=== PATIENT | female | born 1970 | race African-American/Black ===

== ENCOUNTER 2016-04-22 10:05 | Emergency (ER) | payer MEDICAID ==
[2016-04-22] MEDS ORDERED: OXYCODONE-ACETAMINOPHEN 5-325 MG TABLET PO ONE (11:41)
--- NOTE | 2016-04-22 11:43 | ER Document Report ---
HPI - HPI Patient complains to provider of: foot injury Onset: Other - 2 days ago Onset/Duration: Persistent Quality of pain: Sharp Pain Level: 5 Context: Patient states that she was playing around 2 days ago with family members and suspects that someone may have stepped on her foot. Patient states she had a bruise to her left great toe. Patient complains of pain with weightbearing. Associated Symptoms: Other - Left great toe pain Exacerbated by: Standing, Walking Relieved by: Denies Similar symptoms previously: No Recently seen / treated by doctor: No - ROS ROS below otherwise negative: Yes Systems Reviewed and Negative: Yes All other systems reviewed and negative - CONSTITUTIONAL Constitutional: DENIES: Fever, Chills - REPRODUCTIVE Reproductive: DENIES: : - MUSCULOSKELETAL Musculoskeletal: REPORTS: Extremity pain - Left great toe, Swelling - DERM Skin Color: Ecchymosis Past Medical History - General Information source: Patient - Social History Smoking Status: Never Smoker Frequency of alcohol use: Occasional Drug Abuse: None Occupation: none Lives with: Family Family History: Reviewed & Not Pertinent Patient has suicidal ideation: No Patient has homicidal ideation: No - Past Medical History Cardiac Medical History: Reports: Hx Congestive Heart Failure, Hx Heart Attack - 1-2 YRS AGO, Hx Hypercholesterolemia, Hx Hypertension - ON MEDS Pulmonary Medical History: Denies: Hx Asthma Neurological Medical History: Denies: Hx Cerebrovascular Accident, Hx Seizures Renal/ Medical History: Reports: Hx Renal Insufficiency. Denies: Hx Peritoneal Dialysis GI Medical History: Denies: Hx Hepatitis, Hx Hiatal Hernia, Hx Ulcer Psychiatric Medical History: Reports: Hx Anxiety, Hx Depression, Hx Schizophrenia Infectious Medical History: Denies: Hx Hepatitis Past Surgical History: Reports: Hx Cardiac Catheterization - multiple stents, Hx Cardiac Surgery - pacemaker, CABG, Hx Section, Hx Hysterectomy, Hx Open Heart Surgery - BYPASS 2006, Hx Pacemaker - X2, DEC 2013, Hx Tubal Ligation. Denies: Hx Mastectomy - Immunizations Hx Diphtheria, Pertussis, Tetanus Vaccination: Yes Hx Pneumococcal Vaccination: 04/04/12 Vertical Provider Document - CONSTITUTIONAL Agree With Documented VS: Yes Exam Limitations: No Limitations General Appearance: WD/WN, No Apparent Distress - INFECTION CONTROL TRAVEL OUTSIDE OF THE [place] IN LAST 30 DAYS: No - HEENT HEENT: Atraumatic, Normocephalic - NECK Neck: Normal Inspection - RESPIRATORY Respiratory: No Respiratory Distress O2 Sat by Pulse Oximetry: 97 - CARDIOVASCULAR Pulses: Normal: Dorsalis pedis - MUSCULOSKELETAL/EXTREMETIES Musculoskeletal/Extremeties: MAEW, Tender - Left great toe tenderness, left distal first metatarsal tenderness with 1+ edema and faint ecchymosis - NEURO Level of Consciousness: Awake, Alert, Appropriate Motor/Sensory: No Motor Deficit - DERM Integumentary: Warm, Dry Notes: Erythema involving left great toe Course - Vital Signs Vital signs: Temp Pulse Resp BP Pulse Ox 97.7 F 74 16 135/84 H 97 04/22/16 10:12 04/22/16 10:12 04/22/16 10:12 04/22/16 10:12 04/22/16 10:12 - Diagnostic Test Radiology reviewed: Image reviewed, Reports reviewed Procedures - Immobilization Left Foot Pre-Proc Neuro Vasc Exam: Normal Immobilizer type: Posterior ankle Performed by: PCT Post-Proc Neuro Vasc Exam: Normal Alignment checked and good: Yes Discharge - Discharge Clinical Impression: Fracture of proximal phalanx of toe of left foot Condition: Stable Disposition: HOME, SELF-CARE Instructions: Fractured Toe ([facility]), Splint Precautions ([facility]), Ice & Elevation ( [facility]), Use of Crutches ([facility]), Oral Narcotic Medication ([facility]) Additional Instructions: Return immediately for any new or worsening symptoms Followup with your primary care provider, call today to make a followup appointment, your primary doctor will need to make a referral to the orthopedic DrJessy for you. Follow up with orthopedic DrJessy for further evaluation, call tomorrow for an appointment Prescriptions: Oxycodone HCl/Acetaminophen [Percocet 5-325 mg Tablet] 1 tab PO ASDIR PRN #15 tablet PRN Reason: Referrals: YI SANCHEZ DO [Primary Care Provider] - Follow up tomorrow [facility] [Provider Group] - Follow up in 3-5 days
[2016-04-22 13:17] VITALS: BP 142/90
== END 2016-04-22 13:15 | disposition home or self-care (01) ==
LOC: ER 10:05
PROC: 2W3RX1Z Immobilization of Left Lower Leg using Splint (ICD-10-PCS; principal; 2016-04-22)
DX: S92.415A Nondisplaced fracture of proximal phalanx of left great toe, initial encounter for closed fracture (principal); X58.XXXA Exposure to other specified factors, initial encounter; I25.2 Old myocardial infarction; I10 Essential (primary) hypertension; Z98.61 Coronary angioplasty status; Z95.1 Presence of aortocoronary bypass graft
CPT/HCPCS: 99283

== ENCOUNTER 2016-10-17 08:01 | Emergency (ER) | payer MEDICAID ==
--- NOTE | 2016-10-17 08:33 | ER Document Report ---
ED Oral Problem - General Mode of Arrival: Ambulatory Information source: Patient TRAVEL OUTSIDE OF THE [place] IN LAST 30 DAYS: No - HPI Patient complains to provider of: Swelling of face, Toothache Onset: Other - Refer to HPI notes Context: Fractured tooth. denies: Recent antibiotic use Associated symptoms: Dental decay, Facial pain, Other - Facial swelling Similar symptoms previously: No Recently seen / treated by doctor/dentist: No - General Chief Complaint: Facial Swelling Stated Complaint: SWOLLEN FACE Time Seen by Provider: 10/17/16 08:35 - HPI Notes: Patient is a 45-year-old female presented emergency department for facial swelling. Patient states that she has some pain to her left upper jaw and teeth says she took a Tylenol and a muscle relaxer before bed. Patient states that she woke up this morning she had facial swelling and it was painful to move her mouth. Patient states that she also has a broken tooth to the left upper third molar. Patient states that she has a dentist, [facility], and she was last seen there 1 month ago. Patient states that since she has a cardiac history and they are awaiting approval for her to get dental work completed. (TADEO WOOD) - Related Data Allergies/Adverse Reactions: acetaminophen [From Vicodin] Allergy (Verified 10/17/16 08:05) egg [Egg] Allergy (Verified 10/17/16 08:05) hydrocodone [From Vicodin] Allergy (Verified 10/17/16 08:05) diphenhydramine HCl [From Benadryl] Adverse Reaction (Verified 10/17/16 08:05) chest pain, bigemeny rhythm Past Medical History - General Information source: Patient - Social History Smoking Status: Unknown if Ever Smoked Family History: None Patient has suicidal ideation: No Patient has homicidal ideation: No - Past Medical History Cardiac Medical History: Reports: Hx Congestive Heart Failure, Hx Heart Attack - 1-2 YRS AGO, Hx Hypercholesterolemia, Hx Hypertension - ON MEDS Renal/ Medical History: Reports: Hx Kidney Stones, Hx Renal Insufficiency Psychiatric Medical History: Reports: Hx Anxiety, Hx Depression, Hx Schizophrenia Past Surgical History: Reports: Hx Cardiac Catheterization - multiple stents, Hx Section, Hx Coronary Artery Bypass Graft - 2006, Hx Hysterectomy, Hx Pacemaker - , DEC 2013, Hx Tubal Ligation - Immunizations Hx Diphtheria, Pertussis, Tetanus Vaccination: Yes Hx Pneumococcal Vaccination: 04/04/12 Review of Systems - Review of Systems Constitutional: No symptoms reported EENT: See HPI, Mouth pain, Dental problem, Other - facial swelling Cardiovascular: No symptoms reported Respiratory: No symptoms reported Gastrointestinal: No symptoms reported Genitourinary: No symptoms reported Female Genitourinary: No symptoms reported Musculoskeletal: No symptoms reported Skin: No symptoms reported Hematologic/Lymphatic: No symptoms reported Neurological/Psychological: No symptoms reported -: Yes All other systems reviewed and negative Physical Exam - Vital signs Interpretation: Hypertensive - Vital signs Vitals: Temp Pulse Resp BP Pulse Ox 98.8 F 77 24 H 147/91 H 98 10/17/16 08:05 10/17/16 08:05 10/17/16 08:05 10/17/16 08:05 10/17/16 08:05 - Notes Notes: GENERAL: Alert, interacts well. Mild distress. HEAD: Normocephalic, atraumatic. Facial swelling and tenderness with palpation to the left maxillary facial region. No fluctuance or firmness. EYES: Appear normal. Pupils equal, round, and reactive to light. ENT: Moist mucus membranes, tongue midline. 1st, 2nd and 3rd left upper molars are tender with percussion. There is no sign of an abscess cavity. 3rd left upper molar is fractured with decay. There is no sign of abscess or drainable collection seen. NECK: Full range of motion. Supple. Trachea midline. LUNGS: No respiratory distress. HEART: Regular rate. EXTREMITIES: Moves all 4 extremities spontaneously. Normal strength. No edema. NEUROLOGICAL: Alert and oriented x3. Normal speech. No focal neurological deficits. GSC 15. PSYCH: Normal affect, normal mood. SKIN: Warm, dry, normal turgor. (EDGREN,TADEO) - Vital Signs Vital signs: Temp Pulse Resp BP Pulse Ox 98.2 F 77 17 140/90 H 96 10/17/16 09:00 10/17/16 08:05 10/17/16 08:51 10/17/16 08:52 10/17/16 08:52 Discharge - Discharge Clinical Impression: Dental decay, Toothache Condition: Stable Disposition: HOME, SELF-CARE Additional Instructions: Dental Infection or Abscess: You have an infection, perhaps an abscess (pus formation) of the gum around one of your teeth, which is probably decayed. If there is an abscess, it may drain on its own or it may need to be opened or lanced. Severe swelling or drainage around a tooth usually means a deep dental abscess which usually requires evaluation and treatment by a dentist or oral surgeon. Antibiotics may be prescribed while awaiting dental treatment. If you develop high fever with chills, worsening pain, or increasing swelling in the area, see a dentist or oral surgeon immediately or return to the Emergency Department immediately. TAKE THE MEDICATION PRESCRIBED. FOLLOW UP WITH YOUR DENTIST THIS WEEK. RETURN TO THE EMERGENCY ROOM IF ANY NEW OR WORSENING SYMPTOMS. Prescriptions: Oxycodone HCl/Acetaminophen [Percocet 5-325 mg Tablet] 1 tab PO ASDIR PRN #15 tablet PRN Reason: Penicillin V Potassium [Penicillin Vk 500 mg Tablet] 500 mg PO QID #28 tablet Scribe Attestation: 10/17/16 08:42 I personally performed the services described in the documentation, reviewed and edited the documentation which was dictated to the scribe in my presence, and it accurately records my words and actions. (PRATIBHA CARTY) Scribe Documentation - Scribe Written by Manuel:: Manuel Sky 10/17/2016 09:34 acting as scribe for :: Ron
[2016-10-17] MEDS ORDERED: PENICILLIN V POTASSIUM 500 MG TABLET PO ONE (08:38)
[2016-10-17] MEDS ORDERED: OXYCODONE-ACETAMINOPHEN 5-325 MG TABLET PO ONE (08:38)
[2016-10-17 09:03] VITALS: BP 140/90
== END 2016-10-17 09:00 | disposition home or self-care (01) ==
LOC: ER 08:01
DX: K02.9 Dental caries, unspecified (principal); K08.89 Other specified disorders of teeth and supporting structures; R22.0 Localized swelling, mass and lump, head; I25.2 Old myocardial infarction; I10 Essential (primary) hypertension; Z88.5 Allergy status to narcotic agent; Z91.012 Allergy to eggs
CPT/HCPCS: 99283; J3490

== ENCOUNTER → 2017-05-31 | Outpatient (CLI) | payer MEDICAID ==
--- NOTE | 2017-05-31 20:39 | RADIOLOGY REPORT (SQ) ---
EXAM DESCRIPTION: ANKLE RIGHT COMPLETE COMPLETED DATE/TIME: 05/31/2017 8:21 pm REASON FOR STUDY: ACUTE RIGHT ANKLE PAIN COMPARISON: None. NUMBER OF VIEWS: Three views. TECHNIQUE: AP, lateral, and oblique radiographic images acquired of the right ankle. LIMITATIONS: None. FINDINGS: MINERALIZATION: Normal. BONES: No acute fracture or dislocation. No worrisome bone lesions. JOINTS: No effusions. SOFT TISSUES: Soft tissue swelling. OTHER: No other significant finding. IMPRESSION: Soft tissue swelling. No acute fracture. TECHNICAL DOCUMENTATION: JOB ID: [id number] [employer]- All Rights Reserved Reading location - IP/workstation name: [email or web address]
== END ==
LOC: RAD 19:32
PROVIDERS: ATTEND Nurse Practitioner Family
DX: M25.571 Pain in right ankle and joints of right foot (principal); M79.89 Other specified soft tissue disorders

== ENCOUNTER 2017-06-19 06:46 | Emergency (ER) | payer MEDICAID ==
[2017-06-19] MEDS ORDERED: LORAZEPAM INJ 2 MG/1 ML VIAL ONE (06:52)
[2017-06-19] MEDS ORDERED: FUROSEMIDE INJ/PF 40 MG/4 ML SDV ONE ×2 (06:53→07:55)
[2017-06-19] MEDS ORDERED: IPRATROPIUM/ALBUTEROL 0.5-2.5 MG/3 ML AMPUL NEB ONE (06:53)
[2017-06-19] MEDS ORDERED: ETOMIDATE INJ/PF 20 MG/10 ML SDV IV ONE (07:00)
[2017-06-19] MEDS ORDERED: KETAMINE HCL INJ 500 MG/10 ML VIAL ONE (07:02)
[2017-06-19] MEDS ORDERED: AMIODARONE HCL INJ 150 MG/3 ML VIAL IV ONE ×2 (07:10→08:21)
[2017-06-19] MEDS ORDERED: FENTANYL CITRATE INJ/PF 100 MCG/2 ML AMPUL ONE ×3 (07:10→08:53)
[2017-06-19] MEDS ORDERED: PROPOFOL 100 ML IV ONE (07:45)
[2017-06-19] MEDS ORDERED: FUROSEMIDE INJ/PF 40 MG/4 ML SDV IV ONE (07:50)
[2017-06-19] MEDS ORDERED: ASPIRIN 300 MG SUPP, RECTAL PR ONE (07:54)
[2017-06-19] MEDS ORDERED: NITROGLYCERIN 2% OINTMENT 1 GM PACKET ONE (07:56)
[2017-06-19 08:03] LABS: ALANINE AMINOTRANSFERASE 81 U/L (9-52); ALBUMIN 4.7 g/dL (3.5-5.0); ALKALINE PHOSPHATASE 126 U/L (38-126); ANION GAP 19 (5-19); ASPARTATE AMINO TRANSFERASE 90 U/L (14-36); BILIRUBIN,DIRECT 0.6 mg/dL (0.0-0.4); BILIRUBIN,TOTAL 0.9 mg/dL (0.2-1.3); BLOOD UREA NITROGEN 21 mg/dL (7-20); CALCIUM 10.1 mg/dL (8.4-10.2); CARBON DIOXIDE 21 mmol/L (22-30); CHLORIDE 112 mmol/L (98-107); CREATINE KINASE 180 U/L (30-135); GLUCOSE 196 mg/dL (75-110); LIPASE 228.2 U/L (23-300); POTASSIUM 4.5 mmol/L (3.6-5.0); SODIUM 151.8 mmol/L (137-145); TOTAL PROTEIN 7.8 g/dL (6.3-8.2)
[2017-06-19 08:05] LABS: PROTHROMBIN TIME 13.7 SEC (11.4-15.4)
[2017-06-19 08:13] LABS: ABSOLUTE BASOPHILS # (AUTO) 0.1 10^3/uL (0.0-0.2); ABSOLUTE LYMPHOCYTES (AUTO) 5.4 10^3/uL (0.5-4.7); ABSOLUTE MONOCYTES (AUTO) 0.6 10^3/uL (0.1-1.4); ABSOLUTE NEUT (AUTO) 8.4 10^3/uL (1.7-8.2); BASOPHILS % (AUTO) 0.4 % (0-2); EOSINOPHILS % (AUTO) 0.2 % (0-6); HEMATOCRIT 43.4 % (36.0-47.0); HEMOGLOBIN 14.4 g/dL (12.0-15.5); LYMPHOCYTES % (AUTO) 37.3 % (13-45); MEAN CORPUSCULAR HEMOGLOBIN 32.2 pg (27.0-33.4); MEAN CORPUSCULAR HGB CONC 33.1 g/dL (32.0-36.0); MEAN CORPUSCULAR VOLUME 98 fl (80-97); MONOCYTES % (AUTO) 4.3 % (3-13); PLATELET COUNT 313 10^3/uL (150-450); RED BLOOD COUNT 4.46 10^6/uL (3.72-5.28); RED CELL DISTRIBUTION WIDTH 14.8 % (11.5-14.0); SEGMENTED NEUTROPHILS % (AUTO) 57.8 % (42-78); TOTAL CELLS COUNTED % (AUTO) 100 %; WHITE BLOOD COUNT 14.6 10^3/uL (4.0-10.5)
[2017-06-19 08:15] LABS: CREATINE KINASE MB 1.46 ng/mL (<4.55)
--- NOTE | 2017-06-19 08:15 | RADIOLOGY REPORT (SQ) ---
EXAM DESCRIPTION: CHEST SINGLE VIEW COMPLETED DATE/TIME: 06/19/2017 7:58 am REASON FOR STUDY: intubation COMPARISON: 10/28/2015 NUMBER OF VIEWS: One view. TECHNIQUE: Single frontal radiographic view of the chest acquired. LIMITATIONS: None. FINDINGS: LUNGS AND PLEURA: Diffuse interstitial and alveolar opacities with bilateral pleural effus ions. MEDIASTINUM AND HILAR STRUCTURES: No masses or contour abnormality. HEART AND VASCULATURE: Cardiac enlargement. Vascular congestion. BONES: No acute findings. HARDWARE: Patient is status post CABG with median sternotomy wires. Cardiac AICD in place. OTHER: No other significant finding. IMPRESSION: DIFFUSE INTERSTITIAL AND ALVEOLAR OPACITIES WITH BILATERAL PLEURAL EFFUSIONS PRESUMABLY REPRESENTS ASYMMETRIC PULMONARY EDEMA. MULTIFOCAL PNEUMONIA COULD HAVE A SIMILAR APPEARANCE. HIGH POSITION ENDOTRACHEAL TUBE 10 CM ABOVE THE AILYN. RECOMMEND ADVANCING AT LEAST 5 CM. TECHNICAL DOCUMENTATION: JOB ID: [id number] [employer]- All Rights Reserved Reading location - IP/workstation name: [email or web address]
[2017-06-19 08:17] LABS: TROPONIN I 0.051 ng/mL
--- NOTE | 2017-06-19 08:17 | RADIOLOGY REPORT (SQ) ---
EXAM DESCRIPTION: KUB/ABDOMEN (SINGLE VIEW) COMPLETED DATE/TIME: 06/19/2017 7:58 am REASON FOR STUDY: POST INTUBATION, NG TUBE PLACEMENT COMPARISON: 03/20/2013 NUMBER OF VIEWS: One view. TECHNIQUE: Supine radiographic image of the abdomen acquired. LIMITATIONS: LIMITED FIELD OF VIEW COVERING UPPER ABDOMEN. FINDINGS: Again seen are bilateral pleural effusions with associated airspace disease presumably rep resenting atelectasis. No nasogastric tube is visualized. Opacity of bowel gas. Soft tissue organ outlines are grossly normal as visualized. IMPRESSION: LIMITED FIELD OF VIEW OF THE UPPER ABDOMEN. A NASOGASTRIC TUBE IS NOT VISUALIZED. NEYDA AZAR WITH CLINICAL HISTORY AND PHYSICAL EXAM. TECHNICAL DOCUMENTATION: JOB ID: [id number] [employer]- All Rights Reserved Reading location - IP/workstation name: [email or web address]
--- NOTE | 2017-06-19 08:35 | RADIOLOGY REPORT (SQ) ---
EXAM DESCRIPTION: CHEST SINGLE VIEW COMPLETED DATE/TIME: 06/19/2017 8:23 am REASON FOR STUDY: NG PLACEMENT, ETT PLACEMENT COMPARISON: 06/19/2017 EXAM PARAMETERS: NUMBER OF VIEWS: One view. TECHNIQUE: Single frontal radiographic view of the chest acquired. RADIATION DOSE: NA LIMITATIONS: None. FINDINGS: LUNGS AND PLEURA: Stable diffuse interstitial and alveolar opacities with bilateral pleura l effusions. MEDIASTINUM AND HILAR STRUCTURES: Stable. HEART AND VASCULAR STRUCTURES: Stable. BONES: No acute findings. HARDWARE: Endotracheal tube remains at least 10 cm above the bruna. Nasogastric tube is coiled in t he oropharynx. OTHER: No other significant finding. IMPRESSION: STABLE DIFFUSE INTERSTITIAL ALVEOLAR OPACITIES WITH BILATERAL PLEURAL EFFUSIONS PRESUMAB LY REPRESENTING PULMONARY EDEMA. SUPERIMPOSED PNEUMONIA IS NOT EXCLUDED. ENDOTRACHEAL TUBE REMAINS HIGH. ADVANCEMENT IS AGAIN RECOMMENDED. NASOGASTRIC TUBE IS COILED IN THE OROPHARYNX. RECOMMEND REPLACEMENT. TECHNICAL DOCUMENTATION: JOB ID: [id number] [employer]- All Rights Reserved Reading location - IP/workstation name: [email or web address]
[2017-06-19] MEDS ORDERED: NOREPINEPHRINE BITARTRATE INJ/PF 4 MG/4 ML SDV IV ONE (08:52)
--- NOTE | 2017-06-19 09:26 | ER Document Report ---
ED General - General Chief Complaint: Shortness Of Breath Stated Complaint: OTHER Time Seen by Provider: 06/19/17 07:46 Mode of Arrival: Medic Information source: Patient Notes: 46-year-old female with a history of CHF, CAD requiring CABG, multiple stents, pacemaker and AICD presents via EMS with respiratory distress after experiencing a shock by her AICD. Patient states that she was having a bowel movement when she felt a shock. She called EMS who found the patient hypoxic, short of breath. Upon patient's arrival she is diaphoretic, uncooperative, combative. Patient admits to recent URI. TRAVEL OUTSIDE OF THE [place] IN LAST 30 DAYS: No - HPI Onset: Just prior to arrival Onset/Duration: Sudden - I would like a [place] Quality of pain: Pressure Severity: Moderate Associated symptoms: Shortness of breath, Sweating - Related Data Allergies/Adverse Reactions: acetaminophen [From Vicodin] Allergy (Verified 10/17/16 08:05) egg [Egg] Allergy (Verified 10/17/16 08:05) hydrocodone [From Vicodin] Allergy (Verified 10/17/16 08:05) diphenhydramine HCl [From Benadryl] Adverse Reaction (Verified 10/17/16 08:05) chest pain, bigemeny rhythm Past Medical History - General Information source: Patient, H Records - Social History Smoking Status: Unknown if Ever Smoked Frequency of alcohol use: Occasional Drug Abuse: Marijuana Lives with: Family Family History: None Patient has suicidal ideation: No Patient has homicidal ideation: No - Past Medical History Cardiac Medical History: Reports: Hx Congestive Heart Failure, Hx Heart Attack - 1-2 YRS AGO, Hx Hypercholesterolemia, Hx Hypertension - ON MEDS Pulmonary Medical History: Denies: Hx Asthma Neurological Medical History: Denies: Hx Cerebrovascular Accident, Hx Seizures Renal/ Medical History: Reports: Hx Kidney Stones, Hx Renal Insufficiency. Denies: Hx Peritoneal Dialysis GI Medical History: Denies: Hx Hepatitis, Hx Hiatal Hernia, Hx Ulcer Psychiatric Medical History: Reports: Hx Anxiety, Hx Depression, Hx Schizophrenia Infectious Medical History: Denies: Hx Hepatitis Past Surgical History: Reports: Hx Cardiac Catheterization - multiple stents, Hx Cardiac Surgery - pacemaker, CABG, Hx Section, Hx Coronary Artery Bypass Graft - 2006, Hx Hysterectomy, Hx Open Heart Surgery - BYPASS 2006, Hx Pacemaker - , DEC 2013, Hx Tubal Ligation. Denies: Hx Mastectomy - Immunizations Hx Diphtheria, Pertussis, Tetanus Vaccination: Yes Hx Pneumococcal Vaccination: 04/04/12 Review of Systems - Review of Systems Notes: Patient was in respiratory distress and diaphoretic upon arrival. Unable to complete full review of systems before patient required intubation. -: Yes ROS unobtainable due to patient's medical condition Constitutional: No symptoms reported EENT: No symptoms reported Cardiovascular: Chest pain Respiratory: Short of breath Gastrointestinal: No symptoms reported Genitourinary: No symptoms reported Female Genitourinary: No symptoms reported Musculoskeletal: No symptoms reported Skin: No symptoms reported Hematologic/Lymphatic: No symptoms reported Neurological/Psychological: No symptoms reported Physical Exam - Vital signs Vitals: Resp Pulse Ox 42 H 85 L 06/19/17 06:46 06/19/17 06:46 Interpretation: Normal, Hypertensive, Tachycardic - Notes Notes: PHYSICAL EXAMINATION: GENERAL: Diaphoretic, respiratory distress, combative, uncooperative. HEAD: Atraumatic, normocephalic. EYES: Pupils equal round and reactive to light, extraocular movements intact, conjunctiva are normal. ENT: Nares patent, oropharynx clear without exudates. Moist mucous membranes. NECK: Normal range of motion, supple without lymphadenopathy LUNGS: Diminished breath sounds with associated rales throughout all lung pena. HEART: Tachycardic. ABDOMEN: Soft, nontender, nondistended abdomen. No guarding, no rebound. No masses appreciated. Female : deferred Musculoskeletal: Normal range of motion, no pitting or edema. No cyanosis. NEUROLOGICAL: Cranial nerves grossly intact. Normal speech, normal gait. Normal sensory, motor exams PSYCH: Agitated, combative, uncooperative. SKIN: Diaphoretic Course - Re-evaluation Re-evalutation: Laboratory 06/19/17 06/19/17 06/19/17 06:52 06:52 06:52 WBC 14.6 H RBC 4.46 Hgb 14.4 Hct 43.4 MCV 98 H MCH 32.2 MCHC 33.1 RDW 14.8 H Plt Count 313 Seg Neutrophils % 57.8 Lymphocytes % 37.3 Monocytes % 4.3 Eosinophils % 0.2 Basophils % 0.4 Absolute Neutrophils 8.4 H Absolute Lymphocytes 5.4 H Absolute Monocytes 0.6 Absolute Eosinophils 0.0 Absolute Basophils 0.1 PT 13.7 Cancelled INR 1.00 Cancelled Sodium Potassium Chloride Carbon Dioxide Anion Gap BUN Creatinine Est GFR ( Amer) Est GFR (Non-Af Amer) Glucose Calcium Total Bilirubin Direct Bilirubin Neonat Total Bilirubin Neonat Direct Bilirubin Neonat Indirect Bili AST ALT Alkaline Phosphatase Creatine Kinase CK-MB (CK-2) Troponin I NT-Pro-B Natriuret Pep Total Protein Albumin Lipase Urine HCG, Qual 06/19/17 06/19/17 06/19/17 06:52 06:52 08:28 WBC RBC Hgb Hct MCV MCH MCHC RDW Plt Count Seg Neutrophils % Lymphocytes % Monocytes % Eosinophils % Basophils % Absolute Neutrophils Absolute Lymphocytes Absolute Monocytes Absolute Eosinophils Absolute Basophils PT INR Sodium 151.8 H Potassium 4.5 Chloride 112 H Carbon Dioxide 21 L Anion Gap 19 BUN 21 H Creatinine 1.43 H Est GFR ( Amer) 48 L Est GFR (Non-Af Amer) 40 L Glucose 196 H Calcium 10.1 Total Bilirubin 0.9 Direct Bilirubin 0.6 H Neonat Total Bilirubin Not Reportable Neonat Direct Bilirubin Not Reportable Neonat Indirect Bili Not Reportable AST 90 H ALT 81 H Alkaline Phosphatase 126 Creatine Kinase 180 H CK-MB (CK-2) 1.46 Troponin I 0.051 NT-Pro-B Natriuret Pep 2430 H Total Protein 7.8 Albumin 4.7 Lipase 228.2 Urine HCG, Qual NEGATIVE KUB X-Ray 06/19/17 00:00 IMPRESSION: LIMITED FIELD OF VIEW OF THE UPPER ABDOMEN. A NASOGASTRIC TUBE IS NOT VISUALIZED. CORRELATE WITH CLINICAL HISTORY AND PHYSICAL EXAM. Chest X-Ray 06/19/17 07:48 IMPRESSION: DIFFUSE INTERSTITIAL AND ALVEOLAR OPACITIES WITH BILATERAL PLEURAL EFFUSIONS PRESUMABLY REPRESENTS ASYMMETRIC PULMONARY EDEMA. MULTIFOCAL PNEUMONIA COULD HAVE A SIMILAR APPEARANCE. HIGH POSITION ENDOTRACHEAL TUBE 10 CM ABOVE THE AILYN. RECOMMEND ADVANCING AT LEAST 5 CM. 06/19/17 09:26 46-year-old female with history of congestive heart failure, coronary artery disease with a pacemaker and AICD presented via EMS after feeling her AICD fire while having a bowel movement this morning. Upon arrival patient is in respiratory distress, diaphoretic. She is uncooperative with exam and is agitated and requires multiple hands to get her back onto the stretcher. Patient was placed on tennis instructor where her rhythm showed a wide complex tachycardia at a rate of 168. Defib pads placed on the patient. 150 mg of amiodarone was administered. Patient's heart rate lowered to 110-120 after this. Patient unable to tolerate BiPAP. Intubation initiated and completed with glide scope, 7.5 ET tube. Patient was administered 200 mg of ketamine and 50 mg of rocuronium for RSI. Intubation sedation included propofol and intermittent fentanyl pushes. Lasix 80 mg was administered. Nitropaste was placed but patient had a dramatic decrease in blood pressure and this was then removed, and propofol drip decreased. X-ray showed ET tube required advancement which was done and repeat chest x-ray shows appropriate positioning. Patient had another dramatic drop in blood pressure at which point Levophed was started. Patient will be transferred to [facility]. Accepting physician is Dr. Mcintyre and Dr Doll. 06/19/17 10:30 Patient reevaluated prior to air transport. Report given to flight nurse. Patient's outgoing vitals include a heart rate of 74 and O2 saturation of 96% and a blood pressure of 90/60. - Vital Signs Vital signs: Temp Pulse Resp BP Pulse Ox 108 H 24 H 141/98 H 86 L 06/19/17 12:50 06/19/17 12:50 06/19/17 12:50 06/19/17 12:50 - Laboratory Result Diagrams: 06/19/17 06:52 06/19/17 06:52 Laboratory results interpreted by me: 06/19/17 06/19/17 06/19/17 06:52 06:52 06:52 WBC 14.6 H MCV 98 H RDW 14.8 H Absolute Neutrophils 8.4 H Absolute Lymphocytes 5.4 H Sodium 151.8 H Chloride 112 H Carbon Dioxide 21 L BUN 21 H Creatinine 1.43 H Est GFR ( Amer) 48 L Est GFR (Non-Af Amer) 40 L Glucose 196 H Direct Bilirubin 0.6 H AST 90 H ALT 81 H Creatine Kinase 180 H NT-Pro-B Natriuret Pep 2430 H - Diagnostic Test Radiology reviewed: Image reviewed, Reports reviewed - EKG Interpretation by Me Rate: Tachycardia Rhythm: V.Tach Procedures - Intubation Orotracheal Time of Intubation: 07:00 Airway evaluation: Normal anatomy Mallampati Classification: Class 2 Medications: Ketamine, Other - rocuronium Intubation method: Orotracheal Blade type: Other - MAC 3 glide Equipment used: Glidescope ETT size: 7.5 ETT secured at: Lips Breath Sounds after Intubation: Equal End tidal CO2 confirmed: No Ventilator settings: AC Tidal volume: 600 FiO2: 100 Respirations: 12 PEEP: 8 Post Intubation Xray: Yes Intubation Complications: No complications Critical Care Note - Critical Care Note Total time excluding time spent on procedures (mins): 60 - minutes of critical care time spent in direct contact evaluating and reevaluating the patient, treating symptoms, reviewing labs and studies and speaking with family and consultants excluding any procedures Discharge - Discharge Clinical Impression: Ventricular tachycardia, Elevated troponin, Acute on chronic systolic congestive heart failure Respiratory failure Qualifiers: Chronicity: acute Respiratory failure complication: hypoxia Qualified Code(s): J96.01 - Acute respiratory failure with hypoxia Pulmonary edema Qualifiers: Chronicity: acute Qualified Code(s): J81.0 - Acute pulmonary edema Condition: Critical Disposition: [facility]
--- NOTE | 2017-06-19 09:32 | EKG REPORT ---
SEVERITY:- ABNORMAL ECG - VENTRICULAR-PACED COMPLEXES LVH WITH IVCD, LAD AND SECONDARY REPOL ABNRM : Confirmed by: Verna Frederick 19-Jun-2017 09:31:49
--- NOTE | 2017-06-19 09:34 | EKG REPORT ---
SEVERITY:- ABNORMAL ECG - SINUS TACHYCARDIA VS A-FLUTTER W/ PREDOM 2:1 AV BLOCK VENTRICULAR PREMATURE COMPLEXES ABERRANT COMPLEX, POSSIBLY SUPRAVENTRICULAR INCOMPLETE LEFT BUNDLE BRANCH BLOCK ANTERIOR INFARCT, AGE INDETERMINATE : Confirmed by: Verna Frederick 19-Jun-2017 09:33:52
--- NOTE | 2017-06-19 09:42 | RADIOLOGY REPORT (SQ) ---
EXAM DESCRIPTION: CHEST SINGLE VIEW COMPLETED DATE/TIME: 06/19/2017 9:20 am REASON FOR STUDY: ETT AND NG TUBE ADJUSTMENT COMPARISON: None. EXAM PARAMETERS: NUMBER OF VIEWS: One view. TECHNIQUE: Single frontal radiographic view of the chest acquired. RADIATION DOSE: NA LIMITATIONS: None. FINDINGS: LUNGS AND PLEURA: Stable diffuse interstitial and alveolar opacities with bilateral pleura l effusions. MEDIASTINUM AND HILAR STRUCTURES: No masses. Contour normal. HEART AND VASCULAR STRUCTURES: Stable. BONES: No acute findings. HARDWARE: Interval advancement of endotracheal tube terminating approximately 5 cm above the bruna. Nasogastric tube now terminates within the expected location of the stomach. Hardware otherwise sta ble. OTHER: No other significant finding. IMPRESSION: SATISFACTORY POSITION OF ENDOTRACHEAL TUBE AND NASOGASTRIC TUBE ABOVE. OTHERWISE STA BLE APPEARANCE OF THE CHEST. TECHNICAL DOCUMENTATION: JOB ID: [id number] [employer]- All Rights Reserved Reading location - IP/workstation name: [email or web address]
[2017-06-19] MEDS ORDERED: ROCURONIUM BROMIDE INJ 50 MG/5 ML VIAL IV ONE ×2 (12:31→16:33)
[2017-06-19 12:51] VITALS: BP 141/98
[2017-06-19] MEDS ORDERED: DEXTROSE 5%-WATER 500 ML with AMIODARONE HCL 900 MG IV PRN ×2 (16:10)
== END 2017-06-19 10:57 | disposition short-term general hospital (02) ==
LOC: ER 06:46
DX: I11.0 Hypertensive heart disease with heart failure (principal); I50.23 Acute on chronic systolic (congestive) heart failure; J96.01 Acute respiratory failure with hypoxia; J81.0 Acute pulmonary edema; I47.2 Ventricular tachycardia; I25.10 Atherosclerotic heart disease of native coronary artery without angina pectoris; I25.2 Old myocardial infarction; F12.10 Cannabis abuse, uncomplicated; R74.8 Abnormal levels of other serum enzymes; Z95.1 Presence of aortocoronary bypass graft; Z98.61 Coronary angioplasty status; Z95.810 Presence of automatic (implantable) cardiac defibrillator; Z88.6 Allergy status to analgesic agent; Z91.012 Allergy to eggs; Z88.5 Allergy status to narcotic agent
CPT/HCPCS: 93005; 96376; 94640; 99291; 51702; 96375; 96365; 96366; 36415; 82553; 82962; 82550; 83690; 85025; 85610; 81025; 80053; 84484; 83880; 71045; 74018; 93010; 94660; 31500; J3490 ×4; J3010; J1940; J2704; J2060; J0282; J7620

== ENCOUNTER 2017-08-26 01:50 | Emergency (ER) | payer MEDICAID ==
[2017-08-26] MEDS ORDERED: FUROSEMIDE INJ/PF 40 MG/4 ML SDV ONE (01:56)
[2017-08-26] MEDS ORDERED: NITROGLYCERIN/D5W 50 MG/250 ML RTUINJ IV ONE (01:56)
[2017-08-26] MEDS ORDERED: PROPOFOL 1,000 MG/100 ML INFUS..BTL IV ONE ×2 (02:48→04:58)
[2017-08-26] MEDS: PROPOFOL 1,000 MG/100 ML INFUS..BTL IV PRN ×2 (02:55→03:32)
[2017-08-26 03:07] LABS: ARTERIAL BLOOD BASE EXCESS -11.4 mmol/L; ARTERIAL BLOOD H2CO3 1.36 mmol/L (1.05-1.35); ARTERIAL BLOOD HCO3 16.7 mmol/L (20-26); ARTERIAL BLOOD O2 SATURATION 89.2 % (94-98); ARTERIAL BLOOD PCO2 45.3 mmHg (35-45); ARTERIAL BLOOD PO2 68.6 mmHg (80-100); ARTERIAL BLOOD TOTAL CO2 18.1 mmol/L (21-25)
[2017-08-26 03:10] LABS: ARTERIAL BLOOD FIO2 100%
[2017-08-26 03:11] LABS: ARTERIAL BLOOD PH 7.18 (7.35-7.45)
[2017-08-26] MEDS ORDERED: SODIUM BICARBONATE 8.4% INJ 50 MEQ/50 ML DISP.SYRIN ONE (03:14)
[2017-08-26] MEDS: NITROGLYCERIN/D5W 50 MG/250 ML RTUINJ IV PRN ×2 (03:25→03:32)
[2017-08-26 03:32] LABS: HEMATOCRIT 40.9 % (36.0-47.0); HEMOGLOBIN 13.8 g/dL (12.0-15.5); MEAN CORPUSCULAR HEMOGLOBIN 32.1 pg (27.0-33.4); MEAN CORPUSCULAR HGB CONC 33.7 g/dL (32.0-36.0); MEAN CORPUSCULAR VOLUME 96 fl (80-97); PLATELET COUNT 391 10^3/uL (150-450); RED BLOOD COUNT 4.28 10^6/uL (3.72-5.28); RED CELL DISTRIBUTION WIDTH 14.6 % (11.5-14.0); WHITE BLOOD COUNT 21.2 10^3/uL (4.0-10.5)
--- NOTE | 2017-08-26 03:40 | RADIOLOGY REPORT (SQ) ---
EXAM DESCRIPTION: XR CHEST 1 VIEW COMPLETED DATE/TME: 08/26/2017 02:16 CLINICAL HISTORY: SOB COMPARISON: 06/19/2017 FINDINGS: Single frontal view of the chest. Prior median sternotomy. Left-sided pacemaker. Cardiomegaly. Right mid and lower lung airspace opacity. No definite pleural effusion. No pneumothorax. Endotracheal tube with tip 4 cm above the bruna. No acute osseous abnormalities. Upper abdominal soft tissues are unremarkable. IMPRESSION: 1. Endotracheal tube in appropriate position. 2. Right mid and lower lung airspace opacities concerning for pneumonia. Continued radiographic follow-up to resolution recommended. 3. Cardiomegaly.
[2017-08-26 03:49] LABS: ABSOLUTE LYMPHOCYTES# (MANUAL) 2.3 10^3/uL (0.5-4.7); ABSOLUTE MONOCYTES # (MANUAL) 0.4 10^3/uL (0.1-1.4); ABSOLUTE NEUTROPHILS# (MANUAL) 18.4 10^3/uL (1.7-8.2); BAND NEUTROPHILS % (MANUAL) 3 % (3-5); BASOPHILS % (MANUAL) 0 % (0-2); EOSINOPHILS % (MANUAL) 0 % (0-6); LYMPHOCYTES % (MANUAL) 8 % (13-45); MONOCYTES % (MANUAL) 2 % (3-13); SEGMENTED NEUTROPHILS % (MAN) 84 % (42-78); TOTAL CELLS COUNTED 100
[2017-08-26 03:52] LABS: ANISOCYTOSIS SLIGHT; POLYCHROMASIA SLIGHT; TOXIC GRANULATION SLIGHT; TOXIC VACUOLATION PRESENT
[2017-08-26 03:53] LABS: PLATELET CLUMPS PRESENT; PLATELET COMMENT ADEQUATE
--- NOTE | 2017-08-26 04:04 | RADIOLOGY REPORT (SQ) ---
EXAM DESCRIPTION: XR CHEST 1 VIEW COMPLETED DATE/TME: 08/26/2017 03:31 CLINICAL HISTORY: Post central line COMPARISON: 08/26/2017 FINDINGS: Single frontal view of the chest. Right IJ central venous catheter with tip in the SVC. Left-sided pacemaker. Endotracheal tube stable. Cardiomegaly. Prior median sternotomy. Confluent right mid and lower lung airspace opacity. Left retrocardiac airspace opacity. Possible small right pleural effusion. No pneumothorax. No acute osseous abnormalities. Upper abdominal soft tissues are unremarkable. IMPRESSION: 1. Right IJ central venous catheter and endotracheal tube in appropriate position. No right-sided pneumothorax. 2. Cardiomegaly. 3. Bilateral airspace opacities stable.
[2017-08-26] MEDS ORDERED: DOPAMINE HCL/DEXTROSE 5%-WATER 800 MG/250 ML RTUINJ IV ONE (04:12)
[2017-08-26 04:22] LABS: ARTERIAL BLOOD FIO2 100%; ARTERIAL BLOOD H2CO3 1.51 mmol/L (1.05-1.35); ARTERIAL BLOOD HCO3 23.2 mmol/L (20-26); ARTERIAL BLOOD O2 SATURATION 85.4 % (94-98); ARTERIAL BLOOD PCO2 50.3 mmHg (35-45); ARTERIAL BLOOD PH 7.28 (7.35-7.45); ARTERIAL BLOOD PO2 56.3 mmHg (80-100); ARTERIAL BLOOD TOTAL CO2 24.7 mmol/L (21-25)
[2017-08-26] MEDS ORDERED: DOPAMINE HCL/DEXTROSE 5%-WATER 800 MG/250 ML RTUINJ IV PRN (04:22)
[2017-08-26] MEDS ORDERED: METOCLOPRAMIDE HCL INJ/PF 10 MG/2 ML SDV IV ONE ×2 (04:22→06:59)
[2017-08-26] MEDS ORDERED: ONDANSETRON HCL INJ/PF 4 MG/2 ML SDV IV ONE (04:22)
[2017-08-26] MEDS ORDERED: METOCLOPRAMIDE HCL INJ/PF 10 MG/2 ML SDV ONE (04:23)
[2017-08-26 04:24] LABS: CREATINE KINASE MB 4.63 ng/mL (<4.55)
[2017-08-26 04:28] LABS: TROPONIN I 0.253 ng/mL
[2017-08-26] MEDS ORDERED: MIDAZOLAM 2 MG/2 ML INJ ONE (04:32)
[2017-08-26] MEDS ORDERED: MIDAZOLAM HCL 50 MG/100 ML RTUINJ ONE (04:34)
[2017-08-26 04:41] LABS: APPEARANCE,URINE CLEAR; BILIRUBIN,URINE NEGATIVE (NEGATIVE); COLOR,URINE STRAW; GLUCOSE, URINE 150 mg/dL (NEGATIVE); KETONES,URINE NEGATIVE (NEGATIVE); LEUKOCYTE ESTERASE,URINE NEGATIVE (NEGATIVE); NITRITE,URINE NEGATIVE (NEGATIVE); PROTEIN,URINE 30 mg/dL (NEGATIVE); URINE SPECIFIC GRAVITY 1.006; UROBILINOGEN,URINE NEGATIVE mg/dL (<2.0)
--- NOTE | 2017-08-26 04:51 | ER Document Report ---
ED General - General Chief Complaint: Respiratory Distress Stated Complaint: SHORT OF BREATH Time Seen by Provider: 08/26/17 02:16 Mode of Arrival: Wheelchair Information source: Patient Notes: Chief complaint: Difficulty in breathing History of complain:( obtained from----patient) 46 years old female who was discharged from the hospital recently went home and drank a lot of water, started having difficulty in breathing towards the midnight, became diaphoretic therefore came to the ER. And she was ruled in from the front to the trauma unit. She states she cannot breathe at all she needed help. She was put on BiPAP and managed for a few minutes and could not tolerate it therefore she was intubated. Onset: Sudden onset Duration: Last few hours Severity: Severe Quality: Unknown difficulty in breathing Context: CHF Exacerbating factor and relieving factors: Minimal exertion REVIEW OF SYSTEMS: CONSTITUTIONAL : Denies fever, chills, or sweats. Denies recent illness. EENT: Denies eye, ear, throat, or mouth pain or symptoms. Denies nasal or sinus congestion or discharge. Denies throat, tongue, or mouth swelling or difficulty swallowing. CARDIOVASCULAR: Denies chest pain. Denies palpitations or racing or irregular heart beat. Denies ankle edema. RESPIRATORY: . GASTROINTESTINAL: Denies distention. Denies nausea, vomiting, or diarrhea. Denies blood in vomitus, stools, or per rectum. Denies black, tarry stools. Denies constipation. GENITOURINARY: Denies difficulty urinating, painful urination, burning, frequency, blood in urine, or discharge. FEMALE GENITOURINARY: Denies vaginal bleeding, heavy or abnormal periods, irregular periods. Denies vaginal discharge or odor. MUSCULOSKELETAL: Denies back or neck pain or stiffness. Denies joint pain or swelling. SKIN: Denies rash, lesions or sores. HEMATOLOGIC : Denies easy bruising or bleeding. LYMPHATIC: Denies swollen, enlarged glands. NEUROLOGICAL: Denies confusion or altered mental status. Denies passing out or loss of consciousness. Denies dizziness or lightheadedness. Denies headache. Denies weakness or paralysis or loss of use of either side. Denies problems with gait or speech. Denies sensory loss, numbness, or tingling. Denies seizures. PSYCHIATRIC: Denies anxiety or stress. Denies depression, suicidal ideation, or homicidal ideation. ALL OTHER SYSTEMS REVIEWED AND NEGATIVE. PHYSICAL EXAMINATION: Tachypneic tachycardic and impending respiratory failure, diaphoretic HEAD: Atraumatic, normocephalic. EYES: Pupils equal round and reactive to light, extraocular movements intact, conjunctiva are normal. ENT: Nares patent, oropharynx clear without exudates. Moist mucous membranes. NECK: Normal range of motion, supple without lymphadenopathy LUNGS: Bilateral diffuse rales throughout the whole lung field HEART: Regular rate and rhythm without murmurs ABDOMEN: Soft, nontender, nondistended abdomen. No guarding, no rebound. No masses appreciated. Examination of genitals-deferred Musculoskeletal: Normal range of motion, no pitting or edema. No cyanosis. NEUROLOGICAL: Cranial nerves grossly intact. Normal speech, normal gait. Normal sensory, motor exams PSYCH: Normal mood, normal affect. SKIN: Warm, Dry, normal turgor, no rashes or lesions noted. Dictation was performed using [employer] voice recognition software TRAVEL OUTSIDE OF THE [place] IN LAST 30 DAYS: No - Related Data Allergies/Adverse Reactions: acetaminophen [From Vicodin] Allergy (Verified 08/26/17 01:55) egg [Egg] Allergy (Verified 08/26/17 01:55) hydrocodone [From Vicodin] Allergy (Verified 08/26/17 01:55) diphenhydramine HCl [From Benadryl] Adverse Reaction (Verified 08/26/17 01:55) chest pain, bigemeny rhythm Past Medical History - Social History Smoking Status: Former Smoker Cigarette use (# per day): No Chew tobacco use (# tins/day): No Frequency of alcohol use: None Lives with: Family Family History: None, Reviewed & Not Pertinent - Past Medical History Cardiac Medical History: Reports: Hx Congestive Heart Failure, Hx Heart Attack - 1-2 YRS AGO, Hx Hypercholesterolemia, Hx Hypertension - ON MEDS Pulmonary Medical History: Denies: Hx Asthma Neurological Medical History: Denies: Hx Cerebrovascular Accident, Hx Seizures Renal/ Medical History: Reports: Hx Kidney Stones, Hx Renal Insufficiency. Denies: Hx Peritoneal Dialysis GI Medical History: Denies: Hx Hepatitis, Hx Hiatal Hernia, Hx Ulcer Psychiatric Medical History: Reports: Hx Anxiety, Hx Depression, Hx Schizophrenia Infectious Medical History: Denies: Hx Hepatitis Past Surgical History: Reports: Hx Cardiac Catheterization - multiple stents, Hx Cardiac Surgery - pacemaker, CABG, Hx Section, Hx Coronary Artery Bypass Graft - 2006, Hx Hysterectomy, Hx Open Heart Surgery - BYPASS 2006, Hx Pacemaker - X2, DEC 2013, Hx Tubal Ligation. Denies: Hx Mastectomy - Immunizations Hx Diphtheria, Pertussis, Tetanus Vaccination: Yes Hx Pneumococcal Vaccination: 04/04/12 Review of Systems - Review of Systems Notes: Dictated Physical Exam - Vital signs Vitals: Temp Pulse Resp BP Pulse Ox 98.5 F 103 H 40 H 146/125 H 55 L 08/26/17 01:54 08/26/17 01:54 08/26/17 01:54 08/26/17 01:54 08/26/17 01:54 - Notes Notes: Dictated Course - Vital Signs Vital signs: Temp Pulse Resp BP Pulse Ox 100.9 F H 103 H 24 H 113/80 90 L 08/26/17 04:01 08/26/17 01:54 08/26/17 04:01 08/26/17 04:01 08/26/17 04:01 - Laboratory Result Diagrams: 08/26/17 03:21 08/26/17 03:52 Laboratory results interpreted by me: 08/26/17 08/26/17 08/26/17 02:40 03:21 03:40 WBC 21.2 H RDW 14.6 H Seg Neuts % (Manual) 84 H Lymphocytes % (Manual) 8 L Monocytes % (Manual) 2 L Abs Neuts (Manual) 18.4 H Carbonic Acid 1.36 H 1.51 H ABG pH 7.18 L* 7.28 L ABG pCO2 45.3 H 50.3 H ABG pO2 68.6 L 56.3 L ABG HCO3 16.7 L ABG Total CO2 18.1 L ABG O2 Saturation 89.2 L 85.4 L CK-MB (CK-2) NT-Pro-B Natriuret Pep Urine Protein Urine Glucose (UA) Urine Blood 08/26/17 08/26/17 03:49 03:52 WBC RDW Seg Neuts % (Manual) Lymphocytes % (Manual) Monocytes % (Manual) Abs Neuts (Manual) Carbonic Acid ABG pH ABG pCO2 ABG pO2 ABG HCO3 ABG Total CO2 ABG O2 Saturation CK-MB (CK-2) 4.63 H NT-Pro-B Natriuret Pep 3740 H Urine Protein 30 H Urine Glucose (UA) 150 H Urine Blood SMALL H - Diagnostic Test Radiology reviewed: Reports reviewed - Acute pulmonary edema - EKG Interpretation by Me Rate: Tachycardia - Paced rhythm at the rate of 112 bpm Procedures - Central Line Right Internal jugular Time completed: 04:15 Consent obtained: No - Emergent procedure Central line pre-insertion: Sterile PPE donned, Betadine prep applied, Chloraprep applied Central line lumen type: Triple Anesthetic type: 1% Lidocaine Ultrasound guided: No Line secured with sutures: Yes Central line post-insertion: Blood return from lumens, Biopatch applied, Sutured , Sterile dressing applied, Position confirmed w/ CXR - Intubation Orotracheal Time of Intubation: 04:05 Airway evaluation: Normal anatomy Mallampati Classification: Class 1 Medications: Etomidate, Versed, Pancuronium Blade type: Lilian Blade size: 4 ETT size: 8.0 ETT secured at: Teeth ETT secured at (cm): 25 Breath Sounds after Intubation: Equal End tidal CO2 confirmed: Yes Ventilator settings: CMV Critical Care Note - Critical Care Note Total time excluding time spent on procedures (mins): 90 Comments: Acute pulmonary edema Discharge - Discharge Clinical Impression: Acute pulmonary edema Respiratory failure Qualifiers: Chronicity: acute Respiratory failure complication: hypercapnia Qualified Code( s): J96.02 - Acute respiratory failure with hypercapnia Condition: Critical Disposition: [facility] [place] Referrals: YI SANCHEZ DO [Primary Care Provider] - Follow up as needed
[2017-08-26] MEDS ORDERED: MIDAZOLAM HCL 50 MG/100 ML RTUINJ IV PRN (04:55)
[2017-08-26 05:00] LABS: ALANINE AMINOTRANSFERASE 30 U/L (9-52); ALKALINE PHOSPHATASE 87 U/L (38-126); ASPARTATE AMINO TRANSFERASE 47 U/L (14-36); BILIRUBIN,DIRECT 0.7 mg/dL (0.0-0.4); BILIRUBIN,TOTAL 1.1 mg/dL (0.2-1.3); BLOOD UREA NITROGEN 18 mg/dL (7-20); CALCIUM 9.6 mg/dL (8.4-10.2); CARBON DIOXIDE 18 mmol/L (22-30); CHLORIDE 108 mmol/L (98-107); CREATINE KINASE 207 U/L (30-135); GLUCOSE 193 mg/dL (75-110); POTASSIUM 3.2 mmol/L (3.6-5.0); SODIUM 151.6 mmol/L (137-145); TOTAL PROTEIN 9.1 g/dL (6.3-8.2)
[2017-08-26 05:07] LABS: ANION GAP 26 (5-19)
[2017-08-26] MEDS ORDERED: FENTANYL CITRATE INJ/PF 100 MCG/2 ML AMPUL ONE (05:32)
[2017-08-26 06:16] VITALS: BP 106/84
[2017-08-26] MEDS ORDERED: SODIUM BICARBONATE 8.4% INJ 50 MEQ/50 ML DISP.SYRIN IV ONE (06:49)
[2017-08-26] MEDS ORDERED: FUROSEMIDE INJ/PF 40 MG/4 ML SDV IV ONE (06:50)
[2017-08-26] MEDS ORDERED: MIDAZOLAM 2 MG/2 ML INJ IV ONE (06:53)
[2017-08-26] MEDS ORDERED: ROCURONIUM BROMIDE INJ 50 MG/5 ML VIAL IV ONE ×2 (07:37→08:48)
[2017-08-26] MEDS ORDERED: ETOMIDATE INJ/PF 20 MG/10 ML SDV IV ONE (07:38)
--- NOTE | 2017-08-27 00:18 | EKG REPORT ---
SEVERITY:- ABNORMAL ECG - ATRIAL-SENSED VENTRICULAR-PACED RHYTHM : Confirmed by: Griselda Martin MD 27-Aug-2017 00:17:54
== END 2017-08-26 06:15 | disposition short-term general hospital (02) ==
LOC: ER 01:50
PROC: 05HM33Z Insertion of Infusion Device into Right Internal Jugular Vein, Percutaneous Approach (ICD-10-PCS; principal; 2017-08-26)
PROC: 0BH17EZ Insertion of Endotracheal Airway into Trachea, Via Natural or Artificial Opening (ICD-10-PCS; 2017-08-26)
DX: J81.0 Acute pulmonary edema (principal); J96.02 Acute respiratory failure with hypercapnia; Z88.6 Allergy status to analgesic agent; Z91.012 Allergy to eggs; I50.9 Heart failure, unspecified; I25.2 Old myocardial infarction; E78.00 Pure hypercholesterolemia, unspecified; I11.0 Hypertensive heart disease with heart failure; Z87.442 Personal history of urinary calculi; Z95.0 Presence of cardiac pacemaker; Z90.710 Acquired absence of both cervix and uterus; Z95.1 Presence of aortocoronary bypass graft
CPT/HCPCS: 93005; 99291; 99292; 96375; 96365; 36415; 82553; 82803; 82550; 85025; 80053; 81001; 84484; 83880; 71045; 94660; 93010; 36600; 36556; 31500; C1751; J2250 ×2; J3490 ×3; J3010; J1940; J2704; J2765

== ENCOUNTER 2018-04-14 10:34 | Inpatient (IN) | payer MEDICAID ==
[2018-04-14 11:39] LABS: ABSOLUTE BASOPHILS # (AUTO) 0.1 10^3/uL (0.0-0.2); ABSOLUTE LYMPHOCYTES (AUTO) 1.6 10^3/uL (0.5-4.7); ABSOLUTE MONOCYTES (AUTO) 0.5 10^3/uL (0.1-1.4); ABSOLUTE NEUT (AUTO) 4.2 10^3/uL (1.7-8.2); BASOPHILS % (AUTO) 1.2 % (0-2); EOSINOPHILS % (AUTO) 0.2 % (0-6); HEMATOCRIT 38.2 % (36.0-47.0); HEMOGLOBIN 12.8 g/dL (12.0-15.5); MEAN CORPUSCULAR HEMOGLOBIN 31.3 pg (27.0-33.4); MEAN CORPUSCULAR HGB CONC 33.4 g/dL (32.0-36.0); MEAN CORPUSCULAR VOLUME 94 fl (80-97); MONOCYTES % (AUTO) 7.3 % (3-13); PLATELET COUNT 295 10^3/uL (150-450); RED BLOOD COUNT 4.08 10^6/uL (3.72-5.28); RED CELL DISTRIBUTION WIDTH 15.9 % (11.5-14.0); SEGMENTED NEUTROPHILS % (AUTO) 66.3 % (42-78); TOTAL CELLS COUNTED % (AUTO) 100 %; WHITE BLOOD COUNT 6.3 10^3/uL (4.0-10.5)
[2018-04-14 11:52] LABS: INTERNATIONAL RATION (INR) 1.08; PROTHROMBIN TIME 14.6 SEC (11.4-15.4)
--- NOTE | 2018-04-14 11:53 | RADIOLOGY REPORT (SQ) ---
EXAM DESCRIPTION: CHEST SINGLE VIEW COMPLETED DATE/TIME: 04/14/2018 11:41 am REASON FOR STUDY: sob COMPARISON: None. EXAM PARAMETERS: NUMBER OF VIEWS: One view. TECHNIQUE: Single frontal radiographic view of the chest acquired. RADIATION DOSE: NA LIMITATIONS: None. FINDINGS: LUNGS AND PLEURA: Faint markings right lower lung zone. Infiltrate versus other asymmetri tristin pulmonary vascular congestion. No natasha pulmonary edema. MEDIASTINUM AND HILAR STRUCTURES: No masses. Contour normal. HEART AND VASCULAR STRUCTURES: Heart normal in size. Normal vasculature. BONES: No acute findings. HARDWARE: None in the chest. OTHER: No other significant finding. IMPRESSION: Few faint markings right lower lung zone. Asymmetrical vascular congestion versus infil trate. Lungs otherwise clear. TECHNICAL DOCUMENTATION: JOB ID: [id number] [employer]- All Rights Reserved Reading location - IP/workstation name: [email or web address]
[2018-04-14] MEDS ORDERED: LIDOCAINE 1% INJ-PF (10 MG/ML) 30 ML SDV NEB ONE (11:58)
[2018-04-14] MEDS ORDERED: FUROSEMIDE INJ/PF 40 MG/4 ML SDV IV ONE (11:58)
[2018-04-14 12:01] LABS: ALANINE AMINOTRANSFERASE 46 U/L (9-52); ALBUMIN 4.4 g/dL (3.5-5.0); ALKALINE PHOSPHATASE 96 U/L (38-126); ANION GAP 9 (5-19); ASPARTATE AMINO TRANSFERASE 59 U/L (14-36); BILIRUBIN,DIRECT 0.3 mg/dL (0.0-0.4); BILIRUBIN,TOTAL 1.3 mg/dL (0.2-1.3); BLOOD UREA NITROGEN 13 mg/dL (7-20); CALCIUM 9.5 mg/dL (8.4-10.2); CARBON DIOXIDE 26 mmol/L (22-30); CHLORIDE 111 mmol/L (98-107); CREATINE KINASE 106 U/L (30-135); GLUCOSE 98 mg/dL (75-110); POTASSIUM 3.9 mmol/L (3.6-5.0); SODIUM 146.3 mmol/L (137-145); TOTAL PROTEIN 7.5 g/dL (6.3-8.2)
[2018-04-14 12:12] LABS: CREATINE KINASE MB 1.16 ng/mL (<4.55)
[2018-04-14 12:14] LABS: TROPONIN I 0.038 ng/mL
[2018-04-14 13:35] LABS: A TYPE INFLUENZA AG NEGATIVE (NEGATIVE); B INFLUENZA AG NEGATIVE (NEGATIVE)
--- NOTE | 2018-04-14 14:35 | ER Document Report ---
ED General - General Chief Complaint: Shortness Of Breath Stated Complaint: SHORTNESS OF BREATH Time Seen by Provider: 04/14/18 11:16 TRAVEL OUTSIDE OF THE [place] IN LAST 30 DAYS: No - HPI Patient complains to provider of: Shortness of breath Notes: Patient coming in for evaluation of shortness of breath. Patient has a history of CHF history of dilated cardiomyopathy with multiple MIs in the past with AICD. Patient states no firing of AICD coming in for increased shortness of breath or last 48 hours with orthopnea and dyspnea on exertion and swelling in her legs. Patient states compliance with her medication compliance with diet patient states achy all over the productive cough. Patient resting comfortably upon my evaluation. Slightly tachypneic - Related Data Allergies/Adverse Reactions: acetaminophen [From Vicodin] Allergy (Verified 08/26/17 01:55) egg [Egg] Allergy (Verified 08/26/17 01:55) hydrocodone [From Vicodin] Allergy (Verified 08/26/17 01:55) diphenhydramine HCl [From Benadryl] Adverse Reaction (Verified 08/26/17 01:55) chest pain, bigemeny rhythm Past Medical History - Social History Smoking Status: Former Smoker Chew tobacco use (# tins/day): No Frequency of alcohol use: None Drug Abuse: Marijuana Family History: None, Reviewed & Not Pertinent Patient has suicidal ideation: No Patient has homicidal ideation: No - Past Medical History Cardiac Medical History: Reports: Hx Congestive Heart Failure, Hx Heart Attack - 1-2 YRS AGO, Hx Hypercholesterolemia, Hx Hypertension - ON MEDS Pulmonary Medical History: Reports: Hx COPD Denies: Hx Asthma Neurological Medical History: Denies: Hx Cerebrovascular Accident, Hx Seizures Renal/ Medical History: Reports: Hx Kidney Stones, Hx Renal Insufficiency. Denies: Hx Peritoneal Dialysis GI Medical History: Denies: Hx Hepatitis, Hx Hiatal Hernia, Hx Ulcer Psychiatric Medical History: Reports: Hx Anxiety, Hx Depression, Hx Schizophrenia Infectious Medical History: Denies: Hx Hepatitis Past Surgical History: Reports: Hx Cardiac Catheterization - multiple stents, Hx Cardiac Surgery - pacemaker, CABG, Hx Section, Hx Coronary Artery Bypass Graft - 2006, Hx Hysterectomy, Hx Open Heart Surgery - BYPASS 2006, Hx Pacemaker - , DEC 2013, Hx Tubal Ligation. Denies: Hx Mastectomy - Immunizations Hx Diphtheria, Pertussis, Tetanus Vaccination: Yes Hx Pneumococcal Vaccination: 04/04/12 Review of Systems - Review of Systems Constitutional: No symptoms reported EENT: No symptoms reported Cardiovascular: No symptoms reported Respiratory: Cough, Short of breath Gastrointestinal: No symptoms reported Genitourinary: No symptoms reported Female Genitourinary: No symptoms reported Musculoskeletal: No symptoms reported Skin: No symptoms reported Hematologic/Lymphatic: No symptoms reported Neurological/Psychological: No symptoms reported -: Yes All other systems reviewed and negative Physical Exam - Vital signs Vitals: Temp Pulse Resp BP Pulse Ox 98.8 F 61 17 144/94 H 91 L 04/14/18 10:57 04/14/18 10:57 04/14/18 10:57 04/14/18 10:57 04/14/18 10:57 Interpretation: Normal - General General appearance: Appears well, Alert - HEENT Head: Normocephalic, Atraumatic Eyes: Normal Pupils: PERRL Notes: No JVD no hepatojugular reflux - Respiratory Respiratory status: No respiratory distress Chest status: Nontender Breath sounds: Normal Chest palpation: Normal - Cardiovascular Rhythm: Regular Heart sounds: Normal auscultation Murmur: No - Abdominal Inspection: Normal Distension: No distension Bowel sounds: Normal Tenderness: Nontender Organomegaly: No organomegaly - Back Back: Normal, Nontender - Extremities General upper extremity: Normal inspection, Nontender, Normal color, Normal ROM, Normal temperature General lower extremity: Normal inspection, Nontender, Normal color, Normal ROM, Normal temperature, Normal weight bearing. No: Roman's sign - Neurological Neuro grossly intact: Yes Cognition: Normal Orientation: AAOx4 [place] Coma Scale Eye Opening: Spontaneous [place] Coma Scale Verbal: Oriented Jorge Coma Scale Motor: Obeys Commands [place] Coma Scale Total: 15 Speech: Normal Motor strength normal: LUE, RUE, LLE, RLE Sensory: Normal - Psychological Associated symptoms: Normal affect, Normal mood - Skin Skin Temperature: Warm Skin Moisture: Dry Skin Color: Normal Course - Re-evaluation Re-evalutation: 04/14/18 16:11 Patient possible slight CHF exacerbation with cephalization of vessels on the chest x-ray per my interpretation. More consistent with asymmetrical edema did not think patient has any underlying pneumonia will continue with Lasix patient continued to have to increase her oxygen demand here in ER will admit the patient for further evaluation. - Vital Signs Vital signs: Temp Pulse Resp BP Pulse Ox 98.8 F 61 18 143/90 H 88 L 04/14/18 10:57 04/14/18 10:57 04/14/18 13:00 04/14/18 12:01 04/14/18 13:00 - Laboratory Result Diagrams: 04/14/18 11:30 04/14/18 11:30 Laboratory results interpreted by me: 04/14/18 04/14/18 04/14/18 11:30 11:30 11:30 RDW 15.9 H Sodium 146.3 H Chloride 111 H Est GFR ( Amer) 57 L Est GFR (Non-Af Amer) 47 L AST 59 H NT-Pro-B Natriuret Pep 2550 H Discharge - Discharge Clinical Impression: CHF exacerbation, Hypernatremia Condition: Good Disposition: ADMITTED INPATIENT Admitting Provider: Hospitalist - Liliana/lana Unit Admitted: Telemetry
[2018-04-14] MEDS ORDERED: ACETAMINOPHEN 325 MG TABLET PO PRN (15:00)
[2018-04-14] MEDS ORDERED: ONDANSETRON 4 MG TAB.RAPDIS PO PRN (15:00)
[2018-04-14] MEDS ORDERED: MAG HYDROX/AL HYDROX/SIMETH SUSP 30 ML UDCUP PO PRN (15:00)
[2018-04-14] MEDS ORDERED: MAGNESIUM HYDROXIDE SUSP 30 ML UDCUP PO PRN (15:00)
[2018-04-14 16:29] LABS: URINE AMPHETAMINES SCREEN NEGATIVE; URINE BARBITURATES SCREEN NEGATIVE; URINE BENZODIAZEPINES SCREEN NEGATIVE; URINE COCAINE SCREEN NEGATIVE; URINE MARIJUANA (THC) SCREEN UNCONFIRMED POSITIVE; URINE METHADONE SCREEN NEGATIVE; URINE PHENCYCLIDINE SCREEN NEGATIVE
[2018-04-14] MEDS ORDERED: LEVALBUTEROL HCL NEB 1.25 MG/3 ML AMPUL NEB PRN (16:47)
[2018-04-14] MEDS ORDERED: KETOROLAC TROMETHAMINE INJ/PF 30 MG/1 ML SDV IV PRN (17:03)
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
[2018-04-14] MEDS: APIXABAN 5 MG TABLET PO SCH (17:45)
[2018-04-14] MEDS: LISINOPRIL 10 MG TABLET PO SCH (19:32)
[2018-04-14] MEDS: IPRATROPIUM/ALBUTEROL 0.5-2.5 MG/3 ML AMPUL NEB SCH (20:35)
--- NOTE | 2018-04-14 21:19 | EKG REPORT ---
SEVERITY:- ABNORMAL ECG - A-V DUAL-PACED RHYTHM WITH SOME INHIBITION : Confirmed by: Griselda Martin MD 14-Apr-2018 21:18:40
[2018-04-14] MEDS: FAMOTIDINE 20 MG TABLET PO SCH (21:24)
[2018-04-14] MEDS: MELATONIN 5 MG TABLET PO SCH (21:24)
[2018-04-14] MEDS: FUROSEMIDE INJ/PF 40 MG/4 ML SDV IV SCH (21:24)
[2018-04-14] MEDS ORDERED: MELATONIN 1 MG TABLET PO SCH (22:00)
[2018-04-14] MEDS ORDERED: FUROSEMIDE INJ/PF 20 MG/2 ML SDV IV SCH (22:00)
[2018-04-14] MEDS ORDERED: CARVEDILOL 3.125 MG TABLET PO SCH (22:00)
[2018-04-14] MEDS ORDERED: ATORVASTATIN CALCIUM 20 MG TABLET PO SCH (22:00)
[2018-04-14] MEDS ORDERED: HEPARIN SOD (PORCINE) 5,000 UNIT/ML 1 ML SYRINGE SUBCUT SCH (22:00)
[2018-04-15 05:05] LABS: ABSOLUTE LYMPHOCYTES (AUTO) 1.2 10^3/uL (0.5-4.7); ABSOLUTE MONOCYTES (AUTO) 0.4 10^3/uL (0.1-1.4); ABSOLUTE NEUT (AUTO) 3.4 10^3/uL (1.7-8.2); BASOPHILS % (AUTO) 0.9 % (0-2); EOSINOPHILS % (AUTO) 0.4 % (0-6); HEMATOCRIT 37.6 % (36.0-47.0); HEMOGLOBIN 12.4 g/dL (12.0-15.5); LYMPHOCYTES % (AUTO) 23.2 % (13-45); MEAN CORPUSCULAR HEMOGLOBIN 30.9 pg (27.0-33.4); MEAN CORPUSCULAR HGB CONC 32.9 g/dL (32.0-36.0); MEAN CORPUSCULAR VOLUME 94 fl (80-97); MONOCYTES % (AUTO) 8.3 % (3-13); PLATELET COUNT 251 10^3/uL (150-450); RED BLOOD COUNT 4.01 10^6/uL (3.72-5.28); SEGMENTED NEUTROPHILS % (AUTO) 67.2 % (42-78); TOTAL CELLS COUNTED % (AUTO) 100 %; WHITE BLOOD COUNT 5.1 10^3/uL (4.0-10.5)
[2018-04-15 05:18] LABS: ANION GAP 8 (5-19); BLOOD UREA NITROGEN 16 mg/dL (7-20); CALCIUM 9.5 mg/dL (8.4-10.2); CARBON DIOXIDE 27 mmol/L (22-30); CHLORIDE 111 mmol/L (98-107); GLUCOSE 110 mg/dL (75-110); POTASSIUM 4.2 mmol/L (3.6-5.0); SODIUM 145.6 mmol/L (137-145)
[2018-04-15] MEDS: IPRATROPIUM/ALBUTEROL 0.5-2.5 MG/3 ML AMPUL NEB SCH ×2 (07:48→19:38)
--- NOTE | 2018-04-15 08:12 | RADIOLOGY REPORT (SQ) ---
EXAM DESCRIPTION: CHEST SINGLE VIEW COMPLETED DATE/TIME: 04/15/2018 8:00 am REASON FOR STUDY: dyspnea, hypoxia COMPARISON: Chest films 04/14/2018, 08/26/2017, 06/19/2017 EXAM PARAMETERS: NUMBER OF VIEWS: One view. TECHNIQUE: Single frontal radiographic view of the chest acquired. RADIATION DOSE: NA LIMITATIONS: None. FINDINGS: LUNGS AND PLEURA: Pulmonary vascular prominence is present without alveolar or interstitia l edema. No pleural effusion. No pneumothorax MEDIASTINUM AND HILAR STRUCTURES: No masses. Contour normal. HEART AND VASCULAR STRUCTURES: Stable marked cardiomegaly and old sternotomy for CABG BONES: No acute findings. HARDWARE: Left-sided pacemaker/defibrillator OTHER: No other significant finding. IMPRESSION: Unchanged cardiomegaly. Pulmonary vascular congestion without alveolar or interstitial edema TECHNICAL DOCUMENTATION: JOB ID: [id number] [employer]- All Rights Reserved Reading location - IP/workstation name: [email or web address]
[2018-04-15] MEDS: LISINOPRIL 10 MG TABLET PO SCH (09:32)
[2018-04-15] MEDS: METOPROLOL SUCCINATE 50 MG TAB.SR.24H PO SCH (09:32)
[2018-04-15] MEDS: FUROSEMIDE INJ/PF 40 MG/4 ML SDV IV SCH (09:33)
[2018-04-15] MEDS: FAMOTIDINE 20 MG TABLET PO SCH ×2 (09:33→21:31)
[2018-04-15] MEDS: ASPIRIN 81 MG TABLET, ENT COATED PO SCH ×2 (09:33)
[2018-04-15] MEDS: AMIODARONE HCL 200 MG TABLET PO SCH (09:33)
[2018-04-15] MEDS: ISOSORBIDE MONONITRATE 60 MG TAB.ER.24H PO SCH (09:33)
[2018-04-15] MEDS: APIXABAN 5 MG TABLET PO SCH ×2 (09:33→17:43)
[2018-04-15] MEDS: ATORVASTATIN CALCIUM 80 MG TABLET PO SCH (09:33)
[2018-04-15] MEDS: DOCUSATE SODIUM 100 MG CAPSULE PO SCH (09:33)
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
[2018-04-15] MEDS: ALPRAZOLAM 0.5 MG TABLET PO PRN ×2 (13:51→19:11)
[2018-04-15] MEDS: MELATONIN 5 MG TABLET PO SCH (21:32)
[2018-04-16] MEDS: ALPRAZOLAM 0.5 MG TABLET PO PRN (01:09)
[2018-04-16 06:07] LABS: ANION GAP 7 (5-19); BLOOD UREA NITROGEN 17 mg/dL (7-20); CALCIUM 9.2 mg/dL (8.4-10.2); CARBON DIOXIDE 28 mmol/L (22-30); CHLORIDE 107 mmol/L (98-107); GLUCOSE 102 mg/dL (75-110); POTASSIUM 3.6 mmol/L (3.6-5.0); SODIUM 142.4 mmol/L (137-145)
[2018-04-16] MEDS: IPRATROPIUM/ALBUTEROL 0.5-2.5 MG/3 ML AMPUL NEB SCH (08:03)
[2018-04-16] MEDS: LISINOPRIL 10 MG TABLET PO SCH (09:16)
[2018-04-16] MEDS: AMIODARONE HCL 200 MG TABLET PO SCH (09:17)
[2018-04-16] MEDS: DOCUSATE SODIUM 100 MG CAPSULE PO SCH (09:17)
[2018-04-16] MEDS: FAMOTIDINE 20 MG TABLET PO SCH (09:17)
[2018-04-16] MEDS: APIXABAN 5 MG TABLET PO SCH (09:17)
[2018-04-16] MEDS: ASPIRIN 81 MG TABLET, ENT COATED PO SCH ×2 (09:17)
[2018-04-16] MEDS: METOPROLOL SUCCINATE 50 MG TAB.SR.24H PO SCH (09:17)
[2018-04-16] MEDS: ISOSORBIDE MONONITRATE 60 MG TAB.ER.24H PO SCH (09:17)
[2018-04-16] MEDS: ATORVASTATIN CALCIUM 80 MG TABLET PO SCH (09:17)
[2018-04-16] MEDS ORDERED: BUSPIRONE HCL 10 MG TABLET PO SCH (10:00)
[2018-04-16] MEDS ORDERED: PAROXETINE HCL 20 MG TABLET PO SCH (10:00)
[2018-04-16 13:25] VITALS: BP 142/93
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
== END 2018-04-16 14:23 | disposition home or self-care (01) | DRG 291 ==
LOC: ER 10:34 → EH 14:59 → INTOOBSV 14:59 → 4N 20:09 → OBSVTOIN 04-15 14:14
PROVIDERS: ADMIT Internal Medicine; ATTEND Internal Medicine
PROC: 3E0F73Z Introduction of Anti-inflammatory into Respiratory Tract, Via Natural or Artificial Opening (ICD-10-PCS; principal; 2018-04-14)
DX: I13.0 Hypertensive heart and chronic kidney disease with heart failure and stage 1 through stage 4 chronic kidney disease, or unspecified chronic kidney disease (principal); I50.23 Acute on chronic systolic (congestive) heart failure; N17.9 Acute kidney failure, unspecified; E87.0 Hyperosmolality and hypernatremia; I42.0 Dilated cardiomyopathy; N18.3 Chronic kidney disease, stage 3 (moderate); K21.9 Gastro-esophageal reflux disease without esophagitis; E78.5 Hyperlipidemia, unspecified; F41.1 Generalized anxiety disorder; F19.10 Other psychoactive substance abuse, uncomplicated; J44.9 Chronic obstructive pulmonary disease, unspecified; E66.9 Obesity, unspecified; F32.9 Major depressive disorder, single episode, unspecified; Z68.39 Body mass index [BMI] 39.0-39.9, adult; I25.2 Old myocardial infarction; Z95.5 Presence of coronary angioplasty implant and graft; Z79.899 Other long term (current) drug therapy; Z79.82 Long term (current) use of aspirin; Z79.01 Long term (current) use of anticoagulants; Z86.73 Personal history of transient ischemic attack (TIA), and cerebral infarction without residual deficits; Z95.1 Presence of aortocoronary bypass graft; Z90.710 Acquired absence of both cervix and uterus; Z87.891 Personal history of nicotine dependence; Z88.6 Allergy status to analgesic agent; Z88.4 Allergy status to anesthetic agent; Z91.012 Allergy to eggs; Z95.810 Presence of automatic (implantable) cardiac defibrillator
CPT/HCPCS: 36415; 71045; 80048; 80053; 80307; 82550; 82553; 83880; 84484; 85025; 85379; 85610; 87804; 93005; 93010; 94640; 94799; 96374; 99285; G0378; J1885; J1940; J3490; J7620

== ENCOUNTER 2018-04-20 05:30 | Emergency (ER) | payer MEDICAID ==
[2018-04-20] MEDS ORDERED: IPRATROPIUM/ALBUTEROL 0.5-2.5 MG/3 ML AMPUL NEB ONE ×2 (05:40→05:44)
[2018-04-20 06:17] LABS: ABSOLUTE BASOPHILS # (AUTO) 0.1 10^3/uL (0.0-0.2); ABSOLUTE LYMPHOCYTES (AUTO) 1.1 10^3/uL (0.5-4.7); ABSOLUTE MONOCYTES (AUTO) 0.3 10^3/uL (0.1-1.4); EOSINOPHILS % (AUTO) 0.2 % (0-6); HEMATOCRIT 38.4 % (36.0-47.0); HEMOGLOBIN 12.6 g/dL (12.0-15.5); LYMPHOCYTES % (AUTO) 17.5 % (13-45); MEAN CORPUSCULAR HEMOGLOBIN 31.3 pg (27.0-33.4); MEAN CORPUSCULAR HGB CONC 32.9 g/dL (32.0-36.0); MEAN CORPUSCULAR VOLUME 95 fl (80-97); MONOCYTES % (AUTO) 5.3 % (3-13); PLATELET COUNT 260 10^3/uL (150-450); RED BLOOD COUNT 4.04 10^6/uL (3.72-5.28); RED CELL DISTRIBUTION WIDTH 16.9 % (11.5-14.0); TOTAL CELLS COUNTED % (AUTO) 100 %; WHITE BLOOD COUNT 6.5 10^3/uL (4.0-10.5)
[2018-04-20] MEDS ORDERED: BENZONATATE 100 MG CAPSULE PO ONE (06:37)
--- NOTE | 2018-04-20 06:59 | RADIOLOGY REPORT (SQ) ---
EXAM DESCRIPTION: XR CHEST 1 VIEW COMPLETED DATE/TME: 04/20/2018 05:44 CLINICAL HISTORY: dyspnea COMPARISON: 04/15/2018 FINDINGS: Single frontal view of the chest. Cardiomegaly. Prior median sternotomy. Left-sided pacemaker. Pulmonary vascular congestion. No pneumothorax. No large effusion. Patchy right basilar opacity. No acute osseous abnormalities. Leads overlie the chest. Upper abdominal soft tissues are unremarkable. IMPRESSION: 1. Cardiomegaly with pulmonary vascular congestion. 2. Interval increase in bibasilar airspace opacity. This could represent developing pneumonia or asymmetric edema.
[2018-04-20 07:27] LABS: ANION GAP 7 (5-19); BLOOD UREA NITROGEN 13 mg/dL (7-20); CALCIUM 8.9 mg/dL (8.4-10.2); CARBON DIOXIDE 27 mmol/L (22-30); CHLORIDE 113 mmol/L (98-107); GLUCOSE 117 mg/dL (75-110); POTASSIUM 3.8 mmol/L (3.6-5.0); SODIUM 146.5 mmol/L (137-145)
--- NOTE | 2018-04-20 07:39 | EKG REPORT ---
SEVERITY:- ABNORMAL ECG - ATRIAL-SENSED VENTRICULAR-PACED RHYTHM : Confirmed by: Kirk Weeks MD 20-Apr-2018 07:38:01
[2018-04-20] MEDS ORDERED: FUROSEMIDE INJ/PF 40 MG/4 ML SDV IV ONE (07:49)
[2018-04-20] MEDS ORDERED: ALBUTEROL SULFATE 0.083% NEB 2.5 MG/3 ML AMPUL NEB ONE ×2 (08:37→08:51)
--- NOTE | 2018-04-20 10:12 | ER Document Report ---
ED General - General Chief Complaint: CHF Exacerbation Stated Complaint: BREATHING PROBLEMS Time Seen by Provider: 04/20/18 05:44 Primary Care Provider: YI SANCHEZ DO [Primary Care Provider] - Follow up as needed TRAVEL OUTSIDE OF THE [place] IN LAST 30 DAYS: No - HPI Patient complains to provider of: Difficulty in breathing Notes: Patient coming in today for evaluation of difficulty breathing. Patient was recently admitted to the hospital for CHF exacerbation upon discharge patient states that she was told not to take any further Lasix as that she had renal insufficiency. Patient states she has continued to smoke marijuana. Patient denies any pain or chest denies fevers chills denies any productive cough. Upon my evaluation patient is resting comfortably on 2 L nasal cannula. - Related Data Allergies/Adverse Reactions: acetaminophen [From Vicodin] Allergy (Verified 08/26/17 01:55) egg [Egg] Allergy (Verified 08/26/17 01:55) hydrocodone [From Vicodin] Allergy (Verified 08/26/17 01:55) diphenhydramine HCl [From Benadryl] Adverse Reaction (Verified 08/26/17 01:55) chest pain, bigemeny rhythm Past Medical History - Social History Smoking Status: Unknown if Ever Smoked Chew tobacco use (# tins/day): No Frequency of alcohol use: None Drug Abuse: None Family History: None, Reviewed & Not Pertinent Patient has suicidal ideation: No Patient has homicidal ideation: No - Past Medical History Cardiac Medical History: Reports: Hx Congestive Heart Failure, Hx Heart Attack - 1-2 YRS AGO, Hx Hypercholesterolemia, Hx Hypertension - ON MEDS Pulmonary Medical History: Reports: Hx COPD Denies: Hx Asthma Neurological Medical History: Denies: Hx Cerebrovascular Accident, Hx Seizures Renal/ Medical History: Reports: Hx Kidney Stones, Hx Renal Insufficiency. Denies: Hx Peritoneal Dialysis GI Medical History: Reports: Hx Gastroesophageal Reflux Disease. Denies: Hx Hepatitis, Hx Hiatal Hernia, Hx Ulcer Psychiatric Medical History: Reports: Hx Anxiety, Hx Depression, Hx Schizophrenia Infectious Medical History: Denies: Hx Hepatitis Past Surgical History: Reports: Hx Cardiac Catheterization - multiple stents, Hx Cardiac Surgery - pacemaker, CABG, Hx Section, Hx Coronary Artery Bypass Graft - 2006, Hx Hysterectomy, Hx Open Heart Surgery - BYPASS 2006, Hx Pacemaker - , DEC 2013, Hx Tubal Ligation. Denies: Hx Mastectomy - Immunizations Hx Diphtheria, Pertussis, Tetanus Vaccination: Yes Hx Pneumococcal Vaccination: 04/04/12 Review of Systems - Review of Systems Constitutional: No symptoms reported EENT: No symptoms reported Cardiovascular: No symptoms reported Respiratory: Cough, Short of breath Gastrointestinal: No symptoms reported Genitourinary: No symptoms reported Female Genitourinary: No symptoms reported Musculoskeletal: No symptoms reported Skin: No symptoms reported Hematologic/Lymphatic: No symptoms reported Neurological/Psychological: No symptoms reported -: Yes All other systems reviewed and negative Physical Exam - Vital signs Vitals: Temp Pulse Resp BP Pulse Ox 99.0 F 90 36 H 162/107 H 86 L 04/20/18 05:35 04/20/18 05:35 04/20/18 05:35 04/20/18 05:35 04/20/18 05:35 Interpretation: Normal - General General appearance: Appears well, Alert - HEENT Head: Normocephalic, Atraumatic Eyes: Normal Pupils: PERRL - Respiratory Respiratory status: No respiratory distress Chest status: Nontender Breath sounds: Wheezing Chest palpation: Normal - Cardiovascular Rhythm: Regular Heart sounds: Normal auscultation Murmur: No - Abdominal Inspection: Normal Distension: No distension Bowel sounds: Normal Tenderness: Nontender Organomegaly: No organomegaly - Back Back: Normal, Nontender - Extremities General upper extremity: Normal inspection, Nontender, Normal color, Normal ROM, Normal temperature General lower extremity: Normal inspection, Nontender, Normal color, Normal ROM, Normal temperature, Normal weight bearing. No: Roman's sign - Neurological Neuro grossly intact: Yes Cognition: Normal Orientation: AAOx4 [place] Coma Scale Eye Opening: Spontaneous Jorge Coma Scale Verbal: Oriented Jorge Coma Scale Motor: Obeys Commands Jorge Coma Scale Total: 15 Speech: Normal Motor strength normal: LUE, RUE, LLE, RLE Sensory: Normal - Psychological Associated symptoms: Normal affect, Normal mood - Skin Skin Temperature: Warm Skin Moisture: Dry Skin Color: Normal Course - Re-evaluation Re-evalutation: 04/20/18 13:20 Patient with improvement of her breathing upon administration of Lasix and albuterol. Do believe patient has slight fluid overload. The explained to the patient that she will need to stop smoking marijuana. I explained the patient do not recommend putting her back on her Lasix 40 mg twice daily until she can follow-up with her primary care physician. Patient was taken off her oxygen and monitored for multiple hours with no signs of recurrent hypoxia. Patient did diurese here in the ER. No signs of any other critical pathology patient was discharged home - Vital Signs Vital signs: Temp Pulse Resp BP Pulse Ox 99.0 F 90 20 153/87 H 93 04/20/18 10:10 04/20/18 05:35 04/20/18 10:10 04/20/18 10:10 04/20/18 10:10 - Laboratory Result Diagrams: 04/20/18 06:00 04/20/18 06:55 Laboratory results interpreted by me: 04/20/18 04/20/18 04/20/18 06:00 06:00 06:55 RDW 16.9 H Sodium 146.5 H Chloride 113 H Est GFR ( Amer) 57 L Est GFR (Non-Af Amer) 47 L Glucose 117 H NT-Pro-B Natriuret Pep 1760 H Discharge - Discharge Clinical Impression: Marijuana smoker, Obesity (BMI 30-39.9) CHF (congestive heart failure) Qualifiers: Heart failure type: unspecified Heart failure chronicity: unspecified Qualified Code(s): I50.9 - Heart failure, unspecified Condition: Good Disposition: HOME, SELF-CARE Instructions: Congestive Heart Failure ([facility]), Lasix Additional Instructions: I would highly recommend restarting her Lasix 40 mg twice daily until he can follow-up with your primary care physician please return to the ER symptoms worsen take medications as prescribed. Please stop smoking marijuana as this would also cause her to be short of breath. Prescriptions: Furosemide [Lasix 40 mg Tablet] 40 mg PO BID #14 tablet Forms: Return to Work Referrals: YI SANCHEZ DO [Primary Care Provider] - Follow up as needed
[2018-04-20 10:15] VITALS: BP 153/87
== END 2018-04-20 10:32 | disposition home or self-care (01) ==
LOC: ER 05:30
DX: I50.9 Heart failure, unspecified (principal); I11.0 Hypertensive heart disease with heart failure; R06.9 Unspecified abnormalities of breathing; Z79.899 Other long term (current) drug therapy; F12.90 Cannabis use, unspecified, uncomplicated; I25.2 Old myocardial infarction; J44.9 Chronic obstructive pulmonary disease, unspecified; E66.9 Obesity, unspecified
CPT/HCPCS: 93005; 94640; 99285; 96374; 36415; 85025; 80048; 84484; 83880; 71045; 93010; J3490; J1940; J7620

== ENCOUNTER 2018-05-18 10:10 | Observation (INO) | payer MEDICAID ==
[2018-05-18 11:27] LABS: ABSOLUTE MONOCYTES (AUTO) 0.4 10^3/uL (0.1-1.4); BASOPHILS % (AUTO) 0.3 % (0-2); EOSINOPHILS % (AUTO) 0.2 % (0-6); HEMATOCRIT 37.9 % (36.0-47.0); HEMOGLOBIN 12.5 g/dL (12.0-15.5); LYMPHOCYTES % (AUTO) 16.2 % (13-45); MEAN CORPUSCULAR HEMOGLOBIN 31.4 pg (27.0-33.4); MEAN CORPUSCULAR HGB CONC 32.9 g/dL (32.0-36.0); MEAN CORPUSCULAR VOLUME 95 fl (80-97); MONOCYTES % (AUTO) 5.7 % (3-13); PLATELET COUNT 270 10^3/uL (150-450); RED BLOOD COUNT 3.98 10^6/uL (3.72-5.28); RED CELL DISTRIBUTION WIDTH 16.8 % (11.5-14.0); SEGMENTED NEUTROPHILS % (AUTO) 77.6 % (42-78); TOTAL CELLS COUNTED % (AUTO) 100 %; WHITE BLOOD COUNT 6.4 10^3/uL (4.0-10.5)
[2018-05-18 11:44] LABS: ALANINE AMINOTRANSFERASE 34 U/L (9-52); ALBUMIN 4.3 g/dL (3.5-5.0); ALKALINE PHOSPHATASE 87 U/L (38-126); ANION GAP 11 (5-19); ASPARTATE AMINO TRANSFERASE 33 U/L (14-36); BILIRUBIN,DIRECT 0.4 mg/dL (0.0-0.4); BILIRUBIN,TOTAL 1.9 mg/dL (0.2-1.3); BLOOD UREA NITROGEN 13 mg/dL (7-20); CALCIUM 9.7 mg/dL (8.4-10.2); CARBON DIOXIDE 25 mmol/L (22-30); CHLORIDE 107 mmol/L (98-107); CREATINE KINASE 102 U/L (30-135); GLUCOSE 132 mg/dL (75-110); POTASSIUM 3.6 mmol/L (3.6-5.0); SODIUM 143.3 mmol/L (137-145); TOTAL PROTEIN 7.5 g/dL (6.3-8.2)
[2018-05-18 11:56] LABS: CREATINE KINASE MB 0.8 ng/mL (<4.55)
[2018-05-18 11:59] LABS: TROPONIN I 0.034 ng/mL
--- NOTE | 2018-05-18 12:21 | RADIOLOGY REPORT (SQ) ---
EXAM DESCRIPTION: CHEST SINGLE VIEW COMPLETED DATE/TIME: 05/18/2018 11:33 am REASON FOR STUDY: SOB COMPARISON: 04/20/2018 NUMBER OF VIEWS: One view. TECHNIQUE: Single frontal radiographic view of the chest acquired. LIMITATIONS: AP portable. Body habitus. FINDINGS: LUNGS AND PLEURA: Chronic interstitial pattern in the lung bases. No large effusions. MEDIASTINUM AND HILAR STRUCTURES: Stable. HEART AND VASCULATURE: Cardiac enlargement. Vascular congestion. BONES: No acute findings. HARDWARE: CABG. Defibrillator. OTHER: No other significant finding. IMPRESSION: CARDIAC ENLARGEMENT. VASCULAR CONGESTION. TECHNICAL DOCUMENTATION: JOB ID: [id number] [employer]- All Rights Reserved Reading location - IP/workstation name: [email or web address]
[2018-05-18 12:37] LABS: APPEARANCE,URINE CLEAR; BILIRUBIN,URINE NEGATIVE (NEGATIVE); COLOR,URINE YELLOW; GLUCOSE, URINE NEGATIVE (NEGATIVE); KETONES,URINE NEGATIVE (NEGATIVE); LEUKOCYTE ESTERASE,URINE NEGATIVE (NEGATIVE); NITRITE,URINE NEGATIVE (NEGATIVE); PROTEIN,URINE NEGATIVE (NEGATIVE); URINE SPECIFIC GRAVITY 1.011
[2018-05-18] MEDS ORDERED: FUROSEMIDE INJ/PF 100 MG/10 ML SDV IV ONE (12:41)
[2018-05-18 12:56] LABS: URINE AMPHETAMINES SCREEN NEGATIVE; URINE BARBITURATES SCREEN NEGATIVE; URINE BENZODIAZEPINES SCREEN NEGATIVE; URINE COCAINE SCREEN NEGATIVE; URINE MARIJUANA (THC) SCREEN UNCONFIRMED POSITIVE; URINE METHADONE SCREEN NEGATIVE; URINE PHENCYCLIDINE SCREEN NEGATIVE
--- NOTE | 2018-05-18 14:45 | ER Document Report ---
Entered by STARLA PUGA SCRIBE 05/18/18 1118 Acting as scribe for:PRATIBHA CARYT MD ED Cardiac - General Chief Complaint: Chest Pain Stated Complaint: CHEST PAIN Time Seen by Provider: 05/18/18 10:59 Primary Care Provider: YI SANCHEZ DO [Primary Care Provider] - Follow up as needed Mode of Arrival: Ambulatory Information source: Patient Notes: 47 year old female that presents to the emergency department today with complaints of shortness of breath beginning last night. Patient has an extensive past history including a CABG in 2006 and CVA. Patient states that her chest pain is described as a "pressure as if someone is sitting on it". Patient has had an associated cough, shortness of breath, headache, and subjective lower leg swelling. TRAVEL OUTSIDE OF THE [place] IN LAST 30 DAYS: No - Related Data Allergies/Adverse Reactions: acetaminophen [From Vicodin] Allergy (Verified 05/18/18 11:56) egg [Egg] Allergy (Verified 05/18/18 11:56) hydrocodone [From Vicodin] Allergy (Verified 05/18/18 11:56) diphenhydramine HCl [From Benadryl] Adverse Reaction (Verified 05/18/18 11:56) chest pain, bigemeny rhythm Past Medical History - General Information source: Patient - Social History Smoking Status: Former Smoker Cigarette use (# per day): No Frequency of alcohol use: None Drug Abuse: None Lives with: Family Family History: None, Reviewed & Not Pertinent - Past Medical History Cardiac Medical History: Reports: Hx Congestive Heart Failure, Hx Heart Attack - 1-2 YRS AGO, Hx Hypercholesterolemia, Hx Hypertension - ON MEDS Pulmonary Medical History: Reports: Hx COPD Renal/ Medical History: Reports: Hx Kidney Stones, Hx Renal Insufficiency GI Medical History: Reports: Hx Gastroesophageal Reflux Disease Psychiatric Medical History: Reports: Hx Anxiety, Hx Depression, Hx Schizo phrenia Past Surgical History: Reports: Hx Cardiac Catheterization - multiple stents, Hx Cardiac Surgery - pacemaker, CABG, Hx Section, Hx Coronary Artery Bypass Graft - 2006, Hx Hysterectomy, Hx Open Heart Surgery - BYPASS 2006, Hx Pacemaker - , DEC 2013, Hx Tubal Ligation - Immunizations Hx Diphtheria, Pertussis, Tetanus Vaccination: Yes Hx Pneumococcal Vaccination: 04/04/12 Review of Systems - Review of Systems Constitutional: No symptoms reported EENT: No symptoms reported Cardiovascular: See HPI, Chest pain Respiratory: See HPI, Cough Gastrointestinal: No symptoms reported Genitourinary: No symptoms reported Female Genitourinary: No symptoms reported Musculoskeletal: See HPI, Leg swelling - subjective Skin: No symptoms reported Hematologic/Lymphatic: No symptoms reported Neurological/Psychological: See HPI, Headaches -: Yes All other systems reviewed and negative Physical Exam - Vital signs Vitals: Temp Pulse Resp BP Pulse Ox 99.1 F 59 L 26 H 141/83 H 90 L 05/18/18 10:31 05/18/18 10:31 05/18/18 10:31 05/18/18 10:31 05/18/18 10:31 - Notes Notes: Physical Exam: General: Alert, appears well. HEENT: Normocephalic. Atraumatic. PERRL. Extraocular movements intact. Oropharynx clear. Neck: Supple. Non-tender. Respiratory: No respiratory distress. Clear and equal breath sounds bilaterally. Anterior chest wall tenderness with palpation. Rales at the bases bilaterally. Cardiovascular: Regular rate and rhythm. Abdominal: Normal Inspection. Non-tender. No distension. Normal Bowel Sounds. Back: Non-tender. No deformity or step off. Extremities: Moves all four extremities. Upper extremities: Normal inspection. Normal ROM. Lower extremities: Normal inspection. No edema. Normal ROM. Neurological: Normal cognition. AAOx4. Normal speech. Psychological: Normal affect. Normal Mood. Skin: Warm. Dry. Normal color. Course - Re-evaluation Re-evalutation: 05/18/18 14:52 Patient's creatinine is slightly better today than it was when she was discharged after an acute renal failure CHF admission in March. At this time she has diuresed about 1 L of fluids and states that her breathing is much better than when she first came in. - Vital Signs Vital signs: Temp Pulse Resp BP Pulse Ox 99.1 F 59 L 23 H 135/98 H 95 05/18/18 10:31 05/18/18 10:31 05/18/18 14:01 05/18/18 14:01 05/18/18 14:01 - Laboratory Result Diagrams: 05/18/18 11:10 05/18/18 11:10 Laboratory results interpreted by me: 05/18/18 05/18/18 05/18/18 11:10 11:10 11:10 RDW 16.8 H Creatinine 1.27 H Est GFR ( Amer) 55 L Est GFR (Non-Af Amer) 45 L Glucose 132 H Total Bilirubin 1.9 H NT-Pro-B Natriuret Pep 3050 H Urine Blood Urine Urobilinogen 05/18/18 12:00 RDW Creatinine Est GFR ( Amer) Est GFR (Non-Af Amer) Glucose Total Bilirubin NT-Pro-B Natriuret Pep Urine Blood SMALL H Urine Urobilinogen 4.0 H - Diagnostic Test Radiology reviewed: Image reviewed, Reports reviewed - Chest x-ray shows cardiomegaly with vascular congestion - EKG Interpretation by Me EKG shows normal: [place], Intervals, QRS Complexes, ST-T Waves Rate: Normal - 63 Rhythm: NSR, Other - Atrial sensed ventricular paced complexes When compared to previous EKG there are: No significant change - Consults Dr. Ferris Time consulted: 14:42 Consulted provider: will come to ER Critical Care Note - Critical Care Note Total time excluding time spent on procedures (mins): 35 Discharge - Discharge Clinical Impression: Marijuana smoker, Obesity (BMI 30-39.9) CHF exacerbation Qualifiers: Heart failure type: unspecified Qualified Code(s): I50.9 - Heart failure, unspecified Cardiomyopathy Qualifiers: Cardiomyopathy type: unspecified Qualified Code(s): I42.9 - Cardiomyopathy, unspecified Condition: Stable Disposition: ADMITTED INPATIENT Admitting Provider: Hospitalist Unit Admitted: Telemetry Referrals: YI SANCHEZ DO [Primary Care Provider] - Follow up as needed Scribe Attestation: 05/18/18 14:45 I personally performed the services described in the documentation, reviewed and edited the documentation which was dictated to the scribe in my presence, and it accurately records my words and actions. I personally performed the services described in the documentation, reviewed and edited the documentation which was dictated to the scribe in my presence, and it accurately records my words and actions.
[2018-05-18] MEDS ORDERED: NITROGLYCERIN 0.4 MG/TAB 25 TAB/BOTTLE SL PRN (15:49)
[2018-05-18] MEDS: APIXABAN 5 MG TABLET PO SCH (18:05)
[2018-05-18] MEDS ORDERED: OXYCODONE HCL IR 5 MG TABLET PO PRN (19:11)
[2018-05-18 20:30] LABS: CREATINE KINASE MB 0.73 ng/mL (<4.55); TROPONIN I 0.044 ng/mL
[2018-05-18] MEDS: BUSPIRONE HCL 10 MG TABLET PO SCH (22:00)
[2018-05-18] MEDS ORDERED: ATORVASTATIN CALCIUM 80 MG TABLET PO SCH (22:00)
[2018-05-18] MEDS ORDERED: MELATONIN 1 MG TABLET PO SCH (22:00)
[2018-05-18] MEDS: AMIODARONE HCL 200 MG TABLET PO SCH (22:01)
[2018-05-18] MEDS: FUROSEMIDE INJ/PF 100 MG/10 ML SDV IV SCH (22:01)
[2018-05-18] MEDS: FAMOTIDINE 20 MG TABLET PO SCH (22:03)
--- NOTE | 2018-05-18 22:51 | EKG REPORT ---
SEVERITY:- ABNORMAL ECG - ATRIAL-SENSED VENTRICULAR-PACED COMPLEXES : Confirmed by: Verna Frederick 18-May-2018 22:50:01
[2018-05-19 02:29] LABS: CREATINE KINASE MB 0.78 ng/mL (<4.55)
[2018-05-19 02:33] LABS: TROPONIN I 0.036 ng/mL
--- NOTE | 2018-05-19 08:23 | RADIOLOGY REPORT (SQ) ---
EXAM DESCRIPTION: CHEST SINGLE VIEW COMPLETED DATE/TIME: 05/19/2018 8:08 am REASON FOR STUDY: chf COMPARISON: 05/18/2018 NUMBER OF VIEWS: One view. TECHNIQUE: Single frontal radiographic image of the chest acquired. LIMITATIONS: None. FINDINGS: LUNGS AND PLEURA: Stable appearance. MEDIASTINUM AND HILAR STRUCTURES: Stable heart size and mediastinal structures. HEART AND VASCULAR STRUCTURES: Stable appearance. BONES: No acute findings. HARDWARE: None in the chest. OTHER: No other significant finding. IMPRESSION: STABLE APPEARANCE OF THE CHEST. TECHNICAL DOCUMENTATION: JOB ID: [id number] [employer]- All Rights Reserved Reading location - IP/workstation name: [email or web address]
[2018-05-19] MEDS: FUROSEMIDE INJ/PF 100 MG/10 ML SDV IV SCH (09:38)
[2018-05-19] MEDS: BUSPIRONE HCL 10 MG TABLET PO SCH (09:39)
[2018-05-19] MEDS: AMIODARONE HCL 200 MG TABLET PO SCH (09:39)
[2018-05-19] MEDS: APIXABAN 5 MG TABLET PO SCH (09:39)
[2018-05-19] MEDS: FAMOTIDINE 20 MG TABLET PO SCH (09:39)
[2018-05-19] MEDS ORDERED: ASPIRIN 81 MG TABLET, ENT COATED PO SCH (10:00)
[2018-05-19] MEDS ORDERED: METOPROLOL SUCCINATE 50 MG TAB.SR.24H PO SCH (10:00)
[2018-05-19] MEDS ORDERED: LISINOPRIL 10 MG TABLET PO SCH (10:00)
[2018-05-19] MEDS ORDERED: PAROXETINE HCL 20 MG TABLET PO SCH (10:00)
[2018-05-19] MEDS ORDERED: ISOSORBIDE MONONITRATE 60 MG TAB.ER.24H PO SCH (10:00)
[2018-05-19 11:47] VITALS: BP 147/95
--- NOTE | 2018-05-19 22:13 | XCELERA REPORT ---
[address] [address] Transthoracic Echocardiogram Report Name: FRANKI DEL ROSARIO Age: 47 yrs Gender: Female : 1970 Patient Status: Inpatient Patient Location: [address] [place] [address] Study Date: 05/18/2018 08:02 PM Height: 65 in Weight: 235 lb BSA: 2.1 m2 Procedure: A two-dimensional transthoracic echocardiogram with color flow Doppler was performed. The study was technically difficult with many images being suboptimal in quality. The study was technically limited with all images being suboptimal in quality. Reason For Study: Coronary artery disease, congestive heart failure History: Coronary artery disease, congestive heart failure. Ordering Physician: TIMBO ANDRADE Performed By: Sydney Castillo Interpretation Summary The left ventricle is severely dilated. There is dyskinesis of the apical septum and apical inferior cavazos.The rest of the LV cavazos are severely hypokinetic. LV EF is 20% to 25% Left ventricular systolic function is severely reduced. The right ventricle is not well visualized secondary to technical limitations Right atrium not well visualized secondary to technical limitations The left atrium is moderately dilated. There is no evidence of mitral valve prolapse. There is no vegetation seen on the mitral valve. There is no mitral valve stenosis. There is a trace amount of mitral regurgitation There is no aortic valvular vegetation. There is no aortic valve stenosis There is no LVOT obstruction. There is no tricuspid stenosis. There is a trace to mild amount of tricuspid regurgitation There is mild pulmonary hypertension by echo RVSP is 34 mm of Hg , with RA mean of 10. There is no pulmonic valvular stenosis. There is a trace amount of pulmonic regurgitation There is no pericardial effusion. MMode/2D Measurements & Calculations RVDd: 2.7 cm LVIDd: 7.2 cm FS: 7.1 % Ao root diam: 3.0 cm IVSd: 0.86 cm LVIDs: 6.7 cm EDV(Teich): 269.3 ml Ao root area: 7.3 cm2 LVPWd: 0.95 cm ESV(Teich): 227.9 ml LA dimension: 4.6 cm EF(Teich): 15.4 % Doppler Measurements & Calculations MV E max flynn: MV P1/2t max flynn: Ao V2 max: LV V1 max P.7 cm/sec 132.9 cm/sec 114.7 cm/sec 3.6 mmHg MV A max flynn: MV P1/2t: 77.3 msec Ao max PG: LV V1 max: 74.5 cm/sec MVA(P1/2t): 2.8 cm2 5.3 mmHg 95.3 cm/sec MV E/A: 1.4 MV dec slope: 503.4 cm/sec2 MV dec time: 0.13 sec PA V2 max: PI end-d flynn: TR max flynn: MV P1/2t-pr_phl: 88.2 cm/sec 122.2 cm/sec 245.7 cm/sec 77.3 msec PA max P.1 mmHg TR max P.1 mmHg Left Ventricle The left ventricle is severely dilated. There is normal left ventricular wall thickness. LV EF is 20% to 25%. Left ventricular systolic function is severely reduced. There is dyskinesis of the apical septum and apical inferior cavazos.The rest of the LV cavazos are severely hypokinetic. There is no thrombus. Right Ventricle The right ventricle is not well visualized secondary to technical limitations. Atria Right atrium not well visualized secondary to technical limitations. The left atrium is moderately dilated. Mitral Valve There is no evidence of mitral valve prolapse. There is no vegetation seen on the mitral valve. There is no mitral valve stenosis. There is a trace amount of mitral regurgitation. Aortic Valve There is no aortic valvular vegetation. There is no aortic valve stenosis. There is no LVOT obstruction. No aortic regurgitation is present. Tricuspid Valve There is no tricuspid stenosis. There is a trace to mild amount of tricuspid regurgitation. There is mild pulmonary hypertension by echo. RVSP is 34 mm of Hg , with RA mean of 10. Pulmonic Valve There is no pulmonic valvular stenosis. There is a trace amount of pulmonic regurgitation. Great Vessels The aortic root is not well visualized but is probably normal size. Effusions There is no pericardial effusion. LAX SAX 4C 2C I WMSI = 2.25 % Normal = 0 There is dyskinesis of the apical septum and apical inferior cavazos.The rest of the LV cavazos are severely hypokinetic. Segments Size X - Cannot1 - 2 - 3 - 4 - 1-2 small Interpret Normal HypokineticAkineticDyskinetic 3-5 moderate 5 - 6-14 large Aneurysmal 15-16 diffuse : TIMBO ANDRADE > Griselda Martin
--- NOTE | 2018-05-19 23:02 | EKG REPORT ---
SEVERITY:- ABNORMAL ECG - ATRIALPACED AND SENSED, VENTRICULAR-PACED RHYTHM : Confirmed by: Verna Frederick 19-May-2018 23:01:10
--- NOTE | 2018-05-20 08:59 | PDOC H&P ---
History of Present Illness Admission Date/PCP: 05/18/18 15:10 YI SANCHEZ DO Patient complains of: Increased shortness of breath History of Present Illness: FRANKI DEL ROSARIO is a 47 year old female Past Medical History Cardiac Medical History: Reports: Congestive Heart Failure, Myocardial Infarction - 1-2 YRS AGO, Hyperlipidema, Hypertension - ON MEDS Pulmonary Medical History: Reports: Chronic Obstructive Pulmonary Disease (COPD) Denies: Asthma Neurological Medical History: Denies: Seizures GI Medical History: Reports: Gastroesophageal Reflux Disease Denies: Hepatitis, Hiatal Hernia Psychiatric Medical History: Reports: Depression Hematology: Denies: Anemia, Sickle Cell Disease Past Surgical History Past Surgical History: Reports: Cardiac Catheterization - multiple stents, Section, Coronary Artery Bypass Graft - 2006, Hysterectomy, Pacemaker - X2, DEC 2013, Tubal Ligation Denies: Amputation, Mastectomy Social History Information Source: Patient, [facility] Lives with: Family Smoking Status: Former Smoker Frequency of Alcohol Use: Social Hx Recreational Drug Use: Yes Drugs: Cocaine, Marijuana Hx Prescription Drug Abuse: No - Advance Directive Resuscitation Status: Full Code Surrogate healthcare decision maker:: The patient does not have a dedicated healthcare proxy. Family would make decisions for her. She has a daughter and her mother is still living. Her yaa pop is listed as the first contact in her demographics. Family History Family History: Reviewed & Not Pertinent Parental Family History Reviewed: Yes Children Family History Reviewed: Yes Sibling(s) Family History Reviewed.: Yes Medication/Allergy Home Medications: Amiodarone HCl [Cordarone 200 mg Tablet] 200 mg PO BID 05/18/18 Apixaban [Eliquis 5 mg Tablet] 5 mg PO Q12 05/18/18 Aspirin [Ecotrin 81 mg EC Tablet] 81 mg PO DAILY 05/18/18 Atorvastatin Calcium [Lipitor 80 mg Tablet] 80 mg PO QHS 05/18/18 Buspirone HCl [Buspar 10 mg Tablet] 10 mg PO BID 05/18/18 Famotidine [Pepcid 40 mg Tablet] 40 mg PO BID 05/18/18 Isosorbide Mononitrate [Imdur 60 mg Tablet.er] 60 mg PO DAILY 05/18/18 Melatonin [Melatonin 1 mg Tablet] 1 mg PO QHS 05/18/18 Metoprolol Succinate [Toprol Xl 50 mg Tab.sr] 50 mg PO DAILY 05/18/18 Paroxetine HCl [Paxil 20 mg Tablet] 20 mg PO DAILY 05/18/18 Furosemide [Lasix 80 mg Tablet] 80 mg PO BID 30 Days #60 tablet 05/19/18 Sacubitril/Valsartan [Entresto 49 mg/51 mg Tablet] 1 tab PO BID 14 Days #28 tab let 05/19/18 Allergies/Adverse Reactions: acetaminophen [From Vicodin] Allergy (Verified 05/18/18 11:56) egg [Egg] Allergy (Verified 05/18/18 11:56) hydrocodone [From Vicodin] Allergy (Verified 05/18/18 11:56) diphenhydramine HCl [From Benadryl] Adverse Reaction (Verified 05/18/18 11:56) chest pain, bigemeny rhythm Review of Systems Constitutional: PRESENT: as per HPI, fatigue. ABSENT: headache(s), night sweats Eyes: ABSENT: visual disturbances Nose, Mouth, and Throat: ABSENT: headache(s), mouth pain, sore throat Cardiovascular: PRESENT: dyspnea on exertion, edema, orthropnea. ABSENT: palpitations Respiratory: PRESENT: dyspnea. ABSENT: cough, hemoptysis, sputum Gastrointestinal: ABSENT: abdominal pain, coffee ground emesis, constipation, diarrhea, heartburn, nausea, vomiting Genitourinary: ABSENT: difficulty urinating, dysuria, hematuria Musculoskeletal: ABSENT: joint swelling Integumentary: ABSENT: pruritus, rash Neurological: ABSENT: abnormal movements, abnormal speech, confusion, memory loss, tremor(s), vertigo Psychiatric: ABSENT: anxiety, depression Endocrine: ABSENT: cold intolerance, heat intolerance, polydipsia, polyuria Hematologic/Lymphatic: ABSENT: easy bleeding, easy bruising Allergic/Immunologic: ABSENT: seasonal rhinorrhea Physical Exam Vital Signs: Temp Pulse Resp BP Pulse Ox 99.1 F 59 L 16 138/98 H 98 05/18/18 10:31 05/18/18 10:31 05/18/18 15:01 05/18/18 15:01 05/18/18 15:01 Intake & Output 05/17/18 05/18/18 05/19/18 06:59 06:59 06:59 Output Total 1999 Balance -1999 Weight 106.6 kg General appearance: PRESENT: mild distress, morbidly obese Head exam: PRESENT: atraumatic, normocephalic Eye exam: PRESENT: conjunctiva pink, EOMI. ABSENT: scleral icterus Ear exam: PRESENT: normal external ear exam Mouth exam: PRESENT: moist, neck supple, tongue midline Neck exam: PRESENT: full ROM. ABSENT: carotid bruit, lymphadenopathy, tenderness Respiratory exam: PRESENT: rales, symmetrical, unlabored. ABSENT: accessory muscle use, rhonchi, wheezes Cardiovascular exam: PRESENT: RRR, +S1, +S2 GI/Abdominal exam: PRESENT: normal bowel sounds, soft. ABSENT: distended, tenderness Rectal exam: PRESENT: deferred Gentrourinary exam: ABSENT: indwelling catheter Extremities exam: ABSENT: pedal edema Neurological exam: PRESENT: alert, awake, oriented to person, oriented to place, oriented to time, oriented to situation, CN II-XII grossly intact Psychiatric exam: PRESENT: appropriate affect, normal mood. ABSENT: agitated, anxious Focused psych exam: ABSENT: delusional, restlessness Skin exam: PRESENT: dry, intact, warm. ABSENT: erythema, rash Results Laboratory Results: 05/18/18 11:10 05/18/18 11:10 05/18/18 05/18/18 05/18/18 11:10 11:10 12:00 WBC 6.4 RBC 3.98 Hgb 12.5 Hct 37.9 MCV 95 MCH 31.4 MCHC 32.9 RDW 16.8 H Plt Count 270 Seg Neutrophils % 77.6 Lymphocytes % 16.2 Monocytes % 5.7 Eosinophils % 0.2 Basophils % 0.3 Absolute Neutrophils 5.0 Absolute Lymphocytes 1.0 Absolute Monocytes 0.4 Absolute Eosinophils 0.0 Absolute Basophils 0.0 Sodium 143.3 Potassium 3.6 Chloride 107 Carbon Dioxide 25 Anion Gap 11 BUN 13 Creatinine 1.27 H Est GFR ( Amer) 55 L Est GFR (Non-Af Amer) 45 L Glucose 132 H Calcium 9.7 Magnesium 2.2 Total Bilirubin 1.9 H AST 33 ALT 34 Alkaline Phosphatase 87 Total Protein 7.5 Albumin 4.3 Urine Color YELLOW Urine Appearance CLEAR Urine pH 7.0 Ur Specific [place] 1.011 Urine Protein NEGATIVE Urine Glucose (UA) NEGATIVE Urine Ketones NEGATIVE Urine Blood SMALL H Urine Nitrite NEGATIVE Ur Leukocyte Esterase NEGATIVE Urine WBC (Auto) 1 Urine RBC (Auto) 2 05/18/18 05/18/18 11:10 11:10 Creatine Kinase 102 CK-MB (CK-2) 0.80 Troponin I 0.034 NT-Pro-B Natriuret Pep 3050 H Impressions: Chest X-Ray 05/18/18 11:19 IMPRESSION: CARDIAC ENLARGEMENT. VASCULAR CONGESTION. Assessment and Plan - Diagnosis (1) Acute on chronic systolic (congestive) heart failure Is this a current diagnosis for this admission?: Yes Plan: The patient was recently admitted in March. She returns emergency department a week after discharge. 3 weeks later she is back in the emergency department. They have been adjusting her diuretics. Her brain Anmol peptide is higher than it has been on the previous visits. She received 160 mg of IV Lasix and has begun diuresing. Her former dose of furosemide was 80 mg twice daily. I will administer 80 mg IV twice daily and monitor her output. (2) Cardiomyopathy Qualifiers: Cardiomyopathy type: ischemic Qualified Code(s): I25.5 - Ischemic cardiomyopathy Is this a current diagnosis for this admission?: Yes Plan: Patient has a history of cocaine use. Her latest ejection fraction was less than 30%. She already has an implanted defibrillator/pacemaker. We will continue her amiodarone as well as metoprolol and other antihypertensives. (3) HTN (hypertension) Qualifiers: Hypertension type: essential hypertension Qualified Code(s): I10 - Essential (primary) hypertension Is this a current diagnosis for this admission?: Yes Plan: As noted above we will continue her current medications but increase the furosemide. Will monitor potassium. (4) Hyperlipidemia Qualifiers: Hyperlipidemia type: pure hypercholesterolemia Qualified Code(s): E78.00 - Pure hypercholesterolemia, unspecified; E78.0 - Pure hypercholesterolemia Is this a current diagnosis for this admission?: Yes Plan: Continue atorvastatin as ordered. (5) CKD (chronic kidney disease), stage III Is this a current diagnosis for this admission?: Yes Plan: Stage III chronic kidney disease. We will monitor with adjustments of medications. (6) Morbid obesity with BMI of 45.0-49.9, adult Is this a current diagnosis for this admission?: Yes Plan: Definitely a comorbidity with her underlying heart disease. Encourage exercise and diet. - Time Time Spent with patient: 55 minutes Medications reviewed and adjusted accordingly: Yes Anticipated discharge: Home Within: within 48 hours - Plan Summary Plan Summary: The patient is in fact feeling better after the 160 mg of furosemide. Her troponins are marginal but this is likely her baseline with her dilated cardiomyopathy. She wanted to consider discharged home. I explained that with her cardiac history I would encourage a more conservative approach.
--- NOTE | 2018-05-20 09:14 | PDOC DISCHARGE SUMMARY ---
General - Admit/Disc Date/PCP Admission Date/Primary Care Provider: 05/18/18 15:10 YI SANCHEZ, DO Discharge Date: 05/19/18 - Discharge Diagnosis (1) Acute on chronic systolic (congestive) heart failure Is this a current diagnosis for this admission?: Yes Summary: The patient continued to diurese. She feels much better today. In light of her recent hospitalizations we discussed going back to 80 mg of Lasix twice a day. In addition we are going to discontinue her lisinopril and start Entresto. She will follow-up with cardiology next week. (2) Cardiomyopathy Is this a current diagnosis for this admission?: Yes Summary: Modify medication regimen as described. Follow-up with cardiology. 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 Will establish a local warehouse lead. (3) HTN (hypertension) Is this a current diagnosis for this admission?: Yes Summary: Adjustment of furosemide as well as substituting Entresto for lisinopril. Follow-up with cardiology. (4) Hyperlipidemia Is this a current diagnosis for this admission?: Yes Summary: Continue atorvastatin (5) Obesity (BMI 30-39.9) Is this a current diagnosis for this admission?: Yes Summary: Diet and exercise (6) CKD (chronic kidney disease), stage III Is this a current diagnosis for this admission?: Yes Summary: Continue to monitor with adjusted medications - Additional Information Resuscitation Status: Full Code Discharge Diet: Cardiac Discharge Activity: Activity As Tolerated, Balance Activity w/Rest, Weigh Daily Prescriptions: Furosemide [Lasix 80 mg Tablet] 80 mg PO BID 30 Days #60 tablet Sacubitril/Valsartan [Entresto 49 mg/51 mg Tablet] 1 tab PO BID 14 Days #28 tablet Home Medications: Amiodarone HCl [Cordarone 200 mg Tablet] 200 mg PO BID 05/18/18 Apixaban [Eliquis 5 mg Tablet] 5 mg PO Q12 05/18/18 Aspirin [Ecotrin 81 mg EC Tablet] 81 mg PO DAILY 05/18/18 Atorvastatin Calcium [Lipitor 80 mg Tablet] 80 mg PO QHS 05/18/18 Buspirone HCl [Buspar 10 mg Tablet] 10 mg PO BID 05/18/18 Famotidine [Pepcid 40 mg Tablet] 40 mg PO BID 05/18/18 Isosorbide Mononitrate [Imdur 60 mg Tablet.er] 60 mg PO DAILY 05/18/18 Melatonin [Melatonin 1 mg Tablet] 1 mg PO QHS 05/18/18 Metoprolol Succinate [Toprol Xl 50 mg Tab.sr] 50 mg PO DAILY 05/18/18 Paroxetine HCl [Paxil 20 mg Tablet] 20 mg PO DAILY 05/18/18 Furosemide [Lasix 80 mg Tablet] 80 mg PO BID 30 Days #60 tablet 05/19/18 Sacubitril/Valsartan [Entresto 49 mg/51 mg Tablet] 1 tab PO BID 14 Days #28 tablet 05/19/18 History of Present Illness Patient complains of: Shortness of breath History of Present Illness: As described above Hospital Course Hospital Course: With immediate response to adjustment in medications the patient is able to discharge to home. Medications are modified as above. She will establish with Dr. Frederick. Physical Exam Vital Signs: Temp Pulse Resp BP Pulse Ox 98.3 F 63 13 143/87 H 91 L 05/19/18 08:22 05/19/18 07:00 05/19/18 08:22 05/19/18 08:22 05/19/18 08:21 Pulse Oximeter Continuous Start: 05/18/18 15:50 Freq: RTQ4 Status: Active Protocol: Document 05/19/18 08:21 [facility] (Rec: 05/19/18 08:21 [facility] [id number]) Pulse Oximetry Assessment Oxygen Saturation (92-100) 91 Equipment Usage Equipment in Use Continuous SpO2 Machine # 5 Intake & Output 05/18/18 05/19/18 05/20/18 06:59 06:59 06:59 Intake Total 300 Output Total 3500 Balance -3200 Weight 96.2 kg General appearance: PRESENT: no acute distress, cooperative, obese Head exam: PRESENT: atraumatic, normocephalic Eye exam: PRESENT: conjunctiva pink. ABSENT: scleral icterus Ear exam: PRESENT: normal external ear exam Mouth exam: PRESENT: moist, tongue midline Neck exam: ABSENT: carotid bruit, lymphadenopathy Respiratory exam: PRESENT: clear to auscultation renu, symmetrical, unlabored. ABSENT: accessory muscle use, rales, rhonchi, wheezes Cardiovascular exam: PRESENT: RRR, +S1, +S2 GI/Abdominal exam: PRESENT: normal bowel sounds, soft. ABSENT: distended, tenderness Rectal exam: PRESENT: deferred Gentrourinary exam: ABSENT: indwelling catheter Extremities exam: ABSENT: pedal edema Neurological exam: PRESENT: alert, awake, oriented to person, oriented to place, oriented to time, oriented to situation, CN II-XII grossly intact Psychiatric exam: PRESENT: appropriate affect, normal mood. ABSENT: agitated, anxious Focused psych exam: ABSENT: delusional, restlessness Skin exam: PRESENT: dry, warm. ABSENT: rash Results Laboratory Results: 05/18/18 11:10 05/18/18 11:10 05/18/18 05/18/18 05/18/18 11:10 11:10 12:00 WBC 6.4 RBC 3.98 Hgb 12.5 Hct 37.9 MCV 95 MCH 31.4 MCHC 32.9 RDW 16.8 H Plt Count 270 Seg Neutrophils % 77.6 Lymphocytes % 16.2 Monocytes % 5.7 Eosinophils % 0.2 Basophils % 0.3 Absolute Neutrophils 5.0 Absolute Lymphocytes 1.0 Absolute Monocytes 0.4 Absolute Eosinophils 0.0 Absolute Basophils 0.0 Sodium 143.3 Potassium 3.6 Chloride 107 Carbon Dioxide 25 Anion Gap 11 BUN 13 Creatinine 1.27 H Est GFR ( Amer) 55 L Est GFR (Non-Af Amer) 45 L Glucose 132 H Calcium 9.7 Magnesium 2.2 Total Bilirubin 1.9 H AST 33 ALT 34 Alkaline Phosphatase 87 Total Protein 7.5 Albumin 4.3 Urine Color YELLOW Urine Appearance CLEAR Urine pH 7.0 Ur Specific [place] 1.011 Urine Protein NEGATIVE Urine Glucose (UA) NEGATIVE Urine Ketones NEGATIVE Urine Blood SMALL H Urine Nitrite NEGATIVE Ur Leukocyte Esterase NEGATIVE Urine WBC (Auto) 1 Urine RBC (Auto) 2 05/18/18 05/18/18 05/18/18 11:10 11:10 19:48 Creatine Kinase 102 81 CK-MB (CK-2) 0.80 Troponin I 0.034 NT-Pro-B Natriuret Pep 3050 H 05/18/18 05/19/18 05/19/18 19:48 01:45 01:45 Creatine Kinase 77 CK-MB (CK-2) 0.73 0.78 Troponin I 0.044 0.036 NT-Pro-B Natriuret Pep Impressions: Chest X-Ray 05/19/18 06:00 IMPRESSION: STABLE APPEARANCE OF THE CHEST. Qualifiers - * PATIENT BEING DISCHARGED WITH ANY OF THE FOLLOWING DIAGNOSIS: Heart Failure HF Pt being discharged on ACEI for LVEF less than 40%?: Yes HF Pt being discharged on ARBS for LVEF less than 40%?: Yes HF Pt with Afib discharged with Warfarin?: No Reason(s) for not prescribing Warfarin:: Not indicated HF Pt discharged on evidence-based Beta Rangel:: Yes Plan Time Spent: Greater than 30 Minutes
== END 2018-05-19 12:44 | disposition home or self-care (01) ==
LOC: ER 10:10 → INTOOBSV 15:10 → EH 15:10 → 5 17:47
PROVIDERS: ADMIT Hospitalist; ATTEND Internal Medicine
DX: I13.0 Hypertensive heart and chronic kidney disease with heart failure and stage 1 through stage 4 chronic kidney disease, or unspecified chronic kidney disease (principal); I50.23 Acute on chronic systolic (congestive) heart failure; N18.3 Chronic kidney disease, stage 3 (moderate); I25.5 Ischemic cardiomyopathy; E78.5 Hyperlipidemia, unspecified; E66.9 Obesity, unspecified; I25.2 Old myocardial infarction; R51 Headache; R05 Cough; Z68.39 Body mass index [BMI] 39.0-39.9, adult; Z79.82 Long term (current) use of aspirin; Z79.899 Other long term (current) drug therapy; Z79.02 Long term (current) use of antithrombotics/antiplatelets; Z87.891 Personal history of nicotine dependence; Z95.5 Presence of coronary angioplasty implant and graft; Z95.1 Presence of aortocoronary bypass graft; Z95.810 Presence of automatic (implantable) cardiac defibrillator
CPT/HCPCS: 93005 ×2; 99291; 51702; 96374; 36415; 82553 ×2; 82550 ×2; 83735; 85025; 80053; 81001; 84484 ×2; 80307; 83880; 93306; 71045 ×2; 93010 ×2; 94762; J3490 ×11; J1940 ×2

== ENCOUNTER 2018-06-05 10:50 | Inpatient (IN) | payer MEDICAID ==
--- NOTE | 2018-06-05 11:21 | ER Document Report ---
ED Medical Screen (RME) - General Chief Complaint: Shortness Of Breath Stated Complaint: SHORTNESS OF BREATH Time Seen by Provider: 06/05/18 11:14 Primary Care Provider: YI SANCHEZ DO [Primary Care Provider] - Follow up as needed Mode of Arrival: Wheelchair Information source: Patient Notes: Patient is a 47-year-old female with past medical history of CHF who presents the emergency department with shortness of breath has been ongoing for approximately 2 days now. Patient reports worsening this morning. Patient reports she usually takes 80 mg of Lasix twice daily, states she has been compliant with her medications. Patient states she cannot lay down. Patient visibly short of breath and speaking in short sentences. Rales noted bilaterally. Patient upgraded to [facility]AGROS 2, called for a room. I have greeted and performed a rapid initial assessment of this patient. A comprehensive ED assessment and evaluation of the patient, analysis of test results and completion of the medical decision making process will be conducted by additional ED providers. Dictation of this chart was performed using voice recognition software; therefore, there may be some unintended grammatical errors. TRAVEL OUTSIDE OF THE [place] IN LAST 30 DAYS: No - Related Data Allergies/Adverse Reactions: egg [Egg] Allergy (Verified 06/05/18 10:55) hydrocodone [From Vicodin] Allergy (Verified 06/05/18 10:55) diphenhydramine HCl [From Benadryl] Adverse Reaction (Verified 06/05/18 10:55) chest pain, bigemeny rhythm Past Medical History - Social History Family history: Reviewed & Not Pertinent - Past Medical History Cardiac Medical History: Reports: Hx Congestive Heart Failure, Hx Heart Attack - 1-2 YRS AGO, Hx Hypercholesterolemia, Hx Hypertension - ON MEDS Pulmonary Medical History: Reports: Hx COPD Denies: Hx Asthma Neurological Medical History: Denies: Hx Cerebrovascular Accident, Hx Seizures Renal/ Medical History: Reports: Hx Kidney Stones, Hx Renal Insufficiency. Denies: Hx Peritoneal Dialysis GI Medical History: Reports: Hx Gastroesophageal Reflux Disease. Denies: Hx Hepatitis, Hx Hiatal Hernia, Hx Ulcer Psychiatric Medical History: Reports: Hx Anxiety, Hx Depression, Hx Schizophrenia Infectious Medical History: Denies: Hx Hepatitis Past Surgical History: Reports: Hx Cardiac Catheterization - multiple stents, Hx Cardiac Surgery - pacemaker, CABG, Hx Section, Hx Coronary Artery Bypass Graft - 2006, Hx Hysterectomy, Hx Open Heart Surgery - BYPASS 2006, Hx Pacemaker - X2, DEC 2013, Hx Tubal Ligation. Denies: Hx Mastectomy - Immunizations Hx Diphtheria, Pertussis, Tetanus Vaccination: Yes Physical Exam - Vital signs Vitals: Temp Pulse Resp BP Pulse Ox 98.0 F 60 20 139/91 H 93 06/05/18 11:10 06/05/18 11:10 06/05/18 11:10 06/05/18 11:10 06/05/18 11:10 Course - Vital Signs Vital signs: Temp Pulse Resp BP Pulse Ox 98.0 F 60 20 139/91 H 93 06/05/18 11:10 06/05/18 11:10 06/05/18 11:10 06/05/18 11:10 06/05/18 11:10 Doctor's Discharge - Discharge Referrals: YI SANHCEZ DO [Primary Care Provider] - Follow up as needed
--- NOTE | 2018-06-05 11:31 | ER Document Report ---
ED General - General Chief Complaint: Shortness Of Breath Stated Complaint: SHORTNESS OF BREATH Time Seen by Provider: 06/05/18 11:14 Primary Care Provider: YI SANCHEZ DO [Primary Care Provider] - Follow up as needed Mode of Arrival: Wheelchair Notes: 47-year-old lady with end-stage heart failure, ICD in place, presents with worsening shortness of breath especially on exertion but also at rest also having intermittent chest pressure. She is gained 4 pounds of her baseline, so was told to take an extra Lasix and come to the emergency room. She says her legs are more swollen than usual. He also having bilateral back pain nonpleuritic mostly positional. TRAVEL OUTSIDE OF THE [place] IN LAST 30 DAYS: No - Related Data Allergies/Adverse Reactions: egg [Egg] Allergy (Verified 06/05/18 10:55) hydrocodone [From Vicodin] Allergy (Verified 06/05/18 10:55) diphenhydramine HCl [From Benadryl] Adverse Reaction (Verified 06/05/18 10:55) chest pain, bigemeny rhythm Past Medical History - General Information source: Patient - Social History Smoking Status: Former Smoker Family History: Reviewed & Not Pertinent - Past Medical History Cardiac Medical History: Reports: Hx Congestive Heart Failure, Hx Heart Attack - 1-2 YRS AGO, Hx Hypercholesterolemia, Hx Hypertension - ON MEDS Pulmonary Medical History: Reports: Hx COPD Denies: Hx Asthma Neurological Medical History: Denies: Hx Cerebrovascular Accident, Hx Seizures Renal/ Medical History: Reports: Hx Kidney Stones, Hx Renal Insufficiency. Denies: Hx Peritoneal Dialysis GI Medical History: Reports: Hx Gastroesophageal Reflux Disease. Denies: Hx Hepatitis, Hx Hiatal Hernia, Hx Ulcer Psychiatric Medical History: Reports: Hx Anxiety, Hx Depression, Hx Schizo phrenia Infectious Medical History: Denies: Hx Hepatitis Past Surgical History: Reports: Hx Cardiac Catheterization - multiple stents, Hx Cardiac Surgery - pacemaker, CABG, Hx Section, Hx Coronary Artery Bypass Graft - 2006, Hx Hysterectomy, Hx Open Heart Surgery - BYPASS 2006, Hx Pacemaker - , DEC 2013, Hx Tubal Ligation. Denies: Hx Mastectomy - Immunizations Hx Diphtheria, Pertussis, Tetanus Vaccination: Yes Hx Pneumococcal Vaccination: 04/04/12 Review of Systems - Review of Systems Notes: REVIEW OF SYSTEMS GEN: Denies fever, chills, weight loss. Positive diaphoresis. ENT: Denies sore throat, nasal discharge, ear pain EYES: Denies blurry vision, eye pain, discharge CV: Chest pain edema RESP: This of breath GI: Denies abdominal pain, nausea, vomiting, diarrhea MSK: Denies joint pain/swelling, edema, SKIN: Denies rash, skin lesions LYMPH: Denies swollen glands/lymph nodes NEURO: Denies headache, focal weakness or numbness, dizziness PSYCH: Denies depression, suicidal or homicidal ideation PHYSICAL EXAMINATION General: An upright speaking in 3 word sentences Head: Atraumatic, normocephalic ENT: Mouth normal, oropharynx moist, no exudates or tonsillar enlargement Eyes: Conjunctiva normal, pupils equal, lids normal Neck: No JVD, supple, no guarding CVS: S3 present, normal rate and regular Resp: Slightly tachypneic with decreased breath sounds at bilateral bases GI: Nondistended, soft, no tenderness to palpation, no rebound or guarding Ext: No deformities, symmetric 2+ edema, normal range of motion in upper and lower ext Back: No CVA or midline TTP Skin: No rash, warm Lymphatic: No lymphadeopathy noted Neuro: Awake, alert. Face symmetric. GCS 15. Physical Exam - Vital signs Vitals: Temp Pulse Resp BP Pulse Ox 98.0 F 60 20 139/91 H 93 06/05/18 11:10 06/05/18 11:10 06/05/18 11:10 06/05/18 11:10 06/05/18 11:10 Course - Re-evaluation Re-evalutation: 06/05/18 13:22 Patient presents with volume overload. This is likely her diagnosis based on gradual nature, weight gain, and crackles. She had labs and EKG and chest x-ray done. Chest x-ray shows increased interstitial prominence. Labs show hypokalemia, which has begun to replete. She also has an elevated BNP. I have given her a dose of 80 IV Lasix. Benny Conrad for admission. ACS but he asked me to add a troponin so I did. Her EKG is nonischemic. - Vital Signs Vital signs: Temp Pulse Resp BP Pulse Ox 98.0 F 60 16 146/97 H 98 06/05/18 11:10 06/05/18 11:10 06/05/18 11:29 06/05/18 11:29 06/05/18 11:29 - Laboratory Result Diagrams: 06/05/18 11:44 06/05/18 11:44 Laboratory results interpreted by me: 06/05/18 06/05/18 06/05/18 11:44 11:44 11:48 RBC 3.71 L Hgb 11.6 L Hct 35.0 L RDW 15.8 H NT-Pro-B Natriuret Pep 2840 H Urine Blood SMALL H - Diagnostic Test Radiology reviewed: Image reviewed, Reports reviewed - EKG Interpretation by Me EKG shows normal: Sinus rhythm Rate: Normal - Paced When compared to previous EKG there are: No significant change Discharge - Discharge Clinical Impression: Acute exacerbation of CHF (congestive heart failure) Qualifiers: Heart failure type: diastolic Qualified Code(s): I50.33 - Acute on chronic diastolic (congestive) heart failure Condition: Fair Disposition: ADMITTED OBSERVATION Admitting Provider: Nerissa (Hospitalist) Unit Admitted: Telemetry Referrals: YI SANCHEZ DO [Primary Care Provider] - Follow up as needed
--- NOTE | 2018-06-05 11:55 | RADIOLOGY REPORT (SQ) ---
EXAM DESCRIPTION: CHEST SINGLE VIEW COMPLETED DATE/TIME: 06/05/2018 11:41 am REASON FOR STUDY: SOB COMPARISON: 05/19/2018 EXAM PARAMETERS: NUMBER OF VIEWS: One view. TECHNIQUE: Single frontal radiographic view of the chest acquired. RADIATION DOSE: NA LIMITATIONS: None. FINDINGS: LUNGS AND PLEURA: Mild stable prominence of the interstitial markings, more so on the rig ht. No pneumothorax or pleural effusion. MEDIASTINUM AND HILAR STRUCTURES: No masses. Contour normal. HEART AND VASCULAR STRUCTURES: Marked generalized cardiomegaly. Chronic mild prominence of the pulm onary vasculature, cephalization. BONES: No acute findings. HARDWARE: Prior anterior median sternotomy and defibrillator. OTHER: No other significant finding. IMPRESSION: 1. Stable appearance to the chest since the prior study dated 05/19/2018. Generalized m arked cardiomegaly. Stable mild prominence of the pulmonary vasculature. TECHNICAL DOCUMENTATION: JOB ID: [id number] [employer]- All Rights Reserved Reading location - IP/workstation name: [email or web address]
[2018-06-05 12:09] LABS: APPEARANCE,URINE CLEAR; BILIRUBIN,URINE NEGATIVE (NEGATIVE); COLOR,URINE YELLOW; GLUCOSE, URINE NEGATIVE (NEGATIVE); KETONES,URINE NEGATIVE (NEGATIVE); LEUKOCYTE ESTERASE,URINE NEGATIVE (NEGATIVE); NITRITE,URINE NEGATIVE (NEGATIVE); PROTEIN,URINE NEGATIVE (NEGATIVE); URINE SPECIFIC GRAVITY 1.012; UROBILINOGEN,URINE NEGATIVE mg/dL (<2.0)
[2018-06-05 12:21] LABS: ABSOLUTE LYMPHOCYTES (AUTO) 1.7 10^3/uL (0.5-4.7); ABSOLUTE MONOCYTES (AUTO) 0.5 10^3/uL (0.1-1.4); ABSOLUTE NEUT (AUTO) 4.1 10^3/uL (1.7-8.2); BASOPHILS % (AUTO) 0.7 % (0-2); EOSINOPHILS % (AUTO) 0.2 % (0-6); HEMOGLOBIN 11.6 g/dL (12.0-15.5); LYMPHOCYTES % (AUTO) 27.2 % (13-45); MEAN CORPUSCULAR HEMOGLOBIN 31.3 pg (27.0-33.4); MEAN CORPUSCULAR HGB CONC 33.2 g/dL (32.0-36.0); MEAN CORPUSCULAR VOLUME 94 fl (80-97); MONOCYTES % (AUTO) 7.7 % (3-13); PLATELET COUNT 359 10^3/uL (150-450); RED BLOOD COUNT 3.71 10^6/uL (3.72-5.28); RED CELL DISTRIBUTION WIDTH 15.8 % (11.5-14.0); SEGMENTED NEUTROPHILS % (AUTO) 64.2 % (42-78); TOTAL CELLS COUNTED % (AUTO) 100 %; WHITE BLOOD COUNT 6.3 10^3/uL (4.0-10.5)
[2018-06-05 12:43] LABS: ALANINE AMINOTRANSFERASE 52 U/L (9-52); ALKALINE PHOSPHATASE 91 U/L (38-126); ASPARTATE AMINO TRANSFERASE 67 U/L (14-36); BILIRUBIN,DIRECT 0.3 mg/dL (0.0-0.4); BILIRUBIN,TOTAL 0.8 mg/dL (0.2-1.3); BLOOD UREA NITROGEN 26 mg/dL (7-20); CALCIUM 8.8 mg/dL (8.4-10.2); GLUCOSE 94 mg/dL (75-110); POTASSIUM 3.9 mmol/L (3.6-5.0); TOTAL PROTEIN 7.3 g/dL (6.3-8.2)
[2018-06-05] MEDS ORDERED: FUROSEMIDE INJ/PF 40 MG/4 ML SDV IV ONE (13:16)
[2018-06-05 13:23] LABS: ANION GAP 8 (5-19); CARBON DIOXIDE 26 mmol/L (22-30); CHLORIDE 110 mmol/L (98-107)
[2018-06-05] MEDS ORDERED: ONDANSETRON HCL INJ/PF 4 MG/2 ML SDV IV PRN (15:37)
[2018-06-05] MEDS ORDERED: LEVALBUTEROL HCL NEB 0.63 MG/3 ML AMPUL NEB PRN (15:37)
[2018-06-05] MEDS ORDERED: FUROSEMIDE INJ/PF 40 MG/4 ML SDV IV SCH ×2 (16:00)
--- NOTE | 2018-06-05 16:02 | PDOC H&P ---
History of Present Illness Admission Date/PCP: 06/05/18 13:26 YI SANCHEZ DO Patient complains of: Weight gain and increased shortness of breath History of Present Illness: FRANKI DEL ROSARIO is a 47 year old female with history of congestive heart failure with EF of less than 20%, morbid obesity, AICD placement, depression, hypertension came to the emergency room with increasing weight gain. Associated with increasing shortness of breath. She took extra Lasix with out much help decided to came to the emergency room for further evaluation. The workup was done in the emergency room and BNP is 2840. Troponin is 0.025. X-ray shows massive cardiomegaly and stable chest x-ray. Medical consult was called for admission. Went to talk to the patient patient says she is using to 3 pillows at night to sleep she is gaining weight for the last several days increasing shortness of breath for the last couple of days. She is also complaining of nausea denies any vomiting diarrhea. Denies any headaches dizzy spells. Denies any problems with urination. Denies any rashes. Denies any chest pains or chest tightness. Past Medical History Cardiac Medical History: Reports: Congestive Heart Failure, Myocardial Infarc tion - 1-2 YRS AGO, Hyperlipidema, Hypertension - ON MEDS Pulmonary Medical History: Reports: Chronic Obstructive Pulmonary Disease (COPD) Denies: Asthma Neurological Medical History: Denies: Seizures GI Medical History: Reports: Gastroesophageal Reflux Disease Denies: Hepatitis, Hiatal Hernia Psychiatric Medical History: Reports: Depression Hematology: Denies: Anemia, Sickle Cell Disease Past Surgical History Past Surgical History: Reports: Cardiac Catheterization - multiple stents, Section, Coronary Artery Bypass Graft - 2006, Hysterectomy, Pacemaker - X2, DEC 2013, Tubal Ligation Denies: Amputation, Mastectomy Social History Smoking Status: Former Smoker Frequency of Alcohol Use: Social Hx Recreational Drug Use: Yes Drugs: Cocaine, Marijuana Hx Prescription Drug Abuse: No - Advance Directive Resuscitation Status: Full Code Family History Family History: Reviewed & Not Pertinent Parental Family History Reviewed: Yes Children Family History Reviewed: Yes Sibling(s) Family History Reviewed.: Yes Medication/Allergy Home Medications: Amiodarone HCl [Cordarone 200 mg Tablet] 200 mg PO BID 05/18/18 Apixaban [Eliquis 5 mg Tablet] 5 mg PO Q12 05/18/18 Aspirin [Ecotrin 81 mg EC Tablet] 81 mg PO DAILY 05/18/18 Atorvastatin Calcium [Lipitor 80 mg Tablet] 80 mg PO QHS 05/18/18 Buspirone HCl [Buspar 10 mg Tablet] 10 mg PO BID 05/18/18 Famotidine [Pepcid 40 mg Tablet] 40 mg PO BID 05/18/18 Isosorbide Mononitrate [Imdur 60 mg Tablet.er] 60 mg PO DAILY 05/18/18 Melatonin [Melatonin 1 mg Tablet] 1 mg PO QHS 05/18/18 Metoprolol Succinate [Toprol Xl 50 mg Tab.sr] 50 mg PO DAILY 05/18/18 Paroxetine HCl [Paxil 20 mg Tablet] 20 mg PO DAILY 05/18/18 Furosemide [Lasix 80 mg Tablet] 80 mg PO BID 30 Days #60 tablet 05/19/18 Sacubitril/Valsartan [Entresto 49 mg/51 mg Tablet] 1 tab PO BID 14 Days #28 tablet 05/19/18 Allergies/Adverse Reactions: egg [Egg] Allergy (Verified 06/05/18 10:55) hydrocodone [From Vicodin] Allergy (Verified 06/05/18 10:55) diphenhydramine HCl [From Benadryl] Adverse Reaction (Verified 06/05/18 10:55) chest pain, bigemeny rhythm Review of Systems Constitutional: PRESENT: fatigue, weakness, weight gain. ABSENT: fever(s), headache(s) Eyes: ABSENT: visual disturbances Ears: ABSENT: hearing changes Nose, Mouth, and Throat: ABSENT: sore throat Cardiovascular: PRESENT: dyspnea on exertion, edema, orthropnea Respiratory: PRESENT: cough, dyspnea Gastrointestinal: PRESENT: nausea. ABSENT: coffee ground emesis, constipation, diarrhea, heartburn, hematemesis Genitourinary: ABSENT: dysuria Neurological: ABSENT: abnormal gait, abnormal speech, confusion, dizziness, focal weakness, syncope Psychiatric: PRESENT: anxiety Physical Exam Vital Signs: Temp Pulse Resp BP Pulse Ox 98.0 F 60 16 146/97 H 98 06/05/18 11:10 06/05/18 11:10 06/05/18 11:29 06/05/18 11:29 06/05/18 11:29 Intake & Output 06/04/18 06/05/18 06/06/18 06:59 06:59 06:59 Output Total 1600 Balance -1600 Weight 93.44 kg General appearance: PRESENT: mild distress, obese Head exam: PRESENT: atraumatic Eye exam: PRESENT: PERRLA Mouth exam: PRESENT: moist, tongue midline Neck exam: PRESENT: JVD Respiratory exam: PRESENT: crackles, decreased breath sounds, rhonchi, wheezes Cardiovascular exam: PRESENT: tachycardia, other - pacemaker/AICD present Extremities exam: PRESENT: +1 edema Neurological exam: PRESENT: alert, awake, oriented to person, oriented to place, oriented to time, oriented to situation, CN II-XII grossly intact. ABSENT: motor sensory deficit Psychiatric exam: PRESENT: appropriate affect, normal mood. ABSENT: homicidal ideation, suicidal ideation Results Laboratory Results: 06/05/18 11:44 06/05/18 11:44 06/05/18 06/05/18 06/05/18 11:44 11:44 11:48 WBC 6.3 RBC 3.71 L Hgb 11.6 L Hct 35.0 L MCV 94 MCH 31.3 MCHC 33.2 RDW 15.8 H Plt Count 359 Seg Neutrophils % 64.2 Lymphocytes % 27.2 Monocytes % 7.7 Eosinophils % 0.2 Basophils % 0.7 Absolute Neutrophils 4.1 Absolute Lymphocytes 1.7 Absolute Monocytes 0.5 Absolute Eosinophils 0.0 Absolute Basophils 0.0 Sodium 144.0 Potassium 3.9 Chloride 110 H Carbon Dioxide 26 Anion Gap 8 BUN 26 H Creatinine 1.68 H Est GFR ( Amer) 40 L Est GFR (Non-Af Amer) 33 L Glucose 94 Calcium 8.8 Total Bilirubin 0.8 AST 67 H ALT 52 Alkaline Phosphatase 91 Total Protein 7.3 Albumin 4.0 Urine Color YELLOW Urine Appearance CLEAR Urine pH 6.0 Ur Specific Walker 1.012 Urine Protein NEGATIVE Urine Glucose (UA) NEGATIVE Urine Ketones NEGATIVE Urine Blood SMALL H Urine Nitrite NEGATIVE Ur Leukocyte Esterase NEGATIVE Urine WBC (Auto) 1 Urine RBC (Auto) 2 06/05/18 06/05/18 11:44 13:43 Troponin I 0.025 NT-Pro-B Natriuret Pep 2840 H Impressions: Chest X-Ray 06/05/18 11:19 IMPRESSION: 1. Stable appearance to the chest since the prior study dated 05/19/2018. Generalized marked cardiomegaly. Stable mild prominence of the pulmonary vasculature. Assessment and Plan - Diagnosis (1) CHF exacerbation Qualifiers: Heart failure type: systolic Qualified Code(s): I50.23 - Acute on chronic systolic (congestive) heart failure Is this a current diagnosis for this admission?: No Plan: 06/05/2018 patient is going to be admitted for CHF exacerbation. Latest echocardiogram shows EF is between 20-25%. She is taking Lasix at home without any help. Plan to put her in IMCU she is a full code. Started on Lasix 40 mg IV twice a day home medications are resumed. Patient is on apixaban plan is to continue the medication. GI prophylaxis provided. Daily weight is going to be requested. And dietary consult was requested. At home she is on amiodarone 200 mg twice a day, Effexor 0.5 mg twice a day, aspirin 81 mg p.o. daily, atorvastatin 80 mg bedtime furosemide 80 mg twice daily Toprol 50 mg daily Entresto 49/15 mg twice a day. Those medications are resumed. pt is placed in a fluid restriction 1500 mL/day. (2) HTN (hypertension) Qualifiers: Hypertension type: essential hypertension Qualified Code(s): I10 - Essential (primary) hypertension Is this a current diagnosis for this admission?: No Plan: 06/05/2018 patient has history of hypertension to with heart rate of 116. Started on Lasix 80 mg twice a day, Entresto, metoprolol. And is going to be placed on low-sodium diet and a dietary consult was requested. (3) Anxiety Is this a current diagnosis for this admission?: No Plan: 06/05/2018 patient has history of anxiety depression on paroxetine 20 mg daily for 10 mg p.o. twice daily at home those medications are resumed. (4) Hyperlipidemia Is this a current diagnosis for this admission?: No Plan: 06/05/2018-patient has history of hyperlipidemia on atorvastatin 80 mg p.o. nightly the medication was resumed in the hospital. (5) Morbid obesity Is this a current diagnosis for this admission?: No Plan: 06/05/2018 patient's BMI is more than 45 diet exercise weight loss lifestyle modifications are discussed dietary consult was requested. - Time Time Spent with patient: 25-34 minutes Medications reviewed and adjusted accordingly: Yes Anticipated discharge: Home
[2018-06-05] MEDS: ISOSORBIDE MONONITRATE 60 MG TAB.ER.24H PO SCH (16:50)
[2018-06-05] MEDS: ASPIRIN 81 MG TABLET, ENT COATED PO SCH (16:50)
[2018-06-05] MEDS: METOPROLOL SUCCINATE 50 MG TAB.SR.24H PO SCH (16:50)
[2018-06-05] MEDS: PAROXETINE HCL 20 MG TABLET PO SCH (16:50)
[2018-06-05] MEDS: BUSPIRONE HCL 10 MG TABLET PO SCH (18:14)
[2018-06-05] MEDS: APIXABAN 5 MG TABLET PO SCH (18:14)
[2018-06-05] MEDS: DOCUSATE SODIUM 100 MG/10 ML UDC PO SCH (18:14)
[2018-06-05] MEDS: FAMOTIDINE 20 MG TABLET PO SCH (18:14)
[2018-06-05] MEDS: AMIODARONE HCL 200 MG TABLET PO SCH (18:15)
--- NOTE | 2018-06-05 20:47 | EKG REPORT ---
SEVERITY:- ABNORMAL ECG - A-V DUAL-PACED RHYTHM WITH SOME INHIBITION : Confirmed by: Verna Frederick 05-Jun-2018 20:46:16
[2018-06-05] MEDS: SACUBITRIL/VALSARTAN 49 MG/51 MG TABLET PO SCH (21:23)
[2018-06-05] MEDS: ATORVASTATIN CALCIUM 80 MG TABLET PO SCH (21:23)
[2018-06-05] MEDS: MELATONIN 1 MG TABLET PO SCH (21:23)
[2018-06-05] MEDS: FUROSEMIDE INJ/PF 100 MG/10 ML SDV IV SCH (21:23)
--- NOTE | 2018-06-05 23:59 | EKG REPORT ---
SEVERITY:- ABNORMAL ECG - A-V DUAL-PACED RHYTHM WITH SOME INHIBITION : Confirmed by: Verna Frederick 05-Jun-2018 23:59:23
[2018-06-06 04:14] LABS: ABSOLUTE LYMPHOCYTES (AUTO) 1.1 10^3/uL (0.5-4.7); ABSOLUTE MONOCYTES (AUTO) 0.4 10^3/uL (0.1-1.4); ABSOLUTE NEUT (AUTO) 2.8 10^3/uL (1.7-8.2); BASOPHILS % (AUTO) 0.8 % (0-2); EOSINOPHILS % (AUTO) 0.3 % (0-6); HEMATOCRIT 37.2 % (36.0-47.0); HEMOGLOBIN 12.6 g/dL (12.0-15.5); MEAN CORPUSCULAR HEMOGLOBIN 31.5 pg (27.0-33.4); MEAN CORPUSCULAR HGB CONC 33.8 g/dL (32.0-36.0); MEAN CORPUSCULAR VOLUME 93 fl (80-97); MONOCYTES % (AUTO) 8.7 % (3-13); PLATELET COUNT 326 10^3/uL (150-450); RED BLOOD COUNT 3.99 10^6/uL (3.72-5.28); SEGMENTED NEUTROPHILS % (AUTO) 64.2 % (42-78); TOTAL CELLS COUNTED % (AUTO) 100 %; WHITE BLOOD COUNT 4.3 10^3/uL (4.0-10.5)
[2018-06-06 04:38] LABS: ALANINE AMINOTRANSFERASE 55 U/L (9-52); ALBUMIN 3.9 g/dL (3.5-5.0); ALKALINE PHOSPHATASE 104 U/L (38-126); ANION GAP 7 (5-19); ASPARTATE AMINO TRANSFERASE 48 U/L (14-36); BILIRUBIN,DIRECT 0.4 mg/dL (0.0-0.4); BILIRUBIN,TOTAL 1.4 mg/dL (0.2-1.3); BLOOD UREA NITROGEN 18 mg/dL (7-20); CALCIUM 9.1 mg/dL (8.4-10.2); CARBON DIOXIDE 28 mmol/L (22-30); CHLORIDE 108 mmol/L (98-107); GLUCOSE 115 mg/dL (75-110); POTASSIUM 3.4 mmol/L (3.6-5.0); TOTAL PROTEIN 7.2 g/dL (6.3-8.2); TRIGLYCERIDES 352 mg/dL (<150)
[2018-06-06 04:49] LABS: DIRECT LDL 96 mg/dL (<100)
[2018-06-06 04:53] LABS: INTERNATIONAL RATION (INR) 1.17; PROTHROMBIN TIME 15.5 SEC (11.4-15.4)
[2018-06-06 05:04] LABS: VLDL CHOLESTEROL 70.4 mg/dL (10-31)
[2018-06-06] MEDS: APIXABAN 5 MG TABLET PO SCH ×2 (06:43→17:08)
[2018-06-06] MEDS: SACUBITRIL/VALSARTAN 49 MG/51 MG TABLET PO SCH ×2 (09:10→22:19)
[2018-06-06] MEDS: AMIODARONE HCL 200 MG TABLET PO SCH ×2 (09:10→17:08)
[2018-06-06] MEDS: BUSPIRONE HCL 10 MG TABLET PO SCH ×2 (09:10→17:08)
[2018-06-06] MEDS: ASPIRIN 81 MG TABLET, ENT COATED PO SCH (09:10)
[2018-06-06] MEDS: FAMOTIDINE 20 MG TABLET PO SCH ×2 (09:10→17:08)
[2018-06-06] MEDS: DOCUSATE SODIUM 100 MG/10 ML UDC PO SCH ×2 (09:10→17:08)
[2018-06-06] MEDS: METOPROLOL SUCCINATE 50 MG TAB.SR.24H PO SCH (09:10)
[2018-06-06] MEDS: PAROXETINE HCL 20 MG TABLET PO SCH (09:15)
[2018-06-06] MEDS: FUROSEMIDE INJ/PF 100 MG/10 ML SDV IV SCH ×2 (09:15→22:20)
[2018-06-06] MEDS: ISOSORBIDE MONONITRATE 60 MG TAB.ER.24H PO SCH (09:15)
[2018-06-06] MEDS ORDERED: ENOXAPARIN SODIUM INJ 40 MG/0.4 ML DISP.SYRIN SUBCUT SCH (10:00)
[2018-06-06] MEDS ORDERED: METOLAZONE 2.5 MG TABLET PO ONE (11:00)
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
[2018-06-06] MEDS: ALPRAZOLAM 0.5 MG TABLET PO SCH (17:08)
[2018-06-06] MEDS: ATORVASTATIN CALCIUM 80 MG TABLET PO SCH (22:19)
[2018-06-06] MEDS: MELATONIN 1 MG TABLET PO SCH (22:19)
[2018-06-07] MEDS: APIXABAN 5 MG TABLET PO SCH ×2 (06:16→19:46)
[2018-06-07] MEDS ORDERED: METOLAZONE 2.5 MG TABLET PO SCH (10:00)
[2018-06-07] MEDS ORDERED: FUROSEMIDE INJ/PF 100 MG/10 ML SDV IV SCH ×2 (10:00)
[2018-06-07] MEDS: AMIODARONE HCL 200 MG TABLET PO SCH ×2 (10:41→19:46)
[2018-06-07] MEDS: ALPRAZOLAM 0.5 MG TABLET PO SCH ×3 (10:41→19:46)
[2018-06-07] MEDS: SACUBITRIL/VALSARTAN 49 MG/51 MG TABLET PO SCH ×2 (10:42→22:04)
[2018-06-07] MEDS: ASPIRIN 81 MG TABLET, ENT COATED PO SCH (10:42)
[2018-06-07] MEDS: BUSPIRONE HCL 10 MG TABLET PO SCH ×2 (10:43→19:45)
[2018-06-07] MEDS: PAROXETINE HCL 20 MG TABLET PO SCH (10:43)
[2018-06-07] MEDS: DOCUSATE SODIUM 100 MG/10 ML UDC PO SCH ×2 (10:44→19:48)
[2018-06-07] MEDS: ISOSORBIDE MONONITRATE 60 MG TAB.ER.24H PO SCH (13:40)
[2018-06-07] MEDS: METOPROLOL SUCCINATE 50 MG TAB.SR.24H PO SCH (13:43)
[2018-06-07] MEDS: FAMOTIDINE 20 MG TABLET PO SCH ×2 (13:46→19:46)
[2018-06-07] MEDS: FUROSEMIDE INJ/PF 40 MG/4 ML SDV IV SCH (13:57)
--- NOTE | 2018-06-07 14:37 | PDOC PROGRESS REPORT ---
Subjective Progress Note for:: 06/07/18 Subjective:: Patient seen resting in bed comfortably. She is awake alert oriented. I discussed the severity of her congestive heart failure and her ejection fraction was 20% with severely reduced left ventricular function. This is her third admission in less than a month. Patient is relatively hypotensive so I reduced her dose of Lasix from 80 mg 3 times a day to 40 mg once a day. Reason For Visit: CHF EXACERBATION Physical Exam Vital Signs: Temp Pulse Resp BP Pulse Ox 97.5 F 60 15 97/69 L 94 06/07/18 11:43 06/07/18 11:43 06/07/18 11:43 06/07/18 11:43 06/07/18 11:43 Intake & Output 06/06/18 06/07/18 06/08/18 06:59 06:59 06:59 Intake Total 436 Output Total 6613 0422 625 Balance -4830 -2064 -625 Weight 104.3 kg 104.7 kg General appearance: PRESENT: no acute distress Head exam: PRESENT: atraumatic Eye exam: PRESENT: conjunctiva pink Mouth exam: PRESENT: moist Neck exam: ABSENT: carotid bruit, JVD, lymphadenopathy, thyromegaly Respiratory exam: PRESENT: decreased breath sounds Cardiovascular exam: PRESENT: RRR. ABSENT: diastolic murmur, rubs, systolic murmur GI/Abdominal exam: PRESENT: normal bowel sounds, soft. ABSENT: distended, guarding, mass, organolmegaly, rebound, tenderness Neurological exam: PRESENT: alert, awake, oriented to time, oriented to situation Psychiatric exam: PRESENT: normal mood Results Laboratory Results: 06/06/18 03:54 06/06/18 03:54 06/07/18 05:47 Free T4 2.17 06/05/18 06/05/18 06/05/18 11:44 13:43 16:25 Creatine Kinase 110 CK-MB (CK-2) Troponin I 0.025 NT-Pro-B Natriuret Pep 2840 H 06/05/18 06/05/18 06/05/18 16:25 21:35 21:35 Creatine Kinase 96 CK-MB (CK-2) 1.42 1.16 Troponin I NT-Pro-B Natriuret Pep 06/06/18 06/06/18 06/06/18 03:54 03:54 03:54 Creatine Kinase 100 CK-MB (CK-2) 1.26 Troponin I NT-Pro-B Natriuret Pep 2270 H Impressions: Chest X-Ray 06/05/18 11:19 IMPRESSION: 1. Stable appearance to the chest since the prior study dated 05/19/2018. Generalized marked cardiomegaly. Stable mild prominence of the pulmonary vasculature. Assessment and Plan - Diagnosis (1) Acute on chronic systolic congestive heart failure, NYHA class 2 Is this a current diagnosis for this admission?: Yes Plan: Continue current regimen. (2) COPD (chronic obstructive pulmonary disease) Qualifiers: Emphysema type: unspecified Is this a current diagnosis for this admission?: Yes Plan: Continue as needed bronchodilators. (3) Hypertension Qualifiers: Hypertension type: essential hypertension Qualified Code(s): I10 - Essential (primary) hypertension Is this a current diagnosis for this admission?: Yes Plan: Continue current medication (4) Hyperlipidemia Is this a current diagnosis for this admission?: Yes Plan: Continue current regimen (5) Depression Is this a current diagnosis for this admission?: Yes Plan: Continue her buspirone
[2018-06-07] MEDS: MELATONIN 1 MG TABLET PO SCH (22:04)
[2018-06-07] MEDS: ATORVASTATIN CALCIUM 80 MG TABLET PO SCH (22:04)
[2018-06-08] MEDS: APIXABAN 5 MG TABLET PO SCH ×2 (05:42→18:09)
[2018-06-08 06:37] LABS: ANION GAP 12 (5-19); BLOOD UREA NITROGEN 41 mg/dL (7-20); CALCIUM 9.9 mg/dL (8.4-10.2); CARBON DIOXIDE 27 mmol/L (22-30); CHLORIDE 101 mmol/L (98-107); GLUCOSE 126 mg/dL (75-110); POTASSIUM 3.7 mmol/L (3.6-5.0); SODIUM 140.2 mmol/L (137-145)
[2018-06-08] MEDS: ASPIRIN 81 MG TABLET, ENT COATED PO SCH (09:30)
[2018-06-08] MEDS: BUSPIRONE HCL 10 MG TABLET PO SCH ×2 (09:30→18:09)
[2018-06-08] MEDS: FAMOTIDINE 20 MG TABLET PO SCH ×2 (09:30→18:09)
[2018-06-08] MEDS: ALPRAZOLAM 0.5 MG TABLET PO SCH ×4 (09:30→21:15)
[2018-06-08] MEDS: FUROSEMIDE INJ/PF 40 MG/4 ML SDV IV SCH ×2 (09:39→18:13)
[2018-06-08] MEDS: SACUBITRIL/VALSARTAN 49 MG/51 MG TABLET PO SCH ×2 (09:39→22:50)
[2018-06-08] MEDS: ISOSORBIDE MONONITRATE 60 MG TAB.ER.24H PO SCH (09:39)
[2018-06-08] MEDS: AMIODARONE HCL 200 MG TABLET PO SCH ×2 (09:39→18:13)
[2018-06-08] MEDS ORDERED: NORMAL SALINE 1000 ML 1,000 ML IV PRN (09:53)
--- NOTE | 2018-06-08 15:28 | PDOC PROGRESS REPORT ---
Subjective Progress Note for:: 06/08/18 Subjective:: Patient seen while she is propped up in bed. She is awake alert oriented. She is not in pain and distress. Her blood work shows acute kidney injury that her BUN increased to 41 and her creatinine is 2.90 with GFR of 21. Most probably due to aggressive diuresis resulting in volume contraction. I decreased the dose of her Lasix to 20 mg daily and I discontinued his metolazone. Reason For Visit: CHF EXACERBATION Physical Exam Vital Signs: Temp Pulse Resp BP Pulse Ox 97.5 F 59 L 18 107/67 94 06/08/18 08:37 06/08/18 08:37 06/08/18 08:37 06/08/18 08:37 06/08/18 08:37 Intake & Output 06/07/18 06/08/18 06/09/18 06:59 06:59 06:59 Intake Total 436 200 Output Total 2500 925 Balance -2064 -725 Weight 104.7 kg 104.3 kg General appearance: PRESENT: no acute distress Eye exam: PRESENT: conjunctiva pink Mouth exam: PRESENT: moist Neck exam: ABSENT: carotid bruit, JVD, lymphadenopathy, thyromegaly Respiratory exam: PRESENT: clear to auscultation renu. ABSENT: rales, rhonchi, wheezes Cardiovascular exam: PRESENT: RRR. ABSENT: diastolic murmur, rubs, systolic murmur Neurological exam: PRESENT: alert, awake, oriented to time, oriented to situation Results Laboratory Results: 06/06/18 03:54 06/08/18 05:18 06/08/18 05:18 Sodium 140.2 Potassium 3.7 Chloride 101 Carbon Dioxide 27 Anion Gap 12 BUN 41 H Creatinine 2.90 H Est GFR ( Amer) 21 L Est GFR (Non-Af Amer) 17 L Glucose 126 H Calcium 9.9 06/05/18 17:40 Sputum Gram Stain - Final 06/05/18 17:40 Sputum Sputum Culture - Final NORMAL JARED 06/05/18 06/05/18 06/05/18 11:44 13:43 16:25 Creatine Kinase 110 CK-MB (CK-2) Troponin I 0.025 NT-Pro-B Natriuret Pep 2840 H 06/05/18 06/05/18 06/05/18 16:25 21:35 21:35 Creatine Kinase 96 CK-MB (CK-2) 1.42 1.16 Troponin I NT-Pro-B Natriuret Pep 06/06/18 06/06/18 06/06/18 03:54 03:54 03:54 Creatine Kinase 100 CK-MB (CK-2) 1.26 Troponin I NT-Pro-B Natriuret Pep 2270 H Impressions: Chest X-Ray 06/05/18 11:19 IMPRESSION: 1. Stable appearance to the chest since the prior study dated . Generalized marked cardiomegaly. Stable mild prominence of the pulmonary vasculature. Assessment and Plan - Diagnosis (1) Acute kidney injury Is this a current diagnosis for this admission?: Yes Plan: Most probably due to volume contraction secondary to aggressive diuresis. I reduced her Lasix to 20 mg IV daily and I discontinued metolazone. I will gently hydrate her with normal saline at rate of 75 mm/h. (2) Acute on chronic systolic congestive heart failure, NYHA class 2 Is this a current diagnosis for this admission?: Yes Plan: Her shortness of breath is improving. (3) COPD (chronic obstructive pulmonary disease) Qualifiers: Emphysema type: unspecified Is this a current diagnosis for this admission?: Yes Plan: Continue as needed bronchodilators. (4) Hypertension Qualifiers: Hypertension type: essential hypertension Qualified Code(s): I10 - Essential (primary) hypertension Is this a current diagnosis for this admission?: Yes Plan: Continue current medication (5) Hyperlipidemia Is this a current diagnosis for this admission?: Yes Plan: Continue current regimen (6) Depression Is this a current diagnosis for this admission?: Yes Plan: Continue her buspirone
[2018-06-08] MEDS: DOCUSATE SODIUM 100 MG CAPSULE PO SCH ×3 (18:10→18:17)
[2018-06-08] MEDS: PAROXETINE HCL 20 MG TABLET PO SCH (18:12)
[2018-06-08] MEDS: METOPROLOL SUCCINATE 50 MG TAB.SR.24H PO SCH (18:13)
[2018-06-08] MEDS: MELATONIN 1 MG TABLET PO SCH (22:54)
[2018-06-08] MEDS: ATORVASTATIN CALCIUM 80 MG TABLET PO SCH (22:54)
[2018-06-08] MEDS: ACETAMINOPHEN 325 MG TABLET PO PRN (22:58)
[2018-06-09] MEDS: APIXABAN 5 MG TABLET PO SCH ×2 (05:43→17:40)
[2018-06-09] MEDS: ACETAMINOPHEN 325 MG TABLET PO PRN ×2 (05:44→20:20)
[2018-06-09 06:27] LABS: ANION GAP 11 (5-19); BLOOD UREA NITROGEN 56 mg/dL (7-20); CALCIUM 9.4 mg/dL (8.4-10.2); CARBON DIOXIDE 25 mmol/L (22-30); CHLORIDE 105 mmol/L (98-107); GLUCOSE 112 mg/dL (75-110); POTASSIUM 3.7 mmol/L (3.6-5.0); SODIUM 140.5 mmol/L (137-145)
[2018-06-09] MEDS ORDERED: NORMAL SALINE 1000 ML 1,000 ML IV PRN (10:05)
[2018-06-09] MEDS ORDERED: NORMAL SALINE 1000 ML 1,000 ML IV ONE (10:06)
[2018-06-09] MEDS: DOCUSATE SODIUM 100 MG CAPSULE PO SCH ×2 (10:32→17:39)
[2018-06-09] MEDS: BUSPIRONE HCL 10 MG TABLET PO SCH ×2 (10:32→17:38)
[2018-06-09] MEDS: FAMOTIDINE 20 MG TABLET PO SCH ×2 (10:33→17:39)
[2018-06-09] MEDS: ASPIRIN 81 MG TABLET, ENT COATED PO SCH (10:33)
[2018-06-09] MEDS: ALPRAZOLAM 0.5 MG TABLET PO SCH ×3 (10:33→17:39)
[2018-06-09] MEDS: METOPROLOL SUCCINATE 50 MG TAB.SR.24H PO SCH (10:35)
[2018-06-09] MEDS: AMIODARONE HCL 200 MG TABLET PO SCH ×2 (10:35→18:35)
[2018-06-09] MEDS: FUROSEMIDE INJ/PF 40 MG/4 ML SDV IV SCH (10:35)
[2018-06-09] MEDS: SACUBITRIL/VALSARTAN 49 MG/51 MG TABLET PO SCH (10:35)
[2018-06-09] MEDS: ISOSORBIDE MONONITRATE 60 MG TAB.ER.24H PO SCH (10:36)
[2018-06-09] MEDS: PAROXETINE HCL 20 MG TABLET PO SCH (10:37)
--- NOTE | 2018-06-09 15:48 | PDOC PROGRESS REPORT ---
Subjective Progress Note for:: 06/09/18 Subjective:: I seen patient propped up in bed. She is awake alert oriented. She is not in pain or distress. I reviewed her lab and it revealed worsening of her kidney function yesterday her creatinine was 2.9 today it is 3.62. I bolused her with thousand mL of normal saline and maintain her with 125 mm/h. I will check her BMP in a.m. Reason For Visit: CHF EXACERBATION Physical Exam Vital Signs: Temp Pulse Resp BP Pulse Ox 97.2 F 60 16 100/68 96 06/09/18 11:21 06/09/18 11:21 06/09/18 11:21 06/09/18 11:21 06/09/18 11:21 Intake & Output 06/08/18 06/09/18 06/10/18 06:59 06:59 06:59 Intake Total 200 797 100 Output Total 925 600 Balance -725 197 100 Weight 104.3 kg 104.9 kg General appearance: PRESENT: no acute distress Head exam: PRESENT: atraumatic, normocephalic Mouth exam: PRESENT: moist Neck exam: ABSENT: carotid bruit, JVD, lymphadenopathy, thyromegaly Respiratory exam: PRESENT: clear to auscultation renu. ABSENT: rales, rhonchi, wheezes Cardiovascular exam: PRESENT: RRR. ABSENT: diastolic murmur, rubs, systolic murmur GI/Abdominal exam: PRESENT: normal bowel sounds, soft. ABSENT: distended, guarding, mass, organolmegaly, rebound, tenderness Neurological exam: PRESENT: alert, awake, oriented to time, oriented to si tuation Results Laboratory Results: 06/06/18 03:54 06/09/18 05:29 06/09/18 05:29 Sodium 140.5 Potassium 3.7 Chloride 105 Carbon Dioxide 25 Anion Gap 11 BUN 56 H Creatinine 3.62 H Est GFR ( Amer) 16 L Est GFR (Non-Af Amer) 14 L Glucose 112 H Calcium 9.4 06/05/18 17:40 Sputum Gram Stain - Final 06/05/18 17:40 Sputum Sputum Culture - Final NORMAL JARED 06/05/18 06/05/18 06/05/18 11:44 13:43 16:25 Creatine Kinase 110 CK-MB (CK-2) Troponin I 0.025 NT-Pro-B Natriuret Pep 2840 H 06/05/18 06/05/18 06/05/18 16:25 21:35 21:35 Creatine Kinase 96 CK-MB (CK-2) 1.42 1.16 Troponin I NT-Pro-B Natriuret Pep 06/06/18 06/06/18 06/06/18 03:54 03:54 03:54 Creatine Kinase 100 CK-MB (CK-2) 1.26 Troponin I NT-Pro-B Natriuret Pep 2270 H Impressions: Chest X-Ray 06/05/18 11:19 IMPRESSION: 1. Stable appearance to the chest since the prior study dated 05/19/2018. Generalized marked cardiomegaly. Stable mild prominence of the pulmonary vasculature. Assessment and Plan - Diagnosis (1) Acute kidney injury Is this a current diagnosis for this admission?: Yes Plan: Her kidney function is worsening. Patient bolused with thousand mL of normal saline and maintained at 125 mm/h. Nephrology consulted. BMP in a.m. (2) Acute on chronic systolic congestive heart failure, NYHA class 2 Is this a current diagnosis for this admission?: Yes Plan: Her shortness of breath is improving. (3) COPD (chronic obstructive pulmonary disease) Qualifiers: Emphysema type: unspecified Is this a current diagnosis for this admission?: Yes Plan: Continue as needed bronchodilators. (4) Hypertension Qualifiers: Hypertension type: essential hypertension Qualified Code(s): I10 - Essential (primary) hypertension Is this a current diagnosis for this admission?: Yes Plan: Continue current medication (5) Hyperlipidemia Is this a current diagnosis for this admission?: Yes Plan: Continue current regimen (6) Depression Is this a current diagnosis for this admission?: Yes Plan: Continue her buspirone
--- NOTE | 2018-06-09 16:37 | PDOC CONSULTATION ---
Consultation Consult Date: 06/09/18 Consult reason:: Acute on chronic kidney disease. History of Present Illness Admission Date/PCP: 06/05/18 13:26 YI SANCHEZ DO History of Present Illness: FRANKI DEL ROSARIO is a 47 year old female with history of congestive heart failure with EF of less than 20%, AICD placement, ? A. Fibrillation, history of sleep apnea but not on CPAP apparently,hypertension came to the emergency room with increasing shortness of breath, pedal edema and weight gain. Admission X-ray showed massive cardiomegaly.She was begun on intense IV diuretics. She is also taking Entresto. She is become rather hypotensive all over the last couple of days and her creatinine began to rise. Her baseline creatinine is around 1.5. She admits to being on high salt intake. She denies any history of recreational drugs including cocaine. She denies use of any NSAIDs. Past Medical History Cardiac Medical History: Reports: Hyperlipidemia, Myocardial Infarction - 1-2 YRS AGO Pulmonary Medical History: Reports: Chronic Obstructive Pulmonary Disease (COPD) Denies: Asthma Neurological Medical History: Denies: Seizures Renal/ Medical History: Reports: Chronic Kidney Disease Stage III GI Medical History: Reports: Gastroesophageal Reflux Disease Denies: Hepatitis, Hiatal Hernia Psychiatric Medical History: Reports: Depression Past Surgical History Past Surgical History: Reports: Cardiac Catheterization - multiple stents, Section, Coronary Artery Bypass Graft - 2006, Hysterectomy, Pacemaker - X2, DEC 2013, Tubal Ligation Denies: Mastectomy Social History Smoking Status: Former Smoker Number of Years Smokin Last Time Smoked: 2009 Frequency of Alcohol Use: Occasional Hx Recreational Drug Use: Yes Drugs: Marijuana Hx Prescription Drug Abuse: No - Advance Directive Resuscitation Status: Full Code Family History Parental Family History Reviewed: Yes - Denies ESRD. Children Family History Reviewed: No Sibling(s) Family History Reviewed.: No Medication/Allergy Home Medications: Amiodarone HCl [Cordarone 200 mg Tablet] 200 mg PO BID 05/18/18 Apixaban [Eliquis 5 mg Tablet] 5 mg PO Q12 05/18/18 Aspirin [Ecotrin 81 mg EC Tablet] 81 mg PO DAILY 05/18/18 Atorvastatin Calcium [Lipitor 80 mg Tablet] 80 mg PO QHS 05/18/18 Buspirone HCl [Buspar 10 mg Tablet] 10 mg PO BID 05/18/18 Famotidine [Pepcid 40 mg Tablet] 40 mg PO BID 05/18/18 Isosorbide Mononitrate [Imdur 60 mg Tablet.er] 60 mg PO DAILY 05/18/18 Melatonin [Melatonin 1 mg Tablet] 1 mg PO QHS 05/18/18 Metoprolol Succinate [Toprol Xl 50 mg Tab.sr] 50 mg PO DAILY 05/18/18 Paroxetine HCl [Paxil 20 mg Tablet] 20 mg PO DAILY 05/18/18 Furosemide [Lasix 80 mg Tablet] 80 mg PO BID 30 Days #60 tablet 05/19/18 Sacubitril/Valsartan [Entresto 49 mg/51 mg Tablet] 1 tab PO BID 14 Days #28 tablet 05/19/18 Allergies/Adverse Reactions: egg [Egg] Allergy (Verified 06/05/18 10:55) hydrocodone [From Vicodin] Allergy (Verified 06/05/18 10:55) diphenhydramine HCl [From Benadryl] Adverse Reaction (Verified 06/05/18 10:55) chest pain, bigemeny rhythm Review of Systems Constitutional: PRESENT: fatigue, weakness. ABSENT: fever(s), headache(s), night sweats Nose, Mouth, and Throat: ABSENT: mouth pain, sore throat Cardiovascular: PRESENT: dyspnea on exertion, edema, orthropnea. ABSENT: chest pain, palpitations Gastrointestinal: ABSENT: abdominal pain, bloating, diarrhea, dysphagia, heartburn, hematemesis, hematochezia, nausea, vomiting Musculoskeletal: ABSENT: deformity, joint swelling Integumentary: ABSENT: erythema, lesions, pruritus, rash Neurological: ABSENT: abnormal movements, abnormal speech, confusion, focal weakness Hematologic/Lymphatic: ABSENT: easy bruising, lymphadenopathy Physical Exam Vital Signs: Temp Pulse Resp BP Pulse Ox 97.2 F 60 16 100/68 96 06/09/18 11:21 06/09/18 11:21 06/09/18 11:21 06/09/18 11:21 06/09/18 11:21 Intake & Output 06/08/18 06/09/18 06/10/18 06:59 06:59 06:59 Intake Total 200 797 100 Output Total 925 600 Balance -725 197 100 Weight 104.3 kg 104.9 kg General appearance: PRESENT: no acute distress Eye exam: PRESENT: EOMI, PERRLA Ear exam: PRESENT: normal external ear exam Mouth exam: PRESENT: moist, neck supple Neck exam: ABSENT: lymphadenopathy, meningismus, tenderness, thyromegaly, tracheal deviation Respiratory exam: PRESENT: clear to auscultation renu, symmetrical. ABSENT: crackles Cardiovascular exam: PRESENT: +S1, +S2 GI/Abdominal exam: PRESENT: normal bowel sounds, soft. ABSENT: organomegaly, tenderness Neurological exam: PRESENT: alert, awake, oriented to person, oriented to place, oriented to time Skin exam: PRESENT: dry. ABSENT: cyanosis, erythema, mottled, rash Results Laboratory Results: 06/06/18 03:54 06/09/18 05:29 06/09/18 05:29 Sodium 140.5 Potassium 3.7 Chloride 105 Carbon Dioxide 25 Anion Gap 11 BUN 56 H Creatinine 3.62 H Est GFR ( Amer) 16 L Est GFR (Non-Af Amer) 14 L Glucose 112 H Calcium 9.4 06/05/18 06/05/18 06/05/18 11:44 13:43 16:25 Creatine Kinase 110 CK-MB (CK-2) Troponin I 0.025 NT-Pro-B Natriuret Pep 2840 H 06/05/18 06/05/18 06/05/18 16:25 21:35 21:35 Creatine Kinase 96 CK-MB (CK-2) 1.42 1.16 Troponin I NT-Pro-B Natriuret Pep 06/06/18 06/06/18 06/06/18 03:54 03:54 03:54 Creatine Kinase 100 CK-MB (CK-2) 1.26 Troponin I NT-Pro-B Natriuret Pep 2270 H Impressions: Chest X-Ray 06/05/18 11:19 IMPRESSION: 1. Stable appearance to the chest since the prior study dated 05/19/2018. Generalized marked cardiomegaly. Stable mild prominence of the pulmonary vasculature. Assessment & Plan - Diagnosis (1) Acute kidney injury Is this a current diagnosis for this admission?: Yes Plan: Base creatinine of 1.5. She came in with a creatinine of 1.6 and now is currently 3.6. Currently nonoliguric. Most likely a combination of overdiuresis and hypotension. Ensure she is not obstructed and will order renal ultrasound. I will hold off on the Lasix at the moment and agree with the gentle hydration but would not go over 2 L until she is closely reexamined. I would also hold off on the Entresto given her hypotension at the moment. No acute indications for renal replacements. Will monitor. (2) Acute on chronic systolic congestive heart failure, NYHA class 2 Is this a current diagnosis for this admission?: Yes Plan: Much improved clinically as she has much improved relief of her symptoms with her IV diuresis. Advised proper dietary modifications. Advised to avoid any nephrotoxic/cardiotoxic medications. (3) Hypertension Qualifiers: Hypertension type: essential hypertension Qualified Code(s): I10 - Essential (primary) hypertension Is this a current diagnosis for this admission?: Yes Plan: Currently hypotensive. See adjustments in medications being done. (4) Cardiomyopathy Qualifiers: Cardiomyopathy type: ischemic Qualified Code(s): I25.5 - Ischemic cardiomyopathy Plan: Was decompensated but presently stable. I am holding off on the Entresto for the moment and will reintroduce it once her blood pressure gets to be above 110 systolic. (5) Sleep apnea syndrome Plan: She states she has been diagnosed with sleep apnea but I do not understand why she was not put on a CPAP. As per review of the echo done in April of this year she had an RVSP of around 35 mmHg indicative of mild to moderate pulmonary hypertension only.. Advised to discuss with her primary care on discharge.
--- NOTE | 2018-06-09 18:40 | RADIOLOGY REPORT (SQ) ---
EXAM DESCRIPTION: U/S RETROPERITON (RENAL/AORTA) COMPLETED DATE/TIME: 06/09/2018 6:13 pm REASON FOR STUDY: BENNY COMPARISON: None. TECHNIQUE: Dynamic and static grayscale images acquired of the kidneys and bladder and recorded on P ACS. Additional selected color Doppler and spectral images recorded. LIMITATIONS: None. FINDINGS: RIGHT KIDNEY: Normal size. Normal echogenicity. No solid or suspicious masses. No hydronep hrosis. No calcifications. LEFT KIDNEY: Normal size. Normal echogenicity. No solid or suspicious masses. No hydronephrosis. No calcifications. BLADDER: No masses. OTHER FINDINGS: No other significant finding. IMPRESSION: NORMAL RENAL AND BLADDER ULTRASOUND. TECHNICAL DOCUMENTATION: JOB ID: [id number] [employer]- All Rights Reserved Reading location - IP/workstation name: [email or web address]
[2018-06-09] MEDS: ATORVASTATIN CALCIUM 80 MG TABLET PO SCH (21:34)
[2018-06-09] MEDS: MELATONIN 1 MG TABLET PO SCH (21:34)
[2018-06-09 21:35] LABS: APPEARANCE,URINE CLEAR; BILIRUBIN,URINE NEGATIVE (NEGATIVE); COLOR,URINE YELLOW; GLUCOSE, URINE NEGATIVE (NEGATIVE); KETONES,URINE NEGATIVE (NEGATIVE); LEUKOCYTE ESTERASE,URINE TRACE (NEGATIVE); NITRITE,URINE NEGATIVE (NEGATIVE); PROTEIN,URINE NEGATIVE (NEGATIVE); URINE SPECIFIC GRAVITY 1.013; UROBILINOGEN,URINE NEGATIVE mg/dL (<2.0)
[2018-06-10 04:30] LABS: ANION GAP 7 (5-19); BLOOD UREA NITROGEN 40 mg/dL (7-20); CALCIUM 9.1 mg/dL (8.4-10.2); CARBON DIOXIDE 29 mmol/L (22-30); CHLORIDE 107 mmol/L (98-107); GLUCOSE 111 mg/dL (75-110); POTASSIUM 3.6 mmol/L (3.6-5.0); SODIUM 142.6 mmol/L (137-145)
[2018-06-10] MEDS: ACETAMINOPHEN 325 MG TABLET PO PRN ×2 (05:04→22:40)
[2018-06-10] MEDS: APIXABAN 5 MG TABLET PO SCH ×2 (05:05→17:36)
[2018-06-10] MEDS: BUSPIRONE HCL 10 MG TABLET PO SCH ×2 (11:00→17:37)
[2018-06-10] MEDS: METOPROLOL SUCCINATE 50 MG TAB.SR.24H PO SCH (11:00)
[2018-06-10] MEDS: NORMAL SALINE 1000 ML 1,000 ML IV PRN (11:01)
[2018-06-10] MEDS: ISOSORBIDE MONONITRATE 60 MG TAB.ER.24H PO SCH (11:01)
[2018-06-10] MEDS: ALPRAZOLAM 0.5 MG TABLET PO SCH ×3 (11:01→17:38)
[2018-06-10] MEDS: AMIODARONE HCL 200 MG TABLET PO SCH ×2 (11:01→17:37)
[2018-06-10] MEDS: ASPIRIN 81 MG TABLET, ENT COATED PO SCH (11:01)
[2018-06-10] MEDS: PAROXETINE HCL 20 MG TABLET PO SCH (11:01)
[2018-06-10] MEDS: DOCUSATE SODIUM 100 MG CAPSULE PO SCH ×2 (11:01→17:37)
[2018-06-10] MEDS: FAMOTIDINE 20 MG TABLET PO SCH ×2 (11:01→17:36)
[2018-06-10] MEDS: OXYCODONE-ACETAMINOPHEN 5-325 MG TABLET PO PRN ×2 (11:02→21:15)
--- NOTE | 2018-06-10 13:57 | PDOC PROGRESS REPORT ---
Subjective Progress Note for:: 06/10/18 Subjective:: Patient seen propped up in bed. She is awake alert oriented she is not in pain or distress. Her kidney function is improving evidenced by trending of her creatinine from 3.62 to 2.06. I will continue to hydrate her cautiously. Reason For Visit: CHF EXACERBATION Physical Exam Vital Signs: Temp Pulse Resp BP Pulse Ox 97.2 F 60 20 117/73 99 06/10/18 11:27 06/10/18 11:27 06/10/18 11:27 06/10/18 11:27 06/10/18 11:27 Intake & Output 06/09/18 06/10/18 06/11/18 06:59 06:59 06:59 Intake Total 797 2436 50 Output Total 600 Balance 197 2436 50 Weight 104.9 kg 107.3 kg General appearance: PRESENT: no acute distress Head exam: PRESENT: atraumatic Mouth exam: PRESENT: moist Neck exam: ABSENT: carotid bruit, JVD, lymphadenopathy, thyromegaly Respiratory exam: PRESENT: decreased breath sounds Cardiovascular exam: PRESENT: RRR. ABSENT: diastolic murmur, rubs, systolic murmur GI/Abdominal exam: PRESENT: normal bowel sounds, soft. ABSENT: distended, gua rding, mass, organolmegaly, rebound, tenderness Neurological exam: PRESENT: alert, awake, oriented to time, oriented to situation Results Laboratory Results: 06/06/18 03:54 06/10/18 03:40 06/09/18 06/10/18 21:20 03:40 Sodium 142.6 Potassium 3.6 Chloride 107 Carbon Dioxide 29 Anion Gap 7 BUN 40 H Creatinine 2.06 H Est GFR ( Amer) 31 L Est GFR (Non-Af Amer) 26 L Glucose 111 H Calcium 9.1 Urine Color YELLOW Urine Appearance CLEAR Urine pH 5.0 Ur Specific [place] 1.013 Urine Protein NEGATIVE Urine Glucose (UA) NEGATIVE Urine Ketones NEGATIVE Urine Blood SMALL H Urine Nitrite NEGATIVE Ur Leukocyte Esterase TRACE H Urine WBC (Auto) 1 Urine RBC (Auto) 4 06/05/18 06/05/18 06/05/18 11:44 13:43 16:25 Creatine Kinase 110 CK-MB (CK-2) Troponin I 0.025 NT-Pro-B Natriuret Pep 2840 H 06/05/18 06/05/1806/05/19 16:25 21:35 21:35 Creatine Kinase 96 CK-MB (CK-2) 1.42 1.16 Troponin I NT-Pro-B Natriuret Pep 06/06/18 06/06/18 06/06/18 03:54 03:54 03:54 Creatine Kinase 100 CK-MB (CK-2) 1.26 Troponin I NT-Pro-B Natriuret Pep 2270 H Impressions: Chest X-Ray 06/05/18 11:19 IMPRESSION: 1. Stable appearance to the chest since the prior study dated 05/19/2018. Generalized marked cardiomegaly. Stable mild prominence of the pulmonary vasculature. Renal Ultrasound 06/09/18 00:00 IMPRESSION: NORMAL RENAL AND BLADDER ULTRASOUND. Assessment and Plan - Diagnosis (1) Acute kidney injury Is this a current diagnosis for this admission?: Yes Plan: Improving (2) Acute on chronic systolic congestive heart failure, NYHA class 2 Is this a current diagnosis for this admission?: Yes Plan: Her shortness of breath is improving. (3) COPD (chronic obstructive pulmonary disease) Qualifiers: Emphysema type: unspecified Is this a current diagnosis for this admission?: Yes Plan: Continue as needed bronchodilators. (4) Hypertension Qualifiers: Hypertension type: essential hypertension Qualified Code(s): I10 - Essential (primary) hypertension Is this a current diagnosis for this admission?: Yes Plan: Continue current medication (5) Hyperlipidemia Is this a current diagnosis for this admission?: Yes Plan: Continue current regimen (6) Depression Is this a current diagnosis for this admission?: Yes Plan: Continue her buspirone
[2018-06-10] MEDS: ATORVASTATIN CALCIUM 80 MG TABLET PO SCH (21:13)
[2018-06-10] MEDS: MELATONIN 1 MG TABLET PO SCH (22:41)
[2018-06-11] MEDS: NORMAL SALINE 1000 ML 1,000 ML IV PRN ×2 (00:25→13:41)
[2018-06-11] MEDS: APIXABAN 5 MG TABLET PO SCH (05:41)
[2018-06-11] MEDS: FUROSEMIDE INJ/PF 40 MG/4 ML SDV IV SCH (09:42)
[2018-06-11] MEDS: PAROXETINE HCL 20 MG TABLET PO SCH (09:42)
[2018-06-11] MEDS: ASPIRIN 81 MG TABLET, ENT COATED PO SCH (09:42)
[2018-06-11] MEDS: BUSPIRONE HCL 10 MG TABLET PO SCH (09:42)
[2018-06-11] MEDS: METOPROLOL SUCCINATE 50 MG TAB.SR.24H PO SCH (09:42)
[2018-06-11] MEDS: DOCUSATE SODIUM 100 MG CAPSULE PO SCH (09:42)
[2018-06-11] MEDS: ALPRAZOLAM 0.5 MG TABLET PO SCH ×2 (09:42→13:41)
[2018-06-11] MEDS: FAMOTIDINE 20 MG TABLET PO SCH (09:42)
[2018-06-11] MEDS: AMIODARONE HCL 200 MG TABLET PO SCH (09:42)
[2018-06-11] MEDS: ISOSORBIDE MONONITRATE 60 MG TAB.ER.24H PO SCH (09:43)
[2018-06-11 11:14] LABS: ANION GAP 7 (5-19); BLOOD UREA NITROGEN 24 mg/dL (7-20); CALCIUM 9.8 mg/dL (8.4-10.2); CARBON DIOXIDE 29 mmol/L (22-30); CHLORIDE 107 mmol/L (98-107); GLUCOSE 90 mg/dL (75-110); POTASSIUM 4.4 mmol/L (3.6-5.0); SODIUM 142.6 mmol/L (137-145)
[2018-06-11] MEDS: OXYCODONE-ACETAMINOPHEN 5-325 MG TABLET PO PRN (13:43)
--- NOTE | 2018-06-11 14:18 | PDOC DISCHARGE SUMMARY ---
General - Admit/Disc Date/PCP Admission Date/Primary Care Provider: 06/05/18 13:26 YI SANCHEZ, Discharge Date: 06/11/18 - Discharge Diagnosis (1) Acute kidney injury Is this a current diagnosis for this admission?: Yes (2) Acute on chronic systolic congestive heart failure, NYHA class 2 Is this a current diagnosis for this admission?: Yes (3) COPD (chronic obstructive pulmonary disease) Is this a current diagnosis for this admission?: Yes (4) Hypertension Is this a current diagnosis for this admission?: Yes (5) Hyperlipidemia Is this a current diagnosis for this admission?: Yes (6) Depression Is this a current diagnosis for this admission?: Yes - Additional Information Resuscitation Status: Full Code Discharge Diet: Cardiac Discharge Activity: Activity As Tolerated, Balance Activity w/Rest, Weigh Daily Home Medications: Amiodarone HCl [Cordarone 200 mg Tablet] 200 mg PO BID 05/18/18 Apixaban [Eliquis 5 mg Tablet] 5 mg PO Q12 05/18/18 Aspirin [Ecotrin 81 mg EC Tablet] 81 mg PO DAILY 05/18/18 Atorvastatin Calcium [Lipitor 80 mg Tablet] 80 mg PO QHS 05/18/18 Buspirone HCl [Buspar 10 mg Tablet] 10 mg PO BID 05/18/18 Famotidine [Pepcid 40 mg Tablet] 40 mg PO BID 05/18/18 Isosorbide Mononitrate [Imdur 60 mg Tablet.er] 60 mg PO DAILY 05/18/18 Melatonin [Melatonin 1 mg Tablet] 1 mg PO QHS 05/18/18 Metoprolol Succinate [Toprol Xl 50 mg Tab.sr] 50 mg PO DAILY 05/18/18 Paroxetine HCl [Paxil 20 mg Tablet] 20 mg PO DAILY 05/18/18 Furosemide [Lasix 80 mg Tablet] 80 mg PO BID 30 Days #60 tablet 05/19/18 Sacubitril/Valsartan [Entresto 49 mg/51 mg Tablet] 1 tab PO BID 14 Days #28 tablet 05/19/18 History of Present Illness History of Present Illness: FRANKI DEL ROSARIO is a 47 year old female with history of congestive heart failure with EF of less than 20%, morbid obesity, AICD placement, depression, hypertens ion came to the emergency room with increasing weight gain. Associated with increasing shortness of breath. She took extra Lasix with out much help decided to came to the emergency room for further evaluation. The workup was done in the emergency room and BNP is 2840. Troponin is 0.025. X-ray shows massive cardiomegaly and stable chest x-ray. Medical consult was called for admission. Went to talk to the patient patient says she is using to 3 pillows at night to sleep she is gaining weight for the last several days increasing shortness of breath for the last couple of days. She is also complaining of nausea denies any vomiting diarrhea. Denies any headaches dizzy spells. Denies any problems with urination. Denies any rashes. Denies any chest pains or chest tightness. Hospital Course Hospital Course: This is 47 years old black female patient with past medical history of systolic congestive heart failure with ejection fraction less than 20%, COPD, hypertension, hyperlipidemia and anxiety depression presented with chief complaint of unintentional weight gain and shortness of breath. When patient seen in ER by the attending physician patient was in respiratory distress and she has bilateral pitting edema. Her shortness of breath has subsided. Patient able to tolerate mild exertion. Her kidney function recovered yesterday her creatinine was 3.62 today it is 1.41. Vital signs are within normal limits. I seen patient this morning awake alert oriented. She is not in pain or distress. I will continue all her home medications. Patient advised to comply with her heart medications. She is also advised to avoid salt and using [id number] medications. Patient encouraged to keep up her appointment with her cardiologi st. Physical Exam Vital Signs: Temp Pulse Resp BP Pulse Ox 98.1 F 59 L 16 130/79 H 96 06/11/18 11:42 06/11/18 11:42 06/11/18 11:42 06/11/18 11:42 06/11/18 11:42 Intake & Output 06/10/18 06/11/18 06/12/18 06:59 06:59 06:59 Intake Total 2436 1250 1322 Balance 2436 1250 1322 Weight 107.3 kg 110.4 kg General appearance: PRESENT: no acute distress Head exam: PRESENT: atraumatic Eye exam: PRESENT: conjunctiva pink Mouth exam: PRESENT: moist Neck exam: ABSENT: carotid bruit, JVD, lymphadenopathy, thyromegaly Respiratory exam: PRESENT: decreased breath sounds Cardiovascular exam: PRESENT: RRR. ABSENT: diastolic murmur, rubs, systolic murmur Neurological exam: PRESENT: alert, awake, oriented to time, oriented to situation Results Laboratory Results: 06/06/18 03:54 06/11/18 10:35 06/11/18 10:35 Sodium 142.6 Potassium 4.4 Chloride 107 Carbon Dioxide 29 Anion Gap 7 BUN 24 H Creatinine 1.41 H Est GFR ( Amer) 49 L Est GFR (Non-Af Amer) 40 L Glucose 90 Calcium 9.8 06/05/18 16:25 Blood Blood Culture - Final NO GROWTH IN 5 DAYS 06/05/18 16:40 Blood Blood Culture - Final NO GROWTH IN 5 DAYS 06/05/18 06/05/18 06/05/18 11:44 13:43 16:25 Creatine Kinase 110 CK-MB (CK-2) Troponin I 0.025 NT-Pro-B Natriuret Pep 2840 H 06/05/18 06/05/18 06/05/18 16:25 21:35 21:35 Creatine Kinase 96 CK-MB (CK-2) 1.42 1.16 Troponin I NT-Pro-B Natriuret Pep 06/06/18 06/06/18 06/06/18 03:54 03:54 03:54 Creatine Kinase 100 CK-MB (CK-2) 1.26 Troponin I NT-Pro-B Natriuret Pep 2270 H Impressions: Chest X-Ray 06/05/18 11:19 IMPRESSION: 1. Stable appearance to the chest since the prior study dated 05/19/2018. Generalized marked cardiomegaly. Stable mild prominence of the pulmonary vasculature. Renal Ultrasound 06/09/18 00:00 IMPRESSION: NORMAL RENAL AND BLADDER ULTRASOUND. Qualifiers - * PATIENT BEING DISCHARGED WITH ANY OF THE FOLLOWING DIAGNOSIS: Heart Failure VTE patient discharged on overlapping Therapy?: No Reason(s) for not prescribing Overlap Therapy:: Not indicated Stroke Pt being discharged on Anti-thrombolytic therapy?: No Reason(s) for not prescribing Anti-thrombolytic therapy:: Not indicated Stroke Pt being discharged on Anti-coagulation therapy?: No Reason(s) for not prescribing Anti-coagulation therapy:: Not indicated Stroke Pt being discharged on Statins?: No Reason(s) for not prescribing Statins therapy:: Not indicated AL Pt being discharged on Aspirin therapy?: No Reason(s) for not prescribing Aspirin therapy:: Not indicated AL Pt being discharged on Statins?: No Reason(s) for not prescribing Statin therapy:: Not indicated AL Pt discharged ACEI/ARBS?: No Reason(s) for not prescribing ACEI/ARBS:: Not indicated HF Pt being discharged on ACEI for LVEF less than 40%?: Yes HF Pt being discharged on ARBS for LVEF less than 40%?: Yes HF Pt with Afib discharged with Warfarin?: No Reason(s) for not prescribing Warfarin:: Not indicated HF Pt discharged on evidence-based Beta Rangel:: Yes
[2018-06-11 14:50] VITALS: BP 139/91
== END 2018-06-11 15:14 | disposition home or self-care (01) | DRG 291 ==
LOC: ER 10:50 → OBSVTOIN 13:26 → EH 13:26 → 3S 18:59
PROVIDERS: ADMIT Internal Medicine; ATTEND Internal Medicine
DX: I13.0 Hypertensive heart and chronic kidney disease with heart failure and stage 1 through stage 4 chronic kidney disease, or unspecified chronic kidney disease (principal); I50.23 Acute on chronic systolic (congestive) heart failure; N17.9 Acute kidney failure, unspecified; N18.3 Chronic kidney disease, stage 3 (moderate); I25.5 Ischemic cardiomyopathy; E87.6 Hypokalemia; E78.5 Hyperlipidemia, unspecified; J44.9 Chronic obstructive pulmonary disease, unspecified; K21.9 Gastro-esophageal reflux disease without esophagitis; F14.90 Cocaine use, unspecified, uncomplicated; F19.90 Other psychoactive substance use, unspecified, uncomplicated; G47.30 Sleep apnea, unspecified; F41.8 Other specified anxiety disorders; F20.9 Schizophrenia, unspecified; E66.01 Morbid (severe) obesity due to excess calories; I25.2 Old myocardial infarction; Z95.5 Presence of coronary angioplasty implant and graft; Z95.810 Presence of automatic (implantable) cardiac defibrillator; Z79.01 Long term (current) use of anticoagulants; Z79.82 Long term (current) use of aspirin; Z79.899 Other long term (current) drug therapy; Z68.38 Body mass index [BMI] 38.0-38.9, adult
CPT/HCPCS: 36415; 71045; 76770; 80048; 80053; 80061; 81001; 82550; 82553; 83036; 83735; 83880; 84439; 84443; 84484; 85025; 85610; 87040; 87070; 87205; 93005; 93010; 96374; 99285; J1940; J3490; J7030

== ENCOUNTER 2018-07-09 05:08 | Inpatient (IN) | payer MEDICAID ==
[2018-07-09] MEDS ORDERED: NITROGLYCERIN 0.4 MG/TAB 25 TAB/BOTTLE ONE (05:13)
[2018-07-09] MEDS ORDERED: NITROGLYCERIN/D5W 50 MG/250 ML RTUINJ IV ONE (05:13)
[2018-07-09] MEDS ORDERED: ASPIRIN 81 MG TABLET, CHEWABLE PO ONE (05:16)
[2018-07-09] MEDS ORDERED: NITROGLYCERIN/D5W 50 MG/250 ML RTUINJ IV PRN (05:17)
[2018-07-09] MEDS ORDERED: NITROGLYCERIN 0.4 MG/TAB 25 TAB/BOTTLE SL PRN (05:17)
[2018-07-09] MEDS ORDERED: ALBUTEROL SULFATE 0.083% NEB 2.5 MG/3 ML AMPUL NEB ONE (05:24)
[2018-07-09 05:37] LABS: VENOUS BLOOD BASE EXCESS 1.2 mmol/L; VENOUS BLOOD HCO3 25.8 mmol/L (20-32); VENOUS BLOOD PCO2 40.8 mmHg (35-63); VENOUS BLOOD PH 7.42 (7.30-7.42)
[2018-07-09 05:44] LABS: ABSOLUTE LYMPHOCYTES (AUTO) 1.2 10^3/uL (0.5-4.7); ABSOLUTE MONOCYTES (AUTO) 0.4 10^3/uL (0.1-1.4); ABSOLUTE NEUT (AUTO) 5.5 10^3/uL (1.7-8.2); BASOPHILS % (AUTO) 0.6 % (0-2); EOSINOPHILS % (AUTO) 0.1 % (0-6); HEMOGLOBIN 11.7 g/dL (12.0-15.5); LYMPHOCYTES % (AUTO) 17.4 % (13-45); MEAN CORPUSCULAR HEMOGLOBIN 29.8 pg (27.0-33.4); MEAN CORPUSCULAR HGB CONC 32.4 g/dL (32.0-36.0); MEAN CORPUSCULAR VOLUME 92 fl (80-97); MONOCYTES % (AUTO) 5.1 % (3-13); PLATELET COUNT 278 10^3/uL (150-450); RED CELL DISTRIBUTION WIDTH 16.1 % (11.5-14.0); SEGMENTED NEUTROPHILS % (AUTO) 76.8 % (42-78); TOTAL CELLS COUNTED % (AUTO) 100 %; WHITE BLOOD COUNT 7.2 10^3/uL (4.0-10.5)
--- NOTE | 2018-07-09 05:46 | RADIOLOGY REPORT (SQ) ---
EXAM DESCRIPTION: XR CHEST 1 VIEW COMPLETED DATE/TME: 07/09/2018 05:17 CLINICAL HISTORY: 47 years, Female, SOB, rales, dyspnea COMPARISON: 05/19/2018 NUMBER OF VIEWS: One TECHNIQUE: AP view of the chest LIMITATIONS: None. FINDINGS: There is pulmonary vascular congestion with pulmonary edema. The heart is enlarged with a left chest wall pacemaker/AICD. There is no pneumothorax or large pleural effusion. The bones are unremarkable. IMPRESSION: CHF exacerbation copyright 2010 [employer]- All Rights Reserved
[2018-07-09] MEDS ORDERED: FUROSEMIDE INJ/PF 40 MG/4 ML SDV IV ONE (05:55)
[2018-07-09 06:08] LABS: CREATINE KINASE MB 1.03 ng/mL (<4.55)
[2018-07-09] MEDS ORDERED: IPRATROPIUM/ALBUTEROL 0.5-2.5 MG/3 ML AMPUL NEB ONE (06:10)
[2018-07-09 06:11] LABS: TROPONIN I 0.044 ng/mL
[2018-07-09 06:13] LABS: ALANINE AMINOTRANSFERASE 37 U/L (9-52); ALBUMIN 4.4 g/dL (3.5-5.0); ALKALINE PHOSPHATASE 120 U/L (38-126); ANION GAP 12 (5-19); ASPARTATE AMINO TRANSFERASE 46 U/L (14-36); BILIRUBIN,DIRECT 0.6 mg/dL (0.0-0.4); BILIRUBIN,TOTAL 2.3 mg/dL (0.2-1.3); BLOOD UREA NITROGEN 17 mg/dL (7-20); CALCIUM 9.3 mg/dL (8.4-10.2); CARBON DIOXIDE 26 mmol/L (22-30); CHLORIDE 106 mmol/L (98-107); CREATINE KINASE 143 U/L (30-135); GLUCOSE 196 mg/dL (75-110); POTASSIUM 3.9 mmol/L (3.6-5.0)
[2018-07-09] MEDS ORDERED: NITROGLYCERIN 2% OINTMENT 1 GM PACKET TP ONE (06:22)
[2018-07-09] MEDS ORDERED: MAG HYDROX/AL HYDROX/SIMETH SUSP 30 ML UDCUP PO PRN (06:23)
[2018-07-09] MEDS ORDERED: ENALAPRILAT DIHYDRATE INJ/PF 1.25 MG/1 ML SDV IV ONE (06:23)
[2018-07-09] MEDS ORDERED: HYDRALAZINE HCL INJ/PF 20 MG/1 ML SDV IV PRN (06:23)
--- NOTE | 2018-07-09 06:31 | ER Document Report ---
Entered by STARLA PUGA SCRIBE 07/09/18 0529 Acting as scribe for:ASTER POWERS DO ED Respiratory Problem - General Chief Complaint: Shortness Of Breath Stated Complaint: SHORT OF BREATH Time Seen by Provider: 07/09/18 05:16 Primary Care Provider: YI SANCHEZ DO [Primary Care Provider] - Follow up as needed Mode of Arrival: Wheelchair Information source: Patient Notes: Patient is a 47-year-old female with history of CHF who presents to the emergency department today in respiratory distress. Patient had an oxygen saturation of 81% on room air on arrival here. Patient states that her shortness of breath is exacerbated with lying in a supine position and associated with chest pain. Patient has been intubated in the past for r espiratory failure. Patient does take a fluid pill however mentions that she has not yet taken her morning medications today. Patient mentions that she has noticed leg swelling as well as "vomiting up fluid", some weight gain over the past few days. TRAVEL OUTSIDE OF THE [place] IN LAST 30 DAYS: No - Related Data Allergies/Adverse Reactions: egg [Egg] Allergy (Verified 07/09/18 06:16) hydrocodone [From Vicodin] Allergy (Verified 07/09/18 06:16) diphenhydramine HCl [From Benadryl] Adverse Reaction (Verified 07/09/18 06:16) chest pain, bigemeny rhythm Past Medical History - General Information source: Patient, [facility] Records - Social History Smoking Status: Former Smoker Cigarette use (# per day): No Chew tobacco use (# tins/day): No Frequency of alcohol use: None Drug Abuse: None Lives with: Family Family History: Reviewed & Not Pertinent - Past Medical History Cardiac Medical History: Reports: Hx Congestive Heart Failure, Hx Heart Attack - 1-2 YRS AGO, Hx Hypercholesterolemia, Hx Hypertension - ON MEDS Pulmonary Medical History: Reports: Hx COPD Renal/ Medical History: Reports: Hx Kidney Stones, Hx Renal Insufficiency GI Medical History: Reports: Hx Gastroesophageal Reflux Disease Psychiatric Medical History: Reports: Hx Anxiety, Hx Depression, Hx Schizophrenia Past Surgical History: Reports: Hx Cardiac Catheterization - multiple stents, Hx Cardiac Surgery - pacemaker, CABG, Hx Section, Hx Coronary Artery Bypass Graft - 2006, Hx Hysterectomy, Hx Open Heart Surgery - BYPASS 2006, Hx Pacemaker - X2, DEC 2013, Hx Tubal Ligation - Immunizations Hx Diphtheria, Pertussis, Tetanus Vaccination: Yes Hx Pneumococcal Vaccination: 04/04/12 Review of Systems - Review of Systems Constitutional: No symptoms reported EENT: No symptoms reported Cardiovascular: See HPI, Chest pain, Orthopnea, Dyspnea Respiratory: See HPI, Short of breath Gastrointestinal: See HPI, Vomiting Genitourinary: No symptoms reported Female Genitourinary: No symptoms reported Musculoskeletal: See HPI, Leg swelling Skin: No symptoms reported Hematologic/Lymphatic: No symptoms reported Neurological/Psychological: No symptoms reported -: Yes All other systems reviewed and negative Physical Exam - Vital signs Vitals: Pulse Ox 81 L 07/09/18 05:17 Interpretation: Hypoxic - Notes Notes: PHYSICAL EXAM GENERAL: Alert, leaning over the bed with feet on the ground for comfort. Appears very short of breath. Appears anxious. HEAD: Normocephalic, atraumatic. EYES: Pupils equal, round, and reactive to light. Extraocular movements intact. ENT: Oral mucosa moist, tongue midline. NECK: Full range of motion. Supple. Trachea midline. LUNGS: Severe respiratory distress, tachypneic, saturation of 81% on room air with good wave form. Inspiratory crackles bilaterally, expiratory wheezing bilaterally. HEART: Regular rate and rhythm. No murmurs, gallops, or rubs. ABDOMEN: Soft, non-tender. Non-distended. Bowel sounds present in all 4 quadrants. No guarding, rigidity, or rebound. EXTREMITIES: Moves all 4 extremities spontaneously. Trace pitting edema to bi lateral lower extremities, radial and dorsalis pedis pulses 2/4 bilaterally. No cyanosis. NEUROLOGICAL: Alert and oriented x3. Normal speech. PSYCH: Appears anxious SKIN: Warm and dry. No rashes or lesions noted. Course - Re-evaluation Re-evalutation: 07/09/18 06:23 Patient arrived in severe respiratory distress, was immediately brought to the back, given sublingual nitroglycerin for her congestive heart failure on oxygen while we waited for respiratory to arrive with the BiPAP and rapidly transitioned to BiPAP patient rapid improvement on BiPAP, breathing treatments and a nitroglycerin drip, is doing much better and appears quite comfortable. CBC reveals mild anemia, no leukocytosis, VBG unremarkable, CMP shows chronic renal failure with creatinine 1.45, glucose elevated at 196, lactic acid normal, total and direct bilirubin are elevated likely representing hepatic congestion, troponin elevated but indeterminate 0.044, proBNP elevated at 5670. Chest x-ray shows pulmonary edema. Discussed case with Dr. Ku who agreed to accept the patient to his service in the IMCU. EKG is nonischemic. - Vital Signs Vital signs: Temp Pulse Resp BP Pulse Ox 16 158/103 H 96 07/09/18 05:41 07/09/18 05:41 07/09/18 05:41 - Laboratory Result Diagrams: 07/09/18 05:19 07/09/18 05:19 Laboratory results interpreted by me: 07/09/18 07/09/18 07/09/18 05:19 05:19 05:19 Hgb 11.7 L RDW 16.1 H Creatinine 1.45 H Est GFR ( Amer) 47 L Est GFR (Non-Af Amer) 39 L Glucose 196 H Total Bilirubin 2.3 H Direct Bilirubin 0.6 H AST 46 H Creatine Kinase 143 H NT-Pro-B Natriuret Pep 5670 H - EKG Interpretation by Me Additional EKG results interpreted by me: 07/09/18 06:23 EKG shows an atrially sensed and ventricularly paced rhythm at a rate of 68, no ST segment elevations or depressions, QRS widened consistent with ventricular pacing per my interpretation. Critical Care Note - Critical Care Note Total time excluding time spent on procedures (mins): 65 Discharge - Discharge Clinical Impression: Acute on chronic systolic (congestive) heart failure, Morbid obesity with BMI of 45.0-49.9, adult, CKD (chronic kidney disease), stage III Condition: Serious Disposition: ADMITTED INPATIENT Admitting Provider: [facility] (Hospitalist) Unit Admitted: [facility] Referrals: YI SANCHEZ DO [Primary Care Provider] - Follow up as needed I personally performed the services described in the documentation, reviewed and edited the documentation which was dictated to the scribe in my presence, and it accurately records my words and actions.
--- NOTE | 2018-07-09 06:39 | PDOC H&P ---
History of Present Illness Admission Date/PCP: YI SANCHEZ DO Patient complains of: Shortness of breath History of Present Illness: FRANKI DEL ROSARIO is a 47 year old female with a past medical history of coronary artery disease with bypass graft 2006 and subsequent coronary artery stenting, congestive heart failure with an ejection fraction of 20 to 25% with AICD, 2013, COPD, CKD 3, GERD, depression, and morbid obesity. Patient presents with several days of shortness of breath found tachypneic with diaphoresis complaining of chest pain she is placed on IV nitroglycerin, Lasix and BiPAP. Imaging reveals severe cardiomegaly, congestive heart failure exacerbation and LFTs suggestive of hepatic congestion. She is referred to the hospitalist for admission. Past Medical History Cardiac Medical History: Reports: Congestive Heart Failure, Myocardial Infarction - 1-2 YRS AGO, Hyperlipidema, Hypertension - ON MEDS Pulmonary Medical History: Reports: Chronic Obstructive Pulmonary Disease (COPD) Denies: Asthma Neurological Medical History: Denies: Seizures GI Medical History: Reports: Gastroesophageal Reflux Disease Denies: Hepatitis, Hiatal Hernia Psychiatric Medical History: Reports: Depression Hematology: Denies: Anemia, Sickle Cell Disease Past Surgical History Past Surgical History: Reports: Cardiac Catheterization - multiple stents, Section, Coronary Artery Bypass Graft - 2006, Hysterectomy, Pacemaker - X2, DEC 2013, Tubal Ligation Denies: Amputation, Mastectomy Social History Information Source: Patient, [facility] Records Lives with: Family Smoking Status: Former Smoker Frequency of Alcohol Use: Occasional Hx Recreational Drug Use: Yes Drugs: Marijuana Hx Prescription Drug Abuse: No - Advance Directive Resuscitation Status: Full Code Family History Family History: Reviewed & Not Pertinent Parental Family History Reviewed: Yes Children Family History Reviewed: Yes Sibling(s) Family History Reviewed.: Yes Medication/Allergy Home Medications: Amiodarone HCl [Cordarone 200 mg Tablet] 200 mg PO BID 05/18/18 Apixaban [Eliquis 5 mg Tablet] 5 mg PO Q12 05/18/18 Aspirin [Ecotrin 81 mg EC Tablet] 81 mg PO DAILY 05/18/18 Atorvastatin Calcium [Lipitor 80 mg Tablet] 80 mg PO QHS 05/18/18 Buspirone HCl [Buspar 10 mg Tablet] 10 mg PO BID 05/18/18 Famotidine [Pepcid 40 mg Tablet] 40 mg PO BID 05/18/18 Isosorbide Mononitrate [Imdur 60 mg Tablet.er] 60 mg PO DAILY 05/18/18 Melatonin [Melatonin 1 mg Tablet] 1 mg PO QHS 05/18/18 Metoprolol Succinate [Toprol Xl 50 mg Tab.sr] 50 mg PO DAILY 05/18/18 Paroxetine HCl [Paxil 20 mg Tablet] 20 mg PO DAILY 05/18/18 Furosemide [Lasix 80 mg Tablet] 80 mg PO BID 30 Days #60 tablet 05/19/18 Sacubitril/Valsartan [Entresto 49 mg/51 mg Tablet] 1 tab PO BID 14 Days #28 tablet 05/19/18 Allergies/Adverse Reactions: egg [Egg] Allergy (Verified 07/09/18 06:16) hydrocodone [From Vicodin] Allergy (Verified 07/09/18 06:16) diphenhydramine HCl [From Benadryl] Adverse Reaction (Verified 07/09/18 06:16) chest pain, bigemeny rhythm Review of Systems Constitutional: PRESENT: as per HPI, fatigue, weakness, weight gain. ABSENT: fever(s), headache(s), night sweats Eyes: ABSENT: visual disturbances Ears: ABSENT: hearing changes Cardiovascular: PRESENT: as per HPI, dyspnea on exertion, edema, orthropnea Respiratory: PRESENT: as per HPI, dyspnea. ABSENT: hemoptysis, sputum Gastrointestinal: PRESENT: bloating. ABSENT: as per HPI, coffee ground emesis, constipation, diarrhea Genitourinary: ABSENT: dysuria, hematuria Musculoskeletal: ABSENT: joint swelling Integumentary: ABSENT: rash, wounds Neurological: ABSENT: abnormal gait, abnormal speech, confusion, dizziness, focal weakness, syncope Psychiatric: ABSENT: anxiety, depression, homidical ideation, suicidal ideation Endocrine: ABSENT: cold intolerance, heat intolerance, polydipsia, polyuria Hematologic/Lymphatic: ABSENT: easy bleeding, easy bruising Physical Exam Vital Signs: Temp Pulse Resp BP Pulse Ox 100.6 F H 26 H 150/97 H 95 07/09/18 05:25 07/09/18 06:26 07/09/18 06:26 07/09/18 06:26 Intake & Output 07/07/18 07/08/18 07/09/18 11:59 11:59 11:59 Weight 109.3 kg General appearance: PRESENT: cooperative, morbidly obese, severe distress. ABSENT: hard of hearing Head exam: PRESENT: atraumatic, normocephalic Eye exam: PRESENT: conjunctiva pink, EOMI, PERRLA. ABSENT: scleral icterus Ear exam: PRESENT: normal external ear exam Mouth exam: PRESENT: moist, tongue midline Neck exam: PRESENT: full ROM, JVD. ABSENT: carotid bruit, lymphadenopathy, thyromegaly Respiratory exam: PRESENT: accessory muscle use, crackles, decreased breath sounds, prolonged expiratory phas, rales, symmetrical, tachypnea. ABSENT: rhonchi, stridor, wheezes Cardiovascular exam: PRESENT: gallop, +S1, +S2, systolic murmur, tachycardia Pulses: PRESENT: normal dorsalis pedis pul Vascular exam: PRESENT: normal capillary refill GI/Abdominal exam: PRESENT: normal bowel sounds, soft. ABSENT: distended, guarding, mass, organolmegaly, rebound, tenderness Rectal exam: PRESENT: deferred Extremities exam: PRESENT: full ROM, +1 edema. ABSENT: calf tenderness, clubbing, tenderness Neurological exam: PRESENT: alert, awake, oriented to person, oriented to place, oriented to time, oriented to situation, CN II-XII grossly intact. ABSENT: motor sensory deficit Psychiatric exam: PRESENT: appropriate affect, normal mood. ABSENT: homicidal ideation, suicidal ideation Skin exam: PRESENT: dry, intact, warm. ABSENT: cyanosis, rash Results Laboratory Results: 07/09/18 05:19 07/09/18 05:19 07/09/18 07/09/18 07/09/18 05:19 05:19 05:19 WBC 7.2 RBC 3.90 Hgb 11.7 L Hct 36.0 MCV 92 MCH 29.8 MCHC 32.4 RDW 16.1 H Plt Count 278 Seg Neutrophils % 76.8 Lymphocytes % 17.4 Monocytes % 5.1 Eosinophils % 0.1 Basophils % 0.6 Absolute Neutrophils 5.5 Absolute Lymphocytes 1.2 Absolute Monocytes 0.4 Absolute Eosinophils 0.0 Absolute Basophils 0.0 VBG pH 7.42 VBG pCO2 40.8 VBG HCO3 25.8 VBG Base Excess 1.2 Sodium Potassium Chloride Carbon Dioxide Anion Gap BUN Creatinine Est GFR ( Amer) Est GFR (Non-Af Amer) Glucose Lactic Acid 1.5 Calcium Total Bilirubin AST ALT Alkaline Phosphatase Total Protein Albumin 07/09/18 05:19 WBC RBC Hgb Hct MCV MCH MCHC RDW Plt Count Seg Neutrophils % Lymphocytes % Monocytes % Eosinophils % Basophils % Absolute Neutrophils Absolute Lymphocytes Absolute Monocytes Absolute Eosinophils Absolute Basophils VBG pH VBG pCO2 VBG HCO3 VBG Base Excess Sodium 144.0 Potassium 3.9 Chloride 106 Carbon Dioxide 26 Anion Gap 12 BUN 17 Creatinine 1.45 H Est GFR ( Amer) 47 L Est GFR (Non-Af Amer) 39 L Glucose 196 H Lactic Acid Calcium 9.3 Total Bilirubin 2.3 H AST 46 H ALT 37 Alkaline Phosphatase 120 Total Protein 8.0 Albumin 4.4 07/09/18 05 05:19 05:19 Creatine Kinase 143 H CK-MB (CK-2) 1.03 Troponin I 0.044 NT-Pro-B Natriuret Pep 5670 H Impressions: Chest X-Ray 07/09/18 05:17 IMPRESSION: CHF exacerbation copyright 2011 [employer]- All Rights Reserved Assessment and Plan - Diagnosis (1) Acute on chronic systolic (congestive) heart failure Is this a current diagnosis for this admission?: Yes Plan: Likely secondary to medication noncompliance and lifestyle indiscretion. CHF care set deployed, KELL inhibitor, nitrates, loop diuretic, BiPAP and resumption of beta-rip when compensated. (2) CKD (chronic kidney disease), stage III Is this a current diagnosis for this admission?: Yes Plan: Avoid nephrotoxic meds and doses beyond loop diuretic. Follow-up chemistry (3) Sleep apnea syndrome Is this a current diagnosis for this admission?: Yes Plan: BiPAP and education (4) Morbid obesity with BMI of 45.0-49.9, adult Is this a current diagnosis for this admission?: Yes Plan: Morbid obesity will evaluate for metabolic cause with evaluation of thyroid function and dietitian consultation - Time Time Spent with patient: 35 or more minutes - Inpatient Certification Medical Necessity: Need Close Monitoring Due to Risk of Patient Decompensation
[2018-07-09] MEDS ORDERED: LACTULOSE SYRUP 20 GM/30 ML UDCUP PO ONE ×2 (06:49→11:00)
[2018-07-09] MEDS ORDERED: ASPIRIN 81 MG TABLET, ENT COATED PO SCH (10:00)
[2018-07-09] MEDS ORDERED: FUROSEMIDE INJ/PF 40 MG/4 ML SDV IV SCH (10:00)
[2018-07-09] MEDS ORDERED: VALSARTAN 160 MG TABLET PO SCH (10:00)
[2018-07-09] MEDS: DOCUSATE SODIUM 100 MG CAPSULE PO SCH (10:23)
[2018-07-09] MEDS: AMIODARONE HCL 200 MG TABLET PO SCH ×2 (10:23→17:03)
[2018-07-09] MEDS: BUSPIRONE HCL 10 MG TABLET PO SCH ×2 (10:24→17:03)
[2018-07-09] MEDS: POTASSIUM CHLORIDE 10 MEQ CAPSULE.ER PO SCH ×2 (10:24→22:03)
[2018-07-09] MEDS: METOPROLOL SUCCINATE 50 MG TAB.SR.24H PO SCH (10:24)
[2018-07-09] MEDS: FAMOTIDINE 20 MG TABLET PO SCH ×2 (10:24→17:03)
[2018-07-09] MEDS: APIXABAN 5 MG TABLET PO SCH ×2 (10:24→22:02)
[2018-07-09] MEDS: ACETAMINOPHEN 325 MG TABLET PO PRN ×2 (11:15→19:47)
[2018-07-09 11:51] LABS: CREATINE KINASE MB 1.27 ng/mL (<4.55); TROPONIN I 0.052 ng/mL
[2018-07-09] MEDS: ISOSORBIDE MONONITRATE 60 MG TAB.ER.24H PO SCH (17:03)
[2018-07-09] MEDS: PAROXETINE HCL 20 MG TABLET PO SCH (17:04)
[2018-07-09] MEDS: SACUBITRIL/VALSARTAN 49 MG/51 MG TABLET PO SCH (17:05)
[2018-07-09] MEDS: FUROSEMIDE 80 MG TABLET PO SCH (17:06)
[2018-07-09 17:57] LABS: CREATINE KINASE MB 1.62 ng/mL (<4.55); TROPONIN I 0.043 ng/mL
[2018-07-09] MEDS ORDERED: MELATONIN 1 MG TABLET PO SCH (22:00)
[2018-07-09] MEDS: ATORVASTATIN CALCIUM 80 MG TABLET PO SCH (22:02)
[2018-07-09] MEDS: MELATONIN 3 MG TABLET PO SCH (23:14)
[2018-07-09 23:36] LABS: CREATINE KINASE MB 1.43 ng/mL (<4.55); TROPONIN I 0.045 ng/mL
[2018-07-10] MEDS: SACUBITRIL/VALSARTAN 49 MG/51 MG TABLET PO SCH ×2 (05:39→17:29)
[2018-07-10 06:23] LABS: ABSOLUTE MONOCYTES (AUTO) 0.3 10^3/uL (0.1-1.4); ABSOLUTE NEUT (AUTO) 3.2 10^3/uL (1.7-8.2); BASOPHILS % (AUTO) 1.1 % (0-2); EOSINOPHILS % (AUTO) 0.3 % (0-6); HEMATOCRIT 32.3 % (36.0-47.0); HEMOGLOBIN 10.4 g/dL (12.0-15.5); LYMPHOCYTES % (AUTO) 21.7 % (13-45); MEAN CORPUSCULAR HEMOGLOBIN 30.2 pg (27.0-33.4); MEAN CORPUSCULAR HGB CONC 32.3 g/dL (32.0-36.0); MEAN CORPUSCULAR VOLUME 93 fl (80-97); MONOCYTES % (AUTO) 6.8 % (3-13); PLATELET COUNT 198 10^3/uL (150-450); RED BLOOD COUNT 3.46 10^6/uL (3.72-5.28); RED CELL DISTRIBUTION WIDTH 16.1 % (11.5-14.0); SEGMENTED NEUTROPHILS % (AUTO) 70.1 % (42-78); TOTAL CELLS COUNTED % (AUTO) 100 %; WHITE BLOOD COUNT 4.5 10^3/uL (4.0-10.5)
[2018-07-10 06:28] LABS: ALANINE AMINOTRANSFERASE 44 U/L (9-52); ALBUMIN 3.6 g/dL (3.5-5.0); ALKALINE PHOSPHATASE 80 U/L (38-126); ANION GAP 6 (5-19); ASPARTATE AMINO TRANSFERASE 56 U/L (14-36); BILIRUBIN,DIRECT 0.5 mg/dL (0.0-0.4); BLOOD UREA NITROGEN 15 mg/dL (7-20); CARBON DIOXIDE 28 mmol/L (22-30); CHLORIDE 109 mmol/L (98-107); GLUCOSE 108 mg/dL (75-110); POTASSIUM 4.2 mmol/L (3.6-5.0); SODIUM 142.8 mmol/L (137-145); TOTAL PROTEIN 6.9 g/dL (6.3-8.2)
[2018-07-10] MEDS: POTASSIUM CHLORIDE 10 MEQ CAPSULE.ER PO SCH (11:03)
[2018-07-10] MEDS: APIXABAN 5 MG TABLET PO SCH ×2 (11:04→21:46)
[2018-07-10] MEDS: FAMOTIDINE 20 MG TABLET PO SCH ×2 (11:04→17:29)
[2018-07-10] MEDS: ISOSORBIDE MONONITRATE 60 MG TAB.ER.24H PO SCH (11:04)
[2018-07-10] MEDS: FUROSEMIDE 80 MG TABLET PO SCH ×2 (11:04→17:29)
[2018-07-10] MEDS: AMIODARONE HCL 200 MG TABLET PO SCH ×2 (11:04→17:29)
[2018-07-10] MEDS: METOPROLOL SUCCINATE 50 MG TAB.SR.24H PO SCH (11:04)
[2018-07-10] MEDS: ASPIRIN 81 MG TABLET, CHEWABLE PO SCH (11:04)
[2018-07-10] MEDS: BUSPIRONE HCL 10 MG TABLET PO SCH ×2 (11:04→17:29)
[2018-07-10] MEDS: PAROXETINE HCL 20 MG TABLET PO SCH (11:06)
[2018-07-10] MEDS: DOCUSATE SODIUM 100 MG CAPSULE PO SCH (11:46)
[2018-07-10] MEDS: SENNOSIDES/DOCUSATE 8.6-50 MG 1 EACH TABLET PO SCH ×2 (12:16→17:29)
[2018-07-10] MEDS: POLYETHYLENE GLYCOL 3350 POWDER 17 GM/1 PACKET PO SCH (12:16)
[2018-07-10] MEDS: ALPRAZOLAM 0.5 MG TABLET PO PRN (15:24)
[2018-07-10] MEDS ORDERED: MAGNESIUM CITRATE 296 ML BOTTLE PO ONE (18:29)
[2018-07-10] MEDS: FENTANYL CITRATE INJ/PF 100 MCG/2 ML AMPUL IV PRN (18:57)
--- NOTE | 2018-07-10 21:13 | PDOC PROGRESS REPORT ---
Subjective Progress Note for:: 07/10/18 Subjective:: FRANKI DEL ROSARIO is a 47 year old female with a past medical history of coronary artery disease with bypass graft 2006 and subsequent coronary artery stenting, congestive heart failure with an ejection fraction of 20 to 25% with AICD, 2014, COPD, CKD 3, GERD, depression, and morbid obesity. The patient presented to [facility] in respiratory distress requiring BIPAP. The patient is admitted to the hospitalist service for CHF exacerbation. The patient was seen this morning on rounds, she is resting comfortably in bed on BIPAP, which she has been wearing at night. During the day, the patient requires supplemental O2 via nasal cannula. Lungs are CTA. S1S2. No peripheral edema. The patient endorses LLQ pain. States she had three BMs yesterday. Denies rectal bleeding. Plan to continue IV lasix. Will wean supplemental O2 as tolerated. Discuss safe discharge plan with case management (patient is homeless). Reason For Visit: HEART FAILURE Physical Exam Vital Signs: Temp Pulse Resp BP Pulse Ox 98.5 F 60 18 129/86 H 99 07/10/18 17:30 07/10/18 17:30 07/10/18 17:30 07/10/18 17:30 07/10/18 11:26 Intake & Output 07/09/18 07/10/18 07/11/18 06:59 06:59 06:59 Intake Total 404 780 Output Total 1325 Balance -921 780 Weight 109.3 kg 110 kg General appearance: PRESENT: obese Head exam: PRESENT: atraumatic Eye exam: PRESENT: conjunctiva pink, PERRLA Mouth exam: PRESENT: moist, tongue midline Neck exam: PRESENT: full ROM Respiratory exam: PRESENT: clear to auscultation renu, symmetrical, unlabored Cardiovascular exam: PRESENT: RRR Pulses: PRESENT: normal radial pulses, normal dorsalis pedis pul Vascular exam: PRESENT: normal capillary refill GI/Abdominal exam: PRESENT: soft. ABSENT: distended, tenderness Rectal exam: PRESENT: deferred Extremities exam: PRESENT: full ROM. ABSENT: pedal edema Musculoskeletal exam: PRESENT: ambulatory, full ROM Neurological exam: PRESENT: alert, awake, oriented to person, oriented to place, oriented to time, oriented to situation Psychiatric exam: PRESENT: appropriate affect Skin exam: PRESENT: dry, intact, normal color Results Laboratory Results: 07/10/18 04:55 07/10/18 04:55 07/10/18 07/10/18 04:55 04:55 WBC 4.5 RBC 3.46 L Hgb 10.4 L Hct 32.3 L MCV 93 MCH 30.2 MCHC 32.3 RDW 16.1 H Plt Count 198 Seg Neutrophils % 70.1 Lymphocytes % 21.7 Monocytes % 6.8 Eosinophils % 0.3 Basophils % 1.1 Absolute Neutrophils 3.2 Absolute Lymphocytes 1.0 Absolute Monocytes 0.3 Absolute Eosinophils 0.0 Absolute Basophils 0.0 Sodium 142.8 Potassium 4.2 Chloride 109 H Carbon Dioxide 28 Anion Gap 6 BUN 15 Creatinine 1.22 Est GFR ( Amer) 57 L Est GFR (Non-Af Amer) 47 L Glucose 108 Calcium 9.0 Total Bilirubin 2.0 H AST 56 H ALT 44 Alkaline Phosphatase 80 Total Protein 6.9 Albumin 3.6 07/09/18 07/09/18 07/09/18 05:19 05:19 11:06 Creatine Kinase 143 H 113 CK-MB (CK-2) 1.03 Troponin I 0.044 NT-Pro-B Natriuret Pep 5670 H 07/09/18 07/09/18 07/09/18 11:06 17:00 17:00 Creatine Kinase 107 CK-MB (CK-2) 1.27 1.62 Troponin I 0.052 0.043 NT-Pro-B Natriuret Pep 07/09/18 07/09/18 07/10/18 22:50 22:50 04:55 Creatine Kinase 98 CK-MB (CK-2) 1.43 Troponin I 0.045 NT-Pro-B Natriuret Pep 3070 H Impressions: Chest X-Ray 07/09/18 05:17 IMPRESSION: CHF exacerbation copyright 2010 [employer]- All Rights Reserved Status: Imported from PACS Assessment and Plan - Diagnosis (1) Acute on chronic systolic (congestive) heart failure Is this a current diagnosis for this admission?: Yes Plan: Likely secondary to medication noncompliance and lifestyle indiscretion. ECHO APRIL2018 shows LVEF 25% and moderate pulmonary HTN Patient started on KELL inhibitor, nitrates, IV loop diuretic, BiPAP and resumption of beta-rip when compensated. Weaned to BIPAP QHS and nasal cannula during the day (2) Acute on chronic systolic congestive heart failure, NYHA class 2 Is this a current diagnosis for this admission?: Yes (3) COPD (chronic obstructive pulmonary disease) Qualifiers: Emphysema type: unspecified Is this a current diagnosis for this admission?: Yes Plan: PMH COPD Not on home O2 Currently requiring BIPAP QHS and nasal cannula during the day Will initiate long acting inhalers - spiriva and serevent PRN Duoneb available (4) HTN (hypertension) Qualifiers: Hypertension type: essential hypertension Qualified Code(s): I10 - Essential (primary) hypertension Is this a current diagnosis for this admission?: Yes Plan: PMH HTN currently well controlled on home regimen (5) Hyperlipidemia Qualifiers: Hyperlipidemia type: pure hypercholesterolemia Qualified Code(s): E78.00 - Pure hypercholesterolemia, unspecified; E78.0 - Pure hypercholesterolemia Is this a current diagnosis for this admission?: Yes Plan: PMH HLD Continue home dose statin - Time Time Spent with patient: 15-24 minutes Medications reviewed and adjusted accordingly: Yes Anticipated discharge: Home Within: within 48 hours - Inpatient Certification Based on my medical assessment, after consideration of the patient's comorbidities, presenting symptoms, or acuity I expect that the services needed warrant INPATIENT care.: Yes I certify that my determination is in accordance with my understanding of Medicare's requirements for reasonable and necessary INPATIENT services [42 CFR 412.3e].: Yes Medical Necessity: Need For Continuous Telemetry Monitoring, Risk of Complication if Not Cared For in Hospital
[2018-07-10] MEDS: ATORVASTATIN CALCIUM 80 MG TABLET PO SCH (21:46)
[2018-07-10] MEDS: MELATONIN 3 MG TABLET PO SCH (21:46)
[2018-07-10] MEDS: SALMETEROL XINAFOATE DISKUS 50 MCG/1 DOSE 28 DOSE IH SCH (21:53)
[2018-07-10] MEDS: IPRATROPIUM/ALBUTEROL 0.5-2.5 MG/3 ML AMPUL NEB SCH (23:51)
[2018-07-11] MEDS: IPRATROPIUM/ALBUTEROL 0.5-2.5 MG/3 ML AMPUL NEB SCH ×7 (02:18→19:45)
[2018-07-11 05:14] LABS: HEMATOCRIT 32.8 % (36.0-47.0); HEMOGLOBIN 10.8 g/dL (12.0-15.5); MEAN CORPUSCULAR HEMOGLOBIN 30.2 pg (27.0-33.4); MEAN CORPUSCULAR HGB CONC 32.9 g/dL (32.0-36.0); MEAN CORPUSCULAR VOLUME 92 fl (80-97); PLATELET COUNT 239 10^3/uL (150-450); RED BLOOD COUNT 3.57 10^6/uL (3.72-5.28); RED CELL DISTRIBUTION WIDTH 15.8 % (11.5-14.0); WHITE BLOOD COUNT 4.5 10^3/uL (4.0-10.5)
[2018-07-11 05:21] LABS: ALANINE AMINOTRANSFERASE 33 U/L (9-52); ALBUMIN 3.5 g/dL (3.5-5.0); ALKALINE PHOSPHATASE 95 U/L (38-126); ANION GAP 8 (5-19); ASPARTATE AMINO TRANSFERASE 25 U/L (14-36); BILIRUBIN,DIRECT 0.2 mg/dL (0.0-0.4); BILIRUBIN,TOTAL 1.3 mg/dL (0.2-1.3); BLOOD UREA NITROGEN 18 mg/dL (7-20); CALCIUM 9.2 mg/dL (8.4-10.2); CARBON DIOXIDE 29 mmol/L (22-30); CHLORIDE 107 mmol/L (98-107); GLUCOSE 110 mg/dL (75-110); PHOSPHORUS 4.3 mg/dL (2.5-4.5); POTASSIUM 4.3 mmol/L (3.6-5.0); SODIUM 144.4 mmol/L (137-145); TOTAL PROTEIN 6.5 g/dL (6.3-8.2)
[2018-07-11] MEDS: SACUBITRIL/VALSARTAN 49 MG/51 MG TABLET PO SCH ×2 (05:22→17:10)
[2018-07-11] MEDS: ISOSORBIDE MONONITRATE 60 MG TAB.ER.24H PO SCH (09:11)
[2018-07-11] MEDS: BUSPIRONE HCL 10 MG TABLET PO SCH ×2 (09:11→17:09)
[2018-07-11] MEDS: ASPIRIN 81 MG TABLET, CHEWABLE PO SCH (09:12)
[2018-07-11] MEDS: FAMOTIDINE 20 MG TABLET PO SCH ×2 (09:12→17:10)
[2018-07-11] MEDS: ALPRAZOLAM 0.5 MG TABLET PO PRN ×2 (09:12→17:13)
[2018-07-11] MEDS: METOPROLOL SUCCINATE 50 MG TAB.SR.24H PO SCH (09:12)
[2018-07-11] MEDS: FUROSEMIDE 80 MG TABLET PO SCH ×2 (09:12→17:10)
[2018-07-11] MEDS: AMIODARONE HCL 200 MG TABLET PO SCH ×2 (09:12→17:10)
[2018-07-11] MEDS: APIXABAN 5 MG TABLET PO SCH ×2 (09:12→21:41)
[2018-07-11] MEDS: SENNOSIDES/DOCUSATE 8.6-50 MG 1 EACH TABLET PO SCH ×2 (09:13→17:10)
[2018-07-11] MEDS: PAROXETINE HCL 20 MG TABLET PO SCH (09:13)
[2018-07-11] MEDS: POLYETHYLENE GLYCOL 3350 POWDER 17 GM/1 PACKET PO SCH (09:13)
[2018-07-11] MEDS: SALMETEROL XINAFOATE DISKUS 50 MCG/1 DOSE 28 DOSE IH SCH ×2 (09:13→21:40)
[2018-07-11] MEDS: TIOTROPIUM BROMIDE DPI 5 CAP/KIT (18 MCG/CAP) IH SCH (09:14)
[2018-07-11] MEDS: FENTANYL CITRATE INJ/PF 100 MCG/2 ML AMPUL IV PRN (20:23)
--- NOTE | 2018-07-11 20:34 | PDOC PROGRESS REPORT ---
Subjective Progress Note for:: 07/11/18 Subjective:: FRANKI DEL ROSARIO is a 47 year old female with a past medical history of coronary artery disease with bypass graft 2006 and subsequent coronary artery stenting, congestive heart failure with an ejection fraction of 20 to 25% with AICD, 2014, COPD, CKD 3, GERD, depression, and morbid obesity. The patient presented to [facility] in respiratory distress requiring BIPAP. The patient is admitted to the hospitalist service for CHF exacerbation. The patient was seen this morning on rounds, she is resting comfortably in bed on BIPAP, which she has been wearing at night. During the day, the patient requires supplemental O2 via nasal cannula. Lungs are CTA. S1S2. No peripheral edema. The patient states she feels much better today and is ready to go home. Attempted to ambulate patient around the unit but she became hypoxic, spo2 dropped to 83%. Plan to continue IV lasix. Will wean supplemental O2 as tolerated. Discuss safe discharge plan with case management (patient is homeless). Reason For Visit: HEART FAILURE Physical Exam Vital Signs: Temp Pulse Resp BP Pulse Ox 98.9 F 63 16 120/69 95 07/11/18 17:07 07/11/18 17:07 07/11/18 17:07 07/11/18 17:07 07/11/18 17:07 Intake & Output 07/10/18 07/11/18 07/12/18 06:59 06:59 06:59 Intake Total 830 824 4198 Output Total 1325 750 Balance -696 73 1712 Weight 110 kg 110.8 kg General appearance: PRESENT: obese Eye exam: PRESENT: conjunctiva pink Mouth exam: PRESENT: moist, tongue midline Teeth exam: PRESENT: poor dentation Neck exam: PRESENT: full ROM Respiratory exam: PRESENT: clear to auscultation renu, symmetrical, unlabored Cardiovascular exam: PRESENT: RRR Pulses: PRESENT: normal radial pulses, normal dorsalis pedis pul Vascular exam: PRESENT: normal capillary refill GI/Abdominal exam: PRESENT: normal bowel sounds, soft. ABSENT: distended, tenderness Rectal exam: PRESENT: deferred Extremities exam: PRESENT: full ROM. ABSENT: pedal edema Musculoskeletal exam: PRESENT: full ROM Neurological exam: PRESENT: alert, awake, oriented to person, oriented to place, oriented to time, oriented to situation Psychiatric exam: PRESENT: appropriate affect Skin exam: PRESENT: dry, intact Results Laboratory Results: 07/11/18 03:58 07/11/18 03:58 07/11/18 07/11/18 03:58 03:58 WBC 4.5 RBC 3.57 L Hgb 10.8 L Hct 32.8 L MCV 92 MCH 30.2 MCHC 32.9 RDW 15.8 H Plt Count 239 Sodium 144.4 Potassium 4.3 Chloride 107 Carbon Dioxide 29 Anion Gap 8 BUN 18 Creatinine 1.23 Est GFR ( Amer) 57 L Est GFR (Non-Af Amer) 47 L Glucose 110 Calcium 9.2 Phosphorus 4.3 Magnesium 2.5 H Total Bilirubin 1.3 AST 25 ALT 33 Alkaline Phosphatase 95 Total Protein 6.5 Albumin 3.5 07/09/18 07/09/18 07/09/18 05:19 05:19 11:06 Creatine Kinase 143 H 113 CK-MB (CK-2) 1.03 Troponin I 0.044 NT-Pro-B Natriuret Pep 5670 H 07/09/18 07/09/18 07/09/18 11:06 17:00 17:00 Creatine Kinase 107 CK-MB (CK-2) 1.27 1.62 Troponin I 0.052 0.043 NT-Pro-B Natriuret Pep 07/09/18 07/09/18 07/10/18 22:50 22:50 04:55 Creatine Kinase 98 CK-MB (CK-2) 1.43 Troponin I 0.045 NT-Pro-B Natriuret Pep 3070 H 07/11/18 03:58 Creatine Kinase CK-MB (CK-2) Troponin I NT-Pro-B Natriuret Pep 1730 H Impressions: Chest X-Ray 07/09/18 05:17 IMPRESSION: CHF exacerbation copyright 2010 [employer]- All Rights Reserved Status: Imported from PACS Assessment and Plan - Diagnosis (1) Acute on chronic systolic (congestive) heart failure Is this a current diagnosis for this admission?: Yes Plan: Likely secondary to medication noncompliance and lifestyle indiscretion. ECHO APRIL2018 shows LVEF 25% and moderate pulmonary HTN Patient started on KELL inhibitor, nitrates, IV loop diuretic, BiPAP and resumption of beta-rip when compensated. Weaned to BIPAP QHS and nasal cannula during the day (2) Acute on chronic systolic congestive heart failure, NYHA class 2 Is this a current diagnosis for this admission?: Yes (3) COPD (chronic obstructive pulmonary disease) Qualifiers: Emphysema type: unspecified Is this a current diagnosis for this admission?: Yes Plan: PMH COPD Not on home O2 Currently requiring BIPAP QHS and nasal cannula during the day Will initiate long acting inhalers - spiriva and serevent PRN Duoneb available (4) HTN (hypertension) Qualifiers: Hypertension type: essential hypertension Qualified Code(s): I10 - Essentia l (primary) hypertension Is this a current diagnosis for this admission?: Yes Plan: PMH HTN currently well controlled on home regimen (5) Hyperlipidemia Qualifiers: Hyperlipidemia type: pure hypercholesterolemia Qualified Code(s): E78.00 - Pure hypercholesterolemia, unspecified; E78.0 - Pure hypercholesterolemia Is this a current diagnosis for this admission?: Yes Plan: PMH HLD Continue home dose statin - Time Time Spent with patient: 15-24 minutes Medications reviewed and adjusted accordingly: Yes Anticipated discharge: Home Within: within 48 hours - Inpatient Certification Based on my medical assessment, after consideration of the patient's comorbidities, presenting symptoms, or acuity I expect that the services needed warrant INPATIENT care.: Yes I certify that my determination is in accordance with my understanding of Medicare's requirements for reasonable and necessary INPATIENT services [42 CFR 412.3e].: Yes Medical Necessity: Need For Continuous Telemetry Monitoring, Risk of Complication if Not Cared For in Hospital
[2018-07-11] MEDS: ATORVASTATIN CALCIUM 80 MG TABLET PO SCH (21:41)
[2018-07-11] MEDS: MELATONIN 3 MG TABLET PO SCH (21:41)
[2018-07-12] MEDS: IPRATROPIUM/ALBUTEROL 0.5-2.5 MG/3 ML AMPUL NEB SCH ×3 (01:53→14:10)
[2018-07-12] MEDS: SACUBITRIL/VALSARTAN 49 MG/51 MG TABLET PO SCH (05:02)
[2018-07-12 05:50] LABS: HEMOGLOBIN 10.8 g/dL (12.0-15.5); MEAN CORPUSCULAR HEMOGLOBIN 30.2 pg (27.0-33.4); MEAN CORPUSCULAR HGB CONC 32.8 g/dL (32.0-36.0); MEAN CORPUSCULAR VOLUME 92 fl (80-97); PLATELET COUNT 257 10^3/uL (150-450); RED BLOOD COUNT 3.57 10^6/uL (3.72-5.28); WHITE BLOOD COUNT 3.6 10^3/uL (4.0-10.5)
[2018-07-12 06:07] LABS: ALANINE AMINOTRANSFERASE 25 U/L (9-52); ALBUMIN 3.4 g/dL (3.5-5.0); ALKALINE PHOSPHATASE 74 U/L (38-126); ANION GAP 12 (5-19); ASPARTATE AMINO TRANSFERASE 18 U/L (14-36); BILIRUBIN,DIRECT 0.3 mg/dL (0.0-0.4); BILIRUBIN,TOTAL 0.7 mg/dL (0.2-1.3); BLOOD UREA NITROGEN 18 mg/dL (7-20); CALCIUM 9.3 mg/dL (8.4-10.2); CARBON DIOXIDE 28 mmol/L (22-30); CHLORIDE 104 mmol/L (98-107); GLUCOSE 112 mg/dL (75-110); PHOSPHORUS 6.5 mg/dL (2.5-4.5); TOTAL PROTEIN 6.1 g/dL (6.3-8.2)
[2018-07-12] MEDS: ALPRAZOLAM 0.5 MG TABLET PO PRN (09:49)
[2018-07-12] MEDS: METOPROLOL SUCCINATE 50 MG TAB.SR.24H PO SCH (09:49)
[2018-07-12] MEDS: BUSPIRONE HCL 10 MG TABLET PO SCH (09:50)
[2018-07-12] MEDS: ASPIRIN 81 MG TABLET, CHEWABLE PO SCH (09:50)
[2018-07-12] MEDS: FUROSEMIDE 80 MG TABLET PO SCH (09:50)
[2018-07-12] MEDS: ISOSORBIDE MONONITRATE 60 MG TAB.ER.24H PO SCH (09:50)
[2018-07-12] MEDS: AMIODARONE HCL 200 MG TABLET PO SCH (09:50)
[2018-07-12] MEDS: APIXABAN 5 MG TABLET PO SCH (09:50)
[2018-07-12] MEDS: FAMOTIDINE 20 MG TABLET PO SCH (09:50)
[2018-07-12] MEDS: PAROXETINE HCL 20 MG TABLET PO SCH (09:51)
[2018-07-12] MEDS: SALMETEROL XINAFOATE DISKUS 50 MCG/1 DOSE 28 DOSE IH SCH (09:51)
[2018-07-12] MEDS: SENNOSIDES/DOCUSATE 8.6-50 MG 1 EACH TABLET PO SCH (09:51)
[2018-07-12] MEDS: TIOTROPIUM BROMIDE DPI 5 CAP/KIT (18 MCG/CAP) IH SCH (09:51)
[2018-07-12] MEDS: POLYETHYLENE GLYCOL 3350 POWDER 17 GM/1 PACKET PO SCH (09:51)
[2018-07-12 13:22] VITALS: BP 145/90
== END 2018-07-12 15:14 | disposition home or self-care (01) | DRG 291 ==
LOC: ER 05:08 → EH 06:42 → 3N 08:27
PROVIDERS: ADMIT Internal Medicine; ATTEND Internal Medicine
PROC: 5A09457 Assistance with Respiratory Ventilation, 24-96 Consecutive Hours, Continuous Positive Airway Pressure (ICD-10-PCS; principal; 2018-07-09)
PROC: 3E0F73Z Introduction of Anti-inflammatory into Respiratory Tract, Via Natural or Artificial Opening (ICD-10-PCS; 2018-07-10)
DX: I13.0 Hypertensive heart and chronic kidney disease with heart failure and stage 1 through stage 4 chronic kidney disease, or unspecified chronic kidney disease (principal); I50.23 Acute on chronic systolic (congestive) heart failure; Z68.42 Body mass index [BMI] 45.0-49.9, adult; J44.9 Chronic obstructive pulmonary disease, unspecified; I25.10 Atherosclerotic heart disease of native coronary artery without angina pectoris; N18.3 Chronic kidney disease, stage 3 (moderate); K21.9 Gastro-esophageal reflux disease without esophagitis; F32.9 Major depressive disorder, single episode, unspecified; E66.01 Morbid (severe) obesity due to excess calories; E78.5 Hyperlipidemia, unspecified; G47.30 Sleep apnea, unspecified; E78.00 Pure hypercholesterolemia, unspecified; I25.2 Old myocardial infarction; Z95.1 Presence of aortocoronary bypass graft; Z95.5 Presence of coronary angioplasty implant and graft; Z95.810 Presence of automatic (implantable) cardiac defibrillator; Z90.710 Acquired absence of both cervix and uterus; Z87.891 Personal history of nicotine dependence; Z79.01 Long term (current) use of anticoagulants; Z79.82 Long term (current) use of aspirin; Z79.899 Other long term (current) drug therapy; Z88.6 Allergy status to analgesic agent; Z88.4 Allergy status to anesthetic agent; Z91.012 Allergy to eggs; Z91.14 Patient's other noncompliance with medication regimen; Z59.0 Homelessness
CPT/HCPCS: 36415; 71045; 80048; 80053; 80076; 82550; 82553; 82803; 83605; 83735; 83880; 84100; 84484; 85025; 85027; 94640; 94660; 96365; 96375; 99291; J1940; J3010; J3490; J7620

== ENCOUNTER 2018-07-18 05:10 | Inpatient (IN) | payer MEDICAID ==
[2018-07-18] MEDS ORDERED: NITROGLYCERIN 0.4 MG/TAB 25 TAB/BOTTLE ONE (05:19)
[2018-07-18] MEDS ORDERED: NITROGLYCERIN 0.4 MG/TAB 25 TAB/BOTTLE SL PRN (05:27)
[2018-07-18] MEDS ORDERED: IPRATROPIUM/ALBUTEROL 0.5-2.5 MG/3 ML AMPUL NEB ONE (05:28)
[2018-07-18] MEDS ORDERED: ONDANSETRON HCL INJ/PF 4 MG/2 ML SDV IV ONE (05:38)
--- NOTE | 2018-07-18 05:38 | ER Document Report ---
ED Respiratory Problem - General Chief Complaint: Shortness Of Breath Stated Complaint: DIFFICULTY BREATHING Time Seen by Provider: 07/18/18 05:25 Primary Care Provider: YI SANCHEZ DO [Primary Care Provider] - Follow up as needed Notes: Patient is a 47-year-old female with a history of CHF, AICD, and COPD that comes to the emergency department for chief complaint of difficulty breathing. Patient states she has had a cough, intermittent shortness of breath, however breathing became very difficult tonight. She has a history of admissions, mainly for CHF, she also has a history of intubation. She denies fever. She reports that she is taking her medications as prescribed. TRAVEL OUTSIDE OF THE [place] IN LAST 30 DAYS: No - Related Data Allergies/Adverse Reactions: egg [Egg] Allergy (Verified 07/09/18 06:16) hydrocodone [From Vicodin] Allergy (Verified 07/09/18 06:16) diphenhydramine HCl [From Benadryl] Adverse Reaction (Verified 07/09/18 06:16) chest pain, bigemeny rhythm Past Medical History - General Information source: Patient - Social History Smoking Status: Unknown if Ever Smoked Frequency of alcohol use: None Drug Abuse: None Lives with: Family Family History: Reviewed & Not Pertinent - Past Medical History Cardiac Medical History: Reports: Hx Congestive Heart Failure, Hx Heart Attack - 1-2 YRS AGO, Hx Hypercholesterolemia, Hx Hypertension - ON MEDS Pulmonary Medical History: Reports: Hx COPD Denies: Hx Asthma Neurological Medical History: Denies: Hx Cerebrovascular Accident, Hx Seizures Renal/ Medical History: Reports: Hx Kidney Stones, Hx Renal Insufficiency. Denies: Hx Peritoneal Dialysis GI Medical History: Reports: Hx Gastroesophageal Reflux Disease. Denies: Hx Hepatitis, Hx Hiatal Hernia, Hx Ulcer Psychiatric Medical History: Reports: Hx Anxiety, Hx Depression, Hx Schizophrenia Infectious Medical History: Denies: Hx Hepatitis Past Surgical History: Reports: Hx Cardiac Catheterization - multiple stents, Hx Cardiac Surgery - pacemaker, CABG, Hx Section, Hx Coronary Artery Bypass Graft - 2006, Hx Hysterectomy, Hx Open Heart Surgery - BYPASS 2006, Hx Pacemaker - , DEC 2013, Hx Tubal Ligation. Denies: Hx Mastectomy - Immunizations Hx Diphtheria, Pertussis, Tetanus Vaccination: Yes Hx Pneumococcal Vaccination: 04/04/12 Review of Systems - Review of Systems Constitutional: No symptoms reported EENT: No symptoms reported Cardiovascular: See HPI Respiratory: See HPI Gastrointestinal: No symptoms reported Genitourinary: No symptoms reported Female Genitourinary: No symptoms reported Musculoskeletal: No symptoms reported Skin: No symptoms reported Hematologic/Lymphatic: No symptoms reported Neurological/Psychological: No symptoms reported Physical Exam - Vital signs Vitals: Pulse Ox 97 07/18/18 05:20 - Notes Notes: GENERAL: Diaphoretic, appears to be in distress HEAD: Normocephalic, atraumatic. EYES: Pupils equal, round, and reactive to light. Extraocular movements intact. ENT: Oral mucosa moist, tongue midline. Oropharynx unremarkable. Airway patent. NECK: Full range of motion. Supple. Trachea midline. LUNGS: Decreased breath sounds with some rhonchi, some expiratory wheezes, some slight rales in the bases. Respiratory distress with tachypnea and labored breathing. HEART: Regular rate and rhythm. No murmur ABDOMEN: Soft, non-tender. Non-distended. GENITOURINARY: Deferred EXTREMITIES: Moves all 4 extremities spontaneously. Bilateral 1+ pitting edema, normal radial and dorsalis pedis pulses bilaterally. No cyanosis. BACK: no cervical, thoracic, lumbar midline tenderness. No saddle anesthesia, normal distal neurovascular exam. NEUROLOGICAL: Alert and oriented x3. Normal speech. Cranial nerves II through XII grossly intact. PSYCH: Somewhat anxious SKIN: Diaphoretic Course - Re-evaluation Re-evalutation: On initial evaluation patient has respiratory distress with tachypnea, she is diaphoretic, she has very labored breathing. She has some scattered rhonchi, questionable rales, some scattered wheezes as well. Appears to be a mixed presentation. Patient was immediately placed on BiPAP, she was given 1 sublingual nitroglycerin and nitro paste (initial blood pressures approximately 170 systolic), and given a duoneb. Patient started to improve significantly, respiratory rate dropped into the 20s, oxygen saturation was initially 76% on 2 L and this significantly improved into the mid 90s. 07/18/18 Patient reevaluated. She had become anxious, she vomited, she is very anxious about putting the mask back on. We gave her Zofran, gave her 0.5 mg of Ativan, after this she was able to resume using the BiPAP and became very comfortable again. 07/18/18 06:20 CBC shows mild normocytic anemia but no leukocytosis. EKG showing atrial sensed ventricular paced rhythm at a rate of 73 without significant change from prior. Troponin is indeterminate. BNP is elevated in the 4000s, elevated compared to prior. No overt vascular congestion on x-ray. She does have lower extremity edema. Chest x-ray showing right lower lobe pneumonia which is worse compared to prior. Because of recent hospitalization she will be covered for hospital-acquired pneumonia with cefepime and vancomycin. Patient fell asleep after the Ativan, oxygen saturation 93 to 94%, respirations in the 20s, she is not hypotensive or tachycardic. Patient remains easily arousable. She is doing very well on BiPAP. Will discuss with hospitalist for admission. Discussed with Pre Hernandez NP, patient accepted to telemetry full admission. - Vital Signs Vital signs: Temp Pulse Resp BP Pulse Ox 26 H 144/100 H 93 07/18/18 08:01 07/18/18 07:52 07/18/18 08:01 - Laboratory Result Diagrams: 07/18/18 05:30 07/18/18 05:30 Laboratory results interpreted by me: 07/18/18 07/18/18 07/18/18 05:30 05:30 05:30 Hgb 11.4 L Hct 35.8 L RDW 16.7 H ABG HCO3 ABG Total CO2 Creatinine 1.54 H Est GFR ( Amer) 44 L Est GFR (Non-Af Amer) 36 L Glucose 166 H Direct Bilirubin 0.5 H AST 87 H ALT 61 H Alkaline Phosphatase 168 H NT-Pro-B Natriuret Pep 4670 H 07/18/18 05:30 Hgb Hct RDW ABG HCO3 26.1 H ABG Total CO2 27.4 H Creatinine Est GFR ( Amer) Est GFR (Non-Af Amer) Glucose Direct Bilirubin AST ALT Alkaline Phosphatase NT-Pro-B Natriuret Pep Critical Care Note - Critical Care Note Total time excluding time spent on procedures (mins): 40 - Respiratory distress, hypoxia, pneumonia, CHF exacerbation Comments: Please allow 40 minutes of critical care for evaluation and management of patient with hypoxia, respiratory distress, pneumonia, CHF exacerbation. Interventions including nitroglycerin, oxygen, BiPAP therapy, anxiety treatment, pneumonia treatment with antibiotics. Multiple re-evaluations performed. Time spent reviewing previous records. Time spent interpreting workup. Time spent admitting to the hospital. Discharge - Discharge Clinical Impression: Hypoxia, Respiratory distress Pneumonia Qualifiers: Pneumonia type: due to unspecified organism Laterality: right Lung location: lower lobe of lung Qualified Code(s): J18.1 - Lobar pneumonia, unspecified organism CHF exacerbation Qualifiers: Heart failure type: unspecified Qualified Code(s): I50.9 - Heart failure, unspecified Condition: Fair Disposition: ADMITTED INPATIENT Admitting Provider: Per Hernandez [facility] TEAM LEAD Unit Admitted: Telemetry Referrals: YI SANCHEZ DO [Primary Care Provider] - Follow up as needed
[2018-07-18] MEDS ORDERED: LORAZEPAM INJ 2 MG/1 ML VIAL ONE (05:40)
[2018-07-18] MEDS ORDERED: LORAZEPAM INJ 2 MG/1 ML VIAL IV ONE (05:43)
[2018-07-18 05:56] LABS: ABSOLUTE LYMPHOCYTES (AUTO) 1.3 10^3/uL (0.5-4.7); ABSOLUTE MONOCYTES (AUTO) 0.4 10^3/uL (0.1-1.4); ABSOLUTE NEUT (AUTO) 5.3 10^3/uL (1.7-8.2); BASOPHILS % (AUTO) 0.6 % (0-2); EOSINOPHILS % (AUTO) 0.1 % (0-6); HEMATOCRIT 35.8 % (36.0-47.0); HEMOGLOBIN 11.4 g/dL (12.0-15.5); LYMPHOCYTES % (AUTO) 18.2 % (13-45); MEAN CORPUSCULAR HEMOGLOBIN 29.9 pg (27.0-33.4); MEAN CORPUSCULAR VOLUME 94 fl (80-97); MONOCYTES % (AUTO) 5.7 % (3-13); PLATELET COUNT 324 10^3/uL (150-450); RED BLOOD COUNT 3.83 10^6/uL (3.72-5.28); RED CELL DISTRIBUTION WIDTH 16.7 % (11.5-14.0); SEGMENTED NEUTROPHILS % (AUTO) 75.4 % (42-78); TOTAL CELLS COUNTED % (AUTO) 100 %
[2018-07-18] MEDS ORDERED: NITROGLYCERIN 2% OINTMENT 1 GM PACKET TP ONE (06:03)
--- NOTE | 2018-07-18 06:12 | RADIOLOGY REPORT (SQ) ---
CLINICAL HISTORY: shortness of breath COMPARISON: July 09, 2018. TECHNIQUE: XR CHEST 1 VIEW 07/18/2018 5:26 AM CDT FINDINGS: The heart is enlarged. Sternotomy was performed. Left AICD is present. There is worsening right basilar airspace disease. There is no pleural effusion. There is no pneumothorax. There are no acute osseous findings. IMPRESSION: Worsening right basilar pneumonia.
[2018-07-18 06:14] LABS: ARTERIAL BLOOD BASE EXCESS 1.3 mmol/L; ARTERIAL BLOOD H2CO3 1.27 mmol/L (1.05-1.35); ARTERIAL BLOOD HCO3 26.1 mmol/L (20-24); ARTERIAL BLOOD O2 SATURATION 96.4 % (94-98); ARTERIAL BLOOD PCO2 42.1 mmHg (35-45); ARTERIAL BLOOD PH 7.41 (7.35-7.45); ARTERIAL BLOOD PO2 84.5 mmHg (80-100); ARTERIAL BLOOD TOTAL CO2 27.4 mmol/L (21-25)
[2018-07-18] MEDS ORDERED: CEFEPIME 2 GM/D5W RTU 2 GM/50 ML RTUPB IV ONE (06:14)
[2018-07-18] MEDS ORDERED: VANCOMYCIN HCL INJ 1000 MG VIAL IV ONE (06:15)
[2018-07-18 06:18] LABS: ALANINE AMINOTRANSFERASE 61 U/L (9-52); ALBUMIN 4.3 g/dL (3.5-5.0); ALKALINE PHOSPHATASE 168 U/L (38-126); ANION GAP 13 (5-19); ASPARTATE AMINO TRANSFERASE 87 U/L (14-36); BILIRUBIN,DIRECT 0.5 mg/dL (0.0-0.4); BILIRUBIN,TOTAL 1.3 mg/dL (0.2-1.3); BLOOD UREA NITROGEN 20 mg/dL (7-20); CARBON DIOXIDE 26 mmol/L (22-30); CHLORIDE 106 mmol/L (98-107); GLUCOSE 166 mg/dL (75-110); POTASSIUM 3.9 mmol/L (3.6-5.0); TOTAL PROTEIN 7.9 g/dL (6.3-8.2)
[2018-07-18 06:25] LABS: ARTERIAL BLOOD FIO2 50%
[2018-07-18 06:30] LABS: TROPONIN I 0.026 ng/mL
[2018-07-18] MEDS ORDERED: METHYLPREDNISOLONE INJ 125 MG/2 ML SDV IV ONE (06:31)
[2018-07-18] MEDS ORDERED: ALBUTEROL SULFATE 0.083% NEB 2.5 MG/3 ML AMPUL NEB PRN (08:30)
[2018-07-18] MEDS ORDERED: ACETAMINOPHEN 325 MG TABLET PO PRN (08:30)
[2018-07-18] MEDS ORDERED: GUAIFENESIN SYRP 200 MG/10 ML UDC PO PRN (08:30)
[2018-07-18] MEDS ORDERED: VANCOMYCIN HCL 0 MG in DEXTROSE 5%-WATER 250 ML IV NR (08:45)
[2018-07-18] MEDS ORDERED: FUROSEMIDE INJ/PF 20 MG/2 ML SDV IV ONE ×2 (09:00→10:30)
[2018-07-18] MEDS: OXYCODONE-ACETAMINOPHEN 5-325 MG TABLET PO PRN ×3 (10:30→22:38)
[2018-07-18] MEDS: ASPIRIN 81 MG TABLET, CHEWABLE PO SCH (10:30)
[2018-07-18] MEDS: BUSPIRONE HCL 10 MG TABLET PO SCH ×2 (10:30→22:19)
[2018-07-18] MEDS: FAMOTIDINE 20 MG TABLET PO SCH ×2 (10:31→17:09)
[2018-07-18] MEDS: PAROXETINE HCL 20 MG TABLET PO SCH (10:32)
[2018-07-18] MEDS: GUAIFENESIN 600 MG TABLET.SA PO SCH ×2 (10:32→22:18)
[2018-07-18] MEDS: CEFEPIME 1 GM/D5W RTU 1 GM/50 ML RTUPB IV SCH ×2 (10:33→22:19)
[2018-07-18] MEDS: IPRATROPIUM/ALBUTEROL 0.5-2.5 MG/3 ML AMPUL NEB SCH ×2 (14:18→21:20)
[2018-07-18] MEDS: HEPARIN SOD (PORCINE) 5,000 UNIT/ML 1 ML SYRINGE SUBCUT SCH ×2 (15:13→22:18)
--- NOTE | 2018-07-18 18:53 | PDOC H&P ---
History of Present Illness Admission Date/PCP: 07/18/18 08:14 YI SANCHEZ DO Patient complains of: shortness of breath History of Present Illness: FRANKI DEL ROSARIO is a 47 year old female with a past medical history of CHF with LVEF 20 to 25% and AICD, [place], CABG (2006) with subsequent coronary artery stenting, COPD, CKD 3, GERD, depression, and morbid obesity who presented to the emergency department today with 3 days of progressively worsening dyspnea, ortho pnea, and generalized fatigue. Evaluation in the emergency department found hypertension (163/113), tachypnea (low 20s), hypoxia on room air (90%; not home O2 dependent), anemia (hemoglobin 11.4; improved from previous), acceptable ABG, CKD 4 (creatinine of 1.54 with baseline of 1.2), and elevated proBNP (4670 up from 594 one week ago). EKG demonstrated atrial sensed ventricularly paced rhythm and chest x-ray demonstrated a worsening right basilar pneumonia. She is empirically placed on IV vancomycin and cefepime; referred to the hospitalist service for admission and management of healthcare associated pneumonia. Past Medical History Cardiac Medical History: Reports: Congestive Heart Failure, Coronary Artery Disease, Myocardial Infarction, Hyperlipidema, Hypertension Pulmonary Medical History: Reports: Chronic Obstructive Pulmonary Disease (COPD) Denies: Asthma Neurological Medical History: Denies: Ischemic CVA, Seizures Endocrine Medical History: Reports: Obesity Denies: Diabetes Mellitus Type 2, Hypothyroidism GI Medical History: Reports: Gastroesophageal Reflux Disease Denies: Hepatitis, Hiatal Hernia Psychiatric Medical History: Reports: Depression Hematology: Denies: Anemia, Sickle Cell Disease Past Surgical History Past Surgical History: Reports: Cardiac Catheterization - multiple stents, Section, Coronary Artery Bypass Graft - 2006, Hysterectomy, Pacemaker - AICD, Tubal Ligation Denies: Amputation, Mastectomy Social History Information Source: Patient Lives with: Family Smoking Status: Former Smoker Number of Years Smokin Frequency of Alcohol Use: Occasional Hx Recreational Drug Use: Yes Drugs: Marijuana Hx Prescription Drug Abuse: No - Advance Directive Resuscitation Status: Full Code Family History Family History: Reviewed & Not Pertinent Parental Family History Reviewed: Yes Children Family History Reviewed: Yes Sibling(s) Family History Reviewed.: Yes Medication/Allergy Home Medications: Amiodarone HCl [Cordarone 200 mg Tablet] 200 mg PO BID 05/18/18 Apixaban [Eliquis 5 mg Tablet] 5 mg PO Q12 05/18/18 Atorvastatin Calcium [Lipitor 80 mg Tablet] 80 mg PO QHS 05/18/18 Buspirone HCl [Buspar 10 mg Tablet] 10 mg PO Q12 05/18/18 Famotidine [Pepcid 40 mg Tablet] 40 mg PO BID 05/18/18 Isosorbide Mononitrate [Imdur 60 mg Tablet.er] 60 mg PO DAILY 05/18/18 Melatonin [Melatonin 1 mg Tablet] 1 mg PO QHS 05/18/18 Metoprolol Succinate [Toprol Xl 50 mg Tab.sr] 50 mg PO DAILY 05/18/18 Paroxetine HCl [Paxil 20 mg Tablet] 20 mg PO DAILY 05/18/18 Furosemide [Lasix 80 mg Tablet] 80 mg PO BID 30 Days #60 tablet 05/19/18 Aspirin [Aspirin 81 mg Chewable Tablet] 81 mg PO DAILY 07/09/18 Sacubitril/Valsartan [Entresto 49 mg/51 mg Tablet] 1 tab PO Q12 07/09/18 Salmeterol Xinafoate [Serevent Diskus 50 Mcg/Dose 28 Dose/Diskus] 50 mcg IH Q12 #1 disk 07/12/18 Tiotropium [place] [Spiriva Handihaler 5 Cap/Kit (18 Mcg/Cap)] 1 cap IH DAILY #1 kit 07/12/18 Allergies/Adverse Reactions: egg [Egg] Allergy (Verified 07/09/18 06:16) hydrocodone [From Vicodin] Allergy (Verified 07/09/18 06:16) diphenhydramine HCl [From Benadryl] Adverse Reaction (Verified 07/09/18 06:16) chest pain, bigemeny rhythm Review of Systems Constitutional: PRESENT: fatigue. ABSENT: chills, fever(s), headache(s), weight gain, weight loss Eyes: ABSENT: visual disturbances Ears: ABSENT: hearing changes Cardiovascular: PRESENT: dyspnea on exertion. ABSENT: chest pain, edema, orthropnea, palpitations Respiratory: PRESENT: cough, dyspnea, sputum. ABSENT: hemoptysis Gastrointestinal: ABSENT: abdominal pain, constipation, diarrhea, hematemesis, hematochezia, nausea, vomiting Genitourinary: ABSENT: dysuria, hematuria Musculoskeletal: ABSENT: joint swelling Integumentary: ABSENT: rash, wounds Neurological: ABSENT: abnormal gait, abnormal speech, confusion, dizziness, focal weakness, syncope Psychiatric: ABSENT: anxiety, depression, homidical ideation, suicidal ideation Endocrine: ABSENT: cold intolerance, heat intolerance, polydipsia, polyuria Hematologic/Lymphatic: ABSENT: easy bleeding, easy bruising Physical Exam Vital Signs: Temp Pulse Resp BP Pulse Ox 97.3 F 66 21 H 122/86 H 100 07/18/18 17:12 07/18/18 17:12 07/18/18 17:12 07/18/18 17:12 07/18/18 17:12 Intake & Output 07/17/18 07/18/18 07/19/18 06:59 06:59 06:59 Intake Total 100 Balance 100 Weight 112.5 kg General appearance: PRESENT: mild distress, obese, well-developed Head exam: PRESENT: atraumatic, normocephalic Eye exam: PRESENT: conjunctiva pink, EOMI, PERRLA. ABSENT: scleral icterus Ear exam: PRESENT: normal external ear exam Mouth exam: PRESENT: moist, tongue midline Neck exam: ABSENT: carotid bruit, JVD, lymphadenopathy, thyromegaly Respiratory exam: PRESENT: accessory muscle use, decreased breath sounds - Bibasilar, symmetrical, tachypnea, wheezes, other - BiPAP. ABSENT: rales, rhonchi Cardiovascular exam: PRESENT: RRR, +S1, +S2. ABSENT: diastolic murmur, rubs, systolic murmur Pulses: PRESENT: normal dorsalis pedis pul Vascular exam: PRESENT: normal capillary refill GI/Abdominal exam: PRESENT: normal bowel sounds, soft. ABSENT: distended, guarding, mass, organolmegaly, rebound, tenderness Rectal exam: PRESENT: deferred Extremities exam: PRESENT: full ROM, +1 edema - BLE. ABSENT: calf tenderness, clubbing, pedal edema Neurological exam: PRESENT: alert, awake, oriented to person, oriented to place, oriented to time, oriented to situation, CN II-XII grossly intact. ABSENT: m otor sensory deficit Psychiatric exam: PRESENT: anxious, appropriate affect, normal mood. ABSENT: homicidal ideation, suicidal ideation Skin exam: PRESENT: dry, intact, warm. ABSENT: cyanosis, rash Results Laboratory Results: 07/18/18 05:30 07/18/18 05:30 07/18/18 07/18/18 07/18/18 05:30 05:30 05:30 WBC 7.0 RBC 3.83 Hgb 11.4 L Hct 35.8 L MCV 94 MCH 29.9 MCHC 32.0 RDW 16.7 H Plt Count 324 Seg Neutrophils % 75.4 Lymphocytes % 18.2 Monocytes % 5.7 Eosinophils % 0.1 Basophils % 0.6 Absolute Neutrophils 5.3 Absolute Lymphocytes 1.3 Absolute Monocytes 0.4 Absolute Eosinophils 0.0 Absolute Basophils 0.0 Carbonic Acid 1.27 HCO3/H2CO3 Ratio 20:1 ABG pH 7.41 ABG pCO2 42.1 ABG pO2 84.5 ABG HCO3 26.1 H ABG O2 Saturation 96.4 ABG Base Excess 1.3 FiO2 50% Sodium 145.0 Potassium 3.9 Chloride 106 Carbon Dioxide 26 Anion Gap 13 BUN 20 Creatinine 1.54 H Est GFR ( Amer) 44 L Est GFR (Non-Af Amer) 36 L Glucose 166 H Calcium 9.0 Total Bilirubin 1.3 AST 87 H ALT 61 H Alkaline Phosphatase 168 H Total Protein 7.9 Albumin 4.3 07/18/18 05:30 Troponin I 0.026 NT-Pro-B Natriuret Pep 4670 H Impressions: Chest X-Ray 07/18/18 05:26 IMPRESSION: Worsening right basilar pneumonia. Assessment and Plan - Diagnosis (1) Healthcare-associated pneumonia Is this a current diagnosis for this admission?: Yes Plan: Patient presented with worsening dyspnea and chest x-ray that demonstrates worsening right lower lobe consolidation. She was noted to have a low-grade temperature of 99.1, normal heart rate, stable blood pressures (improved after resuming home medication regiment), tachypnea and hypoxia requiring BiPAP support. Blood cultures are pending. Sputum cultures are ordered. She is admitted to [facility] on continuous cardiac telemetry. She is provided supplemental oxygen and BiPAP as needed to maintain saturations greater than 89%. She is provided scheduled and as needed nebulizer treatments. As the patient was discharged from this facility 5 weeks ago, she has been empirically placed on IV Cefepime and vancomycin for coverage of a healthcare associated pneumonia (increased risk of MRSA and Pseudomonas). Will adjust antibiotics as cultures result. Mucinex twice daily. Pulmonary toilet with incentive spirometer and flutter valve hourly when off BiPAP. (2) Acute respiratory failure with hypoxia Is this a current diagnosis for this admission?: Yes Plan: Secondary to #1. Evaluation and management as above. (3) Chronic systolic CHF (congestive heart failure) Is this a current diagnosis for this admission?: Yes Plan: We will continue the patient's home medication regiment of Eliquis, aspirin, atorvastatin, amiodarone, isosorbide, metoprolol, Entresto, and furosemide. Cardiac diet. Strict I&O's with daily weights. As the patient has had multiple readmissions for CHF exacerbation and has yet to establish with local division roadmaster, will consult Dr. Martin. Hopefully meeting with the division roadmaster prior to discharge will improve outpatient follow- up. Appreciate his assistance. (4) CKD (chronic kidney disease), stage III Is this a current diagnosis for this admission?: Yes Plan: Avoid nephrotoxic medications as able. Optimize cardiac output. Monitor daily chemistries. Consider nephrology consultation if creatinine continues to worsen (currently 1.54 with baseline of 1.2). - Time Time Spent with patient: 35 or more minutes Medications reviewed and adjusted accordingly: Yes Anticipated discharge: Home Within: within 72 hours - Inpatient Certification Based on my medical assessment, after consideration of the patient's hector rbidities, presenting symptoms, or acuity I expect that the services needed warrant INPATIENT care.: Yes I certify that my determination is in accordance with my understanding of Medicare's requirements for reasonable and necessary INPATIENT services [42 CFR 412.3e].: Yes Medical Necessity: Need For IV Fluids, Need For Continuous Telemetry Monitoring, Need for Nebulizer Therapy and Monitoring of Response, Need for IV Antibiotics
[2018-07-18] MEDS ORDERED: ATORVASTATIN CALCIUM 80 MG TABLET PO SCH (22:00)
[2018-07-18] MEDS: SACUBITRIL/VALSARTAN 49 MG/51 MG TABLET PO SCH (22:19)
[2018-07-18] MEDS: APIXABAN 5 MG TABLET PO SCH (22:19)
[2018-07-18] MEDS: MELATONIN 1 MG TABLET PO SCH (22:19)
[2018-07-18] MEDS: SALMETEROL XINAFOATE DISKUS 50 MCG/1 DOSE 28 DOSE IH SCH (22:21)
[2018-07-19] MEDS: IPRATROPIUM/ALBUTEROL 0.5-2.5 MG/3 ML AMPUL NEB SCH ×4 (01:59→20:42)
[2018-07-19] MEDS: HEPARIN SOD (PORCINE) 5,000 UNIT/ML 1 ML SYRINGE SUBCUT SCH ×3 (05:03→22:40)
[2018-07-19 05:45] LABS: HEMATOCRIT 31.2 % (36.0-47.0); HEMOGLOBIN 10.2 g/dL (12.0-15.5); MEAN CORPUSCULAR HEMOGLOBIN 30.4 pg (27.0-33.4); MEAN CORPUSCULAR HGB CONC 32.6 g/dL (32.0-36.0); MEAN CORPUSCULAR VOLUME 93 fl (80-97); PLATELET COUNT 232 10^3/uL (150-450); RED BLOOD COUNT 3.34 10^6/uL (3.72-5.28); RED CELL DISTRIBUTION WIDTH 16.8 % (11.5-14.0); WHITE BLOOD COUNT 5.9 10^3/uL (4.0-10.5)
[2018-07-19 06:04] LABS: ANION GAP 9 (5-19); BLOOD UREA NITROGEN 21 mg/dL (7-20); CARBON DIOXIDE 30 mmol/L (22-30); CHLORIDE 106 mmol/L (98-107); GLUCOSE 127 mg/dL (75-110); POTASSIUM 4.3 mmol/L (3.6-5.0); SODIUM 145.2 mmol/L (137-145)
[2018-07-19] MEDS: OXYCODONE-ACETAMINOPHEN 5-325 MG TABLET PO PRN ×2 (08:24→16:58)
[2018-07-19] MEDS: VANCOMYCIN HCL 1,500 MG in DEXTROSE 5%-WATER 250 ML IV SCH (08:25)
--- NOTE | 2018-07-19 10:27 | EKG REPORT ---
SEVERITY:- ABNORMAL ECG - ATRIAL-SENSED VENTRICULAR-PACED RHYTHM : Confirmed by: Verna Frederick 19-Jul-2018 10:27:11
[2018-07-19] MEDS: METOPROLOL SUCCINATE 50 MG TAB.SR.24H PO SCH (10:29)
[2018-07-19] MEDS: AMIODARONE HCL 200 MG TABLET PO SCH ×2 (10:29→17:00)
[2018-07-19] MEDS: APIXABAN 5 MG TABLET PO SCH ×2 (10:30→22:40)
[2018-07-19] MEDS: FUROSEMIDE 80 MG TABLET PO SCH ×2 (10:30→17:00)
[2018-07-19] MEDS: ASPIRIN 81 MG TABLET, CHEWABLE PO SCH (10:30)
[2018-07-19] MEDS: FAMOTIDINE 20 MG TABLET PO SCH ×2 (10:30→17:00)
[2018-07-19] MEDS: ISOSORBIDE MONONITRATE 60 MG TAB.ER.24H PO SCH (10:30)
[2018-07-19] MEDS: GUAIFENESIN 600 MG TABLET.SA PO SCH ×2 (10:30→22:42)
[2018-07-19] MEDS: SACUBITRIL/VALSARTAN 49 MG/51 MG TABLET PO SCH ×2 (10:31→22:40)
[2018-07-19] MEDS: CEFEPIME 1 GM/D5W RTU 1 GM/50 ML RTUPB IV SCH ×2 (10:31→22:41)
[2018-07-19] MEDS: BUSPIRONE HCL 10 MG TABLET PO SCH ×2 (10:31→22:40)
[2018-07-19] MEDS: TIOTROPIUM BROMIDE DPI 5 CAP/KIT (18 MCG/CAP) IH SCH (10:32)
[2018-07-19] MEDS: SALMETEROL XINAFOATE DISKUS 50 MCG/1 DOSE 28 DOSE IH SCH ×2 (10:33→22:42)
[2018-07-19] MEDS: PAROXETINE HCL 20 MG TABLET PO SCH (10:35)
[2018-07-19 10:44] LABS: FREE T3 2.61 pg/mL (2.77-5.27); FREE T4 (FREE THYROXINE) 1.35 ng/dL (0.78-2.19)
[2018-07-19 11:48] LABS: THYROID STIMULATING HORMONE 2.88 uIU/mL (0.47-4.68)
[2018-07-19] MEDS ORDERED: HALOPERIDOL LACTATE INJ 5 MG/1 ML VIAL IV ONE (14:36)
[2018-07-19] MEDS: HYDROXYZINE PAMOATE 25 MG CAPSULE PO PRN ×2 (17:28→23:28)
--- NOTE | 2018-07-19 17:47 | PDOC PROGRESS REPORT ---
Subjective Progress Note for:: 07/19/18 Subjective:: FRANKI DEL ROSARIO is a 47 year old female with a past medical history of CHF with LVEF 20 to 25% and AICD, [place], CABG (2006) with subsequent coronary artery stenting, COPD, CKD 3, GERD, depression, and morbid obesity who is admitted for acute respiratory failure with hypoxia secondary to healthcare associated pneumonia and CHF exacerbation. Patient was seen on afternoon rounds; she was very upset as she had learned that a close personal friend had recently . At the time of my visit, she had just received IV Haldol for anxiety/panic attack. She reports that her breathing is much improved following the medication and that overall it is improved as compared to yesterday. She does endorse that she had slight chest pain resolved immediately upon receiving Haldol. She denies any other episodes of chest discomfort today. Per nursing, the patient was crying hysterically, rocking back and forth, and yelling out due to grief. She denies fever, chills, palpitations, orthopnea, cough, abdominal pain, nausea vomiting and diarrhea. She has no other questions or concerns at this time. No concerns per nursing. Reason For Visit: HYPOXIA, ACUTE RESPIRATORY FAILURE W HYPOXIA,CHF Physical Exam Vital Signs: Temp Pulse Resp BP Pulse Ox 97.7 F 58 L 20 115/67 93 07/19/18 16:03 07/19/18 16:03 07/19/18 16:03 07/19/18 16:03 07/19/18 16:03 Intake & Output 07/18/18 07/19/18 07/20/18 06:59 06:59 06:59 Intake Total 150 692 Output Total 520 1225 Balance -370 -533 Weight 113.9 kg General appearance: PRESENT: no acute distress, obese, well-developed, well- nourished Head exam: PRESENT: atraumatic, normocephalic Eye exam: PRESENT: conjunctiva pink, EOMI, PERRLA. ABSENT: scleral icterus Ear exam: PRESENT: normal external ear exam Mouth exam: PRESENT: moist, tongue midline Neck exam: ABSENT: carotid bruit, JVD, lymphadenopathy, thyromegaly Respiratory exam: PRESENT: decreased breath sounds, prolonged expiratory phas, rhonchi, symmetrical, unlabored, other - BiPAP. ABSENT: rales, wheezes Cardiovascular exam: PRESENT: RRR, +S1, +S2. ABSENT: diastolic murmur, rubs, systolic murmur Pulses: PRESENT: normal dorsalis pedis pul Vascular exam: PRESENT: normal capillary refill GI/Abdominal exam: PRESENT: normal bowel sounds, soft. ABSENT: distended, guarding, mass, organolmegaly, rebound, tenderness Rectal exam: PRESENT: deferred Extremities exam: PRESENT: full ROM. ABSENT: calf tenderness, clubbing, pedal edema, +1 edema Neurological exam: PRESENT: alert, awake, oriented to person, oriented to place, oriented to time, oriented to situation, CN II-XII grossly intact. ABSENT: motor sensory deficit Psychiatric exam: PRESENT: anxious, appropriate affect, normal mood. ABSENT: homicidal ideation, suicidal ideation Skin exam: PRESENT: dry, intact, warm. ABSENT: cyanosis, rash Results Laboratory Results: 07/19/18 05:03 07/19/18 05:03 07/19/18 07/19/18 07/19/18 05:03 05:03 05:30 WBC 5.9 RBC 3.34 L Hgb 10.2 L Hct 31.2 L MCV 93 MCH 30.4 MCHC 32.6 RDW 16.8 H Plt Count 232 Sodium 145.2 H Potassium 4.3 Chloride 106 Carbon Dioxide 30 Anion Gap 9 BUN 21 H Creatinine 1.49 H Est GFR ( Amer) 46 L Est GFR (Non-Af Amer) 38 L Glucose 127 H Calcium 9.0 TSH 2.88 Free T4 1.35 Free T3 pg/mL 2.61 L 07/18/18 05:30 Troponin I 0.026 NT-Pro-B Natriuret Pep 4670 H Impressions: Chest X-Ray 07/18/18 05:26 IMPRESSION: Worsening right basilar pneumonia. Assessment and Plan - Diagnosis (1) Healthcare-associated pneumonia Is this a current diagnosis for this admission?: Yes Plan: Improved; tachypnea and tachycardia are decreased; now able to come off BiPAP for meals without discomfort. Patient presented with worsening dyspnea and chest x-ray that demonstrates worsening right lower lobe consolidation. She was noted to have a low-grade temperature of 99.1, normal heart rate, stable blood pressures (improved after resuming home medication regiment), tachypnea and hypoxia requiring BiPAP support. Blood cultures are negative at 24 hours. Sputum cultures are ordered. She is admitted to [facility] [place] on continuous cardiac telemetry. She is provided supplemental oxygen and BiPAP as needed to maintain saturations greater than 89%. She is provided scheduled and as needed nebulizer treatments. As the patient was discharged from this facility 5 weeks ago, she has been empirically placed on IV Cefepime and vancomycin for coverage of a healthcare associated pneumonia (increased risk of MRSA and Pseudomonas). Will adjust antibiotics as cultures result. Mucinex twice daily. Pulmonary toilet with incentive spirometer and flutter valve hourly when off BiPAP. (2) Acute respiratory failure with hypoxia Is this a current diagnosis for this admission?: Yes Plan: Secondary to #1. Evaluation and management as above. (3) Chronic systolic CHF (congestive heart failure) Is this a current diagnosis for this admission?: Yes Plan: proBNP 4670 Echocardiogram April 2018 reveals LVEF 20-25% We will continue the patient's home medication regiment of Eliquis, aspirin, amiodarone, isosorbide, metoprolol, Entresto, and furosemide. Cardiac diet. Strict I&O's with daily weights. Cardiology is consulted; appreciate Dr. Ragsdale's assistance. (4) CKD (chronic kidney disease), stage III Is this a current diagnosis for this admission?: Yes Plan: Creatinine and BUN stable; perhaps new baseline. Avoid nephrotoxic medications as able. Optimize cardiac output. Monitor daily chemistries. Consider nephrology consultation if creatinine continues to worsen (currently 1.54 with baseline of 1.2). (5) Grief reaction Is this a current diagnosis for this admission?: Yes Plan: Patient just learned that a close friend unexpectedly . IV Haldol x1; Vistaril 25 mg every 8 hours as needed. - Time Time Spent with patient: 25-34 minutes Medications reviewed and adjusted accordingly: Yes Anticipated discharge: Home Within: within 72 hours
[2018-07-19] MEDS: MELATONIN 1 MG TABLET PO SCH (22:41)
--- NOTE | 2018-07-19 23:56 | PDOC CONSULTATION ---
Consultation-Blank Consultation: CARDIOLOGY CONSULTATION by Dr. Griselda Martin on 07/19/2018. Patient seen at 10:30 AM on 07/19/2018. 60 minutes spent on this patient with more than 50% of time spent in direct patient care. This included also reviewing the patient's medical records from [facility]. Records from [facility] are awaited. 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 She denies any chest pain or discomfort. There is no palpitations of firing of the AICD. The patient also states that she was coughing up pink frothy sputum. Her chest x-ray is consistent not only with the heart failure and a right lower lobe pneumonia, but also there are some areas which is suspicious for amiodarone induced toxicity. At the patient patient states she feels better with the treatment but still has shortness of breath on ambulating inside the room. She has chronic orthopnea but this is getting better and she is less orthopneic than she came in. Her leg edema is also much improved and there is only trace to mild pedal edema. There is no firing of the AICD. The patient has no anginal symptoms. Past Medical History Cardiac Medical History: Reports: Congestive Heart Failure, Coronary Artery Disease, Myocardial Infarction, Hyperlipidema, Hypertension. She has a history of ventricular tachycardia, and paroxysmal atrial fibrillation, and is on amiodarone for this, and also Eliquis, and also has not AICD placed. Pulmonary Medical History: Reports: Chronic Obstructive Pulmonary Disease (COPD). History of sleep apnea, but the patient does not use CPAP at home. Although she denies asthma she has been having it. Denies: Asthma Neurological Medical History: Denies: Ischemic CVA, Seizures Endocrine Medical History: Reports: Obesity Denies: Diabetes Mellitus Type 2, Hypothyroidism GI Medical History: Reports: Gastroesophageal Reflux Disease Denies: Hepatitis, Hiatal Hernia Psychiatric Medical History: Reports: Depression. 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 GENITOURINARY: She has a history of chronic kidney disease stage III. Hematology: Denies: Anemia, Sickle Cell Disease Past Surgical History Past Surgical History: Reports: Cardiac Catheterization - multiple stents, Section, Coronary Artery Bypass Graft - 2006, Hysterectomy, Pacemaker - AICD, Tubal Ligation Social History Information Source: Patient Lives with: Family Smoking Status: Former Smoker Number of Years Smokin Frequency of Alcohol Use: Occasional Hx Recreational Drug Use: Yes Drugs: Marijuana Hx Prescription Drug Abuse: No - Advance Directive Resuscitation Status: Full Code. The patient's daughter is a surrogate healthcare decision maker. Family History Family History: Positive coronary artery disease, hypertension and heart failure. Medication/Allergy Home Medications: Amiodarone HCl [Cordarone 200 mg Tablet] 200 mg PO BID 05/18/18 Apixaban [Eliquis 5 mg Tablet] 5 mg PO Q12 05/18/18 Atorvastatin Calcium [Lipitor 80 mg Tablet] 80 mg PO QHS 05/18/18 Buspirone HCl [Buspar 10 mg Tablet] 10 mg PO Q12 05/18/18 Famotidine [Pepcid 40 mg Tablet] 40 mg PO BID 05/18/18 Isosorbide Mononitrate [Imdur 60 mg Tablet.er] 60 mg PO DAILY 05/18/18 Melatonin [Melatonin 1 mg Tablet] 1 mg PO QHS 05/18/18 Metoprolol Succinate [Toprol Xl 50 mg Tab.sr] 50 mg PO DAILY 05/18/18 Paroxetine HCl [Paxil 20 mg Tablet] 20 mg PO DAILY 05/18/18 Furosemide [Lasix 80 mg Tablet] 80 mg PO BID 30 Days #60 tablet 05/19/18 Aspirin [Aspirin 81 mg Chewable Tablet] 81 mg PO DAILY 07/09/18 Sacubitril/Valsartan [Entresto 49 mg/51 mg Tablet] 1 tab PO Q12 07/09/18 Salmeterol Xinafoate [Serevent Diskus 50 Mcg/Dose 28 Dose/Diskus] 50 mcg IH Q12 #1 disk 07/12/18 Tiotropium [place] [Spiriva Handihaler 5 Cap/Kit (18 Mcg/Cap)] 1 cap IH DAILY #1 kit 07/12/18 Allergies/Adverse Reactions: egg [Egg] Allergy (Verified 07/09/18 06:16) hydrocodone [From Vicodin] Allergy (Verified 07/09/18 06:16) diphenhydramine HCl [From Benadryl] Adverse Reaction (Verified 07/09/18 06:16) chest pain, bigemeny rhythm Review of Systems Constitutional: PRESENT: fatigue. ABSENT: chills, fever(s), headache(s), weight gain, weight loss Eyes: ABSENT: visual disturbances Ears: ABSENT: hearing changes Cardiovascular: PRESENT: dyspnea on exertion. ABSENT: chest pain, edema, orthropnea, palpitations Respiratory: PRESENT: cough, dyspnea, sputum. ABSENT: hemoptysis Gastrointestinal: ABSENT: abdominal pain, constipation, diarrhea, hematemesis, hematochezia, nausea, vomiting Genitourinary: ABSENT: dysuria, hematuria Musculoskeletal: ABSENT: joint swelling Integumentary: ABSENT: rash, wounds Neurological: ABSENT: abnormal gait, abnormal speech, confusion, dizziness, focal weakness, syncope Psychiatric: ABSENT: anxiety, depression, homidical ideation, suicidal ideation Endocrine: ABSENT: cold intolerance, heat intolerance, polydipsia, polyuria Hematologic/Lymphatic: ABSENT: easy bleeding, easy bruising PHYSICAL EXAMINATION: The patient is morbidly obese. She is well-groomed. At present in no major distress. Selected Entries 07/19/18 07/19/18 07:51 07:57 Temperature 97.5 F Temperature Axillary Source Pulse Rate 60 63 Respiratory 17 19 Rate Blood Pressure 119/81 Blood Pressure 93 Mean There is very minimal left-sided weakness. BP Location Left Arm BP Position Supine O2 Sat by Pulse 100 98 Oximetry Fraction of 50 Inspired Oxygen (FIO2) Oxygen Delivery Bipap Method HEAD: Is atraumatic normocephalic. EYES: Pupils are equal round regular reactive to light and accommodation. There is no conjunctival pallor. There is no scleral icterus. EARS: Tympanic membranes are intact. External auditory canals are clear. NOSE: Nasal mucous membranes are moist. There is no inflammation of the nasal mucous membranes. There is no deviated nasal septum. MOUTH: Mucous membranes of mouth are moist tongue is moist. There is no ulcers. There is no bleeding from the gums. THROAT: There is no redness of the oropharynx there is no exudates. SKIN: There is no skin rashes or skin lesions. There is no particular ecchymosis. NECK: Is supple. There is mild JVD present. Carotids are equal there is no bruits. There is no lymphadenopathy. There is no goiter. There is no accessory muscle respiration use. Trachea central. LUNGS: Shows bibasilar rales of CHF. There is a dry crackles scattered throughout the lung. There is also dry crackles in the right lower lobe. There is diminished air entry and prolonged expiration. On percussion there is hyperresonance. On palpation there is no chest wall tenderness. HEART: S1-S2 is heard. There is no S3 gallop. There is no S4 gallop. There is systolic murmur mitral regurgitation tricuspid regurgitation present. There is no aortic stenosis murmur. There is no aortic insufficiency murmur. There is no rub. ABDOMEN: Is obese. Nontender. There is no hepatosplenomegaly. Bowel sounds are well heard. There is no rebound guarding or rigidity. EXTREMITIES: Femorals are deep. Femorals are diminished. There is no femoral bruits. There is decreased leg pulses. There is mild pedal edema. There is no DVT or cellulitis. There is no calf tenderness. DRAFTER HEATING AND VENTILATING: The patient is conscious awake alert oriented x3 . There is minimal left-sided weakness PSYCHIATRIC: The patient judgment insight are intact her affect is normal. Current Medications Generic Name Dose Route Start Last Admin Trade Name Freq PRN Reason Stop Dose Admin Acetaminophen 650 mg 07/18/18 08:30 Tylenol 325 Mg Tablet PO 08/17/18 08:29 Q4HP PRN pain or temp greater than 101F Albuterol 2.5 mg 07/18/18 08:30 Ventolin 0.083% Neb 2.5 Mg/3 Ml Ampul NEB 08/17/18 08:29 RTQ4HP PRN SHORTNESS OF BREATH Albuterol/Ipratropium 3 ml 07/18/18 14:00 07/19/18 20:42 Duoneb 3 Ml Ampul NEB 08/17/18 13:59 3 ml RTQ6 WILY Administration Amiodarone HCl 200 mg 07/19/18 10:00 07/19/18 17:00 Cordarone 200 Mg Tablet PO 08/18/18 09:59 200 mg BID WILY Administration Apixaban 5 mg 07/18/18 22:00 07/19/18 22:40 Eliquis 5 Mg Tablet PO 08/17/18 21:59 5 mg Q12 WILY Administration Aspirin 81 mg 07/18/18 10:00 07/19/18 10:30 Aspirin 81 Mg Chewable Tablet PO 08/17/18 09:59 81 mg DAILY WILY Administration Buspirone HCl 10 mg 07/18/18 10:00 07/19/18 22:40 Buspar 10 Mg Tablet PO 08/17/18 09:59 10 mg Q12 WILY Administration Famotidine 40 mg 07/18/18 10:00 07/19/18 17:00 Pepcid 20 Mg Tablet PO 08/17/18 09:59 40 mg BID WILY Administration Furosemide 80 mg 07/19/18 10:00 07/19/18 17:00 Lasix 80 Mg Tablet PO 08/18/18 09:59 80 mg BID WILY Administration Guaifenesin 600 mg 07/18/18 10:00 07/19/18 22:42 Mucinex Sr 600 Mg Tablet.Sa PO 08/17/18 09:59 600 mg Q12 WILY Administration Guaifenesin 200 mg 07/18/18 08:30 Robitussin Syrup 200 Mg/10 Ml Ud Cup PO 08/17/18 08:29 Q4HP PRN COUGH Heparin Sodium (Porcine) 5,000 unit 07/18/18 14:00 07/19/18 22:40 Heparin Inj 5,000 Units/Ml 1 Ml Syringe SUBCUT 08/17/18 13:59 5,000 unit Q8 WILY Administration Hydroxyzine Pamoate 25 mg 07/19/18 14:37 07/19/18 23:28 Vistaril 25 Mg Capsule PO 08/18/18 14:36 25 mg Q6HP PRN Administration ANXIETY/AGITATION Cefepime HCl 1 gm in 50 mls @ 100 mls/hr 07/18/18 10:00 07/19/18 22:41 Maxipime Rtu 1 Gm/D5w 50 Ml Premix Bag IV 07/25/18 09:59 100 mls/hr Q12 WILY 100 mls/hr Administration Vancomycin HCl 1,500 mg/ 250 mls @ 166.667 mls/hr 07/19/18 08:00 07/19/18 10:00 Dextrose IV 07/26/18 07:59 Infused QAM WILY Infusion Isosorbide Mononitrate 60 mg 07/19/18 10:00 07/19/18 10:30 Imdur 60 Mg Tablet.Er PO 08/18/18 09:59 60 mg DAILY WILY Administration Melatonin 1 mg 07/18/18 22:00 07/19/18 22:41 Melatonin 1 Mg Tablet PO 08/17/18 21:59 1 mg QHS WILY Administration Metoprolol Succinate 50 mg 07/19/18 10:00 07/19/18 10:29 Toprol Xl 50 Mg Tab.Sr PO 08/18/18 09:59 50 mg DAILY WILY Administration Nitroglycerin 1 tab 07/18/18 05:27 07/18/18 05:30 Nitrostat 0.4 Mg (1/150 Gr) Tabs 25/Bottle SL 1 tab ASDIR PRN Administration CONGESTION Oxycodone/Acetaminophen 2 tab 07/18/18 08:47 07/19/18 16:58 Percocet 5-325 Mg Tablet PO 07/25/18 08:46 2 tab Q6HP PRN Administration FOR PAIN Paroxetine HCl 20 mg 07/18/18 10:00 07/19/18 10:35 Paxil 20 Mg Tablet PO 08/17/18 09:59 20 mg DAILY WILY Administration Sacubitril/Valsartan 1 tab 07/18/18 22:00 07/19/18 22:40 Entresto 49 Mg/51 Mg Tablet PO 08/17/18 21:59 1 tab Q12 WILY Administration Salmeterol Xinafoate 50 mcg 07/18/18 22:00 07/19/18 22:42 Serevent Diskus 50 Mcg/Dose 28 Dose/Diskus IH 08/17/18 21:59 2 inhaler Q12 WILY Administration Sodium Chloride 2.5 ml 07/18/18 14:00 07/19/18 22:42 Saline Flush 2.5 Ml Monoject Prefil Syrin IV 08/17/18 13:59 2.5 ml Q8 WILY Administration Tiotropium [place] 1 cap 07/19/18 10:00 07/19/18 10:32 Spiriva Handihaler 5 Cap/Kit (18 Mcg/Cap) 08/18/18 09:59 1 cap DAILY WILY Administration Discontinued Medications Generic Name Dose Route Start Last Admin Trade Name Osbaldo PRN Reason Stop Dose Admin Albuterol/Ipratropium 3 ml 07/18/18 05:28 07/18/18 06:16 Duoneb 3 Ml Ampul NEB 07/18/18 05:29 3 ml NOW ONE Administration Atorvastatin Calcium 80 mg 07/18/18 22:00 07/18/18 22:18 Lipitor 80 Mg Tablet PO 08/17/18 21:59 80 mg QHS WILY Administration Furosemide 20 mg 07/18/18 09:00 Lasix Inj/Pf 20 Mg/2 Ml Sdv IV 07/18/18 09:01 NOW ONE Furosemide 40 mg 07/18/18 10:30 07/18/18 10:32 Lasix Inj/Pf 20 Mg/2 Ml Sdv IV 07/18/18 10:31 40 mg NOW ONE Administration Haloperidol Lactate 5 mg 07/19/18 14:36 07/19/18 14:47 Haldol 5 Mg/Ml Inj 1 Ml Vial IV 07/19/18 14:37 5 mg NOW ONE Administration Cefepime HCl 2 gm in 50 mls @ 100 mls/hr 07/18/18 06:14 07/18/18 08:02 Maxipime Rtu 2 Gm-D5w 50 Ml Premix Bag IV 07/18/18 06:43 Infused NOW ONE Infusion Lorazepam 0.5 mg 07/18/18 05:43 07/18/18 06:15 Ativan Inj 2 Mg/1 Ml Vial IV 07/18/18 05:44 0.5 mg NOW ONE Administration Lorazepam Confirm 07/18/18 05:40 07/18/18 05:57 Ativan Inj 2 Mg/1 Ml Vial Administered 07/18/18 05:41 Not Given Dose 2 mg .ROUTE .STK-MED ONE Methylprednisolone Sodium Succinate 125 mg 07/18/18 06:31 07/18/18 06:52 Solu-Medrol Inj/Pf 125 Mg/2 Ml Sdv IV 07/18/18 06:32 125 mg NOW ONE Administration Nitroglycerin Confirm 07/18/18 05:19 07/18/18 05:58 Nitrostat 0.4 Mg (1/150 Gr) Tabs 25/Bottle Administered 07/18/18 05:20 Not Given Dose 25 tab .ROUTE .STK-MED ONE Nitroglycerin 1 gm 07/18/18 06:03 05/21/19 06:16 Nitrol 2% Ointment 1gm Packet TP 07/18/18 06:04 1 gm NOW ONE Administration Ondansetron HCl 8 mg 07/18/18 05:38 07/18/18 06:15 Zofran Inj/Pf 4 Mg/2 Ml Sdv IV 07/18/18 05:39 8 mg NOW ONE Administration Vancomycin HCl 2,000 mg 07/18/18 06:15 07/18/18 06:52 Vancocin Inj 1000 Mg Vial IV 07/18/18 06:16 2,000 mg NOW ONE Administration Labs- Entire Visit 07/18/18 07/18/18 07/18/18 05:30 05:30 05:30 WBC 7.0 RBC 3.83 Hgb 11.4 L Hct 35.8 L MCV 94 MCH 29.9 MCHC 32.0 RDW 16.7 H Plt Count 324 Seg Neutrophils % 75.4 Lymphocytes % 18.2 Monocytes % 5.7 Eosinophils % 0.1 Basophils % 0.6 Absolute Neutrophils 5.3 Absolute Lymphocytes 1.3 Absolute Monocytes 0.4 Absolute Eosinophils 0.0 Absolute Basophils 0.0 Carbonic Acid HCO3/H2CO3 Ratio ABG pH ABG pCO2 ABG pO2 ABG HCO3 ABG Total CO2 ABG O2 Saturation ABG Base Excess FiO2 Sodium 145.0 Potassium 3.9 Chloride 106 Carbon Dioxide 26 Anion Gap 13 BUN 20 Creatinine 1.54 H Est GFR ( Amer) 44 L Est GFR (Non-Af Amer) 36 L Glucose 166 H Calcium 9.0 Total Bilirubin 1.3 Direct Bilirubin 0.5 H Neonat Total Bilirubin Not Reportable Neonat Direct Bilirubin Not Reportable Neonat Indirect Bili Not Reportable AST 87 H ALT 61 H Alkaline Phosphatase 168 H Troponin I 0.026 NT-Pro-B Natriuret Pep 4670 H Total Protein 7.9 Albumin 4.3 TSH Free T4 Free T3 pg/mL 07/18/18 07/19/18 07/19/18 05:30 05:03 05:03 WBC 5.9 RBC 3.34 L Hgb 10.2 L Hct 31.2 L MCV 93 MCH 30.4 MCHC 32.6 RDW 16.8 H Plt Count 232 Seg Neutrophils % Lymphocytes % Monocytes % Eosinophils % Basophils % Absolute Neutrophils Absolute Lymphocytes Absolute Monocytes Absolute Eosinophils Absolute Basophils Carbonic Acid 1.27 HCO3/H2CO3 Ratio 20:1 ABG pH 7.41 ABG pCO2 42.1 ABG pO2 84.5 ABG HCO3 26.1 H ABG Total CO2 27.4 H ABG O2 Saturation 96.4 ABG Base Excess 1.3 FiO2 50% Sodium 145.2 H Potassium 4.3 Chloride 106 Carbon Dioxide 30 Anion Gap 9 BUN 21 H Creatinine 1.49 H Est GFR ( Amer) 46 L Est GFR (Non-Af Amer) 38 L Glucose 127 H Calcium 9.0 Total Bilirubin Direct Bilirubin Neonat Total Bilirubin Neonat Direct Bilirubin Neonat Indirect Bili AST ALT Alkaline Phosphatase Troponin I NT-Pro-B Natriuret Pep Total Protein Albumin TSH Free T4 Free T3 pg/mL 07/19/18 05:30 WBC RBC Hgb Hct MCV MCH MCHC RDW Plt Count Seg Neutrophils % Lymphocytes % Monocytes % Eosinophils % Basophils % Absolute Neutrophils Absolute Lymphocytes Absolute Monocytes Absolute Eosinophils Absolute Basophils Carbonic Acid HCO3/H2CO3 Ratio ABG pH ABG pCO2 ABG pO2 ABG HCO3 ABG Total CO2 ABG O2 Saturation ABG Base Excess FiO2 Sodium Potassium Chloride Carbon Dioxide Anion Gap BUN Creatinine Est GFR ( Amer) Est GFR (Non-Af Amer) Glucose Calcium Total Bilirubin Direct Bilirubin Neonat Total Bilirubin Neonat Direct Bilirubin Neonat Indirect Bili AST ALT Alkaline Phosphatase Troponin I NT-Pro-B Natriuret Pep Total Protein Albumin TSH 2.88 Free T4 1.35 Free T3 pg/mL 2.61 L Chest X-Ray 07/18/18 05:26 IMPRESSION: Worsening right basilar pneumonia. There is also some focal densities suspicious for amiodarone toxicity. Later we will get a CT scan high resolution of the chest without contrast. There is also evidence of mild heart failure. There is cardiomegaly. EKG: Shows atrial sensed and ventricular paced rhythm. IMPRESSION/RECOMMENDATION: 1. Acute on chronic left ventricular systolic heart failure.: There is minimal improvement with current treatment. Would continue the patient on Lasix. Continue Toprol-XL at 50 mg p.o. daily. Also would recommend increasing the patient's Entresto. 2. Right lower lobe pneumonia: Continue antibiotics. 3. Chest x-ray lesions suspicious for amiodarone toxicity. Later we will get her high-resolution CT scan of the chest without contrast. 4. Coronary artery disease: History of IA, history of stents and history of coronary bypass graft surgery. No anginal symptoms. Continue nitrates. And aspirin 5. Paroxysmal atrial fibrillation: At present sinus rhythm. Continue Eliquis. 6. History of ventricle tachycardia, on amiodarone, and history of AICD placement. 7. Mixed ischemic and dilated cardiomyopathy. Patient is on beta-blockers and Entresto. 8. History of AICD placement. No recent firing of AICD. 9. Chronic obstructive pulmonary disease: Continue respiratory treatments and oxygen and BiPAP. 10. History of obstructive sleep apnea: Patient encouraged to wear CPAP at home also. 11. Chronic kidney disease stage III: Avoid nephrotoxic drugs. 12. Abnormal liver function tests. We will stop the patient's Lipitor. Also amiodarone may play a part in this. Will decrease amiodarone to 200 mg p.o. daily note that the patient's thyroid function tests are normal. Later when the patient's lung and heart condition go back to baseline we will get a full PFT with DLCO. 13. Prior history of CVA: No recurrence 14. Morbid obesity. Medications reviewed. Medications stopped and medications and dosage increased. Medical decision making is of high complexity. 60 minutes spent on this patient, with more than 50% of time spent in direct patient care. Management plan discussed with the Ms. Lucia Hernandez, nurse practitioner, [facility] emergency department hospitalist provider on the case. Will follow.
[2018-07-20] MEDS: OXYCODONE-ACETAMINOPHEN 5-325 MG TABLET PO PRN ×3 (01:49→18:16)
[2018-07-20] MEDS: IPRATROPIUM/ALBUTEROL 0.5-2.5 MG/3 ML AMPUL NEB SCH ×4 (01:55→20:52)
[2018-07-20] MEDS: HEPARIN SOD (PORCINE) 5,000 UNIT/ML 1 ML SYRINGE SUBCUT SCH (05:08)
[2018-07-20 06:40] LABS: HEMATOCRIT 32.6 % (36.0-47.0); HEMOGLOBIN 10.5 g/dL (12.0-15.5); MEAN CORPUSCULAR HEMOGLOBIN 30.4 pg (27.0-33.4); MEAN CORPUSCULAR HGB CONC 32.4 g/dL (32.0-36.0); MEAN CORPUSCULAR VOLUME 94 fl (80-97); PLATELET COUNT 235 10^3/uL (150-450); RED BLOOD COUNT 3.47 10^6/uL (3.72-5.28); RED CELL DISTRIBUTION WIDTH 16.5 % (11.5-14.0); WHITE BLOOD COUNT 5.7 10^3/uL (4.0-10.5)
[2018-07-20 06:58] LABS: ANION GAP 5 (5-19); BLOOD UREA NITROGEN 23 mg/dL (7-20); CALCIUM 8.7 mg/dL (8.4-10.2); CARBON DIOXIDE 33 mmol/L (22-30); CHLORIDE 106 mmol/L (98-107); GLUCOSE 100 mg/dL (75-110); POTASSIUM 4.2 mmol/L (3.6-5.0); SODIUM 144.2 mmol/L (137-145)
[2018-07-20] MEDS: VANCOMYCIN HCL 1,500 MG in DEXTROSE 5%-WATER 250 ML IV SCH (08:01)
[2018-07-20] MEDS ORDERED: AMIODARONE HCL 200 MG TABLET PO SCH (10:00)
[2018-07-20] MEDS: BUSPIRONE HCL 10 MG TABLET PO SCH ×2 (10:55→21:05)
[2018-07-20] MEDS: METOPROLOL SUCCINATE 50 MG TAB.SR.24H PO SCH (10:55)
[2018-07-20] MEDS: ISOSORBIDE MONONITRATE 60 MG TAB.ER.24H PO SCH (10:55)
[2018-07-20] MEDS: PAROXETINE HCL 20 MG TABLET PO SCH (10:55)
[2018-07-20] MEDS: FAMOTIDINE 20 MG TABLET PO SCH ×2 (10:57→18:15)
[2018-07-20] MEDS: ASPIRIN 81 MG TABLET, CHEWABLE PO SCH (10:58)
[2018-07-20] MEDS: GUAIFENESIN 600 MG TABLET.SA PO SCH ×2 (10:58→21:05)
[2018-07-20] MEDS: APIXABAN 5 MG TABLET PO SCH ×2 (10:58→21:05)
[2018-07-20] MEDS: FUROSEMIDE 80 MG TABLET PO SCH ×2 (10:58→18:15)
[2018-07-20] MEDS: SACUBITRIL/VALSARTAN 97 MG/103 MG TABLET PO SCH ×2 (10:59→19:04)
[2018-07-20] MEDS: SALMETEROL XINAFOATE DISKUS 50 MCG/1 DOSE 28 DOSE IH SCH (11:37)
[2018-07-20] MEDS: TIOTROPIUM BROMIDE DPI 5 CAP/KIT (18 MCG/CAP) IH SCH (11:37)
[2018-07-20] MEDS: CEFEPIME 1 GM/D5W RTU 1 GM/50 ML RTUPB IV SCH ×2 (11:59→21:07)
--- NOTE | 2018-07-20 14:50 | PDOC PROGRESS REPORT ---
Subjective Progress Note for:: 07/20/18 Subjective:: FRANKI DEL ROSARIO is a 47 year old female with a past medical history of CHF with LVEF 20 to 25% and AICD, [place], CABG (2006) with subsequent coronary artery stenting, COPD, CKD 3, GERD, depression, and morbid obesity who is admitted for acute respiratory failure with hypoxia secondary to healthcare associated pneumonia and CHF exacerbation. Patient was seen on morning rounds; she was sleeping when I entered the room but woke easily when I said her name. She appeared to be euphoric, smiled broadly, and reported that she felt well enough to go home. This is despite patient remaining BiPAP dependent (desated to mid-60s this morning while on room air). She denies fever, chills, chest pain, palpitations, orthopnea, cough, abdominal pain, nausea, vomiting and diarrhea. She has no other questions or concerns at this time. Nursing reports that the patient has had odd behaviors since multiple family members visited last night. Reason For Visit: HYPOXIA, ACUTE RESPIRATORY FAILURE W HYPOXIA,CHF Physical Exam Vital Signs: Temp Pulse Resp BP Pulse Ox 97.9 F 71 16 125/73 94 07/20/18 11:20 07/20/18 14:07 07/20/18 14:07 07/20/18 11:20 07/20/18 14:07 Intake & Output 07/19/18 07/20/18 07/21/18 06:59 06:59 06:59 Intake Total 150 742 758 Output Total 520 1525 500 Balance -370 -783 258 Weight 113.9 kg 113.4 kg General appearance: PRESENT: mild distress, morbidly obese, well-developed, well-nourished Head exam: PRESENT: atraumatic, normocephalic Eye exam: PRESENT: conjunctiva pink, EOMI, PERRLA. ABSENT: scleral icterus Ear exam: PRESENT: normal external ear exam Mouth exam: PRESENT: moist, tongue midline Neck exam: ABSENT: carotid bruit, JVD, lymphadenopathy, thyromegaly Respiratory exam: PRESENT: decreased breath sounds - throughout, prolonged expiratory phas, symmetrical, other - BiPAP. ABSENT: rales, rhonchi, wheezes Cardiovascular exam: PRESENT: RRR, +S1, +S2. ABSENT: diastolic murmur, rubs, systolic murmur Pulses: PRESENT: normal dorsalis pedis pul Vascular exam: PRESENT: normal capillary refill GI/Abdominal exam: PRESENT: normal bowel sounds, soft. ABSENT: distended, guarding, mass, organolmegaly, rebound, tenderness Rectal exam: PRESENT: deferred Extremities exam: PRESENT: full ROM. ABSENT: calf tenderness, clubbing, pedal edema Neurological exam: PRESENT: alert, awake, oriented to person, oriented to place, oriented to time, oriented to situation, CN II-XII grossly intact. ABSENT: motor sensory deficit Psychiatric exam: PRESENT: normal mood, unusual affect. ABSENT: homicidal ideation, suicidal ideation Focused psych exam: PRESENT: euphoric Skin exam: PRESENT: dry, intact, warm. ABSENT: cyanosis, rash Results Laboratory Results: 07/20/18 06:26 07/20/18 06:26 07/20/18 07/20/18 06:26 06:26 WBC 5.7 RBC 3.47 L Hgb 10.5 L Hct 32.6 L MCV 94 MCH 30.4 MCHC 32.4 RDW 16.5 H Plt Count 235 Sodium 144.2 Potassium 4.2 Chloride 106 Carbon Dioxide 33 H Anion Gap 5 BUN 23 H Creatinine 1.42 H Est GFR ( Amer) 48 L Est GFR (Non-Af Amer) 40 L Glucose 100 Calcium 8.7 07/18/18 05:30 Troponin I 0.026 NT-Pro-B Natriuret Pep 4670 H Impressions: Chest X-Ray 07/18/18 05:26 IMPRESSION: Worsening right basilar pneumonia. Assessment and Plan - Diagnosis (1) Healthcare-associated pneumonia Is this a current diagnosis for this admission?: Yes Plan: Improved; tachypnea and tachycardia are decreased; now able to come off BiPAP for meals without discomfort. Patient presented with worsening dyspnea and chest x-ray that demonstrates worsening right lower lobe consolidation. She was noted to have a low-grade temperature of 99.1, normal heart rate, stable blood pressures (improved after resuming home medication regiment), tachypnea and hypoxia requiring BiPAP support. Blood cultures are negative at 48 hours. Sputum cultures are ordered; patient denies productive cough. She is admitted to [facility] on continuous cardiac telemetry. She is provided supplemental oxygen and BiPAP as needed to maintain saturations greater than 89%. She is provided scheduled and as needed nebulizer treatments. As the patient was discharged from this facility 5 weeks ago, she has been empirically placed on IV Cefepime and vancomycin for coverage of a healthcare associated pneumonia (increased risk of MRSA and Pseudomonas). Will plan on discontinuing IV antibiotics tomorrow if she remains afebrile, w/ nml WBC and negative blood cultures. Mucinex twice daily. Pulmonary toilet with incentive spirometer and flutter valve hourly when off BiPAP. (2) Acute respiratory failure with hypoxia Is this a current diagnosis for this admission?: Yes Plan: Secondary to #1. Will obtain ABG. Start continuous pulse oximetry monitoring. Evaluation and management as above. (3) Chronic systolic CHF (congestive heart failure) Is this a current diagnosis for this admission?: Yes Plan: proBNP 4670 Echocardiogram April 2018 reveals LVEF 20-25% Cardiac diet. Strict I&O's with daily weights. Cardiology is consulted; appreciate Dr. Ragsdale's assistance. Medications per Dr. Ragsdale's expertise. (4) CKD (chronic kidney disease), stage III Is this a current diagnosis for this admission?: Yes Plan: Creatinine and BUN stable; perhaps new baseline. Avoid nephrotoxic medications as able. Optimize cardiac output. Monitor daily chemistries. Consider nephrology consultation if creatinine continues to worsen (currently 1.54 with baseline of 1.2). (5) Grief reaction Is this a current diagnosis for this admission?: Yes Plan: Patient just learned that a close friend unexpectedly . Very odd affect today; possible grief reaction. Will obtain ABG and UDS (hx recreational drug use). IV Haldol x1; Vistaril 25 mg every 8 hours as needed. - Time Time Spent with patient: 25-34 minutes Medications reviewed and adjusted accordingly: Yes Anticipated discharge: Home
[2018-07-20 17:55] LABS: ARTERIAL BLOOD BASE EXCESS 6.3 mmol/L; ARTERIAL BLOOD HCO3 33.2 mmol/L (20-24); ARTERIAL BLOOD O2 SATURATION 94.2 % (94-98); ARTERIAL BLOOD PCO2 59.8 mmHg (35-45); ARTERIAL BLOOD PH 7.36 (7.35-7.45); ARTERIAL BLOOD PO2 74.9 mmHg (80-100)
[2018-07-20 17:56] LABS: ARTERIAL BLOOD FIO2 4L
[2018-07-20 18:16] LABS: URINE AMPHETAMINES SCREEN NEGATIVE; URINE BARBITURATES SCREEN NEGATIVE; URINE BENZODIAZEPINES SCREEN NEGATIVE; URINE COCAINE SCREEN NEGATIVE; URINE METHADONE SCREEN NEGATIVE; URINE PHENCYCLIDINE SCREEN NEGATIVE
[2018-07-20 18:23] LABS: URINE MARIJUANA (THC) SCREEN UNCONFIRMED POSITIVE
--- NOTE | 2018-07-20 19:18 | RADIOLOGY REPORT (SQ) ---
EXAM DESCRIPTION: CT CHEST WITHOUT COMPLETED DATE/TIME: 07/20/2018 6:49 pm REASON FOR STUDY: SOB.Assess Amiodarone toxicity(Hi-Res) COMPARISON: Chest radiograph TECHNIQUE: Prone and supine high resolution technique imaging performed through the lungs windowed f or lung windows. Additional focused imaging through the levels of the aortic arch, bruna and diaphr agm. Limited evaluation of the mediastinum. All CT scanners at this facility use dose modulation, iterative reconstruction, and/or weight based d osing when appropriate to reduce radiation dose to as low as reasonably achievable (ALARA). [facility]: Dose Right [facility]: CareDose [facility]: Dose Right [facility]: Teradose 4D [facility]: [email or web address] RADIATION DOSE: CT Rad equipment meets quality standard of care and radiation dose reduction techniq ues were employed. CTDIvol: 4.6 mGy. DLP: 343 mGy-cm. mGy. LIMITATIONS: None. FINDINGS: LUNGS AND PLEURA: Diffuse ground-glass opacities. No air trapping. No increased density. No effusions. LIMITED MEDIASTINUM: No masses. BONES: No significant findings. OTHER: No other significant finding. IMPRESSION: Parenchymal findings are compatible with the clinical suspicion of Amiodarone toxicity. TECHNICAL DOCUMENTATION: JOB ID: [id number] Quality ID # [id number]: Final reports with documentation of one or more dose reduction techniques (e.g., Au tomated exposure control, adjustment of the mA and/or kV according to patient size, use of iterative reconstruction technique) 2010 [employer]- All Rights Reserved Reading location - IP/workstation name: [email or web address]
[2018-07-20] MEDS: MELATONIN 1 MG TABLET PO SCH (21:05)
[2018-07-20] MEDS ORDERED: VANCOMYCIN HCL 1,000 MG in DEXTROSE 5%-WATER 250 ML IV SCH (22:00)
[2018-07-20] MEDS ORDERED: PREDNISONE 10 MG TABLET PO ONE (22:15)
[2018-07-21] MEDS: IPRATROPIUM/ALBUTEROL 0.5-2.5 MG/3 ML AMPUL NEB SCH ×4 (02:45→20:20)
[2018-07-21 04:56] LABS: HEMATOCRIT 32.7 % (36.0-47.0); HEMOGLOBIN 10.6 g/dL (12.0-15.5); MEAN CORPUSCULAR HEMOGLOBIN 30.3 pg (27.0-33.4); MEAN CORPUSCULAR HGB CONC 32.3 g/dL (32.0-36.0); MEAN CORPUSCULAR VOLUME 94 fl (80-97); PLATELET COUNT 262 10^3/uL (150-450); RED BLOOD COUNT 3.49 10^6/uL (3.72-5.28); RED CELL DISTRIBUTION WIDTH 16.8 % (11.5-14.0); WHITE BLOOD COUNT 6.6 10^3/uL (4.0-10.5)
[2018-07-21 05:15] LABS: ANION GAP 8 (5-19); BLOOD UREA NITROGEN 24 mg/dL (7-20); CALCIUM 8.8 mg/dL (8.4-10.2); CARBON DIOXIDE 33 mmol/L (22-30); CHLORIDE 102 mmol/L (98-107); GLUCOSE 145 mg/dL (75-110); POTASSIUM 4.7 mmol/L (3.6-5.0); SODIUM 142.9 mmol/L (137-145)
[2018-07-21] MEDS: PREDNISONE 20 MG TABLET PO SCH ×3 (09:33→22:31)
[2018-07-21] MEDS: SACUBITRIL/VALSARTAN 97 MG/103 MG TABLET PO SCH ×2 (09:35→22:32)
[2018-07-21] MEDS: APIXABAN 5 MG TABLET PO SCH ×2 (09:35→22:33)
[2018-07-21] MEDS: FAMOTIDINE 20 MG TABLET PO SCH ×2 (09:35→17:06)
[2018-07-21] MEDS: METOPROLOL SUCCINATE 50 MG TAB.SR.24H PO SCH (09:36)
[2018-07-21] MEDS: ASPIRIN 81 MG TABLET, CHEWABLE PO SCH (09:36)
[2018-07-21] MEDS: BUSPIRONE HCL 10 MG TABLET PO SCH ×2 (09:36→22:33)
[2018-07-21] MEDS: FUROSEMIDE 80 MG TABLET PO SCH ×2 (09:36→17:06)
[2018-07-21] MEDS: PAROXETINE HCL 20 MG TABLET PO SCH (09:36)
[2018-07-21] MEDS: GUAIFENESIN 600 MG TABLET.SA PO SCH ×2 (09:36→22:32)
[2018-07-21] MEDS: ISOSORBIDE MONONITRATE 60 MG TAB.ER.24H PO SCH (09:36)
[2018-07-21] MEDS: OXYCODONE-ACETAMINOPHEN 5-325 MG TABLET PO PRN ×2 (11:30→20:28)
--- NOTE | 2018-07-21 12:29 | PDOC PROGRESS REPORT ---
Subjective Progress Note for:: 07/21/18 Subjective:: FRANKI DEL ROSARIO is a 47 year old female with a past medical history of CHF with LVEF 20 to 25% and AICD, [place], CABG (2006) with subsequent coronary artery stenting, COPD, CKD 3, GERD, depression, and morbid obesity who is admitted for acute respiratory failure with hypoxia secondary to healthcare associated pneumonia and CHF exacerbation. Patient was seen on morning rounds; she was sfound sitting up to the edge of the bed comfortably on supplemental oxygen via NC at 4lpm (uses 2lpm at home). She reports that she is feeling much better today is requesting to be discharged to home. She denies fever, chills, chest pain, palpitations, orthopnea, cough, abdominal pain, nausea, vomiting and diarrhea. She has no other questions or concerns at this time. No concerns per nursing. Reason For Visit: HYPOXIA, ACUTE RESPIRATORY FAILURE W HYPOXIA,CHF Physical Exam Vital Signs: Temp Pulse Resp BP Pulse Ox 98.4 F 63 16 126/77 H 94 07/21/18 07:29 07/21/18 08:41 07/21/18 08:41 07/21/18 07:29 07/21/18 08:41 Pulse Oximeter Continuous Start: 07/20/18 14:36 Freq: RTQ4 Status: Active Protocol: Document 07/21/18 08:41 [facility] (Rec: 07/21/18 10:01 [facility] [id number]) Pulse Oximetry Assessment Oxygen Saturation (92-100) 94 Oxygen Flow Rate (L/min) 4 Oxygen Delivery Method Nasal Cannula Equipment Usage Equipment in Use Continuous SpO2 Machine # 2 Intake & Output 07/20/18 07/21/18 07/22/18 06:59 06:59 06:59 Intake Total 742 2080 Output Total 1525 3500 Balance -783 -1420 Weight 113.4 kg 114.4 kg General appearance: PRESENT: no acute distress, morbidly obese, well-developed, well-nourished Head exam: PRESENT: atraumatic, normocephalic Eye exam: PRESENT: conjunctiva pink, EOMI, PERRLA. ABSENT: scleral icterus Ear exam: PRESENT: normal external ear exam Mouth exam: PRESENT: moist, tongue midline Neck exam: ABSENT: carotid bruit, JVD, lymphadenopathy, thyromegaly Respiratory exam: PRESENT: decreased breath sounds, prolonged expiratory phas, symmetrical, unlabored. ABSENT: rales, rhonchi, wheezes Cardiovascular exam: PRESENT: RRR, +S1, +S2. ABSENT: diastolic murmur, rubs, systolic murmur Pulses: PRESENT: normal dorsalis pedis pul Vascular exam: PRESENT: normal capillary refill GI/Abdominal exam: PRESENT: normal bowel sounds, soft. ABSENT: distended, guarding, mass, organolmegaly, rebound, tenderness Rectal exam: PRESENT: deferred Extremities exam: PRESENT: full ROM. ABSENT: calf tenderness, clubbing, pedal edema Neurological exam: PRESENT: alert, awake, oriented to person, oriented to place, oriented to time, oriented to situation, CN II-XII grossly intact. ABSENT: motor sensory deficit Psychiatric exam: PRESENT: appropriate affect, normal mood. ABSENT: homicidal ideation, suicidal ideation Skin exam: PRESENT: dry, intact, warm. ABSENT: cyanosis, rash Results Laboratory Results: 07/21/18 04:15 07/21/18 04:15 07/20/18 07/21/18 07/21/18 17:30 04:15 04:15 WBC 6.6 RBC 3.49 L Hgb 10.6 L Hct 32.7 L MCV 94 MCH 30.3 MCHC 32.3 RDW 16.8 H Plt Count 262 Carbonic Acid 1.80 H HCO3/H2CO3 Ratio 18:1 ABG pH 7.36 ABG pCO2 59.8 H ABG pO2 74.9 L ABG HCO3 33.2 H ABG O2 Saturation 94.2 ABG Base Excess 6.3 FiO2 4L Sodium 142.9 Potassium 4.7 Chloride 102 Carbon Dioxide 33 H Anion Gap 8 BUN 24 H Creatinine 1.42 H Est GFR ( Amer) 48 L Est GFR (Non-Af Amer) 40 L Glucose 145 H Calcium 8.8 07/18/18 05:30 Troponin I 0.026 NT-Pro-B Natriuret Pep 4670 H Impressions: Chest X-Ray 07/18/18 05:26 IMPRESSION: Worsening right basilar pneumonia. Chest CT 07/20/18 00:00 IMPRESSION: Parenchymal findings are compatible with the clinical suspicion of Amiodarone toxicity. Assessment and Plan - Diagnosis (1) Healthcare-associated pneumonia Is this a current diagnosis for this admission?: Yes Plan: Improved; tachypnea and tachycardia are decreased; now able to come off BiPAP for meals without discomfort. Patient presented with worsening dyspnea and chest x-ray that demonstrates worsening right lower lobe consolidation. She was noted to have a low-grade temperature of 99.1, normal heart rate, stable blood pressures (improved after resuming home medication regiment), tachypnea and hypoxia requiring BiPAP support. Blood cultures are negative at 72 hours. Sputum cultures are ordered; patient denies productive cough. She is admitted to [facility] on continuous cardiac telemetry. She is provided supplemental oxygen and BiPAP as needed to maintain saturations greater than 89%. She is provided scheduled and as needed nebulizer treatments. IV antibiotics are discontinued as she remains afebrile, w/ nml WBC, and negative blood cultures and no cough. Received 3 days of Vanc and Cefepime. Mucinex twice daily. Steroids per cardiology. Pulmonary toilet with incentive spirometer and flutter valve hourly when off BiPAP. (2) Acute respiratory failure with hypoxia Is this a current diagnosis for this admission?: Yes Plan: Secondary to HAP, CHF, and amiodarone toxicity. Continuous pulse oximetry monitoring. Evaluation and management as above. (3) Chronic systolic CHF (congestive heart failure) Is this a current diagnosis for this admission?: Yes Plan: proBNP 4670 Echocardiogram April 2018 reveals LVEF 20-25% Cardiac diet. Strict I&O's with daily weights. Cardiology is consulted; appreciate Dr. Ragsdale's assistance. Medications per Dr. Ragsdale's expertise. (4) CKD (chronic kidney disease), stage III Is this a current diagnosis for this admission?: Yes Plan: Creatinine and BUN stable; perhaps new baseline. Avoid nephrotoxic medications as able. Optimize cardiac output. Monitor daily chemistries. Consider nephrology consultation if creatinine continues to worsen (currently 1.42 with baseline of 1.2). (5) Grief reaction Is this a current diagnosis for this admission?: Yes Plan: Patient just learned that a close friend unexpectedly . IV Haldol x1; Vistaril 25 mg every 8 hours as needed. (6) Amiodarone toxicity Qualifiers: Encounter type: initial encounter Injury intent: accidental or unintentional Qualified Code(s): T46.2X1A - Poisoning by other antidysrhythmic drugs, accidental (unintentional), initial encounter Is this a current diagnosis for this admission?: Yes Plan: Evaluation and management per Cardiology. Spoke w/ Dr. Ragsdale today; has stopped amiodarone, started steroids, and plans for high-resolution CT. - Time Time Spent with patient: 15-24 minutes Medications reviewed and adjusted accordingly: Yes Anticipated discharge: Home
[2018-07-21] MEDS ORDERED: BISACODYL 10 MG SUPP.RECT PR PRN (17:11)
[2018-07-21] MEDS ORDERED: DOCUSATE SODIUM 100 MG CAPSULE PO PRN (17:11)
[2018-07-21] MEDS: ALPRAZOLAM 0.25 MG TABLET PO PRN (17:47)
--- NOTE | 2018-07-21 21:00 | Progress Note ---
Provider Note Provider Note: CARDIOLOGY PROGRESS NOTE by Dr. Griselda Martin on 07/20/2018. SUBJECTIVE: Patient continues to be short of breath and requires BiPAP. When she ambulated her saturation went down to 60%. On room air. Hence the patient is back on BiPAP with oxygen. She denies any chest pain or discomfort. There is intermittent wheezing present. The patient does have orthopnea. Her leg edema is much improved. There is no PND. There is no chest pain or discomfort. There is no recurrence of atrial fibrillation. There is no ventricular arrhythmia seen on the monitor. The patient did have a high-resolution CT of the chest without contrast. This confirms my suspicion that the patient has amiodarone toxicity. Hence will discontinue the amiodarone. There is no firing of the AICD. We will also treat the patient with the high-dose steroids. PHYSICAL EXAMINATION: The patient is morbidly obese. She is in mild respiratory distress, and is wearing the BiPAP. Selected Entries 07/20/18 19:54 Temperature 98.0 F Temperature Axillary Source Pulse Rate 60 Respiratory 16 Rate Blood Pressure 113/71 Blood Pressure 85 Mean BP Location Right Arm BP Position Supine O2 Sat by Pulse 98 Oximetry Oxygen Delivery Bipap Method Percent of 40 Oxygen HEAD: Is atraumatic normocephalic. EYES: Pupils are equal round regular reactive to light and accommodation. There is no conjunctival pallor. There is no scleral icterus. EARS: Tympanic membranes are intact. External auditory ca nals are clear. NOSE: Nasal mucous membranes are moist. There is no inflammation of the nasal mucous membranes. There is no deviated nasal septum. MOUTH: Mucous membranes of mouth are moist tongue is moist. There is no ulcers. There is no bleeding from the gums. THROAT: There is no redness of the oropharynx there is no exudates. SKIN: There is no skin rashes or skin lesions. There is no particular ecchymosis. NECK: Is supple. There is mild JVD present. Carotids are equal there is no bruits. There is no lymphadenopathy. There is no goiter. There is no accessory muscle respiration use. Trachea central. LUNGS: Shows bibasilar rales of CHF. There is a dry crackles scattered throughout the lung. There is also dry crackles in the right lower lobe. There is diminished air entry and prolonged expiration. On percussion there is hyperresonance. On palpation there is no chest wall tenderness. HEART: S1-S2 is heard. There is no S3 gallop. There is no S4 gallop. There is systolic murmur mitral regurgitation tricuspid regurgitation present. There is no aortic stenosis murmur. There is no aortic insufficiency murmur. There is no rub. ABDOMEN: Is obese. Nontender. There is no hepatosplenomegaly. Bowel sounds are well heard. There is no rebound guarding or rigidity. EXTREMITIES: Femorals are deep. Femorals are diminished. There is no femoral bruits. There is decreased leg pulses. There is mild pedal edema. There is no DVT or cellulitis. There is no calf tenderness. 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 There is minimal left-sided weakness PSYCHIATRIC: The patient judgment insight are intact her affect is normal. Labs- All tests 24 hr 07/20/18 07/20/18 07/20/18 06:26 06:26 17:25 WBC 5.7 RBC 3.47 L Hgb 10.5 L Hct 32.6 L MCV 94 MCH 30.4 MCHC 32.4 RDW 16.5 H Plt Count 235 Carbonic Acid HCO3/H2CO3 Ratio ABG pH ABG pCO2 ABG pO2 ABG HCO3 ABG Total CO2 ABG O2 Saturation ABG Base Excess FiO2 Sodium 144.2 Potassium 4.2 Chloride 106 Carbon Dioxide 33 H Anion Gap 5 BUN 23 H Creatinine 1.42 H Est GFR ( Amer) 48 L Est GFR (Non-Af Amer) 40 L Glucose 100 Calcium 8.7 Urine Opiates Screen NEGATIVE Urine Methadone Screen NEGATIVE Ur Barbiturates Screen NEGATIVE Ur Phencyclidine Scrn NEGATIVE Ur Amphetamines Screen NEGATIVE U Benzodiazepines Scrn NEGATIVE Urine Cocaine Screen NEGATIVE U Marijuana (THC) Screen UNCONFIRMED POSITIVE 07/20/18 17:30 WBC RBC Hgb Hct MCV MCH MCHC RDW Plt Count Carbonic Acid 1.80 H HCO3/H2CO3 Ratio 18:1 ABG pH 7.36 ABG pCO2 59.8 H ABG pO2 74.9 L ABG HCO3 33.2 H ABG Total CO2 35.0 H ABG O2 Saturation 94.2 ABG Base Excess 6.3 FiO2 4L Sodium Potassium Chloride Carbon Dioxide Anion Gap BUN Creatinine Est GFR ( Amer) Est GFR (Non-Af Amer) Glucose Calcium Urine Opiates Screen Urine Methadone Screen Ur Barbiturates Screen Ur Phencyclidine Scrn Ur Amphetamines Screen U Benzodiazepines Scrn Urine Cocaine Screen U Marijuana (THC) Screen Chest X-Ray 07/18/18 05:26 IMPRESSION: Worsening right basilar pneumonia. Chest CT 07/20/18 00:00 IMPRESSION: Parenchymal findings are compatible with the clinical suspicion of Amiodarone toxicity. IMPRESSION/RECOMMENDATION: 1. Acute on chronic left ventricular systolic heart failure.: There is minimal improvement with current treatment. Would continue the patient on Lasix. Continue Toprol-XL at 50 mg p.o. daily. Also would recommend increasing the patient's Entresto. 2. Right lower lobe pneumonia: Continue antibiotics. 3. Chest x-ray lesions suspicious for amiodarone toxicity. Chest CT with high- resolution is also consistent with findings of pulmonary toxicity. Hence will discontinue the patient's amiodarone. Start the patient on high-dose steroids. 4. Coronary artery disease: History of VT, history of stents and history of coronary bypass graft surgery. No anginal symptoms. Continue nitrates. And aspirin 5. Paroxysmal atrial fibrillation: At present sinus rhythm. Continue Eliquis. 6. History of ventricle tachycardia, on amiodarone, and history of AICD placement. 7. Mixed ischemic and dilated cardiomyopathy. Patient is on beta-blockers and Entresto. 8. History of AICD placement. No recent firing of AICD. 9. Chronic obstructive pulmonary disease: Continue respiratory treatments and oxygen and BiPAP. 10. History of obstructive sleep apnea: Patient encouraged to wear CPAP at home also. 11. Chronic kidney disease stage III: Avoid nephrotoxic drugs. 12. Abnormal liver function tests. We will stop the patient's Lipitor. Also amiodarone may play a part in this. Will decrease amiodarone to 200 mg p.o. daily note that the patient's thyroid function tests are normal. Later when the patient's lung and heart condition go back to baseline we will get a full PFT with DLCO. 13. Prior history of CVA: No recurrence 14. Morbid obesity. Occasions reviewed. Medication changed. Amiodarone discontinued. Steroids added. Medical decision making is of high complexity. 40 minutes spent on this patient with more than 50% of time spent in direct patient care. Discussed the findings with the patient. Discussed with the attending physician on the case. Will follow.
--- NOTE | 2018-07-21 21:10 | Progress Note ---
Provider Note Provider Note: CARDIOLOGY PROGRESS NOTE by Dr. Griselda Martin on 07/21/2018. SUBJECTIVE: The patient's CT scan came back as consistent with the amiodarone pulmonary toxicity. Hence amiodarone had already been discontinued. The patient was started on high-dose steroids. At present the patient has shown remarkable improvement. She is off the BiPAP and is a is on nasal cannula. She has chronic orthopnea but no PND. There is no chest pain. There is no arrhythmia seen on the monitor. There is no firing of the AICD. There is only trace pedal edema present. The patient claims her shortness of breath is remarkably improved. She does still have some dyspnea on exertion. But this is only mild and she is able to exert herself much more than what she used to in the days after admission here. There is no TIA CVA symptoms. There is no bleeding on Eliquis. PHYSICAL EXAMINATION: The patient is morbidly obese. She is well-groomed. At present in no acute distress. Selected Entries 07/21/18 11:20 Temperature 98.7 F Temperature Oral Source Pulse Rate 61 Respiratory 16 Rate Blood Pressure 108/56 L Blood Pressure 73 Mean BP Location Left Arm BP Position Sitting O2 Sat by Pulse 99 Oximetry Oxygen Flow 4.00 Rate Oxygen Delivery Nasal Cannula Method HEAD: Is atraumatic normocephalic. EYES: Pupils are equal round regular reactive to light and accommodation. There is no conjunctival pallor. There is no scleral icterus. EARS: Tympanic membranes are intact. External auditory canals are clear. NOSE: Nasal mucous membranes are moist. There is no inflammation of the nasal mucous membranes. There is no deviated nasal septum. MOUTH: Mucous membranes of mouth are moist tongue is moist. There is no ulcers. There is no bleeding from the gums. THROAT: There is no redness of the oropharynx there is no exudates. SKIN: There is no skin rashes or skin lesions. There is no particular ecchymosis. NECK: Is supple. There is mild JVD present. Carotids are equal there is no bruits. There is no lymphadenopathy. There is no goiter. There is no accessory muscle respiration use. Trachea central. LUNGS: Shows bibasilar rales of CHF. There is a dry crackles scattered throughout the lung. There is also dry crackles in the right lower lobe. There is diminished air entry and prolonged expiration. On percussion there is hyperresonance. On palpation there is no chest wall tenderness. HEART: S1-S2 is heard. There is no S3 gallop. There is no S4 gallop. There is systolic murmur mitral regurgitation tricuspid regurgitation present. There is no aortic stenosis murmur. There is no aortic insufficiency murmur. There is no rub. ABDOMEN: Is obese. Nontender. There is no hepatosplenomegaly. Bowel sounds are well heard. There is no rebound guarding or rigidity. EXTREMITIES: Femorals are deep. Femorals are diminished. There is no femoral bruits. There is decreased leg pulses. There is mild pedal edema. There is no DVT or cellulitis. There is no calf tenderness. 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 There is minimal left-sided weakness PSYCHIATRIC: The patient judgment insight are intact her affect is normal. Labs- All tests 24 hr 07/21/18 07/21/18 04:15 04:15 WBC 6.6 RBC 3.49 L Hgb 10.6 L Hct 32.7 L MCV 94 MCH 30.3 MCHC 32.3 RDW 16.8 H Plt Count 262 Sodium 142.9 Potassium 4.7 Chloride 102 Carbon Dioxide 33 H Anion Gap 8 BUN 24 H Creatinine 1.42 H Est GFR ( Amer) 48 L Est GFR (Non-Af Amer) 40 L Glucose 145 H Calcium 8.8 Chest X-Ray 07/18/18 05:26 IMPRESSION: Worsening right basilar pneumonia. Chest CT 07/20/18 00:00 IMPRESSION: Parenchymal findings are compatible with the clinical suspicion of Amiodarone toxicity. IMPRESSION/RECOMMENDATION: 1. Acute on chronic left ventricular systolic heart failure.: There is minimal improvement with current treatment. Would continue the patient on Lasix. Continue Toprol-XL at 50 mg p.o. daily. The patient's Entresto has been increased and the patient is tolerating this. 2. Right lower lobe pneumonia: Continue antibiotics. We will recheck a chest x-ray in the a.m. 3. AMIODARONE pulmonary toxicity: Chest x-ray lesions suspicious for amiodarone toxicity. Chest CT with high-resolution is also consistent with findings of pulmonary toxicity. Hence the patient's amiodarone has been stopped. Continue the patient on high-dose steroids. We will start tapering the steroids from tomorrow. Will later get a pulmonary function test with DLCO for baseline. 4. Coronary artery disease: History of SC, history of stents and history of coronary bypass graft surgery. No anginal symptoms. Continue nitrates. And aspirin 5. Paroxysmal atrial fibrillation: At present sinus rhythm. Continue Eliquis. 6. History of ventricle tachycardia, on amiodarone, and history of AICD placement. 7. Mixed ischemic and dilated cardiomyopathy. Patient is on beta-blockers and Entresto. 8. History of AICD placement. No recent firing of AICD. 9. Chronic obstructive pulmonary disease: Continue respiratory treatments and oxygen and BiPAP. 10. History of obstructive sleep apnea: Patient encouraged to wear CPAP at home also. 11. Chronic kidney disease stage III: Avoid nephrotoxic drugs. 12. Abnormal liver function tests. The patient's amiodarone was stopped we will recheck later on. 13. Prior history of CVA: No recurrence 14. Morbid obesity. Medications reviewed medications adjustment discussed with the attending physician on the case. Cardiac status is stable. Hence will sign off the case and follow the patient as an outpatient. Medical decision making is of moderate complexity. 40 minutes spent on this patient with more than 50% of time spent in direct patient care.
[2018-07-21] MEDS: MELATONIN 1 MG TABLET PO SCH (22:32)
[2018-07-22] MEDS: IPRATROPIUM/ALBUTEROL 0.5-2.5 MG/3 ML AMPUL NEB SCH ×2 (02:20→08:51)
[2018-07-22] MEDS: ALPRAZOLAM 0.25 MG TABLET PO PRN (05:40)
[2018-07-22] MEDS: PREDNISONE 20 MG TABLET PO SCH (05:40)
[2018-07-22] MEDS: APIXABAN 5 MG TABLET PO SCH (09:34)
[2018-07-22] MEDS: PAROXETINE HCL 20 MG TABLET PO SCH (09:34)
[2018-07-22] MEDS: FAMOTIDINE 20 MG TABLET PO SCH (09:35)
[2018-07-22] MEDS: GUAIFENESIN 600 MG TABLET.SA PO SCH (09:35)
[2018-07-22] MEDS: FUROSEMIDE 80 MG TABLET PO SCH (09:35)
[2018-07-22] MEDS: ASPIRIN 81 MG TABLET, CHEWABLE PO SCH (09:35)
[2018-07-22] MEDS: OXYCODONE-ACETAMINOPHEN 5-325 MG TABLET PO PRN (09:35)
[2018-07-22] MEDS: BUSPIRONE HCL 10 MG TABLET PO SCH (09:35)
[2018-07-22] MEDS: ISOSORBIDE MONONITRATE 60 MG TAB.ER.24H PO SCH (09:35)
[2018-07-22] MEDS: METOPROLOL SUCCINATE 50 MG TAB.SR.24H PO SCH (09:35)
[2018-07-22] MEDS: SACUBITRIL/VALSARTAN 97 MG/103 MG TABLET PO SCH (09:36)
[2018-07-22 10:58] VITALS: BP 122/86
--- NOTE | 2018-07-27 11:00 | PDOC DISCHARGE SUMMARY ---
General - Admit/Disc Date/PCP Admission Date/Primary Care Provider: 07/18/18 08:14 YI SANCHEZ, Discharge Date: 07/22/18 - Discharge Diagnosis (1) Healthcare-associated pneumonia Is this a current diagnosis for this admission?: Yes Summary: Ruled out; patients rapid improvement and High-Resolution most consistent with Amiodarone toxicity responsive to high dose steroids. Blood cultures are negative. Sputum cultures are ordered; patient denies productive cough. She was admitted to [facility] on continuous cardiac telemetry and provided supplemental oxygen and BiPAP as needed to maintain saturations greater than 89% with scheduled and as needed nebulizer treatments. SHe was empirically placed on IV Vancomycin and Cefepime which ertr discontinued at 3 Days she remained afebrile, w/ nml WBC, and negative blood cultures and no cough. She was provided steroids per cardiology; see below. Continue Pulmonary toilet with incentive spirometer and flutter valve post discharge. (2) Acute respiratory failure with hypoxia Is this a current diagnosis for this admission?: Yes Summary: Resolved; now at baseline. Patient is maintaining oxygen saturations while ambulatory on her home dose supplemental oxygen via NC at 2 lpm. Secondary to CHF and amiodarone toxicity. Pneumonia has been ruled out. Evaluation and management as above. (3) Chronic systolic CHF (congestive heart failure) Is this a current diagnosis for this admission?: Yes Summary: proBNP 4670 Echocardiogram April 2018 reveals LVEF 20-25% Patient was placed on a Cardiac diet with strict I&O's with daily weights. Cardiology was consulted; medications were adjusted per Dr. Ragsdale's expertise. Amiodarone has been discontinued, Entresto has been increased. Continue home dose Toprol XL, statin, and aspirin therapy. (4) CKD (chronic kidney disease), stage III Is this a current diagnosis for this admission?: Yes Summary: Creatinine and BUN stable; perhaps new baseline. Cr 1.42 Recommend avoiding nephrotoxic medications as able and optimizing cardiac output. Consider outpatient nephrology referral. (5) Grief reaction Is this a current diagnosis for this admission?: Yes Summary: Patient learned that a close friend unexpectedly while admitted. She was provided IV Haldol x1 for acute grief/panic. Xanax prn while admitted. Continue home dose BuSpar at discharge. (6) Amiodarone toxicity Is this a current diagnosis for this admission?: Yes Summary: Evaluation and management per Cardiology. Spoke w/ Dr. Ragsdale today; approved for discharge with long prednisone taper and follow up appointment within 1 week. Amiodarone has been discontinued. Remaining medications as above. - Additional Information Resuscitation Status: Full Code Discharge Diet: Cardiac Discharge Activity: Activity As Tolerated, Balance Activity w/Rest, Weigh Daily Prescriptions: Prednisone [Deltasone 20 mg Tablet] 30 mg PO ASDIR PRN #35 tablet PRN Reason: Sacubitril/Valsartan [Entresto 97 mg/103 mg Tablet] 1 tab PO Q12 #30 tablet Home Medications: Apixaban [Eliquis 5 mg Tablet] 5 mg PO Q12 05/18/18 Buspirone HCl [Buspar 10 mg Tablet] 10 mg PO Q12 05/18/18 Famotidine [Pepcid 40 mg Tablet] 40 mg PO BID 05/18/18 Isosorbide Mononitrate [Imdur 60 mg Tablet.er] 60 mg PO DAILY 05/18/18 Melatonin [Melatonin 1 mg Tablet] 1 mg PO QHS 05/18/18 Metoprolol Succinate [Toprol Xl 50 mg Tab.sr] 50 mg PO DAILY 05/18/18 Paroxetine HCl [Paxil 20 mg Tablet] 20 mg PO DAILY 05/18/18 Furosemide [Lasix 80 mg Tablet] 80 mg PO BID 30 Days #60 tablet 05/19/18 Aspirin [Aspirin 81 mg Chewable Tablet] 81 mg PO DAILY 07/09/18 Salmeterol Xinafoate [Serevent Diskus 50 Mcg/Dose 28 Dose/Diskus] 50 mcg IH Q12 #1 disk 07/12/18 Tiotropium [place] [Spiriva Handihaler 5 Cap/Kit (18 Mcg/Cap)] 1 cap IH DAILY #1 kit 07/12/18 Acetaminophen [Tylenol 325 mg Tablet] 650 mg PO Q4HP PRN tablet 07/22/18 Prednisone [Deltasone 20 mg Tablet] 30 mg PO ASDIR PRN #35 tablet 07/22/18 Sacubitril/Valsartan [Entresto 97 mg/103 mg Tablet] 1 tab PO Q12 #30 tablet 07/22/18 History of Present Illness History of Present Illness: FRANKI DEL ROSARIO is a 47 year old female with a past medical history of CHF with LVEF 20 to 25% and AICD, MT, CABG (2006) with subsequent coronary artery stenting, COPD, CKD 3, GERD, depression, and morbid obesity who presented to the emergency department today with 3 days of progressively worsening dyspnea, orthopnea, and generalized fatigue. Evaluation in the emergency department found hypertension (163/113), tachypnea (low 20s), hypoxia on room air (90%; not home O2 dependent), anemia (hemoglobin 11.4; improved from previous), acceptable ABG, CKD 4 (creatinine of 1.54 with baseline of 1.2), and elevated proBNP (4670 up from 594 one week ago). EKG demonstrated atrial sensed ventricularly paced rhythm and chest x-ray demonstrated a worsening right basilar pneumonia. She is empirically placed on IV vancomycin and cefepime; referred to the hospitalist service for admission and management of healthcare associated pneumonia. Physical Exam Vital Signs: Temp Pulse Resp BP Pulse Ox 97.7 F 69 18 122/86 H 96 07/22/18 10:56 07/22/18 10:56 07/22/18 10:56 07/22/18 10:56 07/22/18 10:56 Pulse Oximeter Continuous Start: 07/20/18 14:36 Freq: RTQ4 Status: Complete Protocol: Document 07/22/18 08:57 J (Rec: 07/22/18 08:57 J [id number]) Pulse Oximetry Assessment Equipment Usage Equipment Standby Continuous SpO2 Machine # 2 General appearance: PRESENT: no acute distress, morbidly obese, well-developed, well-nourished Head exam: PRESENT: atraumatic, normocephalic Eye exam: PRESENT: conjunctiva pink, EOMI, PERRLA. ABSENT: scleral icterus Ear exam: PRESENT: normal external ear exam Mouth exam: PRESENT: moist, tongue midline Neck exam: ABSENT: carotid bruit, JVD, lymphadenopathy, thyromegaly Respiratory exam: PRESENT: clear to auscultation renu, decreased breath sounds - poor inspiratory effort, prolonged expiratory phas, symmetrical, unlabored. ABSENT: rales, rhonchi, wheezes Cardiovascular exam: PRESENT: RRR. ABSENT: diastolic murmur, rubs, systolic murmur Pulses: PRESENT: normal dorsalis pedis pul Vascular exam: PRESENT: normal capillary refill GI/Abdominal exam: PRESENT: normal bowel sounds, soft. ABSENT: distended, guarding, mass, organolmegaly, rebound, tenderness Rectal exam: PRESENT: deferred Extremities exam: PRESENT: full ROM. ABSENT: calf tenderness, clubbing, pedal edema Neurological exam: PRESENT: alert, awake, oriented to person, oriented to place, oriented to time, oriented to situation, CN II-XII grossly intact. ABSENT: motor sensory deficit Psychiatric exam: PRESENT: appropriate affect, normal mood. ABSENT: homicidal ideation, suicidal ideation Skin exam: PRESENT: dry, intact, warm. ABSENT: cyanosis, rash Results Laboratory Results: 07/21/18 04:15 07/21/18 04:15 07/18/18 05:30 Troponin I 0.026 NT-Pro-B Natriuret Pep 4670 H Impressions: Chest X-Ray 07/18/18 05:26 IMPRESSION: Worsening right basilar pneumonia. Chest CT 07/20/18 00:00 IMPRESSION: Parenchymal findings are compatible with the clinical suspicion of Amiodarone toxicity. Qualifiers - * PATIENT BEING DISCHARGED WITH ANY OF THE FOLLOWING DIAGNOSIS: No Acute Heart Failure Is this a Heart Failure Patient?: Yes Documentation of LVEF assessment?: Yes LVEF < 40%?: Yes-if yes answer questions a through e a) Discharged on ACEI?: N/A Discharged on ARNI b) Discharges on ARB?: N/A-Discharged on ARNI c) Discharged on ARNI?: Yes d) Discharged on evidence-based Beta rip(carvedilol, sustained release metoprolol succinate, or bisoprolol)?: Yes e) For LVEF <35%, discharged on Aldosterone antagonist?: No-document contraincations - medications per cardiology 3. Anticoagulant therapy for permanect/persistent/paraoxysmal Afib or Aflutter: Yes Follow-up Appointment scheduled within 7 days?: Yes Plan Discharge Plan: Follow up with Dr. Ragsdale within 1-2 weeks. Follow up with PCP within 1 week. Take your medications as prescribed. Use oxygen continuously; this is NOT an as needed medication. Weight daily; report weight gain >2lbs overnight. Eat a low sodium diet. STOP smoking. Return to the emergency department for concerning symptoms. Time Spent: Greater than 30 Minutes
== END 2018-07-22 11:24 | disposition home health service (06) | DRG 189 ==
LOC: ER 05:10 → EH 08:14 → 3N 16:05
PROVIDERS: ADMIT Internal Medicine; ATTEND Internal Medicine
DX: J96.01 Acute respiratory failure with hypoxia (principal); I50.23 Acute on chronic systolic (congestive) heart failure; I13.0 Hypertensive heart and chronic kidney disease with heart failure and stage 1 through stage 4 chronic kidney disease, or unspecified chronic kidney disease; T46.2X5A Adverse effect of other antidysrhythmic drugs, initial encounter; N18.3 Chronic kidney disease, stage 3 (moderate); J44.9 Chronic obstructive pulmonary disease, unspecified; I48.0 Paroxysmal atrial fibrillation; E78.00 Pure hypercholesterolemia, unspecified; K21.9 Gastro-esophageal reflux disease without esophagitis; F43.20 Adjustment disorder, unspecified; E66.01 Morbid (severe) obesity due to excess calories; F41.8 Other specified anxiety disorders; I25.2 Old myocardial infarction; Y92.89 Other specified places as the place of occurrence of the external cause; Z95.1 Presence of aortocoronary bypass graft; Z95.810 Presence of automatic (implantable) cardiac defibrillator; Z79.01 Long term (current) use of anticoagulants; Z79.82 Long term (current) use of aspirin; Z79.899 Other long term (current) drug therapy
CPT/HCPCS: 36415; 36600; 71045; 71250; 80048; 80053; 80307; 82803; 83880; 84439; 84443; 84481; 84484; 85025; 85027; 87040; 93005; 93010; 94640; 94660; 94762; 96365; 96375; 99291; J0692; J1630; J1644; J1940; J2060; J2405; J2930; J3370; J3490; J7060; J7512; J7620

== ENCOUNTER 2018-07-31 11:39 | Emergency (ER) | payer MEDICAID ==
[2018-07-31 12:24] LABS: ABSOLUTE BASOPHILS # (AUTO) 0.1 10^3/uL (0.0-0.2); ABSOLUTE MONOCYTES (AUTO) 0.6 10^3/uL (0.1-1.4); ABSOLUTE NEUT (AUTO) 4.5 10^3/uL (1.7-8.2); BASOPHILS % (AUTO) 0.9 % (0-2); EOSINOPHILS % (AUTO) 0.3 % (0-6); HEMATOCRIT 31.9 % (36.0-47.0); HEMOGLOBIN 10.5 g/dL (12.0-15.5); LYMPHOCYTES % (AUTO) 16.7 % (13-45); MEAN CORPUSCULAR HEMOGLOBIN 30.2 pg (27.0-33.4); MEAN CORPUSCULAR HGB CONC 32.8 g/dL (32.0-36.0); MEAN CORPUSCULAR VOLUME 92 fl (80-97); MONOCYTES % (AUTO) 8.9 % (3-13); PLATELET COUNT 288 10^3/uL (150-450); RED BLOOD COUNT 3.47 10^6/uL (3.72-5.28); RED CELL DISTRIBUTION WIDTH 16.9 % (11.5-14.0); SEGMENTED NEUTROPHILS % (AUTO) 73.2 % (42-78); TOTAL CELLS COUNTED % (AUTO) 100 %; WHITE BLOOD COUNT 6.2 10^3/uL (4.0-10.5)
[2018-07-31 12:31] LABS: APPEARANCE,URINE SLIGHTLY-CLOUDY; BILIRUBIN,URINE NEGATIVE (NEGATIVE); COLOR,URINE STRAW; GLUCOSE, URINE NEGATIVE (NEGATIVE); KETONES,URINE NEGATIVE (NEGATIVE); LEUKOCYTE ESTERASE,URINE LARGE (NEGATIVE); NITRITE,URINE NEGATIVE (NEGATIVE); PROTEIN,URINE NEGATIVE (NEGATIVE); URINE SPECIFIC GRAVITY 1.006; UROBILINOGEN,URINE NEGATIVE mg/dL (<2.0)
[2018-07-31 12:40] LABS: ALANINE AMINOTRANSFERASE 53 U/L (9-52); ALBUMIN 3.9 g/dL (3.5-5.0); ALKALINE PHOSPHATASE 121 U/L (38-126); ANION GAP 10 (5-19); ASPARTATE AMINO TRANSFERASE 29 U/L (14-36); BILIRUBIN,DIRECT 0.3 mg/dL (0.0-0.4); BILIRUBIN,TOTAL 1.2 mg/dL (0.2-1.3); BLOOD UREA NITROGEN 19 mg/dL (7-20); CALCIUM 8.7 mg/dL (8.4-10.2); CARBON DIOXIDE 27 mmol/L (22-30); CHLORIDE 109 mmol/L (98-107); GLUCOSE 101 mg/dL (75-110); POTASSIUM 3.7 mmol/L (3.6-5.0); SODIUM 145.7 mmol/L (137-145); TOTAL PROTEIN 6.9 g/dL (6.3-8.2)
--- NOTE | 2018-07-31 13:02 | RADIOLOGY REPORT (SQ) ---
EXAM DESCRIPTION: CHEST SINGLE VIEW COMPLETED DATE/TIME: 07/31/2018 12:50 pm REASON FOR STUDY: shortness of breath COMPARISON: 07/18/2018 TECHNIQUE: Single frontal radiographic view of the chest acquired. NUMBER OF VIEWS: One view. LIMITATIONS: None. FINDINGS: LUNGS AND PLEURA: No pneumothorax. Improved aeration in both lung bases with some areas o f residual airspace opacities in the right lung base. No significant pleural effusion. MEDIASTINUM AND HILAR STRUCTURES: Stable. HEART AND VASCULAR STRUCTURES: Stable. BONES: No acute findings. HARDWARE: CABG. Cardiac defibrillator. OTHER: No other significant finding. IMPRESSION: Improved aeration in both lung bases with some areas of residual airspace opacities in t he right lung base. No significant pleural effusion. TECHNICAL DOCUMENTATION: JOB ID: [id number] [employer]- All Rights Reserved Reading location - IP/workstation name: [email or web address]
--- NOTE | 2018-07-31 13:13 | EKG REPORT ---
SEVERITY:- ABNORMAL ECG - ATRIAL-VENTRICULAR DUAL-PACED COMPLEXES : Confirmed by: Kirk Weeks MD 31-Jul-2018 13:12:48
[2018-07-31] MEDS ORDERED: IPRATROPIUM/ALBUTEROL 0.5-2.5 MG/3 ML AMPUL NEB ONE (14:56)
[2018-07-31 16:03] VITALS: BP 127/76
[2018-07-31 16:08] LABS: ARTERIAL BLOOD BASE EXCESS 3.7 mmol/L; ARTERIAL BLOOD H2CO3 1.38 mmol/L (1.05-1.35); ARTERIAL BLOOD HCO3 28.8 mmol/L (20-24); ARTERIAL BLOOD O2 SATURATION 94.5 % (94-98); ARTERIAL BLOOD PCO2 45.8 mmHg (35-45); ARTERIAL BLOOD PH 7.42 (7.35-7.45); ARTERIAL BLOOD PO2 71.5 mmHg (80-100); ARTERIAL BLOOD TOTAL CO2 30.2 mmol/L (21-25)
[2018-07-31 16:10] LABS: ARTERIAL BLOOD FIO2 32%
--- NOTE | 2018-07-31 16:26 | ER Document Report ---
Addendum entered and electronically signed by JA MATA DO 07/31/18 16:32: Course - Vital Signs Vital signs: Temp Pulse Resp BP Pulse Ox 98.1 F 60 25 H 127/76 H 98 07/31/18 11:53 07/31/18 11:53 07/31/18 16:01 07/31/18 16:01 07/31/18 16:01 - Laboratory Result Diagrams: 07/31/18 12:00 07/31/18 12:00 Laboratory results interpreted by me: 07/31/18 07/31/18 07/31/18 12:00 12:00 12:00 RBC 3.47 L Hgb 10.5 L Hct 31.9 L RDW 16.9 H Carbonic Acid ABG pCO2 ABG pO2 ABG HCO3 ABG Total CO2 Sodium 145.7 H Chloride 109 H Creatinine 1.48 H Est GFR ( Amer) 46 L Est GFR (Non-Af Amer) 38 L ALT 53 H NT-Pro-B Natriuret Pep 2190 H Urine Blood Ur Leukocyte Esterase 07/31/18 07/31/18 12:00 15:50 RBC Hgb Hct RDW Carbonic Acid 1.38 H ABG pCO2 45.8 H ABG pO2 71.5 L ABG HCO3 28.8 H ABG Total CO2 30.2 H Sodium Chloride Creatinine Est GFR ( Amer) Est GFR (Non-Af Amer) ALT NT-Pro-B Natriuret Pep Urine Blood SMALL H Ur Leukocyte Esterase LARGE H - EKG Interpretation by Me Additional EKG results interpreted by me: EKG demonstrates atrial ventricular dual paced rhythm, with a ventricular rate of 59 bpm, left axis deviation, QTC 559 ms, no ST elevation, this is compared with prior EKG from 07/18/2018, without significant change. Original Note: ED General - General Chief Complaint: Shortness Of Breath Stated Complaint: DIFFICULTY BREATHING Time Seen by Provider: 07/31/18 14:23 Primary Care Provider: YI SANCHEZ DO [Primary Care Provider] - Follow up in 3-5 days Notes: Patient is a 47-year-old female with history of CHF and COPD that presents to the emergency department for chief complaint of shortness of breath, and fatigue. Patient apparently had a court appointment today, and she ran out of the house but she took all of her medications prior to that that she takes on a regular basis, she states she has 11 medications including Xanax, she took them on an empty stomach which she usually does not do, and then she grabbed the wrong oxygen bottle ran out of her oxygen while she was at the court house. She states that she is rather tired right now, feels somewhat short of breath, but she thinks is because she took all those medications. She had some wheezing recently, denies any cough, fevers, chills, chest pain, nausea, vomiting or diarrhea. No other complaints at this time. Past Medical History: Anxiety, CHF, COPD, hyper lipidemia Past Surgical History: Defibrillator placement Social History: Denies current tobacco, alcohol or drug use. Family History: Reviewed and noncontributory for presenting illness Allergies: Reviewed, see documented allergy list. REVIEW OF SYSTEMS: Other than noted above, the 12 point review of systems was reviewed with the patient and were negative, all pertinent findings are included in the HPI. PHYSICAL EXAMINATION: Vital signs reviewed, nursing noted reviewed. GENERAL: Obese female, somnolent, but easily arousable. HEAD: Atraumatic, normocephalic. EYES: Eyes appear normal, extraocular movements intact, sclera anicteric, conjunctiva are normal. ENT: nares patent, oropharynx clear without exudates. Moist mucous membranes. NECK: Normal range of motion, supple without lymphadenopathy LUNGS: Diffuse wheezing noted throughout all lung pena, but no acute respiratory distress HEART: Regular rate and rhythm without murmurs ABDOMEN: Soft, nontender, normoactive bowel sounds. No rebound, guarding, or rigidity. No masses appreciated. EXTREMITIES: Nontender, good range of motion, no pitting or edema. NEUROLOGICAL: No focal neurological deficits. Moves all extremities spontaneously Motor and sensory grossly intact on exam. PSYCH: Normal mood, normal affect. SKIN: Warm, Dry, normal turgor, no rashes or lesions noted on exposed skin TRAVEL OUTSIDE OF THE [place] IN LAST 30 DAYS: No - Related Data Allergies/Adverse Reactions: acetaminophen [From Darvocet-N] Allergy (Verified 07/31/18 11:55) egg [Egg] Allergy (Verified 07/31/18 11:55) hydrocodone [From Vicodin] Allergy (Verified 07/31/18 11:55) propoxyphene [From Darvocet-N] Allergy (Verified 07/31/18 11:55) diphenhydramine HCl [From Benadryl] Adverse Reaction (Verified 07/31/18 11:55) chest pain, bigemeny rhythm Past Medical History - Social History Smoking Status: Unknown if Ever Smoked Family History: Reviewed & Not Pertinent Patient has suicidal ideation: No Patient has homicidal ideation: No - Past Medical History Cardiac Medical History: Reports: Hx Congestive Heart Failure, Hx Coronary Artery Disease, Hx Heart Attack, Hx Hypercholesterolemia, Hx Hypertension Pulmonary Medical History: Reports: Hx COPD, Hx Pneumonia Denies: Hx Asthma Neurological Medical History: Denies: Hx Cerebrovascular Accident, Hx Seizures Endocrine Medical History: Denies: Hx Diabetes Mellitus Type 2, Hx Hypothyroidism Renal/ Medical History: Reports: Hx Kidney Stones, Hx Renal Insufficiency. Denies: Hx Peritoneal Dialysis GI Medical History: Reports: Hx Gastroesophageal Reflux Disease. Denies: Hx Hepatitis, Hx Hiatal Hernia, Hx Ulcer Psychiatric Medical History: Reports: Hx Anxiety, Hx Depression, Hx Schizophrenia Infectious Medical History: Denies: Hx Hepatitis Past Surgical History: Reports: Hx Cardiac Catheterization - multiple stents, Hx Cardiac Surgery - pacemaker/icd, Hx Section, Hx Coronary Artery Bypass Graft - 2006, Hx Hysterectomy, Hx Open Heart Surgery - BYPASS 2006, Hx Pacemaker - AICD, Hx Tubal Ligation. Denies: Hx Mastectomy - Immunizations Hx Diphtheria, Pertussis, Tetanus Vaccination: Yes Hx Pneumococcal Vaccination: 04/04/12 Physical Exam - Vital signs Vitals: Resp Pulse Ox 18 98 07/31/18 11:48 07/31/18 11:48 Course - Re-evaluation Re-evalutation: Patient seen and examined vital signs reviewed. Laboratory data and/or imaging were ordered as appropriate for the patient's presenting symptoms and complaint, with consideration of any critical or life threatening conditions that may be associated with their obtained history and e xam as noted above. Patient was treated with DuoNeb breathing treatments Results were reviewed when available and demonstrated baseline labs for this patient, troponin negative, ABG consistent with the patient's chronic lung disease, without exacerbation, chest x-ray negative for acute process The patient was re-evaluated and was improved, was much more alert, was ready to be discharged, stating that she feels much better. Evaluation was most consistent with dyspnea, fatigue, COPD Results were discussed with the patient at this point, after careful consideration I feel that that patient can be discharged from the emergency department, the patient was educated treatments and reasons to return to the emergency department based on their presumed diagnosis as noted above, they were advised to followup with a primary care physician in 2-3 days. Patient was agreeable to plan of care. *Note is created using voice recognition software and may contain spelling, syntax or grammatical errors. Laboratory 07/31/18 07/31/18 07/31/18 12:00 12:00 12:00 WBC 6.2 RBC 3.47 L Hgb 10.5 L Hct 31.9 L MCV 92 MCH 30.2 MCHC 32.8 RDW 16.9 H Plt Count 288 Seg Neutrophils % 73.2 Lymphocytes % 16.7 Monocytes % 8.9 Eosinophils % 0.3 Basophils % 0.9 Absolute Neutrophils 4.5 Absolute Lymphocytes 1.0 Absolute Monocytes 0.6 Absolute Eosinophils 0.0 Absolute Basophils 0.1 Carbonic Acid HCO3/H2CO3 Ratio ABG pH ABG pCO2 ABG pO2 ABG HCO3 ABG Total CO2 ABG O2 Saturation ABG Base Excess FiO2 Sodium 145.7 H Potassium 3.7 Chloride 109 H Carbon Dioxide 27 Anion Gap 10 BUN 19 Creatinine 1.48 H Est GFR ( Amer) 46 L Est GFR (Non-Af Amer) 38 L Glucose 101 Calcium 8.7 Total Bilirubin 1.2 Direct Bilirubin 0.3 Neonat Total Bilirubin Not Reportable Neonat Direct Bilirubin Not Reportable Neonat Indirect Bili Not Reportable AST 29 ALT 53 H Alkaline Phosphatase 121 Troponin I NT-Pro-B Natriuret Pep 2190 H Total Protein 6.9 Albumin 3.9 Urine Color Urine Appearance Urine pH Ur Specific [place] Urine Protein Urine Glucose (UA) Urine Ketones Urine Blood Urine Nitrite Urine Bilirubin Urine Urobilinogen Ur Leukocyte Esterase Urine WBC (Auto) Urine RBC (Auto) Urine Bacteria (Auto) Squamous Epi Cells Auto Urine Ascorbic Acid 07/31/18 07/31/18 07/31/18 12:00 12:00 15:20 WBC RBC Hgb Hct MCV MCH MCHC RDW Plt Count Seg Neutrophils % Lymphocytes % Monocytes % Eosinophils % Basophils % Absolute Neutrophils Absolute Lymphocytes Absolute Monocytes Absolute Eosinophils Absolute Basophils Carbonic Acid Cancelled HCO3/H2CO3 Ratio Cancelled ABG pH Cancelled ABG pCO2 Cancelled ABG pO2 Cancelled ABG HCO3 Cancelled ABG Total CO2 Cancelled ABG O2 Saturation Cancelled ABG Base Excess Cancelled FiO2 Cancelled Sodium Potassium Chloride Carbon Dioxide Anion Gap BUN Creatinine Est GFR ( Amer) Est GFR (Non-Af Amer) Glucose Calcium Total Bilirubin Direct Bilirubin Neonat Total Bilirubin Neonat Direct Bilirubin Neonat Indirect Bili AST ALT Alkaline Phosphatase Troponin I 0.017 NT-Pro-B Natriuret Pep Total Protein Albumin Urine Color STRAW Urine Appearance SLIGHTLY-CLOUDY Urine pH 7.0 Ur Specific [place] 1.006 Urine Protein NEGATIVE Urine Glucose (UA) NEGATIVE Urine Ketones NEGATIVE Urine Blood SMALL H Urine Nitrite NEGATIVE Urine Bilirubin NEGATIVE Urine Urobilinogen NEGATIVE Ur Leukocyte Esterase LARGE H Urine WBC (Auto) 10 Urine RBC (Auto) 25 Urine Bacteria (Auto) TRACE Squamous Epi Cells Auto 2 Urine Ascorbic Acid NEGATIVE 07/31/18 15:50 WBC RBC Hgb Hct MCV MCH MCHC RDW Plt Count Seg Neutrophils % Lymphocytes % Monocytes % Eosinophils % Basophils % Absolute Neutrophils Absolute Lymphocytes Absolute Monocytes Absolute Eosinophils Absolute Basophils Carbonic Acid 1.38 H HCO3/H2CO3 Ratio 20:1 ABG pH 7.42 ABG pCO2 45.8 H ABG pO2 71.5 L ABG HCO3 28.8 H ABG Total CO2 30.2 H ABG O2 Saturation 94.5 ABG Base Excess 3.7 FiO2 32% Sodium Potassium Chloride Carbon Dioxide Anion Gap BUN Creatinine Est GFR ( Amer) Est GFR (Non-Af Amer) Glucose Calcium Total Bilirubin Direct Bilirubin Neonat Total Bilirubin Neonat Direct Bilirubin Neonat Indirect Bili AST ALT Alkaline Phosphatase Troponin I NT-Pro-B Natriuret Pep Total Protein Albumin Urine Color Urine Appearance Urine pH Ur Specific [place] Urine Protein Urine Glucose (UA) Urine Ketones Urine Blood Urine Nitrite Urine Bilirubin Urine Urobilinogen Ur Leukocyte Esterase Urine WBC (Auto) Urine RBC (Auto) Urine Bacteria (Auto) Squamous Epi Cells Auto Urine Ascorbic Acid Chest X-Ray 07/31/18 11:57 IMPRESSION: Improved aeration in both lung bases with some areas of residual airspace opacities in the right lung base. No significant pleural effusion. - Vital Signs Vital signs: Temp Pulse Resp BP Pulse Ox 98.1 F 60 25 H 127/76 H 98 07/31/18 11:53 07/31/18 11:53 07/31/18 16:01 07/31/18 16:01 07/31/18 16:01 - Laboratory Result Diagrams: 07/31/18 12:00 07/31/18 12:00 Laboratory results interpreted by me: 07/31/18 07/31/18 07/31/18 12:00 12:00 12:00 RBC 3.47 L Hgb 10.5 L Hct 31.9 L RDW 16.9 H Carbonic Acid ABG pCO2 ABG pO2 ABG HCO3 ABG Total CO2 Sodium 145.7 H Chloride 109 H Creatinine 1.48 H Est GFR ( Amer) 46 L Est GFR (Non-Af Amer) 38 L ALT 53 H NT-Pro-B Natriuret Pep 2190 H Urine Blood Ur Leukocyte Esterase 07/31/18 07/31/18 12:00 15:50 RBC Hgb Hct RDW Carbonic Acid 1.38 H ABG pCO2 45.8 H ABG pO2 71.5 L ABG HCO3 28.8 H ABG Total CO2 30.2 H Sodium Chloride Creatinine Est GFR ( Amer) Est GFR (Non-Af Amer) ALT NT-Pro-B Natriuret Pep Urine Blood SMALL H Ur Leukocyte Esterase LARGE H Discharge - Discharge Clinical Impression: Dyspnea Qualifiers: Dyspnea type: unspecified Qualified Code(s): R06.00 - Dyspnea, unspecified COPD (chronic obstructive pulmonary disease) Qualifiers: COPD type: unspecified COPD Qualified Code(s): J44.9 - Chronic obstructive pulmonary disease, unspecified Fatigue Qualifiers: Fatigue type: unspecified Qualified Code(s): R53.83 - Other fatigue Condition: Stable Disposition: HOME, SELF-CARE Instructions: Chronic Obstructive Lung Disease ([facility]) Additional Instructions: Please continue to take all of your home medications, as previously directed and please follow-up with your primary care physician. Referrals: YI SANCHEZ DO [Primary Care Provider] - Follow up in 3-5 days
== END 2018-07-31 16:35 | disposition home or self-care (01) ==
LOC: ER 11:39
DX: J44.9 Chronic obstructive pulmonary disease, unspecified (principal); T41.5X6A Underdosing of therapeutic gases, initial encounter; Z91.138 Patient's unintentional underdosing of medication regimen for other reason; Y92.240 Courthouse as the place of occurrence of the external cause; R53.83 Other fatigue; R06.02 Shortness of breath; I25.2 Old myocardial infarction; I10 Essential (primary) hypertension; F41.9 Anxiety disorder, unspecified; Z79.899 Other long term (current) drug therapy; Z95.810 Presence of automatic (implantable) cardiac defibrillator; Z88.8 Allergy status to other drugs, medicaments and biological substances; Z88.6 Allergy status to analgesic agent; Z91.012 Allergy to eggs; I25.10 Atherosclerotic heart disease of native coronary artery without angina pectoris; Z87.01 Personal history of pneumonia (recurrent); Z95.5 Presence of coronary angioplasty implant and graft; Z95.1 Presence of aortocoronary bypass graft
CPT/HCPCS: 93005; 94640; 99285; 36415; 82803; 85025; 80053; 81001; 84484; 83880; 71045; 93010; 36600; J7620

== ENCOUNTER 2018-08-10 20:54 | Inpatient (IN) | payer MEDICAID ==
[2018-08-10] MEDS ORDERED: METHYLPREDNISOLONE INJ 125 MG/2 ML SDV ONE (20:56)
[2018-08-10] MEDS ORDERED: METHYLPREDNISOLONE INJ 125 MG/2 ML SDV IV ONE (20:56)
[2018-08-10] MEDS ORDERED: MAGNESIUM SULFATE/D5W 2 GM/200 ML RTUPB IV ONE (20:56)
[2018-08-10] MEDS ORDERED: IPRATROPIUM/ALBUTEROL 0.5-2.5 MG/3 ML AMPUL NEB ONE ×2 (20:56)
[2018-08-10] MEDS: MAGNESIUM SULFATE/D5W 1 GM/100 ML RTUPB IV SCH ×2 (21:00→21:15)
--- NOTE | 2018-08-10 21:00 | ER Document Report ---
ED General - General Stated Complaint: DIFFICULTY BREATHING Time Seen by Provider: 08/10/18 20:55 Notes: Patient is a 47-year-old female with history of CHF, COPD and CAD that presents to the emergency department for chief complaint of respiratory distress. Since 3 PM today the patient was having a hard time breathing, she was on her 4 L by nasal cannula, was found to be hypoxic by EMS, was breathing rapidly at 40 breaths a minute she was placed on CPAP, still having a hard time when she arrived to the emergency department. She states that she is been intubated 4 times was asking to be intubated, I discussed with her placing her on BiPAP which she was agreeable to. After being placed on BiPAP, the patient is able to answer some questions, she denied having any chest pain, but states that she was recently treated for pneumonia, and was finishing up antibiotics. She does smoke cigarettes, and has COPD as well, she was given 2 DuoNeb breathing treatments by EMS in addition to the CPAP. She denies any recent fever, chills, chest pain, nausea, vomiting or abdominal pain. Past Medical History: CHF, COPD, CAD Past Surgical History: CABG, AICD pacemaker Social History: Admits to smoking cigarettes, denies alcohol or drug use. Family History: Reviewed and noncontributory for presenting illness Allergies: Reviewed, see documented allergy list. REVIEW OF SYSTEMS: Other than noted above, the 12 point review of systems was reviewed with the patient and were negative, all pertinent findings are included in the HPI. PHYSICAL EXAMINATION: Vital signs reviewed, nursing noted reviewed. GENERAL: Obese female, in acute respiratory distress HEAD: Atraumatic, normocephalic. EYES: Eyes appear normal, extraocular movements intact, sclera anicteric, conjunctiva are normal. ENT: nares patent, oropharynx clear without exudates. Moist mucous membranes. NECK: Normal range of motion, supple without lymphadenopathy LUNGS: Diminished lung sounds, with diffuse wheezing throughout all lung pena, increased work of breathing and acute respiratory distress HEART: Heart rate tachycardic, regular rhythm ABDOMEN: Soft, obese, nontender, normoactive bowel sounds. No rebound, guarding, or rigidity. No masses appreciated. EXTREMITIES: Nontender, good range of motion, trace bilateral lower extremity edema NEUROLOGICAL: No focal neurological deficits. Moves all extremities spontaneously Motor and sensory grossly intact on exam. PSYCH: Patient appears anxious, in acute distress SKIN: Warm, Dry, normal turgor, no rashes or lesions noted on exposed skin TRAVEL OUTSIDE OF THE [place] IN LAST 30 DAYS: No - Related Data Allergies/Adverse Reactions: acetaminophen [From Darvocet-N] Allergy (Verified 07/31/18 11:55) egg [Egg] Allergy (Verified 07/31/18 11:55) hydrocodone [From Vicodin] Allergy (Verified 07/31/18 11:55) propoxyphene [From Darvocet-N] Allergy (Verified 07/31/18 11:55) diphenhydramine HCl [From Benadryl] Adverse Reaction (Verified 07/31/18 11:55) chest pain, bigemeny rhythm Past Medical History - Social History Smoking Status: Current Every Day Smoker Family History: Reviewed & Not Pertinent - Past Medical History Cardiac Medical History: Reports: Hx Congestive Heart Failure, Hx Coronary Artery Disease, Hx Heart Attack, Hx Hypercholesterolemia, Hx Hypertension Pulmonary Medical History: Reports: Hx COPD, Hx Pneumonia Denies: Hx Asthma Neurological Medical History: Denies: Hx Cerebrovascular Accident, Hx Seizures Endocrine Medical History: Denies: Hx Diabetes Mellitus Type 2, Hx Hypothyroidism Renal/ Medical History: Reports: Hx Kidney Stones, Hx Renal Insufficiency. Denies: Hx Peritoneal Dialysis GI Medical History: Reports: Hx Gastroesophageal Reflux Disease. Denies: Hx Hepatitis, Hx Hiatal Hernia, Hx Ulcer Psychiatric Medical History: Reports: Hx Anxiety, Hx Depression, Hx Schizophrenia Infectious Medical History: Denies: Hx Hepatitis Past Surgical History: Reports: Hx Cardiac Catheterization - multiple stents, Hx Cardiac Surgery - pacemaker/icd, Hx Section, Hx Coronary Artery Bypass Graft - 2006, Hx Hysterectomy, Hx Open Heart Surgery - BYPASS 2006, Hx Pacemaker - AICD, Hx Tubal Ligation. Denies: Hx Mastectomy - Immunizations Hx Diphtheria, Pertussis, Tetanus Vaccination: Yes Hx Pneumococcal Vaccination: 04/04/12 Physical Exam - Vital signs Vitals: Resp BP Pulse Ox 25 H 192/131 H 98 08/10/18 20:56 08/10/18 20:56 08/10/18 20:56 Course - Re-evaluation Re-evalutation: Patient seen and examined vital signs reviewed. Laboratory data and imaging were ordered as appropriate for the patient's presenting symptoms and complaint, with consideration of any critical or life threatening conditions that may be associated with their obtained history and exam as noted above. Patient was treated with chemotherapy, patient was improving, she is started on IV nitroglycerin, given DuoNeb breathing treatments, Solu-Medrol, and IV magnesium. Results were reviewed when available and demonstrated chest x-ray concerning for possible infiltrate, although I feel this is most likely pulmonary edema, will cover with vancomycin pain, given recent admission for pneumonia, blood work demonstrated elevated BNP, she is to be higher than this patient's baseline, troponin was around her baseline, renal function at baseline as well. The patient was re-evaluated and was much improved, stable on the BiPAP Evaluation was most consistent with acute on chronic CHF exacerbation, COPD exacerbation, acute on chronic respiratory failure Results were discussed with the patient at this point after careful consideration I feel that that patient should be admitted to the hospital. This was discussed with the patient that it is in the best interest for their care to be admitted for further evaluation and management. Patient agreed with this plan of care. A call was placed to the admitted physician, Dr. Downing who graciously accepted the patient onto their service. *Note is created using voice recognition software and may contain spelling, syntax or grammatical errors. Laboratory 08/10/18 08/10/18 08/10/18 20:57 20:57 20:57 WBC 11.5 H RBC 3.71 L Hgb 11.1 L Hct 34.1 L MCV 92 MCH 29.9 MCHC 32.5 RDW 17.3 H Plt Count 374 Seg Neutrophils % 76.6 Lymphocytes % 16.5 Monocytes % 6.0 Eosinophils % 0.1 Basophils % 0.8 Absolute Neutrophils 8.8 H Absolute Lymphocytes 1.9 Absolute Monocytes 0.7 Absolute Eosinophils 0.0 Absolute Basophils 0.1 PT 18.9 H INR 1.50 Carbonic Acid HCO3/H2CO3 Ratio ABG pH ABG pCO2 ABG pO2 ABG HCO3 ABG Total CO2 ABG O2 Saturation ABG Base Excess VBG pH VBG pCO2 VBG HCO3 VBG Base Excess FiO2 Sodium 140.8 Potassium 3.7 Chloride 104 Carbon Dioxide 26 Anion Gap 11 BUN 15 Creatinine 1.40 H Est GFR ( Amer) 49 L Est GFR (Non-Af Amer) 40 L Glucose 158 H Lactic Acid Calcium 9.3 Total Bilirubin 1.7 H Direct Bilirubin 0.7 H Neonat Total Bilirubin Not Reportable Neonat Direct Bilirubin Not Reportable Neonat Indirect Bili Not Reportable AST 37 H ALT 39 Alkaline Phosphatase 142 H Troponin I NT-Pro-B Natriuret Pep Total Protein 7.2 Albumin 4.3 Urine Color Urine Appearance Urine pH Ur Specific Christopher Urine Protein Urine Glucose (UA) Urine Ketones Urine Blood Urine Nitrite Urine Bilirubin Urine Urobilinogen Ur Leukocyte Esterase Urine WBC (Auto) Urine RBC (Auto) Urine Mucus (Auto) Urine Ascorbic Acid 08/10/18 08/10/18 08/10/18 20:57 20:57 20:57 WBC RBC Hgb Hct MCV MCH MCHC RDW Plt Count Seg Neutrophils % Lymphocytes % Monocytes % Eosinophils % Basophils % Absolute Neutrophils Absolute Lymphocytes Absolute Monocytes Absolute Eosinophils Absolute Basophils PT INR Carbonic Acid HCO3/H2CO3 Ratio ABG pH ABG pCO2 ABG pO2 ABG HCO3 ABG Total CO2 ABG O2 Saturation ABG Base Excess VBG pH 7.41 VBG pCO2 43.0 VBG HCO3 26.4 VBG Base Excess 1.5 FiO2 Sodium Potassium Chloride Carbon Dioxide Anion Gap BUN Creatinine Est GFR ( Amer) Est GFR (Non-Af Amer) Glucose Lactic Acid 1.8 Calcium Total Bilirubin Direct Bilirubin Neonat Total Bilirubin Neonat Direct Bilirubin Neonat Indirect Bili AST ALT Alkaline Phosphatase Troponin I 0.023 NT-Pro-B Natriuret Pep 5080 H Total Protein Albumin Urine Color Urine Appearance Urine pH Ur Specific Christopher Urine Protein Urine Glucose (UA) Urine Ketones Urine Blood Urine Nitrite Urine Bilirubin Urine Urobilinogen Ur Leukocyte Esterase Urine WBC (Auto) Urine RBC (Auto) Urine Mucus (Auto) Urine Ascorbic Acid 08/10/18 08/10/18 21:40 22:00 WBC RBC Hgb Hct MCV MCH MCHC RDW Plt Count Seg Neutrophils % Lymphocytes % Monocytes % Eosinophils % Basophils % Absolute Neutrophils Absolute Lymphocytes Absolute Monocytes Absolute Eosinophils Absolute Basophils PT INR Carbonic Acid 1.15 HCO3/H2CO3 Ratio 22:1 ABG pH 7.44 ABG pCO2 38.3 ABG pO2 76.2 L ABG HCO3 25.4 H ABG Total CO2 26.5 H ABG O2 Saturation 95.7 ABG Base Excess 1.3 VBG pH VBG pCO2 VBG HCO3 VBG Base Excess FiO2 60% Sodium Potassium Chloride Carbon Dioxide Anion Gap BUN Creatinine Est GFR ( Amer) Est GFR (Non-Af Amer) Glucose Lactic Acid Calcium Total Bilirubin Direct Bilirubin Neonat Total Bilirubin Neonat Direct Bilirubin Neonat Indirect Bili AST ALT Alkaline Phosphatase Troponin I NT-Pro-B Natriuret Pep Total Protein Albumin Urine Color STRAW Urine Appearance CLEAR Urine pH 8.0 Ur Specific Christopher 1.005 Urine Protein NEGATIVE Urine Glucose (UA) NEGATIVE Urine Ketones NEGATIVE Urine Blood SMALL H Urine Nitrite NEGATIVE Urine Bilirubin NEGATIVE Urine Urobilinogen NEGATIVE Ur Leukocyte Esterase NEGATIVE Urine WBC (Auto) 0 Urine RBC (Auto) 4 Urine Mucus (Auto) RARE Urine Ascorbic Acid NEGATIVE Chest X-Ray 08/10/18 20:55 IMPRESSION: Abnormal opacity at the right perihilar level and right lower lung could be secondary to asymmetric pulmonary edema, infectious process is a consideration. Recommend follow-up. - Vital Signs Vital signs: Temp Pulse Resp BP Pulse Ox 98.3 F 64 22 H 151/72 H 93 08/11/18 01:28 08/11/18 01:42 08/11/18 01:28 08/11/18 01:28 08/11/18 01:28 - Laboratory Result Diagrams: 08/11/18 03:10 08/11/18 03:10 Laboratory results interpreted by me: 08/10/18 08/10/18 08/10/18 20:57 20:57 20:57 WBC 11.5 H RBC 3.71 L Hgb 11.1 L Hct 34.1 L RDW 17.3 H Absolute Neutrophils 8.8 H PT 18.9 H ABG pO2 ABG HCO3 ABG Total CO2 Creatinine 1.40 H Est GFR ( Amer) 49 L Est GFR (Non-Af Amer) 40 L Glucose 158 H Total Bilirubin 1.7 H Direct Bilirubin 0.7 H AST 37 H Alkaline Phosphatase 142 H NT-Pro-B Natriuret Pep Urine Blood 08/10/18 08/10/18 08/10/18 20:57 21:40 22:00 WBC RBC Hgb Hct RDW Absolute Neutrophils PT ABG pO2 76.2 L ABG HCO3 25.4 H ABG Total CO2 26.5 H Creatinine Est GFR ( Amer) Est GFR (Non-Af Amer) Glucose Total Bilirubin Direct Bilirubin AST Alkaline Phosphatase NT-Pro-B Natriuret Pep 5080 H Urine Blood SMALL H - EKG Interpretation by Me Additional EKG results interpreted by me: EKG demonstrates atrial sensed ventricular paced rhythm, with a ventricular rate of 70 bpm, for left axis deviation, QTC 531 ms, T wave inversions of leads I and aVL, this is compared with prior EKG from 07/31/2018, without significant change. Critical Care Note - Critical Care Note Total time excluding time spent on procedures (mins): 40 Comments: Critical care time 40 minutes exclusive from separate billable procedures for a patient requiring complex medical decision making, and high potential for clinical deterioration. Patient with acute respiratory distress, pulmonary edema, requiring bipap therapy, and IV nitroglycerin. Time spent obtaining history from patient or surrogate, discussions with consultants, development of treatment plan with patient or surrogate, evaluation of patient's response to treatment, examination of patient, ordering and performing treatments and interventions, ordering and review of laboratory studies, re-evaluation of patient's condition, ordering and review of radiographic studies and review of old charts Discharge - Discharge Clinical Impression: Acute on chronic systolic congestive heart failure, NYHA class 2, Acute respiratory failure with hypoxia Pulmonary edema Qualifiers: Chronicity: acute Qualified Code(s): J81.0 - Acute pulmonary edema Condition: Stable Disposition: ADMITTED INPATIENT Admitting Provider: Chang (Hospitalist) Unit Admitted: [facility]
[2018-08-10] MEDS ORDERED: FUROSEMIDE INJ/PF 40 MG/4 ML SDV IV ONE (21:04)
[2018-08-10] MEDS ORDERED: NITROGLYCERIN/D5W 50 MG/250 ML RTUINJ IV PRN (21:04)
[2018-08-10 21:16] LABS: ABSOLUTE BASOPHILS # (AUTO) 0.1 10^3/uL (0.0-0.2); ABSOLUTE LYMPHOCYTES (AUTO) 1.9 10^3/uL (0.5-4.7); ABSOLUTE MONOCYTES (AUTO) 0.7 10^3/uL (0.1-1.4); ABSOLUTE NEUT (AUTO) 8.8 10^3/uL (1.7-8.2); BASOPHILS % (AUTO) 0.8 % (0-2); EOSINOPHILS % (AUTO) 0.1 % (0-6); HEMATOCRIT 34.1 % (36.0-47.0); HEMOGLOBIN 11.1 g/dL (12.0-15.5); LYMPHOCYTES % (AUTO) 16.5 % (13-45); MEAN CORPUSCULAR HEMOGLOBIN 29.9 pg (27.0-33.4); MEAN CORPUSCULAR HGB CONC 32.5 g/dL (32.0-36.0); MEAN CORPUSCULAR VOLUME 92 fl (80-97); PLATELET COUNT 374 10^3/uL (150-450); RED BLOOD COUNT 3.71 10^6/uL (3.72-5.28); RED CELL DISTRIBUTION WIDTH 17.3 % (11.5-14.0); SEGMENTED NEUTROPHILS % (AUTO) 76.6 % (42-78); TOTAL CELLS COUNTED % (AUTO) 100 %; WHITE BLOOD COUNT 11.5 10^3/uL (4.0-10.5)
[2018-08-10 21:17] LABS: VENOUS BLOOD BASE EXCESS 1.5 mmol/L; VENOUS BLOOD HCO3 26.4 mmol/L (20-32); VENOUS BLOOD PH 7.41 (7.30-7.42)
[2018-08-10 21:22] LABS: PROTHROMBIN TIME 18.9 SEC (11.4-15.4)
--- NOTE | 2018-08-10 21:36 | RADIOLOGY REPORT (SQ) ---
EXAM DESCRIPTION: XR CHEST 1 VIEW COMPLETED DATE/TME: 08/10/2018 20:55 CLINICAL HISTORY: Shortness of breath COMPARISON: July 31, 2018 FINDINGS: Cardiac silhouette is enlarged, unchanged compared with the prior exam. Patient is status post median sternotomy. Pacer leads project over the heart. Abnormal opacity at the right perihilar level and right lower lung could be secondary to asymmetric pulmonary edema, infectious process is a consideration. There is no pneumothorax. IMPRESSION: Abnormal opacity at the right perihilar level and right lower lung could be secondary to asymmetric pulmonary edema, infectious process is a consideration. Recommend follow-up.
[2018-08-10 21:40] LABS: ALANINE AMINOTRANSFERASE 39 U/L (9-52); ALBUMIN 4.3 g/dL (3.5-5.0); ALKALINE PHOSPHATASE 142 U/L (38-126); ANION GAP 11 (5-19); ASPARTATE AMINO TRANSFERASE 37 U/L (14-36); BILIRUBIN,DIRECT 0.7 mg/dL (0.0-0.4); BILIRUBIN,TOTAL 1.7 mg/dL (0.2-1.3); BLOOD UREA NITROGEN 15 mg/dL (7-20); CALCIUM 9.3 mg/dL (8.4-10.2); CARBON DIOXIDE 26 mmol/L (22-30); CHLORIDE 104 mmol/L (98-107); GLUCOSE 158 mg/dL (75-110); POTASSIUM 3.7 mmol/L (3.6-5.0); SODIUM 140.8 mmol/L (137-145); TOTAL PROTEIN 7.2 g/dL (6.3-8.2)
[2018-08-10] MEDS ORDERED: VANCOMYCIN HCL INJ 1000 MG VIAL IV ONE (21:45)
[2018-08-10] MEDS ORDERED: CEFEPIME 1 GM/D5W RTU 1 GM/50 ML RTUPB IV ONE (21:45)
[2018-08-10 21:51] LABS: TROPONIN I 0.023 ng/mL
[2018-08-10 22:03] LABS: APPEARANCE,URINE CLEAR; BILIRUBIN,URINE NEGATIVE (NEGATIVE); COLOR,URINE STRAW; GLUCOSE, URINE NEGATIVE (NEGATIVE); KETONES,URINE NEGATIVE (NEGATIVE); LEUKOCYTE ESTERASE,URINE NEGATIVE (NEGATIVE); NITRITE,URINE NEGATIVE (NEGATIVE); PROTEIN,URINE NEGATIVE (NEGATIVE); URINE SPECIFIC GRAVITY 1.005; UROBILINOGEN,URINE NEGATIVE mg/dL (<2.0)
[2018-08-10 22:30] LABS: ARTERIAL BLOOD BASE EXCESS 1.3 mmol/L; ARTERIAL BLOOD H2CO3 1.15 mmol/L (1.05-1.35); ARTERIAL BLOOD HCO3 25.4 mmol/L (20-24); ARTERIAL BLOOD O2 SATURATION 95.7 % (94-98); ARTERIAL BLOOD PCO2 38.3 mmHg (35-45); ARTERIAL BLOOD PH 7.44 (7.35-7.45); ARTERIAL BLOOD PO2 76.2 mmHg (80-100); ARTERIAL BLOOD TOTAL CO2 26.5 mmol/L (21-25)
[2018-08-10 22:31] LABS: ARTERIAL BLOOD FIO2 60%
[2018-08-10] MEDS ORDERED: VANCOMYCIN HCL INJ 1000 MG VIAL ONE (22:56)
[2018-08-10] MEDS ORDERED: MAG HYDROX/AL HYDROX/SIMETH SUSP 30 ML UDCUP PO PRN (23:24)
[2018-08-10] MEDS ORDERED: ZOLPIDEM TARTRATE 5 MG TABLET PO PRN (23:24)
[2018-08-10] MEDS ORDERED: MAGNESIUM HYDROXIDE SUSP 30 ML UDCUP PO PRN (23:24)
[2018-08-10] MEDS ORDERED: ONDANSETRON HCL INJ/PF 4 MG/2 ML SDV IV PRN (23:24)
[2018-08-10] MEDS ORDERED: ACETAMINOPHEN 325 MG TABLET PO PRN (23:30)
[2018-08-10] MEDS ORDERED: NICOTINE 21 MG/24 HR PATCH.TD24 TD PRN (23:30)
[2018-08-10] MEDS ORDERED: LEVALBUTEROL HCL NEB 0.63 MG/3 ML AMPUL NEB PRN (23:30)
[2018-08-10] MEDS ORDERED: MORPHINE SULFATE 10 MG/ML INJ IV PRN (23:30)
[2018-08-11] MEDS ORDERED: BUSPIRONE HCL 10 MG TABLET PO ONE (00:15)
[2018-08-11] MEDS ORDERED: FUROSEMIDE 80 MG TABLET PO ONE (00:15)
[2018-08-11] MEDS ORDERED: APIXABAN 5 MG TABLET PO ONE (00:15)
[2018-08-11] MEDS ORDERED: SACUBITRIL/VALSARTAN 49 MG/51 MG TABLET PO ONE (00:15)
[2018-08-11] MEDS: LEVALBUTEROL HCL NEB 1.25 MG/3 ML AMPUL NEB SCH ×4 (01:31→23:57)
[2018-08-11] MEDS: IPRATROPIUM BROMIDE 0.02% NEB 0.5 MG/2.5 ML AMPUL NEB SCH ×4 (01:31→23:57)
[2018-08-11] MEDS: NITROGLYCERIN 2% OINTMENT 1 GM PACKET TP SCH ×4 (02:10→19:24)
[2018-08-11] MEDS ORDERED: TRAZODONE HCL 50 MG TABLET PO PRN (02:19)
--- NOTE | 2018-08-11 02:20 | PDOC H&P ---
History of Present Illness Admission Date/PCP: 08/10/2018 22:57 YI SANCHEZ DO Patient complains of: Dyspnea History of Present Illness: FRANKI DEL ROSARIO is a 47 year old female who presented to the emergency room via EMS with acute onset dyspnea. Patient admits that about 3 PM today she suddenly developed severe dyspnea that did not respond to utilization of oxygen at 4 L/min via nasal cannula at home, causing her to summon EMS to bring her to the hospital. Patient denied any additional or associated signs or symptoms accompanying her dyspnea with the exception of severe air hunger and its associated severe anxiety. She acknowledges numerous prior similar episodes due to her COPD and/or her congestive heart failure, and on 4 occasions has required intubation and ventilation. She has not identified any aggravating or ameliorating factors for her acute onset dyspnea today, but she does admit that she continues to smoke cigarettes. Upon arrival to the emergency room the niesha bhardwaj was found to be severely tachypneic and hypoxic. She required treatment with BiPAP and nebulizer treatments as well as a nitroglycerin infusion for relief of her respiratory symptoms. Her chest x-ray indicated acute pulmonary edema and the patient was subsequently admitted to the hospital for further evaluation and treatment on the IMCU floor. Past Medical History Cardiac Medical History: Reports: Congestive Heart Failure, Coronary Artery Disease, Myocardial Infarction, Hyperlipidema, Hypertension Denies: DVT, Pulmonary Embolism Pulmonary Medical History: Reports: Bronchitis, Chronic Obstructive Pulmonary Disease (COPD), Intubation, Pneumonia, Respiratory Failure, Sleep Apnea Denies: Asthma EENT Medical History: Denies: Cataracts, Ears - Hearing aids Neurological Medical History: Reports: Ischemic CVA Denies: Hemorrhagic CVA, Multiple Sclerosis, Seizures Neurological History Note: Patient claims 2 strokes in the past Endocrine Medical History: Reports: Obesity Denies: Diabetes Mellitus Type 1, Diabetes Mellitus Type 2, Hyperthyroidism, Hypothyroidism Renal/ Medical History: Denies: Chronic Kidney Disease, Nephrolithiasis Malignancy Medical History: Reports: None GI Medical History: Reports: Gastroesophageal Reflux Disease Denies: Cirrhosis, Crohn's Disease, Hepatitis, Hiatal Hernia, Ulcerative Colitis Musculoskeltal Medical History: Denies: Arthritis, Gout Skin Medical History: Denies: Eczema, Psoriasis Psychiatric Medical History: Reports: Depression, Substance Abuse, Tobacco Dependency Denies: Alcohol Dependency Traumatic Medical History: Reports: None Hematology: Reports: Anemia - Chronic, Bleeding Tendencies - "On blood thinners" Infectious Medical History: Reports: None Past Surgical History Past Surgical History: Reports: Cardiac Catheterization - Multiple, Section, Coronary Artery Bypass Graft - 2007, Coronary Stent - Multiple, Hysterectomy, Pacemaker - AICD, Tubal Ligation Social History Information Source: Patient Lives with: Family Smoking Status: Current Every Day Smoker Frequency of Alcohol Use: Occasional Hx Recreational Drug Use: Yes Drugs: Marijuana Hx Prescription Drug Abuse: No - Advance Directive Resuscitation Status: Full Code Surrogate healthcare decision maker:: Marge Ames her daughter Family History Family History: CAD, CVA, DM, Hypertension, Malignancy, Other - Kidney disease Parental Family History Reviewed: Yes Children Family History Reviewed: No Sibling(s) Family History Reviewed.: Yes Medication/Allergy Home Medications: Amiodarone HCl [Cordarone 200 mg Tablet] 400 mg PO DAILY 08/10/18 Apixaban [Eliquis 5 mg Tablet] 5 mg PO Q12 08/10/18 Aspirin [Adult Low Dose Aspirin EC] 81 mg PO DAILY 08/10/18 Atorvastatin Calcium [Lipitor 80 mg Tablet] 80 mg PO QHS 08/10/18 Buspirone HCl [Buspar 10 mg Tablet] 10 mg PO Q12 08/10/18 Famotidine [Pepcid 40 mg Tablet] 40 mg PO BID 08/10/18 Furosemide [Lasix 80 mg Tablet] 80 mg PO Q12 08/10/18 Isosorbide Mononitrate [Imdur 60 mg Tablet.er] 60 mg PO DAILY 08/10/18 Melatonin [Melatonin 1 mg Tablet] 1 mg PO QHS 08/10/18 Metoprolol Succinate [Toprol Xl 50 mg Tab.sr] 50 mg PO DAILY 08/10/18 Paroxetine HCl [Paxil 20 mg Tablet] 20 mg PO DAILY 08/10/18 Sacubitril/Valsartan [Entresto 49 mg/51 mg Tablet] 1 tab PO Q12 08/10/18 Allergies/Adverse Reactions: acetaminophen [From Darvocet-N] Allergy (Verified 07/31/18 11:55) egg [Egg] Allergy (Verified 07/31/18 11:55) hydrocodone [From Vicodin] Allergy (Verified 07/31/18 11:55) propoxyphene [From Darvocet-N] Allergy (Verified 07/31/18 11:55) diphenhydramine HCl [From Benadryl] Adverse Reaction (Verified 07/31/18 11:55) chest pain, bigemeny rhythm Review of Systems Constitutional: ABSENT: chills, fever(s) Eyes: ABSENT: visual disturbances, other - Eye pain Ears: ABSENT: hearing changes, other - Ear pain Nose, Mouth, and Throat: ABSENT: mouth pain, sore throat Cardiovascular: PRESENT: as per HPI, dyspnea on exertion, orthropnea - States he is unable to lie flat due to increased dyspnea (noted this since she has been in the ER). ABSENT: chest pain, edema, palpitations Respiratory: PRESENT: as per HPI, dyspnea. ABSENT: cough Gastrointestinal: ABSENT: abdominal pain, constipation, diarrhea, nausea, vomiting Genitourinary: ABSENT: dysuria, hematuria Musculoskeletal: ABSENT: back pain, joint swelling, muscle weakness Integumentary: ABSENT: pruritus, rash Neurological: ABSENT: confusion, convulsions, focal weakness, memory loss, syncope Psychiatric: ABSENT: anxiety, depression Endocrine: ABSENT: cold intolerance, heat intolerance Hematologic/Lymphatic: ABSENT: easy bleeding, easy bruising Physical Exam Vital Signs: Temp Pulse Resp BP Pulse Ox 28 H 125/78 92 08/10/18 22:26 08/10/18 22:26 08/10/18 22:26 Intake & Output 08/08/18 08/09/18 08/10/18 23:59 23:59 23:59 Intake Total 200 Balance 200 Weight 115.7 kg General appearance: PRESENT: cooperative, mild distress - Secondary to dyspnea, obese, other - Currently on BiPAP Head exam: PRESENT: atraumatic, normocephalic Eye exam: ABSENT: conjunctival injection, scleral icterus Ear exam: PRESENT: normal external ear exam. ABSENT: bleeding, drainage Mouth exam: PRESENT: dry mucosa, neck supple Neck exam: PRESENT: JVD - Mild bilateral at 45 degrees elevation. ABSENT: thyromegaly, tracheal deviation Respiratory exam: PRESENT: accessory muscle use - Minimal accessory muscle use at the present time on BiPAP, decreased breath sounds - Decreased breath sounds in the bilateral bases, prolonged expiratory phas - Moderately prolonged expiratory phase no, rales - Fine bibasilar rales noted in the lower one third of both lungs, symmetrical, tachypnea, wheezes - Moderate expiratory wheezes in all pena, other - On BiPAP. ABSENT: retraction, rhonchi Cardiovascular exam: PRESENT: gallop - S4 gallop noted, RRR. ABSENT: clicks, rubs Pulses: PRESENT: normal radial pulses, normal dorsalis pedis pul Vascular exam: PRESENT: normal capillary refill. ABSENT: pallor GI/Abdominal exam: PRESENT: normal bowel sounds, soft Rectal exam: PRESENT: deferred Extremities exam: ABSENT: joint swelling, pedal edema Musculoskeletal exam: PRESENT: full ROM, normal inspection Neurological exam: PRESENT: alert, oriented to person, oriented to place, oriented to time, oriented to situation, CN II-XII grossly intact. ABSENT: motor sensory deficit Psychiatric exam: PRESENT: appropriate affect, normal mood Skin exam: PRESENT: dry, intact, warm. ABSENT: jaundice, rash, urticaria Results Laboratory Results: 08/10/18 20:57 08/10/18 20:57 08/10/18 08/10/18 08/10/18 20:57 20:57 20:57 WBC 11.5 H RBC 3.71 L Hgb 11.1 L Hct 34.1 L MCV 92 MCH 29.9 MCHC 32.5 RDW 17.3 H Plt Count 374 Seg Neutrophils % 76.6 Lymphocytes % 16.5 Monocytes % 6.0 Eosinophils % 0.1 Basophils % 0.8 Absolute Neutrophils 8.8 H Absolute Lymphocytes 1.9 Absolute Monocytes 0.7 Absolute Eosinophils 0.0 Absolute Basophils 0.1 Carbonic Acid HCO3/H2CO3 Ratio ABG pH ABG pCO2 ABG pO2 ABG HCO3 ABG O2 Saturation ABG Base Excess VBG pH VBG pCO2 VBG HCO3 VBG Base Excess FiO2 Sodium 140.8 Potassium 3.7 Chloride 104 Carbon Dioxide 26 Anion Gap 11 BUN 15 Creatinine 1.40 H Est GFR ( Amer) 49 L Est GFR (Non-Af Amer) 40 L Glucose 158 H Lactic Acid 1.8 Calcium 9.3 Total Bilirubin 1.7 H AST 37 H ALT 39 Alkaline Phosphatase 142 H Total Protein 7.2 Albumin 4.3 Urine Color Urine Appearance Urine pH Ur Specific [place] Urine Protein Urine Glucose (UA) Urine Ketones Urine Blood Urine Nitrite Ur Leukocyte Esterase Urine WBC (Auto) Urine RBC (Auto) 08/10/18 08/10/18 08/10/18 20:57 21:40 22:00 WBC RBC Hgb Hct MCV MCH MCHC RDW Plt Count Seg Neutrophils % Lymphocytes % Monocytes % Eosinophils % Basophils % Absolute Neutrophils Absolute Lymphocytes Absolute Monocytes Absolute Eosinophils Absolute Basophils Carbonic Acid 1.15 HCO3/H2CO3 Ratio 22:1 ABG pH 7.44 ABG pCO2 38.3 ABG pO2 76.2 L ABG HCO3 25.4 H ABG O2 Saturation 95.7 ABG Base Excess 1.3 VBG pH 7.41 VBG pCO2 43.0 VBG HCO3 26.4 VBG Base Excess 1.5 FiO2 60% Sodium Potassium Chloride Carbon Dioxide Anion Gap BUN Creatinine Est GFR ( Amer) Est GFR (Non-Af Amer) Glucose Lactic Acid Calcium Total Bilirubin AST ALT Alkaline Phosphatase Total Protein Albumin Urine Color STRAW Urine Appearance CLEAR Urine pH 8.0 Ur Specific [place] 1.005 Urine Protein NEGATIVE Urine Glucose (UA) NEGATIVE Urine Ketones NEGATIVE Urine Blood SMALL H Urine Nitrite NEGATIVE Ur Leukocyte Esterase NEGATIVE Urine WBC (Auto) 0 Urine RBC (Auto) 4 08/10/18 20:57 Troponin I 0.023 NT-Pro-B Natriuret Pep 5080 H Impressions: Chest X-Ray 08/10/18 20:55 IMPRESSION: Abnormal opacity at the right perihilar level and right lower lung could be secondary to asymmetric pulmonary edema, infectious process is a consideration. Recommend follow-up. Assessment and Plan - Diagnosis (1) Acute pulmonary edema with congestive heart failure Is this a current diagnosis for this admission?: Yes Plan: Patient is admitted to [facility] and will be treated aggressively with topical nitroglycerin and intravenous Lasix. Patient will also use morphine sulfate 2 mg IV nightly hour as needed severe dyspnea. Her vital signs were monitored closely and daily CBC, metabolic profiles and magnesium levels will be followed as part of monitoring her therapy. (2) Acute respiratory failure with hypoxia Is this a current diagnosis for this admission?: Yes Plan: Patient be treated with supplemental oxygen and noninvasive airway pressure support (BiPAP) as required. Her arterial blood gases be monitored on a regular basis for ongoing evaluation therapy. (3) COPD (chronic obstructive pulmonary disease) Qualifiers: COPD type: unspecified COPD Qualified Code(s): J44.9 - Chronic obstructive pulmonary disease, unspecified Is this a current diagnosis for this admission?: Yes Plan: Patient be continued on a routine nebulizer therapy regiment for COPD including nebulized Xopenex, Atrovent and Pulmicort. She will also receive nebulized Mucomyst in light of her pneumonia. Her oxygen saturation and vital signs were monitored closely throughout her hospital course. It is noted the patient has a leukocytosis which is likely secondary to her oral steroid therapy, prescribed for her after her most recent hospitalization and which she has not yet completed. Likewise patient has a mild hyperglycemia which is again most likely due to her current steroid therapy regimen. Oral steroid therapy will be disc ontinued at this time. (4) CAD (coronary artery disease) Qualifiers: Coronary Disease-Associated Artery/Lesion type: unspecified vessel or lesion type [place] vs. transplanted heart: unspecified whether [place] or transplanted heart Associated angina: angina presence unspecified Qualified Code(s): I25.10 - Atherosclerotic heart disease of [place] coronary artery without angina pectoris Is this a current diagnosis for this admission?: Yes Plan: Patient will be continued on her usual cardiac medications unless adjustments are required for treatment of her acute pulmonary edema. (5) Hypertension Qualifiers: Hypertension type: essential hypertension Qualified Code(s): I10 - Essential (primary) hypertension Is this a current diagnosis for this admission?: Yes Plan: Patient will be continued on her usual antihypertensive regiment unless adjustments are required as part of treatment of her acute pulmonary edema. (6) Hyperlipidemia Qualifiers: Hyperlipidemia type: unspecified Qualified Code(s): E78.5 - Hyperlipidemia, unspecified Is this a current diagnosis for this admission?: Yes Plan: Patient will be continued on her current hyperlipidemia therapy. (7) Chronic systolic CHF (congestive heart failure) Is this a current diagnosis for this admission?: Yes Plan: Patient will be continued on her current congestive heart failure regimen unless adjustments are required as part of treatment for her acute pulmonary edema. (8) CKD (chronic kidney disease), stage III Is this a current diagnosis for this admission?: Yes Plan: Patient's renal functions been monitored throughout her hospital course with serial metabolic profiles. Care will be taken to avoid medications which may, alone or in combination with other current medications, have an adverse effect on her renal function. (9) Tobacco use disorder, severe, dependence Is this a current diagnosis for this admission?: Yes Plan: Patient is advised to discontinue utilization of tobacco. Smoking cessation counseling is given in brief. A nicotine replacement patch will be available for patients use. (10) Morbid obesity Is this a current diagnosis for this admission?: Yes Plan: Patient has a BMI of 42.4 on admission. She will be evaluated by the licensed dietitian and an appropriate diet for her multiple medical problems including need for weight loss will be presented. Other lifestyle changes which may improve her overall health and well-being may also be offered. - Time Time Spent with patient: 25-34 minutes Medications reviewed and adjusted accordingly: Yes Anticipated discharge: Home - Inpatient Certification Based on my medical assessment, after consideration of the patient's comorbidi ties, presenting symptoms, or acuity I expect that the services needed warrant INPATIENT care.: Yes I certify that my determination is in accordance with my understanding of [facility]'s requirements for reasonable and necessary INPATIENT services [42 CFR 412.3e].: Yes Medical Necessity: Failure to Improve With Outpatient Therapy, Significant Comorbidiites Make Outpatient Treatment Too Risky, Need Close Monitoring Due to Risk of Patient Decompensation, Need For Continuous Telemetry Monitoring, Need for Nebulizer Therapy and Monitoring of Response, Risk of Complication if Not Cared For in Hospital
--- NOTE | 2018-08-11 02:58 | ADVANCED CARE ---
- Diagnosis (1) Acute pulmonary edema with congestive heart failure Diagnosis Current: Yes (2) Acute respiratory failure with hypoxia Diagnosis Current: Yes (3) COPD (chronic obstructive pulmonary disease) Diagnosis Current: Yes (4) CAD (coronary artery disease) Diagnosis Current: Yes (5) Hypertension Diagnosis Current: Yes (6) Hyperlipidemia Diagnosis Current: Yes (7) Chronic systolic CHF (congestive heart failure) Diagnosis Current: Yes (8) CKD (chronic kidney disease), stage III Diagnosis Current: Yes (9) Tobacco use disorder, severe, dependence Diagnosis Current: Yes (10) Morbid obesity Diagnosis Current: Yes Attendance: The patient and myself Resuscitation Status: Full Code Discussion: Patient wishes to remain a full code for any cardiac or respiratory arrest that might occur during her hospitalization. She wishes for her daughter Marge Ames to be her surrogate medical decision maker. Living barron were discussed and she will think about looking into it a little more when she feels better and may consider filling out a living will form for future use. Care Planning Goals: #1 patient to remain full code at this time. #2 Aparna Ames to be designated as her surrogate medical decision maker. Document(s) Completed: #1 patient is designated as full code in the EMR. #2 Marge Ames is designated as the patient's surrogate medical decision- maker. Time Spent: 15 minutes
[2018-08-11 03:27] LABS: ABSOLUTE LYMPHOCYTES (AUTO) 0.4 10^3/uL (0.5-4.7); ABSOLUTE MONOCYTES (AUTO) 0.1 10^3/uL (0.1-1.4); ABSOLUTE NEUT (AUTO) 7.8 10^3/uL (1.7-8.2); BASOPHILS % (AUTO) 0.2 % (0-2); HEMATOCRIT 31.4 % (36.0-47.0); HEMOGLOBIN 10.3 g/dL (12.0-15.5); LYMPHOCYTES % (AUTO) 5.3 % (13-45); MEAN CORPUSCULAR HEMOGLOBIN 30.1 pg (27.0-33.4); MEAN CORPUSCULAR HGB CONC 32.8 g/dL (32.0-36.0); MEAN CORPUSCULAR VOLUME 92 fl (80-97); MONOCYTES % (AUTO) 0.8 % (3-13); PLATELET COUNT 301 10^3/uL (150-450); RED BLOOD COUNT 3.42 10^6/uL (3.72-5.28); RED CELL DISTRIBUTION WIDTH 16.8 % (11.5-14.0); SEGMENTED NEUTROPHILS % (AUTO) 93.7 % (42-78); TOTAL CELLS COUNTED % (AUTO) 100 %; WHITE BLOOD COUNT 8.3 10^3/uL (4.0-10.5)
[2018-08-11 03:40] LABS: ANION GAP 7 (5-19); BLOOD UREA NITROGEN 14 mg/dL (7-20); CALCIUM 8.5 mg/dL (8.4-10.2); CARBON DIOXIDE 28 mmol/L (22-30); CHLORIDE 105 mmol/L (98-107); CREATINE KINASE 58 U/L (30-135); GLUCOSE 166 mg/dL (75-110); POTASSIUM 3.7 mmol/L (3.6-5.0); SODIUM 140.3 mmol/L (137-145)
[2018-08-11 03:51] LABS: CREATINE KINASE MB 0.67 ng/mL (<4.55); TROPONIN I 0.037 ng/mL
[2018-08-11] MEDS ORDERED: HEPARIN SOD (PORCINE) 5,000 UNIT/ML 1 ML SYRINGE SUBCUT SCH (06:00)
[2018-08-11] MEDS: PANTOPRAZOLE SODIUM 40 MG TABLET.DR PO SCH ×2 (06:02→19:32)
[2018-08-11 06:13] LABS: ARTERIAL BLOOD BASE EXCESS 3.4 mmol/L; ARTERIAL BLOOD H2CO3 1.49 mmol/L (1.05-1.35); ARTERIAL BLOOD HCO3 29.1 mmol/L (20-24); ARTERIAL BLOOD O2 SATURATION 98.2 % (94-98); ARTERIAL BLOOD PCO2 49.5 mmHg (35-45); ARTERIAL BLOOD PH 7.39 (7.35-7.45); ARTERIAL BLOOD TOTAL CO2 30.6 mmol/L (21-25)
[2018-08-11 06:21] LABS: ARTERIAL BLOOD FIO2 60%
--- NOTE | 2018-08-11 07:35 | EKG REPORT ---
SEVERITY:- ABNORMAL ECG - ATRIAL-SENSED VENTRICULAR-PACED RHYTHM : Confirmed by: Kirk Weeks MD 11-Aug-2018 07:34:32
[2018-08-11] MEDS: ACETYLCYSTEINE 20% SOLN 800 MG/4 ML VIAL.NEB NEB SCH ×2 (08:37→20:06)
[2018-08-11] MEDS: BUDESONIDE NEB 0.5 MG/2 ML AMPUL NEB SCH ×2 (08:38→20:07)
[2018-08-11 09:56] LABS: CREATINE KINASE MB 0.97 ng/mL (<4.55); TROPONIN I 0.022 ng/mL
[2018-08-11] MEDS: APIXABAN 5 MG TABLET PO SCH ×2 (10:23→22:26)
[2018-08-11] MEDS: BUSPIRONE HCL 10 MG TABLET PO SCH ×2 (10:24→22:27)
[2018-08-11] MEDS: DOCUSATE SODIUM 100 MG CAPSULE PO SCH ×2 (10:24→19:33)
[2018-08-11] MEDS: METOPROLOL SUCCINATE 50 MG TAB.SR.24H PO SCH (10:24)
[2018-08-11] MEDS: SACUBITRIL/VALSARTAN 49 MG/51 MG TABLET PO SCH ×2 (10:24→22:26)
[2018-08-11] MEDS: ASPIRIN 81 MG TABLET, ENT COATED PO SCH (10:25)
[2018-08-11] MEDS: FUROSEMIDE 80 MG TABLET PO SCH ×2 (10:26→22:27)
[2018-08-11] MEDS: PAROXETINE HCL 20 MG TABLET PO SCH (10:31)
[2018-08-11 15:57] LABS: CREATINE KINASE MB 1.24 ng/mL (<4.55); TROPONIN I 0.019 ng/mL
--- NOTE | 2018-08-11 19:44 | PDOC PROGRESS REPORT ---
Subjective Progress Note for:: 08/11/18 Subjective:: The patient is resting comfortably. She has her BiPAP and oxygen off while she is eating. Reason For Visit: ACUTE PULMONARY EDEMA WITH ACUTE RESPIRATORY Physical Exam Vital Signs: Temp Pulse Resp BP Pulse Ox 98.4 F 63 30 H 118/74 98 08/11/18 06:40 08/11/18 08:35 08/11/18 08:35 08/11/18 06:40 08/11/18 08:35 Intake & Output 08/10/18 08/11/18 08/12/18 06:59 06:59 06:59 Intake Total 290 Output Total 100 Balance 190 Weight 114.1 kg General appearance: PRESENT: no acute distress, cooperative, morbidly obese, well-developed Head exam: PRESENT: atraumatic, normocephalic Mouth exam: PRESENT: moist, tongue midline Respiratory exam: PRESENT: rales, symmetrical, unlabored - Bilaterally. ABSENT: accessory muscle use, rhonchi, tachypnea, wheezes Cardiovascular exam: PRESENT: RRR, +S1, +S2, systolic murmur - 2/6 GI/Abdominal exam: PRESENT: normal bowel sounds, soft, other. ABSENT: distended, tenderness Rectal exam: PRESENT: deferred Extremities exam: ABSENT: pedal edema Neurological exam: PRESENT: alert, awake, oriented to person, oriented to place, oriented to time, oriented to situation Psychiatric exam: PRESENT: appropriate affect. ABSENT: agitated, anxious Focused psych exam: ABSENT: delusional, restlessness Results Laboratory Results: 08/11/18 03:10 08/11/18 03:10 08/10/18 08/10/18 08/10/18 20:57 20:57 20:57 WBC 11.5 H RBC 3.71 L Hgb 11.1 L Hct 34.1 L MCV 92 MCH 29.9 MCHC 32.5 RDW 17.3 H Plt Count 374 Seg Neutrophils % 76.6 Lymphocytes % 16.5 Monocytes % 6.0 Eosinophils % 0.1 Basophils % 0.8 Absolute Neutrophils 8.8 H Absolute Lymphocytes 1.9 Absolute Monocytes 0.7 Absolute Eosinophils 0.0 Absolute Basophils 0.1 Carbonic Acid HCO3/H2CO3 Ratio ABG pH ABG pCO2 ABG pO2 ABG HCO3 ABG O2 Saturation ABG Base Excess VBG pH VBG pCO2 VBG HCO3 VBG Base Excess FiO2 Sodium 140.8 Potassium 3.7 Chloride 104 Carbon Dioxide 26 Anion Gap 11 BUN 15 Creatinine 1.40 H Est GFR ( Amer) 49 L Est GFR (Non-Af Amer) 40 L Glucose 158 H Lactic Acid 1.8 Calcium 9.3 Magnesium Total Bilirubin 1.7 H AST 37 H ALT 39 Alkaline Phosphatase 142 H Total Protein 7.2 Albumin 4.3 Urine Color Urine Appearance Urine pH Ur Specific [place] Urine Protein Urine Glucose (UA) Urine Ketones Urine Blood Urine Nitrite Ur Leukocyte Esterase Urine WBC (Auto) Urine RBC (Auto) 08/10/18 08/10/18 08/10/18 20:57 21:40 22:00 WBC RBC Hgb Hct MCV MCH MCHC RDW Plt Count Seg Neutrophils % Lymphocytes % Monocytes % Eosinophils % Basophils % Absolute Neutrophils Absolute Lymphocytes Absolute Monocytes Absolute Eosinophils Absolute Basophils Carbonic Acid 1.15 HCO3/H2CO3 Ratio 22:1 ABG pH 7.44 ABG pCO2 38.3 ABG pO2 76.2 L ABG HCO3 25.4 H ABG O2 Saturation 95.7 ABG Base Excess 1.3 VBG pH 7.41 VBG pCO2 43.0 VBG HCO3 26.4 VBG Base Excess 1.5 FiO2 60% Sodium Potassium Chloride Carbon Dioxide Anion Gap BUN Creatinine Est GFR ( Amer) Est GFR (Non-Af Amer) Glucose Lactic Acid Calcium Magnesium Total Bilirubin AST ALT Alkaline Phosphatase Total Protein Albumin Urine Color STRAW Urine Appearance CLEAR Urine pH 8.0 Ur Specific [place] 1.005 Urine Protein NEGATIVE Urine Glucose (UA) NEGATIVE Urine Ketones NEGATIVE Urine Blood SMALL H Urine Nitrite NEGATIVE Ur Leukocyte Esterase NEGATIVE Urine WBC (Auto) 0 Urine RBC (Auto) 4 08/11/18 08/11/18 08/11/18 03:10 03:10 05:50 WBC 8.3 RBC 3.42 L Hgb 10.3 L Hct 31.4 L MCV 92 MCH 30.1 MCHC 32.8 RDW 16.8 H Plt Count 301 Seg Neutrophils % 93.7 H Lymphocytes % 5.3 L Monocytes % 0.8 L Eosinophils % 0.0 Basophils % 0.2 Absolute Neutrophils 7.8 Absolute Lymphocytes 0.4 L Absolute Monocytes 0.1 Absolute Eosinophils 0.0 Absolute Basophils 0.0 Carbonic Acid 1.49 H HCO3/H2CO3 Ratio 19:1 ABG pH 7.39 ABG pCO2 49.5 H ABG pO2 119.0 H ABG HCO3 29.1 H ABG O2 Saturation 98.2 H ABG Base Excess 3.4 VBG pH VBG pCO2 VBG HCO3 VBG Base Excess FiO2 60% Sodium 140.3 Potassium 3.7 Chloride 105 Carbon Dioxide 28 Anion Gap 7 BUN 14 Creatinine 1.30 H Est GFR ( Amer) 53 L Est GFR (Non-Af Amer) 44 L Glucose 166 H Lactic Acid Calcium 8.5 Magnesium 2.7 H Total Bilirubin AST ALT Alkaline Phosphatase Total Protein Albumin Urine Color Urine Appearance Urine pH Ur Specific [place] Urine Protein Urine Glucose (UA) Urine Ketones Urine Blood Urine Nitrite Ur Leukocyte Esterase Urine WBC (Auto) Urine RBC (Auto) 08/10/18 08/11/18 08/11/18 20:57 03:10 03:10 Creatine Kinase 58 CK-MB (CK-2) 0.67 Troponin I 0.023 0.037 NT-Pro-B Natriuret Pep 5080 H 08/11/18 08/11/18 09:03 09:03 Creatine Kinase 53 CK-MB (CK-2) 0.97 Troponin I 0.022 NT-Pro-B Natriuret Pep Impressions: Chest X-Ray 08/10/18 20:55 IMPRESSION: Abnormal opacity at the right perihilar level and right lower lung could be secondary to asymmetric pulmonary edema, infectious process is a consideration. Recommend follow-up. Assessment and Plan - Diagnosis (1) Acute pulmonary edema with congestive heart failure Is this a current diagnosis for this admission?: Yes Plan: Patient is admitted to [facility] and will be treated aggressively with topical nitroglycerin and intravenous Lasix. Patient will also use morphine sulfate 2 mg IV nightly hour as needed severe dyspnea. Her vital signs were monitored closely and daily CBC, metabolic profiles and magnesium levels will be followed as part of monitoring her therapy. 08/11/2018-the patient is comfortable today. She in fact has taken her BiPAP off to eat. She is in no distress. We will continue an aggressive diuresis regimen. (2) Acute respiratory failure with hypoxia Is this a current diagnosis for this admission?: Yes Plan: Patient be treated with supplemental oxygen and noninvasive airway pressure support (BiPAP) as required. Her arterial blood gases be monitored on a regular basis for ongoing evaluation therapy. 08/11/2018-respiratory failure secondary to pulmonary edema and congestive heart failure. The patient is notoriously noncompliant. Could be due to noncompliance that she has experienced this episode. We will continue the BiPAP and oxygen as required. (3) COPD (chronic obstructive pulmonary disease) Qualifiers: COPD type: unspecified COPD Qualified Code(s): J44.9 - Chronic obstructive pulmonary disease, unspecified Is this a current diagnosis for this admission?: Yes Plan: Patient be continued on a routine nebulizer therapy regiment for COPD including nebulized Xopenex, Atrovent and Pulmicort. She will also receive nebulized Mucomyst in light of her pneumonia. Her oxygen saturation and vital signs were monitored closely throughout her hospital course. It is noted the patient has a leukocytosis which is likely secondary to her oral steroid therapy, prescribed for her after her most recent hospitalization and which she has not yet completed. Likewise patient has a mild hyperglycemia which is again most likely due to her current steroid therapy regimen. Oral steroid therapy will be discontinued at this time. 08/11/2018-continue nebulizer therapies. She will be on nebulized steroids and so systemic steroids will be discontinued. (4) CAD (coronary artery disease) Qualifiers: Coronary Disease-Associated Artery/Lesion type: unspecified vessel or lesion type [place] vs. transplanted heart: unspecified whether [place] or transplanted heart Associated angina: angina presence unspecified Qualified Code(s): I25.10 - Atherosclerotic heart disease of [place] coronary artery without angina pectoris Is this a current diagnosis for this admission?: Yes Plan: Patient will be continued on her usual cardiac medications unless adjustments are required for treatment of her acute pulmonary edema. 08/11/2018-we will continue her current medication regimen. This includes atorvastatin, metoprolol, Entresto and nitrates. (5) Hypertension Qualifiers: Hypertension type: essential hypertension Qualified Code(s): I10 - Essential (primary) hypertension Is this a current diagnosis for this admission?: Yes (6) Chronic systolic CHF (congestive heart failure) Is this a current diagnosis for this admission?: Yes Plan: Patient will be continued on her current congestive heart failure regimen unless adjustments are required as part of treatment for her acute pulmonary edema. 08/11/2018-echocardiogram in April revealed an ejection fraction of only 20 to 25%. 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 (7) Hyperlipidemia Qualifiers: Hyperlipidemia type: unspecified Qualified Code(s): E78.5 - Hyperlipidemia, unspecified Is this a current diagnosis for this admission?: Yes Plan: Patient will be continued on her current hyperlipidemia therapy. 08/11/2018-continue atorvastatin (8) Morbid obesity Is this a current diagnosis for this admission?: Yes Plan: Patient has a BMI of 42.4 on admission. She will be evaluated by the licensed dietitian and an appropriate diet for her multiple medical problems including need for weight loss will be presented. Other lifestyle changes which may improve her overall health and well-being may also be offered. 08/11/2018-the patient is noncompliant with her medication regimen and so it is very unlikely that she will be compliant with diet. She does not seem very motivated to exercise either. (9) Tobacco use disorder, severe, dependence Is this a current diagnosis for this admission?: Yes Plan: Patient is advised to discontinue utilization of tobacco. Smoking cessation counseling is given in brief. A nicotine replacement patch will be available for patients use. 08/11/2018-nicotine patch is available. Continue to encourage smoking cessation. (10) CKD (chronic kidney disease), stage III Is this a current diagnosis for this admission?: Yes Plan: Patient's renal functions been monitored throughout her hospital course with serial metabolic profiles. Care will be taken to avoid medications which may, alone or in combination with other current medications, have an adverse effect on her renal function. 08/11/2018-continue to monitor renal function. Review reveals that her function today in fact is better than over the last 4 to 5 months. - Time Time Spent with patient: 15-24 minutes Medications reviewed and adjusted accordingly: Yes Anticipated discharge: Home with Homehealth
[2018-08-11] MEDS ORDERED: ATORVASTATIN CALCIUM 80 MG TABLET PO SCH (22:00)
[2018-08-11] MEDS ORDERED: MELATONIN 1 MG TABLET PO SCH (22:00)
[2018-08-12] MEDS: NITROGLYCERIN 2% OINTMENT 1 GM PACKET TP SCH ×2 (00:54→06:02)
[2018-08-12 05:25] LABS: ABSOLUTE BASOPHILS # (AUTO) 0.1 10^3/uL (0.0-0.2); ABSOLUTE LYMPHOCYTES (AUTO) 1.3 10^3/uL (0.5-4.7); ABSOLUTE MONOCYTES (AUTO) 0.4 10^3/uL (0.1-1.4); ABSOLUTE NEUT (AUTO) 4.7 10^3/uL (1.7-8.2); BASOPHILS % (AUTO) 0.9 % (0-2); EOSINOPHILS % (AUTO) 0.1 % (0-6); HEMATOCRIT 30.5 % (36.0-47.0); HEMOGLOBIN 9.9 g/dL (12.0-15.5); LYMPHOCYTES % (AUTO) 19.3 % (13-45); MEAN CORPUSCULAR HEMOGLOBIN 29.9 pg (27.0-33.4); MEAN CORPUSCULAR HGB CONC 32.4 g/dL (32.0-36.0); MEAN CORPUSCULAR VOLUME 92 fl (80-97); MONOCYTES % (AUTO) 6.7 % (3-13); PLATELET COUNT 273 10^3/uL (150-450); RED CELL DISTRIBUTION WIDTH 17.2 % (11.5-14.0); TOTAL CELLS COUNTED % (AUTO) 100 %; WHITE BLOOD COUNT 6.5 10^3/uL (4.0-10.5)
[2018-08-12 05:49] LABS: BLOOD UREA NITROGEN 19 mg/dL (7-20); CALCIUM 8.8 mg/dL (8.4-10.2); GLUCOSE 117 mg/dL (75-110); POTASSIUM 4.1 mmol/L (3.6-5.0)
[2018-08-12 05:55] LABS: ANION GAP 5 (5-19); CARBON DIOXIDE 33 mmol/L (22-30); CHLORIDE 105 mmol/L (98-107); SODIUM 142.8 mmol/L (137-145)
[2018-08-12] MEDS: PANTOPRAZOLE SODIUM 40 MG TABLET.DR PO SCH (05:59)
[2018-08-12 08:00] VITALS: BP 119/76
[2018-08-12] MEDS: LEVALBUTEROL HCL NEB 1.25 MG/3 ML AMPUL NEB SCH (08:25)
[2018-08-12] MEDS: BUDESONIDE NEB 0.5 MG/2 ML AMPUL NEB SCH (08:25)
[2018-08-12] MEDS: ACETYLCYSTEINE 20% SOLN 800 MG/4 ML VIAL.NEB NEB SCH (08:25)
[2018-08-12] MEDS: IPRATROPIUM BROMIDE 0.02% NEB 0.5 MG/2.5 ML AMPUL NEB SCH (08:25)
[2018-08-12] MEDS: APIXABAN 5 MG TABLET PO SCH (09:34)
[2018-08-12] MEDS: PAROXETINE HCL 20 MG TABLET PO SCH (09:34)
[2018-08-12] MEDS: SACUBITRIL/VALSARTAN 49 MG/51 MG TABLET PO SCH (09:34)
[2018-08-12] MEDS: DOCUSATE SODIUM 100 MG CAPSULE PO SCH (09:34)
[2018-08-12] MEDS: ASPIRIN 81 MG TABLET, ENT COATED PO SCH (09:34)
[2018-08-12] MEDS: FUROSEMIDE 80 MG TABLET PO SCH (09:34)
[2018-08-12] MEDS: BUSPIRONE HCL 10 MG TABLET PO SCH (09:34)
[2018-08-12] MEDS: METOPROLOL SUCCINATE 50 MG TAB.SR.24H PO SCH (09:35)
--- NOTE | 2018-08-16 17:41 | PDOC DISCHARGE SUMMARY ---
General - Admit/Disc Date/PCP Admission Date/Primary Care Provider: 08/10/18 22:57 YI DANIEL, DO Discharge Date: 08/12/18 - Discharge Diagnosis (1) Acute on chronic systolic (congestive) heart failure Is this a current diagnosis for this admission?: Yes (2) Acute pulmonary edema with congestive heart failure Is this a current diagnosis for this admission?: Yes (3) CAD (coronary artery disease) Is this a current diagnosis for this admission?: No (4) CKD (chronic kidney disease), stage III Is this a current diagnosis for this admission?: No (5) COPD (chronic obstructive pulmonary disease) Is this a current diagnosis for this admission?: No (6) Hyperlipidemia Is this a current diagnosis for this admission?: No (7) Hypertension Is this a current diagnosis for this admission?: No (8) Morbid obesity Is this a current diagnosis for this admission?: No (9) Tobacco use disorder, severe, dependence Is this a current diagnosis for this admission?: No - Additional Information Resuscitation Status: Full Code Discharge Diet: Cardiac Discharge Activity: Activity As Tolerated, Balance Activity w/Rest, Weigh Daily Home Medications: Amiodarone HCl [Cordarone 200 mg Tablet] 400 mg PO DAILY 08/10/18 Apixaban [Eliquis 5 mg Tablet] 5 mg PO Q12 08/10/18 Aspirin [Adult Low Dose Aspirin EC] 81 mg PO DAILY 08/10/18 Atorvastatin Calcium [Lipitor 80 mg Tablet] 80 mg PO QHS 08/10/18 Buspirone HCl [Buspar 10 mg Tablet] 10 mg PO Q12 08/10/18 Famotidine [Pepcid 40 mg Tablet] 40 mg PO BID 08/10/18 Furosemide [Lasix 80 mg Tablet] 80 mg PO Q12 08/10/18 Isosorbide Mononitrate [Imdur 60 mg Tablet.er] 60 mg PO DAILY 08/10/18 Melatonin [Melatonin 1 mg Tablet] 1 mg PO QHS 08/10/18 Metoprolol Succinate [Toprol Xl 50 mg Tab.sr] 50 mg PO DAILY 08/10/18 Paroxetine HCl [Paxil 20 mg Tablet] 20 mg PO DAILY 08/10/18 Sacubitril/Valsartan [Entresto 49 mg/51 mg Tablet] 1 tab PO Q12 08/10/18 History of Present Illness History of Present Illness: FRANKI DEL ROSARIO is a 47 year old female who presented to the emergency room via EMS with acute onset dyspnea. Patient admits that about 3 PM today she suddenly developed severe dyspnea that did not respond to utilization of oxygen at 4 L/min via nasal cannula at home, causing her to summon EMS to bring her to the hospital. Patient denied any additional or associated signs or symptoms accompanying her dyspnea with the exception of severe air hunger and its associa maira severe anxiety. She acknowledges numerous prior similar episodes due to her COPD and/or her congestive heart failure, and on 4 occasions has required intubation and ventilation. She has not identified any aggravating or ameliorating factors for her acute onset dyspnea today, but she does admit that she continues to smoke cigarettes. Upon arrival to the emergency room the patient was found to be severely tachypneic and hypoxic. She required treatment with BiPAP and nebulizer treatments as well as a nitroglycerin infusion for relief of her respiratory symptoms. Her chest x-ray indicated acute pulmonary edema and the patient was subsequently admitted to the hospital for further evaluation and treatment on the IMCU floor. Hospital Course Hospital Course: (1) Acute pulmonary edema with congestive heart failure Due to noncompliance. proBNP 5080 likely positive for pulmonary edema. Was admitted admitted to telemetry, on IV Lasix, BiPAP, volume restriction and DuoNeb's. Back to baseline. On my encounter patient is comfortably sitting in bed enjoying her breakfast. Stating that her friend that she is living with has found another hotel most to and has returned her O2 equipment however she has several O2 tanks at home which are full she is part of [facility] and has all her necessary medications. (2) Acute respiratory failure with hypoxia Per problem #1. (3) COPD (chronic obstructive pulmonary disease) Was a started on Xopenex, Atrovent and Pulmicort as well as nebulized Mucomyst and IV steroids and empiric IV antibiotics. Cultures remain negative. Afebrile and WBCs WNL on the day of discharge. (4) CAD (coronary artery disease) Denies any anginal pain, started on home meds. (5) Hypertension Normotensive. Was restarted on home meds. Asked to follow-up with PCP. (6) Chronic systolic CHF (congestive heart failure) History of systolic heart failure cocaine induced. 08/11/2018 2D echo LVEF 20 to 25%. Cardiac diet, IV Lasix, volume restriction. Restarted on home meds. (7) Hyperlipidemia Start on atorvastatin. Diet and lifestyle modification advised. (8) Morbid obesity Lifestyle modification recommended. Patient may benefit from bariatric surgery. (9) Tobacco use disorder, severe, dependence Strongly advised on quitting. NicoDerm patch utilized. (10) CKD (chronic kidney disease), stage III Creatinine at baseline. Electrolytes and volume status for monitor. Outpatient nephrology follow-up. Physical Exam Vital Signs: Temp Pulse Resp BP Pulse Ox 98.1 F 60 16 119/76 99 08/12/18 10:42 08/12/18 10:42 08/12/18 10:42 08/12/18 10:42 08/12/18 10:42 General appearance: PRESENT: obese Head exam: PRESENT: atraumatic, normocephalic Respiratory exam: PRESENT: clear to auscultation renu. ABSENT: rales, rhonchi, wheezes GI/Abdominal exam: PRESENT: normal bowel sounds, soft. ABSENT: distended, guarding, mass, organolmegaly, rebound, tenderness Extremities exam: PRESENT: full ROM. ABSENT: calf tenderness, clubbing, pedal edema Neurological exam: PRESENT: alert, awake, oriented to person, oriented to place, oriented to time, oriented to situation, CN II-XII grossly intact. ABSENT: motor sensory deficit Results Laboratory Results: 08/12/18 05:09 08/12/18 05:09 08/11/18 03:10 Blood Blood Culture - Final NO GROWTH IN 5 DAYS 08/10/18 20:57 Blood Blood Culture - Final NO GROWTH IN 5 DAYS 08/10/18 08/11/18 08/11/18 20:57 03:10 03:10 Creatine Kinase 58 CK-MB (CK-2) 0.67 Troponin I 0.023 0.037 NT-Pro-B Natriuret Pep 5080 H 08/11/18 08/11/18 08/11/18 09:03 09:03 15:01 Creatine Kinase 53 52 CK-MB (CK-2) 0.97 Troponin I 0.022 NT-Pro-B Natriuret Pep 08/11/18 15:01 Creatine Kinase CK-MB (CK-2) 1.24 Troponin I 0.019 NT-Pro-B Natriuret Pep Impressions: Chest X-Ray 08/10/18 20:55 IMPRESSION: Abnormal opacity at the right perihilar level and right lower lung could be secondary to asymmetric pulmonary edema, infectious process is a consideration. Recommend follow-up. Qualifiers - * PATIENT BEING DISCHARGED WITH ANY OF THE FOLLOWING DIAGNOSIS: No Acute Heart Failure - Is this a Heart Failure Patient?: No LVEF < 40%?: No- if no continue to question #3
== END 2018-08-12 11:40 | disposition home or self-care (01) | DRG 291 ==
LOC: ER 20:54 → EH 22:57 → 3S 08-11 01:16
PROVIDERS: ADMIT Emergency Medicine; ATTEND Emergency Medicine
PROC: 5A09457 Assistance with Respiratory Ventilation, 24-96 Consecutive Hours, Continuous Positive Airway Pressure (ICD-10-PCS; principal; 2018-08-10)
DX: I13.0 Hypertensive heart and chronic kidney disease with heart failure and stage 1 through stage 4 chronic kidney disease, or unspecified chronic kidney disease (principal); J96.01 Acute respiratory failure with hypoxia; J81.0 Acute pulmonary edema; I50.23 Acute on chronic systolic (congestive) heart failure; Z68.41 Body mass index [BMI] 40.0-44.9, adult; N18.3 Chronic kidney disease, stage 3 (moderate); J44.9 Chronic obstructive pulmonary disease, unspecified; I25.10 Atherosclerotic heart disease of native coronary artery without angina pectoris; E66.01 Morbid (severe) obesity due to excess calories; F17.210 Nicotine dependence, cigarettes, uncomplicated; Z95.0 Presence of cardiac pacemaker; Z79.01 Long term (current) use of anticoagulants; Z79.82 Long term (current) use of aspirin; Z79.899 Other long term (current) drug therapy; Z71.6 Tobacco abuse counseling
CPT/HCPCS: 36415; 36600; 71045; 80048; 80053; 81001; 82550; 82553; 82803; 83605; 83735; 83880; 84484; 85025; 85610; 87040; 87086; 93005; 93010; 94640; 94660; 96365; 96375; 99291; J0692; J1940; J2930; J3370; J3475; J3490; J7614; J7620

== ENCOUNTER 2018-10-04 00:16 | Inpatient (IN) | payer MEDICAID ==
[2018-10-04] MEDS ORDERED: IPRATROPIUM/ALBUTEROL 0.5-2.5 MG/3 ML AMPUL NEB ONE ×4 (00:29→00:31)
--- NOTE | 2018-10-04 00:34 | ER Document Report ---
ED General - General Chief Complaint: Breathing Difficulty Stated Complaint: DIFFICULTY BREATHING Time Seen by Provider: 10/04/18 00:30 Primary Care Provider: YI SANCHEZ DO [Primary Care Provider] - Follow up as needed TRAVEL OUTSIDE OF THE [place] IN LAST 30 DAYS: No - HPI Patient complains to provider of: SOB Notes: 47-year-old female with lengthy history of COPD, asthma and CHF presents in severe respiratory distress. Patient has had difficulty breathing over the last day is gotten worse and worse. She is struggling to get up full sentences. Patient does have history of being intubated in the past for respiratory distress. Denies overt chest pain. Patient chronically wears oxygen 3 L. That is not helping her respiratory status at all. Denies fever chills or cough. Denies any leg swelling or abdominal swelling. - Related Data Allergies/Adverse Reactions: acetaminophen [From Darvocet-N] Allergy (Verified 10/04/18 00:18) egg [Egg] Allergy (Verified 10/04/18 00:18) hydrocodone [From Vicodin] Allergy (Verified 10/04/18 00:18) propoxyphene [From Darvocet-N] Allergy (Verified 10/04/18 00:18) amiodarone Adverse Reaction (Verified 10/04/18 00:18) Respiratory distress diphenhydramine HCl [From Benadryl] Adverse Reaction (Verified 10/04/18 00:18) chest pain, bigemeny rhythm Past Medical History - Social History Smoking Status: Unknown if Ever Smoked Family History: Reviewed & Not Pertinent - Past Medical History Cardiac Medical History: Reports: Hx Congestive Heart Failure, Hx Coronary Artery Disease, Hx Heart Attack, Hx Hypercholesterolemia, Hx Hypertension Denies: Hx DVT, Hx Pulmonary Embolism Pulmonary Medical History: Reports: Hx Bronchitis, Hx COPD, Hx Pneumonia, Hx Intubation, Hx Respiratory Failure, Hx Sleep Apnea Denies: Hx Asthma Neurological Medical History: Denies: Hx Cerebrovascular Accident, Hx Seizures Endocrine Medical History: Denies: Hx Diabetes Mellitus Type 1, Hx Diabetes Mellitus Type 2, Hx Hyperthyroidism, Hx Hypothyroidism Renal/ Medical History: Reports: Hx Kidney Stones, Hx Renal Insufficiency. Denies: Hx Peritoneal Dialysis GI Medical History: Reports: Hx Gastroesophageal Reflux Disease. Denies: Hx Cirrhosis, Hx Crohn's Disease, Hx Hepatitis, Hx Hiatal Hernia, Hx Ulcer, Hx Ulcerative Colitis Musculoskeletal Medical History: Denies Hx Arthritis, Denies Hx Gout Skin Medical History: Denies Hx Eczema, Denies Hx Psoriasis Psychiatric Medical History: Reports: Hx Anxiety, Hx Depression, Hx Schizophr enia Infectious Medical History: Denies: Hx Hepatitis Past Surgical History: Reports: Hx Cardiac Catheterization - multiple stents, Hx Cardiac Surgery - pacemaker/icd, Hx Section, Hx Coronary Artery Bypass Graft - 2006, Hx Coronary Stent - Multiple, Hx Hysterectomy, Hx Open Heart Surgery - BYPASS 2006, Hx Pacemaker - AICD, Hx Tubal Ligation. Denies: Hx Mastectomy - Immunizations Hx Diphtheria, Pertussis, Tetanus Vaccination: Yes Hx Pneumococcal Vaccination: 04/04/12 Review of Systems - Review of Systems Notes: REVIEW OF SYSTEMS: CONSTITUTIONAL: -fevers, -chills EENT: -eye pain, -difficulty swallowing, -nasal congestion CARDIOVASCULAR: -chest pain, -syncope. RESPIRATORY: Increased work of breathing, shortness of breath GASTROINTESTINAL: -abdominal pain, -nausea, -vomiting, -diarrhea GENITOURINARY: -dysuria, -hematuria MUSCULOSKELETAL: -back pain, -neck pain SKIN: -rash or skin lesions. HEMATOLOGIC: -easy bruising or bleeding. LYMPHATIC: -swollen, enlarged glands. NEUROLOGICAL: -altered mental status or loss of consciousness, -headache, - neurologic symptoms PSYCHIATRIC: -anxiety, -depression. ALL OTHER SYSTEMS REVIEWED AND NEGATIVE. Physical Exam - Vital signs Vitals: Pulse BP Pulse Ox 91 214/91 H 88 L 10/04/18 00:25 10/04/18 00:25 10/04/18 00:25 - Notes Notes: PHYSICAL EXAMINATION: GENERAL: Severe acute distress, diaphoretic HEAD: Atraumatic, normocephalic. EYES: Pupils equal round and reactive to light, extraocular movements intact, sclera anicteric, conjunctiva are normal. ENT: nares patent, oropharynx clear without exudates. Moist mucous membranes. NECK: Sensory muscles noted in breathing LUNGS: No respiratory distress, decreased air movement basilar crackles HEART: tachycardia, without murmurs ABDOMEN: Soft, nontender, normoactive bowel sounds. No guarding, no rebound. No masses appreciated. EXTREMITIES: Normal range of motion, no pitting or edema. No cyanosis. NEUROLOGICAL: Cranial nerves grossly intact. Normal speech, normal gait. Edyta l sensory and motor exams. PSYCH: Normal mood, normal affect. SKIN: Warm, Dry, normal turgor, no rashes or lesions noted. Course - Re-evaluation Re-evalutation: 10/04/18 00:52 Critically ill-appearing female presents in severe respiratory distress. Patient has a lengthy history of intubation secondary to respiratory failure. Patient emergently has ABG drawn, stat portal chest x-ray is placed on BiPAP due to profound work of breathing. Lab work-up initiated. EKG shows paced rhythm with no ischemic changes. 10/04/18 02:14 Patient having severe respiratory distress emergently placed on BiPAP., Stat portable chest x-ray shows pulmonary edema. Will initiate IV Lasix therapy. VBG shows continued hypoxia. Patient initiated nitroglycerin drip to reduce preload, captopril given orally to reduce afterload. Given antiemetics to the nausea. Patient markedly improved. Discussed with patient her respiratory status. Improved. At this time decision made no need for intubation. Does have history of intubation in the past. At this time she does not require it. She will require close monitoring in her ICU. She is proBNP greater than 11,000. No elevated troponin, no ST elevations. No anemia. Afebrile. - Vital Signs Vital signs: Temp Pulse Resp BP Pulse Ox 99.5 F 88 35 H 164/106 H 90 L 10/04/18 02:00 10/04/18 00:27 10/04/18 02:05 10/04/18 02:05 10/04/18 02:05 - Laboratory Result Diagrams: 10/04/18 01:05 10/04/18 01:05 Laboratory results interpreted by me: 10/04/18 10/04/18 10/04/18 00:45 01:05 01:05 Hgb 11.8 L MCHC 31.7 L RDW 18.4 H ABG pO2 68.5 L Creatinine 1.35 H Est GFR ( Amer) 51 L Est GFR (Non-Af Amer) 42 L Glucose 190 H NT-Pro-B Natriuret Pep 10/04/18 01:05 Hgb MCHC RDW ABG pO2 Creatinine Est GFR ( Amer) Est GFR (Non-Af Amer) Glucose NT-Pro-B Natriuret Pep 05536 H - EKG Interpretation by Me EKG shows normal: Sinus rhythm Rate: Normal Rhythm: NSR When compared to previous EKG there are: No significant change Additional EKG results interpreted by me: 10/04/18 00:52 Atrial paced rhythm 82 bpm Critical Care Note - Critical Care Note Total time excluding time spent on procedures (mins): 37 Discharge - Discharge Clinical Impression: Hypoxia Respiratory failure Qualifiers: Chronicity: acute Respiratory failure complication: hypoxia Qualified Code(s): J96.01 - Acute respiratory failure with hypoxia CHF (congestive heart failure) Qualifiers: Heart failure type: systolic Heart failure chronicity: acute on chronic Qualified Code(s): I50.23 - Acute on chronic systolic (congestive) heart failure Condition: Critical Disposition: ADMITTED INPATIENT Admitting Provider: Chang (Hospitalist) Unit Admitted: ICU Referrals: YI SANCHEZ DO [Primary Care Provider] - Follow up as needed
[2018-10-04] MEDS ORDERED: FUROSEMIDE INJ/PF 40 MG/4 ML SDV IV ONE (00:49)
[2018-10-04] MEDS ORDERED: ONDANSETRON HCL INJ/PF 4 MG/2 ML SDV ONE ×2 (00:57→01:55)
--- NOTE | 2018-10-04 01:12 | RADIOLOGY REPORT (SQ) ---
CLINICAL HISTORY: SOB COMPARISON: 08/10/2018. TECHNIQUE: XR CHEST 1 VIEW 10/04/2018 12:30 AM CDT FINDINGS: The heart is enlarged. Left AICD is present. Sternotomy was performed. There is right basilar airspace disease. There is no pleural effusion. There is no pneumothorax. There are no acute osseous findings. IMPRESSION: Persistent right basilar pneumonia.
[2018-10-04] MEDS ORDERED: NITROGLYCERIN/D5W 50 MG/250 ML RTUINJ IV PRN ×2 (01:15→03:35)
[2018-10-04 01:16] LABS: ABSOLUTE BASOPHILS # (AUTO) 0.1 10^3/uL (0.0-0.2); ABSOLUTE LYMPHOCYTES (AUTO) 1.7 10^3/uL (0.5-4.7); ABSOLUTE MONOCYTES (AUTO) 0.6 10^3/uL (0.1-1.4); ABSOLUTE NEUT (AUTO) 6.5 10^3/uL (1.7-8.2); EOSINOPHILS % (AUTO) 0.1 % (0-6); HEMATOCRIT 37.4 % (36.0-47.0); HEMOGLOBIN 11.8 g/dL (12.0-15.5); LYMPHOCYTES % (AUTO) 18.7 % (13-45); MEAN CORPUSCULAR HGB CONC 31.7 g/dL (32.0-36.0); MEAN CORPUSCULAR VOLUME 88 fl (80-97); MONOCYTES % (AUTO) 7.1 % (3-13); PLATELET COUNT 368 10^3/uL (150-450); RED BLOOD COUNT 4.24 10^6/uL (3.72-5.28); RED CELL DISTRIBUTION WIDTH 18.4 % (11.5-14.0); SEGMENTED NEUTROPHILS % (AUTO) 73.1 % (42-78); TOTAL CELLS COUNTED % (AUTO) 100 %; WHITE BLOOD COUNT 8.9 10^3/uL (4.0-10.5)
[2018-10-04] MEDS ORDERED: CAPTOPRIL 12.5 MG TABLET PO ONE (01:17)
[2018-10-04] MEDS ORDERED: NITROGLYCERIN/D5W 50 MG/250 ML RTUINJ IV ONE (01:35)
[2018-10-04] MEDS ORDERED: CAPTOPRIL 12.5 MG TABLET ONE (01:36)
[2018-10-04 01:40] LABS: ANION GAP 12 (5-19); BLOOD UREA NITROGEN 14 mg/dL (7-20); CALCIUM 9.1 mg/dL (8.4-10.2); CARBON DIOXIDE 24 mmol/L (22-30); CHLORIDE 105 mmol/L (98-107); GLUCOSE 190 mg/dL (75-110); POTASSIUM 3.7 mmol/L (3.6-5.0)
[2018-10-04 01:53] LABS: ARTERIAL BLOOD BASE EXCESS -0.4 mmol/L; ARTERIAL BLOOD FIO2 40%; ARTERIAL BLOOD H2CO3 1.06 mmol/L (1.05-1.35); ARTERIAL BLOOD HCO3 23.3 mmol/L (20-24); ARTERIAL BLOOD O2 SATURATION 94.5 % (94-98); ARTERIAL BLOOD PCO2 35.1 mmHg (35-45); ARTERIAL BLOOD PH 7.44 (7.35-7.45); ARTERIAL BLOOD PO2 68.5 mmHg (80-100); ARTERIAL BLOOD TOTAL CO2 24.4 mmol/L (21-25)
[2018-10-04 01:54] LABS: TROPONIN I 0.04 ng/mL
[2018-10-04] MEDS ORDERED: NITROGLYCERIN 2% OINTMENT 1 GM PACKET ONE (01:55)
[2018-10-04] MEDS ORDERED: NITROGLYCERIN 2% OINTMENT 1 GM PACKET TP ONE (02:00)
[2018-10-04] MEDS ORDERED: MORPHINE SULFATE 10 MG/ML INJ IV ONE ×2 (02:34→03:19)
[2018-10-04] MEDS ORDERED: ONDANSETRON 4 MG TAB.RAPDIS PO PRN (03:22)
[2018-10-04] MEDS ORDERED: MAG HYDROX/AL HYDROX/SIMETH SUSP 30 ML UDCUP PO PRN (03:22)
[2018-10-04] MEDS ORDERED: MAGNESIUM HYDROXIDE SUSP 30 ML UDCUP PO PRN (03:22)
--- NOTE | 2018-10-04 05:32 | PDOC H&P ---
History of Present Illness Admission Date/PCP: 10/04/18 02:37 YI SANCHEZ DO Patient complains of: Dyspnea History of Present Illness: FRANKI DEL ROSARIO is a 47 year old female who presented to the emergency room with acute severe dyspnea. She admits shortness of breath rapidly worsening over the course of the day and becoming severe on the evening of 10/03/2018. She admits accompanying orthopnea but denies other accompanying or associated signs and symptoms. She admits numerous prior similar episodes with exacerbations of her oxygen dependent (3L/min continuous) COPD or sudden worsening of her congestive heart failure. She has not identified any aggravating or ameliorating factors for her acute dyspnea. In the emergency room she was found to have a BNP greater than the upper measurable limit of 11,000 and a chest x-ray showing cardiomegaly with acute pulmonary edema. She was placed on BiPAP therapy and subsequently moved to the ICU for further evaluation and treatment. Past Medical History Cardiac Medical History: Reports: Atrial Fibrillation, Congestive Heart Failure, Coronary Artery Disease, Myocardial Infarction, Hyperlipidema, Hypertension Denies: DVT, Pulmonary Embolism Pulmonary Medical History: Reports: Bronchitis, Chronic Obstructive Pulmonary Disease (COPD), Intubation, Pneumonia, Respiratory Failure, Sleep Apnea Denies: Asthma EENT Medical History: Denies: Cataracts, Ears - Hearing aids Neurological Medical History: Reports: Ischemic CVA Denies: Hemorrhagic CVA, Multiple Sclerosis, Seizures Endocrine Medical History: Denies: Diabetes Mellitus Type 1, Diabetes Mellitus Type 2, Hyperthyroidism, Hypothyroidism Renal/ Medical History: Denies: Chronic Kidney Disease, Nephrolithiasis Malignancy Medical History: Reports: None GI Medical History: Reports: Gastroesophageal Reflux Disease Denies: Cirrhosis, Crohn's Disease, Hepatitis, Hiatal Hernia, Ulcerative Colitis Musculoskeltal Medical History: Denies: Arthritis, Gout Skin Medical History: Denies: Eczema, Psoriasis Psychiatric Medical History: Reports: Depression, Tobacco Dependency Denies: Alcohol Dependency, Substance Abuse Traumatic Medical History: Reports: None Hematology: Reports: Anemia - Chronic, Bleeding Tendencies - "On blood thinners" Infectious Medical History: Reports: None Past Surgical History Past Surgical History: Reports: Cardiac Catheterization - multiple, Section, Coronary Artery Bypass Graft - 2006, Coronary Stent - Multiple, Hysterectomy, Pacemaker - AICD, Tubal Ligation Social History Information Source: Patient Lives with: Family Smoking Status: Former Smoker - Reports she quit smoking since her last visit. Frequency of Alcohol Use: Occasional Hx Recreational Drug Use: Yes Drugs: Marijuana Hx Prescription Drug Abuse: No - Advance Directive Resuscitation Status: Full Code Surrogate healthcare decision maker:: Aparna McKoy Family History Family History: CAD, CVA, DM, Hypertension, Malignancy, Other - Kidney disease Parental Family History Reviewed: Yes Children Family History Reviewed: No Sibling(s) Family History Reviewed.: Yes Medication/Allergy Home Medications: Amiodarone HCl [Cordarone 200 mg Tablet] 400 mg PO DAILY 08/10/18 Apixaban [Eliquis 5 mg Tablet] 5 mg PO Q12 08/10/18 Aspirin [Adult Low Dose Aspirin EC] 81 mg PO DAILY 08/10/18 Atorvastatin Calcium [Lipitor 80 mg Tablet] 80 mg PO QHS 08/10/18 Buspirone HCl [Buspar 10 mg Tablet] 10 mg PO Q12 08/10/18 Famotidine [Pepcid 40 mg Tablet] 40 mg PO BID 08/10/18 Furosemide [Lasix 80 mg Tablet] 80 mg PO Q12 08/10/18 Isosorbide Mononitrate [Imdur 60 mg Tablet.er] 60 mg PO DAILY 08/10/18 Melatonin [Melatonin 1 mg Tablet] 1 mg PO QHS 08/10/18 Metoprolol Succinate [Toprol Xl 50 mg Tab.sr] 50 mg PO DAILY 08/10/18 Paroxetine HCl [Paxil 20 mg Tablet] 20 mg PO DAILY 08/10/18 Sacubitril/Valsartan [Entresto 49 mg/51 mg Tablet] 1 tab PO Q12 08/10/18 Allergies/Adverse Reactions: acetaminophen [From Darvocet-N] Allergy (Verified 10/04/18 00:18) egg [Egg] Allergy (Verified 10/04/18 00:18) hydrocodone [From Vicodin] Allergy (Verified 10/04/18 00:18) propoxyphene [From Darvocet-N] Allergy (Verified 10/04/18 00:18) amiodarone Adverse Reaction (Verified 10/04/18 00:18) Respiratory distress diphenhydramine HCl [From Benadryl] Adverse Reaction (Verified 10/04/18 00:18) chest pain, bigemeny rhythm Review of Systems Constitutional: ABSENT: chills, fever(s) Eyes: ABSENT: visual disturbances, other - Ocular pain Ears: ABSENT: hearing changes, other - Ear pain Nose, Mouth, and Throat: ABSENT: mouth pain, sore throat Cardiovascular: PRESENT: dyspnea on exertion, orthropnea. ABSENT: chest pain, edema, palpitations Respiratory: PRESENT: dyspnea. ABSENT: cough Gastrointestinal: ABSENT: abdominal pain, constipation, diarrhea, nausea, vomiting Genitourinary: ABSENT: dysuria, hematuria Musculoskeletal: ABSENT: joint swelling, muscle weakness Integumentary: ABSENT: pruritus, rash Neurological: ABSENT: confusion, convulsions, focal weakness, memory loss, syncope Psychiatric: ABSENT: anxiety, depression Endocrine: ABSENT: cold intolerance, heat intolerance Hematologic/Lymphatic: PRESENT: easy bleeding - "On blood thinners", easy bruising - "On blood thinners" Physical Exam Vital Signs: Temp Pulse Resp BP Pulse Ox 99.5 F 88 35 H 164/106 H 90 L 10/04/18 02:00 10/04/18 00:27 10/04/18 02:05 10/04/18 02:05 10/04/18 02:05 Intake & Output 10/02/18 10/03/18 10/04/18 23:59 23:59 23:59 Weight 101.151 kg General appearance: PRESENT: cooperative, mild distress - Mild respiratory distress, other - On BiPAP Head exam: PRESENT: atraumatic, normocephalic Eye exam: PRESENT: conjunctiva pink. ABSENT: conjunctival injection, scleral icterus Ear exam: PRESENT: normal external ear exam. ABSENT: bleeding, drainage Mouth exam: PRESENT: dry mucosa, neck supple Neck exam: PRESENT: JVD. ABSENT: thyromegaly, tracheal deviation Respiratory exam: PRESENT: prolonged expiratory phas - Mildly prolonged expiratory phase, rales - Lower one third of both lungs more prominent on the right than the left, symmetrical, tachypnea Cardiovascular exam: PRESENT: gallop - S4 gallop, RRR. ABSENT: clicks, rubs Pulses: PRESENT: normal radial pulses, normal dorsalis pedis pul Vascular exam: PRESENT: normal capillary refill. ABSENT: pallor GI/Abdominal exam: PRESENT: normal bowel sounds, soft. ABSENT: tenderness Rectal exam: PRESENT: deferred Extremities exam: ABSENT: joint swelling, pedal edema Musculoskeletal exam: PRESENT: full ROM, normal inspection. ABSENT: tenderness Neurological exam: PRESENT: alert, oriented to person, oriented to place, oriented to time, oriented to situation, CN II-XII grossly intact. ABSENT: motor sensory deficit Psychiatric exam: PRESENT: appropriate affect, normal mood Skin exam: PRESENT: dry, intact, warm. ABSENT: jaundice, rash, urticaria Results Laboratory Results: 10/04/18 01:05 10/04/18 01:05 10/04/18 10/04/18 10/04/18 00:45 01:05 01:05 WBC 8.9 RBC 4.24 Hgb 11.8 L Hct 37.4 MCV 88 MCH 28.0 MCHC 31.7 L RDW 18.4 H Plt Count 368 Seg Neutrophils % 73.1 Lymphocytes % 18.7 Monocytes % 7.1 Eosinophils % 0.1 Basophils % 1.0 Absolute Neutrophils 6.5 Absolute Lymphocytes 1.7 Absolute Monocytes 0.6 Absolute Eosinophils 0.0 Absolute Basophils 0.1 Carbonic Acid 1.06 HCO3/H2CO3 Ratio 21:1 ABG pH 7.44 ABG pCO2 35.1 ABG pO2 68.5 L ABG HCO3 23.3 ABG O2 Saturation 94.5 ABG Base Excess -0.4 FiO2 40% Sodium 141.1 Potassium 3.7 Chloride 105 Carbon Dioxide 24 Anion Gap 12 BUN 14 Creatinine 1.35 H Est GFR ( Amer) 51 L Est GFR (Non-Af Amer) 42 L Glucose 190 H Calcium 9.1 10/04/18 01:05 Troponin I 0.040 NT-Pro-B Natriuret Pep 60477 H Impressions: Chest X-Ray 10/04/18 00:30 IMPRESSION: Persistent right basilar pneumonia. Assessment and Plan - Diagnosis (1) Acute pulmonary edema with congestive heart failure Is this a current diagnosis for this admission?: Yes Plan: Patient is admitted to the ICU and she is treated with IV Lasix 80 mg, IV morp rex sulfate 2 mg, and intravenous nitroglycerin infusion and BiPAP respiratory support as initial therapy. A chest x-ray will be repeated in the morning. (2) Acute respiratory failure with hypoxia Is this a current diagnosis for this admission?: Yes Plan: Patient is treated initially with BiPAP support and will be intubated if necessary to maintain adequate oxygenation. (3) CAD (coronary artery disease) Qualifiers: Coronary Disease-Associated Artery/Lesion type: lime artery [place] vs. transplanted heart: lime heart Associated angina: without angina Qualified Code(s): I25.10 - Atherosclerotic heart disease of lime coronary artery without angina pectoris Is this a current diagnosis for this admission?: Yes Plan: Patient will be continued on her usual medications for her coronary artery disease. She will be on a cardiac cath technologist in the ICU. Further assessments of her coronary status will include serial cardiac enzymes and EKGs. (4) COPD (chronic obstructive pulmonary disease) Qualifiers: COPD type: unspecified COPD Qualified Code(s): J44.9 - Chronic obstructive pulmonary disease, unspecified Is this a current diagnosis for this admission?: Yes Plan: Patient be continued on her usual COPD medications or a reasonable formulary substitution thereof. A pulmonary toilet will be instituted while she is in the ICU. (5) Cardiomyopathy Qualifiers: Cardiomyopathy type: ischemic Qualified Code(s): I25.5 - Ischemic cardiomyopathy Is this a current diagnosis for this admission?: Yes Plan: Patient be continued on her usual medications for treatment of her cardiomyopathy. Her cardiac status to be monitored closely in the ICU. (6) HTN (hypertension) Qualifiers: Hypertension type: essential hypertension Qualified Code(s): I10 - Essential (primary) hypertension Is this a current diagnosis for this admission?: Yes Plan: Patient's blood pressure monitored closely throughout her hospital course. Initially her blood pressure will be treated with an intravenous infusion of nitroglycerin as part of treating her acute pulmonary edema. (7) Hyperlipidemia Qualifiers: Hyperlipidemia type: unspecified Qualified Code(s): E78.5 - Hyperlipidemia, unspecified Is this a current diagnosis for this admission?: Yes Plan: Patient was maintained on a cardiac diet and will continue to receive her lipid control medications throughout her hospital course. (8) Marijuana smoker Is this a current diagnosis for this admission?: Yes Plan: Patient has been advised that smoking of marijuana or any other substance is particularly injurious to her pulmonary status due to her very minimal available pulmonary reserve. - Time Time Spent with patient: 15-24 minutes Medications reviewed and adjusted accordingly: Yes Anticipated discharge: Home - Inpatient Certification Based on my medical assessment, after consideration of the patient's comorbidi ties, presenting symptoms, or acuity I expect that the services needed warrant INPATIENT care.: Yes I certify that my determination is in accordance with my understanding of [facility]'s requirements for reasonable and necessary INPATIENT services [42 CFR 412.3e].: Yes Medical Necessity: Significant Comorbidiites Make Outpatient Treatment Too Risky, Need Close Monitoring Due to Risk of Patient Decompensation, Need For Continuous Telemetry Monitoring, Risk of Complication if Not Cared For in Hospital
[2018-10-04 06:48] LABS: ARTERIAL BLOOD BASE EXCESS 0 mmol/L; ARTERIAL BLOOD H2CO3 1.47 mmol/L (1.05-1.35); ARTERIAL BLOOD HCO3 26.1 mmol/L (20-24); ARTERIAL BLOOD O2 SATURATION 90.9 % (94-98); ARTERIAL BLOOD PCO2 48.9 mmHg (35-45); ARTERIAL BLOOD PH 7.35 (7.35-7.45); ARTERIAL BLOOD PO2 63.2 mmHg (80-100); ARTERIAL BLOOD TOTAL CO2 27.6 mmol/L (21-25)
[2018-10-04 06:49] LABS: ARTERIAL BLOOD FIO2 50%
--- NOTE | 2018-10-04 07:35 | EKG REPORT ---
SEVERITY:- ABNORMAL ECG - ATRIAL-SENSED VENTRICULAR-PACED RHYTHM : Confirmed by: Kirk Weeks MD 04-Oct-2018 07:34:45
[2018-10-04 08:02] LABS: ANION GAP 6 (5-19); BLOOD UREA NITROGEN 13 mg/dL (7-20); CALCIUM 8.7 mg/dL (8.4-10.2); CARBON DIOXIDE 30 mmol/L (22-30); CHLORIDE 105 mmol/L (98-107); GLUCOSE 127 mg/dL (75-110); POTASSIUM 3.7 mmol/L (3.6-5.0)
[2018-10-04 08:16] LABS: CREATINE KINASE MB 1.01 ng/mL (<4.55); TROPONIN I 0.05 ng/mL
[2018-10-04] MEDS: IPRATROPIUM BROMIDE 0.02% NEB 0.5 MG/2.5 ML AMPUL NEB SCH ×2 (08:23→16:38)
[2018-10-04] MEDS: BUDESONIDE NEB 0.5 MG/2 ML AMPUL NEB SCH ×2 (08:23→19:58)
[2018-10-04] MEDS: LEVALBUTEROL HCL NEB 1.25 MG/3 ML AMPUL NEB SCH ×2 (08:23→16:38)
--- NOTE | 2018-10-04 09:01 | PDOC PROGRESS REPORT ---
Subjective Progress Note for:: 10/04/18 Subjective:: 47 year old female who presented to the emergency room with acute severe dyspnea. She admits shortness of breath rapidly worsening over the course of the day and becoming severe on the evening of 10/03/2018. She admits accompanying orthopnea but denies other accompanying or associated signs and symptoms. She admits numerous prior similar episodes with exacerbations of her oxygen dependent (3L/min continuous) COPD or sudden worsening of her congestive heart failure. She has not identified any aggravating or ameliorating factors for her acute dyspnea. In the emergency room she was found to have a BNP greater than the upper measurable limit of 11,000 and a chest x-ray showing cardiomegaly with acute pulmonary edema. She was placed on BiPAP therapy and subsequently moved to the ICU for further evaluation and treatment. 10/[id number]-old female admitted with severe shortness of breath secondary to acute exacerbation of chronic congestive heart failure. She has history of cardiomyopathy with EF of 20 to 25%, she is also history of paroxysmal atrial fibrillation on apixaban, history of ventricular tachycardia and AICD, obesity, COPD, history of coronary artery disease with a stent placement, history of IA admitted for shortness of breath. Presently on BiPAP. She is also came in with hypertensive emergency on nitro drip latest blood pressure is 138/80. Plan is to discontinue nitro drip. Presently on torsemide 100 mg p.o. daily. No acute events since the admission. Reason For Visit: ACUTE PULMONARY EDEMA, ACUTE RESPIRATORY FAILURE Physical Exam Vital Signs: Temp Pulse Resp BP Pulse Ox 98.2 F 60 20 152/115 H 95 10/04/18 05:07 10/04/18 08:24 10/04/18 08:24 10/04/18 05:56 10/04/18 08:24 Intake & Output 10/03/18 10/04/18 10/05/18 06:59 06:59 06:59 Intake Total 203 Output Total 400 Balance -197 Weight 113.1 kg General appearance: PRESENT: no acute distress, cooperative, other - On BiPAP Head exam: PRESENT: atraumatic Eye exam: PRESENT: PERRLA Mouth exam: PRESENT: moist, tongue midline Teeth exam: PRESENT: poor dentation Neck exam: ABSENT: carotid bruit, JVD, lymphadenopathy, thyromegaly Respiratory exam: PRESENT: decreased breath sounds. ABSENT: rhonchi, wheezes Cardiovascular exam: PRESENT: RRR. ABSENT: diastolic murmur, rubs, systolic murmur GI/Abdominal exam: PRESENT: normal bowel sounds, soft. ABSENT: distended, guarding, mass, organolmegaly, rebound, tenderness Rectal exam: PRESENT: deferred Neurological exam: PRESENT: alert, awake, oriented to person, oriented to place, oriented to time, oriented to situation, CN II-XII grossly intact. ABSENT: motor sensory deficit Psychiatric exam: PRESENT: appropriate affect, normal mood. ABSENT: homicidal ideation, suicidal ideation Results Laboratory Results: 10/04/18 01:05 10/04/18 07:30 10/04/18 10/04/18 10/04/18 00:45 01:05 01:05 WBC 8.9 RBC 4.24 Hgb 11.8 L Hct 37.4 MCV 88 MCH 28.0 MCHC 31.7 L RDW 18.4 H Plt Count 368 Seg Neutrophils % 73.1 Lymphocytes % 18.7 Monocytes % 7.1 Eosinophils % 0.1 Basophils % 1.0 Absolute Neutrophils 6.5 Absolute Lymphocytes 1.7 Absolute Monocytes 0.6 Absolute Eosinophils 0.0 Absolute Basophils 0.1 Carbonic Acid 1.06 HCO3/H2CO3 Ratio 21:1 ABG pH 7.44 ABG pCO2 35.1 ABG pO2 68.5 L ABG HCO3 23.3 ABG O2 Saturation 94.5 ABG Base Excess -0.4 FiO2 40% Sodium 141.1 Potassium 3.7 Chloride 105 Carbon Dioxide 24 Anion Gap 12 BUN 14 Creatinine 1.35 H Est GFR ( Amer) 51 L Est GFR (Non-Af Amer) 42 L Glucose 190 H Calcium 9.1 Magnesium 10/04/18 10/04/18 05:43 07:30 WBC RBC Hgb Hct MCV MCH MCHC RDW Plt Count Seg Neutrophils % Lymphocytes % Monocytes % Eosinophils % Basophils % Absolute Neutrophils Absolute Lymphocytes Absolute Monocytes Absolute Eosinophils Absolute Basophils Carbonic Acid 1.47 H HCO3/H2CO3 Ratio 17:1 ABG pH 7.35 ABG pCO2 48.9 H ABG pO2 63.2 L ABG HCO3 26.1 H ABG O2 Saturation 90.9 L ABG Base Excess 0 FiO2 50% Sodium 141.1 Potassium 3.7 Chloride 105 Carbon Dioxide 30 Anion Gap 6 BUN 13 Creatinine 1.36 H Est GFR ( Amer) 51 L Est GFR (Non-Af Amer) 42 L Glucose 127 H Calcium 8.7 Magnesium 1.9 10/04/18 10/04/18 10/04/18 01:05 07:30 07:30 Creatine Kinase 84 CK-MB (CK-2) 1.01 Troponin I 0.040 0.050 NT-Pro-B Natriuret Pep [id number] H Impressions: Chest X-Ray 10/04/18 00:30 IMPRESSION: Persistent right basilar pneumonia. Assessment and Plan - Diagnosis (1) Acute on chronic systolic (congestive) heart failure Is this a current diagnosis for this admission?: Yes Plan: 10/04/2018-patient admitted with acute on chronic systolic heart failure with EF of 20 to 25%. Patient is on Entresto and also on torsemide 100 mg p.o. at this time. Plan is to add Lasix 40 mg IV twice daily. His catheter was requested planning to arrange for strict input output chart and a fluid restriction 1500 cc/day. (2) Pneumonia Qualifiers: Pneumonia type: due to unspecified organism Laterality: right Lung location: lower lobe of lung Qualified Code(s): J18.1 - Lobar pneumonia, unspecified organism Is this a current diagnosis for this admission?: Yes Plan: 10/04/2018-chest x-ray indicated persistent right lower lobe pneumonia blood cultures are requested started on IV Rocephin and IV Zithromax. Likely community-acquired pneumonia. Gram-positive organisms may be responsible (3) Acute respiratory failure with hypoxia Is this a current diagnosis for this admission?: Yes Plan: Patient is treated initially with BiPAP support and will be intubated if necessary to maintain adequate oxygenation. 10/04/2018-patient admitted with the acute on chronic respiratory failure with hypoxia most likely secondary to right lower lobe pneumonia and exacerbation of CHF. Started on IV Rocephin and IV Zithromax blood cultures requested. ABG this morning pH is 7.35/PCO2 49 PO2 63 bicarb is 27 this is on 50% oxygen. Plan is to continue the nebulizer treatments. (4) HTN (hypertension) Qualifiers: Hypertension type: essential hypertension Qualified Code(s): I10 - Essential (primary) hypertension Is this a current diagnosis for this admission?: Yes Plan: Patient's blood pressure monitored closely throughout her hospital course. Initially her blood pressure will be treated with an intravenous infusion of nitroglycerin as part of treating her acute pulmonary edema. 10/04/2018-patient came in with hypertensive emergency on nitroglycerin drip until this morning. Blood pressure is improved to 138/80 she also received 40 mg of IV Lasix in the ER she was started on torsemide 100 mg p.o. daily. Plan is to discontinue nitro drip. pt is on Entresto. (5) Morbid obesity Is this a current diagnosis for this admission?: No Plan: 10/04/2018-patient BMI is more than 41 diet exercise weight loss lifestyle modifications are discussed with the patient. (6) CKD (chronic kidney disease) Is this a current diagnosis for this admission?: No Plan: 10/04/2018-patient has history of chronic kidney disease creatinine is 1.35. Stable. (7) Cardiomyopathy Qualifiers: Cardiomyopathy type: ischemic Qualified Code(s): I25.5 - Ischemic cardiomyopathy Is this a current diagnosis for this admission?: Yes Plan: Patient be continued on her usual medications for treatment of her cardiomyopathy. Her cardiac status to be monitored closely in the ICU. 10/04/2018-patient has history of ischemic and dilated cardiomyopathy plan is to continue Entresto and beta-blockers. (8) Atrial fibrillation Is this a current diagnosis for this admission?: No Plan: 10/04/2018-patient has history of small atrial fibrillation on apixaban plan is to continue the present management. (9) Ventricular tachycardia Is this a current diagnosis for this admission?: No Plan: 10/04/2018-patient has history of ventricular tachycardia has AICD. - Time Time Spent with patient: 25-34 minutes Medications reviewed and adjusted accordingly: Yes Anticipated discharge: Home
--- NOTE | 2018-10-04 09:13 | EKG REPORT ---
SEVERITY:- ABNORMAL ECG - ATRIAL-SENSED VENTRICULAR-PACED RHYTHM : Confirmed on behalf of: Kirk Weeks MD 04-Oct-2018 09:12:34
[2018-10-04] MEDS ORDERED: FUROSEMIDE INJ/PF 40 MG/4 ML SDV IV SCH (10:00)
[2018-10-04] MEDS ORDERED: SACUBITRIL/VALSARTAN 49 MG/51 MG TABLET PO SCH (10:00)
[2018-10-04] MEDS ORDERED: TORSEMIDE 20 MG TABLET PO SCH (10:00)
[2018-10-04] MEDS ORDERED: CEFTRIAXONE 2 GM/D5W RTU 2 GM/50 ML RTUPB IV SCH (10:00)
[2018-10-04] MEDS ORDERED: AZITHROMYCIN INJ 500 MG VIAL IV SCH (10:00)
[2018-10-04] MEDS: PAROXETINE HCL 20 MG TABLET PO SCH (10:56)
[2018-10-04] MEDS: BUSPIRONE HCL 10 MG TABLET PO SCH ×2 (10:56→21:09)
[2018-10-04] MEDS: APIXABAN 5 MG TABLET PO SCH ×2 (10:57→17:14)
[2018-10-04] MEDS: DOCUSATE SODIUM 100 MG CAPSULE PO SCH ×2 (11:04→17:14)
[2018-10-04] MEDS: ASPIRIN 81 MG TABLET, ENT COATED PO SCH (11:04)
[2018-10-04] MEDS: FAMOTIDINE 20 MG TABLET PO SCH ×2 (11:04→21:09)
[2018-10-04] MEDS: METOPROLOL SUCCINATE 50 MG TAB.SR.24H PO SCH (11:04)
[2018-10-04] MEDS: CEFTRIAXONE SODIUM 2,000 MG in DEXTROSE 5%-WATER 100 ML IV SCH (11:05)
[2018-10-04] MEDS: AZITHROMYCIN 500 MG in DEXTROSE 5%-WATER 250 ML IV SCH (11:05)
[2018-10-04] MEDS: SACUBITRIL/VALSARTAN 49 MG/51 MG TABLET PO SCH ×2 (11:07→21:08)
[2018-10-04] MEDS: ACETAMINOPHEN 325 MG TABLET PO PRN (11:59)
--- NOTE | 2018-10-04 12:18 | EKG REPORT ---
SEVERITY:- ABNORMAL ECG - ATRIAL-SENSED VENTRICULAR-PACED RHYTHM : Confirmed by: Kirk Weeks MD 04-Oct-2018 12:18:18
[2018-10-04] MEDS ORDERED: HYDRALAZINE HCL INJ/PF 20 MG/1 ML SDV IV PRN (12:21)
[2018-10-04] MEDS: PANTOPRAZOLE SODIUM 40 MG TABLET.DR PO SCH ×2 (13:12→17:14)
[2018-10-04 14:23] LABS: CREATINE KINASE MB 1.25 ng/mL (<4.55); TROPONIN I 0.04 ng/mL
[2018-10-04] MEDS: MORPHINE SULFATE 10 MG/ML INJ IV PRN (19:13)
[2018-10-04 19:48] LABS: CREATINE KINASE MB 1.27 ng/mL (<4.55); TROPONIN I 0.028 ng/mL
[2018-10-04] MEDS: OXYCODONE-ACETAMINOPHEN 5-325 MG TABLET PO PRN (21:08)
[2018-10-04] MEDS: ATORVASTATIN CALCIUM 80 MG TABLET PO SCH (21:09)
[2018-10-04] MEDS: CLONAZEPAM 1 MG TABLET PO SCH (21:09)
[2018-10-04] MEDS: MELATONIN 1 MG TABLET PO SCH (21:09)
[2018-10-05] MEDS: IPRATROPIUM BROMIDE 0.02% NEB 0.5 MG/2.5 ML AMPUL NEB SCH ×3 (00:13→16:54)
[2018-10-05] MEDS: LEVALBUTEROL HCL NEB 1.25 MG/3 ML AMPUL NEB SCH ×3 (00:13→16:54)
[2018-10-05 04:28] LABS: ABSOLUTE LYMPHOCYTES (AUTO) 0.7 10^3/uL (0.5-4.7); ABSOLUTE MONOCYTES (AUTO) 0.4 10^3/uL (0.1-1.4); ABSOLUTE NEUT (AUTO) 3.3 10^3/uL (1.7-8.2); BASOPHILS % (AUTO) 0.9 % (0-2); EOSINOPHILS % (AUTO) 0.5 % (0-6); HEMATOCRIT 35.8 % (36.0-47.0); HEMOGLOBIN 11.3 g/dL (12.0-15.5); LYMPHOCYTES % (AUTO) 16.4 % (13-45); MEAN CORPUSCULAR HEMOGLOBIN 27.8 pg (27.0-33.4); MEAN CORPUSCULAR HGB CONC 31.6 g/dL (32.0-36.0); MEAN CORPUSCULAR VOLUME 88 fl (80-97); MONOCYTES % (AUTO) 8.1 % (3-13); PLATELET COUNT 274 10^3/uL (150-450); RED BLOOD COUNT 4.07 10^6/uL (3.72-5.28); RED CELL DISTRIBUTION WIDTH 18.6 % (11.5-14.0); SEGMENTED NEUTROPHILS % (AUTO) 74.1 % (42-78); TOTAL CELLS COUNTED % (AUTO) 100 %; WHITE BLOOD COUNT 4.5 10^3/uL (4.0-10.5)
[2018-10-05] MEDS: PANTOPRAZOLE SODIUM 40 MG TABLET.DR PO SCH ×2 (05:31→17:30)
[2018-10-05] MEDS: CLONAZEPAM 1 MG TABLET PO SCH ×3 (05:31→22:10)
[2018-10-05] MEDS: OXYCODONE-ACETAMINOPHEN 5-325 MG TABLET PO PRN ×3 (05:35→17:53)
[2018-10-05 05:59] LABS: ALBUMIN 3.6 g/dL (3.5-5.0); ALKALINE PHOSPHATASE 97 U/L (38-126); ASPARTATE AMINO TRANSFERASE 27 U/L (14-36); BILIRUBIN,DIRECT 0.5 mg/dL (0.0-0.4); BILIRUBIN,TOTAL 1.6 mg/dL (0.2-1.3); BLOOD UREA NITROGEN 12 mg/dL (7-20); CALCIUM 8.4 mg/dL (8.4-10.2); GLUCOSE 112 mg/dL (75-110); POTASSIUM 3.3 mmol/L (3.6-5.0); TOTAL PROTEIN 6.5 g/dL (6.3-8.2)
[2018-10-05 06:04] LABS: ANION GAP 6 (5-19); CARBON DIOXIDE 36 mmol/L (22-30); CHLORIDE 101 mmol/L (98-107)
[2018-10-05] MEDS: BUDESONIDE NEB 0.5 MG/2 ML AMPUL NEB SCH ×2 (07:45→19:52)
--- NOTE | 2018-10-05 07:55 | EKG REPORT ---
SEVERITY:- ABNORMAL ECG - A-V DUAL-PACED RHYTHM WITH SOME INHIBITION : Confirmed by: Kirk Weeks MD 05-Oct-2018 07:54:35
[2018-10-05] MEDS ORDERED: OXYCODONE-ACETAMINOPHEN 5-325 MG TABLET PO PRN (08:29)
[2018-10-05] MEDS ORDERED: NITROGLYCERIN 0.4 MG/TAB 25 TAB/BOTTLE SL PRN (08:29)
[2018-10-05] MEDS ORDERED: POTASSIUM CHLORIDE 10 MEQ CAPSULE.ER PO ONE (08:30)
--- NOTE | 2018-10-05 08:39 | PDOC PROGRESS REPORT ---
Subjective Progress Note for:: 10/05/18 Subjective:: 47 year old female who presented to the emergency room with acute severe dyspnea. She admits shortness of breath rapidly worsening over the course of the day and becoming severe on the evening of 10/03/2018. She admits accompanying orthopnea but denies other accompanying or associated signs and symptoms. She admits numerous prior similar episodes with exacerbations of her oxygen dependent (3L/min continuous) COPD or sudden worsening of her congestive heart failure. She has not identified any aggravating or ameliorating factors for her acute dyspnea. In the emergency room she was found to have a BNP greater than the upper measurable limit of 11,000 and a chest x-ray showing cardiomegaly with acute pulmonary edema. She was placed on BiPAP therapy and subsequently moved to the ICU for further evaluation and treatment. 10/04/[id number]-fbvc-old female admitted with severe shortness of breath secondary to acute exacerbation of chronic congestive heart failure. She has history of cardiomyopathy with EF of 20 to 25%, she is also history of paroxysmal atrial fibrillation on apixaban, history of ventricular tachycardia and AICD, obesity, COPD, history of coronary artery disease with a stent placement, history of PA admitted for shortness of breath. Presently on BiPAP. She is also came in with hypertensive emergency on nitro drip latest blood pressure is 138/80. Plan is to discontinue nitro drip. Presently on torsemide 100 mg p.o. daily. No acute events since the admission. 10/05/[id number]-oflw-old female with history of cardiomyopathy with multiple admissions for acute on chronic congestive heart failure admitted for severe shortness of breath requesting requiring BiPAP at the time of admission. She is in fluid overload at the time of admission. Urinary output is good and fluid balance is -2.1 L in the last 24 hours. Patient is comfortably in the bed communicating well denies any problems. As per the patient the nurse she is more comfortable on BiPAP while sleeping. No acute events in the last 24 hours afebrile. Reason For Visit: ACUTE PULMONARY EDEMA, ACUTE RESPIRATORY FAILURE Physical Exam Vital Signs: Temp Pulse Resp BP Pulse Ox 97.7 F 63 18 135/90 H 100 10/05/18 06:00 10/05/18 07:45 10/05/18 07:45 10/05/18 05:57 10/05/18 07:45 Intake & Output 10/04/18 10/05/18 10/06/18 06:59 06:59 06:59 Intake Total 203 738 Output Total 400 7275 Balance -197 -2137 Weight 113.1 kg 109 kg General appearance: PRESENT: no acute distress, cooperative, morbidly obese Head exam: PRESENT: atraumatic Eye exam: PRESENT: PERRLA Ear exam: PRESENT: normal external ear exam Mouth exam: PRESENT: moist, tongue midline Teeth exam: PRESENT: poor dentation Neck exam: ABSENT: carotid bruit, JVD, lymphadenopathy, thyromegaly Respiratory exam: PRESENT: decreased breath sounds, other - AICD present left side of the chest. Cardiovascular exam: PRESENT: RRR. ABSENT: diastolic murmur, rubs, systolic murmur GI/Abdominal exam: PRESENT: normal bowel sounds, soft. ABSENT: distended, guarding, mass, organolmegaly, rebound, tenderness Rectal exam: PRESENT: deferred Extremities exam: PRESENT: full ROM. ABSENT: calf tenderness, clubbing, pedal edema Neurological exam: PRESENT: alert, awake, oriented to person, oriented to place, oriented to time, oriented to situation, CN II-XII grossly intact. ABSENT: motor sensory deficit Psychiatric exam: PRESENT: appropriate affect, normal mood. ABSENT: homicidal ideation, suicidal ideation Results Laboratory Results: 10/05/18 04:11 10/05/18 05:33 10/05/18 10/05/18 10/05/18 04:11 04:11 05:33 WBC 4.5 RBC 4.07 Hgb 11.3 L Hct 35.8 L MCV 88 MCH 27.8 MCHC 31.6 L RDW 18.6 H Plt Count 274 Seg Neutrophils % 74.1 Lymphocytes % 16.4 Monocytes % 8.1 Eosinophils % 0.5 Basophils % 0.9 Absolute Neutrophils 3.3 Absolute Lymphocytes 0.7 Absolute Monocytes 0.4 Absolute Eosinophils 0.0 Absolute Basophils 0.0 Sodium Cancelled 143.3 Potassium Cancelled 3.3 L Chloride Cancelled 101 Carbon Dioxide Cancelled 36 H Anion Gap Cancelled 6 BUN Cancelled 12 Creatinine Cancelled 1.18 Est GFR ( Amer) Cancelled > 60 Est GFR (Non-Af Amer) Cancelled 49 L Glucose Cancelled 112 H Calcium Cancelled 8.4 Magnesium Cancelled 2.0 Total Bilirubin Cancelled 1.6 H AST Cancelled 27 Alkaline Phosphatase Cancelled 97 Total Protein Cancelled 6.5 Albumin Cancelled 3.6 10/04/18 10/04/18 10/04/18 01:05 07:30 07:30 Creatine Kinase 84 CK-MB (CK-2) 1.01 Troponin I 0.040 0.050 NT-Pro-B Natriuret Pep 88545 H 10/04/18 10/04/18 10/04/18 13:22 13:22 19:09 Creatine Kinase 76 73 CK-MB (CK-2) 1.25 Troponin I 0.040 NT-Pro-B Natriuret Pep 10/04/18 10/05/18 10/05/18 19:09 04:11 05:33 Creatine Kinase CK-MB (CK-2) 1.27 Troponin I 0.028 NT-Pro-B Natriuret Pep Cancelled 2920 H Assessment and Plan - Diagnosis (1) Acute on chronic systolic (congestive) heart failure Is this a current diagnosis for this admission?: Yes Plan: 10/04/2018-patient admitted with acute on chronic systolic heart failure with EF of 20 to 25%. Patient is on Entresto and also on torsemide 100 mg p.o. at this time. Plan is to add Lasix 40 mg IV twice daily. His catheter was requested planning to arrange for strict input output chart and a fluid restriction 1500 cc/day. 10/05/[id number]-ramu-old female with history of cardiomyopathy admitted with severe shortness of breath secondary to acute on chronic systolic heart failure EF is 20 to 25% she has history of ventricular tachycardia and has AICD. She was on Lasix 40 mg IV daily and she received torsemide also yesterday fluid balance is -2.1 L yesterday. Pulse oxes are much improved and chest x-ray looks stable. In my opinion patient can go to [facility] today. (2) Pneumonia Qualifiers: Pneumonia type: due to unspecified organism Laterality: right Lung location: lower lobe of lung Qualified Code(s): J18.1 - Lobar pneumonia, unspecified organism Is this a current diagnosis for this admission?: Yes Plan: 10/04/2018-chest x-ray indicated persistent right lower lobe pneumonia blood cultures are requested started on IV Rocephin and IV Zithromax. Likely community-acquired pneumonia. Gram-positive organisms may be responsible 10/05/2018-admission chest x-ray indicated persistent right basilar pneumonia blood cultures are pending and patient is presently on IV Rocephin and Zithromax probably she has community-acquired pneumonia and gram-positive organisms may be responsible. (3) Acute respiratory failure with hypoxia Is this a current diagnosis for this admission?: Yes Plan: Patient is treated initially with BiPAP support and will be intubated if necessary to maintain adequate oxygenation. 10/04/2018-patient admitted with the acute on chronic respiratory failure with hypoxia most likely secondary to right lower lobe pneumonia and exacerbation of CHF. Started on IV Rocephin and IV Zithromax blood cultures requested. ABG this morning pH is 7.35/PCO2 49 PO2 63 bicarb is 27 this is on 50% oxygen. Plan is to continue the nebulizer treatments. 10/05/2018-patient admitted with acute on chronic respiratory failure with hypoxia most likely secondary to exacerbation of CHF and underlying pneumonia. Pulse oxes improving. (4) HTN (hypertension) Qualifiers: Hypertension type: essential hypertension Qualified Code(s): I10 - Essential (primary) hypertension Is this a current diagnosis for this admission?: Yes Plan: Patient's blood pressure monitored closely throughout her hospital course. Initially her blood pressure will be treated with an intravenous infusion of nitroglycerin as part of treating her acute pulmonary edema. 10/04/2018-patient came in with hypertensive emergency on nitroglycerin drip until this morning. Blood pressure is improved to 138/80 she also received 40 mg of IV Lasix in the ER she was started on torsemide 100 mg p.o. daily. Plan is to discontinue nitro drip. pt is on Entresto. 10/05/2018-patient admitted with hypertensive emergency and blood pressure this morning he is 135/96 much improved. Plan is to resume Entresto 1 tablet twice daily, Lasix 80 mg twice daily and isosorbide along with metoprolol. (5) Morbid obesity Is this a current diagnosis for this admission?: No (6) CKD (chronic kidney disease) Is this a current diagnosis for this admission?: No Plan: 10/04/2018-patient has history of chronic kidney disease creatinine is 1.35. Stable. 82,019-patient is admitted with creatinine of 1.35 improved to 1.18 BENNY may be secondary to exacerbation of CHF. (7) Cardiomyopathy Qualifiers: Cardiomyopathy type: ischemic Qualified Code(s): I25.5 - Ischemic cardiomyopathy Is this a current diagnosis for this admission?: Yes Plan: Patient be continued on her usual medications for treatment of her cardiomyopathy. Her cardiac status to be monitored closely in the ICU. 10/04/2018-patient has history of ischemic and dilated cardiomyopathy plan is to continue Entresto and beta-blockers. 09/2018-patient has history of combined ischemic/dilated cardiomyopathy plan is to continue Entresto and beta-blockers. (8) Atrial fibrillation Is this a current diagnosis for this admission?: No Plan: 10/04/2018-patient has history of small atrial fibrillation on apixaban plan is to continue the present management. 10/05/2018-patient has a chronic history of chronic atrial fibrillation on apixaban plan is to continue the present management and to continue metoprolol. 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 (9) Ventricular tachycardia Is this a current diagnosis for this admission?: No Plan: 10/04/2018-patient has history of ventricular tachycardia has AICD. 10/05/2018-patient has history of ventricular tachycardia with AICD no evidence of recent firing of AICD heart rate is relatively controlled. Plan is to continue the present management. - Time Time Spent with patient: 35 or more minutes Medications reviewed and adjusted accordingly: Yes Anticipated discharge: Home
--- NOTE | 2018-10-05 08:41 | RADIOLOGY REPORT (SQ) ---
EXAM DESCRIPTION: CHEST SINGLE VIEW COMPLETED DATE/TIME: 10/05/2018 6:34 am REASON FOR STUDY: Acute pulmonary edema COMPARISON: CT chest 07/20/2018 AP chest 07/18/2018, 08/10/2018, 10/04/2018 EXAM PARAMETERS: NUMBER OF VIEWS: One view. TECHNIQUE: Single frontal radiographic view of the chest acquired. RADIATION DOSE: NA LIMITATIONS: None. FINDINGS: LUNGS AND PLEURA: Persistent alveolar and interstitial edema pattern is unchanged from 10/04. No gross pleural effusion or pneumothorax. MEDIASTINUM AND HILAR STRUCTURES: No masses. Contour normal. HEART AND VASCULAR STRUCTURES: Stable marked cardiomegaly. Old sternotomy for CABG. BONES: No acute findings. HARDWARE: Left-sided pacemaker/ defibrillator unchanged OTHER: No other significant finding. IMPRESSION: Persistent mild alveolar and interstitial edema unchanged from 10/04/2018. TECHNICAL DOCUMENTATION: JOB ID: [id number] [employer]- All Rights Reserved Reading location - IP/workstation name: [email or web address]
[2018-10-05] MEDS ORDERED: POTASSIUM CHLORIDE 20 MEQ/50 ML RTU IV SCH (09:00)
[2018-10-05] MEDS: APIXABAN 5 MG TABLET PO SCH ×2 (09:29→17:30)
[2018-10-05] MEDS: DOCUSATE SODIUM 100 MG CAPSULE PO SCH ×2 (09:29→17:30)
[2018-10-05] MEDS: BUSPIRONE HCL 10 MG TABLET PO SCH ×2 (09:29→22:10)
[2018-10-05] MEDS: ASPIRIN 81 MG TABLET, ENT COATED PO SCH (09:29)
[2018-10-05] MEDS: FAMOTIDINE 20 MG TABLET PO SCH ×2 (09:30→22:10)
[2018-10-05] MEDS: FUROSEMIDE 80 MG TABLET PO SCH ×2 (09:30→17:30)
[2018-10-05] MEDS: AZITHROMYCIN 500 MG in DEXTROSE 5%-WATER 250 ML IV SCH (09:41)
[2018-10-05] MEDS: SACUBITRIL/VALSARTAN 49 MG/51 MG TABLET PO SCH ×2 (09:48→22:10)
[2018-10-05] MEDS: PAROXETINE HCL 20 MG TABLET PO SCH (09:49)
[2018-10-05] MEDS: METOPROLOL SUCCINATE 50 MG TAB.SR.24H PO SCH (09:53)
[2018-10-05] MEDS: ISOSORBIDE MONONITRATE 60 MG TAB.ER.24H PO SCH (10:03)
[2018-10-05] MEDS: CEFTRIAXONE SODIUM 2,000 MG in DEXTROSE 5%-WATER 100 ML IV SCH (10:49)
[2018-10-05 14:51] LABS: AMIODARON SERUM 1.4 ug/mL (1.0-2.5); NORAMIODARONE SERUM 1.4 ug/mL (1.0-2.5)
[2018-10-05] MEDS: ALPRAZOLAM 0.5 MG TABLET PO PRN (17:39)
[2018-10-05] MEDS: ATORVASTATIN CALCIUM 80 MG TABLET PO SCH (22:10)
[2018-10-05] MEDS: MELATONIN 1 MG TABLET PO SCH (22:11)
[2018-10-06] MEDS: IPRATROPIUM BROMIDE 0.02% NEB 0.5 MG/2.5 ML AMPUL NEB SCH ×4 (00:11→23:55)
[2018-10-06] MEDS: LEVALBUTEROL HCL NEB 1.25 MG/3 ML AMPUL NEB SCH ×4 (00:11→23:55)
[2018-10-06] MEDS: MORPHINE SULFATE 10 MG/ML INJ IV PRN ×2 (00:35→17:39)
[2018-10-06 04:22] LABS: ABSOLUTE MONOCYTES (AUTO) 0.4 10^3/uL (0.1-1.4); ABSOLUTE NEUT (AUTO) 2.8 10^3/uL (1.7-8.2); BASOPHILS % (AUTO) 0.9 % (0-2); EOSINOPHILS % (AUTO) 0.6 % (0-6); HEMATOCRIT 36.1 % (36.0-47.0); HEMOGLOBIN 11.6 g/dL (12.0-15.5); LYMPHOCYTES % (AUTO) 22.7 % (13-45); MEAN CORPUSCULAR HEMOGLOBIN 28.1 pg (27.0-33.4); MEAN CORPUSCULAR HGB CONC 32.1 g/dL (32.0-36.0); MEAN CORPUSCULAR VOLUME 88 fl (80-97); MONOCYTES % (AUTO) 9.7 % (3-13); PLATELET COUNT 282 10^3/uL (150-450); RED BLOOD COUNT 4.12 10^6/uL (3.72-5.28); RED CELL DISTRIBUTION WIDTH 18.2 % (11.5-14.0); SEGMENTED NEUTROPHILS % (AUTO) 66.1 % (42-78); TOTAL CELLS COUNTED % (AUTO) 100 %; WHITE BLOOD COUNT 4.2 10^3/uL (4.0-10.5)
[2018-10-06 04:43] LABS: ALBUMIN 3.5 g/dL (3.5-5.0); ALKALINE PHOSPHATASE 84 U/L (38-126); ANION GAP 7 (5-19); ASPARTATE AMINO TRANSFERASE 25 U/L (14-36); BILIRUBIN,DIRECT 0.4 mg/dL (0.0-0.4); BILIRUBIN,TOTAL 0.9 mg/dL (0.2-1.3); BLOOD UREA NITROGEN 18 mg/dL (7-20); CALCIUM 9.1 mg/dL (8.4-10.2); CARBON DIOXIDE 33 mmol/L (22-30); CHLORIDE 101 mmol/L (98-107); GLUCOSE 107 mg/dL (75-110); POTASSIUM 3.7 mmol/L (3.6-5.0); TOTAL PROTEIN 6.3 g/dL (6.3-8.2)
[2018-10-06] MEDS: CLONAZEPAM 1 MG TABLET PO SCH ×3 (05:53→21:57)
[2018-10-06] MEDS: PANTOPRAZOLE SODIUM 40 MG TABLET.DR PO SCH ×2 (05:53→17:33)
[2018-10-06] MEDS: BUDESONIDE NEB 0.5 MG/2 ML AMPUL NEB SCH ×2 (08:00→19:50)
--- NOTE | 2018-10-06 08:43 | PDOC PROGRESS REPORT ---
Subjective Progress Note for:: 10/06/18 Subjective:: 47 year old female who presented to the emergency room with acute severe dyspnea. She admits shortness of breath rapidly worsening over the course of the day and becoming severe on the evening of 10/03/2018. She admits accompanying orthopnea but denies other accompanying or associated signs and symptoms. She admits numerous prior similar episodes with exacerbations of her oxygen dependent (3L/min continuous) COPD or sudden worsening of her congestive heart failure. She has not identified any aggravating or ameliorating factors for her acute dyspnea. In the emergency room she was found to have a BNP greater than the upper measurable limit of 11,000 and a chest x-ray showing cardiomegaly with acute pulmonary edema. She was placed on BiPAP therapy and subsequently moved to the ICU for further evaluation and treatment. 10/04/[id number]-hovv-old female admitted with severe shortness of breath secondary to acute exacerbation of chronic congestive heart failure. She has history of cardiomyopathy with EF of 20 to 25%, she is also history of paroxysmal atrial fibrillation on apixaban, history of ventricular tachycardia and AICD, obesity, COPD, history of coronary artery disease with a stent placement, history of AR admitted for shortness of breath. Presently on BiPAP. She is also came in with hypertensive emergency on nitro drip latest blood pressure is 138/80. Plan is to discontinue nitro drip. Presently on torsemide 100 mg p.o. daily. No acute events since the admission. 10/05/[id number]-emwv-old female with history of cardiomyopathy with multiple admissions for acute on chronic congestive heart failure admitted for severe shortness of breath requesting requiring BiPAP at the time of admission. She is in fluid overload at the time of admission. Urinary output is good and fluid balance is -2.1 L in the last 24 hours. Patient is comfortably in the bed communicating well denies any problems. As per the patient the nurse she is more comfortable on BiPAP while sleeping. No acute events in the last 24 hours afebrile. 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 Stable. Urinary output is good. Patient is on furosemide 80 mg p.o. twice daily blood pressure is 96/60 this morning asymptomatic plan is to decrease the Lasix to 40 p.o. twice daily. We will continue the other medications. She is also receiving IV antibiotic therapy for left-sided pneumonia. Cultures are negative so far. Patient uses BiPAP at night to sleep on nasal cannula daytime she is getting up and going to the restroom without any problems. Reason For Visit: ACUTE PULMONARY EDEMA, ACUTE RESPIRATORY FAILURE Physical Exam Vital Signs: Temp Pulse Resp BP Pulse Ox 98.2 F 60 15 93/57 L 100 10/06/18 07:32 10/06/18 07:32 10/06/18 07:32 10/06/18 07:32 10/06/18 07:32 Intake & Output 10/05/18 10/06/18 10/07/18 06:59 06:59 06:59 Intake Total 738 550 Output Total 2875 185 Balance -2137 365 Weight 109 kg 112.9 kg General appearance: PRESENT: no acute distress, morbidly obese Head exam: PRESENT: atraumatic Eye exam: PRESENT: PERRLA Mouth exam: PRESENT: moist, tongue midline Teeth exam: PRESENT: poor dentation Neck exam: ABSENT: carotid bruit, JVD, lymphadenopathy, thyromegaly Respiratory exam: PRESENT: crackles, decreased breath sounds Cardiovascular exam: PRESENT: RRR. ABSENT: diastolic murmur, rubs, systolic murmur GI/Abdominal exam: PRESENT: normal bowel sounds, soft. ABSENT: distended, guarding, mass, organolmegaly, rebound, tenderness Rectal exam: PRESENT: deferred Extremities exam: PRESENT: full ROM. ABSENT: calf tenderness, clubbing, pedal edema Neurological exam: PRESENT: alert, awake, oriented to person, oriented to place, oriented to time, oriented to situation, CN II-XII grossly intact. ABSENT: motor sensory deficit Psychiatric exam: PRESENT: appropriate affect, normal mood. ABSENT: homicidal ideation, suicidal ideation Results Laboratory Results: 10/06/18 03:57 10/06/18 03:57 10/06/18 10/06/18 03:57 03:57 WBC 4.2 RBC 4.12 Hgb 11.6 L Hct 36.1 MCV 88 MCH 28.1 MCHC 32.1 RDW 18.2 H Plt Count 282 Seg Neutrophils % 66.1 Lymphocytes % 22.7 Monocytes % 9.7 Eosinophils % 0.6 Basophils % 0.9 Absolute Neutrophils 2.8 Absolute Lymphocytes 1.0 Absolute Monocytes 0.4 Absolute Eosinophils 0.0 Absolute Basophils 0.0 Sodium 140.8 Potassium 3.7 Chloride 101 Carbon Dioxide 33 H Anion Gap 7 BUN 18 Creatinine 1.42 H Est GFR ( Amer) 48 L Est GFR (Non-Af Amer) 40 L Glucose 107 Calcium 9.1 Magnesium 2.0 Total Bilirubin 0.9 AST 25 Alkaline Phosphatase 84 Total Protein 6.3 Albumin 3.5 10/04/18 10/04/18 10/04/18 01:05 07:30 07:30 Creatine Kinase 84 CK-MB (CK-2) 1.01 Troponin I 0.040 0.050 NT-Pro-B Natriuret Pep 41217 H 10/04/18 10/04/18 10/04/18 13:22 13:22 19:09 Creatine Kinase 76 73 CK-MB (CK-2) 1.25 Troponin I 0.040 NT-Pro-B Natriuret Pep 10/04/18 10/05/18 10/05/18 19:09 04:11 05:33 Creatine Kinase CK-MB (CK-2) 1.27 Troponin I 0.028 NT-Pro-B Natriuret Pep Cancelled 2920 H 10/06/18 03:57 Creatine Kinase CK-MB (CK-2) Troponin I NT-Pro-B Natriuret Pep 662 H Impressions: Chest X-Ray 10/05/18 06:00 IMPRESSION: Persistent mild alveolar and interstitial edema unchanged from 10/04/2018. Assessment and Plan - Diagnosis (1) Acute on chronic systolic (congestive) heart failure Is this a current diagnosis for this admission?: Yes Plan: 10/04/2018-patient admitted with acute on chronic systolic heart failure with EF of 20 to 25%. Patient is on Entresto and also on torsemide 100 mg p.o. at this time. Plan is to add Lasix 40 mg IV twice daily. His catheter was requested pl anning to arrange for strict input output chart and a fluid restriction 1500 cc/day. 10/05/[id number]-cozi-old female with history of cardiomyopathy admitted with severe shortness of breath secondary to acute on chronic systolic heart failure EF is 20 to 25% she has history of ventricular tachycardia and has AICD. She was on Lasix 40 mg IV daily and she received torsemide also yesterday fluid balance is -2.1 L yesterday. Pulse oxes are much improved and chest x-ray looks stable. In my opinion patient can go to [facility] today. 10/06/[id number]-txvy-old female with history of mixed/dilated cardiomyopathy admitted with acute on chronic systolic heart failure and right-sided pneumonia she is urinating well and pulse oxes are improving she is also getting treatment for right basilar pneumonia with IV antibiotic therapy afebrile blood cultures are pending blood pressure is low today 96/60 asymptomatic plan is to decrease the Lasix from 80 mg twice a day to 40 mg twice a day and continue the other man agement. Latest EF is 20 to 25%. (2) Pneumonia Qualifiers: Pneumonia type: due to unspecified organism Laterality: right Lung location: lower lobe of lung Qualified Code(s): J18.1 - Lobar pneumonia, unspecified organism Is this a current diagnosis for this admission?: Yes Plan: 10/04/2018-chest x-ray indicated persistent right lower lobe pneumonia blood cultures are requested started on IV Rocephin and IV Zithromax. Likely community-acquired pneumonia. Gram-positive organisms may be responsible 10/05/2018-admission chest x-ray indicated persistent right basilar pneumonia blood cultures are pending and patient is presently on IV Rocephin and Zithromax probably she has community-acquired pneumonia and gram-positive organisms may be responsible. 10/06/2018-patient chest x-ray yesterday shows persistent pulmonary alveolar edema on Lasix 80 mg twice a day because the blood pressures are running low plan is to decrease the Lasix to 40 twice daily and closely monitor the pulse ox (3) Acute respiratory failure with hypoxia Is this a current diagnosis for this admission?: Yes Plan: Patient is treated initially with BiPAP support and will be intubated if necessary to maintain adequate oxygenation. 10/04/2018-patient admitted with the acute on chronic respiratory failure with hypoxia most likely secondary to right lower lobe pneumonia and exacerbation of CHF. Started on IV Rocephin and IV Zithromax blood cultures requested. ABG this morning pH is 7.35/PCO2 49 PO2 63 bicarb is 27 this is on 50% oxygen. Plan is to continue the nebulizer treatments. 10/05/2018-patient admitted with acute on chronic respiratory failure with hypoxia most likely secondary to exacerbation of CHF and underlying pneumonia. Pulse oxes improving. 10/06/[id number]-mqcq-old female admitted with acute on chronic respiratory failure with hypoxia requiring BiPAP in the emergency room. She is doing better. Reason for hypoxia most likely secondary to pneumonia and acute on chronic systolic heart failure presently she is on BiPAP during sleep while she is awake she is on 4 L oxygen pulse ox is 97% on 4 L. And is to continue the present management and to do the chest x-ray tomorrow. (4) HTN (hypertension) Qualifiers: Hypertension type: essential hypertension Qualified Code(s): I10 - Es sential (primary) hypertension Is this a current diagnosis for this admission?: Yes Plan: Patient's blood pressure monitored closely throughout her hospital course. Initially her blood pressure will be treated with an intravenous infusion of nitroglycerin as part of treating her acute pulmonary edema. 10/04/2018-patient came in with hypertensive emergency on nitroglycerin drip until this morning. Blood pressure is improved to 138/80 she also received 40 mg of IV Lasix in the ER she was started on torsemide 100 mg p.o. daily. Plan is to discontinue nitro drip. pt is on Entresto. 10/05/2018-patient admitted with hypertensive emergency and blood pressure this morning he is 135/96 much improved. Plan is to resume Entresto 1 tablet twice daily, Lasix 80 mg twice daily and isosorbide along with metoprolol. 10/06/2018-patient admitted with hypertensive emergency which was resolved actually today blood pressure is low 96/62 decrease the Lasix to 40 mg twice a day. (5) Morbid obesity Is this a current diagnosis for this admission?: No (6) CKD (chronic kidney disease) Is this a current diagnosis for this admission?: No Plan: 10/04/2018-patient has history of chronic kidney disease creatinine is 1.35. Stable. 82,019-patient is admitted with creatinine of 1.35 improved to 1.18 BENNY may be secondary to exacerbation of CHF. 10/06/2018-patient's creatinine today is 1.42 slightly elevated compared to yesterday. We could continue to closely watch her kidney function on regular basis. (7) Cardiomyopathy Qualifiers: Cardiomyopathy type: ischemic Qualified Code(s): I25.5 - Ischemic cardiomyopathy Is this a current diagnosis for this admission?: Yes Plan: Patient be continued on her usual medications for treatment of her cardiomyopathy. Her cardiac status to be monitored closely in the ICU. 10/04/2018-patient has history of ischemic and dilated cardiomyopathy plan is to continue Entresto and beta-blockers. 09/2018-patient has history of combined ischemic/dilated cardiomyopathy plan is to continue Entresto and beta-blockers. 2018-latest EF is 20 to 25% she has a cardiomyopathy most likely combination of ischemia and dilated cardiomyopathy. Patient is on Entresto and metoprolol plan is to continue those medications. (8) Atrial fibrillation Is this a current diagnosis for this admission?: No Plan: 10/04/2018-patient has history of small atrial fibrillation on apixaban plan is to continue the present management. 10/05/2018-patient has a chronic history of chronic atrial fibrillation on apixaban plan is to continue the present management and to continue metoprolol. 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 10/06/2018-patient has history of atrial fibrillation rate controlled heart rate is 60 on metoprolol plan is to continue the present management. (9) Ventricular tachycardia Is this a current diagnosis for this admission?: No Plan: 10/04/2018-patient has history of ventricular tachycardia has AICD. 10/05/2018-patient has history of ventricular tachycardia with AICD no evidence of recent firing of AICD heart rate is relatively controlled. Plan is to continue the present management. 10/06/2018-patient has history of ventricular tachycardia has AICD. So far no concerns reported. - Time Time Spent with patient: 25-34 minutes Medications reviewed and adjusted accordingly: Yes Anticipated discharge: Home
--- NOTE | 2018-10-06 09:18 | RADIOLOGY REPORT (SQ) ---
EXAM DESCRIPTION: CHEST SINGLE VIEW COMPLETED DATE/TIME: 10/06/2018 9:04 am REASON FOR STUDY: Acute pulmonary edema COMPARISON: 10/05/2018 EXAM PARAMETERS: NUMBER OF VIEWS: One view. TECHNIQUE: Single frontal radiographic view of the chest acquired. RADIATION DOSE: NA LIMITATIONS: None. FINDINGS: Stable AP portable radiograph with minimal diffuse interstitial pulmonary opacity, cardiom egaly, and multi lead left chest pacer defibrillator. No new airspace opacity. IMPRESSION: Stable AP portable radiograph with minimal diffuse interstitial pulmonary opacity, cardi omegaly, and multi lead left chest pacer defibrillator. No new airspace opacity. TECHNICAL DOCUMENTATION: JOB ID: [id number] [employer]- All Rights Reserved Reading location - IP/workstation name: [email or web address]
[2018-10-06] MEDS: PAROXETINE HCL 20 MG TABLET PO SCH (09:56)
[2018-10-06] MEDS: APIXABAN 5 MG TABLET PO SCH ×2 (09:56→17:32)
[2018-10-06] MEDS: DOCUSATE SODIUM 100 MG CAPSULE PO SCH ×2 (09:56→17:33)
[2018-10-06] MEDS: ISOSORBIDE MONONITRATE 60 MG TAB.ER.24H PO SCH (09:56)
[2018-10-06] MEDS: SACUBITRIL/VALSARTAN 49 MG/51 MG TABLET PO SCH ×2 (09:56→21:53)
[2018-10-06] MEDS: FAMOTIDINE 20 MG TABLET PO SCH ×2 (09:56→21:57)
[2018-10-06] MEDS: ASPIRIN 81 MG TABLET, ENT COATED PO SCH (09:57)
[2018-10-06] MEDS: BUSPIRONE HCL 10 MG TABLET PO SCH ×2 (09:57→21:57)
[2018-10-06] MEDS: CEFTRIAXONE SODIUM 2,000 MG in DEXTROSE 5%-WATER 100 ML IV SCH (09:57)
[2018-10-06] MEDS: FUROSEMIDE 80 MG TABLET PO SCH ×2 (09:57→17:33)
[2018-10-06] MEDS: METOPROLOL SUCCINATE 50 MG TAB.SR.24H PO SCH (09:57)
[2018-10-06] MEDS: ALPRAZOLAM 0.5 MG TABLET PO PRN (10:02)
[2018-10-06] MEDS: AZITHROMYCIN 500 MG in DEXTROSE 5%-WATER 250 ML IV SCH (11:25)
[2018-10-06] MEDS: ACETAMINOPHEN 325 MG TABLET PO PRN (12:32)
[2018-10-06] MEDS: LEVALBUTEROL HCL NEB 0.63 MG/3 ML AMPUL NEB PRN (19:50)
[2018-10-06] MEDS: ATORVASTATIN CALCIUM 80 MG TABLET PO SCH (21:57)
[2018-10-06] MEDS: MELATONIN 1 MG TABLET PO SCH (21:57)
[2018-10-07] MEDS: MORPHINE SULFATE 10 MG/ML INJ IV PRN ×2 (03:34→21:32)
[2018-10-07 06:28] LABS: HEMATOCRIT 35.1 % (36.0-47.0); MEAN CORPUSCULAR HEMOGLOBIN 27.7 pg (27.0-33.4); MEAN CORPUSCULAR HGB CONC 31.5 g/dL (32.0-36.0); MEAN CORPUSCULAR VOLUME 88 fl (80-97); PLATELET COUNT 288 10^3/uL (150-450); RED BLOOD COUNT 3.99 10^6/uL (3.72-5.28); RED CELL DISTRIBUTION WIDTH 18.2 % (11.5-14.0); WHITE BLOOD COUNT 3.7 10^3/uL (4.0-10.5)
[2018-10-07] MEDS: CLONAZEPAM 1 MG TABLET PO SCH ×3 (06:28→21:32)
[2018-10-07] MEDS: PANTOPRAZOLE SODIUM 40 MG TABLET.DR PO SCH ×2 (06:28→17:43)
[2018-10-07 06:52] LABS: ALBUMIN 3.3 g/dL (3.5-5.0); ALKALINE PHOSPHATASE 71 U/L (38-126); ANION GAP 8 (5-19); ASPARTATE AMINO TRANSFERASE 20 U/L (14-36); BILIRUBIN,DIRECT 0.3 mg/dL (0.0-0.4); BILIRUBIN,TOTAL 0.5 mg/dL (0.2-1.3); BLOOD UREA NITROGEN 19 mg/dL (7-20); CALCIUM 8.9 mg/dL (8.4-10.2); CARBON DIOXIDE 35 mmol/L (22-30); CHLORIDE 98 mmol/L (98-107); GLUCOSE 101 mg/dL (75-110); POTASSIUM 3.9 mmol/L (3.6-5.0); TOTAL PROTEIN 5.9 g/dL (6.3-8.2)
[2018-10-07] MEDS: BUDESONIDE NEB 0.5 MG/2 ML AMPUL NEB SCH ×2 (08:11→19:30)
[2018-10-07] MEDS: LEVALBUTEROL HCL NEB 1.25 MG/3 ML AMPUL NEB SCH ×2 (08:11→15:37)
[2018-10-07] MEDS: IPRATROPIUM BROMIDE 0.02% NEB 0.5 MG/2.5 ML AMPUL NEB SCH ×2 (08:11→15:37)
--- NOTE | 2018-10-07 08:56 | RADIOLOGY REPORT (SQ) ---
EXAM DESCRIPTION: CHEST SINGLE VIEW COMPLETED DATE/TIME: 10/07/2018 8:21 am REASON FOR STUDY: Acute pulmonary edema COMPARISON: 10/06/2018 TECHNIQUE: Single frontal radiographic view of the chest acquired. NUMBER OF VIEWS: One view. LIMITATIONS: None. FINDINGS: LUNGS AND PLEURA: No pneumothorax. Increasing airspace opacities in both lung bases. No significant pleural effusion. MEDIASTINUM AND HILAR STRUCTURES: Stable. HEART AND VASCULAR STRUCTURES: Stable. BONES: No acute findings. HARDWARE: CABG. Cardiac defibrillator. OTHER: No other significant finding. IMPRESSION: Increasing airspace opacities in both lung bases. No significant pleural effusion. TECHNICAL DOCUMENTATION: JOB ID: [id number] [id number] [employer]- All Rights Reserved Reading location - IP/workstation name: [email or web address]
[2018-10-07] MEDS: FUROSEMIDE 80 MG TABLET PO SCH (09:52)
[2018-10-07] MEDS: BUSPIRONE HCL 10 MG TABLET PO SCH ×2 (09:52→21:31)
[2018-10-07] MEDS: APIXABAN 5 MG TABLET PO SCH ×2 (09:52→17:43)
[2018-10-07] MEDS: ASPIRIN 81 MG TABLET, ENT COATED PO SCH (09:52)
[2018-10-07] MEDS: SACUBITRIL/VALSARTAN 49 MG/51 MG TABLET PO SCH ×2 (09:52→21:31)
[2018-10-07] MEDS: ISOSORBIDE MONONITRATE 60 MG TAB.ER.24H PO SCH (09:52)
[2018-10-07] MEDS: DOCUSATE SODIUM 100 MG CAPSULE PO SCH ×2 (09:52→17:43)
[2018-10-07] MEDS: FAMOTIDINE 20 MG TABLET PO SCH ×2 (09:52→21:31)
[2018-10-07] MEDS: PAROXETINE HCL 20 MG TABLET PO SCH (09:52)
[2018-10-07] MEDS: CEFTRIAXONE SODIUM 2,000 MG in DEXTROSE 5%-WATER 100 ML IV SCH (09:53)
[2018-10-07] MEDS: METOPROLOL SUCCINATE 50 MG TAB.SR.24H PO SCH (09:53)
--- NOTE | 2018-10-07 10:13 | PDOC PROGRESS REPORT ---
Subjective Progress Note for:: 10/07/18 Subjective:: 47 year old female who presented to the emergency room with acute severe dyspnea. She admits shortness of breath rapidly worsening over the course of the day and becoming severe on the evening of 10/03/2018. She admits accompanying orthopnea but denies other accompanying or associated signs and symptoms. She admits numerous prior similar episodes with exacerbations of her oxygen dependent (3L/min continuous) COPD or sudden worsening of her congestive heart failure. She has not identified any aggravating or ameliorating factors for her acute dyspnea. In the emergency room she was found to have a BNP greater than the upper measurable limit of 11,000 and a chest x-ray showing cardiomegaly with acute pulmonary edema. She was placed on BiPAP therapy and subsequently moved to the ICU for further evaluation and treatment. 10/04/[id number]-murx-old female admitted with severe shortness of breath secondary to acute exacerbation of chronic congestive heart failure. She has history of cardiomyopathy with EF of 20 to 25%, she is also history of paroxysmal atrial fibrillation on apixaban, history of ventricular tachycardia and AICD, obesity, COPD, history of coronary artery disease with a stent placement, history of PR admitted for shortness of breath. Presently on BiPAP. She is also came in with hypertensive emergency on nitro drip latest blood pressure is 138/80. Plan is to discontinue nitro drip. Presently on torsemide 100 mg p.o. daily. No acute events since the admission. 10/05/[id number]-bjaj-old female with history of cardiomyopathy with multiple admissions for acute on chronic congestive heart failure admitted for severe shortness of breath requesting requiring BiPAP at the time of admission. She is in fluid overload at the time of admission. Urinary output is good and fluid balance is -2.1 L in the last 24 hours. Patient is comfortably in the bed communicating well denies any problems. As per the patient the nurse she is more comfortable on BiPAP while sleeping. No acute events in the last 24 hours afebrile. 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 Stable. Urinary output is good. Patient is on furosemide 80 mg p.o. twice daily blood pressure is 96/60 this morning asymptomatic plan is to decrease the Lasix to 40 p.o. twice daily. We will continue the other medications. She is also receiving IV antibiotic therapy for left-sided pneumonia. Cultures are negative so far. Patient uses BiPAP at night to sleep on nasal cannula daytime she is getting up and going to the restroom without any problems. 10/07/[id number]-bzju-old female with history of cardiomyopathy admitted with acute on chronic heart failure. Doing well. Presently on Lasix 40 mg p.o. twice a day blood pressures are running low last night. She is also bradycardic. She has history of atrial fibrillation and ventricular tachycardia and AICD. Plan is to discontinue metoprolol today and to discontinue Lasix for today. To r eevaluate the patient's blood pressures on daily basis. Negative fluid balance of 1200 mL in the last 24 hrs. Reason For Visit: ACUTE PULMONARY EDEMA, ACUTE RESPIRATORY FAILURE Physical Exam Vital Signs: Temp Pulse Resp BP Pulse Ox 97.3 F 59 L 18 98/66 L 98 10/07/18 08:13 10/07/18 08:13 10/07/18 08:13 10/07/18 08:13 10/07/18 08:13 Intake & Output 10/06/18 10/07/18 10/08/18 06:59 06:59 06:59 Intake Total 650 690 Output Total 185 1950 Balance 465 -1260 Weight 112.9 kg 114.7 kg General appearance: PRESENT: no acute distress, morbidly obese Head exam: PRESENT: atraumatic Eye exam: PRESENT: PERRLA Mouth exam: PRESENT: moist, tongue midline Teeth exam: PRESENT: poor dentation Neck exam: ABSENT: carotid bruit, JVD, lymphadenopathy, thyromegaly Respiratory exam: PRESENT: decreased breath sounds Cardiovascular exam: PRESENT: irregular rhythm GI/Abdominal exam: PRESENT: normal bowel sounds, soft. ABSENT: distended, guarding, mass, organolmegaly, rebound, tenderness Rectal exam: PRESENT: deferred Extremities exam: PRESENT: full ROM. ABSENT: calf tenderness, clubbing, pedal edema Neurological exam: PRESENT: alert, awake, oriented to person, oriented to place, oriented to time, oriented to situation, CN II-XII grossly intact. ABSENT: motor sensory deficit Psychiatric exam: PRESENT: appropriate affect, normal mood. ABSENT: homicidal ideation, suicidal ideation Results Laboratory Results: 10/07/18 05:49 10/07/18 05:49 10/07/18 10/07/18 05:49 05:49 WBC 3.7 L RBC 3.99 Hgb 11.0 L Hct 35.1 L MCV 88 MCH 27.7 MCHC 31.5 L RDW 18.2 H Plt Count 288 Sodium 140.7 Potassium 3.9 Chloride 98 Carbon Dioxide 35 H Anion Gap 8 BUN 19 Creatinine 1.39 H Est GFR ( Amer) 49 L Est GFR (Non-Af Amer) 41 L Glucose 101 Calcium 8.9 Magnesium 2.0 Total Bilirubin 0.5 AST 20 Alkaline Phosphatase 71 Total Protein 5.9 L Albumin 3.3 L 10/04/18 10/04/18 10/04/18 01:05 07:30 07:30 Creatine Kinase 84 CK-MB (CK-2) 1.01 Troponin I 0.040 0.050 NT-Pro-B Natriuret Pep 25389 H 10/04/18 10/04/18 10/04/18 13:22 13:22 19:09 Creatine Kinase 76 73 CK-MB (CK-2) 1.25 Troponin I 0.040 NT-Pro-B Natriuret Pep 10/04/18 10/05/18 10/05/18 19:09 04:11 05:33 Creatine Kinase CK-MB (CK-2) 1.27 Troponin I 0.028 NT-Pro-B Natriuret Pep Cancelled 2920 H 10/06/18 03:57 Creatine Kinase CK-MB (CK-2) Troponin I NT-Pro-B Natriuret Pep 662 H Impressions: Chest X-Ray 10/07/18 06:00 IMPRESSION: Increasing airspace opacities in both lung bases. No significant pleural effusion. Assessment and Plan - Diagnosis (1) Acute on chronic systolic (congestive) heart failure Is this a current diagnosis for this admission?: Yes Plan: 10/04/2018-patient admitted with acute on chronic systolic heart failure with EF of 20 to 25%. Patient is on Entresto and also on torsemide 100 mg p.o. at this time. Plan is to add Lasix 40 mg IV twice daily. His catheter was requested planning to arrange for strict input output chart and a fluid restriction 1500 cc/day. 10/05/[id number]-equj-old female with history of cardiomyopathy admitted with severe shortness of breath secondary to acute on chronic systolic heart failure EF is 20 to 25% she has history of ventricular tachycardia and has AICD. She was on Lasix 40 mg IV daily and she received torsemide also yesterday fluid balance is -2.1 L yesterday. Pulse oxes are much improved and chest x-ray looks stable. In my opinion patient can go to [facility] today. 10/06/[id number]-eesj-old female with history of mixed/dilated cardiomyopathy admitted with acute on chronic systolic heart failure and right-sided pneumonia she is urinating well and pulse oxes are improving she is also getting treatment for right basilar pneumonia with IV antibiotic therapy afebrile blood cultures are pending blood pressure is low today 96/60 asymptomatic plan is to decrease the Lasix from 80 mg twice a day to 40 mg twice a day and continue the other management. Latest EF is 20 to 25%. 10/07/[id number]-ufbu-old female with history of cardiomyopathy admitted with acute on chronic systolic heart failure. Doing much better. Negative fluid balance of 1200 cc yesterday. Latest echocardiogram shows EF of 20 to 25%. Presently on Lasix 40 mg p.o. twice daily plan is to hold the Lasix for today because latest blood pressure is 98/60. And is to continue Entresto. (2) Pneumonia Qualifiers: Pneumonia type: due to unspecified organism Laterality: right Lung location: lower lobe of lung Qualified Code(s): J18.1 - Lobar pneumonia, unspecified organism Is this a current diagnosis for this admission?: Yes Plan: 10/04/2018-chest x-ray indicated persistent right lower lobe pneumonia blood cultures are requested started on IV Rocephin and IV Zithromax. Likely community-acquired pneumonia. Gram-positive organisms may be responsible 10/05/2018-admission chest x-ray indicated persistent right basilar pneumonia blood cultures are pending and patient is presently on IV Rocephin and Zithromax probably she has community-acquired pneumonia and gram-positive organisms may be responsible. 10/06/2018-patient chest x-ray yesterday shows persistent pulmonary alveolar edema on Lasix 80 mg twice a day because the blood pressures are running low plan is to decrease the Lasix to 40 twice daily and closely monitor the pulse ox 10/07/2018-chest x-ray this morning indicates slight worsening of the bilateral airspace disease. Afebrile. Blood cultures are negative. Plan is to continue antibiotic therapy IV Rocephin and Zithromax. Most likely she has a community- acquired pneumonia caused by gram-positive organisms. (3) Acute respiratory failure with hypoxia Is this a current diagnosis for this admission?: Yes Plan: Patient is treated initially with BiPAP support and will be intubated if necessary to maintain adequate oxygenation. 10/04/2018-patient admitted with the acute on chronic respiratory failure with hypoxia most likely secondary to right lower lobe pneumonia and exacerbation of CHF. Started on IV Rocephin and IV Zithromax blood cultures requested. ABG this morning pH is 7.35/PCO2 49 PO2 63 bicarb is 27 this is on 50% oxygen. Plan is to continue the nebulizer treatments. 10/05/2018-patient admitted with acute on chronic respiratory failure with hypoxia most likely secondary to exacerbation of CHF and underlying pneumonia. Pulse oxes improving. 10/06/[id number]-sgws-old female admitted with acute on chronic respiratory failure with hypoxia requiring BiPAP in the emergency room. She is doing better. Reason for hypoxia most likely secondary to pneumonia and acute on chronic systolic heart failure presently she is on BiPAP during sleep while she is awake she is on 4 L oxygen pulse ox is 97% on 4 L. And is to continue the present management and to do the chest x-ray tomorrow. 10/07/2018-patient admitted with acute respiratory failure with hypoxia most l ikely secondary to underlying pneumonia and exacerbation of CHF. Pulse oxes are improving patient is on BiPAP only during sleep. Pulse ox this morning is 98% on BiPAP. (4) HTN (hypertension) Qualifiers: Hypertension type: essential hypertension Qualified Code(s): I10 - Essential (primary) hypertension Is this a current diagnosis for this admission?: Yes Plan: Patient's blood pressure monitored closely throughout her hospital course. In itially her blood pressure will be treated with an intravenous infusion of nitroglycerin as part of treating her acute pulmonary edema. 10/04/2018-patient came in with hypertensive emergency on nitroglycerin drip until this morning. Blood pressure is improved to 138/80 she also received 40 mg of IV Lasix in the ER she was started on torsemide 100 mg p.o. daily. Plan is to discontinue nitro drip. pt is on Entresto. 10/05/2018-patient admitted with hypertensive emergency and blood pressure this m orning he is 135/96 much improved. Plan is to resume Entresto 1 tablet twice daily, Lasix 80 mg twice daily and isosorbide along with metoprolol. 10/06/2018-patient admitted with hypertensive emergency which was resolved actually today blood pressure is low 96/62 decrease the Lasix to 40 mg twice a day. 10/07/2018-patient was admitted with hypertensive emergency but since yesterday blood pressures are low normal to hold her Lasix from today stop metoprolol because of bradycardia and reevaluate blood pressures this afternoon and tomorrow. (5) Morbid obesity Is this a current diagnosis for this admission?: No Plan: 10/04/2018-patient BMI is more than 41 diet exercise weight loss lifestyle modifications are discussed with the patient. 10/07/2018-patient's BMI is more than 42 diet exercise weight loss lifestyle modifications are discussed with the patient. Dietary consult was requested. (6) CKD (chronic kidney disease) Is this a current diagnosis for this admission?: No Plan: 10/04/2018-patient has history of chronic kidney disease creatinine is 1.35. Stable. 82,019-patient is admitted with creatinine of 1.35 improved to 1.18 BENNY may be secondary to exacerbation of CHF. 10/06/2018-patient's creatinine today is 1.42 slightly elevated compared to yes terday. We could continue to closely watch her kidney function on regular basis. 10/07/2018-patient serum creatinine today is 1.39 slightly improved. BENNY is resolving. She has baseline creatinine is around 1.1. (7) Cardiomyopathy Qualifiers: Cardiomyopathy type: ischemic Qualified Code(s): I25.5 - Ischemic cardiomyopathy Is this a current diagnosis for this admission?: Yes Plan: Patient be continued on her usual medications for treatment of her cardiomyopathy. Her cardiac status to be monitored closely in the ICU. 10/04/2018-patient has history of ischemic and dilated cardiomyopathy plan is to continue Entresto and beta-blockers. 09/2018-patient has history of combined ischemic/dilated cardiomyopathy plan is to continue Entresto and beta-blockers. 2018-latest EF is 20 to 25% she has a cardiomyopathy most likely combination of ischemia and dilated cardiomyopathy. Patient is on Entresto and metoprolol plan is to continue those medications. 10/07/2018-patient has history of cardiomyopathy on Entresto and she is also on apixaban. To hold beta-blockers because of the bradycardia. (8) Atrial fibrillation Is this a current diagnosis for this admission?: No Plan: 10/04/2018-patient has history of small atrial fibrillation on apixaban plan is to continue the present management. 10/05/2018-patient has a chronic history of chronic atrial fibrillation on apixaban plan is to continue the present management and to continue metoprolol. 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 10/06/2018-patient has history of atrial fibrillation rate controlled heart rate is 60 on metoprolol plan is to continue the present management. 10/07/2018-heart rate is around 56 this morning to hold metoprolol and patient has AICD. (9) Ventricular tachycardia Is this a current diagnosis for this admission?: No - Time Time Spent with patient: 25-34 minutes Medications reviewed and adjusted accordingly: Yes Anticipated discharge: Home
[2018-10-07] MEDS: AZITHROMYCIN 500 MG in DEXTROSE 5%-WATER 250 ML IV SCH (11:37)
[2018-10-07] MEDS: OXYCODONE-ACETAMINOPHEN 5-325 MG TABLET PO PRN (13:19)
[2018-10-07] MEDS: ACETAMINOPHEN 325 MG TABLET PO PRN (17:43)
[2018-10-07] MEDS ORDERED: NORMAL SALINE 1000 ML 500 ML IV ONE (19:30)
[2018-10-07] MEDS: LEVALBUTEROL HCL NEB 0.63 MG/3 ML AMPUL NEB PRN (19:30)
[2018-10-07] MEDS: ATORVASTATIN CALCIUM 80 MG TABLET PO SCH (21:31)
[2018-10-07] MEDS: ALPRAZOLAM 0.5 MG TABLET PO PRN (21:31)
[2018-10-07] MEDS: MELATONIN 1 MG TABLET PO SCH (21:32)
[2018-10-08] MEDS: LEVALBUTEROL HCL NEB 1.25 MG/3 ML AMPUL NEB SCH ×3 (00:04→15:46)
[2018-10-08] MEDS: IPRATROPIUM BROMIDE 0.02% NEB 0.5 MG/2.5 ML AMPUL NEB SCH ×3 (00:04→15:46)
[2018-10-08] MEDS: PANTOPRAZOLE SODIUM 40 MG TABLET.DR PO SCH ×2 (05:26→18:00)
[2018-10-08] MEDS: CLONAZEPAM 1 MG TABLET PO SCH ×3 (05:26→21:26)
[2018-10-08 06:22] LABS: ANION GAP 5 (5-19); BLOOD UREA NITROGEN 15 mg/dL (7-20); CALCIUM 8.9 mg/dL (8.4-10.2); CARBON DIOXIDE 35 mmol/L (22-30); CHLORIDE 101 mmol/L (98-107); GLUCOSE 95 mg/dL (75-110); POTASSIUM 3.8 mmol/L (3.6-5.0)
[2018-10-08] MEDS ORDERED: NORMAL SALINE 1000 ML 500 ML IV ONE (07:35)
[2018-10-08] MEDS: BUDESONIDE NEB 0.5 MG/2 ML AMPUL NEB SCH ×2 (08:12→19:55)
--- NOTE | 2018-10-08 09:34 | PDOC PROGRESS REPORT ---
Subjective Progress Note for:: 10/08/18 Subjective:: 47 year old female who presented to the emergency room with acute severe dyspnea. She admits shortness of breath rapidly worsening over the course of the day and becoming severe on the evening of 10/03/2018. She admits accompanying orthopnea but denies other accompanying or associated signs and symptoms. She admits numerous prior similar episodes with exacerbations of her oxygen dependent (3L/min continuous) COPD or sudden worsening of her congestive heart failure. She has not identified any aggravating or ameliorating factors for her acute dyspnea. In the emergency room she was found to have a BNP greater than the upper measurable limit of 11,000 and a chest x-ray showing cardiomegaly with acute pulmonary edema. She was placed on BiPAP therapy and subsequently moved to the ICU for further evaluation and treatment. 10/04/[id number]-omaf-old female admitted with severe shortness of breath secondary to acute exacerbation of chronic congestive heart failure. She has history of cardiomyopathy with EF of 20 to 25%, she is also history of paroxysmal atrial fibrillation on apixaban, history of ventricular tachycardia and AICD, obesity, COPD, history of coronary artery disease with a stent placement, history of AR admitted for shortness of breath. Presently on BiPAP. She is also came in with hypertensive emergency on nitro drip latest blood pressure is 138/80. Plan is to discontinue nitro drip. Presently on torsemide 100 mg p.o. daily. No acute events since the admission. 10/05/[id number]-ropz-old female with history of cardiomyopathy with multiple admissions for acute on chronic congestive heart failure admitted for severe shortness of breath requesting requiring BiPAP at the time of admission. She is in fluid overload at the time of admission. Urinary output is good and fluid balance is -2.1 L in the last 24 hours. Patient is comfortably in the bed communicating well denies any problems. As per the patient the nurse she is more comfortable on BiPAP while sleeping. No acute events in the last 24 hours afebrile. 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 yesterday. Stable. Urinary output is good. Patient is on furosemide 80 mg p.o. twice daily blood pressure is 96/60 this morning asymptomatic plan is to decrease the Lasix to 40 p.o. twice daily. We will continue the other medications. She is also receiving IV antibiotic therapy for left-sided pneumonia. Cultures are negative so far. Patient uses BiPAP at night to sleep on nasal cannula daytime she is getting up and going to the restroom without any problems. 10/07/[id number]-ronl-old female with history of cardiomyopathy admitted with acute on chronic heart failure. Doing well. Presently on Lasix 40 mg p.o. twice a day blood pressures are running low last night. She is also bradycardic. She has history of atrial fibrillation and ventricular tachycardia and AICD. Plan is to discontinue metoprolol today and to discontinue Lasix for today. To r eevaluate the patient's blood pressures on daily basis. Negative fluid balance of 1200 mL in the last 24 hrs. 10/08/[id number]-wkbl-old female with history of cardiomyopathy with EF of 20 to 25% admitted with acute on chronic heart failure. Blood pressures are running low we stop her Lasix yesterday given 500 cc of IV fluid bolus blood pressure still low this morning 91/65. Plan to give another half liter of IV fluid today. Heart rate is 58 we discontinued metoprolol yesterday. Patient is comfortably sleeping in the bed without BiPAP pulse ox is 98% on 2 L this morning. X-ray indicating worsening of the opacifications we are going to do the follow-up chest x-ray tomorrow. Reason For Visit: ACUTE PULMONARY EDEMA, ACUTE RESPIRATORY FAILURE Physical Exam Vital Signs: Temp Pulse Resp BP Pulse Ox 97.7 F 58 L 18 91/65 L 98 10/08/18 04:00 10/08/18 04:00 10/08/18 04:00 10/08/18 04:00 10/08/18 04:00 Intake & Output 10/07/18 10/08/18 10/09/18 06:59 06:59 06:59 Intake Total 690 1972 Output Total 8310 6821 Balance -1260 -528 Weight 114.7 kg 116.6 kg General appearance: PRESENT: no acute distress, morbidly obese Head exam: PRESENT: atraumatic Eye exam: PRESENT: PERRLA Mouth exam: PRESENT: moist, tongue midline Teeth exam: PRESENT: poor dentation Neck exam: ABSENT: carotid bruit, JVD, lymphadenopathy, thyromegaly Respiratory exam: PRESENT: crackles, decreased breath sounds Cardiovascular exam: PRESENT: irregular rhythm. ABSENT: diastolic murmur, rubs, systolic murmur GI/Abdominal exam: PRESENT: normal bowel sounds, soft. ABSENT: distended, guarding, mass, organolmegaly, rebound, tenderness Rectal exam: PRESENT: deferred Extremities exam: PRESENT: full ROM. ABSENT: calf tenderness, clubbing, pedal edema Neurological exam: PRESENT: alert, awake, oriented to person, oriented to place, oriented to time, oriented to situation, CN II-XII grossly intact. ABSENT: motor sensory deficit Psychiatric exam: PRESENT: appropriate affect, normal mood. ABSENT: homicidal ideation, suicidal ideation Results Laboratory Results: 10/07/18 05:49 10/08/18 05:19 10/08/18 05:19 Sodium 140.8 Potassium 3.8 Chloride 101 Carbon Dioxide 35 H Anion Gap 5 BUN 15 Creatinine 1.26 H Est GFR ( Amer) 55 L Est GFR (Non-Af Amer) 46 L Glucose 95 Calcium 8.9 10/04/18 10/04/18 10/04/18 01:05 07:30 07:30 Creatine Kinase 84 CK-MB (CK-2) 1.01 Troponin I 0.040 0.050 NT-Pro-B Natriuret Pep 17895 H 10/04/18 10/04/18 10/04/18 13:22 13:22 19:09 Creatine Kinase 76 73 CK-MB (CK-2) 1.25 Troponin I 0.040 NT-Pro-B Natriuret Pep 10/04/18 10/05/18 10/05/18 19:09 04:11 05:33 Creatine Kinase CK-MB (CK-2) 1.27 Troponin I 0.028 NT-Pro-B Natriuret Pep Cancelled 2920 H 10/06/18 03:57 Creatine Kinase CK-MB (CK-2) Troponin I NT-Pro-B Natriuret Pep 662 H Impressions: Chest X-Ray 10/07/18 06:00 IMPRESSION: Increasing airspace opacities in both lung bases. No significant pleural effusion. Assessment and Plan - Diagnosis (1) Acute on chronic systolic (congestive) heart failure Is this a current diagnosis for this admission?: Yes Plan: 10/04/2018-patient admitted with acute on chronic systolic heart failure with EF of 20 to 25%. Patient is on Entresto and also on torsemide 100 mg p.o. at this time. Plan is to add Lasix 40 mg IV twice daily. His catheter was requested planning to arrange for strict input output chart and a fluid restriction 1500 cc/day. 10/05/[id number]-lijb-old female with history of cardiomyopathy admitted with severe shortness of breath secondary to acute on chronic systolic heart failure EF is 20 to 25% she has history of ventricular tachycardia and has AICD. She was on Lasix 40 mg IV daily and she received torsemide also yesterday fluid balance is -2.1 L yesterday. Pulse oxes are much improved and chest x-ray looks stable. In my opinion patient can go to [facility] today. 10/06/20182275-72-fibe-old female with history of mixed/dilated cardiomyopathy admitted with acute on chronic systolic heart failure and right-sided pneumonia she is urinating well and pulse oxes are improving she is also getting treatment for right basilar pneumonia with IV antibiotic therapy afebrile blood cultures are pending blood pressure is low today 96/60 asymptomatic plan is to decrease the Lasix from 80 mg twice a day to 40 mg twice a day and continue the other management. Latest EF is 20 to 25%. 10/07/[id number]-pjvb-old female with history of cardiomyopathy admitted with acute on chronic systolic heart failure. Doing much better. Negative fluid balance of 1200 cc yesterday. Latest echocardiogram shows EF of 20 to 25%. Presently on Lasix 40 mg p.o. twice daily plan is to hold the Lasix for today because latest blood pressure is 98/60. And is to continue Entresto.\\ 10/08/[id number]-rbff-old female with history of cardiomyopathy due to combination of mixed under dilated cardiomyopathy with EF of 20 to 25% admitted for acute on chronic congestive heart failure she received IV Lasix during the hospital stay then switch to p.o. Lasix since yesterday blood pressures are running low Lasix was on hold given 500 cc of IV fluid yesterday we plan to give another 500 cc of normal saline bolus this morning patient is asymptomatic blood pressure is 91/65. Euvolemic. Plan is to repeat the labs and chest x-ray tomorrow. (2) Pneumonia Qualifiers: Pneumonia type: due to unspecified organism Laterality: right Lung location: lower lobe of lung Qualified Code(s): J18.1 - Lobar pneumonia, unspecified organism Is this a current diagnosis for this admission?: Yes Plan: 10/04/2018-chest x-ray indicated persistent right lower lobe pneumonia blood cultures are requested started on IV Rocephin and IV Zithromax. Likely community-acquired pneumonia. Gram-positive organisms may be responsible 10/05/2018-admission chest x-ray indicated persistent right basilar pneumonia blood cultures are pending and patient is presently on IV Rocephin and Zithromax probably she has community-acquired pneumonia and gram-positive organisms may be responsible. 10/06/2018-patient chest x-ray yesterday shows persistent pulmonary alveolar edema on Lasix 80 mg twice a day because the blood pressures are running low plan is to decrease the Lasix to 40 twice daily and closely monitor the pulse ox 10/07/2018-chest x-ray this morning indicates slight worsening of the bilateral airspace disease. Afebrile. Blood cultures are negative. Plan is to continue antibiotic therapy IV Rocephin and Zithromax. Most likely she has a community- acquired pneumonia caused by gram-positive organisms. 10/08/2018-patient on azithromycin and IV Rocephin blood cultures are negative so far chest x-ray this morning indicating worsening of the opacifications. Patient is afebrile with a WBC count of 3700. Pulse ox of 98%. (3) Acute respiratory failure with hypoxia Is this a current diagnosis for this admission?: Yes Plan: Patient is treated initially with BiPAP support and will be intubated if necessary to maintain adequate oxygenation. 10/04/2018-patient admitted with the acute on chronic respiratory failure with hypoxia most likely secondary to right lower lobe pneumonia and exacerbation of CHF. Started on IV Rocephin and IV Zithromax blood cultures requested. ABG this morning pH is 7.35/PCO2 49 PO2 63 bicarb is 27 this is on 50% oxygen. Plan is to continue the nebulizer treatments. 10/05/2018-patient admitted with acute on chronic respiratory failure with hypoxia most likely secondary to exacerbation of CHF and underlying pneumonia. Pulse oxes improving. 10/06/[id number]-kipz-old female admitted with acute on chronic respiratory failure with hypoxia requiring BiPAP in the emergency room. She is doing better. Reason for hypoxia most likely secondary to pneumonia and acute on chronic systolic heart failure presently she is on BiPAP during sleep while she is awake she is on 4 L oxygen pulse ox is 97% on 4 L. And is to continue the present management and to do the chest x-ray tomorrow. 10/07/2018-patient admitted with acute respiratory failure with hypoxia most likely secondary to underlying pneumonia and exacerbation of CHF. Pulse oxes are improving patient is on BiPAP only during sleep. Pulse ox this morning is 98% on BiPAP. 10/08/2018-admitted with acute respiratory failure with hypoxia most likely secondary to pneumonia and acute exacerbation of CHF pulse ox is 98% this morning. Chest x-ray suggestive of worsening of the opacifications but the patient is afebrile and WBC count is normal plan is to continue azithromycin and ceftriaxone. (4) HTN (hypertension) Qualifiers: Hypertension type: essential hypertension Qualified Code(s): I10 - Essential (primary) hypertension Is this a current diagnosis for this admission?: Yes Plan: Patient's blood pressure monitored closely throughout her hospital course. Initially her blood pressure will be treated with an intravenous infusion of nitroglycerin as part of treating her acute pulmonary edema. 10/04/2018-patient came in with hypertensive emergency on nitroglycerin drip until this morning. Blood pressure is improved to 138/80 she also received 40 mg of IV Lasix in the ER she was started on torsemide 100 mg p.o. daily. Plan is to discontinue nitro drip. pt is on Entresto. 10/05/2018-patient admitted with hypertensive emergency and blood pressure this morning he is 135/96 much improved. Plan is to resume Entresto 1 tablet twice daily, Lasix 80 mg twice daily and isosorbide along with metoprolol. 10/06/2018-patient admitted with hypertensive emergency which was resolved actually today blood pressure is low 96/62 decrease the Lasix to 40 mg twice a day. 10/07/2018-patient was admitted with hypertensive emergency but since yesterday blood pressures are low normal to hold her Lasix from today stop metoprolol because of bradycardia and reevaluate blood pressures this afternoon and tomorrow. 10/08/2018-patient is hypotensive for the last 48 hours diuretics are on hold patient received 500 cc of normal saline bolus yesterday still blood pressure is 91/65 this morning plan to give another 500 cc of normal saline bolus and continue to monitor the blood pressures. Patient is asymptomatic. (5) Morbid obesity Is this a current diagnosis for this admission?: No (6) CKD (chronic kidney disease) Is this a current diagnosis for this admission?: No Plan: 10/04/2018-patient has history of chronic kidney disease creatinine is 1.35. Stable. 82,019-patient is admitted with creatinine of 1.35 improved to 1.18 BENNY may be secondary to exacerbation of CHF. 10/06/2018-patient's creatinine today is 1.42 slightly elevated compared to yesterday. We could continue to closely watch her kidney function on regular basis. 10/07/2018-patient serum creatinine today is 1.39 slightly improved. BENNY is resolving. She has baseline creatinine is around 1.1. 10/08/2018-patient serum creatinine is 1.26 today improving patient's baseline creatinine is around 1.1. Nonoliguric. (7) Cardiomyopathy Qualifiers: Cardiomyopathy type: ischemic Qualified Code(s): I25.5 - Ischemic cardiomyopathy Is this a current diagnosis for this admission?: Yes (8) Atrial fibrillation Is this a current diagnosis for this admission?: No Plan: 10/04/2018-patient has history of small atrial fibrillation on apixaban plan is to continue the present management. 10/05/2018-patient has a chronic history of chronic atrial fibrillation on apixaban plan is to continue the present management and to continue metoprolol. 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 10/06/2018-patient has history of atrial fibrillation rate controlled heart rate is 60 on metoprolol plan is to continue the present management. 10/07/2018-heart rate is around 56 this morning to hold metoprolol and patient has AICD. 10/08/2018-patient's heart rate is 59 metoprolol is on hold plan is to continue to give her a apixaban. Patient has AICD. (9) Ventricular tachycardia Is this a current diagnosis for this admission?: No - Time Time Spent with patient: 25-34 minutes Medications reviewed and adjusted accordingly: Yes Anticipated discharge: Home
[2018-10-08] MEDS: MORPHINE SULFATE 10 MG/ML INJ IV PRN ×3 (09:46→21:37)
[2018-10-08] MEDS: DOCUSATE SODIUM 100 MG CAPSULE PO SCH ×2 (09:47→18:51)
[2018-10-08] MEDS: BUSPIRONE HCL 10 MG TABLET PO SCH ×2 (09:47→21:26)
[2018-10-08] MEDS: ALPRAZOLAM 0.5 MG TABLET PO PRN (09:47)
[2018-10-08] MEDS: FAMOTIDINE 20 MG TABLET PO SCH ×2 (09:48→21:27)
[2018-10-08] MEDS: APIXABAN 5 MG TABLET PO SCH ×2 (09:48→18:52)
[2018-10-08] MEDS: ASPIRIN 81 MG TABLET, ENT COATED PO SCH (09:49)
[2018-10-08] MEDS: ISOSORBIDE MONONITRATE 60 MG TAB.ER.24H PO SCH (09:49)
[2018-10-08] MEDS: SACUBITRIL/VALSARTAN 49 MG/51 MG TABLET PO SCH ×2 (09:50→21:27)
[2018-10-08] MEDS: PAROXETINE HCL 20 MG TABLET PO SCH (09:50)
[2018-10-08] MEDS: CEFTRIAXONE SODIUM 2,000 MG in DEXTROSE 5%-WATER 100 ML IV SCH (09:57)
[2018-10-08] MEDS: AZITHROMYCIN 500 MG in DEXTROSE 5%-WATER 250 ML IV SCH (10:22)
[2018-10-08] MEDS: OXYCODONE-ACETAMINOPHEN 5-325 MG TABLET PO PRN (15:07)
[2018-10-08] MEDS: LEVALBUTEROL HCL NEB 0.63 MG/3 ML AMPUL NEB PRN (19:55)
[2018-10-08] MEDS: ATORVASTATIN CALCIUM 80 MG TABLET PO SCH (21:26)
[2018-10-08] MEDS: MELATONIN 1 MG TABLET PO SCH (21:27)
[2018-10-09] MEDS: IPRATROPIUM BROMIDE 0.02% NEB 0.5 MG/2.5 ML AMPUL NEB SCH ×3 (00:06→16:06)
[2018-10-09] MEDS: LEVALBUTEROL HCL NEB 1.25 MG/3 ML AMPUL NEB SCH ×3 (00:06→16:06)
[2018-10-09] MEDS: CLONAZEPAM 1 MG TABLET PO SCH ×3 (05:56→21:51)
[2018-10-09] MEDS: PANTOPRAZOLE SODIUM 40 MG TABLET.DR PO SCH ×2 (05:56→18:00)
[2018-10-09 05:57] LABS: ABSOLUTE BASOPHILS # (AUTO) 0.1 10^3/uL (0.0-0.2); ABSOLUTE MONOCYTES (AUTO) 0.4 10^3/uL (0.1-1.4); ABSOLUTE NEUT (AUTO) 3.2 10^3/uL (1.7-8.2); BASOPHILS % (AUTO) 1.2 % (0-2); EOSINOPHILS % (AUTO) 0.6 % (0-6); HEMATOCRIT 31.7 % (36.0-47.0); HEMOGLOBIN 10.2 g/dL (12.0-15.5); LYMPHOCYTES % (AUTO) 20.8 % (13-45); MEAN CORPUSCULAR HEMOGLOBIN 28.2 pg (27.0-33.4); MEAN CORPUSCULAR HGB CONC 32.1 g/dL (32.0-36.0); MEAN CORPUSCULAR VOLUME 88 fl (80-97); MONOCYTES % (AUTO) 8.7 % (3-13); PLATELET COUNT 287 10^3/uL (150-450); RED BLOOD COUNT 3.61 10^6/uL (3.72-5.28); SEGMENTED NEUTROPHILS % (AUTO) 68.7 % (42-78); TOTAL CELLS COUNTED % (AUTO) 100 %; WHITE BLOOD COUNT 4.6 10^3/uL (4.0-10.5)
[2018-10-09 06:17] LABS: ALBUMIN 3.1 g/dL (3.5-5.0); ALKALINE PHOSPHATASE 62 U/L (38-126); ANION GAP 6 (5-19); ASPARTATE AMINO TRANSFERASE 18 U/L (14-36); BILIRUBIN,DIRECT 0.3 mg/dL (0.0-0.4); BILIRUBIN,TOTAL 0.4 mg/dL (0.2-1.3); BLOOD UREA NITROGEN 13 mg/dL (7-20); CALCIUM 9.2 mg/dL (8.4-10.2); CARBON DIOXIDE 34 mmol/L (22-30); CHLORIDE 102 mmol/L (98-107); GLUCOSE 100 mg/dL (75-110); TOTAL PROTEIN 5.9 g/dL (6.3-8.2)
[2018-10-09] MEDS: BUDESONIDE NEB 0.5 MG/2 ML AMPUL NEB SCH ×2 (07:45→19:43)
[2018-10-09] MEDS: MORPHINE SULFATE 10 MG/ML INJ IV PRN ×3 (08:29→14:51)
--- NOTE | 2018-10-09 09:35 | RADIOLOGY REPORT (SQ) ---
EXAM DESCRIPTION: CT CHEST WITHOUT COMPLETED DATE/TIME: 10/09/2018 8:41 am REASON FOR STUDY: Pneumonia COMPARISON: 07/20/2018. TECHNIQUE: CT scan performed of the chest without intravenous contrast. Images reviewed with lung, soft tissue and bone windows. Reconstructed coronal and sagittal MPR images reviewed. All images st ored on PACS. All CT scanners at this facility use dose modulation, iterative reconstruction, and/or weight based d osing when appropriate to reduce radiation dose to as low as reasonably achievable (ALARA). [facility]: Dose Right [facility]: CareDose [facility]: Dose Right [facility]: Teradose 4D [facility]: OneRoof RADIATION DOSE: CT Rad equipment meets quality standard of care and radiation dose reduction techniq ues were employed. CTDIvol: 19.0 mGy. DLP: 749 mGy-cm. mGy. LIMITATIONS: No technical limitations. FINDINGS: LUNGS AND PLEURA: Diffuse scattered bilateral ground-glass opacities. No lobar consolidat ion or air bronchograms. No pleural effusion. No pneumothorax. HILAR AND MEDIASTINAL STRUCTURES: No identified masses or abnormal nodes. No obvious aneurysm. HEART AND VASCULAR STRUCTURES: No aneurysm. Cardiomegaly. No pericardial effusion. UPPER ABDOMEN: Diffuse increased attenuation of the liver. Limited exam. THYROID AND OTHER SOFT TISSUES: No masses. No adenopathy. BONES: No significant finding. HARDWARE: Sternotomy wires. Defibrillator. OTHER: No other significant findings. IMPRESSION: DIFFUSE BILATERAL GROUND-GLASS OPACITIES. SIMILAR APPEARANCE TO THE PREVIOUS CT. DIFFE RENTIAL INCLUDES AMIODARONE TOXICITY, PULMONARY EDEMA, OR PNEUMONITIS. TECHNICAL DOCUMENTATION: JOB ID: [id number] Quality ID # [id number]: Final reports with documentation of one or more dose reduction techniques (e.g., Au tomated exposure control, adjustment of the mA and/or kV according to patient size, use of iterative reconstruction technique) 2010 [employer]- All Rights Reserved Reading location - IP/workstation name: [email or web address]
[2018-10-09] MEDS: AZITHROMYCIN 500 MG in DEXTROSE 5%-WATER 250 ML IV SCH (09:40)
[2018-10-09] MEDS: BUSPIRONE HCL 10 MG TABLET PO SCH ×2 (09:50→21:51)
[2018-10-09] MEDS: ISOSORBIDE MONONITRATE 60 MG TAB.ER.24H PO SCH (09:55)
[2018-10-09] MEDS: ASPIRIN 81 MG TABLET, ENT COATED PO SCH (09:56)
[2018-10-09] MEDS: FAMOTIDINE 20 MG TABLET PO SCH ×2 (09:56→21:51)
[2018-10-09] MEDS: ALPRAZOLAM 0.5 MG TABLET PO PRN (09:56)
[2018-10-09] MEDS: DOCUSATE SODIUM 100 MG CAPSULE PO SCH ×2 (09:56→18:44)
[2018-10-09] MEDS: APIXABAN 5 MG TABLET PO SCH ×2 (09:56→18:44)
[2018-10-09] MEDS: SACUBITRIL/VALSARTAN 49 MG/51 MG TABLET PO SCH ×2 (09:58→21:51)
[2018-10-09] MEDS: PAROXETINE HCL 20 MG TABLET PO SCH (09:58)
[2018-10-09] MEDS: CEFTRIAXONE SODIUM 2,000 MG in DEXTROSE 5%-WATER 100 ML IV SCH (10:59)
[2018-10-09] MEDS ORDERED: ONDANSETRON HCL 8 MG TABLET PO PRN (12:16)
[2018-10-09] MEDS ORDERED: HYDRALAZINE HCL INJ/PF 20 MG/1 ML SDV IV PRN (12:30)
[2018-10-09] MEDS ORDERED: ONDANSETRON 4 MG TAB.RAPDIS PO PRN (12:30)
[2018-10-09] MEDS: NYSTATIN CREAM 15 GM TP SCH ×2 (14:49→18:46)
[2018-10-09] MEDS: OXYCODONE-ACETAMINOPHEN 5-325 MG TABLET PO PRN (18:47)
--- NOTE | 2018-10-09 20:47 | PDOC PROGRESS REPORT ---
Subjective Progress Note for:: 10/09/18 Subjective:: Back to 3 L nasal cannula baseline. Sitting eating lunch. Appears comfortable. She states that she uses the BiPAP at night mostly. Reason For Visit: ACUTE PULMONARY EDEMA, ACUTE RESPIRATORY FAILURE Physical Exam Vital Signs: Temp Pulse Resp BP Pulse Ox 98.7 F 59 L 18 100/65 100 10/09/18 10:56 10/09/18 10:56 10/09/18 10:56 10/09/18 10:56 10/09/18 10:56 Intake & Output 10/08/18 10/09/18 10/10/18 06:59 06:59 06:59 Intake Total 1972 2928 400 Output Total 2500 300 Balance -528 2628 400 Weight 116.6 kg 115 kg General appearance: PRESENT: no acute distress, cooperative, morbidly obese, other - Eating lunch Head exam: PRESENT: atraumatic, normocephalic Eye exam: PRESENT: conjunctiva pink. ABSENT: scleral icterus Ear exam: PRESENT: normal external ear exam Mouth exam: PRESENT: moist, tongue midline Respiratory exam: PRESENT: rales - Bilateral bases, symmetrical, unlabored. ABSENT: rhonchi, tachypnea, wheezes Cardiovascular exam: PRESENT: RRR, +S1, +S2 GI/Abdominal exam: PRESENT: normal bowel sounds, soft. ABSENT: distended, tenderness Rectal exam: PRESENT: deferred Extremities exam: ABSENT: calf tenderness, joint swelling, pedal edema Neurological exam: PRESENT: alert, awake, oriented to person, oriented to place, oriented to time, oriented to situation, CN II-XII grossly intact Psychiatric exam: PRESENT: appropriate affect, normal mood. ABSENT: agitated, anxious Focused psych exam: ABSENT: delusional, restlessness Skin exam: PRESENT: dry, normal color, warm Results Laboratory Results: 10/09/18 05:35 10/09/18 05:35 10/09/18 10/09/18 05:35 05:35 WBC 4.6 RBC 3.61 L Hgb 10.2 L Hct 31.7 L MCV 88 MCH 28.2 MCHC 32.1 RDW 18.0 H Plt Count 287 Seg Neutrophils % 68.7 Lymphocytes % 20.8 Monocytes % 8.7 Eosinophils % 0.6 Basophils % 1.2 Absolute Neutrophils 3.2 Absolute Lymphocytes 1.0 Absolute Monocytes 0.4 Absolute Eosinophils 0.0 Absolute Basophils 0.1 Sodium 142.1 Potassium 4.0 Chloride 102 Carbon Dioxide 34 H Anion Gap 6 BUN 13 Creatinine 1.24 Est GFR ( Amer) 56 L Est GFR (Non-Af Amer) 47 L Glucose 100 Calcium 9.2 Magnesium 2.1 Total Bilirubin 0.4 AST 18 Alkaline Phosphatase 62 Total Protein 5.9 L Albumin 3.1 L 10/04/18 10:31 Blood Blood Culture - Final NO GROWTH IN 5 DAYS 10/04/18 09:54 Blood Blood Culture - Final NO GROWTH IN 5 DAYS 10/04/18 10/04/18 10/04/18 01:05 07:30 07:30 Creatine Kinase 84 CK-MB (CK-2) 1.01 Troponin I 0.040 0.050 NT-Pro-B Natriuret Pep 50796 H 10/04/18 10/04/18 10/04/18 13:22 13:22 19:09 Creatine Kinase 76 73 CK-MB (CK-2) 1.25 Troponin I 0.040 NT-Pro-B Natriuret Pep 10/04/18 10/05/18 10/05/18 19:09 04:11 05:33 Creatine Kinase CK-MB (CK-2) 1.27 Troponin I 0.028 NT-Pro-B Natriuret Pep Cancelled 2920 H 10/06/18 03:57 Creatine Kinase CK-MB (CK-2) Troponin I NT-Pro-B Natriuret Pep 662 H Impressions: Chest X-Ray 10/07/18 06:00 IMPRESSION: Increasing airspace opacities in both lung bases. No significant pleural effusion. Chest CT 10/09/18 00:00 IMPRESSION: DIFFUSE BILATERAL GROUND-GLASS OPACITIES. SIMILAR APPEARANCE TO THE PREVIOUS CT. DIFFERENTIAL INCLUDES AMIODARONE TOXICITY, PULMONARY EDEMA, OR PNEUMONITIS. Assessment and Plan - Diagnosis (1) Acute on chronic systolic (congestive) heart failure Is this a current diagnosis for this admission?: Yes Plan: The patient's blood pressure has been running low but because of her low eject ion fraction and high susceptibility to exacerbation of heart failure resumed metoprolol daily at a lower dose with the parameter to hold for bradycardia. In addition I resume Lasix at 40 mg twice daily (half of her normal dose) to avoid volume to accumulate. Will monitor closely. She will need to follow-up with cardiology as an outpatient. (2) Pneumonia Qualifiers: Pneumonia type: due to unspecified organism Laterality: right Lung location: lower lobe of lung Qualified Code(s): J18.1 - Lobar pneumonia, unspecified organism Is this a current diagnosis for this admission?: Yes Plan: 10/04/2018-chest x-ray indicated persistent right lower lobe pneumonia blood cultures are requested started on IV Rocephin and IV Zithromax. Likely community-acquired pneumonia. Gram-positive organisms may be responsible 10/05/2018-admission chest x-ray indicated persistent right basilar pneumonia blood cultures are pending and patient is presently on IV Rocephin and Zithromax probably she has community-acquired pneumonia and gram-positive organisms may be responsible. 10/06/2018-patient chest x-ray yesterday shows persistent pulmonary alveolar edema on Lasix 80 mg twice a day because the blood pressures are running low plan is to decrease the Lasix to 40 twice daily and closely monitor the pulse ox 10/07/2018-chest x-ray this morning indicates slight worsening of the bilateral airspace disease. Afebrile. Blood cultures are negative. Plan is to continue antibiotic therapy IV Rocephin and Zithromax. Most likely she has a community- acquired pneumonia caused by gram-positive organisms. 10/08/2018-patient on azithromycin and IV Rocephin blood cultures are negative so far chest x-ray this morning indicating worsening of the opacifications. Patient is afebrile with a WBC count of 3700. Pulse ox of 98%. 10/09/2018-I changed to oral antibiotic therapy in an effort to minimize volume. (3) Acute respiratory failure with hypoxia Is this a current diagnosis for this admission?: Yes Plan: The patient is using BiPAP mostly at night. She is on nasal cannula during the day. Her baseline at home is 3 L nasal cannula. (4) HTN (hypertension) Qualifiers: Hypertension type: essential hypertension Qualified Code(s): I10 - Essential (primary) hypertension Is this a current diagnosis for this admission?: Yes Plan: The patient's blood pressure has been running low. In fact she received fluids and no Lasix yesterday. Her metoprolol has been discontinued as well. I have added back metoprolol and furosemide at lower doses. With her ejection fraction of only 20% it would be expected that she would have low blood pressure. We will continue to monitor. (5) CKD (chronic kidney disease) Is this a current diagnosis for this admission?: Yes Plan: Patient serum creatinine is back to normal. Review of previous admission shows serum creatinine typically runs from 1.3-1.5. Believe she is gotten ahead on fluids and have resumed furosemide. She will likely return to baseline soon. (6) Cardiomyopathy Qualifiers: Cardiomyopathy type: ischemic Qualified Code(s): I25.5 - Ischemic cardiomyopathy Is this a current diagnosis for this admission?: Yes Plan: Continue current medications. Very depressed ejection fraction at 20 to 25% prognosis is poor with this decreased EF. (7) Morbid obesity Is this a current diagnosis for this admission?: Yes Plan: Her obesity puts more strain on the heart. At this point I do not think should be able to participate in exercise program. Aggressive diet management would be her only option. (8) Atrial fibrillation Is this a current diagnosis for this admission?: Yes Plan: Patient with borderline bradycardia despite limited metoprolol. Adjust medications to avoid severe bradycardia. (9) Ventricular tachycardia Is this a current diagnosis for this admission?: Yes Plan: Continue vibration analyst. No runs of V. tach noted. (10) Yeast dermatitis Is this a current diagnosis for this admission?: Yes Plan: Nystatin cream is been ordered - Time Time Spent with patient: 15-24 minutes Medications reviewed and adjusted accordingly: Yes Anticipated discharge: Home
[2018-10-09] MEDS: MELATONIN 1 MG TABLET PO SCH (21:51)
[2018-10-09] MEDS: ATORVASTATIN CALCIUM 80 MG TABLET PO SCH (21:51)
[2018-10-09] MEDS: CEFUROXIME 500 MG TABLET PO SCH (21:51)
[2018-10-10] MEDS: LEVALBUTEROL HCL NEB 1.25 MG/3 ML AMPUL NEB SCH ×3 (00:16→15:50)
[2018-10-10] MEDS: IPRATROPIUM BROMIDE 0.02% NEB 0.5 MG/2.5 ML AMPUL NEB SCH ×3 (00:16→15:50)
[2018-10-10] MEDS: MORPHINE SULFATE 10 MG/ML INJ IV PRN (00:46)
[2018-10-10] MEDS: CLONAZEPAM 1 MG TABLET PO SCH ×2 (05:26→14:44)
[2018-10-10] MEDS: PANTOPRAZOLE SODIUM 40 MG TABLET.DR PO SCH (05:26)
[2018-10-10] MEDS: OXYCODONE-ACETAMINOPHEN 5-325 MG TABLET PO PRN (05:33)
[2018-10-10 06:07] LABS: ANION GAP 6 (5-19); BLOOD UREA NITROGEN 11 mg/dL (7-20); CALCIUM 9.2 mg/dL (8.4-10.2); CARBON DIOXIDE 35 mmol/L (22-30); CHLORIDE 102 mmol/L (98-107); GLUCOSE 97 mg/dL (75-110); POTASSIUM 4.2 mmol/L (3.6-5.0)
[2018-10-10] MEDS: BUDESONIDE NEB 0.5 MG/2 ML AMPUL NEB SCH (08:11)
[2018-10-10] MEDS ORDERED: AZITHROMYCIN 250 MG TABLET PO SCH (10:00)
[2018-10-10] MEDS ORDERED: METOPROLOL SUCCINATE 25 MG TAB.SR.24H PO SCH (10:00)
[2018-10-10] MEDS ORDERED: FUROSEMIDE 40 MG TABLET PO SCH (10:00)
[2018-10-10] MEDS: PAROXETINE HCL 20 MG TABLET PO SCH (10:37)
[2018-10-10] MEDS: SACUBITRIL/VALSARTAN 49 MG/51 MG TABLET PO SCH (10:37)
[2018-10-10] MEDS: BUSPIRONE HCL 10 MG TABLET PO SCH (10:37)
[2018-10-10] MEDS: DOCUSATE SODIUM 100 MG CAPSULE PO SCH (10:38)
[2018-10-10] MEDS: ASPIRIN 81 MG TABLET, ENT COATED PO SCH (10:38)
[2018-10-10] MEDS: FAMOTIDINE 20 MG TABLET PO SCH (10:38)
[2018-10-10] MEDS: APIXABAN 5 MG TABLET PO SCH (10:38)
[2018-10-10] MEDS: CEFUROXIME 500 MG TABLET PO SCH (10:38)
[2018-10-10] MEDS: NYSTATIN CREAM 15 GM TP SCH (10:46)
[2018-10-10] MEDS: ISOSORBIDE MONONITRATE 60 MG TAB.ER.24H PO SCH (10:46)
--- NOTE | 2018-10-10 15:27 | PDOC DISCHARGE SUMMARY ---
General - Admit/Disc Date/PCP Admission Date/Primary Care Provider: 10/04/18 02:37 YI SANCHEZ, Discharge Date: 10/10/18 - Discharge Diagnosis (1) Acute respiratory failure with hypoxia Is this a current diagnosis for this admission?: Yes (2) Acute on chronic systolic congestive heart failure, NYHA class 3 Is this a current diagnosis for this admission?: Yes (3) Pneumonia Is this a current diagnosis for this admission?: Yes (4) Coronary artery disease Is this a current diagnosis for this admission?: Yes - Additional Information Resuscitation Status: Full Code Discharge Diet: Cardiac Discharge Activity: Activity As Tolerated, Balance Activity w/Rest, Weigh Daily Home Medications: Alprazolam [Xanax 0.5 mg Tablet] 0.5 mg PO Q6HP PRN 10/04/18 Amiodarone HCl [Cordarone 200 mg Tablet] 400 mg PO DAILY 10/04/18 Apixaban [Eliquis 5 mg Tablet] 5 mg PO BID 10/04/18 Aspirin [Adult Low Dose Aspirin EC] 81 mg PO DAILY 10/04/18 Atorvastatin Calcium [Lipitor 80 mg Tablet] 80 mg PO DAILY 10/04/18 Buspirone HCl [Buspar 10 mg Tablet] 10 mg PO BID 10/04/18 Famotidine [Pepcid 40 mg Tablet] 40 mg PO BID 10/04/18 Furosemide [Lasix 80 mg Tablet] 80 mg PO BID 10/04/18 Isosorbide Mononitrate [Imdur 60 mg Tablet.er] 60 mg PO DAILY 10/04/18 Melatonin 1 mg PO QHS 10/04/18 Metoprolol Succinate [Toprol Xl 50 mg Tab.sr] 50 mg PO DAILY 10/04/18 Nitroglycerin 0.4 mg SL Q5MP PRN 10/04/18 Oxycodone HCl/Acetaminophen [Percocet 5-325 mg Tablet] 1 tab PO Q6HP PRN 10/04/18 Paroxetine HCl [Paxil 20 mg Tablet] 20 mg PO DAILY 10/04/18 Sacubitril/Valsartan [Entresto 49 mg/51 mg Tablet] 1 tab PO BID 10/04/18 History of Present Illness History of Present Illness: FRANKI DEL ROSARIO is a 47 year old female who presented to the emergency room with acute severe dyspnea. She admits shortness of breath rapidly worsening over the course of the day and becoming severe on the evening of 10/03/2018. She admits accompanying orthopnea but denies other accompanying or associated signs and symptoms. She admits numerous prior similar episodes with exacerbations of her oxygen dependent (3L/min continuous) COPD or sudden worsening of her congestive heart failure. She has not identified any aggravating or ameliorating factors for her acute dyspnea. In the emergency room she was found to have a BNP greater than the upper measurable limit of 11,000 and a chest x-ray showing cardiomegaly with acute pulmonary edema. She was placed on BiPAP therapy and subsequently moved to the ICU for further evaluation and treatment. Hospital Course Hospital Course: This is 47 years old black female patient with past medical history of systolic congestive heart failure with ejection fraction of 20% status post AICD placement history of cocaine abuse presented with chief complaint of shortness of breath. Patient has been managed with acute on chronic congestive heart failure exacerbation with pulmonary edema and also for pneumonia. This morning patient seen resting in bed comfortably and she reports this her shortness of breath is currently at its baseline. Her vitals and blood works are unremarkable and patient is going to be discharged today and follow-up with her primary care physician or her primary line technician in 1 week. Physical Exam Vital Signs: Temp Pulse Resp BP Pulse Ox 98.9 F 59 L 18 118/86 H 99 10/10/18 10:36 10/10/18 10:36 10/10/18 10:36 10/10/18 10:36 10/10/18 10:36 Intake & Output 10/09/18 10/10/18 10/11/18 06:59 06:59 06:59 Intake Total 2928 600 Output Total 300 Balance 2628 600 Weight 115 kg 117 kg General appearance: PRESENT: no acute distress Head exam: PRESENT: atraumatic Eye exam: PRESENT: conjunctiva pink Neck exam: ABSENT: carotid bruit, JVD, lymphadenopathy, thyromegaly Respiratory exam: PRESENT: clear to auscultation renu. ABSENT: rales, rhonchi, wheezes Cardiovascular exam: PRESENT: RRR. ABSENT: diastolic murmur, rubs, systolic murmur GI/Abdominal exam: PRESENT: normal bowel sounds, soft. ABSENT: distended, guarding, mass, organolmegaly, rebound, tenderness Neurological exam: PRESENT: alert, awake, oriented to person, oriented to place, oriented to time, oriented to situation Results Laboratory Results: 10/09/18 05:35 10/10/18 05:22 10/10/18 05:22 Sodium 142.5 Potassium 4.2 Chloride 102 Carbon Dioxide 35 H Anion Gap 6 BUN 11 Creatinine 1.21 Est GFR ( Amer) 58 L Est GFR (Non-Af Amer) 48 L Glucose 97 Calcium 9.2 Magnesium 2.0 10/04/18 10/04/18 10/04/18 01:05 07:30 07:30 Creatine Kinase 84 CK-MB (CK-2) 1.01 Troponin I 0.040 0.050 NT-Pro-B Natriuret Pep 51536 H 10/04/18 10/04/18 10/04/18 13:22 13:22 19:09 Creatine Kinase 76 73 CK-MB (CK-2) 1.25 Troponin I 0.040 NT-Pro-B Natriuret Pep 10/04/18 10/05/18 10/05/18 19:09 04:11 05:33 Creatine Kinase CK-MB (CK-2) 1.27 Troponin I 0.028 NT-Pro-B Natriuret Pep Cancelled 2920 H 10/06/18 03:57 Creatine Kinase CK-MB (CK-2) Troponin I NT-Pro-B Natriuret Pep 662 H Impressions: Chest X-Ray 10/07/18 06:00 IMPRESSION: Increasing airspace opacities in both lung bases. No significant pleural effusion. Chest CT 10/09/18 00:00 IMPRESSION: DIFFUSE BILATERAL GROUND-GLASS OPACITIES. SIMILAR APPEARANCE TO THE PREVIOUS CT. DIFFERENTIAL INCLUDES AMIODARONE TOXICITY, PULMONARY EDEMA, OR PNEUMONITIS. Qualifiers - * PATIENT BEING DISCHARGED WITH ANY OF THE FOLLOWING DIAGNOSIS: No Acute Heart Failure - Is this a Heart Failure Patient?: Yes Documentation of LVEF assessment?: Yes LVEF < 40%?: Yes-if yes answer questions a through e a) Discharged on ACEI?: N/A Discharged on ARNI Reason(s) not discharge on ACEI: TING b) Discharges on ARB?: Yes c) Discharged on ARNI?: Yes d) Discharged on evidence-based Beta rip(carvedilol, sustained release metoprolol succinate, or bisoprolol)?: Yes e) For LVEF <35%, discharged on Aldosterone antagonist?: Yes 3. Anticoagulant therapy for permanect/persistent/paraoxysmal Afib or Aflutter: N/A Follow-up Appointment scheduled within 7 days?: Yes
[2018-10-10 15:46] VITALS: BP 98/59
== END 2018-10-10 17:26 | disposition home or self-care (01) | DRG 291 ==
LOC: ER 00:16 → EH 02:37 → ICU 04:59 → 3N 10-05 15:45
PROVIDERS: ADMIT Emergency Medicine; ATTEND Emergency Medicine
DX: I13.0 Hypertensive heart and chronic kidney disease with heart failure and stage 1 through stage 4 chronic kidney disease, or unspecified chronic kidney disease (principal); J18.1 Lobar pneumonia, unspecified organism; I50.23 Acute on chronic systolic (congestive) heart failure; J96.21 Acute and chronic respiratory failure with hypoxia; N17.9 Acute kidney failure, unspecified; I47.2 Ventricular tachycardia; N18.9 Chronic kidney disease, unspecified; I48.91 Unspecified atrial fibrillation; I25.10 Atherosclerotic heart disease of native coronary artery without angina pectoris; J44.9 Chronic obstructive pulmonary disease, unspecified; I25.5 Ischemic cardiomyopathy; F12.90 Cannabis use, unspecified, uncomplicated; L30.8 Other specified dermatitis; E66.01 Morbid (severe) obesity due to excess calories; I25.2 Old myocardial infarction; Z99.81 Dependence on supplemental oxygen; Z95.5 Presence of coronary angioplasty implant and graft; Z95.1 Presence of aortocoronary bypass graft; Z95.0 Presence of cardiac pacemaker; Z79.01 Long term (current) use of anticoagulants; Z79.82 Long term (current) use of aspirin; Z79.899 Other long term (current) drug therapy
CPT/HCPCS: 36415; 36600; 71045; 71250; 80048; 80053; 82542; 82550; 82553; 82803; 83735; 83880; 84484; 85025; 85027; 87040; 87070; 93005; 93010; 94640; 94660; 96374; 96375; 99291; J0456; J0696; J1940; J2270; J2405; J3490; J7030; J7060; J7614; J7620

== ENCOUNTER 2019-01-19 00:32 | Inpatient (IN) | payer MEDICAID ==
[2019-01-19] MEDS ORDERED: ONDANSETRON HCL INJ/PF 4 MG/2 ML SDV ONE (00:40)
[2019-01-19] MEDS ORDERED: ALBUTEROL SULFATE 0.083% NEB 2.5 MG/3 ML AMPUL NEB ONE ×2 (00:44→04:49)
[2019-01-19] MEDS ORDERED: IPRATROPIUM BROMIDE 0.02% NEB 0.5 MG/2.5 ML AMPUL NEB ONE ×2 (00:44→04:48)
[2019-01-19] MEDS ORDERED: LORAZEPAM INJ 2 MG/1 ML VIAL ONE ×2 (00:52→01:45)
--- NOTE | 2019-01-19 01:09 | ER Document Report ---
Entered by STARLA PUGA SCRIBE 01/19/19 0039 Acting as scribe for:CHARLOTTE MUHAMMAD IV, MD ED Respiratory Problem - General Chief Complaint: Breathing Difficulty Stated Complaint: DIFFICULTY BREATHING Mode of Arrival: Ambulatory Information source: Patient Notes: 48 year old female with CHF and COPD that presents to the emergency department today in severe respiratory distress. Patient has had frequent admissions for respiratory failure. Patient states she has not missed any dosages of her lasix. History is limited secondary to the patient's medical condition. TRAVEL OUTSIDE OF THE [place] IN LAST 30 DAYS: No - Related Data Allergies/Adverse Reactions: egg [Egg] Allergy (Verified 10/04/18 00:18) hydrocodone [From Vicodin] Allergy (Verified 10/04/18 00:18) propoxyphene [From Darvocet-N] Allergy (Verified 10/04/18 00:18) amiodarone Adverse Reaction (Verified 10/04/18 00:18) Respiratory distress diphenhydramine HCl [From Benadryl] Adverse Reaction (Verified 10/04/18 00:18) chest pain, bigemeny rhythm Past Medical History - General Information source: Patient - Social History Smoking Status: Smoker,Current Status Unk Cigarette use (# per day): Yes Family History: CAD, CVA, DM, Hypertension, Malignancy, Other - Kidney disease - Past Medical History Cardiac Medical History: Reports: Hx Atrial Fibrillation, Hx Congestive Heart Failure, Hx Coronary Artery Disease, Hx Heart Attack, Hx Hypercholesterolemia, H x Hypertension Pulmonary Medical History: Reports: Hx Bronchitis, Hx COPD, Hx Pneumonia, Hx Intubation, Hx Respiratory Failure, Hx Sleep Apnea Renal/ Medical History: Reports: Hx Kidney Stones, Hx Renal Insufficiency GI Medical History: Reports: Hx Gastroesophageal Reflux Disease Psychiatric Medical History: Reports: Hx Anxiety, Hx Depression, Hx Schizophrenia Past Surgical History: Reports: Hx Cardiac Catheterization - multiple, Hx Cardiac Surgery - pacemaker/icd, Hx Section, Hx Coronary Artery Bypass Graft - 2006, Hx Coronary Stent - Multiple, Hx Hysterectomy, Hx Open Heart Surgery - BYPASS 2006, Hx Pacemaker - AICD, Hx Tubal Ligation - Immunizations Hx Diphtheria, Pertussis, Tetanus Vaccination: Yes Hx Pneumococcal Vaccination: 04/04/12 Review of Systems - Review of Systems -: Yes ROS unobtainable due to patient's medical condition Physical Exam - Vital signs Vitals: Resp Pulse Ox 39 H 83 L 01/19/19 00:32 01/19/19 00:32 Course - Re-evaluation Re-evalutation: 01/19/19 01:20 Patient was noted to become very somnolent and tachypneic as well as fatigued from a respiratory standpoint despite using BiPAP. Patient has a history of intubations with the same presentation of acute on chronic respiratory failure. This MD decided to intubate the patient for airway protection given her history and the 3 episodes of vomiting the patient had upon initial presentation. - Vital Signs Vital signs: Temp Pulse Resp BP Pulse Ox 16 92/58 L 95 01/19/19 02:19 01/19/19 02:19 01/19/19 03:03 Vital signs reviewed by this MD - Laboratory Result Diagrams: 01/19/19 01:05 01/19/19 01:05 Laboratory results interpreted by me: 01/19/19 01/19/19 01/19/19 01:05 01:05 01:05 MCHC 31.0 L RDW 20.5 H Creatinine 1.40 H Est GFR ( Amer) 49 L Est GFR (MDRD) Non-Af 40 L Glucose 257 H Total Bilirubin 1.5 H Direct Bilirubin 0.5 H AST 46 H NT-Pro-B Natriuret Pep 5340 H Total Protein 8.8 H All laboratory results reviewed by this MD. - Diagnostic Test Radiology reviewed: Image reviewed, Reports reviewed Radiology results interpreted by me: 01/19/19 03:13 Post intubation chest x-ray was reviewed by this MD. ET tube placement appears adequate per this MDs interpretation. - EKG Interpretation by Me Additional EKG results interpreted by me: 01/19/19 03:32 EKG performed at 00 37 hours on 01/19/2019 was interpreted by this MD. Findings: Ventricular paced rhythm, heart rate 112, pacer spikes are present, there are nonspecific QRS and ST segments present throughout the patient's EKG. Impression abnormal EKG. No prior EKG was immediately available for comparison. - Consults padmini elmore Time consulted: 01:20 Reason for consultation: 01/19/19 03:34 Acute on chronic respiratory failure Consulted provider: will come to ER Procedures - Intubation Orotracheal Time of Intubation: 01:33 Airway evaluation: Large tongue, Obese Mallampati Diagram: 1 - class 4 Mallampati Classification: Class 4 Medications: Etomidate, Succinylcholine Intubation method: Orotracheal Blade type: Lilian Blade size: 4 Equipment used: Glidescope ETT size: 7.5 ETT secured at: Lips ETT secured at (cm): 23 Breath Sounds after Intubation: Equal End tidal CO2 confirmed: Yes Ventilator settings: SIMV Tidal volume: 500 FiO2: 50 Respirations: 16 PEEP: 5 Post Intubation Xray: Yes Intubation Complications: Oral-unsuccessful attempt - 1st attempt performed by ICU DOUG Elmore without glidoscope unsuccessful Notes: 01/19/19 03:08 Second attempt with 4 MAC and glidoscope performed by this md was successful. Critical Care Note - Critical Care Note Total time excluding time spent on procedures (mins): 60 Discharge - Discharge Clinical Impression: Acute on chronic respiratory failure Qualifiers: Respiratory failure complication: unspecified whether with hypoxia or hypercapnia Qualified Code(s): J96.20 - Acute and chronic respiratory failure, unspecified whether with hypoxia or hypercapnia CHF exacerbation Qualifiers: Heart failure type: unspecified Qualified Code(s): I50.9 - Heart failure, unspecified Clinical Impression: (Ruled Out): Acute on chronic respiratory failure after trauma Condition: Critical Disposition: ADMITTED INPATIENT Admitting Provider: padmini Barron, medical field representative Unit Admitted: ICU I personally performed the services described in the documentation, reviewed and edited the documentation which was dictated to the scribe in my presence, and it accurately records my words and actions.
[2019-01-19] MEDS ORDERED: MIDAZOLAM HCL 50 MG/100 ML RTUINJ ONE (01:21)
[2019-01-19 01:23] LABS: ABSOLUTE BASOPHILS # (AUTO) 0.1 10^3/uL (0.0-0.2); ABSOLUTE LYMPHOCYTES (AUTO) 3.1 10^3/uL (0.5-4.7); ABSOLUTE MONOCYTES (AUTO) 0.5 10^3/uL (0.1-1.4); ABSOLUTE NEUT (AUTO) 4.9 10^3/uL (1.7-8.2); EOSINOPHILS % (AUTO) 0.2 % (0-6); HEMATOCRIT 41.2 % (36.0-47.0); HEMOGLOBIN 12.8 g/dL (12.0-15.5); LYMPHOCYTES % (AUTO) 36.4 % (13-45); MEAN CORPUSCULAR HEMOGLOBIN 29.7 pg (27.0-33.4); MEAN CORPUSCULAR VOLUME 96 fl (80-97); MONOCYTES % (AUTO) 5.7 % (3-13); PLATELET COUNT 300 10^3/uL (150-450); RED CELL DISTRIBUTION WIDTH 20.5 % (11.5-14.0); SEGMENTED NEUTROPHILS % (AUTO) 56.7 % (42-78); TOTAL CELLS COUNTED % (AUTO) 100 %; WHITE BLOOD COUNT 8.6 10^3/uL (4.0-10.5)
--- NOTE | 2019-01-19 01:26 | RADIOLOGY REPORT (SQ) ---
EXAM DESCRIPTION: [facility]: XR CHEST 1 VIEW CLINICAL HISTORY: 48 years Female, DIFF BREATHING COMPARISON: 10/07/2018 FINDINGS: There is interstitial edema bilaterally. No focal consolidation. No pneumothorax or pleural effusion. Heart is enlarged as on prior exam. Sternal wires are again noted. AICD is in place with intact leads, unchanged. Bony structures are unremarkable. IMPRESSION: 1. Mild pulmonary edema. No pleural effusions. 2. Previous sternotomy. Cardiomegaly. 3. AICD
[2019-01-19 01:35] LABS: ALBUMIN 4.8 g/dL (3.5-5.0); ALKALINE PHOSPHATASE 117 U/L (38-126); ANION GAP 17 (5-19); ASPARTATE AMINO TRANSFERASE 46 U/L (14-36); BILIRUBIN,DIRECT 0.5 mg/dL (0.0-0.4); BILIRUBIN,TOTAL 1.5 mg/dL (0.2-1.3); BLOOD UREA NITROGEN 10 mg/dL (7-20); CARBON DIOXIDE 26 mmol/L (22-30); CHLORIDE 99 mmol/L (98-107); GLUCOSE 257 mg/dL (75-110); POTASSIUM 4.3 mmol/L (3.6-5.0); TOTAL PROTEIN 8.8 g/dL (6.3-8.2)
[2019-01-19] MEDS ORDERED: MIDAZOLAM 2 MG/2 ML INJ ONE (01:41)
[2019-01-19] MEDS: MIDAZOLAM 2 MG/2 ML INJ IV ONE ×2 (01:44→04:23)
[2019-01-19] MEDS ORDERED: PROPOFOL 1,000 MG/100 ML INFUS..BTL IV ONE (01:45)
[2019-01-19] MEDS ORDERED: VECURONIUM BROMIDE INJ 10 MG VIAL IV ONE ×2 (01:45→10:29)
[2019-01-19] MEDS: VECURONIUM BROMIDE INJ 10 MG VIAL IV ONE ×2 (01:46→04:23)
[2019-01-19] MEDS: LORAZEPAM INJ 2 MG/1 ML VIAL IV ONE ×2 (01:47→04:23)
[2019-01-19 01:52] LABS: TROPONIN I 0.036 ng/mL
[2019-01-19] MEDS ORDERED: MIDAZOLAM HCL 50 MG/100 ML RTUINJ IV PRN (01:58)
[2019-01-19] MEDS ORDERED: PROPOFOL 1,000 MG/100 ML INFUS..BTL IV PRN (01:58)
[2019-01-19] MEDS ORDERED: RINGERS SOLUTION,LACTATED 1,000 ML IV PRN ×2 (02:57→06:10)
[2019-01-19] MEDS ORDERED: IPRATROPIUM/ALBUTEROL 0.5-2.5 MG/3 ML AMPUL NEB SCH (03:00)
[2019-01-19] MEDS ORDERED: ACETAMINOPHEN 650 MG SUPP.RECT PR ONE (03:01)
--- NOTE | 2019-01-19 03:18 | RADIOLOGY REPORT (SQ) ---
Chest single view on 01/19/2019 at 2:20 AM CLINICAL INDICATION: Central line placement, ET tube placement COMPARISON: 01/19/2019 at 1:01 AM FINDINGS: The patient is status post median sternotomy and CABG. Multilead left subclavian AICD device is noted in place. New right IJ central venous catheter tip is in the SVC. There is no pneumothorax. New NG tube extends below the level of this film and likely below the diaphragm. New ET tube tip is in the midthoracic trachea approximately 7 cm above the level of the bruna. Cardiomegaly is noted. There has been some worsening of right greater than left opacities suggesting mild worsening edema and/or pneumonia. IMPRESSION: Tubes and lines appear in good position. There has been mild worsening of bilateral edema and/or pneumonia.
[2019-01-19] MEDS: METHYLPREDNISOLONE INJ 125 MG/2 ML SDV IV ONE ×2 (04:22→04:43)
[2019-01-19] MEDS ORDERED: ONDANSETRON HCL INJ/PF 4 MG/2 ML SDV IV ONE (04:49)
[2019-01-19] MEDS ORDERED: LORAZEPAM INJ 2 MG/1 ML VIAL IV ONE (04:50)
[2019-01-19] MEDS ORDERED: ETOMIDATE INJ/PF 20 MG/10 ML SDV IV ONE ×2 (04:50→10:29)
[2019-01-19] MEDS ORDERED: SUCCINYLCHOLINE CHLORIDE INJ 200 MG/10 ML VIAL IV ONE (04:51)
[2019-01-19 05:26] LABS: ABSOLUTE LYMPHOCYTES (AUTO) 0.5 10^3/uL (0.5-4.7); ABSOLUTE MONOCYTES (AUTO) 0.6 10^3/uL (0.1-1.4); ABSOLUTE NEUT (AUTO) 5.5 10^3/uL (1.7-8.2); BASOPHILS % (AUTO) 0.4 % (0-2); HEMATOCRIT 34.6 % (36.0-47.0); LYMPHOCYTES % (AUTO) 8.2 % (13-45); MEAN CORPUSCULAR HEMOGLOBIN 29.5 pg (27.0-33.4); MEAN CORPUSCULAR HGB CONC 31.8 g/dL (32.0-36.0); MEAN CORPUSCULAR VOLUME 93 fl (80-97); MONOCYTES % (AUTO) 8.6 % (3-13); PLATELET COUNT 261 10^3/uL (150-450); RED BLOOD COUNT 3.73 10^6/uL (3.72-5.28); SEGMENTED NEUTROPHILS % (AUTO) 82.8 % (42-78); TOTAL CELLS COUNTED % (AUTO) 100 %; WHITE BLOOD COUNT 6.7 10^3/uL (4.0-10.5)
[2019-01-19 05:33] LABS: ARTERIAL BLOOD BASE EXCESS 1.9 mmol/L; ARTERIAL BLOOD H2CO3 1.61 mmol/L (1.05-1.35); ARTERIAL BLOOD HCO3 28.5 mmol/L (20-24); ARTERIAL BLOOD O2 SATURATION 93.1 % (94-98); ARTERIAL BLOOD PCO2 53.6 mmHg (35-45); ARTERIAL BLOOD PH 7.34 (7.35-7.45); ARTERIAL BLOOD PO2 70.7 mmHg (80-100); ARTERIAL BLOOD TOTAL CO2 30.2 mmol/L (21-25)
[2019-01-19 05:34] LABS: ARTERIAL BLOOD FIO2 50%
[2019-01-19 05:37] LABS: ALBUMIN 3.8 g/dL (3.5-5.0); ALKALINE PHOSPHATASE 97 U/L (38-126); ANION GAP 11 (5-19); ASPARTATE AMINO TRANSFERASE 189 U/L (14-36); BILIRUBIN,DIRECT 1.1 mg/dL (0.0-0.4); BILIRUBIN,TOTAL 2.3 mg/dL (0.2-1.3); BLOOD UREA NITROGEN 13 mg/dL (7-20); CALCIUM 8.3 mg/dL (8.4-10.2); CARBON DIOXIDE 30 mmol/L (22-30); CHLORIDE 104 mmol/L (98-107); POTASSIUM 3.6 mmol/L (3.6-5.0); TOTAL PROTEIN 7.2 g/dL (6.3-8.2)
--- NOTE | 2019-01-19 05:44 | CRITICAL CARE ADMISSION REPORT ---
<LUKAS ELMORE - Last Filed: 01/19/19 05:11> HPI Date:: 01/19/19 Time:: 04:50 Reason for ICU Reason:: Acute respiratory failure HPI: 48-year-old female with multiple admissions over the past year due to a complex medical history. History is significant to this admission includes CHF, status post CABG in 2006, AICD (echocardiogram in April of this year shows EF of 20- 25), possible COPD, CKD 3 (baseline creatinine 1.3), RUBIN not on CPAP with RVSP of 35 consistent with mild to moderate pulmonary hypertension. Patient presented to the emergency room via EMS with acute shortness of breath similar to that of past admissions. She was initially placed on BiPAP but was unable to maintain adequate SPO2 and had emesis x3. She was emergently intubated in the ED and transferred to the intensive care unit for further management. History obtained from:: Chart review, patient's sister. - Diagnosis/Plan (1) Acute on chronic respiratory failure Qualifiers: Respiratory failure complication: hypoxia and hypercapnia Qualified Code(s): J96.21 - Acute and chronic respiratory failure with hypoxia; J96.22 - Acute and chronic respiratory failure with hypercapnia Is this a current diagnosis for this admission?: Yes Plan: Patient intubated. Vent settings: PRVC, VT 500, RR 16, PEEP 8, FiO2 60%. CXR shows bilateral pleural effusions worse on the right. Possible underlying pneumonia. ET tube approximately 3 cm above the bruna. Plan: Obtain ABG and adjust respiratory rate accordingly. Titrate FiO2 to maintain an SPO2 of 90 to 95%. Advanced ET tube 3 cm. Obtain sputum cultures. Start dose of vancomycin and Zosyn. Patient was last discharged on 80 mg of p.o. Lasix. Will resume IV Lasix if blood pressure able to tolerate. (2) Acute pulmonary edema with congestive heart failure Is this a current diagnosis for this admission?: Yes Plan: Significantly elevated proBNP. Will start Lasix 40 IV twice daily as tolerated by blood pressure. Repeat echocardiogram in a.m. History of mild to moderate pulmonary hypertension: Follow results of echocardiogram with possible addition of sildenafil if indicated. (3) CKD (chronic kidney disease) Qualifiers: Chronic kidney disease stage: stage 3 (moderate) Qualified Code(s): N18.3 - Chronic kidney disease, stage 3 (moderate) Is this a current diagnosis for this admission?: Yes Plan: Baseline creatinine 1.3. Patient now with mildly elevated creatinine. Follow renal panel daily with Lasix administration. - . Plan Summary: Ms. Sow has multiple comorbidities including significant CHF and chronic respiratory failure as well as stage III CKD. CHF and pulmonary edema most likely complicated by pneumonia given her acute fever. We will follow blood and sputum cultures and begin empiric vancomycin and Zosyn. She would also benefit from diuresis if her pressure is able to tolerate it. Patient also has severe morbid obesity as well as RUBIN (Mallampati 4). She may benefit from ec hocardiogram evaluation of her right heart and should be discharged with chronic CPAP. 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 Neurological Medical History: Denies: Seizures Endocrine Medical History: Denies: Diabetes Mellitus Type 1, Diabetes Mellitus Type 2, Hyperthyroidism, Hypothyroidism Renal/ Medical History: Reports: Chronic Kidney Disease Renal/ History Note: Creatinine 1.3 as of last admission in September of this year. GI Medical History: Reports: Gastroesophageal Reflux Disease Denies: Cirrhosis, Crohn's Disease, Hepatitis, Hiatal Hernia, Ulcerative Colitis Musculoskeltal Medical History: Denies: Arthritis, Gout Skin Medical History: Denies: Eczema, Psoriasis Psychiatric Medical History: Reports: Depression Psychiatric History Note: Patient has a history of crack cocaine use but states that she has not used in " a long time". Tobacco use history unclear. Unable to interview patient appropriately prior to intubation. Hematology: Reports: Anemia - Chronic, Bleeding Tendencies - "On blood thinners" Past Surgical History Past Surgical History: Reports: Cardiac Catheterization - multiple, Section, Coronary Artery Bypass Graft - 2007, Coronary Stent - Multiple, Hysterectomy, Pacemaker - AICD, Tubal Ligation Denies: Mastectomy Social/Family History - Social History Smoking Status: Smoker,Current Status Unk - Unable to interview patient prior to intubation Frequency of Alcohol Use: Occasional Hx Recreational Drug Use: Yes Drugs: Cocaine, Marijuana Hx Prescription Drug Abuse: No - Medication/Allergies Home Medications: Alprazolam [Xanax 0.5 mg Tablet] 0.5 mg PO Q6HP PRN 10/04/18 Amiodarone HCl [Cordarone 200 mg Tablet] 400 mg PO DAILY 10/04/18 Apixaban [Eliquis 5 mg Tablet] 5 mg PO BID 10/04/18 Aspirin [Adult Low Dose Aspirin EC] 81 mg PO DAILY 10/04/18 Atorvastatin Calcium [Lipitor 80 mg Tablet] 80 mg PO DAILY 10/04/18 Buspirone HCl [Buspar 10 mg Tablet] 10 mg PO Q12 10/04/18 Famotidine [Pepcid 40 mg Tablet] 40 mg PO BID 10/04/18 Furosemide [Lasix 80 mg Tablet] 80 mg PO BID 10/04/18 Isosorbide Mononitrate [Imdur 60 mg Tablet.er] 60 mg PO DAILY 10/04/18 Melatonin 1 mg PO QHS 10/04/18 Metoprolol Succinate [Toprol Xl 50 mg Tab.sr] 50 mg PO DAILY 10/04/18 Nitroglycerin 0.4 mg SL Q5MP PRN 10/04/18 Paroxetine HCl [Paxil 20 mg Tablet] 20 mg PO DAILY 10/04/18 Sacubitril/Valsartan [Entresto 49 mg/51 mg Tablet] 1 tab PO Q12 10/04/18 Allergies/Adverse Reactions: egg [Egg] Allergy (Verified 10/04/18 00:18) hydrocodone [From Vicodin] Allergy (Verified 10/04/18 00:18) propoxyphene [From Darvocet-N] Allergy (Verified 10/04/18 00:18) amiodarone Adverse Reaction (Verified 10/04/18 00:18) Respiratory distress diphenhydramine HCl [From Benadryl] Adverse Reaction (Verified 10/04/18 00:18) chest pain, bigemeny rhythm Review of Systems ROS unobtainable: Due to endotracheal tube Physical Exam Vital Signs: Temp Pulse Resp BP Pulse Ox 16 92/58 L 96 01/19/19 02:19 01/19/19 02:19 01/19/19 04:40 Intake & Output 01/17/19 01/18/19 01/19/19 06:59 06:59 06:59 Intake Total 18 Balance 18 Weight 109.4 kg Weight/Height Weight 109.4 kg General appearance: PRESENT: morbidly obese, severe distress Head exam: PRESENT: atraumatic, normocephalic Eye exam: PRESENT: PERRLA. ABSENT: conjunctival injection Ear exam: PRESENT: normal external ear exam. ABSENT: bleeding, drainage Mouth exam: PRESENT: moist, neck supple, other - Estefanía Berta class IV Neck exam: ABSENT: carotid bruit, tenderness, tracheal deviation Respiratory exam: PRESENT: rales, rhonchi, symmetrical. ABSENT: wheezes Cardiovascular exam: PRESENT: RRR Pulses: PRESENT: normal carotid pulses. ABSENT: normal radial pulses - Bilateral radial pulses were both weak. Vascular exam: PRESENT: normal capillary refill GI/Abdominal exam: PRESENT: other - Difficult to assess given body habitus. Rectal exam: PRESENT: deferred Gentrourinary exam: PRESENT: other - Catheter in place Musculoskeletal exam: PRESENT: full ROM, normal inspection Neurological exam: PRESENT: CN II-XII grossly intact, other - Currently sedated. No gross deficits Skin exam: PRESENT: dry, intact, warm. ABSENT: abrasion Tubes/Lines: PRESENT: Endotracheal Tube, Central Line, Arterial Catheter Laboratory/Radiographs Laboratory Results: 01/19/19 01:05 01/19/19 01:05 01/19/19 01/19/19 01:05 01:05 WBC 8.6 RBC 4.30 Hgb 12.8 Hct 41.2 MCV 96 MCH 29.7 MCHC 31.0 L RDW 20.5 H Plt Count 300 Seg Neutrophils % 56.7 Sodium 141.7 Potassium 4.3 Chloride 99 Carbon Dioxide 26 Anion Gap 17 BUN 10 Creatinine 1.40 H Est GFR ( Amer) 49 L Glucose 257 H Calcium 9.0 Total Bilirubin 1.5 H AST 46 H Alkaline Phosphatase 117 Total Protein 8.8 H Albumin 4.8 01/19/19 01:05 Troponin I 0.036 NT-Pro-B Natriuret Pep 5340 H Impressions: Chest X-Ray 01/19/19 00:00 IMPRESSION: Tubes and lines appear in good position. There has been mild worsening of bilateral edema and/or pneumonia. All labs, radiographs, diagnostic studies and EKGs were personally reviewed: Yes In addition, reports of radiographic and diagnostic studies were read: Yes Critical Time Critical Time (minutes): 90 -: The care of a critically ill patient is dynamic. This note represents a static moment in the admission process. orders and treatments may be given simulataneously and urgentl, and time is not consumer sales representative of the treatment process. This patient requires Critical Care secondary to life threating organ or limb dysfunction. Without the need for Critical Care services, the patient is at risk for increasid mortality and morbidity. <AISHAPHANI Frederick - Last Filed: 01/20/19 07:41> Physical Exam Vital Signs: Temp Pulse Resp BP Pulse Ox 100.0 F 60 18 100/60 97 01/20/19 04:00 01/20/19 04:00 01/20/19 06:00 01/20/19 04:00 01/20/19 06:00 Intake & Output 01/19/19 01/20/19 01/21/19 06:59 06:59 06:59 Intake Total 67 1766 Output Total 200 2325 Balance -133 -559 Weight 109.4 kg 110.6 kg Weight/Height Weight 110.6 kg Height 5 ft 4 in Laboratory/Radiographs Laboratory Results: 01/20/19 03:20 01/20/19 03:20 01/19/19 01/19/19 01/19/19 08:00 17:55 17:55 WBC RBC Hgb Hct MCV MCH MCHC RDW Plt Count Seg Neutrophils % Carbonic Acid 1.91 H HCO3/H2CO3 Ratio 16:1 ABG pH 7.31 L ABG pCO2 63.4 H ABG pO2 74.2 L ABG HCO3 31.4 H ABG O2 Saturation 93.3 L ABG Base Excess 3.6 FiO2 50% Sodium 142.0 Potassium 3.2 L Chloride 102 Carbon Dioxide 31 H Anion Gap 9 BUN 15 Creatinine 1.90 H Est GFR ( Amer) 34 L Glucose 104 Lactic Acid Calcium 8.2 L Phosphorus Magnesium 1.9 Ammonia Urine Color YELLOW Urine Appearance SLIGHTLY-CLOUDY Urine pH 7.0 Ur Specific [place] 1.008 Urine Protein 30 H Urine Glucose (UA) 50 H Urine Ketones NEGATIVE Urine Blood NEGATIVE Urine Nitrite NEGATIVE Ur Leukocyte Esterase NEGATIVE Urine WBC (Auto) 5 Urine RBC (Auto) 3 01/19/19 01/20/19 01/20/19 17:55 03:20 03:20 WBC RBC Hgb Hct MCV MCH MCHC RDW Plt Count Seg Neutrophils % Carbonic Acid 1.04 L HCO3/H2CO3 Ratio 25:1 ABG pH 7.50 H ABG pCO2 34.5 L ABG pO2 179.8 H ABG HCO3 26.5 H ABG O2 Saturation 99.4 H ABG Base Excess 3.5 FiO2 30% Sodium Potassium Chloride Carbon Dioxide Anion Gap BUN Creatinine Est GFR ( Amer) Glucose Lactic Acid 1.0 Calcium Phosphorus Magnesium Ammonia < 8.7 L Urine Color Urine Appearance Urine pH Ur Specific [place] Urine Protein Urine Glucose (UA) Urine Ketones Urine Blood Urine Nitrite Ur Leukocyte Esterase Urine WBC (Auto) Urine RBC (Auto) 01/20/19 01/20/19 03:20 03:20 WBC 6.7 RBC 3.54 L Hgb 10.4 L Hct 32.2 L MCV 91 MCH 29.4 MCHC 32.3 RDW 19.8 H Plt Count 210 Seg Neutrophils % 85.0 H Carbonic Acid HCO3/H2CO3 Ratio ABG pH ABG pCO2 ABG pO2 ABG HCO3 ABG O2 Saturation ABG Base Excess FiO2 Sodium 141.0 Potassium 3.4 L Chloride 105 Carbon Dioxide 30 Anion Gap 6 BUN 16 Creatinine 2.01 H Est GFR ( Amer) 32 L Glucose 103 Lactic Acid Calcium 8.2 L Phosphorus 3.2 Magnesium 2.0 Ammonia Urine Color Urine Appearance Urine pH Ur Specific [place] Urine Protein Urine Glucose (UA) Urine Ketones Urine Blood Urine Nitrite Ur Leukocyte Esterase Urine WBC (Auto) Urine RBC (Auto) 01/19/19 01/19/19 01:05 04:54 Troponin I 0.036 NT-Pro-B Natriuret Pep 5340 H 7390 H Critical Time -: The care of a critically ill patient is dynamic. This note represents a static moment in the admission process. orders and treatments may be given simultaneously and urgently, and time is not consumer sales representative of the treatment process. This patient requires Critical Care secondary to life threatening organ or limb dysfunction. Without the need for Critical Care services, the patient is at risk for increased mortality and morbidity. I personally examined the patient and discussed case and care with DENYS Elmore. Agree with findings, plan and care
[2019-01-19 05:45] LABS: GLUCOSE 56 mg/dL (75-110)
[2019-01-19] MEDS ORDERED: VANCOMYCIN HCL INJ 1000 MG VIAL IV ONE (05:50)
[2019-01-19] MEDS ORDERED: DEXTROSE 50%-WATER 25 GM/50 ML DISP.SYRIN IV ONE ×2 (05:50→06:07)
[2019-01-19] MEDS ORDERED: FUROSEMIDE INJ/PF 40 MG/4 ML SDV IV SCH (06:00)
[2019-01-19] MEDS ORDERED: PIPERACILLIN SODIUM/TAZOBACTAM 3.375 GM in NORMAL SALINE 100 ML IV SCH (06:00)
[2019-01-19] MEDS ORDERED: PIPERACILLIN/TAZOBACTAM 3.375 GM VIAL IV SCH ×2 (06:00→06:15)
[2019-01-19] MEDS ORDERED: 1/2 NORMAL SALINE 1,000 ML IV PRN (06:03)
[2019-01-19] MEDS: FENTANYL CITRATE/PF 600 MCG/60 ML BAG IV PRN ×2 (06:09→16:09)
[2019-01-19] MEDS ORDERED: PIPERACILLIN/TAZOBACTAM 3.375 GM VIAL IV PRN (06:17)
[2019-01-19] MEDS ORDERED: DEXTROSE 5%-1/2 NORMAL SALINE 1,000 ML IV PRN (06:28)
--- NOTE | 2019-01-19 06:50 | EKG REPORT ---
SEVERITY:- ABNORMAL ECG - VENTRICULAR-PACED RHYTHM : Confirmed by: Kirk Weeks MD 19-Jan-2019 06:50:18
--- NOTE | 2019-01-19 06:50 | EKG REPORT ---
SEVERITY:- ABNORMAL ECG - ATRIAL-VENTRICULAR DUAL-PACED RHYTHM : Confirmed by: Kirk Weeks MD 19-Jan-2019 06:50:06
[2019-01-19 08:26] LABS: APPEARANCE,URINE SLIGHTLY-CLOUDY; BILIRUBIN,URINE NEGATIVE (NEGATIVE); COLOR,URINE YELLOW; GLUCOSE, URINE 50 mg/dL (NEGATIVE); KETONES,URINE NEGATIVE (NEGATIVE); LEUKOCYTE ESTERASE,URINE NEGATIVE (NEGATIVE); NITRITE,URINE NEGATIVE (NEGATIVE); PROTEIN,URINE 30 mg/dL (NEGATIVE); URINE SPECIFIC GRAVITY 1.008
[2019-01-19 08:41] LABS: URINE AMPHETAMINES SCREEN NEGATIVE; URINE BARBITURATES SCREEN NEGATIVE; URINE COCAINE SCREEN NEGATIVE; URINE METHADONE SCREEN NEGATIVE; URINE PHENCYCLIDINE SCREEN NEGATIVE
[2019-01-19 08:46] LABS: URINE BENZODIAZEPINES SCREEN UNCONFIRMED POSITIVE; URINE MARIJUANA (THC) SCREEN UNCONFIRMED POSITIVE
[2019-01-19] MEDS ORDERED: VANCOMYCIN HCL 1,000 MG in DEXTROSE 5%-WATER 250 ML IV SCH (09:00)
[2019-01-19] MEDS: PIPERACILLIN SODIUM/TAZOBACTAM 3.375 GM in NORMAL SALINE 100 ML IV SCH ×2 (09:08→15:25)
[2019-01-19] MEDS ORDERED: FAMOTIDINE INJ/PF 20 MG/2 ML SDV IV SCH (10:00)
[2019-01-19] MEDS ORDERED: ENOXAPARIN SODIUM INJ 40 MG/0.4 ML DISP.SYRIN SUBCUT SCH (10:00)
[2019-01-19] MEDS: MINERAL OIL/PETROLATUM,WHITE OPH OINT 3.5 GM OU SCH ×4 (11:42→22:46)
[2019-01-19] MEDS: ACETAMINOPHEN 325 MG TABLET PO PRN (15:32)
--- NOTE | 2019-01-19 17:43 | Progress Note ---
Provider Note Provider Note: Patient seen and evaluated after being admitted by DENYS Elmore I reviewed the case and care as well as evaluated and examined the patient personally. I agree with plans, findings, care, and procedures. This note is a follow-up addendum regarding the patient's last few hours. She did have a temperature elevation of 103 and was placed on antibiotics. I have scaled back on the vancomycin and continue the Zosyn for now. We are awaiting respiratory Gram stain and cultures as well as blood cultures. Her skin is cool there is no mottling or discoloration. Did receive cold packs and Tylenol for her fever. Bedside critical care ultrasound and echo shows an ejection fraction that is approximately 30 to 35%. IVC appears to be filled and hepatic vein pressure appears to be high. I discontinued IV fluids at this point. We will continue supportive care. She is been placed on pressure support and will recheck ABG. He does have bilateral pleural effusions and will follow her creatinine, diuresis as needed. A fine judicious balance between fluid overload and volume resuscitation because of infection will need to be a priority. I have met with the patient's family and discussed the care plans and follow-up. I reviewed labs and chest x-ray Diagnoses 1. Acute hypoxic respiratory failure 2. Sepsis presumed source lung 3. Pneumonia community-acquired 4. History of biventricular heart failure with AICD 5. Acute on chronic renal failure 6. Lactic acidosis Total critical care time excluding any procedures 60 minutes
[2019-01-19] MEDS ORDERED: ATORVASTATIN CALCIUM 80 MG TABLET PO SCH (18:00)
[2019-01-19] MEDS ORDERED: SACUBITRIL/VALSARTAN 49 MG/51 MG TABLET PO SCH (18:00)
[2019-01-19] MEDS ORDERED: METOPROLOL SUCCINATE 50 MG TAB.SR.24H PO SCH (18:00)
[2019-01-19 18:20] LABS: ARTERIAL BLOOD BASE EXCESS 3.6 mmol/L; ARTERIAL BLOOD FIO2 50%; ARTERIAL BLOOD H2CO3 1.91 mmol/L (1.05-1.35); ARTERIAL BLOOD HCO3 31.4 mmol/L (20-24); ARTERIAL BLOOD O2 SATURATION 93.3 % (94-98); ARTERIAL BLOOD PCO2 63.4 mmHg (35-45); ARTERIAL BLOOD PH 7.31 (7.35-7.45); ARTERIAL BLOOD PO2 74.2 mmHg (80-100); ARTERIAL BLOOD TOTAL CO2 33.4 mmol/L (21-25)
[2019-01-19 18:38] LABS: ANION GAP 9 (5-19); BLOOD UREA NITROGEN 15 mg/dL (7-20); CALCIUM 8.2 mg/dL (8.4-10.2); CARBON DIOXIDE 31 mmol/L (22-30); CHLORIDE 102 mmol/L (98-107); GLUCOSE 104 mg/dL (75-110); POTASSIUM 3.2 mmol/L (3.6-5.0)
[2019-01-19] MEDS: APIXABAN 5 MG TABLET PO SCH (20:33)
[2019-01-19] MEDS: CEFTRIAXONE 2 GM/D5W RTU 2 GM/50 ML RTUPB IV SCH (20:34)
[2019-01-19] MEDS: FUROSEMIDE 80 MG TABLET PO SCH (20:34)
[2019-01-19] MEDS: AMIODARONE HCL 200 MG TABLET PO SCH (20:35)
[2019-01-19] MEDS: ISOSORBIDE MONONITRATE 60 MG TAB.ER.24H PO SCH (20:35)
[2019-01-19] MEDS: ASPIRIN 81 MG TABLET, ENT COATED PO SCH (20:42)
[2019-01-19] MEDS ORDERED: CEFTRIAXONE SODIUM 2,000 MG in DEXTROSE 5%-WATER 100 ML IV SCH (21:00)
[2019-01-19] MEDS ORDERED: POTASSIUM CHLORIDE 20 MEQ PACKET GT ONE (21:45)
[2019-01-19] MEDS: ATORVASTATIN CALCIUM 40 MG TABLET PO SCH (21:49)
[2019-01-19] MEDS: MELATONIN 5 MG TABLET PO SCH (21:49)
[2019-01-19] MEDS: METOPROLOL TARTRATE 25 MG TABLET PO SCH (21:50)
[2019-01-19] MEDS: AZITHROMYCIN 500 MG in DEXTROSE 5%-WATER 250 ML IV SCH (21:53)
[2019-01-19] MEDS: NORMAL SALINE INJ/PF 0.9% 10 ML SDV IV PRN ×2 (21:55→22:10)
[2019-01-19] MEDS ORDERED: MELATONIN 1 MG TABLET PO SCH (22:00)
[2019-01-19] MEDS: BUSPIRONE HCL 10 MG TABLET PO SCH (22:10)
[2019-01-20] MEDS: FENTANYL CITRATE/PF 600 MCG/60 ML BAG IV PRN ×2 (01:56→08:56)
[2019-01-20 03:37] LABS: ARTERIAL BLOOD BASE EXCESS 3.5 mmol/L; ARTERIAL BLOOD H2CO3 1.04 mmol/L (1.05-1.35); ARTERIAL BLOOD HCO3 26.5 mmol/L (20-24); ARTERIAL BLOOD O2 SATURATION 99.4 % (94-98); ARTERIAL BLOOD PCO2 34.5 mmHg (35-45); ARTERIAL BLOOD PO2 179.8 mmHg (80-100); ARTERIAL BLOOD TOTAL CO2 27.5 mmol/L (21-25)
[2019-01-20 03:38] LABS: ABSOLUTE LYMPHOCYTES (AUTO) 0.7 10^3/uL (0.5-4.7); ABSOLUTE MONOCYTES (AUTO) 0.2 10^3/uL (0.1-1.4); ABSOLUTE NEUT (AUTO) 5.7 10^3/uL (1.7-8.2); BASOPHILS % (AUTO) 0.5 % (0-2); EOSINOPHILS % (AUTO) 0.1 % (0-6); HEMATOCRIT 32.2 % (36.0-47.0); HEMOGLOBIN 10.4 g/dL (12.0-15.5); LYMPHOCYTES % (AUTO) 11.1 % (13-45); MEAN CORPUSCULAR HEMOGLOBIN 29.4 pg (27.0-33.4); MEAN CORPUSCULAR HGB CONC 32.3 g/dL (32.0-36.0); MEAN CORPUSCULAR VOLUME 91 fl (80-97); MONOCYTES % (AUTO) 3.3 % (3-13); PLATELET COUNT 210 10^3/uL (150-450); RED BLOOD COUNT 3.54 10^6/uL (3.72-5.28); RED CELL DISTRIBUTION WIDTH 19.8 % (11.5-14.0); TOTAL CELLS COUNTED % (AUTO) 100 %; WHITE BLOOD COUNT 6.7 10^3/uL (4.0-10.5)
[2019-01-20 03:42] LABS: ARTERIAL BLOOD FIO2 30%
[2019-01-20 03:56] LABS: ANION GAP 6 (5-19); BLOOD UREA NITROGEN 16 mg/dL (7-20); CALCIUM 8.2 mg/dL (8.4-10.2); CARBON DIOXIDE 30 mmol/L (22-30); CHLORIDE 105 mmol/L (98-107); GLUCOSE 103 mg/dL (75-110); PHOSPHORUS 3.2 mg/dL (2.5-4.5); POTASSIUM 3.4 mmol/L (3.6-5.0)
[2019-01-20] MEDS: MINERAL OIL/PETROLATUM,WHITE OPH OINT 3.5 GM OU SCH ×3 (05:41→21:31)
[2019-01-20] MEDS ORDERED: FAMOTIDINE 20 MG TABLET PO SCH (06:00)
--- NOTE | 2019-01-20 09:00 | RADIOLOGY REPORT (SQ) ---
EXAM DESCRIPTION: CHEST SINGLE VIEW COMPLETED DATE/TIME: 01/20/2019 6:16 am REASON FOR STUDY: respiratory failure COMPARISON: 01/19/2019 NUMBER OF VIEWS: One view. TECHNIQUE: Single frontal radiographic image of the chest acquired. LIMITATIONS: None. FINDINGS: LUNGS AND PLEURA: Bilateral airspace disease with improved aeration in both lungs. No pne umothorax. MEDIASTINUM AND HEART: Stable heart size and mediastinal structures. SUPPORT DEVICES: Appropriate location without change. BONY STRUCTURES: No acute findings. HARDWARE: None. OTHER: No other significant finding. IMPRESSION: Improving pneumonia or edema. No pneumothorax. Reading location - IP/workstation name: [email or web address]
[2019-01-20 13:03] LABS: ARTERIAL BLOOD H2CO3 1.91 mmol/L (1.05-1.35); ARTERIAL BLOOD HCO3 30.8 mmol/L (20-24); ARTERIAL BLOOD O2 SATURATION 91.1 % (94-98); ARTERIAL BLOOD PCO2 63.4 mmHg (35-45); ARTERIAL BLOOD PH 7.31 (7.35-7.45); ARTERIAL BLOOD PO2 67.4 mmHg (80-100); ARTERIAL BLOOD TOTAL CO2 32.8 mmol/L (21-25)
[2019-01-20 13:06] LABS: ARTERIAL BLOOD FIO2 50%
[2019-01-20 14:44] LABS: ARTERIAL BLOOD BASE EXCESS 2.6 mmol/L; ARTERIAL BLOOD H2CO3 1.82 mmol/L (1.05-1.35); ARTERIAL BLOOD O2 SATURATION 91.2 % (94-98); ARTERIAL BLOOD PCO2 60.6 mmHg (35-45); ARTERIAL BLOOD PH 7.31 (7.35-7.45); ARTERIAL BLOOD TOTAL CO2 31.8 mmol/L (21-25)
[2019-01-20 14:51] LABS: ARTERIAL BLOOD FIO2 50%
--- NOTE | 2019-01-20 15:10 | PDOC CRITICAL CARE PROG REPORT ---
General Date:: 01/20/19 ICU Day:: 2 Ventilator Day:: 2 Hospital Day:: 2 Events in the past 12 to 24 Hours:: Patient has been weaning on the ventilator. She went back on assist control last evening after tiring. This morning she endorses that she feels better and attempts to speak while on the ventilator. Review of systems relevant to events:: She did have some back discomfort yesterday which she chronically has. She has had no hemodynamic instability and no further fevers Reason for ICU Addmission:: Acute respiratory failure - Medications: Medications reviewed and adjusted accordingly: Yes Vasopressors:: None Sedation:: Off all sedation. Was on Fentanyl Physical Exam Vital Signs: Temp Pulse Resp BP Pulse Ox 100.0 F 60 18 100/60 97 01/20/19 04:00 01/20/19 04:00 01/20/19 06:00 01/20/19 04:00 01/20/19 06:00 Intake & Output 01/19/19 01/20/19 01/21/19 06:59 06:59 06:59 Intake Total 67 1766 Output Total 200 2325 Balance -133 -559 Weight 109.4 kg 110.6 kg Weight/Height Weight 110.6 kg Height 5 ft 4 in General appearance: PRESENT: no acute distress, cooperative, morbidly obese Exam: Intubated, nontoxic older appearing 48-year-old black female no active distress. Responsive attempting to speak while on ventilator Head exam: PRESENT: atraumatic, normocephalic Eye exam: PRESENT: conjunctival injection, conjunctiva pink, EOMI, PERRLA. ABSENT: nystagmus, scleral icterus Mouth exam: PRESENT: dry mucosa Neck exam: ABSENT: carotid bruit, JVD, lymphadenopathy, thyromegaly Respiratory exam: PRESENT: crackles, rhonchi, unlabored. ABSENT: retraction, tachypnea, wheezes Cardiovascular exam: PRESENT: RRR, +S1, +S2. ABSENT: systolic murmur Pulses: PRESENT: +2 pedal pulses bilateral Vascular exam: PRESENT: normal capillary refill GI/Abdominal exam: PRESENT: normal bowel sounds, soft. ABSENT: ascites, distended, guarding, mass, organolmegaly, rebound, tenderness Rectal exam: PRESENT: deferred Gentrourinary exam: PRESENT: indwelling catheter Extremities exam: ABSENT: pedal edema, tenderness Musculoskeletal exam: ABSENT: deformity, dislocation Neurological exam: PRESENT: alert, awake. ABSENT: motor sensory deficit Psychiatric exam: PRESENT: appropriate affect, normal mood. ABSENT: homicidal ideation, suicidal ideation Skin exam: PRESENT: dry, intact, warm. ABSENT: cyanosis, petechiae, rash, urt icaria Tubes/Lines: PRESENT: Endotracheal Tube, Central Line, Arterial Catheter - Jones: All placed 01.19.19 Laboratory/Radiographs Laboratory Results: 01/20/19 03:20 01/20/19 03:20 01/19/19 01/19/19 01/19/19 08:00 17:55 17:55 WBC RBC Hgb Hct MCV MCH MCHC RDW Plt Count Seg Neutrophils % Carbonic Acid 1.91 H HCO3/H2CO3 Ratio 16:1 ABG pH 7.31 L ABG pCO2 63.4 H ABG pO2 74.2 L ABG HCO3 31.4 H ABG O2 Saturation 93.3 L ABG Base Excess 3.6 FiO2 50% Sodium 142.0 Potassium 3.2 L Chloride 102 Carbon Dioxide 31 H Anion Gap 9 BUN 15 Creatinine 1.90 H Est GFR ( Amer) 34 L Glucose 104 Lactic Acid Calcium 8.2 L Phosphorus Magnesium 1.9 Ammonia Urine Color YELLOW Urine Appearance SLIGHTLY-CLOUDY Urine pH 7.0 Ur Specific [place] 1.008 Urine Protein 30 H Urine Glucose (UA) 50 H Urine Ketones NEGATIVE Urine Blood NEGATIVE Urine Nitrite NEGATIVE Ur Leukocyte Esterase NEGATIVE Urine WBC (Auto) 5 Urine RBC (Auto) 3 01/19/19 01/20/19 01/20/19 17:55 03:20 03:20 WBC RBC Hgb Hct MCV MCH MCHC RDW Plt Count Seg Neutrophils % Carbonic Acid 1.04 L HCO3/H2CO3 Ratio 25:1 ABG pH 7.50 H ABG pCO2 34.5 L ABG pO2 179.8 H ABG HCO3 26.5 H ABG O2 Saturation 99.4 H ABG Base Excess 3.5 FiO2 30% Sodium Potassium Chloride Carbon Dioxide Anion Gap BUN Creatinine Est GFR ( Amer) Glucose Lactic Acid 1.0 Calcium Phosphorus Magnesium Ammonia < 8.7 L Urine Color Urine Appearance Urine pH Ur Specific [place] Urine Protein Urine Glucose (UA) Urine Ketones Urine Blood Urine Nitrite Ur Leukocyte Esterase Urine WBC (Auto) Urine RBC (Auto) 01/20/19 01/20/19 03:20 03:20 WBC 6.7 RBC 3.54 L Hgb 10.4 L Hct 32.2 L MCV 91 MCH 29.4 MCHC 32.3 RDW 19.8 H Plt Count 210 Seg Neutrophils % 85.0 H Carbonic Acid HCO3/H2CO3 Ratio ABG pH ABG pCO2 ABG pO2 ABG HCO3 ABG O2 Saturation ABG Base Excess FiO2 Sodium 141.0 Potassium 3.4 L Chloride 105 Carbon Dioxide 30 Anion Gap 6 BUN 16 Creatinine 2.01 H Est GFR ( Amer) 32 L Glucose 103 Lactic Acid Calcium 8.2 L Phosphorus 3.2 Magnesium 2.0 Ammonia Urine Color Urine Appearance Urine pH Ur Specific [place] Urine Protein Urine Glucose (UA) Urine Ketones Urine Blood Urine Nitrite Ur Leukocyte Esterase Urine WBC (Auto) Urine RBC (Auto) 01/19/19 01/19/19 01:05 04:54 Troponin I 0.036 NT-Pro-B Natriuret Pep 5340 H 7390 H All labs, radiographs, diagnostic studies and EKGs were personally reviewed: Yes In addition, reports of radiographic and diagnostic studies were read: Yes Assessment and Plan - Diagnosis (1) Sepsis Qualifiers: Sepsis type: sepsis due to unspecified organism Sepsis acute organ dysfunction status: with acute organ dysfunction Severe sepsis acute organ dysfunction type: acute renal failure Severe sepsis shock status: with septic shock Is this a current diagnosis for this admission?: Yes (2) Acute respiratory failure with hypoxia Is this a current diagnosis for this admission?: Yes (3) Lactic acidosis Is this a current diagnosis for this admission?: Yes (4) Pneumonia Qualifiers: Pneumonia type: due to unspecified organism Laterality: bilateral Lung location: unspecified part of lung Qualified Code(s): J18.9 - Pneumonia, unspecified organism Is this a current diagnosis for this admission?: Yes (5) Left ventricular systolic dysfunction Is this a current diagnosis for this admission?: Yes Plan: Has history of heart failure. Has AICD (6) AICD (automatic cardioverter/defibrillator) present Is this a current diagnosis for this admission?: Yes (7) Acute kidney failure Qualifiers: Acute renal failure type: with acute tubular necrosis Qualified Code(s): N17.0 - Acute kidney failure with tubular necrosis Is this a current diagnosis for this admission?: Yes Plan Summary: 01.20.19:We will continue the weaning process and anticipate patient liberation from ventilator today Follow respiratory cultures and continue antibiotics for at least 5 to 7 days. Patient has acute kidney injury and will need to continue to monitor. She did require diuresis secondary to a mixed pattern of pneumonia and pulmonary edema. Her metabolic alkalosis is worse today and will reduce diuresis. Start steroids as well for COPD. Creatinine is elevated as well. Will attempt to discern what her fluid needs are. Continue supportive care 01.19.19: She did have a temperature elevation of 103 and was placed on antibiotics. I have discontinued the vancomycin and piperacillin. Have changed to Rocephin and Azithromycin for now. We are awaiting respiratory Gram stain and cultures as well as blood cultures. Her skin is cool there is no mottling or discoloration. Did receive cold packs and Tylenol for her fever. Bedside critical care ultrasound and echo shows an ejection fraction that is approximately 30 to 35%. IVC appears to be filled and hepatic vein pressure appears to be high. I discontinued IV fluids at this point. We will continue supportive care. She is been placed on pressure support and will recheck ABG. He does have bilateral pleural effusions and will follow her creatinine, diuresis as needed. A fine judicious balance between fluid overload and volume resuscitation because of infection will need to be a priority. I have met with the patient's family and discussed the care plans and follow-up. I reviewed labs and chest x-ray Diagnoses 1. Acute hypoxic respiratory failure 2. Sepsis presumed source lung 3. Pneumonia community-acquired 4. History of biventricular heart failure with AICD 5. Acute on chronic renal failure 6. Lactic acidosis Total critical care time excluding any procedures 60 minutes Critical Time Critical Time (minutes): 50 Level of Care: ICU Anticipated discharge: Acute Rehab Within: within 48 hours -: 1. The care of a critical patient is a dynamic process. This note is a represe ntative synopsis but static in nature. The timeframe for treatments given in order is not necessary the actual time these treatments may have been done. 2. This patient requires critical care secondary to ongoing requirements for therapy not offered or safe outside the critical care environment. Transfer to a lower level of care with altered life or limb morbidity and mortality. 3. Multidisciplinary rounds completed. 4. ABCDE bundle addressed.
[2019-01-20] MEDS ORDERED: DEXMEDETOMIDINE IN 0.9 % NACL 400 MCG/100 ML RTUPB IV ONE (15:38)
[2019-01-20] MEDS: DEXMEDETOMIDINE IN 0.9 % NACL 400 MCG/100 ML RTUPB IV PRN ×3 (15:40→23:15)
[2019-01-20] MEDS: METHYLPREDNISOLONE INJ 40 MG/1 ML SDV IV SCH (17:24)
[2019-01-20] MEDS: BUSPIRONE HCL 10 MG TABLET PO SCH ×2 (17:26→21:31)
[2019-01-20] MEDS: APIXABAN 5 MG TABLET PO SCH ×2 (17:27→17:32)
[2019-01-20] MEDS: METOPROLOL TARTRATE 25 MG TABLET PO SCH ×2 (17:27→21:25)
[2019-01-20] MEDS: ISOSORBIDE MONONITRATE 60 MG TAB.ER.24H PO SCH (17:32)
[2019-01-20] MEDS: FAMOTIDINE 20 MG TABLET PO SCH (17:32)
[2019-01-20] MEDS: CEFTRIAXONE 2 GM/D5W RTU 2 GM/50 ML RTUPB IV SCH (17:32)
[2019-01-20] MEDS: AMIODARONE HCL 200 MG TABLET PO SCH (17:35)
[2019-01-20] MEDS: ASPIRIN 81 MG TABLET, ENT COATED PO SCH (17:35)
--- NOTE | 2019-01-20 17:52 | RADIOLOGY REPORT (SQ) ---
EXAM DESCRIPTION: KUB/ABDOMEN (SINGLE VIEW) COMPLETED DATE/TIME: 01/20/2019 5:41 pm REASON FOR STUDY: NG Tube Placement COMPARISON: None. NUMBER OF VIEWS: One view. TECHNIQUE: Supine radiographic image of the abdomen acquired. LIMITATIONS: None. FINDINGS: Esophagogastric tube is positioned with tip and side port below the diaphragm. Otherwise stable AP portable examination. IMPRESSION: Esophagogastric tube is positioned with tip and side port below the diaphragm. Otherwise stable AP portable examination. TECHNICAL DOCUMENTATION: JOB ID: [id number] [employer]- All Rights Reserved Reading location - IP/workstation name: [email or web address]
[2019-01-20] MEDS ORDERED: FUROSEMIDE 80 MG TABLET PO SCH (18:00)
[2019-01-20] MEDS: ALBUMIN HUMAN 12.5 GM/50 ML RTUINJ IV SCH ×2 (19:36→21:56)
[2019-01-20] MEDS: ATORVASTATIN CALCIUM 40 MG TABLET PO SCH (21:26)
[2019-01-20] MEDS: MELATONIN 5 MG TABLET PO SCH (21:26)
[2019-01-20] MEDS: AZITHROMYCIN 500 MG in DEXTROSE 5%-WATER 250 ML IV SCH (21:26)
[2019-01-20] MEDS: ACETAMINOPHEN 325 MG TABLET PO PRN (21:43)
[2019-01-20] MEDS: RINGERS SOLUTION,LACTATED 1,000 ML IV PRN (21:58)
[2019-01-21] MEDS: FENTANYL CITRATE/PF 600 MCG/60 ML BAG IV PRN ×3 (01:28→09:06)
[2019-01-21] MEDS: DEXMEDETOMIDINE IN 0.9 % NACL 400 MCG/100 ML RTUPB IV PRN ×2 (01:33→03:41)
[2019-01-21 03:16] LABS: ARTERIAL BLOOD BASE EXCESS 2.3 mmol/L; ARTERIAL BLOOD H2CO3 1.62 mmol/L (1.05-1.35); ARTERIAL BLOOD HCO3 28.8 mmol/L (20-24); ARTERIAL BLOOD O2 SATURATION 89.9 % (94-98); ARTERIAL BLOOD PCO2 53.8 mmHg (35-45); ARTERIAL BLOOD PH 7.35 (7.35-7.45); ARTERIAL BLOOD PO2 61.3 mmHg (80-100); ARTERIAL BLOOD TOTAL CO2 30.4 mmol/L (21-25)
[2019-01-21 03:17] LABS: ABSOLUTE LYMPHOCYTES (AUTO) 1.1 10^3/uL (0.5-4.7); ABSOLUTE MONOCYTES (AUTO) 0.3 10^3/uL (0.1-1.4); ABSOLUTE NEUT (AUTO) 3.3 10^3/uL (1.7-8.2); ARTERIAL BLOOD FIO2 40%; BASOPHILS % (AUTO) 0.5 % (0-2); EOSINOPHILS % (AUTO) 0.7 % (0-6); HEMATOCRIT 32.3 % (36.0-47.0); HEMOGLOBIN 10.3 g/dL (12.0-15.5); LYMPHOCYTES % (AUTO) 22.6 % (13-45); MEAN CORPUSCULAR HEMOGLOBIN 29.4 pg (27.0-33.4); MEAN CORPUSCULAR VOLUME 92 fl (80-97); MONOCYTES % (AUTO) 6.4 % (3-13); PLATELET COUNT 183 10^3/uL (150-450); RED BLOOD COUNT 3.52 10^6/uL (3.72-5.28); RED CELL DISTRIBUTION WIDTH 19.7 % (11.5-14.0); SEGMENTED NEUTROPHILS % (AUTO) 69.8 % (42-78); TOTAL CELLS COUNTED % (AUTO) 100 %; WHITE BLOOD COUNT 4.7 10^3/uL (4.0-10.5)
[2019-01-21 03:36] LABS: ANION GAP 8 (5-19); BLOOD UREA NITROGEN 13 mg/dL (7-20); CALCIUM 8.3 mg/dL (8.4-10.2); CARBON DIOXIDE 30 mmol/L (22-30); CHLORIDE 105 mmol/L (98-107); GLUCOSE 125 mg/dL (75-110); PHOSPHORUS 3.4 mg/dL (2.5-4.5); POTASSIUM 3.4 mmol/L (3.6-5.0)
[2019-01-21] MEDS ORDERED: MIDAZOLAM HCL 50 MG/100 ML RTUINJ IV PRN (03:57)
[2019-01-21] MEDS ORDERED: HALOPERIDOL LACTATE INJ 5 MG/1 ML VIAL IV PRN (03:58)
[2019-01-21] MEDS ORDERED: MIDAZOLAM HCL 50 MG/100 ML RTUINJ ONE (04:01)
[2019-01-21] MEDS: MINERAL OIL/PETROLATUM,WHITE OPH OINT 3.5 GM OU SCH ×2 (05:47→13:50)
[2019-01-21] MEDS: METHYLPREDNISOLONE INJ 40 MG/1 ML SDV IV SCH ×2 (05:47→17:43)
[2019-01-21] MEDS: FAMOTIDINE 20 MG TABLET PO SCH (05:48)
[2019-01-21] MEDS ORDERED: HYDRALAZINE HCL INJ/PF 20 MG/1 ML SDV IV ONE ×2 (06:16→06:45)
[2019-01-21] MEDS ORDERED: HYDRALAZINE HCL INJ/PF 20 MG/1 ML SDV ONE (06:19)
[2019-01-21] MEDS ORDERED: POTASSIUM CHLORIDE 20 MEQ PACKET PO ONE (07:40)
[2019-01-21] MEDS: RINGERS SOLUTION,LACTATED 1,000 ML IV PRN (09:03)
[2019-01-21] MEDS: ISOSORBIDE MONONITRATE 60 MG TAB.ER.24H PO SCH (09:32)
[2019-01-21] MEDS: BUSPIRONE HCL 10 MG TABLET PO SCH ×2 (09:32→21:13)
[2019-01-21] MEDS: ASPIRIN 81 MG TABLET, ENT COATED PO SCH (09:32)
[2019-01-21] MEDS: METOPROLOL TARTRATE 25 MG TABLET PO SCH ×2 (09:32→21:13)
[2019-01-21] MEDS: AMIODARONE HCL 200 MG TABLET PO SCH (09:32)
--- NOTE | 2019-01-21 09:56 | RADIOLOGY REPORT (SQ) ---
EXAM DESCRIPTION: CHEST SINGLE VIEW COMPLETED DATE/TIME: 01/21/2019 6:20 am REASON FOR STUDY: respiratory failure COMPARISON: 01/20/2019 NUMBER OF VIEWS: One view. TECHNIQUE: Single frontal radiographic image of the chest acquired. LIMITATIONS: None. FINDINGS: LUNGS AND PLEURA: Bilateral airspace disease not significantly changed allowing for differ ences technique. No pneumothorax. MEDIASTINUM AND HEART: Stable heart size and mediastinal structures. SUPPORT DEVICES: Appropriate location without change. BONY STRUCTURES: No acute findings. HARDWARE: None. OTHER: No other significant finding. IMPRESSION: STABLE APPEARANCE OF THE CHEST. SUPPORT DEVICES UNCHANGED. Reading location - IP/workstation name: [email or web address]
--- NOTE | 2019-01-21 14:05 | PDOC CRITICAL CARE PROG REPORT ---
General Date:: 01/21/19 ICU Day:: 3 Ventilator Day:: 3 Hospital Day:: 3 Events in the past 12 to 24 Hours:: Reason for ICU Admission:: Acute respiratory failure 01.21.19: Patient was reportedly extremely active and became combative last evening. She was given Haldol fentanyl and eventually placed on Versed drip. She failed her vent weaning trial yesterday with disconcerting blood gas. 01.20.19 Patient has been weaning on the ventilator. She went back on assist control last evening after tiring. This morning she endorses that she feels better and attempts to speak while on the ventilator. Review of systems relevant to events:: She did have some back discomfort yesterday which she chronically has. She has had no hemodynamic instability and no further fevers Review of systems relevant to events:: X-ray shows questionable effusion on the right. Bedside critical care ultrasound shows minimal effusion. There is significant lung consolidation and heparinization. Patient has been more awake and asking for marijuana. She does endorse that she has been vaping marijuana oils. Reason for ICU Addmission:: Acute respiratory failure - Medications: Medications reviewed and adjusted accordingly: Yes Vasopressors:: None Sedation:: Versed, haldol X1, Fentanyl Physical Exam Vital Signs: Temp Pulse Resp BP Pulse Ox 100.0 F 60 15 121/74 97 01/21/19 00:00 01/21/19 06:40 01/21/19 06:40 01/21/19 06:40 01/21/19 06:40 Intake & Output 01/20/19 01/21/19 01/22/19 06:59 06:59 06:59 Intake Total 2016 547 Output Total 1 820 Balance -309 -273 Weight 110.6 kg 112.6 kg Weight/Height Weight 112.6 kg Height 5 ft 4 in General appearance: PRESENT: no acute distress Exam: Intubated nontoxic older appearing 48-year-old black female no active distress on Versed drip. Eye exam: PRESENT: conjunctiva pink, PERRLA. ABSENT: conjunctival injection, nystagmus, scleral icterus Mouth exam: PRESENT: dry mucosa Neck exam: ABSENT: carotid bruit, JVD, lymphadenopathy, thyromegaly Respiratory exam: PRESENT: crackles, rhonchi, unlabored, other - Ultrasound of right lung shows no pleural effusion. There is consolidation with hepatization of the lung. ABSENT: tachypnea Cardiovascular exam: PRESENT: RRR. ABSENT: diastolic murmur, rubs, systolic murmur Pulses: PRESENT: +1 pedal pulses bilateral Vascular exam: PRESENT: normal capillary refill. ABSENT: pallor GI/Abdominal exam: PRESENT: normal bowel sounds, soft. ABSENT: distended, guarding, mass, organolmegaly, rebound, tenderness Rectal exam: PRESENT: deferred Gentrourinary exam: PRESENT: indwelling catheter Extremities exam: ABSENT: pedal edema Musculoskeletal exam: ABSENT: deformity, dislocation Neurological exam: PRESENT: awake. ABSENT: motor sensory deficit - Patient has been examined multiple times. Now more awake. Following commands. Writing on paper Psychiatric exam: PRESENT: appropriate affect, normal mood. ABSENT: homicidal ideation, suicidal ideation Focused psych exam: ABSENT: psychomotor agitation, restlessness Skin exam: PRESENT: dry, intact, warm. ABSENT: cyanosis, rash Tubes/Lines: PRESENT: Endotracheal Tube, Central Line, Arterial Catheter, Other - Jones catheter. All placed 11. Laboratory/Radiographs Laboratory Results: 01/21/19 03:05 01/21/19 03:05 01/20/19 01/20/19 01/21/19 12:46 14:36 03:05 WBC RBC Hgb Hct MCV MCH MCHC RDW Plt Count Seg Neutrophils % Carbonic Acid 1.91 H 1.82 H 1.62 H HCO3/H2CO3 Ratio 16:1 16:1 17:1 ABG pH 7.31 L 7.31 L 7.35 ABG pCO2 63.4 H 60.6 H 53.8 H ABG pO2 67.4 L 67.0 L 61.3 L ABG HCO3 30.8 H 30.0 H 28.8 H ABG O2 Saturation 91.1 L 91.2 L 89.9 L ABG Base Excess 3.0 2.6 2.3 FiO2 50% 50% 40% Sodium Potassium Chloride Carbon Dioxide Anion Gap BUN Creatinine Est GFR ( Amer) Glucose Calcium Phosphorus Magnesium 01/21/19 01/21/19 03:05 03:05 WBC 4.7 RBC 3.52 L Hgb 10.3 L Hct 32.3 L MCV 92 MCH 29.4 MCHC 32.0 RDW 19.7 H Plt Count 183 Seg Neutrophils % 69.8 Carbonic Acid HCO3/H2CO3 Ratio ABG pH ABG pCO2 ABG pO2 ABG HCO3 ABG O2 Saturation ABG Base Excess FiO2 Sodium 143.1 Potassium 3.4 L Chloride 105 Carbon Dioxide 30 Anion Gap 8 BUN 13 Creatinine 1.83 H Est GFR ( Amer) 36 L Glucose 125 H Calcium 8.3 L Phosphorus 3.4 Magnesium 2.1 01/19/19 01/19/19 01:05 04:54 Troponin I 0.036 NT-Pro-B Natriuret Pep 5340 H 7390 H Impressions: KUB X-Ray 01/20/19 17:22 IMPRESSION: Esophagogastric tube is positioned with tip and side port below the diaphragm. Otherwise stable AP portable examination. All labs, radiographs, diagnostic studies and EKGs were personally reviewed: Yes In addition, reports of radiographic and diagnostic studies were read: Yes Assessment and Plan - Diagnosis (1) Sepsis Qualifiers: Sepsis type: sepsis due to unspecified organism Sepsis acute organ dysfunction status: with acute organ dysfunction Severe sepsis acute organ dysfunction type: acute renal failure Severe sepsis shock status: with septic shock Is this a current diagnosis for this admission?: Yes Plan: Improving. (2) Acute respiratory failure with hypoxia Is this a current diagnosis for this admission?: Yes Plan: Improving (3) Acute lung injury associated with vaping Is this a current diagnosis for this admission?: Yes (4) Lactic acidosis Is this a current diagnosis for this admission?: Yes Plan: Improved (5) Pneumonia Qualifiers: Pneumonia type: due to unspecified organism Laterality: bilateral Lung location: unspecified part of lung Qualified Code(s): J18.9 - Pneumonia, unspecified organism Is this a current diagnosis for this admission?: Yes Plan: No positive cultures. Antibiotics for 5-7 days. (6) Left ventricular systolic dysfunction Is this a current diagnosis for this admission?: Yes Plan: Has history of heart failure. Has AICD. Mixed venous gas shows compensated pr ocess (7) AICD (automatic cardioverter/defibrillator) present Is this a current diagnosis for this admission?: Yes (8) Acute kidney failure Qualifiers: Acute renal failure type: with acute tubular necrosis Qualified Code(s): N17.0 - Acute kidney failure with tubular necrosis Is this a current diagnosis for this admission?: Yes Plan: Improving. Dose adjust Apixaban and medications (9) Pleural effusion Is this a current diagnosis for this admission?: Yes Plan: Minimal amount seen on Ultrasound done at bedside. Has enlarged liver and lung consolidation with "heptization" effect. (10) Engages in non-nicotine containing substance vaping Is this a current diagnosis for this admission?: Yes Plan Summary: 01.21.19: We will begin to wean vent again today. Discontinue Versed due to its prolonged effects. Transition to Precedex or propofol as needed. Given the patient's renal dysfunction and reduced GFR I have reduced her apixaban to a more appropriate dose. Have held this morning's apixaban dose and restarted at a lower dose for this evening at 6:00. Chest x-ray gives an appearance of significant pleural effusion however on critical care ultrasound there is minimal fluid present. She does have hepatization from consolidated lung (pneumonia). There is no indication for pleural evaluation or thoracentesis given the minute amount and her coagulation status. We will continue treatment with antibiotics. Patient has known reduced ejection fraction at baseline with ischemic cardiomyopathy. She has a combination of this situation and synergistic antagonism caused by sepsis. Both her lactic acid and her sepsis criteria have improved. Continue supportive care. Patient is extremely sedated and will hold any benzodiazepine use. Control agitation with Precedex Patient has disclosed that she has been vaping especially with marijuana. This has been a dawson topic in the medical literature especially with the use of marijuana based vaping. Suspicious that given her negative cultures that these lung situation is an acute vaping injury. Continue supportive care. . 01.20.19:We will continue the weaning process and anticipate patient liberation from ventilator today Follow respiratory cultures and continue antibiotics for at least 5 to 7 days. Patient has acute kidney injury and will need to continue to monitor. She did require diuresis secondary to a mixed pattern of pneumonia and pulmonary edema. Her metabolic alkalosis is worse today and will reduce diuresis. Start steroids as well for COPD. Creatinine is elevated as well. Will attempt to discern what her fluid needs are. Continue supportive care 01.19.19: She did have a temperature elevation of 103 and was placed on antibiotics. I have discontinued the vancomycin and piperacillin. Have changed to Rocephin and Azithromycin for now. We are awaiting respiratory Gram stain and cultures as well as blood cultures. Her skin is cool there is no mottling or discoloration. Did receive cold packs and Tylenol for her fever. Bedside critical care ultrasound and echo shows an ejection fraction that is approximately 30 to 35%. IVC appears to be filled and hepatic vein pressure appears to be high. I discontinued IV fluids at this point. We will continue supportive care. She is been placed on pressure support and will recheck ABG. He does have bilateral pleural effusions and will follow her creatinine, diuresis as needed. A fine judicious balance between fluid overload and volume resuscitation because of infection will need to be a priority. I have met with the patient's family and discussed the care plans and follow-up. I reviewed labs and chest x-ray Diagnoses 1. Acute hypoxic respiratory failure 2. Sepsis presumed source lung 3. Pneumonia community-acquired 4. History of biventricular heart failure with AICD 5. Acute on chronic renal failure 6. Lactic acidosis Total critical care time excluding any procedures 60 minutes Critical Time Critical Time (minutes): 60 - multiple evals for vent liberation and sedation Level of Care: ICU Anticipated discharge: Acute Rehab Within: within 48 hours -: 1. The care of a critical patient is a dynamic process. This note is a claim representative synopsis but static in nature. The timeframe for treatments given in order is not necessary the actual time these treatments may have been done. 2. This patient requires critical care secondary to ongoing requirements for therapy not offered or safe outside the critical care environment. Transfer to a lower level of care with altered life or limb morbidity and mortality. 3. Multidisciplinary rounds completed. 4. ABCDE bundle addressed. 5. MPOA: Daughter
[2019-01-21 14:28] LABS: ARTERIAL BLOOD FIO2 40%; ARTERIAL BLOOD H2CO3 1.28 mmol/L (1.05-1.35); ARTERIAL BLOOD HCO3 24.2 mmol/L (20-24); ARTERIAL BLOOD O2 SATURATION 89.5 % (94-98); ARTERIAL BLOOD PCO2 42.6 mmHg (35-45); ARTERIAL BLOOD PH 7.37 (7.35-7.45); ARTERIAL BLOOD PO2 58.2 mmHg (80-100); ARTERIAL BLOOD TOTAL CO2 25.5 mmol/L (21-25)
[2019-01-21] MEDS ORDERED: NITROGLYCERIN 0.4 MG/TAB 25 TAB/BOTTLE SL PRN (14:38)
[2019-01-21] MEDS ORDERED: PIPERACILLIN SODIUM/TAZOBACTAM 2.25 GM in NORMAL SALINE 50 ML IV SCH (15:00)
[2019-01-21] MEDS ORDERED: NALOXONE HCL INJ/PF 0.4 MG/1 ML SDV ONE (16:00)
[2019-01-21] MEDS ORDERED: RINGERS SOLUTION,LACTATED 1,000 ML IV PRN (16:23)
--- NOTE | 2019-01-21 16:28 | Progress Note ---
Provider Note Provider Note: The patient was maintained on ventilator weaning protocol throughout the day. Her ABG PCO2 was improved on pressure support CPAP. Her PO2 was lower than what would be expected however patient was adamant in wanting the tube out. Discussed the risk of possible reintubation however given the new data on noninvasive ventilation and BiPAP he felt it was safe to liberate the patient from the ventilator. While at bedside the patient was successfully liberated. She had no stridor and was able to phonate soon after. She was placed immediately on high flow to prevent any hypoxia or atelectasis. She will be on BiPAP at night. I have reconciled and restarted some of her home medications. I have had to discontinue the lady's leg in fear of a serotonin reaction with her Paxil. We have exchanged to Vancomycin CC time 20 min
[2019-01-21] MEDS ORDERED: PAROXETINE HCL 20 MG TABLET PO SCH (16:30)
[2019-01-21] MEDS ORDERED: VANCOMYCIN HCL 0 MG in DEXTROSE 5%-WATER 250 ML IV NR (16:30)
[2019-01-21] MEDS: PIPERACILLIN SODIUM/TAZOBACTAM 3.375 GM in NORMAL SALINE 100 ML IV SCH (17:42)
[2019-01-21] MEDS ORDERED: LINEZOLID 600 MG/300 ML RTUPB IV SCH (18:00)
[2019-01-21] MEDS ORDERED: VANCOMYCIN HCL INJ 1000 MG VIAL IV PRN (18:19)
[2019-01-21] MEDS ORDERED: VANCOMYCIN HCL 2,000 MG in DEXTROSE 5%-WATER 500 ML IV ONE (18:30)
[2019-01-21] MEDS: APIXABAN 5 MG TABLET PO SCH (18:41)
[2019-01-21] MEDS: MELATONIN 5 MG TABLET PO SCH (21:12)
[2019-01-21] MEDS: ATORVASTATIN CALCIUM 40 MG TABLET PO SCH (21:13)
[2019-01-21] MEDS: ALPRAZOLAM 0.5 MG TABLET PO PRN (21:13)
[2019-01-21] MEDS: AZITHROMYCIN 500 MG in DEXTROSE 5%-WATER 250 ML IV SCH (21:14)
[2019-01-22] MEDS: PIPERACILLIN SODIUM/TAZOBACTAM 3.375 GM in NORMAL SALINE 100 ML IV SCH ×4 (00:31→17:16)
[2019-01-22] MEDS: ALPRAZOLAM 0.5 MG TABLET PO PRN ×3 (01:44→22:14)
[2019-01-22] MEDS: ACETAMINOPHEN 325 MG TABLET PO PRN ×2 (01:47→22:33)
[2019-01-22 05:10] LABS: ARTERIAL BLOOD BASE EXCESS 0.9 mmol/L; ARTERIAL BLOOD H2CO3 1.26 mmol/L (1.05-1.35); ARTERIAL BLOOD HCO3 25.7 mmol/L (20-24); ARTERIAL BLOOD PCO2 41.8 mmHg (35-45); ARTERIAL BLOOD PH 7.41 (7.35-7.45); ARTERIAL BLOOD TOTAL CO2 26.9 mmol/L (21-25)
[2019-01-22 05:15] LABS: ARTERIAL BLOOD FIO2 30%
[2019-01-22 05:33] LABS: ABSOLUTE LYMPHOCYTES (AUTO) 0.4 10^3/uL (0.5-4.7); ABSOLUTE MONOCYTES (AUTO) 0.2 10^3/uL (0.1-1.4); ABSOLUTE NEUT (AUTO) 3.5 10^3/uL (1.7-8.2); BASOPHILS % (AUTO) 0.2 % (0-2); HEMATOCRIT 33.2 % (36.0-47.0); HEMOGLOBIN 10.7 g/dL (12.0-15.5); LYMPHOCYTES % (AUTO) 9.9 % (13-45); MEAN CORPUSCULAR HEMOGLOBIN 29.4 pg (27.0-33.4); MEAN CORPUSCULAR HGB CONC 32.3 g/dL (32.0-36.0); MEAN CORPUSCULAR VOLUME 91 fl (80-97); MONOCYTES % (AUTO) 4.6 % (3-13); PLATELET COUNT 216 10^3/uL (150-450); RED BLOOD COUNT 3.65 10^6/uL (3.72-5.28); RED CELL DISTRIBUTION WIDTH 19.8 % (11.5-14.0); SEGMENTED NEUTROPHILS % (AUTO) 85.3 % (42-78); TOTAL CELLS COUNTED % (AUTO) 100 %; WHITE BLOOD COUNT 4.1 10^3/uL (4.0-10.5)
[2019-01-22 05:40] LABS: ANION GAP 7 (5-19); BLOOD UREA NITROGEN 15 mg/dL (7-20); CALCIUM 8.8 mg/dL (8.4-10.2); CARBON DIOXIDE 30 mmol/L (22-30); CHLORIDE 103 mmol/L (98-107); GLUCOSE 113 mg/dL (75-110); PHOSPHORUS 4.3 mg/dL (2.5-4.5); POTASSIUM 4.1 mmol/L (3.6-5.0)
[2019-01-22] MEDS: METHYLPREDNISOLONE INJ 40 MG/1 ML SDV IV SCH ×2 (05:43→17:16)
--- NOTE | 2019-01-22 08:27 | RADIOLOGY REPORT (SQ) ---
EXAM DESCRIPTION: CHEST SINGLE VIEW COMPLETED DATE/TIME: 01/22/2019 5:57 am REASON FOR STUDY: pneumonia COMPARISON: 01/21/2019. EXAM PARAMETERS: NUMBER OF VIEWS: One view. TECHNIQUE: Single frontal radiographic view of the chest acquired. RADIATION DOSE: NA LIMITATIONS: None. FINDINGS: LUNGS AND PLEURA: Slight improved aeration. No large pleural effusion. MEDIASTINUM AND HILAR STRUCTURES: No masses. Contour normal. HEART AND VASCULAR STRUCTURES: Cardiomegaly. Mild vascular congestion. BONES: No acute findings. HARDWARE: Central line, defibrillator, sternotomy wires, surgical clips. The endotracheal tube has b een removed. OTHER: No other significant finding. IMPRESSION: SLIGHT IMPROVED AERATION. TECHNICAL DOCUMENTATION: JOB ID: [id number] [employer]- All Rights Reserved Reading location - IP/workstation name: [email or web address]
--- NOTE | 2019-01-22 09:23 | PDOC CRITICAL CARE PROG REPORT ---
General Date:: 01/22/19 ICU Day:: 4 Hospital Day:: 4 Events in the past 12 to 24 Hours:: Extubated to HF and bibap. Review of systems relevant to events:: Breathing easier but voice weak. Tolerating liquids. C/O back pain. Reason for ICU Addmission:: Acute respiratory failure, ventilator. - Medications: Medications reviewed and adjusted accordingly: Yes Vasopressors:: No Sedation:: No Physical Exam Vital Signs: Temp Pulse Resp BP Pulse Ox 100.0 F 60 15 121/73 97 01/21/19 00:00 01/21/19 20:00 01/22/19 06:00 01/21/19 20:00 01/22/19 06:00 Intake & Output 01/21/19 01/22/19 01/23/19 06:59 06:59 06:59 Intake Total 797 5362 Output Total 820 1585 180 Balance -23 3777 -180 Weight 112.6 kg 112.3 kg Weight/Height Weight 112.3 kg Height 5 ft 4 in General appearance: PRESENT: no acute distress, obese, well-developed, well- nourished Head exam: PRESENT: atraumatic, normocephalic Eye exam: PRESENT: conjunctiva pink, EOMI, PERRLA. ABSENT: scleral icterus Ear exam: PRESENT: normal external ear exam Mouth exam: PRESENT: moist, tongue midline Respiratory exam: PRESENT: rhonchi, unlabored, wheezes Cardiovascular exam: PRESENT: RRR. ABSENT: diastolic murmur, rubs, systolic murmur Pulses: PRESENT: normal dorsalis pedis pul Vascular exam: PRESENT: normal capillary refill GI/Abdominal exam: PRESENT: normal bowel sounds, soft. ABSENT: distended, g uarding, mass, organolmegaly, rebound, tenderness Rectal exam: PRESENT: deferred Extremities exam: PRESENT: full ROM. ABSENT: calf tenderness, clubbing, pedal edema Musculoskeletal exam: PRESENT: full ROM Neurological exam: PRESENT: alert, awake, oriented to person, oriented to place, oriented to time, oriented to situation, CN II-XII grossly intact. ABSENT: motor sensory deficit Skin exam: PRESENT: dry, intact, warm. ABSENT: cyanosis, rash Laboratory/Radiographs Laboratory Results: 01/22/19 05:00 01/22/19 04:30 01/21/19 01/22/1901/22/19 14:18 04:30 04:30 WBC RBC Hgb Hct MCV MCH MCHC RDW Plt Count Seg Neutrophils % Carbonic Acid 1.28 1.26 HCO3/H2CO3 Ratio 18:1 20:1 ABG pH 7.37 7.41 ABG pCO2 42.6 41.8 ABG pO2 58.2 L 74.0 L ABG HCO3 24.2 H 25.7 H ABG O2 Saturation 89.5 L 95.0 ABG Base Excess -1.0 0.9 FiO2 40% 30% Sodium 140.3 Potassium 4.1 Chloride 103 Carbon Dioxide 30 Anion Gap 7 BUN 15 Creatinine 1.25 Est GFR ( Amer) 56 L Glucose 113 H Calcium 8.8 Phosphorus 4.3 Magnesium 2.2 01/22/19 05:00 WBC 4.1 RBC 3.65 L Hgb 10.7 L Hct 33.2 L MCV 91 MCH 29.4 MCHC 32.3 RDW 19.8 H Plt Count 216 Seg Neutrophils % 85.3 H Carbonic Acid HCO3/H2CO3 Ratio ABG pH ABG pCO2 ABG pO2 ABG HCO3 ABG O2 Saturation ABG Base Excess FiO2 Sodium Potassium Chloride Carbon Dioxide Anion Gap BUN Creatinine Est GFR ( Amer) Glucose Calcium Phosphorus Magnesium 01/19/19 10:56 Tracheal Aspirate Gram Stain - Final 01/19/19 08:00 Jones Catheter Urine Culture - Final NO GROWTH 2 DAYS 01/19/19 01/19/19 01:05 04:54 Troponin I 0.036 NT-Pro-B Natriuret Pep 5340 H 7390 H Impressions: KUB X-Ray 01/20/19 17:22 IMPRESSION: Esophagogastric tube is positioned with tip and side port below the diaphragm. Otherwise stable AP portable examination. Chest X-Ray 01/22/19 06:00 IMPRESSION: SLIGHT IMPROVED AERATION. All labs, radiographs, diagnostic studies and EKGs were personally reviewed: Yes In addition, reports of radiographic and diagnostic studies were read: Yes Assessment and Plan - Diagnosis (1) Acute on chronic respiratory failure Qualifiers: Respiratory failure complication: hypoxia and hypercapnia Qualified Code(s): J96.21 - Acute and chronic respiratory failure with hypoxia; J96.22 - Acute and chronic respiratory failure with hypercapnia Is this a current diagnosis for this admission?: Yes Plan: Resolving as she is extubated but going from to bipap. I believe she would benefit fro Percocet for back pain. Get OOBm another day in s ICU. Starting home dose of lasix 80 mg. (2) CKD (chronic kidney disease) Qualifiers: Chronic kidney disease stage: stage 3 (moderate) Qualified Code(s): N18.3 - Chronic kidney disease, stage 3 (moderate) Is this a current diagnosis for this admission?: Yes Plan: Currently a stage II. I believe this is due to her volume oerload. Starting home dose of Lasix as she can toloerta this now. (3) CHF exacerbation Qualifiers: Heart failure type: combined systolic and diastolic Qualified Code(s): I50.43 - Acute on chronic combined systolic (congestive) and diastolic (congestive) heart failure Is this a current diagnosis for this admission?: Yes Plan: Seems to be mostly L sided but BNP 7200. Elements of biventriculae failure present. Starting lasix. (4) CAD (coronary artery disease) Qualifiers: Coronary Disease-Associated Artery/Lesion type: [place] artery [place] vs. transplanted heart: [place] heart Associated angina: without angina Qualified Code(s): I25.10 - Atherosclerotic heart disease of [place] coronary artery without angina pectoris Is this a current diagnosis for this admission?: Yes Plan: So far this is inactive. Plan Summary: HV, lasix. Mobilize and downgrade hopefully in a day Critical Time Critical Time (minutes): 35 Level of Care: ICU Anticipated discharge: Home Within: within 72 hours -: 1. The care of a critical patient is a dynamic process. This note is a jewelry sales representative synopsis but static in nature. The timeframe for treatments given in order is not necessary the actual time these treatments may have been done. 2. This patient requires critical care secondary to ongoing requirements for therapy not offered or safe outside the critical care environment. Transfer to a lower level of care with altered life or limb morbidity and mortality. 3. Multidisciplinary rounds completed. 4. ABCDE bundle addressed.
[2019-01-22] MEDS: ISOSORBIDE MONONITRATE 60 MG TAB.ER.24H PO SCH (09:55)
[2019-01-22] MEDS: METOPROLOL TARTRATE 25 MG TABLET PO SCH ×2 (09:55→22:34)
[2019-01-22] MEDS: APIXABAN 5 MG TABLET PO SCH ×2 (09:56→17:16)
[2019-01-22] MEDS: AMIODARONE HCL 200 MG TABLET PO SCH (09:57)
[2019-01-22] MEDS: ASPIRIN 81 MG TABLET, ENT COATED PO SCH (09:57)
[2019-01-22] MEDS: BUSPIRONE HCL 10 MG TABLET PO SCH ×2 (09:57→22:12)
[2019-01-22] MEDS: FUROSEMIDE 80 MG TABLET PO SCH ×2 (09:57→13:55)
[2019-01-22] MEDS: PAROXETINE HCL 20 MG TABLET PO SCH (11:00)
[2019-01-22] MEDS: OXYCODONE-ACETAMINOPHEN 5-325 MG TABLET PO PRN ×2 (12:31→20:47)
[2019-01-22] MEDS: VANCOMYCIN HCL 1,500 MG in DEXTROSE 5%-WATER 250 ML IV SCH (17:17)
[2019-01-22] MEDS: ATORVASTATIN CALCIUM 40 MG TABLET PO SCH (22:12)
[2019-01-22] MEDS: MELATONIN 5 MG TABLET PO SCH (22:13)
[2019-01-22] MEDS: AZITHROMYCIN 500 MG in DEXTROSE 5%-WATER 250 ML IV SCH (22:15)
[2019-01-23] MEDS: PIPERACILLIN SODIUM/TAZOBACTAM 3.375 GM in NORMAL SALINE 100 ML IV SCH ×2 (00:55→05:21)
[2019-01-23] MEDS: METHYLPREDNISOLONE INJ 40 MG/1 ML SDV IV SCH ×2 (05:21→17:26)
[2019-01-23 06:22] LABS: ANION GAP 9 (5-19); BLOOD UREA NITROGEN 23 mg/dL (7-20); CALCIUM 8.7 mg/dL (8.4-10.2); CARBON DIOXIDE 29 mmol/L (22-30); CHLORIDE 105 mmol/L (98-107); GLUCOSE 126 mg/dL (75-110); POTASSIUM 4.2 mmol/L (3.6-5.0)
[2019-01-23] MEDS ORDERED: PHARMACY COMMUNICATION ORDER MC SCH (08:00)
--- NOTE | 2019-01-23 09:22 | PDOC CRITICAL CARE PROG REPORT ---
General Date:: 01/23/19 ICU Day:: 5 Hospital Day:: 5 Events in the past 12 to 24 Hours:: Better oxygenation and decrease of oxygen support. Mobilzation. Review of systems relevant to events:: Respiratory, constitutional. Reason for ICU Addmission:: Acute respiratory failure, ventilator. - Medications: Medications reviewed and adjusted accordingly: Yes Vasopressors:: None Sedation:: None Physical Exam Vital Signs: Temp Pulse Resp BP Pulse Ox 96.1 F L 60 15 108/72 94 01/23/19 06:00 01/23/19 08:00 01/23/19 08:00 01/23/19 07:51 01/23/19 08:00 Intake & Output 01/22/19 01/23/19 01/24/19 06:59 06:59 06:59 Intake Total 5712 2152 Output Total 1585 1330 Balance 4127 822 Weight 112.3 kg 116.2 kg Weight/Height Weight 116.2 kg Height 5 ft 4 in General appearance: PRESENT: no acute distress, cooperative, morbidly obese Head exam: PRESENT: atraumatic, normocephalic Eye exam: PRESENT: conjunctiva pink, EOMI, PERRLA. ABSENT: scleral icterus Ear exam: PRESENT: normal external ear exam Mouth exam: PRESENT: moist, tongue midline Respiratory exam: PRESENT: clear to auscultation renu, decreased breath sounds, unlabored. ABSENT: rales, rhonchi, wheezes Cardiovascular exam: PRESENT: RRR. ABSENT: diastolic murmur, rubs, systolic murmur GI/Abdominal exam: PRESENT: normal bowel sounds, soft. ABSENT: distended, guarding, mass, organolmegaly, rebound, tenderness Rectal exam: PRESENT: deferred Extremities exam: PRESENT: full ROM. ABSENT: calf tenderness, clubbing, pedal edema Neurological exam: PRESENT: alert, awake, oriented to person, oriented to place, oriented to time, oriented to situation, CN II-XII grossly intact. ABSENT: motor sensory deficit Tubes/Lines: PRESENT: Arterial Catheter Laboratory/Radiographs Laboratory Results: 01/22/19 05:00 01/23/19 05:35 01/23/19 05:35 Sodium 142.6 Potassium 4.2 Chloride 105 Carbon Dioxide 29 Anion Gap 9 BUN 23 H Creatinine 1.61 H Est GFR ( Amer) 42 L Glucose 126 H Calcium 8.7 01/19/19 10:56 Tracheal Aspirate Gram Stain - Final 01/19/19 10:56 Tracheal Aspirate Sputum Culture - Final Mrsa (Meth Resis Staph Aureus) Normal Evelyn 01/19/19 01/19/19 01:05 04:54 Troponin I 0.036 NT-Pro-B Natriuret Pep 5340 H 7390 H Impressions: KUB X-Ray 01/20/19 17:22 IMPRESSION: Esophagogastric tube is positioned with tip and side port below the diaphragm. Otherwise stable AP portable examination. Chest X-Ray 01/22/19 06:00 IMPRESSION: SLIGHT IMPROVED AERATION. All labs, radiographs, diagnostic studies and EKGs were personally reviewed: Yes In addition, reports of radiographic and diagnostic studies were read: Yes Assessment and Plan - Diagnosis (1) Acute on chronic respiratory failure Qualifiers: Respiratory failure complication: hypoxia and hypercapnia Qualified Code(s): J96.21 - Acute and chronic respiratory failure with hypoxia; J96.22 - Acute and chronic respiratory failure with hypercapnia Is this a current diagnosis for this admission?: Yes Plan: Resolving. She is now on nasal cannula, will try to avoid bipap. Mobillize by walking (2) CKD (chronic kidney disease) Qualifiers: Chronic kidney disease stage: stage 3 (moderate) Qualified Code(s): N18.3 - Chronic kidney disease, stage 3 (moderate) Is this a current diagnosis for this admission?: Yes (3) CHF exacerbation Qualifiers: Heart failure type: combined systolic and diastolic Qualified Code(s): I50.43 - Acute on chronic combined systolic (congestive) and diastolic (congestive) heart failure Is this a current diagnosis for this admission?: Yes Plan: At this point this seems resolved. EF about 25-30% (4) CAD (coronary artery disease) Qualifiers: Coronary Disease-Associated Artery/Lesion type: [place] artery [place] vs. transplanted heart: [place] heart Associated angina: without angina Qualified Code(s): I25.10 - Atherosclerotic heart disease of [place] coronary artery without angina pectoris Is this a current diagnosis for this admission?: Yes Plan: Inactive. (5) CKD (chronic kidney disease), stage III Is this a current diagnosis for this admission?: Yes Plan: Her CKD now at stage 2 Plan Summary: Mobilize and decrease o2. Critical Time Critical Time (minutes): 35 Level of Care: MEDICAL Anticipated discharge: Home Within: within 48 hours -: 1. The care of a critical patient is a dynamic process. This note is a benefits representative synopsis but static in nature. The timeframe for treatments given in order is not necessary the actual time these treatments may have been done. 2. This patient requires critical care secondary to ongoing requirements for therapy not offered or safe outside the critical care environment. Transfer to a lower level of care with altered life or limb morbidity and mortality. 3. Multidisciplinary rounds completed. 4. ABCDE bundle addressed.
[2019-01-23] MEDS: BUSPIRONE HCL 10 MG TABLET PO SCH ×2 (09:48→21:50)
[2019-01-23] MEDS: METOPROLOL TARTRATE 25 MG TABLET PO SCH ×2 (09:48→21:51)
[2019-01-23] MEDS: ISOSORBIDE MONONITRATE 60 MG TAB.ER.24H PO SCH (09:48)
[2019-01-23] MEDS: FUROSEMIDE 80 MG TABLET PO SCH (09:49)
[2019-01-23] MEDS: ASPIRIN 81 MG TABLET, ENT COATED PO SCH (09:50)
[2019-01-23] MEDS: AMIODARONE HCL 200 MG TABLET PO SCH (09:50)
[2019-01-23] MEDS: PAROXETINE HCL 20 MG TABLET PO SCH (09:56)
[2019-01-23] MEDS: APIXABAN 2.5 MG TABLET PO SCH ×2 (09:59→17:26)
[2019-01-23] MEDS: OXYCODONE-ACETAMINOPHEN 5-325 MG TABLET PO PRN ×2 (14:24→21:51)
[2019-01-23] MEDS: VANCOMYCIN HCL 1,500 MG in DEXTROSE 5%-WATER 250 ML IV SCH (17:26)
[2019-01-23] MEDS: ACETAMINOPHEN 325 MG TABLET PO PRN (20:54)
[2019-01-23] MEDS: MELATONIN 5 MG TABLET PO SCH (21:50)
[2019-01-23] MEDS: ATORVASTATIN CALCIUM 40 MG TABLET PO SCH (21:51)
[2019-01-24] MEDS: METHYLPREDNISOLONE INJ 40 MG/1 ML SDV IV SCH (06:15)
[2019-01-24 07:14] LABS: ANION GAP 10 (5-19); BLOOD UREA NITROGEN 27 mg/dL (7-20); CARBON DIOXIDE 28 mmol/L (22-30); CHLORIDE 107 mmol/L (98-107); GLUCOSE 141 mg/dL (75-110); POTASSIUM 4.4 mmol/L (3.6-5.0)
[2019-01-24] MEDS: FUROSEMIDE 80 MG TABLET PO SCH (09:21)
[2019-01-24] MEDS: PAROXETINE HCL 20 MG TABLET PO SCH (09:21)
[2019-01-24] MEDS: ASPIRIN 81 MG TABLET, ENT COATED PO SCH (09:21)
[2019-01-24] MEDS: METOPROLOL TARTRATE 25 MG TABLET PO SCH (09:22)
[2019-01-24] MEDS: BUSPIRONE HCL 10 MG TABLET PO SCH (09:22)
[2019-01-24] MEDS: AMIODARONE HCL 200 MG TABLET PO SCH (09:23)
[2019-01-24] MEDS: APIXABAN 2.5 MG TABLET PO SCH (09:23)
[2019-01-24] MEDS: ALPRAZOLAM 0.5 MG TABLET PO PRN (09:23)
[2019-01-24] MEDS: ISOSORBIDE MONONITRATE 60 MG TAB.ER.24H PO SCH (09:23)
--- NOTE | 2019-01-24 11:09 | PDOC DISCHARGE SUMMARY ---
Impression - Admit/DC Date/PCP Admission Date/Primary Care Provider: 01/23/19 07:26 YI SANCHEZ DO Discharge Date: 01/24/19 - Discharge Diagnosis (1) Acute on chronic respiratory failure Is this a current diagnosis for this admission?: Yes (2) CKD (chronic kidney disease) Is this a current diagnosis for this admission?: Yes (3) CHF exacerbation Is this a current diagnosis for this admission?: Yes (4) CAD (coronary artery disease) Is this a current diagnosis for this admission?: Yes (5) CKD (chronic kidney disease), stage III Is this a current diagnosis for this admission?: Yes - Assessment Summary: A 48 yo woman with multiple medical issues incuding EF 20-25 %. AICD. COPD with a MRSA PNA. Intubated in the ED. Extubated on the . On home O2 at 2L. At baseline. Wants to go home will send home on bactrim ONCE a day due to renal function. - Additional Information Resuscitation Status: Full Code Discharge Diet: Cardiac, Diabetic Discharge Activity: Activity As Tolerated, Balance Activity w/Rest, Weigh Daily Referrals: YI SANCHEZ DO [Primary Care Provider] - Follow up as needed Home Medications: Alprazolam [Xanax 0.5 mg Tablet] 0.5 mg PO Q6HP PRN 10/04/18 Amiodarone HCl [Cordarone 200 mg Tablet] 400 mg PO DAILY 10/04/18 Apixaban [Eliquis 5 mg Tablet] 5 mg PO BID 10/04/18 Aspirin [Adult Low Dose Aspirin EC] 81 mg PO DAILY 10/04/18 Atorvastatin Calcium [Lipitor 80 mg Tablet] 80 mg PO DAILY 10/04/18 Buspirone HCl [Buspar 10 mg Tablet] 10 mg PO Q12 10/04/18 Famotidine [Pepcid 40 mg Tablet] 40 mg PO BID 10/04/18 Furosemide [Lasix 80 mg Tablet] 80 mg PO BID 10/04/18 Isosorbide Mononitrate [Imdur 60 mg Tablet.er] 60 mg PO DAILY 10/04/18 Melatonin 1 mg PO QHS 10/04/18 Metoprolol Succinate [Toprol Xl 50 mg Tab.sr] 50 mg PO DAILY 10/04/18 Nitroglycerin 0.4 mg SL Q5MP PRN 10/04/18 Paroxetine HCl [Paxil 20 mg Tablet] 20 mg PO DAILY 10/04/18 Sacubitril/Valsartan [Entresto 49 mg/51 mg Tablet] 1 tab PO Q12 10/04/18 History of Present Illiness History of Present Illness: FRANKI DEL ROSARIO is a 48 year old female initially failed bipap and intubated with MRSA in sputum. Complicated by COPD, CHF. She is back to baseline on 2l NC she uses at home. Walking and wanting to go home. Hospital Course Hospital Course: Extubated on the . Progressive improvement, mobilization. Walking. No fever. No secretions. Physical Exam Vital Signs: Temp Pulse Resp BP Pulse Ox 97.6 F 62 16 120/85 90 L 01/23/19 20:57 01/24/19 10:44 01/24/19 10:44 01/23/19 20:57 01/24/19 10:44 Intake & Output 01/23/19 01/24/19 01/25/19 06:59 06:59 06:59 Intake Total 2152 250 Output Total 1330 475 Balance 822 -225 Weight 116.2 kg 114.6 kg General appearance: PRESENT: no acute distress, well-developed, well-nourished Head exam: PRESENT: atraumatic, normocephalic Eye exam: PRESENT: conjunctiva pink, EOMI, PERRLA. ABSENT: scleral icterus Ear exam: PRESENT: normal external ear exam Mouth exam: PRESENT: moist, tongue midline Respiratory exam: PRESENT: clear to auscultation renu, decreased breath sounds. ABSENT: rales, rhonchi, wheezes Cardiovascular exam: PRESENT: RRR. ABSENT: diastolic murmur, rubs, systolic murmur Vascular exam: PRESENT: normal capillary refill GI/Abdominal exam: PRESENT: normal bowel sounds, soft. ABSENT: distended, guarding, mass, organolmegaly, rebound, tenderness Rectal exam: PRESENT: deferred Extremities exam: PRESENT: full ROM. ABSENT: calf tenderness, clubbing, pedal edema Musculoskeletal exam: PRESENT: normal inspection Neurological exam: PRESENT: alert, awake, oriented to person, oriented to place, oriented to time, oriented to situation, CN II-XII grossly intact. ABSENT: motor sensory deficit Skin exam: PRESENT: dry, intact, warm. ABSENT: cyanosis, rash Results Laboratory Results: WBC 4.1 10^3/uL (4.0-10.5) 01/22/19 05:00 RBC 3.65 10^6/uL (3.72-5.28) L 01/22/19 05:00 Hgb 10.7 g/dL (12.0-15.5) L 01/22/19 05:00 Hct 33.2 % (36.0-47.0) L 01/22/19 05:00 MCV 91 fl (80-97) 01/22/19 05:00 MCH 29.4 pg (27.0-33.4) 01/22/19 05:00 MCHC 32.3 g/dL (32.0-36.0) 01/22/19 05:00 RDW 19.8 % (11.5-14.0) H 01/22/19 05:00 Plt Count 216 10^3/uL (150-450) 01/22/19 05:00 Lymph % (Auto) 9.9 % (13-45) L 01/22/19 05:00 [place]imer % (Auto) 4.6 % (3-13) 01/22/19 05:00 Eos % (Auto) 0.0 % (0-6) 01/22/19 05:00 Baso % (Auto) 0.2 % (0-2) 01/22/19 05:00 Absolute Neuts (auto) 3.5 10^3/uL (1.7-8.2) 01/22/19 05:00 Absolute Lymphs (auto) 0.4 10^3/uL (0.5-4.7) L 01/22/19 05:00 Absolute Monos (auto) 0.2 10^3/uL (0.1-1.4) 01/22/19 05:00 Absolute Eos (auto) 0.0 10^3/uL (0.0-0.6) 01/22/19 05:00 Absolute Basos (auto) 0.0 10^3/uL (0.0-0.2) 01/22/19 05:00 Seg Neutrophils % 85.3 % (42-78) H 01/22/19 05:00 Carbonic Acid 1.26 mmol/L (1.05-1.35) 01/22/19 04:30 HCO3/H2CO3 Ratio 20:1 01/22/19 04:30 ABG pH 7.41 (7.35-7.45) 01/22/19 04:30 ABG pCO2 41.8 mmHg (35-45) 01/22/19 04:30 ABG pO2 74.0 mmHg (80-100) L 01/22/19 04:30 ABG HCO3 25.7 mmol/L (20-24) H 01/22/19 04:30 ABG Total CO2 26.9 mmol/L (21-25) H 01/22/19 04:30 ABG O2 Saturation 95.0 % (94-98) 01/22/19 04:30 ABG Base Excess 0.9 mmol/L 01/22/19 04:30 FiO2 30% 01/22/19 04:30 Sodium 144.5 mmol/L (137-145) 01/24/19 06:41 Potassium 4.4 mmol/L (3.6-5.0) 01/24/19 06:41 Chloride 107 mmol/L (98-107) 01/24/19 06:41 Carbon Dioxide 28 mmol/L (22-30) 01/24/19 06:41 Anion Gap 10 (5-19) 01/24/19 06:41 BUN 27 mg/dL (7-20) H 01/24/19 06:41 Creatinine 1.30 mg/dL (0.52-1.25) H 01/24/19 06:41 Est GFR ( Amer) 53 (>60) L 01/24/19 06:41 Est GFR (MDRD) Non-Af 44 (>60) L 01/24/19 06:41 Glucose 141 mg/dL (75-110) H 01/24/19 06:41 POC Glucose 133 mg/dL (70-110) H 01/23/19 02:31 Lactic Acid 1.0 mmol/L (0.7-2.1) 01/19/19 17:55 Calcium 9.0 mg/dL (8.4-10.2) 01/24/19 06:41 Phosphorus 4.3 mg/dL (2.5-4.5) 01/22/19 04:30 Magnesium 2.2 mg/dL (1.6-2.3) 01/22/19 04:30 Total Bilirubin 2.3 mg/dL (0.2-1.3) H 01/19/19 04:54 Direct Bilirubin 1.1 mg/dL (0.0-0.4) H 01/19/19 04:54 Neonat Total Bilirubin Not Reportable 01/19/19 04:54 Neonat Direct Bilirubin Not Reportable 01/19/19 04:54 Neonat Indirect Bili Not Reportable 01/19/19 04:54 AST 189 U/L (14-36) H 01/19/19 04:54 ALT 78 U/L (<35) 01/19/19 04:54 Alkaline Phosphatase 97 U/L (38-126) 01/19/19 04:54 Ammonia < 8.7 umol/L (9-33) L 01/20/19 03:20 Troponin I 0.036 ng/mL 01/19/19 01:05 NT-Pro-B Natriuret Pep 7390 pg/mL (<125) H 01/19/19 04:54 Total Protein 7.2 g/dL (6.3-8.2) 01/19/19 04:54 Albumin 3.8 g/dL (3.5-5.0) 01/19/19 04:54 Urine Color YELLOW 01/19/19 08:00 Urine Appearance SLIGHTLY-CLOUDY 01/19/19 08:00 Urine pH 7.0 (5.0-9.0) 01/19/19 08:00 Ur Specific [place] 1.008 01/19/19 08:00 Urine Protein 30 mg/dL (NEGATIVE) H 01/19/19 08:00 Urine Glucose (UA) 50 mg/dL (NEGATIVE) H 01/19/19 08:00 Urine Ketones NEGATIVE mg/dL (NEGATIVE) 01/19/19 08:00 Urine Blood NEGATIVE (NEGATIVE) 01/19/19 08:00 Urine Nitrite NEGATIVE (NEGATIVE) 01/19/19 08:00 Urine Bilirubin NEGATIVE (NEGATIVE) 01/19/19 08:00 Urine Urobilinogen 4.0 mg/dL (<2.0) H 01/19/19 08:00 Ur Leukocyte Esterase NEGATIVE (NEGATIVE) 01/19/19 08:00 Urine WBC (Auto) 5 /HPF 01/19/19 08:00 Urine RBC (Auto) 3 /HPF 01/19/19 08:00 U Hyaline Cast (Auto) 7 /LPF 01/19/19 08:00 Squamous Epi Cells Auto 1 /HPF 01/19/19 08:00 Urine Mucus (Auto) RARE /LPF 01/19/19 08:00 Urine Ascorbic Acid NEGATIVE (NEGATIVE) 01/19/19 08:00 Urine Opiates Screen NEGATIVE 01/19/19 08:00 Urine Methadone Screen NEGATIVE 01/19/19 08:00 Ur Barbiturates Screen NEGATIVE 01/19/19 08:00 Ur Phencyclidine Scrn NEGATIVE 01/19/19 08:00 Ur Amphetamines Screen NEGATIVE 01/19/19 08:00 U Benzodiazepines Scrn UNCONFIRMED POSITIVE 01/19/19 08:00 Urine Cocaine Screen NEGATIVE 01/19/19 08:00 U Marijuana (THC) Screen UNCONFIRMED POSITIVE 01/19/19 08:00 01/19/19 01/19/19 01:05 04:54 Troponin I 0.036 NT-Pro-B Natriuret Pep 5340 H 7390 H Impressions: Chest X-Ray 01/19/19 00:00 IMPRESSION: 1. Mild pulmonary edema. No pleural effusions. 2. Previous sternotomy. Cardiomegaly. 3. AICD Chest X-Ray 01/19/19 00:00 IMPRESSION: Tubes and lines appear in good position. There has been mild worsening of bilateral edema and/or pneumonia. Chest X-Ray 01/20/19 06:00 IMPRESSION: Improving pneumonia or edema. No pneumothorax. KUB X-Ray 01/20/19 17:22 IMPRESSION: Esophagogastric tube is positioned with tip and side port below the diaphragm. Otherwise stable AP portable examination. Chest X-Ray 01/21/19 06:00 IMPRESSION: STABLE APPEARANCE OF THE CHEST. SUPPORT DEVICES UNCHANGED. Chest X-Ray 01/22/19 06:00 IMPRESSION: SLIGHT IMPROVED AERATION. Plan Health Concerns: Recurrance of any chronic health problems. Plan of Treatment: Bactrim once a day in view of kidney function. Goals: Back to usual functional state for which she seems to be. Critical Time: 30 Level of Care: MEDICAL Stroke Is this a Stroke Patient?: No Acute Heart Failure - Is this a Heart Failure Patient?: Yes Documentation of LVEF assessment?: Yes LVEF < 40%?: Yes-if yes answer questions a through e a) Discharged on ACEI?: No, document contraindications - Poor kidney function Reason(s) not discharge on ACEI: Impaied/worsening renal function b) Discharges on ARB?: No-document contraindications Reason(s) not discharged on ARB: Impaired/worsening renal functions c) Discharged on ARNI?: No-Document Contraindications Reason(s) not discharged on ARNI: Impaired/worsening renal functions d) Discharged on evidence-based Beta rip(carvedilol, sustained release metoprolol succinate, or bisoprolol)?: Yes e) For LVEF <35%, discharged on Aldosterone antagonist?: No-document contraincations Reason(s) not discharged on Aldosterone antagonist for LVEF < 35%: Other 3. Anticoagulant therapy for permanect/persistent/paraoxysmal Afib or Aflutter: Yes Follow-up Appointment scheduled within 7 days?: Yes
[2019-01-24 12:18] VITALS: BP 127/84
[2019-01-24] MEDS ORDERED: PHARMACY COMMUNICATION ORDER MC SCH (17:45)
== END 2019-01-24 12:15 | disposition home or self-care (01) | DRG 871 ==
LOC: ER 00:32 → UNDOADMIN 03:26 → EH 03:26 → ICU 03:30 → EH 03:30 → ICU 01-23 07:26
PROVIDERS: ADMIT Internal Medicine Critical Care Medicine; ATTEND Internal Medicine Critical Care Medicine
PROC: 5A1945Z Respiratory Ventilation, 24-96 Consecutive Hours (ICD-10-PCS; principal; 2019-01-19)
PROC: 0BH17EZ Insertion of Endotracheal Airway into Trachea, Via Natural or Artificial Opening (ICD-10-PCS; 2019-01-19)
PROC: 5A09357 Assistance with Respiratory Ventilation, Less than 24 Consecutive Hours, Continuous Positive Airway Pressure (ICD-10-PCS; 2019-01-19)
PROC: 5A09457 Assistance with Respiratory Ventilation, 24-96 Consecutive Hours, Continuous Positive Airway Pressure (ICD-10-PCS; 2019-01-21)
DX: A41.9 Sepsis, unspecified organism (principal); J15.212 Pneumonia due to Methicillin resistant Staphylococcus aureus; J96.22 Acute and chronic respiratory failure with hypercapnia; J96.21 Acute and chronic respiratory failure with hypoxia; R65.21 Severe sepsis with septic shock; N17.0 Acute kidney failure with tubular necrosis; I50.43 Acute on chronic combined systolic (congestive) and diastolic (congestive) heart failure; J44.0 Chronic obstructive pulmonary disease with (acute) lower respiratory infection; N18.4 Chronic kidney disease, stage 4 (severe); N17.9 Acute kidney failure, unspecified; J68.0 Bronchitis and pneumonitis due to chemicals, gases, fumes and vapors; I25.10 Atherosclerotic heart disease of native coronary artery without angina pectoris; E66.01 Morbid (severe) obesity due to excess calories; G47.33 Obstructive sleep apnea (adult) (pediatric); K21.9 Gastro-esophageal reflux disease without esophagitis; F32.9 Major depressive disorder, single episode, unspecified; Z78.1 Physical restraint status; F17.298 Nicotine dependence, other tobacco product, with other nicotine-induced disorders; Z99.81 Dependence on supplemental oxygen; Z79.899 Other long term (current) drug therapy; Z79.82 Long term (current) use of aspirin; Z95.810 Presence of automatic (implantable) cardiac defibrillator; Z95.1 Presence of aortocoronary bypass graft; Z95.5 Presence of coronary angioplasty implant and graft; Z79.01 Long term (current) use of anticoagulants; Z88.8 Allergy status to other drugs, medicaments and biological substances; Z88.6 Allergy status to analgesic agent; Z91.012 Allergy to eggs
CPT/HCPCS: 36415; 51702; 71045; 74018; 80048; 80053; 80307; 81001; 82140; 82803; 82962; 83605; 83735; 83880; 84100; 84484; 85025; 87040; 87070; 87077; 87086; 87186; 87205; 93005; 93010; 94002; 94003; 94640; 94660; 96374; 96375; 96376; 99238; 99285; 99291; 99292; C1751; J0330; J0360; J0456; J0696; J1650; J1940; J2060; J2250; J2405; J2543; J2704; J2920; J3010; J3370; J3490; J7050; J7060; J7120; P9047; S0028

== ENCOUNTER 2019-02-08 02:41 | Inpatient (IN) | payer MEDICAID ==
[2019-02-08] MEDS ORDERED: IPRATROPIUM/ALBUTEROL 0.5-2.5 MG/3 ML AMPUL NEB ONE ×3 (02:45→04:06)
[2019-02-08] MEDS ORDERED: KETAMINE HCL INJ 500 MG/10 ML VIAL ONE (02:46)
[2019-02-08] MEDS ORDERED: NITROGLYCERIN/D5W 50 MG/250 ML RTUINJ IV ONE (02:50)
[2019-02-08] MEDS ORDERED: SUCCINYLCHOLINE CHLORIDE INJ 200 MG/10 ML VIAL IV ONE (03:15)
[2019-02-08] MEDS ORDERED: MIDAZOLAM HCL 50 MG/100 ML RTUINJ IV PRN (03:15)
[2019-02-08] MEDS ORDERED: KETAMINE HCL INJ 500 MG/10 ML VIAL IV ONE ×2 (03:15→03:34)
[2019-02-08] MEDS: MIDAZOLAM HCL 50 MG/100 ML RTUINJ IV PRN ×5 (03:16→22:26)
[2019-02-08] MEDS ORDERED: METHYLPREDNISOLONE INJ 125 MG/2 ML SDV IV ONE ×2 (03:18→04:11)
[2019-02-08] MEDS ORDERED: NITROGLYCERIN/D5W 50 MG/250 ML RTUINJ IV PRN (03:18)
--- NOTE | 2019-02-08 03:23 | ER Document Report ---
ED General - General Stated Complaint: DIFFICULTY BREATHING Time Seen by Provider: 02/08/19 02:41 Primary Care Provider: YI SANCHEZ DO [Primary Care Provider] - Follow up as needed Notes: 48-year-old female brought in by EMS for sudden onset of difficulty breathing when she woke up in the middle of the night. For EMS they had difficulty getting an IV, did not give any steroids, did 1 albuterol breathing treatment, gave 4 mg of Zofran IM because she had nausea while being placed on CPAP. Placed her on CPAP. Patient was as low as 50% oxygen saturation. Patient gives me no history due to respiratory distress. EMS states that she has been intubated multiple times for COPD. TRAVEL OUTSIDE OF THE [place] IN LAST 30 DAYS: No - Related Data Allergies/Adverse Reactions: egg [Egg] Allergy (Verified 10/04/18 00:18) hydrocodone [From Vicodin] Allergy (Verified 10/04/18 00:18) propoxyphene [From Darvocet-N] Allergy (Verified 10/04/18 00:18) amiodarone Adverse Reaction (Verified 10/04/18 00:18) Respiratory distress diphenhydramine HCl [From Benadryl] Adverse Reaction (Verified 10/04/18 00:18) chest pain, bigemeny rhythm Past Medical History - General Information source: Emergency Med Personnel Cannot obtain history due to: Altered mental status - Social History Smoking Status: Smoker,Current Status Unk Family History: CAD, CVA, DM, Hypertension, Malignancy, Other - Kidney disease - Past Medical History Cardiac Medical History: Reports: Hx Atrial Fibrillation, Hx Congestive Heart Failure, Hx Coronary Artery Disease, Hx Heart Attack, Hx Hypercholesterolemia, Hx Hypertension Denies: Hx DVT, Hx Pulmonary Embolism Pulmonary Medical History: Reports: Hx Bronchitis, Hx COPD, Hx Pneumonia, Hx Intubation, Hx Respiratory Failure, Hx Sleep Apnea Denies: Hx Asthma Neurological Medical History: Denies: Hx Cerebrovascular Accident, Hx Seizures Endocrine Medical History: Denies: Hx Diabetes Mellitus Type 1, Hx Diabetes Mellitus Type 2, Hx Hyperthyroidism, Hx Hypothyroidism Renal/ Medical History: Reports: Hx Kidney Stones, Hx Renal Insufficiency. Denies: Hx Peritoneal Dialysis GI Medical History: Reports: Hx Gastroesophageal Reflux Disease. Denies: Hx Cirrhosis, Hx Crohn's Disease, Hx Hepatitis, Hx Hiatal Hernia, Hx Ulcer, Hx Ulcerative Colitis Musculoskeletal Medical History: Denies Hx Arthritis, Denies Hx Gout Skin Medical History: Denies Hx Eczema, Denies Hx Psoriasis Psychiatric Medical History: Reports: Hx Anxiety, Hx Depression, Hx Schizo phrenia Infectious Medical History: Denies: Hx Hepatitis Past Surgical History: Reports: Hx Cardiac Catheterization - multiple, Hx Cardiac Surgery - pacemaker/icd, Hx Section, Hx Coronary Artery Bypass Graft - 2006, Hx Coronary Stent - Multiple, Hx Hysterectomy, Hx Open Heart Surgery - BYPASS 2006, Hx Pacemaker - AICD, Hx Tubal Ligation. Denies: Hx Mastectomy - Immunizations Hx Diphtheria, Pertussis, Tetanus Vaccination: Yes Hx Pneumococcal Vaccination: 04/04/12 Review of Systems - Review of Systems -: Yes ROS unobtainable due to patient's medical condition Physical Exam - Vital signs Vitals: Pulse Ox 100 02/08/19 03:15 Interpretation: Hypoxic, Tachypneic - Notes Notes: GENERAL: Sitting straight up supported by the bed, head drooping forward, acutely short of breath, severe respiratory distress, does not answer any questions. Opens her eyes to her name. On CPAP HEAD: Normocephalic, atraumatic EYES: Pupils equal, round and reactive to light, extraocular movements intact. ENT: Oral mucosa moist, tongue midline. NECK: Full range of motion, supple, trachea midline. LUNGS: Inspiratory rhonchi, diffuse expiratory wheezes, severe respiratory distress, using accessory muscles of respiration. HEART: Tachycardic rate and rhythm, no murmurs, gallops, rubs. ABDOMEN: Soft, nontender, nondistended, bowel sounds present in all 4 quadrants. EXTREMITIES: Trace pitting edema bilateral feet, radial and dorsalis pedis pulses 2/4 bilaterally. NEUROLOGICAL: Obtunded, able to squeeze my fingers, no facial droop. SKIN: Warm, Dry. Course - Re-evaluation Re-evalutation: 02/08/19 04:15 On arrival patient was acutely in respiratory distress, switched to BiPAP, given multiple breathing treatments, given push dose nitroglycerin which did not relieve for wheezing or her rales. Patient was then intubated using ketamine and socks, patient was then sedated using Versed however she maxed out the drip at 10 mg/h, patient was then given more ketamine as she is allergic to egg and cannot be started on propofol. Patient was given further breathing treatments, taken off of nitroglycerin due to some hypotension, started on Lasix. Laboratory studies have been ordered. Patient was discussed with ICU DOUG Shukla who agreed to accept the patient on behalf of Dr. Batres. Laboratory studies are still pending. EKG is nonischemic, patient has received intermittent doses of ketamine to maintain sedation. Patient is admitted to the ICU. - Vital Signs Vital signs: Temp Pulse Resp BP Pulse Ox 100 02/08/19 03:15 - Laboratory Result Diagrams: 02/08/19 03:24 Laboratory results interpreted by me: 02/08/19 03:30 Carbonic Acid 1.63 H ABG pH 7.24 L ABG pCO2 54.0 H ABG pO2 66.3 L ABG O2 Saturation 89.4 L - EKG Interpretation by Me Additional EKG results interpreted by me: 02/08/19 03:38 EKG shows A. fib, rate of 69, left bundle branch block, occasional paced ventricular complexes, no significant change from prior EKG per my interpretation. 02/08/19 03:58 Repeat EKG shows AV dual paced rhythm at a rate of 60, no STEMI, change from old EKG performed today, no change from the one prior. Procedures - Intubation Orotracheal Airway evaluation: Obese Mallampati Classification: Class 2 Medications: Succinylcholine, Ketamine Intubation method: Orotracheal Blade type: Lilian Blade size: 4 ETT size: 8.0 ETT secured at: Teeth ETT secured at (cm): 22 Breath Sounds after Intubation: Equal End tidal CO2 confirmed: Yes Ventilator settings: SIMV Tidal volume: 400 FiO2: 100 Respirations: 16 Pressure support: 12 PEEP: 8 Post Intubation Xray: Yes - Tube advanced 2 cm Intubation Complications: No complications Critical Care Note - Critical Care Note Total time excluding time spent on procedures (mins): 55 Discharge - Discharge Clinical Impression: Acute respiratory failure with hypoxia, Tobacco use disorder, severe, dependence, Acute on chronic systolic (congestive) heart failure Condition: Critical Disposition: ADMITTED INPATIENT Admitting Provider: Gisel ([employer] Operator) - [facility] Unit Admitted: ICU Referrals: YI SANCHEZ DO [Primary Care Provider] - Follow up as needed
[2019-02-08 03:44] LABS: ARTERIAL BLOOD BASE EXCESS -5.2 mmol/L; ARTERIAL BLOOD FIO2 100%; ARTERIAL BLOOD H2CO3 1.63 mmol/L (1.05-1.35); ARTERIAL BLOOD HCO3 22.5 mmol/L (20-24); ARTERIAL BLOOD O2 SATURATION 89.4 % (94-98); ARTERIAL BLOOD PH 7.24 (7.35-7.45); ARTERIAL BLOOD PO2 66.3 mmHg (80-100); ARTERIAL BLOOD TOTAL CO2 24.2 mmol/L (21-25)
[2019-02-08] MEDS ORDERED: FUROSEMIDE INJ/PF 40 MG/4 ML SDV IV ONE (04:07)
--- NOTE | 2019-02-08 04:29 | RADIOLOGY REPORT (SQ) ---
EXAM DESCRIPTION: XR CHEST 1 VIEW COMPLETED DATE/TME: 02/08/2019 03:15 CLINICAL HISTORY: 48 years, Female, intubated COMPARISON: 01/22/2019 chest NUMBER OF VIEWS: 2 TECHNIQUE: 2 AP views of the chest were obtained, one with time stamp 3:27 AM the other with time 3:33 AM LIMITATIONS: None. FINDINGS: Cardiomegaly. Median sternotomy wires with left-sided pacing device. Enteric tube partially visualized. Endotracheal tube best seen on the second submitted image, with the tip 6.4 cm above the bruna. No pneumothorax. Patchy airspace opacities in the right lung base. IMPRESSION: Cardiomegaly. Endotracheal and enteric tubes are in place. Postsurgical changes of the mediastinum. Airspace opacities right lung base. copyright 2010 [email or web address]- All Rights Reserved
[2019-02-08 04:30] LABS: ABSOLUTE LYMPHOCYTES (AUTO) 0.6 10^3/uL (0.5-4.7); ABSOLUTE MONOCYTES (AUTO) 0.4 10^3/uL (0.1-1.4); ABSOLUTE NEUT (AUTO) 7.1 10^3/uL (1.7-8.2); BASOPHILS % (AUTO) 0.6 % (0-2); EOSINOPHILS % (AUTO) 0.2 % (0-6); HEMATOCRIT 37.5 % (36.0-47.0); HEMOGLOBIN 11.5 g/dL (12.0-15.5); MEAN CORPUSCULAR HEMOGLOBIN 29.1 pg (27.0-33.4); MEAN CORPUSCULAR HGB CONC 30.8 g/dL (32.0-36.0); MONOCYTES % (AUTO) 5.1 % (3-13); PLATELET COUNT 229 10^3/uL (150-450); RED BLOOD COUNT 3.96 10^6/uL (3.72-5.28); RED CELL DISTRIBUTION WIDTH 19.9 % (11.5-14.0); SEGMENTED NEUTROPHILS % (AUTO) 87.1 % (42-78); TOTAL CELLS COUNTED % (AUTO) 100 %; WHITE BLOOD COUNT 8.2 10^3/uL (4.0-10.5)
[2019-02-08 04:36] LABS: MEAN CORPUSCULAR VOLUME 95 fl (80-97)
--- NOTE | 2019-02-08 04:43 | RADIOLOGY REPORT (SQ) ---
CLINICAL HISTORY: ADVANCEMENT OF ET TUBE COMPARISON: 02/08/2019. TECHNIQUE: XR CHEST 1 VIEW 02/08/2019 12:00 AM [facility] FINDINGS: The heart is enlarged following sternotomy. Left AICD is unchanged. There continue moderate patchy opacities throughout the right lung. There are probable pleural effusions. There is no pneumothorax. There are no acute osseous findings. Endotracheal tube has been advanced into the mid trachea. NG tube tip is in the stomach. IMPRESSION: Slight advancement of endotracheal tube. Otherwise no change.
--- NOTE | 2019-02-08 06:05 | CRITICAL CARE ADMISSION REPORT ---
[facility] Date:: 02/08/19 Time:: 05:00 Reason for ICU Reason:: Respiratory failure HPI: 48-year-old female known to this hospital with recent discharge on 01/24/2019. Significant medical history includes severe CHF (EF 20 to 25%), COPD with multiple recent intubations. Noted on the last admission to have acute on chronic CKD. She has a chronic marijuana habit which often exacerbates her COPD. Patient now presents to the emergency department with similar symptoms associated with fluid overload and COPD exacerbation. She was found to be very lethargic and short of breath and was intubated in the ED. History obtained from:: Medical documentation - Diagnosis/Plan (1) Acute on chronic systolic (congestive) heart failure Is this a current diagnosis for this admission?: Yes Plan: 1. Continue aggressive diuresis with Lasix as pressure tolerates. 2. She is status post AICD placement and is AV paced. Home medications include Lasix, metoprolol, and amiodarone. We will restart amiodarone but hold her metoprolol for now due to relatively lower BP. (2) Acute respiratory failure with hypoxia Is this a current diagnosis for this admission?: Yes Plan: Secondary to COPD exacerbation. Start duo nebs every 4. She received 1 dose of Solu-Medrol in the ED. Continue Solu-Medrol. Continue mechanical ventilation and wean as tolerated. I have kept her tidal volume at 450 due to peak airway pressures greater than 30. We can accept an SPO2 of 88%. We will start antibiotics due to the severity of her COPD exacerbation and recent MRSA pneumonia. (3) Tobacco use disorder, severe, dependence Is this a current diagnosis for this admission?: Yes Plan: Plan to consumer credit counselor patient when awakened extubated. - . Plan Summary: Keri Sow is an unfortunate 48-year-old woman with depression and marijuana and tobacco use which frequently exacerbates her COPD and we are CHF. Acutely, we plan to control her fluid intake and diurese her as her blood pressure and renal function tolerates. For treatment of her COPD, the plan is to continue IV steroids as well as bronchodilators. Patient will need behavioral health counseling if available prior to discharge and will need extensive support if she is to avoid further readmissions for her diseases. Past Medical History Cardiac Medical History: Reports: Atrial Fibrillation, Congestive Heart Failure, Coronary Artery Disease, Myocardial Infarction, Hyperlipidema, Hypertension Denies: DVT, Pulmonary Embolism Pulmonary Medical History: Reports: Bronchitis, Chronic Obstructive Pulmonary Disease (COPD), Intubation, Pneumonia, Respiratory Failure, Sleep Apnea Denies: Asthma Neurological Medical History: Denies: Seizures Endocrine Medical History: Denies: Diabetes Mellitus Type 1, Diabetes Mellitus Type 2, Hyperthyroidism, Hypothyroidism GI Medical History: Reports: Gastroesophageal Reflux Disease Denies: Cirrhosis, Crohn's Disease, Hepatitis, Hiatal Hernia, Ulcerative Colitis Musculoskeltal Medical History: Denies: Arthritis, Gout Skin Medical History: Denies: Eczema, Psoriasis Psychiatric Medical History: Reports: Depression, Substance Abuse Psychiatric History Note: Frequent marijuana smoker Hematology: Reports: Anemia - Chronic, Bleeding Tendencies - "On blood thinners" Infectious Medical History: Reports: Methicillin-Resistant Staph Aureus - And sputum on last admission. Past Surgical History Past Surgical History: Reports: Cardiac Catheterization - multiple, Section, Coronary Artery Bypass Graft - 2006, Coronary Stent - Multiple, Hysterectomy, Pacemaker - AICD, Tubal Ligation Denies: Mastectomy Social/Family History - Social History Social History Note: Current living duration is unknown. She does have a mother and daughter who are reachable by phone. Smoking Status: Unknown if Ever Smoked Frequency of Alcohol Use: Occasional Hx Recreational Drug Use: Yes Drugs: Marijuana Hx Prescription Drug Abuse: No - Medication/Allergies Home Medications: Alprazolam [Xanax 0.5 mg Tablet] 0.5 mg PO Q6HP PRN 10/04/18 Amiodarone HCl [Cordarone 200 mg Tablet] 400 mg PO DAILY 10/04/18 Apixaban [Eliquis 5 mg Tablet] 5 mg PO BID 10/04/18 Aspirin [Adult Low Dose Aspirin EC] 81 mg PO DAILY 10/04/18 Atorvastatin Calcium [Lipitor 80 mg Tablet] 80 mg PO DAILY 10/04/18 Buspirone HCl [Buspar 10 mg Tablet] 10 mg PO Q12 10/04/18 Famotidine [Pepcid 40 mg Tablet] 40 mg PO BID 10/04/18 Furosemide [Lasix 80 mg Tablet] 80 mg PO BID 10/04/18 Isosorbide Mononitrate [Imdur 60 mg Tablet.er] 60 mg PO DAILY 10/04/18 Melatonin 1 mg PO QHS 10/04/18 Metoprolol Succinate [Toprol Xl 50 mg Tab.sr] 50 mg PO DAILY 10/04/18 Nitroglycerin 0.4 mg SL Q5MP PRN 10/04/18 Paroxetine HCl [Paxil 20 mg Tablet] 20 mg PO DAILY 10/04/18 Sacubitril/Valsartan [Entresto 49 mg/51 mg Tablet] 1 tab PO Q12 10/04/18 Allergies/Adverse Reactions: egg [Egg] Allergy (Verified 10/04/18 00:18) hydrocodone [From Vicodin] Allergy (Verified 10/04/18 00:18) propoxyphene [From Darvocet-N] Allergy (Verified 10/04/18 00:18) amiodarone Adverse Reaction (Verified 10/04/18 00:18) Respiratory distress diphenhydramine HCl [From Benadryl] Adverse Reaction (Verified 10/04/18 00:18) chest pain, bigemeny rhythm Review of Systems ROS unobtainable: Due to endotracheal tube Physical Exam Vital Signs: Temp Pulse Resp BP Pulse Ox 104.5 F H 66 17 88/54 L 96 02/08/19 05:16 02/08/19 03:30 02/08/19 05:16 02/08/19 05:16 02/08/19 05:20 Intake & Output 02/06/19 02/07/19 02/08/19 06:59 06:59 06:59 Intake Total 4 Balance 4 General appearance: PRESENT: morbidly obese, severe distress Head exam: PRESENT: atraumatic, normocephalic Eye exam: PRESENT: PERRLA Ear exam: PRESENT: normal external ear exam Mouth exam: PRESENT: moist, neck supple Neck exam: ABSENT: carotid bruit, JVD, lymphadenopathy, tracheostomy Respiratory exam: PRESENT: rhonchi, wheezes - Intubated on mechanical ventilation. Cardiovascular exam: PRESENT: RRR - AV paced., +S1, +S2 Pulses: PRESENT: normal carotid pulses, normal radial pulses, +2 pedal pulses bilateral Vascular exam: PRESENT: normal capillary refill GI/Abdominal exam: PRESENT: hypoactive bowel sounds, soft. ABSENT: distended Extremities exam: PRESENT: pedal edema, +2 edema Musculoskeletal exam: PRESENT: normal inspection Neurological exam: ABSENT: awake - Sedated at time of exam. Tubes/Lines: PRESENT: Endotracheal Tube, Central Line, Arterial Catheter Laboratory/Radiographs Laboratory Results: 02/08/19 04:06 02/08/19 04:06 02/08/19 02/08/19 02/08/19 03:24 03:30 04:06 WBC Cancelled RBC Cancelled Hgb Cancelled Hct Cancelled MCV Cancelled MCH Cancelled MCHC Cancelled RDW Cancelled Plt Count Cancelled Seg Neutrophils % Cancelled Carbonic Acid 1.63 H HCO3/H2CO3 Ratio 13:1 ABG pH 7.24 L ABG pCO2 54.0 H ABG pO2 66.3 L ABG HCO3 22.5 ABG O2 Saturation 89.4 L ABG Base Excess -5.2 FiO2 100% Sodium Cancelled Potassium Cancelled Chloride Cancelled Carbon Dioxide Cancelled Anion Gap Cancelled BUN Cancelled Creatinine Cancelled Est GFR ( Amer) Cancelled Est GFR (Non-Af Amer) Cancelled Glucose Cancelled Calcium Cancelled Total Bilirubin Cancelled AST Cancelled Alkaline Phosphatase Cancelled Total Protein Cancelled Albumin Cancelled 02/08/19 04:06 WBC 8.2 RBC 3.96 Hgb 11.5 L Hct 37.5 MCV 95 D MCH 29.1 MCHC 30.8 L RDW 19.9 H Plt Count 229 Seg Neutrophils % 87.1 H Carbonic Acid HCO3/H2CO3 Ratio ABG pH ABG pCO2 ABG pO2 ABG HCO3 ABG O2 Saturation ABG Base Excess FiO2 Sodium Potassium Chloride Carbon Dioxide Anion Gap BUN Creatinine Est GFR ( Amer) Est GFR (Non-Af Amer) Glucose Calcium Total Bilirubin AST Alkaline Phosphatase Total Protein Albumin 02/08/19 02/08/19 04:06 04:06 Creatine Kinase Cancelled CK-MB (CK-2) Cancelled Troponin I Cancelled NT-Pro-B Natriuret Pep Cancelled Impressions: Chest X-Ray 02/08/19 03:15 IMPRESSION: Cardiomegaly. Endotracheal and enteric tubes are in place. Postsurgical changes of the mediastinum. Airspace opacities right lung base. copyright 2011 [employer]- All Rights Reserved All labs, radiographs, diagnostic studies and EKGs were personally reviewed: Yes In addition, reports of radiographic and diagnostic studies were read: Yes Critical Time Critical Time (minutes): 75 -: The care of a critically ill patient is dynamic. This note represents a static moment in the admission process. orders and treatments may be given simultaneously and urgentl, and time is not sales representative gas service of the treatment process. This patient requires Critical Care secondary to life threatening organ or limb dysfunction. Without the need for Critical Care services, the patient is at risk for increased mortality and morbidity.
--- NOTE | 2019-02-08 06:18 | Operative Report ---
Bedside Procedure - History of Present Illness Indication for Procedure: Medication administration including possible vas oactive meds. Date: 02/08/19 Provider: LUKAS CALLE - Central Line Right Internal jugular Time completed: 05:10 Consent obtained: Yes Central line pre-insertion: Sterile PPE donned, Chloraprep applied, Sterile drapes applied Central line size (Fr.): 16 Central line lumen type: Triple Anesthetic type: 1% Lidocaine mL's of anesthesia: 3 Ultrasound guided: Yes CM at insertion site: 15 Line secured with sutures: Yes Central line post-insertion: Blood return from lumens, Biopatch applied, Sutured, Sterile dressing applied, Position confirmed w/ CXR Number of attempts: 1 Complications: No
[2019-02-08 06:19] LABS: ALBUMIN 3.7 g/dL (3.5-5.0); ALKALINE PHOSPHATASE 151 U/L (38-126); ANION GAP 11 (5-19); ASPARTATE AMINO TRANSFERASE 91 U/L (14-36); BILIRUBIN,DIRECT 1.7 mg/dL (0.0-0.4); BILIRUBIN,TOTAL 2.8 mg/dL (0.2-1.3); BLOOD UREA NITROGEN 14 mg/dL (7-20); CALCIUM 8.4 mg/dL (8.4-10.2); CARBON DIOXIDE 31 mmol/L (22-30); CHLORIDE 104 mmol/L (98-107); CREATINE KINASE 33 U/L (30-135); POTASSIUM 3.8 mmol/L (3.6-5.0); TOTAL PROTEIN 6.9 g/dL (6.3-8.2)
--- NOTE | 2019-02-08 06:21 | Progress Note ---
Provider Note Provider Note: Procedure note Procedure: Radial A-line. Indication: Strict blood pressure control for hemodynamic instability. Consent was obtained. Patient was in the supine position. Danilo test was positive for collateral blood flow. Area was prepped and draped in a sterile fashion. Right radial artery was cannulated using sterile Seldinger technique. No complications. Good blood return. Line placement confirmed by good arterial waveform.
[2019-02-08 06:29] LABS: GLUCOSE 40 mg/dL (75-110)
[2019-02-08] MEDS ORDERED: DEXTROSE 50%-WATER 25 GM/50 ML DISP.SYRIN IV ONE (06:30)
[2019-02-08 06:38] LABS: NT PRO BNP 7610 pg/mL (<125); TROPONIN I 0.043 ng/mL
[2019-02-08 06:44] LABS: CREATINE KINASE MB < 0.22 ng/mL (<4.55)
--- NOTE | 2019-02-08 06:45 | EKG REPORT ---
SEVERITY:- ABNORMAL ECG - A-V DUAL-PACED RHYTHM WITH SOME INHIBITION : Confirmed by: Kirk Weeks MD 08-Feb-2019 06:45:03
--- NOTE | 2019-02-08 06:47 | EKG REPORT ---
SEVERITY:- ABNORMAL ECG - AFIB/FLUT AND V-PACED COMPLEXES ON DEMAND PACING LEFT BUNDLE BRANCH BLOCK AND OLD ANTERIOR MN : Confirmed by: Kirk Weeks MD 08-Feb-2019 06:47:09
[2019-02-08 07:03] LABS: PARTIAL THROMBOPLASTIN TIME 35.3 SEC (23.5-35.8)
[2019-02-08 07:04] LABS: PHOSPHORUS 5.1 mg/dL (2.5-4.5)
--- NOTE | 2019-02-08 08:15 | RADIOLOGY REPORT (SQ) ---
EXAM DESCRIPTION: CHEST SINGLE VIEW COMPLETED DATE/TIME: 02/08/2019 7:13 am REASON FOR STUDY: Central line placement COMPARISON: 02/08/2019 at 0418 hours. EXAM PARAMETERS: NUMBER OF VIEWS: One view. TECHNIQUE: Single frontal radiographic view of the chest acquired. RADIATION DOSE: NA LIMITATIONS: None. FINDINGS: LUNGS AND PLEURA: Diffuse airspace disease. Pleural effusions. No pneumothorax. MEDIASTINUM AND HILAR STRUCTURES: No masses. Contour normal. HEART AND VASCULAR STRUCTURES: Heart normal in size. Normal vasculature. BONES: No acute findings. HARDWARE: Central line with the tip at the level of the superior vena cava. Stable endotracheal tube and nasogastric tube. Sternotomy wires and defibrillator. OTHER: No other significant finding. IMPRESSION: NO PNEUMOTHORAX FOLLOWING CENTRAL LINE PLACEMENT. OTHERWISE NO CHANGE. TECHNICAL DOCUMENTATION: JOB ID: [id number] [employer]- All Rights Reserved Reading location - IP/workstation name: [email or web address]
[2019-02-08] MEDS ORDERED: SUCCINYLCHOLINE CHLORIDE INJ 200 MG/10 ML VIAL ONE ×2 (09:31→15:00)
[2019-02-08] MEDS ORDERED: ROCURONIUM BROMIDE INJ 50 MG/5 ML VIAL IV ONE (09:31)
[2019-02-08] MEDS: FUROSEMIDE INJ/PF 40 MG/4 ML SDV IV SCH ×2 (11:57→22:32)
[2019-02-08] MEDS: FAMOTIDINE INJ/PF 20 MG/2 ML SDV IV SCH ×2 (11:58→22:32)
[2019-02-08] MEDS ORDERED: NORMAL SALINE INJ/PF 0.9% 10 ML SDV IV PRN (12:31)
[2019-02-08] MEDS: METHYLPREDNISOLONE INJ 125 MG/2 ML SDV IV SCH ×2 (13:48→22:32)
[2019-02-08 14:07] LABS: APPEARANCE,URINE SLIGHTLY-CLOUDY; BILIRUBIN,URINE NEGATIVE (NEGATIVE); COLOR,URINE YELLOW; GLUCOSE, URINE NEGATIVE (NEGATIVE); KETONES,URINE NEGATIVE (NEGATIVE); LEUKOCYTE ESTERASE,URINE NEGATIVE (NEGATIVE); NITRITE,URINE NEGATIVE (NEGATIVE); PROTEIN,URINE NEGATIVE (NEGATIVE); URINE SPECIFIC GRAVITY 1.008; UROBILINOGEN,URINE NEGATIVE mg/dL (<2.0)
[2019-02-08] MEDS: IPRATROPIUM/ALBUTEROL 0.5-2.5 MG/3 ML AMPUL NEB PRN (16:34)
--- NOTE | 2019-02-08 17:07 | PDOC CRITICAL CARE PROG REPORT ---
General Date:: 02/08/19 ICU Day:: 2 Ventilator Day:: 2 Reason for ICU Addmission:: Respiratory failure - Medications: Medications reviewed and adjusted accordingly: Yes Physical Exam Vital Signs: Temp Pulse Resp BP Pulse Ox 99.7 F 66 17 129/69 H 92 02/08/19 16:00 02/08/19 16:00 02/08/19 16:00 02/08/19 16:00 02/08/19 16:00 Intake & Output 02/07/19 02/08/19 02/09/19 06:59 06:59 06:59 Intake Total 4 209 Output Total 0 730 Balance 4 -521 Weight 113 kg Weight/Height Weight 113 kg Height 5 ft 4 in General appearance: PRESENT: no acute distress, well-developed, well-nourished Head exam: PRESENT: atraumatic, normocephalic Eye exam: PRESENT: conjunctiva pink, EOMI, PERRLA. ABSENT: scleral icterus Ear exam: PRESENT: normal external ear exam Mouth exam: PRESENT: moist, tongue midline Neck exam: ABSENT: carotid bruit, JVD, lymphadenopathy, thyromegaly Respiratory exam: PRESENT: clear to auscultation renu. ABSENT: rales, rhonchi, wheezes Cardiovascular exam: PRESENT: RRR. ABSENT: diastolic murmur, rubs, systolic murmur Pulses: PRESENT: normal dorsalis pedis pul Vascular exam: PRESENT: normal capillary refill GI/Abdominal exam: PRESENT: normal bowel sounds, soft. ABSENT: distended, guarding, mass, organolmegaly, rebound, tenderness Rectal exam: PRESENT: deferred Extremities exam: PRESENT: full ROM. ABSENT: calf tenderness, clubbing, pedal edema Neurological exam: PRESENT: alert, awake, oriented to person, oriented to place, oriented to time, oriented to situation, CN II-XII grossly intact. ABSENT: motor sensory deficit Psychiatric exam: PRESENT: appropriate affect, normal mood. ABSENT: homicidal ideation, suicidal ideation Skin exam: PRESENT: dry, intact, warm. ABSENT: cyanosis, rash Tubes/Lines: PRESENT: Endotracheal Tube, Nasogastic Tube Laboratory/Radiographs Laboratory Results: 02/08/19 04:06 02/08/19 05:30 02/08/19 02/08/19 02/08/19 03:24 03:30 04:06 WBC Cancelled RBC Cancelled Hgb Cancelled Hct Cancelled MCV Cancelled MCH Cancelled MCHC Cancelled RDW Cancelled Plt Count Cancelled Seg Neutrophils % Cancelled Carbonic Acid 1.63 H HCO3/H2CO3 Ratio 13:1 ABG pH 7.24 L ABG pCO2 54.0 H ABG pO2 66.3 L ABG HCO3 22.5 ABG O2 Saturation 89.4 L ABG Base Excess -5.2 FiO2 100% Sodium Cancelled Potassium Cancelled Chloride Cancelled Carbon Dioxide Cancelled Anion Gap Cancelled BUN Cancelled Creatinine Cancelled Est GFR ( Amer) Cancelled Est GFR (Non-Af Amer) Cancelled Glucose Cancelled Calcium Cancelled Phosphorus Magnesium Total Bilirubin Cancelled AST Cancelled Alkaline Phosphatase Cancelled Ammonia Total Protein Cancelled Albumin Cancelled Triglycerides Urine Color Urine Appearance Urine pH Ur Specific [place] Urine Protein Urine Glucose (UA) Urine Ketones Urine Blood Urine Nitrite Ur Leukocyte Esterase Urine WBC (Auto) Urine RBC (Auto) 02/08/19 02/08/19 02/08/19 04:06 05:30 05:30 WBC 8.2 RBC 3.96 Hgb 11.5 L Hct 37.5 MCV 95 D MCH 29.1 MCHC 30.8 L RDW 19.9 H Plt Count 229 Seg Neutrophils % 87.1 H Carbonic Acid HCO3/H2CO3 Ratio ABG pH ABG pCO2 ABG pO2 ABG HCO3 ABG O2 Saturation ABG Base Excess FiO2 Sodium 145.7 H Potassium 3.8 Chloride 104 Carbon Dioxide 31 H Anion Gap 11 BUN 14 Creatinine 2.32 H Est GFR ( Amer) 27 L Est GFR (Non-Af Amer) Glucose 40 L* Calcium 8.4 Phosphorus 5.1 H Magnesium 2.2 Total Bilirubin 2.8 H AST 91 H Alkaline Phosphatase 151 H Ammonia Total Protein 6.9 Albumin 3.7 Triglycerides Urine Color Urine Appearance Urine pH Ur Specific [place] Urine Protein Urine Glucose (UA) Urine Ketones Urine Blood Urine Nitrite Ur Leukocyte Esterase Urine WBC (Auto) Urine RBC (Auto) 02/08/19 02/08/19 02/08/19 05:30 06:45 13:55 WBC RBC Hgb Hct MCV MCH MCHC RDW Plt Count Seg Neutrophils % Carbonic Acid HCO3/H2CO3 Ratio ABG pH ABG pCO2 ABG pO2 ABG HCO3 ABG O2 Saturation ABG Base Excess FiO2 Sodium Potassium Chloride Carbon Dioxide Anion Gap BUN Creatinine Est GFR ( Amer) Est GFR (Non-Af Amer) Glucose Calcium Phosphorus Magnesium Total Bilirubin AST Alkaline Phosphatase Ammonia 11.0 Total Protein Albumin Triglycerides 47 Urine Color YELLOW Urine Appearance SLIGHTLY-CLOUDY Urine pH 5.0 Ur Specific [place] 1.008 Urine Protein NEGATIVE Urine Glucose (UA) NEGATIVE Urine Ketones NEGATIVE Urine Blood SMALL H Urine Nitrite NEGATIVE Ur Leukocyte Esterase NEGATIVE Urine WBC (Auto) 3 Urine RBC (Auto) 1 02/08/19 02/08/19 02/08/19 04:06 04:06 05:30 Creatine Kinase Cancelled 33 CK-MB (CK-2) Cancelled Troponin I Cancelled NT-Pro-B Natriuret Pep Cancelled 02/08/19 05:45 Creatine Kinase CK-MB (CK-2) < 0.22 Troponin I 0.043 NT-Pro-B Natriuret Pep 7610 H Impressions: Chest X-Ray 02/08/19 03:15 IMPRESSION: Cardiomegaly. Endotracheal and enteric tubes are in place. Postsurgical changes of the mediastinum. Airspace opacities right lung base. copyright 2011 [employer]- All Rights Reserved All labs, radiographs, diagnostic studies and EKGs were personally reviewed: Yes In addition, reports of radiographic and diagnostic studies were read: Yes Assessment and Plan - Diagnosis (1) Acute respiratory failure with hypoxia Is this a current diagnosis for this admission?: Yes Plan: Continue to wean ventilator as able. Patient currently on SIMV witih PS but will transition to CPAP trial if able to wean sedation. (2) Acute on chronic systolic (congestive) heart failure Is this a current diagnosis for this admission?: Yes Plan: Lasix as tolerates for diuresis. (3) Tobacco use disorder, severe, dependence Is this a current diagnosis for this admission?: Yes Plan: Counseling when appropriate Critical Time Critical Time (minutes): 60 Level of Care: ICU Anticipated discharge: Home Within: within 72 hours -: 1. The care of a critical patient is a dynamic process. This note is a factory representative synopsis but static in nature. The timeframe for treatments given in order is not necessary the actual time these treatments may have been done. 2. This patient requires critical care secondary to ongoing requirements for therapy not offered or safe outside the critical care environment. Transfer to a lower level of care with altered life or limb morbidity and mortality. 3. Multidisciplinary rounds completed. 4. ABCDE bundle addressed.
[2019-02-09] MEDS: MIDAZOLAM HCL 50 MG/100 ML RTUINJ IV PRN ×2 (02:49→06:24)
[2019-02-09 04:22] LABS: ARTERIAL BLOOD BASE EXCESS 6.6 mmol/L; ARTERIAL BLOOD H2CO3 1.59 mmol/L (1.05-1.35); ARTERIAL BLOOD HCO3 32.4 mmol/L (20-24); ARTERIAL BLOOD PCO2 52.9 mmHg (35-45); ARTERIAL BLOOD PH 7.41 (7.35-7.45); ARTERIAL BLOOD PO2 63.5 mmHg (80-100)
[2019-02-09 04:23] LABS: ARTERIAL BLOOD FIO2 40%
[2019-02-09 04:39] LABS: HEMATOCRIT 29.4 % (36.0-47.0); HEMOGLOBIN 9.5 g/dL (12.0-15.5); MEAN CORPUSCULAR HEMOGLOBIN 30.2 pg (27.0-33.4); MEAN CORPUSCULAR HGB CONC 32.4 g/dL (32.0-36.0); MEAN CORPUSCULAR VOLUME 93 fl (80-97); PLATELET COUNT 173 10^3/uL (150-450); RED BLOOD COUNT 3.16 10^6/uL (3.72-5.28); RED CELL DISTRIBUTION WIDTH 19.7 % (11.5-14.0); WHITE BLOOD COUNT 6.8 10^3/uL (4.0-10.5)
[2019-02-09 04:40] LABS: ANION GAP 9 (5-19); BLOOD UREA NITROGEN 23 mg/dL (7-20); CALCIUM 8.3 mg/dL (8.4-10.2); CARBON DIOXIDE 32 mmol/L (22-30); CHLORIDE 102 mmol/L (98-107); GLUCOSE 113 mg/dL (75-110); PHOSPHORUS 4.3 mg/dL (2.5-4.5); POTASSIUM 3.7 mmol/L (3.6-5.0)
[2019-02-09 05:10] LABS: ABSOLUTE LYMPHOCYTES# (MANUAL) 0.1 10^3/uL (0.5-4.7); ABSOLUTE MONOCYTES # (MANUAL) 0.3 10^3/uL (0.1-1.4); BASOPHILS % (MANUAL) 0 % (0-2); EOSINOPHILS % (MANUAL) 0 % (0-6); LYMPHOCYTES % (MANUAL) 1 % (13-45); MONOCYTES % (MANUAL) 4 % (3-13); SEGMENTED NEUTROPHILS % (MAN) 95 % (42-78); TOTAL CELLS COUNTED 100
[2019-02-09 05:13] LABS: ANISOCYTOSIS 2+; OVALOCYTES SLIGHT; PLATELET COMMENT ADEQUATE; POIKILOCYTOSIS SLIGHT; SCHISTOCYTES SLIGHT; TOXIC GRANULATION SLIGHT; TOXIC VACUOLATION PRESENT
[2019-02-09] MEDS: METHYLPREDNISOLONE INJ 125 MG/2 ML SDV IV SCH ×3 (06:18→21:41)
[2019-02-09] MEDS: DEXMEDETOMIDINE IN 0.9 % NACL 400 MCG/100 ML RTUPB IV PRN ×2 (08:11→15:05)
[2019-02-09] MEDS: IPRATROPIUM/ALBUTEROL 0.5-2.5 MG/3 ML AMPUL NEB PRN (08:53)
[2019-02-09] MEDS: FAMOTIDINE INJ/PF 20 MG/2 ML SDV IV SCH ×2 (09:34→21:42)
[2019-02-09] MEDS: FUROSEMIDE INJ/PF 40 MG/4 ML SDV IV SCH ×2 (09:34→21:41)
--- NOTE | 2019-02-09 11:17 | PDOC CRITICAL CARE PROG REPORT ---
General Date:: 02/09/19 ICU Day:: 2 Ventilator Day:: 2 Resuscitation Status: Full Code Reason for ICU Addmission:: Respiratory failure - Medications: Medications reviewed and adjusted accordingly: Yes Physical Exam Vital Signs: Temp Pulse Resp BP Pulse Ox 99.7 F 60 15 135/81 H 100 02/09/19 08:00 02/09/19 08:00 02/09/19 08:00 02/09/19 08:00 02/09/19 08:54 Intake & Output 02/08/19 02/09/19 02/10/19 06:59 06:59 06:59 Intake Total 4 598 100 Output Total 0 1860 730 Balance 4 -6102 -630 Weight 113 kg 111.8 kg Weight/Height Weight 111.8 kg Height 5 ft 4 in General appearance: PRESENT: no acute distress, well-developed, well-nourished Head exam: PRESENT: atraumatic, normocephalic Eye exam: PRESENT: conjunctiva pink, EOMI, PERRLA. ABSENT: scleral icterus Ear exam: PRESENT: normal external ear exam Mouth exam: PRESENT: moist, tongue midline Neck exam: ABSENT: carotid bruit, JVD, lymphadenopathy, thyromegaly Respiratory exam: PRESENT: clear to auscultation renu. ABSENT: rales, rhonchi, wheezes Cardiovascular exam: PRESENT: RRR. ABSENT: rubs Pulses: PRESENT: normal dorsalis pedis pul Vascular exam: PRESENT: normal capillary refill GI/Abdominal exam: PRESENT: normal bowel sounds, soft. ABSENT: distended, guarding, mass, organolmegaly, rebound, tenderness Rectal exam: PRESENT: deferred Extremities exam: PRESENT: full ROM. ABSENT: calf tenderness, clubbing, pedal edema Musculoskeletal exam: PRESENT: full ROM Neurological exam: PRESENT: alert, awake, CN II-XII grossly intact. ABSENT: motor sensory deficit Psychiatric exam: ABSENT: homicidal ideation, suicidal ideation Skin exam: PRESENT: dry, intact, warm. ABSENT: cyanosis, rash Tubes/Lines: PRESENT: Endotracheal Tube, Nasogastic Tube Laboratory/Radiographs Laboratory Results: 02/09/19 04:03 02/09/19 04:03 02/08/19 02/08/19 02/09/19 05:30 13:55 04:03 WBC 6.8 RBC 3.16 L Hgb 9.5 L Hct 29.4 L MCV 93 MCH 30.2 MCHC 32.4 RDW 19.7 H Plt Count 173 Seg Neutrophils % Not Reportable Carbonic Acid HCO3/H2CO3 Ratio ABG pH ABG pCO2 ABG pO2 ABG HCO3 ABG O2 Saturation ABG Base Excess FiO2 Sodium Potassium Chloride Carbon Dioxide Anion Gap BUN Creatinine Est GFR ( Amer) Glucose Calcium Phosphorus Magnesium Triglycerides 47 Urine Color YELLOW Urine Appearance SLIGHTLY-CLOUDY Urine pH 5.0 Ur Specific [place] 1.008 Urine Protein NEGATIVE Urine Glucose (UA) NEGATIVE Urine Ketones NEGATIVE Urine Blood SMALL H Urine Nitrite NEGATIVE Ur Leukocyte Esterase NEGATIVE Urine WBC (Auto) 3 Urine RBC (Auto) 1 02/09/19 02/09/19 04:03 04:03 WBC RBC Hgb Hct MCV MCH MCHC RDW Plt Count Seg Neutrophils % Carbonic Acid 1.59 H HCO3/H2CO3 Ratio 20:1 ABG pH 7.41 ABG pCO2 52.9 H ABG pO2 63.5 L ABG HCO3 32.4 H ABG O2 Saturation 92.0 L ABG Base Excess 6.6 FiO2 40% Sodium 142.8 Potassium 3.7 Chloride 102 Carbon Dioxide 32 H Anion Gap 9 BUN 23 H Creatinine 1.77 H Est GFR ( Amer) 37 L Glucose 113 H Calcium 8.3 L Phosphorus 4.3 Magnesium 2.3 Triglycerides Urine Color Urine Appearance Urine pH Ur Specific [place] Urine Protein Urine Glucose (UA) Urine Ketones Urine Blood Urine Nitrite Ur Leukocyte Esterase Urine WBC (Auto) Urine RBC (Auto) 02/08/19 02/08/19 02/08/19 04:06 04:06 05:30 Creatine Kinase Cancelled 33 CK-MB (CK-2) Cancelled Troponin I Cancelled NT-Pro-B Natriuret Pep Cancelled 02/08/19 05:45 Creatine Kinase CK-MB (CK-2) < 0.22 Troponin I 0.043 NT-Pro-B Natriuret Pep 7610 H Impressions: Chest X-Ray 02/08/19 03:15 IMPRESSION: Cardiomegaly. Endotracheal and enteric tubes are in place. Postsurgical changes of the mediastinum. Airspace opacities right lung base. copyright 2010 [employer]- All Rights Reserved Assessment and Plan - Diagnosis (1) Acute respiratory failure with hypoxia Is this a current diagnosis for this admission?: Yes Plan: Continue to wean ventilator as able. Patient currently on SIMV witih PS but will transition to CPAP trial if able to wean sedation. (2) Acute on chronic systolic (congestive) heart failure Is this a current diagnosis for this admission?: Yes Plan: Lasix as tolerates for diuresis. (3) Tobacco use disorder, severe, dependence Is this a current diagnosis for this admission?: Yes Plan: Counseling when appropriate Plan Summary: Transitioning patient from Versed to Precedex today. Will hopefully be able to wean vent and extubate in the next 12-24 hours. Critical Time Critical Time (minutes): 60 Level of Care: ICU Anticipated discharge: Home Within: within 72 hours -: 1. The care of a critical patient is a dynamic process. This note is a patient account representative synopsis but static in nature. The timeframe for treatments given in order is not necessary the actual time these treatments may have been done. 2. This patient requires critical care secondary to ongoing requirements for therapy not offered or safe outside the critical care environment. Transfer to a lower level of care with altered life or limb morbidity and mortality. 3. Multidisciplinary rounds completed. 4. ABCDE bundle addressed.
[2019-02-09] MEDS: HEPARIN SOD (PORCINE) 5,000 UNIT/ML 1 ML VIAL SUBCUT SCH ×2 (13:42→21:41)
[2019-02-10] MEDS: DEXMEDETOMIDINE IN 0.9 % NACL 400 MCG/100 ML RTUPB IV PRN (01:54)
[2019-02-10 03:59] LABS: ARTERIAL BLOOD BASE EXCESS 7.8 mmol/L; ARTERIAL BLOOD FIO2 40%; ARTERIAL BLOOD H2CO3 1.35 mmol/L (1.05-1.35); ARTERIAL BLOOD HCO3 32.3 mmol/L (20-24); ARTERIAL BLOOD O2 SATURATION 92.4 % (94-98); ARTERIAL BLOOD PCO2 44.8 mmHg (35-45); ARTERIAL BLOOD PH 7.48 (7.35-7.45); ARTERIAL BLOOD PO2 60.1 mmHg (80-100); ARTERIAL BLOOD TOTAL CO2 33.7 mmol/L (21-25); INTERNATIONAL RATION (INR) 1.51; PROTHROMBIN TIME 18.4 SEC (11.4-15.4)
[2019-02-10 04:00] LABS: HEMATOCRIT 33.4 % (36.0-47.0); HEMOGLOBIN 10.6 g/dL (12.0-15.5); MEAN CORPUSCULAR HGB CONC 31.7 g/dL (32.0-36.0); MEAN CORPUSCULAR VOLUME 92 fl (80-97); PLATELET COUNT 174 10^3/uL (150-450); RED BLOOD COUNT 3.65 10^6/uL (3.72-5.28); RED CELL DISTRIBUTION WIDTH 19.8 % (11.5-14.0); WHITE BLOOD COUNT 5.5 10^3/uL (4.0-10.5)
[2019-02-10 04:06] LABS: ANION GAP 7 (5-19); BLOOD UREA NITROGEN 29 mg/dL (7-20); CALCIUM 8.3 mg/dL (8.4-10.2); CARBON DIOXIDE 35 mmol/L (22-30); CHLORIDE 102 mmol/L (98-107); GLUCOSE 167 mg/dL (75-110); PHOSPHORUS 3.7 mg/dL (2.5-4.5); POTASSIUM 3.6 mmol/L (3.6-5.0)
[2019-02-10 04:21] LABS: ABSOLUTE LYMPHOCYTES# (MANUAL) 0.2 10^3/uL (0.5-4.7); ABSOLUTE MONOCYTES # (MANUAL) 0.1 10^3/uL (0.1-1.4); ANISOCYTOSIS 2+; BAND NEUTROPHILS % (MANUAL) 4 % (3-5); BASOPHILS % (MANUAL) 0 % (0-2); EOSINOPHILS % (MANUAL) 0 % (0-6); HYPOCHROMASIA SLIGHT; LYMPHOCYTES % (MANUAL) 3 % (13-45); MONOCYTES % (MANUAL) 2 % (3-13); SEGMENTED NEUTROPHILS % (MAN) 91 % (42-78); TOTAL CELLS COUNTED 100
[2019-02-10 04:22] LABS: PLATELET COMMENT ADEQUATE
[2019-02-10] MEDS: HEPARIN SOD (PORCINE) 5,000 UNIT/ML 1 ML VIAL SUBCUT SCH ×3 (05:41→21:54)
[2019-02-10] MEDS: METHYLPREDNISOLONE INJ 125 MG/2 ML SDV IV SCH ×3 (05:41→21:54)
--- NOTE | 2019-02-10 08:41 | RADIOLOGY REPORT (SQ) ---
EXAM DESCRIPTION: CHEST SINGLE VIEW COMPLETED DATE/TIME: 02/10/2019 6:23 am REASON FOR STUDY: respiratory failure COMPARISON: 02/08/2019 FINDINGS: Single view AP portable semi-upright Endotracheal, nasogastric, right IJ lines and tubes appear to be intact. Extensive overlying monitor lead artifacts limit. Pacer in place. Patchy bilateral infiltrates and vascular congestion. Aeration appears to be improving, however. No pneumothorax. TECHNICAL DOCUMENTATION: JOB ID: [id number] Reading location - IP/workstation name: [email or web address]
[2019-02-10] MEDS: FUROSEMIDE INJ/PF 40 MG/4 ML SDV IV SCH ×2 (09:30→21:54)
[2019-02-10] MEDS: FAMOTIDINE INJ/PF 20 MG/2 ML SDV IV SCH ×2 (09:30→21:54)
--- NOTE | 2019-02-10 10:09 | RADIOLOGY REPORT (SQ) ---
EXAM DESCRIPTION: CHEST SINGLE VIEW COMPLETED DATE/TIME: 02/10/2019 9:45 am REASON FOR STUDY: Intubated with increasing vent requirements COMPARISON: 02/10/2019. FINDINGS: Single view AP portable upright, 2 images obtained. Endotracheal tube, nasogastric tube appropriate. Pacer and right IJ line remain in place. Cardiomegaly with mild vascular congestion. Minimal patchy airspace disease but aeration looks impro daina overall. No pneumothorax. TECHNICAL DOCUMENTATION: JOB ID: [id number] Reading location - IP/workstation name: [email or web address]
[2019-02-10] MEDS ORDERED: FUROSEMIDE INJ/PF 40 MG/4 ML SDV IV ONE (13:49)
--- NOTE | 2019-02-10 13:54 | PDOC CRITICAL CARE PROG REPORT ---
General Date:: 02/10/19 ICU Day:: 3 Ventilator Day:: 3 Resuscitation Status: Full Code Events in the past 12 to 24 Hours:: Continued to wean sedation and patient now more arousable. Reason for ICU Addmission:: Respiratory failure - Medications: Medications reviewed and adjusted accordingly: Yes Physical Exam Vital Signs: Temp Pulse Resp BP Pulse Ox 98.2 F 60 16 136/70 H 97 02/10/19 10:00 02/10/19 10:00 02/10/19 10:00 02/10/19 10:00 02/10/19 11:11 Intake & Output 02/09/19 02/10/19 02/11/19 06:59 06:59 06:59 Intake Total 598 263 Output Total 1860 2905 300 Balance -1262 -2642 -300 Weight 111.8 kg 112.6 kg Weight/Height Weight 112.6 kg Height 5 ft 4 in General appearance: PRESENT: no acute distress, obese Head exam: PRESENT: atraumatic, normocephalic Eye exam: PRESENT: conjunctiva pink, EOMI, PERRLA. ABSENT: scleral icterus Ear exam: PRESENT: normal external ear exam Mouth exam: PRESENT: moist, tongue midline Neck exam: ABSENT: carotid bruit, JVD, lymphadenopathy, thyromegaly Respiratory exam: PRESENT: crackles, wheezes Cardiovascular exam: PRESENT: bradycardia, other - active pacing at 60 BPM Vascular exam: PRESENT: normal capillary refill GI/Abdominal exam: PRESENT: normal bowel sounds, soft. ABSENT: distended, guarding, mass, organolmegaly, rebound, tenderness Rectal exam: PRESENT: deferred Extremities exam: PRESENT: full ROM. ABSENT: calf tenderness, clubbing, pedal edema Neurological exam: PRESENT: awake, CN II-XII grossly intact Tubes/Lines: PRESENT: Endotracheal Tube, Nasogastic Tube Laboratory/Radiographs Laboratory Results: 02/10/19 03:25 02/10/19 03:25 02/10/19 02/10/19 02/10/19 03:25 03:25 03:25 WBC 5.5 RBC 3.65 L Hgb 10.6 L Hct 33.4 L MCV 92 MCH 29.0 MCHC 31.7 L RDW 19.8 H Plt Count 174 Seg Neutrophils % Not Reportable Carbonic Acid 1.35 HCO3/H2CO3 Ratio 23:1 ABG pH 7.48 H ABG pCO2 44.8 ABG pO2 60.1 L ABG HCO3 32.3 H ABG O2 Saturation 92.4 L ABG Base Excess 7.8 FiO2 40% Sodium 144.3 Potassium 3.6 Chloride 102 Carbon Dioxide 35 H Anion Gap 7 BUN 29 H Creatinine 1.53 H Est GFR ( Amer) 44 L Glucose 167 H Calcium 8.3 L Phosphorus 3.7 Magnesium 2.4 H 02/08/19 05:30 Tracheal Aspirate Gram Stain - Final 02/08/19 13:55 Jones Catheter Urine Culture - Final NO GROWTH 2 DAYS 02/08/19 02/08/19 02/08/19 04:06 04:06 05:30 Creatine Kinase Cancelled 33 CK-MB (CK-2) Cancelled Troponin I Cancelled NT-Pro-B Natriuret Pep Cancelled 02/08/19 05:45 Creatine Kinase CK-MB (CK-2) < 0.22 Troponin I 0.043 NT-Pro-B Natriuret Pep 7610 H All labs, radiographs, diagnostic studies and EKGs were personally reviewed: Yes In addition, reports of radiographic and diagnostic studies were read: Yes Assessment and Plan - Diagnosis (1) Acute respiratory failure with hypoxia Is this a current diagnosis for this admission?: Yes Plan: Continue to wean ventilator as able. Patient currently on SIMV witih PS but will transition to CPAP trial if able to wean sedation. (2) Acute on chronic systolic (congestive) heart failure Is this a current diagnosis for this admission?: Yes Plan: Lasix as tolerates for diuresis. Consulted cardiology today for new medication recommendations. Recs pending. (3) Tobacco use disorder, severe, dependence Is this a current diagnosis for this admission?: Yes Plan: Counseling when appropriate Critical Time Critical Time (minutes): 60 Level of Care: ICU Anticipated discharge: Home -: 1. The care of a critical patient is a dynamic process. 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 The timeframe for treatments gi haylee in order is not necessary the actual time these treatments may have been done. 2. This patient requires critical care secondary to ongoing requirements for therapy not offered or safe outside the critical care environment. Transfer to a lower level of care with altered life or limb morbidity and mortality. 3. Multidisciplinary rounds completed. 4. ABCDE bundle addressed.
[2019-02-10] MEDS ORDERED: LORAZEPAM INJ 2 MG/1 ML VIAL ONE (14:16)
[2019-02-10] MEDS ORDERED: LORAZEPAM INJ 2 MG/1 ML VIAL IV ONE (14:19)
--- NOTE | 2019-02-10 16:29 | RADIOLOGY REPORT (SQ) ---
EXAM DESCRIPTION: CT CHEST WITHOUT COMPLETED DATE/TIME: 02/10/2019 4:07 pm REASON FOR STUDY: Amiodarone toxicity -HI-RES COMPARISON: 10/09/2018 TECHNIQUE: CT scan performed of the chest without intravenous contrast. Images reviewed with lung, soft tissue and bone windows. Reconstructed coronal and sagittal MPR images reviewed. All images st ored on PACS. All CT scanners at this facility use dose modulation, iterative reconstruction, and/or weight based d osing when appropriate to reduce radiation dose to as low as reasonably achievable (ALARA). [facility]: Dose Right [facility]: CareDose [facility]: Dose Right [facility]: Teradose 4D [facility]: Smart CURRENT RADIATION DOSE: CT Rad equipment meets quality standard of care and radiation dose reduction techniq ues were employed. CTDIvol: 4.6 mGy. DLP: 137 mGy-cm. mGy. LIMITATIONS: No technical limitations. FINDINGS: LUNGS AND PLEURA: No pneumothorax. No pleural effusions. Bibasilar consolidation in both lower lobes. Slightly increased interstitial thickening, basilar predominance. Scattered pulmonary cysts and ground-glass opacities are again noted. HILAR AND MEDIASTINAL STRUCTURES: Similar nodes. No obvious aneurysm. HEART AND VASCULAR STRUCTURES: Cardiomegaly. No aneurysm. No pericardial effusion. UPPER ABDOMEN: No acute findings. Limited exam. THYROID AND OTHER SOFT TISSUES: No masses. No adenopathy. BONES: No acute finding. HARDWARE: Endotracheal tube tip overlies the lower 3rd of the trachea. NG tube is present. Prior CA BG. Cardiac defibrillator. OTHER: No other significant findings. IMPRESSION: No pneumothorax. No pleural effusions. Bibasilar consolidation in both lower lobes. Sli ghtly increased interstitial thickening, basilar predominance. Scattered pulmonary cysts and ground- glass opacities are again noted. Tubes and lines in expected positions. TECHNICAL DOCUMENTATION: JOB ID: [id number] Quality ID # [id number]: Final reports with documentation of one or more dose reduction techniques (e.g., Au tomated exposure control, adjustment of the mA and/or kV according to patient size, use of iterative reconstruction technique) 2010 [employer]- All Rights Reserved Reading location - IP/workstation name: [email or web address]
[2019-02-10] MEDS: AMINO AC/PROTEIN HYDR/WHEY PRO 11 GM/45 ML PKT NG SCH (17:45)
--- NOTE | 2019-02-10 22:12 | PDOC CONSULTATION ---
Consultation-Blank Consultation: CARDIOLOGY CONSULTATION by Dr. Griselda Martin on 02/10/2019.Patient seen at 1:30 PM. 60 minutes spent on this patient with more than 50% time spent on direct patient care. REASON FOR CONSULTATION: Acute on chronic congestive heart failure. CONSULT REQUESTING PHYSICIAN: Dr. Moy Valladares DO. HISTORY OF PRESENT ILLNESS: Since patient intubated and sedated unable to obtain history from patient. Chart reviewed. Patient was admitted with increasing shortness of breath and found to be in acute respiratory failure and was intubated in the emergency room and transferred to the ICU. The patient is originally used marijuana which exacerbated her COPD. The patient is being treated for acute on chronic systolic heart failure and acute exacerbation of COPD. The patient was seen by me in June 2018 at which time there was high suspicion for amiodarone pulmonary toxicity, and this diagnosis was supported by CT scan scan hydrated high resolution without contrast. The patient's amiodarone was stopped. But subsequently the patient was put back on amiodarone. The current patient's chest x-ray not only is conducive with the CHF and probably right lower lobe pneumonia and also the suspicion of early recurrence of amiodarone pulmonary toxicity. My interpretation of the CT scan of the chest high-resolution done without contrast is suggestive of amiodarone toxicity along with possibly an element of heart failure and also right lower lobe consolidation/pneumonia. There is no recurrence of paroxysmal atrial fibrillation. There is no mention of tachycardia. Since patient is intubated and sedated and unable to find out if there was recent AICD firing. Past Medical History Cardiac Medical History: Reports: Congestive Heart Failure, Coronary Artery Disease, Myocardial Infarction, Hyperlipidema, Hypertension. She has a history of ventricular tachycardia, and paroxysmal atrial fibrillation, and is on amiodarone for this, and also Eliquis, and also has not AICD placed. Pulmonary Medical History: Reports: Chronic Obstructive Pulmonary Disease (COPD). History of sleep apnea, but the patient does not use CPAP at home. Although she denies asthma she has been having it. Denies: Asthma Neurological Medical History: Denies: Ischemic CVA, Seizures Endocrine Medical History: Reports: Obesity Denies: Diabetes Mellitus Type 2, Hypothyroidism GI Medical History: Reports: Gastroesophageal Reflux Disease Denies: Hepatitis, Hiatal Hernia Psychiatric Medical History: Reports: Depression. 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 GENITOURINARY: She has a history of chronic kidney disease stage III. Hematology: Denies: Anemia, Sickle Cell Disease Past Surgical History Past Surgical History: Reports: Cardiac Catheterization - multiple stents, Section, Coronary Artery Bypass Graft - 2006, Hysterectomy, Pacemaker - AICD, Tubal Ligation Social History Information Source: Chart. Lives with: Family Smoking Status: She has again started smoking as per discharge. Number of Years Smokin Frequency of Alcohol Use: Occasional Hx Recreational Drug Use: Yes Drugs: Marijuana Hx Prescription Drug Abuse: No - Advance Directive Resuscitation Status: Full Code. The patient's daughter is a surrogate healthcare decision maker. Family History Family History: Positive coronary artery disease, hypertension and heart failure. Medication/Allergy Home Medications: Amiodarone HCl [Cordarone 200 mg Tablet] 200 mg PO BID 05/18/18 Apixaban [Eliquis 5 mg Tablet] 5 mg PO Q12 05/18/18 Atorvastatin Calcium [Lipitor 80 mg Tablet] 80 mg PO QHS 05/18/18 Buspirone HCl [Buspar 10 mg Tablet] 10 mg PO Q12 05/18/18 Famotidine [Pepcid 40 mg Tablet] 40 mg PO BID 05/18/18 Isosorbide Mononitrate [Imdur 60 mg Tablet.er] 60 mg PO DAILY 05/18/18 Melatonin [Melatonin 1 mg Tablet] 1 mg PO QHS 05/18/18 Metoprolol Succinate [Toprol Xl 50 mg Tab.sr] 50 mg PO DAILY 05/18/18 Paroxetine HCl [Paxil 20 mg Tablet] 20 mg PO DAILY 05/18/18 Furosemide [Lasix 80 mg Tablet] 80 mg PO BID 30 Days #60 tablet 05/19/18 Aspirin [Aspirin 81 mg Chewable Tablet] 81 mg PO DAILY 07/09/18 Sacubitril/Valsartan [Entresto 49 mg/51 mg Tablet] 1 tab PO Q12 07/09/18 Salmeterol Xinafoate [Serevent Diskus 50 Mcg/Dose 28 Dose/Diskus] 50 mcg IH Q12 #1 disk 07/12/18 Tiotropium [place] [Spiriva Handihaler 5 Cap/Kit (18 Mcg/Cap)] 1 cap IH DAILY #1 kit 07/12/18 Allergies/Adverse Reactions: egg [Egg] Allergy (Verified 07/09/18 06:16) hydrocodone [From Vicodin] Allergy (Verified 07/09/18 06:16)diphenhydramine HCl,chest pain, bigemeny rhythm. Also patient has amiodarone pulmonary toxicity. Review of Systems: Not obtainable since the patient is intubated and sedated. Current Medications Generic Name Dose Route Start Last Admin Trade Name Freq PRN Reason Stop Dose Admin Acetaminophen 325 mg 02/08/19 12:18 Tylenol 325 Mg Supp FL 03/10/19 12:17 Q4HP PRN FOR TEMP GREATER THAN Albuterol/Ipratropium 3 ml 02/08/19 06:12 02/09/19 08:53 Duoneb 3 Ml Ampul NEB 03/10/19 06:11 3 ml [id number] PRN Administration SHORTNESS OF BREATH Amino Acid Protein 45 ml 02/10/19 16:00 02/10/19 17:45 Prosource Tf 11 Gm Protein/45 Ml Pkt NG 03/12/19 15:59 45 ml DAILY WILY Administration Famotidine 20 mg 02/08/19 10:00 02/10/19 21:54 Pepcid Inj/Pf 20 Mg/2 Ml Sdv IV 03/10/19 09:59 20 mg Q12 WILY Administration Furosemide 40 mg 02/08/19 10:00 02/10/19 21:54 Lasix Inj/Pf 40 Mg/4 Ml Sdv IV 03/10/19 09:59 40 mg Q12 WILY Administration Heparin Sodium (Porcine) 30 unit 02/08/19 14:00 02/10/19 21:53 Heparin Flush 10 Unit/Ml 5 Ml Disp.Syrg IV 03/10/19 13:59 30 unit Q8 WILY Administration Heparin Sodium (Porcine) 30 unit 02/08/19 12:31 02/10/19 21:53 Heparin Flush 10 Unit/Ml 5 Ml Disp.Syrg IV 03/10/19 12:30 30 unit .AFTER EACH USE PRN Administration AFTER EACH INTERMITTENT USE Heparin Sodium (Porcine) 5,000 unit 02/09/19 14:00 02/10/19 21:54 Heparin Inj 5,000 Units/Ml 1 Ml Vial SUBCUT 03/11/19 13:59 5,000 unit Q8 WILY Administration Nitroglycerin/Dextrose 50 mg in 250 mls @ 0 mls/hr 02/08/19 03:18 02/08/19 03:02 Ntg Rtu 50 Mg/D5w 250 Ml Iv Premix Bottle IV 03/10/19 03:17 Infused CONTINUOUS PRN Titration THIS MED IS NOT "PRN" Protocol Titrate Dexmedetomidine/Sodium Chloride 400 mcg in 100 mls @ 0 mls/hr 02/09/19 07:30 02/10/19 05:41 Precedex 400 Mcg/Ns 100 Ml Iv Premix IV 03/11/19 07:29 0 mcg/kg/hr CONTINUOUS PRN 0 mls/hr THIS MED IS NOT "PRN" Titration Protocol Per Protocol Methylprednisolone Sodium Succinate 125 mg 02/08/19 14:00 02/10/19 21:54 Solu-Medrol Inj/Pf 125 Mg/2 Ml Sdv IV 03/10/19 13:59 125 mg Q8 WILY Administration Sodium Chloride 10 ml 02/08/19 12:31 Nacl 0.9% Inj/Pf 10 Ml Sdv IV 03/10/19 12:30 .AFTER EACH USE PRN AFTER EACH INTERMITTENT USE Discontinued Medications Generic Name Dose Route Start Last Admin Trade Name Freq PRN Reason Stop Dose Admin Albuterol/Ipratropium Confirm 02/08/19 02:45 02/08/19 04:41 Duoneb 3 Ml Ampul Administered 02/08/19 02:46 3 ml Dose Administration 3 ml NEB .STK-MED ONE Albuterol/Ipratropium 9 ml 02/08/19 04:06 02/08/19 04:41 Duoneb 3 Ml Ampul NEB 02/08/19 04:07 3 ml NOW ONE Administration Albuterol/Ipratropium Confirm 02/08/19 04:06 02/08/19 04:42 Duoneb 3 Ml Ampul Administered 02/08/19 04:07 3 ml Dose Administration 3 ml NEB .STK-MED ONE Dextrose Confirm 02/08/19 06:30 02/08/19 06:39 Dextrose Inj 50% Syringe (25 Gm/50 Ml) Administered 02/08/19 06:31 25 gm Dose Administration 25 gm IV .STK-MED ONE Furosemide 40 mg 02/08/19 04:07 02/08/19 06:14 Lasix Inj/Pf 40 Mg/4 Ml Sdv IV 02/08/19 04:08 Not Given NOW ONE Furosemide 40 mg 02/10/19 13:49 02/10/19 14:48 Lasix Inj/Pf 40 Mg/4 Ml Sdv IV 02/10/19 13:50 40 mg NOW ONE Administration Nitroglycerin/Dextrose Confirm 02/08/19 02:50 02/08/19 04:44 Ntg Rtu 50 Mg/D5w 250 Ml Iv Premix Bottle Administered 02/08/19 02:51 Not Given Dose 50 mg in 250 mls @ ud IV .STK-MED ONE Midazolam HCl 50 mg in 100 mls @ 0 mls/hr 02/08/19 02:58 02/09/19 10:07 Versed Rtu 50 Mg/100 Ml Premix Bag IV 02/15/19 02:57 Infused CONTINUOUS PRN Titration THIS MED IS NOT "PRN" Protocol Titrate Midazolam HCl 50 mg in 100 mls @ 0 mls/hr 02/08/19 03:15 Versed Rtu 50 Mg/100 Ml Premix Bag IV 02/15/19 03:14 CONTINUOUS PRN THIS MED IS NOT "PRN" Protocol Titrate Ketamine HCl Confirm 02/08/19 02:46 02/08/19 04:43 Ketalar Inj 500 Mg/10 Ml Vial Administered 02/08/19 02:47 Not Given Dose 500 mg .ROUTE .STK-MED ONE Ketamine HCl 200 mg 02/08/19 03:15 02/08/19 02:53 Ketalar Inj 500 Mg/10 Ml Vial IV 02/08/19 03:16 200 mg NOW ONE Administration Ketamine HCl 200 mg 02/08/19 03:34 02/08/19 03:37 Ketalar Inj 500 Mg/10 Ml Vial IV 02/08/19 03:35 200 mg NOW ONE Administration Lorazepam 2 mg 02/10/19 14:19 02/10/19 14:45 Ativan Inj 2 Mg/1 Ml Vial IV 02/10/19 14:20 2 mg NOW ONE Administration Lorazepam Confirm 02/10/19 14:16 02/10/19 14:48 Ativan Inj 2 Mg/1 Ml Vial Administered 02/10/19 14:17 Not Given Dose 2 mg .ROUTE .STK-MED ONE Methylprednisolone Sodium Succinate 125 mg 02/08/19 03:18 02/08/19 04:55 Solu-Medrol Inj/Pf 125 Mg/2 Ml Sdv IV 02/08/19 03:19 Not Given NOW ONE Methylprednisolone Sodium Succinate 125 mg 02/08/19 04:11 02/08/19 06:15 Solu-Medrol Inj/Pf 125 Mg/2 Ml Sdv IV 02/08/19 04:12 Not Given NOW ONE Rocuronium [place] 150 mg 02/08/19 09:31 Zemuron Inj 50 Mg/5 Ml Vial IV 02/08/19 09:32 .STK-MED ONE Succinylcholine Chloride 100 mg 02/08/19 03:15 02/08/19 03:04 Anectine Inj 200 Mg/10 Ml Vial IV 02/08/19 03:16 100 mg NOW ONE Administration Succinylcholine Chloride 200 mg 02/08/19 09:31 Anectine Inj 200 Mg/10 Ml Vial .ROUTE 02/08/19 09:32 .STK-MED ONE Succinylcholine Chloride 200 mg 02/08/19 15:00 Anectine Inj 200 Mg/10 Ml Vial .ROUTE 02/08/19 15:01 .STK-MED ONE Physical EXAMINATION: The patient is morbidly obese. She is intubated and sedated. Selected Entries 02/10/19 02/10/19 02/10/19 10:00 11:00 13:00 Temperature 98.4 F 98.2 F Heart Rate ( 60 60 Monitors) Respiratory 16 15 Rate Blood Pressure 136/70 H [Left Upper Arm ] Blood Pressure 92 Mean [Left Upper Arm] Blood Pressure Supine Position [Left Upper Arm] Blood Pressure 136 Systolic [Left Upper Arm] O2 Sat by Pulse 95 97 98 Oximetry Oxygen Delivery Mechanical Method ( Ventilator includes room air) Fraction of Inspired Oxygen (FIO2) Percent of 65 Oxygen 02/10/19 14:00 Temperature Heart Rate ( Monitors) Respiratory Rate Blood Pressure [Left Upper Arm ] Blood Pressure Mean [Left Upper Arm] Blood Pressure Position [Left Upper Arm] Blood Pressure Systolic [Left Upper Arm] O2 Sat by Pulse Oximetry Oxygen Delivery Method ( includes room air) Fraction of 65 Inspired Oxygen (FIO2) Percent of Oxygen HEAD: Is atraumatic normocephalic. EYES: Pupils are equal round regular reactive to light. HEENT is negative. SKIN: There is no skin rashes or skin lesions. There is no particular ecchymosis. NECK: Is supple. There is mild JVD present. Carotids are equal there is no bruits. There is no lymphadenopathy. There is no goiter. There is no accessory muscle respiration use. Trachea central. LUNGS: Shows bibasilar rales of CHF. There is a dry crackles scattered, and wheezing throughout the lung. There is also dry crackles in the right lower lobe. There is diminished air entry. On percussion there is hyperresonance. On palpation there is no chest wall tenderness. HEART: S1-S2 is heard. There is no S3 gallop. There is no S4 gallop. There is systolic murmur mitral regurgitation tricuspid regurgitation present. There is no aortic stenosis murmur. There is no aortic insufficiency murmur. There is no rub. ABDOMEN: Is obese. Nontender. There is no hepatosplenomegaly. Bowel sounds are well heard. There is no rebound guarding or rigidity. EXTREMITIES: Femorals are deep. Femorals are diminished. There is no femoral bruits. There is decreased leg pulses. There is mild pedal edema. There is no DVT or cellulitis. There is no calf tenderness. COARSE WIRE DRAWER: And PSYCHIATRIC: Examination not done due to patient intubated and sedated. Labs- Entire Visit 02/08/19 02/08/19 02/08/19 03:24 03:30 04:06 WBC Cancelled RBC Cancelled Hgb Cancelled Hct Cancelled MCV Cancelled MCH Cancelled MCHC Cancelled RDW Cancelled Plt Count Cancelled Lymph % (Auto) Cancelled Elk % (Auto) Cancelled Eos % (Auto) Cancelled Baso % (Auto) Cancelled Absolute Neuts (auto) Cancelled Absolute Lymphs (auto) Cancelled Absolute Monos (auto) Cancelled Absolute Eos (auto) Cancelled Absolute Basos (auto) Cancelled Total Counted Seg Neutrophils % Cancelled Seg Neuts % (Manual) Band Neutrophils % Lymphocytes % (Manual) Monocytes % (Manual) Eosinophils % (Manual) Basophils % (Manual) Abs Neuts (Manual) Abs Lymphs (Manual) Abs Monocytes (Manual) Absolute Eos (Manual) Abs Basophils (Manual) Toxic Granulation Toxic Vacuolation Platelet Estimate Cancelled Platelet Comment Hypochromasia Poikilocytosis Anisocytosis Ovalocytes Schistocytes PT INR APTT Carbonic Acid 1.63 H HCO3/H2CO3 Ratio 13:1 ABG pH 7.24 L ABG pCO2 54.0 H ABG pO2 66.3 L ABG HCO3 22.5 ABG Total CO2 24.2 ABG O2 Saturation 89.4 L ABG Base Excess -5.2 FiO2 100% Sodium Cancelled Potassium Cancelled Chloride Cancelled Carbon Dioxide Cancelled Anion Gap Cancelled BUN Cancelled Creatinine Cancelled Est GFR ( Amer) Cancelled Est GFR (Non-Af Amer) Cancelled Est GFR (MDRD) Non-Af Cancelled Glucose Cancelled POC Glucose Calcium Cancelled Phosphorus Magnesium Total Bilirubin Cancelled Direct Bilirubin Cancelled Neonat Total Bilirubin Cancelled Neonat Direct Bilirubin Cancelled Neonat Indirect Bili Cancelled AST Cancelled ALT Cancelled Alkaline Phosphatase Cancelled Ammonia Creatine Kinase Cancelled CK-MB (CK-2) Troponin I NT-Pro-B Natriuret Pep Total Protein Cancelled Albumin Cancelled Triglycerides EGFR Cancelled Urine Color Urine Appearance Urine pH Ur Specific Faith Urine Protein Urine Glucose (UA) Urine Ketones Urine Blood Urine Nitrite Urine Bilirubin Urine Urobilinogen Ur Leukocyte Esterase Urine WBC (Auto) Urine RBC (Auto) U Hyaline Cast (Auto) Squamous Epi Cells Auto Urine Mucus (Auto) Urine Ascorbic Acid Slides for Path Review Cancelled 02/08/19 02/08/19 02/08/19 04:06 04:06 05:30 WBC 8.2 RBC 3.96 Hgb 11.5 L Hct 37.5 MCV 95 D MCH 29.1 MCHC 30.8 L RDW 19.9 H Plt Count 229 Lymph % (Auto) 7.0 L Elk % (Auto) 5.1 Eos % (Auto) 0.2 Baso % (Auto) 0.6 Absolute Neuts (auto) 7.1 Absolute Lymphs (auto) 0.6 Absolute Monos (auto) 0.4 Absolute Eos (auto) 0.0 Absolute Basos (auto) 0.0 Total Counted Seg Neutrophils % 87.1 H Seg Neuts % (Manual) Band Neutrophils % Lymphocytes % (Manual) Monocytes % (Manual) Eosinophils % (Manual) Basophils % (Manual) Abs Neuts (Manual) Abs Lymphs (Manual) Abs Monocytes (Manual) Absolute Eos (Manual) Abs Basophils (Manual) Toxic Granulation Toxic Vacuolation Platelet Estimate Platelet Comment Hypochromasia Poikilocytosis Anisocytosis Ovalocytes Schistocytes PT INR APTT Carbonic Acid HCO3/H2CO3 Ratio ABG pH ABG pCO2 ABG pO2 ABG HCO3 ABG Total CO2 ABG O2 Saturation ABG Base Excess FiO2 Sodium 145.7 H Potassium 3.8 Chloride 104 Carbon Dioxide 31 H Anion Gap 11 BUN 14 Creatinine 2.32 H Est GFR ( Amer) 27 L Est GFR (Non-Af Amer) Est GFR (MDRD) Non-Af 23 L Glucose 40 L* POC Glucose Calcium 8.4 Phosphorus Magnesium Total Bilirubin 2.8 H Direct Bilirubin 1.7 H Neonat Total Bilirubin Not Reportable Neonat Direct Bilirubin Not Reportable Neonat Indirect Bili Not Reportable AST 91 H ALT 60 Alkaline Phosphatase 151 H Ammonia Creatine Kinase 33 CK-MB (CK-2) Cancelled Troponin I Cancelled NT-Pro-B Natriuret Pep Cancelled Total Protein 6.9 Albumin 3.7 Triglycerides EGFR Urine Color Urine Appearance Urine pH Ur Specific Faith Urine Protein Urine Glucose (UA) Urine Ketones Urine Blood Urine Nitrite Urine Bilirubin Urine Urobilinogen Ur Leukocyte Esterase Urine WBC (Auto) Urine RBC (Auto) U Hyaline Cast (Auto) Squamous Epi Cells Auto Urine Mucus (Auto) Urine Ascorbic Acid Slides for Path Review 02/08/19 02/08/19 02/08/19 05:30 05:30 05:45 WBC RBC Hgb Hct MCV MCH MCHC RDW Plt Count Lymph % (Auto) Elk % (Auto) Eos % (Auto) Baso % (Auto) Absolute Neuts (auto) Absolute Lymphs (auto) Absolute Monos (auto) Absolute Eos (auto) Absolute Basos (auto) Total Counted Seg Neutrophils % Seg Neuts % (Manual) Band Neutrophils % Lymphocytes % (Manual) Monocytes % (Manual) Eosinophils % (Manual) Basophils % (Manual) Abs Neuts (Manual) Abs Lymphs (Manual) Abs Monocytes (Manual) Absolute Eos (Manual) Abs Basophils (Manual) Toxic Granulation Toxic Vacuolation Platelet Estimate Platelet Comment Hypochromasia Poikilocytosis Anisocytosis Ovalocytes Schistocytes PT INR APTT Carbonic Acid HCO3/H2CO3 Ratio ABG pH ABG pCO2 ABG pO2 ABG HCO3 ABG Total CO2 ABG O2 Saturation ABG Base Excess FiO2 Sodium Potassium Chloride Carbon Dioxide Anion Gap BUN Creatinine Est GFR ( Amer) Est GFR (Non-Af Amer) Est GFR (MDRD) Non-Af Glucose POC Glucose Calcium Phosphorus 5.1 H Magnesium 2.2 Total Bilirubin Direct Bilirubin Neonat Total Bilirubin Neonat Direct Bilirubin Neonat Indirect Bili AST ALT Alkaline Phosphatase Ammonia Creatine Kinase CK-MB (CK-2) < 0.22 Troponin I 0.043 NT-Pro-B Natriuret Pep 7610 H Total Protein Albumin Triglycerides 47 EGFR Urine Color Urine Appearance Urine pH Ur Specific Faith Urine Protein Urine Glucose (UA) Urine Ketones Urine Blood Urine Nitrite Urine Bilirubin Urine Urobilinogen Ur Leukocyte Esterase Urine WBC (Auto) Urine RBC (Auto) U Hyaline Cast (Auto) Squamous Epi Cells Auto Urine Mucus (Auto) Urine Ascorbic Acid Slides for Path Review 02/08/19 02/08/19 02/08/19 05:45 06:39 06:45 WBC RBC Hgb Hct MCV MCH MCHC RDW Plt Count Lymph % (Auto) Elk % (Auto) Eos % (Auto) Baso % (Auto) Absolute Neuts (auto) Absolute Lymphs (auto) Absolute Monos (auto) Absolute Eos (auto) Absolute Basos (auto) Total Counted Seg Neutrophils % Seg Neuts % (Manual) Band Neutrophils % Lymphocytes % (Manual) Monocytes % (Manual) Eosinophils % (Manual) Basophils % (Manual) Abs Neuts (Manual) Abs Lymphs (Manual) Abs Monocytes (Manual) Absolute Eos (Manual) Abs Basophils (Manual) Toxic Granulation Toxic Vacuolation Platelet Estimate Platelet Comment Hypochromasia Poikilocytosis Anisocytosis Ovalocytes Schistocytes PT 23.0 H INR 2.00 APTT 35.3 Carbonic Acid HCO3/H2CO3 Ratio ABG pH ABG pCO2 ABG pO2 ABG HCO3 ABG Total CO2 ABG O2 Saturation ABG Base Excess FiO2 Sodium Potassium Chloride Carbon Dioxide Anion Gap BUN Creatinine Est GFR ( Amer) Est GFR (Non-Af Amer) Est GFR (MDRD) Non-Af Glucose POC Glucose 95 Calcium Phosphorus Magnesium Total Bilirubin Direct Bilirubin Neonat Total Bilirubin Neonat Direct Bilirubin Neonat Indirect Bili AST ALT Alkaline Phosphatase Ammonia 11.0 Creatine Kinase CK-MB (CK-2) Troponin I NT-Pro-B Natriuret Pep Total Protein Albumin Triglycerides EGFR Urine Color Urine Appearance Urine pH Ur Specific Faith Urine Protein Urine Glucose (UA) Urine Ketones Urine Blood Urine Nitrite Urine Bilirubin Urine Urobilinogen Ur Leukocyte Esterase Urine WBC (Auto) Urine RBC (Auto) U Hyaline Cast (Auto) Squamous Epi Cells Auto Urine Mucus (Auto) Urine Ascorbic Acid Slides for Path Review 02/08/19 02/09/19 02/09/19 13:55 04:03 04:03 WBC 6.8 RBC 3.16 L Hgb 9.5 L Hct 29.4 L MCV 93 MCH 30.2 MCHC 32.4 RDW 19.7 H Plt Count 173 Lymph % (Auto) Not Reportable Elk % (Auto) Not Reportable Eos % (Auto) Not Reportable Baso % (Auto) Not Reportable Absolute Neuts (auto) Not Reportable Absolute Lymphs (auto) Not Reportable Absolute Monos (auto) Not Reportable Absolute Eos (auto) Not Reportable Absolute Basos (auto) Not Reportable Total Counted 100 Seg Neutrophils % Not Reportable Seg Neuts % (Manual) 95 H Band Neutrophils % Lymphocytes % (Manual) 1 L Monocytes % (Manual) 4 Eosinophils % (Manual) 0 Basophils % (Manual) 0 Abs Neuts (Manual) 6.5 Abs Lymphs (Manual) 0.1 L Abs Monocytes (Manual) 0.3 Absolute Eos (Manual) 0.0 Abs Basophils (Manual) 0.0 Toxic Granulation SLIGHT Toxic Vacuolation PRESENT Platelet Estimate Platelet Comment ADEQUATE Hypochromasia Poikilocytosis SLIGHT Anisocytosis 2+ Ovalocytes SLIGHT Schistocytes SLIGHT PT INR APTT Carbonic Acid HCO3/H2CO3 Ratio ABG pH ABG pCO2 ABG pO2 ABG HCO3 ABG Total CO2 ABG O2 Saturation ABG Base Excess FiO2 Sodium 142.8 Potassium 3.7 Chloride 102 Carbon Dioxide 32 H Anion Gap 9 BUN 23 H Creatinine 1.77 H Est GFR ( Amer) 37 L Est GFR (Non-Af Amer) Est GFR (MDRD) Non-Af 31 L Glucose 113 H POC Glucose Calcium 8.3 L Phosphorus 4.3 Magnesium 2.3 Total Bilirubin Direct Bilirubin Neonat Total Bilirubin Neonat Direct Bilirubin Neonat Indirect Bili AST ALT Alkaline Phosphatase Ammonia Creatine Kinase CK-MB (CK-2) Troponin I NT-Pro-B Natriuret Pep Total Protein Albumin Triglycerides EGFR Urine Color YELLOW Urine Appearance SLIGHTLY-CLOUDY Urine pH 5.0 Ur Specific Faith 1.008 Urine Protein NEGATIVE Urine Glucose (UA) NEGATIVE Urine Ketones NEGATIVE Urine Blood SMALL H Urine Nitrite NEGATIVE Urine Bilirubin NEGATIVE Urine Urobilinogen NEGATIVE Ur Leukocyte Esterase NEGATIVE Urine WBC (Auto) 3 Urine RBC (Auto) 1 U Hyaline Cast (Auto) 6 Squamous Epi Cells Auto 1 Urine Mucus (Auto) RARE Urine Ascorbic Acid NEGATIVE Slides for Path Review 02/09/19 02/10/1919 04:03 03:25 03:25 WBC RBC Hgb Hct MCV MCH MCHC RDW Plt Count Lymph % (Auto) Elk % (Auto) Eos % (Auto) Baso % (Auto) Absolute Neuts (auto) Absolute Lymphs (auto) Absolute Monos (auto) Absolute Eos (auto) Absolute Basos (auto) Total Counted Seg Neutrophils % Seg Neuts % (Manual) Band Neutrophils % Lymphocytes % (Manual) Monocytes % (Manual) Eosinophils % (Manual) Basophils % (Manual) Abs Neuts (Manual) Abs Lymphs (Manual) Abs Monocytes (Manual) Absolute Eos (Manual) Abs Basophils (Manual) Toxic Granulation Toxic Vacuolation Platelet Estimate Platelet Comment Hypochromasia Poikilocytosis Anisocytosis Ovalocytes Schistocytes PT INR APTT Carbonic Acid 1.59 H 1.35 HCO3/H2CO3 Ratio 20:1 23:1 ABG pH 7.41 7.48 H ABG pCO2 52.9 H 44.8 ABG pO2 63.5 L 60.1 L ABG HCO3 32.4 H 32.3 H ABG Total CO2 34.0 H 33.7 H ABG O2 Saturation 92.0 L 92.4 L ABG Base Excess 6.6 7.8 FiO2 40% 40% Sodium 144.3 Potassium 3.6 Chloride 102 Carbon Dioxide 35 H Anion Gap 7 BUN 29 H Creatinine 1.53 H Est GFR ( Amer) 44 L Est GFR (Non-Af Amer) Est GFR (MDRD) Non-Af 36 L Glucose 167 H POC Glucose Calcium 8.3 L Phosphorus 3.7 Magnesium 2.4 H Total Bilirubin Direct Bilirubin Neonat Total Bilirubin Neonat Direct Bilirubin Neonat Indirect Bili AST ALT Alkaline Phosphatase Ammonia Creatine Kinase CK-MB (CK-2) Troponin I NT-Pro-B Natriuret Pep Total Protein Albumin Triglycerides EGFR Urine Color Urine Appearance Urine pH Ur Specific Faith Urine Protein Urine Glucose (UA) Urine Ketones Urine Blood Urine Nitrite Urine Bilirubin Urine Urobilinogen Ur Leukocyte Esterase Urine WBC (Auto) Urine RBC (Auto) U Hyaline Cast (Auto) Squamous Epi Cells Auto Urine Mucus (Auto) Urine Ascorbic Acid Slides for Path Review 02/10/19 02/10/19 03:25 03:25 WBC 5.5 RBC 3.65 L Hgb 10.6 L Hct 33.4 L MCV 92 MCH 29.0 MCHC 31.7 L RDW 19.8 H Plt Count 174 Lymph % (Auto) Not Reportable Elk % (Auto) Not Reportable Eos % (Auto) Not Reportable Baso % (Auto) Not Reportable Absolute Neuts (auto) Not Reportable Absolute Lymphs (auto) Not Reportable Absolute Monos (auto) Not Reportable Absolute Eos (auto) Not Reportable Absolute Basos (auto) Not Reportable Total Counted 100 Seg Neutrophils % Not Reportable Seg Neuts % (Manual) 91 H Band Neutrophils % 4 Lymphocytes % (Manual) 3 L Monocytes % (Manual) 2 L Eosinophils % (Manual) 0 Basophils % (Manual) 0 Abs Neuts (Manual) 5.2 Abs Lymphs (Manual) 0.2 L Abs Monocytes (Manual) 0.1 Absolute Eos (Manual) 0.0 Abs Basophils (Manual) 0.0 Toxic Granulation Toxic Vacuolation Platelet Estimate Platelet Comment ADEQUATE Hypochromasia SLIGHT Poikilocytosis Anisocytosis 2+ Ovalocytes Schistocytes PT 18.4 H INR 1.51 APTT Carbonic Acid HCO3/H2CO3 Ratio ABG pH ABG pCO2 ABG pO2 ABG HCO3 ABG Total CO2 ABG O2 Saturation ABG Base Excess FiO2 Sodium Potassium Chloride Carbon Dioxide Anion Gap BUN Creatinine Est GFR ( Amer) Est GFR (Non-Af Amer) Est GFR (MDRD) Non-Af Glucose POC Glucose Calcium Phosphorus Magnesium Total Bilirubin Direct Bilirubin Neonat Total Bilirubin Neonat Direct Bilirubin Neonat Indirect Bili AST ALT Alkaline Phosphatase Ammonia Creatine Kinase CK-MB (CK-2) Troponin I NT-Pro-B Natriuret Pep Total Protein Albumin Triglycerides EGFR Urine Color Urine Appearance Urine pH Ur Specific Faith Urine Protein Urine Glucose (UA) Urine Ketones Urine Blood Urine Nitrite Urine Bilirubin Urine Urobilinogen Ur Leukocyte Esterase Urine WBC (Auto) Urine RBC (Auto) U Hyaline Cast (Auto) Squamous Epi Cells Auto Urine Mucus (Auto) Urine Ascorbic Acid Slides for Path Review Chest X-Ray 02/08/19 00:00 IMPRESSION: Slight advancement of endotracheal tube. Otherwise no change. Chest X-Ray 02/08/19 00:00 IMPRESSION: NO PNEUMOTHORAX FOLLOWING CENTRAL LINE PLACEMENT. OTHERWISE NO CHANGE. Chest X-Ray 02/08/19 03:15 IMPRESSION: Cardiomegaly. Endotracheal and enteric tubes are in place. Postsurgical changes of the mediastinum. Airspace opacities right lung base. copyright 2010 [employer]- All Rights Reserved Chest CT 02/10/19 00:00 IMPRESSION: No pneumothorax. No pleural effusions. Bibasilar consolidation in both lower lobes. Slightly increased interstitial thickening, basilar predominance. Scattered pulmonary cysts and ground-glass opacities are again noted. Tubes and lines in expected positions. EKG: Shows AV paced rhythm intermittently and also atrial tracking and V pacing. IMPRESSION/RECOMMENDATION: 1. Acute on chronic respiratory failure. This is multifactorial secondary to the causes listed below. Continue ventilator support and supplemental oxygen. 2. Acute on chronic systolic heart failure. Patient with LV ejection fraction of 25%. Agree with continuing aggressive diuresis with Lasix. And continue the patient's Entresto and beta-rip. 3. Acute exacerbation COPD: Continue bronchodilators and ventilatory support. 4. Possible pneumonia: Continue antibiotics. 5. 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 Hence would recommend discontinue the patient's amiodarone which has been done. 6. Acute on chronic kidney disease: Watch renal function as we implement aggressive diuresis. 7. Cardiomyopathy with severely reduced LV ejection fraction. 8. Paroxysmal atrial fibrillation: Continue beta-rip and Eliquis. 9. History of ventricular tachycardia, The patient has an AICD placed. If there is recurrence of ventricular tachycardia or major ventricular ectopic activity then would start the patient on small dose of sotalol. Would avoid amiodarone. 10. Hypertension: Blood pressure well controlled, on current medications. 11. Coronary artery disease: History of [place] and history of coronary bypass graft surgery. No evidence of acute coronary syndrome/non-ST ST elevation [place] this admission. 12. Obstructive sleep apnea. Note patient is noncompliant with CPAP. Most likely has significant pulmonary hypertension. 13. AICD placement: Note the patient's basal rate is around 60 bpm. If the patient's heart failure continues then would recommend increasing the basal heart rate to 80 bpm to help combat the heart failure along with diuretics. 14. Morbid obesity. Medications reviewed. Management plan and medical regimen discussed with the hr assistant. Medical decision making is high complexity. 60-minute spent was patient with more than 50% of time spent in direct patient care.
[2019-02-11 03:37] LABS: ARTERIAL BLOOD HCO3 34.3 mmol/L (20-24); ARTERIAL BLOOD PCO2 49.9 mmHg (35-45); ARTERIAL BLOOD PH 7.46 (7.35-7.45); ARTERIAL BLOOD PO2 72.3 mmHg (80-100); ARTERIAL BLOOD TOTAL CO2 35.8 mmol/L (21-25); HEMATOCRIT 34.6 % (36.0-47.0); MEAN CORPUSCULAR HEMOGLOBIN 28.8 pg (27.0-33.4); MEAN CORPUSCULAR HGB CONC 31.7 g/dL (32.0-36.0); MEAN CORPUSCULAR VOLUME 91 fl (80-97); PLATELET COUNT 179 10^3/uL (150-450); RED CELL DISTRIBUTION WIDTH 19.7 % (11.5-14.0); WHITE BLOOD COUNT 5.6 10^3/uL (4.0-10.5)
[2019-02-11 03:41] LABS: ARTERIAL BLOOD FIO2 45%
[2019-02-11 03:58] LABS: BLOOD UREA NITROGEN 35 mg/dL (7-20); CALCIUM 8.4 mg/dL (8.4-10.2); CHLORIDE 102 mmol/L (98-107); GLUCOSE 166 mg/dL (75-110); POTASSIUM 3.4 mmol/L (3.6-5.0)
[2019-02-11 04:05] LABS: ANION GAP 6 (5-19); CARBON DIOXIDE 39 mmol/L (22-30)
[2019-02-11 04:07] LABS: ABSOLUTE LYMPHOCYTES# (MANUAL) 0.2 10^3/uL (0.5-4.7); ABSOLUTE MONOCYTES # (MANUAL) 0.2 10^3/uL (0.1-1.4); ANISOCYTOSIS 2+; BAND NEUTROPHILS % (MANUAL) 6 % (3-5); BASOPHILS % (MANUAL) 0 % (0-2); EOSINOPHILS % (MANUAL) 0 % (0-6); HYPOCHROMASIA 2+; LYMPHOCYTES % (MANUAL) 3 % (13-45); MONOCYTES % (MANUAL) 3 % (3-13); SEGMENTED NEUTROPHILS % (MAN) 88 % (42-78); TOTAL CELLS COUNTED 100
[2019-02-11 04:08] LABS: PLATELET COMMENT ADEQUATE
[2019-02-11 04:16] LABS: FREE T3 2.48 pg/mL (2.77-5.27); FREE T4 (FREE THYROXINE) 1.69 ng/dL (0.78-2.19)
[2019-02-11 04:29] LABS: THYROID STIMULATING HORMONE 1.34 uIU/mL (0.47-4.68)
[2019-02-11] MEDS: METHYLPREDNISOLONE INJ 125 MG/2 ML SDV IV SCH ×3 (05:21→21:30)
[2019-02-11] MEDS ORDERED: POTASSIUM CHLORIDE 20 MEQ PACKET NG ONE (05:47)
[2019-02-11] MEDS: DEXMEDETOMIDINE IN 0.9 % NACL 400 MCG/100 ML RTUPB IV PRN (06:27)
[2019-02-11] MEDS: FUROSEMIDE 80 MG TABLET NG SCH ×2 (09:35→17:10)
[2019-02-11] MEDS: FAMOTIDINE INJ/PF 20 MG/2 ML SDV IV SCH ×2 (09:51→21:29)
[2019-02-11] MEDS: AMINO AC/PROTEIN HYDR/WHEY PRO 11 GM/45 ML PKT NG SCH ×3 (09:51→21:31)
[2019-02-11] MEDS: SACUBITRIL/VALSARTAN 97 MG/103 MG TABLET NG SCH (09:51)
[2019-02-11] MEDS: APIXABAN 5 MG TABLET NG SCH ×2 (09:51→17:09)
[2019-02-11] MEDS: BUSPIRONE HCL 10 MG TABLET NG SCH ×2 (09:51→21:31)
[2019-02-11] MEDS: METOPROLOL TARTRATE 50 MG TABLET NG SCH (09:52)
[2019-02-11] MEDS ORDERED: PAROXETINE HCL 20 MG TABLET NG SCH (10:00)
[2019-02-11] MEDS ORDERED: FENTANYL CITRATE INJ/PF 100 MCG/2 ML AMPUL ONE (10:58)
[2019-02-11] MEDS ORDERED: ETOMIDATE INJ/PF 20 MG/10 ML SDV IV ONE (10:58)
[2019-02-11 11:58] LABS: ARTERIAL BLOOD BASE EXCESS 7.6 mmol/L; ARTERIAL BLOOD FIO2 55; ARTERIAL BLOOD H2CO3 1.51 mmol/L (1.05-1.35); ARTERIAL BLOOD PCO2 50.2 mmHg (35-45); ARTERIAL BLOOD PH 7.44 (7.35-7.45); ARTERIAL BLOOD PO2 68.4 mmHg (80-100); ARTERIAL BLOOD TOTAL CO2 34.6 mmol/L (21-25)
[2019-02-11] MEDS ORDERED: VANCOMYCIN HCL 0 MG in DEXTROSE 5%-WATER 250 ML IV NR (12:30)
[2019-02-11] MEDS: ACETAMINOPHEN 325 MG SUPP.RECT PR PRN (15:17)
--- NOTE | 2019-02-11 15:40 | PDOC CRITICAL CARE PROG REPORT ---
General Date:: 02/11/19 ICU Day:: 4 Resuscitation Status: Full Code Events in the past 12 to 24 Hours:: Earlier this morning while seeing a consult in the emergency department the patient removed her endotracheal tube despite proper restraints and sedation. She was placed on BiPAP and has been managed on BiPAP since that point. Additionally, her sputum culture (pulled from her tracheal suctioning) returned with MRSA. Reason for ICU Addmission:: Respiratory failure - Medications: Medications reviewed and adjusted accordingly: Yes Physical Exam Vital Signs: Temp Pulse Resp BP Pulse Ox 100.2 F 60 27 H 150/94 H 93 02/11/19 14:01 02/11/19 12:00 02/11/19 14:01 02/11/19 14:01 02/11/19 14:01 Intake & Output 02/10/19 02/11/19 02/12/19 06:59 06:59 06:59 Intake Total 263 487 66 Output Total 2905 2350 340 Balance -2642 -1863 -274 Weight 112.6 kg 107.4 kg Weight/Height Weight 107.4 kg Height 5 ft 4 in General appearance: PRESENT: mild distress, well-developed, well-nourished Head exam: PRESENT: atraumatic, normocephalic Eye exam: PRESENT: conjunctiva pink, EOMI, PERRLA Ear exam: PRESENT: normal external ear exam Mouth exam: PRESENT: moist, neck supple, tongue midline Throat exam: ABSENT: post pharyngeal erythema Neck exam: ABSENT: carotid bruit, JVD, tracheal deviation Respiratory exam: PRESENT: crackles, wheezes. ABSENT: chest wall tenderness, rales, rhonchi, stridor Cardiovascular exam: PRESENT: bradycardia, other - Paced at 60 BPM Pulses: PRESENT: normal dorsalis pedis pul Vascular exam: PRESENT: normal capillary refill GI/Abdominal exam: PRESENT: normal bowel sounds, soft. ABSENT: ascites, distended, tenderness Rectal exam: PRESENT: deferred Extremities exam: PRESENT: full ROM. ABSENT: calf tenderness, clubbing, pedal edema Neurological exam: PRESENT: awake, CN II-XII grossly intact Psychiatric exam: PRESENT: flat affect Skin exam: PRESENT: dry, intact, warm. ABSENT: cyanosis, rash Laboratory/Radiographs Laboratory Results: 02/11/19 03:18 02/11/19 03:18 02/11/19 02/11/1919 03:18 03:18 03:18 WBC 5.6 RBC 3.80 Hgb 11.0 L Hct 34.6 L MCV 91 MCH 28.8 MCHC 31.7 L RDW 19.7 H Plt Count 179 Seg Neutrophils % Not Reportable Carbonic Acid 1.50 H HCO3/H2CO3 Ratio 22:1 ABG pH 7.46 H ABG pCO2 49.9 H ABG pO2 72.3 L ABG HCO3 34.3 H ABG O2 Saturation 95.0 ABG Base Excess 9.0 FiO2 45% Sodium 147.2 H Potassium 3.4 L Chloride 102 Carbon Dioxide 39 H Anion Gap 6 BUN 35 H Creatinine 1.56 H Est GFR ( Amer) 43 L Glucose 166 H Calcium 8.4 TSH Free T4 Free T3 pg/mL 02/11/19 02/11/19 03:18 11:50 WBC RBC Hgb Hct MCV MCH MCHC RDW Plt Count Seg Neutrophils % Carbonic Acid 1.51 H HCO3/H2CO3 Ratio 21:1 ABG pH 7.44 ABG pCO2 50.2 H ABG pO2 68.4 L ABG HCO3 33.0 H ABG O2 Saturation 94.0 ABG Base Excess 7.6 FiO2 55 Sodium Potassium Chloride Carbon Dioxide Anion Gap BUN Creatinine Est GFR ( Amer) Glucose Calcium TSH 1.34 Free T4 1.69 Free T3 pg/mL 2.48 L 02/08/19 05:30 Tracheal Aspirate Gram Stain - Final 02/08/19 05:30 Tracheal Aspirate Sputum Culture - Final Mrsa (Meth Resis Staph Aureus) Normal Evelyn 02/08/19 13:55 Jones Catheter Urine Culture - Final NO GROWTH 2 DAYS 02/08/19 02/08/19 02/08/19 04:06 04:06 05:30 Creatine Kinase Cancelled 33 CK-MB (CK-2) Cancelled Troponin I Cancelled NT-Pro-B Natriuret Pep Cancelled 02/08/19 02/11/19 05:45 03:18 Creatine Kinase CK-MB (CK-2) < 0.22 Troponin I 0.043 NT-Pro-B Natriuret Pep 7610 H 1970 H Impressions: Chest CT 02/10/19 00:00 IMPRESSION: No pneumothorax. No pleural effusions. Bibasilar consolidation in both lower lobes. Slightly increased interstitial thickening, basilar predominance. Scattered pulmonary cysts and ground-glass opacities are again noted. Tubes and lines in expected positions. All labs, radiographs, diagnostic studies and EKGs were personally reviewed: Yes In addition, reports of radiographic and diagnostic studies were read: Yes Assessment and Plan - Diagnosis (1) Acute respiratory failure with hypoxia Is this a current diagnosis for this admission?: Yes Plan: Unplanned extubation this morning as patient pulled her tube despite adequte restraints and sedation. Continue BiPAP. Starting antibiotics for her MRSA pne umonia and will add steroids back to her regimen as her work of breathing has increased significantly. Low threshold to replace ET tube. (2) Acute on chronic systolic (congestive) heart failure Is this a current diagnosis for this admission?: Yes Plan: Meds restarted per cards recommendations. BNP drastically decreased from prior lab. (3) Tobacco use disorder, severe, dependence Is this a current diagnosis for this admission?: Yes Plan: Counseling when appropriate (4) AICD (automatic cardioverter/defibrillator) present Is this a current diagnosis for this admission?: Yes Plan: Per cardiology, should she there be question of insufficient cardiac output, would recommend calling AICD company and asking rep to increase HR to 80. (5) Pneumonia Qualifiers: Pneumonia type: due to methicillin-resistant Staphylococcus aureus (MRSA) Is this a current diagnosis for this admission?: Yes Plan: Tracheal aspirate returned with MRSA. Vancomycin per pharmacy dosing. Critical Time Critical Time (minutes): 90 Level of Care: ICU Anticipated discharge: Home -: 1. The care of a critical patient is a dynamic process. This note is a b2b sales representative synopsis but static in nature. The timeframe for treatments given in order is not necessary the actual time these treatments may have been done. 2. This patient requires critical care secondary to ongoing requirements for therapy not offered or safe outside the critical care environment. Transfer to a lower level of care with altered life or limb morbidity and mortality. 3. Multidisciplinary rounds completed. 4. ABCDE bundle addressed.
[2019-02-11 15:48] LABS: ARTERIAL BLOOD BASE EXCESS 7.8 mmol/L; ARTERIAL BLOOD H2CO3 1.56 mmol/L (1.05-1.35); ARTERIAL BLOOD HCO3 33.5 mmol/L (20-24); ARTERIAL BLOOD O2 SATURATION 92.4 % (94-98); ARTERIAL BLOOD PCO2 51.7 mmHg (35-45); ARTERIAL BLOOD PH 7.43 (7.35-7.45); ARTERIAL BLOOD PO2 63.2 mmHg (80-100); ARTERIAL BLOOD TOTAL CO2 35.1 mmol/L (21-25)
[2019-02-11] MEDS ORDERED: HALOPERIDOL LACTATE INJ 5 MG/1 ML VIAL ONE ×2 (16:37→23:42)
[2019-02-11] MEDS ORDERED: VANCOMYCIN HCL 1,250 MG in DEXTROSE 5%-WATER 250 ML IV SCH (17:00)
[2019-02-11] MEDS ORDERED: HALOPERIDOL LACTATE INJ 5 MG/1 ML VIAL IV ONE ×2 (17:45→23:59)
[2019-02-11] MEDS: IPRATROPIUM/ALBUTEROL 0.5-2.5 MG/3 ML AMPUL NEB PRN ×2 (22:31→22:59)
[2019-02-12] MEDS ORDERED: VECURONIUM BROMIDE INJ 10 MG VIAL IV ONE ×4 (00:44→05:00)
[2019-02-12] MEDS ORDERED: FENTANYL CITRATE INJ/PF 100 MCG/2 ML AMPUL ONE ×2 (01:00→23:27)
[2019-02-12] MEDS ORDERED: MIDAZOLAM 2 MG/2 ML INJ ONE ×2 (01:00→02:12)
[2019-02-12] MEDS ORDERED: FENTANYL CITRATE INJ/PF 100 MCG/2 ML AMPUL IV ONE ×2 (01:10→23:59)
[2019-02-12] MEDS: IPRATROPIUM/ALBUTEROL 0.5-2.5 MG/3 ML AMPUL NEB PRN ×2 (02:00→08:23)
[2019-02-12] MEDS ORDERED: ALBUTEROL SULFATE 0.083% NEB 2.5 MG/3 ML AMPUL NEB ONE ×4 (02:11→05:30)
[2019-02-12] MEDS ORDERED: METHYLPREDNISOLONE INJ 125 MG/2 ML SDV ONE (02:16)
[2019-02-12] MEDS ORDERED: FUROSEMIDE INJ/PF 40 MG/4 ML SDV ONE (02:16)
--- NOTE | 2019-02-12 02:52 | RADIOLOGY REPORT (SQ) ---
EXAM DESCRIPTION: X-ray single view chest. CLINICAL HISTORY: 48 years Female, INTUBATION COMPARISON: CT chest performed on 02/10/2019 TECHNIQUE: Single portable x-ray view of the chest performed on 02/12/2019 at 2:15 AM FINDINGS: The lungs are well expanded. There is bilateral perihilar airspace consolidation. The lateral costophrenic sulci are grossly clear. There is no evidence of a pneumothorax. The cardiac silhouette is markedly enlarged. There are remote postsurgical changes of the mediastinum. The mediastinal contours are normal. No acute osseous abnormality is identified. No focal soft tissue abnormalities are seen. Lines and tubes: The endotracheal tube appears to terminate at the level of the clavicular heads. A feeding tube tip appears to terminate in the distal esophagus. The tip is poorly visualized. There is a multilead left subclavian AICD. The right IJ central venous catheter tip overlies the region of the superior vena cava. IMPRESSION: 1. Bilateral perihilar airspace consolidation which may be due to edema, atelectasis or pneumonia. 2. Marked cardiomegaly. 3. Remote postsurgical changes of the mediastinum. 4. Life support lines and tubes as described above.
[2019-02-12 02:54] LABS: ARTERIAL BLOOD BASE EXCESS 3.9 mmol/L; ARTERIAL BLOOD H2CO3 2.11 mmol/L (1.05-1.35); ARTERIAL BLOOD HCO3 32.6 mmol/L (20-24); ARTERIAL BLOOD O2 SATURATION 82.9 % (94-98); ARTERIAL BLOOD PH 7.29 (7.35-7.45); ARTERIAL BLOOD PO2 53.8 mmHg (80-100); ARTERIAL BLOOD TOTAL CO2 34.8 mmol/L (21-25)
[2019-02-12 02:55] LABS: ARTERIAL BLOOD FIO2 100%
[2019-02-12] MEDS ORDERED: MIDAZOLAM HCL 50 MG/100 ML RTUINJ IV PRN (03:37)
[2019-02-12] MEDS ORDERED: ACETAMINOPHEN 650 MG SUPP.RECT PR ONE ×2 (03:40→05:00)
[2019-02-12] MEDS ORDERED: MIDAZOLAM HCL 50 MG/100 ML RTUINJ ONE (03:40)
[2019-02-12] MEDS ORDERED: MIDAZOLAM 2 MG/2 ML INJ IV ONE ×2 (04:30→05:00)
[2019-02-12 04:51] LABS: ARTERIAL BLOOD BASE EXCESS -0.7 mmol/L; ARTERIAL BLOOD H2CO3 1.27 mmol/L (1.05-1.35); ARTERIAL BLOOD HCO3 24.5 mmol/L (20-24); ARTERIAL BLOOD O2 SATURATION 90.3 % (94-98); ARTERIAL BLOOD PCO2 42.3 mmHg (35-45); ARTERIAL BLOOD PH 7.38 (7.35-7.45); ARTERIAL BLOOD PO2 59.4 mmHg (80-100); ARTERIAL BLOOD TOTAL CO2 25.8 mmol/L (21-25)
[2019-02-12 04:52] LABS: ARTERIAL BLOOD FIO2 100%
[2019-02-12] MEDS ORDERED: FENTANYL CITRATE/PF 600 MCG/60 ML BAG IV PRN (04:56)
[2019-02-12 04:57] LABS: APPEARANCE,URINE CLEAR; BILIRUBIN,URINE NEGATIVE (NEGATIVE); COLOR,URINE YELLOW; GLUCOSE, URINE NEGATIVE (NEGATIVE); KETONES,URINE NEGATIVE (NEGATIVE); PROTEIN,URINE 30 mg/dL (NEGATIVE); URINE SPECIFIC GRAVITY 1.013
[2019-02-12] MEDS ORDERED: FUROSEMIDE INJ/PF 40 MG/4 ML SDV IV ONE (05:00)
[2019-02-12] MEDS ORDERED: METHYLPREDNISOLONE INJ 125 MG/2 ML SDV IV ONE (05:00)
[2019-02-12] MEDS ORDERED: PIPERACILLIN/TAZOBACTAM 3.375 GM VIAL IV SCH (06:00)
--- NOTE | 2019-02-12 09:03 | Progress Note ---
Provider Note Provider Note: Procedures: Intubation and bronchoscopy with bronchial washing Indication: Hypoxic respiratory failure, requiring frequent suctioning in the past 24 hours Patient with persistent hypoxia on pulse ox with SPO2 of 87%, increased work of breathing utilizing inspiratory and expiratory muscle use, tachypnea with a res piratory rate in the mid 40s as well as tachycardia with a heart rate low 100s, who had self extubated earlier this morning and was previously tolerating BiPAP until this point. Nebulized treatments were provided for wheezing which improved, however patient overall clinical condition did not improve from a respiratory standpoint and the decision was made to intubate. Patient was informed beforehand of the procedure and need for intubation for which she was in agreement, stating she was not getting enough air. It was also discussed with her that she would need a bronchoscopy following intubation to suction out her lungs, for which she was also in agreement. All supplies and emergency medical equipment were obtained in preparation for intubation and bronchoscopy. The NG tube was placed on continuous wall suction to avoid gastric insufflation and aspiration, nasal cannula was applied for apneic oxygenation immediately after the BiPAP was removed to transition to [id number] ventilation for hyperoxygenation, optimizing her SPO2 prior to attempting intubation. The patient was intubated with a 7.5 mm endotracheal tube using video laryngoscopy with a first pass attempt. There were no secretions or signs of aspiration above the vocal cords. Bilateral breath sounds were auscultated, tube condensation was present with bag assisted ventilations, colorimetric changes were noted, equal chest rise and fall was observed, and chest x-ray confirmed successful placement of endotracheal tube. The patient continued to have hypoxia on pulse ox with an SPO2 of 86% with adequate sedation and remained paralyzed. Bronchoscopy was then performed with no evidence of mucous plug in the main left and right airways. However, there was notable edema of the left and right mainstem airways as well as erythema. At this time, RT administered multiple nebulized treatments, the nurse administered Solu-Medrol as well as Lasix, and bronchioloalveolar lavage was performed with multiple saline aliquots and no significant quantity or purulence of secretions noted. All subsegmental airways of both left and right lungs were examined to the best of my ability with the airway narrowing due to edema/erythema and 2 washings were performed, 1 from each lung given patient's change in condition. The patient is currently being treated for MRSA pneumonia. Hypoxia did not continue to improve and in fact, worsened well after the bronchoscopy was completed with an SPO2 in the 50s. The patient received more sedation and paralytics during this time frame, which did not seem to help. The patient was removed from the ventilator providing [id number] ventilations and the SPO2 improved to 88%. However, her saturation subsequently decreased again to 70% and the decision was made to change the ventilator setting to APRV as PRVC was not effective with the ongoing hypoxia despite a PEEP of 15. After several minutes on APRV, the patient's SPO2 slowly trended upward to 86%. Over the next 15 to 30 minutes, the SPO2 increased to 88% where it held for nearly an hour. Her SPO2 subsequently decreased to 80% for which the head of bed was decreased from 45 degrees down to 10 degrees to allow for better gas exchange in the posterior apical lung zones as they seem to be less affected by the pneumonia on imaging and her SPO2 increased to 93%. Will continue to monitor at this time. Total critical care time independent of the procedural time required for intubation and bronchoscopy was 140 minutes given patient's ongoing hypoxia requiring immediate interventions with constant assessment/reassessment. Without this care, she would have certainly experienced cardiac arrest. Discussed all of the above events with the Framing Manager this morning as they unfolded.
[2019-02-12 09:13] LABS: ARTERIAL BLOOD BASE EXCESS -0.6 mmol/L; ARTERIAL BLOOD FIO2 90%; ARTERIAL BLOOD H2CO3 1.64 mmol/L (1.05-1.35); ARTERIAL BLOOD HCO3 26.6 mmol/L (20-24); ARTERIAL BLOOD O2 SATURATION 77.5 % (94-98); ARTERIAL BLOOD PCO2 54.6 mmHg (35-45); ARTERIAL BLOOD PH 7.31 (7.35-7.45); ARTERIAL BLOOD PO2 46.4 mmHg (80-100); ARTERIAL BLOOD TOTAL CO2 28.2 mmol/L (21-25)
[2019-02-12] MEDS: LINEZOLID 600 MG/300 ML RTUPB IV SCH ×2 (09:16→21:38)
[2019-02-12] MEDS: MILRINONE LACTATE/D5W 20 MG/100 ML RTUINJ IV PRN ×2 (09:44→22:28)
[2019-02-12 10:28] LABS: URINE AMPHETAMINES SCREEN NEGATIVE; URINE BARBITURATES SCREEN NEGATIVE; URINE COCAINE SCREEN NEGATIVE; URINE METHADONE SCREEN NEGATIVE; URINE PHENCYCLIDINE SCREEN NEGATIVE
[2019-02-12 10:49] LABS: URINE BENZODIAZEPINES SCREEN UNCONFIRMED POSITIVE; URINE MARIJUANA (THC) SCREEN UNCONFIRMED POSITIVE
[2019-02-12] MEDS: MEROPENEM 1 GM in NORMAL SALINE 50 ML IV SCH ×2 (11:33→17:36)
[2019-02-12] MEDS: FAMOTIDINE INJ/PF 20 MG/2 ML SDV IV SCH ×2 (11:34→21:27)
[2019-02-12] MEDS: AMINO AC/PROTEIN HYDR/WHEY PRO 11 GM/45 ML PKT NG SCH ×4 (11:34→21:40)
[2019-02-12] MEDS: BUSPIRONE HCL 10 MG TABLET NG SCH ×2 (11:35→21:27)
[2019-02-12] MEDS: SACUBITRIL/VALSARTAN 97 MG/103 MG TABLET NG SCH (11:36)
[2019-02-12] MEDS: METOPROLOL TARTRATE 50 MG TABLET NG SCH (11:36)
[2019-02-12] MEDS: FENTANYL CITRATE/PF 600 MCG/60 ML BAG IV PRN (12:15)
[2019-02-12] MEDS: METHYLPREDNISOLONE INJ 125 MG/2 ML SDV IV SCH ×2 (14:44→21:27)
[2019-02-12 15:35] LABS: ARTERIAL BLOOD BASE EXCESS 5.6 mmol/L; ARTERIAL BLOOD H2CO3 1.69 mmol/L (1.05-1.35); ARTERIAL BLOOD HCO3 32.1 mmol/L (20-24); ARTERIAL BLOOD O2 SATURATION 76.4 % (94-98); ARTERIAL BLOOD PH 7.38 (7.35-7.45); ARTERIAL BLOOD PO2 42.8 mmHg (80-100); ARTERIAL BLOOD TOTAL CO2 33.8 mmol/L (21-25)
--- NOTE | 2019-02-12 15:38 | Progress Note ---
Provider Note Provider Note: Cardiology progress NOTE by Dr. Griselda Martin on 02/12/2019. SUBJECTIVE: The patient had self extubated her yesterday. She was initially treated with BiPAP but failed and had to be reintubated. The patient is on the ventilator now. There is no atrial or ventricular arrhythmias. There is no firing of the AICD. PHYSICAL EXAMINATION: The patient is morbidly obese. In no acute distress. Selected Entries 03/15/19 12:29 Temperature 98.0 F Temperature Oral Source Pulse Rate 66 Respiratory 18 Rate Blood Pressure 99/69 L Blood Pressure 79 Mean BP Location Right Arm BP Position Sitting O2 Sat by Pulse 100 Oximetry Oxygen Flow 4.00 Rate Oxygen Delivery Nasal Cannula Method HEAD: Is atraumatic normocephalic. EYES: Pupils are equal round regular reactive to light. HEENT is negative. SKIN: There is no skin rashes or skin l esions. There is no particular ecchymosis. NECK: Is supple. There is mild JVD present. Carotids are equal there is no bruits. There is no lymphadenopathy. There is no goiter. There is no accessory muscle respiration use. Trachea central. LUNGS: Shows bibasilar rales of CHF. There is a dry crackles scattered, and wheezing throughout the lung. There is also dry crackles in the right lower lobe. There is diminished air entry. On percussion there is hyperresonance. On palpation there is no chest wall tenderness. HEART: S1-S2 is heard. There is no S3 gallop. There is no S4 gallop. There is systolic murmur mitral regurgitation tricuspid regurgitation present. There is no aortic stenosis murmur. There is no aortic insufficiency murmur. There is no rub. ABDOMEN: Is obese. Nontender. There is no hepatosplenomegaly. Bowel sounds are well heard. There is no rebound guarding or rigidity. EXTREMITIES: Femorals are deep. Femorals are diminished. There is no femoral bruits. There is decreased leg pulses. There is mild pedal edema. There is no DVT or cellulitis. There is no calf tenderness. OPERATING ROOM REGISTERED NURSE and psychiatric examination not performed due to patient being on the ventilator, and on sedation. Lab values and x-rays reviewed. IMPRESSION/RECOMMENDATION: 1. Acute on chronic respiratory failure. This is multifactorial secondary to the causes listed below. Continue ventilator support and supplemental oxygen. 2. Acute on chronic systolic heart failure. Patient with LV ejection fraction of 25%. Agree with continuing aggressive diuresis with Lasix. And continue the patient's Entresto and beta-rip. Continue the patient on milrinone. If his systolic blood pressure remains high consider starting IV nitroglycerin. 3. Acute exacerbation COPD: Continue bronchodilators and ventilatory support. 4. MRSA pneumonia: Continue antibiotics. 5. 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 Hence would recommend discontinue the patient's amiodarone which has been done. Continue steroids. 6. Acute on chronic kidney disease: Watch renal function as we implement aggressive diuresis. 7. Cardiomyopathy with severely reduced LV ejection fraction. Continue milrinone. 8. Paroxysmal atrial fibrillation: Continue beta-rip and Eliquis. 9. History of ventricular tachycardia, The patient has an AICD placed. If there is recurrence of ventricular tachycardia or major ventricular ectopic activity then would start the patient on small dose of sotalol. Would avoid amiodarone. 10. Hypertension: Blood pressure well controlled, on current medications. 11. Coronary artery disease: History of [place] and history of coronary bypass graft surgery. No evidence of acute coronary syndrome/non-ST ST elevation [place] this admission. 12. Obstructive sleep apnea. Note patient is noncompliant with CPAP. Most likely has significant pulmonary hypertension. 13. AICD placement: Note the patient's basal rate is around 60 bpm. If the patient's heart failure continues then would recommend increasing the basal heart rate to 80 bpm to help combat the heart failure along with diuretics. 14. Morbid obesity. Medications reviewed. Medical regimen and management plan discussed with sales coordinator. Medical decision making at present is of high complexity. 40 minutes spent on this patient more than 50% of time spent direct patient care. Will follow.
[2019-02-12 15:58] LABS: ARTERIAL BLOOD FIO2 100
[2019-02-12 16:23] LABS: ARTERIAL BLOOD BASE EXCESS 7.3 mmol/L; ARTERIAL BLOOD HCO3 32.8 mmol/L (20-24); ARTERIAL BLOOD O2 SATURATION 95.4 % (94-98); ARTERIAL BLOOD PCO2 49.9 mmHg (35-45); ARTERIAL BLOOD PH 7.44 (7.35-7.45); ARTERIAL BLOOD PO2 75.5 mmHg (80-100); ARTERIAL BLOOD TOTAL CO2 34.3 mmol/L (21-25)
[2019-02-12 16:24] LABS: ARTERIAL BLOOD FIO2 80
[2019-02-12] MEDS ORDERED: DEXMEDETOMIDINE IN 0.9 % NACL 400 MCG/100 ML RTUPB IV ONE (17:14)
[2019-02-12] MEDS: DEXMEDETOMIDINE IN 0.9 % NACL 400 MCG/100 ML RTUPB IV PRN (17:37)
[2019-02-12 18:58] LABS: ARTERIAL BLOOD BASE EXCESS 6.1 mmol/L; ARTERIAL BLOOD H2CO3 1.44 mmol/L (1.05-1.35); ARTERIAL BLOOD HCO3 31.3 mmol/L (20-24); ARTERIAL BLOOD O2 SATURATION 95.1 % (94-98); ARTERIAL BLOOD PCO2 47.8 mmHg (35-45); ARTERIAL BLOOD PH 7.43 (7.35-7.45); ARTERIAL BLOOD PO2 73.6 mmHg (80-100); ARTERIAL BLOOD TOTAL CO2 32.8 mmol/L (21-25)
[2019-02-12 18:59] LABS: ARTERIAL BLOOD FIO2 70
[2019-02-12] MEDS ORDERED: ALBUMIN HUMAN 12.5 GM/50 ML RTUINJ IV PRN (20:53)
--- NOTE | 2019-02-12 21:03 | PDOC CRITICAL CARE PROG REPORT ---
General Date:: 02/12/19 ICU Day:: 4 Ventilator Day:: 4 Hospital Day:: 4 Resuscitation Status: Full Code Medical Power of Quality Systems Technician: DaughterAparna Events in the past 12 to 24 Hours:: Patient self extubated yesterday and then became more obtunded. She was initially placed on BiPAP when she had improvement in her neurological status but failed. Ultimately she had to be reintubated and has had significant elevation and plateau pressures and hypoxia culminating in the need for advanced chemical ventilation (APRV) She has not been hypotensive and she has been sedated heavily on Versed. Review of systems relevant to events:: APRV currently set at a 35 P high. P low adjusted to 0 from 5 lowest time low to 0.5 seconds. Time high is at 4 seconds. BG noted. She is on no vasopressors at this time. Reason for ICU Addmission:: Respiratory failure - Medications: Medications reviewed and adjusted accordingly: Yes Vasopressors:: None Sedation:: Versed Physical Exam Vital Signs: Temp Pulse Resp BP Pulse Ox 102.6 F H 75 70 H 131/89 H 84 L 02/12/19 06:06 02/11/19 23:00 02/12/19 06:16 02/12/19 06:06 02/12/19 06:16 Intake & Output 02/11/19 02/12/19 02/13/19 06:59 06:59 06:59 Intake Total 487 350 Output Total 2350 1865 Balance -1863 -1515 Weight 107.4 kg 104.8 kg Weight/Height Weight 104.8 kg Height 5 ft 4 in General appearance: PRESENT: no acute distress, morbidly obese Exam: Intubated, obese appearing older appearing nontoxic 48-year-old black female no active distress. Eye exam: PRESENT: conjunctival injection, conjunctiva pink, PERRLA. ABSENT: nystagmus, scleral icterus Mouth exam: PRESENT: dry mucosa, neck supple Neck exam: ABSENT: carotid bruit, JVD, lymphadenopathy, thyromegaly Respiratory exam: PRESENT: crackles, rhonchi, unlabored. ABSENT: accessory muscle use, rales, wheezes Cardiovascular exam: PRESENT: RRR, +S1 - Critical Care Echo shows markedly reduced EF, biventricular, IVC dilated, no changes with ventilator pressure changes, Poor RV function, +S2. ABSENT: systolic murmur Pulses: ABSENT: normal dorsalis pedis pul, +1 pedal pulses bilateral GI/Abdominal exam: PRESENT: normal bowel sounds, soft. ABSENT: ascites, distended, guarding, mass, organolmegaly, rebound, tenderness Rectal exam: PRESENT: deferred Gentrourinary exam: PRESENT: indwelling catheter Extremities exam: ABSENT: pedal edema Musculoskeletal exam: ABSENT: deformity, dislocation Neurological exam: PRESENT: altered - Sedated. GCS: Focused psych exam: ABSENT: psychomotor agitation, restlessness Skin exam: PRESENT: normal color. ABSENT: cyanosis, mottled, pallor Tubes/Lines: PRESENT: Endotracheal Tube, Central Line, Arterial Catheter, Nasogastic Tube, Other - ritter catheter Laboratory/Radiographs Laboratory Results: 02/11/19 03:18 02/11/19 03:18 02/11/19 02/11/19 02/12/19 11:50 15:30 02:28 Carbonic Acid 1.51 H 1.56 H 2.11 H HCO3/H2CO3 Ratio 21:1 21:1 15:1 ABG pH 7.44 7.43 7.29 L ABG pCO2 50.2 H 51.7 H 70.0 H* ABG pO2 68.4 L 63.2 L 53.8 L ABG HCO3 33.0 H 33.5 H 32.6 H ABG O2 Saturation 94.0 92.4 L 82.9 L ABG Base Excess 7.6 7.8 3.9 FiO2 55 55% 100% Urine Color Urine Appearance Urine pH Ur Specific [place] Urine Protein Urine Glucose (UA) Urine Ketones Urine Blood Urine RBC (Auto) 02/12/19 02/12/19 04:30 04:37 Carbonic Acid 1.27 HCO3/H2CO3 Ratio 19:1 ABG pH 7.38 ABG pCO2 42.3 ABG pO2 59.4 L ABG HCO3 24.5 H ABG O2 Saturation 90.3 L ABG Base Excess -0.7 FiO2 100% Urine Color YELLOW Urine Appearance CLEAR Urine pH 5.0 Ur Specific [place] 1.013 Urine Protein 30 H Urine Glucose (UA) NEGATIVE Urine Ketones NEGATIVE Urine Blood SMALL H Urine RBC (Auto) 1 02/08/19 05:30 Tracheal Aspirate Gram Stain - Final 02/08/19 05:30 Tracheal Aspirate Sputum Culture - Final Mrsa (Meth Resis Staph Aureus) Normal Evelyn 02/08/19 02/08/19 02/08/19 04:06 04:06 05:30 Creatine Kinase Cancelled 33 CK-MB (CK-2) Cancelled Troponin I Cancelled NT-Pro-B Natriuret Pep Cancelled 02/08/19 02/11/19 05:45 03:18 Creatine Kinase CK-MB (CK-2) < 0.22 Troponin I 0.043 NT-Pro-B Natriuret Pep 7610 H 1970 H Impressions: Chest CT 02/10/19 00:00 IMPRESSION: No pneumothorax. No pleural effusions. Bibasilar consolidation in both lower lobes. Slightly increased interstitial thickening, basilar predominance. Scattered pulmonary cysts and ground-glass opacities are again noted. Tubes and lines in expected positions. Chest X-Ray 02/12/19 00:00 IMPRESSION: 1. Bilateral perihilar airspace consolidation which may be due to edema, atelectasis or pneumonia. 2. Marked cardiomegaly. 3. Remote postsurgical changes of the mediastinum. 4. Life support lines and tubes as described above. 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 (3) Ischemic cardiomyopathy with implantable cardioverter-defibrillator (ICD) Is this a current diagnosis for this admission?: Yes (4) Cardiomyopathy, ischemic Is this a current diagnosis for this admission?: Yes Plan: Bi-ventricular, chronic systolic (5) Atrial fibrillation Qualifiers: Atrial fibrillation type: longstanding persistent Qualified Code(s): I48.11 - Longstanding persistent atrial fibrillation Is this a current diagnosis for this admission?: Yes Plan: Hold NOAC, start heparin in 12 hours Plan Summary: 02.12.19: Patient has significant hypoxia with a PF ratio consistent with [employer] criteria severe ARDS. Have changed some vent settings to support better ventilation and oxygenation. O2 is now being weaned. On critical care ultrasound she appears to have biventricular systolic dysfun ction which we have known about in the past. Given the need for APRV and ARDS induced right ventricular dysfunction we have started her on milrinone to help support forward flow. We will monitor her response to this. Had been diuresed and her IVC is still dilated however she is on APRV which will augment preload. Of interest that she has not become hypotensive. To new to monitor for decompensation including pneumothorax. Concerned that this represents amiodarone toxicity of the lung have continued high-dose steroids which is the only known treatment. At this point she is too hypoxic to allow for bronchoscopy to obtain CD4 CD8 counts. Have attempted to contact family and him waiting call to update them. Critical Time Critical Time (minutes): 90 Level of Care: ICU Anticipated discharge: Acute Rehab -: 1. The care of a critical patient is a dynamic process. This note is a open claims representative synopsis but static in nature. The timeframe for treatments given in order is not necessary the actual time these treatments may have been done. 2. This patient requires critical care secondary to ongoing requirements for therapy not offered or safe outside the critical care environment. Transfer to a lower level of care with altered life or limb morbidity and mortality. 3. Multidisciplinary rounds completed. 4. ABCDE bundle addressed.
[2019-02-13 01:10] LABS: ARTERIAL BLOOD BASE EXCESS 8.2 mmol/L; ARTERIAL BLOOD H2CO3 1.38 mmol/L (1.05-1.35); ARTERIAL BLOOD HCO3 32.8 mmol/L (20-24); ARTERIAL BLOOD O2 SATURATION 97.1 % (94-98); ARTERIAL BLOOD PCO2 45.9 mmHg (35-45); ARTERIAL BLOOD PH 7.47 (7.35-7.45); ARTERIAL BLOOD PO2 87.4 mmHg (80-100); ARTERIAL BLOOD TOTAL CO2 34.2 mmol/L (21-25)
[2019-02-13 01:13] LABS: ARTERIAL BLOOD FIO2 70%
[2019-02-13] MEDS: DEXMEDETOMIDINE IN 0.9 % NACL 400 MCG/100 ML RTUPB IV PRN ×9 (01:20→22:24)
[2019-02-13] MEDS ORDERED: ALBUMIN HUMAN 500 ML IV ONE ×2 (01:24→01:30)
[2019-02-13 02:21] LABS: ANION GAP 10 (5-19); BLOOD UREA NITROGEN 62 mg/dL (7-20); CALCIUM 8.3 mg/dL (8.4-10.2); CARBON DIOXIDE 35 mmol/L (22-30); CHLORIDE 104 mmol/L (98-107); GLUCOSE 188 mg/dL (75-110)
[2019-02-13 02:47] LABS: POTASSIUM 2.8 mmol/L (3.6-5.0)
[2019-02-13] MEDS: MEROPENEM 1 GM in NORMAL SALINE 50 ML IV SCH ×3 (03:01→17:12)
[2019-02-13] MEDS ORDERED: NOREPINEPHRINE BITARTRATE INJ/PF 4 MG/4 ML SDV IV ONE (03:02)
[2019-02-13] MEDS ORDERED: DEXTROSE 5% IV PRN ×2 (03:12)
[2019-02-13] MEDS ORDERED: NOREPINEPHRINE BITARTRATE IV PRN ×2 (03:12)
[2019-02-13] MEDS ORDERED: WATER IV PRN ×2 (03:12)
[2019-02-13] MEDS: POTASSI CL 20 MEQ/50 ML RIDER 20 MEQ/50 ML RTUPB IV SCH ×2 (05:00→05:51)
[2019-02-13] MEDS: METHYLPREDNISOLONE INJ 125 MG/2 ML SDV IV SCH ×3 (05:51→22:31)
[2019-02-13 07:20] LABS: HEMATOCRIT 32.3 % (36.0-47.0); HEMOGLOBIN 10.3 g/dL (12.0-15.5); MEAN CORPUSCULAR HEMOGLOBIN 28.6 pg (27.0-33.4); MEAN CORPUSCULAR HGB CONC 31.8 g/dL (32.0-36.0); MEAN CORPUSCULAR VOLUME 90 fl (80-97); PLATELET COUNT 135 10^3/uL (150-450); RED BLOOD COUNT 3.59 10^6/uL (3.72-5.28); RED CELL DISTRIBUTION WIDTH 19.4 % (11.5-14.0); WHITE BLOOD COUNT 5.9 10^3/uL (4.0-10.5)
[2019-02-13 07:25] LABS: ARTERIAL BLOOD BASE EXCESS 7.5 mmol/L; ARTERIAL BLOOD H2CO3 1.42 mmol/L (1.05-1.35); ARTERIAL BLOOD HCO3 32.4 mmol/L (20-24); ARTERIAL BLOOD O2 SATURATION 97.6 % (94-98); ARTERIAL BLOOD PCO2 47.3 mmHg (35-45); ARTERIAL BLOOD PH 7.45 (7.35-7.45); ARTERIAL BLOOD PO2 97.1 mmHg (80-100); ARTERIAL BLOOD TOTAL CO2 33.9 mmol/L (21-25)
[2019-02-13 07:26] LABS: ARTERIAL BLOOD FIO2 60%
[2019-02-13 07:28] LABS: INTERNATIONAL RATION (INR) 1.36; PARTIAL THROMBOPLASTIN TIME 32.6 SEC (23.5-35.8); PROTHROMBIN TIME 16.9 SEC (11.4-15.4)
[2019-02-13 07:48] LABS: ABSOLUTE LYMPHOCYTES# (MANUAL) 0.2 10^3/uL (0.5-4.7); ABSOLUTE MONOCYTES # (MANUAL) 0.1 10^3/uL (0.1-1.4); BAND NEUTROPHILS % (MANUAL) 2 % (3-5); BASOPHILS % (MANUAL) 0 % (0-2); EOSINOPHILS % (MANUAL) 0 % (0-6); LYMPHOCYTES % (MANUAL) 4 % (13-45); MONOCYTES % (MANUAL) 1 % (3-13); NUCLEATED RED BLOOD CELLS 1 /100 WBC (0); SEGMENTED NEUTROPHILS % (MAN) 93 % (42-78); TOTAL CELLS COUNTED 100
[2019-02-13 07:49] LABS: ANISOCYTOSIS 1+; OVALOCYTES SLIGHT; PLATELET COMMENT DECREASED; POIKILOCYTOSIS SLIGHT; POLYCHROMASIA SLIGHT
[2019-02-13 07:56] LABS: ALBUMIN 3.4 g/dL (3.5-5.0); ALKALINE PHOSPHATASE 142 U/L (38-126); ANION GAP 11 (5-19); ASPARTATE AMINO TRANSFERASE 433 U/L (14-36); BILIRUBIN,DIRECT 2.2 mg/dL (0.0-0.4); BILIRUBIN,TOTAL 3.2 mg/dL (0.2-1.3); BLOOD UREA NITROGEN 59 mg/dL (7-20); CALCIUM 8.7 mg/dL (8.4-10.2); CARBON DIOXIDE 34 mmol/L (22-30); CHLORIDE 105 mmol/L (98-107); GLUCOSE 179 mg/dL (75-110); PHOSPHORUS 3.4 mg/dL (2.5-4.5); TOTAL PROTEIN 6.6 g/dL (6.3-8.2)
[2019-02-13 08:15] LABS: POTASSIUM 3.9 mmol/L (3.6-5.0)
--- NOTE | 2019-02-13 08:24 | Progress Note ---
Provider Note Provider Note: Date and time of procedure: 02/13/2019 2:15 AM Procedure: Arterial line insertion Indication: Hemodynamic instability Analgesia: 1% lidocaine without epinephrine, 3 mL used Consent: Was attempted to contact next of kin listed in medical record, but phone number listed was out of service. Proceeded with procedure given medical necessity with ongoing shock. Patient placed in proper procedural position. Ultrasound utilized to identify left radial artery with no evidence of thrombus. The insertion site was anesthetized in preparation for the introducer needle. A 20-gauge introducer needle with a preloaded guidewire an 18-gauge catheter was advanced and visualized entering the left radial artery with a flash of blood. The guidewire was deployed through the needle into the left radial artery and confirmed to be properly placed in 2 views. Next, the 18-gauge catheter was deployed over the wire into the left radial artery and the guidewire and needle were subsequently removed, noting pulsatile blood coming from the catheter. Pressure tubing was hooked up to the catheter, 2 sutures were placed for securement, a Biopatch was applied, followed by a sterile transparent occlusive dressing. Good arterial waveform on the monitor, patient tolerated procedure well. Estimated blood loss 3 mL.
--- NOTE | 2019-02-13 08:28 | RADIOLOGY REPORT (SQ) ---
EXAM DESCRIPTION: CHEST SINGLE VIEW COMPLETED DATE/TIME: 02/13/2019 6:18 am REASON FOR STUDY: ards COMPARISON: 02/12/2019 NUMBER OF VIEWS: One view. TECHNIQUE: Single frontal radiographic image of the chest acquired. LIMITATIONS: None. FINDINGS: LUNGS AND PLEURA: Stable appearance. MEDIASTINUM AND HILAR STRUCTURES: Stable heart size and mediastinal structures. HEART AND VASCULAR STRUCTURES: Stable appearance. SUPPORT DEVICES: Appropriate location without change. BONES: No acute findings. OTHER: No other significant finding. IMPRESSION: STABLE APPEARANCE OF THE CHEST. SUPPORT DEVICES UNCHANGED. TECHNICAL DOCUMENTATION: JOB ID: [id number]- All Rights Reserved Reading location - IP/workstation name: [email or web address]
[2019-02-13] MEDS: MILRINONE LACTATE/D5W 20 MG/100 ML RTUINJ IV PRN ×2 (09:01→23:40)
[2019-02-13] MEDS: FAMOTIDINE INJ/PF 20 MG/2 ML SDV IV SCH ×2 (09:11→22:31)
[2019-02-13] MEDS: SACUBITRIL/VALSARTAN 97 MG/103 MG TABLET NG SCH (09:12)
[2019-02-13] MEDS: BUSPIRONE HCL 10 MG TABLET NG SCH ×2 (09:12→22:31)
[2019-02-13] MEDS: AMINO AC/PROTEIN HYDR/WHEY PRO 11 GM/45 ML PKT NG SCH ×4 (09:12→22:31)
[2019-02-13] MEDS: LINEZOLID 600 MG/300 ML RTUPB IV SCH ×2 (10:15→22:31)
[2019-02-13] MEDS: METOPROLOL TARTRATE 50 MG TABLET NG SCH (10:16)
[2019-02-13 11:26] LABS: ARTERIAL BLOOD BASE EXCESS 7.3 mmol/L; ARTERIAL BLOOD H2CO3 1.35 mmol/L (1.05-1.35); ARTERIAL BLOOD HCO3 31.8 mmol/L (20-24); ARTERIAL BLOOD PCO2 44.8 mmHg (35-45); ARTERIAL BLOOD PH 7.47 (7.35-7.45); ARTERIAL BLOOD PO2 70.5 mmHg (80-100); ARTERIAL BLOOD TOTAL CO2 33.2 mmol/L (21-25)
[2019-02-13 11:27] LABS: ARTERIAL BLOOD FIO2 50%
[2019-02-13 16:36] LABS: ANTIMYELOPEROXIDASE (MPO) AB <9.0 U/mL (0.0-9.0); CYTOPLASMIC (C-ANCA) <1:20 titer (Neg:<1:20)
[2019-02-13] MEDS: ACETAMINOPHEN 325 MG SUPP.RECT PR PRN (17:23)
[2019-02-13 17:58] LABS: ARTERIAL BLOOD BASE EXCESS 5.3 mmol/L; ARTERIAL BLOOD FIO2 50; ARTERIAL BLOOD H2CO3 1.26 mmol/L (1.05-1.35); ARTERIAL BLOOD HCO3 29.5 mmol/L (20-24); ARTERIAL BLOOD O2 SATURATION 93.5 % (94-98); ARTERIAL BLOOD PCO2 41.7 mmHg (35-45); ARTERIAL BLOOD PH 7.47 (7.35-7.45); ARTERIAL BLOOD PO2 63.5 mmHg (80-100); ARTERIAL BLOOD TOTAL CO2 30.8 mmol/L (21-25)
--- NOTE | 2019-02-13 19:34 | Progress Note ---
Provider Note Provider Note: Cardiology progress note by Dr. Griselda Cruz on 02/13/2019. OBJECTIVE: The patient is back on the ventilator. In view of the increased lung pressures and desaturation patient is been started on milrinone with improvement. Her urine output is also picked up. There is no arrhythmia seen on the monitor. There is no firing of the AICD. Physical EXAMINATION: The patient is morbidly obese. She is on the ventilator she is intubated and sedated. Selected Entries 02/13/19 02/13/19 16:00 16:57 Temperature 101.1 F H Temperature Core Source Pulse Rate 61 Respiratory 14 Rate Blood Pressure 164/87 H [Left Upper Arm ] Blood Pressure 112 Mean [Left Upper Arm] Blood Pressure Supine Position [Left Upper Arm] O2 Sat by Pulse 95 Oximetry Oxygen Delivery Mechanical Method ( Ventilator includes room air) Fraction of 50 Inspired Oxygen (FIO2) HEAD: Is atraumatic normocephalic. EYES: Pupils are equal round regular reactive to light. HEENT is negative. SKIN: There is no skin rashes or skin lesions. There is no particular ecchymosis. NECK: Is supple. There is mild JVD present. Carotids are equal there is no bruits. There is no lymphadenopathy. There is no goiter. There is no accessory muscle respiration use. Trachea central. LUNGS: Shows bibasilar rales of CHF. There is a dry crackles scattered, and wheezing throughout the lung. There is also dry crackles in the right lower lobe. There is diminished air entry. On percussion there is hyperresonance. On palpation there is no chest wall tenderness. HEART: S1-S2 is heard. There is no S3 gallop. There is no S4 gallop. There is systolic murmur mitral regurgitation tricuspid regurgitation present. There is no aortic stenosis murmur. There is no aortic insufficiency murmur. There is no rub. ABDOMEN: Is obese. Nontender. There is no hepatosplenomegaly. Bowel sounds are well heard. There is no rebound guarding or rigidity. EXTREMITIES: Femorals are deep. Femorals are diminished. There is no femoral bruits. There is decreased leg pulses. There is mild pedal edema. There is no DVT or cellulitis. There is no calf tenderness. FIELD TECHNICIAN and psychiatric examination not performed due to patient being on the ventilator, and on sedation. Labs- All tests 24 hr 02/13/19 02/13/19 02/13/19 01:22 01:22 01:22 WBC RBC Hgb Hct MCV MCH MCHC RDW Plt Count Lymph % (Auto) Bay % (Auto) Eos % (Auto) Baso % (Auto) Absolute Neuts (auto) Absolute Lymphs (auto) Absolute Monos (auto) Absolute Eos (auto) Absolute Basos (auto) Total Counted Seg Neutrophils % Seg Neuts % (Manual) Band Neutrophils % Lymphocytes % (Manual) Monocytes % (Manual) Eosinophils % (Manual) Basophils % (Manual) Abs Neuts (Manual) Abs Lymphs (Manual) Abs Monocytes (Manual) Absolute Eos (Manual) Abs Basophils (Manual) Nucleated RBCs Platelet Comment Polychromasia Poikilocytosis Anisocytosis Ovalocytes PT INR APTT Carbonic Acid HCO3/H2CO3 Ratio ABG pH ABG pCO2 ABG pO2 ABG HCO3 ABG Total CO2 ABG O2 Saturation ABG Base Excess FiO2 Sodium 149.4 H Potassium 2.8 L* Chloride 104 Carbon Dioxide 35 H Anion Gap 10 BUN 62 H Creatinine 2.26 H Est GFR ( Amer) 28 L Est GFR (MDRD) Non-Af 23 L Glucose 188 H Lactic Acid 2.9 H Calcium 8.3 L Phosphorus Magnesium Total Bilirubin Direct Bilirubin Neonat Total Bilirubin Neonat Direct Bilirubin Neonat Indirect Bili AST ALT Alkaline Phosphatase Ammonia NT-Pro-B Natriuret Pep 37017 H Total Protein Albumin Urine Color Urine Appearance Urine pH Ur Specific [place] Urine Protein Urine Glucose (UA) Urine Ketones Urine Blood Urine Nitrite Urine Bilirubin Urine Urobilinogen Ur Leukocyte Esterase Urine WBC (Auto) Urine RBC (Auto) Urine Mucus (Auto) Urine Ascorbic Acid 02/13/19 02/13/19 02/13/19 06:51 06:51 06:51 WBC 5.9 RBC 3.59 L Hgb 10.3 L Hct 32.3 L MCV 90 MCH 28.6 MCHC 31.8 L RDW 19.4 H Plt Count 135 L Lymph % (Auto) Not Reportable [place] % (Auto) Not Reportable Eos % (Auto) Not Reportable Baso % (Auto) Not Reportable Absolute Neuts (auto) Not Reportable Absolute Lymphs (auto) Not Reportable Absolute Monos (auto) Not Reportable Absolute Eos (auto) Not Reportable Absolute Basos (auto) Not Reportable Total Counted 100 Seg Neutrophils % Not Reportable Seg Neuts % (Manual) 93 H Band Neutrophils % 2 L Lymphocytes % (Manual) 4 L Monocytes % (Manual) 1 L Eosinophils % (Manual) 0 Basophils % (Manual) 0 Abs Neuts (Manual) 5.6 Abs Lymphs (Manual) 0.2 L Abs Monocytes (Manual) 0.1 Absolute Eos (Manual) 0.0 Abs Basophils (Manual) 0.0 Nucleated RBCs 1 Platelet Comment DECREASED Polychromasia SLIGHT Poikilocytosis SLIGHT Anisocytosis 1+ Ovalocytes SLIGHT PT INR APTT Carbonic Acid 1.42 H HCO3/H2CO3 Ratio 22:1 ABG pH 7.45 ABG pCO2 47.3 H ABG pO2 97.1 ABG HCO3 32.4 H ABG Total CO2 33.9 H ABG O2 Saturation 97.6 ABG Base Excess 7.5 FiO2 60% Sodium Potassium Chloride Carbon Dioxide Anion Gap BUN Creatinine Est GFR ( Amer) Est GFR (MDRD) Non-Af Glucose Lactic Acid Calcium Phosphorus Magnesium Total Bilirubin Direct Bilirubin Neonat Total Bilirubin Neonat Direct Bilirubin Neonat Indirect Bili AST ALT Alkaline Phosphatase Ammonia 29.2 NT-Pro-B Natriuret Pep Total Protein Albumin Urine Color Urine Appearance Urine pH Ur Specific [place] Urine Protein Urine Glucose (UA) Urine Ketones Urine Blood Urine Nitrite Urine Bilirubin Urine Urobilinogen Ur Leukocyte Esterase Urine WBC (Auto) Urine RBC (Auto) Urine Mucus (Auto) Urine Ascorbic Acid 02/13/19 02/13/19 02/13/19 06:51 06:51 06:51 WBC RBC Hgb Hct MCV MCH MCHC RDW Plt Count Lymph % (Auto) Bay % (Auto) Eos % (Auto) Baso % (Auto) Absolute Neuts (auto) Absolute Lymphs (auto) Absolute Monos (auto) Absolute Eos (auto) Absolute Basos (auto) Total Counted Seg Neutrophils % Seg Neuts % (Manual) Band Neutrophils % Lymphocytes % (Manual) Monocytes % (Manual) Eosinophils % (Manual) Basophils % (Manual) Abs Neuts (Manual) Abs Lymphs (Manual) Abs Monocytes (Manual) Absolute Eos (Manual) Abs Basophils (Manual) Nucleated RBCs Platelet Comment Polychromasia Poikilocytosis Anisocytosis Ovalocytes PT 16.9 H INR 1.36 APTT 32.6 Carbonic Acid HCO3/H2CO3 Ratio ABG pH ABG pCO2 ABG pO2 ABG HCO3 ABG Total CO2 ABG O2 Saturation ABG Base Excess FiO2 Sodium 150.1 H Potassium 3.9 D Chloride 105 Carbon Dioxide 34 H Anion Gap 11 BUN 59 H Creatinine 2.09 H Est GFR ( Amer) 31 L Est GFR (MDRD) Non-Af 25 L Glucose 179 H Lactic Acid 2.6 H Calcium 8.7 Phosphorus 3.4 Magnesium 2.6 H Total Bilirubin 3.2 H Direct Bilirubin 2.2 H Neonat Total Bilirubin Not Reportable Neonat Direct Bilirubin Not Reportable Neonat Indirect Bili Not Reportable AST 433 H ALT 586 Alkaline Phosphatase 142 H Ammonia NT-Pro-B Natriuret Pep Total Protein 6.6 Albumin 3.4 L Urine Color Urine Appearance Urine pH Ur Specific [place] Urine Protein Urine Glucose (UA) Urine Ketones Urine Blood Urine Nitrite Urine Bilirubin Urine Urobilinogen Ur Leukocyte Esterase Urine WBC (Auto) Urine RBC (Auto) Urine Mucus (Auto) Urine Ascorbic Acid 02/13/19 02/13/19 02/13/19 11:00 17:26 20:32 WBC 4.0 RBC 3.73 Hgb 10.7 L Hct 33.6 L MCV 90 MCH 28.8 MCHC 32.0 RDW 19.4 H Plt Count 139 L Lymph % (Auto) 6.5 L [place] % (Auto) 5.9 Eos % (Auto) 0.0 Baso % (Auto) 0.2 Absolute Neuts (auto) 3.5 Absolute Lymphs (auto) 0.3 L Absolute Monos (auto) 0.2 Absolute Eos (auto) 0.0 Absolute Basos (auto) 0.0 Total Counted Seg Neutrophils % 87.4 H Seg Neuts % (Manual) Band Neutrophils % Lymphocytes % (Manual) Monocytes % (Manual) Eosinophils % (Manual) Basophils % (Manual) Abs Neuts (Manual) Abs Lymphs (Manual) Abs Monocytes (Manual) Absolute Eos (Manual) Abs Basophils (Manual) Nucleated RBCs Platelet Comment Polychromasia Poikilocytosis Anisocytosis Ovalocytes PT INR APTT Carbonic Acid 1.35 1.26 HCO3/H2CO3 Ratio 23:1 23:1 ABG pH 7.47 H 7.47 H ABG pCO2 44.8 41.7 ABG pO2 70.5 L 63.5 L ABG HCO3 31.8 H 29.5 H ABG Total CO2 33.2 H 30.8 H ABG O2 Saturation 95.0 93.5 L ABG Base Excess 7.3 5.3 FiO2 50% 50 Sodium Potassium Chloride Carbon Dioxide Anion Gap BUN Creatinine Est GFR ( Amer) Est GFR (MDRD) Non-Af Glucose Lactic Acid Calcium Phosphorus Magnesium Total Bilirubin Direct Bilirubin Neonat Total Bilirubin Neonat Direct Bilirubin Neonat Indirect Bili AST ALT Alkaline Phosphatase Ammonia NT-Pro-B Natriuret Pep Total Protein Albumin Urine Color Urine Appearance Urine pH Ur Specific [place] Urine Protein Urine Glucose (UA) Urine Ketones Urine Blood Urine Nitrite Urine Bilirubin Urine Urobilinogen Ur Leukocyte Esterase Urine WBC (Auto) Urine RBC (Auto) Urine Mucus (Auto) Urine Ascorbic Acid 02/13/19 02/13/19 20:32 20:32 WBC RBC Hgb Hct MCV MCH MCHC RDW Plt Count Lymph % (Auto) [place] % (Auto) Eos % (Auto) Baso % (Auto) Absolute Neuts (auto) Absolute Lymphs (auto) Absolute Monos (auto) Absolute Eos (auto) Absolute Basos (auto) Total Counted Seg Neutrophils % Seg Neuts % (Manual) Band Neutrophils % Lymphocytes % (Manual) Monocytes % (Manual) Eosinophils % (Manual) Basophils % (Manual) Abs Neuts (Manual) Abs Lymphs (Manual) Abs Monocytes (Manual) Absolute Eos (Manual) Abs Basophils (Manual) Nucleated RBCs Platelet Comment Polychromasia Poikilocytosis Anisocytosis Ovalocytes PT 15.4 INR 1.21 APTT 28.2 Carbonic Acid HCO3/H2CO3 Ratio ABG pH ABG pCO2 ABG pO2 ABG HCO3 ABG Total CO2 ABG O2 Saturation ABG Base Excess FiO2 Sodium Potassium Chloride Carbon Dioxide Anion Gap BUN Creatinine Est GFR ( Amer) Est GFR (MDRD) Non-Af Glucose Lactic Acid Calcium Phosphorus Magnesium Total Bilirubin Direct Bilirubin Neonat Total Bilirubin Neonat Direct Bilirubin Neonat Indirect Bili AST ALT Alkaline Phosphatase Ammonia NT-Pro-B Natriuret Pep Total Protein Albumin Urine Color YELLOW Urine Appearance CLEAR Urine pH 6.0 Ur Specific [place] 1.020 Urine Protein 100 H Urine Glucose (UA) 50 H Urine Ketones NEGATIVE Urine Blood SMALL H Urine Nitrite NEGATIVE Urine Bilirubin NEGATIVE Urine Urobilinogen 2.0 H Ur Leukocyte Esterase NEGATIVE Urine WBC (Auto) 2 Urine RBC (Auto) 5 Urine Mucus (Auto) RARE Urine Ascorbic Acid NEGATIVE Chest X-Ray 02/08/19 00:00 IMPRESSION: Slight advancement of endotracheal tube. Otherwise no change. Chest X-Ray 02/08/19 00:00 IMPRESSION: NO PNEUMOTHORAX FOLLOWING CENTRAL LINE PLACEMENT. OTHERWISE NO CHANGE. Chest X-Ray 02/08/19 03:15 IMPRESSION: Cardiomegaly. Endotracheal and enteric tubes are in place. Postsurgical changes of the mediastinum. Airspace opacities right lung base. copyright 2010 [employer]- All Rights Reserved Chest CT 02/10/19 00:00 IMPRESSION: No pneumothorax. No pleural effusions. Bibasilar consolidation in both lower lobes. Slightly increased interstitial thickening, basilar predominance. Scattered pulmonary cysts and ground-glass opacities are again noted. Tubes and lines in expected positions. Chest X-Ray 02/12/19 00:00 IMPRESSION: 1. Bilateral perihilar airspace consolidation which may be due to edema, atelectasis or pneumonia. 2. Marked cardiomegaly. 3. Remote postsurgical changes of the mediastinum. 4. Life support lines and tubes as described above. Chest X-Ray 02/13/19 06:00 IMPRESSION: STABLE APPEARANCE OF THE CHEST. SUPPORT DEVICES UNCHANGED. The patient's 24-hour intake is 1183 mL. A 24-hour output is 1010 mL. IMPRESSION/RECOMMENDATION: 1. Acute on chronic respiratory failure. This is multifactorial secondary to the causes listed below. Continue ventilator support and supplemental oxygen. 2. Acute on chronic systolic heart failure. Patient with LV ejection fraction of 25%. Agree with continuing aggressive diuresis with Lasix. And continue the patient's Entresto and beta-rip. Continue the patient on milrinone. If his systolic blood pressure remains high consider starting IV nitroglycerin. 3. Acute exacerbation COPD: Continue bronchodilators and ventilatory support. 4. MRSA pneumonia: Continue antibiotics. 5. 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 Hence would recommend discontinue the patient's amiodarone which has been done. Continue steroids. 6. Acute on chronic kidney disease: Watch renal function as we implement aggressive diuresis. 7. Cardiomyopathy with severely reduced LV ejection fraction. Continue milrinone. 8. Paroxysmal atrial fibrillation: Continue beta-rip and Eliquis. 9. History of ventricular tachycardia, The patient has an AICD placed. If there is recurrence of ventricular tachycardia or major ventricular ectopic activity then would start the patient on small dose of sotalol. Would avoid amiodarone. 10. Hypertension: Blood pressure well controlled, on current medications. 11. Coronary artery disease: History of DE and history of coronary bypass graft surgery. No evidence of acute coronary syndrome/non-ST ST elevation [place] this admission. 12. Obstructive sleep apnea. Note patient is noncompliant with CPAP. Most likely has significant pulmonary hypertension. 13. AICD placement: Note the patient's basal rate is around 60 bpm. If the patient's heart failure continues then would recommend increasing the basal heart rate to 80 bpm to help combat the heart failure along with diuretics. 14. Morbid obesity. Medications reviewed. Medical regimen and management plan discussed with dulser. Medical decision making at present is of high complexity. 40 minutes spent on this patient more than 50% of time spent direct patient care. Will follow.
--- NOTE | 2019-02-13 19:54 | PDOC CRITICAL CARE PROG REPORT ---
General Date:: 02/13/19 ICU Day:: 5 Ventilator Day:: 5 Hospital Day:: 5 Resuscitation Status: Full Code Medical Power of Salesperson Stereo Equipment: DaughterAparna Events in the past 12 to 24 Hours:: Patient's hypoxia has improved and FiO2 is being reduced. Preliminary blood cultures show gram-positive bacteremia. Patient is already been placed on anti- MRSA and gram-positive coverage. Review of systems relevant to events:: Patient was started on milrinone to offset RV distention in the distributive pulmonary hypertension which occurs with advanced ARDS. Patient's last admi ssion she admitted to vaping this may be a significant reason for her lung disease at this point. FiO2 is now decreased and P high is been reduced this morning. Reason for ICU Addmission:: Respiratory failure - Medications: Vasopressors:: Milrinone and low dose levophed Sedation:: Precedex Physical Exam Vital Signs: Temp Pulse Resp BP Pulse Ox 99.7 F 60 13 154/89 H 95 02/13/19 19:00 02/13/19 18:00 02/13/19 19:00 02/13/19 18:00 02/13/19 19:00 Intake & Output 02/12/19 02/13/19 02/14/19 06:59 06:59 06:59 Intake Total 350 1183 571 Output Total 1865 1010 1220 Balance -1515 173 -649 Weight 104.8 kg 106.4 kg Weight/Height Weight 106.4 kg Height 5 ft 4 in General appearance: PRESENT: no acute distress, disheveled, morbidly obese Exam: Intubated nontoxic older appearing 48-year-old black female no active distress she is responsive. Eye exam: PRESENT: conjunctival injection, conjunctiva pink, PERRLA. ABSENT: nystagmus, scleral icterus Neck exam: ABSENT: carotid bruit, JVD, lymphadenopathy, thyromegaly, tracheal deviation Respiratory exam: PRESENT: crackles, decreased breath sounds, rhonchi, unlabored. ABSENT: accessory muscle use, tachypnea Cardiovascular exam: PRESENT: RRR, +S1, +S2 Pulses: ABSENT: normal dorsalis pedis pul Vascular exam: PRESENT: normal capillary refill. ABSENT: pallor GI/Abdominal exam: PRESENT: normal bowel sounds, soft. ABSENT: ascites, distended, guarding, mass, organolmegaly, rebound, tenderness Rectal exam: PRESENT: deferred Gentrourinary exam: PRESENT: indwelling catheter Extremities exam: PRESENT: pedal edema Musculoskeletal exam: ABSENT: deformity, dislocation Neurological exam: PRESENT: altered - Arouses to stimulus. Intermittently follows commands Skin exam: PRESENT: dry, intact, warm. ABSENT: cyanosis, rash Tubes/Lines: PRESENT: Endotracheal Tube, Central Line, Arterial Catheter, Nasogastic Tube, Other - Jones Laboratory/Radiographs Laboratory Results: 02/13/19 06:51 02/13/19 06:51 02/13/19 02/13/19 02/13/19 00:54 01:22 01:22 WBC RBC Hgb Hct MCV MCH MCHC RDW Plt Count Seg Neutrophils % Carbonic Acid 1.38 H HCO3/H2CO3 Ratio 23:1 ABG pH 7.47 H ABG pCO2 45.9 H ABG pO2 87.4 ABG HCO3 32.8 H ABG O2 Saturation 97.1 ABG Base Excess 8.2 FiO2 70% Sodium 149.4 H Potassium 2.8 L* Chloride 104 Carbon Dioxide 35 H Anion Gap 10 BUN 62 H Creatinine 2.26 H Est GFR ( Amer) 28 L Glucose 188 H Lactic Acid 2.9 H Calcium 8.3 L Phosphorus Magnesium Total Bilirubin AST Alkaline Phosphatase Ammonia Total Protein Albumin 02/13/19 02/13/19 02/13/19 06:51 06:51 06:51 WBC 5.9 RBC 3.59 L Hgb 10.3 L Hct 32.3 L MCV 90 MCH 28.6 MCHC 31.8 L RDW 19.4 H Plt Count 135 L Seg Neutrophils % Not Reportable Carbonic Acid 1.42 H HCO3/H2CO3 Ratio 22:1 ABG pH 7.45 ABG pCO2 47.3 H ABG pO2 97.1 ABG HCO3 32.4 H ABG O2 Saturation 97.6 ABG Base Excess 7.5 FiO2 60% Sodium Potassium Chloride Carbon Dioxide Anion Gap BUN Creatinine Est GFR ( Amer) Glucose Lactic Acid Calcium Phosphorus Magnesium Total Bilirubin AST Alkaline Phosphatase Ammonia 29.2 Total Protein Albumin 02/13/19 02/13/19 02/13/19 06:51 06:51 11:00 WBC RBC Hgb Hct MCV MCH MCHC RDW Plt Count Seg Neutrophils % Carbonic Acid 1.35 HCO3/H2CO3 Ratio 23:1 ABG pH 7.47 H ABG pCO2 44.8 ABG pO2 70.5 L ABG HCO3 31.8 H ABG O2 Saturation 95.0 ABG Base Excess 7.3 FiO2 50% Sodium 150.1 H Potassium 3.9 D Chloride 105 Carbon Dioxide 34 H Anion Gap 11 BUN 59 H Creatinine 2.09 H Est GFR ( Amer) 31 L Glucose 179 H Lactic Acid 2.6 H Calcium 8.7 Phosphorus 3.4 Magnesium 2.6 H Total Bilirubin 3.2 H AST 433 H Alkaline Phosphatase 142 H Ammonia Total Protein 6.6 Albumin 3.4 L 02/13/19 17:26 WBC RBC Hgb Hct MCV MCH MCHC RDW Plt Count Seg Neutrophils % Carbonic Acid 1.26 HCO3/H2CO3 Ratio 23:1 ABG pH 7.47 H ABG pCO2 41.7 ABG pO2 63.5 L ABG HCO3 29.5 H ABG O2 Saturation 93.5 L ABG Base Excess 5.3 FiO2 50 Sodium Potassium Chloride Carbon Dioxide Anion Gap BUN Creatinine Est GFR ( Amer) Glucose Lactic Acid Calcium Phosphorus Magnesium Total Bilirubin AST Alkaline Phosphatase Ammonia Total Protein Albumin 02/12/19 05:39 Blood Blood Culture (PCR) - Final Staphylococcus Aureus 02/12/19 06:02 Blood Blood Culture (PCR) - Final Staphylococcus Aureus 02/08/19 06:47 Blood Blood Culture - Final NO GROWTH IN 5 DAYS 02/08/19 05:45 Blood Blood Culture - Final NO GROWTH IN 5 DAYS 02/08/19 02/08/19 02/08/19 04:06 04:06 05:30 Creatine Kinase Cancelled 33 CK-MB (CK-2) Cancelled Troponin I Cancelled NT-Pro-B Natriuret Pep Cancelled 02/08/19 02/11/19 02/13/19 05:45 03:18 01:22 Creatine Kinase CK-MB (CK-2) < 0.22 Troponin I 0.043 NT-Pro-B Natriuret Pep 7610 H 1970 H 17176 H Impressions: Chest CT 02/10/19 00:00 IMPRESSION: No pneumothorax. No pleural effusions. Bibasilar consolidation in both lower lobes. Slightly increased interstitial thickening, basilar predominance. Scattered pulmonary cysts and ground-glass opacities are again noted. Tubes and lines in expected positions. Chest X-Ray 02/13/19 06:00 IMPRESSION: STABLE APPEARANCE OF THE CHEST. SUPPORT DEVICES UNCHANGED. 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, however [facility] admission. (3) Ischemic cardiomyopathy with implantable cardioverter-defibrillator (ICD) Is this a current diagnosis for this admission?: Yes (4) Cardiomyopathy, ischemic Is this a current diagnosis for this admission?: Yes Plan: Bi-ventricular, chronic systolic (5) Atrial fibrillation Qualifiers: Atrial fibrillation type: longstanding persistent Qualified Code(s): I48.11 - Longstanding persistent atrial fibrillation Is this a current diagnosis for this admission?: Yes Plan: Hold NOAC, start heparin in 12 hours Plan Summary: 02.13.19: Patient's overall status has improved but she still has significant ARDS. PF ratio is slightly improved FiO2 is being reduced as well as her P high. She has a history of atrial fibrillation with cardiomyopathy and had been on NOAC therapy. We will start her on IV heparin until safety can be assured for NOAC therapy. Patient is on low-dose Levophed and have reduce milrinone 0.2 mcgs. Our hope is to reduce the Levophed further. As her ventilator requirements improved the plan is to wean the milrinone. Patients with advanced ARDS have significant pulmonary hypertension and right ventricular overload. Given her already altered physiology this was necessary to help with oxygenation. We will continue steroid therapy and supportive care. Start nutrition. Patient has bacteremia and will need JOSS. Will start heparin and discontinued 2 hours prior to JOSS. No heparin bolus Attempted to contact family but have not been able to do so. 02.12.19: Patient has significant hypoxia with a PF ratio consistent with [place] criteria severe ARDS. Have changed some vent settings to support better ventilation and oxygenation. O2 is now being weaned. On critical care ultrasound she appears to have biventricular systolic dysfunction which we have known about in the past. Given the need for APRV and ARDS induced right ventricular dysfunction we have started her on milrinone to help support forward flow. We will monitor her response to this. Had been diuresed and her IVC is still dilated however she is on APRV which will augment preload. Of interest that she has not become hypotensive. To new to monitor for decompensation including pneumothorax. Concerned that this represents amiodarone toxicity of the lung have continued high-dose steroids which is the only known treatment. At this point she is too hypoxic to allow for bronchoscopy to obtain CD4 CD8 counts. Have attempted to contact family and him waiting call to update them. Critical Time Critical Time (minutes): 60 Level of Care: ICU Anticipated discharge: Acute Rehab -: 1. The care of a critical patient is a dynamic process. This note is a support representative synopsis but static in nature. The timeframe for treatments give n in order is not necessary the actual time these treatments may have been done. 2. This patient requires critical care secondary to ongoing requirements for therapy not offered or safe outside the critical care environment. Transfer to a lower level of care with altered life or limb morbidity and mortality. 3. Multidisciplinary rounds completed. 4. ABCDE bundle addressed.
[2019-02-13 20:58] LABS: ABSOLUTE LYMPHOCYTES (AUTO) 0.3 10^3/uL (0.5-4.7); ABSOLUTE MONOCYTES (AUTO) 0.2 10^3/uL (0.1-1.4); ABSOLUTE NEUT (AUTO) 3.5 10^3/uL (1.7-8.2); BASOPHILS % (AUTO) 0.2 % (0-2); HEMATOCRIT 33.6 % (36.0-47.0); HEMOGLOBIN 10.7 g/dL (12.0-15.5); LYMPHOCYTES % (AUTO) 6.5 % (13-45); MEAN CORPUSCULAR HEMOGLOBIN 28.8 pg (27.0-33.4); MEAN CORPUSCULAR VOLUME 90 fl (80-97); MONOCYTES % (AUTO) 5.9 % (3-13); PLATELET COUNT 139 10^3/uL (150-450); RED BLOOD COUNT 3.73 10^6/uL (3.72-5.28); RED CELL DISTRIBUTION WIDTH 19.4 % (11.5-14.0); SEGMENTED NEUTROPHILS % (AUTO) 87.4 % (42-78); TOTAL CELLS COUNTED % (AUTO) 100 %
[2019-02-13 21:06] LABS: APPEARANCE,URINE CLEAR; BILIRUBIN,URINE NEGATIVE (NEGATIVE); COLOR,URINE YELLOW; GLUCOSE, URINE 50 mg/dL (NEGATIVE); KETONES,URINE NEGATIVE (NEGATIVE); LEUKOCYTE ESTERASE,URINE NEGATIVE (NEGATIVE); NITRITE,URINE NEGATIVE (NEGATIVE); PROTEIN,URINE 100 mg/dL (NEGATIVE)
[2019-02-13 21:12] LABS: INTERNATIONAL RATION (INR) 1.21; PARTIAL THROMBOPLASTIN TIME 28.2 SEC (23.5-35.8); PROTHROMBIN TIME 15.4 SEC (11.4-15.4)
[2019-02-13] MEDS ORDERED: HEPARIN SOD (PORCINE) 1,000 UNIT/ML 10 ML VIAL IV PRN (22:55)
[2019-02-13] MEDS: HEPARIN SODIUM,PORCINE/D5W 25,000 UNIT/250 ML RTUINJ IV PRN (23:28)
[2019-02-14] MEDS: DEXMEDETOMIDINE IN 0.9 % NACL 400 MCG/100 ML RTUPB IV PRN ×9 (00:57→22:41)
--- NOTE | 2019-02-14 01:26 | Progress Note ---
Provider Note Provider Note: Cardiology progress note by Dr. Griselda Cruz on 02/11/2019. Subjective:. The patient has been extubated and is on BiPAP. She is slightly drowsy. She is also febrile. She denies any chest pain or discomfort. Shortness of breath is improved but still there. The patient sputum was positive MRSA and she is being treated for MRSA pneumonia with vancomycin. There is no arrhythmia seen on the monitor. There is no recurrence of atrial fibrillation or ventricular arrhythmias seen. There is no firing of the niesha bhardwaj's AICD. PHYSICAL EXAMINATION: The patient morbidly obese. At present slightly drowsy but in no acute distress. Selected Entries 02/11/19 02/11/19 02/11/19 16:00 16:01 16:40 Temperature 102.2 F H Temperature Core Source Pulse Rate 64 Respiratory 21 H Rate Blood Pressure 161/100 H [Left Upper Arm ] Blood Pressure 120 Mean [Left Upper Arm] Blood Pressure Supine Position [Left Upper Arm] O2 Sat by Pulse 94 94 Oximetry Oxygen Delivery Bi-pap Method ( includes room air) Fraction of 70 Inspired Oxygen (FIO2) Percent of 70 Oxygen HEAD: Is atraumatic normocephalic. EYES: Pupils are equal round regular reactive to light. HEENT is negative. SKIN: There is no skin rashes or skin lesions. There is no particular ecchymosis. NECK: Is supple. There is mild JVD present. Carotids are equal there is no bruits. There is no lymphadenopathy. There is no goiter. There is no accessory muscle respiration use. Trachea central. LUNGS: Shows bibasilar rales of CHF. There is a dry crackles scattered, and wheezing throughout the lung. There is also dry crackles in the right lower lobe. There is diminished air entry. On percussion there is hyperresonance. On palpation there is no chest wall tenderness. HEART: S1-S2 is heard. There is no S3 gallop. There is no S4 gallop. There is systolic murmur mitral regurgitation tricuspid regurgitation present. There is no aortic stenosis murmur. There is no aortic insufficiency murmur. There is no rub. ABDOMEN: Is obese. Nontender. There is no hepatosplenomegaly. Bowel sounds are well heard. There is no rebound guarding or rigidity. EXTREMITIES: Femorals are deep. Femorals are diminished. There is no femoral bruits. There is decreased leg pulses. There is mild pedal edema. There is no DVT or cellulitis. There is no calf tenderness. DRAW OFF WORKER: Patient is conscious, but slightly drowsy, but oriented x3. There is no focal deficits. PSYCHIATRIC: The patient does not appear to be agitated or anxious. Labs- All tests 24 hr 02/11/19 02/11/19 02/11/19 03:18 03:18 03:18 WBC 5.6 RBC 3.80 Hgb 11.0 L Hct 34.6 L MCV 91 MCH 28.8 MCHC 31.7 L RDW 19.7 H Plt Count 179 Lymph % (Auto) Not Reportable [place] % (Auto) Not Reportable Eos % (Auto) Not Reportable Baso % (Auto) Not Reportable Absolute Neuts (auto) Not Reportable Absolute Lymphs (auto) Not Reportable Absolute Monos (auto) Not Reportable Absolute Eos (auto) Not Reportable Absolute Basos (auto) Not Reportable Total Counted 100 Seg Neutrophils % Not Reportable Seg Neuts % (Manual) 88 H Band Neutrophils % 6 H Lymphocytes % (Manual) 3 L Monocytes % (Manual) 3 Eosinophils % (Manual) 0 Basophils % (Manual) 0 Abs Neuts (Manual) 5.3 Abs Lymphs (Manual) 0.2 L Abs Monocytes (Manual) 0.2 Absolute Eos (Manual) 0.0 Abs Basophils (Manual) 0.0 Platelet Comment ADEQUATE Hypochromasia 2+ Anisocytosis 2+ Carbonic Acid 1.50 H HCO3/H2CO3 Ratio 22:1 ABG pH 7.46 H ABG pCO2 49.9 H ABG pO2 72.3 L ABG HCO3 34.3 H ABG Total CO2 35.8 H ABG O2 Saturation 95.0 ABG Base Excess 9.0 FiO2 45% Sodium 147.2 H Potassium 3.4 L Chloride 102 Carbon Dioxide 39 H Anion Gap 6 BUN 35 H Creatinine 1.56 H Est GFR ( Amer) 43 L Est GFR (MDRD) Non-Af 36 L Glucose 166 H Calcium 8.4 NT-Pro-B Natriuret Pep TSH Free T4 Free T3 pg/mL Time Trough Drawn Vancomycin Trough 02/11/19 02/11/19 02/11/19 03:18 03:18 11:50 WBC RBC Hgb Hct MCV MCH MCHC RDW Plt Count Lymph % (Auto) [place] % (Auto) Eos % (Auto) Baso % (Auto) Absolute Neuts (auto) Absolute Lymphs (auto) Absolute Monos (auto) Absolute Eos (auto) Absolute Basos (auto) Total Counted Seg Neutrophils % Seg Neuts % (Manual) Band Neutrophils % Lymphocytes % (Manual) Monocytes % (Manual) Eosinophils % (Manual) Basophils % (Manual) Abs Neuts (Manual) Abs Lymphs (Manual) Abs Monocytes (Manual) Absolute Eos (Manual) Abs Basophils (Manual) Platelet Comment Hypochromasia Anisocytosis Carbonic Acid 1.51 H HCO3/H2CO3 Ratio 21:1 ABG pH 7.44 ABG pCO2 50.2 H ABG pO2 68.4 L ABG HCO3 33.0 H ABG Total CO2 34.6 H ABG O2 Saturation 94.0 ABG Base Excess 7.6 FiO2 55 Sodium Potassium Chloride Carbon Dioxide Anion Gap BUN Creatinine Est GFR ( Amer) Est GFR (MDRD) Non-Af Glucose Calcium NT-Pro-B Natriuret Pep 1970 H TSH 1.34 Free T4 1.69 Free T3 pg/mL 2.48 L Time Trough Drawn Vancomycin Trough 02/11/19 02/11/19 15:00 15:30 WBC RBC Hgb Hct MCV MCH MCHC RDW Plt Count Lymph % (Auto) [place] % (Auto) Eos % (Auto) Baso % (Auto) Absolute Neuts (auto) Absolute Lymphs (auto) Absolute Monos (auto) Absolute Eos (auto) Absolute Basos (auto) Total Counted Seg Neutrophils % Seg Neuts % (Manual) Band Neutrophils % Lymphocytes % (Manual) Monocytes % (Manual) Eosinophils % (Manual) Basophils % (Manual) Abs Neuts (Manual) Abs Lymphs (Manual) Abs Monocytes (Manual) Absolute Eos (Manual) Abs Basophils (Manual) Platelet Comment Hypochromasia Anisocytosis Carbonic Acid 1.56 H HCO3/H2CO3 Ratio 21:1 ABG pH 7.43 ABG pCO2 51.7 H ABG pO2 63.2 L ABG HCO3 33.5 H ABG Total CO2 35.1 H ABG O2 Saturation 92.4 L ABG Base Excess 7.8 FiO2 55% Sodium Potassium Chloride Carbon Dioxide Anion Gap BUN Creatinine Est GFR ( Amer) Est GFR (MDRD) Non-Af Glucose Calcium NT-Pro-B Natriuret Pep TSH Free T4 Free T3 pg/mL Time Trough Drawn Cancelled Vancomycin Trough Cancelled IMPRESSION/RECOMMENDATION: 1. Acute on chronic respiratory failure. This is multifactorial secondary to the causes listed below. Continue ventilator support and supplemental oxygen. 2. Acute on chronic systolic heart failure. Patient with LV ejection fraction of 25%. Agree with continuing aggressive diuresis with Lasix. And continue the patient's Entresto and beta-rip. 3. Acute exacerbation COPD: Continue bronchodilators and ventilatory support. 4. MRSA pneumonia: Continue antibiotics. 5. 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 Hence would recommend discontinue the patient's amiodarone which has been done. Continue steroids. 6. Acute on chronic kidney disease: Watch renal function as we implement aggressive diuresis. 7. Cardiomyopathy with severely reduced LV ejection fraction. 8. Paroxysmal atrial fibrillation: Continue beta-rip and Eliquis. 9. History of ventricular tachycardia, The patient has an AICD placed. If there is recurrence of ventricular tachycardia or major ventricular ectopic activity then would start the patient on small dose of sotalol. Would avoid amiodarone. 10. Hypertension: Blood pressure well controlled, on current medications. 11. Coronary artery disease: History of SC and history of coronary bypass graft surgery. No evidence of acute coronary syndrome/non-ST ST elevation SC this admission. 12. Obstructive sleep apnea. Note patient is noncompliant with CPAP. Most likely has significant pulmonary hypertension. 13. AICD placement: Note the patient's basal rate is around 60 bpm. If the patient's heart failure continues then would recommend increasing the basal heart rate to 80 bpm to help combat the heart failure along with diuretics. 14. Morbid obesity. Medications reviewed. Medical regimen and management plan discussed with engraver hand hard metals. Medical decision making at present is of moderate complexity. 40 minutes spent on this patient more than 50% of time spent direct patient care. Will follow.
[2019-02-14] MEDS: MEROPENEM 1 GM in NORMAL SALINE 50 ML IV SCH ×2 (02:12→09:03)
[2019-02-14 05:08] LABS: ARTERIAL BLOOD BASE EXCESS 6.4 mmol/L; ARTERIAL BLOOD FIO2 50%; ARTERIAL BLOOD H2CO3 1.28 mmol/L (1.05-1.35); ARTERIAL BLOOD HCO3 30.6 mmol/L (20-24); ARTERIAL BLOOD O2 SATURATION 94.5 % (94-98); ARTERIAL BLOOD PCO2 42.5 mmHg (35-45); ARTERIAL BLOOD PH 7.48 (7.35-7.45); ARTERIAL BLOOD PO2 67.3 mmHg (80-100); ARTERIAL BLOOD TOTAL CO2 31.9 mmol/L (21-25)
[2019-02-14 05:09] LABS: ABSOLUTE LYMPHOCYTES (AUTO) 0.3 10^3/uL (0.5-4.7); ABSOLUTE MONOCYTES (AUTO) 0.4 10^3/uL (0.1-1.4); BASOPHILS % (AUTO) 0.4 % (0-2); HEMATOCRIT 34.4 % (36.0-47.0); LYMPHOCYTES % (AUTO) 8.5 % (13-45); MEAN CORPUSCULAR HEMOGLOBIN 28.5 pg (27.0-33.4); MEAN CORPUSCULAR HGB CONC 31.9 g/dL (32.0-36.0); MEAN CORPUSCULAR VOLUME 89 fl (80-97); MONOCYTES % (AUTO) 9.7 % (3-13); PLATELET COUNT 152 10^3/uL (150-450); RED BLOOD COUNT 3.86 10^6/uL (3.72-5.28); RED CELL DISTRIBUTION WIDTH 19.4 % (11.5-14.0); SEGMENTED NEUTROPHILS % (AUTO) 81.4 % (42-78); TOTAL CELLS COUNTED % (AUTO) 100 %; WHITE BLOOD COUNT 3.7 10^3/uL (4.0-10.5)
[2019-02-14 05:14] LABS: PROTHROMBIN TIME 15.3 SEC (11.4-15.4)
[2019-02-14 05:25] LABS: PARTIAL THROMBOPLASTIN TIME 65.6 SEC (23.5-35.8)
[2019-02-14] MEDS: METHYLPREDNISOLONE INJ 125 MG/2 ML SDV IV SCH ×3 (06:07→21:08)
[2019-02-14 08:14] LABS: ATYPICAL PANCA <1:20 titer (Neg:<1:20)
--- NOTE | 2019-02-14 08:27 | RADIOLOGY REPORT (SQ) ---
EXAM DESCRIPTION: CHEST SINGLE VIEW COMPLETED DATE/TIME: 02/14/2019 6:08 am REASON FOR STUDY: ARDS COMPARISON: 02/13/2019 EXAM PARAMETERS: NUMBER OF VIEWS: One view. TECHNIQUE: Single frontal radiographic view of the chest acquired. RADIATION DOSE: NA LIMITATIONS: None. FINDINGS: LUNGS AND PLEURA: Persistent diffuse bilateral basilar predominant interstitial alveolar o pacities, mildly increased from prior. Likely small bilateral effusions. No pneumothorax. MEDIASTINUM AND HILAR STRUCTURES: Stable. HEART AND VASCULAR STRUCTURES: Enlarged cardiac silhouette, stable. Sternotomy changes. BONES: Sternotomy changes. No new findings. HARDWARE: Endotracheal tube tip overlies midthoracic trachea. Right internal jugular central venous catheter tip overlies SVC. Unchanged left subclavian approach cardiac pacer/ defibrillator. Enteric tube tip below diaphragm but excluded by collimation. OTHER: No other significant finding. IMPRESSION: Mildly worsened bibasilar predominant opacities, likely edema although infection not exc luded. Stable support lines and tubes as above. TECHNICAL DOCUMENTATION: JOB ID: [id number] [employer]- All Rights Reserved Reading location - IP/workstation name: [email or web address]
[2019-02-14] MEDS: BUSPIRONE HCL 10 MG TABLET NG SCH ×2 (09:02→21:07)
[2019-02-14] MEDS: METOPROLOL TARTRATE 50 MG TABLET NG SCH (09:02)
[2019-02-14] MEDS: FAMOTIDINE INJ/PF 20 MG/2 ML SDV IV SCH ×2 (09:03→21:08)
[2019-02-14] MEDS: AMINO AC/PROTEIN HYDR/WHEY PRO 11 GM/45 ML PKT NG SCH ×4 (09:03→21:08)
[2019-02-14] MEDS: LINEZOLID 600 MG/300 ML RTUPB IV SCH ×2 (09:04→21:08)
--- NOTE | 2019-02-14 12:18 | XCELERA REPORT ---
Study ID: [id number] Transesophageal Echocardiogram Report Name: FRANKI DEL ROSARIO Age: 48 yrs Gender: Female : 1970 Patient Status: In[facility] Date: 02/14/2019 07:34 AM History: ICD in situ Endocarditis Drug use Reason For Study: endocarditis, pacer wire infection Ordering Physician: PHANI LEONARD Performed By: Mihaela Gaming Interpretation Summary This degree of valvular regurgitation is within normal limits. There is no evidence of a mass or vegetation. This does not rule out endocarditis. Left ventricular systolic function is moderately reduced. LVEF 20-25% The right ventricular systolic function is moderately reduced. Thickened fibrinous material noted on leads. There is no large mass or motion independent of lead body. However this does not exclude endocardiitis. This degree of valvular regurgitation is within normal limits. Procedure A complete two-dimensional transesophageal echocardiogram was performed (2D, spectral and color flow Doppler). Informed consent for Transesophageal Echocardiogram, and use of a contrast agent as needed, was obtained prior to the procedure. The patient was brought to the ICU in a fasting state. An intravenous line was placed. A topical anesthetic agent was used for oropharangeal anesthesia. A bite block was inserted. IV conscious sedation was administered using Per ICU protocol. The patient's vital signs, including blood pressure, heart rate, pulse oximetry and cardiac rhythm were monitored thoughout the procedure. A multifrequency, mutliplane transesophageal echocardiographic endoscope was inserted and manipulated in the standard fashion to achieve multiplane views. The transesophageal probe was passed without difficulty. The usual views were obtained; basal, mid-esophageal, transgastric and aortic views. The patient tolerated the procedure well without evidence of orophangeal or esophageal trauma. Left Ventricle The left ventricle is mildly dilated. Left ventricular systolic function is moderately reduced. LVEF 20-25%. There is moderate global hypokinesis of the left ventricle. Right Ventricle The right ventricle is mildly dilated. There is a pacemaker lead in the right ventricle. Thickened fibrinous material noted on leads. There is no large mass or motion independent of lead body. The right ventricular systolic function is moderately reduced. Atria The interatrial septum is intact with no evidence for an atrial septal defect. The left atrium is mildly dilated. No thrombus is detected in the left atrial appendage. The right atrium is mildly dilated. Thickened fibrinous material noted on leads. There is no large mass or motion independent of lead body. Mitral Valve The mitral valve is grossly normal. There is no vegetation seen on the mitral valve. There is mild mitral regurgitation. Tricuspid Valve The tricuspid valve is not well visualized, but is grossly normal. There is no tricuspid valve vegetation. There is mild tricuspid regurgitation. Aortic Valve The aortic valve opens well. The aortic valve is trileaflet. There is no aortic valvular vegetation. No hemodynamically significant valvular aortic stenosis. No aortic regurgitation is present. Pulmonic Valve The pulmonic valve is not well visualized. Pericardium There is no pericardial effusion. : PHANI LEONARD Anil
[2019-02-14 12:45] LABS: ALKALINE PHOSPHATASE 138 U/L (38-126); ANION GAP 14 (5-19); ASPARTATE AMINO TRANSFERASE 185 U/L (14-36); BILIRUBIN,DIRECT 1.3 mg/dL (0.0-0.4); BILIRUBIN,TOTAL 2.2 mg/dL (0.2-1.3); BLOOD UREA NITROGEN 58 mg/dL (7-20); CALCIUM 9.1 mg/dL (8.4-10.2); CARBON DIOXIDE 29 mmol/L (22-30); CHLORIDE 107 mmol/L (98-107); GLUCOSE 287 mg/dL (75-110); POTASSIUM 3.7 mmol/L (3.6-5.0); TOTAL PROTEIN 6.4 g/dL (6.3-8.2)
[2019-02-14] MEDS ORDERED: VANCOMYCIN HCL 0 MG in DEXTROSE 5%-WATER 250 ML IV NR (13:00)
[2019-02-14] MEDS: MILRINONE LACTATE/D5W 20 MG/100 ML RTUINJ IV PRN ×2 (14:28→21:07)
[2019-02-14] MEDS: VANCOMYCIN HCL 750 MG in DEXTROSE 5%-WATER 250 ML IV SCH (16:41)
[2019-02-14] MEDS: HEPARIN SODIUM,PORCINE/D5W 25,000 UNIT/250 ML RTUINJ IV PRN (18:35)
--- NOTE | 2019-02-14 19:17 | Progress Note ---
Provider Note Provider Note: CARDIOLOGY PROGRESS NOTE by Dr. Griselda Martin on 02/14/2019. SUBJECTIVE the patient continues to be intubated and sedated. She is off vasopressors. Her blood pressure still up. There is no arrhythmia seen on the monitor. There is minimal improvement in the chest x-ray. Urine output also has minimally improved. There is no firing of her AICD. The patient's blood cultures positive for MRSA and is being treated for that. She had a JOSS which showed some fibrinous changes in the pacemaker lead site of implantation suspicious for possible endocarditis. PHYSICAL EXAMINATION: The patient is morbidly obese. She is on the ventilator. Selected Entries 02/14/19 02/14/19 02/14/19 11:00 11:39 12:00 Temperature 99.0 F 98.8 F Temperature Core Source Pulse Rate 60 Heart Rate ( 60 Monitors) Respiratory 14 14 Rate Respiratory Normal Depth Respiratory Mechanically Effort Ventilated Blood Pressure 166/96 H [Left Upper Arm ] Blood Pressure 119 Mean [Left Upper Arm] Blood Pressure Supine Position [Left Upper Arm] O2 Sat by Pulse 95 Oximetry Fraction of 50 Inspired Oxygen (FIO2) HEAD: Is atraumatic normocephalic. EYES: Pupils are equal round regular reactive to light. HEENT is negative. SKIN: There is no skin rashes or skin lesions. There is no particular ecchymosis. NECK: Is supple. There is mild JVD present. Carotids are equal there is no bruits. There is no lymphadeno clara. There is no goiter. There is no accessory muscle respiration use. Trachea central. LUNGS: Shows bibasilar rales of CHF. There is a dry crackles scattered, and wheezing throughout the lung. There is also dry crackles in the right lower lobe. There is diminished air entry. On percussion there is hyperresonance. On palpation there is no chest wall tenderness. HEART: S1-S2 is heard. There is no S3 gallop. There is no S4 gallop. There is systolic murmur mitral regurgitation tricuspid regurgitation present. There is no aortic stenosis murmur. There is no aortic insufficiency murmur. There is no rub. ABDOMEN: Is obese. Nontender. There is no hepatosplenomegaly. Bowel sounds are well heard. There is no rebound guarding or rigidity. EXTREMITIES: Femorals are deep. Femorals are diminished. There is no femoral bruits. There is decreased leg pulses. There is mild pedal edema. There is no DVT or cellulitis. There is no calf tenderness. CLINICAL IMPLEMENTATION SPECIALIST and psychiatric examination not performed due to patient being on the ventilator, and on sedation. Labs- All tests 24 hr 02/12/19 02/14/19 02/14/19 08:51 04:50 04:50 WBC 3.7 L RBC 3.86 Hgb 11.0 L Hct 34.4 L MCV 89 MCH 28.5 MCHC 31.9 L RDW 19.4 H Plt Count 152 Lymph % (Auto) 8.5 L [place] % (Auto) 9.7 Eos % (Auto) 0.0 Baso % (Auto) 0.4 Absolute Neuts (auto) 3.0 Absolute Lymphs (auto) 0.3 L Absolute Monos (auto) 0.4 Absolute Eos (auto) 0.0 Absolute Basos (auto) 0.0 Seg Neutrophils % 81.4 H PT INR APTT Carbonic Acid 1.28 HCO3/H2CO3 Ratio 23:1 ABG pH 7.48 H ABG pCO2 42.5 ABG pO2 67.3 L ABG HCO3 30.6 H ABG Total CO2 31.9 H ABG O2 Saturation 94.5 ABG Base Excess 6.4 FiO2 50% Sodium Potassium Chloride Carbon Dioxide Anion Gap BUN Creatinine Est GFR ( Amer) Est GFR (MDRD) Non-Af Glucose Lactic Acid Calcium Phosphorus Magnesium Total Bilirubin Direct Bilirubin Neonat Total Bilirubin Neonat Direct Bilirubin Neonat Indirect Bili AST ALT Alkaline Phosphatase Total Protein Albumin c-ANCA Antibody <1:20 Anti-Proteinase 3 Intrp <3.5 Atypical p-ANCA <1:20 p-ANCA Antibody <1:20 Myeloperoxidase Ab <9.0 02/14/19 02/14/19 02/14/19 04:50 04:50 11:07 WBC RBC Hgb Hct MCV MCH MCHC RDW Plt Count Lymph % (Auto) [place] % (Auto) Eos % (Auto) Baso % (Auto) Absolute Neuts (auto) Absolute Lymphs (auto) Absolute Monos (auto) Absolute Eos (auto) Absolute Basos (auto) Seg Neutrophils % PT 15.3 INR 1.20 APTT 65.6 H D Carbonic Acid HCO3/H2CO3 Ratio ABG pH ABG pCO2 ABG pO2 ABG HCO3 ABG Total CO2 ABG O2 Saturation ABG Base Excess FiO2 Sodium 150.1 H Potassium 3.7 Chloride 107 Carbon Dioxide 29 Anion Gap 14 BUN 58 H Creatinine 1.25 Est GFR ( Amer) 56 L Est GFR (MDRD) Non-Af 46 L Glucose 287 H Lactic Acid 2.6 H Calcium 9.1 Phosphorus 4.0 Magnesium 2.8 H Total Bilirubin 2.2 H Direct Bilirubin 1.3 H Neonat Total Bilirubin Not Reportable Neonat Direct Bilirubin Not Reportable Neonat Indirect Bili Not Reportable AST 185 H ALT 424 Alkaline Phosphatase 138 H Total Protein 6.4 Albumin 3.0 L c-ANCA Antibody Anti-Proteinase 3 Intrp Atypical p-ANCA p-ANCA Antibody Myeloperoxidase Ab 02/14/19 02/14/19 20:45 22:20 WBC RBC Hgb Hct MCV MCH MCHC RDW Plt Count Lymph % (Auto) [place] % (Auto) Eos % (Auto) Baso % (Auto) Absolute Neuts (auto) Absolute Lymphs (auto) Absolute Monos (auto) Absolute Eos (auto) Absolute Basos (auto) Seg Neutrophils % PT INR APTT Carbonic Acid 0.51 L 1.16 HCO3/H2CO3 Ratio 23:1 23:1 ABG pH 7.46 H 7.46 H ABG pCO2 16.9 L* 38.7 ABG pO2 88.9 74.7 L ABG HCO3 11.8 L 26.8 H ABG Total CO2 12.3 L 28.0 H ABG O2 Saturation 97.5 95.7 ABG Base Excess -11.1 2.9 FiO2 50 50 Sodium Potassium Chloride Carbon Dioxide Anion Gap BUN Creatinine Est GFR ( Amer) Est GFR (MDRD) Non-Af Glucose Lactic Acid Calcium Phosphorus Magnesium Total Bilirubin Direct Bilirubin Neonat Total Bilirubin Neonat Direct Bilirubin Neonat Indirect Bili AST ALT Alkaline Phosphatase Total Protein Albumin c-ANCA Antibody Anti-Proteinase 3 Intrp Atypical p-ANCA p-ANCA Antibody Myeloperoxidase Ab Chest X-Ray 02/08/19 00:00 IMPRESSION: Slight advancement of endotracheal tube. Otherwise no change. Chest X-Ray 02/08/19 00:00 IMPRESSION: NO PNEUMOTHORAX FOLLOWING CENTRAL LINE PLACEMENT. OTHERWISE NO CHANGE. Chest X-Ray 02/08/19 03:15 IMPRESSION: Cardiomegaly. Endotracheal and enteric tubes are in place. Postsurgical changes of the mediastinum. Airspace opacities right lung base. copyright 2011 [employer]- All Rights Reserved Chest CT 02/10/19 00:00 IMPRESSION: No pneumothorax. No pleural effusions. Bibasilar consolidation in both lower lobes. Slightly increased interstitial thickening, basilar predominance. Scattered pulmonary cysts and ground-glass opacities are again noted. Tubes and lines in expected positions. Chest X-Ray 02/12/19 00:00 IMPRESSION: 1. Bilateral perihilar airspace consolidation which may be due to edema, atelectasis or pneumonia. 2. Marked cardiomegaly. 3. Remote postsurgical changes of the mediastinum. 4. Life support lines and tubes as described above. Chest X-Ray 02/13/19 06:00 IMPRESSION: STABLE APPEARANCE OF THE CHEST. SUPPORT DEVICES UNCHANGED. Chest X-Ray 02/14/19 06:00 IMPRESSION: Mildly worsened bibasilar predominant opacities, likely edema although infection not excluded. Stable support lines and tubes as above. IMPRESSION/RECOMMENDATION: 1. Acute on chronic respiratory failure. This is multifactorial secondary to the causes listed below. Continue ventilator support and supplemental oxygen. 2. Acute on chronic systolic heart failure. Patient with LV ejection fraction of 25%. Agree with continuing aggressive diuresis with Lasix. And continue the patient's Entresto and beta-rip. Continue the patient on milrinone. If his systolic blood pressure remains high consider starting IV nitroglycerin. 3. Acute exacerbation COPD: Continue bronchodilators and ventilatory support. 4. MRSA pneumonia: Continue antibiotics. 5. 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 Hence would recommend discontinue the patient's amiodarone which has been done. Continue steroids. 6. Acute on chronic kidney disease: Watch renal function as we implement aggressive diuresis. 7. Cardiomyopathy with severely reduced LV ejection fraction. Continue milrinone. 8. Paroxysmal atrial fibrillation: Continue beta-rip and Eliquis. 9. History of ventricular tachycardia, The patient has an AICD placed. If there is recurrence of ventricular tachycardia or major ventricular ectopic activity then would start the patient on small dose of sotalol. Would avoid amiodarone. 10. Hypertension: Blood pressure well controlled, on current medications. 11. Coronary artery disease: History of MO and history of coronary bypass graft surgery. No evidence of acute coronary syndrome/non-ST ST elevation MO this admission. 12. Obstructive sleep apnea. Note patient is noncompliant with CPAP. Most likely has significant pulmonary hypertension. 13. AICD placement: Note the patient's basal rate is around 60 bpm. If the patient's heart failure continues then would recommend increasing the basal heart rate to 80 bpm to help combat the heart failure along with diuretics. 14. MRSA bacteremia: Continue antibiotics. Suspicion for AICD lead infection. If this is really the case then the pacemaker system has to be explanted. 15. Morbid obesity. Medications reviewed. Medical regimen and management plan discussed with build automation engineer. Medical decision making is of moderate to high complexity. 40 minutes spent on the patient more than 50% of time spent in direct patient care. Will follow.
--- NOTE | 2019-02-14 20:17 | PDOC CRITICAL CARE PROG REPORT ---
General Date:: 02/14/19 ICU Day:: 6 Ventilator Day:: 6 Hospital Day:: 6 Resuscitation Status: Full Code Medical Power of Paperhanger Supervisor: DaughterAparna Events in the past 12 to 24 Hours:: 02.14.19: Patient has had a decrease in FiO2. P high is been reduced to 28 however PO2 is still at 66 mmHg. She is no longer hypotensive and actually has some degree of hypertension. Was increased to 0.25. 02.13.19: Patient's hypoxia has improved and FiO2 is being reduced. Preliminary blood cultures show gram-positive bacteremia. Patient is already been placed on anti- MRSA and gram-positive coverage. Review of systems relevant to events:: Patient was started on milrinone to offset RV distention in the distributive pulmonary hypertension which occurs with advanced ARDS. [facility] for her lung disease at this point. FiO2 is now decreased and P high is been reduced this morning. Review of systems relevant to events:: She has had no fevers. Chest x-ray shows minimal clearance. As noted on JOSS yesterday there is some questionable excess fibrinous changes to the pacemaker lead which may be consistent with an endocarditis focus. Reason for ICU Addmission:: Respiratory failure - Medications: Vasopressors:: Milrinone. Levophed discontinued Sedation:: Precedex Physical Exam Vital Signs: Temp Pulse Resp BP Pulse Ox 99.0 F 60 14 118/74 96 02/14/19 18:00 02/14/19 18:00 02/14/19 18:00 02/14/19 18:00 02/14/19 18:00 Intake & Output 02/13/19 02/14/19 02/15/19 06:59 06:59 06:59 Intake Total 1183 1855 1350 Output Total 1010 2370 440 Balance 173 -515 910 Weight 106.4 kg 109.3 kg Weight/Height Weight 109.3 kg Height 5 ft 4 in General appearance: PRESENT: no acute distress, morbidly obese Head exam: PRESENT: atraumatic, normocephalic Eye exam: PRESENT: conjunctival injection, conjunctiva pink, PERRLA. ABSENT: nystagmus, scleral icterus Mouth exam: PRESENT: moist, neck supple Neck exam: PRESENT: other - CVC clean, dry and intact. ABSENT: carotid bruit, JVD Respiratory exam: PRESENT: other - ON APRV. Crackles on drop Cardiovascular exam: PRESENT: RRR, other - Paced at times Pulses: ABSENT: normal dorsalis pedis pul Vascular exam: PRESENT: normal capillary refill. ABSENT: pallor GI/Abdominal exam: PRESENT: normal bowel sounds, soft. ABSENT: distended, guarding, mass, organolmegaly, rebound, tenderness Extremities exam: PRESENT: pedal edema. ABSENT: tenderness Musculoskeletal exam: ABSENT: deformity, dislocation Neurological exam: PRESENT: altered - Follows commands on Precedex Focused psych exam: ABSENT: psychomotor agitation, restlessness Skin exam: PRESENT: dry, intact, normal color, warm. ABSENT: cyanosis, mottled, rash Tubes/Lines: PRESENT: Endotracheal Tube, Central Line, Arterial Catheter, Other - OGT and ritter Laboratory/Radiographs Laboratory Results: 02/14/19 04:50 02/14/19 11:07 02/13/19 02/13/19 02/14/19 20:32 20:32 04:50 WBC 4.0 RBC 3.73 Hgb 10.7 L Hct 33.6 L MCV 90 MCH 28.8 MCHC 32.0 RDW 19.4 H Plt Count 139 L Seg Neutrophils % 87.4 H Carbonic Acid 1.28 HCO3/H2CO3 Ratio 23:1 ABG pH 7.48 H ABG pCO2 42.5 ABG pO2 67.3 L ABG HCO3 30.6 H ABG O2 Saturation 94.5 ABG Base Excess 6.4 FiO2 50% Sodium Potassium Chloride Carbon Dioxide Anion Gap BUN Creatinine Est GFR ( Amer) Glucose Lactic Acid Calcium Phosphorus Magnesium Total Bilirubin AST Alkaline Phosphatase Total Protein Albumin Urine Color YELLOW Urine Appearance CLEAR Urine pH 6.0 Ur Specific Jeffers 1.020 Urine Protein 100 H Urine Glucose (UA) 50 H Urine Ketones NEGATIVE Urine Blood SMALL H Urine Nitrite NEGATIVE Ur Leukocyte Esterase NEGATIVE Urine WBC (Auto) 2 Urine RBC (Auto) 5 02/14/19 02/14/19 02/14/19 04:50 04:50 11:07 WBC 3.7 L RBC 3.86 Hgb 11.0 L Hct 34.4 L MCV 89 MCH 28.5 MCHC 31.9 L RDW 19.4 H Plt Count 152 Seg Neutrophils % 81.4 H Carbonic Acid HCO3/H2CO3 Ratio ABG pH ABG pCO2 ABG pO2 ABG HCO3 ABG O2 Saturation ABG Base Excess FiO2 Sodium 150.1 H Potassium 3.7 Chloride 107 Carbon Dioxide 29 Anion Gap 14 BUN 58 H Creatinine 1.25 Est GFR ( Amer) 56 L Glucose 287 H Lactic Acid 2.6 H Calcium 9.1 Phosphorus 4.0 Magnesium 2.8 H Total Bilirubin 2.2 H AST 185 H Alkaline Phosphatase 138 H Total Protein 6.4 Albumin 3.0 L Urine Color Urine Appearance Urine pH Ur Specific Jeffers Urine Protein Urine Glucose (UA) Urine Ketones Urine Blood Urine Nitrite Ur Leukocyte Esterase Urine WBC (Auto) Urine RBC (Auto) 02/12/19 06:02 Blood Blood Culture (PCR) - Final Staphylococcus Aureus 02/12/19 06:02 Blood Blood Culture - Final Mrsa (Meth Resis Staph Aureus) 02/12/19 05:39 Blood Blood Culture (PCR) - Final Staphylococcus Aureus 02/12/19 05:39 Blood Blood Culture - Final Mrsa (Meth Resis Staph Aureus) 02/12/19 04:37 Bronchial Washings Gram Stain - Final 02/12/19 04:37 Bronchial Washings Bronchial Washings Culture - Final Mrsa (Meth Resis Staph Aureus) Normal Evelyn Absent 02/08/19 02/08/19 02/08/19 04:06 04:06 05:30 Creatine Kinase Cancelled 33 CK-MB (CK-2) Cancelled Troponin I Cancelled NT-Pro-B Natriuret Pep Cancelled 02/08/19 02/11/19 02/13/19 05:45 03:18 01:22 Creatine Kinase CK-MB (CK-2) < 0.22 Troponin I 0.043 NT-Pro-B Natriuret Pep 7610 H 1970 H 19344 H Impressions: Chest CT 02/10/19 00:00 IMPRESSION: No pneumothorax. No pleural effusions. Bibasilar consolidation in both lower lobes. Slightly increased interstitial thickening, basilar predominance. Scattered pulmonary cysts and ground-glass opacities are again noted. Tubes and lines in expected positions. Chest X-Ray 02/14/19 06:00 IMPRESSION: Mildly worsened bibasilar predominant opacities, likely edema although infection not excluded. Stable support lines and tubes as above. All labs, radiographs, diagnostic studies and EKGs were personally reviewed: Yes In addition, reports of radiographic and diagnostic studies were read: Yes Assessment and Plan - Diagnosis (1) ARDS (adult respiratory distress syndrome) Is this a current diagnosis for this admission?: Yes Plan: Attempt to wean PHigh (2) Pneumonitis Is this a current diagnosis for this admission?: Yes Plan: Concern for likely Amiodarone induced, [facility]. Will increase milrinone and attempt to wean Phigh (3) Ischemic cardiomyopathy with implantable cardioverter-defibrillator (ICD) Is this a current diagnosis for this admission?: Yes (4) Cardiomyopathy, ischemic Is this a current diagnosis for this admission?: Yes Plan: Bi-ventricular, chronic systolic (5) Atrial fibrillation Qualifiers: Atrial fibrillation type: longstanding persistent Qualified Code(s): I48.11 - Longstanding persistent atrial fibrillation Is this a current diagnosis for this admission?: Yes Plan: NOAC on hold. On heparin drip Plan Summary: 02.14.19: The patient has had subtle improvement and now has no need for Levophed therapy. Fact her blood pressure slightly higher and have increased the milrinone to help supplant hypertension and affect pulmonary hypertension and assist with RV function. Patient has what appears to be an enlarged fibrinous changes of to the pacemaker/AICD lead seen on JOSS. Plan is that if she has persistent bacteremia this will need to be removed. I am concerned that she has amiodarone induced toxicity to her lung as well as possible vaping injury. Normally, in consideration, steroid therapy would need to be increased at pulse dose for 2 to 3 days. Have also screened for autoimmune and vasculitic component all of which are negative. She appears to have some improvement with the use of milrinone and given the need for a PRV will continue this. We will follow microbiologic studies. If further blood cultures are positive we will transition to possible transfer for removal of leads. She may [facility]. I consulted infectious diseases and discussed the case with them. They are in agreement with our plan but asked that we add vancomycin to cover bacteremia. They would like to continue linezolid which has excellent pulmonary penetration. He may need a CT scan to rule out necrotizing pneumonia however is unable to be transported at this time. We will attempt to contact family to update them. 02.13.19: Patient's overall status has improved but she still has significant ARDS. PF ratio is slightly improved FiO2 is being reduced as well as her P high. She has a history of atrial fibrillation with cardiomyopathy and had been on NOAC therapy. We will start her on IV heparin until safety can be assured for NOAC therapy. Patient is on low-dose Levophed and have reduce milrinone 0.2 mcgs. Our hope is to reduce the Levophed further. As her ventilator requirements improved the plan is to wean the milrinone. Patients with advanced ARDS have significant pulmonary hypertension and right ventricular overload. Given her already alte red physiology this was necessary to help with oxygenation. We will continue steroid therapy and supportive care. Start nutrition. Patient has bacteremia and will need JOSS. Will start heparin and discontinued 2 hours prior to JOSS. No heparin bolus Attempted to contact family but have not been able to do so. 19: Patient has significant hypoxia with a PF ratio consistent with Pepperell criteria severe ARDS. Have changed some vent settings to support better ventilation and oxygenation. O2 is now being weaned. On critical care ultrasound she appears to have biventricular systolic dysfunction which we have known about in the past. Given the need for APRV and ARDS induced right ventricular dysfunction we have started her on milrinone to help support forward flow. We will monitor her response to this. Had been diuresed and her IVC is still dilated however she is on APRV which will augment preload. Of interest that she has not become hypotensive. To new to monitor for decompensation including pneumothorax. Concerned that this represents amiodarone toxicity of the lung have continued high-dose steroids which is the only known treatment. At this point she is too hypoxic to allow for bronchoscopy to obtain CD4 CD8 counts. Have attempted to contact family and him waiting call to update them. Critical Time Critical Time (minutes): 50 Level of Care: ICU -: 1. The care of a critical patient is a dynamic process. This note is a field representative/health education synopsis but static in nature. The timeframe for treatments given in order is not necessary the actual time these treatments may have been done. 2. This patient requires critical care secondary to ongoing requirements for therapy not offered or safe outside the critical care environment. Transfer to a lower level of care with altered life or limb morbidity and mortality. 3. Multidisciplinary rounds completed. 4. ABCDE bundle addressed.
[2019-02-14 20:59] LABS: ARTERIAL BLOOD BASE EXCESS -11.1 mmol/L; ARTERIAL BLOOD H2CO3 0.51 mmol/L (1.05-1.35); ARTERIAL BLOOD HCO3 11.8 mmol/L (20-24); ARTERIAL BLOOD O2 SATURATION 97.5 % (94-98); ARTERIAL BLOOD PH 7.46 (7.35-7.45); ARTERIAL BLOOD PO2 88.9 mmHg (80-100); ARTERIAL BLOOD TOTAL CO2 12.3 mmol/L (21-25)
[2019-02-14 21:05] LABS: ARTERIAL BLOOD FIO2 50; ARTERIAL BLOOD PCO2 16.9 mmHg (35-45)
[2019-02-14 22:38] LABS: ARTERIAL BLOOD BASE EXCESS 2.9 mmol/L; ARTERIAL BLOOD H2CO3 1.16 mmol/L (1.05-1.35); ARTERIAL BLOOD HCO3 26.8 mmol/L (20-24); ARTERIAL BLOOD O2 SATURATION 95.7 % (94-98); ARTERIAL BLOOD PCO2 38.7 mmHg (35-45); ARTERIAL BLOOD PH 7.46 (7.35-7.45); ARTERIAL BLOOD PO2 74.7 mmHg (80-100)
[2019-02-14 22:39] LABS: ARTERIAL BLOOD FIO2 50
[2019-02-15] MEDS: DEXMEDETOMIDINE IN 0.9 % NACL 400 MCG/100 ML RTUPB IV PRN ×10 (01:14→23:55)
[2019-02-15] MEDS: MILRINONE LACTATE/D5W 20 MG/100 ML RTUINJ IV PRN ×4 (03:19→20:59)
--- NOTE | 2019-02-15 04:32 | RADIOLOGY REPORT (SQ) ---
EXAM DESCRIPTION: XR CHEST 1 VIEW COMPLETED DATE/TME: 02/15/2019 03:06 CLINICAL HISTORY: 48 years, Female, partial ETT dislodgement; ARDS/resp failure COMPARISON: February 14, 2019 5:59 AM FINDINGS: The support tubes and right IJ central line are unchanged in position. AICD from a left subclavian approach. Diffuse bilateral patchy interstitial opacities have improved since the prior study. Stable cardiomegaly. No definite pleural abnormalities. IMPRESSION: Diffuse persistent but improving interstitial and alveolar opacities throughout both lungs. Stable cardiomegaly.
[2019-02-15] MEDS: METHYLPREDNISOLONE INJ 125 MG/2 ML SDV IV SCH ×3 (06:17→21:44)
[2019-02-15] MEDS: VANCOMYCIN HCL 750 MG in DEXTROSE 5%-WATER 250 ML IV SCH ×2 (06:17→18:28)
[2019-02-15 06:37] LABS: ABSOLUTE LYMPHOCYTES (AUTO) 0.3 10^3/uL (0.5-4.7); ABSOLUTE MONOCYTES (AUTO) 0.4 10^3/uL (0.1-1.4); BASOPHILS % (AUTO) 0.4 % (0-2); HEMATOCRIT 37.2 % (36.0-47.0); HEMOGLOBIN 11.9 g/dL (12.0-15.5); LYMPHOCYTES % (AUTO) 6.1 % (13-45); MEAN CORPUSCULAR HEMOGLOBIN 28.5 pg (27.0-33.4); MEAN CORPUSCULAR VOLUME 89 fl (80-97); MONOCYTES % (AUTO) 7.7 % (3-13); PLATELET COUNT 183 10^3/uL (150-450); RED BLOOD COUNT 4.18 10^6/uL (3.72-5.28); RED CELL DISTRIBUTION WIDTH 19.6 % (11.5-14.0); SEGMENTED NEUTROPHILS % (AUTO) 85.8 % (42-78); TOTAL CELLS COUNTED % (AUTO) 100 %; WHITE BLOOD COUNT 4.6 10^3/uL (4.0-10.5)
[2019-02-15 06:47] LABS: ALKALINE PHOSPHATASE 160 U/L (38-126); ANION GAP 5 (5-19); ASPARTATE AMINO TRANSFERASE 101 U/L (14-36); BILIRUBIN,DIRECT 1.2 mg/dL (0.0-0.4); BILIRUBIN,TOTAL 1.9 mg/dL (0.2-1.3); BLOOD UREA NITROGEN 60 mg/dL (7-20); CALCIUM 8.7 mg/dL (8.4-10.2); CARBON DIOXIDE 35 mmol/L (22-30); CHLORIDE 111 mmol/L (98-107); GLUCOSE 285 mg/dL (75-110); POTASSIUM 3.6 mmol/L (3.6-5.0); TOTAL PROTEIN 6.6 g/dL (6.3-8.2)
[2019-02-15 07:06] LABS: ARTERIAL BLOOD BASE EXCESS -5.7 mmol/L; ARTERIAL BLOOD FIO2 50%; ARTERIAL BLOOD H2CO3 0.91 mmol/L (1.05-1.35); ARTERIAL BLOOD HCO3 18.3 mmol/L (20-24); ARTERIAL BLOOD O2 SATURATION 97.7 % (94-98); ARTERIAL BLOOD PCO2 30.3 mmHg (35-45); ARTERIAL BLOOD TOTAL CO2 19.2 mmol/L (21-25)
--- NOTE | 2019-02-15 08:30 | Progress Note ---
Provider Note Provider Note: [facility] Telephone Advice Consultation Chart reviewed. Patient is a 48-year-old woman with CAD s/p cardiac stents and CABG, CHF (EF 20-25% s/p AICD), morbid obesity, COPD with multiple intubations in the past, recent vaping, marijuana and tobacco use who was admitted in [facility] due to COPD exacerbation, respiratory cultures at that time grew MRSA. She recovered from that event and was readmitted on 02/08 with lethargy and worsening shortness of breath. She was intubated in the ED. Her CXR at that time showed airspace disease in the right lung base. She had a central line in the right IJ placed, Her creatinine was 1.77. BNP 7,610. A repeat CXR was demonstrating bibasliar consolidations and CT scan with groundglass opacities and bibasilar consolidations. Tracheal aspirate was positive for MRSA. 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 Patient was started on vancomycin. She had a bronchoscopy and BAL on 02/12. There weren't significant secretions or purulence, but erythema, edema and narrowing of the airways. She had significant hypoxemia despite high PEEP requiring further changes in parameter of the vent to improve her ventilation. Her blood cultures on admission were negative, but positive on 02/12 with MRSA both sets. A repeat chest imaging on 02/13 demonstrated worsening opacities. A JOSS was done and fibrinous tissue was observed in an AICD lead. Vancomycin started. ID consulted for recommendations. PMH: Morbid obesity CAD CHF COPD A fib PSH: C sections CABG 2007 Coronary stents Hysterectomy AICD Allergies egg [Egg] Allergy (Verified 10/04/18 00:18) hydrocodone [From Vicodin] Allergy (Verified 10/04/18 00:18) propoxyphene [From Darvocet-N] Allergy (Verified 10/04/18 00:18) amiodarone Adverse Reaction (Verified 10/04/18 00:18) Respiratory distress diphenhydramine HCl [From Benadryl] Adverse Reaction (Verified 10/04/18 00:18) chest pain, bigemeny rhythm Current Home Medications Alprazolam [Xanax 0.5 mg Tablet] 0.5 mg PO Q6HP PRN 02/08/19 [History] Amiodarone HCl [Cordarone 200 mg Tablet] 400 mg PO DAILY 02/08/19 [History] Apixaban [Eliquis 5 mg Tablet] 5 mg PO BID 02/08/19 [History] Aspirin [Ecotrin 81 mg EC Tablet] 81 mg PO DAILY 02/08/19 [History] Atorvastatin Calcium [Lipitor 80 mg Tablet] 80 mg PO QHS 02/08/19 [History] Buspirone HCl [Buspar 10 mg Tablet] 10 mg PO BID 02/08/19 [History] Famotidine [Pepcid 40 mg Tablet] 40 mg PO BID 02/08/19 [History] Furosemide [Lasix 80 mg Tablet] 80 mg PO BID 02/08/19 [History] Isosorbide Mononitrate [Imdur 60 mg Tablet.er] 60 mg PO DAILY 02/08/19 [History] Melatonin [Melatonin 1 mg Tablet] 1 mg PO QHS 02/08/19 [History] Metoprolol Succinate [Toprol Xl 50 mg Tab.sr] 50 mg PO DAILY 02/08/19 [History] Nitroglycerin [Nitrostat 0.4 mg (1/150 Gr) Tabs 25/Bottle] 0.4 mg SL Q5MP PRN 02/08/19 [History] Paroxetine HCl [Paxil 20 mg Tablet] 20 mg PO DAILY 02/08/19 [History] Sacubitril/Valsartan [Entresto 97 mg/103 mg Tablet] 1 tab PO BID 02/08/19 [History] Vital Signs: Temp Pulse Resp BP Pulse Ox 100.4 F 60 20 118/74 97 02/15/19 07:00 02/14/19 20:00 02/15/19 07:00 02/14/19 18:00 02/15/19 07:00 Intake & Output 02/14/19 02/15/19 02/16/19 06:59 06:59 06:59 Intake Total 1855 2340 Output Total 2370 1290 Balance -515 1050 Weight 109.3 kg 112.3 kg Weight/Height Weight 112.3 kg Height 5 ft 4 in Laboratories: 02/15/19 06:13 02/15/19 06:13 MCV 89 fl (80-97) 02/15/19 06:13 MCH 28.5 pg (27.0-33.4) 02/15/19 06:13 MCHC 32.0 g/dL (32.0-36.0) 02/15/19 06:13 RDW 19.6 % (11.5-14.0) H 02/15/19 06:13 Seg Neutrophils % 85.8 % (42-78) H 02/15/19 06:13 Carbonic Acid 0.91 mmol/L (1.05-1.35) L 02/15/19 06:40 HCO3/H2CO3 Ratio 20:1 02/15/19 06:40 ABG pH 7.40 (7.35-7.45) 02/15/19 06:40 ABG pCO2 30.3 mmHg (35-45) L 02/15/19 06:40 ABG pO2 102.0 mmHg (80-100) H 02/15/19 06:40 ABG HCO3 18.3 mmol/L (20-24) L 02/15/19 06:40 ABG O2 Saturation 97.7 % (94-98) 02/15/19 06:40 ABG Base Excess -5.7 mmol/L 02/15/19 06:40 FiO2 50% 02/15/19 06:40 Chloride 111 mmol/L (98-107) H 02/15/19 06:13 Carbon Dioxide 35 mmol/L (22-30) H 02/15/19 06:13 Anion Gap 5 (5-19) 02/15/19 06:13 Est GFR ( Amer) 56 (>60) L 02/15/19 06:13 Est GFR (Non-Af Amer) Cancelled 02/08/19 04:06 Glucose 285 mg/dL (75-110) H 02/15/19 06:13 Lactic Acid 2.6 mmol/L (0.7-2.1) H 02/14/19 04:50 Calcium 8.7 mg/dL (8.4-10.2) 02/15/19 06:13 Phosphorus 5.0 mg/dL (2.5-4.5) H 02/15/19 06:13 Magnesium 2.6 mg/dL (1.6-2.3) H 02/15/19 06:13 Total Bilirubin 1.9 mg/dL (0.2-1.3) H 02/15/19 06:13 AST 101 U/L (14-36) H 02/15/19 06:13 Alkaline Phosphatase 160 U/L (38-126) H 02/15/19 06:13 Ammonia 29.2 umol/L (9-33) 02/13/19 06:51 Total Protein 6.6 g/dL (6.3-8.2) 02/15/19 06:13 Albumin 3.0 g/dL (3.5-5.0) L 02/15/19 06:13 Triglycerides 47 mg/dL (<150) 02/08/19 05:30 TSH 1.34 uIU/mL (0.47-4.68) 02/11/19 03:18 Free T4 1.69 ng/dL (0.78-2.19) 02/11/19 03:18 Free T3 pg/mL 2.48 pg/mL (2.77-5.27) L 02/11/19 03:18 Urine Color YELLOW 02/13/19 20:32 Urine Appearance CLEAR 02/13/19 20:32 Urine pH 6.0 (5.0-9.0) 02/13/19 20:32 Ur Specific [place] 1.020 02/13/19 20:32 Urine Protein 100 mg/dL (NEGATIVE) H 02/13/19 20:32 Urine Glucose (UA) 50 mg/dL (NEGATIVE) H 02/13/19 20:32 Urine Ketones NEGATIVE mg/dL (NEGATIVE) 02/13/19 20:32 Urine Blood SMALL (NEGATIVE) H 02/13/19 20:32 Urine Nitrite NEGATIVE (NEGATIVE) 02/13/19 20:32 Ur Leukocyte Esterase NEGATIVE (NEGATIVE) 02/13/19 20:32 Urine WBC (Auto) 2 /HPF 02/13/19 20:32 Urine RBC (Auto) 5 /HPF 02/13/19 20:32 02/12/19 06:02 Blood Blood Culture (PCR) - Final Staphylococcus Aureus 02/12/19 06:02 Blood Blood Culture - Final Mrsa (Meth Resis Staph Aureus) 02/12/19 05:39 Blood Blood Culture (PCR) - Final Staphylococcus Aureus 02/12/19 05:39 Blood Blood Culture - Final Mrsa (Meth Resis Staph Aureus) 02/12/19 04:37 Bronchial Washings Gram Stain - Final 02/12/19 04:37 Bronchial Washings Bronchial Washings Culture - Final Mrsa (Meth Resis Staph Aureus) Normal Evelyn Absent 02/14/19 Blood In Process 02/08/19 02/08/19 02/08/19 04:06 04:06 05:30 Creatine Kinase Cancelled 33 CK-MB (CK-2) Cancelled Troponin I Cancelled NT-Pro-B Natriuret Pep Cancelled 02/08/19 02/11/19 02/13/19 05:45 03:18 01:22 Creatine Kinase CK-MB (CK-2) < 0.22 Troponin I 0.043 NT-Pro-B Natriuret Pep 7610 H 1970 H 37581 H Radiology: Chest CT 02/10/19 00:00 IMPRESSION: No pneumothorax. No pleural effusions. Bibasilar consolidation in both lower lobes. Slightly increased interstitial thickening, basilar predominance. Scattered pulmonary cysts and ground-glass opacities are again noted. Tubes and lines in expected positions. Chest X-Ray 02/15/19 03:06 IMPRESSION: Diffuse persistent but improving interstitial and alveolar opacities throughout both lungs. Stable cardiomegaly. Assessment and Recommendations: Patient with multiple medical problems. Acute respiratory failure multifactoria l due to COPD, amiodarone toxicity, CHF, vaping/tobacco/marijuana use, MRSA pneumonia. She is on linezolid that will inhibit toxin production as well and has shown to improve outcomes in cases of MRSA pneumonia. I don't expect treatment with linezolid to be prolonged (probably 7-10 days) as this doesn't seem to be a case of necrotizing pneumonia. Bronchoscopy report didn't describe secretions or mucus plugs. CT scan not suggestive of a necrotizing process. Her respiratory cultures back in December were positive for MRSA, she is probably colonized, which increases the risk of infection as well. In terms of MRSA bacteremia, it is interesting that blood cultures on admission were negative, but both sets positive on 02/12. She had a CVL placed on 02/08, if still in will recommend to discontinue when feasible. JOSS has some fibrinous tissue in the leads that can be suspicious for lead endocarditis. For cardiac device infections, guidelines recommend explantation of the device and repeating cultures afterwards. A new device can be placed after 72 hr of negative cultures. Duration f therapy is 4-6 weeks after explantation of the device. She is on vancomycin, keep trough 15-20 and monitor GFR. She is critically ill, therefore might have to wait for this to be done. From ID standpoint, continue linezolid to complete 7 days of therapy. Continue vancomycin. Follow blood cultures results from 02/14. Ideally would add rifampin once bacteremia cleared from the bloodstream, but there might be significant drug-drug interactions. May discuss this with pharmacy. Vy Rojo MD [facility] Infectious Disease [phone]
[2019-02-15] MEDS: FAMOTIDINE INJ/PF 20 MG/2 ML SDV IV SCH ×2 (11:06→21:44)
[2019-02-15] MEDS: METOPROLOL TARTRATE 50 MG TABLET NG SCH (11:07)
[2019-02-15] MEDS: LINEZOLID 600 MG/300 ML RTUPB IV SCH ×2 (11:07→21:44)
[2019-02-15] MEDS: BUSPIRONE HCL 10 MG TABLET NG SCH ×2 (11:07→21:44)
[2019-02-15] MEDS: AMINO AC/PROTEIN HYDR/WHEY PRO 11 GM/45 ML PKT NG SCH ×4 (11:08→21:44)
[2019-02-15] MEDS: HEPARIN SODIUM,PORCINE/D5W 25,000 UNIT/250 ML RTUINJ IV PRN (13:49)
--- NOTE | 2019-02-15 18:35 | Progress Note ---
Provider Note Provider Note: CARDIOLOGY PROGRESS NOTE by Dr. Griselda Cruz on 02/15/2019. Subjective: The patient continues to be intubated and sedated. She does have a temperature. The patient's blood cultures came back positive again for MRSA. Hence there is high suspicion of lead infection/endocarditis. Hence the thought processes that the AICD system needs to be explanted. There is no arrhythmias on the monitor. There is no firing of the AICD. The patient's blood pressure is stable on Primacor. She is also ventilation much easier. Her urine output is also picked up. Note that the patient's Eliquis has been stopped and the patient is on IV heparin. PHYSICAL EXAMINATION: The patient is morbidly obese. She is not fighting the ventilator. Selected Entries 02/15/19 18:00 Temperature 101.3 F H Temperature Core Source Pulse Rate 60 Respiratory 20 Rate Blood Pressure 132/75 H [Left Upper Arm ] Blood Pressure 94 Mean [Left Upper Arm] Blood Pressure 132 Systolic [Left Upper Arm] O2 Sat by Pulse 99 Oximetry Oxygen Delivery Mechanical Method ( Ventilator includes room air) Percent of 50 Oxygen HEAD: Is atraumatic normocephalic. EYES: Pupils are equal round regular reactive to light. HEENT is negative. SKIN: There is no skin rashes or skin lesions. There is no particular ecchymosis. NECK: Is supple. There is mild JVD present. Carotids are equal there is no bruits. There is no lymphadenopathy. There is no goiter. There is no accessory muscle respiration use. Trachea central. LUNGS: Shows bibasilar rales of CHF. There is a dry crackles scattered, and wheezing throughout the lung. There is also dry crackles in the right lower lobe. There is diminished air entry. On percussion there is hyperresonance. On palpation there is no chest wall tenderness. HEART: S1-S2 is heard. There is no S3 gallop. There is no S4 gallop. There is systolic murmur mitral regurgitation tricuspid regurgitation present. There is no aortic stenosis murmur. There is no aortic insufficiency murmur. There is no rub. ABDOMEN: Is obese. Nontender. There is no hepatosplenomegaly. Bowel sounds are well heard. There is no rebound guarding or rigidity. EXTREMITIES: Femorals are deep. Femorals are diminished. There is no femoral bruits. There is decreased leg pulses. There is mild pedal edema. There is no DVT or cellulitis. There is no calf tenderness. RICE DRIER and psychiatric examination not performed due to patient being on the ventilator, and on sedation. Labs- All tests 24 hr 02/15/19 02/15/19 02/15/19 06:13 06:13 06:13 WBC 4.6 RBC 4.18 Hgb 11.9 L Hct 37.2 MCV 89 MCH 28.5 MCHC 32.0 RDW 19.6 H Plt Count 183 Lymph % (Auto) 6.1 L [place] % (Auto) 7.7 Eos % (Auto) 0.0 Baso % (Auto) 0.4 Absolute Neuts (auto) 4.0 Absolute Lymphs (auto) 0.3 L Absolute Monos (auto) 0.4 Absolute Eos (auto) 0.0 Absolute Basos (auto) 0.0 Seg Neutrophils % 85.8 H APTT 80.9 H Carbonic Acid HCO3/H2CO3 Ratio ABG pH ABG pCO2 ABG pO2 ABG HCO3 ABG Total CO2 ABG O2 Saturation ABG Base Excess FiO2 Sodium 150.8 H Potassium 3.6 Chloride 111 H Carbon Dioxide 35 H Anion Gap 5 BUN 60 H Creatinine 1.25 Est GFR ( Amer) 56 L Est GFR (MDRD) Non-Af 46 L Glucose 285 H Calcium 8.7 Phosphorus 5.0 H Magnesium 2.6 H Total Bilirubin 1.9 H Direct Bilirubin 1.2 H Neonat Total Bilirubin Not Reportable Neonat Direct Bilirubin Not Reportable Neonat Indirect Bili Not Reportable AST 101 H ALT 320 Alkaline Phosphatase 160 H Total Protein 6.6 Albumin 3.0 L 02/15/19 02/15/19 06:40 22:10 WBC RBC Hgb Hct MCV MCH MCHC RDW Plt Count Lymph % (Auto) [place] % (Auto) Eos % (Auto) Baso % (Auto) Absolute Neuts (auto) Absolute Lymphs (auto) Absolute Monos (auto) Absolute Eos (auto) Absolute Basos (auto) Seg Neutrophils % APTT Carbonic Acid 0.91 L 1.40 H HCO3/H2CO3 Ratio 20:1 21:1 ABG pH 7.40 7.42 ABG pCO2 30.3 L 46.4 H ABG pO2 102.0 H 92.0 ABG HCO3 18.3 L 29.5 H ABG Total CO2 19.2 L 30.9 H ABG O2 Saturation 97.7 97.1 ABG Base Excess -5.7 4.3 FiO2 50% 50% Sodium Potassium Chloride Carbon Dioxide Anion Gap BUN Creatinine Est GFR ( Amer) Est GFR (MDRD) Non-Af Glucose Calcium Phosphorus Magnesium Total Bilirubin Direct Bilirubin Neonat Total Bilirubin Neonat Direct Bilirubin Neonat Indirect Bili AST ALT Alkaline Phosphatase Total Protein Albumin Chest X-Ray 02/08/19 00:00 IMPRESSION: Slight advancement of endotracheal tube. Otherwise no change. Chest X-Ray 02/08/19 00:00 IMPRESSION: NO PNEUMOTHORAX FOLLOWING CENTRAL LINE PLACEMENT. OTHERWISE NO CHANGE. Chest X-Ray 02/08/19 03:15 IMPRESSION: Cardiomegaly. Endotracheal and enteric tubes are in place. Postsurgical changes of the mediastinum. Airspace opacities right lung base. copyright 2010 [employer]- All Rights Reserved Chest CT 02/10/19 00:00 IMPRESSION: No pneumothorax. No pleural effusions. Bibasilar consolidation in both lower lobes. Slightly increased interstitial thickening, basilar predominance. Scattered pulmonary cysts and ground-glass opacities are again noted. Tubes and lines in expected positions. Chest X-Ray 02/12/19 00:00 IMPRESSION: 1. Bilateral perihilar airspace consolidation which may be due to edema, atelectasis or pneumonia. 2. Marked cardiomegaly. 3. Remote postsurgical changes of the mediastinum. 4. Life support lines and tubes as described above. Chest X-Ray 02/13/19 06:00 IMPRESSION: STABLE APPEARANCE OF THE CHEST. SUPPORT DEVICES UNCHANGED. Chest X-Ray 02/14/19 06:00 IMPRESSION: Mildly worsened bibasilar predominant opacities, likely edema although infection not excluded. Stable support lines and tubes as above. Chest X-Ray 02/15/19 03:06 IMPRESSION: Diffuse persistent but improving interstitial and alveolar opacities throughout both lungs. Stable cardiomegaly. IMPRESSION/RECOMMENDATION: 1. Acute on chronic respiratory failure. This is multifactorial secondary to the causes listed below. Continue ventilator support and supplemental oxygen. 2. Acute on chronic systolic heart failure. Patient with LV ejection fraction of 25%. Agree with continuing aggressive diuresis with Lasix. And continue the patient's Entresto and beta-rip. Continue the patient on milrinone. If his systolic blood pressure remains high consider starting IV nitroglycerin. 3. Acute exacerbation COPD: Continue bronchodilators and ventilatory support. 4. MRSA pneumonia: Continue antibiotics. 5. 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 Hence would recommend discontinue the patient's amiodarone which has been done. Continue steroids. 6. Acute on chronic kidney disease: Watch renal function as we implement aggressive diuresis. 7. Cardiomyopathy with severely reduced LV ejection fraction. Continue milrinone. 8. Paroxysmal atrial fibrillation: Continue beta-rip and Eliquis. 9. History of ventricular tachycardia, The patient has an AICD placed. If there is recurrence of ventricular tachycardia or major ventricular ectopic a ctivity then would start the patient on small dose of sotalol. Would avoid amiodarone. 10. Hypertension: Blood pressure well controlled, on current medications. 11. Coronary artery disease: History of MA and history of coronary bypass graft surgery. No evidence of acute coronary syndrome/non-ST ST elevation MA this admission. 12. Obstructive sleep apnea. Note patient is noncompliant with CPAP. Most likely has significant pulmonary hypertension. 13. AICD placement: Note the patient's basal rate is around 60 bpm. If the patient's heart failure continues then would recommend increasing the basal heart rate to 80 bpm to help combat the heart failure along with diuretics. 14. MRSA bacteremia: Continue antibiotics. Repeat blood cultures are positive again for MRSA. With the lead insertion site showing fibrinous changes, and with the repeat culture showing MRSA there is high suspicion for infection of the AICD leads. Hence bank boss is strongly recommending that the patient be transferred to [facility] for explantation of the AICD system. Interrogation of the AICD shows that it is functioning normally. The lead impedance of the atrial, right and ventricular left ventricular leads are separate. Will discuss with [facility] cardiothoracic surgery about need for explantation of the AICD system. Medications reviewed. Medical regimen and management plan discussed with the bank boss medical decision making is of high complexity. 40 minutes spent on this patient more than 50% of time spent in direct patient care. Will follow.
--- NOTE | 2019-02-15 20:44 | PDOC CRITICAL CARE PROG REPORT ---
General Date:: 02/15/19 ICU Day:: 7 Ventilator Day:: 7 Hospital Day:: 7 Resuscitation Status: Full Code Medical Power of Chaperone: DaughterAparna Events in the past 12 to 24 Hours:: Patient's respiratory status is slowly improving. Her P high is now been reduced to 22 her time I is been stretched out to 5 seconds. Is responsive on Precedex. She has had no further hemodynamic instability. Notably milrinone is noted to be at 0.5 mics. Review of systems relevant to events:: Has had no hemoptysis. Reduction in ventilator settings has had no hypoxia. Irrigation of the impedance of the pacemaker shows no impedance dysfunction. Notably blood cultures from the 18th are positive. Reason for ICU Addmission:: Respiratory failure - Medications: Vasopressors:: Milrinone only Sedation:: Precedex Physical Exam Vital Signs: Temp Pulse Resp BP Pulse Ox 98.8 F 60 20 121/70 97 02/15/19 08:00 02/15/19 08:00 02/15/19 08:00 02/15/19 08:00 02/15/19 08:00 Intake & Output 02/14/19 02/15/19 02/16/19 06:59 06:59 06:59 Intake Total 1855 2340 188 Output Total 2370 1290 190 Balance -515 1050 -2 Weight 109.3 kg 112.3 kg Weight/Height Weight 112.3 kg Height 5 ft 4 in General appearance: PRESENT: no acute distress, morbidly obese, well-nourished Exam: Debated responsive nontoxic older appearing 48-year-old black female no active distress. Eye exam: PRESENT: conjunctiva pink, PERRLA. ABSENT: conjunctival injection, nystagmus Mouth exam: PRESENT: moist, neck supple Neck exam: PRESENT: other - CVC clean, dry and intact. ABSENT: lymphadenopathy, tracheal deviation Respiratory exam: PRESENT: clear to auscultation renu, unlabored. ABSENT: accessory muscle use, rales, rhonchi, tachypnea, wheezes Cardiovascular exam: PRESENT: RRR. ABSENT: diastolic murmur, rubs, systolic murmur Pulses: PRESENT: +1 pedal pulses bilateral GI/Abdominal exam: PRESENT: normal bowel sounds, soft. ABSENT: distended, guarding, mass, organolmegaly, rebound, tenderness Extremities exam: PRESENT: pedal edema Musculoskeletal exam: ABSENT: deformity, dislocation Neurological exam: PRESENT: altered - Responsive to voice, follows commands Psychiatric exam: PRESENT: appropriate affect. ABSENT: agitated Skin exam: PRESENT: dry, intact, warm. ABSENT: cyanosis, rash Tubes/Lines: PRESENT: Endotracheal Tube, Central Line, Arterial Catheter, Other - ritter and OGT Laboratory/Radiographs Laboratory Results: 02/15/19 06:13 02/15/19 06:13 02/14/19 02/14/19 02/14/19 11:07 20:45 22:20 WBC RBC Hgb Hct MCV MCH MCHC RDW Plt Count Seg Neutrophils % Carbonic Acid 0.51 L 1.16 HCO3/H2CO3 Ratio 23:1 23:1 ABG pH 7.46 H 7.46 H ABG pCO2 16.9 L* 38.7 ABG pO2 88.9 74.7 L ABG HCO3 11.8 L 26.8 H ABG O2 Saturation 97.5 95.7 ABG Base Excess -11.1 2.9 FiO2 50 50 Sodium 150.1 H Potassium 3.7 Chloride 107 Carbon Dioxide 29 Anion Gap 14 BUN 58 H Creatinine 1.25 Est GFR ( Amer) 56 L Glucose 287 H Calcium 9.1 Phosphorus 4.0 Magnesium 2.8 H Total Bilirubin 2.2 H AST 185 H Alkaline Phosphatase 138 H Total Protein 6.4 Albumin 3.0 L 02/15/19 02/15/19 02/15/19 06:13 06:13 06:40 WBC 4.6 RBC 4.18 Hgb 11.9 L Hct 37.2 MCV 89 MCH 28.5 MCHC 32.0 RDW 19.6 H Plt Count 183 Seg Neutrophils % 85.8 H Carbonic Acid 0.91 L HCO3/H2CO3 Ratio 20:1 ABG pH 7.40 ABG pCO2 30.3 L ABG pO2 102.0 H ABG HCO3 18.3 L ABG O2 Saturation 97.7 ABG Base Excess -5.7 FiO2 50% Sodium 150.8 H Potassium 3.6 Chloride 111 H Carbon Dioxide 35 H Anion Gap 5 BUN 60 H Creatinine 1.25 Est GFR ( Amer) 56 L Glucose 285 H Calcium 8.7 Phosphorus 5.0 H Magnesium 2.6 H Total Bilirubin 1.9 H AST 101 H Alkaline Phosphatase 160 H Total Protein 6.6 Albumin 3.0 L 02/12/19 06:02 Blood Blood Culture (PCR) - Final Staphylococcus Aureus 02/12/19 06:02 Blood Blood Culture - Final Mrsa (Meth Resis Staph Aureus) 02/12/19 05:39 Blood Blood Culture (PCR) - Final Staphylococcus Aureus 02/12/19 05:39 Blood Blood Culture - Final Mrsa (Meth Resis Staph Aureus) 02/12/19 04:37 Bronchial Washings Gram Stain - Final 02/12/19 04:37 Bronchial Washings Bronchial Washings Culture - Final Mrsa (Meth Resis Staph Aureus) Normal Evelyn Absent 02/08/19 02/08/19 02/08/19 04:06 04:06 05:30 Creatine Kinase Cancelled 33 CK-MB (CK-2) Cancelled Troponin I Cancelled NT-Pro-B Natriuret Pep Cancelled 02/08/19 02/11/19 02/13/19 05:45 03:18 01:22 Creatine Kinase CK-MB (CK-2) < 0.22 Troponin I 0.043 NT-Pro-B Natriuret Pep 7610 H 1970 H 39881 H Impressions: Chest CT 02/10/19 00:00 IMPRESSION: No pneumothorax. No pleural effusions. Bibasilar consolidation in both lower lobes. Slightly increased interstitial thickening, basilar predominance. Scattered pulmonary cysts and ground-glass opacities are again noted. Tubes and lines in expected positions. Chest X-Ray 02/15/19 03:06 IMPRESSION: Diffuse persistent but improving interstitial and alveolar opacities throughout both lungs. Stable cardiomegaly. All labs, radiographs, diagnostic studies and EKGs were personally reviewed: Yes In addition, reports of radiographic and diagnostic studies were read: Yes Assessment and Plan - Diagnosis (1) ARDS (adult respiratory distress syndrome) Is this a current diagnosis for this admission?: Yes Plan: Continue to wean Phigh and lengthen THigh. CXR improving (2) Pneumonitis Is this a current diagnosis for this admission?: Yes Plan: Concern for likely Amiodarone induced, however admitted to [facility] on last admission. Will start weaning milrinone and wean Phigh (3) Ischemic cardiomyopathy with implantable cardioverter-defibrillator (ICD) Is this a current diagnosis for this admission?: Yes (4) Cardiomyopathy, ischemic Is this a current diagnosis for this admission?: Yes Plan: Bi-ventricular, chronic systolic (5) Atrial fibrillation Qualifiers: Atrial fibrillation type: longstanding persistent Qualified Code(s): I48.11 - Longstanding persistent atrial fibrillation Is this a current diagnosis for this admission?: Yes Plan: NOAC on hold. On heparin drip (6) Sepsis Qualifiers: Sepsis type: methicillin resistant Staphylococcus aureus Sepsis acute organ dysfunction status: with acute organ dysfunction Severe sepsis acute organ dysfunction type: acute respiratory failure Acute respiratory failure type: with hypoxia Severe sepsis shock status: with septic shock Qualified Code(s): A41.02 - Sepsis due to Methicillin resistant Staphylococcus aureus; R65.21 - Severe sepsis with septic shock; J96.01 - Acute respiratory failure with hypoxia Is this a current diagnosis for this admission?: Yes (7) MRSA bacteremia Is this a current diagnosis for this admission?: Yes Plan Summary: 02.15.19: Patient has persistent bacteremia. Given the state it is still conceivable that there is fibrinous exudate on the pacemaker wire. Will discuss with infectious disease and CT surgery to determine whether she will need transfer for removal of the pacemaker leads. I am concerned because her initial blood cultures on admission were negative for bacteremia. Does have MRSA pneumonia and the blood cultures may be reflective of this. Continue to repeat blood cultures every 48 hours. Pulmonary status has improved and her ARDS is slowly improving. Have decreased P high and have increased her time high. To new to attempt to wean. X-rays notably improving as well. Updated family over the phone and they are aware of the situation. His maker impedance was interrogated and found to be within normal limits. May need transfer 02.14.19: The patient has had subtle improvement and now has no need for Levophed therapy. Fact her blood pressure slightly higher and have increased the milrinone to help supplant hypertension and affect pulmonary hypertension and assist with RV function. Patient has what appears to be an enlarged fibrinous changes of to the pacema ker/AICD lead seen on JOSS. Plan is that if she has persistent bacteremia this will need to be removed. I am concerned that she has amiodarone induced toxicity to her lung as well as possible vaping injury. Normally, in consideration, steroid therapy would need to be increased at pulse dose for 2 to 3 days. Have also screened for autoimmune and vasculitic component all of which are negative. She appears to have some improvement with the use of milrinone and given the need for a PRV will continue this. We will follow microbiologic studies. If further blood cultures are positive we will transition to possible transfer for removal of leads. She may need [facility]. I consulted infectious diseases and discussed the case with them. They are in agreement with our plan but asked that we add vancomycin to cover bacteremia. They would like to continue linezolid which has excellent pulmonary penetration. He may need a CT scan to rule out necrotizing pneumonia however is unable to be transported at this time. We will attempt to contact family to update them. 19: Patient's overall status has improved but she still has significant ARDS. PF ratio is slightly improved FiO2 is being reduced as well as her P high. She has a history of atrial fibrillation with cardiomyopathy and had been on NOAC therapy. We will start her on IV heparin until safety can be assured for NOAC therapy. Patient is on low-dose Levophed and have reduce milrinone 0.2 mcgs. Our hope is to reduce the Levophed further. As her ventilator requirements improved the plan is to wean the milrinone. Patients with advanced ARDS have significant pulmonary hypertension and right ventricular overload. Given her already altered physiology this was necessary to help with oxygenation. We will continue steroid therapy and supportive care. Start nutrition. Patient has bacteremia and will need JOSS. Will start heparin and discontinued 2 hours prior to JOSS. No heparin bolus Attempted to contact family but have not been able to do so. 19: Patient has significant hypoxia with a PF ratio consistent with [place] criteria severe ARDS. Have changed some vent settings to support better ventilation and oxygenation. O2 is now being weaned. On critical care ultrasound she appears to have biventricular systolic dysfunction which we have known about in the past. Given the need for APRV and ARDS induced right ventricular dysfunction we have started her on milrinone to help support forward flow. We will monitor her response to this. Had been diuresed and her IVC is still dilated however she is on APRV which will augment preload. Of interest that she has not become hypotensive. To new to monitor for decompensation including pneumothorax. Concerned that this represents amiodarone toxicity of the lung have continued high-dose steroids which is the only known treatment. At this point she is too hypoxic to allow for bronchoscopy to obtain CD4 CD8 counts. Have attempted to contact family and him waiting call to update them. Critical Time Critical Time (minutes): 45 Level of Care: ICU -: 1. The care of a critical patient is a dynamic process. This note is a chemical sales representative synopsis but static in nature. The timeframe for treatments given in order is not necessary the actual time these treatments may have been done. 2. This patient requires critical care secondary to ongoing requirements for therapy not offered or safe outside the critical care environment. Transfer to a lower level of care with altered life or limb morbidity and mortality. 3. Multidisciplinary rounds completed. 4. ABCDE bundle addressed.
[2019-02-15 22:33] LABS: ARTERIAL BLOOD BASE EXCESS 4.3 mmol/L; ARTERIAL BLOOD HCO3 29.5 mmol/L (20-24); ARTERIAL BLOOD O2 SATURATION 97.1 % (94-98); ARTERIAL BLOOD PCO2 46.4 mmHg (35-45); ARTERIAL BLOOD PH 7.42 (7.35-7.45); ARTERIAL BLOOD TOTAL CO2 30.9 mmol/L (21-25)
[2019-02-15 22:36] LABS: ARTERIAL BLOOD FIO2 50%
[2019-02-16] MEDS: DEXMEDETOMIDINE IN 0.9 % NACL 400 MCG/100 ML RTUPB IV PRN ×7 (02:40→21:37)
[2019-02-16] MEDS: MILRINONE LACTATE/D5W 20 MG/100 ML RTUINJ IV PRN ×3 (03:11→16:28)
[2019-02-16] MEDS: FENTANYL CITRATE/PF 600 MCG/60 ML BAG IV PRN ×4 (03:12→20:50)
[2019-02-16] MEDS: METHYLPREDNISOLONE INJ 125 MG/2 ML SDV IV SCH ×3 (05:57→21:26)
[2019-02-16 06:06] LABS: ARTERIAL BLOOD BASE EXCESS 3.8 mmol/L; ARTERIAL BLOOD H2CO3 1.52 mmol/L (1.05-1.35); ARTERIAL BLOOD HCO3 29.8 mmol/L (20-24); ARTERIAL BLOOD O2 SATURATION 96.5 % (94-98); ARTERIAL BLOOD PCO2 50.4 mmHg (35-45); ARTERIAL BLOOD PH 7.39 (7.35-7.45); ARTERIAL BLOOD PO2 87.9 mmHg (80-100); ARTERIAL BLOOD TOTAL CO2 31.3 mmol/L (21-25)
[2019-02-16 06:07] LABS: ARTERIAL BLOOD FIO2 50%
[2019-02-16 06:12] LABS: HEMATOCRIT 35.9 % (36.0-47.0); HEMOGLOBIN 11.2 g/dL (12.0-15.5); MEAN CORPUSCULAR HEMOGLOBIN 28.2 pg (27.0-33.4); MEAN CORPUSCULAR HGB CONC 31.2 g/dL (32.0-36.0); MEAN CORPUSCULAR VOLUME 90 fl (80-97); PLATELET COUNT 182 10^3/uL (150-450); RED BLOOD COUNT 3.97 10^6/uL (3.72-5.28); WHITE BLOOD COUNT 5.9 10^3/uL (4.0-10.5)
[2019-02-16 06:21] LABS: PHOSPHORUS 5.1 mg/dL (2.5-4.5)
[2019-02-16 06:26] LABS: VANCOMYCIN,TROUGH 9.8 ug/mL (5.0-20.0)
[2019-02-16 06:30] LABS: ABSOLUTE LYMPHOCYTES# (MANUAL) 0.4 10^3/uL (0.5-4.7); ABSOLUTE MONOCYTES # (MANUAL) 0.4 10^3/uL (0.1-1.4); BAND NEUTROPHILS % (MANUAL) 1 % (3-5); BASOPHILS % (MANUAL) 0 % (0-2); EOSINOPHILS % (MANUAL) 0 % (0-6); LYMPHOCYTES % (MANUAL) 6 % (13-45); MONOCYTES % (MANUAL) 6 % (3-13); SEGMENTED NEUTROPHILS % (MAN) 87 % (42-78); TOTAL CELLS COUNTED 100
[2019-02-16 06:31] LABS: ANISOCYTOSIS 2+; PLATELET COMMENT ADEQUATE; POLYCHROMASIA 1+
[2019-02-16] MEDS: VANCOMYCIN HCL 750 MG in DEXTROSE 5%-WATER 250 ML IV SCH (06:51)
--- NOTE | 2019-02-16 08:36 | RADIOLOGY REPORT (SQ) ---
EXAM DESCRIPTION: CHEST SINGLE VIEW COMPLETED DATE/TIME: 02/16/2019 6:57 am REASON FOR STUDY: ARDS COMPARISON: AP view of the chest from 02/15/2019 EXAM PARAMETERS: NUMBER OF VIEWS: One view. TECHNIQUE: An AP view of the chest was obtained. RADIATION DOSE: NA LIMITATIONS: None. FINDINGS: LUNGS AND PLEURA: Unchanged basilar predominant interstitial and alveolar opacities. The costophrenic sulci remain blunted. There is no pneumothorax. MEDIASTINUM AND HILAR STRUCTURES: Stable mediastinal and hilar contours. HEART AND VASCULAR STRUCTURES: Stable enlarged cardiac silhouette. The pulmonary vasculature is stevo stinct. BONES: Status post median sternotomy. The tip of the endotracheal tube projects 4.6 cm above the car damaso. The tip of the enteric tube projects past the gastroesophageal junction and outside the field o f view of the radiograph. The tip of the right IJ central venous catheter projects within the SVC. There is a left subclavian approach ICD in place. HARDWARE: None in the chest. OTHER: No other finding. IMPRESSION: Unchanged radiographic appearance of the chest. TECHNICAL DOCUMENTATION: JOB ID: [id number] [employer]- All Rights Reserved Reading location - IP/workstation name: [email or web address]
[2019-02-16] MEDS: HEPARIN SODIUM,PORCINE/D5W 25,000 UNIT/250 ML RTUINJ IV PRN (08:58)
[2019-02-16] MEDS: LINEZOLID 600 MG/300 ML RTUPB IV SCH ×2 (09:50→21:26)
[2019-02-16] MEDS: METOPROLOL TARTRATE 50 MG TABLET NG SCH (09:50)
[2019-02-16] MEDS: BUSPIRONE HCL 10 MG TABLET NG SCH ×2 (09:50→21:26)
[2019-02-16] MEDS: AMINO AC/PROTEIN HYDR/WHEY PRO 11 GM/45 ML PKT NG SCH ×4 (09:50→21:26)
[2019-02-16] MEDS: SACUBITRIL/VALSARTAN 97 MG/103 MG TABLET NG SCH (10:58)
[2019-02-16] MEDS: FAMOTIDINE 20 MG TABLET PO SCH ×2 (10:58→21:26)
--- NOTE | 2019-02-16 15:34 | PDOC CRITICAL CARE PROG REPORT ---
General Date:: 02/16/19 ICU Day:: 8 Ventilator Day:: 8 Hospital Day:: 8 Resuscitation Status: Full Code Medical Power of Cofounder: DaughterAparna Events in the past 12 to 24 Hours:: 02.16.19: Patient continues to show improvement in her respiratory and ventilator status. Her chest x-ray is improving. As noted yesterday blood cultures from the were positive. Repeat blood cultures were drawn today. 02.15.19: Patient's respiratory status is slowly improving. Her P high is now been reduced to 22 her time I is been stretched out to 5 seconds. Is responsive on Precedex. She has had no further hemodynamic instability. Notably milrinone is noted to be at 0.5 mics. Review of systems relevant to events:: Has had no hemoptysis. Reduction in ventilator settings has had no hypoxia. Irrigation of the impedance of the pacemaker shows no impedance dysfunction. Notably blood cultures from the are positive. Review of systems relevant to events:: Patient has been maintained on antibiotics and this is day 8 of linezolid day 3 of IV vancomycin. She is now off Levophed and milrinone has been weaned to 0.35 without any untoward hemodynamic side effects. Reason for ICU Addmission:: Respiratory failure - Medications: Vasopressors:: Milrinone now at 0.350 mcg Sedation:: Precedex and fentanyl Physical Exam Vital Signs: Temp Pulse Resp BP Pulse Ox 100.4 F 60 10 L 115/65 98 02/16/19 14:00 02/16/19 14:00 02/16/19 14:00 02/16/19 14:00 02/16/19 14:00 Intake & Output 02/15/19 02/16/19 02/17/19 06:59 06:59 06:59 Intake Total 2340 2505 785 Output Total 1290 2195 1070 Balance 1050 310 -285 Weight 112.3 kg 110.1 kg Weight/Height Weight 110.1 kg Height 5 ft 4 in General appearance: PRESENT: no acute distress, morbidly obese, well-developed, well-nourished Exam: Intubated nontoxic ill morbidly obese 48-year-old black female no acute distress is positive to commands Eye exam: PRESENT: conjunctival injection, conjunctiva pink, PERRLA. ABSENT: nystagmus, periorbital swelling, scleral icterus Mouth exam: PRESENT: dry mucosa Neck exam: ABSENT: carotid bruit, JVD, lymphadenopathy, thyromegaly Respiratory exam: PRESENT: crackles - right side, unlabored. ABSENT: rales, rhonchi, tachypnea, wheezes Cardiovascular exam: PRESENT: bradycardia - Paced at 60 Pulses: ABSENT: normal dorsalis pedis pul GI/Abdominal exam: PRESENT: normal bowel sounds, soft. ABSENT: ascites, distended, guarding, mass, organolmegaly, rebound, tenderness Rectal exam: PRESENT: deferred Gentrourinary exam: PRESENT: indwelling catheter Extremities exam: PRESENT: +1 edema. ABSENT: pedal edema Musculoskeletal exam: PRESENT: normal inspection. ABSENT: deformity, dislocation Neurological exam: PRESENT: altered - Responsive to voice and commands. No focal deficits Psychiatric exam: PRESENT: appropriate affect Focused psych exam: ABSENT: psychomotor agitation, restlessness Skin exam: PRESENT: dry, intact, warm. ABSENT: abrasion, cyanosis, rash Tubes/Lines: PRESENT: Endotracheal Tube, Central Line, Arterial Catheter, Peg Tube, Nasogastic Tube, Other - Jones Laboratory/Radiographs Laboratory Results: 02/16/19 05:50 02/15/19 06:13 02/15/19 02/16/19 02/16/19 22:10 05:50 05:50 WBC RBC Hgb Hct MCV MCH MCHC RDW Plt Count Seg Neutrophils % Carbonic Acid 1.40 H 1.52 H HCO3/H2CO3 Ratio 21:1 19:1 ABG pH 7.42 7.39 ABG pCO2 46.4 H 50.4 H ABG pO2 92.0 87.9 ABG HCO3 29.5 H 29.8 H ABG O2 Saturation 97.1 96.5 ABG Base Excess 4.3 3.8 FiO2 50% 50% Phosphorus Magnesium Ammonia < 8.7 L 02/16/19 02/16/19 05:50 05:50 WBC 5.9 RBC 3.97 Hgb 11.2 L Hct 35.9 L MCV 90 MCH 28.2 MCHC 31.2 L RDW 19.0 H Plt Count 182 Seg Neutrophils % Not Reportable Carbonic Acid HCO3/H2CO3 Ratio ABG pH ABG pCO2 ABG pO2 ABG HCO3 ABG O2 Saturation ABG Base Excess FiO2 Phosphorus 5.1 H Magnesium 2.7 H Ammonia 02/14/19 11:07 Blood Blood Culture (PCR) - Final Staphylococcus Aureus 02/14/19 11:42 Blood Blood Culture (PCR) - Final Staphylococcus Aureus 02/08/19 02/08/19 02/08/19 04:06 04:06 05:30 Creatine Kinase Cancelled 33 CK-MB (CK-2) Cancelled Troponin I Cancelled NT-Pro-B Natriuret Pep Cancelled 02/08/19 02/11/19 02/13/19 05:45 03:18 01:22 Creatine Kinase CK-MB (CK-2) < 0.22 Troponin I 0.043 NT-Pro-B Natriuret Pep 7610 H 1970 H 06734 H Impressions: Chest CT 02/10/19 00:00 IMPRESSION: No pneumothorax. No pleural effusions. Bibasilar consolidation in both lower lobes. Slightly increased interstitial thickening, basilar predominance. Scattered pulmonary cysts and ground-glass opacities are again noted. Tubes and lines in expected positions. Chest X-Ray 02/16/19 06:00 IMPRESSION: Unchanged radiographic appearance of the chest. All labs, radiographs, diagnostic studies and EKGs were personally reviewed: Yes In addition, reports of radiographic and diagnostic studies were read: Yes Assessment and Plan - Diagnosis (1) ARDS (adult respiratory distress syndrome) Is this a current diagnosis for this admission?: Yes Plan: Continue to wean Phigh and lengthen THigh. CXR improving Phigh decreased to 20, Plow increased to 5, FiO2 at 50% (2) MRSA (methicillin resistant staphylococcus aureus) pneumonia Qualifiers: Laterality: bilateral Lung location: unspecified part of lung Qualified Code(s): J15.212 - Pneumonia due to Methicillin resistant Staphylococcus aureus Is this a current diagnosis for this admission?: Yes (3) Sepsis Qualifiers: Sepsis type: methicillin resistant Staphylococcus aureus Sepsis acute organ dysfunction status: with acute organ dysfunction Severe sepsis acute organ dysfunction type: acute respiratory failure Acute respiratory failure type: with hypoxia Severe sepsis shock status: with septic shock Qualified Code(s): A41.02 - Sepsis due to Methicillin resistant Staphylococcus aureus; R65.21 - Severe sepsis with septic shock; J96.01 - Acute respiratory failure with hypoxia Is this a current diagnosis for this admission?: Yes (4) MRSA bacteremia Is this a current diagnosis for this admission?: Yes (5) Pneumonitis Is this a current diagnosis for this admission?: Yes Plan: Improving. Concern for likely Amiodarone induced, however admitted to Vaping on last admission. Will start weaning milrinone and wean Phigh (6) Ischemic cardiomyopathy with implantable cardioverter-defibrillator (ICD) Is this a current diagnosis for this admission?: Yes (7) Cardiomyopathy, ischemic Is this a current diagnosis for this admission?: Yes Plan: Bi-ventricular, chronic systolic (8) Atrial fibrillation Qualifiers: Atrial fibrillation type: longstanding persistent Qualified Code(s): I48.11 - Longstanding persistent atrial fibrillation Is this a current diagnosis for this admission?: Yes Plan: NOAC on hold. On heparin drip Plan Summary: 02.16.19: The patient's overall condition continues to improve. I reduce the P high to 20 and adjusted the P low to 5 and affect to wean on a bilevel BiPAP mode. I have reduced her steroids as well will have to watch for recrudescence. We have also reduced her milrinone and all of these combined effects will need to be monitored to see if there is any untoward worsening. Her pneumonitis appears to be a combination of amiodarone toxicity and possible vaping. In addition she has MRSA in her sputum suggestive of MRSA pneumonia. We are in a conundrum because her pacemaker/AICD wires have significant fibrous tissue. All blood cultures taken have been positive x2. The difficulty is determining whether her initial presentation with hypoxia and pneumonia has led to the MRSA bacteremia or the bacteremia from infection on the fibers pacemaker leads has led to pneumonia. I placed a call to Dr. Rojo to discuss the case. I also spoke with our cardiology team who are in touch with the cardiology team at [facility]. The plan for now to continue to monitor for bacteremia and if there is no clearance and certainly if there is worsening she will definitely need referral. In that there is no worsening hypotension or need for vasopressor therapy is unlikely that the bacteremia is related to a fibrous encasement of bacteria. Dr. Martin did speak with the CT surgery team at [facility]. The plan is to continue and complete antibiotics and repeat blood cultures when this is complete. If there is continued bacteremia or if the blood cultures continue to be positive then they would consider explant. At this point given her pneumonia and her overall improvement it is unlikely that the pacemaker wire leads are the culprit for the bacteremia. We will need to be aware of the possible imp lantation of this bacteremia during her active infection. ] Will continue to provide supportive care. Vancomycin levels are low and have increased dose. She has hypernatremia and have started free water flushes. She also has an NG tube which we have converted to an OG tube to prevent sinusitis. 02.15.19: Patient has persistent bacteremia. Given the state it is still conceivable that there is fibrinous exudate on the pacemaker wire. Will discuss with infectious disease and CT surgery to determine whether she will need transfer for removal of the pacemaker leads. I am concerned because her initial blood cultures on admission were negative for bacteremia. Does have MRSA pneumonia and the blood cultures may be reflective of this. Continue to repeat blood cultures every 48 hours. Pulmonary status has improved and her ARDS is slowly improving. Have decreased P high and have increased her time high. To new to attempt to wean. X-rays notably improving as well. Updated family over the phone and they are aware of the situation. His maker impedance was interrogated and found to be within normal limits. May need transfer 02.14.19: The patient has had subtle improvement and now has no need for Levophed therapy. Fact her blood pressure slightly higher and have increased the milrinone to help supplant hypertension and affect pulmonary hypertension and assist with RV function. Patient has what appears to be an enlarged fibrinous changes of to the pacemaker/AICD lead seen on JOSS. Plan is that if she has persistent bacteremia this will need to be removed. I am concerned that she has amiodarone induced toxicity to her lung as well as possible vaping injury. Normally, in consideration, steroid therapy would need to be increased at pulse dose for 2 to 3 days. Have also screened for autoimmune and vasculitic component all of which are negative. She appears to have some improvement with the use of milrinone and given the need for a PRV will continue this. We will follow microbiologic studies. If further blood cultures are positive we will transition to possible transfer for removal of leads. She may need [facility]. I consulted infectious diseases and discussed the case with them. They are in agreement with our plan but asked that we add vancomycin to cover bacteremia. They would like to continue linezolid which has excellent pulmonary penetration. He may need a CT scan to rule out necrotizing pneumonia however is unable to be transported at this time. We will attempt to contact family to update them. 02.13.19: Patient's overall status has improved but she still has significant ARDS. PF ratio is slightly improved FiO2 is being reduced as well as her P high. She has a history of atrial fibrillation with cardiomyopathy and had been on NOAC therapy. We will start her on IV heparin until safety can be assured for NOAC therapy. Patient is on low-dose Levophed and have reduce milrinone 0.2 mcgs. Our hope is to reduce the Levophed further. As her ventilator requirements improved the plan is to wean the milrinone. Patients with advanced ARDS have significant pulmonary hypertension and right ventricular overload. Given her already altered physiology this was necessary to help with oxygenation. We will continue steroid therapy and supportive care. Start nutrition. Patient has bacteremia and will need JOSS. Will start heparin and discontinued 2 hours prior to JOSS. No heparin bolus Attempted to contact family but have not been able to do so. 02.12.19: Patient has significant hypoxia with a PF ratio consistent with Whitmer criteria severe ARDS. Have changed some vent settings to support better ventilation and oxygenation. O2 is now being weaned. On critical care ultrasound she appears to have biventricular systolic dysfunction which we have known about in the past. Given the need for APRV and ARDS induced right ventricular dysfunction we have started her on milrinone to help support forward flow. We will monitor her response to this. Had been diuresed and her IVC is still dilated however she is on APRV which will augment preload. Of interest that she has not become hypotensive. To new to monitor for decompensation including pneumothorax. Concerned that this represents amiodarone toxicity of the lung have continued high-dose steroids which is the only known treatment. At this point she is too hypoxic to allow for bronchoscopy to obtain CD4 CD8 counts. Have attempted to contact family and him waiting call to update them. Critical Time Critical Time (minutes): 65 Level of Care: ICU -: 1. The care of a critical patient is a dynamic process. This note is a nutrition representative synopsis but static in nature. The timeframe for treatments given in order is not necessarily the actual time these treatments may have been done. 2. This patient requires critical care secondary to ongoing requirements for therapy not offered or safe outside the critical care environment. Transfer to a lower level of care will result in altered life or limb morbidity and mortality. 3. Multidisciplinary rounds completed. 4. ABCDE bundle addressed.
--- NOTE | 2019-02-16 16:35 | RADIOLOGY REPORT (SQ) ---
EXAM DESCRIPTION: KUB/ABDOMEN (SINGLE VIEW) COMPLETED DATE/TIME: 02/16/2019 4:19 pm REASON FOR STUDY: OG placement verification COMPARISON: AP view of the chest from 02/15/2019. NUMBER OF VIEWS: One view. TECHNIQUE: Supine radiographic image of the abdomen acquired. LIMITATIONS: None. FINDINGS: The tip and side hole of the enteric tube project past the gastroesophageal junction and w ithin the gastric lumen. The basilar opacities are unchanged from the radiograph on 02/15/2019. The stomach is distended. IMPRESSION: The tip and side hole of the enteric tube project within the gastric lumen. TECHNICAL DOCUMENTATION: JOB ID: [id number] [employer]- All Rights Reserved Reading location - IP/workstation name: [email or web address]
[2019-02-16] MEDS: VANCOMYCIN HCL 1,250 MG in DEXTROSE 5%-WATER 250 ML IV SCH (17:49)
[2019-02-16] MEDS: ACETAMINOPHEN 325 MG SUPP.RECT PR PRN (18:55)
--- NOTE | 2019-02-16 21:15 | Progress Note ---
Provider Note Provider Note: CARDIOLOGY PROGRESS NOTE by Dr. Griselda Martin on 02/16/2019. SUBJECTIVE: Patient remains status quo. She is intubated ventilated. She is still febrile. There is no firing of her AICD. There is no atrial or ventricular arrhythmias seen. There is no recurrence of paroxysmal atrial fibrillation. She continues to be on milrinone. PHYSICAL EXAMINATION: Patient is morbidly obese patient is intubated and on the ventilator. Selected Entries 02/16/19 18:00 Temperature 101.3 F H Pulse Rate 60 Heart Rate ( 60 Monitors) Respiratory 9 L Rate Blood Pressure 113/35 L [Left Upper Arm ] Blood Pressure 61 Mean [Left Upper Arm] Blood Pressure Supine Position [Left Upper Arm] O2 Sat by Pulse 98 Oximetry Oxygen Delivery Mechanical Method ( Ventilator includes room air) Fraction of 50 Inspired Oxygen (FIO2) HEAD: Is atraumatic normocephalic. EYES: Pupils are equal round regular reactive to light. HEENT is negative. SKIN: There is no skin rashes or skin lesions. There is no particular ecchymosis. NECK: Is supple. There is mild JVD present. Carotids are equal there is no bruits. There is no lymphadenopathy. There is no goiter. There is no accessory muscle respiration use. Trachea central. LUNGS: Shows bibasilar rales of CHF. There is a dry crackles scattered, and wheezing throughout the lung. There is also dry crackles in the right lower lobe. There is diminished air entry. On percussion there is hyperresonance. On palpation there is no chest wall tenderness. HEART: S1-S2 is heard. There is no S3 gallop. There is no S4 gallop. There is systolic murmur mitral regurgitation tricuspid regurgitation present. There is no aortic stenosis murmur. There is no aortic insufficiency murmur. There is no rub. ABDOMEN: Is obese. Nontender. There is no hepatosplenomegaly. Bowel sounds are well heard. There is no rebound guarding or rigidity. EXTREMITIES: Femorals are deep. Femorals are diminished. There is no femoral bruits. There is decreased leg pulses. There is mild pedal edema. There is no DVT or ce llulitis. There is no calf tenderness. OTOLARYNGOLOGY PHYSICIAN and psychiatric examination not performed due to patient being on the ventilator, and on sedation. Labs- All tests 24 hr 02/15/19 02/16/19 02/16/19 22:10 05:50 05:50 WBC RBC Hgb Hct MCV MCH MCHC RDW Plt Count Lymph % (Auto) Kimball % (Auto) Eos % (Auto) Baso % (Auto) Absolute Neuts (auto) Absolute Lymphs (auto) Absolute Monos (auto) Absolute Eos (auto) Absolute Basos (auto) Total Counted Seg Neutrophils % Seg Neuts % (Manual) Band Neutrophils % Lymphocytes % (Manual) Monocytes % (Manual) Eosinophils % (Manual) Basophils % (Manual) Abs Neuts (Manual) Abs Lymphs (Manual) Abs Monocytes (Manual) Absolute Eos (Manual) Abs Basophils (Manual) Platelet Comment Polychromasia Anisocytosis APTT Carbonic Acid 1.40 H 1.52 H HCO3/H2CO3 Ratio 21:1 19:1 ABG pH 7.42 7.39 ABG pCO2 46.4 H 50.4 H ABG pO2 92.0 87.9 ABG HCO3 29.5 H 29.8 H ABG Total CO2 30.9 H 31.3 H ABG O2 Saturation 97.1 96.5 ABG Base Excess 4.3 3.8 FiO2 50% 50% Phosphorus Magnesium Ammonia < 8.7 L Time Trough Drawn Vancomycin Trough 02/16/19 02/16/19 02/16/19 05:50 05:50 05:50 WBC 5.9 RBC 3.97 Hgb 11.2 L Hct 35.9 L MCV 90 MCH 28.2 MCHC 31.2 L RDW 19.0 H Plt Count 182 Lymph % (Auto) Not Reportable Kimball % (Auto) Not Reportable Eos % (Auto) Not Reportable Baso % (Auto) Not Reportable Absolute Neuts (auto) Not Reportable Absolute Lymphs (auto) Not Reportable Absolute Monos (auto) Not Reportable Absolute Eos (auto) Not Reportable Absolute Basos (auto) Not Reportable Total Counted 100 Seg Neutrophils % Not Reportable Seg Neuts % (Manual) 87 H Band Neutrophils % 1 L Lymphocytes % (Manual) 6 L Monocytes % (Manual) 6 Eosinophils % (Manual) 0 Basophils % (Manual) 0 Abs Neuts (Manual) 5.2 Abs Lymphs (Manual) 0.4 L Abs Monocytes (Manual) 0.4 Absolute Eos (Manual) 0.0 Abs Basophils (Manual) 0.0 Platelet Comment ADEQUATE Polychromasia 1+ Anisocytosis 2+ APTT 99.1 H Carbonic Acid HCO3/H2CO3 Ratio ABG pH ABG pCO2 ABG pO2 ABG HCO3 ABG Total CO2 ABG O2 Saturation ABG Base Excess FiO2 Phosphorus 5.1 H Magnesium 2.7 H Ammonia Time Trough Drawn Vancomycin Trough 02/16/19 05:50 WBC RBC Hgb Hct MCV MCH MCHC RDW Plt Count Lymph % (Auto) Kimball % (Auto) Eos % (Auto) Baso % (Auto) Absolute Neuts (auto) Absolute Lymphs (auto) Absolute Monos (auto) Absolute Eos (auto) Absolute Basos (auto) Total Counted Seg Neutrophils % Seg Neuts % (Manual) Band Neutrophils % Lymphocytes % (Manual) Monocytes % (Manual) Eosinophils % (Manual) Basophils % (Manual) Abs Neuts (Manual) Abs Lymphs (Manual) Abs Monocytes (Manual) Absolute Eos (Manual) Abs Basophils (Manual) Platelet Comment Polychromasia Anisocytosis APTT Carbonic Acid HCO3/H2CO3 Ratio ABG pH ABG pCO2 ABG pO2 ABG HCO3 ABG Total CO2 ABG O2 Saturation ABG Base Excess FiO2 Phosphorus Magnesium Ammonia Time Trough Drawn 0550 Vancomycin Trough 9.8 Chest X-Ray 02/08/19 00:00 IMPRESSION: Slight advancement of endotracheal tube. Otherwise no change. Chest X-Ray 02/08/19 00:00 IMPRESSION: NO PNEUMOTHORAX FOLLOWING CENTRAL LINE PLACEMENT. OTHERWISE NO CHANGE. Chest X-Ray 02/08/19 03:15 IMPRESSION: Cardiomegaly. Endotracheal and enteric tubes are in place. Postsurgical changes of the mediastinum. Airspace opacities right lung base. copyright 2010 [employer]- All Rights Reserved Chest CT 02/10/19 00:00 IMPRESSION: No pneumothorax. No pleural effusions. Bibasilar consolidation in both lower lobes. Slightly increased interstitial thickening, basilar predominance. Scattered pulmonary cysts and ground-glass opacities are again noted. Tubes and lines in expected positions. Chest X-Ray 02/12/19 00:00 IMPRESSION: 1. Bilateral perihilar airspace consolidation which may be due to edema, atelectasis or pneumonia. 2. Marked cardiomegaly. 3. Remote postsurgical changes of the mediastinum. 4. Life support lines and tubes as described above. Chest X-Ray 02/13/19 06:00 IMPRESSION: STABLE APPEARANCE OF THE CHEST. SUPPORT DEVICES UNCHANGED. Chest X-Ray 02/14/19 06:00 IMPRESSION: Mildly worsened bibasilar predominant opacities, likely edema although infection not excluded. Stable support lines and tubes as above. Chest X-Ray 02/15/19 03:06 IMPRESSION: Diffuse persistent but improving interstitial and alveolar opacities throughout both lungs. Stable cardiomegaly. Chest X-Ray 02/16/19 06:00 IMPRESSION: Unchanged radiographic appearance of the chest. KUB X-Ray 02/16/19 15:49 IMPRESSION: The tip and side hole of the enteric tube project within the gastric lumen. IMPRESSION/RECOMMENDATION: 1. Acute on chronic respiratory failure. This is multifactorial secondary to the causes listed below. Continue ventilator support and supplemental oxygen. 2. Acute on chronic systolic heart failure. Patient with LV ejection fraction of 25%. Agree with continuing aggressive diuresis with Lasix. And continue the patient's Entresto and beta-rip. Continue the patient on milrinone. If his systolic blood pressure remains high consider starting IV nitroglycerin. 3. Acute exacerbation COPD: Continue bronchodilators and ventilatory support. 4. MRSA pneumonia: Continue antibiotics. 5. 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 Hence would recommend discontinue the patient's amiodarone which has been done. Continue steroids. 6. Acute on chronic kidney disease: Watch renal function as we implement aggressive diuresis. 7. Cardiomyopathy with severely reduced LV ejection fraction. Continue milrinone. 8. Paroxysmal atrial fibrillation: Continue beta-rip and Eliquis. 9. History of ventricular tachycardia, The patient has an AICD placed. If there is recurrence of ventricular tachycardia or major ventricular ectopic activity then would start the patient on small dose of sotalol. Would avoid amiodarone. 10. Hypertension: Blood pressure well controlled, on current medications. 11. Coronary artery disease: History of ME and history of coronary bypass graft surgery. No evidence of acute coronary syndrome/non-ST ST elevation ME this admission. 12. Obstructive sleep apnea. Note patient is noncompliant with CPAP. Most likely has significant pulmonary hypertension. 13. AICD placement: Note the patient's basal rate is around 60 bpm. If the patient's heart failure continues then would recommend increasing the basal heart rate to 80 bpm to help combat the heart failure along with diuretics. 14. MRSA bacteremia: Continue antibiotics. Repeat blood cultures are positive again for MRSA. With the lead insertion site showing fibrinous changes, and with the repeat culture showing MRSA there is high suspicion for infection of the AICD leads. Hence team leader surgery is strongly recommending that the patient be transferred to [facility] for explantation of the AICD system. Interrogation of the AICD shows that it is functioning normally. The lead impedance of the atrial, right and ventricular left ventricular leads are acceptable. I have discussed the issue of explantation of the artery system with Dr. Hunter Crowe, cardiothoracic surgeon,[facility], in [place]. He feels that since there is no vegetation seen and since there is already a explainable source for the patient's MRSA bacteremia i.e. MRSA pneumonia, he would not quiñonez to do an explantation of the area system. This is in light of the patient's significant comorbidities. He recommend strongly to continue antibiotic treatment until the patient becomes MRSA negative in the blood, and then rechecking the patient's cultures. If there is recurrence of MRSA bacteremia after. Of no bacterial growth, then would consider explantation. This has been discussed with the team leader surgery Dr. Barron.. Medications reviewed. Medical decision making is of high complexity. Medical regimen and medical management discussed at length with the team leader surgery. 50 minutes spent as patient more than 50% of time spent in direct patient care. Will follow.
[2019-02-17] MEDS: DEXMEDETOMIDINE IN 0.9 % NACL 400 MCG/100 ML RTUPB IV PRN ×3 (00:46→05:52)
[2019-02-17] MEDS: MILRINONE LACTATE/D5W 20 MG/100 ML RTUINJ IV PRN ×3 (00:46→20:40)
[2019-02-17] MEDS: FENTANYL CITRATE/PF 600 MCG/60 ML BAG IV PRN ×3 (02:33→21:22)
[2019-02-17] MEDS: ACETAMINOPHEN 325 MG SUPP.RECT PR PRN (02:35)
[2019-02-17] MEDS: HEPARIN SODIUM,PORCINE/D5W 25,000 UNIT/250 ML RTUINJ IV PRN (04:44)
[2019-02-17] MEDS: VANCOMYCIN HCL 1,250 MG in DEXTROSE 5%-WATER 250 ML IV SCH ×2 (05:05→18:15)
[2019-02-17 05:36] LABS: HEMATOCRIT 35.4 % (36.0-47.0); HEMOGLOBIN 11.2 g/dL (12.0-15.5); MEAN CORPUSCULAR HEMOGLOBIN 28.6 pg (27.0-33.4); MEAN CORPUSCULAR HGB CONC 31.6 g/dL (32.0-36.0); MEAN CORPUSCULAR VOLUME 91 fl (80-97); PLATELET COUNT 188 10^3/uL (150-450); RED CELL DISTRIBUTION WIDTH 19.2 % (11.5-14.0); WHITE BLOOD COUNT 9.5 10^3/uL (4.0-10.5)
[2019-02-17 05:39] LABS: ARTERIAL BLOOD BASE EXCESS 2.6 mmol/L; ARTERIAL BLOOD H2CO3 1.66 mmol/L (1.05-1.35); ARTERIAL BLOOD HCO3 29.4 mmol/L (20-24); ARTERIAL BLOOD O2 SATURATION 96.9 % (94-98); ARTERIAL BLOOD PCO2 55.3 mmHg (35-45); ARTERIAL BLOOD PH 7.34 (7.35-7.45); ARTERIAL BLOOD PO2 96.3 mmHg (80-100); ARTERIAL BLOOD TOTAL CO2 31.1 mmol/L (21-25)
[2019-02-17 05:45] LABS: ARTERIAL BLOOD FIO2 50%
[2019-02-17 05:56] LABS: ALBUMIN 2.8 g/dL (3.5-5.0); ALKALINE PHOSPHATASE 119 U/L (38-126); ANION GAP 6 (5-19); ASPARTATE AMINO TRANSFERASE 52 U/L (14-36); BILIRUBIN,DIRECT 0.7 mg/dL (0.0-0.4); BILIRUBIN,TOTAL 1.2 mg/dL (0.2-1.3); BLOOD UREA NITROGEN 49 mg/dL (7-20); CALCIUM 8.4 mg/dL (8.4-10.2); CARBON DIOXIDE 32 mmol/L (22-30); CHLORIDE 111 mmol/L (98-107); GLUCOSE 369 mg/dL (75-110); POTASSIUM 4.3 mmol/L (3.6-5.0); TOTAL PROTEIN 5.7 g/dL (6.3-8.2)
[2019-02-17 06:22] LABS: ABSOLUTE LYMPHOCYTES# (MANUAL) 0.5 10^3/uL (0.5-4.7); ABSOLUTE MONOCYTES # (MANUAL) 0.3 10^3/uL (0.1-1.4); BASOPHILS % (MANUAL) 0 % (0-2); EOSINOPHILS % (MANUAL) 0 % (0-6); LYMPHOCYTES % (MANUAL) 5 % (13-45); MONOCYTES % (MANUAL) 3 % (3-13); SEGMENTED NEUTROPHILS % (MAN) 92 % (42-78); TOTAL CELLS COUNTED 100
[2019-02-17 06:23] LABS: ANISOCYTOSIS 1+; OVALOCYTES 2+; PLATELET COMMENT ADEQUATE; POIKILOCYTOSIS 1+; TOXIC GRANULATION 1+
[2019-02-17] MEDS ORDERED: ALBUMIN HUMAN 500 ML IV ONE (07:24)
[2019-02-17] MEDS ORDERED: NOREPINEPHRINE BITARTRATE INJ/PF 4 MG/4 ML SDV IV ONE (07:54)
--- NOTE | 2019-02-17 08:53 | RADIOLOGY REPORT (SQ) ---
EXAM DESCRIPTION: CHEST SINGLE VIEW COMPLETED DATE/TIME: 02/17/2019 6:06 am REASON FOR STUDY: resp failure COMPARISON: 02/16/2019 EXAM PARAMETERS: NUMBER OF VIEWS: One view TECHNIQUE: Single frontal radiograph of the chest. RADIATION DOSE: N/A LIMITATIONS: None. FINDINGS: TEMPORARY SUPPORT DEVICES:ETT in expected location. NG tube courses below the haroldo-diaphr agm in to the stomach. Central venous access catheter tip is in expected location. LUNGS AND PLEURA: Asymmetric parenchymal opacity right base. Less prominent changes left base. Slig htly improved. No effusions. No masses. No pneumothorax. MEDIASTINUM AND HILAR STRUCTURES: No masses. Contour normal. HEART AND VASCULAR STRUCTURES: Heart is enlarged with vascular congestion. Normal vascularity. Aorta normal for age. BONES: No acute findings. OTHER: Pacemaker defibrillator. IMPRESSION: Findings most consistent with congestive failure an asymmetric pulmonary edema. Slightl y improved. SUPPORT DEVICE(S) IN EXPECTED LOCATIONS. TECHNICAL DOCUMENTATION: JOB ID: [id number] [employer]- All Rights Reserved Reading location - IP/workstation name: [email or web address]
[2019-02-17] MEDS: METOPROLOL TARTRATE 50 MG TABLET NG SCH (10:14)
[2019-02-17] MEDS: BUSPIRONE HCL 10 MG TABLET NG SCH ×2 (10:15→21:13)
[2019-02-17] MEDS: METHYLPREDNISOLONE INJ 125 MG/2 ML SDV IV SCH ×2 (10:15→21:14)
[2019-02-17] MEDS: SACUBITRIL/VALSARTAN 97 MG/103 MG TABLET NG SCH (10:15)
[2019-02-17] MEDS: FAMOTIDINE 20 MG TABLET PO SCH (10:15)
[2019-02-17] MEDS: AMINO AC/PROTEIN HYDR/WHEY PRO 11 GM/45 ML PKT NG SCH ×4 (10:15→21:13)
[2019-02-17] MEDS ORDERED: DEXTROSE 5%-WATER 250 ML with NOREPINEPHRINE BITARTRATE 4 MG IV PRN ×2 (10:16)
[2019-02-17] MEDS: LINEZOLID 600 MG/300 ML RTUPB IV SCH ×2 (10:40→21:14)
[2019-02-17 15:16] LABS: HEMATOCRIT 34.1 % (36.0-47.0); HEMOGLOBIN 10.5 g/dL (12.0-15.5); MEAN CORPUSCULAR HEMOGLOBIN 28.5 pg (27.0-33.4); MEAN CORPUSCULAR HGB CONC 30.9 g/dL (32.0-36.0); MEAN CORPUSCULAR VOLUME 92 fl (80-97); PLATELET COUNT 233 10^3/uL (150-450); RED CELL DISTRIBUTION WIDTH 18.9 % (11.5-14.0)
[2019-02-17 15:17] LABS: INTERNATIONAL RATION (INR) 1.07; PROTHROMBIN TIME 13.9 SEC (11.4-15.4)
[2019-02-17 15:18] LABS: FIBRINOGEN 296 mg/dL (209-497)
[2019-02-17 15:19] LABS: PARTIAL THROMBOPLASTIN TIME 65.9 SEC (23.5-35.8)
[2019-02-17] MEDS ORDERED: PANTOPRAZOLE SODIUM 80 MG in NORMAL SALINE 100 ML IV ONE (15:30)
[2019-02-17] MEDS: NORMAL SALINE 100 ML with PANTOPRAZOLE SODIUM 80 MG IV PRN ×2 (15:43)
[2019-02-17 15:45] LABS: ABSOLUTE LYMPHOCYTES# (MANUAL) 0.5 10^3/uL (0.5-4.7); ANISOCYTOSIS 1+; BASOPHILS % (MANUAL) 0 % (0-2); EOSINOPHILS % (MANUAL) 0 % (0-6); LYMPHOCYTES % (MANUAL) 3 % (13-45); MONOCYTES % (MANUAL) 0 % (3-13); PLATELET COMMENT ADEQUATE; SEGMENTED NEUTROPHILS % (MAN) 97 % (42-78); TOTAL CELLS COUNTED 100
[2019-02-17] MEDS ORDERED: GLUCAGON,HUMAN RECOMB 1 MG INJ IM PRN (17:12)
[2019-02-17] MEDS ORDERED: DEXTROSE 50%-WATER 25 GM/50 ML DISP.SYRIN IV PRN ×2 (17:12)
[2019-02-17] MEDS ORDERED: DEXTROSE 40% GEL 15 GM TUBE PO PRN ×2 (17:12)
--- NOTE | 2019-02-17 17:20 | PDOC CRITICAL CARE PROG REPORT ---
General Date:: 02/17/19 ICU Day:: 9 Ventilator Day:: 9 Hospital Day:: 9 Resuscitation Status: Full Code Medical Power of Software Quality Specialist: DaughterAparna Events in the past 12 to 24 Hours:: 02.17.19: Patient's ventilator parameters continue to be weaned. She has been changed from APRV to a modified BiPAP APR wean mode. Asked evening she had a small elevation in temperature followed by an elevation to above 101. This morning she developed hypotension. Colloid infusions were being used. Of note, milrinone was decreased to 0.375 and her steroids were reduced as well. She is more alert and now off her Precedex. There is been no excess secretions and chest x-ray is dramatically improved. 02.16.19: Patient continues to show improvement in her respiratory and ventilator status. Her chest x-ray is improving. As noted yesterday blood cultures from the were positive. Repeat blood cultures were drawn today. 02.15.19: Patient's respiratory status is slowly improving. Her P high is now been reduced to 22 her time I is been stretched out to 5 seconds. Is responsive on Precedex. She has had no further hemodynamic instability. Notably milrinone is noted to be at 0.5 mics. Review of systems relevant to events:: Has had no hemoptysis. Reduction in ventilator settings has had no hypoxia. Irrigation of the impedance of the pacemaker shows no impedance dysfunction. Notably blood cultures from the are positive. Review of systems relevant to events:: 02.16.19: Central line sites appear clean dry and intact. Central line and arterial catheters were placed 02/08/2019. There are no excess secretions and chest x-ray is improved. A basic echocardiogram was done with the reduction in milrinone showing an improvement in cardiac function comparative to her admission. Nurses note that they were unable to give any attrition through the NG tube. This was obviously changed out. When the NG tube was removed there was obvious and notable caking of nutritional elements around the NG tube. OG tube was placed because of intubation. 02.16.19: Patient has been maintained on antibiotics and this is day 8 of linezolid day 3 of IV vancomycin. She is now off Levophed and milrinone has been weaned to 0.35 without any untoward hemodynamic side effects. Reason for ICU Addmission:: Respiratory failure - Medications: Vasopressors:: Milrinone now at 0.350 mcg; Levophed at 3 mcg Sedation:: Precedex off, fentanyl weaning Physical Exam Vital Signs: Temp Pulse Resp BP Pulse Ox 101.3 F H 61 13 95/49 L 99 02/17/19 08:00 02/17/19 10:00 02/17/19 10:00 02/17/19 10:00 02/17/19 10:00 Intake & Output 02/16/19 02/17/19 02/18/19 06:59 06:59 06:59 Intake Total 2505 2234 896 Output Total 2195 2400 40 Balance 310 -166 856 Weight 110.1 kg 113.1 kg Weight/Height Weight 113.1 kg Height 5 ft 4 in General appearance: PRESENT: no acute distress, morbidly obese, well-nourished Exam: Older appearing ill but nontoxic 48-year-old black female no active distress she is responsive and follows commands. Eye exam: PRESENT: conjunctival injection, conjunctiva pink, PERRLA. ABSENT: nystagmus, scleral icterus Mouth exam: PRESENT: dry mucosa, neck supple Neck exam: ABSENT: carotid bruit, JVD, lymphadenopathy, thyromegaly Respiratory exam: PRESENT: crackles - Much improved., unlabored. ABSENT: accessory muscle use, rales, rhonchi, tachypnea, wheezes Cardiovascular exam: PRESENT: bradycardia - Paced at 60 BPM, RRR, +S1, +S2 Pulses: PRESENT: +1 pedal pulses bilateral GI/Abdominal exam: PRESENT: normal bowel sounds, soft. ABSENT: ascites, distended, guarding, mass, organolmegaly, rebound, tenderness Gentrourinary exam: PRESENT: indwelling catheter Extremities exam: PRESENT: +1 edema - Edema much improved. Has furrowing of skin, less anasarca Musculoskeletal exam: ABSENT: deformity, dislocation Neurological exam: PRESENT: awake - on fentanyl. No focal deficits Psychiatric exam: PRESENT: appropriate affect Focused psych exam: ABSENT: psychomotor agitation, restlessness Skin exam: PRESENT: dry, intact, warm. ABSENT: cyanosis, mottled, pallor, rash Tubes/Lines: PRESENT: Endotracheal Tube, Central Line, Arterial Catheter, Other - OGT, ritter. All catheters placed 02.08.19. OGT placed 02.16.19 Laboratory/Radiographs Laboratory Results: 02/17/19 04:59 02/17/19 04:59 02/17/19 02/17/19 02/17/19 04:59 04:59 04:59 WBC 9.5 RBC 3.90 Hgb 11.2 L Hct 35.4 L MCV 91 MCH 28.6 MCHC 31.6 L RDW 19.2 H Plt Count 188 Seg Neutrophils % Not Reportable Carbonic Acid 1.66 H HCO3/H2CO3 Ratio 17:1 ABG pH 7.34 L ABG pCO2 55.3 H ABG pO2 96.3 ABG HCO3 29.4 H ABG O2 Saturation 96.9 ABG Base Excess 2.6 FiO2 50% Sodium 149.2 H Potassium 4.3 Chloride 111 H Carbon Dioxide 32 H Anion Gap 6 BUN 49 H Creatinine 1.07 Est GFR ( Amer) > 60 Glucose 369 H Calcium 8.4 Total Bilirubin 1.2 AST 52 H Alkaline Phosphatase 119 Total Protein 5.7 L Albumin 2.8 L 02/16/19 10:07 Blood Blood Culture (PCR) - Final Staphylococcus Aureus 02/16/19 09:57 Blood Blood Culture (PCR) - Final Staphylococcus Aureus 02/14/19 11:07 Blood Blood Culture (PCR) - Final Staphylococcus Aureus 02/14/19 11:42 Blood Blood Culture (PCR) - Final Staphylococcus Aureus 02/08/19 02/08/19 02/08/19 04:06 04:06 05:30 Creatine Kinase Cancelled 33 CK-MB (CK-2) Cancelled Troponin I Cancelled NT-Pro-B Natriuret Pep Cancelled 02/08/19 02/11/19 02/13/19 05:45 03:18 01:22 Creatine Kinase CK-MB (CK-2) < 0.22 Troponin I 0.043 NT-Pro-B Natriuret Pep 7610 H 1970 H 85397 H Impressions: Chest CT 02/10/19 00:00 IMPRESSION: No pneumothorax. No pleural effusions. Bibasilar consolidation in both lower lobes. Slightly increased interstitial thickening, basilar predominance. Scattered pulmonary cysts and ground-glass opacities are again noted. Tubes and lines in expected positions. KUB X-Ray 02/16/19 15:49 IMPRESSION: The tip and side hole of the enteric tube project within the gastric lumen. Chest X-Ray 02/17/19 06:00 IMPRESSION: Findings most consistent with congestive failure an asymmetric pulmonary edema. Slightly improved. SUPPORT DEVICE(S) IN EXPECTED LOCATIONS. All labs, radiographs, diagnostic studies and EKGs were personally reviewed: Yes In addition, reports of radiographic and diagnostic studies were read: Yes Assessment and Plan - Diagnosis (1) Hypotension Is this a current diagnosis for this admission?: Yes (2) ARDS (adult respiratory distress syndrome) Is this a current diagnosis for this admission?: Yes Plan: 02.17.19: Dramatic improvement. Weaning on modified APRV-biPap. Check ABG 02.16.19:Continue to wean Phigh and lengthen THigh. CXR improving Phigh decreased to 20, Plow increased to 5, FiO2 at 50% (3) MRSA (methicillin resistant staphylococcus aureus) pneumonia Qualifiers: Laterality: bilateral Lung location: unspecified part of lung Qualified Code(s): J15.212 - Pneumonia due to Methicillin resistant Staphylococcus aureus Is this a current diagnosis for this admission?: Yes (4) Sepsis Qualifiers: Sepsis type: methicillin resistant Staphylococcus aureus Sepsis acute organ dysfunction status: with acute organ dysfunction Severe sepsis acute organ dysfunction type: acute respiratory failure Acute respiratory failure type: with hypoxia Severe sepsis shock status: with septic shock Qualified Code(s): A41.02 - Sepsis due to Methicillin resistant Staphylococcus aureus; R65.21 - Severe sepsis with septic shock; J96.01 - Acute respiratory failure with hypoxia Is this a current diagnosis for this admission?: Yes (5) MRSA bacteremia Is this a current diagnosis for this admission?: Yes Plan: Persistent (6) Pneumonitis Is this a current diagnosis for this admission?: Yes Plan: Improving. Concern for likely Amiodarone induced, however admitted to [facility] on last admission. Will start weaning milrinone and wean Phigh (7) Ischemic cardiomyopathy with implantable cardioverter-defibrillator (ICD) Is this a current diagnosis for this admission?: Yes (8) Cardiomyopathy, ischemic Is this a current diagnosis for this admission?: Yes Plan: Bi-ventricular, chronic systolic (9) Atrial fibrillation Qualifiers: Atrial fibrillation type: longstanding persistent Qualified Code(s): I48.11 - Longstanding persistent atrial fibrillation Is this a current diagnosis for this admission?: Yes Plan: NOAC on hold. On heparin drip Plan Summary: 02.17.19: From a respiratory standpoint patient continues to show dramatic improvement. She does have positive MRSA on routine sputum culture taken from tracheal tube. We were also concerned that she had a mixed interstitial-alveolar pattern from amiodarone and or vaping. We are encouraged that her respiratory status has dramatically improved and she has been transitioned from APRV to modified BiPAP on APRV mode. What I am most concerned about is the onset of hypotension with fever. Notably blood cultures drawn on the are positive for MRSA once again. The disconcerting aspect is that no cultures drawn on admission were positive. She did present with pneumonia and the possibility of bacterial translocation during the acute process may be now evident in the bloodstream. Although the possibility of a reduction in milrinone could have led to a cardiogenic source are bedside critical care echo done this morning shows an actual improvement in LV function. Certainly there is no dramatic decrease. Another possibility would be relative adrenal insufficiency however we have maintained her on steroids. She was reduced from 125 mg q. 8 to 60 mg every 8. Although this would be a convenient diagnosis concern for recurrent hypotension associated with sepsis is a paramount concern. I have reached out to the infectious disease team at [facility] and to the CT surgery team as well. Her discussions with infectious disease and CT surgery and cardiology the plan is to treat her for at least 6 weeks before considering removal of the pacemaker leads. Given her bacteremia and the possibility of MRSA attachment to the catheter. During this dictation patient had a dark melanotic appearing bowel movement. This may explain her hypotension. Her CBC this morning was unchanged and repeat shows minimal decrease. Have started Protonix. Cannot give Protamine secondary to signficant side-effects and black box warning for pulmonary hypertension and advanced LV failure, both of which she has. Her PTT is improved and with the addition of PPI, the bleeding may stop.There is no blood from OGT but will aspirate to determine. If bleeding continues or she becomes unstable, will give Traxenemic Acid. Will monitor labs. Updated Aparna, daughter/MPOA as well as patient's sisters/family prior to bleeding. Have left a message with daughter Aparna and updated sister. 02.16.19: The patient's overall condition continues to improve. I reduce the P high to 20 and adjusted the P low to 5 and affect to wean on a bilevel BiPAP mode. I have reduced her steroids as well will have to watch for recrudescence. We have also reduced her milrinone and all of these combined effects will need to be monitored to see if there is any untoward worsening. Her pneumonitis appears to be a combination of amiodarone toxicity and possible vaping. In addition she has MRSA in her sputum suggestive of MRSA pneumonia. We are in a conundrum because her pacemaker/AICD wires have significant fibrous tissue. All blood cultures taken have been positive x2. The difficulty is det ermining whether her initial presentation with hypoxia and pneumonia has led to the MRSA bacteremia or the bacteremia from infection on the fibers pacemaker leads has led to pneumonia. I placed a call to Dr. Rojo to discuss the case. I also spoke with our cardiology team who are in touch with the cardiology team at [facility]. The plan for now to continue to monitor for bacteremia and if there is no clearance and certainly if there is worsening she will definitely need referral. In that there is no worsening hypotension or need for vasopressor therapy is unlikely that the bacteremia is related to a fibrous encasement of bacteria. Dr. Martin did speak with the CT surgery team at [facility]. The plan is to continue and complete antibiotics and repeat blood cultures when this is complete. If there is continued bacteremia or if the blood cultures continue to be positive then they would consider explant. At this point given her pneumonia and her overall improvement it is unlikely that the pacemaker wire leads are the culprit for the bacteremia. We will need to be aware of the possible implantation of this bacteremia during her active infection. ] Will continue to provide supportive care. Vancomycin levels are low and have increased dose. She has hypernatremia and have started free water flushes. She also has an NG tube which we have converted to an OG tube to prevent sinusitis. 02.15.19: Patient has persistent bacteremia. Given the state it is still conceivable that there is fibrinous exudate on the pacemaker wire. Will discuss with infectious disease and CT surgery to determine whether she will need transfer for removal of the pacemaker leads. I am concerned because her initial blood cultures on admission were negative for bacteremia. Does have MRSA pneumonia and the blood cultures may be reflective of this. Continue to repeat blood cultures every 48 hours. Pulmonary status has improved and her ARDS is slowly improving. Have decreased P high and have increased her time high. To new to attempt to wean. X-rays notably improving as well. Updated family over the phone and they are aware of the situation. His maker impedance was interrogated and found to be within normal limits. May need transfer 19: The patient has had subtle improvement and now has no need for Levophed therapy. Fact her blood pressure slightly higher and have increased the milrinone to help supplant hypertension and affect pulmonary hypertension and assist with RV function. Patient has what appears to be an enlarged fibrinous changes of to the pacemaker/AICD lead seen on JOSS. Plan is that if she has persistent bacteremia this will need to be removed. I am concerned that she has amiodarone induced toxicity to her lung as well as possible vaping injury. Normally, in consideration, steroid therapy would need to be increased at pulse dose for 2 to 3 days. Have also screened for autoimmune and vasculitic component all of which are negative. She appears to have some improvement with the use of milrinone and given the need for a PRV will continue this. We will follow microbiologic studies. If further blood cultures are positive we will transition to possible transfer for removal of leads. She may need [facility]. I consulted infectious diseases and discussed the case with them. They are in agreement with our plan but asked that we add vancomycin to cover bacteremia. They would like to continue linezolid which has excellent pulmonary penetration. He may need a CT scan to rule out necrotizing pneumonia however is unable to be transported at this time. We will attempt to contact family to update them. 19: Patient's overall status has improved but she still has significant ARDS. PF ratio is slightly improved FiO2 is being reduced as well as her P high. She has a history of atrial fibrillation with cardiomyopathy and had been on NOAC therapy. We will start her on IV heparin until safety can be assured for NOAC therapy. Patient is on low-dose Levophed and have reduce milrinone 0.2 mcgs. Our hope is to reduce the Levophed further. As her ventilator requirements improved the plan is to wean the milrinone. Patients with advanced ARDS have significant pulmonary hypertension and right ventricular overload. Given her already altered physiology this was necessary to help with oxygenation. We will continue steroid therapy and supportive care. Start nutrition. Patient has bacteremia and will need JOSS. Will start heparin and discontinued 2 hours prior to JOSS. No heparin bolus Attempted to contact family but have not been able to do so. 12.16.19: Patient has significant hypoxia with a PF ratio consistent with [place] criteria severe ARDS. Have changed some vent settings to support better ventilation and oxygenation. O2 is now being weaned. On critical care ultrasound she appears to have biventricular systolic dysfunction which we have known about in the past. Given the need for APRV and ARDS induced right ventricular dysfunction we have started her on milrinone to help support forward flow. We will monitor her response to this. Had been diuresed and her IVC is still dilated however she is on APRV which will augment preload. Of interest that she has not become hypotensive. To new to monitor for decompensation including pneumothorax. Concerned that this represents amiodarone toxicity of the lung have continued high-dose steroids which is the only known treatment. At this point she is too hypoxic to allow for bronchoscopy to obtain CD4 CD8 counts. Have attempted to contact family and him waiting call to update them. Critical Time Critical Time (minutes): 100 Level of Care: ICU -: 1. The care of a critical patient is a dynamic process. This note is a sales representative livestock synopsis but static in nature. The timeframe for treatments given in order is not necessarily the actual time these treatments may have been done. 2. This patient requires critical care secondary to ongoing requirements for therapy not offered or safe outside the critical care environment. Transfer to a lower level of care will result in altered life or limb morbidity and mortality. 3. Multidisciplinary rounds completed. 4. ABCDE bundle addressed.
[2019-02-17] MEDS ORDERED: INSULIN GLARGINE,HUM.REC.ANLOG 1,000 UNIT/10 ML VIAL SUBCUT ONE (17:30)
[2019-02-17] MEDS ORDERED: INSULIN GLARGINE,HUM.REC.ANLOG 1,000 UNIT/10 ML VIAL (PYX) SUBCUT ONE (18:14)
--- NOTE | 2019-02-17 19:22 | Progress Note ---
Provider Note Provider Note: CARDIOLOGY PROGRESS NOTE by Dr. Griselda Martin on 02/17/2019. OBJECTIVE: The patient is making slow improvement. She is awake today. And responds appropriately to verbal request. At present she is afebrile. Chest x- ray does show improvement. Her oxygenation is also better. She has been titrated down on the ventilator and is requiring less oxygen. There is no firing of the AICD. There is no recurrence of atrial fibrillation. There is no ventricular arrhythmia seen on the monitor. Sickle EXAMINATION: The patient is morbidly obese. Selected Entries 02/17/19 02/17/19 14:00 16:00 Temperature 98.6 F Heart Rate ( 63 Monitors) Respiratory 18 Rate Blood Pressure 118/61 [Left Upper Arm ] Blood Pressure 80 Mean [Left Upper Arm] Blood Pressure Supine Position [Left Upper Arm] O2 Sat by Pulse 97 Oximetry Oxygen Delivery Mechanical Method ( Ventilator includes room air) Fraction of 50 Inspired Oxygen (FIO2) HEAD: Is atraumatic normocephalic. EYES: Pupils are equal round regular reactive to light. HEENT is negative. SKIN: There is no skin rashes or skin lesions. There is no particular ecchymosis. NECK: Is supple. There is mild JVD present. Carotids are equal there is no bruits. There is no lymphadeno clara. There is no goiter. There is no accessory muscle respiration use. Trachea central. LUNGS: Shows bibasilar rales of CHF. There are no rhonchi or wheezing. There is also dry crackles in the right lower lobe. There is diminished air entry. On percussion there is hyperresonance. On palpation there is no chest wall tenderness. HEART: S1-S2 is heard. There is no S3 gallop. There is no S4 gallop. There is systolic murmur mitral regurgitation tricuspid regurgitation present. There is no aortic stenosis murmur. There is no aortic insufficiency murmur. There is no rub. ABDOMEN: Is obese. Nontender. There is no hepatosplenomegaly. Bowel sounds are well heard. There is no rebound guarding or rigidity. EXTREMITIES: Femorals are deep. Femorals are diminished. There is no femoral bruits. There is decreased leg pulses. There is mild pedal edema. There is no DVT or cellulitis. There is no calf tenderness. GARMENT STEAMER: The patient is awake. She responds appropriately to verbal requests. In spite of restraints she is showing that she can move all 4 extremities. PSYCHIATRIC: The patient does not appear to be agitated or anxious. She is not fighting the ventilator. Labs- All tests 24 hr 02/17/19 02/17/19 02/17/19 04:59 04:59 04:59 WBC 9.5 RBC 3.90 Hgb 11.2 L Hct 35.4 L MCV 91 MCH 28.6 MCHC 31.6 L RDW 19.2 H Plt Count 188 Lymph % (Auto) Not Reportable Cooke % (Auto) Not Reportable Eos % (Auto) Not Reportable Baso % (Auto) Not Reportable Absolute Neuts (auto) Not Reportable Absolute Lymphs (auto) Not Reportable Absolute Monos (auto) Not Reportable Absolute Eos (auto) Not Reportable Absolute Basos (auto) Not Reportable Total Counted 100 Seg Neutrophils % Not Reportable Seg Neuts % (Manual) 92 H Lymphocytes % (Manual) 5 L Monocytes % (Manual) 3 Eosinophils % (Manual) 0 Basophils % (Manual) 0 Abs Neuts (Manual) 8.7 H Abs Lymphs (Manual) 0.5 Abs Monocytes (Manual) 0.3 Absolute Eos (Manual) 0.0 Abs Basophils (Manual) 0.0 Toxic Granulation 1+ Platelet Comment ADEQUATE Poikilocytosis 1+ Anisocytosis 1+ Ovalocytes 2+ PT INR APTT Fibrinogen Carbonic Acid 1.66 H HCO3/H2CO3 Ratio 17:1 ABG pH 7.34 L ABG pCO2 55.3 H ABG pO2 96.3 ABG HCO3 29.4 H ABG Total CO2 31.1 H ABG O2 Saturation 96.9 ABG Base Excess 2.6 FiO2 50% Sodium 149.2 H Potassium 4.3 Chloride 111 H Carbon Dioxide 32 H Anion Gap 6 BUN 49 H Creatinine 1.07 Est GFR ( Amer) > 60 Est GFR (MDRD) Non-Af 55 L Glucose 369 H Lactic Acid Calcium 8.4 Total Bilirubin 1.2 Direct Bilirubin 0.7 H Neonat Total Bilirubin Not Reportable Neonat Direct Bilirubin Not Reportable Neonat Indirect Bili Not Reportable AST 52 H ALT 229 Alkaline Phosphatase 119 Total Protein 5.7 L Albumin 2.8 L Stool Occult Blood Blood Type Antibody Screen 12/21/19 12/21/19 12/21/19 04:59 12:10 14:55 WBC RBC Hgb Hct MCV MCH MCHC RDW Plt Count Lymph % (Auto) Cooke % (Auto) Eos % (Auto) Baso % (Auto) Absolute Neuts (auto) Absolute Lymphs (auto) Absolute Monos (auto) Absolute Eos (auto) Absolute Basos (auto) Total Counted Seg Neutrophils % Seg Neuts % (Manual) Lymphocytes % (Manual) Monocytes % (Manual) Eosinophils % (Manual) Basophils % (Manual) Abs Neuts (Manual) Abs Lymphs (Manual) Abs Monocytes (Manual) Absolute Eos (Manual) Abs Basophils (Manual) Toxic Granulation Platelet Comment Poikilocytosis Anisocytosis Ovalocytes PT INR APTT 121.8 H 104.2 H Fibrinogen Carbonic Acid HCO3/H2CO3 Ratio ABG pH ABG pCO2 ABG pO2 ABG HCO3 ABG Total CO2 ABG O2 Saturation ABG Base Excess FiO2 Sodium Potassium Chloride Carbon Dioxide Anion Gap BUN Creatinine Est GFR ( Amer) Est GFR (MDRD) Non-Af Glucose Lactic Acid Calcium Total Bilirubin Direct Bilirubin Neonat Total Bilirubin Neonat Direct Bilirubin Neonat Indirect Bili AST ALT Alkaline Phosphatase Total Protein Albumin Stool Occult Blood Blood Type B POSITIVE Antibody Screen NEGATIVE 02/17/19 02/17/19 02/17/19 14:55 14:55 14:55 WBC RBC Hgb Hct MCV MCH MCHC RDW Plt Count Lymph % (Auto) Cooke % (Auto) Eos % (Auto) Baso % (Auto) Absolute Neuts (auto) Absolute Lymphs (auto) Absolute Monos (auto) Absolute Eos (auto) Absolute Basos (auto) Total Counted Seg Neutrophils % Seg Neuts % (Manual) Lymphocytes % (Manual) Monocytes % (Manual) Eosinophils % (Manual) Basophils % (Manual) Abs Neuts (Manual) Abs Lymphs (Manual) Abs Monocytes (Manual) Absolute Eos (Manual) Abs Basophils (Manual) Toxic Granulation Platelet Comment Poikilocytosis Anisocytosis Ovalocytes PT 13.9 INR 1.07 APTT 65.9 H Fibrinogen 296 Carbonic Acid HCO3/H2CO3 Ratio ABG pH ABG pCO2 ABG pO2 ABG HCO3 ABG Total CO2 ABG O2 Saturation ABG Base Excess FiO2 Sodium Potassium Chloride Carbon Dioxide Anion Gap BUN Creatinine Est GFR ( Amer) Est GFR (MDRD) Non-Af Glucose Lactic Acid 2.6 H Calcium Total Bilirubin Direct Bilirubin Neonat Total Bilirubin Neonat Direct Bilirubin Neonat Indirect Bili AST ALT Alkaline Phosphatase Total Protein Albumin Stool Occult Blood POSITIVE Blood Type Antibody Screen 02/17/19 02/17/19 02/17/19 14:55 20:40 20:40 WBC 17.0 H 16.3 H RBC 3.70 L 3.69 L Hgb 10.5 L 10.4 L Hct 34.1 L 33.8 L MCV 92 92 MCH 28.5 28.2 MCHC 30.9 L 30.7 L RDW 18.9 H 19.0 H Plt Count 233 224 Lymph % (Auto) Not Reportable Cooke % (Auto) Not Reportable Eos % (Auto) Not Reportable Baso % (Auto) Not Reportable Absolute Neuts (auto) Not Reportable Absolute Lymphs (auto) Not Reportable Absolute Monos (auto) Not Reportable Absolute Eos (auto) Not Reportable Absolute Basos (auto) Not Reportable Total Counted 100 Seg Neutrophils % Not Reportable Seg Neuts % (Manual) 97 H Lymphocytes % (Manual) 3 L Monocytes % (Manual) 0 L Eosinophils % (Manual) 0 Basophils % (Manual) 0 Abs Neuts (Manual) 16.5 H Abs Lymphs (Manual) 0.5 Abs Monocytes (Manual) 0.0 L Absolute Eos (Manual) 0.0 Abs Basophils (Manual) 0.0 Toxic Granulation Platelet Comment ADEQUATE Poikilocytosis Anisocytosis 1+ Ovalocytes PT INR APTT Fibrinogen Carbonic Acid 1.63 H HCO3/H2CO3 Ratio 17:1 ABG pH 7.33 L ABG pCO2 54.1 H ABG pO2 86.0 ABG HCO3 28.1 H ABG Total CO2 29.8 H ABG O2 Saturation 95.8 ABG Base Excess 1.5 FiO2 40% Sodium Potassium Chloride Carbon Dioxide Anion Gap BUN Creatinine Est GFR ( Amer) Est GFR (MDRD) Non-Af Glucose Lactic Acid Calcium Total Bilirubin Direct Bilirubin Neonat Total Bilirubin Neonat Direct Bilirubin Neonat Indirect Bili AST ALT Alkaline Phosphatase Total Protein Albumin Stool Occult Blood Blood Type Antibody Screen Chest X-Ray 02/08/19 00:00 IMPRESSION: Slight advancement of endotracheal tube. Otherwise no change. Chest X-Ray 02/08/19 00:00 IMPRESSION: NO PNEUMOTHORAX FOLLOWING CENTRAL LINE PLACEMENT. OTHERWISE NO CHANGE. Chest X-Ray 02/08/19 03:15 IMPRESSION: Cardiomegaly. Endotracheal and enteric tubes are in place. Postsurgical changes of the mediastinum. Airspace opacities right lung base. copyright 2010 [employer]- All Rights Reserved Chest CT 02/10/19 00:00 IMPRESSION: No pneumothorax. No pleural effusions. Bibasilar consolidation in both lower lobes. Slightly increased interstitial thickening, basilar predominance. Scattered pulmonary cysts and ground-glass opacities are again noted. Tubes and lines in expected positions. Chest X-Ray 02/12/19 00:00 IMPRESSION: 1. Bilateral perihilar airspace consolidation which may be due to edema, atelectasis or pneumonia. 2. Marked cardiomegaly. 3. Remote postsurgical changes of the mediastinum. 4. Life support lines and tubes as described above. Chest X-Ray 02/13/19 06:00 IMPRESSION: STABLE APPEARANCE OF THE CHEST. SUPPORT DEVICES UNCHANGED. Chest X-Ray 02/14/19 06:00 IMPRESSION: Mildly worsened bibasilar predominant opacities, likely edema although infection not excluded. Stable support lines and tubes as above. Chest X-Ray 02/15/19 03:06 IMPRESSION: Diffuse persistent but improving interstitial and alveolar opacities throughout both lungs. Stable cardiomegaly. Chest X-Ray 02/16/19 06:00 IMPRESSION: Unchanged radiographic appearance of the chest. KUB X-Ray 02/16/19 15:49 IMPRESSION: The tip and side hole of the enteric tube project within the gastric lumen. Chest X-Ray 02/17/19 06:00 IMPRESSION: Findings most consistent with congestive failure an asymmetric pulmonary edema. Slightly improved. SUPPORT DEVICE(S) IN EXPECTED LOCATIONS. IMPRESSION/RECOMMENDATION: 1. Acute on chronic respiratory failure. This is multifactorial secondary to the causes listed below. Continue ventilator support and supplemental oxygen. 2. Acute on chronic systolic heart failure. Patient with LV ejection fraction of 25%. Agree with continuing aggressive diuresis with Lasix. And continue the patient's Entresto and beta-rip. Continue the patient on milrinone. She is at 0.2 mcg/kg/min. If his systolic blood pressure remains high consider starting IV nitroglycerin. 3. Acute exacerbation COPD: Continue bronchodilators and ventilatory support. 4. MRSA pneumonia: Continue antibiotics. 5. 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 Hence would recommend discontinue the patient's amiodarone which has been done. Continue steroids. 6. Acute on chronic kidney disease: Watch renal function as we implement aggressive diuresis. 7. Cardiomyopathy with severely reduced LV ejection fraction. Continue milrinone. 8. Paroxysmal atrial fibrillation: Continue beta-rip and Eliquis. 9. History of ventricular tachycardia, The patient has an AICD placed. If there is recurrence of ventricular tachycardia or major ventricular ectopic activity then would start the patient on small dose of sotalol. Would avoid amiodarone. 10. Hypertension: Blood pressure well controlled, on current medications. 11. Coronary artery disease: History of CA and history of coronary bypass graft surgery. No evidence of acute coronary syndrome/non-ST ST elevation CA this admission. 12. Obstructive sleep apnea. Note patient is noncompliant with CPAP. Most likely has significant pulmonary hypertension. 13. AICD placement: Note the patient's basal rate is around 60 bpm. If the patient's heart failure continues then would recommend increasing the basal heart rate to 80 bpm to help combat the heart failure along with diuretics. 14. MRSA bacteremia: Continue antibiotics. Repeat blood cultures are positive again for MRSA. With the lead insertion site showing fibrinous changes, and with the repeat culture showing MRSA there is high suspicion for infection of the AICD leads. Hence wrestling coach is strongly recommending that the patient be transferred to [facility] for explantation of the AICD system. Interrogation of the AICD shows that it is functioning normally. The lead impedance of the atrial, right and ventricular left ventricular leads are acceptable. Medications reviewed. Medical regimen and management plan discussed with wrestling coach Dr. Barron. Medical decision making is moderate to high complexity. 40 minutes spent with patient more than 50% of time spent in direct patient care. Will follow.
[2019-02-17] MEDS: ALBUMIN HUMAN 12.5 GM/50 ML RTUINJ IV SCH ×4 (20:09→22:56)
[2019-02-17 21:01] LABS: HEMATOCRIT 33.8 % (36.0-47.0); HEMOGLOBIN 10.4 g/dL (12.0-15.5); MEAN CORPUSCULAR HEMOGLOBIN 28.2 pg (27.0-33.4); MEAN CORPUSCULAR HGB CONC 30.7 g/dL (32.0-36.0); MEAN CORPUSCULAR VOLUME 92 fl (80-97); PLATELET COUNT 224 10^3/uL (150-450); RED BLOOD COUNT 3.69 10^6/uL (3.72-5.28); WHITE BLOOD COUNT 16.3 10^3/uL (4.0-10.5)
[2019-02-17 21:04] LABS: ARTERIAL BLOOD BASE EXCESS 1.5 mmol/L; ARTERIAL BLOOD H2CO3 1.63 mmol/L (1.05-1.35); ARTERIAL BLOOD HCO3 28.1 mmol/L (20-24); ARTERIAL BLOOD O2 SATURATION 95.8 % (94-98); ARTERIAL BLOOD PCO2 54.1 mmHg (35-45); ARTERIAL BLOOD PH 7.33 (7.35-7.45); ARTERIAL BLOOD TOTAL CO2 29.8 mmol/L (21-25)
[2019-02-17 21:06] LABS: ARTERIAL BLOOD FIO2 40%
[2019-02-17 21:19] LABS: ANION GAP 7 (5-19); BLOOD UREA NITROGEN 68 mg/dL (7-20); CALCIUM 8.6 mg/dL (8.4-10.2); CARBON DIOXIDE 31 mmol/L (22-30); CHLORIDE 110 mmol/L (98-107); POTASSIUM 3.8 mmol/L (3.6-5.0)
--- NOTE | 2019-02-17 21:25 | EKG REPORT ---
SEVERITY:- ABNORMAL ECG - ATRIAL-SENSED VENTRICULAR-PACED RHYTHM : Confirmed by: Verna Frederick 17-Feb-2019 21:24:44
[2019-02-17 21:38] LABS: GLUCOSE 416 mg/dL (75-110)
[2019-02-17] MEDS ORDERED: INSULIN REG, HUMAN 100 UNIT/ML 3 ML VIAL (PYX) IV ONE (22:01)
[2019-02-17] MEDS ORDERED: NORMAL SALINE 100 ML with INSULIN REGULAR, HUMAN 100 UNIT IV PRN ×2 (22:01)
[2019-02-17] MEDS ORDERED: INSULIN REG, HUMAN 100 UNIT/ML 3 ML VIAL (PYX) ONE (22:27)
[2019-02-18] MEDS ORDERED: INSULIN REG, HUMAN 100 UNIT/ML 3 ML VIAL (PYX) ONE (00:42)
[2019-02-18] MEDS ORDERED: NORMAL SALINE INJ/PF 0.9% 10 ML SDV IV PRN (01:03)
--- NOTE | 2019-02-18 01:20 | RADIOLOGY REPORT (SQ) ---
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 COMPARISON: 02/17/2019 FINDINGS: There is a new left IJ line with the tip overlying the proximal SVC. Remaining support devices are stable. Unchanged cardiomegaly with pulmonary edema. No pneumothorax. IMPRESSION: New left IJ line with the tip overlying the proximal SVC. Consider advancement 3-4 cm.
--- NOTE | 2019-02-18 01:44 | Progress Note ---
Provider Note Provider Note: 02/18/2019 at 23:00 AM Procedure Note: Arterial Line Insertion Indication: ongoing bacteremia despite appropriate systemic antibiotic therapy After consent was obtained and patient placed in proper procedural position, sterile PPE was donned followed by prepping and draping in usual sterile fashion. Ultrasound was utilized to identify the right axillary artery which was free of thrombus with good pulsatility and 5 mL of 1% lidocaine was utilized to anesthetize the skin and subcutaneous tissue down to the artery and nearby nerve. Next a 20-gauge introducer needle was advanced and visualized entering the right axillary artery for which a return of pulsatile blood was observed. A guide wire was then inserted through the needle into the right axillary artery and the needle was removed. Utilizing ultrasound the wire was confirmed to be in the right axillary artery in 2 views. A small skin stab incision was made over the wire followed by an 18-gauge 16 cm catheter that was advanced over the wire into the right axillary artery, subsequently removing the wire, again noting pulsatile blood from the catheter. A Biopatch was applied, the catheter was sutured into place, the transducer pressure tubing was hooked up to the arterial catheter, and a sterile occlusive transparent dressing was applied. Patient tolerated procedure well. Good arterial waveform observed on the monitor. EBL 3 mL
--- NOTE | 2019-02-18 01:55 | Operative Report ---
Bedside Procedure - History of Present Illness Indication for Procedure: ongoing bacteremia despite appropriate systemic antibiotic therapy Date: 02/08/19 Provider: NUNO BURGOS - Central Line Left Internal jugular Time completed: 00:30 Consent obtained: Yes Central line pre-insertion: Sterile PPE donned, Chloraprep applied, Sterile drapes applied Central line size (Fr.): 7 Central line lumen type: Triple Anesthetic type: 1% Lidocaine mL's of anesthesia: 5 Ultrasound guided: Yes CM at insertion site: 20 Line secured with sutures: Yes Central line post-insertion: Blood return from lumens, Biopatch applied, Sutured, Sterile dressing applied, Position confirmed w/ CXR Number of attempts: 1 Complications: No Notes: 02/18/19 00:30 AM Indication: ongoing bacteremia despite appropriate systemic antibiotic therapy Consents obtained and patient placed in proper procedural position. Sterile PPE donned followed by prepping and draping in usual sterile fashion. Ultrasound utilized to visualize the left internal jugular vein which was free of thrombus from the angle of the mandible down to the clavicle. A 20-gauge introducer needle was inserted with an attached syringe under negative pressure via the skin and visualized entering the left internal jugular vein, for which a quiñonez of blood was returned into the syringe. The syringe was detached from the needle noting a passive slow dripping of blood from the needle. A guide wire was then advanced through the needle into the left internal jugular vein and the introducer needle was removed. The wire was confirmed to be in the left internal jugular vein in 2 views utilizing ultrasound. A small skin stab incision was made over the wire and a dilator was then passed over the wire to dilate the skin and subcutaneous tissue. The dilator was removed and a 7 Kinyarwanda 20 cm catheter was advanced over the wire into the left internal jugular vein, followed by removing the wire, again noting passive slow dripping of blood from the distal lumen of the catheter. All lumens aspirated and flushed easily. A Biopatch was applied, the catheter was secured with 2, 3-0 silk sutures at 20 cm at the skin, a sterile transparent occlusive dressing was applied. Patient tolerated the procedure well. A chest x-ray was obtained demonstrating the tip of the left IJ catheter is at the confluence of the innominate vein and the SVC which is acceptable positioning, no pneumothorax. EBL 3 mL
[2019-02-18] MEDS: VANCOMYCIN HCL 1,250 MG in DEXTROSE 5%-WATER 250 ML IV SCH (06:00)
[2019-02-18 06:14] LABS: ARTERIAL BLOOD BASE EXCESS 4.7 mmol/L; ARTERIAL BLOOD H2CO3 1.66 mmol/L (1.05-1.35); ARTERIAL BLOOD O2 SATURATION 97.6 % (94-98); ARTERIAL BLOOD PCO2 55.1 mmHg (35-45); ARTERIAL BLOOD PH 7.37 (7.35-7.45); ARTERIAL BLOOD TOTAL CO2 32.7 mmol/L (21-25)
[2019-02-18 06:15] LABS: ARTERIAL BLOOD FIO2 40%
[2019-02-18 06:17] LABS: HEMOGLOBIN 9.5 g/dL (12.0-15.5); MEAN CORPUSCULAR HEMOGLOBIN 28.7 pg (27.0-33.4); MEAN CORPUSCULAR HGB CONC 31.8 g/dL (32.0-36.0); MEAN CORPUSCULAR VOLUME 90 fl (80-97); PLATELET COUNT 179 10^3/uL (150-450); RED BLOOD COUNT 3.32 10^6/uL (3.72-5.28); RED CELL DISTRIBUTION WIDTH 18.4 % (11.5-14.0); WHITE BLOOD COUNT 10.6 10^3/uL (4.0-10.5)
[2019-02-18 06:31] LABS: ANION GAP 10 (5-19); BLOOD UREA NITROGEN 64 mg/dL (7-20); CALCIUM 9.1 mg/dL (8.4-10.2); CARBON DIOXIDE 32 mmol/L (22-30); CHLORIDE 111 mmol/L (98-107); GLUCOSE 72 mg/dL (75-110); PHOSPHORUS 4.5 mg/dL (2.5-4.5); POTASSIUM 3.6 mmol/L (3.6-5.0)
[2019-02-18 06:57] LABS: ABSOLUTE LYMPHOCYTES# (MANUAL) 0.6 10^3/uL (0.5-4.7); ABSOLUTE MONOCYTES # (MANUAL) 0.3 10^3/uL (0.1-1.4); BAND NEUTROPHILS % (MANUAL) 3 % (3-5); BASOPHILS % (MANUAL) 0 % (0-2); EOSINOPHILS % (MANUAL) 0 % (0-6); LYMPHOCYTES % (MANUAL) 6 % (13-45); MONOCYTES % (MANUAL) 3 % (3-13); SEGMENTED NEUTROPHILS % (MAN) 88 % (42-78); TOTAL CELLS COUNTED 100
[2019-02-18 06:58] LABS: ANISOCYTOSIS 1+; PLATELET COMMENT ADEQUATE; POLYCHROMASIA 1+
[2019-02-18] MEDS: NORMAL SALINE 100 ML with PANTOPRAZOLE SODIUM 80 MG IV PRN ×2 (08:20)
[2019-02-18] MEDS: FENTANYL CITRATE/PF 600 MCG/60 ML BAG IV PRN (08:53)
[2019-02-18] MEDS: LINEZOLID 600 MG/300 ML RTUPB IV SCH ×2 (10:31→21:29)
[2019-02-18] MEDS: METHYLPREDNISOLONE INJ 125 MG/2 ML SDV IV SCH (10:31)
[2019-02-18] MEDS ORDERED: DIPHENHYDRAMINE HCL 50 MG/ML VIAL ONE (10:49)
[2019-02-18] MEDS ORDERED: ONDANSETRON HCL INJ/PF 4 MG/2 ML SDV ONE (10:49)
[2019-02-18] MEDS ORDERED: MIDAZOLAM 2 MG/2 ML INJ ONE ×2 (10:49→10:59)
[2019-02-18] MEDS ORDERED: FENTANYL CITRATE INJ/PF 100 MCG/2 ML AMPUL ONE (10:49)
[2019-02-18] MEDS ORDERED: FLUMAZENIL INJ 0.5 MG/5 ML VIAL ONE (10:49)
[2019-02-18] MEDS ORDERED: NALOXONE HCL INJ/PF 0.4 MG/1 ML SDV ONE (10:49)
[2019-02-18] MEDS ORDERED: GLUCAGON,HUMAN RECOMB 1 MG INJ ONE (10:50)
[2019-02-18] MEDS ORDERED: EPINEPHRINE INJ 1 MG/10 ML DISP.SYRIN ONE (10:50)
[2019-02-18] MEDS ORDERED: ETOMIDATE INJ/PF 20 MG/10 ML SDV IV ONE (11:13)
[2019-02-18] MEDS ORDERED: PROPOFOL INJ 200 MG/20 ML VIAL IV ONE (11:21)
--- NOTE | 2019-02-18 11:42 | PDOC CONSULTATION ---
Consultation Consult Date: 02/18/19 Provider Consulted: SURGICAL SURGICALIST MD Consult reason:: melena, r/o upper GI bleed History of Present Illness Admission Date/PCP: 02/08/19 04:24 YI SANCHEZ DO History of Present Illness: FRANKI DEL ROSARIO is a 48 year old female seen in consultation at the request of Dr. Barron. This is a patient with MRSA pneumonia, and vegetations around her pacemaker. She has a recent history of melanotic stool, and a drop in hemoglobin. Consult was made to the surgical list to rule out an upper GI bleed. Patient's OG tube has failed to provide any insight. 1 L tap water was irrigated through the OG tube. No bilious or bloody output was returned. In light of this, EGD was requested to ensure that her hemoglobin drop was not related to an upper GI bleed. Currently the patient is intubated and sedated. A review of systems is unobtainable. All medical information and history are obtained from the nursing staff and medical record. Past Medical History Cardiac Medical History: Reports: Atrial Fibrillation, Congestive Heart Failure, Coronary Artery Disease, Myocardial Infarction, Hyperlipidema, Hypertension Denies: DVT, Pulmonary Embolism Pulmonary Medical History: Reports: Bronchitis, Chronic Obstructive Pulmonary Disease (COPD), Intubation, Pneumonia, Respiratory Failure, Sleep Apnea Denies: Asthma Neurological Medical History: Denies: Seizures Endocrine Medical History: Denies: Diabetes Mellitus Type 1, Diabetes Mellitus Type 2, Hyperthyroidism, Hypothyroidism GI Medical History: Reports: Gastroesophageal Reflux Disease Denies: Cirrhosis, Crohn's Disease, Hepatitis, Hiatal Hernia, Ulcerative Colitis Musculoskeltal Medical History: Denies: Arthritis, Gout Skin Medical History: Denies: Eczema, Psoriasis Psychiatric Medical History: Reports: Depression, Substance Abuse Hematology: Reports: Anemia - Chronic, Bleeding Tendencies - "On blood thinners" Infectious Medical History: Reports: Methicillin-Resistant Staph Aureus - And sputum on last admission. Past Surgical History Past Surgical History: Reports: Cardiac Catheterization - multiple, Section, Coronary Artery Bypass Graft - 2006, Coronary Stent - Multiple, Hysterectomy, Pacemaker - AICD, Tubal Ligation Denies: Mastectomy Social History Smoking Status: Unknown if Ever Smoked Electronic Cigarette use?: Yes Frequency of Alcohol Use: Occasional Hx Recreational Drug Use: Yes Drugs: Marijuana Hx Prescription Drug Abuse: No - Advance Directive Resuscitation Status: Full Code Family History Family History: CAD, CVA, DM, Hypertension, Malignancy, Other - Kidney disease Parental Family History Reviewed: Yes Children Family History Reviewed: Yes Sibling(s) Family History Reviewed.: Yes Medication/Allergy Home Medications: Alprazolam [Xanax 0.5 mg Tablet] 0.5 mg PO Q6HP PRN 02/08/19 Amiodarone HCl [Cordarone 200 mg Tablet] 400 mg PO DAILY 02/08/19 Apixaban [Eliquis 5 mg Tablet] 5 mg PO BID 02/08/19 Aspirin [Ecotrin 81 mg EC Tablet] 81 mg PO DAILY 02/08/19 Atorvastatin Calcium [Lipitor 80 mg Tablet] 80 mg PO QHS 02/08/19 Buspirone HCl [Buspar 10 mg Tablet] 10 mg PO BID 02/08/19 Famotidine [Pepcid 40 mg Tablet] 40 mg PO BID 02/08/19 Furosemide [Lasix 80 mg Tablet] 80 mg PO BID 02/08/19 Isosorbide Mononitrate [Imdur 60 mg Tablet.er] 60 mg PO DAILY 02/08/19 Melatonin [Melatonin 1 mg Tablet] 1 mg PO QHS 02/08/19 Metoprolol Succinate [Toprol Xl 50 mg Tab.sr] 50 mg PO DAILY 02/08/19 Nitroglycerin [Nitrostat 0.4 mg (1/150 Gr) Tabs 25/Bottle] 0.4 mg SL Q5MP PRN 02/08/19 Paroxetine HCl [Paxil 20 mg Tablet] 20 mg PO DAILY 02/08/19 Sacubitril/Valsartan [Entresto 97 mg/103 mg Tablet] 1 tab PO BID 02/08/19 Allergies/Adverse Reactions: egg [Egg] Allergy (Verified 10/04/18 00:18) hydrocodone [From Vicodin] Allergy (Verified 10/04/18 00:18) propoxyphene [From Darvocet-N] Allergy (Verified 10/04/18 00:18) amiodarone Adverse Reaction (Verified 10/04/18 00:18) Respiratory distress diphenhydramine HCl [From Benadryl] Adverse Reaction (Verified 10/04/18 00:18) chest pain, bigemeny rhythm Review of Systems ROS unobtainable: Due to endotracheal tube, Due to mental status Physical Exam Vital Signs: Temp Pulse Resp BP Pulse Ox 98.4 F 75 15 149/79 H 100 02/18/19 08:00 02/18/19 10:00 02/18/19 10:00 02/18/19 10:00 02/18/19 10:00 Intake & Output 02/17/19 02/18/19 02/19/19 06:59 06:59 06:59 Intake Total 2234 1950 849 Output Total 2400 9575 675 Balance -166 -675 174 Weight 113.1 kg 112.8 kg General appearance: PRESENT: no acute distress, obese Eye exam: PRESENT: PERRLA. ABSENT: scleral icterus Mouth exam: PRESENT: moist, neck supple Neck exam: ABSENT: thyromegaly, tracheal deviation, tracheostomy Respiratory exam: PRESENT: other - Coarse breath sounds bilaterally. Patient is intubated, on mechanical ventilatory support. Cardiovascular exam: PRESENT: RRR Pulses: PRESENT: normal radial pulses GI/Abdominal exam: PRESENT: soft. ABSENT: distended, firm, guarding, tenderness Rectal exam: PRESENT: black stool, other - Flexi-Seal fecal management system in place. Extremities exam: ABSENT: clubbing Musculoskeletal exam: ABSENT: deformity Neurological exam: PRESENT: other - Intubated and sedated. ABSENT: alert, awake Psychiatric exam: PRESENT: other - Intubated and sedated Skin exam: ABSENT: cyanosis, erythema, jaundice Results Laboratory Results: 02/18/19 05:40 02/18/19 05:40 02/17/19 02/17/19 02/17/19 14:55 14:55 14:55 WBC RBC Hgb Hct MCV MCH MCHC RDW Plt Count Seg Neutrophils % Carbonic Acid HCO3/H2CO3 Ratio ABG pH ABG pCO2 ABG pO2 ABG HCO3 ABG O2 Saturation ABG Base Excess FiO2 Sodium Potassium Chloride Carbon Dioxide Anion Gap BUN Creatinine Est GFR ( Amer) Glucose Lactic Acid 2.6 H Calcium Phosphorus Magnesium Stool Occult Blood POSITIVE Blood Type B POSITIVE Antibody Screen NEGATIVE 02/17/19 02/17/19 02/17/19 14:55 20:40 20:40 WBC 17.0 H RBC 3.70 L Hgb 10.5 L Hct 34.1 L MCV 92 MCH 28.5 MCHC 30.9 L RDW 18.9 H Plt Count 233 Seg Neutrophils % Not Reportable Carbonic Acid 1.63 H HCO3/H2CO3 Ratio 17:1 ABG pH 7.33 L ABG pCO2 54.1 H ABG pO2 86.0 ABG HCO3 28.1 H ABG O2 Saturation 95.8 ABG Base Excess 1.5 FiO2 40% Sodium 148.4 H Potassium 3.8 Chloride 110 H Carbon Dioxide 31 H Anion Gap 7 BUN 68 H Creatinine 1.45 H Est GFR ( Amer) 47 L Glucose 416 H* Lactic Acid Calcium 8.6 Phosphorus Magnesium Stool Occult Blood Blood Type Antibody Screen 02/17/19 02/18/19 02/18/19 20:40 05:40 05:40 WBC 16.3 H RBC 3.69 L Hgb 10.4 L Hct 33.8 L MCV 92 MCH 28.2 MCHC 30.7 L RDW 19.0 H Plt Count 224 Seg Neutrophils % Carbonic Acid 1.66 H HCO3/H2CO3 Ratio 18:1 ABG pH 7.37 ABG pCO2 55.1 H ABG pO2 106.0 H ABG HCO3 31.0 H ABG O2 Saturation 97.6 ABG Base Excess 4.7 FiO2 40% Sodium 152.9 H Potassium 3.6 Chloride 111 H Carbon Dioxide 32 H Anion Gap 10 BUN 64 H Creatinine 1.48 H Est GFR ( Amer) 46 L Glucose 72 L Lactic Acid Calcium 9.1 Phosphorus 4.5 Magnesium 3.0 H Stool Occult Blood Blood Type Antibody Screen 02/18/19 02/18/19 05:40 05:40 WBC 10.6 H RBC 3.32 L Hgb 9.5 L Hct 30.0 L MCV 90 MCH 28.7 MCHC 31.8 L RDW 18.4 H Plt Count 179 Seg Neutrophils % Not Reportable Carbonic Acid HCO3/H2CO3 Ratio ABG pH ABG pCO2 ABG pO2 ABG HCO3 ABG O2 Saturation ABG Base Excess FiO2 Sodium Potassium Chloride Carbon Dioxide Anion Gap BUN Creatinine Est GFR ( Amer) Glucose Lactic Acid 1.6 Calcium Phosphorus Magnesium Stool Occult Blood Blood Type Antibody Screen 02/14/19 11:07 Blood Blood Culture (PCR) - Final Staphylococcus Aureus 02/14/19 11:07 Blood Blood Culture - Final Mrsa (Meth Resis Staph Aureus) 02/14/19 11:42 Blood Blood Culture (PCR) - Final Staphylococcus Aureus 02/14/19 11:42 Blood Blood Culture - Final Mrsa (Meth Resis Staph Aureus) 02/16/19 10:07 Blood Blood Culture (PCR) - Final Staphylococcus Aureus 02/16/19 09:57 Blood Blood Culture (PCR) - Final Staphylococcus Aureus 02/08/19 02/08/19 02/08/19 04:06 04:06 05:30 Creatine Kinase Cancelled 33 CK-MB (CK-2) Cancelled Troponin I Cancelled NT-Pro-B Natriuret Pep Cancelled 02/08/19 02/11/19 02/13/19 05:45 03:18 01:22 Creatine Kinase CK-MB (CK-2) < 0.22 Troponin I 0.043 NT-Pro-B Natriuret Pep 7610 H 1970 H 84431 H Impressions: Chest CT 02/10/19 00:00 IMPRESSION: No pneumothorax. No pleural effusions. Bibasilar consolidation in both lower lobes. Slightly increased interstitial thickening, basilar predominance. Scattered pulmonary cysts and ground-glass opacities are again noted. Tubes and lines in expected positions. KUB X-Ray 02/16/19 15:49 IMPRESSION: The tip and side hole of the enteric tube project within the gastric lumen. Chest X-Ray 02/18/19 00:00 IMPRESSION: New left IJ line with the tip overlying the proximal SVC. Consider advancement 3-4 cm. Assessment & Plan - Diagnosis (1) Melena Is this a current diagnosis for this admission?: Yes (2) Anemia Qualifiers: Anemia type: unspecified type Qualified Code(s): D64.9 - Anemia, unspeci fied Is this a current diagnosis for this admission?: Yes - Plan Summary Plan Summary: This is a 48-year-old critically ill female with new onset melena and anemia. Consult to surgicalist to help rule out upper GI bleeding. OG tube lavage was inconclusive. Plan for EGD for definitive diagnosis. Informed consent was obtained from the patient's daughter, as she is unable to consent herself. Risks/benefits discussed, questions answered. Plan for EGD today.
--- NOTE | 2019-02-18 11:45 | Operative Report ---
Nonrecallable Operative Report DATE OF SURGERY: 02/18/19 PREOPERATIVE DIAGNOSIS: Melena and anemia POSTOPERATIVE DIAGNOSIS: 1. Gastritis, without active bleeding. 2. No evidence of new or old blood within the esophagus, stomach, or duodenum. OPERATION: EGD. SURGEON: CARLO ZALDIVAR ANESTHESIA: Other - Sedation provided by Dr. Barron. TISSUE REMOVED OR ALTERED: None COMPLICATIONS: None apparent ESTIMATED BLOOD LOSS: Minimal PROCEDURE: Procedure in detail: After informed consent was obtained from the patient's daughter, the endoscope was passed down the oropharynx, down the esophagus, and into the stomach. The stomach was insufflated with air. Immediately there was noted to be linear striations, consistent with gastritis. There was some petechiae, however there was no new or old blood within the body or antrum of the stomach. The stomach was fully insufflated and examined. The scope was passed into the duodenum, through the pylorus. The first and second portion of the duodenum appeared normal, without significant inflammation, irritation, or evidence of bleeding. There was bile within the second portion of the duodenum. The scope was then withdrawn into the stomach. A retroflexion maneuver was performed, noting no significant hiatal hernias. The scope was withdrawn up into the esophagus. No bleeding was identified throughout the length of the esophagus. The scope was then removed from the patient, and the procedure was concluded. All sponge, instrument, and needle counts were correct x2. Condition: Critical in ICU.
[2019-02-18] MEDS: WATER FOR INJECTION,STERILE 1,000 ML with SODIUM CHLORIDE 38.5 MEQ IV PRN ×2 (12:16)
[2019-02-18] MEDS: INSULIN GLARGINE,HUM.REC.ANLOG 1,000 UNIT/10 ML VIAL SUBCUT SCH ×2 (12:58→21:28)
[2019-02-18 13:08] LABS: HEMOGLOBIN 9.1 g/dL (12.0-15.5); MEAN CORPUSCULAR HEMOGLOBIN 28.6 pg (27.0-33.4); MEAN CORPUSCULAR HGB CONC 31.6 g/dL (32.0-36.0); MEAN CORPUSCULAR VOLUME 91 fl (80-97); PLATELET COUNT 161 10^3/uL (150-450); RED CELL DISTRIBUTION WIDTH 18.4 % (11.5-14.0); WHITE BLOOD COUNT 12.1 10^3/uL (4.0-10.5)
[2019-02-18 13:37] LABS: INTERNATIONAL RATION (INR) 1.11; PROTHROMBIN TIME 14.4 SEC (11.4-15.4)
[2019-02-18 13:38] LABS: PARTIAL THROMBOPLASTIN TIME 23.7 SEC (23.5-35.8)
[2019-02-18] MEDS: AMINO AC/PROTEIN HYDR/WHEY PRO 11 GM/45 ML PKT NG SCH ×3 (13:41→21:29)
[2019-02-18 13:42] LABS: ANION GAP 8 (5-19); BLOOD UREA NITROGEN 63 mg/dL (7-20); CALCIUM 8.9 mg/dL (8.4-10.2); CARBON DIOXIDE 31 mmol/L (22-30); CHLORIDE 110 mmol/L (98-107); GLUCOSE 188 mg/dL (75-110); POTASSIUM 3.8 mmol/L (3.6-5.0)
--- NOTE | 2019-02-18 14:09 | RADIOLOGY REPORT (SQ) ---
EXAM DESCRIPTION: KUB/ABDOMEN (SINGLE VIEW) COMPLETED DATE/TIME: 02/18/2019 1:45 pm REASON FOR STUDY: OG tube placement COMPARISON: None. NUMBER OF VIEWS: One view. TECHNIQUE: Supine radiographic image of the abdomen acquired. LIMITATIONS: None. FINDINGS: BOWEL GAS PATTERN: Limited. CALCIFICATIONS: No suspicious calcifications. SOFT TISSUES: No gross mass or suggestion of organomegaly. HARDWARE: NG tube tip the fundus of the stomach. BONES: No acute fracture. No worrisome bone lesions. OTHER: No other significant finding. IMPRESSION: NG tube tip in the fundus of the stomach. TECHNICAL DOCUMENTATION: JOB ID: [id number] [employer]- All Rights Reserved Reading location - IP/workstation name: [email or web address]
--- NOTE | 2019-02-18 14:23 | PDOC CRITICAL CARE PROG REPORT ---
General Date:: 02/18/19 ICU Day:: 10 Ventilator Day:: 10 Hospital Day:: 10 Resuscitation Status: Full Code Medical Power of Vegetable I Farmworker: DaughterAparna Events in the past 12 to 24 Hours:: 02.18.19: The patient had significant day yesterday. She had intermittent hypotension and melanotic bowel movement. She did have at least a gram decrease in hemoglobin. She is now improved and off vasopressor therapy. She continues to wean on modified BiPAP APRV settings. Because of the concern for persistent bacteremia and hypotension yesterday all vascular access has been discontinued and new central and arterial catheters have been placed. 02.17.19: Patient's ventilator parameters continue to be weaned. She has been changed from APRV to a modified BiPAP APR wean mode. Asked evening she had a small elevation in temperature followed by an elevation to above 101. This morning she developed hypotension. Colloid infusions were being used. Of note, milrinone was decreased to 0.375 and her steroids were reduced as well. She is more alert and now off her Precedex. There is been no excess secretions and chest x-ray is dramatically improved. 02.16.19: Patient continues to show improvement in her respiratory and ventilator status. Her chest x-ray is improving. As noted yesterday blood cultures from the were positive. Repeat blood cultures were drawn today. 02.15.19: Patient's respiratory status is slowly improving. Her P high is now been reduced to 22 her time I is been stretched out to 5 seconds. Is responsive on Precedex. She has had no further hemodynamic instability. Notably milrinone is noted to be at 0.5 mics. Review of systems relevant to events:: Has had no hemoptysis. Reduction in ventilator settings has had no hypoxia. Irrigation of the impedance of the pacemaker shows no impedance dysfunction. N otably blood cultures from the are positive. Review of systems relevant to events:: 02.18.19: The milrinone has been weaned to off. EGD done this morning shows no gastric bleeding minimal gastric irritation no duodenal ulcer or bleeding. Patient has had no further melanotic stools and has been hemodynamically stable. No requirement for vasopressor therapy. During rounds she was placed on pressure support/CPAP and tolerating well 02.18.19: Patient's milrinone has been decreased to 0.35 without any noticeable side effects. Lactic acid has improved as well. All central access and arterial lines were removed however due to anatomy she required a new central access and arterial catheter placement. There was questionable thrombus in the left radial artery but there is good capillary refill. Lengthy discussions were carried out with infectious disease and the combined cardiology CT program via the transfer center. The consensus is that patient needs to be treated for at least 6 weeks and antibiotics before consideration of pacemaker lead explant. Patient has had notable hyperglycemia and hypernatremia. Lantus was ordered but she required temporary insulin drip which is now off. Steroids have been reduced. Chest x-ray continues to improve 02.16.19: Central line sites appear clean dry and intact. Central line and arterial catheters were placed 02/08/2019. There are no excess secretions and chest x-ray is improved. A basic echocardiogram was done with the reduction in milrinone showing an improvement in cardiac function comparative to her admission. Nurses note that they were unable to give any attrition through the NG tube. This was obviously changed out. When the NG tube was removed there was obvious and notable caking of nutritional elements around the NG tube. OG tube was placed because of intubation. 02.16.19: Patient has been maintained on antibiotics and this is day 8 of linezolid day 3 of IV vancomycin. She is now off Levophed and milrinone has been weaned to 0.35 without any untoward hemodynamic side effects. Reason for ICU Addmission:: Respiratory failure - Medications: Medications reviewed and adjusted accordingly: Yes Vasopressors:: Milrinone now at 0.2 mcg to be transitioned to off; Levophed off Sedation:: Precedex , fentanyl weaning Physical Exam Vital Signs: Temp Pulse Resp BP Pulse Ox 97.9 F 75 12 117/65 100 02/18/19 06:00 02/17/19 20:00 02/18/19 06:00 02/17/19 18:27 02/18/19 06:00 Intake & Output 02/17/19 02/18/19 02/19/19 06:59 06:59 06:59 Intake Total 0974 1950 Output Total 6842 0934 375 Balance -166 -675 -375 Weight 113.1 kg 112.8 kg Weight/Height Weight 112.8 kg Height 5 ft 4 in General appearance: PRESENT: no acute distress, morbidly obese, well-nourished Exam: Intubated nontoxic older appearing 48-year-old black female no acute distress responsive Eye exam: PRESENT: conjunctival injection, conjunctiva pink, PERRLA. ABSENT: nystagmus, scleral icterus Mouth exam: PRESENT: moist Neck exam: PRESENT: other - New CVC Left IJ. No hematoma. Right IJ site shows no hematoma. Catheter removed. ABSENT: carotid bruit, JVD, lymphadenopathy, thyromegaly Respiratory exam: PRESENT: accessory muscle use, clear to auscultation renu, unlabored. ABSENT: rales, rhonchi, tachypnea, wheezes Cardiovascular exam: PRESENT: RRR, other - Paced rhythma. ABSENT: diastolic murmur, rubs, systolic murmur Pulses: PRESENT: normal radial pulses - No cyanosis as well., normal dorsalis pedis pul, +1 pedal pulses bilateral GI/Abdominal exam: PRESENT: normal bowel sounds, soft. ABSENT: ascites, distended, guarding, mass, organolmegaly, rebound, tenderness Gentrourinary exam: PRESENT: indwelling catheter Extremities exam: PRESENT: pedal edema, +1 edema, other - Has furrowing but improved from yesterday Musculoskeletal exam: ABSENT: deformity, dislocation Neurological exam: PRESENT: awake - follows commands. ABSENT: motor sensory d eficit Psychiatric exam: ABSENT: agitated Focused psych exam: ABSENT: psychomotor agitation, restlessness Skin exam: PRESENT: intact. ABSENT: cyanosis, mottled Tubes/Lines: PRESENT: Endotracheal Tube, Central Line - New on left, Arterial Catheter - New right axillar. Clean and dry Laboratory/Radiographs Laboratory Results: 02/18/19 05:40 02/18/19 05:40 02/17/19 02/17/19 02/17/19 14:55 14:55 14:55 WBC RBC Hgb Hct MCV MCH MCHC RDW Plt Count Seg Neutrophils % Carbonic Acid HCO3/H2CO3 Ratio ABG pH ABG pCO2 ABG pO2 ABG HCO3 ABG O2 Saturation ABG Base Excess FiO2 Sodium Potassium Chloride Carbon Dioxide Anion Gap BUN Creatinine Est GFR ( Amer) Glucose Lactic Acid 2.6 H Calcium Phosphorus Magnesium Stool Occult Blood POSITIVE Blood Type B POSITIVE Antibody Screen NEGATIVE 02/17/19 02/17/19 02/17/19 14:55 20:40 20:40 WBC 17.0 H RBC 3.70 L Hgb 10.5 L Hct 34.1 L MCV 92 MCH 28.5 MCHC 30.9 L RDW 18.9 H Plt Count 233 Seg Neutrophils % Not Reportable Carbonic Acid 1.63 H HCO3/H2CO3 Ratio 17:1 ABG pH 7.33 L ABG pCO2 54.1 H ABG pO2 86.0 ABG HCO3 28.1 H ABG O2 Saturation 95.8 ABG Base Excess 1.5 FiO2 40% Sodium 148.4 H Potassium 3.8 Chloride 110 H Carbon Dioxide 31 H Anion Gap 7 BUN 68 H Creatinine 1.45 H Est GFR ( Amer) 47 L Glucose 416 H* Lactic Acid Calcium 8.6 Phosphorus Magnesium Stool Occult Blood Blood Type Antibody Screen 02/17/19 02/18/19 02/18/19 20:40 05:40 05:40 WBC 16.3 H RBC 3.69 L Hgb 10.4 L Hct 33.8 L MCV 92 MCH 28.2 MCHC 30.7 L RDW 19.0 H Plt Count 224 Seg Neutrophils % Carbonic Acid 1.66 H HCO3/H2CO3 Ratio 18:1 ABG pH 7.37 ABG pCO2 55.1 H ABG pO2 106.0 H ABG HCO3 31.0 H ABG O2 Saturation 97.6 ABG Base Excess 4.7 FiO2 40% Sodium 152.9 H Potassium 3.6 Chloride 111 H Carbon Dioxide 32 H Anion Gap 10 BUN 64 H Creatinine 1.48 H Est GFR ( Amer) 46 L Glucose 72 L Lactic Acid Calcium 9.1 Phosphorus 4.5 Magnesium 3.0 H Stool Occult Blood Blood Type Antibody Screen 02/18/19 02/18/19 05:40 05:40 WBC 10.6 H RBC 3.32 L Hgb 9.5 L Hct 30.0 L MCV 90 MCH 28.7 MCHC 31.8 L RDW 18.4 H Plt Count 179 Seg Neutrophils % Not Reportable Carbonic Acid HCO3/H2CO3 Ratio ABG pH ABG pCO2 ABG pO2 ABG HCO3 ABG O2 Saturation ABG Base Excess FiO2 Sodium Potassium Chloride Carbon Dioxide Anion Gap BUN Creatinine Est GFR ( Amer) Glucose Lactic Acid 1.6 Calcium Phosphorus Magnesium Stool Occult Blood Blood Type Antibody Screen 02/14/19 11:07 Blood Blood Culture (PCR) - Final Staphylococcus Aureus 02/14/19 11:42 Blood Blood Culture (PCR) - Final Staphylococcus Aureus 02/16/19 10:07 Blood Blood Culture (PCR) - Final Staphylococcus Aureus 02/16/19 09:57 Blood Blood Culture (PCR) - Final Staphylococcus Aureus 02/08/19 02/08/19 02/08/19 04:06 04:06 05:30 Creatine Kinase Cancelled 33 CK-MB (CK-2) Cancelled Troponin I Cancelled NT-Pro-B Natriuret Pep Cancelled 02/08/19 02/11/19 02/13/19 05:45 03:18 01:22 Creatine Kinase CK-MB (CK-2) < 0.22 Troponin I 0.043 NT-Pro-B Natriuret Pep 7610 H 1970 H 45400 H Impressions: Chest CT 02/10/19 00:00 IMPRESSION: No pneumothorax. No pleural effusions. Bibasilar consolidation in both lower lobes. Slightly increased interstitial thickening, basilar predominance. Scattered pulmonary cysts and ground-glass opacities are again noted. Tubes and lines in expected positions. KUB X-Ray 02/16/19 15:49 IMPRESSION: The tip and side hole of the enteric tube project within the gastric lumen. Chest X-Ray 02/18/19 00:00 IMPRESSION: New left IJ line with the tip overlying the proximal SVC. Consider advancement 3-4 cm. All labs, radiographs, diagnostic studies and EKGs were personally reviewed: Yes In addition, reports of radiographic and diagnostic studies were read: Yes Assessment and Plan - Diagnosis (1) Acute gastrointestinal bleeding Is this a current diagnosis for this admission?: Yes Plan: EGD negative. No further bleeding. No evidence for Upper GI source. Hold heparin (2) ARDS (adult respiratory distress syndrome) Is this a current diagnosis for this admission?: Yes Plan: 02.18.19: Resolved. Transitioning to BiPap. Diuresis in 24 hours 02.17.19: Dramatic improvement. Weaning on modified APRV-biPap. Check ABG 02.16.19:Continue to wean Phigh and lengthen THigh. CXR improving Phigh decreased to 20, Plow increased to 5, FiO2 at 50% (3) MRSA (methicillin resistant staphylococcus aureus) pneumonia Qualifiers: Laterality: bilateral Lung location: unspecified part of lung Qualified Code(s): J15.212 - Pneumonia due to Methicillin resistant Staphylococcus aureus Is this a current diagnosis for this admission?: Yes (4) Sepsis Qualifiers: Sepsis type: methicillin resistant Staphylococcus aureus Sepsis acute organ dysfunction status: with acute organ dysfunction Severe sepsis acute organ dysfunction type: acute respiratory failure Acute respiratory failure type: with hypoxia Severe sepsis shock status: with septic shock Qualified Cod e(s): A41.02 - Sepsis due to Methicillin resistant Staphylococcus aureus; R65.21 - Severe sepsis with septic shock; J96.01 - Acute respiratory failure with hypoxia Is this a current diagnosis for this admission?: Yes (5) Hypotension Is this a current diagnosis for this admission?: Yes Plan: Resolved (6) MRSA bacteremia Is this a current diagnosis for this admission?: Yes Plan: Persistent. Repeat cultures done (7) Pneumonitis Is this a current diagnosis for this admission?: Yes (8) Ischemic cardiomyopathy with implantable cardioverter-defibrillator (ICD) Is this a current diagnosis for this admission?: Yes (9) Cardiomyopathy, ischemic Is this a current diagnosis for this admission?: Yes Plan: Bi-ventricular, chronic systolic (10) Atrial fibrillation Qualifiers: Atrial fibrillation type: longstanding persistent Qualified Code(s): I48.11 - Longstanding persistent atrial fibrillation Is this a current diagnosis for this admission?: Yes Plan Summary: 02.18.19: Patient had melanotic stool with negative EGD. I was personally there to observe the EGD and there is no evidence of gastritis or duodenal bleeding. Her episodes of melena have improved and we have held the heparin for now. We will continue to monitor hemoglobin and hematocrit. She had transient hypotension however that has improved and she is off all vasopressor therapy. Patient has developed hypernatremia. Was improving but developed higher level this morning. Have started quarter normal saline for now. Will need to watch for volume overload. The sodium increase may be related to the albumin that was given and steroids. Steroids are being weaned. Patient has had significant hyperglycemia. Was transiently on an insulin drip until Lantus became effective. Blood sugars are now improved and she is on standard twice daily Lantus dosing. We will continue to monitor closely as her steroid doses are being reduced. Patient's ARDS has improved and we are reducing APRV modified BiPAP to standard BiPAP. He was transiently on conservative volume control therapy during the EGD. Her chest x-ray has improved and we will continue to monitor her situation with the reduction and steroids. She will need diuresis in 24 hours pending her sodium levels. Milrinone has been discontinued. We will watch for recrudescence of failure or worsening clinical status. Has persistent bacteremia. Have redone blood cultures today. We increased her vancomycin to assure her a higher trough level as well. As noted in yesterday's note we will continue for at least 6 weeks. She will need a PICC line. Have ordered this for tomorrow. We are still suspicious that the patient's pneumonia has also been exacerbated by amiodarone toxicity. Does have significant pulmonary hypertension and reduced LV function. She may be a candidate for digoxin therapy. Holding anticoagulation until bleeding risks are minimized. Anticipate liberation from ventilation in the next 24 hours. 02.17.19: From a respiratory standpoint patient continues to show dramatic improvement. She does have positive MRSA on routine sputum culture taken from tracheal tube. We were also concerned that she had a mixed interstitial-alveolar pattern from amiodarone and or vaping. We are encouraged that her respiratory status has dramatically improved and she has been transitioned from APRV to modified BiPAP on APRV mode. What I am most concerned about is the onset of hypotension with fever. Notably blood cultures drawn on the are positive for MRSA once again. The disconcerting aspect is that no cultures drawn on admission were positive. She did present with pneumonia and the possibility of bacterial translocation during the acute process may be now evident in the bloodstream. Although the possibility of a reduction in milrinone could have led to a cardiogenic source are bedside critical care echo done this morning shows an actual improvement in LV function. Certainly there is no dramatic decrease. Another possibility would be relative adrenal insufficiency however we have maintained her on steroids. She was reduced from 125 mg q. 8 to 60 mg every 8. Although this would be a convenient diagnosis concern for recurrent hypotension associated with sepsis is a paramount concern. I have reached out to the infectious disease team at [facility] and to the CT surgery team as well. Her discussions with infectious disease and CT surgery and cardiology the plan is to treat her for at least 6 weeks before considering removal of the pacemaker leads. Given her bacteremia and the possibility of MRSA attachment to the catheter. During this dictation patient had a dark melanotic appearing bowel movement. This may explain her hypotension. Her CBC this morning was unchanged and repeat shows minimal decrease. Have started Protonix. Cannot give Protamine secondary to signficant side-effects and black box warning for pulmonary hypertension and advanced LV failure, both of which she has. Her PTT is improved and with the addition of PPI, the bleeding may stop.There is no blood from OGT but will aspirate to determine. If bleeding continues or she becomes unstable, will give Traxenemic Acid. Will monitor labs. Updated Aparna, daughter/MPOA as well as patient's sisters/family prior to bleeding. Have left a message with daughter Aparna and updated sister. 02.16.19: The patient's overall condition continues to improve. I reduce the P high to 20 and adjusted the P low to 5 and affect to wean on a bilevel BiPAP mode. I have reduced her steroids as well will have to watch for recrudescence. We have also reduced her milrinone and all of these combined effects will need to be monitored to see if there is any untoward worsening. Her pneumonitis appears to be a combination of amiodarone toxicity and possible vaping. In addition she has MRSA in her sputum suggestive of MRSA pneumonia. We are in a conundrum because her pacemaker/AICD wires have significant fibrous tissue. All blood cultures taken have been positive x2. The difficulty is determining whether her initial presentation with hypoxia and pneumonia has led to the MRSA bacteremia or the bacteremia from infection on the fibers pacemaker leads has led to pneumonia. I placed a call to Dr. Rojo to discuss the case. I also spoke with our cardiology team who are in touch with the cardiology team at [facility]. The plan for now to continue to monitor for bacteremia and if there is no clearance and certainly if there is worsening she will definitely need referral. In that there is no worsening hypotension or need for vasopressor therapy is unlikely that the bacteremia is related to a fibrous encasement of bacteria. Dr. Martin did speak with the CT surgery team at [facility]. The plan is to continue and complete antibiotics and repeat blood cultures when this is complete. If there is continued bacteremia or if the blood cultures continue to be positive then they would consider explant. At this point given her pneumonia and her overall improvement it is unlikely that the pacemaker wire leads are the culprit for the bacteremia. We will need to be aware of the possible implantation of this bacteremia during her active infection. ] Will continue to provide supportive care. Vancomycin levels are low and have increased dose. She has hypernatremia and have started free water flushes. She also has an NG tube which we have converted to an OG tube to prevent sinusitis. 02.15.19: Patient has persistent bacteremia. Given the state it is still conceivable that there is fibrinous exudate on the pacemaker wire. Will discuss with infectious disease and CT surgery to determine whether she will need transfer for removal of the pacemaker leads. I am concerned because her initial blood cultures on admission were negative for bacteremia. Does have MRSA pneumonia and the blood cultures may be reflective of this. Continue to repeat blood cultures every 48 hours. Pulmonary status has improved and her ARDS is slowly improving. Have decreased P high and have increased her time high. To new to attempt to wean. X-rays notably improving as well. Updated family over the phone and they are aware of the situation. His maker impedance was interrogated and found to be within normal limits. May need transfer 02.14.19: The patient has had subtle improvement and now has no need for Levophed therapy. Fact her blood pressure slightly higher and have increased the milrinone to help supplant hypertension and affect pulmonary hypertension and assist with RV function. Patient has what appears to be an enlarged fibrinous changes of to the pacemaker/AICD lead seen on JOSS. Plan is that if she has persistent bacteremia this will need to be removed. I am concerned that she has amiodarone induced toxicity to her lung as well as possible vaping injury. Normally, in consideration, steroid therapy would need to be increased at pulse dose for 2 to 3 days. Have also screened for autoimmune and vasculitic component all of which are negative. She appears to have some improvement with the use of milrinone and given the need for a PRV will continue this. We will follow microbiologic studies. If further blood cultures are positive we will transition to possible transfer for removal of leads. She may need [facility]. I consulted infectious diseases and discussed the case with them. They are in agreement with our plan but asked that we add vancomycin to cover bacteremia. They would like to continue linezolid which has excellent pulmonary penetration. He may need a CT scan to rule out necrotizing pneumonia however is unable to be transported at this time. We will attempt to contact family to update them. 02.13.19: Patient's overall status has improved but she still has significant ARDS. PF ratio is slightly improved FiO2 is being reduced as well as her P high. She has a history of atrial fibrillation with cardiomyopathy and had been on NOAC therapy. We will start her on IV heparin until safety can be assured for NOAC therapy. Patient is on low-dose Levophed and have reduce milrinone 0.2 mcgs. Our hope is to reduce the Levophed further. As her ventilator requirements improved the plan is to wean the milrinone. Patients with advanced ARDS have significant pulmonary hypertension and right ventricular overload. Given her already altered physiology this was necessary to help with oxygenation. We will continue steroid therapy and supportive care. Start nutrition. Patient has bacteremia and will need JOSS. Will start heparin and discontinued 2 hours prior to JOSS. No heparin bolus Attempted to contact family but have not been able to do so. 19: Patient has significant hypoxia with a PF ratio consistent with Huslia criteria severe ARDS. Have changed some vent settings to support better ventilation and oxygenation. O2 is now being weaned. On critical care ultrasound she appears to have biventricular systolic dysfunction which we have known about in the past. Given the need for APRV and ARDS induced right ventricular dysfunction we have started her on milrinone to help support forward flow. We will monitor her response to this. Had been diuresed and her IVC is still dilated however she is on APRV which will augment preload. Of interest that she has not become hypotensive. To new to monitor for decompensation including pneumothorax. Concerned that this represents amiodarone toxicity of the lung have continued high-dose steroids which is the only known treatment. At this point she is too hypoxic to allow for bronchoscopy to obtain CD4 CD8 counts. Have attempted to contact family and him waiting call to update them. Critical Time Critical Time (minutes): 68 Level of Care: ICU Anticipated discharge: Acute Rehab -: 1. The care of a critical patient is a dynamic process. This note is a business banking representative synopsis but static in nature. The timeframe for treatments given in order is not necessarily the actual time these treatments may have been done. 2. This patient requires critical care secondary to ongoing requirements for therapy not offered or safe outside the critical care environment. Transfer to a lower level of care will result in altered life or limb morbidity and mortality. 3. Multidisciplinary rounds completed. 4. ABCDE bundle addressed.
[2019-02-18] MEDS: METOPROLOL TARTRATE 50 MG TABLET NG SCH (14:48)
[2019-02-18] MEDS: BUSPIRONE HCL 10 MG TABLET NG SCH ×2 (14:48→21:29)
[2019-02-18] MEDS: SACUBITRIL/VALSARTAN 97 MG/103 MG TABLET NG SCH (14:49)
[2019-02-18] MEDS ORDERED: FUROSEMIDE INJ/PF 20 MG/2 ML SDV IV ONE (15:15)
[2019-02-18 15:34] LABS: ARTERIAL BLOOD BASE EXCESS 2.3 mmol/L; ARTERIAL BLOOD FIO2 50%; ARTERIAL BLOOD H2CO3 1.52 mmol/L (1.05-1.35); ARTERIAL BLOOD HCO3 28.3 mmol/L (20-24); ARTERIAL BLOOD PCO2 50.5 mmHg (35-45); ARTERIAL BLOOD PH 7.37 (7.35-7.45); ARTERIAL BLOOD PO2 72.9 mmHg (80-100); ARTERIAL BLOOD TOTAL CO2 29.8 mmol/L (21-25)
[2019-02-18] MEDS: FAMOTIDINE 20 MG TABLET PO SCH ×2 (15:45→21:29)
[2019-02-18] MEDS ORDERED: DEXTROSE 40% GEL 15 GM TUBE PO PRN ×2 (17:15)
--- NOTE | 2019-02-18 17:20 | Progress Note ---
Provider Note Provider Note: CARDIOLOGY PROGRESS NOTE by Dr. Griselda Martin. On 02/18/2019. OBJECTIVE: The patient denies any chest pain or discomfort. She is intubated but awake. She does answer questions appropriately by case chest. She denies shortness of breath. There is no firing of AICD.. There is no atrial arrhythmia especially no recurrence of atrial fibrillation. There is no ventricular tachycardia noted the patient is off amiodarone. The patient had a EGD done by Dr. Henson due to melanotic stools. This showed no evidence of fresh or new or old blood in the esophagus and stomach. Patient continues to show slow improvement. PHYSICAL EXAMINATION: The patient is morbidly obese. In no acute distress. She is intubated. Selected Entries 02/18/19 02/18/19 16:00 16:16 Temperature 98.4 F Temperature Core Source Pulse Rate 65 Respiratory 15 Rate Blood Pressure 133/68 H [Left Upper Arm ] Blood Pressure 89 Mean [Left Upper Arm] Blood Pressure Supine Position [Left 1] Blood Pressure Supine Position [Left Upper Arm] O2 Sat by Pulse 99 100 Oximetry Oxygen Delivery Mechanical Method ( Ventilator includes room air) Fraction of 50 Inspired Oxygen (FIO2) HEAD: Is atraumatic normocephalic. EYES: Pupils are equal round regular reactive to light. HEENT is negative. SKIN: There is no skin rashes or skin lesions. There is no particular ecchymosis. NECK: Is supple. There is mild JVD present. Carotids are equal there is no bruits. There is no lymphadenopathy. There is no goiter. There is no accessory muscle respiration use. Trachea central. LUNGS: Shows bibasilar rales of CHF. There are no rhonchi or wheezing. There is also dry crackles in the right lower lobe. There is diminished air entry. On percussion there is hyperresonance. On palpation there is no chest wall tenderness. HEART: S1-S2 is heard. There is no S3 gallop. There is no S4 gallop. There is systolic murmur mitral regurgitation tricuspid regurgitation present. There is no aortic stenosis murmur. There is no aortic insufficiency murmur. There is no rub. ABDOMEN: Is obese. Nontender. There is no hepatosplenomegaly. Bowel sounds are well heard. There is no rebound guarding or rigidity. EXTREMITIES: Femorals are deep. Femorals are diminished. There is no femoral bruits. There is decreased leg pulses. There is mild pedal edema. There is no DVT or cellulitis. There is no calf tenderness. 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 She responds appropriately to verbal requests. In spite of restraints she is showing that she can move all 4 extremities. PSYCHIATRIC: The patient does not appear to be agitated or anxious. She is not fighting the ventilator. Labs- All tests 24 hr 02/17/19 02/17/19 02/17/19 20:40 20:40 20:40 WBC 16.3 H RBC 3.69 L Hgb 10.4 L Hct 33.8 L MCV 92 MCH 28.2 MCHC 30.7 L RDW 19.0 H Plt Count 224 Lymph % (Auto) [place] % (Auto) Eos % (Auto) Baso % (Auto) Absolute Neuts (auto) Absolute Lymphs (auto) Absolute Monos (auto) Absolute Eos (auto) Absolute Basos (auto) Total Counted Seg Neutrophils % Seg Neuts % (Manual) Band Neutrophils % Lymphocytes % (Manual) Monocytes % (Manual) Eosinophils % (Manual) Basophils % (Manual) Abs Neuts (Manual) Abs Lymphs (Manual) Abs Monocytes (Manual) Absolute Eos (Manual) Abs Basophils (Manual) Platelet Comment Polychromasia Anisocytosis PT INR APTT Carbonic Acid 1.63 H HCO3/H2CO3 Ratio 17:1 ABG pH 7.33 L ABG pCO2 54.1 H ABG pO2 86.0 ABG HCO3 28.1 H ABG Total CO2 29.8 H ABG O2 Saturation 95.8 ABG Base Excess 1.5 FiO2 40% Sodium 148.4 H Potassium 3.8 Chloride 110 H Carbon Dioxide 31 H Anion Gap 7 BUN 68 H Creatinine 1.45 H Est GFR ( Amer) 47 L Est GFR (MDRD) Non-Af 39 L Glucose 416 H* POC Glucose Lactic Acid Calcium 8.6 Phosphorus Magnesium Time Trough Drawn Vancomycin Trough 02/18/19 02/18/19 02/18/19 00:34 01:42 02:29 WBC RBC Hgb Hct MCV MCH MCHC RDW Plt Count Lymph % (Auto) [place] % (Auto) Eos % (Auto) Baso % (Auto) Absolute Neuts (auto) Absolute Lymphs (auto) Absolute Monos (auto) Absolute Eos (auto) Absolute Basos (auto) Total Counted Seg Neutrophils % Seg Neuts % (Manual) Band Neutrophils % Lymphocytes % (Manual) Monocytes % (Manual) Eosinophils % (Manual) Basophils % (Manual) Abs Neuts (Manual) Abs Lymphs (Manual) Abs Monocytes (Manual) Absolute Eos (Manual) Abs Basophils (Manual) Platelet Comment Polychromasia Anisocytosis PT INR APTT Carbonic Acid HCO3/H2CO3 Ratio ABG pH ABG pCO2 ABG pO2 ABG HCO3 ABG Total CO2 ABG O2 Saturation ABG Base Excess FiO2 Sodium Potassium Chloride Carbon Dioxide Anion Gap BUN Creatinine Est GFR ( Amer) Est GFR (MDRD) Non-Af Glucose POC Glucose 290 H 191 H 134 H Lactic Acid Calcium Phosphorus Magnesium Time Trough Drawn Vancomycin Trough 02/18/19 02/18/19 02/18/19 03:40 05:07 05:40 WBC RBC Hgb Hct MCV MCH MCHC RDW Plt Count Lymph % (Auto) [place] % (Auto) Eos % (Auto) Baso % (Auto) Absolute Neuts (auto) Absolute Lymphs (auto) Absolute Monos (auto) Absolute Eos (auto) Absolute Basos (auto) Total Counted Seg Neutrophils % Seg Neuts % (Manual) Band Neutrophils % Lymphocytes % (Manual) Monocytes % (Manual) Eosinophils % (Manual) Basophils % (Manual) Abs Neuts (Manual) Abs Lymphs (Manual) Abs Monocytes (Manual) Absolute Eos (Manual) Abs Basophils (Manual) Platelet Comment Polychromasia Anisocytosis PT INR APTT Carbonic Acid 1.66 H HCO3/H2CO3 Ratio 18:1 ABG pH 7.37 ABG pCO2 55.1 H ABG pO2 106.0 H ABG HCO3 31.0 H ABG Total CO2 32.7 H ABG O2 Saturation 97.6 ABG Base Excess 4.7 FiO2 40% Sodium Potassium Chloride Carbon Dioxide Anion Gap BUN Creatinine Est GFR ( Amer) Est GFR (MDRD) Non-Af Glucose POC Glucose 87 65 L Lactic Acid Calcium Phosphorus Magnesium Time Trough Drawn Vancomycin Trough 02/18/19 02/18/19 02/18/19 05:40 05:40 05:40 WBC 10.6 H RBC 3.32 L Hgb 9.5 L Hct 30.0 L MCV 90 MCH 28.7 MCHC 31.8 L RDW 18.4 H Plt Count 179 Lymph % (Auto) Not Reportable [place] % (Auto) Not Reportable Eos % (Auto) Not Reportable Baso % (Auto) Not Reportable Absolute Neuts (auto) Not Reportable Absolute Lymphs (auto) Not Reportable Absolute Monos (auto) Not Reportable Absolute Eos (auto) Not Reportable Absolute Basos (auto) Not Reportable Total Counted 100 Seg Neutrophils % Not Reportable Seg Neuts % (Manual) 88 H Band Neutrophils % 3 Lymphocytes % (Manual) 6 L Monocytes % (Manual) 3 Eosinophils % (Manual) 0 Basophils % (Manual) 0 Abs Neuts (Manual) 9.6 H Abs Lymphs (Manual) 0.6 Abs Monocytes (Manual) 0.3 Absolute Eos (Manual) 0.0 Abs Basophils (Manual) 0.0 Platelet Comment ADEQUATE Polychromasia 1+ Anisocytosis 1+ PT INR APTT Carbonic Acid HCO3/H2CO3 Ratio ABG pH ABG pCO2 ABG pO2 ABG HCO3 ABG Total CO2 ABG O2 Saturation ABG Base Excess FiO2 Sodium 152.9 H Potassium 3.6 Chloride 111 H Carbon Dioxide 32 H Anion Gap 10 BUN 64 H Creatinine 1.48 H Est GFR ( Amer) 46 L Est GFR (MDRD) Non-Af 38 L Glucose 72 L POC Glucose Lactic Acid Calcium 9.1 Phosphorus 4.5 Magnesium 3.0 H Time Trough Drawn 0540 Vancomycin Trough 22.0 H 02/18/19 02/18/19 02/18/19 05:40 05:41 08:18 WBC RBC Hgb Hct MCV MCH MCHC RDW Plt Count Lymph % (Auto) [place] % (Auto) Eos % (Auto) Baso % (Auto) Absolute Neuts (auto) Absolute Lymphs (auto) Absolute Monos (auto) Absolute Eos (auto) Absolute Basos (auto) Total Counted Seg Neutrophils % Seg Neuts % (Manual) Band Neutrophils % Lymphocytes % (Manual) Monocytes % (Manual) Eosinophils % (Manual) Basophils % (Manual) Abs Neuts (Manual) Abs Lymphs (Manual) Abs Monocytes (Manual) Absolute Eos (Manual) Abs Basophils (Manual) Platelet Comment Polychromasia Anisocytosis PT INR APTT Carbonic Acid HCO3/H2CO3 Ratio ABG pH ABG pCO2 ABG pO2 ABG HCO3 ABG Total CO2 ABG O2 Saturation ABG Base Excess FiO2 Sodium Potassium Chloride Carbon Dioxide Anion Gap BUN Creatinine Est GFR ( Amer) Est GFR (MDRD) Non-Af Glucose POC Glucose 78 178 H Lactic Acid 1.6 Calcium Phosphorus Magnesium Time Trough Drawn Vancomycin Trough 02/18/19 02/18/19 02/18/19 12:50 12:52 13:03 WBC 12.1 H RBC 3.20 L Hgb 9.1 L Hct 29.0 L MCV 91 MCH 28.6 MCHC 31.6 L RDW 18.4 H Plt Count 161 Lymph % (Auto) [place] % (Auto) Eos % (Auto) Baso % (Auto) Absolute Neuts (auto) Absolute Lymphs (auto) Absolute Monos (auto) Absolute Eos (auto) Absolute Basos (auto) Total Counted Seg Neutrophils % Seg Neuts % (Manual) Band Neutrophils % Lymphocytes % (Manual) Monocytes % (Manual) Eosinophils % (Manual) Basophils % (Manual) Abs Neuts (Manual) Abs Lymphs (Manual) Abs Monocytes (Manual) Absolute Eos (Manual) Abs Basophils (Manual) Platelet Comment Polychromasia Anisocytosis PT INR APTT Carbonic Acid HCO3/H2CO3 Ratio ABG pH ABG pCO2 ABG pO2 ABG HCO3 ABG Total CO2 ABG O2 Saturation ABG Base Excess FiO2 Sodium 148.7 H Potassium 3.8 Chloride 110 H Carbon Dioxide 31 H Anion Gap 8 BUN 63 H Creatinine 1.56 H Est GFR ( Amer) 43 L Est GFR (MDRD) Non-Af 36 L Glucose 188 H POC Glucose 207 H Lactic Acid Calcium 8.9 Phosphorus Magnesium Time Trough Drawn Vancomycin Trough 02/18/19 02/18/19 02/18/19 13:03 14:50 15:53 WBC RBC Hgb Hct MCV MCH MCHC RDW Plt Count Lymph % (Auto) [place] % (Auto) Eos % (Auto) Baso % (Auto) Absolute Neuts (auto) Absolute Lymphs (auto) Absolute Monos (auto) Absolute Eos (auto) Absolute Basos (auto) Total Counted Seg Neutrophils % Seg Neuts % (Manual) Band Neutrophils % Lymphocytes % (Manual) Monocytes % (Manual) Eosinophils % (Manual) Basophils % (Manual) Abs Neuts (Manual) Abs Lymphs (Manual) Abs Monocytes (Manual) Absolute Eos (Manual) Abs Basophils (Manual) Platelet Comment Polychromasia Anisocytosis PT 14.4 INR 1.11 APTT 23.7 Carbonic Acid 1.52 H HCO3/H2CO3 Ratio 18:1 ABG pH 7.37 ABG pCO2 50.5 H ABG pO2 72.9 L ABG HCO3 28.3 H ABG Total CO2 29.8 H ABG O2 Saturation 94.0 ABG Base Excess 2.3 FiO2 50% Sodium Potassium Chloride Carbon Dioxide Anion Gap BUN Creatinine Est GFR ( Amer) Est GFR (MDRD) Non-Af Glucose POC Glucose 193 H Lactic Acid Calcium Phosphorus Magnesium Time Trough Drawn Vancomycin Trough Chest X-Ray 02/08/19 00:00 IMPRESSION: Slight advancement of endotracheal tube. Otherwise no change. Chest X-Ray 02/08/19 00:00 IMPRESSION: NO PNEUMOTHORAX FOLLOWING CENTRAL LINE PLACEMENT. OTHERWISE NO CHANGE. Chest X-Ray 02/08/19 03:15 IMPRESSION: Cardiomegaly. Endotracheal and enteric tubes are in place. Postsurgical changes of the mediastinum. Airspace opacities right lung base. copyright 2010 [employer]- All Rights Reserved Chest CT 02/10/19 00:00 IMPRESSION: No pneumothorax. No pleural effusions. Bibasilar consolidation in both lower lobes. Slightly increased interstitial thickening, basilar predominance. Scattered pulmonary cysts and ground-glass opacities are again noted. Tubes and lines in expected positions. Chest X-Ray 02/12/19 00:00 IMPRESSION: 1. Bilateral perihilar airspace consolidation which may be due to edema, atelectasis or pneumonia. 2. Marked cardiomegaly. 3. Remote postsurgical changes of the mediastinum. 4. Life support lines and tubes as described above. Chest X-Ray 02/13/19 06:00 IMPRESSION: STABLE APPEARANCE OF THE CHEST. SUPPORT DEVICES UNCHANGED. Chest X-Ray 02/14/19 06:00 IMPRESSION: Mildly worsened bibasilar predominant opacities, likely edema although infection not excluded. Stable support lines and tubes as above. Chest X-Ray 02/15/19 03:06 IMPRESSION: Diffuse persistent but improving interstitial and alveolar opacities throughout both lungs. Stable cardiomegaly. Chest X-Ray 02/16/19 06:00 IMPRESSION: Unchanged radiographic appearance of the chest. KUB X-Ray 02/16/19 15:49 IMPRESSION: The tip and side hole of the enteric tube project within the gastric lumen. Chest X-Ray 02/17/19 06:00 IMPRESSION: Findings most consistent with congestive failure an asymmetric pulmonary edema. Slightly improved. SUPPORT DEVICE(S) IN EXPECTED LOCATIONS. Chest X-Ray 02/18/19 00:00 IMPRESSION: New left IJ line with the tip overlying the proximal SVC. Consider advancement 3-4 cm. KUB X-Ray 02/18/19 00:00 IMPRESSION: NG tube tip in the fundus of the stomach. IMPRESSION/RECOMMENDATION: 1. Acute on chronic respiratory failure. This is multifactorial secondary to the causes listed below. Continue ventilator support and supplemental oxygen. 2. Acute on chronic systolic heart failure. Patient with LV ejection fraction of 25%. Agree with continuing aggressive diuresis with Lasix. And continue the patient's Entresto and beta-rip. Continue the patient on milrinone. She is at 0.2 mcg/kg/min. If his systolic blood pressure remains high consider starting IV nitroglycerin. 3. Acute exacerbation COPD: Continue bronchodilators and ventilatory support. 4. MRSA pneumonia: Continue antibiotics. 5. 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 Hence would recommend discontinue the patient's amiodarone which has been done. Continue steroids. 6. Acute on chronic kidney disease: Watch renal function as we implement aggressive diuresis. At present patient has chronic kidney disease stage III with a GFR of 43 mL per per minute. 7. Cardiomyopathy with severely reduced LV ejection fraction. Continue milrinone. 8. Paroxysmal atrial fibrillation: Continue beta-rip and Eliquis. 9. History of ventricular tachycardia, The patient has an AICD placed. If there is recurrence of ventricular tachycardia or major ventricular ectopic activity then would start the patient on small dose of sotalol. Would avoid amiodarone. 10. Hypertension: Blood pressure well controlled, on current medications. 11. Coronary artery disease: History of MA and history of coronary bypass graft surgery. No evidence of acute coronary syndrome/non-ST ST elevation MA this admission. 12. Obstructive sleep apnea. Note patient is noncompliant with CPAP. Most likely has significant pulmonary hypertension. 13. AICD placement: Note the patient's basal rate is around 60 bpm. If the patient's heart failure continues then would recommend increasing the basal heart rate to 80 bpm to help combat the heart failure along with diuretics. 14. MRSA bacteremia: Continue antibiotics. Repeat blood cultures are positive again for MRSA. With the lead insertion site showing fibrinous changes, and with the repeat culture showing MRSA there is high suspicion for infection of the AICD leads. Hence collar folder operator is strongly recommending that the patient be transferred to [facility] and for explantation of the AICD system. Interrogation of the AICD shows that it is functioning normally. The lead impedance of the atrial, right and ventricular left ventricular leads are acceptable. Medications reviewed. Medical regimen and management plan discussed with collar folder operator. Medical decision making is of moderate complexity 40 minutes spent on this patient more than 50% of time spent in direct patient care. Will follow.
[2019-02-18] MEDS ORDERED: PEG 3350/NA SULF,BICARB,CL/KCL 4000 ML NG ONE (17:33)
[2019-02-18] MEDS ORDERED: INSULIN LISPRO 100 UNIT/ML 3 ML VIAL SUBCUT ONE (19:15)
[2019-02-18] MEDS ORDERED: PEG 3350/NA SULF,BICARB,CL/KCL 4000 ML ONE (20:00)
[2019-02-18 20:33] LABS: HEMATOCRIT 31.8 % (36.0-47.0); HEMOGLOBIN 9.9 g/dL (12.0-15.5); MEAN CORPUSCULAR HEMOGLOBIN 28.1 pg (27.0-33.4); MEAN CORPUSCULAR HGB CONC 31.1 g/dL (32.0-36.0); MEAN CORPUSCULAR VOLUME 90 fl (80-97); PLATELET COUNT 188 10^3/uL (150-450); RED BLOOD COUNT 3.53 10^6/uL (3.72-5.28); RED CELL DISTRIBUTION WIDTH 18.8 % (11.5-14.0); WHITE BLOOD COUNT 12.6 10^3/uL (4.0-10.5)
[2019-02-18 20:54] LABS: ANION GAP 8 (5-19); BLOOD UREA NITROGEN 62 mg/dL (7-20); CALCIUM 9.1 mg/dL (8.4-10.2); CARBON DIOXIDE 32 mmol/L (22-30); CHLORIDE 109 mmol/L (98-107); GLUCOSE 223 mg/dL (75-110); POTASSIUM 4.1 mmol/L (3.6-5.0)
[2019-02-18] MEDS: METHYLPREDNISOLONE INJ 40 MG/1 ML SDV IV SCH (21:29)
[2019-02-19] MEDS ORDERED: INSULIN LISPRO 100 UNIT/ML 3 ML VIAL SUBCUT SCH
[2019-02-19] MEDS: WATER FOR INJECTION,STERILE 1,000 ML with SODIUM CHLORIDE 38.5 MEQ IV PRN ×2 (00:26)
[2019-02-19 03:28] LABS: ARTERIAL BLOOD BASE EXCESS 1.2 mmol/L; ARTERIAL BLOOD H2CO3 1.44 mmol/L (1.05-1.35); ARTERIAL BLOOD O2 SATURATION 94.3 % (94-98); ARTERIAL BLOOD PH 7.37 (7.35-7.45); ARTERIAL BLOOD PO2 73.7 mmHg (80-100); ARTERIAL BLOOD TOTAL CO2 28.5 mmol/L (21-25); HEMATOCRIT 32.2 % (36.0-47.0); MEAN CORPUSCULAR VOLUME 90 fl (80-97); PLATELET COUNT 195 10^3/uL (150-450); RED BLOOD COUNT 3.56 10^6/uL (3.72-5.28); RED CELL DISTRIBUTION WIDTH 19.6 % (11.5-14.0); WHITE BLOOD COUNT 11.8 10^3/uL (4.0-10.5)
[2019-02-19 03:31] LABS: ARTERIAL BLOOD FIO2 50%
[2019-02-19 03:52] LABS: ALBUMIN 3.3 g/dL (3.5-5.0); ALKALINE PHOSPHATASE 186 U/L (38-126); ANION GAP 7 (5-19); ASPARTATE AMINO TRANSFERASE 297 U/L (14-36); BILIRUBIN,DIRECT 2.2 mg/dL (0.0-0.4); BILIRUBIN,TOTAL 2.9 mg/dL (0.2-1.3); BLOOD UREA NITROGEN 58 mg/dL (7-20); CALCIUM 8.8 mg/dL (8.4-10.2); CARBON DIOXIDE 33 mmol/L (22-30); CHLORIDE 111 mmol/L (98-107); GLUCOSE 207 mg/dL (75-110); PHOSPHORUS 4.9 mg/dL (2.5-4.5); POTASSIUM 4.3 mmol/L (3.6-5.0); TOTAL PROTEIN 5.9 g/dL (6.3-8.2)
[2019-02-19 03:57] LABS: ABSOLUTE LYMPHOCYTES# (MANUAL) 0.2 10^3/uL (0.5-4.7); ABSOLUTE MONOCYTES # (MANUAL) 0.2 10^3/uL (0.1-1.4); BASOPHILS % (MANUAL) 0 % (0-2); EOSINOPHILS % (MANUAL) 0 % (0-6); LYMPHOCYTES % (MANUAL) 2 % (13-45); MONOCYTES % (MANUAL) 2 % (3-13); SEGMENTED NEUTROPHILS % (MAN) 96 % (42-78); TOTAL CELLS COUNTED 100
[2019-02-19 03:59] LABS: ANISOCYTOSIS 2+; OVALOCYTES 2+; PLATELET COMMENT ADEQUATE; POIKILOCYTOSIS 2+; TEAR DROP CELLS 1+; TOXIC GRANULATION 1+
[2019-02-19] MEDS: FENTANYL CITRATE/PF 600 MCG/60 ML BAG IV PRN (04:34)
[2019-02-19] MEDS: INSULIN LISPRO 100 UNIT/ML 3 ML VIAL SUBCUT SCH ×4 (05:41→23:50)
[2019-02-19] MEDS: VANCOMYCIN HCL 1,000 MG in DEXTROSE 5%-WATER 250 ML IV SCH ×2 (05:42→17:44)
[2019-02-19] MEDS: MILRINONE LACTATE/D5W 20 MG/100 ML RTUINJ IV PRN ×2 (05:54→16:25)
--- NOTE | 2019-02-19 08:22 | RADIOLOGY REPORT (SQ) ---
EXAM DESCRIPTION: CHEST SINGLE VIEW COMPLETED DATE/TIME: 02/19/2019 6:26 am REASON FOR STUDY: ARDS COMPARISON: CT chest 02/10/2019 Chest films 02/12/2019, 02/16/2019, 02/17/2019, 02/18/2019 EXAM PARAMETERS: NUMBER OF VIEWS: One view. TECHNIQUE: Single frontal radiographic view of the chest acquired. RADIATION DOSE: NA LIMITATIONS: None. FINDINGS: LUNGS AND PLEURA: Persistent bilateral alveolar and interstitial infiltrates are present i n the mid and lower lungs, improved compared to 02/12/2019, similar compared to 02/18/2019. No gross pleural effusion or pneumothorax. MEDIASTINUM AND HILAR STRUCTURES: No masses. Contour normal. HEART AND VASCULAR STRUCTURES: Stable marked cardiomegaly BONES: No acute findings. HARDWARE: Endotracheal tube tip 6 cm above the bruna. Nasogastric tube tip and side port in the sto mach. Left jugular central line tip superior vena cava. Unchanged left-sided pacemaker/ defibrillat or. OTHER: No other significant finding. IMPRESSION: Tubes and lines in good positioning. Stable marked cardiomegaly and mild residual alveolar and interstitial infiltrates TECHNICAL DOCUMENTATION: JOB ID: [id number]- All Rights Reserved Reading location - IP/workstation name: [email or web address]
[2019-02-19] MEDS: METOPROLOL TARTRATE 50 MG TABLET NG SCH (09:57)
[2019-02-19] MEDS: INSULIN GLARGINE,HUM.REC.ANLOG 1,000 UNIT/10 ML VIAL SUBCUT SCH ×2 (09:57→21:21)
[2019-02-19] MEDS: METHYLPREDNISOLONE INJ 40 MG/1 ML SDV IV SCH ×2 (09:57→21:21)
[2019-02-19] MEDS: BUSPIRONE HCL 10 MG TABLET NG SCH ×2 (09:58→20:59)
[2019-02-19] MEDS: AMINO AC/PROTEIN HYDR/WHEY PRO 11 GM/45 ML PKT NG SCH ×4 (09:58→20:59)
[2019-02-19] MEDS: SACUBITRIL/VALSARTAN 97 MG/103 MG TABLET NG SCH (09:58)
[2019-02-19] MEDS: FAMOTIDINE 20 MG TABLET PO SCH (09:58)
--- NOTE | 2019-02-19 10:17 | PDOC PROGRESS REPORT ---
Subjective Progress Note for:: 02/19/19 Subjective:: Patient is intubated, sedated, arousable, appears to be disoriented Reason For Visit: COPD EXACERBATION,CHF EXACERBATION,RESPIRATORY Physical Exam Vital Signs: Temp Pulse Resp BP Pulse Ox 99.3 F 77 19 133/71 H 98 02/19/19 06:00 02/19/19 08:00 02/19/19 06:00 02/18/19 18:00 02/19/19 08:47 Intake & Output 02/18/19 02/19/19 02/20/19 06:59 06:59 06:59 Intake Total 1950 1172 Output Total 2625 3455 225 Balance -675 -2283 -225 Weight 112.8 kg 115.1 kg General appearance: PRESENT: no acute distress Respiratory exam: PRESENT: clear to auscultation renu Cardiovascular exam: PRESENT: RRR GI/Abdominal exam: PRESENT: normal bowel sounds, soft, other - Obese, not distended, not tender Results Laboratory Results: 02/19/19 02:55 02/19/19 02:55 02/18/19 02/18/19 02/18/19 12:50 13:03 14:50 WBC 12.1 H RBC 3.20 L Hgb 9.1 L Hct 29.0 L MCV 91 MCH 28.6 MCHC 31.6 L RDW 18.4 H Plt Count 161 Seg Neutrophils % Carbonic Acid 1.52 H HCO3/H2CO3 Ratio 18:1 ABG pH 7.37 ABG pCO2 50.5 H ABG pO2 72.9 L ABG HCO3 28.3 H ABG O2 Saturation 94.0 ABG Base Excess 2.3 FiO2 50% Sodium 148.7 H Potassium 3.8 Chloride 110 H Carbon Dioxide 31 H Anion Gap 8 BUN 63 H Creatinine 1.56 H Est GFR ( Amer) 43 L Glucose 188 H Lactic Acid Calcium 8.9 Phosphorus Magnesium Total Bilirubin AST Alkaline Phosphatase Ammonia Total Protein Albumin 02/18/19 02/18/19 02/19/19 20:15 20:15 02:55 WBC 12.6 H RBC 3.53 L Hgb 9.9 L Hct 31.8 L MCV 90 MCH 28.1 MCHC 31.1 L RDW 18.8 H Plt Count 188 Seg Neutrophils % Carbonic Acid 1.44 H HCO3/H2CO3 Ratio 18:1 ABG pH 7.37 ABG pCO2 48.0 H ABG pO2 73.7 L ABG HCO3 27.0 H ABG O2 Saturation 94.3 ABG Base Excess 1.2 FiO2 50% Sodium 149.4 H Potassium 4.1 Chloride 109 H Carbon Dioxide 32 H Anion Gap 8 BUN 62 H Creatinine 1.66 H Est GFR ( Amer) 40 L Glucose 223 H Lactic Acid Calcium 9.1 Phosphorus Magnesium Total Bilirubin AST Alkaline Phosphatase Ammonia Total Protein Albumin 02/19/19 02/19/19 02/19/19 02:55 02:55 02:55 WBC 11.8 H RBC 3.56 L Hgb 10.0 L Hct 32.2 L MCV 90 MCH 28.0 MCHC 31.0 L RDW 19.6 H Plt Count 195 Seg Neutrophils % Not Reportable Carbonic Acid HCO3/H2CO3 Ratio ABG pH ABG pCO2 ABG pO2 ABG HCO3 ABG O2 Saturation ABG Base Excess FiO2 Sodium 151.0 H Potassium 4.3 Chloride 111 H Carbon Dioxide 33 H Anion Gap 7 BUN 58 H Creatinine 1.59 H Est GFR ( Amer) 42 L Glucose 207 H Lactic Acid Calcium 8.8 Phosphorus 4.9 H Magnesium 2.6 H Total Bilirubin 2.9 H AST 297 H Alkaline Phosphatase 186 H Ammonia 9.3 Total Protein 5.9 L Albumin 3.3 L 02/19/19 02:55 WBC RBC Hgb Hct MCV MCH MCHC RDW Plt Count Seg Neutrophils % Carbonic Acid HCO3/H2CO3 Ratio ABG pH ABG pCO2 ABG pO2 ABG HCO3 ABG O2 Saturation ABG Base Excess FiO2 Sodium Potassium Chloride Carbon Dioxide Anion Gap BUN Creatinine Est GFR ( Amer) Glucose Lactic Acid 2.8 H Calcium Phosphorus Magnesium Total Bilirubin AST Alkaline Phosphatase Ammonia Total Protein Albumin 02/14/19 11:07 Blood Blood Culture (PCR) - Final Staphylococcus Aureus 02/14/19 11:07 Blood Blood Culture - Final Mrsa (Meth Resis Staph Aureus) 02/14/19 11:42 Blood Blood Culture (PCR) - Final Staphylococcus Aureus 02/14/19 11:42 Blood Blood Culture - Final Mrsa (Meth Resis Staph Aureus) 02/16/19 10:07 Blood Blood Culture (PCR) - Final Staphylococcus Aureus 02/16/19 09:57 Blood Blood Culture (PCR) - Final Staphylococcus Aureus 02/08/19 02/08/19 02/08/19 04:06 04:06 05:30 Creatine Kinase Cancelled 33 CK-MB (CK-2) Cancelled Troponin I Cancelled NT-Pro-B Natriuret Pep Cancelled 02/08/19 02/11/19 02/13/19 05:45 03:18 01:22 Creatine Kinase CK-MB (CK-2) < 0.22 Troponin I 0.043 NT-Pro-B Natriuret Pep 7610 H 1970 H 17412 H Impressions: Chest CT 02/10/19 00:00 IMPRESSION: No pneumothorax. No pleural effusions. Bibasilar consolidation in both lower lobes. Slightly increased interstitial thickening, basilar predominance. Scattered pulmonary cysts and ground-glass opacities are again noted. Tubes and lines in expected positions. KUB X-Ray 02/18/19 00:00 IMPRESSION: NG tube tip in the fundus of the stomach. Chest X-Ray 02/19/19 06:00 IMPRESSION: Tubes and lines in good positioning. Stable marked cardiomegaly and mild residual alveolar and interstitial infiltrates Assessment & Plan - Diagnosis (1) Gastrointestinal bleeding, lower Is this a current diagnosis for this admission?: Yes (2) ARDS (adult respiratory distress syndrome) Is this a current diagnosis for this admission?: Yes (3) Atrial fibrillation Qualifiers: Atrial fibrillation type: longstanding persistent Qualified Code(s): I48.11 - Longstanding persistent atrial fibrillation Is this a current diagnosis for this admission?: Yes - Time Time Spent with patient: 15-24 minutes - Plan Summary Plan Summary: Assessment: 48-year-old obese female with a history atrial fibrillation Pacemaker vegetations Status post administration of IV heparin and followed by melanotic stools Heparin infusion stopped at this point Status post EGD done on February 18, 2019 and negative for uppercase distal bleeding Patient is still presented with melanotic stools, despite administration of 1 gallon of GoLYTELY Patient H&H stable today (.2, respectively) Plan: Give 1 more gallon of GoLYTELY per NG tube Keep patient intubated until tomorrow Plan colonoscopy with biopsy tomorrow Procedure is benefits complication would be discussed with the family; however I believe that a procedure is necessary at this point to make a diagnosis of the cause of the lower gastrointestinal bleeding
[2019-02-19] MEDS ORDERED: PANTOPRAZOLE SODIUM 40 MG VIAL IV ONE (10:20)
--- NOTE | 2019-02-19 11:10 | PDOC CRITICAL CARE PROG REPORT ---
General Date:: 02/19/19 - Critical Care Attending Progress Note Resuscitation Status: Full Code Medical Power of Chief Wharfinger: Daughter, Aparna Events in the past 12 to 24 Hours:: Pt remains intubated. No acute overnight events. Reason for ICU Addmission:: Respiratory failure Physical Exam Vital Signs: Temp Pulse Resp BP Pulse Ox 99.1 F 77 18 133/71 H 98 02/19/19 10:00 02/19/19 08:00 02/19/19 10:00 02/18/19 18:00 02/19/19 10:00 Intake & Output 02/18/19 02/19/19 02/20/19 06:59 06:59 06:59 Intake Total 1950 1172 Output Total 1663 3455 425 Balance -675 -2283 -425 Weight 112.8 kg 115.1 kg Weight/Height Weight 115.1 kg Height 5 ft 4 in General appearance: PRESENT: no acute distress, other - obese, intubated, easily arousable Head exam: PRESENT: atraumatic, normocephalic Respiratory exam: PRESENT: other - coarse breathsounds throughout Cardiovascular exam: PRESENT: RRR GI/Abdominal exam: PRESENT: soft, other - non-tender, non-distended Gentrourinary exam: PRESENT: indwelling catheter Extremities exam: PRESENT: +2 edema Laboratory/Radiographs Laboratory Results: 02/19/19 02:55 02/19/19 02:55 02/18/19 02/18/19 02/18/19 12:50 13:03 14:50 WBC 12.1 H RBC 3.20 L Hgb 9.1 L Hct 29.0 L MCV 91 MCH 28.6 MCHC 31.6 L RDW 18.4 H Plt Count 161 Seg Neutrophils % Carbonic Acid 1.52 H HCO3/H2CO3 Ratio 18:1 ABG pH 7.37 ABG pCO2 50.5 H ABG pO2 72.9 L ABG HCO3 28.3 H ABG O2 Saturation 94.0 ABG Base Excess 2.3 FiO2 50% Sodium 148.7 H Potassium 3.8 Chloride 110 H Carbon Dioxide 31 H Anion Gap 8 BUN 63 H Creatinine 1.56 H Est GFR ( Amer) 43 L Glucose 188 H Lactic Acid Calcium 8.9 Phosphorus Magnesium Total Bilirubin AST Alkaline Phosphatase Ammonia Total Protein Albumin 02/18/19 02/18/19 02/19/19 20:15 20:15 02:55 WBC 12.6 H RBC 3.53 L Hgb 9.9 L Hct 31.8 L MCV 90 MCH 28.1 MCHC 31.1 L RDW 18.8 H Plt Count 188 Seg Neutrophils % Carbonic Acid 1.44 H HCO3/H2CO3 Ratio 18:1 ABG pH 7.37 ABG pCO2 48.0 H ABG pO2 73.7 L ABG HCO3 27.0 H ABG O2 Saturation 94.3 ABG Base Excess 1.2 FiO2 50% Sodium 149.4 H Potassium 4.1 Chloride 109 H Carbon Dioxide 32 H Anion Gap 8 BUN 62 H Creatinine 1.66 H Est GFR ( Amer) 40 L Glucose 223 H Lactic Acid Calcium 9.1 Phosphorus Magnesium Total Bilirubin AST Alkaline Phosphatase Ammonia Total Protein Albumin 02/19/19 02/19/19 02/19/19 02:55 02:55 02:55 WBC 11.8 H RBC 3.56 L Hgb 10.0 L Hct 32.2 L MCV 90 MCH 28.0 MCHC 31.0 L RDW 19.6 H Plt Count 195 Seg Neutrophils % Not Reportable Carbonic Acid HCO3/H2CO3 Ratio ABG pH ABG pCO2 ABG pO2 ABG HCO3 ABG O2 Saturation ABG Base Excess FiO2 Sodium 151.0 H Potassium 4.3 Chloride 111 H Carbon Dioxide 33 H Anion Gap 7 BUN 58 H Creatinine 1.59 H Est GFR ( Amer) 42 L Glucose 207 H Lactic Acid Calcium 8.8 Phosphorus 4.9 H Magnesium 2.6 H Total Bilirubin 2.9 H AST 297 H Alkaline Phosphatase 186 H Ammonia 9.3 Total Protein 5.9 L Albumin 3.3 L 02/19/19 02:55 WBC RBC Hgb Hct MCV MCH MCHC RDW Plt Count Seg Neutrophils % Carbonic Acid HCO3/H2CO3 Ratio ABG pH ABG pCO2 ABG pO2 ABG HCO3 ABG O2 Saturation ABG Base Excess FiO2 Sodium Potassium Chloride Carbon Dioxide Anion Gap BUN Creatinine Est GFR ( Amer) Glucose Lactic Acid 2.8 H Calcium Phosphorus Magnesium Total Bilirubin AST Alkaline Phosphatase Ammonia Total Protein Albumin 02/16/19 10:07 Blood Blood Culture (PCR) - Final Staphylococcus Aureus 02/16/19 09:57 Blood Blood Culture (PCR) - Final Staphylococcus Aureus 02/14/19 11:07 Blood Blood Culture (PCR) - Final Staphylococcus Aureus 02/14/19 11:07 Blood Blood Culture - Final Mrsa (Meth Resis Staph Aureus) 02/14/19 11:42 Blood Blood Culture (PCR) - Final Staphylococcus Aureus 02/14/19 11:42 Blood Blood Culture - Final Mrsa (Meth Resis Staph Aureus) 02/08/19 02/08/19 02/08/19 04:06 04:06 05:30 Creatine Kinase Cancelled 33 CK-MB (CK-2) Cancelled Troponin I Cancelled NT-Pro-B Natriuret Pep Cancelled 02/08/19 02/11/19 02/13/19 05:45 03:18 01:22 Creatine Kinase CK-MB (CK-2) < 0.22 Troponin I 0.043 NT-Pro-B Natriuret Pep 7610 H 1970 H 93170 H Impressions: Chest CT 02/10/19 00:00 IMPRESSION: No pneumothorax. No pleural effusions. Bibasilar consolidation in both lower lobes. Slightly increased interstitial thickening, basilar predominance. Scattered pulmonary cysts and ground-glass opacities are again noted. Tubes and lines in expected positions. KUB X-Ray 02/18/19 00:00 IMPRESSION: NG tube tip in the fundus of the stomach. Chest X-Ray 02/19/19 06:00 IMPRESSION: Tubes and lines in good positioning. Stable marked cardiomegaly and mild residual alveolar and interstitial infiltrates Assessment and Plan - Diagnosis (1) Acute on chronic systolic (congestive) heart failure Is this a current diagnosis for this admission?: Yes (2) ARDS (adult respiratory distress syndrome) Is this a current diagnosis for this admission?: Yes (3) Acute respiratory failure with hypoxia Is this a current diagnosis for this admission?: Yes (4) Ischemic cardiomyopathy with implantable cardioverter-defibrillator (ICD) Is this a current diagnosis for this admission?: Yes (5) MRSA (methicillin resistant staphylococcus aureus) pneumonia Qualifiers: Laterality: bilateral Lung location: unspecified part of lung Qualified Code(s): J15.212 - Pneumonia due to Methicillin resistant Staphylococcus aureus Is this a current diagnosis for this admission?: Yes (6) Acute kidney injury Is this a current diagnosis for this admission?: Yes (7) Acute lung injury associated with vaping Is this a current diagnosis for this admission?: Yes (8) Atrial fibrillation Qualifiers: Atrial fibrillation type: longstanding persistent Qualified Code(s): I48.11 - Longstanding persistent atrial fibrillation Is this a current diagnosis for this admission?: Yes (9) Amiodarone toxicity Qualifiers: Encounter type: initial encounter Injury intent: accidental or unintentional Qualified Code(s): T46.2X1A - Poisoning by other antidysrhythmic drugs, accidental (unintentional), initial encounter Is this a current diagnosis for this admission?: Yes Plan Summary: Assessment: Critically ill 48 yo woman with acute respiratory failure, MRSA PNA, Vaping associated lung injury, ARDS, acute on chronic systolic CHF, cardiomyopathy, PAF, infected AICD leads, amiodarone pulmonary lung toxicity, COPD, severe sepsis Plan: 1. Respiratory: acute respirtory failure. Continue vent support until after pt has colonoscopy tmw 2. Pulmonary: MRSA PNA, ARDS, vaping associated lung injury, amiodarone lung toxicity. ATBX, steroids, bronchodilators. 3. CV: acute on chronic systolic CHF, cardiomyopathy. EF 25%, PAF, AICD with infected leads. Lopressor, milrinone, entresto per Cardiology 4. ID: severe sepsis, MRSA PNA. Infected AICD leads. On vanc per ID 5. Renal/Electrolytes: BENNY, resolving. Cr has decreased to 1.59. Hypernatremia, start 1/2 NS IVF 6. GI: GI bleed. EGD on 02/18 showed gastritis. For colonoscopy in am 7. Nutritioin:NPO pending colonoscopy in am 8. Access: new central line placed 02/18. 9. Endocrine: on steroids. Accuchecks, SSI 10. Prophylaxis: scds. No pharmacologic DVT prophylaxis due to GI bleed Critical care time= 40 min, excluding procedures Critical Time Critical Time (minutes): 40 Level of Care: ICU -: 1. The care of a critical patient is a dynamic process. This note is a livestock sales representative synopsis but static in nature. The timeframe for treatments given in order is not necessarily the actual time these treatments may have been done. 2. This patient requires critical care secondary to ongoing requirements for therapy not offered or safe outside the critical care environment. Transfer to a lower level of care will result in altered life or limb morbidity and mortality. 3. Multidisciplinary rounds completed. 4. ABCDE bundle addressed.
[2019-02-19] MEDS ORDERED: FENTANYL CITRATE/PF 600 MCG/60 ML BAG IV PRN (12:15)
[2019-02-19] MEDS: 1/2 NORMAL SALINE 1,000 ML IV PRN (16:23)
[2019-02-19] MEDS ORDERED: PEG 3350/NA SULF,BICARB,CL/KCL 4000 ML NG ONE (18:00)
--- NOTE | 2019-02-19 18:42 | Progress Note ---
Provider Note Provider Note: CARDIOLOGY PROGRESS NOTE by Dr. Griselda Martin on 02/20/2020. SUBJECTIVE: The patient remains the same she is intubated on the ventilator. There is no atrial or ventricular arrhythmias seen. There is no firing of her AICD. PHYSICAL EXAMINATION: The patient is morbidly obese. In no acute distress. Selected Entries 02/19/19 02/19/19 08:00 10:00 Temperature 99.1 F Heart Rate ( 78 Monitors) Respiratory 16 Rate O2 Sat by Pulse 100 Oximetry Fraction of 50 Inspired Oxygen (FIO2) Arterial Blood 149 Pressure- Systolic Aterial Blood 79 Pressure- Diastolic Arterial Blood 104 Pressure- Mean HEAD: Is atraumatic normocephalic. EYES: Pupils are equal round regular reactive to light. HEENT is negative. SKIN: There is no skin rashes or skin lesions. There is no particular ecchymosis. NECK: Is supple. There is mild JVD present. Carotids are equal there is no bruits. There is no lymphadenopathy. There is no goiter. There is no accessory muscle respiration use. Trachea central. LUNGS: Shows bibasilar rales of CHF. There is a dry crackles scattered, and wheezing throughout the lung. There is also dry crackles in the right lower lobe. There is diminished air entry. On percussion there is hyperresonance. On palpation there is no chest wall tenderness. HEART: S1-S2 is heard. There is no S3 gallop. There is no S4 gallop. There is systolic murmur mitral regurgitation tricuspid regurgitation present. There is no aortic stenosis murmur. There is no aortic insufficiency murmur. There is no rub. ABDOMEN: Is obese. Nontender. There is no hepatosplenomegaly. Bowel sounds are well heard. There is no rebound guarding or rigidity. EXTREMITIES: Femorals are deep. Femorals are diminished. There is no femoral bruits. There is decreased leg pulses. There is mild pedal edema. There is no DVT or cellulitis. There is no calf tenderness. CODING EDUCATOR and psychiatric examination not performed due to patient being on the ventilator, and on sedation. Labs and x-ray and radiology imaging where reviewed. IMPRESSION/RECOMMENDATION: 1. Acute on chronic respiratory failure. This is multifactorial secondary to the causes listed below. Continue ventilator support and supplemental oxygen. 2. Acute on chronic systolic heart failure. Patient with LV ejection fraction of 25%. Agree with continuing aggressive diuresis with Lasix. And continue the patient's Entresto and beta-rip. Continue the patient on milrinone. If his systolic blood pressure remains high consider starting IV nitroglycerin. 3. Acute exacerbation COPD: Continue bronchodilators and ventilatory support. 4. MRSA pneumonia: Continue antibiotics. 5. 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 Hence would recommend discontinue the patient's amiodarone which has been done. Continue steroids. 6. Acute on chronic kidney disease: Watch renal function as we implement aggressive diuresis. 7. Cardiomyopathy with severely reduced LV ejection fraction. Continue milrinone. 8. Paroxysmal atrial fibrillation: Continue beta-rip and Eliquis. 9. History of ventricular tachycardia, The patient has an AICD placed. If there is recurrence of ventricular tachycardia or major ventricular ectopic activity then would start the patient on small dose of sotalol. Would avoid amiodarone. 10. Hypertension: Blood pressure well controlled, on current medications. 11. Coronary artery disease: History of CO and history of coronary bypass graft surgery. No evidence of acute coronary syndrome/non-ST ST elevation CO this admission. 12. Obstructive sleep apnea. Note patient is noncompliant with CPAP. Most likely has significant pulmonary hypertension. 13. AICD placement: Note the patient's basal rate is around 60 bpm. If the patient's heart failure continues then would recommend increasing the basal heart rate to 80 bpm to help combat the heart failure along with diuretics. 14. Morbid obesity. Medications reviewed. Medical regimen and management plan discussed with mid level net developer. Medical decision making at present is of high complexity. 40 minutes spent on this patient more than 50% of time spent direct patient care. Will follow.
[2019-02-20 04:09] LABS: ARTERIAL BLOOD BASE EXCESS 4.9 mmol/L; ARTERIAL BLOOD H2CO3 1.48 mmol/L (1.05-1.35); ARTERIAL BLOOD HCO3 30.4 mmol/L (20-24); ARTERIAL BLOOD O2 SATURATION 96.8 % (94-98); ARTERIAL BLOOD PCO2 49.1 mmHg (35-45); ARTERIAL BLOOD PH 7.41 (7.35-7.45); ARTERIAL BLOOD PO2 89.1 mmHg (80-100); ARTERIAL BLOOD TOTAL CO2 31.9 mmol/L (21-25)
[2019-02-20 04:10] LABS: ARTERIAL BLOOD FIO2 45%
[2019-02-20 04:13] LABS: HEMATOCRIT 29.4 % (36.0-47.0); HEMOGLOBIN 9.3 g/dL (12.0-15.5); MEAN CORPUSCULAR HEMOGLOBIN 28.1 pg (27.0-33.4); MEAN CORPUSCULAR HGB CONC 31.6 g/dL (32.0-36.0); MEAN CORPUSCULAR VOLUME 89 fl (80-97); PLATELET COUNT 172 10^3/uL (150-450); RED BLOOD COUNT 3.31 10^6/uL (3.72-5.28); RED CELL DISTRIBUTION WIDTH 18.5 % (11.5-14.0); WHITE BLOOD COUNT 12.6 10^3/uL (4.0-10.5)
[2019-02-20 04:22] LABS: ALKALINE PHOSPHATASE 229 U/L (38-126); ANION GAP 5 (5-19); ASPARTATE AMINO TRANSFERASE 133 U/L (14-36); BILIRUBIN,TOTAL 2.9 mg/dL (0.2-1.3); BLOOD UREA NITROGEN 45 mg/dL (7-20); CALCIUM 8.7 mg/dL (8.4-10.2); CARBON DIOXIDE 34 mmol/L (22-30); CHLORIDE 110 mmol/L (98-107); GLUCOSE 197 mg/dL (75-110); POTASSIUM 3.7 mmol/L (3.6-5.0); TOTAL PROTEIN 5.6 g/dL (6.3-8.2)
[2019-02-20 04:47] LABS: ABSOLUTE LYMPHOCYTES# (MANUAL) 0.3 10^3/uL (0.5-4.7); ABSOLUTE MONOCYTES # (MANUAL) 0.1 10^3/uL (0.1-1.4); BASOPHILS % (MANUAL) 0 % (0-2); EOSINOPHILS % (MANUAL) 0 % (0-6); LYMPHOCYTES % (MANUAL) 2 % (13-45); MONOCYTES % (MANUAL) 1 % (3-13); SEGMENTED NEUTROPHILS % (MAN) 97 % (42-78); TOTAL CELLS COUNTED 100
[2019-02-20 04:48] LABS: ANISOCYTOSIS 1+; OVALOCYTES SLIGHT; PLATELET COMMENT ADEQUATE; POIKILOCYTOSIS SLIGHT; POLYCHROMASIA SLIGHT; SCHISTOCYTES SLIGHT; TOXIC GRANULATION SLIGHT
[2019-02-20] MEDS: INSULIN LISPRO 100 UNIT/ML 3 ML VIAL SUBCUT SCH ×3 (05:14→17:42)
[2019-02-20] MEDS: VANCOMYCIN HCL 1,000 MG in DEXTROSE 5%-WATER 250 ML IV SCH ×2 (05:15→19:00)
[2019-02-20] MEDS: MILRINONE LACTATE/D5W 20 MG/100 ML RTUINJ IV PRN ×2 (05:46→19:55)
[2019-02-20] MEDS ORDERED: DIPHENHYDRAMINE HCL 50 MG/ML VIAL ONE (07:12)
[2019-02-20] MEDS ORDERED: ONDANSETRON HCL INJ/PF 4 MG/2 ML SDV ONE (07:12)
[2019-02-20] MEDS ORDERED: GLUCAGON,HUMAN RECOMB 1 MG INJ ONE (07:13)
[2019-02-20] MEDS ORDERED: NALOXONE HCL INJ/PF 0.4 MG/1 ML SDV ONE (07:13)
[2019-02-20] MEDS ORDERED: FLUMAZENIL INJ 0.5 MG/5 ML VIAL ONE (07:13)
[2019-02-20] MEDS ORDERED: EPINEPHRINE INJ 1 MG/10 ML DISP.SYRIN ONE (07:13)
--- NOTE | 2019-02-20 08:14 | RADIOLOGY REPORT (SQ) ---
EXAM DESCRIPTION: CHEST SINGLE VIEW COMPLETED DATE/TIME: 02/20/2019 6:05 am REASON FOR STUDY: respiratory failure; f/u infiltrate COMPARISON: None. NUMBER OF VIEWS: One view. TECHNIQUE: Single frontal radiographic image of the chest acquired. LIMITATIONS: None. FINDINGS: LUNGS AND PLEURA: Stable appearance. MEDIASTINUM AND HILAR STRUCTURES: Stable heart size and mediastinal structures. HEART AND VASCULAR STRUCTURES: Stable appearance. SUPPORT DEVICES: Appropriate location without change. BONES: No acute findings. OTHER: No other significant finding. IMPRESSION: STABLE APPEARANCE OF THE CHEST. SUPPORT DEVICES UNCHANGED. TECHNICAL DOCUMENTATION: JOB ID: [id number] [employer]- All Rights Reserved Reading location - IP/workstation name: [email or web address]
[2019-02-20] MEDS: MIDAZOLAM 2 MG/2 ML INJ ONE ×3 (08:52→09:12)
[2019-02-20] MEDS: FENTANYL CITRATE INJ/PF 100 MCG/2 ML AMPUL ONE ×2 (08:52→09:12)
--- NOTE | 2019-02-20 09:45 | Operative Report ---
Operative Report DATE OF SURGERY: 02/20/19 PREOPERATIVE DIAGNOSIS: Gastrointestinal bleeding of unknown origin POSTOPERATIVE DIAGNOSIS: Gastrointestinal bleeding of unknown origin. Negative EGD. Colonoscopy to cecum OPERATION: Colonoscopy to cecum. IV sedation provided by Dr. Russ SURGEON: RUFINO RUSS 1ST FIRST COOK: None ANESTHESIA: Moderate Sedation - Provided by Dr. Russ 4 mg IV push Versed 75 mcg IV push Fentanyl TISSUE REMOVED OR ALTERED: Not applicable COMPLICATIONS: None ESTIMATED BLOOD LOSS: Not applicable INTRAOPERATIVE FINDINGS: Negative colonoscopy to cecum PROCEDURE: The colonoscopy was performed in the ICU, the patient was placed in the lateral decubitus, and IV sedation was provided by Dr. Russ as described above. The scope was inserted into the rectum and the several segments of the colon up to the cecum. The preparation was good: no masses, polyps, strictures, mucosal changes, and diverticula were noted. At the level of the rectum, the scope was retroflexed and no lesions were identified and no hemorrhoids seen. The scope was then slowly withdrawn for a duration of approximately 7 minutes from the colon and extracted from the rectum. The patient tolerated procedure well and transferred to the recovery room in satisfactory conditions.
--- NOTE | 2019-02-20 09:51 | PDOC PROGRESS REPORT ---
Subjective Progress Note for:: 02/20/19 Subjective:: Patient intubated and sedated Reason For Visit: COPD EXACERBATION,CHF EXACERBATION,RESPIRATORY Physical Exam Vital Signs: Temp Pulse Resp BP Pulse Ox 98.8 F 77 36 H 146/75 H 100 02/20/19 08:00 02/20/19 08:00 02/20/19 08:00 02/20/19 08:00 02/20/19 08:00 Intake & Output 02/19/19 02/20/19 02/21/19 06:59 06:59 06:59 Intake Total 1172 915 Output Total 3455 5000 200 Balance -2283 -4085 -200 Weight 115.1 kg 113.3 kg General appearance: PRESENT: no acute distress, other - Presence of endotracheal tube Respiratory exam: PRESENT: clear to auscultation renu Cardiovascular exam: PRESENT: RRR GI/Abdominal exam: PRESENT: soft Results Laboratory Results: 02/20/19 03:55 02/20/19 03:55 02/20/19 02/20/19 02/20/19 03:55 03:55 03:55 WBC 12.6 H RBC 3.31 L Hgb 9.3 L Hct 29.4 L MCV 89 MCH 28.1 MCHC 31.6 L RDW 18.5 H Plt Count 172 Seg Neutrophils % Not Reportable Carbonic Acid 1.48 H HCO3/H2CO3 Ratio 20:1 ABG pH 7.41 ABG pCO2 49.1 H ABG pO2 89.1 ABG HCO3 30.4 H ABG O2 Saturation 96.8 ABG Base Excess 4.9 FiO2 45% Sodium Potassium Chloride Carbon Dioxide Anion Gap BUN Creatinine Est GFR ( Amer) Glucose Lactic Acid 1.3 Calcium Total Bilirubin AST Alkaline Phosphatase Total Protein Albumin 02/20/19 03:55 WBC RBC Hgb Hct MCV MCH MCHC RDW Plt Count Seg Neutrophils % Carbonic Acid HCO3/H2CO3 Ratio ABG pH ABG pCO2 ABG pO2 ABG HCO3 ABG O2 Saturation ABG Base Excess FiO2 Sodium 149.3 H Potassium 3.7 Chloride 110 H Carbon Dioxide 34 H Anion Gap 5 BUN 45 H Creatinine 1.47 H Est GFR ( Amer) 46 L Glucose 197 H Lactic Acid Calcium 8.7 Total Bilirubin 2.9 H AST 133 H Alkaline Phosphatase 229 H Total Protein 5.6 L Albumin 3.0 L 02/16/19 09:57 Blood Blood Culture (PCR) - Final Staphylococcus Aureus 02/16/19 09:57 Blood Blood Culture - Final Mrsa (Meth Resis Staph Aureus) 02/16/19 10:07 Blood Blood Culture (PCR) - Final Staphylococcus Aureus 02/16/19 10:07 Blood Blood Culture - Final Mrsa (Meth Resis Staph Aureus) 02/08/19 02/08/19 02/08/19 04:06 04:06 05:30 Creatine Kinase Cancelled 33 CK-MB (CK-2) Cancelled Troponin I Cancelled NT-Pro-B Natriuret Pep Cancelled 02/08/19 02/11/19 02/13/19 05:45 03:18 01:22 Creatine Kinase CK-MB (CK-2) < 0.22 Troponin I 0.043 NT-Pro-B Natriuret Pep 7610 H 1970 H 80143 H Impressions: Chest CT 02/10/19 00:00 IMPRESSION: No pneumothorax. No pleural effusions. Bibasilar consolidation in both lower lobes. Slightly increased interstitial thickening, basilar predominance. Scattered pulmonary cysts and ground-glass opacities are again noted. Tubes and lines in expected positions. KUB X-Ray 02/18/19 00:00 IMPRESSION: NG tube tip in the fundus of the stomach. Chest X-Ray 02/20/19 00:00 IMPRESSION: STABLE APPEARANCE OF THE CHEST. SUPPORT DEVICES UNCHANGED. Assessment & Plan - Diagnosis (1) Gastrointestinal bleeding, lower Is this a current diagnosis for this admission?: Yes (2) ARDS (adult respiratory distress syndrome) Is this a current diagnosis for this admission?: Yes (3) Atrial fibrillation Qualifiers: Atrial fibrillation type: longstanding persistent Qualified Code(s): I48.11 - Longstanding persistent atrial fibrillation Is this a current diagnosis for this admission?: Yes - Time Time Spent with patient: 15-24 minutes - Plan Summary Plan Summary: Assessment: Gastrointestinal bleeding of unknown origin Status post EGD negative for obvious cause of bleeding Colonoscopy done today February 20, 2018, demonstrates no lesions as cause of her gastrointestinal bleeding No other acute general surgery issues identified Plan: No plan for additional interventions on this patient Patient diet can be advanced once she is extubated Remove rectal tube. I will sign off. Please call us back with questions.
[2019-02-20] MEDS ORDERED: METHYLPREDNISOLONE INJ 40 MG/1 ML SDV IV SCH (10:00)
[2019-02-20] MEDS: AMINO AC/PROTEIN HYDR/WHEY PRO 11 GM/45 ML PKT NG SCH ×4 (10:23→22:11)
[2019-02-20] MEDS: METOPROLOL TARTRATE 50 MG TABLET NG SCH ×2 (10:23→22:11)
[2019-02-20] MEDS: SACUBITRIL/VALSARTAN 97 MG/103 MG TABLET NG SCH (10:23)
[2019-02-20] MEDS: BUSPIRONE HCL 10 MG TABLET NG SCH ×2 (10:23→22:03)
[2019-02-20] MEDS: INSULIN GLARGINE,HUM.REC.ANLOG 1,000 UNIT/10 ML VIAL SUBCUT SCH ×2 (10:52→22:06)
--- NOTE | 2019-02-20 10:57 | PDOC CRITICAL CARE PROG REPORT ---
General Date:: 02/20/19 - Critical Care Attending Progress Note Resuscitation Status: Full Code Medical Power of Railroad D[employer] Car Steward/Stewardess: Daughter, Aparna Events in the past 12 to 24 Hours:: Pt remains intubated and on milrinone. Had colonscopy today. It was negative. Reason for ICU Addmission:: Respiratory failure Physical Exam Vital Signs: Temp Pulse Resp BP Pulse Ox 98.4 F 75 18 108/58 L 97 02/20/19 10:00 02/20/19 10:00 02/20/19 10:08 02/20/19 10:00 02/20/19 10:08 Intake & Output 02/19/19 02/20/19 02/21/19 06:59 06:59 06:59 Intake Total 1172 915 Output Total 5825 3239 365 Balance -2283 -4085 -365 Weight 115.1 kg 113.3 kg Weight/Height Weight 113.3 kg Height 5 ft 4 in General appearance: PRESENT: no acute distress, well-developed, well-nourished, other - intubated Head exam: PRESENT: atraumatic, normocephalic Respiratory exam: PRESENT: unlabored, other - coarse breath sounds Cardiovascular exam: PRESENT: RRR GI/Abdominal exam: PRESENT: soft, other - non-tender, non-distended Gentrourinary exam: PRESENT: indwelling catheter Extremities exam: PRESENT: +2 edema Neurological exam: PRESENT: alert, awake Laboratory/Radiographs Laboratory Results: 02/20/19 03:55 02/20/19 03:55 02/20/19 02/20/19 02/20/19 03:55 03:55 03:55 WBC 12.6 H RBC 3.31 L Hgb 9.3 L Hct 29.4 L MCV 89 MCH 28.1 MCHC 31.6 L RDW 18.5 H Plt Count 172 Seg Neutrophils % Not Reportable Carbonic Acid 1.48 H HCO3/H2CO3 Ratio 20:1 ABG pH 7.41 ABG pCO2 49.1 H ABG pO2 89.1 ABG HCO3 30.4 H ABG O2 Saturation 96.8 ABG Base Excess 4.9 FiO2 45% Sodium Potassium Chloride Carbon Dioxide Anion Gap BUN Creatinine Est GFR ( Amer) Glucose Lactic Acid 1.3 Calcium Total Bilirubin AST Alkaline Phosphatase Total Protein Albumin 02/20/19 03:55 WBC RBC Hgb Hct MCV MCH MCHC RDW Plt Count Seg Neutrophils % Carbonic Acid HCO3/H2CO3 Ratio ABG pH ABG pCO2 ABG pO2 ABG HCO3 ABG O2 Saturation ABG Base Excess FiO2 Sodium 149.3 H Potassium 3.7 Chloride 110 H Carbon Dioxide 34 H Anion Gap 5 BUN 45 H Creatinine 1.47 H Est GFR ( Amer) 46 L Glucose 197 H Lactic Acid Calcium 8.7 Total Bilirubin 2.9 H AST 133 H Alkaline Phosphatase 229 H Total Protein 5.6 L Albumin 3.0 L 02/16/19 09:57 Blood Blood Culture (PCR) - Final Staphylococcus Aureus 02/16/19 09:57 Blood Blood Culture - Final Mrsa (Meth Resis Staph Aureus) 02/16/19 10:07 Blood Blood Culture (PCR) - Final Staphylococcus Aureus 02/16/19 10:07 Blood Blood Culture - Final Mrsa (Meth Resis Staph Aureus) 02/08/19 02/08/19 02/08/19 04:06 04:06 05:30 Creatine Kinase Cancelled 33 CK-MB (CK-2) Cancelled Troponin I Cancelled NT-Pro-B Natriuret Pep Cancelled 02/08/19 02/11/19 02/13/19 05:45 03:18 01:22 Creatine Kinase CK-MB (CK-2) < 0.22 Troponin I 0.043 NT-Pro-B Natriuret Pep 7610 H 1970 H 50660 H Impressions: Chest CT 02/10/19 00:00 IMPRESSION: No pneumothorax. No pleural effusions. Bibasilar consolidation in both lower lobes. Slightly increased interstitial thickening, basilar predominance. Scattered pulmonary cysts and ground-glass opacities are again noted. Tubes and lines in expected positions. KUB X-Ray 02/18/19 00:00 IMPRESSION: NG tube tip in the fundus of the stomach. Chest X-Ray 02/20/19 00:00 IMPRESSION: STABLE APPEARANCE OF THE CHEST. SUPPORT DEVICES UNCHANGED. Assessment and Plan - Diagnosis (1) Acute on chronic systolic (congestive) heart failure Is this a current diagnosis for this admission?: Yes (2) ARDS (adult respiratory distress syndrome) Is this a current diagnosis for this admission?: Yes (3) Acute respiratory failure with hypoxia Is this a current diagnosis for this admission?: Yes (4) Ischemic cardiomyopathy with implantable cardioverter-defibrillator (ICD) Is this a current diagnosis for this admission?: Yes (5) MRSA (methicillin resistant staphylococcus aureus) pneumonia Qualifiers: Laterality: bilateral Lung location: unspecified part of lung Qualified Code(s): J15.212 - Pneumonia due to Methicillin resistant Staphylococcus aureus Is this a current diagnosis for this admission?: Yes (6) Acute kidney injury Is this a current diagnosis for this admission?: Yes (7) Acute lung injury associated with vaping Is this a current diagnosis for this admission?: Yes (8) Atrial fibrillation Qualifiers: Atrial fibrillation type: longstanding persistent Qualified Code(s): I48.11 - Longstanding persistent atrial fibrillation Is this a current diagnosis for this admission?: Yes (9) Amiodarone toxicity Qualifiers: Encounter type: initial encounter Injury intent: accidental or unintentional Qualified Code(s): T46.2X1A - Poisoning by other antidysrhythmic drugs, accidental (unintentional), initial encounter Is this a current diagnosis for this admission?: Yes Plan Summary: Assessment: Critically ill 48 yo woman with acute respiratory failure, MRSA PNA, Vaping associated lung injury, ARDS, acute on chronic systolic CHF, cardio myopathy, PAF, infected AICD leads, amiodarone pulmonary lung toxicity, COPD, severe sepsis Plan: 1. Respiratory: acute respirtory failure. Pt did well on her SBT. Will extubate. 2. Pulmonary: MRSA PNA, ARDS-resolved, vaping associated lung injury, amiodarone lung toxicity. ATBX, steroids, bronchodilators. 3. CV: acute on chronic systolic CHF, cardiomyopathy. EF 25%, PAF, AICD with infected leads. Lopressor, milrinone, entresto per Cardiology 4. ID: severe sepsis, MRSA PNA. Infected AICD leads. On vanc per ID 5. Renal/Electrolytes: BENNY, resolving. Cr has decreased to 1.47. Hypernatremia, start 1/2 NS IVF 6. GI: GI bleed. EGD on 02/18 showed gastritis. Colonoscopy today, negative 7. Nutritioin:NPO pending extubation 8. Access: new central line placed 02/18. Will need PICC for long-term ATBX 9. Endocrine: weaning steroids. Accuchecks, SSI 10. Prophylaxis: scds. Will restart pharmacologic DVT prophylaxis Critical care time= 35 min, excluding procedures Critical Time Critical Time (minutes): 35 Level of Care: ICU -: 1. The care of a critical patient is a dynamic process. This note is a repre sentative synopsis but static in nature. The timeframe for treatments given in order is not necessarily the actual time these treatments may have been done. 2. This patient requires critical care secondary to ongoing requirements for therapy not offered or safe outside the critical care environment. Transfer to a lower level of care will result in altered life or limb morbidity and mortality. 3. Multidisciplinary rounds completed. 4. ABCDE bundle addressed.
[2019-02-20 11:38] LABS: INTERNATIONAL RATION (INR) 1.03; PROTHROMBIN TIME 13.5 SEC (11.4-15.4)
[2019-02-20 11:39] LABS: PARTIAL THROMBOPLASTIN TIME 22.3 SEC (23.5-35.8)
[2019-02-20] MEDS: 1/2 NORMAL SALINE 1,000 ML IV PRN (11:55)
[2019-02-20] MEDS: HEPARIN SODIUM,PORCINE/D5W 25,000 UNIT/250 ML RTUINJ IV PRN (12:58)
[2019-02-20] MEDS ORDERED: HEPARIN SOD (PORCINE) 1,000 UNIT/ML 10 ML VIAL IV PRN (14:04)
[2019-02-20] MEDS: IPRATROPIUM/ALBUTEROL 0.5-2.5 MG/3 ML AMPUL NEB PRN (16:52)
[2019-02-20] MEDS: FUROSEMIDE INJ/PF 40 MG/4 ML SDV IV SCH (17:42)
[2019-02-20 18:25] LABS: VANCOMYCIN,TROUGH 19.4 ug/mL (5.0-20.0)
--- NOTE | 2019-02-20 18:42 | Progress Note ---
Provider Note Provider Note: CARDIOLOGY PROGRESS NOTE by Dr. Griselda Martin on 02/20/2019. OBJECTIVE: The patient has been extubated extubated. She is off the ventilator and her saturations are acceptable. She denies any chest pain or discomfort. She is slightly drowsy. There is no recurrence of atrial fibrillation or ventricular arrhythmias. There is no firing of the AICD. The patient's blood pressure is slightly high. Will increase beta-blockers at 50 mg p.o. every 12 hours. We will also add Nitropaste. To see if this can help in weaning the patient off the milrinone. PHYSICAL EXAMINATION: The patient is morbidly obese. In no acute distress. Selected Entries 02/20/19 02/20/19 02/20/19 14:31 14:46 14:47 Temperature 99.0 F Heart Rate ( 79 Monitors) Respiratory 19 Rate Blood Pressure 165/84 H Blood Pressure 111 Mean O2 Sat by Pulse 95 96 Oximetry FiO2 is 30% HEAD: Is atraumatic normocephalic. EYES: Pupils are equal round regular reactive to light. HEENT is negative. SKIN: There is no skin rashes or skin lesions. There is no particular ecchymosis. NECK: Is supple. There is mild JVD present. Carotids are equal there is no bruits. There is no lymphadenopathy. There is no goiter. There is no accessory muscle respiration use. Trachea central. LUNGS: Shows bibasilar rales of CHF. There are no rhonchi or wheezing. There is also dry crackles in the right lower lobe. There is diminished air entry. On percussion there is hyperresonance. On palpation there is no chest wall tenderness. HEART: S1-S2 is heard. There is no S3 gallop. There is no S4 gallop. There is systolic murmur mitral regurgitation tricuspid regurgitation present. There is no aortic stenosis murmur. There is no aortic insufficiency murmur. There is no rub. ABDOMEN: Is obese. Nontender. There is no hepatosplenomegaly. Bowel sounds are well heard. There is no rebound guarding or rigidity. EXTREMITIES: Femorals are deep. Femorals are diminished. There is no femoral bruits. There is decreased leg pulses. There is mild pedal edema. There is no DVT or cellulitis. There is no calf tenderness. PERFORMANCE INSTRUCTOR: The patient is awake. She is slightly drowsy. She responds appropriately to verbal requests. Moves all 4 extremities. PSYCHIATRIC: The patient does not appear to be agitated or anxious. Labs- All tests 24 hr 02/19/19 02/20/19 02/20/19 23:45 03:55 03:55 WBC RBC Hgb Hct MCV MCH MCHC RDW Plt Count Lymph % (Auto) Bulloch % (Auto) Eos % (Auto) Baso % (Auto) Absolute Neuts (auto) Absolute Lymphs (auto) Absolute Monos (auto) Absolute Eos (auto) Absolute Basos (auto) Total Counted Seg Neutrophils % Seg Neuts % (Manual) Lymphocytes % (Manual) Monocytes % (Manual) Eosinophils % (Manual) Basophils % (Manual) Abs Neuts (Manual) Abs Lymphs (Manual) Abs Monocytes (Manual) Absolute Eos (Manual) Abs Basophils (Manual) Toxic Granulation Platelet Comment Polychromasia Poikilocytosis Anisocytosis Ovalocytes Schistocytes PT INR APTT Carbonic Acid 1.48 H HCO3/H2CO3 Ratio 20:1 ABG pH 7.41 ABG pCO2 49.1 H ABG pO2 89.1 ABG HCO3 30.4 H ABG Total CO2 31.9 H ABG O2 Saturation 96.8 ABG Base Excess 4.9 FiO2 45% Sodium Potassium Chloride Carbon Dioxide Anion Gap BUN Creatinine Est GFR ( Amer) Est GFR (MDRD) Non-Af Glucose POC Glucose 168 H Lactic Acid 1.3 Calcium Total Bilirubin Direct Bilirubin Neonat Total Bilirubin Neonat Direct Bilirubin Neonat Indirect Bili AST ALT Alkaline Phosphatase Total Protein Albumin Time Trough Drawn Vancomycin Trough 02/20/19 02/20/19 02/20/19 03:55 03:55 05:10 WBC 12.6 H RBC 3.31 L Hgb 9.3 L Hct 29.4 L MCV 89 MCH 28.1 MCHC 31.6 L RDW 18.5 H Plt Count 172 Lymph % (Auto) Not Reportable Bull[place] % (Auto) Not Reportable Eos % (Auto) Not Reportable Baso % (Auto) Not Reportable Absolute Neuts (auto) Not Reportable Absolute Lymphs (auto) Not Reportable Absolute Monos (auto) Not Reportable Absolute Eos (auto) Not Reportable Absolute Basos (auto) Not Reportable Total Counted 100 Seg Neutrophils % Not Reportable Seg Neuts % (Manual) 97 H Lymphocytes % (Manual) 2 L Monocytes % (Manual) 1 L Eosinophils % (Manual) 0 Basophils % (Manual) 0 Abs Neuts (Manual) 12.2 H Abs Lymphs (Manual) 0.3 L Abs Monocytes (Manual) 0.1 Absolute Eos (Manual) 0.0 Abs Basophils (Manual) 0.0 Toxic Granulation SLIGHT Platelet Comment ADEQUATE Polychromasia SLIGHT Poikilocytosis SLIGHT Anisocytosis 1+ Ovalocytes SLIGHT Schistocytes SLIGHT PT INR APTT Carbonic Acid HCO3/H2CO3 Ratio ABG pH ABG pCO2 ABG pO2 ABG HCO3 ABG Total CO2 ABG O2 Saturation ABG Base Excess FiO2 Sodium 149.3 H Potassium 3.7 Chloride 110 H Carbon Dioxide 34 H Anion Gap 5 BUN 45 H Creatinine 1.47 H Est GFR ( Amer) 46 L Est GFR (MDRD) Non-Af 38 L Glucose 197 H POC Glucose 196 H Lactic Acid Calcium 8.7 Total Bilirubin 2.9 H Direct Bilirubin 2.0 H Neonat Total Bilirubin Not Reportable Neonat Direct Bilirubin Not Reportable Neonat Indirect Bili Not Reportable AST 133 H ALT 269 Alkaline Phosphatase 229 H Total Protein 5.6 L Albumin 3.0 L Time Trough Drawn Vancomycin Trough 02/20/19 02/20/19 02/20/19 11:01 11:20 15:45 WBC RBC Hgb Hct MCV MCH MCHC RDW Plt Count Lymph % (Auto) Bull[place] % (Auto) Eos % (Auto) Baso % (Auto) Absolute Neuts (auto) Absolute Lymphs (auto) Absolute Monos (auto) Absolute Eos (auto) Absolute Basos (auto) Total Counted Seg Neutrophils % Seg Neuts % (Manual) Lymphocytes % (Manual) Monocytes % (Manual) Eosinophils % (Manual) Basophils % (Manual) Abs Neuts (Manual) Abs Lymphs (Manual) Abs Monocytes (Manual) Absolute Eos (Manual) Abs Basophils (Manual) Toxic Granulation Platelet Comment Polychromasia Poikilocytosis Anisocytosis Ovalocytes Schistocytes PT 13.5 INR 1.03 APTT 22.3 L Carbonic Acid HCO3/H2CO3 Ratio ABG pH ABG pCO2 ABG pO2 ABG HCO3 ABG Total CO2 ABG O2 Saturation ABG Base Excess FiO2 Sodium Potassium Chloride Carbon Dioxide Anion Gap BUN Creatinine Est GFR ( Amer) Est GFR (MDRD) Non-Af Glucose POC Glucose 155 H Lactic Acid Calcium Total Bilirubin Direct Bilirubin Neonat Total Bilirubin Neonat Direct Bilirubin Neonat Indirect Bili AST ALT Alkaline Phosphatase Total Protein Albumin Time Trough Drawn 1545 Vancomycin Trough 19.4 02/20/19 02/20/19 02/20/19 17:22 19:29 21:47 WBC RBC Hgb Hct MCV MCH MCHC RDW Plt Count Lymph % (Auto) [place] % (Auto) Eos % (Auto) Baso % (Auto) Absolute Neuts (auto) Absolute Lymphs (auto) Absolute Monos (auto) Absolute Eos (auto) Absolute Basos (auto) Total Counted Seg Neutrophils % Seg Neuts % (Manual) Lymphocytes % (Manual) Monocytes % (Manual) Eosinophils % (Manual) Basophils % (Manual) Abs Neuts (Manual) Abs Lymphs (Manual) Abs Monocytes (Manual) Absolute Eos (Manual) Abs Basophils (Manual) Toxic Granulation Platelet Comment Polychromasia Poikilocytosis Anisocytosis Ovalocytes Schistocytes PT INR APTT 35.5 Carbonic Acid HCO3/H2CO3 Ratio ABG pH ABG pCO2 ABG pO2 ABG HCO3 ABG Total CO2 ABG O2 Saturation ABG Base Excess FiO2 Sodium Potassium Chloride Carbon Dioxide Anion Gap BUN Creatinine Est GFR ( Amer) Est GFR (MDRD) Non-Af Glucose POC Glucose 177 H 156 H Lactic Acid Calcium Total Bilirubin Direct Bilirubin Neonat Total Bilirubin Neonat Direct Bilirubin Neonat Indirect Bili AST ALT Alkaline Phosphatase Total Protein Albumin Time Trough Drawn Vancomycin Trough Chest X-Ray 02/08/19 00:00 IMPRESSION: Slight advancement of endotracheal tube. Otherwise no change. Chest X-Ray 02/08/19 00:00 IMPRESSION: NO PNEUMOTHORAX FOLLOWING CENTRAL LINE PLACEMENT. OTHERWISE NO CHANGE. Chest X-Ray 02/08/19 03:15 IMPRESSION: Cardiomegaly. Endotracheal and enteric tubes are in place. Postsurgical changes of the mediastinum. Airspace opacities right lung base. copyright 2010 [employer]- All Rights Reserved Chest CT 02/10/19 00:00 IMPRESSION: No pneumothorax. No pleural effusions. Bibasilar consolidation in both lower lobes. Slightly increased interstitial thickening, basilar predominance. Scattered pulmonary cysts and ground-glass opacities are again noted. Tubes and lines in expected positions. Chest X-Ray 02/12/19 00:00 IMPRESSION: 1. Bilateral perihilar airspace consolidation which may be due to edema, atelectasis or pneumonia. 2. Marked cardiomegaly. 3. Remote postsurgical changes of the mediastinum. 4. Life support lines and tubes as described above. Chest X-Ray 02/13/19 06:00 IMPRESSION: STABLE APPEARANCE OF THE CHEST. SUPPORT DEVICES UNCHANGED. Chest X-Ray 02/14/19 06:00 IMPRESSION: Mildly worsened bibasilar predominant opacities, likely edema although infection not excluded. Stable support lines and tubes as above. Chest X-Ray 02/15/19 03:06 IMPRESSION: Diffuse persistent but improving interstitial and alveolar opacities throughout both lungs. Stable cardiomegaly. Chest X-Ray 02/16/19 06:00 IMPRESSION: Unchanged radiographic appearance of the chest. KUB X-Ray 02/16/19 15:49 IMPRESSION: The tip and side hole of the enteric tube project within the gastric lumen. Chest X-Ray 02/17/19 06:00 IMPRESSION: Findings most consistent with congestive failure an asymmetric pulmonary edema. Slightly improved. SUPPORT DEVICE(S) IN EXPECTED LOCATIONS. Chest X-Ray 02/18/19 00:00 IMPRESSION: New left IJ line with the tip overlying the proximal SVC. Consider advancement 3-4 cm. KUB X-Ray 02/18/19 00:00 IMPRESSION: NG tube tip in the fundus of the stomach. Chest X-Ray 02/19/19 06:00 IMPRESSION: Tubes and lines in good positioning. Stable marked cardiomegaly and mild residual alveolar and interstitial infiltrates Chest X-Ray 02/20/19 00:00 IMPRESSION: STABLE APPEARANCE OF THE CHEST. SUPPORT DEVICES UNCHANGED. The patient's 24-hour intake is 915 mL. Total output is 5000 mL. IMPRESSION/RECOMMENDATION: 1. Acute on chronic respiratory failure. This is multifactorial secondary to the causes listed below. Continue ventilator support and supplemental oxygen. 2. Acute on chronic systolic heart failure. Patient with LV ejection fraction of 25%. Agree with continuing aggressive diuresis with Lasix. And continue the patient's Entresto and beta-rip. Continue the patient on milrinone. She is at 0.2 mcg/kg/min. If his systolic blood pressure remains high consider starting IV nitroglycerin. 3. Acute exacerbation COPD: Continue bronchodilators and ventilatory support. 4. MRSA pneumonia: Continue antibiotics. 5. 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 Hence would recommend discontinue the patient's amiodarone which has been done. Continue steroids. 6. Acute on chronic kidney disease: Watch renal function as we implement aggre ssive diuresis. At present patient has chronic kidney disease stage III with a GFR of 43 mL per per minute. 7. Cardiomyopathy with severely reduced LV ejection fraction. Continue milrinone. 8. Paroxysmal atrial fibrillation: Continue beta-rip and Eliquis. 9. History of ventricular tachycardia, The patient has an AICD placed. If there is recurrence of ventricular tachycardia or major ventricular ectopic activity then would start the patient on small dose of sotalol. Would avoid amiodarone. 10. Hypertension: Blood pressure well controlled, on current medications. 11. Coronary artery disease: History of HI and history of coronary bypass graft surgery. No evidence of acute coronary syndrome/non-ST ST elevation HI this admission. 12. Obstructive sleep apnea. Note patient is noncompliant with CPAP. Most likely has significant pulmonary hypertension. 13. AICD placement: Note the patient's basal rate is around 60 bpm. If the patient's heart failure continues then would recommend increasing the basal heart rate to 80 bpm to help combat the heart failure along with diuretics. 14. MRSA bacteremia: Continue antibiotics. Repeat blood cultures are positive again for MRSA. With the lead insertion site showing fibrinous changes, and with the repeat culture showing MRSA there is high suspicion for infection of the AICD leads. Hence workforce consultant is strongly recommending that the patient be transferred to [facility] for explantation of the AICD system. Interrogation of the AICD shows that it is functioning normally. The lead impedance of the atrial, right and ventricular left ventricular leads are acceptable. Medications reviewed. Medications adjusted. Medical regimen and management plan discussed with workforce consultant. Medical decision making is of high complexity. Note I have added Nitropaste and also increase the patient's beta-rip. To see if this will help with weaning the patient off milrinone. Medical decision making is of high complexity. 40 minutes spent on the patient with more than 50% spent on direct patient care. Will follow
[2019-02-20] MEDS: NITROGLYCERIN 2% OINTMENT 1 GM PACKET TP SCH (20:48)
[2019-02-20] MEDS ORDERED: DEXTROSE 5%-1/2 NORMAL SALINE 1,000 ML IV PRN (22:23)
[2019-02-21] MEDS: 1/2 NORMAL SALINE 1,000 ML IV PRN ×2 (00:02→19:46)
[2019-02-21] MEDS: INSULIN LISPRO 100 UNIT/ML 3 ML VIAL SUBCUT SCH ×5 (00:04→23:56)
[2019-02-21] MEDS: NITROGLYCERIN 2% OINTMENT 1 GM PACKET TP SCH ×5 (04:06→21:41)
[2019-02-21 04:09] LABS: ABSOLUTE LYMPHOCYTES (AUTO) 0.6 10^3/uL (0.5-4.7); ABSOLUTE MONOCYTES (AUTO) 0.4 10^3/uL (0.1-1.4); ABSOLUTE NEUT (AUTO) 9.9 10^3/uL (1.7-8.2); BASOPHILS % (AUTO) 0.2 % (0-2); HEMATOCRIT 27.6 % (36.0-47.0); HEMOGLOBIN 8.8 g/dL (12.0-15.5); LYMPHOCYTES % (AUTO) 5.7 % (13-45); MEAN CORPUSCULAR HGB CONC 31.7 g/dL (32.0-36.0); MEAN CORPUSCULAR VOLUME 88 fl (80-97); MONOCYTES % (AUTO) 3.7 % (3-13); PLATELET COUNT 144 10^3/uL (150-450); RED BLOOD COUNT 3.12 10^6/uL (3.72-5.28); RED CELL DISTRIBUTION WIDTH 18.6 % (11.5-14.0); SEGMENTED NEUTROPHILS % (AUTO) 90.4 % (42-78); TOTAL CELLS COUNTED % (AUTO) 100 %
[2019-02-21 04:30] LABS: BLOOD UREA NITROGEN 41 mg/dL (7-20); CALCIUM 8.8 mg/dL (8.4-10.2); CHLORIDE 109 mmol/L (98-107); GLUCOSE 108 mg/dL (75-110); POTASSIUM 3.3 mmol/L (3.6-5.0)
[2019-02-21 04:35] LABS: CARBON DIOXIDE 36 mmol/L (22-30)
[2019-02-21 04:39] LABS: ANION GAP 3 (5-19)
[2019-02-21] MEDS: VANCOMYCIN HCL 1,000 MG in DEXTROSE 5%-WATER 250 ML IV SCH ×2 (06:00→18:17)
[2019-02-21] MEDS: FUROSEMIDE INJ/PF 40 MG/4 ML SDV IV SCH ×2 (06:00→18:16)
[2019-02-21 06:22] LABS: PHOSPHORUS 2.9 mg/dL (2.5-4.5)
[2019-02-21] MEDS: HEPARIN SODIUM,PORCINE/D5W 25,000 UNIT/250 ML RTUINJ IV PRN (09:15)
[2019-02-21] MEDS: BUSPIRONE HCL 10 MG TABLET NG SCH ×2 (09:29→21:41)
[2019-02-21] MEDS: METOPROLOL TARTRATE 50 MG TABLET NG SCH ×2 (09:30→21:41)
[2019-02-21] MEDS: SACUBITRIL/VALSARTAN 97 MG/103 MG TABLET NG SCH (09:31)
[2019-02-21] MEDS: AMINO AC/PROTEIN HYDR/WHEY PRO 11 GM/45 ML PKT NG SCH ×4 (09:32→21:05)
--- NOTE | 2019-02-21 10:28 | PDOC CRITICAL CARE PROG REPORT ---
General Date:: 02/21/19 - Critical Care Attending Note Resuscitation Status: Full Code Medical Power of Senior Research Associate: Daughter, Aparna Events in the past 12 to 24 Hours:: Pt had colonoscopy yesterday and was extubated yesterday. Is off the milrinone infusion. Is awake and asking for something to drink. Reason for ICU Addmission:: Respiratory failure Physical Exam Vital Signs: Temp Pulse Resp BP Pulse Ox 98.8 F 69 13 159/89 H 97 02/21/19 07:57 02/21/19 07:57 02/21/19 07:57 02/21/19 07:57 02/21/19 09:01 Intake & Output 02/20/19 02/21/19 02/22/19 06:59 06:59 06:59 Intake Total 915 2172 53 Output Total 5000 2345 550 Balance -4085 -173 -497 Weight 113.3 kg 114.5 kg Weight/Height Weight 114.5 kg Height 5 ft 4 in General appearance: PRESENT: no acute distress, well-developed, well-nourished, other - awake Head exam: PRESENT: atraumatic, normocephalic Respiratory exam: PRESENT: rhonchi, unlabored Cardiovascular exam: PRESENT: RRR GI/Abdominal exam: PRESENT: soft, other - non-tender, non-distended Gentrourinary exam: PRESENT: indwelling catheter Extremities exam: PRESENT: +2 edema Neurological exam: PRESENT: awake Laboratory/Radiographs Laboratory Results: 02/21/19 04:00 02/21/19 04:00 02/21/19 02/21/19 02/21/19 04:00 04:00 04:00 WBC 11.0 H RBC 3.12 L Hgb 8.8 L Hct 27.6 L MCV 88 MCH 28.0 MCHC 31.7 L RDW 18.6 H Plt Count 144 L Seg Neutrophils % 90.4 H Sodium 148.1 H Potassium 3.3 L Chloride 109 H Carbon Dioxide 36 H Anion Gap 3 L BUN 41 H Creatinine 1.55 H Est GFR ( Amer) 43 L Glucose 108 Calcium 8.8 Phosphorus 2.9 Magnesium 2.4 H 02/18/19 08:30 Blood Blood Culture (PCR) - Final Staphylococcus Aureus 02/08/19 02/08/19 02/08/19 04:06 04:06 05:30 Creatine Kinase Cancelled 33 CK-MB (CK-2) Cancelled Troponin I Cancelled NT-Pro-B Natriuret Pep Cancelled 02/08/19 02/11/19 02/13/19 05:45 03:18 01:22 Creatine Kinase CK-MB (CK-2) < 0.22 Troponin I 0.043 NT-Pro-B Natriuret Pep 7610 H 1970 H 75787 H Impressions: Chest CT 02/10/19 00:00 IMPRESSION: No pneumothorax. No pleural effusions. Bibasilar consolidation in both lower lobes. Slightly increased interstitial thickening, basilar predomina nce. Scattered pulmonary cysts and ground-glass opacities are again noted. Tubes and lines in expected positions. KUB X-Ray 02/18/19 00:00 IMPRESSION: NG tube tip in the fundus of the stomach. Chest X-Ray 02/20/19 00:00 IMPRESSION: STABLE APPEARANCE OF THE CHEST. SUPPORT DEVICES UNCHANGED. Assessment and Plan - Diagnosis (1) Acute on chronic systolic (congestive) heart failure Is this a current diagnosis for this admission?: Yes (2) ARDS (adult respiratory distress syndrome) Is this a current diagnosis for this admission?: Yes (3) Acute respiratory failure with hypoxia Is this a current diagnosis for this admission?: Yes (4) Ischemic cardiomyopathy with implantable cardioverter-defibrillator (ICD) Is this a current diagnosis for this admission?: Yes (5) MRSA (methicillin resistant staphylococcus aureus) pneumonia Qualifiers: Laterality: bilateral Lung location: unspecified part of lung Qualified Code(s): J15.212 - Pneumonia due to Methicillin resistant Staphylococcus aureus Is this a current diagnosis for this admission?: Yes (6) Acute kidney injury Is this a current diagnosis for this admission?: Yes (7) Acute lung injury associated with vaping Is this a current diagnosis for this admission?: Yes (8) Atrial fibrillation Qualifiers: Atrial fibrillation type: longstanding persistent Qualified Code(s): I48.11 - Longstanding persistent atrial fibrillation Is this a current diagnosis for this admission?: Yes (9) Amiodarone toxicity Qualifiers: Encounter type: initial encounter Injury intent: accidental or unintention al Qualified Code(s): T46.2X1A - Poisoning by other antidysrhythmic drugs, accidental (unintentional), initial encounter Is this a current diagnosis for this admission?: Yes Plan Summary: Assessment: Critically ill 48 yo woman with acute respiratory failure, MRSA PNA, Vaping associated lung injury, ARDS, acute on chronic systolic CHF, cardiomyopathy, PAF, infected AICD leads, amiodarone pulmonary lung toxicity, COPD, severe sepsis, MRSA bacteremia. Plan: 1. Respiratory: acute respirtory failure, resolved. Pt extubated 02/20. Is stable on NC. Continue to wean to RA as tolerated. 2. Pulmonary: MRSA PNA, ARDS-resolved, vaping associated lung injury, amiodarone lung toxicity. ATBX,bronchodilators. Will d/c steroids 3. CV: acute on chronic systolic CHF, cardiomyopathy. EF 25%, PAF, AICD with infected leads. Lopressor increased last night. Started on NTG paste last night as well. On entresto. Off milrinone. Care per cardiology. Is also on lasix. h/o afib. Off amiodarone due to pulmonary toxicity. Heparin drip started yesterday 4. ID: severe sepsis, MRSA PNA. Infected AICD leads. MRSA bacteremia On vanc per ID. Blood cultures still positive with MRSA. 5. Renal/Electrolytes: BENNY, resolving. Cr has increased to 1.55 due to the lasix. Hypernatremia, continue 1/2 NS IVF 6. GI: GI bleed, resolved. EGD on 02/18 showed gastritis. Colonoscopy 02/20, negative. Heparin drip restarted yesterday for her afib. Will monitor closely for bleeding 7. Nutritioin:NPO pending swallow evaluation 8. Access: new central line placed 02/18. Will need PICC for long-term ATBX once blood cultures are negative. 9. Endocrine: d/c teroids. Accuchecks, SSI 10. Prophylaxis: scds. No pharmacologic DVT prophylaxis needed b/c pt is on heparin drip for afib. 11. Will consult PT/OT/ST Critical care time= 35 min, excluding procedures Critical Time Critical Time (minutes): 35 Level of Care: ICU -: 1. The care of a critical patient is a dynamic process. This note is a business services sales representative synopsis but static in nature. The timeframe for treatments given in order is not necessarily the actual time these treatments may have been done. 2. This patient requires critical care secondary to ongoing requirements for therapy not offered or safe outside the critical care environment. Transfer to a lower level of care will result in altered life or limb morbidity and mortality. 3. Multidisciplinary rounds completed. 4. ABCDE bundle addressed.
[2019-02-21 17:38] LABS: INTERNATIONAL RATION (INR) 1.05; PROTHROMBIN TIME 13.7 SEC (11.4-15.4)
[2019-02-21 17:39] LABS: PARTIAL THROMBOPLASTIN TIME 62.6 SEC (23.5-35.8)
--- NOTE | 2019-02-21 20:40 | Progress Note ---
Provider Note Provider Note: CARDIOLOGY PROGRESS NOTE by Dr. Griselda Martin on 02/21/2019. OBJECTIVE: The patient is much improved. Her shortness of breath is much improved. She is currently on nasal oxygen. She denies any chest pain or discomfort. There is no PND or orthopnea. There is no leg edema. There is no firing of her AICD. There is no recurrence of atrial fibrillation and no evidence of ventricular arrhythmias. The patient is on IV heparin. There is no TIA CVA symptoms. Yesterday her blood pressure dropped to 80 systolic and hence her Nitropaste has been discontinued. She is also off the IV milrinone. She is on the beta-rip at 50 mg p.o. every 12 hours of Toprol-XL, and also on Entresto at the maximum dose twice daily. In view of the occult positive stools the patient is on IV heparin. I think he should be safe to switch her back to Eliquis. PHYSICAL EXAMINATION: The patient is morbidly obese in no acute distress. Her voice is slightly hoarse secondary to the prolonged duration of intubation. Selected Entries 02/21/19 02/21/19 18:00 18:01 Temperature 101.1 F H Heart Rate ( 78 Monitors) Respiratory 18 Rate Blood Pressure 155/78 H Blood Pressure 103 Mean Oxygen Delivery Nasal Cannula Method ( includes room air) Oxygen Flow 4 Rate HEAD: Is atraumatic normocephalic. EYES: Pupils are equal round regular reactive to light. HEENT is negative. SKIN: There is no skin rashes or skin lesions. There is no particular ecchymosis. NECK: Is supple. There is mild JVD present. Carotids are equal there is no bruits. There is no lymphadenopathy. There is no goiter. There is no accessory muscle respiration use. Trachea central. LUNGS: Shows bibasilar rales of CHF. There are no rhonchi or wheezing. There is also dry crackles in the right lower lobe. There is diminished air entry. On percussion there is hyperresonance. On palpation there is no chest wall tenderness. HEART: S1-S2 is heard. There is no S3 gallop. There is no S4 gallop. There is systolic murmur mitral regurgitation tricuspid regurgitation present. There is no aortic stenosis murmur. There is no aortic insufficiency murmur. There is no rub. ABDOMEN: Is obese. Nontender. There is no hepatosplenomegaly. Bowel sounds are well heard. There is no rebound guarding or rigidity. EXTREMITIES: Femorals are deep. Femorals are diminished. There is no femoral bruits. There is decreased leg pulses. There is mild pedal edema. There is no DVT or cellulitis. There is no calf tenderness. MISSION COMMANDER: The patient is awake. She is slightly drowsy. She responds appropriately to verbal requests. Moves all 4 extremities. PSYCHIATRIC: The patient does not appear to be agitated or anxious. Labs- All tests 24 hr 02/20/19 02/21/19 02/21/19 21:47 00:01 04:00 WBC RBC Hgb Hct MCV MCH MCHC RDW Plt Count Lymph % (Auto) [place] % (Auto) Eos % (Auto) Baso % (Auto) Absolute Neuts (auto) Absolute Lymphs (auto) Absolute Monos (auto) Absolute Eos (auto) Absolute Basos (auto) Seg Neutrophils % PT INR APTT Sodium 148.1 H Potassium 3.3 L Chloride 109 H Carbon Dioxide 36 H Anion Gap 3 L BUN 41 H Creatinine 1.55 H Est GFR ( Amer) 43 L Est GFR (MDRD) Non-Af 36 L Glucose 108 POC Glucose 156 H 162 H Calcium 8.8 Phosphorus Magnesium 02/21/19 02/21/19 02/21/19 04:00 04:00 04:00 WBC 11.0 H RBC 3.12 L Hgb 8.8 L Hct 27.6 L MCV 88 MCH 28.0 MCHC 31.7 L RDW 18.6 H Plt Count 144 L Lymph % (Auto) 5.7 L [place] % (Auto) 3.7 Eos % (Auto) 0.0 Baso % (Auto) 0.2 Absolute Neuts (auto) 9.9 H Absolute Lymphs (auto) 0.6 Absolute Monos (auto) 0.4 Absolute Eos (auto) 0.0 Absolute Basos (auto) 0.0 Seg Neutrophils % 90.4 H PT INR APTT 132.0 H D Sodium Potassium Chloride Carbon Dioxide Anion Gap BUN Creatinine Est GFR ( Amer) Est GFR (MDRD) Non-Af Glucose POC Glucose Calcium Phosphorus 2.9 Magnesium 2.4 H 02/21/19 02/21/19 02/21/19 05:47 10:55 11:14 WBC RBC Hgb Hct MCV MCH MCHC RDW Plt Count Lymph % (Auto) [place] % (Auto) Eos % (Auto) Baso % (Auto) Absolute Neuts (auto) Absolute Lymphs (auto) Absolute Monos (auto) Absolute Eos (auto) Absolute Basos (auto) Seg Neutrophils % PT INR APTT Cancelled Sodium Potassium Chloride Carbon Dioxide Anion Gap BUN Creatinine Est GFR ( Amer) Est GFR (MDRD) Non-Af Glucose POC Glucose 112 H 110 Calcium Phosphorus Magnesium 02/21/19 02/21/19 02/21/19 12:14 17:05 17:35 WBC RBC Hgb Hct MCV MCH MCHC RDW Plt Count Lymph % (Auto) [place] % (Auto) Eos % (Auto) Baso % (Auto) Absolute Neuts (auto) Absolute Lymphs (auto) Absolute Monos (auto) Absolute Eos (auto) Absolute Basos (auto) Seg Neutrophils % PT 13.7 INR 1.05 APTT 52.4 H 62.6 H Sodium Potassium Chloride Carbon Dioxide Anion Gap BUN Creatinine Est GFR ( Amer) Est GFR (MDRD) Non-Af Glucose POC Glucose 89 Calcium Phosphorus Magnesium Chest X-Ray 02/08/19 00:00 IMPRESSION: Slight advancement of endotracheal tube. Otherwise no change. Chest X-Ray 02/08/19 00:00 IMPRESSION: NO PNEUMOTHORAX FOLLOWING CENTRAL LINE PLACEMENT. OTHERWISE NO CHANGE. Chest X-Ray 02/08/19 03:15 IMPRESSION: Cardiomegaly. Endotracheal and enteric tubes are in place. Postsurgical changes of the mediastinum. Airspace opacities right lung base. copyright 2010 [employer]- All Rights Reserved Chest CT 02/10/19 00:00 IMPRESSION: No pneumothorax. No pleural effusions. Bibasilar consolidation in both lower lobes. Slightly increased interstitial thickening, basilar predominance. Scattered pulmonary cysts and ground-glass opacities are again noted. Tubes and lines in expected positions. Chest X-Ray 02/12/19 00:00 IMPRESSION: 1. Bilateral perihilar airspace consolidation which may be due to edema, atelectasis or pneumonia. 2. Marked cardiomegaly. 3. Remote postsurgical changes of the mediastinum. 4. Life support lines and tubes as described above. Chest X-Ray 02/13/19 06:00 IMPRESSION: STABLE APPEARANCE OF THE CHEST. SUPPORT DEVICES UNCHANGED. Chest X-Ray 02/14/19 06:00 IMPRESSION: Mildly worsened bibasilar predominant opacities, likely edema although infection not excluded. Stable support lines and tubes as above. Chest X-Ray 02/15/19 03:06 IMPRESSION: Diffuse persistent but improving interstitial and alveolar opacities throughout both lungs. Stable cardiomegaly. Chest X-Ray 02/16/19 06:00 IMPRESSION: Unchanged radiographic appearance of the chest. KUB X-Ray 02/16/19 15:49 IMPRESSION: The tip and side hole of the enteric tube project within the gastric lumen. Chest X-Ray 02/17/19 06:00 IMPRESSION: Findings most consistent with congestive failure an asymmetric pulmonary edema. Slightly improved. SUPPORT DEVICE(S) IN EXPECTED LOCATIONS. Chest X-Ray 02/18/19 00:00 IMPRESSION: New left IJ line with the tip overlying the proximal SVC. Consider advancement 3-4 cm. KUB X-Ray 02/18/19 00:00 IMPRESSION: NG tube tip in the fundus of the stomach. Chest X-Ray 02/19/19 06:00 IMPRESSION: Tubes and lines in good positioning. Stable marked cardiomegaly and mild residual alveolar and interstitial infiltrates Chest X-Ray 02/20/19 00:00 IMPRESSION: STABLE APPEARANCE OF THE CHEST. SUPPORT DEVICES UNCHANGED. The patient's 24-hour intake is 2172 mL. The patient 24-hour output is 2345 mL. IMPRESSION/RECOMMENDATION: 1. Acute on chronic respiratory failure. This is multifactorial secondary to the causes listed below. Continue ventilator support and supplemental oxygen. 2. Acute on chronic systolic heart failure. Patient with LV ejection fraction of 25%. Agree with continuing aggressive diuresis with Lasix. And continue the patient's Entresto and beta-rip. Continue the patient on milrinone. She is at 0.2 mcg/kg/min. If his systolic blood pressure remains high consider starting IV nitroglycerin. 3. Acute exacerbation COPD: Continue bronchodilators and ventilatory support. 4. MRSA pneumonia: Continue antibiotics. 5. 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 Hence would recommend discontinue the patient's amiodarone which has been done. Continue steroids. 6. Acute on chronic kidney disease: Watch renal function as we implement agg ressive diuresis. At present patient has chronic kidney disease stage III with a GFR of 43 mL per per minute. 7. Cardiomyopathy with severely reduced LV ejection fraction. Continue milrinone. 8. Paroxysmal atrial fibrillation: Continue beta-rip and Eliquis. 9. History of ventricular tachycardia, The patient has an AICD placed. If there is recurrence of ventricular tachycardia or major ventricular ectopic activity then would start the patient on small dose of sotalol. Would avoid amiodarone. 10. Hypertension: Blood pressure well controlled, on current medications. 11. Coronary artery disease: History of DC and history of coronary bypass graft surgery. No evidence of acute coronary syndrome/non-ST ST elevation DC this admission. 12. Obstructive sleep apnea. Note patient is noncompliant with CPAP. Most likely has significant pulmonary hypertension. 13. AICD placement: Note the patient's basal rate is around 60 bpm. If the patient's heart failure continues then would recommend increasing the basal heart rate to 80 bpm to help combat the heart failure along with diuretics. 14. MRSA bacteremia: Continue antibiotics. Repeat blood cultures are positive again for MRSA. With the lead insertion site showing fibrinous changes, and with the repeat culture showing MRSA there is high suspicion for infection of the AICD leads. Hence fur feeder is strongly recommending that the patient be transferred to [facility] for explantation of the AICD system. Interrogation of the AICD shows that it is functioning normally. The lead impedance of the atrial, right and ventricular left ventricular leads are acceptable. Medications reviewed. Management and medical regimen discussed with the fur feeder. Medical decision making is of moderate complexity. 40 minutes spent on this patient with more than 50% time spent in direct patient care. Will follow.
[2019-02-22] MEDS: HEPARIN SODIUM,PORCINE/D5W 25,000 UNIT/250 ML RTUINJ IV PRN (03:01)
[2019-02-22 04:39] LABS: ABSOLUTE LYMPHOCYTES (AUTO) 0.8 10^3/uL (0.5-4.7); ABSOLUTE MONOCYTES (AUTO) 0.4 10^3/uL (0.1-1.4); ABSOLUTE NEUT (AUTO) 9.4 10^3/uL (1.7-8.2); BASOPHILS % (AUTO) 0.2 % (0-2); EOSINOPHILS % (AUTO) 0.1 % (0-6); HEMATOCRIT 23.9 % (36.0-47.0); LYMPHOCYTES % (AUTO) 7.3 % (13-45); MEAN CORPUSCULAR HEMOGLOBIN 28.5 pg (27.0-33.4); MEAN CORPUSCULAR HGB CONC 32.3 g/dL (32.0-36.0); MEAN CORPUSCULAR VOLUME 88 fl (80-97); MONOCYTES % (AUTO) 4.1 % (3-13); PLATELET COUNT 135 10^3/uL (150-450); RED BLOOD COUNT 2.72 10^6/uL (3.72-5.28); RED CELL DISTRIBUTION WIDTH 18.6 % (11.5-14.0); SEGMENTED NEUTROPHILS % (AUTO) 88.3 % (42-78); TOTAL CELLS COUNTED % (AUTO) 100 %; WHITE BLOOD COUNT 10.7 10^3/uL (4.0-10.5)
[2019-02-22 04:41] LABS: HEMOGLOBIN 7.7 g/dL (12.0-15.5)
[2019-02-22 04:54] LABS: BLOOD UREA NITROGEN 34 mg/dL (7-20); CALCIUM 8.4 mg/dL (8.4-10.2); CARBON DIOXIDE 37 mmol/L (22-30); CHLORIDE 106 mmol/L (98-107); GLUCOSE 122 mg/dL (75-110); POTASSIUM 3.1 mmol/L (3.6-5.0)
[2019-02-22] MEDS: INSULIN LISPRO 100 UNIT/ML 3 ML VIAL SUBCUT SCH ×3 (05:06→18:42)
[2019-02-22 05:07] LABS: ANION GAP 3 (5-19)
[2019-02-22] MEDS: VANCOMYCIN HCL 1,000 MG in DEXTROSE 5%-WATER 250 ML IV SCH ×2 (05:13→18:07)
[2019-02-22] MEDS: NITROGLYCERIN 2% OINTMENT 1 GM PACKET TP SCH ×3 (05:13→21:57)
[2019-02-22] MEDS: FUROSEMIDE INJ/PF 40 MG/4 ML SDV IV SCH (05:20)
[2019-02-22] MEDS: BUSPIRONE HCL 10 MG TABLET NG SCH ×2 (09:57→22:00)
[2019-02-22] MEDS: ACETAMINOPHEN 325 MG TABLET PO PRN ×3 (09:58→18:38)
[2019-02-22] MEDS: METOPROLOL TARTRATE 50 MG TABLET NG SCH ×2 (09:58→21:58)
[2019-02-22] MEDS: SACUBITRIL/VALSARTAN 97 MG/103 MG TABLET NG SCH (10:01)
[2019-02-22] MEDS: AMINO AC/PROTEIN HYDR/WHEY PRO 11 GM/45 ML PKT NG SCH ×4 (10:11→21:58)
[2019-02-22] MEDS: POTASSI CL 20 MEQ/50 ML RIDER 20 MEQ/50 ML RTUPB IV SCH ×2 (10:12→11:11)
--- NOTE | 2019-02-22 13:59 | PDOC CRITICAL CARE PROG REPORT ---
General Date:: 02/22/19 - Critical Care Progress Note Resuscitation Status: Full Code Medical Power of Vp Design: Daughter, Aparna Events in the past 12 to 24 Hours:: Pt was febrile overnight and this am. Reason for ICU Addmission:: Respiratory failure Physical Exam Vital Signs: Temp Pulse Resp BP Pulse Ox 99.5 F 63 22 H 113/77 98 02/22/19 12:00 02/22/19 12:00 02/22/19 12:00 02/22/19 12:00 02/22/19 12:00 Intake & Output 02/21/19 02/22/19 02/23/19 06:59 06:59 06:59 Intake Total 2172 1790 381 Output Total 2345 2850 890 Balance -173 -1060 -509 Weight 114.5 kg 114.3 kg Weight/Height Weight 114.3 kg Height 5 ft 4 in General appearance: PRESENT: no acute distress, well-developed, well-nourished Head exam: PRESENT: atraumatic, normocephalic Respiratory exam: PRESENT: rhonchi, tachypnea Cardiovascular exam: PRESENT: RRR GI/Abdominal exam: PRESENT: soft Gentrourinary exam: PRESENT: indwelling catheter Extremities exam: PRESENT: +2 edema Neurological exam: PRESENT: alert, awake Laboratory/Radiographs Laboratory Results: 02/22/19 04:20 02/22/19 04:20 02/22/19 02/22/19 04:20 04:20 WBC 10.7 H RBC 2.72 L Hgb 7.7 L Hct 23.9 L MCV 88 MCH 28.5 MCHC 32.3 RDW 18.6 H Plt Count 135 L Seg Neutrophils % 88.3 H Sodium 145.5 H Potassium 3.1 L Chloride 106 Carbon Dioxide 37 H Anion Gap 3 L BUN 34 H Creatinine 1.40 H Est GFR ( Amer) 49 L Glucose 122 H Calcium 8.4 02/18/19 08:30 Blood Blood Culture (PCR) - Final Staphylococcus Aureus 02/08/19 02/08/19 02/08/19 04:06 04:06 05:30 Creatine Kinase Cancelled 33 CK-MB (CK-2) Cancelled Troponin I Cancelled NT-Pro-B Natriuret Pep Cancelled 02/08/19 02/11/19 02/13/19 05:45 03:18 01:22 Creatine Kinase CK-MB (CK-2) < 0.22 Troponin I 0.043 NT-Pro-B Natriuret Pep 7610 H 1970 H 27918 H Impressions: Chest CT 02/10/19 00:00 IMPRESSION: No pneumothorax. No pleural effusions. Bibasilar consolidation in both lower lobes. Slightly increased interstitial thickening, basilar predominance. Scattered pulmonary cysts and ground-glass opacities are again noted. Tubes and lines in expected positions. KUB X-Ray 02/18/19 00:00 IMPRESSION: NG tube tip in the fundus of the stomach. Chest X-Ray 02/20/19 00:00 IMPRESSION: STABLE APPEARANCE OF THE CHEST. SUPPORT DEVICES UNCHANGED. Assessment and Plan - Diagnosis (1) Acute on chronic systolic (congestive) heart failure Is this a current diagnosis for this admission?: Yes (2) ARDS (adult respiratory distress syndrome) Is this a current diagnosis for this admission?: Yes (3) Acute respiratory failure with hypoxia Is this a current diagnosis for this admission?: Yes (4) Ischemic cardiomyopathy with implantable cardioverter-defibrillator (ICD) Is this a current diagnosis for this admission?: Yes (5) MRSA (methicillin resistant staphylococcus aureus) pneumonia Qualifiers: Laterality: bilateral Lung location: unspecified part of lung Qualified Code(s): J15.212 - Pneumonia due to Methicillin resistant Staphylococcus aureus Is this a current diagnosis for this admission?: Yes (6) Acute kidney injury Is this a current diagnosis for this admission?: Yes (7) Acute lung injury associated with vaping Is this a current diagnosis for this admission?: Yes (8) Atrial fibrillation Qualifiers: Atrial fibrillation type: longstanding persistent Qualified Code(s): I48.11 - Longstanding persistent atrial fibrillation Is this a current diagnosis for this admission?: Yes (9) Amiodarone toxicity Qualifiers: Encounter type: initial encounter Injury intent: accidental or unintentional Qualified Code(s): T46.2X1A - Poisoning by other antidysrhythmic drugs, accidental (unintentional), initial encounter Is this a current diagnosis for this admission?: Yes Plan Summary: Assessment: Critically ill 48 yo woman with acute respiratory failure, MRSA PNA, Vaping associated lung injury, ARDS, acute on chronic systolic CHF, cardiomyopathy, PAF, infected AICD leads, amiodarone pulmonary lung toxicity, COPD, severe sepsis, MRSA bacteremia. Plan: 1. Respiratory: acute respirtory failure, resolved. Pt extubated 02/20. Is stable on NC. Continue to wean to RA as tolerated. 2. Pulmonary: MRSA PNA, ARDS-resolved, vaping associated lung injury, amiodarone lung toxicity. ATBX,bronchodilators. Off steroids 3. CV: acute on chronic systolic CHF, cardiomyopathy. EF 25%, PAF, AICD with infected leads. Is off milrinone. Is on lopressor, entresto, Nitro past. Lasix stopped due to metabolic alkalosis. Stopped heparin drip for her afib due to thrombocytopenia. 4. ID: severe sepsis, MRSA PNA. Infected AICD leads. MRSA bacteremia. Febrile overnight. Remains vanc per ID. Blood cultures still positive with MRSA. Will d/c central line if able to get peripheral IVs. 5. Renal/Electrolytes: BENNY, resolving. Cr has decreased to 1.40. Now with metabolic alkalosis. Lasix stopped. Hypernatremia, continue 1/2 NS IVF 6. Heme: thrombocytopenia. Will d/c heparin drip 7 GI: GI bleed, resolved. EGD on 02/18 showed gastritis. Colonoscopy 02/20, negative. 8. Nutritioin: Failed swallowing eval. NPO 9. Access: new central line placed 02/18. Will need PICC for long-term ATBX once blood cultures are negative. Blood cultures remain positive. Will d/c TLC 10 Endocrine: . Accuchecks, SSI 10. Prophylaxis: scds. No pharmacologic DVT prophylaxis needed b/c pt was on heparin drip for afib. 11. PT/OT/ST Critical Care time= 33 min, excluding procedures Critical Time Critical Time (minutes): 33 Level of Care: ICU -: 1. The care of a critical patient is a dynamic process. This note is a graphic art sales representative synopsis but static in nature. The timeframe for treatments given in order is not necessarily the actual time these treatments may have been done. 2. This patient requires critical care secondary to ongoing requirements for therapy not offered or safe outside the critical care environment. Transfer to a lower level of care will result in altered life or limb morbidity and mortality. 3. Multidisciplinary rounds completed. 4. ABCDE bundle addressed.
[2019-02-22] MEDS: 1/2 NORMAL SALINE 1,000 ML IV PRN (14:54)
[2019-02-22 15:43] LABS: BLOOD UREA NITROGEN 31 mg/dL (7-20); CHLORIDE 102 mmol/L (98-107); GLUCOSE 99 mg/dL (75-110); POTASSIUM 3.1 mmol/L (3.6-5.0)
[2019-02-22 15:49] LABS: CARBON DIOXIDE 37 mmol/L (22-30)
[2019-02-22 15:51] LABS: ANION GAP 4 (5-19)
[2019-02-22] MEDS: POTASSIUM CHLORIDE 20 MEQ/50 ML RTU IV SCH ×2 (18:08→20:29)
--- NOTE | 2019-02-22 18:22 | Progress Note ---
Provider Note Provider Note: CARDIOLOGY PROGRESS NOTE by Dr. Griselda Martin on 02/22/2019. SUBJECTIVE: The patient/much improvement. She denies shortness of breath at rest. There is no cough or wheezing. There is no TIA CVA symptoms. There is no firing of AICD. There is no recurrence of atrial fibrillation or ventricular arrhythmias. She has remained off milrinone. She states she is feeling hungry and wants to eat. Physical EXAMINATION: The patient is morbidly obese. At present in no acute distress. Selected Entries 02/22/19 16:00 Temperature 100.2 F Temperature Axillary Source Pulse Rate 69 Respiratory 21 H Rate Blood Pressure 101/64 [Left Upper Arm ] Blood Pressure 76 Mean [Left Upper Arm] Blood Pressure Supine Position [Left Upper Arm] O2 Sat by Pulse 96 Oximetry Oxygen Delivery Nasal Cannula Method ( includes room air) HEAD: Is atraumatic normocephalic. EYES: Pupils are equal round regular reactive to light. HEENT is negative. SKIN: There is no skin rashes or skin lesions. There is no particular ecchymosis. NECK: Is supple. There is mild JVD present. Carotids are equal there is no bruits. There is no lymphadenopathy. There is no goiter. There is no accessory muscle respiration use. Trachea central. LUNGS: Shows bibasilar rales of CHF. There are no rhonchi or wheezing. There is also dry crackles in the right lower lobe. There is diminished air entry. On percussion there is hyperresonance. On palpation there is no chest wall tenderness. HEART: S1-S2 is heard. There is no S3 gallop. There is no S4 gallop. There is systolic murmur mitral regurgitation tricuspid regurgitation present. There is no aortic stenosis murmur. There is no aortic insufficiency murmur. There is no rub. ABDOMEN: Is obese. Nontender. There is no hepatosplenomegaly. Bowel sounds are well heard. There is no rebound guarding or rigidity. EXTREMITIES: Femorals are deep. Femorals are diminished. There is no femoral bruits. There is decreased leg pulses. There is mild pedal edema. There is no DVT or cellulitis. There is no calf te nderness. 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 She is slightly drowsy. She responds appropriately to verbal requests. Moves all 4 extremities. PSYCHIATRIC: The patient does not appear to be agitated or anxious. IMPRESSION/RECOMMENDATION: 1. Acute on chronic respiratory failure. This is multifactorial secondary to the causes listed below. Continue ventilator support and supplemental oxygen. 2. Acute on chronic systolic heart failure. Patient with LV ejection fraction of 25%. Agree with continuing aggressive diuresis with Lasix. And continue the patient's Entresto and beta-rip. The patient is off milrinone. 3. Acute exacerbation COPD: Continue bronchodilators and ventilatory support. 4. MRSA pneumonia: Continue antibiotics. 5. 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 Hence would recommend discontinue the patient's amiodarone which has been done. Continue steroids. 6. Acute on chronic kidney disease: Watch renal function as we implement aggressive diuresis. At present patient has chronic kidney disease stage III with a GFR of 43 mL per per minute. 7. Cardiomyopathy with severely reduced LV ejection fraction. Continue milrinone. 8. Paroxysmal atrial fibrillation: Continue beta-rip and Eliquis. 9. History of ventricular tachycardia, The patient has an AICD placed. If there is recurrence of ventricular tachycardia or major ventricular ectopic activity then would start the patient on small dose of sotalol. Would avoid amiodarone. 10. Hypertension: Blood pressure well controlled, on current medications. 11. Coronary artery disease: History of [place] and history of coronary bypass graft surgery. No evidence of acute coronary syndrome/non-ST ST elevation [place] this admission. 12. Obstructive sleep apnea. Note patient is noncompliant with CPAP. Most likely has significant pulmonary hypertension. 13. Hypokalemia: Replace potassium. 14. AICD placement: Note the patient's basal rate is around 60 bpm. If the patient's heart failure continues then would recommend increasing the basal heart rate to 80 bpm to help combat the heart failure along with diuretics. 15. MRSA bacteremia: Continue antibiotics. Repeat blood cultures are positive again for MRSA. With the lead insertion site showing fibrinous changes, and with the repeat culture showing MRSA there is high suspicion for infection of the AICD leads. Hence housekeeping lead is strongly recommending that the patient be transferred to [facility] for explantation of the AICD system. Interrogation of the AICD shows that it is functioning normally. The lead impedance of the atri al, right and ventricular left ventricular leads are acceptable. Medications reviewed. Management and medical regimen discussed with the housekeeping lead. Medical decision making is of moderate complexity. 40 minutes spent on this patient with more than 50% time spent in direct patient care. Will follow.
[2019-02-23] MEDS: INSULIN LISPRO 100 UNIT/ML 3 ML VIAL SUBCUT SCH ×4 (00:31→20:00)
[2019-02-23] MEDS: NITROGLYCERIN 2% OINTMENT 1 GM PACKET TP SCH ×3 (06:33→22:47)
[2019-02-23] MEDS: VANCOMYCIN HCL 1,000 MG in DEXTROSE 5%-WATER 250 ML IV SCH ×2 (06:33→19:46)
[2019-02-23 08:40] LABS: HEMATOCRIT 20.9 % (36.0-47.0); MEAN CORPUSCULAR HEMOGLOBIN 28.7 pg (27.0-33.4); MEAN CORPUSCULAR HGB CONC 32.7 g/dL (32.0-36.0); MEAN CORPUSCULAR VOLUME 88 fl (80-97); PLATELET COUNT 106 10^3/uL (150-450); RED BLOOD COUNT 2.38 10^6/uL (3.72-5.28); RED CELL DISTRIBUTION WIDTH 18.8 % (11.5-14.0); WHITE BLOOD COUNT 8.5 10^3/uL (4.0-10.5)
[2019-02-23 08:45] LABS: HEMOGLOBIN 6.8 g/dL (12.0-15.5)
[2019-02-23 08:57] LABS: ANION GAP 7 (5-19); BLOOD UREA NITROGEN 24 mg/dL (7-20); CALCIUM 8.1 mg/dL (8.4-10.2); CARBON DIOXIDE 33 mmol/L (22-30); CHLORIDE 101 mmol/L (98-107); GLUCOSE 130 mg/dL (75-110); POTASSIUM 3.6 mmol/L (3.6-5.0)
[2019-02-23 09:05] LABS: ABSOLUTE LYMPHOCYTES# (MANUAL) 0.9 10^3/uL (0.5-4.7); ABSOLUTE MONOCYTES # (MANUAL) 0.2 10^3/uL (0.1-1.4); ANISOCYTOSIS 1+; BASOPHILS % (MANUAL) 0 % (0-2); EOSINOPHILS % (MANUAL) 0 % (0-6); LYMPHOCYTES % (MANUAL) 10 % (13-45); MONOCYTES % (MANUAL) 2 % (3-13); OVALOCYTES SLIGHT; POLYCHROMASIA SLIGHT; SEGMENTED NEUTROPHILS % (MAN) 88 % (42-78); TEAR DROP CELLS SLIGHT; TOTAL CELLS COUNTED 100; TOXIC GRANULATION 1+
[2019-02-23 09:06] LABS: PLATELET COMMENT DECREASED; STOMATOCYTES SLIGHT
[2019-02-23] MEDS: METOPROLOL TARTRATE 50 MG TABLET NG SCH ×2 (09:49→22:48)
[2019-02-23] MEDS: SACUBITRIL/VALSARTAN 97 MG/103 MG TABLET NG SCH (09:49)
[2019-02-23] MEDS: BUSPIRONE HCL 10 MG TABLET NG SCH ×2 (09:49→22:48)
[2019-02-23] MEDS: AMINO AC/PROTEIN HYDR/WHEY PRO 11 GM/45 ML PKT NG SCH ×4 (09:50→22:49)
[2019-02-23 12:48] LABS: ABSOLUTE LYMPHOCYTES (AUTO) 0.4 10^3/uL (0.5-4.7); ABSOLUTE MONOCYTES (AUTO) 0.3 10^3/uL (0.1-1.4); ABSOLUTE NEUT (AUTO) 6.1 10^3/uL (1.7-8.2); BASOPHILS % (AUTO) 0.1 % (0-2); EOSINOPHILS % (AUTO) 0.2 % (0-6); LYMPHOCYTES % (AUTO) 6.1 % (13-45); MEAN CORPUSCULAR HEMOGLOBIN 28.9 pg (27.0-33.4); MEAN CORPUSCULAR VOLUME 88 fl (80-97); MONOCYTES % (AUTO) 4.8 % (3-13); PLATELET COUNT 106 10^3/uL (150-450); RED BLOOD COUNT 2.18 10^6/uL (3.72-5.28); RED CELL DISTRIBUTION WIDTH 18.2 % (11.5-14.0); SEGMENTED NEUTROPHILS % (AUTO) 88.8 % (42-78); TOTAL CELLS COUNTED % (AUTO) 100 %; WHITE BLOOD COUNT 6.9 10^3/uL (4.0-10.5)
[2019-02-23 12:58] LABS: HEMOGLOBIN 6.3 g/dL (12.0-15.5)
[2019-02-23] MEDS ORDERED: NORMAL SALINE 250 ML IV PRN ×2 (14:19)
[2019-02-23] MEDS ORDERED: FUROSEMIDE INJ/PF 40 MG/4 ML SDV IV PRN (14:19)
--- NOTE | 2019-02-23 14:28 | PDOC CRITICAL CARE PROG REPORT ---
General Date:: 02/23/19 - Critical Care Progress Note Resuscitation Status: Full Code Medical Power of Data Integration Architect: Daughter, Aparna Events in the past 12 to 24 Hours:: Pt passed her swallowing evaluation today. Reason for ICU Addmission:: Respiratory failure Physical Exam Vital Signs: Temp Pulse Resp BP Pulse Ox 101.8 F H 74 27 H 131/76 H 100 02/23/19 12:00 02/23/19 12:00 02/23/19 12:00 02/23/19 12:00 02/23/19 12:00 Intake & Output 02/22/19 02/23/19 02/24/19 06:59 06:59 06:59 Intake Total 1790 1638 Output Total 7368 8255 275 Balance -1060 -897 -275 Weight 114.3 kg 116.4 kg Weight/Height Weight 116.4 kg Height 5 ft 4 in General appearance: PRESENT: no acute distress, well-developed, well-nourished, other - awake, alert, communicative Head exam: PRESENT: atraumatic, normocephalic Respiratory exam: PRESENT: retraction, unlabored Cardiovascular exam: PRESENT: RRR GI/Abdominal exam: PRESENT: soft, other - non tender, non-distended Gentrourinary exam: PRESENT: indwelling catheter Extremities exam: PRESENT: +2 edema Neurological exam: PRESENT: alert, awake Laboratory/Radiographs Laboratory Results: 02/23/19 12:20 02/23/19 06:45 02/22/19 02/23/19 02/23/19 15:00 06:45 06:45 WBC 8.5 RBC 2.38 L Hgb 6.8 L Hct 20.9 L MCV 88 MCH 28.7 MCHC 32.7 RDW 18.8 H Plt Count 106 L Seg Neutrophils % Not Reportable Sodium 142.6 140.6 Potassium 3.1 L 3.6 Chloride 102 101 Carbon Dioxide 37 H 33 H Anion Gap 4 L 7 BUN 31 H 24 H Creatinine 1.34 H 1.20 Est GFR ( Amer) 51 L 58 L Glucose 99 130 H Calcium 8.0 L 8.1 L 02/23/19 12:20 WBC 6.9 RBC 2.18 L Hgb 6.3 L Hct 19.0 L MCV 88 MCH 28.9 MCHC 33.0 RDW 18.2 H Plt Count 106 L Seg Neutrophils % 88.8 H Sodium Potassium Chloride Carbon Dioxide Anion Gap BUN Creatinine Est GFR ( Amer) Glucose Calcium 02/18/19 08:30 Blood Blood Culture (PCR) - Final Staphylococcus Aureus 02/18/19 08:30 Blood Blood Culture - Final Mrsa (Meth Resis Staph Aureus) 02/18/19 09:14 Blood Blood Culture - Final NO GROWTH IN 5 DAYS 02/08/19 02/08/19 02/08/19 04:06 04:06 05:30 Creatine Kinase Cancelled 33 CK-MB (CK-2) Cancelled Troponin I Cancelled NT-Pro-B Natriuret Pep Cancelled 02/08/19 02/11/19 02/13/19 05:45 03:18 01:22 Creatine Kinase CK-MB (CK-2) < 0.22 Troponin I 0.043 NT-Pro-B Natriuret Pep 7610 H 1970 H 91464 H Impressions: Chest CT 02/10/19 00:00 IMPRESSION: No pneumothorax. No pleural effusions. Bibasilar consolidation in both lower lobes. Slightly increased interstitial thickening, basilar predominance. Scattered pulmonary cysts and ground-glass opacities are again noted. Tubes and lines in expected positions. KUB X-Ray 02/18/19 00:00 IMPRESSION: NG tube tip in the fundus of the stomach. Chest X-Ray 02/20/19 00:00 IMPRESSION: STABLE APPEARANCE OF THE CHEST. SUPPORT DEVICES UNCHANGED. Assessment and Plan - Diagnosis (1) Acute on chronic systolic (congestive) heart failure Is this a current diagnosis for this admission?: Yes (2) ARDS (adult respiratory distress syndrome) Is this a current diagnosis for this admission?: Yes (3) Acute respiratory failure with hypoxia Is this a current diagnosis for this admission?: Yes (4) Ischemic cardiomyopathy with implantable cardioverter-defibrillator (ICD) Is this a current diagnosis for this admission?: Yes (5) MRSA (methicillin resistant staphylococcus aureus) pneumonia Qualifiers: Laterality: bilateral Lung location: unspecified part of lung Qualified Code(s): J15.212 - Pneumonia due to Methicillin resistant Staphylococcus aureus Is this a current diagnosis for this admission?: Yes (6) Acute kidney injury Is this a current diagnosis for this admission?: Yes (7) Acute lung injury associated with vaping Is this a current diagnosis for this admission?: Yes (8) Atrial fibrillation Qualifiers: Atrial fibrillation type: longstanding persistent Qualified Code(s): I48.11 - Longstanding persistent atrial fibrillation Is this a current diagnosis for this admission?: Yes (9) Amiodarone toxicity Qualifiers: Encounter type: initial encounter Injury intent: accidental or unintentional Qualified Code(s): T46.2X1A - Poisoning by other antidysrhythmic drugs, accidental (unintentional), initial encounter Is this a current diagnosis for this admission?: Yes Plan Summary: Assessment: Critically ill 48 yo woman with acute respiratory failure, MRSA PNA, Vaping associated lung injury, ARDS, acute on chronic systolic CHF, cardiomyopathy, PAF, infected AICD leads, amiodarone pulmonary lung toxicity, COPD, severe sepsis, MRSA bacteremia. Plan: 1. Respiratory: acute respirtory failure, resolved. Pt extubated 02/20. Is stable on NC. Continue to wean to RA as tolerated. 2. Pulmonary: MRSA PNA, ARDS-resolved, vaping associated lung injury, amiodarone lung toxicity. ATBX,bronchodilators. Off steroids 3. CV: acute on chronic systolic CHF, cardiomyopathy. EF 25%, PAF, AICD with infected leads. Is off milrinone. Is on lopressor, entresto, Nitro past. Lasix stopped due to metabolic alkalosis. Stopped heparin drip for her afib yesterda due to thrombocytopenia. 4. ID: severe sepsis, MRSA PNA. Infected AICD leads. MRSA bacteremia. Remains f ebrile. vanc per ID. Blood cultures still positive with MRSA. Will change central line after pt gets her PRBC transfusion. Staff is unable to get peripheral IVs. 5. Renal/Electrolytes: BENNY, resolving. Cr has decreased to 1.20 Now with metabolic alkalosis due to lasix. Hypernatremia, continue 1/2 NS IVF 6. Heme: Anemia. Hg is 6.3 today. No signs of bleeding. Thrombocytopenia. Heparin drip for her afib stopped yesterday due to the thromboctyopenia. Will transfuse 1 unit of PRBC and follow it with lasix. 7 GI: GI bleed, resolved. EGD on 02/18 showed gastritis. Colonoscopy 02/20, negative. 8. Nutrition: Passed swallowing eval. Started on diet 9. Access: new central line placed 02/18. Will need PICC for long-term ATBX once blood cultures are negative. Blood cultures remain positive. Will insert new central line after pt gets her PRBC 10 Endocrine: . Accuchecks, SSI 10. Prophylaxis: scds. No pharmacologic DVT prophylaxis b/c of anemia and thrombocytopenia 11. PT/OT/ST Critical Care time= 33 min, excluding procedures Critical Time Critical Time (minutes): 33 Level of Care: ICU -: 1. The care of a critical patient is a dynamic process. This note is a retail customer service representative synopsis but static in nature. The timeframe for treatments given in order is not necessarily the actual time these treatments may have been done. 2. This patient requires critical care secondary to ongoing requirements for therapy not offered or safe outside the critical care environment. Transfer to a lower level of care will result in altered life or limb morbidity and mortality. 3. Multidisciplinary rounds completed. 4. ABCDE bundle addressed.
[2019-02-23] MEDS: ACETAMINOPHEN 325 MG TABLET PO PRN (14:36)
--- NOTE | 2019-02-23 19:18 | Progress Note ---
Provider Note Provider Note: CARDIOLOGY PROGRESS NOTE by Dr. Griselda Martin on 02/23/2019. SUBJECTIVE: The patient states that shortness of breath is better. She still has some rhonchi and wheezing on the right side. She still is febrile. She is still has no chest pain or discomfort. There is no recurrence of atrial fibrillation. There is no mental arrhythmia seen on the monitor. There is no firing of AICD. She denies any chest pain. There is no TIA CVA symptoms. She has no angina. PHYSICAL EXAMINATION: The patient is morbidly obese in no acute distress. Selected Entries 02/23/19 02/23/19 02/23/19 07:30 08:00 09:01 Temperature 102.4 F H Heart Rate ( 81 Monitors) Respiratory Rate Blood Pressure 158/77 H Blood Pressure 104 Mean O2 Sat by Pulse 98 98 Oximetry Oxygen Delivery Nasal Cannula Method ( includes room 2 L/min air) 02/23/19 09:31 Temperature Heart Rate ( Monitors) Respiratory 24 H Rate Blood Pressure Blood Pressure Mean O2 Sat by Pulse Oximetry Oxygen Delivery Method ( includes room air) HEAD: Is atraumatic normocephalic. EYES: Pupils are equal round regular reactive to light. HEENT is negative. SKIN: There is no skin rashes or skin lesions. There is no particular ecchymosis. NECK: Is supple. There is mild JVD present. Carotids are equal there is no bruits. There is no lymphadenopathy. There is no goiter. There is no accessory muscle respiration use. Trachea central. LUNGS: Shows bibasilar rales of CHF. There are no rhonchi or wheezing. There is also dry crackles in the right lower lobe. There is diminished air entry. On percussion there is hyperresonance. On palpation there is no chest wall tenderness. HEART: S1-S2 is heard. There is no S3 gallop. There is no S4 gallop. There is systolic murmur mitral regurgitation tricuspid regurgitation present. There is no aortic stenosis murmur. There is no aortic insufficiency murmur. There is no rub. ABDOMEN: Is obese. Nontender. There is no hepatosplenomegaly. Bowel sounds are well heard. There is no rebound guarding or rigidity. EXTREMITIES: Femorals are deep. Femorals are diminished. There is no femoral bruits. There is decreased leg pulses. There is mild pedal edema. There is no DVT or cellulitis. There is no calf tenderness. 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 She is slightly drowsy. She responds appropriately to verbal requests. Moves all 4 extremities. PSYCHIATRIC: The patient does not appear to be agitated or anxious. Labs- All tests 24 hr 02/23/19 02/23/19 02/23/19 01:52 06:45 06:45 WBC 8.5 RBC 2.38 L Hgb 6.8 L Hct 20.9 L MCV 88 MCH 28.7 MCHC 32.7 RDW 18.8 H Plt Count 106 L Lymph % (Auto) Not Reportable Parke % (Auto) Not Reportable Eos % (Auto) Not Reportable Baso % (Auto) Not Reportable Absolute Neuts (auto) Not Reportable Absolute Lymphs (auto) Not Reportable Absolute Monos (auto) Not Reportable Absolute Eos (auto) Not Reportable Absolute Basos (auto) Not Reportable Total Counted 100 Seg Neutrophils % Not Reportable Seg Neuts % (Manual) 88 H Lymphocytes % (Manual) 10 L Monocytes % (Manual) 2 L Eosinophils % (Manual) 0 Basophils % (Manual) 0 Abs Neuts (Manual) 7.5 Abs Lymphs (Manual) 0.9 Abs Monocytes (Manual) 0.2 Absolute Eos (Manual) 0.0 Abs Basophils (Manual) 0.0 Toxic Granulation 1+ Platelet Comment DECREASED Polychromasia SLIGHT Anisocytosis 1+ Tear Drop Cells SLIGHT Ovalocytes SLIGHT Stomatocytes SLIGHT APTT Sodium 140.6 Potassium 3.6 Chloride 101 Carbon Dioxide 33 H Anion Gap 7 BUN 24 H Creatinine 1.20 Est GFR ( Amer) 58 L Est GFR (MDRD) Non-Af 48 L Glucose 130 H POC Glucose 92 Calcium 8.1 L Blood Type Antibody Screen Crossmatch 02/23/19 02/23/19 02/23/19 06:45 07:34 12:16 WBC RBC Hgb Hct MCV MCH MCHC RDW Plt Count Lymph % (Auto) Parke % (Auto) Eos % (Auto) Baso % (Auto) Absolute Neuts (auto) Absolute Lymphs (auto) Absolute Monos (auto) Absolute Eos (auto) Absolute Basos (auto) Total Counted Seg Neutrophils % Seg Neuts % (Manual) Lymphocytes % (Manual) Monocytes % (Manual) Eosinophils % (Manual) Basophils % (Manual) Abs Neuts (Manual) Abs Lymphs (Manual) Abs Monocytes (Manual) Absolute Eos (Manual) Abs Basophils (Manual) Toxic Granulation Platelet Comment Polychromasia Anisocytosis Tear Drop Cells Ovalocytes Stomatocytes APTT 28.5 Sodium Potassium Chloride Carbon Dioxide Anion Gap BUN Creatinine Est GFR ( Amer) Est GFR (MDRD) Non-Af Glucose POC Glucose 128 H 159 H Calcium Blood Type Antibody Screen Crossmatch 02/23/19 02/23/19 12:20 15:36 WBC 6.9 RBC 2.18 L Hgb 6.3 L Hct 19.0 L MCV 88 MCH 28.9 MCHC 33.0 RDW 18.2 H Plt Count 106 L Lymph % (Auto) 6.1 L Parke % (Auto) 4.8 Eos % (Auto) 0.2 Baso % (Auto) 0.1 Absolute Neuts (auto) 6.1 Absolute Lymphs (auto) 0.4 L Absolute Monos (auto) 0.3 Absolute Eos (auto) 0.0 Absolute Basos (auto) 0.0 Total Counted Seg Neutrophils % 88.8 H Seg Neuts % (Manual) Lymphocytes % (Manual) Monocytes % (Manual) Eosinophils % (Manual) Basophils % (Manual) Abs Neuts (Manual) Abs Lymphs (Manual) Abs Monocytes (Manual) Absolute Eos (Manual) Abs Basophils (Manual) Toxic Granulation Platelet Comment Polychromasia Anisocytosis Tear Drop Cells Ovalocytes Stomatocytes APTT Sodium Potassium Chloride Carbon Dioxide Anion Gap BUN Creatinine Est GFR ( Amer) Est GFR (MDRD) Non-Af Glucose POC Glucose Calcium Blood Type B POSITIVE Antibody Screen NEGATIVE Crossmatch See Detail Chest X-Ray 02/08/19 00:00 IMPRESSION: Slight advancement of endotracheal tube. Otherwise no change. Chest X-Ray 02/08/19 00:00 IMPRESSION: NO PNEUMOTHORAX FOLLOWING CENTRAL LINE PLACEMENT. OTHERWISE NO CHANGE. Chest X-Ray 02/08/19 03:15 IMPRESSION: Cardiomegaly. Endotracheal and enteric tubes are in place. Postsurgical changes of the mediastinum. Airspace opacities right lung base. copyright 2010 [employer]- All Rights Reserved Chest CT 02/10/19 00:00 IMPRESSION: No pneumothorax. No pleural effusions. Bibasilar consolidation in both lower lobes. Slightly increased interstitial thickening, basilar predominance. Scattered pulmonary cysts and ground-glass opacities are again noted. Tubes and lines in expected positions. Chest X-Ray 02/12/19 00:00 IMPRESSION: 1. Bilateral perihilar airspace consolidation which may be due to edema, atelectasis or pneumonia. 2. Marked cardiomegaly. 3. Remote postsurgical changes of the mediastinum. 4. Life support lines and tubes as described above. Chest X-Ray 02/13/19 06:00 IMPRESSION: STABLE APPEARANCE OF THE CHEST. SUPPORT DEVICES UNCHANGED. Chest X-Ray 02/14/19 06:00 IMPRESSION: Mildly worsened bibasilar predominant opacities, likely edema although infection not excluded. Stable support lines and tubes as above. Chest X-Ray 02/15/19 03:06 IMPRESSION: Diffuse persistent but improving interstitial and alveolar opacities throughout both lungs. Stable cardiomegaly. Chest X-Ray 02/16/19 06:00 IMPRESSION: Unchanged radiographic appearance of the chest. KUB X-Ray 02/16/19 15:49 IMPRESSION: The tip and side hole of the enteric tube project within the gastric lumen. Chest X-Ray 02/17/19 06:00 IMPRESSION: Findings most consistent with congestive failure an asymmetric pulmonary edema. Slightly improved. SUPPORT DEVICE(S) IN EXPECTED LOCATIONS. Chest X-Ray 02/18/19 00:00 IMPRESSION: New left IJ line with the tip overlying the proximal SVC. Consider advancement 3-4 cm. KUB X-Ray 02/18/19 00:00 IMPRESSION: NG tube tip in the fundus of the stomach. Chest X-Ray 02/19/19 06:00 IMPRESSION: Tubes and lines in good positioning. Stable marked cardiomegaly and mild residual alveolar and interstitial infiltrates Chest X-Ray 02/20/19 00:00 IMPRESSION: STABLE APPEARANCE OF THE CHEST. SUPPORT DEVICES UNCHANGED. IMPRESSION/RECOMMENDATION: 1. Acute on chronic respiratory failure. This is multifactorial secondary to the causes listed below. Continue ventilator support and supplemental oxygen. 2. Acute on chronic systolic heart failure. Patient with LV ejection fraction of 25%. Agree with continuing aggressive diuresis with Lasix. And continue the patient's Entresto and beta-rip. The patient is off milrinone. 3. Acute exacerbation COPD: Continue bronchodilators and ventilatory support. 4. MRSA pneumonia: Continue antibiotics. 5. Amiodarone has been discontinued due to suspected pulmonary toxicity but is a finishing the race to walk 6. Acute on chronic kidney disease: Watch renal function as we implement aggressive diuresis. At present patient has chronic kidney disease stage III with a GFR of 43 mL per per minute. 7. Cardiomyopathy with severely reduced LV ejection fraction. Continue milrinone. 8. Paroxysmal atrial fibrillation: Continue beta-rip and Eliquis. 9. History of ventricular tachycardia, The patient has an AICD placed. If there is recurrence of ventricular tachycardia or major ventricular ectopic activity then would start the patient on small dose of sotalol. Would avoid amiodarone. 10. Hypertension: Blood pressure well controlled, on current medications. 11. Coronary artery disease: History of [place] and history of coronary bypass graft surgery. No evidence of acute coronary syndrome/non-ST ST elevation [place] this admission. 12. Obstructive sleep apnea. Note patient is noncompliant with CPAP. Most likely has significant pulmonary hypertension. 13. Hypokalemia: Replace potassium. 14. AICD placement: Note the patient's basal rate is around 60 bpm. If the patient's heart failure continues then would recommend increasing the basal heart rate to 80 bpm to help combat the heart failure along with diuretics. 15. MRSA bacteremia: Continue antibiotics. Repeat blood cultures are positive again for MRSA. With the lead insertion site showing fibrinous changes, and with the repeat culture showing MRSA there is high suspicion for infection of the AICD leads. Hence sole inker is strongly recommending that the patient be transferred to [facility] for explantation of the AICD system. Interrogation of the AICD shows that it is functioning normally. The lead impedance of the atrial, right and ventricular left ventricular leads are acceptable. MEDICATIONS reviewed. Medical regimen and management plan discussed with the attending physician on the case. Medical decision making is of moderate complexity. 40 minutes spent as patient more than 50% time spent in direct patient care.
[2019-02-24] MEDS: INSULIN LISPRO 100 UNIT/ML 3 ML VIAL SUBCUT SCH ×4 (01:07→18:00)
[2019-02-24 06:12] LABS: ABSOLUTE LYMPHOCYTES (AUTO) 0.5 10^3/uL (0.5-4.7); ABSOLUTE MONOCYTES (AUTO) 0.2 10^3/uL (0.1-1.4); ABSOLUTE NEUT (AUTO) 7.1 10^3/uL (1.7-8.2); BASOPHILS % (AUTO) 0.1 % (0-2); EOSINOPHILS % (AUTO) 0.2 % (0-6); LYMPHOCYTES % (AUTO) 5.8 % (13-45); MEAN CORPUSCULAR HGB CONC 33.3 g/dL (32.0-36.0); MEAN CORPUSCULAR VOLUME 87 fl (80-97); MONOCYTES % (AUTO) 3.1 % (3-13); PLATELET COUNT 109 10^3/uL (150-450); RED BLOOD COUNT 2.52 10^6/uL (3.72-5.28); RED CELL DISTRIBUTION WIDTH 17.7 % (11.5-14.0); SEGMENTED NEUTROPHILS % (AUTO) 90.8 % (42-78); TOTAL CELLS COUNTED % (AUTO) 100 %; WHITE BLOOD COUNT 7.9 10^3/uL (4.0-10.5)
[2019-02-24 06:17] LABS: HEMOGLOBIN 7.3 g/dL (12.0-15.5)
[2019-02-24 06:32] LABS: ANION GAP 6 (5-19); BLOOD UREA NITROGEN 19 mg/dL (7-20); CARBON DIOXIDE 37 mmol/L (22-30); CHLORIDE 99 mmol/L (98-107); GLUCOSE 91 mg/dL (75-110); POTASSIUM 3.2 mmol/L (3.6-5.0)
[2019-02-24] MEDS: VANCOMYCIN HCL 1,000 MG in DEXTROSE 5%-WATER 250 ML IV SCH ×2 (06:50→18:00)
[2019-02-24] MEDS: NITROGLYCERIN 2% OINTMENT 1 GM PACKET TP SCH ×3 (06:51→22:21)
--- NOTE | 2019-02-24 09:26 | PDOC CRITICAL CARE PROG REPORT ---
General Date:: 02/24/19 - Critical Care Attending Note Resuscitation Status: Full Code Medical Power of Hand Presser: Daughter, Aparna Events in the past 12 to 24 Hours:: No acute overnight events. Pt states she feels much better. Reason for ICU Addmission:: Respiratory failure Physical Exam Vital Signs: Temp Pulse Resp BP Pulse Ox 100.2 F 70 27 H 137/94 H 99 02/24/19 07:31 02/24/19 08:00 02/24/19 07:31 02/24/19 07:31 02/24/19 06:31 Intake & Output 02/23/19 02/24/19 02/25/19 06:59 06:59 06:59 Intake Total 1638 830 Output Total 2535 2775 125 Balance -897 -1945 -125 Weight 116.4 kg 116.6 kg Weight/Height Weight 116.6 kg Height 5 ft 4 in General appearance: PRESENT: no acute distress, well-developed, other Respiratory exam: PRESENT: clear to auscultation renu, unlabored Cardiovascular exam: PRESENT: RRR GI/Abdominal exam: PRESENT: soft, other - non tender, non-distended Gentrourinary exam: PRESENT: indwelling catheter Extremities exam: PRESENT: +2 edema Neurological exam: PRESENT: alert, awake Laboratory/Radiographs Laboratory Results: 02/24/19 05:50 02/24/19 05:50 02/23/19 02/23/19 02/24/19 12:20 15:36 05:50 WBC 6.9 RBC 2.18 L Hgb 6.3 L Hct 19.0 L MCV 88 MCH 28.9 MCHC 33.0 RDW 18.2 H Plt Count 106 L Seg Neutrophils % 88.8 H Sodium 141.5 Potassium 3.2 L Chloride 99 Carbon Dioxide 37 H Anion Gap 6 BUN 19 Creatinine 1.23 Est GFR ( Amer) 57 L Glucose 91 Calcium 8.0 L Blood Type B POSITIVE Antibody Screen NEGATIVE 02/24/19 05:50 WBC 7.9 RBC 2.52 L Hgb 7.3 L Hct 22.0 L MCV 87 MCH 29.0 MCHC 33.3 RDW 17.7 H Plt Count 109 L Seg Neutrophils % 90.8 H Sodium Potassium Chloride Carbon Dioxide Anion Gap BUN Creatinine Est GFR ( Amer) Glucose Calcium Blood Type Antibody Screen 02/18/19 08:30 Blood Blood Culture (PCR) - Final Staphylococcus Aureus 02/18/19 08:30 Blood Blood Culture - Final Mrsa (Meth Resis Staph Aureus) 02/18/19 09:14 Blood Blood Culture - Final NO GROWTH IN 5 DAYS 02/08/19 02/08/19 02/08/19 04:06 04:06 05:30 Creatine Kinase Cancelled 33 CK-MB (CK-2) Cancelled Troponin I Cancelled NT-Pro-B Natriuret Pep Cancelled 02/08/19 02/11/19 02/13/19 05:45 03:18 01:22 Creatine Kinase CK-MB (CK-2) < 0.22 Troponin I 0.043 NT-Pro-B Natriuret Pep 7610 H 1970 H 09619 H Impressions: Chest CT 02/10/19 00:00 IMPRESSION: No pneumothorax. No pleural effusions. Bibasilar consolidation in both lower lobes. Slightly increased interstitial thickening, basilar predominan ce. Scattered pulmonary cysts and ground-glass opacities are again noted. Tubes and lines in expected positions. KUB X-Ray 02/18/19 00:00 IMPRESSION: NG tube tip in the fundus of the stomach. Chest X-Ray 02/20/19 00:00 IMPRESSION: STABLE APPEARANCE OF THE CHEST. SUPPORT DEVICES UNCHANGED. Assessment and Plan - Diagnosis (1) Acute on chronic systolic (congestive) heart failure Is this a current diagnosis for this admission?: Yes (2) ARDS (adult respiratory distress syndrome) Is this a current diagnosis for this admission?: Yes (3) Acute respiratory failure with hypoxia Is this a current diagnosis for this admission?: Yes (4) Ischemic cardiomyopathy with implantable cardioverter-defibrillator (ICD) Is this a current diagnosis for this admission?: Yes (5) MRSA (methicillin resistant staphylococcus aureus) pneumonia Qualifiers: Laterality: bilateral Lung location: unspecified part of lung Qualified Code(s): J15.212 - Pneumonia due to Methicillin resistant Staphylococcus aureus Is this a current diagnosis for this admission?: Yes (6) Acute kidney injury Is this a current diagnosis for this admission?: Yes (7) Acute lung injury associated with vaping Is this a current diagnosis for this admission?: Yes (8) Atrial fibrillation Qualifiers: Atrial fibrillation type: longstanding persistent Qualified Code(s): I48.11 - Longstanding persistent atrial fibrillation Is this a current diagnosis for this admission?: Yes (9) Amiodarone toxicity Qualifiers: Encounter type: initial encounter Injury intent: accidental or unintentiona l Qualified Code(s): T46.2X1A - Poisoning by other antidysrhythmic drugs, accidental (unintentional), initial encounter Is this a current diagnosis for this admission?: Yes Plan Summary: Assessment: Critically ill 48 yo woman with acute respiratory failure, MRSA PNA, Vaping associated lung injury, ARDS, acute on chronic systolic CHF, cardiomyopathy, PAF, infected AICD leads, amiodarone pulmonary lung toxicity, C OPD, severe sepsis, MRSA bacteremia. Plan: 1. Respiratory: acute respirtory failure, resolved. Pt extubated 02/20. Is stable on NC. Continue to wean to RA as tolerated. 2. Pulmonary: MRSA PNA, ARDS-resolved, vaping associated lung injury, amiodarone lung toxicity. ATBX,bronchodilators. Off steroids 3. CV: acute on chronic systolic CHF, cardiomyopathy. EF 25%, PAF, AICD with infected leads. Is off milrinone. Is on lopressor, entresto, Nitro past. Lasix stopped due to metabolic alkalosis. Stopped heparin drip for her afib 2 days ago due to thrombocytopenia. 4. ID: severe sepsis, MRSA PNA. Infected AICD leads. MRSA bacteremia. Remains febrile. Vancomycin. Blood cultures still positive with MRSA. Will change central line today Staff is unable to get peripheral IVs. 5. Renal/Electrolytes: BENNY, resolving. Cr is stable at 1.23. Metabolic alkalosis due to diuresis. Hypernatremia, resolving. Will d/c 1/2 NS IVF. 6. Heme: Anemia.Got one unit of PRBC yesterday for Hg of 6.3. Thrombocytopenia, resolving. Off heparin infusion. 7 GI: GI bleed, resolved. EGD on 02/18 showed gastritis. Colonoscopy 02/20, negative. 8. Nutrition: regular diet 9. Access: new central line placed 02/18. Will need PICC for long-term ATBX once blood cultures are negative. Blood cultures remain positive. Will insert new central line today 10 Endocrine: . Accuchecks, SSI 10. Prophylaxis: scds. No pharmacologic DVT prophylaxis b/c of anemia and thrombocytopenia 11. PT/OT/ST Critical Time Critical Time (minutes): 0 - no critical care time today Level of Care: ICU -: 1. The care of a critical patient is a dynamic process. This note is a electroplating sales representative synopsis but static in nature. The timeframe for treatments giv en in order is not necessarily the actual time these treatments may have been done. 2. This patient requires critical care secondary to ongoing requirements for therapy not offered or safe outside the critical care environment. Transfer to a lower level of care will result in altered life or limb morbidity and mortality. 3. Multidisciplinary rounds completed. 4. ABCDE bundle addressed.
--- NOTE | 2019-02-24 10:22 | Progress Note ---
Provider Note Provider Note: [facility] Telephone Advice Follow Up Chart reviewed. Patient initially evaluated due to MRSA bacteremia in the setting of MRSA pneumonia and infected AICD leads. Patient has multiple comorbid conditions including CAD, CHF, morbid obesity, COPD - amiodarone toxicity, complicated with ARDS in this admission. She was extubated on 02/20 and seems to be improving clinically. Her blood cultures have been positive since admission and last cultures on 02/18 were still positive. CVL was exchanged on 02/18, it will be exchanged today again. Vancomycin trough initially subtherapeutic, now adequate - 19.4. New blood cultures have not been drawn yet, but she is overall improving. Vital Signs: Temp Pulse Resp BP Pulse Ox 100.2 F 70 27 H 137/94 H 93 02/24/19 07:31 02/24/19 08:00 02/24/19 07:31 02/24/19 07:31 02/24/19 09:39 Intake & Output 02/23/19 02/24/19 02/25/19 06:59 06:59 06:59 Intake Total 1638 830 Output Total 2535 2775 125 Balance -897 -1945 -125 Weight 116.4 kg 116.6 kg Weight/Height Weight 116.6 kg Height 5 ft 4 in Laboratories: 02/24/19 05:50 02/24/19 05:50 MCV 87 fl (80-97) 02/24/19 05:50 MCH 29.0 pg (27.0-33.4) 02/24/19 05:50 MCHC 33.3 g/dL (32.0-36.0) 02/24/19 05:50 RDW 17.7 % (11.5-14.0) H 02/24/19 05:50 Seg Neutrophils % 90.8 % (42-78) H 02/24/19 05:50 Carbonic Acid 1.48 mmol/L (1.05-1.35) H 02/20/19 03:55 HCO3/H2CO3 Ratio 20:1 02/20/19 03:55 ABG pH 7.41 (7.35-7.45) 02/20/19 03:55 ABG pCO2 49.1 mmHg (35-45) H 02/20/19 03:55 ABG pO2 89.1 mmHg (80-100) 02/20/19 03:55 ABG HCO3 30.4 mmol/L (20-24) H 02/20/19 03:55 ABG O2 Saturation 96.8 % (94-98) 02/20/19 03:55 ABG Base Excess 4.9 mmol/L 02/20/19 03:55 FiO2 45% 02/20/19 03:55 Chloride 99 mmol/L (98-107) 02/24/19 05:50 Carbon Dioxide 37 mmol/L (22-30) H 02/24/19 05:50 Anion Gap 6 (5-19) 02/24/19 05:50 Est GFR ( Amer) 57 (>60) L 02/24/19 05:50 Est GFR (Non-Af Amer) Cancelled 02/08/19 04:06 Glucose 91 mg/dL (75-110) 02/24/19 05:50 Lactic Acid 1.3 mmol/L (0.7-2.1) 02/20/19 03:55 Calcium 8.0 mg/dL (8.4-10.2) L 02/24/19 05:50 Phosphorus 2.9 mg/dL (2.5-4.5) 02/21/19 04:00 Magnesium 2.4 mg/dL (1.6-2.3) H 02/21/19 04:00 Total Bilirubin 2.9 mg/dL (0.2-1.3) H 02/20/19 03:55 AST 133 U/L (14-36) H 02/20/19 03:55 Alkaline Phosphatase 229 U/L (38-126) H 02/20/19 03:55 Ammonia 9.3 umol/L (9-33) 02/19/19 02:55 Total Protein 5.6 g/dL (6.3-8.2) L 02/20/19 03:55 Albumin 3.0 g/dL (3.5-5.0) L 02/20/19 03:55 Triglycerides 47 mg/dL (<150) 02/08/19 05:30 TSH 1.34 uIU/mL (0.47-4.68) 02/11/19 03:18 Free T4 1.69 ng/dL (0.78-2.19) 02/11/19 03:18 Free T3 pg/mL 2.48 pg/mL (2.77-5.27) L 02/11/19 03:18 Urine Color YELLOW 02/13/19 20:32 Urine Appearance CLEAR 02/13/19 20:32 Urine pH 6.0 (5.0-9.0) 02/13/19 20:32 Ur Specific [place] 1.020 02/13/19 20:32 Urine Protein 100 mg/dL (NEGATIVE) H 02/13/19 20:32 Urine Glucose (UA) 50 mg/dL (NEGATIVE) H 02/13/19 20:32 Urine Ketones NEGATIVE mg/dL (NEGATIVE) 02/13/19 20:32 Urine Blood SMALL (NEGATIVE) H 02/13/19 20:32 Urine Nitrite NEGATIVE (NEGATIVE) 02/13/19 20:32 Ur Leukocyte Esterase NEGATIVE (NEGATIVE) 02/13/19 20:32 Urine WBC (Auto) 2 /HPF 02/13/19 20:32 Urine RBC (Auto) 5 /HPF 02/13/19 20:32 Stool Occult Blood POSITIVE (NEGATIVE) 02/17/19 14:55 Blood Type B POSITIVE 02/23/19 15:36 Antibody Screen NEGATIVE 02/23/19 15:36 02/08/19 02/08/19 02/08/19 04:06 04:06 05:30 Creatine Kinase Cancelled 33 CK-MB (CK-2) Cancelled Troponin I Cancelled NT-Pro-B Natriuret Pep Cancelled 02/08/19 02/11/19 02/13/19 05:45 03:18 01:22 Creatine Kinase CK-MB (CK-2) < 0.22 Troponin I 0.043 NT-Pro-B Natriuret Pep 7610 H 1970 H 27445 H Microbiology: 02/12 Blood - MRSA 02/14 Blood - MRSA 02/16 Blood - MRSA 02/18/19 08:30 Blood Blood Culture (PCR) - Final Staphylococcus Aureus 02/18/19 08:30 Blood Blood Culture - Final Mrsa (Meth Resis Staph Aureus) 02/18/19 09:14 Blood Blood Culture - Final NO GROWTH IN 5 DAYS Tach Aspirate - 02/08 MRSA BAL 02/12 MRSA Radiology: Chest X-Ray 02/08/19 00:00 IMPRESSION: Slight advancement of endotracheal tube. Otherwise no change. Chest X-Ray 02/08/19 00:00 IMPRESSION: NO PNEUMOTHORAX FOLLOWING CENTRAL LINE PLACEMENT. OTHERWISE NO CHANGE. Chest X-Ray 02/08/19 03:15 IMPRESSION: Cardiomegaly. Endotracheal and enteric tubes are in place. Postsurgical changes of the mediastinum. Airspace opacities right lung base. Chest CT 02/10/19 00:00 IMPRESSION: No pneumothorax. No pleural effusions. Bibasilar consolidation in both lower lobes. Slightly increased interstitial thickening, basilar predominance. Scattered pulmonary cysts and ground-glass opacities are again noted. Tubes and lines in expected positions. Chest X-Ray 02/12/19 00:00 IMPRESSION: 1. Bilateral perihilar airspace consolidation which may be due to edema, atelectasis or pneumonia. 2. Marked cardiomegaly. 3. Remote postsurgical changes of the mediastinum. 4. Life support lines and tubes as described above. Chest X-Ray 02/13/19 06:00 IMPRESSION: STABLE APPEARANCE OF THE CHEST. SUPPORT DEVICES UNCHANGED. Chest X-Ray 02/14/19 06:00 IMPRESSION: Mildly worsened bibasilar predominant opacities, likely edema although infection not excluded. Stable support lines and tubes as above. Chest X-Ray 02/15/19 03:06 IMPRESSION: Diffuse persistent but improving interstitial and alveolar opacities throughout both lungs. Stable cardiomegaly. Chest X-Ray 02/16/19 06:00 IMPRESSION: Unchanged radiographic appearance of the chest. KUB X-Ray 02/16/19 15:49 IMPRESSION: The tip and side hole of the enteric tube project within the gastric lumen. Chest X-Ray 02/17/19 06:00 IMPRESSION: Findings most consistent with congestive failure an asymmetric pulmonary edema. Slightly improved. SUPPORT DEVICE(S) IN EXPECTED LOCATIONS. Chest X-Ray 02/18/19 00:00 IMPRESSION: New left IJ line with the tip overlying the proximal SVC. Consider advancement 3-4 cm. KUB X-Ray 02/18/19 00:00 IMPRESSION: NG tube tip in the fundus of the stomach. Chest X-Ray 02/19/19 06:00 IMPRESSION: Tubes and lines in good positioning. Stable marked cardiomegaly and mild residual alveolar and interstitial infiltrates Chest X-Ray 02/20/19 00:00 IMPRESSION: STABLE APPEARANCE OF THE CHEST. SUPPORT DEVICES UNCHANGED. Assessment and Recommendations: Patient evaluated for MRSA bacteremia in the setting of pneumonia and infected AICD. She has clinically improved but we have not documented clearance of bacteremia. last cultures on 02/18 were positive, CVL was exchanged at that time. Will recommend to repeat blood cultures. New CVL to be exchanged today per notes. Continue vancomycin with trough 15-20. Consider CT surgery evaluation of the JOSS to determine appropriate time for explantation. If she is persistently bacteremic, this needs to be done sooner rather than later. She will need 6 weeks of antibiotics from negative cultures and/or explantation of the device. Please call if questions. Vy Rojo MD [facility] ID [phone]
[2019-02-24] MEDS: BUSPIRONE HCL 10 MG TABLET NG SCH ×2 (10:46→22:22)
[2019-02-24] MEDS: SACUBITRIL/VALSARTAN 97 MG/103 MG TABLET NG SCH (10:46)
[2019-02-24] MEDS: METOPROLOL TARTRATE 50 MG TABLET NG SCH ×2 (10:46→22:22)
[2019-02-24] MEDS: AMINO AC/PROTEIN HYDR/WHEY PRO 11 GM/45 ML PKT NG SCH ×4 (10:47→22:22)
[2019-02-24] MEDS: ACETAMINOPHEN 325 MG TABLET PO PRN ×2 (11:53→16:50)
[2019-02-24] MEDS: IPRATROPIUM/ALBUTEROL 0.5-2.5 MG/3 ML AMPUL NEB PRN ×2 (12:10→15:35)
[2019-02-24] MEDS ORDERED: MORPHINE SULFATE 10 MG/ML INJ ONE (12:22)
--- NOTE | 2019-02-24 14:29 | RADIOLOGY REPORT (SQ) ---
EXAM DESCRIPTION: CHEST SINGLE VIEW COMPLETED DATE/TIME: 02/24/2019 2:05 pm REASON FOR STUDY: Line placement COMPARISON: 02/20/2019 FINDINGS: Single-view chest AP portable upright for central line placement. Right IJ line in place with tip to the superior vena cava, appropriate. No pneumothorax. Pacer remains in place. Endotracheal and nasogastric tubes have been removed. Patchy airspace disease in the right lung looks slightly worse compared to prior. Cardiomegaly. TECHNICAL DOCUMENTATION: JOB ID: [id number] Reading location - IP/workstation name: [email or web address]
--- NOTE | 2019-02-24 22:19 | Progress Note ---
Provider Note Provider Note: CARDIOLOGY PROGRESS NOTE by Dr. Griselda Martin on 02/24/2019. Subjective: The patient states her shortness of breath is much improved. There is no PND. There is still some degree of orthopnea. In view of the persistent fever her triple-lumen catheter has been removed and a new triple-lumen catheter has been inserted by the employment counselor through the right IJ. There is no recurrence of proximal atrial fibrillation. There is no ventricular arrhythmia seen. There is no AICD firing. There is no TIA or CVA. There is no bleeding. The patient is tolerating nitro paste at half inch every 8 hours. Will transition the patient to a long-acting transdermal preparation. PHYSICAL EXAMINATION: The patient is morbidly obese. In no acute distress. Selected Entries 02/24/19 14:00 Temperature 101.7 F H Heart Rate ( 71 Monitors) Respiratory 24 H Rate Blood Pressure 146/84 H [Right Upper Arm] Blood Pressure 104 Mean [Right Upper Arm] O2 Sat by Pulse 93 Oximetry Oxygen Delivery Nasal Cannula Method ( includes room air) Oxygen Flow 3 Rate HEAD: Is atraumatic normocephalic. EYES: Pupils are equal round regular reactive to light. HEENT is negative. SKIN: There is no skin rashes or skin lesions. There is no particular ecchymosis. NECK: Is supple. There is mild JVD present. Carotids are equal there is no bruits. There is no lymphadenopathy. There is no goiter. There is no accessory muscle respiration use. Trachea central. LUNGS: Shows bibasilar rales of CHF. There are no rhonchi or wheezing. There is also dry crackles in the right lower lobe. There is diminished air entry. On percussion there is hyperresonance. On palpation there is no chest wall tenderness. HEART: S1-S2 is heard. There is no S3 gallop. There is no S4 gallop. There is systolic murmur mitral regurgitation tricuspid regurgitation present. There is no aortic stenosis murmur. There is no aortic insufficiency murmur. There is no rub. ABDOMEN: Is obese. Nontender. There is no hepatosplenomegaly. Bowel sounds are well heard. There is no rebound guarding or rigidity. EXTREMITIES: Femorals are deep. Femorals are diminished. There is no femoral bruits. There is decreased leg pulses. There is mild pedal edema. There is no DVT or cellulitis. There is no calf tenderness. ANALYST MARKET INTELLIGENCE: The patient is awake. She is slightly drowsy. She responds appropriately to verbal requests. Moves all 4 extremities. PSYCHIATRIC: The patient does not appear to be agitated or anxious. Labs- All tests 24 hr 02/24/19 02/24/19 02/24/19 00:53 05:47 05:50 WBC RBC Hgb Hct MCV MCH MCHC RDW Plt Count Lymph % (Auto) [place] % (Auto) Eos % (Auto) Baso % (Auto) Absolute Neuts (auto) Absolute Lymphs (auto) Absolute Monos (auto) Absolute Eos (auto) Absolute Basos (auto) Seg Neutrophils % Carbonic Acid HCO3/H2CO3 Ratio ABG pH ABG pCO2 ABG pO2 ABG HCO3 ABG Total CO2 ABG O2 Saturation ABG Base Excess FiO2 Sodium 141.5 Potassium 3.2 L Chloride 99 Carbon Dioxide 37 H Anion Gap 6 BUN 19 Creatinine 1.23 Est GFR ( Amer) 57 L Est GFR (MDRD) Non-Af 47 L Glucose 91 POC Glucose 214 H 106 Calcium 8.0 L 02/24/19 02/24/19 02/24/19 05:50 11:46 17:56 WBC 7.9 RBC 2.52 L Hgb 7.3 L Hct 22.0 L MCV 87 MCH 29.0 MCHC 33.3 RDW 17.7 H Plt Count 109 L Lymph % (Auto) 5.8 L [place] % (Auto) 3.1 Eos % (Auto) 0.2 Baso % (Auto) 0.1 Absolute Neuts (auto) 7.1 Absolute Lymphs (auto) 0.5 Absolute Monos (auto) 0.2 Absolute Eos (auto) 0.0 Absolute Basos (auto) 0.0 Seg Neutrophils % 90.8 H Carbonic Acid HCO3/H2CO3 Ratio ABG pH ABG pCO2 ABG pO2 ABG HCO3 ABG Total CO2 ABG O2 Saturation ABG Base Excess FiO2 Sodium Potassium Chloride Carbon Dioxide Anion Gap BUN Creatinine Est GFR ( Amer) Est GFR (MDRD) Non-Af Glucose POC Glucose 126 H 209 H Calcium 02/24/19 23:03 WBC RBC Hgb Hct MCV MCH MCHC RDW Plt Count Lymph % (Auto) [place] % (Auto) Eos % (Auto) Baso % (Auto) Absolute Neuts (auto) Absolute Lymphs (auto) Absolute Monos (auto) Absolute Eos (auto) Absolute Basos (auto) Seg Neutrophils % Carbonic Acid 1.39 H HCO3/H2CO3 Ratio 22:1 ABG pH 7.46 H ABG pCO2 46.2 H ABG pO2 53.2 L ABG HCO3 31.8 H ABG Total CO2 33.2 H ABG O2 Saturation 88.9 L ABG Base Excess 7.1 FiO2 4L Sodium Potassium Chloride Carbon Dioxide Anion Gap BUN Creatinine Est GFR ( Amer) Est GFR (MDRD) Non-Af Glucose POC Glucose Calcium Chest X-Ray 02/08/19 00:00 IMPRESSION: Slight advancement of endotracheal tube. Otherwise no change. Chest X-Ray 02/08/19 00:00 IMPRESSION: NO PNEUMOTHORAX FOLLOWING CENTRAL LINE PLACEMENT. OTHERWISE NO CHANGE. Chest X-Ray 02/08/19 03:15 IMPRESSION: Cardiomegaly. Endotracheal and enteric tubes are in place. Postsurgical changes of the mediastinum. Airspace opacities right lung base. copyright 2010 [employer]- All Rights Reserved Chest CT 02/10/19 00:00 IMPRESSION: No pneumothorax. No pleural effusions. Bibasilar consolidation in both lower lobes. Slightly increased interstitial thickening, basilar predominance. Scattered pulmonary cysts and ground-glass opacities are again noted. Tubes and lines in expected positions. Chest X-Ray 02/12/19 00:00 IMPRESSION: 1. Bilateral perihilar airspace consolidation which may be due to edema, atelectasis or pneumonia. 2. Marked cardiomegaly. 3. Remote postsurgical changes of the mediastinum. 4. Life support lines and tubes as described above. Chest X-Ray 02/13/19 06:00 IMPRESSION: STABLE APPEARANCE OF THE CHEST. SUPPORT DEVICES UNCHANGED. Chest X-Ray 02/14/19 06:00 IMPRESSION: Mildly worsened bibasilar predominant opacities, likely edema although infection not excluded. Stable support lines and tubes as above. Chest X-Ray 02/15/19 03:06 IMPRESSION: Diffuse persistent but improving interstitial and alveolar opacities throughout both lungs. Stable cardiomegaly. Chest X-Ray 02/16/19 06:00 IMPRESSION: Unchanged radiographic appearance of the chest. KUB X-Ray 02/16/19 15:49 IMPRESSION: The tip and side hole of the enteric tube project within the gastric lumen. Chest X-Ray 02/17/19 06:00 IMPRESSION: Findings most consistent with congestive failure an asymmetric pulmonary edema. Slightly improved. SUPPORT DEVICE(S) IN EXPECTED LOCATIONS. Chest X-Ray 02/18/19 00:00 IMPRESSION: New left IJ line with the tip overlying the proximal SVC. Consider advancement 3-4 cm. KUB X-Ray 02/18/19 00:00 IMPRESSION: NG tube tip in the fundus of the stomach. Chest X-Ray 02/19/19 06:00 IMPRESSION: Tubes and lines in good positioning. Stable marked cardiomegaly and mild residual alveolar and interstitial infiltrates Chest X-Ray 02/20/19 00:00 IMPRESSION: STABLE APPEARANCE OF THE CHEST. SUPPORT DEVICES UNCHANGED. IMPRESSION/RECOMMENDATION: 1. Acute on chronic respiratory failure. This is multifactorial secondary to the causes listed below. Continue ventilator support and supplemental oxygen. 2. Acute on chronic systolic heart failure. Patient with LV ejection fraction of 25%. Agree with continuing aggressive diuresis with Lasix. And continue the patient's Entresto and beta-rip. The patient is off milrinone. 3. Acute exacerbation COPD: Continue bronchodilators and ventilatory support. 4. MRSA pneumonia: Continue antibiotics. 5. Amiodarone has been discontinued due to suspected pulmonary toxicity but is a finishing the race to walk 6. Acute on chronic kidney disease: Watch renal function as we implement aggressive diuresis. At present patient has chronic kidney disease stage III with a GFR of 43 mL per per minute. 7. Cardiomyopathy with severely reduced LV ejection fraction. Continue milrinone. 8. Paroxysmal atrial fibrillation: Continue beta-rip and Eliquis. 9. History of ventricular tachycardia, The patient has an AICD placed. If there is recurrence of ventricular tachycardia or major ventricular ectopic activity then would start the patient on small dose of sotalol. Would avoid amiodarone. 10. Hypertension: Blood pressure well controlled, on current medications. 11. Coronary artery disease: History of NV and history of coronary bypass graft surgery. No evidence of acute coronary syndrome/non-ST ST elevation NV this admission. 12. Obstructive sleep apnea. Note patient is noncompliant with CPAP. Most likely has significant pulmonary hypertension. 13. Hypokalemia: Replace potassium. 14. AICD placement: Note the patient's basal rate is around 60 bpm. If the patient's heart failure continues then would recommend increasing the basal heart rate to 80 bpm to help combat the heart failure along with diuretics. 15. MRSA bacteremia: Continue antibiotics. Repeat blood cultures are positive again for MRSA. With the lead insertion site showing fibrinous changes, and with the repeat culture showing MRSA there is high suspicion for infection of the AICD leads. Hence employment counselor is strongly recommending that the patient be transferred to [facility] for explantation of the AICD system. Interrogation of the AICD shows that it is functioning normally. Patient is reviewed. Medications adjusted. Medical regimen and management plan discussed with the employment counselor. Medical decision making today is of high complexity. This is in view of the medication changes. 40 minutes spent as patient more than 50% of time spent in direct patient care. Will follow.
[2019-02-24 23:15] LABS: ARTERIAL BLOOD BASE EXCESS 7.1 mmol/L; ARTERIAL BLOOD H2CO3 1.39 mmol/L (1.05-1.35); ARTERIAL BLOOD HCO3 31.8 mmol/L (20-24); ARTERIAL BLOOD O2 SATURATION 88.9 % (94-98); ARTERIAL BLOOD PCO2 46.2 mmHg (35-45); ARTERIAL BLOOD PH 7.46 (7.35-7.45); ARTERIAL BLOOD PO2 53.2 mmHg (80-100); ARTERIAL BLOOD TOTAL CO2 33.2 mmol/L (21-25)
[2019-02-24 23:18] LABS: ARTERIAL BLOOD FIO2 4L
[2019-02-25] MEDS: ACETAMINOPHEN 325 MG TABLET PO PRN ×2 (00:25→16:38)
[2019-02-25] MEDS: IPRATROPIUM/ALBUTEROL 0.5-2.5 MG/3 ML AMPUL NEB PRN ×3 (00:52→15:32)
[2019-02-25] MEDS: ALBUTEROL SULFATE 0.083% NEB 2.5 MG/3 ML AMPUL NEB PRN ×4 (01:09→23:28)
--- NOTE | 2019-02-25 01:23 | RADIOLOGY REPORT (SQ) ---
EXAM DESCRIPTION: XR CHEST 1 VIEW COMPLETED DATE/TME: 02/25/2019 00:00 CLINICAL HISTORY: 48 years, Female, hypoxia, increased resp rate, SOB COMPARISON: 02/24/2019 chest NUMBER OF VIEWS: 1 TECHNIQUE: Portable chest LIMITATIONS: None. FINDINGS: Stable cardiomegaly and postsurgical change. Diffuse interstitial edema. Osteopenia. No pneumothorax IMPRESSION: Cardiomegaly with diffuse interstitial edema copyright 2010 [employer]- All Rights Reserved
[2019-02-25] MEDS ORDERED: ALBUTEROL SULFATE 0.083% NEB 2.5 MG/3 ML AMPUL NEB ONE (01:30)
[2019-02-25] MEDS ORDERED: FUROSEMIDE INJ/PF 20 MG/2 ML SDV IV ONE (01:30)
[2019-02-25] MEDS: POTASSI CL 20 MEQ/50 ML RIDER 20 MEQ/50 ML RTUPB IV SCH ×2 (01:34→03:09)
[2019-02-25] MEDS: INSULIN LISPRO 100 UNIT/ML 3 ML VIAL SUBCUT SCH ×5 (03:12→23:37)
[2019-02-25] MEDS: VANCOMYCIN HCL 1,000 MG in DEXTROSE 5%-WATER 250 ML IV SCH ×2 (06:02→17:53)
[2019-02-25 06:08] LABS: ABSOLUTE LYMPHOCYTES (AUTO) 0.6 10^3/uL (0.5-4.7); ABSOLUTE MONOCYTES (AUTO) 0.3 10^3/uL (0.1-1.4); ABSOLUTE NEUT (AUTO) 5.7 10^3/uL (1.7-8.2); BASOPHILS % (AUTO) 0.3 % (0-2); HEMATOCRIT 21.1 % (36.0-47.0); LYMPHOCYTES % (AUTO) 9.8 % (13-45); MEAN CORPUSCULAR HEMOGLOBIN 28.9 pg (27.0-33.4); MEAN CORPUSCULAR HGB CONC 32.9 g/dL (32.0-36.0); MEAN CORPUSCULAR VOLUME 88 fl (80-97); MONOCYTES % (AUTO) 3.9 % (3-13); PLATELET COUNT 126 10^3/uL (150-450); RED BLOOD COUNT 2.41 10^6/uL (3.72-5.28); RED CELL DISTRIBUTION WIDTH 17.7 % (11.5-14.0); TOTAL CELLS COUNTED % (AUTO) 100 %; WHITE BLOOD COUNT 6.6 10^3/uL (4.0-10.5)
[2019-02-25 06:13] LABS: HEMOGLOBIN 6.9 g/dL (12.0-15.5)
[2019-02-25 06:26] LABS: ANION GAP 7 (5-19); BLOOD UREA NITROGEN 14 mg/dL (7-20); CALCIUM 7.9 mg/dL (8.4-10.2); CARBON DIOXIDE 34 mmol/L (22-30); CHLORIDE 100 mmol/L (98-107); GLUCOSE 103 mg/dL (75-110); POTASSIUM 3.2 mmol/L (3.6-5.0)
[2019-02-25 06:30] LABS: VANCOMYCIN,TROUGH 20.9 ug/mL (5.0-20.0)
[2019-02-25] MEDS: AMINO AC/PROTEIN HYDR/WHEY PRO 11 GM/45 ML PKT NG SCH (10:14)
[2019-02-25] MEDS: NITROGLYCERIN 5 MG (0.2 MG/HR) PATCH.TD24 TD SCH (10:23)
[2019-02-25] MEDS: POTASSIUM CHLORIDE 10 MEQ TABLET.ER PO SCH (10:24)
[2019-02-25] MEDS: METOPROLOL TARTRATE 50 MG TABLET NG SCH ×2 (10:24→21:06)
[2019-02-25] MEDS: SACUBITRIL/VALSARTAN 97 MG/103 MG TABLET NG SCH (10:24)
[2019-02-25] MEDS: BUSPIRONE HCL 10 MG TABLET NG SCH ×2 (10:24→21:09)
[2019-02-25] MEDS: FAMOTIDINE 20 MG TABLET PO SCH ×2 (11:47→21:09)
--- NOTE | 2019-02-25 12:13 | PDOC CRITICAL CARE PROG REPORT ---
General Date:: 02/25/19 - Critical Care Attending Progress Note Resuscitation Status: Full Code Medical Power of Liner Worker: Daughter, Aparna Events in the past 12 to 24 Hours:: Pt started on HFNC and got lasix overnight. Reason for ICU Addmission:: Respiratory failure - Medications: Medications reviewed and adjusted accordingly: Yes Physical Exam Vital Signs: Temp Pulse Resp BP Pulse Ox 99.4 F 70 20 125/67 100 02/25/19 08:00 02/25/19 09:57 02/25/19 11:52 02/25/19 10:01 02/25/19 11:52 Intake & Output 02/24/19 02/25/19 02/26/19 06:59 06:59 06:59 Intake Total 830 1140 240 Output Total 0248 1675 500 Balance -1945 -535 -260 Weight 116.6 kg 116.6 kg Weight/Height Weight 116.6 kg Height 5 ft 4 in General appearance: PRESENT: no acute distress, well-developed, well-nourished, other - awake, alert, talkative Head exam: PRESENT: atraumatic, normocephalic Respiratory exam: PRESENT: rhonchi, unlabored Cardiovascular exam: PRESENT: irregular rhythm GI/Abdominal exam: PRESENT: soft Extremities exam: PRESENT: +2 edema Neurological exam: PRESENT: alert, awake Laboratory/Radiographs Laboratory Results: 02/25/19 05:50 02/25/19 05:50 02/24/19 02/25/19 02/25/19 23:03 05:50 05:50 WBC 6.6 RBC 2.41 L Hgb 6.9 L Hct 21.1 L MCV 88 MCH 28.9 MCHC 32.9 RDW 17.7 H Plt Count 126 L Seg Neutrophils % 86.0 H Carbonic Acid 1.39 H HCO3/H2CO3 Ratio 22:1 ABG pH 7.46 H ABG pCO2 46.2 H ABG pO2 53.2 L ABG HCO3 31.8 H ABG O2 Saturation 88.9 L ABG Base Excess 7.1 FiO2 4L Sodium 141.0 Potassium 3.2 L Chloride 100 Carbon Dioxide 34 H Anion Gap 7 BUN 14 Creatinine 1.30 H Est GFR ( Amer) 53 L Glucose 103 Calcium 7.9 L 02/08/19 02/08/19 02/08/19 04:06 04:06 05:30 Creatine Kinase Cancelled 33 CK-MB (CK-2) Cancelled Troponin I Cancelled NT-Pro-B Natriuret Pep Cancelled 02/08/19 02/11/19 02/13/19 05:45 03:18 01:22 Creatine Kinase CK-MB (CK-2) < 0.22 Troponin I 0.043 NT-Pro-B Natriuret Pep 7610 H 1970 H 01899 H Impressions: Chest CT 02/10/19 00:00 IMPRESSION: No pneumothorax. No pleural effusions. Bibasilar consolidation in both lower lobes. Slightly increased interstitial thickening, basilar predominance. Scattered pulmonary cysts and ground-glass opacities are again noted. Tubes and lines in expected positions. KUB X-Ray 02/18/19 00:00 IMPRESSION: NG tube tip in the fundus of the stomach. Chest X-Ray 02/25/19 00:00 IMPRESSION: Cardiomegaly with diffuse interstitial edema copyright 2011 [employer]- All Rights Reserved Assessment and Plan - Diagnosis (1) Acute on chronic systolic (congestive) heart failure Is this a current diagnosis for this admission?: Yes (2) ARDS (adult respiratory distress syndrome) Is this a current diagnosis for this admission?: Yes (3) Acute respiratory failure with hypoxia Is this a current diagnosis for this admission?: Yes (4) Ischemic cardiomyopathy with implantable cardioverter-defibrillator (ICD) Is this a current diagnosis for this admission?: Yes (5) MRSA (methicillin resistant staphylococcus aureus) pneumonia Qualifiers: Laterality: bilateral Lung location: unspecified part of lung Qualified Code(s): J15.212 - Pneumonia due to Methicillin resistant Staphylococcus aureus Is this a current diagnosis for this admission?: Yes (6) Acute kidney injury Is this a current diagnosis for this admission?: Yes (7) Acute lung injury associated with vaping Is this a current diagnosis for this admission?: Yes (8) Atrial fibrillation Qualifiers: Atrial fibrillation type: longstanding persistent Qualified Code(s): I48.11 - Longstanding persistent atrial fibrillation Is this a current diagnosis for this admission?: Yes (9) Amiodarone toxicity Qualifiers: Encounter type: initial encounter Injury intent: accidental or unintentional Qualified Code(s): T46.2X1A - Poisoning by other antidysrhythmic drugs, accidental (unintentional), initial encounter Is this a current diagnosis for this admission?: Yes Plan Summary: Assessment: Critically ill 48 yo woman with acute respiratory failure, MRSA PNA, Vaping associated lung injury, ARDS, acute on chronic systolic CHF, cardiomyopathy, PAF, infected AICD leads, amiodarone pulmonary lung toxicity, COPD, severe sepsis, MRSA bacteremia. Plan: 1. Respiratory: acute respirtory failure. Pt extubated 02/20. Worsening hypoxia. Continue HFNC 2. Pulmonary: MRSA PNA, ARDS-resolved, vaping associated lung injury, amiodarone lung toxicity. ATBX,bronchodilators. Off steroids 3. CV: acute on chronic systolic CHF, cardiomyopathy. EF 25%, PAF, AICD with infected leads. Is off milrinone. Is on lopressor, entresto, Nitro past. Stopped heparin drip for her afib 3 days ago due to thrombocytopenia. 4. ID: severe sepsis, MRSA PNA. Infected AICD leads. MRSA bacteremia. Remains febrile. Vancomycin. Blood cultures still positive with MRSA. New central line inserted 02/24. New cultures obtained yesterday. ID physician from [facility] following pt.. 5. Renal/Electrolytes: BENNY. Cr is 1.3. Metabolic alkalosis due to diuresis. 6. Heme: Anemia.Got one unit of PRBC 2 days ago for Hg of 6.3. Hg is 6.9 today. Will monitor. Thrombocytopenia, resolving. Off heparin infusion. 7 GI: GI bleed. EGD on 02/18 showed gastritis. Colonoscopy 02/20, negative. Will start protonix 8. Nutrition: regular diet 9. Access: new right IJ central line placed yesterday 10 Endocrine: . Accuchecks, SSI 11. Prophylaxis: scds. No pharmacologic DVT prophylaxis b/c of anemia and thr ombocytopenia 12. Continue to monitor in ICU. Critical care time= 35 min, excluding procedures Critical Time Critical Time (minutes): 35 Level of Care: ICU -: 1. The care of a critical patient is a dynamic process. This note is a school admissions representative synopsis but static in nature. The timeframe for treatments given in order is not necessarily the actual time these treatments may have been done. 2. This patient requires critical care secondary to ongoing requirements for therapy not offered or safe outside the critical care environment. Transfer to a lower level of care will result in altered life or limb morbidity and mortality. 3. Multidisciplinary rounds completed. 4. ABCDE bundle addressed.
[2019-02-25 14:35] LABS: ANION GAP 9 (5-19); BLOOD UREA NITROGEN 13 mg/dL (7-20); CALCIUM 7.9 mg/dL (8.4-10.2); CARBON DIOXIDE 33 mmol/L (22-30); CHLORIDE 97 mmol/L (98-107); GLUCOSE 150 mg/dL (75-110); POTASSIUM 3.6 mmol/L (3.6-5.0)
[2019-02-25] MEDS ORDERED: NORMAL SALINE INJ/PF 0.9% 10 ML SDV IV PRN (16:39)
[2019-02-25] MEDS: PANTOPRAZOLE SODIUM 40 MG VIAL IV SCH (21:09)
--- NOTE | 2019-02-25 21:45 | Progress Note ---
Provider Note Provider Note: CARDIOLOGY PROGRESS NOTE by Dr. Griselda Martin on 02/25/2019. Subjective: The patient continues to show some improvement. There is no recurrence of atrial fibrillation or ventricular arrhythmias. There is no firing of AICD. The patient states that shortness of breath is much improved compared to the initial few days. She denies any PND orthopnea. The patient does have a cough but is not bringing up any sputum. The patient's blood cultures done recently shows that the culture done on 02/24/2019 is negative for any growth of any bacteria. In view of the patient's hemoglobin being low the patient's anticoagulation has been stopped. Physical EXAMINATION: The patient is morbidly obese in no acute distress Selected Entries 02/25/19 12:00 Temperature 100.7 F H Temperature Axillary Source Heart Rate ( 74 Monitors) Respiratory 25 H Rate Blood Pressure 132/84 H Blood Pressure 100 Mean O2 Sat by Pulse 96 Oximetry Oxygen Delivery High Flow Nasal Method ( Cannula includes room air) Percent of 31 Oxygen 02/24/19 18:12 Blood Culture - Preliminary Blood NO GROWTH IN 24 HOURS 02/24/19 13:58 Blood Culture - Preliminary Blood NO GROWTH IN 24 HOURS 02/18/19 09:14 Blood Culture - Final Blood NO GROWTH IN 5 DAYS HEAD: Is atraumatic normocephalic. EYES: Pupils are equal round regular reactive to light. HEENT is negative. SKIN: There is no skin rashes or skin lesions. There is no particular ecchymosis. NECK: Is supple. There is mild JVD present. Carotids are equal there is no bruits. There is no lymphadenopathy. There is no goiter. There is no accessory muscle respiration use. Trachea central. LUNGS: Shows bibasilar rales of CHF. There are no rhonchi or wheezing. There is also dry crackles in the right lower lobe. There is diminished air entry. On percussion there is hyperresonance. On palpation there is no chest wall tenderness. HEART: S1-S2 is heard. There is no S3 gallop. There is no S4 gallop. There is systolic murmur mitral regurgitation tricuspid regurgitation present. There is no aortic stenosis murmur. There is no aortic insufficiency murmur. There is no rub. ABDOMEN: Is obese. Nontender. There is no hepatosplenomegaly. Bowel sounds are well heard. There is no rebound guarding or rigidity. EXTREMITIES: Femorals are deep. Femorals are diminished. There is no femoral bruits. There is decreased leg pulses. There is mild pedal edema. There is no DVT or cellulitis. There is no calf tenderness. INSTALLMENT AGENT: The patient is awake. She is slightly drowsy. She responds appropriately to verbal requests. Moves all 4 extremities. PSYCHIATRIC: The patient does not appear to be agitated or anxious. Labs- All tests 24 hr 02/25/19 02/25/19 02/25/19 01:40 05:50 05:50 WBC 6.6 RBC 2.41 L Hgb 6.9 L Hct 21.1 L MCV 88 MCH 28.9 MCHC 32.9 RDW 17.7 H Plt Count 126 L Lymph % (Auto) 9.8 L [place] % (Auto) 3.9 Eos % (Auto) 0.0 Baso % (Auto) 0.3 Absolute Neuts (auto) 5.7 Absolute Lymphs (auto) 0.6 Absolute Monos (auto) 0.3 Absolute Eos (auto) 0.0 Absolute Basos (auto) 0.0 Seg Neutrophils % 86.0 H Sodium 141.0 Potassium 3.2 L Chloride 100 Carbon Dioxide 34 H Anion Gap 7 BUN 14 Creatinine 1.30 H Est GFR ( Amer) 53 L Est GFR (MDRD) Non-Af 44 L Glucose 103 POC Glucose 124 H Calcium 7.9 L Time Trough Drawn Vancomycin Trough 02/25/19 02/25/19 02/25/19 05:50 11:50 13:50 WBC RBC Hgb Hct MCV MCH MCHC RDW Plt Count Lymph % (Auto) [place] % (Auto) Eos % (Auto) Baso % (Auto) Absolute Neuts (auto) Absolute Lymphs (auto) Absolute Monos (auto) Absolute Eos (auto) Absolute Basos (auto) Seg Neutrophils % Sodium 139.1 Potassium 3.6 Chloride 97 L Carbon Dioxide 33 H Anion Gap 9 BUN 13 Creatinine 1.38 H Est GFR ( Amer) 50 L Est GFR (MDRD) Non-Af 41 L Glucose 150 H POC Glucose 144 H Calcium 7.9 L Time Trough Drawn 0550 Vancomycin Trough 20.9 H 02/25/19 02/25/19 17:43 23:34 WBC RBC Hgb Hct MCV MCH MCHC RDW Plt Count Lymph % (Auto) [place] % (Auto) Eos % (Auto) Baso % (Auto) Absolute Neuts (auto) Absolute Lymphs (auto) Absolute Monos (auto) Absolute Eos (auto) Absolute Basos (auto) Seg Neutrophils % Sodium Potassium Chloride Carbon Dioxide Anion Gap BUN Creatinine Est GFR ( Amer) Est GFR (MDRD) Non-Af Glucose POC Glucose 152 H 155 H Calcium Time Trough Drawn Vancomycin Trough Chest X-Ray 02/08/19 00:00 IMPRESSION: Slight advancement of endotracheal tube. Otherwise no change. Chest X-Ray 02/08/19 00:00 IMPRESSION: NO PNEUMOTHORAX FOLLOWING CENTRAL LINE PLACEMENT. OTHERWISE NO CHANGE. Chest X-Ray 02/08/19 03:15 IMPRESSION: Cardiomegaly. Endotracheal and enteric tubes are in place. Postsurgical changes of the mediastinum. Airspace opacities right lung base. copyright 2010 [email or web address]- All Rights Reserved Chest CT 02/10/19 00:00 IMPRESSION: No pneumothorax. No pleural effusions. Bibasilar consolidation in both lower lobes. Slightly increased interstitial thickening, basilar predominance. Scattered pulmonary cysts and ground-glass opacities are again noted. Tubes and lines in expected positions. Chest X-Ray 02/12/19 00:00 IMPRESSION: 1. Bilateral perihilar airspace consolidation which may be due to edema, atelectasis or pneumonia. 2. Marked cardiomegaly. 3. Remote postsurgical changes of the mediastinum. 4. Life support lines and tubes as described above. Chest X-Ray 02/13/19 06:00 IMPRESSION: STABLE APPEARANCE OF THE CHEST. SUPPORT DEVICES UNCHANGED. Chest X-Ray 02/14/19 06:00 IMPRESSION: Mildly worsened bibasilar predominant opacities, likely edema although infection not excluded. Stable support lines and tubes as above. Chest X-Ray 02/15/19 03:06 IMPRESSION: Diffuse persistent but improving interstitial and alveolar opacities throughout both lungs. Stable cardiomegaly. Chest X-Ray 02/16/19 06:00 IMPRESSION: Unchanged radiographic appearance of the chest. KUB X-Ray 02/16/19 15:49 IMPRESSION: The tip and side hole of the enteric tube project within the gastric lumen. Chest X-Ray 02/17/19 06:00 IMPRESSION: Findings most consistent with congestive failure an asymmetric pulmonary edema. Slightly improved. SUPPORT DEVICE(S) IN EXPECTED LOCATIONS. Chest X-Ray 02/18/19 00:00 IMPRESSION: New left IJ line with the tip overlying the proximal SVC. Consider advancement 3-4 cm. KUB X-Ray 02/18/19 00:00 IMPRESSION: NG tube tip in the fundus of the stomach. Chest X-Ray 02/19/19 06:00 IMPRESSION: Tubes and lines in good positioning. Stable marked cardiomegaly and mild residual alveolar and interstitial infiltrates Chest X-Ray 02/20/19 00:00 IMPRESSION: STABLE APPEARANCE OF THE CHEST. SUPPORT DEVICES UNCHANGED. Chest X-Ray 02/25/19 00:00 IMPRESSION: Cardiomegaly with diffuse interstitial edema The patient blood culture on 02/24/2019 shows no growth. IMPRESSION/RECOMMENDATION: 1. Acute on chronic respiratory failure. This is multifactorial secondary to the causes listed below. Continue ventilator support and supplemental oxygen. 2. Acute on chronic systolic heart failure. Patient with LV ejection fraction of 25%. Agree with continuing aggressive diuresis with Lasix. And continue the patient's Entresto and beta-rip. The patient is off milrinone. No chest x- ray suggestive of CHF. Would recommend restarting the patient's diuretics. 3. Acute exacerbation COPD: Continue bronchodilators and ventilatory support. 4. MRSA pneumonia: Continue antibiotics. 5. Amiodarone has been discontinued due to suspected pulmonary toxicity but is a finishing the race to walk 6. Acute on chronic kidney disease: Watch renal function as we implement aggressive diuresis. At present patient has chronic kidney disease stage III with a GFR of 43 mL per per minute. 7. Cardiomyopathy with severely reduced LV ejection fraction. Continue milrinone. 8. Paroxysmal atrial fibrillation: Continue beta-rip and Eliquis. 9. History of ventricular tachycardia, The patient has an AICD placed. If there is recurrence of ventricular tachycardia or major ventricular ectopic activity then would start the patient on small dose of sotalol. Would avoid amiodarone. 10. Hypertension: Blood pressure well controlled, on current medications. 11. Coronary artery disease: History of GA and history of coronary bypass graft surgery. No evidence of acute coronary syndrome/non-ST ST elevation GA this admission. 12. Obstructive sleep apnea. Note patient is noncompliant with CPAP. Most likely has significant pulmonary hypertension. 13. Hypokalemia: Replace potassium. 14. AICD placement: Note the patient's basal rate is around 60 bpm. If the patient's heart failure continues then would recommend increasing the basal heart rate to 80 bpm to help combat the heart failure along with diuretics. 15. MRSA bacteremia: Continue antibiotics. Repeat blood cultures are positive again for MRSA. With the lead insertion site showing fibrinous changes, and wit h the repeat culture showing MRSA there is high suspicion for infection of the AICD leads. Hence correctional casework specialist is strongly recommending that the patient be transferred to [facility] for explantation of the AICD system. Interrogation of the AICD shows that it is functioning normally. Patient is reviewed. Medications adjusted. Medical regimen and management plan discussed with the correctional casework specialist. Medical decision making today is of moderate complexity. This is in view of the medication changes. 40 minutes spent as patient more than 50% of time spent in direct patient care. Will follow. .
[2019-02-26] MEDS: ALBUTEROL SULFATE 0.083% NEB 2.5 MG/3 ML AMPUL NEB PRN ×2 (04:31→20:10)
[2019-02-26 05:18] LABS: ABSOLUTE LYMPHOCYTES (AUTO) 0.9 10^3/uL (0.5-4.7); ABSOLUTE MONOCYTES (AUTO) 0.4 10^3/uL (0.1-1.4); ABSOLUTE NEUT (AUTO) 7.2 10^3/uL (1.7-8.2); BASOPHILS % (AUTO) 0.1 % (0-2); HEMATOCRIT 21.2 % (36.0-47.0); HEMOGLOBIN 6.9 g/dL (12.0-15.5); LYMPHOCYTES % (AUTO) 10.9 % (13-45); MEAN CORPUSCULAR HEMOGLOBIN 29.2 pg (27.0-33.4); MEAN CORPUSCULAR HGB CONC 32.7 g/dL (32.0-36.0); MEAN CORPUSCULAR VOLUME 89 fl (80-97); MONOCYTES % (AUTO) 5.1 % (3-13); PLATELET COUNT 140 10^3/uL (150-450); RED BLOOD COUNT 2.38 10^6/uL (3.72-5.28); RED CELL DISTRIBUTION WIDTH 18.1 % (11.5-14.0); SEGMENTED NEUTROPHILS % (AUTO) 83.9 % (42-78); TOTAL CELLS COUNTED % (AUTO) 100 %; WHITE BLOOD COUNT 8.5 10^3/uL (4.0-10.5)
[2019-02-26] MEDS: INSULIN LISPRO 100 UNIT/ML 3 ML VIAL SUBCUT SCH ×4 (05:48→23:16)
[2019-02-26 05:51] LABS: ANION GAP 7 (5-19); BLOOD UREA NITROGEN 12 mg/dL (7-20); CALCIUM 7.9 mg/dL (8.4-10.2); CARBON DIOXIDE 33 mmol/L (22-30); CHLORIDE 99 mmol/L (98-107); GLUCOSE 120 mg/dL (75-110); POTASSIUM 3.5 mmol/L (3.6-5.0)
[2019-02-26] MEDS: ACETAMINOPHEN 325 MG TABLET PO PRN (05:52)
[2019-02-26] MEDS: VANCOMYCIN HCL 1,000 MG in DEXTROSE 5%-WATER 250 ML IV SCH ×2 (05:52→18:05)
[2019-02-26] MEDS: IPRATROPIUM/ALBUTEROL 0.5-2.5 MG/3 ML AMPUL NEB PRN (07:59)
[2019-02-26] MEDS ORDERED: LORAZEPAM INJ 2 MG/1 ML VIAL ONE ×2 (09:00→12:43)
[2019-02-26] MEDS: PANTOPRAZOLE SODIUM 40 MG VIAL IV SCH ×2 (09:30→21:35)
[2019-02-26] MEDS: POTASSIUM CHLORIDE 10 MEQ TABLET.ER PO SCH (09:32)
[2019-02-26] MEDS: SACUBITRIL/VALSARTAN 97 MG/103 MG TABLET NG SCH ×2 (09:33→21:38)
[2019-02-26] MEDS: METOPROLOL TARTRATE 50 MG TABLET NG SCH ×2 (09:33→21:36)
[2019-02-26] MEDS: BUSPIRONE HCL 10 MG TABLET NG SCH ×2 (09:33→21:35)
[2019-02-26] MEDS: NITROGLYCERIN 5 MG (0.2 MG/HR) PATCH.TD24 TD SCH (09:33)
--- NOTE | 2019-02-26 12:01 | PDOC CRITICAL CARE PROG REPORT ---
General Date:: 02/26/19 - Critical Care Attending Note Resuscitation Status: Full Code Medical Power of Behavioral Scientist: Daughter, Aparna Events in the past 12 to 24 Hours:: Pt reports to staff that she feels anxious. Reason for ICU Addmission:: Respiratory failure Physical Exam Vital Signs: Temp Pulse Resp BP Pulse Ox 99.5 F 85 23 H 138/76 H 98 02/26/19 08:00 02/26/19 10:00 02/26/19 11:01 02/26/19 11:00 02/26/19 10:59 Intake & Output 02/25/19 02/26/19 02/27/19 06:59 06:59 06:59 Intake Total 1140 1298 120 Output Total 1675 2700 0 Balance -535 -1402 120 Weight 116.6 kg 117 kg Weight/Height Weight 117 kg Height 5 ft 4 in General appearance: PRESENT: no acute distress, well-developed, well-nourished Head exam: PRESENT: atraumatic, normocephalic Respiratory exam: PRESENT: decreased breath sounds, unlabored Cardiovascular exam: PRESENT: irregular rhythm GI/Abdominal exam: PRESENT: soft Gentrourinary exam: PRESENT: indwelling catheter Extremities exam: PRESENT: +2 edema Laboratory/Radiographs Laboratory Results: 02/26/19 04:20 02/26/19 04:20 02/25/19 02/26/19 02/26/19 13:50 04:20 04:20 WBC 8.5 RBC 2.38 L Hgb 6.9 L Hct 21.2 L MCV 89 MCH 29.2 MCHC 32.7 RDW 18.1 H Plt Count 140 L Seg Neutrophils % 83.9 H Sodium 139.1 139.0 Potassium 3.6 3.5 L Chloride 97 L 99 Carbon Dioxide 33 H 33 H Anion Gap 9 7 BUN 13 12 Creatinine 1.38 H 1.29 H Est GFR ( Amer) 50 L 54 L Glucose 150 H 120 H Calcium 7.9 L 7.9 L 02/08/19 02/08/19 02/08/19 04:06 04:06 05:30 Creatine Kinase Cancelled 33 CK-MB (CK-2) Cancelled Troponin I Cancelled NT-Pro-B Natriuret Pep Cancelled 02/08/19 02/11/19 02/13/19 05:45 03:18 01:22 Creatine Kinase CK-MB (CK-2) < 0.22 Troponin I 0.043 NT-Pro-B Natriuret Pep 7610 H 1970 H 12272 H Impressions: Chest CT 02/10/19 00:00 IMPRESSION: No pneumothorax. No pleural effusions. Bibasilar consolidation in both lower lobes. Slightly increased interstitial thickening, basilar predominance. Scattered pulmonary cysts and ground-glass opacities are again noted. Tubes and lines in expected positions. KUB X-Ray 02/18/19 00:00 IMPRESSION: NG tube tip in the fundus of the stomach. Chest X-Ray 02/25/19 00:00 IMPRESSION: Cardiomegaly with diffuse interstitial edema copyright 2011 [employer]- All Rights Reserved Assessment and Plan - Diagnosis (1) Acute on chronic systolic (congestive) heart failure Is this a current diagnosis for this admission?: Yes (2) ARDS (adult respiratory distress syndrome) Is this a current diagnosis for this admission?: Yes (3) Acute respiratory failure with hypoxia Is this a current diagnosis for this admission?: Yes (4) Ischemic cardiomyopathy with implantable cardioverter-defibrillator (ICD) Is this a current diagnosis for this admission?: Yes (5) MRSA (methicillin resistant staphylococcus aureus) pneumonia Qualifiers: Laterality: bilateral Lung location: unspecified part of lung Qualified Code(s): J15.212 - Pneumonia due to Methicillin resistant Staphylococcus aureus Is this a current diagnosis for this admission?: Yes (6) Acute kidney injury Is this a current diagnosis for this admission?: Yes (7) Acute lung injury associated with vaping Is this a current diagnosis for this admission?: Yes (8) Atrial fibrillation Qualifiers: Atrial fibrillation type: longstanding persistent Qualified Code(s): I48.11 - Longstanding persistent atrial fibrillation Is this a current diagnosis for this admission?: Yes (9) Amiodarone toxicity Qualifiers: Encounter type: initial encounter Injury intent: accidental or unintentional Qualified Code(s): T46.2X1A - Poisoning by other antidysrhythmic drugs, accidental (unintentional), initial encounter Is this a current diagnosis for this admission?: Yes Plan Summary: Assessment: Critically ill 48 yo woman with acute respiratory failure, MRSA PNA, Vaping associated lung injury, ARDS, acute on chronic systolic CHF, cardi omyopathy, PAF, infected AICD leads, amiodarone pulmonary lung toxicity, COPD, severe sepsis, MRSA bacteremia. Plan: 1. Respiratory: acute respirtory failure. Pt extubated 02/20. Stable on nasal cannula. 2. Pulmonary: MRSA PNA, ARDS-resolved, vaping associated lung injury, amiodarone lung toxicity. ATBX,bronchodilators. Off steroids 3. CV: acute on chronic systolic CHF, cardiomyopathy. EF 25%, PAF, AICD with infected leads. Is off milrinone. Is on lopressor, entresto, Nitro past. Stopped heparin drip for her afib 4 days ago due to thrombocytopenia. Will resume oral lasix. D/W Dr. Ragsdale 4. ID: severe sepsis, MRSA PNA. Infected AICD leads. MRSA bacteremia. Remains febrile. Vancomycin. Blood cultures still positive with MRSA. New central line inserted 02/24. New cultures obtained. ID physician from [facility] following pt.. 5. Renal/Electrolytes: BENNY. Cr is stable at 1.3 6. Heme: Anemia.Got one unit of PRBC 2 days ago for Hg of 6.3. Hg is 6.9 today. Will monitor. Thrombocytopenia, resolving. Off heparin infusion. 7 GI: GI bleed. EGD on 02/18 showed gastritis. Colonoscopy 02/20, negative. C ontinue IV protonix 8. Nutrition: regular diet 9. Access: new right IJ central line placed 02/24 10 Endocrine: Accuchecks, SSI 11. Prophylaxis: scds. No pharmacologic DVT prophylaxis b/c of anemia and thrombocytopenia 12. Continue to monitor in ICU. Critical Time Critical Time (minutes): 0 - no critical care time today Level of Care: ICU -: 1. The care of a critical patient is a dynamic process. This note is a traveling sales representative synopsis but static in nature. The timeframe for treatments given in order is not necessarily the actual time these treatments may have been done. 2. This patient requires critical care secondary to ongoing requirements for therapy not offered or safe outside the critical care environment. Transfer to a lower level of care will result in altered life or limb morbidity and mortality. 3. Multidisciplinary rounds completed. 4. ABCDE bundle addressed.
[2019-02-26] MEDS ORDERED: FUROSEMIDE 40 MG TABLET PO SCH (12:30)
[2019-02-26] MEDS ORDERED: FUROSEMIDE INJ/PF 40 MG/4 ML SDV ONE (12:36)
[2019-02-26] MEDS: LORAZEPAM INJ 2 MG/1 ML VIAL IV PRN ×2 (12:45→18:03)
[2019-02-26] MEDS ORDERED: MORPHINE SULFATE 10 MG/ML INJ ONE (12:57)
[2019-02-26] MEDS ORDERED: FUROSEMIDE INJ/PF 40 MG/4 ML SDV IV ONE (13:00)
[2019-02-26] MEDS ORDERED: ETOMIDATE INJ/PF 20 MG/10 ML SDV IV ONE (13:04)
[2019-02-26] MEDS ORDERED: PROPOFOL 1,000 MG/100 ML INFUS..BTL IV ONE (13:10)
[2019-02-26] MEDS: PROPOFOL 1,000 MG/100 ML INFUS..BTL IV PRN ×2 (13:15→13:54)
[2019-02-26] MEDS ORDERED: PHARMACY COMMUNICATION ORDER MC NR (13:30)
--- NOTE | 2019-02-26 13:30 | Progress Note ---
Provider Note Provider Note: Procedure: Endotracheal intubation. Indication: acute respiratory failure [employer]: Pt was pre-oxygenated via BVM. Pt was medicated with Etomidate 20 mg and Succinylcholine 100 mg. Pt was intubated with a 7.5 ET tube using the Glidescope. Tube placement was confirmed with good color change onthe ETCO2 detector. Pt tolerated the procedure wel. CXR pending.
--- NOTE | 2019-02-26 13:33 | Progress Note ---
Provider Note Provider Note: Pt became tachpyneic and diaphoretic. She stated that she was having a "panic attack". I placed pt on bipap and gave her lasix. She did not improve. I intubated the pt without difficulty. Will check post-intubation CXR and ABG. Will resume diuresis with lasix 40 mg IV BID. Critical care time= 35 min, exlcuding procedures.
--- NOTE | 2019-02-26 13:51 | RADIOLOGY REPORT (SQ) ---
EXAM DESCRIPTION: CHEST SINGLE VIEW COMPLETED DATE/TIME: 02/26/2019 1:40 pm REASON FOR STUDY: intubation COMPARISON: 02/25/2019 EXAM PARAMETERS: NUMBER OF VIEWS: One view. TECHNIQUE: Single frontal radiographic view of the chest acquired. RADIATION DOSE: NA LIMITATIONS: None. FINDINGS: LUNGS AND PLEURA: Pulmonary edema with slight improvement. MEDIASTINUM AND HILAR STRUCTURES: No masses. Contour normal. HEART AND VASCULAR STRUCTURES: Cardiomegaly. BONES: No acute findings. HARDWARE: Pacemaker/defibrillator. Sternotomy wires. Right internal jugular catheter remains in travis ce. An endotracheal tube is been placed. The tip is 5 cm above the bruna. And NG tube extends tow jerardo the stomach. OTHER: No other significant finding. IMPRESSION: Tubes and catheters as described. Cardiomegaly with pulmonary edema that shows slight i mprovement. TECHNICAL DOCUMENTATION: JOB ID: [id number] [employer]- All Rights Reserved Reading location - IP/workstation name: [email or web address]
--- NOTE | 2019-02-26 13:57 | RADIOLOGY REPORT (SQ) ---
EXAM DESCRIPTION: KUB/ABDOMEN (SINGLE VIEW) COMPLETED DATE/TIME: 02/26/2019 1:40 pm REASON FOR STUDY: Check Placement of NG Tube COMPARISON: 02/18/2019 NUMBER OF VIEWS: One view. TECHNIQUE: Supine radiographic image of the abdomen acquired. LIMITATIONS: None. FINDINGS: NG tube tip overlies body of stomach, side port near the GE junction above the diaphragm. Bibasilar subsegmental atelectasis. OTHER: No other significant finding. IMPRESSION: NG tube tip overlies body of stomach, side port near the GE junction above the diaphragm . TECHNICAL DOCUMENTATION: JOB ID: [id number] [id number] 2010 [employer]- All Rights Reserved Reading location - IP/workstation name: [email or web address]
[2019-02-26] MEDS: MORPHINE SULFATE 10 MG/ML INJ IV PRN (13:58)
[2019-02-26] MEDS: FUROSEMIDE INJ/PF 40 MG/4 ML SDV IV SCH ×2 (14:00→21:36)
[2019-02-26] MEDS ORDERED: SUCCINYLCHOLINE CHLORIDE INJ 200 MG/10 ML VIAL ONE (14:21)
--- NOTE | 2019-02-26 16:42 | Progress Note ---
Provider Note Provider Note: CARDIOLOGY PROGRESS NOTE by Dr. Griselda Martin on 02/26/2019. SUBJECTIVE: The patient went back in respiratory failure and had to be reintubated. There is no arrhythmia seen on the monitor. There is no firing of AICD. The patient had taken a sudden turn for the worse. Selected Entries 02/26/19 02/26/19 02/26/19 13:30 16:00 16:31 Temperature 99.3 F Heart Rate ( 61 Monitors) Respiratory 14 Rate Blood Pressure 92/60 L Blood Pressure 104/70 [Right Upper Arm] Blood Pressure 70 Mean Blood Pressure 81 Mean [Right Upper Arm] Blood Pressure Supine Position [Right Upper Arm] O2 Sat by Pulse 100 Oximetry Oxygen Delivery Mechanical Method ( Ventilator includes room air) Fraction of 60 Inspired Oxygen (FIO2) 02/26/19 17:31 Temperature Heart Rate ( Monitors) Respiratory 15 Rate Blood Pressure Blood Pressure [Right Upper Arm] Blood Pressure Mean Blood Pressure Mean [Right Upper Arm] Blood Pressure Position [Right Upper Arm] O2 Sat by Pulse Oximetry Oxygen Delivery Method ( includes room air) Fraction of Inspired Oxygen (FIO2) HEAD: Is atraumatic normocephalic. EYES: Pupils are equal round regular reactive to light. HEENT is negative. SKIN: There is no skin rashes or skin lesions. There is no particular ecchymosis. NECK: Is supple. There is mild JVD present. Carotids are equal there is no bruits. There is no lymphadenopathy. There is no goiter. There is no accessory muscle respiration use. Trachea central. LUNGS: Shows bibasilar rales of CHF. There are scattered rhonchi or wheezing. There is also dry crackles in the right lower lobe. There is diminished air entry. On percussion there is hyperresonance. On palpation there is no chest wall tenderness. HEART: S1-S2 is heard. There is no S3 gallop. There is no S4 gallop. There is systolic murmur mitral regurgitation tricuspid regurgitation present. There is no aortic stenosis murmur. There is no aortic insufficiency murmur. There is no rub. ABDOMEN: Is obese. Nontender. There is no hepatosplenomegaly. Bowel sounds are well heard. There is no rebound guarding or rigidity. EXTREMITIES: Femorals are deep. Femorals are diminished. There is no femoral bruits. There is decreased leg pulses. There is mild pedal edema. There is no DVT or cellulitis. There is no calf tenderness. SUPERVISOR FITTING and PSYCHIATRIC: Not examined due to patient being intubated. Labs- All tests 24 hr 02/26/19 02/26/19 02/26/19 04:20 04:20 05:47 WBC 8.5 RBC 2.38 L Hgb 6.9 L Hct 21.2 L MCV 89 MCH 29.2 MCHC 32.7 RDW 18.1 H Plt Count 140 L Lymph % (Auto) 10.9 L [place] % (Auto) 5.1 Eos % (Auto) 0.0 Baso % (Auto) 0.1 Absolute Neuts (auto) 7.2 Absolute Lymphs (auto) 0.9 Absolute Monos (auto) 0.4 Absolute Eos (auto) 0.0 Absolute Basos (auto) 0.0 Seg Neutrophils % 83.9 H Sodium 139.0 Potassium 3.5 L Chloride 99 Carbon Dioxide 33 H Anion Gap 7 BUN 12 Creatinine 1.29 H Est GFR ( Amer) 54 L Est GFR (MDRD) Non-Af 44 L Glucose 120 H POC Glucose 123 H Calcium 7.9 L 02/26/19 02/26/19 02/26/19 11:26 17:53 23:16 WBC RBC Hgb Hct MCV MCH MCHC RDW Plt Count Lymph % (Auto) [place] % (Auto) Eos % (Auto) Baso % (Auto) Absolute Neuts (auto) Absolute Lymphs (auto) Absolute Monos (auto) Absolute Eos (auto) Absolute Basos (auto) Seg Neutrophils % Sodium Potassium Chloride Carbon Dioxide Anion Gap BUN Creatinine Est GFR ( Amer) Est GFR (MDRD) Non-Af Glucose POC Glucose 153 H 83 99 Calcium Chest X-Ray 02/08/19 00:00 IMPRESSION: Slight advancement of endotracheal tube. Otherwise no change. Chest X-Ray 02/08/19 00:00 IMPRESSION: NO PNEUMOTHORAX FOLLOWING CENTRAL LINE PLACEMENT. OTHERWISE NO CHANGE. Chest X-Ray 02/08/19 03:15 IMPRESSION: Cardiomegaly. Endotracheal and enteric tubes are in place. Postsurgical changes of the mediastinum. Airspace opacities right lung base. copyright 2010 [employer]- All Rights Reserved Chest CT 02/10/19 00:00 IMPRESSION: No pneumothorax. No pleural effusions. Bibasilar consolidation in both lower lobes. Slightly increased interstitial thickening, basilar predominance. Scattered pulmonary cysts and ground-glass opacities are again noted. Tubes and lines in expected positions. Chest X-Ray 02/12/19 00:00 IMPRESSION: 1. Bilateral perihilar airspace consolidation which may be due to edema, atelectasis or pneumonia. 2. Marked cardiomegaly. 3. Remote postsurgical changes of the mediastinum. 4. Life support lines and tubes as described above. Chest X-Ray 02/13/19 06:00 IMPRESSION: STABLE APPEARANCE OF THE CHEST. SUPPORT DEVICES UNCHANGED. Chest X-Ray 02/14/19 06:00 IMPRESSION: Mildly worsened bibasilar predominant opacities, likely edema although infection not excluded. Stable support lines and tubes as above. Chest X-Ray 02/15/19 03:06 IMPRESSION: Diffuse persistent but improving interstitial and alveolar opacities throughout both lungs. Stable cardiomegaly. Chest X-Ray 02/16/19 06:00 IMPRESSION: Unchanged radiographic appearance of the chest. KUB X-Ray 02/16/19 15:49 IMPRESSION: The tip and side hole of the enteric tube project within the gastric lumen. Chest X-Ray 02/17/19 06:00 IMPRESSION: Findings most consistent with congestive failure an asymmetric pulmonary edema. Slightly improved. SUPPORT DEVICE(S) IN EXPECTED LOCATIONS. Chest X-Ray 02/18/19 00:00 IMPRESSION: New left IJ line with the tip overlying the proximal SVC. Consider advancement 3-4 cm. KUB X-Ray 02/18/19 00:00 IMPRESSION: NG tube tip in the fundus of the stomach. Chest X-Ray 02/19/19 06:00 IMPRESSION: Tubes and lines in good positioning. Stable marked cardiomegaly and mild residual alveolar and interstitial infiltrates Chest X-Ray 02/20/19 00:00 IMPRESSION: STABLE APPEARANCE OF THE CHEST. SUPPORT DEVICES UNCHANGED. Chest X-Ray 02/25/19 00:00 IMPRESSION: Cardiomegaly with diffuse interstitial edema copyright 2010 [employer]- All Rights Reserved Chest X-Ray 02/26/19 13:22 IMPRESSION: Tubes and catheters as described. Cardiomegaly with pulmonary edema that shows slight improvement. KUB X-Ray 02/26/19 13:25 IMPRESSION: NG tube tip overlies body of stomach, side port near the GE junction above the diaphragm. IMPRESSION/RECOMMENDATION: 1. Acute on chronic respiratory failure. This is multifactorial secondary to the causes listed below. Continue ventilator support and supplemental oxygen. Note that the patient had to be reintubated due to recurrence of acute on chronic respiratory failure. The patient's prognosis very guarded and poor 2. Acute on chronic systolic heart failure. Patient with LV ejection fraction of 25%. Continue beta-blockers and Entresto. Restart diuretics. 3. Acute exacerbation COPD: Continue bronchodilators and ventilatory support. 4. MRSA pneumonia: Continue antibiotics. 5. Amiodarone has been discontinued due to suspected pulmonary toxicity but is a finishing the race to walk 6. Acute on chronic kidney disease: Watch renal function as we implement aggressive diuresis. At present patient has chronic kidney disease stage III with a GFR of 43 mL per per minute. 7. Cardiomyopathy with severely reduced LV ejection fraction. Continue beta- rip, diuretics and Entresto. 8. Paroxysmal atrial fibrillation: Continue beta-rip and Eliquis. 9. History of ventricular tachycardia, The patient has an AICD placed. If there is recurrence of ventricular tachycardia or major ventricular ectopic activity then would start the patient on small dose of sotalol. Would avoid amiodarone. 10. Hypertension: Blood pressure well controlled, on current medications. 11. Coronary artery disease: History of [place] and history of coronary bypass graft surgery. No evidence of acute coronary syndrome/non-ST ST elevation [place] this admission. 12. Obstructive sleep apnea. Note patient is noncompliant with CPAP. Most likely has significant pulmonary hypertension. 13. AICD placement: Note the patient's basal rate is around 60 bpm. If the patient's heart failure continues then would recommend increasing the basal heart rate to 80 bpm to help combat the heart failure along with diuretics. 14. MRSA bacteremia: Continue antibiotics. Repeat blood cultures are far negative for growth of MRSA. Occasions reviewed. Medical regimen and management plan discussed with attending physician, the sustainability project coordinator. Medical decision making is of high complexity. 40 minutes spent as patient more than 50% time spent in direct patient care. Will follow patient
[2019-02-26] MEDS: FENTANYL CITRATE/PF 600 MCG/60 ML BAG IV PRN (18:00)
[2019-02-27] MEDS: FENTANYL CITRATE/PF 600 MCG/60 ML BAG IV PRN ×4 (01:35→23:23)
[2019-02-27 04:49] LABS: ABSOLUTE LYMPHOCYTES (AUTO) 0.7 10^3/uL (0.5-4.7); ABSOLUTE MONOCYTES (AUTO) 0.2 10^3/uL (0.1-1.4); ABSOLUTE NEUT (AUTO) 6.7 10^3/uL (1.7-8.2); BASOPHILS % (AUTO) 0.2 % (0-2); EOSINOPHILS % (AUTO) 0.2 % (0-6); HEMATOCRIT 20.8 % (36.0-47.0); LYMPHOCYTES % (AUTO) 9.2 % (13-45); MEAN CORPUSCULAR HEMOGLOBIN 29.3 pg (27.0-33.4); MEAN CORPUSCULAR HGB CONC 32.5 g/dL (32.0-36.0); MEAN CORPUSCULAR VOLUME 90 fl (80-97); MONOCYTES % (AUTO) 3.2 % (3-13); PLATELET COUNT 149 10^3/uL (150-450); RED BLOOD COUNT 2.31 10^6/uL (3.72-5.28); RED CELL DISTRIBUTION WIDTH 18.6 % (11.5-14.0); SEGMENTED NEUTROPHILS % (AUTO) 87.2 % (42-78); TOTAL CELLS COUNTED % (AUTO) 100 %; WHITE BLOOD COUNT 7.7 10^3/uL (4.0-10.5)
[2019-02-27 04:51] LABS: HEMOGLOBIN 6.7 g/dL (12.0-15.5)
[2019-02-27 05:14] LABS: ANION GAP 5 (5-19); BLOOD UREA NITROGEN 12 mg/dL (7-20); CARBON DIOXIDE 34 mmol/L (22-30); CHLORIDE 103 mmol/L (98-107); GLUCOSE 91 mg/dL (75-110); POTASSIUM 3.9 mmol/L (3.6-5.0)
[2019-02-27] MEDS ORDERED: NORMAL SALINE 250 ML IV PRN ×2 (06:10)
[2019-02-27] MEDS: INSULIN LISPRO 100 UNIT/ML 3 ML VIAL SUBCUT SCH ×3 (06:12→22:12)
[2019-02-27] MEDS: VANCOMYCIN HCL 1,000 MG in DEXTROSE 5%-WATER 250 ML IV SCH ×2 (06:15→22:10)
[2019-02-27] MEDS: IPRATROPIUM/ALBUTEROL 0.5-2.5 MG/3 ML AMPUL NEB PRN (08:34)
[2019-02-27] MEDS: ACETAMINOPHEN 325 MG TABLET PO PRN (08:58)
[2019-02-27] MEDS: POTASSIUM CHLORIDE 10 MEQ TABLET.ER PO SCH (09:01)
[2019-02-27] MEDS: METOPROLOL TARTRATE 50 MG TABLET NG SCH ×2 (09:01→22:10)
[2019-02-27] MEDS: NITROGLYCERIN 5 MG (0.2 MG/HR) PATCH.TD24 TD SCH (09:02)
[2019-02-27] MEDS: BUSPIRONE HCL 10 MG TABLET NG SCH ×2 (09:02→22:10)
[2019-02-27] MEDS: FUROSEMIDE INJ/PF 40 MG/4 ML SDV IV SCH ×2 (09:02→22:11)
[2019-02-27] MEDS: PANTOPRAZOLE SODIUM 40 MG VIAL IV SCH ×2 (09:02→22:10)
[2019-02-27 10:39] LABS: ARTERIAL BLOOD BASE EXCESS 8.1 mmol/L; ARTERIAL BLOOD HCO3 32.8 mmol/L (20-24); ARTERIAL BLOOD O2 SATURATION 92.9 % (94-98); ARTERIAL BLOOD PCO2 46.6 mmHg (35-45); ARTERIAL BLOOD PH 7.47 (7.35-7.45); ARTERIAL BLOOD PO2 62.3 mmHg (80-100); ARTERIAL BLOOD TOTAL CO2 34.2 mmol/L (21-25)
[2019-02-27 10:44] LABS: ARTERIAL BLOOD FIO2 40%
--- NOTE | 2019-02-27 12:33 | PDOC CRITICAL CARE PROG REPORT ---
General Date:: 02/27/19 - Critical Care Attending Note Resuscitation Status: Full Code Medical Power of Supervisor [employer]: Daughter, Aparna Events in the past 12 to 24 Hours:: Pt was re-intubated yesterday. Reason for ICU Addmission:: Respiratory failure - Medications: Medications reviewed and adjusted accordingly: Yes Physical Exam Vital Signs: Temp Pulse Resp BP Pulse Ox 101.3 F H 70 15 87/57 L 96 02/27/19 08:53 02/27/19 10:00 02/27/19 10:00 02/27/19 10:00 02/27/19 10:00 Intake & Output 02/26/19 02/27/19 02/28/19 06:59 06:59 06:59 Intake Total 1298 774 0 Output Total 2706 9835 34242 Balance -1402 -1901 -39929 Weight 117 kg 114.1 kg Weight/Height Weight 114.3 kg Height 5 ft 4 in General appearance: PRESENT: no acute distress, well-developed, well-nourished, other - intubated, sedated Head exam: PRESENT: atraumatic, normocephalic Respiratory exam: PRESENT: clear to auscultation renu, unlabored Cardiovascular exam: PRESENT: RRR GI/Abdominal exam: PRESENT: soft Gentrourinary exam: PRESENT: indwelling catheter Extremities exam: PRESENT: +2 edema Neurological exam: PRESENT: other - sedated Laboratory/Radiographs Laboratory Results: 02/27/19 04:15 02/27/19 04:15 02/27/19 02/27/19 02/27/19 04:15 04:15 06:55 WBC 7.7 RBC 2.31 L Hgb 6.7 L Hct 20.8 L MCV 90 MCH 29.3 MCHC 32.5 RDW 18.6 H Plt Count 149 L Seg Neutrophils % 87.2 H Carbonic Acid HCO3/H2CO3 Ratio ABG pH ABG pCO2 ABG pO2 ABG HCO3 ABG O2 Saturation ABG Base Excess FiO2 Sodium 142.3 Potassium 3.9 Chloride 103 Carbon Dioxide 34 H Anion Gap 5 BUN 12 Creatinine 1.46 H Est GFR ( Amer) 46 L Glucose 91 Calcium 8.0 L Blood Type B POSITIVE Antibody Screen NEGATIVE 02/27/19 10:15 WBC RBC Hgb Hct MCV MCH MCHC RDW Plt Count Seg Neutrophils % Carbonic Acid 1.40 H HCO3/H2CO3 Ratio 23:1 ABG pH 7.47 H ABG pCO2 46.6 H ABG pO2 62.3 L ABG HCO3 32.8 H ABG O2 Saturation 92.9 L ABG Base Excess 8.1 FiO2 40% Sodium Potassium Chloride Carbon Dioxide Anion Gap BUN Creatinine Est GFR ( Amer) Glucose Calcium Blood Type Antibody Screen 02/08/19 02/08/19 02/08/19 04:06 04:06 05:30 Creatine Kinase Cancelled 33 CK-MB (CK-2) Cancelled Troponin I Cancelled NT-Pro-B Natriuret Pep Cancelled 02/08/19 02/11/19 02/13/19 05:45 03:18 01:22 Creatine Kinase CK-MB (CK-2) < 0.22 Troponin I 0.043 NT-Pro-B Natriuret Pep 7610 H 1970 H 18854 H Impressions: Chest CT 02/10/19 00:00 IMPRESSION: No pneumothorax. No pleural effusions. Bibasilar consolidation in both lower lobes. Slightly increased interstitial thickening, basilar predominance. Scattered pulmonary cysts and ground-glass opacities are again noted. Tubes and lines in expected positions. Chest X-Ray 02/26/19 13:22 IMPRESSION: Tubes and catheters as described. Cardiomegaly with pulmonary edema that shows slight improvement. KUB X-Ray 02/26/19 13:25 IMPRESSION: NG tube tip overlies body of stomach, side port near the GE junction above the diaphragm. Assessment and Plan - Diagnosis (1) Acute on chronic systolic (congestive) heart failure Is this a current diagnosis for this admission?: Yes (2) ARDS (adult respiratory distress syndrome) Is this a current diagnosis for this admission?: Yes (3) Acute respiratory failure with hypoxia Is this a current diagnosis for this admission?: Yes (4) Ischemic cardiomyopathy with implantable cardioverter-defibrillator (ICD) Is this a current diagnosis for this admission?: Yes (5) MRSA (methicillin resistant staphylococcus aureus) pneumonia Qualifiers: Laterality: bilateral Lung location: unspecified part of lung Qualified Code(s): J15.212 - Pneumonia due to Methicillin resistant Staphylococcus aureus Is this a current diagnosis for this admission?: Yes (6) Acute kidney injury Is this a current diagnosis for this admission?: Yes (7) Acute lung injury associated with vaping Is this a current diagnosis for this admission?: Yes (8) Atrial fibrillation Qualifiers: Atrial fibrillation type: longstanding persistent Qualified Code(s): I48.11 - Longstanding persistent atrial fibrillation Is this a current diagnosis for this admission?: Yes (9) Amiodarone toxicity Qualifiers: Encounter type: initial encounter Injury intent: accidental or unintentional Qualified Code(s): T46.2X1A - Poisoning by other antidysrhythmic drugs, accidental (unintentional), initial encounter Is this a current diagnosis for this admission?: Yes Plan Summary: Assessment: Critically ill 48 yo woman with acute respiratory failure, MRSA PNA, Vaping associated lung injury, ARDS, acute on chronic systolic CHF, cardiomyopathy, PAF, infected AICD leads, amiodarone pulmonary lung toxicity, COPD, severe sepsis, MRSA bacteremia. Plan: 1. Respiratory: acute respirtory failure. Pt extubated 02/20.and reintubated on 02/26. Continue full vent support. 2. Pulmonary: MRSA PNA, ARDS-resolved, vaping associated lung injury, amiodarone lung toxicity. ATBX,bronchodilators. Off steroids 3. CV: acute on chronic systolic CHF, cardiomyopathy. EF 25%, PAF, AICD with infected leads. Is off milrinone. Is on lopressor, entresto, Nitro paste, IV lasix. Stopped heparin drip for her afib 5 days ago due to thrombocytopenia. D/W Dr. Ragsdale 4. ID: severe sepsis, MRSA PNA. Infected AICD leads. MRSA bacteremia. Remains febrile. On Vancomycin. Blood cultures from 02/24 NGTD. New central line i nserted 02/24. New cultures obtained. ID physician from [facility] following pt.. 5. Renal/Electrolytes: BENNY. Cr is 1.46. Hypernatremia, free water flushes 6. Heme: Anemia. Hg 6.7 today. Pt getting 1 unit of PRBC 7 GI: GI bleed. EGD on 02/18 showed gastritis. Colonoscopy 02/20, negative. Continue IV protonix 8. Nutrition: resume tube feeds 9. Access: new right IJ central line placed 02/24 10 Endocrine: Accuchecks, SSI 11. Prophylaxis: scds. No pharmacologic DVT prophylaxis b/c of anemia and thrombocytopenia Critical care time= 40 min, excluding procedures Critical Time Critical Time (minutes): 40 Level of Care: ICU -: 1. The care of a critical patient is a dynamic process. This note is a architectural representative synopsis but static in nature. The timeframe for treatments given in order is not necessarily the actual time these treatments may have been done. 2. This patient requires critical care secondary to ongoing requirements for therapy not offered or safe outside the critical care environment. Transfer to a lower level of care will result in altered life or limb morbidity and mortality. 3. Multidisciplinary rounds completed. 4. ABCDE bundle addressed.
[2019-02-27] MEDS: SACUBITRIL/VALSARTAN 97 MG/103 MG TABLET NG SCH ×2 (14:37→22:10)
[2019-02-27 15:06] LABS: HEMATOCRIT 23.4 % (36.0-47.0); MEAN CORPUSCULAR HEMOGLOBIN 28.7 pg (27.0-33.4); MEAN CORPUSCULAR HGB CONC 32.7 g/dL (32.0-36.0); MEAN CORPUSCULAR VOLUME 88 fl (80-97); PLATELET COUNT 155 10^3/uL (150-450); RED BLOOD COUNT 2.67 10^6/uL (3.72-5.28); RED CELL DISTRIBUTION WIDTH 17.8 % (11.5-14.0); WHITE BLOOD COUNT 8.3 10^3/uL (4.0-10.5)
[2019-02-27 15:11] LABS: HEMOGLOBIN 7.7 g/dL (12.0-15.5)
[2019-02-27 17:39] LABS: VANCOMYCIN,TROUGH 30.3 ug/mL (5.0-20.0)
[2019-02-28] MEDS: INSULIN LISPRO 100 UNIT/ML 3 ML VIAL SUBCUT SCH ×5 (00:47→23:04)
[2019-02-28 04:28] LABS: ABSOLUTE LYMPHOCYTES (AUTO) 0.5 10^3/uL (0.5-4.7); ABSOLUTE MONOCYTES (AUTO) 0.2 10^3/uL (0.1-1.4); ABSOLUTE NEUT (AUTO) 5.9 10^3/uL (1.7-8.2); BASOPHILS % (AUTO) 0.5 % (0-2); EOSINOPHILS % (AUTO) 0.1 % (0-6); HEMATOCRIT 22.8 % (36.0-47.0); LYMPHOCYTES % (AUTO) 7.8 % (13-45); MEAN CORPUSCULAR HEMOGLOBIN 28.9 pg (27.0-33.4); MEAN CORPUSCULAR HGB CONC 32.8 g/dL (32.0-36.0); MEAN CORPUSCULAR VOLUME 88 fl (80-97); MONOCYTES % (AUTO) 2.3 % (3-13); PLATELET COUNT 155 10^3/uL (150-450); RED BLOOD COUNT 2.59 10^6/uL (3.72-5.28); RED CELL DISTRIBUTION WIDTH 17.3 % (11.5-14.0); SEGMENTED NEUTROPHILS % (AUTO) 89.3 % (42-78); TOTAL CELLS COUNTED % (AUTO) 100 %; WHITE BLOOD COUNT 6.6 10^3/uL (4.0-10.5)
[2019-02-28 04:30] LABS: ANION GAP 6 (5-19); BLOOD UREA NITROGEN 14 mg/dL (7-20); CARBON DIOXIDE 35 mmol/L (22-30); CHLORIDE 102 mmol/L (98-107); GLUCOSE 133 mg/dL (75-110); POTASSIUM 3.8 mmol/L (3.6-5.0)
[2019-02-28 04:31] LABS: HEMOGLOBIN 7.5 g/dL (12.0-15.5)
[2019-02-28] MEDS: FENTANYL CITRATE/PF 600 MCG/60 ML BAG IV PRN (07:49)
[2019-02-28] MEDS: NITROGLYCERIN 5 MG (0.2 MG/HR) PATCH.TD24 TD SCH (09:58)
[2019-02-28] MEDS: BUSPIRONE HCL 10 MG TABLET NG SCH (09:59)
[2019-02-28] MEDS: FUROSEMIDE INJ/PF 40 MG/4 ML SDV IV SCH (09:59)
[2019-02-28] MEDS: SACUBITRIL/VALSARTAN 97 MG/103 MG TABLET NG SCH (09:59)
[2019-02-28] MEDS: METOPROLOL TARTRATE 50 MG TABLET NG SCH (09:59)
[2019-02-28] MEDS: POTASSIUM CHLORIDE 10 MEQ TABLET.ER PO SCH (09:59)
[2019-02-28] MEDS: PANTOPRAZOLE SODIUM 40 MG VIAL IV SCH (10:00)
[2019-02-28] MEDS ORDERED: NITROGLYCERIN 0.4 MG/TAB 25 TAB/BOTTLE SL PRN (10:22)
[2019-02-28] MEDS ORDERED: ALPRAZOLAM 0.5 MG TABLET PO PRN (10:22)
[2019-02-28] MEDS ORDERED: METOPROLOL SUCCINATE 50 MG TAB.SR.24H PO SCH (10:30)
[2019-02-28] MEDS ORDERED: LORAZEPAM INJ 2 MG/1 ML VIAL IV PRN (10:31)
--- NOTE | 2019-02-28 11:09 | PDOC CRITICAL CARE PROG REPORT ---
General Date:: 02/28/19 ICU Day:: 19 Ventilator Day:: 2 Resuscitation Status: Full Code Medical Power of Patient Relations Liaison: DaughterAparna Events in the past 12 to 24 Hours:: Re-intubated now weaning toward extubation. Review of systems relevant to events:: Respiraory,neuro Reason for ICU Addmission:: Respiratory failure - Medications: Medications reviewed and adjusted accordingly: Yes Vasopressors:: None Sedation:: None now Physical Exam Vital Signs: Temp Pulse Resp BP Pulse Ox 100.9 F H 64 15 138/83 H 96 02/28/19 10:01 02/28/19 07:59 02/28/19 10:01 02/28/19 10:01 02/28/19 10:01 Intake & Output 02/27/19 02/28/19 03/01/19 06:59 06:59 06:59 Intake Total 774 600 Output Total 2675 71545 30 Balance -1901 -53080 -30 Weight 114.1 kg 108.1 kg Weight/Height Weight 108.1 kg Height 5 ft 4 in General appearance: PRESENT: no acute distress, obese Head exam: PRESENT: atraumatic Eye exam: PRESENT: EOMI, PERRLA Ear exam: PRESENT: normal external ear exam Mouth exam: PRESENT: other - ETT present Neck exam: PRESENT: other - Central line present on L side Respiratory exam: PRESENT: clear to auscultation renu, decreased breath sounds. ABSENT: rales, rhonchi, wheezes Cardiovascular exam: PRESENT: RRR. ABSENT: diastolic murmur, rubs, systolic murmur Vascular exam: PRESENT: normal capillary refill GI/Abdominal exam: PRESENT: normal bowel sounds, soft. ABSENT: distended, guarding, mass, organolmegaly, rebound, tenderness Rectal exam: PRESENT: deferred Gentrourinary exam: PRESENT: indwelling catheter Extremities exam: PRESENT: +1 edema Musculoskeletal exam: PRESENT: normal inspection Neurological exam: PRESENT: alert, awake Skin exam: PRESENT: dry, intact, warm. ABSENT: cyanosis, rash Tubes/Lines: PRESENT: Endotracheal Tube, Central Line Laboratory/Radiographs Laboratory Results: 02/28/19 03:35 02/28/19 03:35 02/27/19 02/27/19 02/28/19 10:15 14:40 03:35 WBC 8.3 RBC 2.67 L Hgb 7.7 L Hct 23.4 L MCV 88 MCH 28.7 MCHC 32.7 RDW 17.8 H Plt Count 155 Seg Neutrophils % Carbonic Acid 1.40 H HCO3/H2CO3 Ratio 23:1 ABG pH 7.47 H ABG pCO2 46.6 H ABG pO2 62.3 L ABG HCO3 32.8 H ABG O2 Saturation 92.9 L ABG Base Excess 8.1 FiO2 40% Sodium 143.2 Potassium 3.8 Chloride 102 Carbon Dioxide 35 H Anion Gap 6 BUN 14 Creatinine 1.62 H Est GFR ( Amer) 41 L Glucose 133 H Calcium 8.0 L 02/28/19 03:35 WBC 6.6 RBC 2.59 L Hgb 7.5 L Hct 22.8 L MCV 88 MCH 28.9 MCHC 32.8 RDW 17.3 H Plt Count 155 Seg Neutrophils % 89.3 H Carbonic Acid HCO3/H2CO3 Ratio ABG pH ABG pCO2 ABG pO2 ABG HCO3 ABG O2 Saturation ABG Base Excess FiO2 Sodium Potassium Chloride Carbon Dioxide Anion Gap BUN Creatinine Est GFR ( Amer) Glucose Calcium 02/08/19 02/08/19 02/08/19 04:06 04:06 05:30 Creatine Kinase Cancelled 33 CK-MB (CK-2) Cancelled Troponin I Cancelled NT-Pro-B Natriuret Pep Cancelled 02/08/19 02/11/19 02/13/19 05:45 03:18 01:22 Creatine Kinase CK-MB (CK-2) < 0.22 Troponin I 0.043 NT-Pro-B Natriuret Pep 7610 H 1970 H 04189 H Impressions: Chest CT 02/10/19 00:00 IMPRESSION: No pneumothorax. No pleural effusions. Bibasilar consolidation in both lower lobes. Slightly increased interstitial thickening, basilar predominance. Scattered pulmonary cysts and ground-glass opacities are again noted. Tubes and lines in expected positions. Chest X-Ray 02/26/19 13:22 IMPRESSION: Tubes and catheters as described. Cardiomegaly with pulmonary edema that shows slight improvement. KUB X-Ray 02/26/19 13:25 IMPRESSION: NG tube tip overlies body of stomach, side port near the GE junction above the diaphragm. All labs, radiographs, diagnostic studies and EKGs were personally reviewed: Yes In addition, reports of radiographic and diagnostic studies were read: Yes Assessment and Plan - Diagnosis (1) ARDS (adult respiratory distress syndrome) Is this a current diagnosis for this admission?: Yes Plan: Although this has been a dx in the past there is no CXR or physiologic evidence for this. Resolved (2) Acute on chronic systolic (congestive) heart failure Is this a current diagnosis for this admission?: Yes Plan: This reintubation was likely the result of residual acute systolic HF with a strong anxiety component. Entresto restarted. Usual lasix dose ordered. (3) Acute respiratory failure with hypoxia Is this a current diagnosis for this admission?: Yes Plan: Her pO2 is still low at 62 on 40% but with a RR of 16 and O2 sats of 95-6%will attempt extubation. (4) Ischemic cardiomyopathy with implantable cardioverter-defibrillator (ICD) Is this a current diagnosis for this admission?: Yes Plan: AICD lead is likely infected with MRSA. Treat as endocarditis. (5) MRSA bacteremia Is this a current diagnosis for this admission?: Yes Plan: Continue Vanco for now (6) Atrial fibrillation Qualifiers: Atrial fibrillation type: longstanding persistent Qualified Code(s): I48.11 - Longstanding persistent atrial fibrillation Is this a current diagnosis for this admission?: Yes Plan: Controlled and stable, continue home medications (7) MRSA (methicillin resistant staphylococcus aureus) pneumonia Qualifiers: Laterality: bilateral Lung location: unspecified part of lung Qualified Code(s): J15.212 - Pneumonia due to Methicillin resistant Staphylococcus aureus Is this a current diagnosis for this admission?: Yes Plan: Same treatment for SBE and infected leads (8) Acute kidney injury Is this a current diagnosis for this admission?: Yes Plan: Baseline Cr and GFR has wide range. Within baseline range. (9) Acute lung injury associated with vaping Is this a current diagnosis for this admission?: No (10) Amiodarone toxicity Qualifiers: Encounter type: initial encounter Injury intent: accidental or unintentional Qualified Code(s): T46.2X1A - Poisoning by other antidysrhythmic drugs, accidental (unintentional), initial encounter Is this a current diagnosis for this admission?: Yes Plan: Currently no cough or other symptoms. Critical Time Critical Time (minutes): 40 Level of Care: ICU Anticipated discharge: Home Within: Other - Too soon to tell. -: 1. The care of a critical patient is a dynamic process. This note is a manufacturer's representative synopsis but static in nature. The timeframe for treatments given in order is not necessarily the actual time these treatments may have been done. 2. This patient requires critical care secondary to ongoing requirements for therapy not offered or safe outside the critical care environment. Transfer to a lower level of care will result in altered life or limb morbidity and mortality. 3. Multidisciplinary rounds completed. 4. ABCDE bundle addressed.
[2019-02-28] MEDS: SACUBITRIL/VALSARTAN 97 MG/103 MG TABLET PO SCH ×2 (11:47→17:23)
[2019-02-28] MEDS: ISOSORBIDE MONONITRATE 60 MG TAB.ER.24H PO SCH (11:51)
[2019-02-28] MEDS: ACETAMINOPHEN 325 MG TABLET PO PRN (13:59)
[2019-02-28] MEDS: FUROSEMIDE 80 MG TABLET PO SCH (17:22)
[2019-02-28] MEDS: FAMOTIDINE 20 MG TABLET PO SCH (17:22)
[2019-02-28] MEDS: APIXABAN 5 MG TABLET PO SCH (17:22)
[2019-02-28] MEDS: BUSPIRONE HCL 10 MG TABLET PO SCH (17:23)
[2019-02-28 18:40] LABS: VANCOMYCIN,TROUGH 16.2 ug/mL (5.0-20.0)
--- NOTE | 2019-02-28 19:05 | Progress Note ---
Provider Note Provider Note: CARDIOLOGY PROGRESS NOTE by Dr. Griselda Cruz on 02/28/2019. SUBJECTIVE: The patient is intubated. She is awake and seems to be oriented. She responds to questions appropriately by questions. She denies any chest pain or discomfort by gas chest. She denies being short of breath. There is no arrhythmia seen on the monitor. Her systolic blood pressure is in the mid 90s. PHYSICAL EXAMINATION: The patient morbidly obese. At present on the ventilator but in no acute distress. Selected Entries 02/28/19 02/28/19 17:46 17:48 Temperature 99.0 F Heart Rate ( 60 Monitors) Respiratory 17 Rate Blood Pressure 95/63 L Blood Pressure 73 Mean O2 Sat by Pulse 96 Oximetry Fraction of 40 Inspired Oxygen (FIO2) HEAD: Is atraumatic normocephalic. EYES: Pupils are equal round regular reactive to light. HEENT is negative. SKIN: There is no skin rashes or skin lesions. There is no particular ecchymosis. NECK: Is supple. There is mild JVD present. Carotids are equal there is no bruits. There is no lymphadenopathy. There is no goiter. There is no accessory muscle respiration use. Trachea central. LUNGS: Shows bibasilar rales of CHF. There are scattered rhonchi or wheezing. There is also dry crackles in the right lower lobe. There is diminished air entry. On percussion there is hyperresonance. On palpation there is no chest wall tenderness. HEART: S1-S2 is heard. There is no S3 gallop. There is no S4 gallop. There is systolic murmur mitral regurgitation tricuspid regurgitation present. There is no aortic stenosis murmur. There is no aortic insufficiency murmur. There is no rub. ABDOMEN: Is obese. Nontender. There is no hepatosplenomegaly. Bowel sounds are well heard. There is no rebound guarding or rigidity. EXTREMITIES: Femorals are deep. Femorals are diminished. There is no femoral bruits. There is decreased leg pulses. There is mild pedal edema. There is no DVT or cellulitis. There is no calf tenderness. CONVEYOR ATTENDANT and PSYCHIATRIC: Not examined due to patient being intubated. Labs- All tests 24 hr 02/27/19 02/28/19 02/28/19 22:01 00:46 03:35 WBC RBC Hgb Hct MCV MCH MCHC RDW Plt Count Lymph % (Auto) Dukes % (Auto) Eos % (Auto) Baso % (Auto) Absolute Neuts (auto) Absolute Lymphs (auto) Absolute Monos (auto) Absolute Eos (auto) Absolute Basos (auto) Seg Neutrophils % Sodium 143.2 Potassium 3.8 Chloride 102 Carbon Dioxide 35 H Anion Gap 6 BUN 14 Creatinine 1.62 H Est GFR ( Amer) 41 L Est GFR (MDRD) Non-Af 34 L Glucose 133 H POC Glucose 139 H 138 H Calcium 8.0 L Time Trough Drawn Vancomycin Trough 02/28/19 02/28/19 02/28/19 03:35 05:31 09:55 WBC 6.6 RBC 2.59 L Hgb 7.5 L Hct 22.8 L MCV 88 MCH 28.9 MCHC 32.8 RDW 17.3 H Plt Count 155 Lymph % (Auto) 7.8 L Dukes % (Auto) 2.3 L Eos % (Auto) 0.1 Baso % (Auto) 0.5 Absolute Neuts (auto) 5.9 Absolute Lymphs (auto) 0.5 Absolute Monos (auto) 0.2 Absolute Eos (auto) 0.0 Absolute Basos (auto) 0.0 Seg Neutrophils % 89.3 H Sodium Potassium Chloride Carbon Dioxide Anion Gap BUN Creatinine Est GFR ( Amer) Est GFR (MDRD) Non-Af Glucose POC Glucose 128 H 130 H Calcium Time Trough Drawn Vancomycin Trough 02/28/19 02/28/19 17:20 17:53 WBC RBC Hgb Hct MCV MCH MCHC RDW Plt Count Lymph % (Auto) Dukes % (Auto) Eos % (Auto) Baso % (Auto) Absolute Neuts (auto) Absolute Lymphs (auto) Absolute Monos (auto) Absolute Eos (auto) Absolute Basos (auto) Seg Neutrophils % Sodium Potassium Chloride Carbon Dioxide Anion Gap BUN Creatinine Est GFR ( Amer) Est GFR (MDRD) Non-Af Glucose POC Glucose 164 H Calcium Time Trough Drawn 1753 Vancomycin Trough 16.2 Chest X-Ray 02/08/19 00:00 IMPRESSION: Slight advancement of endotracheal tube. Otherwise no change. Chest X-Ray 02/08/19 00:00 IMPRESSION: NO PNEUMOTHORAX FOLLOWING CENTRAL LINE PLACEMENT. OTHERWISE NO CHANGE. Chest X-Ray 02/08/19 03:15 IMPRESSION: Cardiomegaly. Endotracheal and enteric tubes are in place. Postsurgical changes of the mediastinum. Airspace opacities right lung base. copyright 2010 [employer]- All Rights Reserved Chest CT 02/10/19 00:00 IMPRESSION: No pneumothorax. No pleural effusions. Bibasilar consolidation in both lower lobes. Slightly increased interstitial thickening, basilar predominance. Scattered pulmonary cysts and ground-glass opacities are again noted. Tubes and lines in expected positions. Chest X-Ray 02/12/19 00:00 IMPRESSION: 1. Bilateral perihilar airspace consolidation which may be due to edema, atelectasis or pneumonia. 2. Marked cardiomegaly. 3. Remote postsurgical changes of the mediastinum. 4. Life support lines and tubes as described above. Chest X-Ray 02/13/19 06:00 IMPRESSION: STABLE APPEARANCE OF THE CHEST. SUPPORT DEVICES UNCHANGED. Chest X-Ray 02/14/19 06:00 IMPRESSION: Mildly worsened bibasilar predominant opacities, likely edema although infection not excluded. Stable support lines and tubes as above. Chest X-Ray 02/15/19 03:06 IMPRESSION: Diffuse persistent but improving interstitial and alveolar opacities throughout both lungs. Stable cardiomegaly. Chest X-Ray 02/16/19 06:00 IMPRESSION: Unchanged radiographic appearance of the chest. KUB X-Ray 02/16/19 15:49 IMPRESSION: The tip and side hole of the enteric tube project within the gastric lumen. Chest X-Ray 02/17/19 06:00 IMPRESSION: Findings most consistent with congestive failure an asymmetric pulmonary edema. Slightly improved. SUPPORT DEVICE(S) IN EXPECTED LOCATIONS. Chest X-Ray 02/18/19 00:00 IMPRESSION: New left IJ line with the tip overlying the proximal SVC. Consider advancement 3-4 cm. KUB X-Ray 02/18/19 00:00 IMPRESSION: NG tube tip in the fundus of the stomach. Chest X-Ray 02/19/19 06:00 IMPRESSION: Tubes and lines in good positioning. Stable marked cardiomegaly and mild residual alveolar and interstitial infiltrates Chest X-Ray 02/20/19 00:00 IMPRESSION: STABLE APPEARANCE OF THE CHEST. SUPPORT DEVICES UNCHANGED. Chest X-Ray 02/25/19 00:00 IMPRESSION: Cardiomegaly with diffuse interstitial edema copyright 2010 [employer]- All Rights Reserved Chest X-Ray 02/26/19 13:22 IMPRESSION: Tubes and catheters as described. Cardiomegaly with pulmonary edema that shows slight improvement. KUB X-Ray 02/26/19 13:25 IMPRESSION: NG tube tip overlies body of stomach, side port near the GE junction above the diaphragm. IMPRESSION/RECOMMENDATION: 1. Acute on chronic respiratory failure. This is multifactorial secondary to the causes listed below. Continue ventilator support and supplemental oxygen. Note that the patient had to be reintubated due to recurrence of acute on chronic respiratory failure. The patient's prognosis very guarded and poor 2. Acute on chronic systolic heart failure. Patient with LV ejection fraction of 25%. Continue beta-blockers and Entresto. Restart diuretics. 3. Acute exacerbation COPD: Continue bronchodilators and ventilatory support. 4. MRSA pneumonia: Continue antibiotics. 5. Amiodarone has been discontinued due to recurrence of pulmonary toxicity. 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 If need to start the patient on antiarrhythmic, would start the patient on sotalol at a very low dose in view of the compromised renal function. Would avoid amiodarone at all costs. 6. Acute on chronic kidney disease: Watch renal function as we implement aggressive diuresis. At present patient has chronic kidney disease stage III with a GFR of 43 mL per per minute. 7. Cardiomyopathy with severely reduced LV ejection fraction. Continue beta- rip, diuretics and Entresto. 8. Paroxysmal atrial fibrillation: Continue beta-rip. The patient Eliquis had to be stopped due to patient's anemia and also prior occult positive bloo blood in the stools. 9. History of ventricular tachycardia, The patient has an AICD placed. If there is recurrence of ventricular tachycardia or major ventricular ectopic activity then would start the patient on small dose of sotalol. Would avoid amiodarone. 10. Hypertension: Blood pressure well controlled, on current medications. 11. Coronary artery disease: History of [place] and history of coronary bypass graft surgery. No evidence of acute coronary syndrome/non-ST ST elevation UT this admission. 12. Obstructive sleep apnea. Note patient is noncompliant with CPAP. Most likely has significant pulmonary hypertension. 13. AICD placement: Note the patient's basal rate is around 60 bpm. If the pa tient's heart failure continues then would recommend increasing the basal heart rate to 80 bpm to help combat the heart failure along with diuretics. 14. MRSA bacteremia: Continue antibiotics. Repeat blood cultures are far negative for growth of MRSA. Will Discontinue Amiodarone Ordered. Patient's prognosis very guarded and poor. Medications reviewed. Medical regimen discussed with the relations liaison as well as medical management. Medical decision making is of high complexity. 40 minutes spent on the patient more than 50% of time spent in direct patient care. Will follow.
[2019-02-28] MEDS: ATORVASTATIN CALCIUM 80 MG TABLET PO SCH (22:59)
[2019-02-28] MEDS: MELATONIN 1 MG TABLET PO SCH (22:59)
[2019-03-01] MEDS: MORPHINE SULFATE 10 MG/ML INJ IV PRN (01:43)
[2019-03-01 04:30] LABS: ABSOLUTE LYMPHOCYTES (AUTO) 0.5 10^3/uL (0.5-4.7); ABSOLUTE MONOCYTES (AUTO) 0.1 10^3/uL (0.1-1.4); ABSOLUTE NEUT (AUTO) 4.3 10^3/uL (1.7-8.2); BASOPHILS % (AUTO) 0.2 % (0-2); EOSINOPHILS % (AUTO) 0.1 % (0-6); HEMATOCRIT 20.5 % (36.0-47.0); LYMPHOCYTES % (AUTO) 10.3 % (13-45); MEAN CORPUSCULAR HEMOGLOBIN 28.9 pg (27.0-33.4); MEAN CORPUSCULAR HGB CONC 33.1 g/dL (32.0-36.0); MEAN CORPUSCULAR VOLUME 88 fl (80-97); MONOCYTES % (AUTO) 2.7 % (3-13); PLATELET COUNT 142 10^3/uL (150-450); RED BLOOD COUNT 2.34 10^6/uL (3.72-5.28); SEGMENTED NEUTROPHILS % (AUTO) 86.7 % (42-78); TOTAL CELLS COUNTED % (AUTO) 100 %
[2019-03-01 04:34] LABS: HEMOGLOBIN 6.8 g/dL (12.0-15.5)
[2019-03-01] MEDS ORDERED: NORMAL SALINE 250 ML IV PRN ×2 (04:38)
[2019-03-01 04:50] LABS: ANION GAP 6 (5-19); BLOOD UREA NITROGEN 15 mg/dL (7-20); CALCIUM 7.9 mg/dL (8.4-10.2); CARBON DIOXIDE 37 mmol/L (22-30); CHLORIDE 99 mmol/L (98-107); GLUCOSE 118 mg/dL (75-110); POTASSIUM 3.5 mmol/L (3.6-5.0)
[2019-03-01] MEDS: INSULIN LISPRO 100 UNIT/ML 3 ML VIAL SUBCUT SCH ×3 (06:32→17:45)
[2019-03-01] MEDS ORDERED: PANTOPRAZOLE SODIUM 40 MG VIAL IV SCH (10:00)
[2019-03-01] MEDS ORDERED: AMIODARONE HCL 200 MG TABLET PO SCH (10:00)
[2019-03-01] MEDS: POTASSIUM CHLORIDE 10 MEQ TABLET.ER PO SCH (10:43)
[2019-03-01] MEDS: NITROGLYCERIN 5 MG (0.2 MG/HR) PATCH.TD24 TD SCH (10:43)
[2019-03-01] MEDS: METOPROLOL TARTRATE 50 MG TABLET NG SCH (10:43)
[2019-03-01] MEDS: PAROXETINE HCL 20 MG TABLET PO SCH ×2 (10:43→14:46)
[2019-03-01] MEDS: FUROSEMIDE 80 MG TABLET PO SCH ×2 (10:43→17:44)
[2019-03-01] MEDS: APIXABAN 5 MG TABLET PO SCH ×2 (10:43→17:44)
[2019-03-01] MEDS: BUSPIRONE HCL 10 MG TABLET PO SCH ×2 (10:44→17:45)
[2019-03-01] MEDS: SACUBITRIL/VALSARTAN 97 MG/103 MG TABLET PO SCH ×3 (10:44→22:27)
[2019-03-01] MEDS: ISOSORBIDE MONONITRATE 60 MG TAB.ER.24H PO SCH (10:44)
[2019-03-01] MEDS: ASPIRIN 81 MG TABLET, ENT COATED PO SCH (10:44)
[2019-03-01] MEDS: VANCOMYCIN HCL 1,250 MG in DEXTROSE 5%-WATER 250 ML IV SCH (10:45)
[2019-03-01] MEDS: FAMOTIDINE 20 MG TABLET PO SCH ×2 (10:51→17:45)
[2019-03-01 12:56] LABS: ABSOLUTE LYMPHOCYTES (AUTO) 0.5 10^3/uL (0.5-4.7); ABSOLUTE MONOCYTES (AUTO) 0.2 10^3/uL (0.1-1.4); ABSOLUTE NEUT (AUTO) 5.7 10^3/uL (1.7-8.2); BASOPHILS % (AUTO) 0.3 % (0-2); EOSINOPHILS % (AUTO) 0.1 % (0-6); HEMATOCRIT 25.8 % (36.0-47.0); HEMOGLOBIN 8.6 g/dL (12.0-15.5); LYMPHOCYTES % (AUTO) 7.6 % (13-45); MEAN CORPUSCULAR HEMOGLOBIN 29.5 pg (27.0-33.4); MEAN CORPUSCULAR HGB CONC 33.5 g/dL (32.0-36.0); MEAN CORPUSCULAR VOLUME 88 fl (80-97); MONOCYTES % (AUTO) 2.6 % (3-13); PLATELET COUNT 158 10^3/uL (150-450); RED BLOOD COUNT 2.94 10^6/uL (3.72-5.28); RED CELL DISTRIBUTION WIDTH 17.8 % (11.5-14.0); SEGMENTED NEUTROPHILS % (AUTO) 89.4 % (42-78); TOTAL CELLS COUNTED % (AUTO) 100 %; WHITE BLOOD COUNT 6.4 10^3/uL (4.0-10.5)
[2019-03-01] MEDS: ACETAMINOPHEN 325 MG TABLET PO PRN ×2 (13:21→17:57)
--- NOTE | 2019-03-01 14:11 | PDOC CRITICAL CARE PROG REPORT ---
General Date:: 02/28/19 ICU Day:: 21 Hospital Day:: 21 Resuscitation Status: Full Code Medical Power of Vessel Scrapper: DaughterAparna Events in the past 12 to 24 Hours:: Extubated and starting PO meds and diet. Review of systems relevant to events:: Respiratory and cardiac Reason for ICU Addmission:: Respiratory failure - Medications: Medications reviewed and adjusted accordingly: Yes Vasopressors:: None Sedation:: None Physical Exam Vital Signs: Temp Pulse Resp BP Pulse Ox 101.1 F H 70 17 117/65 98 03/01/19 12:01 03/01/19 12:00 03/01/19 12:01 03/01/19 12:01 03/01/19 12:01 Intake & Output 02/28/19 03/01/19 03/02/19 06:59 06:59 06:59 Intake Total 600 0 350 Output Total 21963 1795 320 Balance -99546 -1795 30 Weight 108.1 kg 112.2 kg Weight/Height Weight 112.2 kg Height 5 ft 4 in General appearance: PRESENT: no acute distress, well-developed, well-nourished Head exam: PRESENT: atraumatic, normocephalic Eye exam: PRESENT: conjunctiva pink, EOMI, PERRLA. ABSENT: scleral icterus Ear exam: PRESENT: normal external ear exam Mouth exam: PRESENT: moist, tongue midline Respiratory exam: PRESENT: clear to auscultation renu, decreased breath sounds. ABSENT: rales, rhonchi, wheezes Cardiovascular exam: PRESENT: RRR. ABSENT: diastolic murmur, rubs, systolic murmur Pulses: PRESENT: normal dorsalis pedis pul Vascular exam: PRESENT: normal capillary refill GI/Abdominal exam: PRESENT: normal bowel sounds, soft. ABSENT: distended, guarding, mass, organolmegaly, rebound, tenderness Rectal exam: PRESENT: deferred Gentrourinary exam: PRESENT: indwelling catheter Extremities exam: PRESENT: pedal edema Neurological exam: PRESENT: alert, awake, oriented to person, oriented to place, oriented to time, oriented to situation, CN II-XII grossly intact. ABSENT: motor sensory deficit Skin exam: PRESENT: dry, intact, warm. ABSENT: cyanosis, rash Tubes/Lines: PRESENT: Central Line Laboratory/Radiographs Laboratory Results: 03/01/19 12:44 03/01/19 04:00 02/27/19 03/01/19 03/01/19 06:55 04:00 04:00 WBC 5.0 RBC 2.34 L Hgb 6.8 L Hct 20.5 L MCV 88 MCH 28.9 MCHC 33.1 RDW 18.0 H Plt Count 142 L Seg Neutrophils % 86.7 H Sodium 142.2 Potassium 3.5 L Chloride 99 Carbon Dioxide 37 H Anion Gap 6 BUN 15 Creatinine 1.71 H Est GFR ( Amer) 39 L Glucose 118 H Calcium 7.9 L Blood Type B POSITIVE Antibody Screen NEGATIVE 03/01/19 12:44 WBC 6.4 RBC 2.94 L Hgb 8.6 L Hct 25.8 L MCV 88 MCH 29.5 MCHC 33.5 RDW 17.8 H Plt Count 158 Seg Neutrophils % 89.4 H Sodium Potassium Chloride Carbon Dioxide Anion Gap BUN Creatinine Est GFR ( Amer) Glucose Calcium Blood Type Antibody Screen 02/08/19 02/08/19 02/08/19 04:06 04:06 05:30 Creatine Kinase Cancelled 33 CK-MB (CK-2) Cancelled Troponin I Cancelled NT-Pro-B Natriuret Pep Cancelled 02/08/19 02/11/19 02/13/19 05:45 03:18 01:22 Creatine Kinase CK-MB (CK-2) < 0.22 Troponin I 0.043 NT-Pro-B Natriuret Pep 7610 H 1970 H 34413 H Impressions: Chest CT 02/10/19 00:00 IMPRESSION: No pneumothorax. No pleural effusions. Bibasilar consolidation in both lower lobes. Slightly increased interstitial thickening, basilar predominance. Scattered pulmonary cysts and ground-glass opacities are again noted. Tubes and lines in expected positions. Chest X-Ray 02/26/19 13:22 IMPRESSION: Tubes and catheters as described. Cardiomegaly with pulmonary edema that shows slight improvement. KUB X-Ray 02/26/19 13:25 IMPRESSION: NG tube tip overlies body of stomach, side port near the GE junction above the diaphragm. All labs, radiographs, diagnostic studies and EKGs were personally reviewed: Yes In addition, reports of radiographic and diagnostic studies were read: Yes Assessment and Plan - Diagnosis (1) ARDS (adult respiratory distress syndrome) Is this a current diagnosis for this admission?: Yes Plan: Not ARDS. Patient has a po2/FiO2 ratio of 155 which is in ARDS range. However the pulmonary edema after review is nearly all cardiac. Her infection and sepsis not withstanding. Her pulmonary status has a confounding factor of systolic CHF which is still active. (2) Acute on chronic systolic (congestive) heart failure Is this a current diagnosis for this admission?: Yes Plan: PO diuretics restarted. (3) Acute respiratory failure with hypoxia Is this a current diagnosis for this admission?: Yes Plan: Seems resolved for now. (4) Ischemic cardiomyopathy with implantable cardioverter-defibrillator (ICD) Is this a current diagnosis for this admission?: Yes Plan: Stable with an EF 25%. (5) MRSA bacteremia Is this a current diagnosis for this admission?: Yes Plan: Need for usp antibiotics. (6) Atrial fibrillation Qualifiers: Atrial fibrillation type: longstanding persistent Qualified Code(s): I48.11 - Longstanding persistent atrial fibrillation Is this a current diagnosis for this admission?: Yes Plan: PO meds to continue. (7) MRSA (methicillin resistant staphylococcus aureus) pneumonia Qualifiers: Laterality: bilateral Lung location: unspecified part of lung Qualified Code(s): J15.212 - Pneumonia due to Methicillin resistant Staphylococcus aureus Is this a current diagnosis for this admission?: Yes Plan: Continue vancomycin (8) Acute kidney injury Is this a current diagnosis for this admission?: Yes Plan: going up. Watch vanco trough. With restart of diuresis we may see a bump up in Cr. (9) Acute lung injury associated with vaping Is this a current diagnosis for this admission?: No Plan: Not a current problem. (10) Amiodarone toxicity Qualifiers: Encounter type: initial encounter Injury intent: accidental or unintentional Qualified Code(s): T46.2X1A - Poisoning by other antidysrhythmic drugs, accidental (unintentional), initial encounter Is this a current diagnosis for this admission?: Yes Plan: No cough. Not a current problem. Plan Summary: Keep extubated, startPO. Change to PO meds. Watch kidney function carefully. Critical Time Critical Time (minutes): 40 Level of Care: ICU Anticipated discharge: Home Within: Other - Too soon to tell. -: 1. The care of a critical patient is a dynamic process. This note is a housing management representative synopsis but static in nature. The timeframe for treatments given in order is not necessarily the actual time these treatments may have been done. 2. This patient requires critical care secondary to ongoing requirements for therapy not offered or safe outside the critical care environment. Transfer to a lower level of care will result in altered life or limb morbidity and mortality. 3. Multidisciplinary rounds completed. 4. ABCDE bundle addressed.
--- NOTE | 2019-03-01 19:19 | Progress Note ---
Provider Note Provider Note: CARDIOLOGY PROGRESS NOTE by Dr. Griselda Cruz on 02/28/2019. SUBJECTIVE: The patient is remained off the ventilator. She states there is no shortness of breath at rest. She denies any chest pain or discomfort. There is no recurrence of atrial fibrillation. There is no ventricular arrhythmia seen on the monitor. There is no firing of the AICD. The patient is anticoagulation had to be discontinued. There is no TIA CVA symptoms. Blood pressure is on the lower side, but this has not affected her mentation. PHYSICAL EXAMINATION: The patient is morbidly obese Selected Entries 03/01/19 03/01/19 03/01/19 16:46 16:59 17:42 Temperature 99.1 F 98.8 F Heart Rate ( 63 75 Monitors) Blood Pressure 86/44 L Blood Pressure 58 Mean O2 Sat by Pulse 92 Oximetry Fraction of 50 Inspired Oxygen (FIO2) Oxygen Flow Rate 03/01/19 21:14 Temperature Heart Rate ( Monitors) Blood Pressure Blood Pressure Mean O2 Sat by Pulse Oximetry Fraction of 50 Inspired Oxygen (FIO2) Oxygen Flow 3 Rate HEAD: Is atraumatic normocephalic. EYES: Pupils are equal round regular reactive to light. HEENT is negative. SKIN: There is no skin rashes or skin lesions. There is no particular ecchymosis. NECK: Is supple. There is mild JVD present. Carotids are equal there is no bruits. There is no lymphadenopathy. There is no goiter. There is no accessory muscle respiration use. Trachea central. LUNGS: Show no rales of CHF.. There are a few scattered rhonchi, but no r wheezing, especially in the right lung.. There is also dry crackles in the right lower lobe. There is diminished air entry. On percussion there is hyperresonance. On palpation there is no chest wall tenderness. HEART: S1-S2 is heard. There is no S3 gallop. There is no S4 gallop. There is systolic murmur mitral regurgitation tricuspid regurgitation present. There is no aortic stenosis murmur. There is no aortic insufficiency murmur. There is no rub. ABDOMEN: Is obese. Nontender. There is no hepatosplenomegaly. Bowel sounds are well heard. There is no rebound guarding or rigidity. EXTREMITIES: Femorals are deep. Femorals are diminished. There is no femoral bruits. There is decreased leg pulses. There is mild pedal edema. carbon cleaner the patient is conscious awake alert oriented x3 with no focal deficits. PSYCHIATRIC: The patient judgment insight are intact. She does not appear to be agitated or anxious. IMPRESSION/RECOMMENDATION: 1. Acute on chronic respiratory failure. This is much improved. The patient has been extubated. 2. Hypotension: But the patient seems to be awake and alert and oriented. We will stop the patient's Nitropaste. Will decrease the patient's Entresto doage. 3. Acute on chronic systolic heart failure. Patient with LV ejection fraction of 25%. Continue beta-blockers and Entresto. Restart diuretics. 4. Acute exacerbation COPD: Continue bronchodilators and ventilatory support. 5. MRSA pneumonia: Continue antibiotics. 6. Amiodarone has been discontinued due to recurrence of pulmonary toxicity. 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 If need to start the patient on antiarrhythmic, would start the patient on sotalol at a very low dose in view of the compromised renal function. Would avoid amiodarone at all costs. 7. Acute on chronic kidney disease: Watch renal function as we implement aggressive diuresis. At present patient has chronic kidney disease stage III with a GFR of 43 mL per per minute. 8. Cardiomyopathy with severely reduced LV ejection fraction. Continue beta- rip, diuretics and Entresto. 9. Paroxysmal atrial fibrillation: Continue beta-rip. The patient Eliquis had to be stopped due to patient's anemia and also prior occult positive bloo blood in the stools. 10. History of ventricular tachycardia, The patient has an AICD placed. If there is recurrence of ventricular tachycardia or major ventricular ectopic activity then would start the patient on small dose of sotalol. Would avoid amiodarone. 11. Hypertension: Blood pressure well controlled, on current medications. 12. Coronary artery disease: History of [place] and history of coronary bypass graft surgery. No evidence of acute coronary syndrome/non-ST ST elevation [place] this admission. 13. Obstructive sleep apnea. Note patient is noncompliant with CPAP. Most likely has significant pulmonary hypertension. 14. AICD placement: Note the patient's basal rate is around 60 bpm. If the patient's heart failure continues then would recommend increasing the basal heart rate to 80 bpm to help combat the heart failure along with diuretics. 15. MRSA bacteremia: Continue antibiotics. Repeat blood cultures are far negative for growth of MRSA. Patient's prognosis very guarded and poor. Medications reviewed. Medical regimen discussed with the truck mechanic apprentice as well as medical management. Medical decision making is of high complexity. 40 minutes spent on the patient more than 50% of time spent in direct patient care. Will follow.
[2019-03-01 21:40] LABS: HEMATOCRIT 23.4 % (36.0-47.0); MEAN CORPUSCULAR HGB CONC 33.1 g/dL (32.0-36.0); MEAN CORPUSCULAR VOLUME 88 fl (80-97); PLATELET COUNT 154 10^3/uL (150-450); RED BLOOD COUNT 2.67 10^6/uL (3.72-5.28); RED CELL DISTRIBUTION WIDTH 17.6 % (11.5-14.0); WHITE BLOOD COUNT 5.5 10^3/uL (4.0-10.5)
[2019-03-01 21:44] LABS: HEMOGLOBIN 7.7 g/dL (12.0-15.5)
[2019-03-01] MEDS: ATORVASTATIN CALCIUM 80 MG TABLET PO SCH (22:26)
[2019-03-01] MEDS: MELATONIN 1 MG TABLET PO SCH (22:26)
[2019-03-01] MEDS: OXYCODONE HCL IR 5 MG TABLET PO PRN (22:29)
[2019-03-02] MEDS: INSULIN LISPRO 100 UNIT/ML 3 ML VIAL SUBCUT SCH ×4 (00:58→18:34)
[2019-03-02 04:21] LABS: MEAN CORPUSCULAR HEMOGLOBIN 29.2 pg (27.0-33.4); MEAN CORPUSCULAR HGB CONC 33.3 g/dL (32.0-36.0); MEAN CORPUSCULAR VOLUME 88 fl (80-97); PLATELET COUNT 155 10^3/uL (150-450); RED BLOOD COUNT 2.73 10^6/uL (3.72-5.28); RED CELL DISTRIBUTION WIDTH 17.2 % (11.5-14.0); WHITE BLOOD COUNT 5.9 10^3/uL (4.0-10.5)
[2019-03-02 04:39] LABS: BLOOD UREA NITROGEN 17 mg/dL (7-20); CALCIUM 7.8 mg/dL (8.4-10.2); POTASSIUM 3.9 mmol/L (3.6-5.0)
[2019-03-02 04:45] LABS: CHLORIDE 99 mmol/L (98-107)
[2019-03-02 04:46] LABS: CARBON DIOXIDE 37 mmol/L (22-30)
[2019-03-02 04:47] LABS: ANION GAP 4 (5-19)
[2019-03-02 04:48] LABS: GLUCOSE 61 mg/dL (75-110)
[2019-03-02] MEDS: VANCOMYCIN HCL 1,250 MG in DEXTROSE 5%-WATER 250 ML IV SCH (08:20)
[2019-03-02] MEDS: IPRATROPIUM/ALBUTEROL 0.5-2.5 MG/3 ML AMPUL NEB PRN (08:27)
[2019-03-02] MEDS: ASPIRIN 81 MG TABLET, ENT COATED PO SCH (09:37)
[2019-03-02] MEDS: POTASSIUM CHLORIDE 10 MEQ TABLET.ER PO SCH (09:37)
[2019-03-02] MEDS: OXYCODONE HCL IR 5 MG TABLET PO PRN ×2 (09:37→18:24)
[2019-03-02] MEDS: ISOSORBIDE MONONITRATE 30 MG TAB.ER.24H PO SCH (09:38)
[2019-03-02] MEDS: PAROXETINE HCL 20 MG TABLET PO SCH (09:38)
[2019-03-02] MEDS: FAMOTIDINE 20 MG TABLET PO SCH ×2 (09:38→18:22)
[2019-03-02] MEDS: APIXABAN 5 MG TABLET PO SCH ×2 (09:38→18:22)
[2019-03-02] MEDS: BUSPIRONE HCL 10 MG TABLET PO SCH ×2 (09:38→18:22)
[2019-03-02] MEDS: FUROSEMIDE 80 MG TABLET PO SCH ×2 (09:38→18:22)
[2019-03-02] MEDS: SACUBITRIL/VALSARTAN 49 MG/51 MG TABLET NG SCH ×2 (09:40→18:22)
[2019-03-02] MEDS: METOPROLOL TARTRATE 50 MG TABLET NG SCH (09:40)
[2019-03-02] MEDS ORDERED: ISOSORBIDE MONONITRATE 60 MG TAB.ER.24H PO SCH (10:00)
--- NOTE | 2019-03-02 14:47 | PDOC CRITICAL CARE PROG REPORT ---
General Date:: 03/02/19 ICU Day:: Hospital Day:: 22 Resuscitation Status: Full Code Medical Power of Clinical Rehabilitation Aide: DaughterAparna Events in the past 12 to 24 Hours:: BP and O2 status a bit improved but unstable for other than the ICU. Review of systems relevant to events:: CV, Resp, Renal. Reason for ICU Addmission:: Respiratory failure - Medications: Medications reviewed and adjusted accordingly: Yes Vasopressors:: None Sedation:: None Physical Exam Vital Signs: Temp Pulse Resp BP Pulse Ox 99.5 F 64 19 103/74 100 03/02/19 14:01 03/02/19 14:00 03/02/19 14:01 03/02/19 14:00 03/02/19 14:01 Intake & Output 03/01/19 03/02/19 03/03/19 06:59 06:59 06:59 Intake Total 0 600 250 Output Total 1795 2050 615 Balance -1795 -1450 -365 Weight 112.2 kg 109.6 kg Weight/Height Weight 109.6 kg Height 5 ft 4 in General appearance: PRESENT: no acute distress, cooperative, morbidly obese Head exam: PRESENT: atraumatic Eye exam: PRESENT: conjunctiva pink, EOMI, PERRLA. ABSENT: scleral icterus Ear exam: PRESENT: normal external ear exam Mouth exam: PRESENT: moist, tongue midline Respiratory exam: PRESENT: crackles, decreased breath sounds, rhonchi Cardiovascular exam: PRESENT: RRR GI/Abdominal exam: PRESENT: normal bowel sounds, soft. ABSENT: distended, guarding, mass, organolmegaly, rebound, tenderness Rectal exam: PRESENT: deferred Extremities exam: PRESENT: pedal edema Musculoskeletal exam: PRESENT: normal inspection Neurological exam: PRESENT: alert, awake, oriented to person, oriented to place, oriented to time, oriented to situation, CN II-XII grossly intact. ABSENT: motor sensory deficit Skin exam: PRESENT: dry Laboratory/Radiographs Laboratory Results: 03/02/19 03:40 03/02/19 03:40 03/01/19 03/02/19 03/02/19 21:01 03:40 03:40 WBC 5.5 5.9 RBC 2.67 L 2.73 L Hgb 7.7 L 8.0 L Hct 23.4 L 24.0 L MCV 88 88 MCH 29.0 29.2 MCHC 33.1 33.3 RDW 17.6 H 17.2 H Plt Count 154 155 Sodium 140.2 Potassium 3.9 Chloride 99 Carbon Dioxide 37 H Anion Gap 4 L BUN 17 Creatinine 1.74 H Est GFR ( Amer) 38 L Glucose 61 L Calcium 7.8 L 02/24/19 18:12 Blood Blood Culture - Final NO GROWTH IN 5 DAYS 02/24/19 13:58 Blood Blood Culture - Final NO GROWTH IN 5 DAYS 02/08/19 02/08/19 02/08/19 04:06 04:06 05:30 Creatine Kinase Cancelled 33 CK-MB (CK-2) Cancelled Troponin I Cancelled NT-Pro-B Natriuret Pep Cancelled 02/08/19 02/11/19 02/13/19 05:45 03:18 01:22 Creatine Kinase CK-MB (CK-2) < 0.22 Troponin I 0.043 NT-Pro-B Natriuret Pep 7610 H 1970 H 42927 H Impressions: Chest CT 02/10/19 00:00 IMPRESSION: No pneumothorax. No pleural effusions. Bibasilar consolidation in both lower lobes. Slightly increased interstitial thickening, basilar predominance. Scattered pulmonary cysts and ground-glass opacities are again noted. Tubes and lines in expected positions. Chest X-Ray 02/26/19 13:22 IMPRESSION: Tubes and catheters as described. Cardiomegaly with pulmonary edema that shows slight improvement. KUB X-Ray 02/26/19 13:25 IMPRESSION: NG tube tip overlies body of stomach, side port near the GE junction above the diaphragm. All labs, radiographs, diagnostic studies and EKGs were personally reviewed: Yes In addition, reports of radiographic and diagnostic studies were read: Yes Assessment and Plan - Diagnosis (1) ARDS (adult respiratory distress syndrome) Is this a current diagnosis for this admission?: Yes Plan: Not present (2) Acute on chronic systolic (congestive) heart failure Is this a current diagnosis for this admission?: Yes Plan: She may benefit from more diuresis but BP is right now too low. (3) Acute respiratory failure with hypoxia Is this a current diagnosis for this admission?: Yes Plan: Chronic failure worsened by CV status. (4) Ischemic cardiomyopathy with implantable cardioverter-defibrillator (ICD) Is this a current diagnosis for this admission?: Yes Plan: Medications again readjusted by Dr. Ragsdale. Hpe to preserve BP (5) MRSA bacteremia Is this a current diagnosis for this admission?: Yes Plan: Continue Vancomycin (6) Atrial fibrillation Qualifiers: Atrial fibrillation type: longstanding persistent Qualified Code(s): I48.11 - Longstanding persistent atrial fibrillation Is this a current diagnosis for this admission?: Yes Plan: Stable and controlled (7) MRSA (methicillin resistant staphylococcus aureus) pneumonia Qualifiers: Laterality: bilateral Lung location: unspecified part of lung Qualified Code(s): J15.212 - Pneumonia due to Methicillin resistant Staphylococcus aureus Is this a current diagnosis for this admission?: Yes Plan: Continue vancomycin (8) Acute kidney injury Is this a current diagnosis for this admission?: Yes Plan: Vancomycin and CV status contributing. Right now stable. (9) Acute lung injury associated with vaping Is this a current diagnosis for this admission?: No Plan: Resolved (10) Amiodarone toxicity Qualifiers: Encounter type: initial encounter Injury intent: accidental or unintentional Qualified Code(s): T46.2X1A - Poisoning by other antidysrhythmic drugs, accidental (unintentional), initial encounter Is this a current diagnosis for this admission?: Yes Plan: No further amiodarone Plan Summary: There is a desire to transfer to [facility] [place]. However her CV and respiratory status are too fragile to feel comfortable doing this. Critical Time Critical Time (minutes): 35 Level of Care: ICU Anticipated discharge: SNF Within: Other - Too soon to tell. -: 1. The care of a critical patient is a dynamic process. This note is a packaging sales representative synopsis but static in nature. The timeframe for treatments given in order is not necessarily the actual time these treatments may have been done. 2. This patient requires critical care secondary to ongoing requirements for therapy not offered or safe outside the critical care environment. Transfer to a lower level of care will result in altered life or limb morbidity and mortality. 3. Multidisciplinary rounds completed. 4. ABCDE bundle addressed.
--- NOTE | 2019-03-02 19:07 | Progress Note ---
Provider Note Provider Note: CARDIOLOGY PROGRESS NOTE by Dr. Griselda Martin on 03/02/2019 OBJECTIVE: The patient is on a BiPAP. She is slightly improved. She still has some rhonchi and wheezing on the right side. She seems to be slightly volume overloaded. There is no firing of AICD. There is no recurrence of atrial fibrillation. There is no ventricular arrhythmias seen. She has orthopnea but no PND. The patient has no fever. There is no TIA CVA symptoms. The patient is back on Eliquis and there is no bleeding complications. Her anti- CAD/cardiomyopathy medication dosages have been adjusted due to her blood pressure being low. PHYSICAL EXAMINATION: The patient is morbidly obese in no acute distress. Selected Entries 03/02/19 16:00 Temperature 99.9 F Temperature Core Source Pulse Rate 73 Respiratory 22 H Rate Blood Pressure 119/90 H Blood Pressure 119/90 H [Right Upper Arm] Blood Pressure 99 Mean Blood Pressure 99 Mean [Right Upper Arm] Blood Pressure Supine Position [Right Upper Arm] Blood Pressure 119 Systolic [Right Upper Arm] O2 Sat by Pulse 100 Oximetry Oxygen Delivery Bi-pap Method ( includes room air) Percent of 50 Oxygen HEAD: Is atraumatic normocephalic. EYES: Pupils are equal round regular reactive to light. HEENT is negative. SKIN: There is no skin rashes or skin lesions. There is no particular ecchymosis. NECK: Is supple. There is mild JVD present. Carotids are equal there is no bruits. There is no lymphadenop athy. There is no goiter. There is no accessory muscle respiration use. Trachea central. LUNGS: Show no rales of CHF.. There are a few scattered rhonchi, but no r wheezing, especially in the right lung.. There is also dry crackles in the right lower lobe. There is diminished air entry. On percussion there is hyperresonance. On palpation there is no chest wall tenderness. HEART: S1-S2 is heard. There is no S3 gallop. There is no S4 gallop. There is systolic murmur mitral regurgitation tricuspid regurgitation present. There is no aortic stenosis murmur. There is no aortic insufficiency murmur. There is no rub. ABDOMEN: Is obese. Nontender. There is no hepatosplenomegaly. Bowel sounds are well heard. There is no rebound guarding or rigidity. EXTREMITIES: Femorals are deep. Femorals are diminished. There is no femoral bruits. There is decreased leg pulses. There is mild pedal edema. program strategist the patient is conscious awake alert oriented x3 with no focal deficits. PSYCHIATRIC: The patient judgment insight are intact. She does not appear to be agitated or anxious. Labs- All tests 24 hr 03/02/19 03/02/19 03/02/19 00:55 03:40 03:40 WBC 5.9 RBC 2.73 L Hgb 8.0 L Hct 24.0 L MCV 88 MCH 29.2 MCHC 33.3 RDW 17.2 H Plt Count 155 Sodium 140.2 Potassium 3.9 Chloride 99 Carbon Dioxide 37 H Anion Gap 4 L BUN 17 Creatinine 1.74 H Est GFR ( Amer) 38 L Est GFR (MDRD) Non-Af 31 L Glucose 61 L POC Glucose 159 H Calcium 7.8 L 03/02/19 03/02/19 03/02/19 04:49 05:14 11:46 WBC RBC Hgb Hct MCV MCH MCHC RDW Plt Count Sodium Potassium Chloride Carbon Dioxide Anion Gap BUN Creatinine Est GFR ( Amer) Est GFR (MDRD) Non-Af Glucose POC Glucose 82 93 109 Calcium 03/02/19 18:10 WBC RBC Hgb Hct MCV MCH MCHC RDW Plt Count Sodium Potassium Chloride Carbon Dioxide Anion Gap BUN Creatinine Est GFR ( Amer) Est GFR (MDRD) Non-Af Glucose POC Glucose 95 Calcium Chest X-Ray 02/08/19 00:00 IMPRESSION: Slight advancement of endotracheal tube. Otherwise no change. Chest X-Ray 02/08/19 00:00 IMPRESSION: NO PNEUMOTHORAX FOLLOWING CENTRAL LINE PLACEMENT. OTHERWISE NO CHANGE. Chest X-Ray 02/08/19 03:15 IMPRESSION: Cardiomegaly. Endotracheal and enteric tubes are in place. Postsurgical changes of the mediastinum. Airspace opacities right lung base. copyright 2011 [employer]- All Rights Reserved Chest CT 02/10/19 00:00 IMPRESSION: No pneumothorax. No pleural effusions. Bibasilar consolidation in both lower lobes. Slightly increased interstitial thickening, basilar predominance. Scattered pulmonary cysts and ground-glass opacities are again noted. Tubes and lines in expected positions. Chest X-Ray 02/12/19 00:00 IMPRESSION: 1. Bilateral perihilar airspace consolidation which may be due to edema, atelectasis or pneumonia. 2. Marked cardiomegaly. 3. Remote postsurgical changes of the mediastinum. 4. Life support lines and tubes as described above. Chest X-Ray 02/13/19 06:00 IMPRESSION: STABLE APPEARANCE OF THE CHEST. SUPPORT DEVICES UNCHANGED. Chest X-Ray 02/14/19 06:00 IMPRESSION: Mildly worsened bibasilar predominant opacities, likely edema although infection not excluded. Stable support lines and tubes as above. Chest X-Ray 02/15/19 03:06 IMPRESSION: Diffuse persistent but improving interstitial and alveolar opacities throughout both lungs. Stable cardiomegaly. Chest X-Ray 02/16/19 06:00 IMPRESSION: Unchanged radiographic appearance of the chest. KUB X-Ray 02/16/19 15:49 IMPRESSION: The tip and side hole of the enteric tube project within the gastric lumen. Chest X-Ray 02/17/19 06:00 IMPRESSION: Findings most consistent with congestive failure an asymmetric pulmonary edema. Slightly improved. SUPPORT DEVICE(S) IN EXPECTED LOCATIONS. Chest X-Ray 02/18/19 00:00 IMPRESSION: New left IJ line with the tip overlying the proximal SVC. Consider advancement 3-4 cm. KUB X-Ray 02/18/19 00:00 IMPRESSION: NG tube tip in the fundus of the stomach. Chest X-Ray 02/19/19 06:00 IMPRESSION: Tubes and lines in good positioning. Stable marked cardiomegaly and mild residual alveolar and interstitial infiltrates Chest X-Ray 02/20/19 00:00 IMPRESSION: STABLE APPEARANCE OF THE CHEST. SUPPORT DEVICES UNCHANGED. Chest X-Ray 02/25/19 00:00 IMPRESSION: Cardiomegaly with diffuse interstitial edema copyright 2010 [employer]- All Rights Reserved Chest X-Ray 02/26/19 13:22 IMPRESSION: Tubes and catheters as described. Cardiomegaly with pulmonary edema that shows slight improvement. KUB X-Ray 02/26/19 13:25 IMPRESSION: NG tube tip overlies body of stomach, side port near the GE junction above the diaphragm. IMPRESSION/RECOMMENDATION: 1. Acute on chronic respiratory failure. This is much improved. The patient has been extubated. 2. Hypotension: But the patient seems to be awake and alert and oriented. We will stop the patient's Nitropaste. Will decrease the patient's Entresto doage. 3. Acute on chronic systolic heart failure. Patient with LV ejection fraction of 25%. Continue beta-blockers and Entresto. Restart diuretics. 4. Acute exacerbation COPD: Continue bronchodilators and ventilatory support. 5. MRSA pneumonia: Continue antibiotics. 6. Amiodarone has been discontinued due to recurrence of pulmonary toxicity. 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 If need to start the patient on antiarrhythmic, would start the patient on sotalol at a very low dose in view of the compromised renal function. Would avoid amiodarone at all costs. 7. Acute on chronic kidney disease: Watch renal function as we implement aggressive diuresis. At present patient has chronic kidney disease stage III with a GFR of 43 mL per per minute. 8. Cardiomyopathy with severely reduced LV ejection fraction. Her medications adjusted. Her beta-rip has been decreased to Toprol 25 mg XL once daily since she is taking by mouth. Entresto has been decreased to 49/51.. Will decrease the patient's isosorbide mononitrate from 60 mg to 30 mg p.o. daily. 9. Paroxysmal atrial fibrillation: Continue beta-rip. The patient Eliquis had to be stopped due to patient's anemia and also prior occult positive bloo blood in the stools. 10. History of ventricular tachycardia, The patient has an AICD placed. If there is recurrence of ventricular tachycardia or major ventricular ectopic activity then would start the patient on small dose of sotalol. Would avoid amiodarone. 11. Hypertension: Blood pressure well controlled, on current medications. 12. Coronary artery disease: History of [place] and history of coronary bypass graft surgery. No evidence of acute coronary syndrome/non-ST ST elevation IL this admission. 13. Obstructive sleep apnea. Note patient is noncompliant with CPAP. Most likely has significant pulmonary hypertension. 14. AICD placement: Note the patient's basal rate is around 60 bpm. If the patient's heart failure continues then would recommend increasing the basal heart rate to 80 bpm to help combat the heart failure along with diuretics. 15. MRSA bacteremia: Continue antibiotics. Repeat blood cultures are far negative for growth of MRSA. Patient's prognosis very guarded and poor. Medications reviewed. Medical regimen discussed with the convertible power shovel operator as well as medical management. In view of the need to adjust medications, medical decision making is of high complexity. 40 minutes spent on the patient more than 50% of time spent in direct patient care. Will follow.
[2019-03-02] MEDS: ATORVASTATIN CALCIUM 80 MG TABLET PO SCH (22:05)
[2019-03-02] MEDS: MELATONIN 1 MG TABLET PO SCH (22:05)
[2019-03-03 06:45] LABS: VANCOMYCIN,TROUGH 15.3 ug/mL (5.0-20.0)
[2019-03-03] MEDS ORDERED: FUROSEMIDE INJ/PF 40 MG/4 ML SDV IV ONE (06:50)
--- NOTE | 2019-03-03 07:59 | RADIOLOGY REPORT (SQ) ---
Chest single view on 03/03/2019 at 6:31 AM CLINICAL INDICATION: Shortness of breath COMPARISON: 02/26/2019 FINDINGS: ET tube and NG tube have been removed. Right IJ catheter tip extends just into the right atrium. The patient is status post median sternotomy. Multilead left subclavian AICD device is noted in place. Multiple wires are noted projecting over the chest. Cardiomegaly is noted. There has been improvement in bilateral opacities consistent with improved edema and/or pneumonia. Trace pleural effusions may be present. IMPRESSION: Interval extubation with improvement in bilateral edema and/or pneumonia.
[2019-03-03] MEDS: IPRATROPIUM/ALBUTEROL 0.5-2.5 MG/3 ML AMPUL NEB PRN (08:38)
[2019-03-03] MEDS: INSULIN LISPRO 100 UNIT/ML 3 ML VIAL SUBCUT SCH ×3 (09:20→17:39)
[2019-03-03] MEDS: VANCOMYCIN HCL 1,250 MG in DEXTROSE 5%-WATER 250 ML IV SCH (09:21)
[2019-03-03] MEDS: POTASSIUM CHLORIDE 10 MEQ TABLET.ER PO SCH (09:22)
[2019-03-03] MEDS: FUROSEMIDE 80 MG TABLET PO SCH ×2 (09:22→17:08)
[2019-03-03] MEDS: BUSPIRONE HCL 10 MG TABLET PO SCH ×2 (09:22→17:08)
[2019-03-03] MEDS: APIXABAN 5 MG TABLET PO SCH ×2 (09:22→17:08)
[2019-03-03] MEDS: FAMOTIDINE 20 MG TABLET PO SCH ×2 (09:22→17:08)
[2019-03-03] MEDS: METOPROLOL SUCCINATE 25 MG TAB.SR.24H PO SCH (09:22)
[2019-03-03] MEDS: OXYCODONE HCL IR 5 MG TABLET PO PRN ×2 (09:22→17:09)
[2019-03-03] MEDS: SACUBITRIL/VALSARTAN 49 MG/51 MG TABLET NG SCH ×2 (09:23→17:08)
[2019-03-03] MEDS: PAROXETINE HCL 20 MG TABLET PO SCH (09:23)
[2019-03-03] MEDS: ISOSORBIDE MONONITRATE 30 MG TAB.ER.24H PO SCH (09:23)
[2019-03-03] MEDS: ASPIRIN 81 MG TABLET, ENT COATED PO SCH (09:23)
--- NOTE | 2019-03-03 12:59 | PDOC CRITICAL CARE PROG REPORT ---
General Date:: 03/03/19 ICU Day:: 23 Hospital Day:: 23 Resuscitation Status: Full Code Medical Power of Dustless Operator: Daughter, Aparna Events in the past 12 to 24 Hours:: Back on bipap. No change in CXR but pt feels like CHF again Review of systems relevant to events:: CV, Respiratory Reason for ICU Addmission:: Respiratory failure - Medications: Medications reviewed and adjusted accordingly: Yes Vasopressors:: None Sedation:: None Physical Exam Vital Signs: Temp Pulse Resp BP Pulse Ox 99.1 F 61 23 H 111/73 100 03/03/19 12:00 03/03/19 12:00 03/03/19 12:00 03/03/19 12:00 03/03/19 12:00 Intake & Output 03/02/19 03/03/19 03/04/19 06:59 06:59 06:59 Intake Total 600 250 Output Total 2049 2925 1925 Balance -1450 -2525 -1925 Weight 109.6 kg 111.5 kg Weight/Height Weight 111.5 kg Height 5 ft 4 in General appearance: PRESENT: no acute distress, cooperative Head exam: PRESENT: atraumatic, normocephalic Eye exam: PRESENT: conjunctiva pink, EOMI, PERRLA. ABSENT: scleral icterus Ear exam: PRESENT: normal external ear exam Mouth exam: PRESENT: moist, tongue midline Respiratory exam: PRESENT: chest wall tenderness, clear to auscultation renu, decreased breath sounds Cardiovascular exam: PRESENT: other - Paced at 60. GI/Abdominal exam: PRESENT: normal bowel sounds, soft. ABSENT: distended, guarding, mass, organolmegaly, rebound, tenderness Rectal exam: PRESENT: deferred Gentrourinary exam: PRESENT: indwelling catheter Extremities exam: PRESENT: full ROM. ABSENT: calf tenderness, clubbing, pedal edema Musculoskeletal exam: PRESENT: normal inspection Neurological exam: PRESENT: alert, awake, oriented to person, oriented to place, oriented to time, oriented to situation, CN II-XII grossly intact. ABSENT: motor sensory deficit Skin exam: PRESENT: dry, intact, warm. ABSENT: cyanosis, rash Laboratory/Radiographs Laboratory Results: 03/02/19 03:40 03/03/19 06:00 03/03/19 06:00 Creatinine 1.65 H Est GFR ( Amer) 40 L 02/26/19 22:10 Tracheal Aspirate Gram Stain - Final 02/26/19 22:10 Tracheal Aspirate Sputum Culture - Final Proteus Mirabilis Enterobacter Cloacae Greatly Reduced Normal Evelyn 02/08/19 02/08/19 02/08/19 04:06 04:06 05:30 Creatine Kinase Cancelled 33 CK-MB (CK-2) Cancelled Troponin I Cancelled NT-Pro-B Natriuret Pep Cancelled 02/08/19 02/11/19 02/13/19 05:45 03:18 01:22 Creatine Kinase CK-MB (CK-2) < 0.22 Troponin I 0.043 NT-Pro-B Natriuret Pep 7610 H 1970 H 18458 H Impressions: Chest CT 02/10/19 00:00 IMPRESSION: No pneumothorax. No pleural effusions. Bibasilar consolidation in both lower lobes. Slightly increased interstitial thickening, basilar predominance. Scattered pulmonary cysts and ground-glass opacities are again noted. Tubes and lines in expected positions. KUB X-Ray 02/26/19 13:25 IMPRESSION: NG tube tip overlies body of stomach, side port near the GE junction above the diaphragm. Chest X-Ray 03/03/19 00:00 IMPRESSION: Interval extubation with improvement in bilateral edema and/or pneumonia. All labs, radiographs, diagnostic studies and EKGs were personally reviewed: Yes In addition, reports of radiographic and diagnostic studies were read: Yes Assessment and Plan - Diagnosis (1) Acute on chronic systolic (congestive) heart failure Is this a current diagnosis for this admission?: Yes Plan: No radiographic signs, but she is doing better with lasix. On bipap X 1 hour. Will allow further diuresis and try off bipap later toda. (2) Acute respiratory failure with hypoxia Is this a current diagnosis for this admission?: Yes (3) Ischemic cardiomyopathy with implantable cardioverter-defibrillator (ICD) Is this a current diagnosis for this admission?: Yes Plan: No firing, pacing well. (4) MRSA bacteremia Is this a current diagnosis for this admission?: Yes Plan: Continue vancomycin. (5) Atrial fibrillation Qualifiers: Atrial fibrillation type: longstanding persistent Qualified Code(s): I48.11 - Longstanding persistent atrial fibrillation Is this a current diagnosis for this admission?: Yes Plan: Resolved (6) MRSA (methicillin resistant staphylococcus aureus) pneumonia Qualifiers: Laterality: bilateral Lung location: unspecified part of lung Qualified Code(s): J15.212 - Pneumonia due to Methicillin resistant Staphylococcus aureus Is this a current diagnosis for this admission?: Yes Plan: Resolved. (7) Acute kidney injury Is this a current diagnosis for this admission?: Yes Plan: Unchanged Plan Summary: Diuresis and try off bipap later today. Not ready yet for downgrade. Critical Time Critical Time (minutes): 35 Level of Care: ICU Anticipated discharge: Home, SNF Within: Other - Too soon to tell. -: 1. The care of a critical patient is a dynamic process. This note is a insurance claim representative synopsis but static in nature. The timeframe for treatments given in order is not necessarily the actual time these treatments may have been done. 2. This patient requires critical care secondary to ongoing requirements for therapy not offered or safe outside the critical care environment. Transfer to a lower level of care will result in altered life or limb morbidity and mortality. 3. Multidisciplinary rounds completed. 4. ABCDE bundle addressed.
--- NOTE | 2019-03-03 21:37 | Progress Note ---
Provider Note Provider Note: Cardiology PROGRESS note by Dr. Griselda Martin on 03/03/2019. Subjective: The patient is making slow improvement. She is on nasal cannula now. She is off the BiPAP. She states if she has some minimal cough productive very scanty yellowish sputum. There is no chest pain or discomfort. There is no recurrence of atrial fibrillation. There is no ventricular arrhythmia seen on the monitor. There is no bleeding on Eliquis. There is no TIA CVA symptoms. There is no firing of her AICD. Her medication dosages have been adjusted of the patient's blood pressure has come up. PHYSICAL EXAMINATION: The patient morbidly obese in no acute distress. Selected Entries 03/03/19 03/03/19 16:01 16:52 Temperature 99.9 F Heart Rate ( 71 Monitors) Respiratory 20 Rate Blood Pressure 123/62 Blood Pressure 82 Mean O2 Sat by Pulse 91 L Oximetry Fraction of 50 Inspired Oxygen (FIO2) Oxygen Flow 3.5 Rate HEAD: Is atraumatic normocephalic. EYES: Pupils are equal round regular reactive to light. HEENT is negative. SKIN: There is no skin rashes or skin lesions. There is no particular ecchymosis. NECK: Is supple. There is mild JVD present. Carotids are equal there is no bruits. There is no lymphadenopathy. There is no goiter. There is no accessory muscle respiration use. Trachea central. LUNGS: Show no rales of CHF.. There are a few scattered rhonchi, but no r wheezing, especially in the right lung.. There is also dry crackles in the right lower lobe. There is diminished air entry. On percussion there is hyperresonance. On palpation there is no chest wall tenderness. HEART: S1-S2 is heard. There is no S3 gallop. There is no S4 gallop. There is systolic murmur mitral regurgitation tricuspid regurgitation present. There is no aortic stenosis murmur. There is no aortic insufficiency murmur. There is no rub. ABDOMEN: Is obese. Nontender. There is no hepatosplenomegaly. Bowel sounds are well heard. There is no rebound guarding or rigidity. EXTREMITIES: Femorals are deep. Femorals are diminished. There is no femoral bruits. There is decreased leg pulses. There is mild pedal edema. c java developer the patient is conscious awake alert oriented x3 with no focal deficits. PSYCHIATRIC: The patient judgment insight are intact. She does not appear to be agitated or anxious. Chest X-Ray 02/08/19 00:00 IMPRESSION: Slight advancement of endotracheal tube. Otherwise no change. Chest X-Ray 02/08/19 00:00 IMPRESSION: NO PNEUMOTHORAX FOLLOWING CENTRAL LINE PLACEMENT. OTHERWISE NO CHANGE. Chest X-Ray 02/08/19 03:15 IMPRESSION: Cardiomegaly. Endotracheal and enteric tubes are in place. Postsurgical changes of the mediastinum. Airspace opacities right lung base. copyright 2010 [employer]- All Rights Reserved Chest CT 02/10/19 00:00 IMPRESSION: No pneumothorax. No pleural effusions. Bibasilar consolidation in both lower lobes. Slightly increased interstitial thickening, basilar predominance. Scattered pulmonary cysts and ground-glass opacities are again noted. Tubes and lines in expected positions. Chest X-Ray 02/12/19 00:00 IMPRESSION: 1. Bilateral perihilar airspace consolidation which may be due to edema, atelectasis or pneumonia. 2. Marked cardiomegaly. 3. Remote postsurgical changes of the mediastinum. 4. Life support lines and tubes as described above. Chest X-Ray 02/13/19 06:00 IMPRESSION: STABLE APPEARANCE OF THE CHEST. SUPPORT DEVICES UNCHANGED. Chest X-Ray 02/14/19 06:00 IMPRESSION: Mildly worsened bibasilar predominant opacities, likely edema although infection not excluded. Stable support lines and tubes as above. Chest X-Ray 02/15/19 03:06 IMPRESSION: Diffuse persistent but improving interstitial and alveolar opacities throughout both lungs. Stable cardiomegaly. Chest X-Ray 02/16/19 06:00 IMPRESSION: Unchanged radiographic appearance of the chest. KUB X-Ray 02/16/19 15:49 IMPRESSION: The tip and side hole of the enteric tube project within the gastric lumen. Chest X-Ray 02/17/19 06:00 IMPRESSION: Findings most consistent with congestive failure an asymmetric pulmonary edema. Slightly improved. SUPPORT DEVICE(S) IN EXPECTED LOCATIONS. Chest X-Ray 02/18/19 00:00 IMPRESSION: New left IJ line with the tip overlying the proximal SVC. Consider advancement 3-4 cm. KUB X-Ray 02/18/19 00:00 IMPRESSION: NG tube tip in the fundus of the stomach. Chest X-Ray 02/19/19 06:00 IMPRESSION: Tubes and lines in good positioning. Stable marked cardiomegaly and mild residual alveolar and interstitial infiltrates Chest X-Ray 02/20/19 00:00 IMPRESSION: STABLE APPEARANCE OF THE CHEST. SUPPORT DEVICES UNCHANGED. Chest X-Ray 02/25/19 00:00 IMPRESSION: Cardiomegaly with diffuse interstitial edema copyright 2010 [employer]- All Rights Reserved Chest X-Ray 02/26/19 13:22 IMPRESSION: Tubes and catheters as described. Cardiomegaly with pulmonary edema that shows slight improvement. KUB X-Ray 02/26/19 13:25 IMPRESSION: NG tube tip overlies body of stomach, side port near the GE junction above the diaphragm. Chest X-Ray 03/03/19 00:00 IMPRESSION: Interval extubation with improvement in bilateral edema and/or pneumonia. Labs- All tests 24 hr 03/03/19 03/03/19 03/03/19 06:00 06:00 11:57 Creatinine 1.65 H Est GFR ( Amer) 40 L Est GFR (MDRD) Non-Af 33 L POC Glucose 113 H Time Trough Drawn 0600 Vancomycin Trough 15.3 03/03/19 16:40 Creatinine Est GFR ( Amer) Est GFR (MDRD) Non-Af POC Glucose 164 H Time Trough Drawn Vancomycin Trough 02/26/19 22:10 Gram Stain - Final Tracheal Aspirate Sputum Culture - Final Proteus Mirabilis Enterobacter Cloacae Greatly Reduced Normal Evelyn 02/24/19 18:12 Blood Culture - Final Blood NO GROWTH IN 5 DAYS 02/24/19 13:58 Blood Culture - Final Blood NO GROWTH IN 5 DAYS 02/18/19 09:14 Blood Culture - Final Blood NO GROWTH IN 5 DAYS 02/18/19 08:30 Blood Culture (PCR) - Final Blood Blood Culture - Final Staphylococcus Aureus Mrsa (Meth Resis Staph Aureus) IMPRESSION/RECOMMENDATION: 1. Acute on chronic respiratory failure. This is much improved. The patient has been extubated. 2. Hypotension: But the patient seems to be awake and alert and oriented. We will stop the patient's Nitropaste. Will decrease the patient's Entresto doage. 3. Acute on chronic systolic heart failure. Patient with LV ejection fraction of 25%. Continue beta-blockers and Entresto. Restart diuretics. 4. Acute exacerbation COPD: Continue bronchodilators and ventilatory support. 5. MRSA pneumonia: Continue antibiotics. 6. Amiodarone has been discontinued due to recurrence of pulmonary toxicity. 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 If need to start the patient on antiarrhythmic, would start the patient on sotalol at a very low dose in view of the compromised renal function. Would avoid amiodarone at all costs. 7. Acute on chronic kidney disease: Watch renal function as we implement aggressive diuresis. At present patient has chronic kidney disease stage III with a GFR of 43 mL per per minute. 8. Cardiomyopathy with severely reduced LV ejection fraction. Her medications adjusted. Her beta-rip has been decreased to Toprol 25 mg XL once daily since she is taking by mouth. Entresto has been decreased to 49/51.. Will decrease the patient's isosorbide mononitrate from 60 mg to 30 mg p.o. daily. 9. Paroxysmal atrial fibrillation: Continue beta-rip. The patient Eliquis had to be stopped due to patient's anemia and also prior occult positive bloo blood in the stools. 10. History of ventricular tachycardia, The patient has an AICD placed. If there is recurrence of ventricular tachycardia or major ventricular ectopic activity then would start the patient on small dose of sotalol. Would avoid amiodarone. 11. Hypertension: Blood pressure well controlled, on current medications. 12. Coronary artery disease: History of [place] and history of coronary bypass graft surgery. No evidence of acute coronary syndrome/non-ST ST elevation [place] this admission. 13. Obstructive sleep apnea. Note patient has been noncompliant with CPAP. Most likely has significant pulmonary hypertension. 14. AICD placement: Note the patient's basal rate is around 60 bpm. If the patient's heart failure continues then would recommend increasing the basal heart rate to 80 bpm to help combat the heart failure along with diuretics. 15. MRSA bacteremia: Continue antibiotics. Repeat blood cultures are far negative for growth of MRSA. Patient's prognosis very guarded and poor. Medications reviewed. Medical regimen discussed with the chief load dispatcher as well as medical management. In view of the need to adjust medications, medical decision making is of moderate comp lexity. 40 minutes spent on the patient more than 50% of time spent in direct patient care. Will follow.
[2019-03-03] MEDS: ATORVASTATIN CALCIUM 80 MG TABLET PO SCH (22:38)
[2019-03-03] MEDS: MELATONIN 1 MG TABLET PO SCH (22:39)
[2019-03-04 06:13] LABS: BLOOD UREA NITROGEN 17 mg/dL (7-20); CALCIUM 8.3 mg/dL (8.4-10.2); CARBON DIOXIDE 39 mmol/L (22-30); GLUCOSE 88 mg/dL (75-110); POTASSIUM 4.1 mmol/L (3.6-5.0)
[2019-03-04 06:54] LABS: CHLORIDE 93 mmol/L (98-107)
[2019-03-04 06:58] LABS: ANION GAP 4 (5-19)
[2019-03-04] MEDS: VANCOMYCIN HCL 1,250 MG in DEXTROSE 5%-WATER 250 ML IV SCH (09:39)
[2019-03-04] MEDS: BUSPIRONE HCL 10 MG TABLET PO SCH ×2 (09:42→18:48)
[2019-03-04] MEDS: POTASSIUM CHLORIDE 10 MEQ TABLET.ER PO SCH (09:42)
[2019-03-04] MEDS: APIXABAN 5 MG TABLET PO SCH (09:43)
[2019-03-04] MEDS: PAROXETINE HCL 20 MG TABLET PO SCH (09:43)
[2019-03-04] MEDS: ISOSORBIDE MONONITRATE 30 MG TAB.ER.24H PO SCH (09:43)
[2019-03-04] MEDS: FAMOTIDINE 20 MG TABLET PO SCH ×2 (09:43→18:48)
[2019-03-04] MEDS: FUROSEMIDE 80 MG TABLET PO SCH ×2 (09:43→18:47)
[2019-03-04] MEDS: ASPIRIN 81 MG TABLET, ENT COATED PO SCH (09:43)
[2019-03-04] MEDS: SACUBITRIL/VALSARTAN 49 MG/51 MG TABLET NG SCH (09:43)
[2019-03-04] MEDS: METOPROLOL SUCCINATE 25 MG TAB.SR.24H PO SCH ×2 (09:43→22:57)
[2019-03-04] MEDS: OXYCODONE HCL IR 5 MG TABLET PO PRN ×2 (09:50→18:52)
--- NOTE | 2019-03-04 10:35 | PDOC CRITICAL CARE PROG REPORT ---
General Date:: 03/04/19 ICU Day:: 24 Hospital Day:: 24 Resuscitation Status: Full Code Medical Power of Airplane Pilot Commercial: DaughterAparna Events in the past 12 to 24 Hours:: Improved respiratory status, stable BP Review of systems relevant to events:: CV and respiratory Reason for ICU Addmission:: Respiratory failure, simone for intubation. - Medications: Medications reviewed and adjusted accordingly: Yes Vasopressors:: None Sedation:: None Physical Exam Vital Signs: Temp Pulse Resp BP Pulse Ox 98.4 F 63 25 H 101/63 97 03/04/19 06:01 03/04/19 08:12 03/04/19 08:12 03/04/19 07:57 03/04/19 08:12 Intake & Output 03/03/19 03/04/19 03/05/19 06:59 06:59 06:59 Intake Total 250 916 Output Total 2775 5665 220 Balance -2525 -4749 -220 Weight 111.5 kg 107.5 kg Weight/Height Weight 107.5 kg Height 5 ft 4 in General appearance: PRESENT: no acute distress, cooperative, morbidly obese Head exam: PRESENT: atraumatic, normocephalic Eye exam: PRESENT: conjunctiva pink, EOMI, PERRLA. ABSENT: scleral icterus Ear exam: PRESENT: normal external ear exam Mouth exam: PRESENT: moist, tongue midline Respiratory exam: PRESENT: clear to auscultation renu, decreased breath sounds. ABSENT: rales, rhonchi, wheezes Cardiovascular exam: PRESENT: other - Paced at 60 Pulses: PRESENT: normal dorsalis pedis pul GI/Abdominal exam: PRESENT: normal bowel sounds, soft. ABSENT: distended, guarding, mass, organolmegaly, rebound, tenderness Rectal exam: PRESENT: deferred Gentrourinary exam: PRESENT: indwelling catheter Extremities exam: PRESENT: full ROM. ABSENT: calf tenderness, clubbing, pedal edema Tubes/Lines: PRESENT: Central Line Laboratory/Radiographs Laboratory Results: 03/02/19 03:40 03/04/19 05:30 03/04/19 05:30 Sodium 136.4 L Potassium 4.1 Chloride 93 L Carbon Dioxide 39 H Anion Gap 4 L BUN 17 Creatinine 2.06 H Est GFR ( Amer) 31 L Glucose 88 Calcium 8.3 L 02/26/19 22:10 Tracheal Aspirate Gram Stain - Final 02/26/19 22:10 Tracheal Aspirate Sputum Culture - Final Proteus Mirabilis Enterobacter Cloacae Greatly Reduced Normal Evelyn 02/08/19 02/08/19 02/08/19 04:06 04:06 05:30 Creatine Kinase Cancelled 33 CK-MB (CK-2) Cancelled Troponin I Cancelled NT-Pro-B Natriuret Pep Cancelled 02/08/19 02/11/19 02/13/19 05:45 03:18 01:22 Creatine Kinase CK-MB (CK-2) < 0.22 Troponin I 0.043 NT-Pro-B Natriuret Pep 7610 H 1970 H 69083 H Impressions: Chest CT 02/10/19 00:00 IMPRESSION: No pneumothorax. No pleural effusions. Bibasilar consolidation in both lower lobes. Slightly increased interstitial thickening, basilar predominance. Scattered pulmonary cysts and ground-glass opacities are again noted. Tubes and lines in expected positions. KUB X-Ray 02/26/19 13:25 IMPRESSION: NG tube tip overlies body of stomach, side port near the GE junction above the diaphragm. Chest X-Ray 03/03/19 00:00 IMPRESSION: Interval extubation with improvement in bilateral edema and/or pneumonia. All labs, radiographs, diagnostic studies and EKGs were personally reviewed: Yes In addition, reports of radiographic and diagnostic studies were read: Yes Assessment and Plan - Diagnosis (1) Acute on chronic systolic (congestive) heart failure Is this a current diagnosis for this admission?: Yes Plan: Seems stable on current regimen including increased dose of entresto. (2) Acute respiratory failure with hypoxia Is this a current diagnosis for this admission?: Yes Plan: Resolved. Patient does best with bipap at night and PRN during the day. (3) Ischemic cardiomyopathy with implantable cardioverter-defibrillator (ICD) Is this a current diagnosis for this admission?: Yes Plan: Stable, no firing (4) MRSA bacteremia Is this a current diagnosis for this admission?: Yes Plan: Will continue with antibiotics. RIJ has been in place > one week. Would like to remove and replace with PICC on Tuesday. (5) Atrial fibrillation Qualifiers: Atrial fibrillation type: longstanding persistent Qualified Code(s): I48.11 - Longstanding persistent atrial fibrillation Is this a current diagnosis for this admission?: Yes Plan: With paced rythym, resolved. (6) MRSA (methicillin resistant staphylococcus aureus) pneumonia Qualifiers: Laterality: bilateral Lung location: unspecified part of lung Qualified Code(s): J15.212 - Pneumonia due to Methicillin resistant Staphylococcus aureus Is this a current diagnosis for this admission?: Yes Plan: Continue antibiotics. (7) Acute kidney injury Is this a current diagnosis for this admission?: Yes Plan: Cr now up to 2.0. Hold vancomycin. Plan Summary: [place] [facility] [place] Time Critical Time (minutes): 30 Level of Care: IMCU Anticipated discharge: SNF Within: Other - Too soon to tell. -: 1. The care of a critical patient is a dynamic process. This note is a credit and collections representative synopsis but static in nature. The timeframe for treatments given in order is not necessarily the actual time these treatments may have been done. 2. This patient requires critical care secondary to ongoing requirements for therapy not offered or safe outside the critical care environment. Transfer to a lower level of care will result in altered life or limb morbidity and mor tality. 3. Multidisciplinary rounds completed. 4. ABCDE bundle addressed.
--- NOTE | 2019-03-04 15:20 | Progress Note ---
Provider Note Provider Note: CARDIOLOGY PROGRESS NOTE by Dr. Griselda Martin on 03/04/2019. All SUBJECTIVE: The patient denies any chest pain or discomfort. There is no shortness of breath. She has occasional cough without any active mucus/sputum production. There is no hemoptysis. There is no chest pain discomfort. There is no PND, but still has some orthopnea. She is now on nasal cannula. The plan is to put a PICC line and transfer the patient out of ICU. The PICC line is for antibiotics. There is no TIA CVA symptoms. There is no bleeding on Xarelto. There is no recurrence of atrial fibrillation. There is no ventricular arrhythmia seen on the monitor. There is no firing of the AICD. PHYSICAL EXAMINATION: The patient morbidly obese at present in no acute distress. Selected Entries 03/04/19 12:00 Temperature 100.2 F Temperature Core Source Pulse Rate 65 Respiratory 20 Rate Blood Pressure 155/83 H [Right Upper Arm] Blood Pressure 107 Mean [Right Upper Arm] O2 Sat by Pulse 98 Oximetry Oxygen Delivery Nasal Cannula Method ( includes room air) Oxygen Flow 3.5 Rate HEAD: Is atraumatic normocephalic. EYES: Pupils are equal round regular reactive to light. HEENT is negative. SKIN: There is no skin rashes or skin lesions. There is no particular ecchymosis. NECK: Is supple. There is mild JVD present. Carotids are equal there is no bruits. There is no lymphadenopathy. There is no goiter. There is no accessory muscle respiration use. Trachea central. LUNGS: Show no rales of CHF.. There are a few scattered rhonchi, but no r wheezing, especially in the right lung.. There is also dry crackles in the right lower lobe. There is diminished air entry. On percussion there is hyperresonance. On palpation there is no chest wall tenderness. HEART: S1-S2 is heard. There is no S3 gallop. There is no S4 gallop. There is systolic murmur mitral regurgitation tricuspid regurgitation present. There is no aortic stenosis murmur. There is no aortic insufficiency murmur. There is no rub. ABDOMEN: Is obese. Nontender. There is no hepatosplenomegaly. Bowel sounds are well heard. There is no rebound guarding or rigidity. EXTREMITIES: Femorals are deep. Femorals are diminished. There is no femoral bruits. There is decreased leg pulses. There is mild pedal edema. spring intern the patient is conscious awake alert oriented x3 with no focal deficits. PSYCHIATRIC: The patient judgment insight are intact. She does not appear to be agitated or anxious. Labs- All tests 24 hr 03/03/19 03/04/19 16:40 05:30 Sodium 136.4 L Potassium 4.1 Chloride 93 L Carbon Dioxide 39 H Anion Gap 4 L BUN 17 Creatinine 2.06 H Est GFR ( Amer) 31 L Est GFR (MDRD) Non-Af 26 L Glucose 88 POC Glucose 164 H Calcium 8.3 L Chest X-Ray 02/08/19 00:00 IMPRESSION: Slight advancement of endotracheal tube. Otherwise no change. Chest X-Ray 02/08/19 00:00 IMPRESSION: NO PNEUMOTHORAX FOLLOWING CENTRAL LINE PLACEMENT. OTHERWISE NO CHANGE. Chest X-Ray 02/08/19 03:15 IMPRESSION: Cardiomegaly. Endotracheal and enteric tubes are in place. Postsurgical changes of the mediastinum. Airspace opacities right lung base. copyright 2011 [employer]- All Rights Reserved Chest CT 02/10/19 00:00 IMPRESSION: No pneumothorax. No pleural effusions. Bibasilar consolidation in both lower lobes. Slightly increased interstitial thickening, basilar predominance. Scattered pulmonary cysts and ground-glass opacities are again noted. Tubes and lines in expected positions. Chest X-Ray 02/12/19 00:00 IMPRESSION: 1. Bilateral perihilar airspace consolidation which may be due to edema, atelectasis or pneumonia. 2. Marked cardiomegaly. 3. Remote postsurgical changes of the mediastinum. 4. Life support lines and tubes as described above. Chest X-Ray 02/13/19 06:00 IMPRESSION: STABLE APPEARANCE OF THE CHEST. SUPPORT DEVICES UNCHANGED. Chest X-Ray 02/14/19 06:00 IMPRESSION: Mildly worsened bibasilar predominant opacities, likely edema although infection not excluded. Stable support lines and tubes as above. Chest X-Ray 02/15/19 03:06 IMPRESSION: Diffuse persistent but improving interstitial and alveolar opacities throughout both lungs. Stable cardiomegaly. Chest X-Ray 02/16/19 06:00 IMPRESSION: Unchanged radiographic appearance of the chest. KUB X-Ray 02/16/19 15:49 IMPRESSION: The tip and side hole of the enteric tube project within the gastric lumen. Chest X-Ray 02/17/19 06:00 IMPRESSION: Findings most consistent with congestive failure an asymmetric pulmonary edema. Slightly improved. SUPPORT DEVICE(S) IN EXPECTED LOCATIONS. Chest X-Ray 02/18/19 00:00 IMPRESSION: New left IJ line with the tip overlying the proximal SVC. Consider advancement 3-4 cm. KUB X-Ray 02/18/19 00:00 IMPRESSION: NG tube tip in the fundus of the stomach. Chest X-Ray 02/19/19 06:00 IMPRESSION: Tubes and lines in good positioning. Stable marked cardiomegaly and mild residual alveolar and interstitial infiltrates Chest X-Ray 02/20/19 00:00 IMPRESSION: STABLE APPEARANCE OF THE CHEST. SUPPORT DEVICES UNCHANGED. Chest X-Ray 02/25/19 00:00 IMPRESSION: Cardiomegaly with diffuse interstitial edema copyright 2010 [employer]- All Rights Reserved Chest X-Ray 02/26/19 13:22 IMPRESSION: Tubes and catheters as described. Cardiomegaly with pulmonary edema that shows slight improvement. KUB X-Ray 02/26/19 13:25 IMPRESSION: NG tube tip overlies body of stomach, side port near the GE junction above the diaphragm. Chest X-Ray 03/03/19 00:00 IMPRESSION: Interval extubation with improvement in bilateral edema and/or pneumonia. IMPRESSION/RECOMMENDATION: 1. Acute on chronic respiratory failure. This is much improved. The patient has been extubated. 2. Hypotension: But the patient seems to be awake and alert and oriented. We will stop the patient's Nitropaste. Since the patient's blood pressure is much improved, will increase the patient's Entresto doage to her previous dosing. We will also make the patient's Toprol-XL 25 mg p.o. twice daily. Continue the patient on Imdur 30 mg p.o. daily, and will increase it in a couple of days if her blood pressure still remains stable.. 3. Acute on chronic systolic heart failure. Patient with LV ejection fraction of 25%. Continue beta-blockers and Entresto. Restart diuretics. 4. Acute exacerbation COPD: Continue bronchodilators and ventilatory support. 5. MRSA pneumonia: Continue antibiotics. 6. Amiodarone has been discontinued due to recurrence of pulmonary toxicity. 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 If need to start the patient on antiarrhythmic, would start the patient on sotalol at a very low dose in view of the compromised renal function. Would avoid amiodarone at all costs. 7. Acute on chronic kidney disease: Watch renal function as we implement aggressive diuresis. At present patient has chronic kidney disease stage III with a GFR of 43 mL per per minute. 8. Cardiomyopathy with severely reduced LV ejection fraction. Her medications adjusted. Her beta-rip has been decreased to Toprol 25 mg XL once daily since she is taking by mouth. Entresto has been decreased to 49/51.. Will decrease the patient's isosorbide mononitrate from 60 mg to 30 mg p.o. daily. 9. Paroxysmal atrial fibrillation: Continue beta-rip. The patient Eliquis had to be stopped due to patient's anemia and also prior occult positive bloo bl ood in the stools. 10. History of ventricular tachycardia, The patient has an AICD placed. If there is recurrence of ventricular tachycardia or major ventricular ectopic activity then would start the patient on small dose of sotalol. Would avoid amiodarone. 11. Hypertension: Blood pressure well controlled, on current medications. 12. Coronary artery disease: History of [place] and history of coronary bypass graft surgery. No evidence of acute coronary syndrome/non-ST ST elevation [place] this admission. 13. Obstructive sleep apnea. Note patient has been noncompliant with CPAP. Most likely has significant pulmonary hypertension. 14. AICD placement: Note the patient's basal rate is around 60 bpm. If the patient's heart failure continues then would recommend increasing the basal heart rate to 80 bpm to help combat the heart failure along with diuretics. 15. MRSA bacteremia: Continue antibiotics. Repeat blood cultures are far negative for growth of MRSA. Patient's prognosis very guarded and poor. Medications reviewed. Medical regimen discussed with the surgical clinical reviewer as well as medical management. In view of the need to adjust medications, medical decision making is of high comple xity. 40 minutes spent on the patient more than 50% of time spent in direct patient care. Will follow.
[2019-03-04] MEDS: MELATONIN 1 MG TABLET PO SCH (22:56)
[2019-03-04] MEDS: ATORVASTATIN CALCIUM 80 MG TABLET PO SCH (22:56)
[2019-03-04] MEDS: SACUBITRIL/VALSARTAN 97 MG/103 MG TABLET PO SCH (22:56)
[2019-03-05 06:03] LABS: ABSOLUTE LYMPHOCYTES (AUTO) 0.6 10^3/uL (0.5-4.7); ABSOLUTE MONOCYTES (AUTO) 0.3 10^3/uL (0.1-1.4); ABSOLUTE NEUT (AUTO) 2.1 10^3/uL (1.7-8.2); BASOPHILS % (AUTO) 0.5 % (0-2); EOSINOPHILS % (AUTO) 0.2 % (0-6); HEMATOCRIT 25.6 % (36.0-47.0); HEMOGLOBIN 8.4 g/dL (12.0-15.5); LYMPHOCYTES % (AUTO) 20.2 % (13-45); MEAN CORPUSCULAR HGB CONC 32.9 g/dL (32.0-36.0); MEAN CORPUSCULAR VOLUME 88 fl (80-97); MONOCYTES % (AUTO) 9.2 % (3-13); PLATELET COUNT 197 10^3/uL (150-450); RED CELL DISTRIBUTION WIDTH 18.3 % (11.5-14.0); SEGMENTED NEUTROPHILS % (AUTO) 69.9 % (42-78); TOTAL CELLS COUNTED % (AUTO) 100 %
[2019-03-05 06:23] LABS: ANION GAP 5 (5-19); BLOOD UREA NITROGEN 15 mg/dL (7-20); CALCIUM 8.3 mg/dL (8.4-10.2); CARBON DIOXIDE 39 mmol/L (22-30); CHLORIDE 94 mmol/L (98-107); GLUCOSE 87 mg/dL (75-110)
[2019-03-05] MEDS ORDERED: VANCOMYCIN HCL 0 MG in DEXTROSE 5%-WATER 250 ML IV NR (10:15)
[2019-03-05] MEDS: PAROXETINE HCL 20 MG TABLET PO SCH (10:58)
[2019-03-05] MEDS: POTASSIUM CHLORIDE 10 MEQ TABLET.ER PO SCH (10:58)
[2019-03-05] MEDS: ISOSORBIDE MONONITRATE 30 MG TAB.ER.24H PO SCH (10:59)
[2019-03-05] MEDS: ASPIRIN 81 MG TABLET, ENT COATED PO SCH (10:59)
[2019-03-05] MEDS: FUROSEMIDE 80 MG TABLET PO SCH ×2 (10:59→17:21)
[2019-03-05] MEDS: BUSPIRONE HCL 10 MG TABLET PO SCH ×2 (10:59→17:21)
[2019-03-05] MEDS: METOPROLOL SUCCINATE 25 MG TAB.SR.24H PO SCH ×2 (10:59→21:27)
[2019-03-05] MEDS ORDERED: VANCOMYCIN HCL 1,250 MG in DEXTROSE 5%-WATER 250 ML IV SCH (11:00)
[2019-03-05] MEDS: SACUBITRIL/VALSARTAN 97 MG/103 MG TABLET PO SCH ×2 (11:35→21:28)
[2019-03-05] MEDS: OXYCODONE HCL IR 5 MG TABLET PO PRN ×2 (11:35→21:27)
[2019-03-05 13:18] LABS: INTERNATIONAL RATION (INR) 1.21; PROTHROMBIN TIME 15.4 SEC (11.4-15.4)
[2019-03-05 13:19] LABS: PARTIAL THROMBOPLASTIN TIME 32.6 SEC (23.5-35.8)
--- NOTE | 2019-03-05 13:40 | PDOC CRITICAL CARE PROG REPORT ---
General Date:: 03/05/19 ICU Day:: 25 Hospital Day:: 25 Resuscitation Status: Full Code Medical Power of [employer] Director: Daughter, Aparna Events in the past 12 to 24 Hours:: Patient tolerated BiPAP last evening and was transitioned to nasal cannula today. She has been resting comfortably without any shortness of breath or c hest pain. There has been no bleeding. No hemodynamic instability and no atrial fibrillation. Review of systems relevant to events:: Patient feels that her left side is weak compared to the right. He denies headache or visual changes. Eliquis has been held because of renal failure and for planned tunneled catheter. Reason for ICU Addmission:: Respiratory failure, simone for intubation. - Medications: Medications reviewed and adjusted accordingly: Yes Vasopressors:: None Sedation:: None Physical Exam Vital Signs: Temp Pulse Resp BP Pulse Ox 99.9 F 65 27 H 114/67 99 03/05/19 12:00 03/05/19 12:00 03/05/19 12:00 03/05/19 12:00 03/05/19 12:00 Intake & Output 03/04/19 03/05/19 03/06/19 06:59 06:59 06:59 Intake Total 916 Output Total 5665 4035 375 Balance -4749 -4035 -375 Weight 107.5 kg 103.5 kg Weight/Height Weight 103.5 kg Height 5 ft 4 in General appearance: PRESENT: no acute distress, cooperative, morbidly obese, well-nourished Head exam: PRESENT: atraumatic, normocephalic Eye exam: PRESENT: conjunctiva pink, EOMI, PERRLA. ABSENT: conjunctival injection, nystagmus, scleral icterus Ear exam: PRESENT: normal external ear exam Mouth exam: PRESENT: moist, neck supple, tongue midline Teeth exam: ABSENT: dental caries, edentulous, poor dentation Throat exam: ABSENT: post pharyngeal erythema, tonsillar exudate, tonsillogmegaly Neck exam: PRESENT: other - CVC catheter site is clean, dry intact without erythema. ABSENT: carotid bruit, JVD, lymphadenopathy, thyromegaly Respiratory exam: PRESENT: clear to auscultation renu. ABSENT: accessory muscle use, rales, rhonchi, wheezes Cardiovascular exam: PRESENT: RRR. ABSENT: bradycardia, diastolic murmur, irregular rhythm, rubs, systolic murmur Pulses: ABSENT: normal dorsalis pedis pul Vascular exam: PRESENT: normal capillary refill. ABSENT: pallor GI/Abdominal exam: PRESENT: normal bowel sounds, soft. ABSENT: ascites, distended, guarding, mass, organolmegaly, rebound, rigid, tenderness Rectal exam: PRESENT: deferred Gentrourinary exam: PRESENT: indwelling catheter Extremities exam: PRESENT: pedal edema Musculoskeletal exam: ABSENT: deformity, dislocation Neurological exam: PRESENT: alert, awake, oriented to person, oriented to place, oriented to time, oriented to situation, CN II-XII grossly intact, motor sensory deficit - Patient's left upper and left lower extremity strength is 4 out of 5 compared to the right which is 5 out of 5. There is decreased dorsiflexion of the left foot. There are no cranial nerve deficits. Attempt to determine whether hemianopsia exist appears to be negative for defect however patient had difficulty understanding where to place eyes. Sensory appears to be intact., other. ABSENT: aphasic Psychiatric exam: PRESENT: appropriate affect, normal mood. ABSENT: homicidal ideation, suicidal ideation Focused psych exam: ABSENT: catatonic, delusional, euphoric, pressured speech, psychomotor agitation, restlessness Skin exam: PRESENT: intact, normal color. ABSENT: cyanosis, erythema, mottled, pallor, petechiae Tubes/Lines: PRESENT: Central Line, Other - Jones catheter Laboratory/Radiographs Laboratory Results: 03/05/19 05:45 03/05/19 05:45 03/05/19 03/05/19 03/05/19 05:45 05:45 05:45 WBC 3.0 L RBC 2.90 L Hgb 8.4 L Hct 25.6 L MCV 88 MCH 29.0 MCHC 32.9 RDW 18.3 H Plt Count 197 Seg Neutrophils % 69.9 Sodium 137.8 Potassium 4.0 Chloride 94 L Carbon Dioxide 39 H Anion Gap 5 BUN 15 Creatinine 1.80 H Est GFR ( Amer) 36 L Glucose 87 Calcium 8.3 L Albumin 2.5 L 02/08/19 02/08/19 02/08/19 04:06 04:06 05:30 Creatine Kinase Cancelled 33 CK-MB (CK-2) Cancelled Troponin I Cancelled NT-Pro-B Natriuret Pep Cancelled 02/08/19 02/11/19 02/13/19 05:45 03:18 01:22 Creatine Kinase CK-MB (CK-2) < 0.22 Troponin I 0.043 NT-Pro-B Natriuret Pep 7610 H 1970 H 10454 H Impressions: Chest CT 02/10/19 00:00 IMPRESSION: No pneumothorax. No pleural effusions. Bibasilar consolidation in both lower lobes. Slightly increased interstitial thickening, basilar predominance. Scattered pulmonary cysts and ground-glass opacities are again noted. Tubes and lines in expected positions. KUB X-Ray 02/26/19 13:25 IMPRESSION: NG tube tip overlies body of stomach, side port near the GE junction above the diaphragm. Chest X-Ray 03/03/19 00:00 IMPRESSION: Interval extubation with improvement in bilateral edema and/or pneumonia. All labs, radiographs, diagnostic studies and EKGs were personally reviewed: Yes In addition, reports of radiographic and diagnostic studies were read: Yes Assessment and Plan - Diagnosis (1) Left-sided weakness Is this a current diagnosis for this admission?: Yes Plan: Stat CT. Eliquis on-hold (2) MRSA bacteremia Is this a current diagnosis for this admission?: Yes Plan: Spoke with infectious disease. Their recommendation based on the patient's renal failure is to start daptomycin at 8-10 mg/kg daily in addition to rifampin 600 mg daily.. Given the current recommendations a higher dose would seem to improve result in less resistance. Have ordered a baseline CK and have dis continued atorvastatin and concern for synergistic rhabdomlysis. The RIJ has been in place > one week and interventional radiology will be placing a tunneled catheter on Tuesday to allow the Eliquis effect to wear off. (3) CAP (community acquired pneumonia) due to MRSA (methicillin resistant Staphylococcus aureus) Is this a current diagnosis for this admission?: Yes (4) Acute gastrointestinal bleeding Is this a current diagnosis for this admission?: Yes Plan: EGD negative, colonoscopy negative. Mild gastritis was seen. No further bleeding noted. (5) MRSA (methicillin resistant staphylococcus aureus) pneumonia Qualifiers: Laterality: bilateral Lung location: unspecified part of lung Qualified Code(s): J15.212 - Pneumonia due to Methicillin resistant Staphylococcus aureus Is this a current diagnosis for this admission?: Yes (6) ARDS (adult respiratory distress syndrome) Is this a current diagnosis for this admission?: Yes Plan: Resolved (7) Sepsis Qualifiers: Sepsis type: methicillin resistant Staphylococcus aureus Sepsis acute organ dysfunction status: with acute organ dysfunction Severe sepsis acute organ dysfunction type: acute respiratory failure Acute respiratory failure type: with hypoxia Severe sepsis shock status: with septic shock Qualified Code(s): A41.02 - Sepsis due to Methicillin resistant Staphylococcus aureus; R65.21 - Severe sepsis with septic shock; J96.01 - Acute respiratory failure with hypoxia Is this a current diagnosis for this admission?: Yes Plan: Resolved (8) Hypotension Is this a current diagnosis for this admission?: Yes Plan: Resolved (9) Pneumonitis Is this a current diagnosis for this admission?: Yes Plan: Resolving Concern for likely Amiodarone induced, however admitted to Vaping on last admission. Denies vaping recently (10) Ischemic cardiomyopathy with implantable cardioverter-defibrillator (ICD) Is this a current diagnosis for this admission?: Yes Plan: No discharges. Concern for lead infection still exists. Plan is for 6 weeks of antibiotics with follow up wit CT surgery at [facility] to consider explant (11) Cardiomyopathy, ischemic Is this a current diagnosis for this admission?: Yes Plan: Bi-ventricular, chronic systolic. Entresto increased today. Follow creatinine (12) Atrial fibrillation Qualifiers: Atrial fibrillation type: longstanding persistent Qualified Code(s): I48.11 - Longstanding persistent atrial fibrillation Is this a current diagnosis for this admission?: Yes Plan: Paroxysmal, not persistent, currently quiescent. (13) Acute renal failure superimposed on chronic kidney disease Qualifiers: Acute renal failure type: unspecified Chronic kidney disease stage: stage 3 (moderate) Qualified Code(s): N17.9 - Acute kidney failure, unspecified; N18.3 - Chronic kidney disease, stage 3 (moderate) Is this a current diagnosis for this admission?: Yes Plan: Vancomycin has been discontinued and transitioned to daptomycin. Adjust medications for renal function (14) AICD (automatic cardioverter/defibrillator) present Is this a current diagnosis for this admission?: Yes Plan: No deployment/discharges (15) Atrial fibrillation Qualifiers: Atrial fibrillation type: paroxysmal Qualified Code(s): I48.0 - Paroxysmal atrial fibrillation Is this a current diagnosis for this admission?: Yes (16) Cardiomyopathy Qualifiers: Cardiomyopathy type: ischemic Qualified Code(s): I25.5 - Ischemic cardiomyopathy Is this a current diagnosis for this admission?: Yes (17) Lactic acidosis Is this a current diagnosis for this admission?: Yes Plan: Resolved (18) Engages in non-nicotine containing substance vaping Is this a current diagnosis for this admission?: No (19) Morbid obesity Is this a current diagnosis for this admission?: Yes (20) Shock, septic Is this a current diagnosis for this admission?: Yes Plan: resolved (21) Tracheitis Is this a current diagnosis for this admission?: Yes Plan: Does not appear to be HAP but colonization. CXR improving Plan Summary: 03.05.2019: Patient continues to make dramatic improvements overall. From a respiratory standpoint she is now only on BiPAP at night and now on nasal cannula during the day. The overall suspicion is that the patient had amiodarone induced lung toxicity in addition to MRSA pneumonia. She has improved we will continue to follow supportively. Patient has been on steroids and these have been successfully weaned. Will need to be cautious to follow for recrudescence. Additionally will need to be vigilant for adrenal insufficiency. From an Infectious disease standpoint, I spoke with Dr. Vy Rojo who provides infectious disease consultation remotely. She has been involved with the patient's case from the beginning. Given the concern for vancomycin induced renal failure we have transitioned the patient to daptomycin at a 8 to 10 mg/kilogram/per day dose. Given the patient's current weight we have dosed her at 1000 mg a day. Will check baseline CK, lactic acid, and follow liver function panel as well. In addition to the daptomycin we will start right Vantin at 600 mg a day. I have asked pharmacy to assure that there are no drug to drug interactions. Patient will have a tunneled catheter placed through a new continuous source and the central venous catheter will be removed. I have asked that the central venous catheter not be used to gain access for a tunnel catheter to prevent any further infectious complications. From a cardiac standpoint, we appreciate the assistance of Dr. Martin. He has placed the patient on a higher dose of Entresto and will continue diuresis. Patient has a new his balance with heart failure and will need to follow judiciously. Have discontinued the Lipitor because of the use of daptomycin. Continue supportive care. Patient will need to have a reevaluation by CT surgery regarding her pacemaker leads which may be the source of the infection. From a hematologic standpoint patient is off Eliquis in anticipation for placement of long-term catheter for antibiotics. Dr. Martin will restart this and is aware. Patient had a gastrointestinal bleed who site is still unaccounted for. Presumably this was small bowel however it has resolved spontaneously. From an endocrine standpoint, will need to follow for adrenal insufficiency given the long-term need for steroids during her acute crisis. From a renal standpoint we are adjusting medications for GFR. Following her creatinine as well. She is not a candidate at this time nor does she need dialysis consideration. Continue to monitor creatinine and GFR for adjustments in medications. Have discontinued nonessential medications including Pepcid. From a metabolic standpoint, we are monitoring the patient's electrolytes and mineral profile. Also monitoring for alkalosis related to renal failure. Her lactic acidosis has resolved. From a gastrointestinal standpoint there has been no further bleeding. Please see hematologic above. From a neurological standpoint, on examination patient does have weakness which is mild but demonstrable in the left upper and lower extremity. There is no sensory loss. Patient is right-hand dominant. Have ordered stat CT of head. Eliquis on hold. Suspect possible lacunar infarct. Further care pending CT scan. (Non-contrast). Cannot have MRI secondary to AICD. Critical Time Critical Time (minutes): 65 Level of Care: IMCU Anticipated discharge: Acute Rehab -: 1. The care of a critical patient is a dynamic process. This note is a in home sales representative synopsis but static in nature. The timeframe for treatments given in order is not necessarily the actual time these treatments may have been done. 2. This patient requires critical care secondary to ongoing requirements for therapy not offered or safe outside the critical care environment. Transfer to a lower level of care will result in altered life or limb morbidity and mortality. 3. Multidisciplinary rounds completed. 4. ABCDE bundle addressed.
--- NOTE | 2019-03-05 14:40 | RADIOLOGY REPORT (SQ) ---
EXAM DESCRIPTION: CT HEAD WITHOUT COMPLETED DATE/TIME: 03/05/2019 2:22 pm REASON FOR STUDY: left sided weakness COMPARISON: 09/17/2009 TECHNIQUE: Axial images acquired through the brain without intravenous contrast. Images reviewed wi th bone, brain and subdural windows. Additional sagittal and coronal reconstructions were generated. Images stored on PACS. All CT scanners at this facility use dose modulation, iterative reconstruction, and/or weight based d osing when appropriate to reduce radiation dose to as low as reasonably achievable (ALARA). [facility]: Dose Right [facility]: CareDose [facility]: Dose Right [facility]: Teradose 4D [facility]: [employer] RADIATION DOSE: CT Rad equipment meets quality standard of care and radiation dose reduction techniq ues were employed. CTDIvol: 48.6 mGy. DLP: 880 mGy-cm. mGy. LIMITATIONS: None. FINDINGS: VENTRICLES: Normal size and contour. CEREBRUM: No masses. No hemorrhage. No midline shift. No evidence for acute infarction. Normal gra y/white matter differentiation. No areas of low density in the white matter. CEREBELLUM: No masses. No hemorrhage. No alteration of density. No evidence for acute infarction. EXTRAAXIAL SPACES: No fluid collections. No masses. ORBITS AND GLOBE: No intra- or extraconal masses. Normal contour of globe without masses. CALVARIUM: No fracture. PARANASAL SINUSES: No fluid or mucosal thickening. SOFT TISSUES: No mass or hematoma. OTHER: No other significant finding. IMPRESSION: No acute intracranial pathology. EVIDENCE OF ACUTE STROKE: NO. COMMENT: Quality ID # [id number]: Final reports with documentation of one or more dose reduction techniques (e.g., Automated exposure control, adjustment of the mA and/or kV according to patient size, use of iterative reconstruction technique) TECHNICAL DOCUMENTATION: JOB ID: [id number] [employer]- All Rights Reserved Reading location - IP/workstation name: [email or web address]
[2019-03-05] MEDS: DAPTOMYCIN 1,000 MG in NORMAL SALINE 50 ML IV SCH (14:46)
[2019-03-05] MEDS: FAMOTIDINE 20 MG TABLET PO SCH (15:11)
[2019-03-05] MEDS: RIFAMPIN 300 MG CAPSULE PO SCH (15:15)
[2019-03-05] MEDS: ACETAMINOPHEN 325 MG TABLET PO PRN (17:20)
--- NOTE | 2019-03-05 18:45 | Progress Note ---
Provider Note Provider Note: CARDIOLOGY PROGRESS NOTE by Dr. Griselda Martin on 03/05/2019. OBJECTIVE: The patient states that shortness of breath is much better. She has no cough. She is not wheezing anymore. There is she denies any shortness of breath. There is no chest pain or discomfort. There is orthopnea present but no PND. There is no significant leg edema. There is no recurrence of atrial fibrillation. There is no ventricle arrhythmia seen. There is no firing of the AICD. The patient's Eliquis is on hold for placement of a PICC line. There is no TIA CVA symptoms. PHYSICAL EXAMINATION: The patient is morbidly obese. She is in no acute distress. Selected Entries 03/05/19 03/05/19 08:00 08:01 Temperature 99.0 F Heart Rate ( 60 Monitors) Respiratory 21 H Rate Blood Pressure 130/73 H Blood Pressure 92 Mean O2 Sat by Pulse 95 Oximetry Fraction of 50 Inspired Oxygen (FIO2) Oxygen Flow 3.5 Rate HEAD: Is atraumatic normocephalic. EYES: Pupils are equal round regular reactive to light. HEENT is negative. SKIN: There is no skin rashes or skin lesions. There is no particular ecchymosis. NECK: Is supple. There is mild JVD present. Carotids are equal there is no bruits. There is no lymphadenopathy. There is no goiter. There is no accessory muscle respiration use. Trachea central. LUNGS: Show no rales of CHF.. There are rare scattered rhonchi, but no r wheezing, especially in the right lung.. There is also dry crackles in the right lower lobe. There is diminished air entry. On percussion there is hyperresonance. On palpation there is no chest wall tenderness. HEART: S1-S2 is heard. There is no S3 gallop. There is no S4 gallop. There is systolic murmur mitral regurgitation tricuspid regurgitation present. There is no aortic stenosis murmur. There is no aortic insufficiency murmur. There is no rub. ABDOMEN: Is obese. Nontender. There is no hepatosplenomegaly. Bowel sounds are well heard. There is no rebound guarding or rigidity. EXTREMITIES: Femorals are deep. Femorals are diminished. There is no femoral bruits. There is decreased leg pulses. There is mild pedal edema. 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 PSYCHIATRIC: The patient judgment insight are intact. She does not appear to be agitated or anxious. Labs- All tests 24 hr 03/05/19 03/05/19 03/05/19 05:45 05:45 05:45 WBC 3.0 L RBC 2.90 L Hgb 8.4 L Hct 25.6 L MCV 88 MCH 29.0 MCHC 32.9 RDW 18.3 H Plt Count 197 Lymph % (Auto) 20.2 [place] % (Auto) 9.2 Eos % (Auto) 0.2 Baso % (Auto) 0.5 Absolute Neuts (auto) 2.1 Absolute Lymphs (auto) 0.6 Absolute Monos (auto) 0.3 Absolute Eos (auto) 0.0 Absolute Basos (auto) 0.0 Seg Neutrophils % 69.9 PT INR APTT Sodium 137.8 Potassium 4.0 Chloride 94 L Carbon Dioxide 39 H Anion Gap 5 BUN 15 Creatinine 1.80 H Est GFR ( Amer) 36 L Est GFR (MDRD) Non-Af 30 L Glucose 87 Lactic Acid Calcium 8.3 L Creatine Kinase Albumin 2.5 L 03/05/19 03/05/19 03/05/19 12:52 12:52 12:52 WBC RBC Hgb Hct MCV MCH MCHC RDW Plt Count Lymph % (Auto) [place] % (Auto) Eos % (Auto) Baso % (Auto) Absolute Neuts (auto) Absolute Lymphs (auto) Absolute Monos (auto) Absolute Eos (auto) Absolute Basos (auto) Seg Neutrophils % PT 15.4 INR 1.21 APTT 32.6 Sodium Potassium Chloride Carbon Dioxide Anion Gap BUN Creatinine Est GFR ( Amer) Est GFR (MDRD) Non-Af Glucose Lactic Acid 1.0 Calcium Creatine Kinase 39 Albumin Chest X-Ray 02/08/19 00:00 IMPRESSION: Slight advancement of endotracheal tube. Otherwise no change. Chest X-Ray 02/08/19 00:00 IMPRESSION: NO PNEUMOTHORAX FOLLOWING CENTRAL LINE PLACEMENT. OTHERWISE NO CHANGE. Chest X-Ray 02/08/19 03:15 IMPRESSION: Cardiomegaly. Endotracheal and enteric tubes are in place. Postsurgical changes of the mediastinum. Airspace opacities right lung base. copyright 2010 [employer]- All Rights Reserved Chest CT 02/10/19 00:00 IMPRESSION: No pneumothorax. No pleural effusions. Bibasilar consolidation in both lower lobes. Slightly increased interstitial thickening, basilar predominance. Scattered pulmonary cysts and ground-glass opacities are again noted. Tubes and lines in expected positions. Chest X-Ray 02/12/19 00:00 IMPRESSION: 1. Bilateral perihilar airspace consolidation which may be due to edema, atelectasis or pneumonia. 2. Marked cardiomegaly. 3. Remote postsurgical changes of the mediastinum. 4. Life support lines and tubes as described above. Chest X-Ray 02/13/19 06:00 IMPRESSION: STABLE APPEARANCE OF THE CHEST. SUPPORT DEVICES UNCHANGED. Chest X-Ray 02/14/19 06:00 IMPRESSION: Mildly worsened bibasilar predominant opacities, likely edema although infection not excluded. Stable support lines and tubes as above. Chest X-Ray 02/15/19 03:06 IMPRESSION: Diffuse persistent but improving interstitial and alveolar opacities throughout both lungs. Stable cardiomegaly. Chest X-Ray 02/16/19 06:00 IMPRESSION: Unchanged radiographic appearance of the chest. KUB X-Ray 02/16/19 15:49 IMPRESSION: The tip and side hole of the enteric tube project within the gastric lumen. Chest X-Ray 02/17/19 06:00 IMPRESSION: Findings most consistent with congestive failure an asymmetric pulmonary edema. Slightly improved. SUPPORT DEVICE(S) IN EXPECTED LOCATIONS. Chest X-Ray 02/18/19 00:00 IMPRESSION: New left IJ line with the tip overlying the proximal SVC. Consider advancement 3-4 cm. KUB X-Ray 02/18/19 00:00 IMPRESSION: NG tube tip in the fundus of the stomach. Chest X-Ray 02/19/19 06:00 IMPRESSION: Tubes and lines in good positioning. Stable marked cardiomegaly and mild residual alveolar and interstitial infiltrates Chest X-Ray 02/20/19 00:00 IMPRESSION: STABLE APPEARANCE OF THE CHEST. SUPPORT DEVICES UNCHANGED. Chest X-Ray 02/25/19 00:00 IMPRESSION: Cardiomegaly with diffuse interstitial edema copyright 2010 [employer]- All Rights Reserved Chest X-Ray 02/26/19 13:22 IMPRESSION: Tubes and catheters as described. Cardiomegaly with pulmonary edema that shows slight improvement. KUB X-Ray 02/26/19 13:25 IMPRESSION: NG tube tip overlies body of stomach, side port near the GE junction above the diaphragm. Chest X-Ray 03/03/19 00:00 IMPRESSION: Interval extubation with improvement in bilateral edema and/or pneumonia. Head CT 03/05/19 00:00 IMPRESSION: No acute intracranial pathology. EVIDENCE OF ACUTE STROKE: NO. IMPRESSION/RECOMMENDATION: 1. Acute on chronic respiratory failure. This is much improved. The patient has been extubated. 2. Hypotension: But the patient seems to be awake and alert and oriented. We will stop the patient's Nitropaste. Since the patient's blood pressure is much improved, will increase the patient's Entresto doage to her previous dosing. We will also make the patient's Toprol-XL 25 mg p.o. twice daily. Continue the patient on Imdur 30 mg p.o. daily, and will increase it in a couple of days if her blood pressure still remains stable.. 3. Acute on chronic systolic heart failure. Patient with LV ejection fraction of 25%. Continue beta-blockers and Entresto. Restart diuretics. 4. Acute exacerbation COPD: Continue bronchodilators and ventilatory support. 5. MRSA pneumonia: Continue antibiotics. 6. Amiodarone has been discontinued due to recurrence of pulmonary toxicity. 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 If need to start the patient on antiarrhythmic, would start the patient on sotalol at a very low dose in view of the compromised renal function. Would avoid amiodarone at all costs. 7. Acute on chronic kidney disease: Watch renal function as we implement aggressive diuresis. At present patient has chronic kidney disease stage III with a GFR of 43 mL per per minute. 8. Cardiomyopathy with severely reduced LV ejection fraction. Her medications adjusted. Her beta-rip has been decreased to Toprol 25 mg XL once daily since she is taking by mouth. Entresto has been decreased to 49/51.. Will decrease the patient's isosorbide mononitrate from 60 mg to 30 mg p.o. daily. 9. Paroxysmal atrial fibrillation: Continue beta-rip. The patient Eliquis had to be stopped due to patient's anemia and also prior occult positive bloo blood in the stools. 10. History of ventricular tachycardia, The patient has an AICD placed. If there is recurrence of ventricular tachycardia or major ventricular ectopic activity then would start the patient on small dose of sotalol. Would avoid amiodarone. 11. Hypertension: Blood pressure well controlled, on current medications. 12. Coronary artery disease: History of CO and history of coronary bypass graft surgery. No evidence of acute coronary syndrome/non-ST ST elevation CO this admission. 13. Obstructive sleep apnea. Note patient has been noncompliant with CPAP. Most likely has significant pulmonary hypertension. 14. AICD placement: Note the patient's basal rate is around 60 bpm. If the patient's heart failure continues then would recommend increasing the basal heart rate to 80 bpm to help combat the heart failure along with diuretics. 15. MRSA bacteremia: Continue antibiotics. Repeat blood cultures are far negative for growth of MRSA. Patient's prognosis very guarded and poor. Medications reviewed. Medical regimen discussed with the automobile inspector as well as medical management. Medical decision making is of moderate complexity. . 40 minutes spent on the patient more than 50% of time spent in direct patient care. Will follow.
--- NOTE | 2019-03-05 19:57 | RADIOLOGY REPORT (SQ) ---
EXAM DESCRIPTION: KUB/ABDOMEN (SINGLE VIEW) COMPLETED DATE/TIME: 03/05/2019 7:32 pm REASON FOR STUDY: abdominal pain, constipation COMPARISON: 02/26/2019 NUMBER OF VIEWS: One view. TECHNIQUE: Supine radiographic image of the abdomen acquired. LIMITATIONS: None. FINDINGS: BOWEL GAS PATTERN: There is retained stool. No bowel obstruction. CALCIFICATIONS: No suspicious calcifications. SOFT TISSUES: No gross mass or suggestion of organomegaly. HARDWARE: None in the abdomen. BONES: No acute fracture. No worrisome bone lesions. OTHER: No other significant finding. IMPRESSION: Constipation. TECHNICAL DOCUMENTATION: JOB ID: [id number] [employer]- All Rights Reserved Reading location - IP/workstation name: [email or web address]
[2019-03-05] MEDS ORDERED: POLYETHYLENE GLYCOL 3350 POWDER 17 GM/1 PACKET PO ONE (20:40)
[2019-03-05] MEDS ORDERED: MINERAL OIL 30 ML UDCUP PO ONE (21:15)
[2019-03-05] MEDS: SENNOSIDES/DOCUSATE 8.6-50 MG 1 EACH TABLET PO SCH (21:26)
[2019-03-05] MEDS: MELATONIN 5 MG TABLET PO SCH (21:26)
[2019-03-05] MEDS ORDERED: MELATONIN 1 MG TABLET PO SCH (22:00)
[2019-03-06 04:46] LABS: ABSOLUTE LYMPHOCYTES (AUTO) 0.6 10^3/uL (0.5-4.7); ABSOLUTE MONOCYTES (AUTO) 0.3 10^3/uL (0.1-1.4); ABSOLUTE NEUT (AUTO) 1.8 10^3/uL (1.7-8.2); EOSINOPHILS % (AUTO) 0.9 % (0-6); TOTAL CELLS COUNTED % (AUTO) 100 %; WHITE BLOOD COUNT 2.7 10^3/uL (4.0-10.5)
[2019-03-06 04:53] LABS: BASOPHILS % (AUTO) 0.9 % (0-2); HEMATOCRIT 27.1 % (36.0-47.0); LYMPHOCYTES % (AUTO) 21.9 % (13-45); MEAN CORPUSCULAR HEMOGLOBIN 29.4 pg (27.0-33.4); MEAN CORPUSCULAR HGB CONC 33.2 g/dL (32.0-36.0); MEAN CORPUSCULAR VOLUME 89 fl (80-97); MONOCYTES % (AUTO) 10.6 % (3-13); PLATELET COUNT 248 10^3/uL (150-450); RED BLOOD COUNT 3.07 10^6/uL (3.72-5.28); RED CELL DISTRIBUTION WIDTH 19.2 % (11.5-14.0); SEGMENTED NEUTROPHILS % (AUTO) 65.7 % (42-78)
[2019-03-06 04:57] LABS: ALBUMIN 2.8 g/dL (3.5-5.0); ALKALINE PHOSPHATASE 248 U/L (38-126); ANION GAP 6 (5-19); ASPARTATE AMINO TRANSFERASE 38 U/L (14-36); BILIRUBIN,DIRECT 0.9 mg/dL (0.0-0.4); BILIRUBIN,TOTAL 2.1 mg/dL (0.2-1.3); BLOOD UREA NITROGEN 18 mg/dL (7-20); CALCIUM 8.6 mg/dL (8.4-10.2); CARBON DIOXIDE 38 mmol/L (22-30); CHLORIDE 96 mmol/L (98-107); GLUCOSE 91 mg/dL (75-110); PHOSPHORUS 5.1 mg/dL (2.5-4.5); POTASSIUM 3.7 mmol/L (3.6-5.0); TOTAL PROTEIN 6.6 g/dL (6.3-8.2)
[2019-03-06] MEDS: ASPIRIN 81 MG TABLET, ENT COATED PO SCH (09:32)
[2019-03-06] MEDS: SACUBITRIL/VALSARTAN 97 MG/103 MG TABLET PO SCH ×2 (09:32→21:15)
[2019-03-06] MEDS: ISOSORBIDE MONONITRATE 30 MG TAB.ER.24H PO SCH (09:32)
[2019-03-06] MEDS: PAROXETINE HCL 20 MG TABLET PO SCH (09:32)
[2019-03-06] MEDS: POTASSIUM CHLORIDE 10 MEQ TABLET.ER PO SCH (09:32)
[2019-03-06] MEDS: METOPROLOL SUCCINATE 25 MG TAB.SR.24H PO SCH ×2 (09:32→21:15)
[2019-03-06] MEDS: FUROSEMIDE 80 MG TABLET PO SCH ×2 (09:33→17:57)
[2019-03-06] MEDS: BUSPIRONE HCL 10 MG TABLET PO SCH ×2 (09:33→17:57)
[2019-03-06] MEDS ORDERED: ALPRAZOLAM 0.5 MG TABLET PO PRN (10:22)
[2019-03-06] MEDS: MEROPENEM 1 GM in NORMAL SALINE 50 ML IV SCH ×2 (10:32→21:16)
[2019-03-06] MEDS: ACETAMINOPHEN 325 MG TABLET PO PRN (10:33)
[2019-03-06] MEDS: LACTULOSE SYRUP 20 GM/30 ML UDCUP PO SCH ×3 (14:11→21:13)
[2019-03-06] MEDS: RIFAMPIN 300 MG CAPSULE PO SCH (14:12)
[2019-03-06] MEDS: HEPARIN SOD (PORCINE) 5,000 UNIT/ML 1 ML VIAL SUBCUT SCH ×2 (14:12→21:13)
[2019-03-06] MEDS: DAPTOMYCIN 1,000 MG in NORMAL SALINE 50 ML IV SCH (14:56)
[2019-03-06] MEDS: OXYCODONE HCL IR 5 MG TABLET PO PRN (17:59)
--- NOTE | 2019-03-06 19:34 | Progress Note ---
Provider Note Provider Note: CARDIOLOGY PROGRESS NOTE by Dr. Griselda Martin on 03/06/2019. SUBJECTIVE: The patient has improved further. She denies any shortness of breath at rest. There is no cough or sputum production. There is no wheezing. There is no chest pain or discomfort. She does have some degree of orthopnea but no PND. The patient will get a PICC line tomorrow and she is off the Eliquis. She has no further abdominal pain. There is no recurrence of atrial fibrillation. There is no firing of AICD. There is no ventricular arrhythmia seen on the monitor. PHYSICAL EXAMINATION: The patient morbidly obese. At present in no acute distress. Selected Entries 03/06/19 16:00 Temperature 98.8 F Temperature Core Source Pulse Rate 62 Respiratory 21 H Rate Blood Pressure 148/98 H [Right Upper Arm] Blood Pressure 114 Mean [Right Upper Arm] Blood Pressure Supine Position [Right Upper Arm] O2 Sat by Pulse 99 Oximetry Oxygen Delivery Nasal Cannula Method ( includes room air) HEAD: Is atraumatic normocephalic. EYES: Pupils are equal round regular reactive to light. HEENT is negative. SKIN: There is no skin rashes or skin lesions. There is no particular ecchymosis. NECK: Is supple. There is mild JVD present. Carotids are equal there is no bruits. There is no lymphadenopathy. There is no goiter. There is no accessory muscle respiration use. Trachea central. LUNGS: Show no rales of CHF.. There are a few scattered rhonchi, but no r wheezing, especially in the right lung.. There is also dry crackles in the right lower lobe. There is diminished air entry. On percussion there is hyperresonance. On palpation there is no chest wall tenderness. HEART: S1-S2 is heard. There is no S3 gallop. There is no S4 gallop. There is systolic murmur mitral regurgitation tricuspid regurgitation present. There is no aortic stenosis murmur. There is no aortic insufficiency murmur. There is no rub. ABDOMEN: Is obese. Nontender. There is no hepatosplenomegaly. Bowel sounds are well heard. There is no rebound guarding or rigidity. EXTREMITIES: Femorals are deep. Femorals are diminished. There is no femoral bruits. There is decreased leg pulses. There is mild pedal edema. 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 PSYCHIATRIC: The patient judgment insight are intact. She does not appear to be agitated or anxious. Labs- All tests 24 hr 03/06/19 03/06/19 04:30 04:30 WBC 2.7 L RBC 3.07 L Hgb 9.0 L Hct 27.1 L MCV 89 MCH 29.4 MCHC 33.2 RDW 19.2 H Plt Count 248 Lymph % (Auto) 21.9 [place] % (Auto) 10.6 Eos % (Auto) 0.9 Baso % (Auto) 0.9 Absolute Neuts (auto) 1.8 Absolute Lymphs (auto) 0.6 Absolute Monos (auto) 0.3 Absolute Eos (auto) 0.0 Absolute Basos (auto) 0.0 Seg Neutrophils % 65.7 Sodium 140.0 Potassium 3.7 Chloride 96 L Carbon Dioxide 38 H Anion Gap 6 BUN 18 Creatinine 1.83 H Est GFR ( Amer) 36 L Est GFR (MDRD) Non-Af 30 L Glucose 91 Calcium 8.6 Phosphorus 5.1 H Magnesium 1.8 Total Bilirubin 2.1 H Direct Bilirubin 0.9 H Neonat Total Bilirubin Not Reportable Neonat Direct Bilirubin Not Reportable Neonat Indirect Bili Not Reportable AST 38 H ALT 36 Alkaline Phosphatase 248 H Total Protein 6.6 Albumin 2.8 L Chest X-Ray 02/08/19 00:00 IMPRESSION: Slight advancement of endotracheal tube. Otherwise no change. Chest X-Ray 02/08/19 00:00 IMPRESSION: NO PNEUMOTHORAX FOLLOWING CENTRAL LINE PLACEMENT. OTHERWISE NO CHANGE. Chest X-Ray 02/08/19 03:15 IMPRESSION: Cardiomegaly. Endotracheal and enteric tubes are in place. Postsurgical changes of the mediastinum. Airspace opacities right lung base. copyright 2010 [employer]- All Rights Reserved Chest CT 02/10/19 00:00 IMPRESSION: No pneumothorax. No pleural effusions. Bibasilar consolidation in both lower lobes. Slightly increased interstitial thickening, basilar predominance. Scattered pulmonary cysts and ground-glass opacities are again noted. Tubes and lines in expected positions. Chest X-Ray 02/12/19 00:00 IMPRESSION: 1. Bilateral perihilar airspace consolidation which may be due to edema, atelectasis or pneumonia. 2. Marked cardiomegaly. 3. Remote postsurgical changes of the mediastinum. 4. Life support lines and tubes as described above. Chest X-Ray 02/13/19 06:00 IMPRESSION: STABLE APPEARANCE OF THE CHEST. SUPPORT DEVICES UNCHANGED. Chest X-Ray 02/14/19 06:00 IMPRESSION: Mildly worsened bibasilar predominant opacities, likely edema although infection not excluded. Stable support lines and tubes as above. Chest X-Ray 02/15/19 03:06 IMPRESSION: Diffuse persistent but improving interstitial and alveolar opacities throughout both lungs. Stable cardiomegaly. Chest X-Ray 02/16/19 06:00 IMPRESSION: Unchanged radiographic appearance of the chest. KUB X-Ray 02/16/19 15:49 IMPRESSION: The tip and side hole of the enteric tube project within the gastric lumen. Chest X-Ray 02/17/19 06:00 IMPRESSION: Findings most consistent with congestive failure an asymmetric pulmonary edema. Slightly improved. SUPPORT DEVICE(S) IN EXPECTED LOCATIONS. Chest X-Ray 02/18/19 00:00 IMPRESSION: New left IJ line with the tip overlying the proximal SVC. Consider advancement 3-4 cm. KUB X-Ray 02/18/19 00:00 IMPRESSION: NG tube tip in the fundus of the stomach. Chest X-Ray 02/19/19 06:00 IMPRESSION: Tubes and lines in good positioning. Stable marked cardiomegaly and mild residual alveolar and interstitial infiltrates Chest X-Ray 02/20/19 00:00 IMPRESSION: STABLE APPEARANCE OF THE CHEST. SUPPORT DEVICES UNCHANGED. Chest X-Ray 02/25/19 00:00 IMPRESSION: Cardiomegaly with diffuse interstitial edema copyright 2011 [employer]- All Rights Reserved Chest X-Ray 02/26/19 13:22 IMPRESSION: Tubes and catheters as described. Cardiomegaly with pulmonary edema that shows slight improvement. KUB X-Ray 02/26/19 13:25 IMPRESSION: NG tube tip overlies body of stomach, side port near the GE junction above the diaphragm. Chest X-Ray 03/03/19 00:00 IMPRESSION: Interval extubation with improvement in bilateral edema and/or pneumonia. Head CT 03/05/19 00:00 IMPRESSION: No acute intracranial pathology. EVIDENCE OF ACUTE STROKE: NO. KUB X-Ray 03/05/19 00:00 IMPRESSION: Constipation. IMPRESSION/RECOMMENDATION: 1. Acute on chronic respiratory failure. This is much improved. The patient has been extubated. 2. Hypotension: But the patient seems to be awake and alert and oriented. We will stop the patient's Nitropaste. Since the patient's blood pressure is much improved, will increase the patient's Entresto doage to her previous dosing. We will also make the patient's Toprol-XL 25 mg p.o. twice daily. Continue the patient on Imdur 30 mg p.o. daily, and will increase it in a couple of days if her blood pressure still remains stable.. 3. Acute on chronic systolic heart failure. Patient with LV ejection fraction of 25%. Continue beta-blockers and Entresto. Continue diuretics. 4. Acute exacerbation COPD: Continue bronchodilators and ventilatory support. 5. MRSA pneumonia: Continue antibiotics. 6. Amiodarone has been discontinued due to recurrence of pulmonary toxicity. 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 If need to start the patient on antiarrhythmic, would start the patient on sotalol at a very low dose in view of the compromised renal function. Would avoid amiodarone at all costs. 7. Acute on chronic kidney disease: Watch renal function as we implement aggressive diuresis. At present patient has chronic kidney disease stage III with a GFR of 43 mL per per minute. 8. Cardiomyopathy with severely reduced LV ejection fraction. Her medications adjusted. Her beta-rip has been decreased to Toprol 25 mg XL once daily since she is taking by mouth. Entresto has been decreased to 49/51.. Will decrease the patient's isosorbide mononitrate from 60 mg to 30 mg p.o. daily. 9. Paroxysmal atrial fibrillation: Continue beta-rip. The patient Eliquis had to be stopped due to patient's anemia and also prior occult positive bloo blood in the stools. 10. History of ventricular tachycardia, The patient has an AICD placed. If there is recurrence of ventricular tachycardia or major ventricular ectopic activity then would start the patient on small dose of sotalol. Would avoid amiodarone. 11. Hypertension: Blood pressure well controlled, on current medications. 12. Coronary artery disease: History of CO and history of coronary bypass graft surgery. No evidence of acute coronary syndrome/non-ST ST elevation [place] this admission. 13. Obstructive sleep apnea. Note patient has been noncompliant with CPAP. Most likely has significant pulmonary hypertension. 14. AICD placement: Note the patient's basal rate is around 60 bpm. If the patient's heart failure continues then would recommend increasing the basal heart rate to 80 bpm to help combat the heart failure along with diuretics. 15. MRSA bacteremia: Continue antibiotics. Repeat blood cultures are far negative for growth of MRSA. Patient's prognosis very guarded and poor. Medications reviewed. Medical regimen discussed with the floor tech as well as medical management. In view of the need to adjust medications, medical decision making is of high complexity. 40 minutes spent on the patient more than 50% of time spent in direct patient care. Will follow.
--- NOTE | 2019-03-06 20:32 | PDOC CRITICAL CARE PROG REPORT ---
General Date:: 03/06/19 ICU Day:: Hospital Day:: Resuscitation Status: Full Code Medical Power of Manual Training Teacher: DaughterAparna Events in the past 12 to 24 Hours:: 03.06.2019: Patient continues to maintain stability in the ICU under IMCU status. Her abdominal pain has improved significantly and she did have a bowel movement late this afternoon. This has improved her abdominal discomfort. X-ray done of the abdomen late yesterday evening showed extensive constipation. 03.05.2019:Patient tolerated BiPAP last evening and was transitioned to nasal cannula today. She has been resting comfortably without any shortness of breath or chest pain. There has been no bleeding. No hemodynamic instability and no atrial fibrillation. Review of systems relevant to events:: 03.06.2019: No melena noted. No shortness of breath or chest pain. Blood cultures still remain negative. CT scan of brain was done to rule out intracerebral process and this was negative. Her left-sided weakness has resolved. 03.05.2019: Patient feels that her left side is weak compared to the right. He denies headache or visual changes. Eliquis has been held because of renal failure and for planned tunneled catheter. Reason for ICU Addmission:: Respiratory failure, Need for mechanical ventilation - Medications: Medications reviewed and adjusted accordingly: Yes Vasopressors:: None Sedation:: None Physical Exam Vital Signs: Temp Pulse Resp BP Pulse Ox 99.1 F 61 23 H 113/70 99 03/06/19 07:11 03/06/19 07:11 03/06/19 07:11 03/06/19 07:11 03/06/19 07:11 Intake & Output 03/05/19 03/06/19 03/07/19 06:59 06:59 06:59 Intake Total 300 Output Total 4033 8128 Balance -4030 -3424 Weight 103.5 kg 104.2 kg Weight/Height Weight 104.2 kg Height 5 ft 4 in General appearance: PRESENT: no acute distress, cooperative, morbidly obese, well-developed, well-nourished Exam: Pleasant nontoxic ill older appearing 48-year-old black female no acute distress she is awake and aware x4 Head exam: PRESENT: atraumatic, normocephalic Eye exam: PRESENT: EOMI, PERRLA. ABSENT: conjunctival injection, nystagmus, scleral icterus Mouth exam: PRESENT: moist, neck supple, tongue midline Teeth exam: ABSENT: edentulous, poor dentation Neck exam: ABSENT: carotid bruit, JVD, lymphadenopathy, thyromegaly Respiratory exam: PRESENT: clear to auscultation renu, unlabored. ABSENT: rales, rhonchi, tachypnea, wheezes Cardiovascular exam: PRESENT: RRR, +S1, +S2 Pulses: PRESENT: +1 pedal pulses bilateral GI/Abdominal exam: PRESENT: normal bowel sounds, soft. ABSENT: ascites, distended, guarding, mass, organolmegaly, rebound, tenderness Rectal exam: PRESENT: deferred Gentrourinary exam: PRESENT: indwelling catheter Neurological exam: PRESENT: alert, awake, oriented to person, oriented to place, oriented to time, oriented to situation, CN II-XII grossly intact. ABSENT: motor sensory deficit - Motor strength in left leg now 5/5, aphasic Psychiatric exam: PRESENT: appropriate affect, homicidal ideation, normal mood, suicidal ideation Focused psych exam: ABSENT: pressured speech, psychomotor agitation, restlessness Skin exam: PRESENT: dry, intact, warm. ABSENT: cyanosis, petechiae, rash Tubes/Lines: PRESENT: Central Line, Other - ritter catheter. To be removed Laboratory/Radiographs Laboratory Results: 03/06/19 04:30 03/06/19 04:30 03/05/19 03/05/19 03/06/19 05:45 12:52 04:30 WBC 2.7 L RBC 3.07 L Hgb 9.0 L Hct 27.1 L MCV 89 MCH 29.4 MCHC 33.2 RDW 19.2 H Plt Count 248 Seg Neutrophils % 65.7 Sodium Potassium Chloride Carbon Dioxide Anion Gap BUN Creatinine Est GFR ( Amer) Glucose Lactic Acid 1.0 Calcium Phosphorus Magnesium Total Bilirubin AST Alkaline Phosphatase Total Protein Albumin 2.5 L 03/06/19 04:30 WBC RBC Hgb Hct MCV MCH MCHC RDW Plt Count Seg Neutrophils % Sodium 140.0 Potassium 3.7 Chloride 96 L Carbon Dioxide 38 H Anion Gap 6 BUN 18 Creatinine 1.83 H Est GFR ( Amer) 36 L Glucose 91 Lactic Acid Calcium 8.6 Phosphorus 5.1 H Magnesium 1.8 Total Bilirubin 2.1 H AST 38 H Alkaline Phosphatase 248 H Total Protein 6.6 Albumin 2.8 L 02/08/19 02/08/19 02/08/19 04:06 04:06 05:30 Creatine Kinase Cancelled 33 CK-MB (CK-2) Cancelled Troponin I Cancelled NT-Pro-B Natriuret Pep Cancelled 02/08/19 02/11/19 02/13/19 05:45 03:18 01:22 Creatine Kinase CK-MB (CK-2) < 0.22 Troponin I 0.043 NT-Pro-B Natriuret Pep 7610 H 1970 H 81223 H 03/05/19 12:52 Creatine Kinase 39 CK-MB (CK-2) Troponin I NT-Pro-B Natriuret Pep Impressions: Chest CT 02/10/19 00:00 IMPRESSION: No pneumothorax. No pleural effusions. Bibasilar consolidation in both lower lobes. Slightly increased interstitial thickening, basilar predominance. Scattered pulmonary cysts and ground-glass opacities are again noted. Tubes and lines in expected positions. Chest X-Ray 03/03/19 00:00 IMPRESSION: Interval extubation with improvement in bilateral edema and/or pneumonia. Head CT 03/05/19 00:00 IMPRESSION: No acute intracranial pathology. EVIDENCE OF ACUTE STROKE: NO. KUB X-Ray 03/05/19 00:00 IMPRESSION: Constipation. All labs, radiographs, diagnostic studies and EKGs were personally reviewed: Yes In addition, reports of radiographic and diagnostic studies were read: Yes Assessment and Plan - Diagnosis (1) Left-sided weakness Is this a current diagnosis for this admission?: Yes Plan: Resolved (2) MRSA bacteremia Is this a current diagnosis for this admission?: Yes Plan: 03.06.2019: Plan for tunneled picc catheter for long-term antibiotic. Recent cultures negative. Placed on Meropenem for coverage of possible tracheal colonization. Total of 7 days. 03.05.2019:Spoke with infectious disease. Their recommendation based on the patient's renal failure is to start daptomycin at 8-10 mg/kg daily in addition to rifampin 600 mg daily.. Given the current recommendations a higher dose would seem to improve result in less resistance. Have ordered a baseline CK and have discontinued atorvastatin and concern for synergistic rhabdomlysis. The RIJ has been in place > one week and interventional radiology will be placing a tunneled catheter on Tuesday to allow the Eliquis effect to wear off. (3) CAP (community acquired pneumonia) due to MRSA (methicillin resistant Staphylococcus aureus) Is this a current diagnosis for this admission?: Yes (4) Acute gastrointestinal bleeding Is this a current diagnosis for this admission?: Yes Plan: Resolved; EGD negative, colonoscopy negative. Mild gastritis was seen. No further bleeding noted. (5) MRSA (methicillin resistant staphylococcus aureus) pneumonia Qualifiers: Laterality: bilateral Lung location: unspecified part of lung Qualified Code(s): J15.212 - Pneumonia due to Methicillin resistant Staphylococcus aureus Is this a current diagnosis for this admission?: Yes Plan: Resolved (6) ARDS (adult respiratory distress syndrome) Is this a current diagnosis for this admission?: Yes Plan: Resolved (7) Sepsis Qualifiers: Sepsis type: methicillin resistant Staphylococcus aureus Sepsis acute organ dysfunction status: with acute organ dysfunction Severe sepsis acute organ dysfunction type: acute respiratory failure Acute respiratory failure type: with hypoxia Severe sepsis shock status: with septic shock Qualified Code(s): A41.02 - Sepsis due to Methicillin resistant Staphylococcus aureus; R65.21 - Severe sepsis with septic shock; J96.01 - Acute respiratory failure with hypoxia Is this a current diagnosis for this admission?: Yes Plan: Resolved (8) Hypotension Qualifiers: Hypotension type: other hypotension type Qualified Code(s): I95.89 - Other hypotension Is this a current diagnosis for this admission?: Yes Plan: Resolved (9) Pneumonitis Is this a current diagnosis for this admission?: Yes (10) Ischemic cardiomyopathy with implantable cardioverter-defibrillator (ICD) Is this a current diagnosis for this admission?: Yes Plan: No discharges. Concern for lead infection still exists. Plan is for 6 weeks of antibiotics with follow up wit CT surgery at [facility] to consider explant (11) Cardiomyopathy, ischemic Is this a current diagnosis for this admission?: Yes Plan: Bi-ventricular, chronic systolic. Entresto increased today. Follow creatinine (12) Atrial fibrillation Qualifiers: Atrial fibrillation type: longstanding persistent Qualified Code(s): I48.11 - Longstanding persistent atrial fibrillation Is this a current diagnosis for this admission?: Yes Plan: Paroxysmal, not persistent, currently quiescent. Anticoagulation on hold with reduced GFR and obesity (13) Acute renal failure superimposed on chronic kidney disease Qualifiers: Acute renal failure type: unspecified Chronic kidney disease stage: stage 3 (moderate) Qualified Code(s): N17.9 - Acute kidney failure, unspecified; N18.3 - Chronic kidney disease, stage 3 (moderate) Is this a current diagnosis for this admission?: Yes Plan: Improving; Vancomycin has been discontinued and transitioned to daptomycin. Adjust medications for renal function (14) AICD (automatic cardioverter/defibrillator) present Is this a current diagnosis for this admission?: Yes Plan: No deployment/discharges (15) Atrial fibrillation Qualifiers: Atrial fibrillation type: paroxysmal Qualified Code(s): I48.0 - Paroxysmal atrial fibrillation Is this a current diagnosis for this admission?: Yes (16) Cardiomyopathy Qualifiers: Cardiomyopathy type: ischemic Qualified Code(s): I25.5 - Ischemic cardiomyopathy Is this a current diagnosis for this admission?: Yes (17) Lactic acidosis Is this a current diagnosis for this admission?: Yes Plan: Resolved (18) Engages in non-nicotine containing substance vaping Is this a current diagnosis for this admission?: No (19) Morbid obesity Is this a current diagnosis for this admission?: Yes (20) Shock, septic Is this a current diagnosis for this admission?: Yes Plan: resolved (21) Tracheitis Is this a current diagnosis for this admission?: Yes Plan: Does not appear to be HAP but colonization. CXR improving Plan Summary: 03.06.2019: Patient's physiologic and hemodynamic profile have remained non-labile. Attempt at wheezing nasal cannula resulted in mild hypoxia but improved with nasal cannula replacement. She has been started on subcutaneous heparin for DVT prophylaxis which will be held this evening in preparation for placement of a tunneled catheter for long-term antibiotics. She has remained stable on her CHF treatment paradigm. In addition to the above she has been placed on daptomycin and will continue to monitor her CK profile daily. She has had a significant improvement in her abdominal discomfort with the induction of a bowel movement today. Overall she is physically deconditioned from critical illness and will need rehabilitation. We are appreciative of physical therapy and occupational therapy working with her. Her motor weakness has improved significantly as well. Heparin will be held this evening and she has been made n.p.o. in preparation for procedure. Given her need for long-term antibiotics this may preclude her ability for inpatient rehab however we are working on obtaining resources to allow her to transition to a rehab program. Patient remains suitable for downgrade. 03.05.2019: Patient continues to make dramatic improvements overall. From a respiratory standpoint she is now only on BiPAP at night and now on nasal cannula during the day. The overall suspicion is that the patient had amiodarone induced lung toxicity in addition to MRSA pneumonia. She has improved we will continue to follow supportively. Patient has been on steroids and these have been successfully weaned. Will need to be cautious to follow for recrudescence. Additionally will need to be vigilant for adrenal insufficiency. From an Infectious disease standpoint, I spoke with Dr. Vy Rojo who provides infectious disease consultation remotely. She has been involved with the patient's case from the beginning. Given the concern for vancomycin induced renal failure we have transitioned the patient to daptomycin at a 8 to 10 mg/ kilogram/per day dose. Given the patient's current weight we have dosed her at 1000 mg a day. Will check baseline CK, lactic acid, and follow liver function panel as well. In addition to the daptomycin we will start right Vantin at 600 mg a day. I have asked pharmacy to assure that there are no drug to drug interactions. Patient will have a tunneled catheter placed through a new continuous source and the central venous catheter will be removed. I have asked that the central venous catheter not be used to gain access for a tunnel catheter to prevent any further infectious complications. From a cardiac standpoint, we appreciate the assistance of Dr. Martin. He has placed the patient on a higher dose of Entresto and will continue diuresis. Patient has a new his balance with heart failure and will need to follow judiciously. Have discontinued the Lipitor because of the use of daptomycin. Continue supportive care. Patient will need to have a reevaluation by CT surgery regarding her pacemaker leads which may be the source of the infection. From a hematologic standpoint patient is off Eliquis in anticipation for placement of long-term catheter for antibiotics. Dr. Martin will restart this and is aware. Patient had a gastrointestinal bleed who site is still unaccounted for. Presumably this was small bowel however it has resolved spontaneously. From an endocrine standpoint, will need to follow for adrenal insufficiency given the long-term need for steroids during her acute crisis. From a renal standpoint we are adjusting medications for GFR. Following her creatinine as well. She is not a candidate at this time nor does she need dialysis consideration. Continue to monitor creatinine and GFR for adjustments in medications. Have discontinued nonessential medications including Pepcid. From a metabolic standpoint, we are monitoring the patient's electrolytes and mineral profile. Also monitoring for alkalosis related to renal failure. Her lactic acidosis has resolved. From a gastrointestinal standpoint there has been no further bleeding. Please see hematologic above. From a neurological standpoint, on examination patient does have weakness which is mild but demonstrable in the left upper and lower extremity. There is no sensory loss. Patient is right-hand dominant. Have ordered stat CT of head. Eliquis on hold. Suspect possible lacunar infarct. Further care pending CT scan. (Non-contrast). Cannot have MRI secondary to AICD. Critical Time Critical Time (minutes): 0 - [id number] Level of Care: IMCU Anticipated discharge: Acute Rehab Within: within 48 hours -: 1. The care of a critical patient is a dynamic process. This note is a metals sales representative synopsis but static in nature. The timeframe for treatments given in order is not necessarily the actual time these treatments may have been done. 2. This patient requires critical care secondary to ongoing requirements for therapy not offered or safe outside the critical care environment. Transfer to a lower level of care will result in altered life or limb morbidity and mortality. 3. Multidisciplinary rounds completed. 4. ABCDE bundle addressed.
[2019-03-06] MEDS: SENNOSIDES/DOCUSATE 8.6-50 MG 1 EACH TABLET PO SCH (21:14)
[2019-03-06] MEDS: MELATONIN 5 MG TABLET PO SCH (21:14)
[2019-03-07] MEDS: LACTULOSE SYRUP 20 GM/30 ML UDCUP PO SCH (05:47)
[2019-03-07 06:17] LABS: ABSOLUTE LYMPHOCYTES (AUTO) 0.7 10^3/uL (0.5-4.7); ABSOLUTE MONOCYTES (AUTO) 0.3 10^3/uL (0.1-1.4); ABSOLUTE NEUT (AUTO) 1.6 10^3/uL (1.7-8.2); BASOPHILS % (AUTO) 0.5 % (0-2); EOSINOPHILS % (AUTO) 0.8 % (0-6); HEMOGLOBIN 8.7 g/dL (12.0-15.5); LYMPHOCYTES % (AUTO) 25.8 % (13-45); MEAN CORPUSCULAR HEMOGLOBIN 29.3 pg (27.0-33.4); MEAN CORPUSCULAR HGB CONC 33.3 g/dL (32.0-36.0); MEAN CORPUSCULAR VOLUME 88 fl (80-97); PLATELET COUNT 313 10^3/uL (150-450); RED BLOOD COUNT 2.96 10^6/uL (3.72-5.28); RED CELL DISTRIBUTION WIDTH 19.1 % (11.5-14.0); SEGMENTED NEUTROPHILS % (AUTO) 59.9 % (42-78); TOTAL CELLS COUNTED % (AUTO) 100 %; WHITE BLOOD COUNT 2.6 10^3/uL (4.0-10.5)
[2019-03-07 06:32] LABS: BLOOD UREA NITROGEN 14 mg/dL (7-20); CALCIUM 8.6 mg/dL (8.4-10.2); CARBON DIOXIDE 39 mmol/L (22-30); CHLORIDE 94 mmol/L (98-107); CREATINE KINASE 24 U/L (30-135); GLUCOSE 80 mg/dL (75-110); POTASSIUM 3.9 mmol/L (3.6-5.0)
[2019-03-07 06:33] LABS: PHOSPHORUS 4.3 mg/dL (2.5-4.5)
[2019-03-07 06:35] LABS: ANION GAP 4 (5-19)
[2019-03-07] MEDS ORDERED: MIDAZOLAM 2 MG/2 ML INJ ONE (08:55)
[2019-03-07] MEDS ORDERED: FENTANYL CITRATE INJ/PF 100 MCG/2 ML AMPUL ONE (08:56)
[2019-03-07] MEDS ORDERED: LIDOCAINE 1% INJ-PF (10 MG/ML) 30 ML SDV ONE (08:57)
[2019-03-07] MEDS: ASPIRIN 81 MG TABLET, ENT COATED PO SCH (10:57)
[2019-03-07] MEDS: ISOSORBIDE MONONITRATE 30 MG TAB.ER.24H PO SCH (10:57)
[2019-03-07] MEDS: BUSPIRONE HCL 10 MG TABLET PO SCH ×2 (10:57→17:53)
[2019-03-07] MEDS: MEROPENEM 1 GM in NORMAL SALINE 50 ML IV SCH ×2 (10:57→22:19)
[2019-03-07] MEDS: POTASSIUM CHLORIDE 10 MEQ TABLET.ER PO SCH (10:58)
[2019-03-07] MEDS: SACUBITRIL/VALSARTAN 97 MG/103 MG TABLET PO SCH ×2 (10:58→22:21)
[2019-03-07] MEDS: PAROXETINE HCL 20 MG TABLET PO SCH (10:58)
[2019-03-07] MEDS: FUROSEMIDE 80 MG TABLET PO SCH ×2 (10:58→17:53)
[2019-03-07] MEDS: METOPROLOL SUCCINATE 25 MG TAB.SR.24H PO SCH ×2 (10:58→22:22)
--- NOTE | 2019-03-07 13:34 | PDOC CRITICAL CARE PROG REPORT ---
General Resuscitation Status: Full Code Medical Power of Supervisor [employer]: DaughterAparna Events in the past 12 to 24 Hours:: 03.07.2019: The patient had an uneventful night in a downgrade status while in ICU. He was maintained n.p.o. and heparin has been discontinued in preparation for placement of a tunneled PIC catheter. This was done without difficulty and the old central line was removed. I personally met with the interventional radiologist and they were distinct in that a fresh cannulation of the right IJ was done without using the previous central venous catheter. Patient has had significant bowel movements with the induction of a bowel hygiene program and the laxatives have been discontinued. She is maintained on stool softeners. 03.06.2019: Patient continues to maintain stability in the ICU under IMCU status. Her abdominal pain has improved significantly and she did have a bowel movement late this afternoon. This has improved her abdominal discomfort. X-ray done of the abdomen late yesterday evening showed extensive constipation. 03.05.2019:Patient tolerated BiPAP last evening and was transitioned to nasal cannula today. She has been resting comfortably without any shortness of breath or chest pain. There has been no bleeding. No hemodynamic instability and no atrial fibrillation. Review of systems relevant to events:: 03.07.2019: Patient denies dyspnea. Her abdominal pain is dramatically improved with the relief of constipation. She is more mobile and tolerating physical therapy. She actually moved herself in bed today. She has had no chest pain, abdominal distension, melena or hematochezia 03.06.2019: No melena noted. No shortness of breath or chest pain. Blood cultures still remain negative. CT scan of brain was done to rule out intracerebral process and this was negative. Her left-sided weakness has resolved. 03.05.2019: Patient feels that her left side is weak compared to the right. He denies headache or visual changes. Eliquis has been held because of renal failure and for planned tunneled catheter. Reason for ICU Addmission:: Respiratory failure, Need for mechanical ventilation - Medications: Medications reviewed and adjusted accordingly: Yes Vasopressors:: None Sedation:: None Physical Exam Vital Signs: Temp Pulse Resp BP Pulse Ox 99.0 F 84 29 H 117/97 H 98 03/07/19 12:00 03/07/19 12:00 03/07/19 12:03/07/19 12:00 03/07/19 12:00 Intake & Output 03/06/19 03/07/19 03/08/19 06:59 06:59 06:59 Intake Total 300 400 360 Output Total 4160 1786 Balance -8633 -3791 219 Weight 104.2 kg 103.6 kg Weight/Height Weight 103.6 kg Height 5 ft 4 in General appearance: PRESENT: no acute distress, cooperative, morbidly obese, well-nourished Exam: Nontoxic ill appearing pleasant 48-year-old black female no active distress she is awake and aware x4 Head exam: PRESENT: atraumatic, normocephalic Eye exam: PRESENT: conjunctiva pink, EOMI, PERRLA. ABSENT: nystagmus, scleral icterus Mouth exam: PRESENT: moist, neck supple, tongue midline Teeth exam: ABSENT: poor dentation Neck exam: ABSENT: carotid bruit, JVD, lymphadenopathy, thyromegaly Respiratory exam: PRESENT: clear to auscultation renu, unlabored. ABSENT: rales, rhonchi, tachypnea, wheezes Cardiovascular exam: PRESENT: RRR - Paced Pulses: PRESENT: +1 pedal pulses bilateral GI/Abdominal exam: PRESENT: normal bowel sounds, soft. ABSENT: ascites, distended, guarding, mass, organolmegaly, rebound, rigid, tenderness Rectal exam: PRESENT: deferred Gentrourinary exam: ABSENT: indwelling catheter Extremities exam: PRESENT: pedal edema Musculoskeletal exam: ABSENT: deformity, dislocation Neurological exam: PRESENT: alert, awake, oriented to person, oriented to place, oriented to time, oriented to situation, CN II-XII grossly intact. ABSENT: motor sensory deficit Psychiatric exam: PRESENT: appropriate affect, homicidal ideation, normal mood, suicidal ideation Focused psych exam: ABSENT: psychomotor agitation, restlessness Skin exam: PRESENT: dry, intact, warm. ABSENT: cyanosis, rash Laboratory/Radiographs Laboratory Results: 03/07/19 05:50 03/07/19 05:50 03/07/19 03/07/19 03/07/19 05:50 05:50 05:50 WBC 2.6 L RBC 2.96 L Hgb 8.7 L Hct 26.0 L MCV 88 MCH 29.3 MCHC 33.3 RDW 19.1 H Plt Count 313 Seg Neutrophils % 59.9 Sodium 136.6 L Potassium 3.9 Chloride 94 L Carbon Dioxide 39 H Anion Gap 4 L BUN 14 Creatinine 1.70 H Est GFR ( Amer) 39 L Glucose 80 Calcium 8.6 Phosphorus 4.3 Magnesium 1.8 02/08/19 02/08/19 02/08/19 04:06 04:06 05:30 Creatine Kinase Cancelled 33 CK-MB (CK-2) Cancelled Troponin I Cancelled NT-Pro-B Natriuret Pep Cancelled 02/08/19 02/11/19 02/13/19 05:45 03:18 01:22 Creatine Kinase CK-MB (CK-2) < 0.22 Troponin I 0.043 NT-Pro-B Natriuret Pep 7610 H 1970 H 83978 H 03/05/19 03/07/19 12:52 05:50 Creatine Kinase 39 24 L CK-MB (CK-2) Troponin I NT-Pro-B Natriuret Pep Impressions: Chest CT 02/10/19 00:00 IMPRESSION: No pneumothorax. No pleural effusions. Bibasilar consolidation in both lower lobes. Slightly increased interstitial thickening, basilar predominance. Scattered pulmonary cysts and ground-glass opacities are again noted. Tubes and lines in expected positions. Chest X-Ray 03/03/19 00:00 IMPRESSION: Interval extubation with improvement in bilateral edema and/or pneumonia. Head CT 03/05/19 00:00 IMPRESSION: No acute intracranial pathology. EVIDENCE OF ACUTE STROKE: NO. KUB X-Ray 03/05/19 00:00 IMPRESSION: Constipation. All labs, radiographs, diagnostic studies and EKGs were personally reviewed: Yes In addition, reports of radiographic and diagnostic studies were read: Yes Assessment and Plan - Diagnosis (1) Left-sided weakness Is this a current diagnosis for this admission?: Yes Plan: Resolved (2) MRSA bacteremia Is this a current diagnosis for this admission?: Yes Plan: 03.07.2019: Patient now has a tunneled PIC catheter for long-term antibiotic use. She will be on daptomycin as noted below with rifampin. She should be on a total of at least 6 weeks. The first initiation of any MRSA related antibiotics began approximately 02/11/2019 03.06.2019: Plan for tunneled picc catheter for long-term antibiotic. Recent cultures negative. Placed on Meropenem for coverage of possible tracheal colonization. Total of 7 days. 03.05.2019:Spoke with infectious disease. Their recommendation based on the patient's renal failure is to start daptomycin at 8-10 mg/kg daily in addition to rifampin 600 mg daily.. Given the current recommendations a higher dose w ould seem to improve result in less resistance. Have ordered a baseline CK and have discontinued atorvastatin and concern for synergistic rhabdomlysis. The RIJ has been in place > one week and interventional radiology will be placing a tunneled catheter on Tuesday to allow the Eliquis effect to wear off. (3) CAP (community acquired pneumonia) due to MRSA (methicillin resistant Staphylococcus aureus) Is this a current diagnosis for this admission?: Yes (4) Acute gastrointestinal bleeding Is this a current diagnosis for this admission?: Yes Plan: Resolved; EGD negative, colonoscopy negative. Mild gastritis was seen. No further bleeding noted. (5) MRSA (methicillin resistant staphylococcus aureus) pneumonia Qualifiers: Laterality: bilateral Lung location: unspecified part of lung Qualified Code(s): J15.212 - Pneumonia due to Methicillin resistant Staphylococcus aureus Is this a current diagnosis for this admission?: Yes Plan: Resolved (6) ARDS (adult respiratory distress syndrome) Is this a current diagnosis for this admission?: Yes Plan: Resolved (7) Sepsis Qualifiers: Sepsis type: methicillin resistant Staphylococcus aureus Sepsis acute organ dysfunction status: with acute organ dysfunction Severe sepsis acute organ dysfunction type: acute respiratory failure Acute respiratory failure type: with hypoxia Severe sepsis shock status: with septic shock Qualified Code(s): A41.02 - Sepsis due to Methicillin resistant Staphylococcus aureus; R65.21 - Severe sepsis with septic shock; J96.01 - Acute respiratory failure with hypoxia Is this a current diagnosis for this admission?: Yes Plan: Resolved (8) Hypotension Qualifiers: Hypotension type: other hypotension type Qualified Code(s): I95.89 - Other hypotension Is this a current diagnosis for this admission?: Yes Plan: Resolved (9) Pneumonitis Is this a current diagnosis for this admission?: Yes Plan: Resolving Concern for likely Amiodarone induced, however admitted to Vaping on last admission. Denies vaping recently (10) Ischemic cardiomyopathy with implantable cardioverter-defibrillator (ICD) Is this a current diagnosis for this admission?: Yes Plan: No discharges. Concern for lead infection still exists. Plan is for 6 weeks of antibiotics with follow up wit CT surgery at [facility] to consider explant (11) Cardiomyopathy, ischemic Is this a current diagnosis for this admission?: Yes Plan: Bi-ventricular, chronic systolic. Entresto increased today. Follow creatinine (12) Atrial fibrillation Qualifiers: Atrial fibrillation type: longstanding persistent Qualified Code(s): I48.11 - Longstanding persistent atrial fibrillation Is this a current diagnosis for this admission?: Yes Plan: Paroxysmal, not persistent, currently quiescent. Anticoagulation on hold with reduced GFR and obesity Dr. Ragsdale to restart Anticoagulation at his discretion. Await improvement in renal function. (13) Acute renal failure superimposed on chronic kidney disease Qualifiers: Acute renal failure type: unspecified Chronic kidney disease stage: stage 3 (moderate) Qualified Code(s): N17.9 - Acute kidney failure, unspecified; N18.3 - Chronic kidney disease, stage 3 (moderate) Is this a current diagnosis for this admission?: Yes Plan: Improving; creatinie 1.7 today. Watch for increased anticoagulation with renal failure Vancomycin has been discontinued and transitioned to daptomycin. Adjust medications for renal function (14) AICD (automatic cardioverter/defibrillator) present Is this a current diagnosis for this admission?: Yes (15) Atrial fibrillation Qualifiers: Atrial fibrillation type: paroxysmal Qualified Code(s): I48.0 - Paroxysmal atrial fibrillation Is this a current diagnosis for this admission?: Yes (16) Cardiomyopathy Qualifiers: Cardiomyopathy type: ischemic Qualified Code(s): I25.5 - Ischemic cardiomyopathy Is this a current diagnosis for this admission?: Yes (17) Lactic acidosis Is this a current diagnosis for this admission?: Yes Plan: Resolved (18) Engages in non-nicotine containing substance vaping Is this a current diagnosis for this admission?: No (19) Morbid obesity Is this a current diagnosis for this admission?: Yes (20) Shock, septic Is this a current diagnosis for this admission?: Yes Plan: resolved (21) Tracheitis Is this a current diagnosis for this admission?: Yes Plan: Does not appear to be HAP but colonization. CXR improving Plan Summary: 03.07.2019: Patient has continued impressive improvement despite a significant illness with ARDS and bacteremia. She now has a tunneled catheter which will allow for long-term antibiotics. The plan for at least 6 weeks of antibiotics before consideration for explant is still ongoing. As best that we can tell her first doses of MRSA related antibiotics in continuim would have started February 14 2019--received one bag of Vancomycin on 02/11/2019. Expected date of discontinuation would be March 28 but would need to consult with ID to be sure. [facility] will need to evaluate the patient in follow up. Had a significant ICU course which started out with ARDS and was ultimately fou nd to have MRSA bacteremia and MRSA pneumonia. A JOSS did not show vegetation but increased fibrous changes of the pacemaker leads. The concern was that this was also insurance claim representative of a pacemaker inf ection. Given her need for the AICD and her advanced cardiomyopathy removal of the pacemaker lead would be a difficult proposition. At this point patient will need to continue rehabilitation. We appreciate the help of Dr. Martin regarding the patient's cardiac status. Will transition the patient to medical floor status and in hopes to eventually discharge either to rehab or home pending her rehabilitative process within the hospital. As far as the Proteus and Enterobacter that was found on a sputum specimen, it is difficult to know whether this was colonization and or tracheitis. She has been on meropenem coverage and should continue this for a total of 7 days. She had intermittent coverage with antibiotic changes and so the official day 7 would have begun March 05, 2019. All central lines have been removed and Jones catheter has been removed as well. We will need to provide vigilance to assure that patient has urinated post catheter removal. The PICC site shows no hematoma or bleeding and will restart her heparin chemoprophylaxis. Dr. Martin has taken responsibility for anticoagulation for her her paroxysmal atrial fibrillation if needed. Will need to continue to follow CK with the daptomycin especially with the patient's renal function. Guidelines from external sources recommend weekly however given the patient's renal function we would recommend every 2 to 3 days. By convention her statin therapy has been held. 03.06.2019: Patient's physiologic and hemodynamic profile have remained non-labile. Attempt at wheezing nasal cannula resulted in mild hypoxia but improved with nasal cannula replacement. She has been started on subcutaneous heparin for DVT prophylaxis which will be held this evening in preparation for placement of a tunneled catheter for long-term antibiotics. She has remained stable on her CHF treatment paradigm. In addition to the above she has been placed on daptomycin and will continue to monitor her CK profile daily. She has had a significant improvement in her abdominal discomfort with the induction of a bowel movement today. Overall she is physically deconditioned from critical illness and will need rehabilitation. We are appreciative of physical therapy and occupational therapy working with her. Her motor weakness has improved significantly as well. Heparin will be held this evening and she has been made n.p.o. in preparation for procedure. Given her need for long-term antibiotics this may preclude her ability for inpatient rehab however we are working on obtaining resources to allow her to transition to a rehab program. Patient remains suitable for downgrade. 03.05.2019: Patient continues to make dramatic improvements overall. From a respiratory standpoint she is now only on BiPAP at night and now on nasal cannula during the day. The overall suspicion is that the patient had amiodarone induced lung toxicity in addition to MRSA pneumonia. She has improved we will continue to follow supportively. Patient has been on steroids and these have been successfully weaned. Will need to be cautious to follow for recrudescence. Additionally will need to be vigilant for adrenal insufficiency. From an Infectious disease standpoint, I spoke with Dr. Vy Rojo who provides infectious disease consultation remotely. She has been involved with the patient's case from the beginning. Given the concern for vancomycin induced renal failure we have transitioned the patient to daptomycin at a 8 to 10 mg/kilogram/per day dose. Given the patient's current weight we have dosed her at 1000 mg a day. Will check baseline CK, lactic acid, and follow liver function panel as well. In addition to the daptomycin we will start Rifampin at 600 mg a day. I have asked pharmacy to assure that there are no drug to drug interactions. Patient will have a tunneled catheter placed through a new continuous source and the central venous catheter will be removed. I have asked that the central venous catheter not be used to gain access for a tunnel catheter to prevent any further infectious complications. From a cardiac standpoint, we appreciate the assistance of Dr. Martin. He has placed the patient on a higher dose of Entresto and will continue diuresis. Patient has a new his balance with heart failure and will need to follow judiciously. Have discontinued the Lipitor because of the use of daptomycin. Continue supportive care. Patient will need to have a reevaluation by CT surgery regarding her pacemaker leads which may be the source of the infection. From a hematologic standpoint patient is off Eliquis in anticipation for placement of long-term catheter for antibiotics. Dr. Martin will restart this and is aware. Patient had a gastrointestinal bleed who site is still unaccounted for. Presumably this was small bowel however it has resolved spontaneously. From an endocrine standpoint, will need to follow for adrenal insufficiency given the long-term need for steroids during her acute crisis. From a renal standpoint we are adjusting medications for GFR. Following her creatinine as well. She is not a candidate at this time nor does she need dialysis consideration. Continue to monitor creatinine and GFR for adjustments in medications. Have discontinued nonessential medications including Pepcid. From a metabolic standpoint, we are monitoring the patient's electrolytes and mineral profile. Also monitoring for alkalosis related to renal failure. Her lactic acidosis has resolved. From a gastrointestinal standpoint there has been no further bleeding. Please see hematologic above. From a neurological standpoint, on examination patient does have weakness which is mild but demonstrable in the left upper and lower extremity. There is no sensory loss. Patient is right-hand dominant. Have ordered stat CT of head. Eliquis on hold. Suspect possible lacunar infarct. Further care pending CT scan. (Non-contrast). Cannot have MRI secondary to AICD. Critical Time Critical Time (minutes): 0 - [id number] Level of Care: MEDICAL Anticipated discharge: Acute Rehab Within: within 48 hours -: 1. The care of a critical patient is a dynamic process. This note is a insurance claim representative synopsis but static in nature. The timeframe for treatments given in order is not necessarily the actual time these treatments may have been done. 2. This patient requires critical care secondary to ongoing requirements for therapy not offered or safe outside the critical care environment. Transfer to a lower level of care will result in altered life or limb morbidity and mortality. 3. Multidisciplinary rounds completed. 4. ABCDE bundle addressed.
--- NOTE | 2019-03-07 13:44 | RADIOLOGY REPORT (SQ) ---
EXAM DESCRIPTION: TUNNELED CENTRAL LINE; ADDITIONAL CHARGE; GUIDANCE FLUOROSCOPIC; GUIDANCE ULTRASOU ND COMPLETED DATE/TIME: 03/07/2019 10:22 am; 03/07/2019 12:34 pm; 03/07/2019 10:20 am; 03/07/2019 10:18 am REASON FOR STUDY: NEED FOR VASCULAR ACCESS; PICC COMPARISON: None. FLUORO TIME: 0.6 minutes. 2 images submitted to PACS LIMITATIONS: None. PROCEDURE: The procedure, risks, benefits, and alternatives were discussed with the patient in the p reprocedural area, and all questions were answered. Informed consent was obtained verbally and in wri ting. The patient was then brought to the procedural suite, positioned supine on the fluoroscopy table, and a time-out was performed. The right supraclavicular region and upper chest were subsequently preppe d and draped with 2% chlorhexidine utilizing standard sterile technique. Then, after the tissues over the internal jugular vein were anesthetized with 1% lidocaine, ultrasound guidance was used to acces s the vessel with a 21-gauge needle. A 0.018 inch wire was subsequently inserted through the needle a nd advanced under fluoroscopic guidance into the IVC. Attention was then turned to right upper chest ; at first a site was selected on the upper chest appr oximately 2-3 fingerbreadths from the clavicle and anesthetized with 1% lidocaine. After that, an inc ision was made at the site with a #11 blade in order to create an entrance to the subcutaneous tunnel . The subcutaneous tissues up to the venotomy site in the supraclavicular region were then infiltrated with 1% lidocaine ; after that, a blunt tunneler was used to tunnel a 5 Fr dual-lumen PICC from the e ntrance of the subcutaneous tunnel to the venotomy site. A peel-away sheath was then introduced over the wire and advanced under fluoroscopic guidance into th e SVC. After that, the PICC was cut to the appropriate length of 23.5 cm, inserted through the sheath , and advanced into the right atrium. The peel-away sheath was then removed and proper position of th e catheter tip within the right atrium was documented with a fluoroscopic image of the chest. The catheter lumens were then aspirated, flushed with sterile saline, and heparinized per protocol. The PICC was then secured in place with an Ethilon suture and the venotomy site was approximated with Dermabond. After that, sterile dressings were applied over the PICC and venotomy site. The patient tolerated the procedure well without immediate complication. At the end of the procedure the patient's condition was unchanged from the preprocedural baseline. IV conscious sedation was administered at the direction of the performing physician by a moni wade. 0 milligrams of Versed and 50 micrograms of fentanyl were administered. Physiologic monitoring was provided before, during, and after sedation. The total sedation time was 3 0 minutes. Documentation of [id number] time performing proceduralist spent monitoring the patient: 15 minutes. IMPRESSION: Successful placement of a tunneled non-cuffed 5 Occitan dual lumen PICC via the right int ernal jugular vein utilizing fluoroscopic and sonographic guidance. COMMENT: Patient medication list reviewed: Yes- Quality ID# [id number]:Eligible professional attests to doc umenting in the medical record they obtained, updated, or reviewed the patient's current medications. Quality ID #76: The patient was prepped and draped using maximum sterile barrier technique including cap, mask, sterile gown, sterile gloves, a large sterile sheet, hand hygiene, and 2% Chlorhexidine fo r cutaneous antisepsis. When ultrasound is used, sterile ultrasound techniques are followed requiring sterile gel and sterile probes. Quality ID 145: Final reports for procedures using fluoroscopy that document radiation exposure stevo maya, or exposure time and number of fluorographic images (if radiation exposure indices are not avail able) TECHNICAL DOCUMENTATION: JOB ID: [id number] [employer]- All Rights Reserved rev-06/15 Reading location - IP/workstation name: [email or web address]
[2019-03-07] MEDS ORDERED: NORMAL SALINE INJ/PF 0.9% 10 ML SDV IV PRN (13:47)
[2019-03-07] MEDS: DAPTOMYCIN 1,000 MG in NORMAL SALINE 50 ML IV SCH (15:24)
[2019-03-07] MEDS: HEPARIN SOD (PORCINE) 5,000 UNIT/ML 1 ML VIAL SUBCUT SCH ×2 (15:25→22:21)
[2019-03-07] MEDS: OXYCODONE HCL IR 5 MG TABLET PO PRN (15:25)
[2019-03-07] MEDS: RIFAMPIN 300 MG CAPSULE PO SCH (15:26)
--- NOTE | 2019-03-07 16:50 | Progress Note ---
Provider Note Provider Note: CARDIOLOGY PROGRESS NOTE by Dr. Griselda Martin on 03/07/2019. OBJECTIVE: The patient denies any chest pain or discomfort. There is no shortness of breath. She still has some degree of orthopnea. There is no PND. The patient has been transitioned down to telemetry. She is off ICU status. She had a tunneled catheter placed in a jugular vein. There is no recurrence of atrial fibrillation. There is no ventriculostomy is seen. There is no firing of the AICD. PHYSICAL EXAMINATION: The patient is morbidly obese. In no acute distress. Selected Entries 03/07/19 03/07/19 03/07/19 07:40 07:58 08:00 Temperature 99.0 F Temperature Oral Source Pulse Rate 64 Respiratory 18 Rate Blood Pressure 128/89 H Blood Pressure 128/89 H [Right Upper Arm] Blood Pressure 102 Mean Blood Pressure 102 Mean [Right Upper Arm] O2 Sat by Pulse 99 Oximetry Oxygen Delivery Nasal Cannula Method ( 2 L/min. includes room air) Fraction of 30 Inspired Oxygen (FIO2) HEAD: Is atraumatic normocephalic. EYES: Pupils are equal round regular reactive to light. HEENT is negative. SKIN: There is no skin rashes or skin lesions. There is no particular ecchymosis. NECK: Is supple. There is mild JVD present. Carotids are equal there is no bruits. There is no lymphadenopathy. There is no goiter. There is no accessory muscle respiration use. Trachea central. LUNGS: At present the lungs are fairly clear to au scultation, without any rhonchi rales or wheezing. There is diminished air entry. On percussion there is hyperresonance. On palpation there is no chest wall tenderness. HEART: S1-S2 is heard. There is no S3 gallop. There is no S4 gallop. There is systolic murmur mitral regurgitation tricuspid regurgitation present. There is no aortic stenosis murmur. There is no aortic insufficiency murmur. There is no rub. ABDOMEN: Is obese. Nontender. There is no hepatosplenomegaly. Bowel sounds are well heard. There is no rebound guarding or rigidity. EXTREMITIES: Femorals are deep. Femorals are diminished. There is no femoral bruits. There is decreased leg pulses. There is mild pedal edema. stress engineer the patient is conscious awake alert oriented x3 with no focal deficits. PSYCHIATRIC: The patient judgment insight are intact. She does not appear to be agitated or anxious. Labs- All tests 24 hr 03/07/19 03/07/19 03/07/19 05:50 05:50 05:50 WBC 2.6 L RBC 2.96 L Hgb 8.7 L Hct 26.0 L MCV 88 MCH 29.3 MCHC 33.3 RDW 19.1 H Plt Count 313 Lymph % (Auto) 25.8 [place] % (Auto) 13.0 Eos % (Auto) 0.8 Baso % (Auto) 0.5 Absolute Neuts (auto) 1.6 L Absolute Lymphs (auto) 0.7 Absolute Monos (auto) 0.3 Absolute Eos (auto) 0.0 Absolute Basos (auto) 0.0 Seg Neutrophils % 59.9 Sodium 136.6 L Potassium 3.9 Chloride 94 L Carbon Dioxide 39 H Anion Gap 4 L BUN 14 Creatinine 1.70 H Est GFR ( Amer) 39 L Est GFR (MDRD) Non-Af 32 L Glucose 80 Calcium 8.6 Phosphorus 4.3 Magnesium 1.8 Creatine Kinase 24 L HIV 1&2 Antibody NEGATIVE Chest X-Ray 02/08/19 00:00 IMPRESSION: Slight advancement of endotracheal tube. Otherwise no change. Chest X-Ray 02/08/19 00:00 IMPRESSION: NO PNEUMOTHORAX FOLLOWING CENTRAL LINE PLACEMENT. OTHERWISE NO CHANGE. Chest X-Ray 02/08/19 03:15 IMPRESSION: Cardiomegaly. Endotracheal and enteric tubes are in place. Postsurgical changes of the mediastinum. Airspace opacities right lung base. copyright 2010 [employer]- All Rights Reserved Chest CT 02/10/19 00:00 IMPRESSION: No pneumothorax. No pleural effusions. Bibasilar consolidation in both lower lobes. Slightly increased interstitial thickening, basilar predominance. Scattered pulmonary cysts and ground-glass opacities are again noted. Tubes and lines in expected positions. Chest X-Ray 02/12/19 00:00 IMPRESSION: 1. Bilateral perihilar airspace consolidation which may be due to edema, atelectasis or pneumonia. 2. Marked cardiomegaly. 3. Remote postsurgical changes of the mediastinum. 4. Life support lines and tubes as described above. Chest X-Ray 02/13/19 06:00 IMPRESSION: STABLE APPEARANCE OF THE CHEST. SUPPORT DEVICES UNCHANGED. Chest X-Ray 02/14/19 06:00 IMPRESSION: Mildly worsened bibasilar predominant opacities, likely edema although infection not excluded. Stable support lines and tubes as above. Chest X-Ray 02/15/19 03:06 IMPRESSION: Diffuse persistent but improving interstitial and alveolar opacities throughout both lungs. Stable cardiomegaly. Chest X-Ray 02/16/19 06:00 IMPRESSION: Unchanged radiographic appearance of the chest. KUB X-Ray 02/16/19 15:49 IMPRESSION: The tip and side hole of the enteric tube project within the gastric lumen. Chest X-Ray 02/17/19 06:00 IMPRESSION: Findings most consistent with congestive failure an asymmetric pulmonary edema. Slightly improved. SUPPORT DEVICE(S) IN EXPECTED LOCATIONS. Chest X-Ray 02/18/19 00:00 IMPRESSION: New left IJ line with the tip overlying the proximal SVC. Consider advancement 3-4 cm. KUB X-Ray 02/18/19 00:00 IMPRESSION: NG tube tip in the fundus of the stomach. Chest X-Ray 02/19/19 06:00 IMPRESSION: Tubes and lines in good positioning. Stable marked cardiomegaly and mild residual alveolar and interstitial infiltrates Chest X-Ray 02/20/19 00:00 IMPRESSION: STABLE APPEARANCE OF THE CHEST. SUPPORT DEVICES UNCHANGED. Chest X-Ray 02/25/19 00:00 IMPRESSION: Cardiomegaly with diffuse interstitial edema copyright 2010 [employer]- All Rights Reserved Chest X-Ray 02/26/19 13:22 IMPRESSION: Tubes and catheters as described. Cardiomegaly with pulmonary edema that shows slight improvement. KUB X-Ray 02/26/19 13:25 IMPRESSION: NG tube tip overlies body of stomach, side port near the GE junction above the diaphragm. Chest X-Ray 03/03/19 00:00 IMPRESSION: Interval extubation with improvement in bilateral edema and/or pneumonia. Head CT 03/05/19 00:00 IMPRESSION: No acute intracranial pathology. EVIDENCE OF ACUTE STROKE: NO. KUB X-Ray 03/05/19 00:00 IMPRESSION: Constipation. Guidance Ultrasound 03/07/19 00:00 IMPRESSION: Successful placement of a tunneled non-cuffed 5 [place] dual lumen PICC via the right internal jugular vein utilizing fluoroscopic and sonographic guidance. Central Venous Line 03/07/19 09:30 IMPRESSION: Successful placement of a tunneled non-cuffed 5 [place] dual lumen PICC via the right internal jugular vein utilizing fluoroscopic and sonographic guidance. Guidance Fluoroscopy 03/07/19 09:30 IMPRESSION: Successful placement of a tunneled non-cuffed 5 [place] dual lumen PICC via the right internal jugular vein utilizing fluoroscopic and sonographic guidance. IMPRESSION/RECOMMENDATION: 1. Acute on chronic respiratory failure. This is much improved. The patient has been extubated. At present seems to have resolved 2. Hypotension: This resolved with adjustment of the patient's medication. 3. Acute on chronic systolic heart failure. Patient with LV ejection fraction of 25%. Continue beta-blockers and Entresto. Continue diuretics. 4. Acute exacerbation COPD: Continue bronchodilators and ventilatory support. 5. MRSA pneumonia: Continue antibiotics. 6. Amiodarone has been discontinued due to recurrence of pulmonary toxicity. 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 If need to start the patient on antiarrhythmic, would start the patient on sotalol at a very low dose in view of the compromised renal function. Would avoid amiodarone at all costs. 7. Acute on chronic kidney disease: Watch renal function as we implement aggressive diuresis. At present patient has chronic kidney disease stage III with a GFR of 43 mL per per minute. 8. Cardiomyopathy with severely reduced LV ejection fraction. Her medications adjusted. Her beta-rip has been decreased to Toprol 25 mg XL once daily since she is taking by mouth. Entresto has been decreased to 49/51.. Will decrease the patient's isosorbide mononitrate from 60 mg to 30 mg p.o. daily. 9. Paroxysmal atrial fibrillation: Continue beta-rip. The patient Eliquis had to be stopped due to patient's anemia and also prior occult positive bloo blood in the stools. The patient later will be restarted on Eliquis. 10. History of ventricular tachycardia, The patient has an AICD placed. If there is recurrence of ventricular tachycardia or major ventricular ectopic act ivity then would start the patient on small dose of sotalol. Would avoid amiodarone. 11. Hypertension: Blood pressure well controlled, on current medications. 12. Coronary artery disease: History of [place] and history of coronary bypass graft surgery. No evidence of acute coronary syndrome/non-ST ST elevation [place] this admission. 13. Obstructive sleep apnea. Note patient has been noncompliant with CPAP. Most likely has significant pulmonary hypertension. 14. AICD placement: Note the patient's basal rate is around 60 bpm. If the patient's heart failure continues then would recommend increasing the basal heart rate to 80 bpm to help combat the heart failure along with diuretics. 15. MRSA bacteremia: Continue antibiotics. Repeat blood cultures are far negative for growth of MRSA. Patient's prognosis is improved now.. Medications reviewed. Medical regimen discussed with the criminal justice instructor as well as medical management. In view of the need to adjust medications, medical decision making is of ordered complexity. 40 minutes spent on the patient more than 50% of time spent in direct patient care. Will follow.
[2019-03-07] MEDS ORDERED: NORMAL SALINE INJ/PF 0.9% 10 ML SDV IV SCH (22:00)
[2019-03-07] MEDS: MELATONIN 5 MG TABLET PO SCH (22:20)
[2019-03-07] MEDS: SENNOSIDES/DOCUSATE 8.6-50 MG 1 EACH TABLET PO SCH (22:22)
[2019-03-08] MEDS: HEPARIN SOD (PORCINE) 5,000 UNIT/ML 1 ML VIAL SUBCUT SCH ×3 (05:52→21:53)
[2019-03-08 07:40] LABS: BLOOD UREA NITROGEN 15 mg/dL (7-20); CALCIUM 8.6 mg/dL (8.4-10.2); CREATINE KINASE 23 U/L (30-135); GLUCOSE 75 mg/dL (75-110); PHOSPHORUS 4.6 mg/dL (2.5-4.5)
[2019-03-08 07:46] LABS: HEMATOCRIT 28.3 % (36.0-47.0); HEMOGLOBIN 9.2 g/dL (12.0-15.5); MEAN CORPUSCULAR HEMOGLOBIN 28.8 pg (27.0-33.4); MEAN CORPUSCULAR HGB CONC 32.5 g/dL (32.0-36.0); MEAN CORPUSCULAR VOLUME 89 fl (80-97); PLATELET COUNT 383 10^3/uL (150-450); RED BLOOD COUNT 3.19 10^6/uL (3.72-5.28); RED CELL DISTRIBUTION WIDTH 19.8 % (11.5-14.0); WHITE BLOOD COUNT 3.1 10^3/uL (4.0-10.5)
[2019-03-08 08:19] LABS: CARBON DIOXIDE 37 mmol/L (22-30); CHLORIDE 94 mmol/L (98-107)
[2019-03-08 08:20] LABS: ABSOLUTE LYMPHOCYTES# (MANUAL) 0.9 10^3/uL (0.5-4.7); ABSOLUTE MONOCYTES # (MANUAL) 0.3 10^3/uL (0.1-1.4); ANISOCYTOSIS 2+; BASOPHILS % (MANUAL) 0 % (0-2); EOSINOPHILS % (MANUAL) 0 % (0-6); LYMPHOCYTES % (MANUAL) 26 % (13-45); METAMYELOCYTES % (MANUAL) 1 % (0-1); MONOCYTES % (MANUAL) 9 % (3-13); OVALOCYTES SLIGHT; PLATELET COMMENT ADEQUATE; POIKILOCYTOSIS SLIGHT; SEGMENTED NEUTROPHILS % (MAN) 62 % (42-78); TOTAL CELLS COUNTED 100
[2019-03-08 08:26] LABS: ANION GAP 6 (5-19)
[2019-03-08] MEDS: FUROSEMIDE 80 MG TABLET PO SCH ×2 (10:30→17:54)
[2019-03-08] MEDS: ASPIRIN 81 MG TABLET, ENT COATED PO SCH (10:30)
[2019-03-08] MEDS: MEROPENEM 1 GM in NORMAL SALINE 50 ML IV SCH ×2 (10:30→21:53)
[2019-03-08] MEDS: POTASSIUM CHLORIDE 10 MEQ TABLET.ER PO SCH (10:30)
[2019-03-08] MEDS: PAROXETINE HCL 20 MG TABLET PO SCH (10:31)
[2019-03-08] MEDS: ISOSORBIDE MONONITRATE 30 MG TAB.ER.24H PO SCH (10:31)
[2019-03-08] MEDS: BUSPIRONE HCL 10 MG TABLET PO SCH ×2 (10:32→18:11)
[2019-03-08] MEDS: METOPROLOL SUCCINATE 25 MG TAB.SR.24H PO SCH ×2 (10:32→21:52)
[2019-03-08] MEDS: OXYCODONE HCL IR 5 MG TABLET PO PRN ×2 (10:50→18:00)
[2019-03-08] MEDS: SACUBITRIL/VALSARTAN 97 MG/103 MG TABLET PO SCH ×2 (11:36→21:52)
--- NOTE | 2019-03-08 14:14 | Progress Note ---
Provider Note Provider Note: CARDIOLOGY PROGRESS NOTE by Dr. Griselda Martin on 03/08/2019. Subjective: The patient is being transferred to telemetry unit. She is in no acute distress. She denies any chest pain discomfort. There is no shortness of breath. There is no PND orthopnea. There is no recurrence of atrial fibrillation. There is no ventricular arrhythmia seen on the monitor. There is no firing of the AICD. There is no TIA CVA symptoms. The patient will be started back on Eliquis but note that the patient is on rifampin which can decrease the bioavailability of Eliquis. But hopefully the duration of the course of rifampin shot. The patient since admission has lost a lot of weight and her BMI has come down from above 40 2 now 31. PHYSICAL EXAMINATION: The patient presents mildly obese. She appears to be chronically ill. She is in no acute distress. Selected Entries 03/08/19 14:59 Temperature 98.3 F Temperature Oral Source Pulse Rate 68 Respiratory 18 Rate Blood Pressure 104/71 Blood Pressure 82 Mean BP Location Right Arm BP Position Supine O2 Sat by Pulse 96 Oximetry Oxygen Flow 3.00 Rate Oxygen Delivery Nasal Cannula Method HEAD: Is atraumatic normocephalic. EYES: Pupils are equal round regular reactive to light. HEENT is negative. SKIN: There is no skin rashes or skin lesions. There is no particular ecchymosis. NECK: Is supple. There is mild JVD present. Carotids are equal there is no bruits. There is no lymphadenopathy. There is no goiter. There is no accessory muscle respiration use. Trachea central. LUNGS: At present the lungs are fairly clear to auscultation, without any rhonchi rales or wheezing. There is diminished air entry. On percussion there is hyperresonance. On palpation there is no chest wall tenderness. HEART: S1-S2 is heard. There is no S3 gallop. There is no S4 gallop. There is systolic murmur mitral regurgitation tricuspid regurgitation present. There is no aortic stenosis murmur. There is no aortic insufficiency murmur. There is no rub. ABDOMEN: Is obese. Nontender. There is no hepatospl enomegaly. Bowel sounds are well heard. There is no rebound guarding or rigidity. EXTREMITIES: Femorals are deep. Femorals are diminished. There is no femoral bruits. There is decreased leg pulses. There is mild pedal edema. background check coordinator the patient is conscious awake alert oriented x3 with no focal deficits. PSYCHIATRIC: The patient judgment insight are intact. She does not appear to be agitated or anxious. Chest X-Ray 02/08/19 00:00 IMPRESSION: Slight advancement of endotracheal tube. Otherwise no change. Chest X-Ray 02/08/19 00:00 IMPRESSION: NO PNEUMOTHORAX FOLLOWING CENTRAL LINE PLACEMENT. OTHERWISE NO CHANGE. Chest X-Ray 02/08/19 03:15 IMPRESSION: Cardiomegaly. Endotracheal and enteric tubes are in place. Postsurgical changes of the mediastinum. Airspace opacities right lung base. copyright 2010 [employer]- All Rights Reserved Chest CT 02/10/19 00:00 IMPRESSION: No pneumothorax. No pleural effusions. Bibasilar consolidation in both lower lobes. Slightly increased interstitial thickening, basilar predominance. Scattered pulmonary cysts and ground-glass opacities are again noted. Tubes and lines in expected positions. Chest X-Ray 02/12/19 00:00 IMPRESSION: 1. Bilateral perihilar airspace consolidation which may be due to edema, atelectasis or pneumonia. 2. Marked cardiomegaly. 3. Remote postsurgical changes of the mediastinum. 4. Life support lines and tubes as described above. Chest X-Ray 02/13/19 06:00 IMPRESSION: STABLE APPEARANCE OF THE CHEST. SUPPORT DEVICES UNCHANGED. Chest X-Ray 02/14/19 06:00 IMPRESSION: Mildly worsened bibasilar predominant opacities, likely edema although infection not excluded. Stable support lines and tubes as above. Chest X-Ray 02/15/19 03:06 IMPRESSION: Diffuse persistent but improving interstitial and alveolar opacities throughout both lungs. Stable cardiomegaly. Chest X-Ray 02/16/19 06:00 IMPRESSION: Unchanged radiographic appearance of the chest. KUB X-Ray 02/16/19 15:49 IMPRESSION: The tip and side hole of the enteric tube project within the gastric lumen. Chest X-Ray 02/17/19 06:00 IMPRESSION: Findings most consistent with congestive failure an asymmetric pulmonary edema. Slightly improved. SUPPORT DEVICE(S) IN EXPECTED LOCATIONS. Chest X-Ray 02/18/19 00:00 IMPRESSION: New left IJ line with the tip overlying the proximal SVC. Consider advancement 3-4 cm. KUB X-Ray 02/18/19 00:00 IMPRESSION: NG tube tip in the fundus of the stomach. Chest X-Ray 02/19/19 06:00 IMPRESSION: Tubes and lines in good positioning. Stable marked cardiomegaly and mild residual alveolar and interstitial infiltrates Chest X-Ray 02/20/19 00:00 IMPRESSION: STABLE APPEARANCE OF THE CHEST. SUPPORT DEVICES UNCHANGED. Chest X-Ray 02/25/19 00:00 IMPRESSION: Cardiomegaly with diffuse interstitial edema copyright 2010 [employer]- All Rights Reserved Chest X-Ray 02/26/19 13:22 IMPRESSION: Tubes and catheters as described. Cardiomegaly with pulmonary edema that shows slight improvement. KUB X-Ray 02/26/19 13:25 IMPRESSION: NG tube tip overlies body of stomach, side port near the GE junction above the diaphragm. Chest X-Ray 03/03/19 00:00 IMPRESSION: Interval extubation with improvement in bilateral edema and/or pneumonia. Head CT 03/05/19 00:00 IMPRESSION: No acute intracranial pathology. EVIDENCE OF ACUTE STROKE: NO. KUB X-Ray 03/05/19 00:00 IMPRESSION: Constipation. Guidance Ultrasound 03/07/19 00:00 IMPRESSION: Successful placement of a tunneled non-cuffed 5 [place] dual lumen PICC via the right internal jugular vein utilizing fluoroscopic and sonographic guidance. Central Venous Line 03/07/19 09:30 IMPRESSION: Successful placement of a tunneled non-cuffed 5 [place] dual lumen PICC via the right internal jugular vein utilizing fluoroscopic and sonographic guidance. Guidance Fluoroscopy 03/07/19 09:30 IMPRESSION: Successful placement of a tunneled non-cuffed 5 [place] dual lumen PICC via the right internal jugular vein utilizing fluoroscopic and sonographic guidance. Labs- All tests 24 hr 03/08/19 03/08/19 06:08 06:08 WBC 3.1 L RBC 3.19 L Hgb 9.2 L Hct 28.3 L MCV 89 MCH 28.8 MCHC 32.5 RDW 19.8 H Plt Count 383 Lymph % (Auto) Not Reportable [place] % (Auto) Not Reportable Eos % (Auto) Not Reportable Baso % (Auto) Not Reportable Absolute Neuts (auto) Not Reportable Absolute Lymphs (auto) Not Reportable Absolute Monos (auto) Not Reportable Absolute Eos (auto) Not Reportable Absolute Basos (auto) Not Reportable Total Counted 100 Seg Neutrophils % Not Reportable Seg Neuts % (Manual) 62 Lymphocytes % (Manual) 26 Atypical Lymphs % 2 Monocytes % (Manual) 9 Eosinophils % (Manual) 0 Basophils % (Manual) 0 Metamyelocytes % 1 Abs Neuts (Manual) 2.0 Abs Lymphs (Manual) 0.9 Abs Monocytes (Manual) 0.3 Absolute Eos (Manual) 0.0 Abs Basophils (Manual) 0.0 Platelet Comment ADEQUATE Poikilocytosis SLIGHT Anisocytosis 2+ Ovalocytes SLIGHT Sodium 137.4 Potassium 4.0 Chloride 94 L Carbon Dioxide 37 H Anion Gap 6 BUN 15 Creatinine 1.96 H Est GFR ( Amer) 33 L Est GFR (MDRD) Non-Af 27 L Glucose 75 Calcium 8.6 Phosphorus 4.6 H Magnesium 1.9 Creatine Kinase 23 L IMPRESSION/RECOMMENDATION: 1. Acute on chronic respiratory failure. This is much improved. The patient has been extubated. At present seems to have resolved 2. Hypotension: This resolved with adjustment of the patient's medication. 3. Acute on chronic systolic heart failure. Patient with LV ejection fraction of 25%. Continue beta-blockers and Entresto. Continue diuretics. 4. Acute exacerbation COPD: Continue bronchodilators and ventilatory support. 5. MRSA pneumonia: Continue antibiotics. 6. Amiodarone has been discontinued due to recurrence of pulmonary toxicity. 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 If need to start the patient on antiarrhythmic, would start the patient on sotalol at a very low dose in view of the compromised renal function. Would avoid amiodarone at all costs. 7. Acute on chronic kidney disease: Watch renal function as we implement aggressive diuresis. At present patient has chronic kidney disease stage III with a GFR of 43 mL per per minute. 8. Cardiomyopathy with severely reduced LV ejection fraction. Her medications adjusted. Her beta-rip has been decreased to Toprol 25 mg XL once daily since she is taking by mouth. Entresto has been decreased to 49/51.. Will decrease the patient's isosorbide mononitrate from 60 mg to 30 mg p.o. daily. 9. Paroxysmal atrial fibrillation: Continue beta-rip. The patient Eliquis had to be stopped due to patient's anemia and also prior occult positive bloo blood in the stools. The patient later will be restarted on Eliquis. 10. History of ventricular tachycardia, The patient has an AICD placed. If there is recurrence of ventricular tachycardia or major ventricular ectopic activity then would start the patient on small dose of sotalol. Would avoid amiodarone. 11. Hypertension: Blood pressure well controlled, on current medications. 12. Coronary artery disease: History of [place] and history of coronary bypass graft surgery. No evidence of acute coronary syndrome/non-ST ST elevation [place] this admission. 13. Obstructive sleep apnea. Note patient has been noncompliant with CPAP. Most likely has significant pulmonary hypertension. 14. AICD placement: Note the patient's basal rate is around 60 bpm. If the patient's heart failure continues then would recommend increasing the basal heart rate to 80 bpm to help combat the heart failure along with diuretics. 15. MRSA bacteremia: Continue antibiotics. Repeat blood cultures are far negative for growth of MRSA. Patient's prognosis is improved now.. Medications reviewed. Medical regimen discussed with the clinical laboratory scientist as well as medical management. In view of the need to adjust medications, medical decision making is of heart rate complexity. 40 minutes spent on the patient more than 50% of time spent in direct patient care. Will follow.
[2019-03-08] MEDS: DAPTOMYCIN 1,000 MG in NORMAL SALINE 50 ML IV SCH (14:41)
[2019-03-08] MEDS: RIFAMPIN 300 MG CAPSULE PO SCH (14:42)
[2019-03-08] MEDS: MELATONIN 5 MG TABLET PO SCH (21:53)
[2019-03-08] MEDS: SENNOSIDES/DOCUSATE 8.6-50 MG 1 EACH TABLET PO SCH (21:53)
[2019-03-09] MEDS: HEPARIN SOD (PORCINE) 5,000 UNIT/ML 1 ML VIAL SUBCUT SCH (06:36)
[2019-03-09] MEDS: BUSPIRONE HCL 10 MG TABLET PO SCH ×2 (09:51→17:33)
[2019-03-09] MEDS: FUROSEMIDE 80 MG TABLET PO SCH ×2 (09:51→17:33)
[2019-03-09] MEDS: MEROPENEM 1 GM in NORMAL SALINE 50 ML IV SCH (09:51)
[2019-03-09] MEDS: SACUBITRIL/VALSARTAN 97 MG/103 MG TABLET PO SCH ×2 (09:52→21:55)
[2019-03-09] MEDS: METOPROLOL SUCCINATE 25 MG TAB.SR.24H PO SCH ×2 (09:52→21:55)
[2019-03-09] MEDS: PAROXETINE HCL 20 MG TABLET PO SCH (09:52)
[2019-03-09] MEDS: POTASSIUM CHLORIDE 10 MEQ TABLET.ER PO SCH (09:52)
[2019-03-09] MEDS: ASPIRIN 81 MG TABLET, ENT COATED PO SCH (09:52)
[2019-03-09] MEDS: ISOSORBIDE MONONITRATE 30 MG TAB.ER.24H PO SCH (09:52)
--- NOTE | 2019-03-09 10:49 | PDOC PROGRESS REPORT ---
Subjective Progress Note for:: 03/08/19 Subjective:: Patient was seen on morning rounds. She was found resting, comfortable, lying supine in bed on supplemental oxygen via NC. She reports generalized fatigue and weakness. Otherwise, she has no new questions or concerns today. She specifically denies fever, chills, chest pain, palpitations, dyspnea, orthopnea, abdominal pain, nausea, and peripheral edema. No questions per nursing. Has received Marshall catheter. Requires 3 weeks IV abx for bacteremia r/t MRSA pneumonia. Reason For Visit: TUNNEL PICC/COPD EXACERBATION,CHF,RESPIRATORY Physical Exam Vital Signs: Temp Pulse Resp BP Pulse Ox 98.2 F 62 19 112/71 97 03/09/19 08:05 03/09/19 08:05 03/09/19 08:05 03/09/19 08:05 03/09/19 08:05 Intake & Output 03/08/19 03/09/19 03/10/19 06:59 06:59 06:59 Intake Total 1030 1348 Balance 1030 1348 Weight 82 kg 82.3 kg General appearance: PRESENT: no acute distress, cooperative, obese, well- developed, well-nourished Head exam: PRESENT: atraumatic, normocephalic Eye exam: PRESENT: conjunctiva pink, EOMI, PERRLA. ABSENT: scleral icterus Ear exam: PRESENT: normal external ear exam Mouth exam: PRESENT: moist, tongue midline Neck exam: ABSENT: carotid bruit, JVD, lymphadenopathy, thyromegaly Respiratory exam: PRESENT: clear to auscultation renu, symmetrical, unlabored. ABSENT: rales, rhonchi, wheezes Cardiovascular exam: PRESENT: RRR. ABSENT: diastolic murmur, rubs, systolic murmur Pulses: PRESENT: normal dorsalis pedis pul Vascular exam: PRESENT: normal capillary refill GI/Abdominal exam: PRESENT: normal bowel sounds, soft. ABSENT: distended, g uarding, mass, organolmegaly, rebound, tenderness Rectal exam: PRESENT: deferred Extremities exam: PRESENT: full ROM. ABSENT: calf tenderness, clubbing, pedal edema Neurological exam: PRESENT: alert, awake, oriented to person, oriented to place, oriented to time, oriented to situation, CN II-XII grossly intact. ABSENT: mo tor sensory deficit Psychiatric exam: PRESENT: appropriate affect, normal mood. ABSENT: homicidal ideation, suicidal ideation Skin exam: PRESENT: dry, intact, warm. ABSENT: cyanosis, rash Results Laboratory Results: 03/08/19 06:08 03/08/19 06:08 02/08/19 02/08/19 02/08/19 04:06 04:06 05:30 Creatine Kinase Cancelled 33 CK-MB (CK-2) Cancelled Troponin I Cancelled NT-Pro-B Natriuret Pep Cancelled 02/08/19 02/11/19 02/13/19 05:45 03:18 01:22 Creatine Kinase CK-MB (CK-2) < 0.22 Troponin I 0.043 NT-Pro-B Natriuret Pep 7610 H 1970 H [id number] H 03/05/19 03/07/19 03/08/19 12:52 05:50 06:08 Creatine Kinase 39 24 L 23 L CK-MB (CK-2) Troponin I NT-Pro-B Natriuret Pep Impressions: Chest CT 02/10/19 00:00 IMPRESSION: No pneumothorax. No pleural effusions. Bibasilar consolidation in both lower lobes. Slightly increased interstitial thickening, basilar predominance. Scattered pulmonary cysts and ground-glass opacities are again noted. Tubes and lines in expected positions. Chest X-Ray 03/03/19 00:00 IMPRESSION: Interval extubation with improvement in bilateral edema and/or pneumonia. Head CT 03/05/19 00:00 IMPRESSION: No acute intracranial pathology. EVIDENCE OF ACUTE STROKE: NO. KUB X-Ray 03/05/19 00:00 IMPRESSION: Constipation. Guidance Ultrasound 03/07/19 00:00 IMPRESSION: Successful placement of a tunneled non-cuffed 5 English dual lumen PICC via the right internal jugular vein utilizing fluoroscopic and sonographic guidance. Central Venous Line 03/07/19 09:30 IMPRESSION: Successful placement of a tunneled non-cuffed 5 English dual lumen PICC via the right internal jugular vein utilizing fluoroscopic and sonographic guidance. Guidance Fluoroscopy 03/07/19 09:30 IMPRESSION: Successful placement of a tunneled non-cuffed 5 English dual lumen PICC via the right internal jugular vein utilizing fluoroscopic and sonographic guidance. Assessment and Plan - Diagnosis (1) Acute gastrointestinal bleeding Is this a current diagnosis for this admission?: Yes (2) Acute renal failure superimposed on chronic kidney disease Qualifiers: Acute renal failure type: unspecified Chronic kidney disease stage: stage 3 (moderate) Qualified Code(s): N17.9 - Acute kidney failure, unspecified; N18.3 - Chronic kidney disease, stage 3 (moderate) Is this a current diagnosis for this admission?: Yes (3) Atrial fibrillation Qualifiers: Atrial fibrillation type: longstanding persistent Qualified Code(s): I48.11 - Longstanding persistent atrial fibrillation Is this a current diagnosis for this admission?: Yes (4) CAP (community acquired pneumonia) due to MRSA (methicillin resistant Staphylococcus aureus) Is this a current diagnosis for this admission?: Yes (5) Hypotension Qualifiers: Hypotension type: other hypotension type Qualified Code(s): I95.89 - Other hypotension Is this a current diagnosis for this admission?: Yes (6) Ischemic cardiomyopathy with implantable cardioverter-defibrillator (ICD) Is this a current diagnosis for this admission?: Yes (7) Left-sided weakness Is this a current diagnosis for this admission?: Yes (8) Morbid obesity Is this a current diagnosis for this admission?: Yes (9) MRSA (methicillin resistant staphylococcus aureus) pneumonia Qualifiers: Laterality: bilateral Lung location: unspecified part of lung Qualified Code(s): J15.212 - Pneumonia due to Methicillin resistant Staphylococcus aureus Is this a current diagnosis for this admission?: Yes (10) MRSA bacteremia Is this a current diagnosis for this admission?: Yes (11) Pneumonitis Is this a current diagnosis for this admission?: Yes (12) Sepsis Qualifiers: Sepsis type: methicillin resistant Staphylococcus aureus Sepsis acute organ dysfunction status: with acute organ dysfunction Severe sepsis acute organ dysfunction type: acute respiratory failure Acute respiratory failure type: with hypoxia Severe sepsis shock status: with septic shock Qualified Code(s): A41.02 - Sepsis due to Methicillin resistant Staphylococcus aureus; R65.21 - Severe sepsis with septic shock; J96.01 - Acute respiratory failure with hypoxia Is this a current diagnosis for this admission?: Yes (13) Tracheitis Is this a current diagnosis for this admission?: Yes - Plan Summary Summary: Patient was downgraded from ICU on 03/08/19 after long stay for Community Acquired Pneumonia (MRSA) resulting in ARDS requiring intubation, acute exacerbation of her Systolic CHF, acute exacerbation of her chronic kidney failure, MRSA bacteremia, and generalized debility. Infectious disease was consulted and recommend IV antibiotics x 6weeks from date of clearance (03/05/19) with end date of 04/16/19. At that time, repeat cultures should be obtained. If she remains positive, she will then require consultation with CT surgery for removal of her AICD. Due to history of substance abuse, she is not a good candidate for outpatient infusion. Patient remains significantly debilitated; will consult PT/OT. Cardiology has been consulted. Dr. Ragsdale recommends resumption of renally dosed Eliquis. Continue pulmonary toilet, as needed nebulizer treatments, and ambulation for recovery of her pneumonia. She does utilize home O2. - Time Time Spent with patient: 15-24 minutes Medications reviewed and adjusted accordingly: Yes Anticipated discharge: Home Within: Other - 04/17/18
[2019-03-09 11:46] LABS: HIV-1 RNA PCR QUANT <20 copies/mL (.)
[2019-03-09] MEDS: OXYCODONE HCL IR 5 MG TABLET PO PRN (14:41)
[2019-03-09] MEDS: RIFAMPIN 300 MG CAPSULE PO SCH (15:00)
[2019-03-09] MEDS: DAPTOMYCIN 1,000 MG in NORMAL SALINE 50 ML IV SCH (15:01)
--- NOTE | 2019-03-09 17:13 | PDOC PROGRESS REPORT ---
Subjective Progress Note for:: 03/09/19 Subjective:: The patient is resting in bed. She has a K pad on her back. She is in good spirits. Nasal cannula in place. Her supper is just been delivered. Currently with no acute complaints except decreased appetite. She has a central venous catheter tunneled in the right upper chest. Reason For Visit: TUNNEL PICC/COPD EXACERBATION,CHF,RESPIRATORY Physical Exam Vital Signs: Temp Pulse Resp BP Pulse Ox 98.4 F 64 18 105/61 93 03/09/19 15:48 03/09/19 15:48 03/09/19 15:48 03/09/19 15:48 03/09/19 15:48 Intake & Output 03/08/19 03/09/19 03/10/19 06:59 06:59 06:59 Intake Total 1030 1398 564 Output Total 1 Balance 1030 1398 563 Weight 82 kg 82.3 kg General appearance: PRESENT: no acute distress, cooperative, well-developed Exam: Tunneled catheter right upper chest Eye exam: PRESENT: conjunctiva pink. ABSENT: scleral icterus - 30 sclera Ear exam: PRESENT: normal external ear exam. ABSENT: bleeding, drainage Mouth exam: PRESENT: moist, tongue midline Respiratory exam: PRESENT: clear to auscultation renu, symmetrical, unlabored. ABSENT: rales, rhonchi, tachypnea, wheezes Cardiovascular exam: PRESENT: RRR, +S1, +S2 GI/Abdominal exam: PRESENT: normal bowel sounds, soft. ABSENT: distended, tenderness Rectal exam: PRESENT: deferred Neurological exam: PRESENT: alert, awake, oriented to person, oriented to place, oriented to time, oriented to situation, CN II-XII grossly intact Psychiatric exam: PRESENT: appropriate affect, normal mood. ABSENT: agitated, anxious Skin exam: PRESENT: abrasion - Scattered small abrasion-like lesions on the skin that appear to be healing. Results Laboratory Results: 03/08/19 06:08 03/08/19 06:08 02/08/19 02/08/19 02/08/19 04:06 04:06 05:30 Creatine Kinase Cancelled 33 CK-MB (CK-2) Cancelled Troponin I Cancelled NT-Pro-B Natriuret Pep Cancelled 02/08/19 02/11/19 02/13/19 05:45 03:18 01:22 Creatine Kinase CK-MB (CK-2) < 0.22 Troponin I 0.043 NT-Pro-B Natriuret Pep 7610 H 1970 H 45469 H 03/05/19 03/07/19 03/08/19 12:52 05:50 06:08 Creatine Kinase 39 24 L 23 L CK-MB (CK-2) Troponin I NT-Pro-B Natriuret Pep Impressions: Chest CT 02/10/19 00:00 IMPRESSION: No pneumothorax. No pleural effusions. Bibasilar consolidation in both lower lobes. Slightly increased interstitial thickening, basilar predominance. Scattered pulmonary cysts and ground-glass opacities are again noted. Tubes and lines in expected positions. Chest X-Ray 03/03/19 00:00 IMPRESSION: Interval extubation with improvement in bilateral edema and/or pneumonia. Head CT 03/05/19 00:00 IMPRESSION: No acute intracranial pathology. EVIDENCE OF ACUTE STROKE: NO. KUB X-Ray 03/05/19 00:00 IMPRESSION: Constipation. Guidance Ultrasound 03/07/19 00:00 IMPRESSION: Successful placement of a tunneled non-cuffed 5 [place] dual lumen PICC via the right internal jugular vein utilizing fluoroscopic and sonographic guidance. Central Venous Line 03/07/19 09:30 IMPRESSION: Successful placement of a tunneled non-cuffed 5 [place]zeri dual lumen PICC via the right internal jugular vein utilizing fluoroscopic and sonographic guidance. Guidance Fluoroscopy 03/07/19 09:30 IMPRESSION: Successful placement of a tunneled non-cuffed 5 [place]zer[place] dual lumen PICC via the right internal jugular vein utilizing fluoroscopic and sonographic guidance. Assessment and Plan - Diagnosis (1) Acute gastrointestinal bleeding Is this a current diagnosis for this admission?: Yes (2) Acute renal failure superimposed on chronic kidney disease Qualifiers: Acute renal failure type: unspecified Chronic kidney disease stage: stage 3 (moderate) Qualified Code(s): N17.9 - Acute kidney failure, unspecified; N18.3 - Chronic kidney disease, stage 3 (moderate) Is this a current diagnosis for this admission?: Yes (3) Atrial fibrillation Qualifiers: Atrial fibrillation type: longstanding persistent Qualified Code(s): I48.11 - Longstanding persistent atrial fibrillation Is this a current diagnosis for this admission?: Yes (4) CAP (community acquired pneumonia) due to MRSA (methicillin resistant Staphylococcus aureus) Is this a current diagnosis for this admission?: Yes (5) Hypotension Qualifiers: Hypotension type: other hypotension type Qualified Code(s): I95.89 - Other hypotension Is this a current diagnosis for this admission?: Yes (6) Ischemic cardiomyopathy with implantable cardioverter-defibrillator (ICD) Is this a current diagnosis for this admission?: Yes (7) Left-sided weakness Is this a current diagnosis for this admission?: Yes (8) Obesity (BMI 30.0-34.9) Is this a current diagnosis for this admission?: Yes (9) MRSA (methicillin resistant staphylococcus aureus) pneumonia Qualifiers: Laterality: bilateral Lung location: unspecified part of lung Qualified Code(s): J15.212 - Pneumonia due to Methicillin resistant Staphylococcus aureus Is this a current diagnosis for this admission?: Yes (10) MRSA bacteremia Is this a current diagnosis for this admission?: Yes (11) Pneumonitis Is this a current diagnosis for this admission?: Yes (12) Sepsis Qualifiers: Sepsis type: methicillin resistant Staphylococcus aureus Sepsis acute organ dysfunction status: with acute organ dysfunction Severe sepsis acute organ dysfunction type: acute respiratory failure Acute respiratory failure type: with hypoxia Severe sepsis shock status: with septic shock Qualified Code(s): A41.02 - Sepsis due to Methicillin resistant Staphylococcus aureus; R65.21 - Severe sepsis with septic shock; J96.01 - Acute respiratory failure with hypoxia Is this a current diagnosis for this admission?: Yes (13) Tracheitis Is this a current diagnosis for this admission?: Yes - Plan Summary Summary: Patient was downgraded from ICU on 03/08/19 after long stay for Community Acquired Pneumonia (MRSA) resulting in ARDS requiring intubation, acute exacerbation of her Systolic CHF, acute exacerbation of her chronic kidney failure, MRSA bactere carmenza, and generalized debility. Infectious disease was consulted and recommend IV antibiotics x 6weeks from date of clearance (03/05/19) with end date of 04/16/19. At that time, repeat cultures should be obtained. If she remains positive, she will then require consultation with CT surgery for removal of her AICD. Due to history of substance abuse, she is not a good candidate for outpatient infusion. Patient remains significantly debilitated; will consult PT/OT. Cardiology has been consulted. Dr. Ragsdale recommends resumption of renally dosed Eliquis. Continue pulmonary toilet, as needed nebulizer treatments, and ambulation for recovery of her pneumonia. She does utilize home O2. 03/09/2019- The patient is now on the medical floor. She is quite comfortable. Sepsis is resolved however infectious disease consultation suggest a total of 6 weeks IV antibiotics from the last negative blood culture for her MRSA bacteremia secondary to her MRSA pneumonia. Her pneumonitis and tracheitis from mechanical ventilation are resolved as well. Cardiology continues to follow for her ischemic cardiology with AICD. Her blood pressure still borderline low on her current regimen. This may need to be adjusted. Will discuss with cardiology. A. fib is controlled. She is back to her baseline oxygen requirements. She appears to be back her close to her baseline chronic renal failure. We will continue current treatment plan as outlined - Time Time Spent with patient: Less than 15 minutes Medications reviewed and adjusted accordingly: Yes
[2019-03-09] MEDS: APIXABAN 2.5 MG TABLET PO SCH (17:33)
[2019-03-09 19:28] LABS: HEMATOCRIT 30.1 % (36.0-47.0); HEMOGLOBIN 10.1 g/dL (12.0-15.5); MEAN CORPUSCULAR HEMOGLOBIN 29.4 pg (27.0-33.4); MEAN CORPUSCULAR HGB CONC 33.5 g/dL (32.0-36.0); MEAN CORPUSCULAR VOLUME 88 fl (80-97); PLATELET COUNT 483 10^3/uL (150-450); RED BLOOD COUNT 3.43 10^6/uL (3.72-5.28); RED CELL DISTRIBUTION WIDTH 19.3 % (11.5-14.0)
[2019-03-09] MEDS: MELATONIN 5 MG TABLET PO SCH (21:55)
[2019-03-09] MEDS: SENNOSIDES/DOCUSATE 8.6-50 MG 1 EACH TABLET PO SCH (21:55)
--- NOTE | 2019-03-09 23:27 | Progress Note ---
Provider Note Provider Note: CARDIOLOGY PROGRESS NOTE by Dr. Griselda Martin on 03/09/2019. OBJECTIVE: The patient denies any chest pain or discomfort. There is no shortness of breath. There is no PND orthopnea or cough. There is no leg edema. There is no recurrence of atrial fibrillation. There is no ventricular arrhythmias seen. There is no firing of the AICD. There is no TIA CVA symptoms. There is no bleeding on Eliquis. PHYSICAL EXAMINATION: The patient is mildly obese having lost a lot of weight this admission. She is in no acute distress Selected Entries 03/09/19 12:11 Temperature 98.2 F Temperature Oral Source Pulse Rate 63 Respiratory 18 Rate Blood Pressure 108/74 Blood Pressure 85 Mean BP Location Left Arm BP Position Supine O2 Sat by Pulse 96 Oximetry Oxygen Flow 4.00 Rate Oxygen Delivery Nasal Cannula Method HEAD: Is atraumatic normocephalic. EYES: Pupils are equal round regular reactive to light. HEENT is negative. SKIN: There is no skin rashes or skin lesions. There is no particular ecchymosis. NECK: Is supple. There is mild JVD present. Carotids are equal there is no bruits. There is no lymphadenopathy. There is no goiter. There is no accessory muscle respiration use. Trachea central. LUNGS: At present the lungs are fairly clear to auscultation, without any rhonchi rales or wheezing. There is diminished air entry. On percussion there is hyperresonance. On palpation there is no chest wall tenderness. HEART: S1-S2 is heard. There is no S3 gallop. There is no S4 gallop. There is systolic murmur mitral regurgitation tricuspid regurgitation present. There is no aortic stenosis murmur. There is no aortic insufficiency murmur. There is no rub. ABDOMEN: Is obese. Nontender. There is no hepatosplenomegaly. Bowel sounds are well heard. There is no rebound guarding or rigidity. EXTREMITIES: Femorals are deep. Femorals are diminished. There is no femoral bruits. There is decreased leg pulses. There is mild pedal edema. 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 PSYCHIATRIC: The patient judgment insight are intact. She does not appear to be agitated or anxious. Current Medications Alprazolam (Xanax 0.5 Mg Tablet) 0.5 mg PO Q6HP PRN PRN Reason: ANXIETY Stop: 03/13/19 10:21 Apixaban (Eliquis 2.5 Mg Tablet) 2.5 mg PO BID [facility] Stop: 04/08/19 17:59 Last Admin: 03/09/19 17:33 Dose: 2.5 mg Documented by: Aspirin (Ecotrin 81 Mg Ec Tablet) 81 mg PO DAILY [facility] Stop: 03/31/19 09:59 Last Admin: 03/09/19 09:52 Dose: 81 mg Documented by: Buspirone HCl (Buspar 10 Mg Tablet) 10 mg PO BID [facility] Stop: 03/30/19 17:59 Last Admin: 03/09/19 17:33 Dose: 10 mg Documented by: Furosemide (Lasix 80 Mg Tablet) 80 mg PO BID [facility] Stop: 03/30/19 17:59 Last Admin: 03/09/19 17:33 Dose: 80 mg Documented by: Daptomycin 1,000 mg/ Sodium (Chloride) 50 mls @ 100 mls/hr IV DAILY@1400 [facility] Stop: 03/12/19 13:59 Last Admin: 03/09/19 15:01 Dose: 100 mls/hr, 100 mls/hr Documented by: Isosorbide Mononitrate (Imdur 30 Mg Tablet.Er) 30 mg PO DAILY [facility] Stop: 04/01/19 09:59 Last Admin: 03/09/19 09:52 Dose: 30 mg Documented by: Melatonin (Melatonin 5 Mg Tablet) 10 mg PO QHS [facility] Stop: 04/04/19 21:59 Last Admin: 03/09/19 21:55 Dose: 10 mg Documented by: Metoprolol Succinate (Toprol Xl 25 Mg Tab.Sr) 25 mg PO Q12 [facility] Stop: 04/03/19 21:59 Last Admin: 03/09/19 21:55 Dose: 25 mg Documented by: Nitroglycerin (Nitrostat 0.4 Mg (1/150 Gr) Tabs 25/Bottle) 1 tab SL Q5MP PRN PRN Reason: CHEST PAIN Stop: 03/30/19 10:21 Oxycodone HCl (Oxy-Ir 5 Mg Tablet) 5 mg PO Q4HP PRN PRN Reason: PAIN Stop: 03/16/19 12:59 Last Admin: 03/09/19 14:41 Dose: 5 mg Documented by: Paroxetine HCl (Paxil 20 Mg Tablet) 20 mg PO DAILY [facility] Stop: 03/31/19 09:59 Last Admin: 03/09/19 09:52 Dose: 20 mg Documented by: Pharmacy Profile Note (Medication Communication Order) 1 each [facility] .NOTICE NR Stop: 03/28/19 13:29 Potassium Chloride (Klor-Con 10 Meq Tablet Er) 40 meq PO DAILY [facility] Stop: 03/27/19 09:59 Last Admin: 03/09/19 09:52 Dose: 40 meq Documented by: Rifampin (Rifadin 300 Mg Capsule) 600 mg PO DAILY@1400 [facility] Stop: 03/12/19 13:59 Last Admin: 03/09/19 15:00 Dose: 600 mg Documented by: Sacubitril/Valsartan (Entresto 97 Mg/103 Mg Tablet) 1 tab PO Q12 [facility] Stop: 04/03/19 21:59 Last Admin: 03/09/19 21:55 Dose: 1 tab Documented by: Senna/Docusate Sodium (Senna Plus Tablet) 2 each PO QHS [facility] Stop: 04/04/19 21:59 Last Admin: 03/09/19 21:55 Dose: 2 each Documented by: Sodium Chloride (Nacl 0.9% Inj/Pf 10 Ml Sdv) 10 ml IV .AFTER EACH USE PRN PRN Reason: AFTER EACH INTERMITTENT USE Stop: 04/06/19 10:38 Labs- All tests 24 hr 03/07/19 03/09/19 05:50 19:21 WBC 4.0 RBC 3.43 L Hgb 10.1 L Hct 30.1 L MCV 88 MCH 29.4 MCHC 33.5 RDW 19.3 H Plt Count 483 H HIV-1 RNA Qnt (RT-PCR) <20 HIV-1 RNA (PCR) log10 TNP Chest X-Ray 02/08/19 00:00 IMPRESSION: Slight advancement of endotracheal tube. Otherwise no change. Chest X-Ray 02/08/19 00:00 IMPRESSION: NO PNEUMOTHORAX FOLLOWING CENTRAL LINE PLACEMENT. OTHERWISE NO CHANGE. Chest X-Ray 02/08/19 03:15 IMPRESSION: Cardiomegaly. Endotracheal and enteric tubes are in place. Postsurgical changes of the mediastinum. Airspace opacities right lung base. copyright 2010 [employer]- All Rights Reserved Chest CT 02/10/19 00:00 IMPRESSION: No pneumothorax. No pleural effusions. Bibasilar consolidation in both lower lobes. Slightly increased interstitial thickening, basilar predominance. Scattered pulmonary cysts and ground-glass opacities are again noted. Tubes and lines in expected positions. Chest X-Ray 02/12/19 00:00 IMPRESSION: 1. Bilateral perihilar airspace consolidation which may be due to edema, atelectasis or pneumonia. 2. Marked cardiomegaly. 3. Remote postsurgical changes of the mediastinum. 4. Life support lines and tubes as described above. Chest X-Ray 02/13/19 06:00 IMPRESSION: STABLE APPEARANCE OF THE CHEST. SUPPORT DEVICES UNCHANGED. Chest X-Ray 02/14/19 06:00 IMPRESSION: Mildly worsened bibasilar predominant opacities, likely edema although infection not excluded. Stable support lines and tubes as above. Chest X-Ray 02/15/19 03:06 IMPRESSION: Diffuse persistent but improving interstitial and alveolar opacities throughout both lungs. Stable cardiomegaly. Chest X-Ray 02/16/19 06:00 IMPRESSION: Unchanged radiographic appearance of the chest. KUB X-Ray 02/16/19 15:49 IMPRESSION: The tip and side hole of the enteric tube project within the gastric lumen. Chest X-Ray 02/17/19 06:00 IMPRESSION: Findings most consistent with congestive failure an asymmetric pulmonary edema. Slightly improved. SUPPORT DEVICE(S) IN EXPECTED LOCATIONS. Chest X-Ray 02/18/19 00:00 IMPRESSION: New left IJ line with the tip overlying the proximal SVC. Consider advancement 3-4 cm. KUB X-Ray 02/18/19 00:00 IMPRESSION: NG tube tip in the fundus of the stomach. Chest X-Ray 02/19/19 06:00 IMPRESSION: Tubes and lines in good positioning. Stable marked cardiomegaly and mild residual alveolar and interstitial infiltrates Chest X-Ray 02/20/19 00:00 IMPRESSION: STABLE APPEARANCE OF THE CHEST. SUPPORT DEVICES UNCHANGED. Chest X-Ray 02/25/19 00:00 IMPRESSION: Cardiomegaly with diffuse interstitial edema copyright 2010 [employer]- All Rights Reserved Chest X-Ray 02/26/19 13:22 IMPRESSION: Tubes and catheters as described. Cardiomegaly with pulmonary edema that shows slight improvement. KUB X-Ray 02/26/19 13:25 IMPRESSION: NG tube tip overlies body of stomach, side port near the GE junction above the diaphragm. Chest X-Ray 03/03/19 00:00 IMPRESSION: Interval extubation with improvement in bilateral edema and/or pneumonia. Head CT 03/05/19 00:00 IMPRESSION: No acute intracranial pathology. EVIDENCE OF ACUTE STROKE: NO. KUB X-Ray 03/05/19 00:00 IMPRESSION: Constipation. Guidance Ultrasound 03/07/19 00:00 IMPRESSION: Successful placement of a tunneled non-cuffed 5 [place] dual lumen PICC via the right internal jugular vein utilizing fluoroscopic and sonographic guidance. Central Venous Line 03/07/19 09:30 IMPRESSION: Successful placement of a tunneled non-cuffed 5 [place] dual lumen PICC via the right internal jugular vein utilizing fluoroscopic and sonographic guidance. Guidance Fluoroscopy 03/07/19 09:30 IMPRESSION: Successful placement of a tunneled non-cuffed 5 [place] dual lumen PICC via the right internal jugular vein utilizing fluoroscopic and sonographic guidance. IMPRESSION/RECOMMENDATION: 1. Acute on chronic respiratory failure. This is much improved. The patient has been extubated. At present seems to have resolved 2. Hypotension: This resolved with adjustment of the patient's medication. 3. Acute on chronic systolic heart failure. Patient with LV ejection fraction of 25%. Continue beta-blockers and Entresto. Continue diuretics. 4. Acute exacerbation COPD: Continue bronchodilators and ventilatory support. 5. MRSA pneumonia: Continue antibiotics. 6. Amiodarone has been discontinued due to recurrence of pulmonary toxicity. 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 If need to start the patient on antiarrhythmic, would start the patient on sotalol at a very low dose in view of the compromised renal function. Would avoid amiodarone at all costs. 7. Acute on chronic kidney disease: Watch renal function as we implement aggressive diuresis. At present patient has chronic kidney disease stage III with a GFR of 43 mL per per minute. 8. Cardiomyopathy with severely reduced LV ejection fraction. Her medications adjusted. Her beta-rip has been decreased to Toprol 25 mg XL once daily si nce she is taking by mouth. Entresto has been decreased to 49/51.. Will decrease the patient's isosorbide mononitrate from 60 mg to 30 mg p.o. daily. 9. Paroxysmal atrial fibrillation: Continue beta-rip. The patient Eliquis had to be stopped due to patient's anemia and also prior occult positive bloo blood in the stools. The patient later will be restarted on Eliquis. 10. History of ventricular tachycardia, The patient has an AICD placed. If there is recurrence of ventricular tachycardia or major ventricular ectopic activity then would start the patient on small dose of sotalol. Would avoid amiodarone. 11. Hypertension: Blood pressure well controlled, on current medications. 12. Coronary artery disease: History of [place] and history of coronary bypass graft surgery. No evidence of acute coronary syndrome/non-ST ST elevation [place] this admission. 13. Obstructive sleep apnea. Note patient has been noncompliant with CPAP. Most likely has significant pulmonary hypertension. 14. AICD placement: Note the patient's basal rate is around 60 bpm. If the patient's heart failure continues then would recommend increasing the basal heart rate to 80 bpm to help combat the heart failure along with diuretics. 15. MRSA bacteremia: Continue antibiotics. Repeat blood cultures are far negative for growth of MRSA. Patient's prognosis is improved now.. Medications reviewed. Medical regimen discussed with the director bioinformatics as well as medical management. In view of the need to adjust medications, medical decision making is of heart rate complexity. 40 minutes spent on the patient more than 50% of time spent in direct patient care. Will follow.
[2019-03-10] MEDS: ISOSORBIDE MONONITRATE 30 MG TAB.ER.24H PO SCH (10:26)
[2019-03-10] MEDS: BUSPIRONE HCL 10 MG TABLET PO SCH ×2 (10:26→17:31)
[2019-03-10] MEDS: METOPROLOL SUCCINATE 25 MG TAB.SR.24H PO SCH ×2 (10:26→22:17)
[2019-03-10] MEDS: SACUBITRIL/VALSARTAN 97 MG/103 MG TABLET PO SCH ×2 (10:26→22:19)
[2019-03-10] MEDS: APIXABAN 2.5 MG TABLET PO SCH ×2 (10:26→17:31)
[2019-03-10] MEDS: FUROSEMIDE 80 MG TABLET PO SCH ×2 (10:26→17:31)
[2019-03-10] MEDS: ASPIRIN 81 MG TABLET, ENT COATED PO SCH (10:26)
[2019-03-10] MEDS: PAROXETINE HCL 20 MG TABLET PO SCH (10:26)
[2019-03-10] MEDS: POTASSIUM CHLORIDE 10 MEQ TABLET.ER PO SCH (10:27)
[2019-03-10] MEDS: NORMAL SALINE INJ/PF 0.9% 10 ML SDV IV PRN (11:13)
[2019-03-10] MEDS: OXYCODONE HCL IR 5 MG TABLET PO PRN (11:20)
[2019-03-10] MEDS ORDERED: NORMAL SALINE 10 ML SDV (AFTER EACH USE) IV PRN (11:30)
[2019-03-10] MEDS: DAPTOMYCIN 1,000 MG in NORMAL SALINE 50 ML IV SCH (17:31)
[2019-03-10] MEDS: RIFAMPIN 300 MG CAPSULE PO SCH (17:32)
--- NOTE | 2019-03-10 19:02 | PDOC PROGRESS REPORT ---
Subjective Progress Note for:: 03/10/19 Subjective:: Patient is sitting up in the chair. She was congratulated for her efforts to stay out of bed. She has no new complaints. Reason For Visit: TUNNEL PICC/COPD EXACERBATION,CHF,RESPIRATORY Physical Exam Vital Signs: Temp Pulse Resp BP Pulse Ox 98.0 F 65 20 115/75 96 03/10/19 15:07 03/10/19 15:07 03/10/19 15:07 03/10/19 15:07 03/10/19 15:07 Intake & Output 03/09/19 03/10/19 03/11/19 06:59 06:59 06:59 Intake Total 3456 672 1756 Output Total 1 Balance 7935 193 3670 Weight 82.3 kg 83.1 kg General appearance: PRESENT: no acute distress, cooperative Respiratory exam: PRESENT: rales - Faint at bases. ABSENT: rhonchi, wheezes Cardiovascular exam: PRESENT: RRR, +S1, +S2 GI/Abdominal exam: PRESENT: normal bowel sounds, soft. ABSENT: tenderness Neurological exam: PRESENT: alert, awake, oriented to person, oriented to place, oriented to time, oriented to situation, CN II-XII grossly intact Results Laboratory Results: 03/09/19 19:21 03/08/19 06:08 03/09/19 19:21 WBC 4.0 RBC 3.43 L Hgb 10.1 L Hct 30.1 L MCV 88 MCH 29.4 MCHC 33.5 RDW 19.3 H Plt Count 483 H 03/05/19 10:51 Blood Blood Culture - Final NO GROWTH IN 5 DAYS 03/05/19 10:57 Blood Blood Culture - Final NO GROWTH IN 5 DAYS 02/08/19 02/08/19 02/08/19 04:06 04:06 05:30 Creatine Kinase Cancelled 33 CK-MB (CK-2) Cancelled Troponin I Cancelled NT-Pro-B Natriuret Pep Cancelled 02/08/19 02/11/19 02/13/19 05:45 03:18 01:22 Creatine Kinase CK-MB (CK-2) < 0.22 Troponin I 0.043 NT-Pro-B Natriuret Pep 7610 H 1970 H 60728 H 03/05/19 03/07/19 03/08/19 12:52 05:50 06:08 Creatine Kinase 39 24 L 23 L CK-MB (CK-2) Troponin I NT-Pro-B Natriuret Pep Impressions: Chest CT 02/10/19 00:00 IMPRESSION: No pneumothorax. No pleural effusions. Bibasilar consolidation in both lower lobes. Slightly increased interstitial thickening, basilar predominance. Scattered pulmonary cysts and ground-glass opacities are again noted. Tubes and lines in expected positions. Chest X-Ray 03/03/19 00:00 IMPRESSION: Interval extubation with improvement in bilateral edema and/or pneumonia. Head CT 03/05/19 00:00 IMPRESSION: No acute intracranial pathology. EVIDENCE OF ACUTE STROKE: NO. KUB X-Ray 03/05/19 00:00 IMPRESSION: Constipation. Guidance Ultrasound 03/07/19 00:00 IMPRESSION: Successful placement of a tunneled non-cuffed 5 [place] dual lumen PICC via the right internal jugular vein utilizing fluoroscopic and sonographic guidance. Central Venous Line 03/07/19 09:30 IMPRESSION: Successful placement of a tunneled non-cuffed 5 [place] dual lumen PICC via the right internal jugular vein utilizing fluoroscopic and sonographic guidance. Guidance Fluoroscopy 03/07/19 09:30 IMPRESSION: Successful placement of a tunneled non-cuffed 5 [place] dual lumen PICC via the right internal jugular vein utilizing fluoroscopic and sonographic guidance. Assessment and Plan - Diagnosis (1) Acute gastrointestinal bleeding Is this a current diagnosis for this admission?: Yes (2) Acute renal failure superimposed on chronic kidney disease Qualifiers: Acute renal failure type: unspecified Chronic kidney disease stage: stage 3 (moderate) Qualified Code(s): N17.9 - Acute kidney failure, unspecified; N18.3 - Chronic kidney disease, stage 3 (moderate) Is this a current diagnosis for this admission?: Yes (3) Atrial fibrillation Qualifiers: Atrial fibrillation type: longstanding persistent Qualified Code(s): I48.11 - Longstanding persistent atrial fibrillation Is this a current diagnosis for this admission?: Yes (4) CAP (community acquired pneumonia) due to MRSA (methicillin resistant Staphylococcus aureus) Is this a current diagnosis for this admission?: Yes (5) Hypotension Qualifiers: Hypotension type: other hypotension type Qualified Code(s): I95.89 - Other hypotension Is this a current diagnosis for this admission?: Yes (6) Ischemic cardiomyopathy with implantable cardioverter-defibrillator (ICD) Is this a current diagnosis for this admission?: Yes (7) Left-sided weakness Is this a current diagnosis for this admission?: Yes (8) Obesity (BMI 30.0-34.9) Is this a current diagnosis for this admission?: Yes (9) MRSA (methicillin resistant staphylococcus aureus) pneumonia Qualifiers: Laterality: bilateral Lung location: unspecified part of lung Qualified Code(s): J15.212 - Pneumonia due to Methicillin resistant Staphylococcus aureus Is this a current diagnosis for this admission?: Yes (10) MRSA bacteremia Is this a current diagnosis for this admission?: Yes (11) Pneumonitis Is this a current diagnosis for this admission?: Yes (12) Sepsis Qualifiers: Sepsis type: methicillin resistant Staphylococcus aureus Sepsis acute organ dysfunction status: with acute organ dysfunction Severe sepsis acute organ dysfunction type: acute respiratory failure Acute respiratory failure type: with hypoxia Severe sepsis shock status: with septic shock Qualified Code(s): A41.02 - Sepsis due to Methicillin resistant Staphylococcus aureus; R65.21 - Severe sepsis with septic shock; J96.01 - Acute respiratory failure with hypoxia Is this a current diagnosis for this admission?: Yes (13) Tracheitis Is this a current diagnosis for this admission?: Yes - Plan Summary Summary: Patient was downgraded from ICU on 03/08/19 after long stay for Community Acquired Pneumonia (MRSA) resulting in ARDS requiring intubation, acute exacerbation of her Systolic CHF, acute exacerbation of her chronic kidney failure, MRSA b acteremia, and generalized debility. Infectious disease was consulted and recommend IV antibiotics x 6weeks from date of clearance (03/05/19) with end date of 04/16/19. At that time, repeat cultures should be obtained. If she remains positive, she will then require consultation with CT surgery for removal of her AICD. Due to history of substance abuse, she is not a good candidate for outpatient in fusion. Patient remains significantly debilitated; will consult PT/OT. Cardiology has been consulted. Dr. Ragsdale recommends resumption of renally dosed Eliquis. Continue pulmonary toilet, as needed nebulizer treatments, and ambulation for recovery of her pneumonia. She does utilize home O2. 03/09/2019- The patient is now on the medical floor. She is quite comfortable. Sepsis is resolved however infectious disease consultation suggest a total of 6 weeks IV antibiotics from the last negative blood culture for her MRSA bacteremia secondary to her MRSA pneumonia. Her pneumonitis and tracheitis from mechanical ventilation are resolved as well. Cardiology continues to follow for her ischemic cardiology with AICD. Her blood pressure still borderline low on her current regimen. This may need to be adjusted. Will discuss with cardiology. A. fib is controlled. She is back to her baseline oxygen requirements. She appears to be back her close to her baseline chronic renal failure. We will continue current treatment plan as outlined 03/10/2019-patient is doing well. Plan course is for 6 weeks IV daptomycin. Stable from a cardiology standpoint. BUN and creatinine are slightly higher so I have decreased her furosemide to 60 mg twice daily will continue to monitor I's and O's, telemetry and vital signs - Time Time Spent with patient: 15-24 minutes Medications reviewed and adjusted accordingly: Yes Anticipated discharge: Home
[2019-03-10] MEDS: NORMAL SALINE 10 ML SDV (SCHEDULED) IV SCH (22:00)
[2019-03-10] MEDS: SENNOSIDES/DOCUSATE 8.6-50 MG 1 EACH TABLET PO SCH (22:17)
[2019-03-10] MEDS: MELATONIN 5 MG TABLET PO SCH (22:18)
--- NOTE | 2019-03-10 23:51 | Progress Note ---
Provider Note Provider Note: CARDIOLOGY PROGRESS NOTE by Dr. Griselda Martin on 03/10/2019. SUBJECTIVE: The patient denies any chest pain or discomfort. There is no shortness of breath. There is no PND orthopnea or leg edema. There is no recurrence of atrial fibrillation. There is no ventricular arrhythmia seen on the monitor. There is no firing of the AICD. There is no bleeding on Eliquis. There is no TIA CVA symptoms. PHYSICAL EXAMINATION: The patient mildly obese. In no acute distress Selected Entries 03/10/19 08:11 Temperature 98.7 F Temperature Oral Source Pulse Rate 66 Respiratory 21 H Rate Blood Pressure 110/74 Blood Pressure 86 Mean BP Location Left Arm BP Position Supine O2 Sat by Pulse 98 Oximetry Oxygen Flow 4.00 Rate Oxygen Delivery Nasal Cannula Method HEAD: Is atraumatic normocephalic. EYES: Pupils are equal round regular reactive to light. HEENT is negative. SKIN: There is no skin rashes or skin lesions. There is no particular ecchymosis. NECK: Is supple. There is mild JVD present. Carotids are equal there is no bruits. There is no lymphad enopathy. There is no goiter. There is no accessory muscle respiration use. Trachea central. LUNGS: At present the lungs are fairly clear to auscultation, without any rhonchi rales or wheezing. There is diminished air entry. On percussion there is hyperresonance. On palpation there is no chest wall tenderness. HEART: S1-S2 is heard. There is no S3 gallop. There is no S4 gallop. There is systolic murmur mitral regurgitation tricuspid regurgitation present. There is no aortic stenosis murmur. There is no aortic insufficiency murmur. There is no rub. ABDOMEN: Is obese. Nontender. There is no hepatosplenomegaly. Bowel sounds are well heard. There is no rebound guarding or rigidity. EXTREMITIES: Femorals are deep. Femorals are diminished. There is no femoral bruits. There is decreased leg pulses. There is mild pedal edema. cma or lpn the patient is conscious awake alert oriented x3 with no focal deficits. PSYCHIATRIC: The patient judgment insight are intact. She does not appear to be agitated or anxious. Labs reviewed. IMPRESSION/RECOMMENDATION: 1. Acute on chronic respiratory failure. This is much improved. The patient has been extubated. At present seems to have resolved 2. Hypotension: This resolved with adjustment of the patient's medication. 3. Acute on chronic systolic heart failure. Patient with LV ejection fraction of 25%. Continue beta-blockers and Entresto. Continue diuretics. 4. Acute exacerbation COPD: Continue bronchodilators and ventilatory support. 5. MRSA pneumonia: Continue antibiotics. 6. Amiodarone has been discontinued due to recurrence of pulmonary toxicity. 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 If need to start the patient on antiarrhythmic, would start the patient on sotalol at a very low dose in view of the compromised renal function. Would avoid amiodarone at all costs. 7. Acute on chronic kidney disease: Watch renal function as we implement aggressive diuresis. At present patient has chronic kidney disease stage III with a GFR of 43 mL per per minute. 8. Cardiomyopathy with severely reduced LV ejection fraction. Her medications adjusted. Her beta-rip has been decreased to Toprol 25 mg XL once daily since she is taking by mouth. Entresto has been decreased to 49/51.. Will decrease the patient's isosorbide mononitrate from 60 mg to 30 mg p.o. daily. 9. Paroxysmal atrial fibrillation: Continue beta-rip. The patient Eliquis had to be stopped due to patient's anemia and also prior occult positive bloo blood in the stools. The patient later will be restarted on Eliquis. 10. History of ventricular tachycardia, The patient has an AICD placed. If there is recurrence of ventricular tachycardia or major ventricular ectopic activity then would start the patient on small dose of sotalol. Would avoid amiodarone. 11. Hypertension: Blood pressure well controlled, on current medications. 12. Coronary artery disease: History of [place] and history of coronary bypass graft surgery. No evidence of acute coronary syndrome/non-ST ST elevation [place] this admission. 13. Obstructive sleep apnea. Note patient has been noncompliant with CPAP. Most likely has significant pulmonary hypertension. 14. AICD placement: Note the patient's basal rate is around 60 bpm. If the patient's heart failure continues then would recommend increasing the basal heart rate to 80 bpm to help combat the heart failure along with diuretics. 15. MRSA bacteremia: Continue antibiotics. Repeat blood cultures are far negative for growth of MRSA. Patient's prognosis is improved now.. Medications reviewed. Medical regimen discussed with the real estate consultant as well as medical management. In view of the need to adjust medications, medical decision making is of moderate complexity. 40 minutes spent on the patient more than 50% of time spent in direct patient care. Will follow.
[2019-03-11] MEDS: METOPROLOL SUCCINATE 25 MG TAB.SR.24H PO SCH ×2 (09:35→21:20)
[2019-03-11] MEDS: PAROXETINE HCL 20 MG TABLET PO SCH (09:35)
[2019-03-11] MEDS: SACUBITRIL/VALSARTAN 97 MG/103 MG TABLET PO SCH ×2 (09:35→21:27)
[2019-03-11] MEDS: FUROSEMIDE 80 MG TABLET PO SCH ×2 (09:41→17:46)
[2019-03-11] MEDS: ISOSORBIDE MONONITRATE 30 MG TAB.ER.24H PO SCH (09:41)
[2019-03-11] MEDS: POTASSIUM CHLORIDE 10 MEQ TABLET.ER PO SCH (09:41)
[2019-03-11] MEDS: BUSPIRONE HCL 10 MG TABLET PO SCH ×2 (09:41→17:46)
[2019-03-11] MEDS: APIXABAN 2.5 MG TABLET PO SCH ×2 (09:41→17:46)
[2019-03-11] MEDS: ASPIRIN 81 MG TABLET, ENT COATED PO SCH (09:42)
[2019-03-11] MEDS: NORMAL SALINE 10 ML SDV (SCHEDULED) IV SCH ×2 (09:43→21:38)
[2019-03-11] MEDS: DAPTOMYCIN 1,000 MG in NORMAL SALINE 50 ML IV SCH (13:44)
[2019-03-11] MEDS: RIFAMPIN 300 MG CAPSULE PO SCH (13:44)
[2019-03-11] MEDS: OXYCODONE HCL IR 5 MG TABLET PO PRN ×2 (13:50→21:29)
[2019-03-11 14:49] LABS: ABSOLUTE LYMPHOCYTES (AUTO) 1.1 10^3/uL (0.5-4.7); ABSOLUTE MONOCYTES (AUTO) 0.6 10^3/uL (0.1-1.4); ABSOLUTE NEUT (AUTO) 2.8 10^3/uL (1.7-8.2); BASOPHILS % (AUTO) 0.7 % (0-2); HEMATOCRIT 29.8 % (36.0-47.0); HEMOGLOBIN 9.8 g/dL (12.0-15.5); LYMPHOCYTES % (AUTO) 24.2 % (13-45); MEAN CORPUSCULAR HEMOGLOBIN 29.2 pg (27.0-33.4); MEAN CORPUSCULAR HGB CONC 32.9 g/dL (32.0-36.0); MEAN CORPUSCULAR VOLUME 89 fl (80-97); MONOCYTES % (AUTO) 12.4 % (3-13); PLATELET COUNT 486 10^3/uL (150-450); RED BLOOD COUNT 3.35 10^6/uL (3.72-5.28); RED CELL DISTRIBUTION WIDTH 19.8 % (11.5-14.0); SEGMENTED NEUTROPHILS % (AUTO) 61.7 % (42-78); TOTAL CELLS COUNTED % (AUTO) 100 %; WHITE BLOOD COUNT 4.6 10^3/uL (4.0-10.5)
[2019-03-11 15:28] LABS: ANION GAP 11 (5-19); BLOOD UREA NITROGEN 19 mg/dL (7-20); CALCIUM 8.3 mg/dL (8.4-10.2); CARBON DIOXIDE 27 mmol/L (22-30); CHLORIDE 101 mmol/L (98-107); GLUCOSE 93 mg/dL (75-110); POTASSIUM 3.9 mmol/L (3.6-5.0)
--- NOTE | 2019-03-11 16:45 | Progress Note ---
Provider Note Provider Note: CARDIOLOGY PROGRESS NOTE by Dr. Griselda Martin on 03/11/2019. Subjective: The patient denies any chest pain or discomfort. There is no shortness of breath. There is no leg edema. There is no PND orthopnea. There is no recurrence of atrial fibrillation. There is no ventricle arrhythmia seen on the monitor. There is no TIA CVA symptoms. There is no bleeding on Eliquis. There is no firing of the patient's AICD. PHYSICAL EXAMINATION: The patient is mildly obese. In no acute distress. She is well-groomed. Selected Entries 03/11/19 11:01 Temperature 98.4 F Temperature Oral Source Pulse Rate 62 Respiratory 16 Rate Blood Pressure 101/60 Blood Pressure 73 Mean BP Location Right Arm BP Position Sitting O2 Sat by Pulse 97 Oximetry Oxygen Flow 3.00 Rate Oxygen Delivery Nasal Cannula Method HEAD: Is atraumatic normocephalic. EYES: Pupils are equal round regular reactive to light. HEENT is negative. SKIN: There is no skin rashes or skin lesions. There is no particular ecchymosis. NECK: Is supple. There is mild JVD present. Carotids are equal there is no bruits. There is no lymphadenopathy. There is no goiter. There is no accessory muscle respiration use. Trachea central. LUNGS: At present the lungs are fairly clear to ausculta tion, without any rhonchi rales or wheezing. There is diminished air entry. On percussion there is hyperresonance. On palpation there is no chest wall tenderness. HEART: S1-S2 is heard. There is no S3 gallop. There is no S4 gallop. There is systolic murmur mitral regurgitation tricuspid regurgitation present. There is no aortic stenosis murmur. There is no aortic insufficiency murmur. There is no rub. ABDOMEN: Is obese. Nontender. There is no hepatosplenomegaly. Bowel sounds are well heard. There is no rebound guarding or rigidity. EXTREMITIES: Femorals are deep. Femorals are diminished. There is no femoral bruits. There is decreased leg pulses. There is mild pedal edema. 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 PSYCHIATRIC: The patient judgment insight are intact. She does not appear to be agitated or anxious. Labs- All tests 24 hr 03/11/19 03/11/19 14:35 14:35 WBC 4.6 RBC 3.35 L Hgb 9.8 L Hct 29.8 L MCV 89 MCH 29.2 MCHC 32.9 RDW 19.8 H Plt Count 486 H Lymph % (Auto) 24.2 [place] % (Auto) 12.4 Eos % (Auto) 1.0 Baso % (Auto) 0.7 Absolute Neuts (auto) 2.8 Absolute Lymphs (auto) 1.1 Absolute Monos (auto) 0.6 Absolute Eos (auto) 0.0 Absolute Basos (auto) 0.0 Seg Neutrophils % 61.7 Sodium 138.9 Potassium 3.9 Chloride 101 Carbon Dioxide 27 Anion Gap 11 BUN 19 Creatinine 1.92 H Est GFR ( Amer) 34 L Est GFR (MDRD) Non-Af 28 L Glucose 93 Calcium 8.3 L Chest X-Ray 02/08/19 00:00 IMPRESSION: Slight advancement of endotracheal tube. Otherwise no change. Chest X-Ray 02/08/19 00:00 IMPRESSION: NO PNEUMOTHORAX FOLLOWING CENTRAL LINE PLACEMENT. OTHERWISE NO CHANGE. Chest X-Ray 02/08/19 03:15 IMPRESSION: Cardiomegaly. Endotracheal and enteric tubes are in place. Postsurgical changes of the mediastinum. Airspace opacities right lung base. copyright 2010 [employer]- All Rights Reserved Chest CT 02/10/19 00:00 IMPRESSION: No pneumothorax. No pleural effusions. Bibasilar consolidation in both lower lobes. Slightly increased interstitial thickening, basilar predominance. Scattered pulmonary cysts and ground-glass opacities are again noted. Tubes and lines in expected positions. Chest X-Ray 02/12/19 00:00 IMPRESSION: 1. Bilateral perihilar airspace consolidation which may be due to edema, atelectasis or pneumonia. 2. Marked cardiomegaly. 3. Remote postsurgical changes of the mediastinum. 4. Life support lines and tubes as described above. Chest X-Ray 02/13/19 06:00 IMPRESSION: STABLE APPEARANCE OF THE CHEST. SUPPORT DEVICES UNCHANGED. Chest X-Ray 02/14/19 06:00 IMPRESSION: Mildly worsened bibasilar predominant opacities, likely edema although infection not excluded. Stable support lines and tubes as above. Chest X-Ray 02/15/19 03:06 IMPRESSION: Diffuse persistent but improving interstitial and alveolar opacities throughout both lungs. Stable cardiomegaly. Chest X-Ray 02/16/19 06:00 IMPRESSION: Unchanged radiographic appearance of the chest. KUB X-Ray 02/16/19 15:49 IMPRESSION: The tip and side hole of the enteric tube project within the gastric lumen. Chest X-Ray 02/17/19 06:00 IMPRESSION: Findings most consistent with congestive failure an asymmetric pulmonary edema. Slightly improved. SUPPORT DEVICE(S) IN EXPECTED LOCATIONS. Chest X-Ray 02/18/19 00:00 IMPRESSION: New left IJ line with the tip overlying the proximal SVC. Consider advancement 3-4 cm. KUB X-Ray 02/18/19 00:00 IMPRESSION: NG tube tip in the fundus of the stomach. Chest X-Ray 02/19/19 06:00 IMPRESSION: Tubes and lines in good positioning. Stable marked cardiomegaly and mild residual alveolar and interstitial infiltrates Chest X-Ray 02/20/19 00:00 IMPRESSION: STABLE APPEARANCE OF THE CHEST. SUPPORT DEVICES UNCHANGED. Chest X-Ray 02/25/19 00:00 IMPRESSION: Cardiomegaly with diffuse interstitial edema copyright 2011 [employer]- All Rights Reserved Chest X-Ray 02/26/19 13:22 IMPRESSION: Tubes and catheters as described. Cardiomegaly with pulmonary edema that shows slight improvement. KUB X-Ray 02/26/19 13:25 IMPRESSION: NG tube tip overlies body of stomach, side port near the GE junction above the diaphragm. Chest X-Ray 03/03/19 00:00 IMPRESSION: Interval extubation with improvement in bilateral edema and/or pneumonia. Head CT 03/05/19 00:00 IMPRESSION: No acute intracranial pathology. EVIDENCE OF ACUTE STROKE: NO. KUB X-Ray 03/05/19 00:00 IMPRESSION: Constipation. Guidance Ultrasound 03/07/19 00:00 IMPRESSION: Successful placement of a tunneled non-cuffed 5 Lebanese dual lumen PICC via the right internal jugular vein utilizing fluoroscopic and sonographic guidance. Central Venous Line 03/07/19 09:30 IMPRESSION: Successful placement of a tunneled non-cuffed 5 Lebanese dual lumen PICC via the right internal jugular vein utilizing fluoroscopic and sonographic guidance. Guidance Fluoroscopy 03/07/19 09:30 IMPRESSION: Successful placement of a tunneled non-cuffed 5 Lebanese dual lumen PICC via the right internal jugular vein utilizing fluoroscopic and sonographic guidance. IMPRESSION/RECOMMENDATION: 1. Acute on chronic respiratory failure. This is much improved. The patient has been extubated. At present seems to have resolved 2. Hypotension: This resolved with adjustment of the patient's medication. 3. Acute on chronic systolic heart failure. Patient with LV ejection fraction of 25%. Continue beta-blockers and Entresto. Continue diuretics. 4. Acute exacerbation COPD: Continue bronchodilators and ventilatory support. 5. MRSA pneumonia: Continue antibiotics. 6. Amiodarone has been discontinued due to recurrence of pulmonary toxicity. 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 If need to start the patient on antiarrhythmic, would start the patient on sotalol at a very low dose in view of the compromised renal function. Would avoid amiodarone at all costs. 7. Acute on chronic kidney disease: Watch renal function as we implement aggressive diuresis. At present patient has chronic kidney disease stage III with a GFR of 43 mL per per minute. 8. Cardiomyopathy with severely reduced LV ejection fraction. Her medications adjusted. Her beta-rip has been decreased to Toprol 25 mg XL once daily since she is taking by mouth. Entresto has been decreased to 49/51.. Will decrease the patient's isosorbide mononitrate from 60 mg to 30 mg p.o. daily. 9. Paroxysmal atrial fibrillation: Continue beta-rip. The patient Eliquis had to be stopped due to patient's anemia and also prior occult positive bloo blood in the stools. The patient later will be restarted on Eliquis. 10. History of ventricular tachycardia, The patient has an AICD placed. If there is recurrence of ventricular tachycardia or major ventricular ectopic activity then would start the patient on small dose of sotalol. Would avoid amiodarone. 11. Hypertension: Blood pressure well controlled, on current medications. 12. Coronary artery disease: History of [place] and history of coronary bypass graft surgery. No evidence of acute coronary syndrome/non-ST ST elevation OK this admission. 13. Obstructive sleep apnea. Note patient has been noncompliant with CPAP. Most likely has significant pulmonary hypertension. 14. AICD placement: Note the patient's basal rate is around 60 bpm. If the patient's heart failure continues then would recommend increasing the basal heart rate to 80 bpm to help combat the heart failure along with diuretics. 15. MRSA bacteremia: Continue antibiotics. Repeat blood cultures are far negative for growth of MRSA. Patient's prognosis is improved now.. Medications reviewed. Medical regimen discussed with the regional operations director as well as medical management. In view of the n eed to adjust medications, medical decision making is of moderate complexity. 40 minutes spent on the patient more than 50% of time spent in direct patient care. Cardiac status is stable. Will sign off. Will follow the patient in the office. Discussed with Dr. Pena, the current attending physician on the case.
--- NOTE | 2019-03-11 16:56 | PDOC PROGRESS REPORT ---
Subjective Progress Note for:: 03/11/19 Subjective:: This is a 48-year-old female who has a long hospital course and was on mechanical ventilation for CAP-MRSA complicated by development of ARDS requiring mechanical ventilation, acute exacerbation of her systolic CHF, acute on chronic renal failure, MRSA bacteremia and generalized debility. Patient has shown gradual clinical improvement. Upon encounter, she is saturating well on 3 L via nasal cannula. She says her shortness of breath continue to slowly but gradually improved. Denies chest pain. Her bacteremia has cleared. ID has recommended completing a total of 6 weeks of antibiotics from clearance (03/05/19) with end date of 04/16/19. Reason For Visit: TUNNEL PICC/COPD EXACERBATION,CHF,RESPIRATORY Physical Exam Vital Signs: Temp Pulse Resp BP Pulse Ox 99.0 F 66 20 98/52 L 92 03/11/19 15:49 03/11/19 15:49 03/11/19 15:49 03/11/19 16:19 03/11/19 15:49 Intake & Output 03/10/19 03/11/19 03/12/19 06:59 06:59 06:59 Intake Total 564 1886 480 Output Total 1 600 Balance 563 1886 -120 Weight 183 lb 3.266 oz 183 lb 3.266 oz General appearance: PRESENT: no acute distress, well-developed, well-nourished Head exam: PRESENT: atraumatic, normocephalic Eye exam: PRESENT: conjunctiva pink, EOMI, PERRLA. ABSENT: scleral icterus Ear exam: PRESENT: normal external ear exam Mouth exam: PRESENT: moist, tongue midline Neck exam: ABSENT: carotid bruit, JVD, lymphadenopathy, thyromegaly Respiratory exam: PRESENT: rhonchi. ABSENT: rales, wheezes Cardiovascular exam: ABSENT: diastolic murmur, rubs GI/Abdominal exam: PRESENT: normal bowel sounds, soft. ABSENT: distended, guarding, mass, organolmegaly, rebound, tenderness Rectal exam: PRESENT: deferred Neurological exam: PRESENT: alert, awake, oriented to person, oriented to place, oriented to time, oriented to situation, CN II-XII grossly intact. ABSENT: motor sensory deficit Results Laboratory Results: 03/11/19 14:35 03/11/19 14:35 03/11/19 03/11/19 14:35 14:35 WBC 4.6 RBC 3.35 L Hgb 9.8 L Hct 29.8 L MCV 89 MCH 29.2 MCHC 32.9 RDW 19.8 H Plt Count 486 H Seg Neutrophils % 61.7 Sodium 138.9 Potassium 3.9 Chloride 101 Carbon Dioxide 27 Anion Gap 11 BUN 19 Creatinine 1.92 H Est GFR ( Amer) 34 L Glucose 93 Calcium 8.3 L 02/08/19 02/08/19 02/08/19 04:06 04:06 05:30 Creatine Kinase Cancelled 33 CK-MB (CK-2) Cancelled Troponin I Cancelled NT-Pro-B Natriuret Pep Cancelled 02/08/19 02/11/19 02/13/19 05:45 03:18 01:22 Creatine Kinase CK-MB (CK-2) < 0.22 Troponin I 0.043 NT-Pro-B Natriuret Pep 7610 H 1970 H 78397 H 03/05/19 03/07/19 03/08/19 12:52 05:50 06:08 Creatine Kinase 39 24 L 23 L CK-MB (CK-2) Troponin I NT-Pro-B Natriuret Pep Impressions: Chest CT 02/10/19 00:00 IMPRESSION: No pneumothorax. No pleural effusions. Bibasilar consolidation in both lower lobes. Slightly increased interstitial thickening, basilar predominance. Scattered pulmonary cysts and ground-glass opacities are again noted. Tubes and lines in expected positions. Chest X-Ray 03/03/19 00:00 IMPRESSION: Interval extubation with improvement in bilateral edema and/or pneumonia. Head CT 03/05/19 00:00 IMPRESSION: No acute intracranial pathology. EVIDENCE OF ACUTE STROKE: NO. KUB X-Ray 03/05/19 00:00 IMPRESSION: Constipation. Guidance Ultrasound 03/07/19 00:00 IMPRESSION: Successful placement of a tunneled non-cuffed 5 Mongolian dual lumen PICC via the right internal jugular vein utilizing fluoroscopic and sonographic guidance. Central Venous Line 03/07/19 09:30 IMPRESSION: Successful placement of a tunneled non-cuffed 5 Mongolian dual lumen PICC via the right internal jugular vein utilizing fluoroscopic and sonographic guidance. Guidance Fluoroscopy 03/07/19 09:30 IMPRESSION: Successful placement of a tunneled non-cuffed 5 Mongolian dual lumen PICC via the right internal jugular vein utilizing fluoroscopic and sonographic guidance. Assessment and Plan - Diagnosis (1) Acute on chronic respiratory failure with hypoxia Is this a current diagnosis for this admission?: Yes Plan: Improving. Multifactorial from CAP and ARDS requiring mechanical ventilation, acute exacerbation of her systolic CHF, acute on chronic renal failure (2) Acute on chronic renal failure Is this a current diagnosis for this admission?: Yes Plan: Creatinine at 1.9. Repeat BMP today. (3) Acute on chronic systolic (congestive) heart failure Is this a current diagnosis for this admission?: Yes Plan: Continue Lasix and Entresto. (4) MRSA bacteremia Is this a current diagnosis for this admission?: Yes Plan: 03.07.2019: Patient now has a tunneled PIC catheter for long-term antibiotic use. She will be on daptomycin as noted below with rifampin. She should be on a total of at least 6 weeks. The first initiation of any MRSA related antibiotics began approximately 02/11/2019 03.06.2019: Plan for tunneled picc catheter for long-term antibiotic. Recent cultures negative. Placed on Meropenem for coverage of possible tracheal colonization. Total of 7 days. 03.05.2019: Spoke with infectious disease. Their recommendation based on the patient's renal failure is to start daptomycin at 8-10 mg/kg daily in addition to rifampin 600 mg daily.. Given the current recommendations a higher dose would seem to improve result in less resistance. Have ordered a baseline CK and have discontinued atorvastatin and concern for synergistic rhabdomlysis. The RI J has been in place > one week and interventional radiology will be placing a tunneled catheter on Tuesday to allow the Eliquis effect to wear off. (5) Pneumonia Qualifiers: Pneumonia type: due to methicillin-resistant Staphylococcus aureus (MRSA) Is this a current diagnosis for this admission?: Yes Plan: Tracheal aspirate grew MRSA. On antibiotics. (6) Atrial fibrillation Qualifiers: Atrial fibrillation type: longstanding persistent Qualified Code(s): I48.11 - Longstanding persistent atrial fibrillation Is this a current diagnosis for this admission?: Yes Plan: Paroxysmal, not persistent, currently quiescent. Restarted on Eliquis by cardiology. (7) COPD (chronic obstructive pulmonary disease) Qualifiers: COPD type: unspecified COPD Qualified Code(s): J44.9 - Chronic obstructive pulmonary disease, unspecified Is this a current diagnosis for this admission?: Yes - Plan Summary Summary: Patient was downgraded from ICU on 03/08/19 after long stay for Community Acquired Pneumonia (MRSA) resulting in ARDS requiring intubation, acute exacerbation of her Systolic CHF, acute exacerbation of her chronic kidney failure, MRSA bacteremia, and generalized debility. Infectious disease was consulted and recommend IV antibiotics x 6weeks from date of clearance (03/05/19) with end date of 04/16/19. At that time, repeat cultures should be obtained. If she remains positive, she will then require consultation with CT surgery for removal of her AICD. Due to history of substance abuse, she is not a good candidate for outpatient infusion. Patient remains significantly debilitated; will consult PT/OT. Cardiology has been consulted. Dr. Ragsdale recommends resumption of renally dosed Eliquis. Continue pulmonary toilet, as needed nebulizer treatments, and ambulation for recovery of her pneumonia. She does utilize home O2. 03/09/2019- The patient is now on the medical floor. She is quite comfortable. Sepsis is resolved however infectious disease consultation suggest a total of 6 weeks IV antibiotics from the last negative blood culture for her MRSA bacteremia secondary to her MRSA pneumonia. Her pneumonitis and tracheitis from mechanical ventilation are resolved as well. Cardiology continues to follow for her ischemic cardiology with AICD. Her blood pressure still borderline low on her current regimen. This may need to be adjusted. Will discuss with cardiology. A. fib is controlled. She is back to her baseline oxygen requirements. She appears to be back her close to her baseline chronic renal failure. We will continue current treatment plan as outlined 03/10/2019-patient is doing well. Plan course is for 6 weeks IV daptomycin. Stable from a cardiology standpoint. BUN and creatinine are slightly higher so I have decreased her furosemide to 60 mg twice daily will continue to monitor I's and O's, telemetry and vital signs - Time Time Spent with patient: 25-34 minutes
[2019-03-11] MEDS: SENNOSIDES/DOCUSATE 8.6-50 MG 1 EACH TABLET PO SCH (21:28)
[2019-03-11] MEDS: MELATONIN 5 MG TABLET PO SCH (21:29)
[2019-03-12] MEDS: FUROSEMIDE 80 MG TABLET PO SCH ×2 (09:27→17:17)
[2019-03-12] MEDS: METOPROLOL SUCCINATE 25 MG TAB.SR.24H PO SCH ×2 (09:27→21:22)
[2019-03-12] MEDS: POTASSIUM CHLORIDE 10 MEQ TABLET.ER PO SCH (09:27)
[2019-03-12] MEDS: ASPIRIN 81 MG TABLET, ENT COATED PO SCH (09:29)
[2019-03-12] MEDS: PAROXETINE HCL 20 MG TABLET PO SCH (09:29)
[2019-03-12] MEDS: ISOSORBIDE MONONITRATE 30 MG TAB.ER.24H PO SCH (09:29)
[2019-03-12] MEDS: BUSPIRONE HCL 10 MG TABLET PO SCH ×2 (09:29→17:18)
[2019-03-12] MEDS: SACUBITRIL/VALSARTAN 97 MG/103 MG TABLET PO SCH ×2 (09:29→21:22)
[2019-03-12] MEDS: APIXABAN 2.5 MG TABLET PO SCH ×2 (09:29→17:18)
[2019-03-12] MEDS: NORMAL SALINE 10 ML SDV (SCHEDULED) IV SCH ×2 (09:31→21:27)
--- NOTE | 2019-03-12 15:03 | PDOC PROGRESS REPORT ---
Subjective Progress Note for:: 03/12/19 Subjective:: This is a 48-year-old female who has a long hospital course and was on mechanical ventilation for CAP-MRSA complicated by development of ARDS requiring mechanical ventilation, acute exacerbation of her systolic CHF, acute on chronic renal failure, MRSA bacteremia and generalized debility. Patient has shown gradual clinical improvement. 03/11: Upon encounter, she is saturating well on 3 L via nasal cannula. She says her shortness of breath continue to slowly but gradually improved. Denies chest pain. Her bacteremia has cleared. ID has recommended completing a total of 6 weeks of antibiotics from clearance (03/05/19) with end date of 04/16/19. 03/12: No acute event overnight. She denies acute complaints. We will have PT reevaluate and work with her again today. Reason For Visit: TUNNEL PICC/COPD EXACERBATION,CHF,RESPIRATORY Physical Exam Vital Signs: Temp Pulse Resp BP Pulse Ox 97.5 F 60 21 H 111/62 97 03/12/19 08:01 03/12/19 08:01 03/12/19 08:01 03/12/19 08:01 03/12/19 08:01 Intake & Output 03/11/19 03/12/19 03/13/19 06:59 06:59 06:59 Intake Total 1886 1230 694 Output Total 1150 Balance 1886 80 694 Weight 183 lb 3.266 oz 187 lb 13.341 oz General appearance: PRESENT: no acute distress, well-developed, well-nourished Head exam: PRESENT: atraumatic, normocephalic Eye exam: PRESENT: conjunctiva pink, EOMI, PERRLA. ABSENT: scleral icterus Ear exam: PRESENT: normal external ear exam Mouth exam: PRESENT: moist, tongue midline Neck exam: ABSENT: carotid bruit, JVD, lymphadenopathy, thyromegaly Respiratory exam: PRESENT: rhonchi. ABSENT: rales, wheezes Cardiovascular exam: PRESENT: RRR. ABSENT: diastolic murmur, rubs Pulses: PRESENT: normal dorsalis pedis pul GI/Abdominal exam: PRESENT: normal bowel sounds, soft. ABSENT: distended, guarding, mass, organolmegaly, rebound, tenderness Rectal exam: PRESENT: deferred Neurological exam: PRESENT: alert, awake, oriented to person, oriented to place, oriented to time, oriented to situation, CN II-XII grossly intact. ABSENT: motor sensory deficit Results Laboratory Results: 03/11/19 14:35 03/11/19 14:35 03/11/19 14:35 Sodium 138.9 Potassium 3.9 Chloride 101 Carbon Dioxide 27 Anion Gap 11 BUN 19 Creatinine 1.92 H Est GFR ( Amer) 34 L Glucose 93 Calcium 8.3 L 02/08/19 02/08/19 02/08/19 04:06 04:06 05:30 Creatine Kinase Cancelled 33 CK-MB (CK-2) Cancelled Troponin I Cancelled NT-Pro-B Natriuret Pep Cancelled 02/08/19 02/11/19 02/13/19 05:45 03:18 01:22 Creatine Kinase CK-MB (CK-2) < 0.22 Troponin I 0.043 NT-Pro-B Natriuret Pep 7610 H 1970 H 62888 H 03/05/19 03/07/19 03/08/19 12:52 05:50 06:08 Creatine Kinase 39 24 L 23 L CK-MB (CK-2) Troponin I NT-Pro-B Natriuret Pep Impressions: Chest CT 02/10/19 00:00 IMPRESSION: No pneumothorax. No pleural effusions. Bibasilar consolidation in both lower lobes. Slightly increased interstitial thickening, basilar predominance. Scattered pulmonary cysts and ground-glass opacities are again noted. Tubes and lines in expected positions. Chest X-Ray 03/03/19 00:00 IMPRESSION: Interval extubation with improvement in bilateral edema and/or pneumonia. Head CT 03/05/19 00:00 IMPRESSION: No acute intracranial pathology. EVIDENCE OF ACUTE STROKE: NO. KUB X-Ray 03/05/19 00:00 IMPRESSION: Constipation. Guidance Ultrasound 03/07/19 00:00 IMPRESSION: Successful placement of a tunneled non-cuffed 5 [place] dual lumen PICC via the right internal jugular vein utilizing fluoroscopic and sonographic guidance. Central Venous Line 03/07/19 09:30 IMPRESSION: Successful placement of a tunneled non-cuffed 5 [place] dual lumen PICC via the right internal jugular vein utilizing fluoroscopic and sonographic guidance. Guidance Fluoroscopy 03/07/19 09:30 IMPRESSION: Successful placement of a tunneled non-cuffed 5 [place] dual lumen PICC via the right internal jugular vein utilizing fluoroscopic and sonographic guidance. Assessment and Plan - Diagnosis (1) Acute on chronic respiratory failure with hypoxia Is this a current diagnosis for this admission?: Yes Plan: Improving. Multifactorial from CAP and ARDS requiring mechanical ventilation, acute exacerbation of her systolic CHF, acute on chronic renal failure (2) Acute on chronic renal failure Is this a current diagnosis for this admission?: Yes Plan: Creatinine at 1.9. 03/12: Reassess BMP tomorrow. (3) Acute on chronic systolic (congestive) heart failure Is this a current diagnosis for this admission?: Yes Plan: Continue Lasix and Entresto. (4) MRSA bacteremia Is this a current diagnosis for this admission?: Yes Plan: 03.07.2019: Patient now has a tunneled PIC catheter for long-term antibiotic use. She will be on daptomycin as noted below with rifampin. She should be on a total of at least 6 weeks. The first initiation of any MRSA related antibiotics began approximately 02/11/2019 03.06.2019: Plan for tunneled picc catheter for long-term antibiotic. Recent cultures negative. Placed on Meropenem for coverage of possible tracheal colonization. Total of 7 days. 03.05.2019: Spoke with infectious disease. Their recommendation based on the patient's renal failure is to start daptomycin at 8-10 mg/kg daily in addition to rifampin 600 mg daily.. Given the current recommendations a higher dose would seem to improve result in less resistance. Have ordered a baseline CK and have discontinued atorvastatin and concern for synergistic rhabdomlysis. The RIJ has been in place > one week and interventional radiology will be placing a tunneled catheter on Tuesday to allow the Eliquis effect to wear off. (5) Pneumonia Qualifiers: Pneumonia type: due to methicillin-resistant Staphylococcus aureus (MRSA) Is this a current diagnosis for this admission?: Yes Plan: Tracheal aspirate grew MRSA. On antibiotics. (6) Atrial fibrillation Qualifiers: Atrial fibrillation type: longstanding persistent Qualified Code(s): I48.11 - Longstanding persistent atrial fibrillation Is this a current diagnosis for this admission?: Yes Plan: Paroxysmal, not persistent, currently quiescent. Restarted on Eliquis by cardiology. (7) COPD (chronic obstructive pulmonary disease) Qualifiers: COPD type: unspecified COPD Qualified Code(s): J44.9 - Chronic obstructive pulmonary disease, unspecified Is this a current diagnosis for this admission?: Yes - Plan Summary Summary: Patient was downgraded from ICU on 03/08/19 after long stay for Community Acquired Pneumonia (MRSA) resulting in ARDS requiring intubation, acute exacerbation of her Systolic CHF, acute exacerbation of her chronic kidney failure, MRSA bacteremia, and generalized debility. Infectious disease was consulted and recommend IV antibiotics x 6weeks from date of clearance (03/05/19) with end date of 04/16/19. At that time, repeat cultures should be obtained. If she remains positive, she will then require consultation with CT surgery for removal of her AICD. Due to history of substance abuse, she is not a good candidate for outpatient infusion. Patient remains significantly debilitated; will consult PT/OT. Cardiology has been consulted. Dr. Ragsdale recommends resumption of renally dosed Eliquis. Continue pulmonary toilet, as needed nebulizer treatments, and ambulation for recovery of her pneumonia. She does utilize home O2. 03/09/2019- The patient is now on the medical floor. She is quite comfortable. Sepsis is resolved however infectious disease consultation suggest a total of 6 weeks IV antibiotics from the last negative blood culture for her MRSA bacteremia secondary to her MRSA pneumonia. Her pneumonitis and tracheitis from mechanical ventilation are resolved as well. Cardiology continues to follow for her ischemic cardiology with AICD. Her blood pressure still borderline low on her current regimen. This may need to be adjusted. Will discuss with cardiology. A. fib is controlled. She is back to her baseline oxygen requirements. She appears to be back her close to her baseline chronic renal failure. We will continue current treatment plan as outlined 03/10/2019-patient is doing well. Plan course is for 6 weeks IV daptomycin. Stable from a cardiology standpoint. BUN and creatinine are slightly higher so I have decreased her furosemide to 60 mg twice daily will continue to monitor I's and O's, telemetry and vital signs - Time Time Spent with patient: 25-34 minutes
--- NOTE | 2019-03-12 17:13 | RADIOLOGY REPORT (SQ) ---
EXAM DESCRIPTION: CHEST SINGLE VIEW COMPLETED DATE/TIME: 03/12/2019 5:00 pm REASON FOR STUDY: reassess congestion COMPARISON: 03/03/2019 EXAM PARAMETERS: NUMBER OF VIEWS: One view. TECHNIQUE: Single frontal radiographic view of the chest acquired. RADIATION DOSE: NA LIMITATIONS: None. FINDINGS: LUNGS AND PLEURA: Persistent bilateral airspace disease most marked in the right base. No significant interval change from prior study. MEDIASTINUM AND HILAR STRUCTURES: No masses. Contour normal. HEART AND VASCULAR STRUCTURES: Stable in appearance. BONES: No acute findings. HARDWARE: Right-sided central line has been replaced. OTHER: No other significant finding. IMPRESSION: Persistent infiltrate most marked in the right lower lobe. No significant change from p rior study. TECHNICAL DOCUMENTATION: JOB ID: [id number] [employer]- All Rights Reserved Reading location - IP/workstation name: [email or web address]
[2019-03-12] MEDS: OXYCODONE HCL IR 5 MG TABLET PO PRN ×2 (17:20→21:26)
[2019-03-12] MEDS: MELATONIN 5 MG TABLET PO SCH (21:26)
[2019-03-12] MEDS: SENNOSIDES/DOCUSATE 8.6-50 MG 1 EACH TABLET PO SCH (21:27)
[2019-03-13 05:14] LABS: ABSOLUTE MONOCYTES (AUTO) 0.6 10^3/uL (0.1-1.4); ABSOLUTE NEUT (AUTO) 2.6 10^3/uL (1.7-8.2); BASOPHILS % (AUTO) 0.9 % (0-2); EOSINOPHILS % (AUTO) 0.4 % (0-6); HEMATOCRIT 26.7 % (36.0-47.0); HEMOGLOBIN 8.9 g/dL (12.0-15.5); LYMPHOCYTES % (AUTO) 22.8 % (13-45); MEAN CORPUSCULAR HEMOGLOBIN 29.9 pg (27.0-33.4); MEAN CORPUSCULAR HGB CONC 33.4 g/dL (32.0-36.0); MEAN CORPUSCULAR VOLUME 90 fl (80-97); MONOCYTES % (AUTO) 14.1 % (3-13); PLATELET COUNT 379 10^3/uL (150-450); RED BLOOD COUNT 2.99 10^6/uL (3.72-5.28); RED CELL DISTRIBUTION WIDTH 19.5 % (11.5-14.0); SEGMENTED NEUTROPHILS % (AUTO) 61.8 % (42-78); TOTAL CELLS COUNTED % (AUTO) 100 %; WHITE BLOOD COUNT 4.2 10^3/uL (4.0-10.5)
[2019-03-13 05:36] LABS: ANION GAP 7 (5-19); BLOOD UREA NITROGEN 19 mg/dL (7-20); CALCIUM 8.7 mg/dL (8.4-10.2); CARBON DIOXIDE 31 mmol/L (22-30); CHLORIDE 100 mmol/L (98-107); GLUCOSE 83 mg/dL (75-110); POTASSIUM 4.1 mmol/L (3.6-5.0)
[2019-03-13] MEDS: ISOSORBIDE MONONITRATE 30 MG TAB.ER.24H PO SCH (09:42)
[2019-03-13] MEDS: FUROSEMIDE 80 MG TABLET PO SCH ×2 (09:42→17:32)
[2019-03-13] MEDS: BUSPIRONE HCL 10 MG TABLET PO SCH ×2 (09:42→17:33)
[2019-03-13] MEDS: APIXABAN 2.5 MG TABLET PO SCH ×2 (09:42→17:32)
[2019-03-13] MEDS: ASPIRIN 81 MG TABLET, ENT COATED PO SCH (09:42)
[2019-03-13] MEDS: POTASSIUM CHLORIDE 10 MEQ TABLET.ER PO SCH (09:43)
[2019-03-13] MEDS: SACUBITRIL/VALSARTAN 97 MG/103 MG TABLET PO SCH ×2 (09:43→21:19)
[2019-03-13] MEDS: METOPROLOL SUCCINATE 25 MG TAB.SR.24H PO SCH ×2 (09:43→21:19)
[2019-03-13] MEDS: NORMAL SALINE 10 ML SDV (SCHEDULED) IV SCH ×2 (09:44→21:24)
[2019-03-13] MEDS: PAROXETINE HCL 20 MG TABLET PO SCH (09:44)
[2019-03-13] MEDS: NORMAL SALINE INJ/PF 0.9% 10 ML SDV IV PRN ×3 (09:44→17:34)
[2019-03-13] MEDS: OXYCODONE HCL IR 5 MG TABLET PO PRN ×2 (09:49→17:32)
[2019-03-13] MEDS: GABAPENTIN 100 MG CAPSULE PO PRN (11:26)
[2019-03-13] MEDS: FAMOTIDINE INJ/PF 20 MG/2 ML SDV IV SCH ×2 (12:07→21:25)
[2019-03-13] MEDS: DAPTOMYCIN 750 MG in NORMAL SALINE 50 ML IV SCH (12:08)
--- NOTE | 2019-03-13 16:41 | PDOC PROGRESS REPORT ---
Subjective Progress Note for:: 03/13/19 Subjective:: This is a 48-year-old female who has a long hospital course and was on mechanical ventilation for CAP-MRSA complicated by development of ARDS requiring mechanical ventilation, acute exacerbation of her systolic CHF, acute on chronic renal failure, MRSA bacteremia and generalized debility. Patient has shown gradual clinical improvement. 03/11: Upon encounter, she is saturating well on 3 L via nasal cannula. She says her shortness of breath continue to slowly but gradually improved. Denies chest pain. Her bacteremia has cleared. ID has recommended completing a total of 6 weeks of antibiotics from clearance (03/05/19) with end date of 04/16/19. 03/12: She denies acute complaints. We will have PT reevaluate and work with her again today. 03/13: No acute event overnight. She continues to show gradual improvement with physical therapy. Denies chest pain or shortness of breath. She does complain of generalized muscle aches today. Will recheck a CK and urine myoglobin as she is on daptomycin. Reason For Visit: TUNNEL PICC/COPD EXACERBATION,CHF,RESPIRATORY Physical Exam Vital Signs: Temp Pulse Resp BP Pulse Ox 99.2 F 78 18 126/71 H 96 03/13/19 15:33 03/13/19 15:33 03/13/19 15:33 03/13/19 15:33 03/13/19 15:33 Intake & Output 03/12/19 03/13/19 03/14/19 06:59 06:59 06:59 Intake Total 1230 1436 650 Output Total 1150 0 Balance 80 1436 650 Weight 187 lb 13.341 oz 188 lb 4.396 oz General appearance: PRESENT: no acute distress, well-developed, well-nourished Head exam: PRESENT: atraumatic, normocephalic Eye exam: PRESENT: conjunctiva pink, EOMI, PERRLA. ABSENT: scleral icterus Ear exam: PRESENT: normal external ear exam Mouth exam: PRESENT: moist, tongue midline Neck exam: ABSENT: carotid bruit, JVD, lymphadenopathy, thyromegaly Respiratory exam: PRESENT: rhonchi. ABSENT: rales, wheezes Cardiovascular exam: ABSENT: bradycardia Pulses: PRESENT: normal dorsalis pedis pul GI/Abdominal exam: PRESENT: normal bowel sounds, soft. ABSENT: distended, guarding, mass, organolmegaly, rebound, tenderness Rectal exam: PRESENT: deferred Extremities exam: PRESENT: pedal edema Neurological exam: PRESENT: alert, awake, oriented to person, oriented to place, oriented to time, oriented to situation, CN II-XII grossly intact. ABSENT: motor sensory deficit Results Laboratory Results: 03/13/19 04:45 03/13/19 04:45 03/13/19 03/13/19 04:45 04:45 WBC 4.2 RBC 2.99 L Hgb 8.9 L Hct 26.7 L MCV 90 MCH 29.9 MCHC 33.4 RDW 19.5 H Plt Count 379 Seg Neutrophils % 61.8 Sodium 137.5 Potassium 4.1 Chloride 100 Carbon Dioxide 31 H Anion Gap 7 BUN 19 Creatinine 1.79 H Est GFR ( Amer) 37 L Glucose 83 Calcium 8.7 02/08/19 02/08/19 02/08/19 04:06 04:06 05:30 Creatine Kinase Cancelled 33 CK-MB (CK-2) Cancelled Troponin I Cancelled NT-Pro-B Natriuret Pep Cancelled 02/08/19 02/11/19 02/13/19 05:45 03:18 01:22 Creatine Kinase CK-MB (CK-2) < 0.22 Troponin I 0.043 NT-Pro-B Natriuret Pep 7610 H 1970 H 01146 H 03/05/19 03/07/19 03/08/19 12:52 05:50 06:08 Creatine Kinase 39 24 L 23 L CK-MB (CK-2) Troponin I NT-Pro-B Natriuret Pep Impressions: Chest CT 02/10/19 00:00 IMPRESSION: No pneumothorax. No pleural effusions. Bibasilar consolidation in both lower lobes. Slightly increased interstitial thickening, basilar predominance. Scattered pulmonary cysts and ground-glass opacities are again noted. Tubes and lines in expected positions. Head CT 03/05/19 00:00 IMPRESSION: No acute intracranial pathology. EVIDENCE OF ACUTE STROKE: NO. KUB X-Ray 03/05/19 00:00 IMPRESSION: Constipation. Guidance Ultrasound 03/07/19 00:00 IMPRESSION: Successful placement of a tunneled non-cuffed 5 [place] dual lumen PICC via the right internal jugular vein utilizing fluoroscopic and sonographic guidance. Central Venous Line 03/07/19 09:30 IMPRESSION: Successful placement of a tunneled non-cuffed 5 [place] dual lumen PICC via the right internal jugular vein utilizing fluoroscopic and sonographic guidance. Guidance Fluoroscopy 03/07/19 09:30 IMPRESSION: Successful placement of a tunneled non-cuffed 5 [place] dual lumen PICC via the right internal jugular vein utilizing fluoroscopic and sonographic guidance. Chest X-Ray 03/12/19 15:03 IMPRESSION: Persistent infiltrate most marked in the right lower lobe. No significant change from prior study. Assessment and Plan - Diagnosis (1) Acute on chronic respiratory failure with hypoxia Is this a current diagnosis for this admission?: Yes Plan: Improving. Multifactorial from CAP and ARDS requiring mechanical ventilation, acute exacerbation of her systolic CHF, acute on chronic renal failure (2) Acute on chronic renal failure Is this a current diagnosis for this admission?: Yes Plan: Creatinine at 1.9. 03/12: Reassess BMP tomorrow. 03/13: Crea better at 1.79. (3) Acute on chronic systolic (congestive) heart failure Is this a current diagnosis for this admission?: Yes Plan: Continue Lasix and Entresto. (4) MRSA bacteremia Is this a current diagnosis for this admission?: Yes Plan: 03.07.2019: Patient now has a tunneled PIC catheter for long-term antibiotic use. She will be on daptomycin as noted below with rifampin. She should be on a total of at least 6 weeks. The first initiation of any MRSA related antibiotics began approximately 02/11/2019 03.06.2019: Plan for tunneled picc catheter for long-term antibiotic. Recent cultures negative. Placed on Meropenem for coverage of possible tracheal colonization. Total of 7 days. 03.05.2019: Spoke with infectious disease. Their recommendation based on the patient's renal failure is to start daptomycin at 8-10 mg/kg daily in addition to rifampin 600 mg daily.. Given the current recommendations a higher dose would seem to improve result in less resistance. Have ordered a baseline CK and have discontinued atorvastatin and concern for synergistic rhabdomlysis. The RIJ has been in place > one week and interventional radiology will be placing a tunneled catheter on Tuesday to allow the Eliquis effect to wear off. 03/13: Continue Daptomycin. (5) Pneumonia Qualifiers: Pneumonia type: due to methicillin-resistant Staphylococcus aureus (MRSA) Is this a current diagnosis for this admission?: Yes Plan: Tracheal aspirate grew MRSA. On antibiotics. (6) Atrial fibrillation Qualifiers: Atrial fibrillation type: longstanding persistent Qualified Code(s): I48.11 - Longstanding persistent atrial fibrillation Is this a current diagnosis for this admission?: Yes Plan: Paroxysmal, not persistent, currently quiescent. Restarted on Eliquis by cardiology. (7) COPD (chronic obstructive pulmonary disease) Qualifiers: COPD type: unspecified COPD Qualified Code(s): J44.9 - Chronic obstructive pulmonary disease, unspecified Is this a current diagnosis for this admission?: Yes - Plan Summary Summary: Patient was downgraded from ICU on 03/08/19 after long stay for Community Acquired Pneumonia (MRSA) resulting in ARDS requiring intubation, acute exacerbation of her Systolic CHF, acute exacerbation of her chronic kidney failure, MRSA bacteremia, and generalized debility. Infectious disease was consulted and recommend IV antibiotics x 6weeks from date of clearance (03/05/19) with end date of 04/16/19. At that time, repeat cultures should be obtained. If she remains positive, she will then require consultation with CT surgery for removal of her AICD. Due to history of substance abuse, she is not a good candidate for outpatient infusion. Patient remains significantly debilitated; will consult PT/OT. Cardiology has been consulted. Dr. Ragsdale recommends resumption of renally dosed Eliquis. Continue pulmonary toilet, as needed nebulizer treatments, and ambulation for recovery of her pneumonia. She does utilize home O2. 03/09/2019- The patient is now on the medical floor. She is quite comfortable. Sepsis is resolved however infectious disease consultation suggest a total of 6 weeks IV antibiotics from the last negative blood culture for her MRSA bacteremia secondary to her MRSA pneumonia. Her pneumonitis and tracheitis from mechanical ventilation are resolved as well. Cardiology continues to follow for her ischemic cardiology with AICD. Her blood pressure still borderline low on her current regimen. This may need to be adjusted. Will discuss with cardiology. A. fib is controlled. She is back to her baseline oxygen requirements. She appears to be back her close to her baseline chronic renal failure. We will continue current treatment plan as outlined 03/10/2019-patient is doing well. Plan course is for 6 weeks IV daptomycin. Stable from a cardiology standpoint. BUN and creatinine are slightly higher so I have decreased her furosemide to 60 mg twice daily will continue to monitor I's and O's, telemetry and vital signs - Time Time Spent with patient: 25-34 minutes
[2019-03-13] MEDS: SENNOSIDES/DOCUSATE 8.6-50 MG 1 EACH TABLET PO SCH (21:19)
[2019-03-13] MEDS: MELATONIN 5 MG TABLET PO SCH (21:24)
[2019-03-13] MEDS ORDERED: FAMOTIDINE 20 MG TABLET PO SCH (22:00)
[2019-03-14] MEDS: OXYCODONE HCL IR 5 MG TABLET PO PRN ×2 (10:37→14:24)
[2019-03-14] MEDS: PAROXETINE HCL 20 MG TABLET PO SCH (10:37)
[2019-03-14] MEDS: BUSPIRONE HCL 10 MG TABLET PO SCH ×2 (10:37→18:03)
[2019-03-14] MEDS: APIXABAN 2.5 MG TABLET PO SCH ×2 (10:39→18:06)
[2019-03-14] MEDS: ASPIRIN 81 MG TABLET, ENT COATED PO SCH (10:39)
[2019-03-14] MEDS: DAPTOMYCIN 750 MG in NORMAL SALINE 50 ML IV SCH (10:41)
[2019-03-14] MEDS: NORMAL SALINE 10 ML SDV (SCHEDULED) IV SCH ×2 (10:42→21:52)
[2019-03-14] MEDS: FAMOTIDINE INJ/PF 20 MG/2 ML SDV IV SCH ×2 (10:43→21:50)
[2019-03-14] MEDS: NORMAL SALINE INJ/PF 0.9% 10 ML SDV IV PRN ×2 (10:43→18:19)
[2019-03-14] MEDS: SACUBITRIL/VALSARTAN 97 MG/103 MG TABLET PO SCH ×2 (11:02→21:51)
[2019-03-14] MEDS: ISOSORBIDE MONONITRATE 30 MG TAB.ER.24H PO SCH (11:11)
[2019-03-14] MEDS: METOPROLOL SUCCINATE 25 MG TAB.SR.24H PO SCH ×2 (11:12→21:50)
[2019-03-14] MEDS: POTASSIUM CHLORIDE 10 MEQ TABLET.ER PO SCH (11:12)
[2019-03-14] MEDS: FUROSEMIDE 80 MG TABLET PO SCH ×2 (11:12→18:07)
--- NOTE | 2019-03-14 15:17 | PDOC PROGRESS REPORT ---
Subjective Progress Note for:: 03/14/19 Subjective:: This is a 48-year-old female who has a long hospital course and was on mechanical ventilation for CAP-MRSA complicated by development of ARDS requiring mechanical ventilation, acute exacerbation of her systolic CHF, acute on chronic renal failure, MRSA bacteremia and generalized debility. Patient has shown gradual clinical improvement. 03/11: Upon encounter, she is saturating well on 3 L via nasal cannula. She says her shortness of breath continue to slowly but gradually improved. Denies chest pain. Her bacteremia has cleared. ID has recommended completing a total of 6 weeks of antibiotics from clearance (03/05/19) with end date of 04/16/19. 03/12: She denies acute complaints. We will have PT reevaluate and work with her again today. 03/13: No acute event overnight. She continues to show gradual improvement with physical therapy. Denies chest pain or shortness of breath. She does complain of generalized muscle aches today. Will recheck a CK and urine myoglobin as she is on daptomycin. 03/14: No acute event overnight. She continues to show gradual improvement with ambulation with physical therapy. Reason For Visit: TUNNEL PICC/COPD EXACERBATION,CHF,RESPIRATORY Physical Exam Vital Signs: Temp Pulse Resp BP Pulse Ox 98.4 F 75 16 97/57 L 98 03/14/19 11:32 03/14/19 11:32 03/14/19 11:32 03/14/19 11:32 03/14/19 11:32 Intake & Output 03/13/19 03/14/19 03/15/19 06:59 06:59 06:59 Intake Total 1436 1270 290 Output Total 0 450 Balance 1436 1270 -160 Weight 188 lb 4.396 oz 188 lb 11.451 oz General appearance: PRESENT: no acute distress, well-developed, well-nourished Head exam: PRESENT: atraumatic, normocephalic Eye exam: PRESENT: conjunctiva pink, EOMI, PERRLA. ABSENT: scleral icterus Ear exam: PRESENT: normal external ear exam Mouth exam: PRESENT: moist, tongue midline Neck exam: ABSENT: carotid bruit, JVD, lymphadenopathy, thyromegaly Respiratory exam: PRESENT: rhonchi. ABSENT: rales, wheezes Cardiovascular exam: PRESENT: RRR. ABSENT: bradycardia Pulses: PRESENT: normal dorsalis pedis pul GI/Abdominal exam: PRESENT: normal bowel sounds, soft. ABSENT: distended, guarding, mass, organolmegaly, rebound, tenderness Rectal exam: PRESENT: deferred Neurological exam: PRESENT: alert, awake, oriented to person, oriented to place, oriented to time, oriented to situation, CN II-XII grossly intact. ABSENT: motor sensory deficit Results Laboratory Results: 03/13/19 04:45 03/13/19 04:45 02/08/19 02/08/19 02/08/19 04:06 04:06 05:30 Creatine Kinase Cancelled 33 CK-MB (CK-2) Cancelled Troponin I Cancelled NT-Pro-B Natriuret Pep Cancelled 02/08/19 02/11/19 02/13/19 05:45 03:18 01:22 Creatine Kinase CK-MB (CK-2) < 0.22 Troponin I 0.043 NT-Pro-B Natriuret Pep 7610 H 1970 H 45664 H 03/05/19 03/07/19 03/08/19 12:52 05:50 06:08 Creatine Kinase 39 24 L 23 L CK-MB (CK-2) Troponin I NT-Pro-B Natriuret Pep 03/13/19 17:20 Creatine Kinase 105 CK-MB (CK-2) Troponin I NT-Pro-B Natriuret Pep Impressions: Chest CT 02/10/19 00:00 IMPRESSION: No pneumothorax. No pleural effusions. Bibasilar consolidation in both lower lobes. Slightly increased interstitial thickening, basilar predominance. Scattered pulmonary cysts and ground-glass opacities are again noted. Tubes and lines in expected positions. Head CT 03/05/19 00:00 IMPRESSION: No acute intracranial pathology. EVIDENCE OF ACUTE STROKE: NO. KUB X-Ray 03/05/19 00:00 IMPRESSION: Constipation. Guidance Ultrasound 03/07/19 00:00 IMPRESSION: Successful placement of a tunneled non-cuffed 5 [place] dual lumen PICC via the right internal jugular vein utilizing fluoroscopic and sonographic guidance. Central Venous Line 03/07/19 09:30 IMPRESSION: Successful placement of a tunneled non-cuffed 5 [place] dual lumen PICC via the right internal jugular vein utilizing fluoroscopic and sonographic guidance. Guidance Fluoroscopy 03/07/19 09:30 IMPRESSION: Successful placement of a tunneled non-cuffed 5 [place] dual lumen P ICC via the right internal jugular vein utilizing fluoroscopic and sonographic guidance. Chest X-Ray 03/12/19 15:03 IMPRESSION: Persistent infiltrate most marked in the right lower lobe. No significant change from prior study. Assessment and Plan - Diagnosis (1) Acute on chronic respiratory failure with hypoxia Is this a current diagnosis for this admission?: Yes Plan: Improving. Multifactorial from CAP and ARDS requiring mechanical ventilation, acute exacerbation of her systolic CHF, acute on chronic renal failure (2) MRSA bacteremia Is this a current diagnosis for this admission?: Yes Plan: 03.07.2019: Patient now has a tunneled PIC catheter for long-term antibiotic use. She will be on daptomycin as noted below with rifampin. She should be on a total of at least 6 weeks. The first initiation of any MRSA related antibiotics began approximately 02/11/2019 03.06.2019: Plan for tunneled picc catheter for long-term antibiotic. Recent cultures negative. Placed on Meropenem for coverage of possible tracheal colonization. Total of 7 days. 03.05.2019: Spoke with infectious disease. Their recommendation based on the patient's renal failure is to start daptomycin at 8-10 mg/kg daily in addition to rifampin 600 mg daily.. Given the current recommendations a higher dose would seem to improve result in less resistance. Have ordered a baseline CK and have discontinued atorvastatin and concern for synergistic rhabdomlysis. The RIJ has been in place > one week and interventional radiology will be placing a tunneled catheter on Tuesday to allow the Eliquis effect to wear off. 03/13: Continue Daptomycin. 03/14: Completing IV antibiotics. (3) Acute on chronic renal failure Is this a current diagnosis for this admission?: Yes Plan: Creatinine at 1.9. 03/12: Reassess BMP tomorrow. 03/13: Crea better at 1.79. (4) Acute on chronic systolic (congestive) heart failure Is this a current diagnosis for this admission?: Yes Plan: Continue Lasix and Entresto. (5) Pneumonia Qualifiers: Pneumonia type: due to methicillin-resistant Staphylococcus aureus (MRSA) Is this a current diagnosis for this admission?: Yes Plan: Tracheal aspirate grew MRSA. On antibiotics. (6) Atrial fibrillation Qualifiers: Atrial fibrillation type: longstanding persistent Qualified Code(s): I48.11 - Longstanding persistent atrial fibrillation Is this a current diagnosis for this admission?: Yes Plan: Paroxysmal, not persistent, currently quiescent. Continue Eliquis and metoprolol. (7) COPD (chronic obstructive pulmonary disease) Qualifiers: COPD type: unspecified COPD Qualified Code(s): J44.9 - Chronic obstructive pulmonary disease, unspecified Is this a current diagnosis for this admission?: Yes - Plan Summary Summary: Patient was downgraded from ICU on 03/08/19 after long stay for Community Acquired Pneumonia (MRSA) resulting in ARDS requiring intubation, acute exacerbation of h er Systolic CHF, acute exacerbation of her chronic kidney failure, MRSA bacteremia, and generalized debility. Infectious disease was consulted and recommend IV antibiotics x 6weeks from date of clearance (03/05/19) with end date of 04/16/19. At that time, repeat cultures should be obtained. If she remains positive, she will then require consultation with CT surgery for removal of her AICD. Due to history of substance abuse, she is not a good candidate for outpatient infusion. Patient remains significantly debilitated; will consult PT/OT. Cardiology has been consulted. Dr. Ragsdale recommends resumption of renally dosed Eliquis. Continue pulmonary toilet, as needed nebulizer treatments, and ambulation for recovery of her pneumonia. She does utilize home O2. 03/09/2019- The patient is now on the medical floor. She is quite comfortable. Sepsis is resolved however infectious disease consultation suggest a total of 6 weeks IV antibiotics from the last negative blood culture for her MRSA b acteremia secondary to her MRSA pneumonia. Her pneumonitis and tracheitis from mechanical ventilation are resolved as well. Cardiology continues to follow for her ischemic cardiology with AICD. Her blood pressure still borderline low on her current regimen. This may need to be adjusted. Will discuss with cardiology. A. fib is controlled. She is back to her baseline oxygen requirements. She appears to be back her close to her baseline chronic renal failure. We will continue current treatment plan as outlined 03/10/2019-patient is doing well. Plan course is for 6 weeks IV daptomycin. Stable from a cardiology standpoint. BUN and creatinine are slightly higher so I have decreased her furosemide to 60 mg twice daily will continue to monitor I's and O's, telemetry and vital signs - Time Time Spent with patient: 25-34 minutes
[2019-03-14] MEDS: PROMETHAZINE HCL INJ 25 MG/1 ML VIAL IV PRN (18:06)
[2019-03-14] MEDS: MELATONIN 5 MG TABLET PO SCH (21:50)
[2019-03-14] MEDS: SENNOSIDES/DOCUSATE 8.6-50 MG 1 EACH TABLET PO SCH ×2 (21:50→21:53)
[2019-03-15] MEDS: FUROSEMIDE 80 MG TABLET PO SCH ×2 (09:40→17:11)
[2019-03-15] MEDS: METOPROLOL SUCCINATE 25 MG TAB.SR.24H PO SCH ×2 (09:41→22:30)
[2019-03-15] MEDS: DAPTOMYCIN 750 MG in NORMAL SALINE 50 ML IV SCH (09:41)
[2019-03-15] MEDS: POTASSIUM CHLORIDE 10 MEQ TABLET.ER PO SCH (09:41)
[2019-03-15] MEDS: PAROXETINE HCL 20 MG TABLET PO SCH (09:41)
[2019-03-15] MEDS: APIXABAN 2.5 MG TABLET PO SCH ×2 (09:41→17:11)
[2019-03-15] MEDS: BUSPIRONE HCL 10 MG TABLET PO SCH ×2 (09:41→17:11)
[2019-03-15] MEDS: ASPIRIN 81 MG TABLET, ENT COATED PO SCH (09:41)
[2019-03-15] MEDS: ISOSORBIDE MONONITRATE 30 MG TAB.ER.24H PO SCH (09:41)
[2019-03-15] MEDS: FAMOTIDINE INJ/PF 20 MG/2 ML SDV IV SCH (09:41)
[2019-03-15] MEDS: NORMAL SALINE 10 ML SDV (SCHEDULED) IV SCH ×2 (09:42→22:28)
[2019-03-15] MEDS: SACUBITRIL/VALSARTAN 97 MG/103 MG TABLET PO SCH ×2 (09:43→22:28)
[2019-03-15] MEDS: OXYCODONE HCL IR 5 MG TABLET PO PRN ×3 (09:45→22:31)
[2019-03-15] MEDS: PROMETHAZINE HCL INJ 25 MG/1 ML VIAL IV PRN (13:46)
--- NOTE | 2019-03-15 13:55 | PDOC PROGRESS REPORT ---
Subjective Progress Note for:: 03/15/19 Subjective:: This is a 48-year-old female who has a long hospital course and was on mechanical ventilation for CAP-MRSA complicated by development of ARDS requiring mechanical ventilation, acute exacerbation of her systolic CHF, acute on chronic renal failure, MRSA bacteremia and generalized debility. Patient has shown gradual clinical improvement. 03/11: Upon encounter, she is saturating well on 3 L via nasal cannula. She says her shortness of breath continue to slowly but gradually improved. Denies chest pain. Her bacteremia has cleared. ID has recommended completing a total of 6 weeks of antibiotics from clearance (03/05/19) with end date of 04/16/19. 03/12: She denies acute complaints. We will have PT reevaluate and work with her again today. 03/13: No acute event overnight. She continues to show gradual improvement with physical therapy. Denies chest pain or shortness of breath. She does complain of generalized muscle aches today. Will recheck a CK and urine myoglobin as she is on daptomycin. 03/14: No acute event overnight. She continues to show gradual improvement with ambulation with physical therapy. 03/15: No acute issues. She continues to have gradual improvement with ambulation. Continue physical therapy while inpatient. Denies chest pain or shortness of breath. Reason For Visit: TUNNEL PICC/COPD EXACERBATION,CHF,RESPIRATORY Physical Exam Vital Signs: Temp Pulse Resp BP Pulse Ox 98.0 F 66 18 99/69 L 100 03/15/19 12:29 03/15/19 12:29 03/15/19 12:29 03/15/19 12:29 03/15/19 12:29 Intake & Output 03/14/19 03/15/19 03/16/19 06:59 06:59 06:59 Intake Total 1270 1212 1156 Output Total 450 Balance 5372 673 1824 Weight 188 lb 11.451 oz 187 lb 13.341 oz General appearance: PRESENT: no acute distress, well-developed, well-nourished Head exam: PRESENT: atraumatic, normocephalic Eye exam: PRESENT: conjunctiva pink, EOMI, PERRLA. ABSENT: scleral icterus Ear exam: PRESENT: normal external ear exam Mouth exam: PRESENT: moist, tongue midline Neck exam: ABSENT: carotid bruit, JVD, lymphadenopathy, thyromegaly Respiratory exam: PRESENT: rhonchi. ABSENT: rales, wheezes Cardiovascular exam: PRESENT: RRR. ABSENT: diastolic murmur, rubs, systolic murmur Pulses: PRESENT: normal dorsalis pedis pul GI/Abdominal exam: PRESENT: normal bowel sounds, soft. ABSENT: distended, guarding, mass, organolmegaly, rebound, tenderness Rectal exam: PRESENT: deferred Extremities exam: PRESENT: +1 edema Neurological exam: PRESENT: alert, awake, oriented to person, oriented to place, oriented to time, oriented to situation, CN II-XII grossly intact. ABSENT: motor sensory deficit Results Laboratory Results: 03/13/19 04:45 03/13/19 04:45 02/08/19 02/08/19 02/08/19 04:06 04:06 05:30 Creatine Kinase Cancelled 33 CK-MB (CK-2) Cancelled Troponin I Cancelled NT-Pro-B Natriuret Pep Cancelled 02/08/19 02/11/19 02/13/19 05:45 03:18 01:22 Creatine Kinase CK-MB (CK-2) < 0.22 Troponin I 0.043 NT-Pro-B Natriuret Pep 7610 H 1970 H [id number] H 03/05/19 03/07/19 03/08/19 12:52 05:50 06:08 Creatine Kinase 39 24 L 23 L CK-MB (CK-2) Troponin I NT-Pro-B Natriuret Pep 03/13/19 17:20 Creatine Kinase 105 CK-MB (CK-2) Troponin I NT-Pro-B Natriuret Pep Impressions: Chest CT 02/10/19 00:00 IMPRESSION: No pneumothorax. No pleural effusions. Bibasilar consolidation in both lower lobes. Slightly increased interstitial thickening, basilar predominance. Scattered pulmonary cysts and ground-glass opacities are again noted. Tubes and lines in expected positions. Head CT 03/05/19 00:00 IMPRESSION: No acute intracranial pathology. EVIDENCE OF ACUTE STROKE: NO. KUB X-Ray 03/05/19 00:00 IMPRESSION: Constipation. Guidance Ultrasound 03/07/19 00:00 IMPRESSION: Successful placement of a tunneled non-cuffed 5 [place] dual lumen PICC via the right internal jugular vein utilizing fluoroscopic and sonographic guidance. Central Venous Line 03/07/19 09:30 IMPRESSION: Successful placement of a tunneled non-cuffed 5 [place] dual lumen PICC via the right internal jugular vein utilizing fluoroscopic and sonographic guidance. Guidance Fluoroscopy 03/07/19 09:30 IMPRESSION: Successful placement of a tunneled non-cuffed 5 [place] dual lumen PICC via the right internal jugular vein utilizing fluoroscopic and sonographic guidance. Chest X-Ray 03/12/19 15:03 IMPRESSION: Persistent infiltrate most marked in the right lower lobe. No significant change from prior study. Assessment and Plan - Diagnosis (1) Acute on chronic respiratory failure with hypoxia Is this a current diagnosis for this admission?: Yes Plan: Improving. Multifactorial from CAP and ARDS requiring mechanical ventilation, acute exacerbation of her systolic CHF, acute on chronic renal failure (2) MRSA bacteremia Is this a current diagnosis for this admission?: Yes Plan: 03.07.2019: Patient now has a tunneled PIC catheter for long-term antibiotic use. She will be on daptomycin as noted below with rifampin. She should be on a total of at least 6 weeks. The first initiation of any MRSA related antibiotics began approximately 02/11/2019 03.06.2019: Plan for tunneled picc catheter for long-term antibiotic. Recent cultures negative. Placed on Meropenem for coverage of possible tracheal colonization. Total of 7 days. 03.05.2019: Spoke with infectious disease. Their recommendation based on the p atient's renal failure is to start daptomycin at 8-10 mg/kg daily in addition to rifampin 600 mg daily.. Given the current recommendations a higher dose would seem to improve result in less resistance. Have ordered a baseline CK and have discontinued atorvastatin and concern for synergistic rhabdomlysis. The RIJ has been in place > one week and interventional radiology will be placing a tunneled catheter on Tuesday to allow the Eliquis effect to wear off. 03/13: Continue Daptomycin. 03/15: Completing IV antibiotics. (3) Acute on chronic renal failure Is this a current diagnosis for this admission?: Yes Plan: Creatinine at 1.9. 03/12: Reassess BMP tomorrow. 03/13: Crea better at 1.79. (4) Acute on chronic systolic (congestive) heart failure Is this a current diagnosis for this admission?: Yes Plan: Continue Lasix and Entresto. (5) Pneumonia Qualifiers: Pneumonia type: due to methicillin-resistant Staphylococcus aureus (MRSA) Is this a current diagnosis for this admission?: Yes Plan: Tracheal aspirate grew MRSA. On antibiotics. (6) Atrial fibrillation Qualifiers: Atrial fibrillation type: longstanding persistent Qualified Code(s): I48.11 - Longstanding persistent atrial fibrillation Is this a current diagnosis for this admission?: Yes Plan: Paroxysmal, not persistent, currently quiescent. Continue Eliquis and metoprolol. (7) COPD (chronic obstructive pulmonary disease) Qualifiers: COPD type: unspecified COPD Qualified Code(s): J44.9 - Chronic obstructive pulmonary disease, unspecified Is this a current diagnosis for this admission?: Yes Plan: Breathing treatments as needed. - Plan Summary Summary: Patient was downgraded from ICU on 03/08/19 after long stay for Community Acquired Pneumonia (MRSA) resulting in ARDS requiring intubation, acute exacerbation of her Systolic CHF, acute exacerbation of her chronic kidney failure, MRSA ba cteremia, and generalized debility. Infectious disease was consulted and recommend IV antibiotics x 6weeks from date of clearance (03/05/19) with end date of 04/16/19. At that time, repeat cultures should be obtained. If she remains positive, she will then require consultation with CT surgery for removal of her AICD. Due to history of substance abuse, she is not a good candidate for outpatient infusion. Patient remains significantly debilitated; will consult PT/OT. Cardiology has been consulted. Dr. Ragsdale recommends resumption of renally dosed Eliquis. Continue pulmonary toilet, as needed nebulizer treatments, and ambulation for recovery of her pneumonia. She does utilize home O2. 03/09/2019- The patient is now on the medical floor. She is quite comfortable. Sepsis is resolved however infectious disease consultation suggest a total of 6 weeks IV antibiotics from the last negative blood culture for her MRSA bacteremia secondary to her MRSA pneumonia. Her pneumonitis and tracheitis from mechanical ventilation are resolved as well. Cardiology continues to follow for her ischemic cardiology with AICD. Her blood pressure still borderline low on her current regimen. This may need to be adjusted. Will discuss with cardiology. A. fib is controlled. She is back to her baseline oxygen requirements. She appears to be back her close to her baseline chronic renal failure. We will continue current treatment plan as outlined 03/10/2019-patient is doing well. Plan course is for 6 weeks IV daptomycin. Stable from a cardiology standpoint. BUN and creatinine are slightly higher so I have decreased her furosemide to 60 mg twice daily will continue to monitor I's and O's, telemetry and vital signs - Time Time Spent with patient: 25-34 minutes
[2019-03-15] MEDS: MELATONIN 5 MG TABLET PO SCH (22:27)
[2019-03-15] MEDS: SENNOSIDES/DOCUSATE 8.6-50 MG 1 EACH TABLET PO SCH (22:27)
[2019-03-15] MEDS: FAMOTIDINE 20 MG TABLET PO SCH (22:30)
[2019-03-16 09:20] LABS: ABSOLUTE LYMPHOCYTES (AUTO) 1.7 10^3/uL (0.5-4.7); ABSOLUTE MONOCYTES (AUTO) 0.7 10^3/uL (0.1-1.4); ABSOLUTE NEUT (AUTO) 4.1 10^3/uL (1.7-8.2); BASOPHILS % (AUTO) 0.8 % (0-2); EOSINOPHILS % (AUTO) 0.1 % (0-6); HEMATOCRIT 29.2 % (36.0-47.0); HEMOGLOBIN 9.6 g/dL (12.0-15.5); LYMPHOCYTES % (AUTO) 25.4 % (13-45); MEAN CORPUSCULAR HEMOGLOBIN 29.7 pg (27.0-33.4); MEAN CORPUSCULAR HGB CONC 32.8 g/dL (32.0-36.0); MEAN CORPUSCULAR VOLUME 91 fl (80-97); MONOCYTES % (AUTO) 10.7 % (3-13); PLATELET COUNT 331 10^3/uL (150-450); RED BLOOD COUNT 3.23 10^6/uL (3.72-5.28); RED CELL DISTRIBUTION WIDTH 20.1 % (11.5-14.0); TOTAL CELLS COUNTED % (AUTO) 100 %; WHITE BLOOD COUNT 6.5 10^3/uL (4.0-10.5)
[2019-03-16 09:43] LABS: ANION GAP 9 (5-19); BLOOD UREA NITROGEN 18 mg/dL (7-20); CALCIUM 8.9 mg/dL (8.4-10.2); CARBON DIOXIDE 26 mmol/L (22-30); CHLORIDE 104 mmol/L (98-107); CREATINE KINASE 751 U/L (30-135); GLUCOSE 140 mg/dL (75-110); POTASSIUM 4.3 mmol/L (3.6-5.0)
[2019-03-16] MEDS: DAPTOMYCIN 750 MG in NORMAL SALINE 50 ML IV SCH (09:45)
[2019-03-16] MEDS: SACUBITRIL/VALSARTAN 97 MG/103 MG TABLET PO SCH ×2 (09:46→21:02)
[2019-03-16] MEDS: APIXABAN 2.5 MG TABLET PO SCH ×2 (09:46→17:27)
[2019-03-16] MEDS: FAMOTIDINE 20 MG TABLET PO SCH ×2 (09:46→21:02)
[2019-03-16] MEDS: POTASSIUM CHLORIDE 10 MEQ TABLET.ER PO SCH (09:46)
[2019-03-16] MEDS: ISOSORBIDE MONONITRATE 30 MG TAB.ER.24H PO SCH (09:47)
[2019-03-16] MEDS: METOPROLOL SUCCINATE 25 MG TAB.SR.24H PO SCH ×2 (09:48→21:01)
[2019-03-16] MEDS: PAROXETINE HCL 20 MG TABLET PO SCH (09:48)
[2019-03-16] MEDS: OXYCODONE HCL IR 5 MG TABLET PO PRN ×3 (09:51→20:48)
[2019-03-16] MEDS: BUSPIRONE HCL 10 MG TABLET PO SCH ×2 (09:52→17:27)
[2019-03-16] MEDS: NORMAL SALINE 10 ML SDV (SCHEDULED) IV SCH ×2 (09:53→21:03)
[2019-03-16] MEDS: ASPIRIN 81 MG TABLET, ENT COATED PO SCH (09:53)
[2019-03-16] MEDS: FUROSEMIDE 80 MG TABLET PO SCH ×2 (09:56→17:27)
--- NOTE | 2019-03-16 16:12 | PDOC PROGRESS REPORT ---
Subjective Progress Note for:: 03/16/19 Subjective:: This is a 48-year-old female who has a long hospital course and was on mechanical ventilation for CAP-MRSA complicated by development of ARDS requiring mechanical ventilation, acute exacerbation of her systolic CHF, acute on chronic renal failure, MRSA bacteremia and generalized debility. Patient has shown gradual clinical improvement. 03/11: Upon encounter, she is saturating well on 3 L via nasal cannula. She says her shortness of breath continue to slowly but gradually improved. Denies chest pain. Her bacteremia has cleared. ID has recommended completing a total of 6 weeks of antibiotics from clearance (03/05/19) with end date of 04/16/19. 03/12: She denies acute complaints. We will have PT reevaluate and work with her again today. 03/13: No acute event overnight. She continues to show gradual improvement with physical therapy. Denies chest pain or shortness of breath. She does complain of generalized muscle aches today. Will recheck a CK and urine myoglobin as she is on daptomycin. 03/14: No acute event overnight. She continues to show gradual improvement with ambulation with physical therapy. 03/15: No acute issues. She continues to have gradual improvement with ambulation. Continue physical therapy while inpatient. Denies chest pain or shortness of breath. 03/16: No acute event overnight. She denies acute complaints. She has continued to improve with activity and ambulation. CK has trended up on Daptomycin. Will rediscuss with ID about antibiotic recommendations. Reason For Visit: TUNNEL PICC/COPD EXACERBATION,CHF,RESPIRATORY Physical Exam Vital Signs: Temp Pulse Resp BP Pulse Ox 98.4 F 76 18 119/73 100 03/16/19 12:00 03/16/19 12:00 03/16/19 12:00 03/16/19 12:00 03/16/19 12:00 Intake & Output 03/15/19 03/16/19 03/17/19 06:59 06:59 06:59 Intake Total 1212 2410 272 Output Total 450 400 Balance 762 2010 272 Weight 187 lb 13.341 oz 188 lb 0.869 oz General appearance: PRESENT: no acute distress, well-developed, well-nourished Head exam: PRESENT: atraumatic, normocephalic Eye exam: PRESENT: conjunctiva pink, EOMI, PERRLA. ABSENT: scleral icterus Ear exam: PRESENT: normal external ear exam Mouth exam: PRESENT: moist, tongue midline Neck exam: ABSENT: carotid bruit, JVD, lymphadenopathy, thyromegaly Respiratory exam: PRESENT: rhonchi. ABSENT: rales, wheezes Cardiovascular exam: ABSENT: bradycardia, diastolic murmur Pulses: PRESENT: normal dorsalis pedis pul GI/Abdominal exam: PRESENT: normal bowel sounds, soft. ABSENT: distended, guarding, mass, organolmegaly, rebound, tenderness Rectal exam: PRESENT: deferred Extremities exam: PRESENT: +1 edema Neurological exam: PRESENT: alert, awake, oriented to person, oriented to place, oriented to time, oriented to situation, CN II-XII grossly intact. ABSENT: motor sensory deficit Results Laboratory Results: 03/16/19 09:00 03/16/19 09:00 03/16/19 03/16/19 09:00 09:00 WBC 6.5 RBC 3.23 L Hgb 9.6 L Hct 29.2 L MCV 91 MCH 29.7 MCHC 32.8 RDW 20.1 H Plt Count 331 Seg Neutrophils % 63.0 Sodium 139.1 Potassium 4.3 Chloride 104 Carbon Dioxide 26 Anion Gap 9 BUN 18 Creatinine 1.76 H Est GFR ( Amer) 37 L Glucose 140 H Calcium 8.9 02/08/19 02/08/19 02/08/19 04:06 04:06 05:30 Creatine Kinase Cancelled 33 CK-MB (CK-2) Cancelled Troponin I Cancelled NT-Pro-B Natriuret Pep Cancelled 02/08/19 02/11/19 02/13/19 05:45 03:18 01:22 Creatine Kinase CK-MB (CK-2) < 0.22 Troponin I 0.043 NT-Pro-B Natriuret Pep 7610 H 1970 H 83591 H 03/05/19 03/07/19 03/08/19 12:52 05:50 06:08 Creatine Kinase 39 24 L 23 L CK-MB (CK-2) Troponin I NT-Pro-B Natriuret Pep 03/13/19 03/16/19 17:20 09:00 Creatine Kinase 105 751 H CK-MB (CK-2) Troponin I NT-Pro-B Natriuret Pep Impressions: Chest CT 02/10/19 00:00 IMPRESSION: No pneumothorax. No pleural effusions. Bibasilar consolidation in both lower lobes. Slightly increased interstitial thickening, basilar predominance. Scattered pulmonary cysts and ground-glass opacities are again noted. Tubes and lines in expected positions. Head CT 03/05/19 00:00 IMPRESSION: No acute intracranial pathology. EVIDENCE OF ACUTE STROKE: NO. KUB X-Ray 03/05/19 00:00 IMPRESSION: Constipation. Guidance Ultrasound 03/07/19 00:00 IMPRESSION: Successful placement of a tunneled non-cuffed 5 [place] dual lumen PICC via the right internal jugular vein utilizing fluoroscopic and sonographic guidance. Central Venous Line 03/07/19 09:30 IMPRESSION: Successful placement of a tunneled non-cuffed 5 [place] dual lumen PICC via the right internal jugular vein utilizing fluoroscopic and sonographic guidance. Guidance Fluoroscopy 03/07/19 09:30 IMPRESSION: Successful placement of a tunneled non-cuffed 5 [place] dual lumen PICC via the right internal jugular vein utilizing fluoroscopic and sonographic guidance. Chest X-Ray 03/12/19 15:03 IMPRESSION: Persistent infiltrate most marked in the right lower lobe. No significant change from prior study. Assessment and Plan - Diagnosis (1) Acute on chronic respiratory failure with hypoxia Is this a current diagnosis for this admission?: Yes Plan: Improving. Multifactorial from CAP and ARDS requiring mechanical ventilation, acute exacerbation of her systolic CHF, acute on chronic renal failure (2) MRSA bacteremia Is this a current diagnosis for this admission?: Yes Plan: 03.07.2019: Patient now has a tunneled PIC catheter for long-term antibiotic use. She will be on daptomycin as noted below with rifampin. She should be on a total of at least 6 weeks. The first initiation of any MRSA related antibiotics began approximately 02/11/2019 03.06.2019: Plan for tunneled picc catheter for long-term antibiotic. Recent cultures negative. Placed on Meropenem for coverage of possible tracheal colonization. Total of 7 days. 03.05.2019: Spoke with infectious disease. Their recommendation based on the patient's renal failure is to start daptomycin at 8-10 mg/kg daily in addition to rifampin 600 mg daily. Given the current recommendations a higher dose would seem to improve result in less resistance. Have ordered a baseline CK and have discontinued atorvastatin and concern for synergistic rhabdomlysis. The RIJ has been in place > one week and interventional radiology will be placing a tunneled catheter on Tuesday to allow the Eliquis effect to wear off. 03/13: Continue Daptomycin. 03/15: Completing IV antibiotics. Last day on 04/16/19. (3) Acute on chronic renal failure Is this a current diagnosis for this admission?: Yes Plan: Creatinine at 1.9. 03/12: Reassess BMP tomorrow. 03/13: Crea better at 1.79. (4) Acute on chronic systolic (congestive) heart failure Is this a current diagnosis for this admission?: Yes Plan: Continue Lasix and Entresto. (5) Pneumonia Qualifiers: Pneumonia type: due to methicillin-resistant Staphylococcus aureus (MRSA) Is this a current diagnosis for this admission?: Yes Plan: Tracheal aspirate grew MRSA. On antibiotics. (6) Atrial fibrillation Qualifiers: Atrial fibrillation type: longstanding persistent Qualified Code(s): I48.11 - Longstanding persistent atrial fibrillation Is this a current diagnosis for this admission?: Yes Plan: Paroxysmal, not persistent, currently quiescent. Continue Eliquis and metoprolol. (7) COPD (chronic obstructive pulmonary disease) Qualifiers: COPD type: unspecified COPD Qualified Code(s): J44.9 - Chronic obstructive pulmonary disease, unspecified Is this a current diagnosis for this admission?: Yes Plan: Breathing treatments as needed. - Plan Summary Summary: Patient was downgraded from ICU on 03/08/19 after long stay for Community Acquired Pneumonia (MRSA) resulting in ARDS requiring intubation, acute exacerbation of her Systolic CHF, acute exacerbation of her chronic kidney failure, MRSA bacteremia, and generalized debility. Infectious disease was consulted and recommend IV antibiotics x 6weeks from date of clearance (03/05/19) with end date of 04/16/19. At that time, repeat cultures should be obtained. If she remains positive, she will then require consultation with CT surgery for removal of her AICD. Due to history of substance abuse, she is not a good candidate for outpatient infusion. Patient remains significantly debilitated; will consult PT/OT. Cardiology has been consulted. Dr. Ragsdale recommends resumption of renally dosed Eliquis. Continue pulmonary toilet, as needed nebulizer treatments, and ambulation for recovery of her pneumonia. She does utilize home O2. 03/09/2019- The patient is now on the medical floor. She is quite comfortable. Sepsis is resolved however infectious disease consultation suggest a total of 6 weeks IV antibiotics from the last negative blood culture for her MRSA bacteremia secondary to her MRSA pneumonia. Her pneumonitis and tracheitis from mechanical ventilation are resolved as well. Cardiology continues to follow for her ischemic cardiology with AICD. Her blood pressure still borderline low on her current regimen. This may need to be adjusted. Will discuss with cardiology. A. fib is controlled. She is back to her baseline oxygen requirements. She appears to be back her close to her baseline chronic renal failure. We will continue current treatment plan as outlined 03/10/2019-patient is doing well. Plan course is for 6 weeks IV daptomycin. Stable from a cardiology standpoint. BUN and creatinine are slightly higher so I have decreased her furosemide to 60 mg twice daily will continue to monitor I's and O's, telemetry and vital signs - Time Time Spent with patient: 25-34 minutes
--- NOTE | 2019-03-16 17:22 | Progress Note ---
Provider Note Provider Note: ID Follow Up- I was contacted by Pharmacy because of an increasing CPK level of a patient on daptomycin for MRSA bacteremia. Patient had been treated with vancomycin, but this drug was changed to daptomycin about 11 days ago because of an increase in the patient's serum creatinine. Trough level of vancomycin was >30 mcg/ml at that time, so it is not surprising that there was an increase in the serum creatinine. The creatinine has improved since stopping vancomycin. CPK level today around 700. Recommend checking CPK level tomorrow. If the CPK is >1000 tomorrow (or at any time), would discontinue daptomycin and restart vancomycin. Vancomycin target trough level should be between 10-15 mcg/ml. If the trough levels are in this range, it is unlikely that the patient will develop acute kidney injury. Please contact me on my cell phone ([phone]) if there are questions. Adriano Chin MD Pager: [phone]
[2019-03-16] MEDS ORDERED: SODIUM CHLORIDE NASAL SPRAY 44 ML NAREB PRN (19:30)
[2019-03-16] MEDS: FAMOTIDINE INJ/PF 20 MG/2 ML SDV IV SCH (20:49)
[2019-03-16] MEDS: MELATONIN 5 MG TABLET PO SCH (21:01)
[2019-03-16] MEDS: SENNOSIDES/DOCUSATE 8.6-50 MG 1 EACH TABLET PO SCH (21:02)
--- NOTE | 2019-03-16 21:28 | EKG REPORT ---
SEVERITY:- ABNORMAL ECG - ATRIAL-SENSED VENTRICULAR-PACED RHYTHM : Confirmed by: Griselda Martin MD 16-Mar-2019 21:28:02
[2019-03-17] MEDS: PAROXETINE HCL 20 MG TABLET PO SCH (09:52)
[2019-03-17] MEDS: ASPIRIN 81 MG TABLET, ENT COATED PO SCH (09:52)
[2019-03-17] MEDS: METOPROLOL SUCCINATE 25 MG TAB.SR.24H PO SCH ×2 (09:52→21:46)
[2019-03-17] MEDS: POTASSIUM CHLORIDE 10 MEQ TABLET.ER PO SCH (09:52)
[2019-03-17] MEDS: ISOSORBIDE MONONITRATE 30 MG TAB.ER.24H PO SCH (09:53)
[2019-03-17] MEDS: FUROSEMIDE 80 MG TABLET PO SCH ×2 (09:53→17:09)
[2019-03-17] MEDS: NORMAL SALINE 10 ML SDV (SCHEDULED) IV SCH ×2 (09:54→21:53)
[2019-03-17] MEDS: FAMOTIDINE INJ/PF 20 MG/2 ML SDV IV SCH ×2 (09:54→21:53)
[2019-03-17] MEDS: FAMOTIDINE 20 MG TABLET PO SCH ×2 (09:54→21:53)
[2019-03-17] MEDS: APIXABAN 2.5 MG TABLET PO SCH ×2 (09:54→17:09)
[2019-03-17] MEDS: BUSPIRONE HCL 10 MG TABLET PO SCH ×2 (09:54→17:09)
[2019-03-17] MEDS: OXYCODONE HCL IR 5 MG TABLET PO PRN ×2 (10:02→16:14)
[2019-03-17] MEDS: SACUBITRIL/VALSARTAN 97 MG/103 MG TABLET PO SCH ×2 (10:42→21:46)
[2019-03-17] MEDS: VANCOMYCIN HCL 1,000 MG in DEXTROSE 5%-WATER 250 ML IV SCH (12:06)
--- NOTE | 2019-03-17 15:17 | PDOC PROGRESS REPORT ---
Subjective Progress Note for:: 03/17/19 Subjective:: This is a 48-year-old female who has a long hospital course and was on mechanical ventilation for CAP-MRSA complicated by development of ARDS requiring mechanical ventilation, acute exacerbation of her systolic CHF, acute on chronic renal failure, MRSA bacteremia and generalized debility. Patient has shown gradual clinical improvement. 03/11: Upon encounter, she is saturating well on 3 L via nasal cannula. She says her shortness of breath continue to slowly but gradually improved. Denies chest pain. Her bacteremia has cleared. ID has recommended completing a total of 6 weeks of antibiotics from clearance (03/05/19) with end date of 04/16/19. 03/12: She denies acute complaints. We will have PT reevaluate and work with her again today. 03/13: No acute event overnight. She continues to show gradual improvement with physical therapy. Denies chest pain or shortness of breath. She does complain of generalized muscle aches today. Will recheck a CK and urine myoglobin as she is on daptomycin. 03/14: No acute event overnight. She continues to show gradual improvement with ambulation with physical therapy. 03/15: No acute issues. She continues to have gradual improvement with ambulation. Continue physical therapy while inpatient. Denies chest pain or shortness of breath. 03/16: No acute event overnight. She denies acute complaints. She has continued to improve with activity and ambulation. CK has trended up on Daptomycin. Will rediscuss with ID about antibiotic recommendations. 03/17: No acute event overnight. Patient says she continues to feel better. She continues to improve in terms of ambulation. Patient's CK has significantly been trending up while on daptomycin. CK today has gone up to more than 1000. Discussed with ID. Now that her acute renal failure has improved, will switch daptomycin to vancomycin. Patient could possibly complete IV antibiotics at home continues to improve over the next few days now that she will be switched to vancomycin. Reason For Visit: TUNNEL PICC/COPD EXACERBATION,CHF,RESPIRATORY Physical Exam Vital Signs: Temp Pulse Resp BP Pulse Ox 98.1 F 69 20 89/57 L 99 03/17/19 12:25 03/17/19 12:25 03/17/19 12:25 03/17/19 12:25 03/17/19 12:25 Intake & Output 03/16/19 03/17/19 03/18/19 06:59 06:59 06:59 Intake Total 2410 1344 1124 Output Total 400 Balance 2009 1344 1124 Weight 188 lb 0.869 oz 191 lb 9.307 oz General appearance: PRESENT: no acute distress, well-developed, well-nourished Head exam: PRESENT: atraumatic, normocephalic Eye exam: PRESENT: conjunctiva pink, EOMI, PERRLA. ABSENT: scleral icterus Ear exam: PRESENT: normal external ear exam Mouth exam: PRESENT: moist, tongue midline Neck exam: PRESENT: carotid bruit Respiratory exam: PRESENT: rhonchi. ABSENT: rales, wheezes Cardiovascular exam: PRESENT: RRR. ABSENT: diastolic murmur, rubs, systolic murmur Pulses: PRESENT: normal dorsalis pedis pul GI/Abdominal exam: PRESENT: normal bowel sounds, soft. ABSENT: distended, guarding, mass, organolmegaly, rebound, tenderness Rectal exam: PRESENT: deferred Extremities exam: PRESENT: full ROM, +1 edema. ABSENT: calf tenderness, clubbi ng Neurological exam: PRESENT: alert, awake, oriented to person, oriented to place, oriented to time, oriented to situation, CN II-XII grossly intact. ABSENT: motor sensory deficit Results Laboratory Results: 03/16/19 09:00 03/16/19 09:00 02/08/19 02/08/19 02/08/19 04:06 04:06 05:30 Creatine Kinase Cancelled 33 CK-MB (CK-2) Cancelled Troponin I Cancelled NT-Pro-B Natriuret Pep Cancelled 02/08/19 02/11/19 02/13/19 05:45 03:18 01:22 Creatine Kinase CK-MB (CK-2) < 0.22 Troponin I 0.043 NT-Pro-B Natriuret Pep 7610 H 1970 H 79671 H 03/05/19 03/07/19 03/08/19 12:52 05:50 06:08 Creatine Kinase 39 24 L 23 L CK-MB (CK-2) Troponin I NT-Pro-B Natriuret Pep 03/13/19 03/16/19 03/16/19 17:20 09:00 18:00 Creatine Kinase 105 751 H CK-MB (CK-2) Troponin I 0.067 NT-Pro-B Natriuret Pep 03/17/19 05:10 Creatine Kinase 1260 H CK-MB (CK-2) Troponin I NT-Pro-B Natriuret Pep Impressions: Chest CT 02/10/19 00:00 IMPRESSION: No pneumothorax. No pleural effusions. Bibasilar consolidation in both lower lobes. Slightly increased interstitial thickening, basilar predominance. Scattered pulmonary cysts and ground-glass opacities are again noted. Tubes and lines in expected positions. Head CT 03/05/19 00:00 IMPRESSION: No acute intracranial pathology. EVIDENCE OF ACUTE STROKE: NO. KUB X-Ray 03/05/19 00:00 IMPRESSION: Constipation. Guidance Ultrasound 03/07/19 00:00 IMPRESSION: Successful placement of a tunneled non-cuffed 5 [place] dual lumen PICC via the right internal jugular vein utilizing fluoroscopic and sonographic guidance. Central Venous Line 03/07/19 09:30 IMPRESSION: Successful placement of a tunneled non-cuffed 5 [place] dual lumen PICC via the right internal jugular vein utilizing fluoroscopic and sonographic guidance. Guidance Fluoroscopy 03/07/19 09:30 IMPRESSION: Successful placement of a tunneled non-cuffed 5 [place] dual lumen PICC via the right internal jugular vein utilizing fluoroscopic and sonographic guidance. Chest X-Ray 03/12/19 15:03 IMPRESSION: Persistent infiltrate most marked in the right lower lobe. No significant change from prior study. Assessment and Plan - Diagnosis (1) Acute on chronic respiratory failure with hypoxia Is this a current diagnosis for this admission?: Yes Plan: Improving. Multifactorial from CAP and ARDS requiring mechanical ventilation, acute exacerbation of her systolic CHF, acute on chronic renal failure (2) MRSA bacteremia Is this a current diagnosis for this admission?: Yes Plan: 03.07.2019: Patient now has a tunneled PIC catheter for long-term antibiotic use. She will be on daptomycin as noted below with rifampin. She should be on a total of at least 6 weeks. The first initiation of any MRSA related antibiotics began approximately 02/11/2019 03.06.2019: Plan for tunneled picc catheter for long-term antibiotic. Recent cultures negative. Placed on Meropenem for coverage of possible tracheal colonization. Total of 7 days. 03.05.2019: Spoke with infectious disease. Their recommendation based on the patient's renal failure is to start daptomycin at 8-10 mg/kg daily in addition to rifampin 600 mg daily. Given the current recommendations a higher dose would seem to improve result in less resistance. Have ordered a baseline CK and have discontinued atorvastatin and concern for synergistic rhabdomlysis. The RIJ has been in place > one week and interventional radiology will be placing a tunneled catheter on Tuesday to allow the Eliquis effect to wear off. 03/13: Continue Daptomycin. 03/15: Completing IV antibiotics. Last day on 04/16/19. 03/17: Patient has developed significant elevation of CK from daptomycin. Discussed with ID. Switch daptomycin to vancomycin. (3) Acute on chronic systolic (congestive) heart failure Is this a current diagnosis for this admission?: Yes Plan: Continue Lasix and Entresto. (4) Acute on chronic renal failure Is this a current diagnosis for this admission?: Yes Plan: Creatinine at 1.9. 03/12: Reassess BMP tomorrow. 03/13: Crea better at 1.79. 03/17: Creatinine improved to (5) Pneumonia Qualifiers: Pneumonia type: due to methicillin-resistant Staphylococcus aureus (MRSA) Is this a current diagnosis for this admission?: Yes Plan: Tracheal aspirate grew MRSA. On antibiotics. (6) Atrial fibrillation Qualifiers: Atrial fibrillation type: longstanding persistent Qualified Code(s): I48.11 - Longstanding persistent atrial fibrillation Is this a current diagnosis for this admission?: Yes Plan: Paroxysmal, not persistent, currently quiescent. Continue Eliquis and metoprolol. (7) COPD (chronic obstructive pulmonary disease) Qualifiers: COPD type: unspecified COPD Qualified Code(s): J44.9 - Chronic obstructive pulmonary disease, unspecified Is this a current diagnosis for this admission?: Yes Plan: Breathing treatments as needed. - Plan Summary Summary: Patient was downgraded from ICU on 03/08/19 after long stay for Community Acquired Pneumonia (MRSA) resulting in ARDS requiring intubation, acute exacerbation of her Systolic CHF, acute exacerbation of her chronic kidney failure, MRSA bacteremia, and generalized debility. Infectious disease was consulted and recommend IV antibiotics x 6weeks from date of clearance (03/05/19) with end date of 04/16/19. At that time, repeat cultures should be obtained. If she remains positive, she will then require consultation with CT surgery for removal of her AICD. Due to history of substance abuse, she is not a good candidate for outpatient infusion. Patient remains significantly debilitated; will consult PT/OT. Cardiology has been consulted. Dr. Ragsdale recommends resumption of renally dosed Eliquis. Continue pulmonary toilet, as needed nebulizer treatments, and ambulation for recovery of her pneumonia. She does utilize home O2. 03/09/2019- The patient is now on the medical floor. She is quite comfortable. Sepsis is resolved however infectious disease consultation suggest a total of 6 weeks IV antibiotics from the last negative blood culture for her MRSA bacteremia secondary to her MRSA pneumonia. Her pneumonitis and tracheitis from mechanical ventilation are resolved as well. Cardiology continues to follow for her ischemic cardiology with AICD. Her blood pressure still borderline low on her current regimen. This may need to be adjusted. Will discuss with cardiology. A. fib is controlled. She is back to her baseline oxygen requirements. She appears to be back her close to her baseline chronic renal failure. We will continue current treatment plan as outlined 03/10/2019-patient is doing well. Plan course is for 6 weeks IV daptomycin. Stable from a cardiology standpoint. BUN and creatinine are slightly higher so I have decreased her furosemide to 60 mg twice daily will continue to monitor I's and O's, telemetry and vital signs - Time Time Spent with patient: 25-34 minutes
[2019-03-17] MEDS: DAPTOMYCIN 750 MG in NORMAL SALINE 50 ML IV SCH (16:23)
[2019-03-17 18:26] LABS: ANION GAP 9 (5-19); BLOOD UREA NITROGEN 16 mg/dL (7-20); CALCIUM 9.3 mg/dL (8.4-10.2); CARBON DIOXIDE 26 mmol/L (22-30); CHLORIDE 103 mmol/L (98-107); GLUCOSE 115 mg/dL (75-110); POTASSIUM 4.4 mmol/L (3.6-5.0)
[2019-03-17] MEDS: SENNOSIDES/DOCUSATE 8.6-50 MG 1 EACH TABLET PO SCH (21:46)
[2019-03-17] MEDS ORDERED: NORMAL SALINE 1000 ML 1,000 ML IV ONE (22:00)
[2019-03-17] MEDS: MELATONIN 5 MG TABLET PO SCH (22:13)
[2019-03-17] MEDS ORDERED: NORMAL SALINE 100 ML IV ONE (22:15)
[2019-03-18] MEDS: SACUBITRIL/VALSARTAN 97 MG/103 MG TABLET PO SCH ×2 (10:30→21:48)
[2019-03-18] MEDS: FAMOTIDINE 20 MG TABLET PO SCH ×2 (10:30→21:44)
[2019-03-18] MEDS: PAROXETINE HCL 20 MG TABLET PO SCH (10:33)
[2019-03-18] MEDS: ISOSORBIDE MONONITRATE 30 MG TAB.ER.24H PO SCH (10:34)
[2019-03-18] MEDS: METOPROLOL SUCCINATE 25 MG TAB.SR.24H PO SCH ×2 (10:34→21:45)
[2019-03-18] MEDS: APIXABAN 2.5 MG TABLET PO SCH ×2 (10:35→17:19)
[2019-03-18] MEDS: BUSPIRONE HCL 10 MG TABLET PO SCH ×2 (10:35→17:19)
[2019-03-18] MEDS: POTASSIUM CHLORIDE 10 MEQ TABLET.ER PO SCH (10:36)
[2019-03-18] MEDS: ASPIRIN 81 MG TABLET, ENT COATED PO SCH (10:36)
[2019-03-18] MEDS: OXYCODONE HCL IR 5 MG TABLET PO PRN ×3 (10:36→21:43)
[2019-03-18] MEDS: FAMOTIDINE INJ/PF 20 MG/2 ML SDV IV SCH ×2 (10:37→21:46)
[2019-03-18] MEDS: NORMAL SALINE 10 ML SDV (SCHEDULED) IV SCH ×2 (10:39→21:47)
--- NOTE | 2019-03-18 10:49 | PDOC PROGRESS REPORT ---
Subjective Progress Note for:: 03/18/19 Subjective:: 48-year-old female who has a long hospital course and was on mechanical ventilation for CAP-MRSA complicated by development of ARDS requiring mechanical ventilation, acute exacerbation of her systolic CHF, acute on chronic renal failure, MRSA bacteremia and generalized debility. Patient has shown gradual clinical improvement. 03/11: Upon encounter, she is saturating well on 3 L via nasal cannula. She says her shortness of breath continue to slowly but gradually improved. Denies chest pain. Her bacteremia has cleared. ID has recommended completing a total of 6 weeks of antibiotics from clearance (03/05/19) with end date of 04/16/19. 03/12: She denies acute complaints. We will have PT reevaluate and work with her again today. 03/13: No acute event overnight. She continues to show gradual improvement with physical therapy. Denies chest pain or shortness of breath. She does complain of generalized muscle aches today. Will recheck a CK and urine myoglobin as she is on daptomycin. 03/14: No acute event overnight. She continues to show gradual improvement with ambulation with physical therapy. 03/15: No acute issues. She continues to have gradual improvement with ambulation. Continue physical therapy while inpatient. Denies chest pain or sh ortness of breath. 03/16: No acute event overnight. She denies acute complaints. She has continued to improve with activity and ambulation. CK has trended up on Daptomycin. Will rediscuss with ID about antibiotic recommendations. 03/17: No acute event overnight. Patient says she continues to feel better. She continues to improve in terms of ambulation. Patient's CK has significantly been trending up while on daptomycin. CK today has gone up to more than 1000. Discussed with ID. Now that her acute renal failure has improved, will switch daptomycin to vancomycin. Patient could possibly complete IV antibiotics at home continues to improve over the next few days now that she will be switched to vancomycin. 03/08-no acute events in the last 24 hours. Patient is afebrile. Blood p ressures are running low. Plan is to hold Lasix 60 mg p.o. twice daily for now. Today's CK level is pending. Audible in the bed communicating well. Expressing desire to go home and continue antibiotic therapy at home. Reason For Visit: TUNNEL PICC/COPD EXACERBATION,CHF,RESPIRATORY Physical Exam Vital Signs: Temp Pulse Resp BP Pulse Ox 97.6 F 66 21 H 99/57 L 93 03/18/19 08:18 03/18/19 08:18 03/18/19 08:18 03/18/19 08:18 03/18/19 08:18 Intake & Output 03/17/19 03/18/19 03/19/19 06:59 06:59 06:59 Intake Total 1344 1714 Balance 1344 1714 Weight 86.9 kg 86.9 kg General appearance: PRESENT: no acute distress, obese Head exam: PRESENT: atraumatic Eye exam: PRESENT: PERRLA Mouth exam: PRESENT: moist, tongue midline Teeth exam: PRESENT: poor dentation Neck exam: ABSENT: carotid bruit, JVD, lymphadenopathy, thyromegaly Respiratory exam: PRESENT: decreased breath sounds, other - AICD present on the left side of the chest. Cardiovascular exam: PRESENT: RRR. ABSENT: diastolic murmur, rubs, systolic murmur GI/Abdominal exam: PRESENT: normal bowel sounds, soft. ABSENT: distended, guarding, mass, organolmegaly, rebound, tenderness Rectal exam: PRESENT: deferred Neurological exam: PRESENT: alert, awake, oriented to person, oriented to place, oriented to time, oriented to situation, CN II-XII grossly intact. ABSENT: motor sensory deficit Psychiatric exam: PRESENT: appropriate affect, normal mood. ABSENT: homicidal ideation, suicidal ideation Results Laboratory Results: 03/16/19 09:00 03/17/19 17:40 03/17/19 17:40 Sodium 138.4 Potassium 4.4 Chloride 103 Carbon Dioxide 26 Anion Gap 9 BUN 16 Creatinine 1.83 H Est GFR ( Amer) 36 L Glucose 115 H Calcium 9.3 02/08/19 02/08/19 02/08/19 04:06 04:06 05:30 Creatine Kinase Cancelled 33 CK-MB (CK-2) Cancelled Troponin I Cancelled NT-Pro-B Natriuret Pep Cancelled 02/08/19 02/11/19 02/13/19 05:45 03:18 01:22 Creatine Kinase CK-MB (CK-2) < 0.22 Troponin I 0.043 NT-Pro-B Natriuret Pep 7610 H 1970 H 21817 H 03/05/19 03/07/19 03/08/19 12:52 05:50 06:08 Creatine Kinase 39 24 L 23 L CK-MB (CK-2) Troponin I NT-Pro-B Natriuret Pep 03/13/19 03/16/19 03/16/19 17:20 09:00 18:00 Creatine Kinase 105 751 H CK-MB (CK-2) Troponin I 0.067 NT-Pro-B Natriuret Pep 03/17/19 05:10 Creatine Kinase 1260 H CK-MB (CK-2) Troponin I NT-Pro-B Natriuret Pep Impressions: Chest CT 02/10/19 00:00 IMPRESSION: No pneumothorax. No pleural effusions. Bibasilar consolidation in both lower lobes. Slightly increased interstitial thickening, basilar predom inance. Scattered pulmonary cysts and ground-glass opacities are again noted. Tubes and lines in expected positions. Head CT 03/05/19 00:00 IMPRESSION: No acute intracranial pathology. EVIDENCE OF ACUTE STROKE: NO. KUB X-Ray 03/05/19 00:00 IMPRESSION: Constipation. Guidance Ultrasound 03/07/19 00:00 IMPRESSION: Successful placement of a tunneled non-cuffed 5 [place] dual lumen PICC via the right internal jugular vein utilizing fluoroscopic and sonographic guidance. Central Venous Line 03/07/19 09:30 IMPRESSION: Successful placement of a tunneled non-cuffed 5 [place] dual lumen PICC via the right internal jugular vein utilizing fluoroscopic and sonographic guidance. Guidance Fluoroscopy 03/07/19 09:30 IMPRESSION: Successful placement of a tunneled non-cuffed 5 [place] dual lumen PICC via the right internal jugular vein utilizing fluoroscopic and sonographic guidance. Chest X-Ray 03/12/19 15:03 IMPRESSION: Persistent infiltrate most marked in the right lower lobe. No significant change from prior study. Assessment and Plan - Diagnosis (1) Acute on chronic respiratory failure with hypoxia Is this a current diagnosis for this admission?: Yes Plan: Improving. Multifactorial from CAP and ARDS requiring mechanical ventilation, acute exacerbation of her systolic CHF, acute on chronic renal failure 03/18/2019-patient admitted with acute on chronic respiratory failure with hypoxia pulse ox today 97% on 2 L. At the time of presentation she was admitted with community-acquired pneumonia and ARDS requiring mechanical ventilation. Status post intubation and extubation. Patient is presently receiving IV vancomycin. (2) MRSA bacteremia Is this a current diagnosis for this admission?: Yes Plan: 03.07.2019: Patient now has a tunneled PIC catheter for long-term antibiotic use. She will be on daptomycin as noted below with rifampin. She should be on a total of at least 6 weeks. The first initiation of any MRSA related antibiotics began approximately 02/11/2019 03.06.2019: Plan for tunneled picc catheter for long-term antibiotic. Recent cultures negative. Placed on Meropenem for coverage of possible tracheal colo nization. Total of 7 days. 03.05.2019: Spoke with infectious disease. Their recommendation based on the patient's renal failure is to start daptomycin at 8-10 mg/kg daily in addition to rifampin 600 mg daily. Given the current recommendations a higher dose would seem to improve result in less resistance. Have ordered a baseline CK and have discontinued atorvastatin and concern for synergistic rhabdomlysis. The RIJ has been in place > one week and interventional radiology will be placing a tunneled catheter on Tuesday to allow the Eliquis effect to wear off. 03/13: Continue Daptomycin. 03/15: Completing IV antibiotics. Last day on 04/16/19. 03/17: Patient has developed significant elevation of CK from daptomycin. Discussed with ID. Switch daptomycin to vancomycin. 03/08-CK is 2060 yesterday and today CK levels are pending. Daptomycin was discontinued and patient is presently on vancomycin. Latest blood cultures are negative. Last day of antibiotic therapy will be 04/16/2019. (3) Acute on chronic systolic (congestive) heart failure Is this a current diagnosis for this admission?: Yes Plan: Continue Lasix and Entresto. 03/18/2019 patient admitted with acute on chronic systolic heart failure blood pressures are running on the lower side plan is to hold Lasix for today. We will plan is to continue Entresto at this time. On examination patient is not in fluid overload. (4) Acute on chronic renal failure Is this a current diagnosis for this admission?: Yes Plan: Creatinine at 1.9. 03/12: Reassess BMP tomorrow. 03/13: Crea better at 1.79. 03/17: Creatinine improved to 03/18/2019 latest serum creatinine is 1.83 with estimated GFR around 36. Plan is to repeat the labs tomorrow. Creatinine is between 1.2 to 1.3. (5) Pneumonia Qualifiers: Pneumonia type: due to methicillin-resistant Staphylococcus aureus (MRSA) Is this a current diagnosis for this admission?: Yes Plan: Tracheal aspirate grew MRSA. On antibiotics. 03/18/2019 tracheal aspirate shows MRSA and vancomycin. (6) Atrial fibrillation Qualifiers: Atrial fibrillation type: longstanding persistent Qualified Code(s): I48.11 - Longstanding persistent atrial fibrillation Is this a current diagnosis for this admission?: Yes Plan: Paroxysmal, not persistent, currently quiescent. Continue Eliquis and metoprolol. 03/18/2019-on examination today heart is in sinus rhythm. Patient has history of paroxysmal atrial fibrillation plan is to continue Eliquis and metoprolol. Heart rate today is in the 70s. (7) Obesity (BMI 30.0-34.9) Is this a current diagnosis for this admission?: No Plan: 03/18/2019 BMI is more than 32 dietary consult provided. (8) AICD (automatic cardioverter/defibrillator) present Is this a current diagnosis for this admission?: Yes Plan: No deployment/discharges (9) COPD (chronic obstructive pulmonary disease) Qualifiers: COPD type: unspecified COPD Qualified Code(s): J44.9 - Chronic obstructive pulmonary disease, unspecified Is this a current diagnosis for this admission?: Yes Plan: Breathing treatments as needed. - Plan Summary Summary: Patient was downgraded from ICU on 03/08/19 after long stay for Community Acquired Pneumonia (MRSA) resulting in ARDS requiring intubation, acute exacerbation of her Systolic CHF, acute exacerbation of her chronic kidney failure, MRSA bacteremia, and generalized debility. Infectious disease was consulted and recommend IV antibiotics x 6weeks from date of clearance (03/05/19) with end date of 04/16/19. At that time, repeat cultures should be obtained. If she remains positive, she will then require consultation with CT surgery for removal of her AICD. Due to history of substance abuse, she is not a good candidate for outpatient infusion. Patient remains significantly debilitated; will consult PT/OT. Cardiology has been consulted. Dr. Ragsdale recommends resumption of renally dosed Eliquis. Continue pulmonary toilet, as needed nebulizer treatments, and ambulation for recovery of her pneumonia. She does utilize home O2. 03/09/2019- The patient is now on the medical floor. She is quite comfortable. Sepsis is resolved however infectious disease consultation suggest a total of 6 weeks IV antibiotics from the last negative blood culture for her MRSA bacteremia secondary to her MRSA pneumonia. Her pneumonitis and tracheitis from mechanical ventilation are resolved as well. Cardiology continues to follow for her ischemic cardiology with AICD. Her blood pressure still borderline low on her current regimen. This may need to be adjusted. Will discuss with cardiology. A. fib is controlled. She is back to her baseline oxygen require ments. She appears to be back her close to her baseline chronic renal failure. We will continue current treatment plan as outlined 03/10/2019-patient is doing well. Plan course is for 6 weeks IV daptomycin. Stable from a cardiology standpoint. BUN and creatinine are slightly higher so I have decreased her furosemide to 60 mg twice daily will continue to monitor I's and O's, telemetry and vital signs
[2019-03-18] MEDS: VANCOMYCIN HCL 1,000 MG in DEXTROSE 5%-WATER 250 ML IV SCH (14:14)
[2019-03-18] MEDS: PROMETHAZINE HCL INJ 25 MG/1 ML VIAL IV PRN (19:53)
[2019-03-18] MEDS: MELATONIN 5 MG TABLET PO SCH (21:44)
[2019-03-18] MEDS: SENNOSIDES/DOCUSATE 8.6-50 MG 1 EACH TABLET PO SCH (21:44)
[2019-03-19 07:00] LABS: ABSOLUTE BASOPHILS # (AUTO) 0.1 10^3/uL (0.0-0.2); ABSOLUTE LYMPHOCYTES (AUTO) 1.4 10^3/uL (0.5-4.7); ABSOLUTE MONOCYTES (AUTO) 0.6 10^3/uL (0.1-1.4); ABSOLUTE NEUT (AUTO) 3.5 10^3/uL (1.7-8.2); BASOPHILS % (AUTO) 1.1 % (0-2); EOSINOPHILS % (AUTO) 0.3 % (0-6); HEMATOCRIT 25.1 % (36.0-47.0); HEMOGLOBIN 8.3 g/dL (12.0-15.5); LYMPHOCYTES % (AUTO) 25.1 % (13-45); MEAN CORPUSCULAR HEMOGLOBIN 29.9 pg (27.0-33.4); MEAN CORPUSCULAR VOLUME 91 fl (80-97); PLATELET COUNT 248 10^3/uL (150-450); RED BLOOD COUNT 2.77 10^6/uL (3.72-5.28); RED CELL DISTRIBUTION WIDTH 19.7 % (11.5-14.0); SEGMENTED NEUTROPHILS % (AUTO) 62.5 % (42-78); TOTAL CELLS COUNTED % (AUTO) 100 %; WHITE BLOOD COUNT 5.5 10^3/uL (4.0-10.5)
[2019-03-19 07:17] LABS: ALBUMIN 2.9 g/dL (3.5-5.0); ALKALINE PHOSPHATASE 135 U/L (38-126); ANION GAP 6 (5-19); ASPARTATE AMINO TRANSFERASE 95 U/L (14-36); BILIRUBIN,DIRECT 0.6 mg/dL (0.0-0.4); BILIRUBIN,TOTAL 0.7 mg/dL (0.2-1.3); BLOOD UREA NITROGEN 21 mg/dL (7-20); CALCIUM 8.8 mg/dL (8.4-10.2); CARBON DIOXIDE 29 mmol/L (22-30); CHLORIDE 105 mmol/L (98-107); GLUCOSE 95 mg/dL (75-110); POTASSIUM 4.2 mmol/L (3.6-5.0); TOTAL PROTEIN 6.5 g/dL (6.3-8.2)
[2019-03-19] MEDS: POTASSIUM CHLORIDE 10 MEQ TABLET.ER PO SCH (10:13)
[2019-03-19] MEDS: METOPROLOL SUCCINATE 25 MG TAB.SR.24H PO SCH ×2 (10:14→21:44)
[2019-03-19] MEDS: ISOSORBIDE MONONITRATE 30 MG TAB.ER.24H PO SCH (10:14)
[2019-03-19] MEDS: BUSPIRONE HCL 10 MG TABLET PO SCH ×2 (10:14→17:15)
[2019-03-19] MEDS: APIXABAN 2.5 MG TABLET PO SCH ×2 (10:14→17:15)
[2019-03-19] MEDS: PAROXETINE HCL 20 MG TABLET PO SCH (10:14)
[2019-03-19] MEDS: ASPIRIN 81 MG TABLET, ENT COATED PO SCH (10:14)
[2019-03-19] MEDS: FAMOTIDINE INJ/PF 20 MG/2 ML SDV IV SCH ×2 (10:14→21:34)
[2019-03-19] MEDS: NORMAL SALINE 10 ML SDV (SCHEDULED) IV SCH ×2 (10:15→21:34)
--- NOTE | 2019-03-19 10:25 | PDOC PROGRESS REPORT ---
Subjective Progress Note for:: 03/19/19 Subjective:: 48-year-old female who has a long hospital course and was on mechanical ventilation for CAP-MRSA complicated by development of ARDS requiring mechanical ventilation, acute exacerbation of her systolic CHF, acute on chronic renal failure, MRSA bacteremia and generalized debility. Patient has shown gradual clinical improvement. 03/11: Upon encounter, she is saturating well on 3 L via nasal cannula. She says her shortness of breath continue to slowly but gradually improved. Denies chest pain. Her bacteremia has cleared. ID has recommended completing a total of 6 weeks of antibiotics from clearance (03/05/19) with end date of 04/16/19. 03/12: She denies acute complaints. We will have PT reevaluate and work with her again today. 03/13: No acute event overnight. She continues to show gradual improvement with physical therapy. Denies chest pain or shortness of breath. She does complain of generalized muscle aches today. Will recheck a CK and urine myoglobin as she is on daptomycin. 03/14: No acute event overnight. She continues to show gradual improvement with ambulation with physical therapy. 03/15: No acute issues. She continues to have gradual improvement with ambulation. Continue physical therapy while inpatient. Denies chest pain or sh ortness of breath. 03/16: No acute event overnight. She denies acute complaints. She has continued to improve with activity and ambulation. CK has trended up on Daptomycin. Will rediscuss with ID about antibiotic recommendations. 03/17: No acute event overnight. Patient says she continues to feel better. She continues to improve in terms of ambulation. Patient's CK has significantly been trending up while on daptomycin. CK today has gone up to more than 1000. Discussed with ID. Now that her acute renal failure has improved, will switch daptomycin to vancomycin. Patient could possibly complete IV antibiotics at home continues to improve over the next few days now that she will be switched to vancomycin. 03/18-no acute events in the last 24 hours. Patient is afebrile. Blood pressures are running low. Plan is to hold Lasix 60 mg p.o. twice daily for now. Today's CK level is pending. Audible in the bed communicating well. Expressing desire to go home and continue antibiotic therapy at home. 03/19/19-no acute events in the last 24 hours. Afebrile. Blood pressure is running low systolic blood pressure is around 90s. Plan to start her on IV fluids normal saline at 75 cc/h, to stop Entresto today. CK level also went up to 2333. Needs to recheck the CK levels including the labs tomorrow. Creatinine bumped up to 2.06. Reason For Visit: TUNNEL PICC/COPD EXACERBATION,CHF,RESPIRATORY Physical Exam Vital Signs: Temp Pulse Resp BP Pulse Ox 98.5 F 61 18 87/57 L 100 03/19/19 07:37 03/19/19 07:37 03/19/19 07:37 03/19/19 07:37 03/19/19 07:37 Intake & Output 03/18/19 03/19/19 03/20/19 06:59 06:59 06:59 Intake Total 1714 700 Balance 1714 700 Weight 86.9 kg 84.6 kg General appearance: PRESENT: no acute distress, obese Head exam: PRESENT: atraumatic Eye exam: PRESENT: PERRLA Mouth exam: PRESENT: moist, tongue midline Teeth exam: PRESENT: poor dentation Neck exam: ABSENT: carotid bruit, JVD, lymphadenopathy, thyromegaly Respiratory exam: PRESENT: clear to auscultation renu. ABSENT: rales, rhonchi, wheezes Cardiovascular exam: PRESENT: RRR. ABSENT: diastolic murmur, rubs, systolic murmur GI/Abdominal exam: PRESENT: normal bowel sounds, soft. ABSENT: distended, guarding, mass, organolmegaly, rebound, tenderness Rectal exam: PRESENT: deferred Extremities exam: PRESENT: full ROM. ABSENT: calf tenderness, clubbing, pedal edema Neurological exam: PRESENT: alert, awake, oriented to person, oriented to place, oriented to time, oriented to situation, CN II-XII grossly intact. ABSENT: motor sensory deficit Psychiatric exam: PRESENT: appropriate affect, normal mood. ABSENT: homicidal ideation, suicidal ideation Results Laboratory Results: 03/19/19 06:15 03/19/19 06:15 03/19/19 03/19/19 06:15 06:15 WBC 5.5 RBC 2.77 L Hgb 8.3 L Hct 25.1 L MCV 91 MCH 29.9 MCHC 33.0 RDW 19.7 H Plt Count 248 Seg Neutrophils % 62.5 Sodium 139.9 Potassium 4.2 Chloride 105 Carbon Dioxide 29 Anion Gap 6 BUN 21 H Creatinine 2.06 H Est GFR ( Amer) 31 L Glucose 95 Calcium 8.8 Magnesium 1.6 Total Bilirubin 0.7 AST 95 H Alkaline Phosphatase 135 H Total Protein 6.5 Albumin 2.9 L 02/08/19 02/08/19 02/08/19 04:06 04:06 05:30 Creatine Kinase Cancelled 33 CK-MB (CK-2) Cancelled Troponin I Cancelled NT-Pro-B Natriuret Pep Cancelled 02/08/19 02/11/19 02/13/19 05:45 03:18 01:22 Creatine Kinase CK-MB (CK-2) < 0.22 Troponin I 0.043 NT-Pro-B Natriuret Pep 7610 H 1970 H 50081 H 03/05/19 03/07/19 03/08/19 12:52 05:50 06:08 Creatine Kinase 39 24 L 23 L CK-MB (CK-2) Troponin I NT-Pro-B Natriuret Pep 03/13/19 03/16/19 03/16/19 17:20 09:00 18:00 Creatine Kinase 105 751 H CK-MB (CK-2) Troponin I 0.067 NT-Pro-B Natriuret Pep 03/17/19 03/18/19 05:10 07:55 Creatine Kinase 1260 H 2233 H CK-MB (CK-2) Troponin I NT-Pro-B Natriuret Pep Impressions: Chest CT 02/10/19 00:00 IMPRESSION: No pneumothorax. No pleural effusions. Bibasilar consolidation in both lower lobes. Slightly increased interstitial thickening, basilar predominance. Scattered pulmonary cysts and ground-glass opacities are again noted. Tubes and lines in expected positions. Head CT 03/05/19 00:00 IMPRESSION: No acute intracranial pathology. EVIDENCE OF ACUTE STROKE: NO. KUB X-Ray 03/05/19 00:00 IMPRESSION: Constipation. Guidance Ultrasound 03/07/19 00:00 IMPRESSION: Successful placement of a tunneled non-cuffed 5 [place] dual lumen PICC via the right internal jugular vein utilizing fluoroscopic and sonographic guidance. Central Venous Line 03/07/19 09:30 IMPRESSION: Successful placement of a tunneled non-cuffed 5 [place] dual lumen PICC via the right internal jugular vein utilizing fluoroscopic and sonographic guidance. Guidance Fluoroscopy 03/07/19 09:30 IMPRESSION: Successful placement of a tunneled non-cuffed 5 [place] dual lumen PICC via the right internal jugular vein utilizing fluoroscopic and sonographic guidance. Chest X-Ray 03/12/19 15:03 IMPRESSION: Persistent infiltrate most marked in the right lower lobe. No significant change from prior study. Assessment and Plan - Diagnosis (1) Acute on chronic respiratory failure with hypoxia Is this a current diagnosis for this admission?: Yes Plan: Improving. Multifactorial from CAP and ARDS requiring mechanical ventilation, acute exacerbation of her systolic CHF, acute on chronic renal failure 03/18/2019-patient admitted with acute on chronic respiratory failure with hypoxia pulse ox today 97% on 2 L. At the time of presentation she was admitted with community-acquired pneumonia and ARDS requiring mechanical ventilation. Status post intubation and extubation. Patient is presently receiving IV vancomycin. 03/19/2019-patient admitted with acute on chronic respiratory failure with hypoxia which was resolved. Pulse ox is 99% on 2 L. (2) MRSA bacteremia Is this a current diagnosis for this admission?: Yes Plan: 03.07.2019: Patient now has a tunneled PIC catheter for long-term antibiotic use. She will be on daptomycin as noted below with rifampin. She should be on a total of at least 6 weeks. The first initiation of any MRSA related antibiotics began approximately 02/11/2019 03.06.2019: Plan for tunneled picc catheter for long-term antibiotic. Recent cultures negative. Placed on Meropenem for coverage of possible tracheal colonization. Total of 7 days. 03.05.2019: Spoke with infectious disease. Their recommendation based on the patient's renal failure is to start daptomycin at 8-10 mg/kg daily in addition to rifampin 600 mg daily. Given the current recommendations a higher dose would seem to improve result in less resistance. Have ordered a baseline CK and have discontinued atorvastatin and concern for synergistic rhabdomlysis. The RIJ has been in place > one week and interventional radiology will be placing a tunneled catheter on Tuesday to allow the Eliquis effect to wear off. 03/13: Continue Daptomycin. 03/15: Completing IV antibiotics. Last day on 04/16/19. 03/17: Patient has developed significant elevation of CK from daptomycin. Discussed with ID. Switch daptomycin to vancomycin. 03/18-CK is 2060 yesterday and today CK levels are pending. Daptomycin was discontinued and patient is presently on vancomycin. Latest blood cultures are negative. Last day of antibiotic therapy will be 04/16/2019. 03/19/19-today CK level is 2333. To start on IV fluids normal saline at 75 cc/h and to recheck the labs tomorrow. Patient is presently on IV vancomycin. Latest blood cultures are negative plan is to repeat the blood cultures today. Last dose of antibiotic therapy will be 04/16/2019. Adjust Vanco trough is 15.3. Plan is to repeat the trough levels today. (3) Acute on chronic systolic (congestive) heart failure Is this a current diagnosis for this admission?: Yes Plan: Continue Lasix and Entresto. 03/18/2019 patient admitted with acute on chronic systolic heart failure blood pressures are running on the lower side plan is to hold Lasix for today. We will plan is to continue Entresto at this time. On examination patient is not in fluid overload. 03/19/2019-patient has history of acute on chronic systolic heart failure blood pressures are running low latest systolic blood pressure is 87 to give IV fluids normal saline at 75 cc/h and to hold her Entresto from today. to Watch for the fluid overload. (4) Acute on chronic renal failure Is this a current diagnosis for this admission?: Yes Plan: Creatinine at 1.9. 03/12: Reassess BMP tomorrow. 03/13: Crea better at 1.79. 03/17: Creatinine improved to 03/18/2019 latest serum creatinine is 1.83 with estimated GFR around 36. Plan is to repeat the labs tomorrow. Creatinine is between 1.2 to 1.3. 03/19/2019-serum creatinine today is 2.06. Baseline creatinine is between 1.2- 1.3. Acute on chronic kidney injury may be secondary to prerenal causes today. To start on IV fluids normal saline at 75 cc/h. To hold Entresto at this time. (5) Pneumonia Qualifiers: Pneumonia type: due to methicillin-resistant Staphylococcus aureus (MRSA) Is this a current diagnosis for this admission?: Yes Plan: Tracheal aspirate grew MRSA. On antibiotics. 03/18/2019 tracheal aspirate shows MRSA and vancomycin. 03/19/2019-tracheal aspirate came back as MRSA bacteremia on IV vancomycin. Last dose of IV vancomycin will be April 16, 2019. (6) Atrial fibrillation Qualifiers: Atrial fibrillation type: longstanding persistent Qualified Code(s): I48.11 - Longstanding persistent atrial fibrillation Is this a current diagnosis for this admission?: Yes Plan: Paroxysmal, not persistent, currently quiescent. Continue Eliquis and metoprolol. 03/18/2019-on examination today heart is in sinus rhythm. Patient has history of paroxysmal atrial fibrillation plan is to continue Eliquis and metoprolol. Heart rate today is in the 70s. (7) Obesity (BMI 30.0-34.9) Is this a current diagnosis for this admission?: No (8) AICD (automatic cardioverter/defibrillator) present Is this a current diagnosis for this admission?: Yes Plan: No deployment/discharges 03/19/2019-patient admitted with MRSA bacteremia on IV vancomycin latest blood cultures are negative plan is to repeat the blood cultures. If the patient has persistent fevers and the blood cultures come back positive again patient may have to go for removal of AICD (9) COPD (chronic obstructive pulmonary disease) Qualifiers: COPD type: unspecified COPD Qualified Code(s): J44.9 - Chronic obstructive pulmonary disease, unspecified Is this a current diagnosis for this admission?: Yes - Plan Summary Summary: Patient was downgraded from ICU on 03/08/19 after long stay for Community Acquired Pneumonia (MRSA) resulting in ARDS requiring intubation, acute exacerbation of her Systolic CHF, acute exacerbation of her chronic kidney failure, MRSA bacteremia, and generalized debility. Infectious disease was consulted and recommend IV antibiotics x 6weeks from date of clearance (03/05/19) with end date of 04/16/19. At that time, repeat cultures should be obtained. If she remains positive, she will then require consultation with CT surgery for removal of her AICD. Due to history of substance abuse, she is not a good candidate for outpatient infusion. Patient remains significantly debilitated; will consult PT/OT. Cardiology has been consulted. Dr. Ragsdale recommends resumption of renally dosed Eliquis. Continue pulmonary toilet, as needed nebulizer treatments, and ambulation for recovery of her pneumonia. She does utilize home O2. 03/09/2019- The patient is now on the medical floor. She is quite comfortable. Sepsis is resolved however infectious disease consultation suggest a total of 6 weeks IV antibiotics from the last negative blood culture for her MRSA bacteremia secondary to her MRSA pneumonia. Her pneumonitis and tracheitis from mechanical ventilation are resolved as well. Cardiology continues to follow for her ischemic cardiology with AICD. Her blood pressure still borderline low on her current regimen. This may need to be adjusted. Will discuss with cardiology. A. fib is controlled. She is back to her baseline oxygen r equirements. She appears to be back her close to her baseline chronic renal failure. We will continue current treatment plan as outlined 03/10/2019-patient is doing well. Plan course is for 6 weeks IV daptomycin. Stable from a cardiology standpoint. BUN and creatinine are slightly higher so I have decreased her furosemide to 60 mg twice daily will continue to monitor I's and O's, telemetry and vital signs
[2019-03-19] MEDS: FAMOTIDINE 20 MG TABLET PO SCH ×2 (10:45→21:35)
[2019-03-19] MEDS: VANCOMYCIN HCL 1,000 MG in DEXTROSE 5%-WATER 250 ML IV SCH (13:03)
[2019-03-19] MEDS: OXYCODONE HCL IR 5 MG TABLET PO PRN ×2 (13:19→20:21)
[2019-03-19] MEDS: PROMETHAZINE HCL INJ 25 MG/1 ML VIAL IV PRN (20:21)
[2019-03-19] MEDS: NORMAL SALINE INJ/PF 0.9% 10 ML SDV IV PRN (21:34)
[2019-03-19] MEDS: MELATONIN 5 MG TABLET PO SCH (21:34)
[2019-03-19] MEDS: SENNOSIDES/DOCUSATE 8.6-50 MG 1 EACH TABLET PO SCH (21:35)
[2019-03-20] MEDS: NORMAL SALINE 1000 ML 1,000 ML IV PRN ×2 (01:42→21:30)
[2019-03-20 07:41] LABS: ABSOLUTE BASOPHILS # (AUTO) 0.1 10^3/uL (0.0-0.2); ABSOLUTE LYMPHOCYTES (AUTO) 1.4 10^3/uL (0.5-4.7); ABSOLUTE MONOCYTES (AUTO) 0.6 10^3/uL (0.1-1.4); ABSOLUTE NEUT (AUTO) 2.8 10^3/uL (1.7-8.2); BASOPHILS % (AUTO) 1.2 % (0-2); EOSINOPHILS % (AUTO) 0.4 % (0-6); HEMATOCRIT 24.1 % (36.0-47.0); LYMPHOCYTES % (AUTO) 28.6 % (13-45); MEAN CORPUSCULAR HEMOGLOBIN 30.7 pg (27.0-33.4); MEAN CORPUSCULAR HGB CONC 33.1 g/dL (32.0-36.0); MEAN CORPUSCULAR VOLUME 93 fl (80-97); MONOCYTES % (AUTO) 12.8 % (3-13); PLATELET COUNT 237 10^3/uL (150-450); RED BLOOD COUNT 2.59 10^6/uL (3.72-5.28); TOTAL CELLS COUNTED % (AUTO) 100 %; WHITE BLOOD COUNT 4.9 10^3/uL (4.0-10.5)
[2019-03-20 07:47] LABS: ALBUMIN 2.8 g/dL (3.5-5.0); ALKALINE PHOSPHATASE 128 U/L (38-126); ANION GAP 6 (5-19); ASPARTATE AMINO TRANSFERASE 63 U/L (14-36); BILIRUBIN,DIRECT 0.6 mg/dL (0.0-0.4); BILIRUBIN,TOTAL 0.7 mg/dL (0.2-1.3); BLOOD UREA NITROGEN 19 mg/dL (7-20); CALCIUM 8.9 mg/dL (8.4-10.2); CARBON DIOXIDE 28 mmol/L (22-30); CHLORIDE 106 mmol/L (98-107); GLUCOSE 79 mg/dL (75-110); POTASSIUM 4.3 mmol/L (3.6-5.0); TOTAL PROTEIN 6.3 g/dL (6.3-8.2)
[2019-03-20] MEDS: ISOSORBIDE MONONITRATE 30 MG TAB.ER.24H PO SCH (10:50)
[2019-03-20] MEDS: APIXABAN 2.5 MG TABLET PO SCH ×2 (10:50→18:19)
[2019-03-20] MEDS: FAMOTIDINE 20 MG TABLET PO SCH ×2 (10:51→21:29)
[2019-03-20] MEDS: BUSPIRONE HCL 10 MG TABLET PO SCH ×2 (10:51→18:19)
[2019-03-20] MEDS: ASPIRIN 81 MG TABLET, ENT COATED PO SCH (10:56)
[2019-03-20] MEDS: POTASSIUM CHLORIDE 10 MEQ TABLET.ER PO SCH (10:56)
[2019-03-20] MEDS: PAROXETINE HCL 20 MG TABLET PO SCH (10:56)
[2019-03-20] MEDS: FAMOTIDINE INJ/PF 20 MG/2 ML SDV IV SCH ×2 (10:57→21:28)
[2019-03-20] MEDS: METOPROLOL SUCCINATE 25 MG TAB.SR.24H PO SCH ×2 (10:58→21:29)
[2019-03-20] MEDS: NORMAL SALINE 10 ML SDV (SCHEDULED) IV SCH ×2 (10:58→21:29)
[2019-03-20] MEDS: OXYCODONE HCL IR 5 MG TABLET PO PRN ×2 (11:13→18:19)
[2019-03-20] MEDS: VANCOMYCIN HCL 1,000 MG in DEXTROSE 5%-WATER 250 ML IV SCH (13:56)
--- NOTE | 2019-03-20 18:41 | PDOC PROGRESS REPORT ---
Subjective Progress Note for:: 03/20/19 Subjective:: Patient is a 48-year-old white female admitted for MRSA Community-acquired pneumonia complicated by ARDS requiring mechanical ventilation, acute on chronic systolic CHF, acute on chronic renal failure, MRSA bacteremia. She has since been extubated and is left ICU. Lasix was held intermittently for lower limit normal BP, given some IV fluids back. CPK elevated and creatinine elevated as well. Tunneled PIC catheter placed for long-term antibiotics after blood c ultures negative. Anti-MRSA antibiotic started on 02/11. Daptomycin started on 03/05 however CPK notably elevated 03/17, subsequently switched to vancomycin instead. Antibiotics to continue until 04/16/2019. No new complaints per patient today other than stating pure wick is rather uncomfortable at times. Reason For Visit: TUNNEL PICC/COPD EXACERBATION,CHF,RESPIRATORY Physical Exam Vital Signs: Temp Pulse Resp BP Pulse Ox 98.2 F 67 16 95/48 L 100 03/20/19 15:27 03/20/19 15:27 03/20/19 15:27 03/20/19 15:27 03/20/19 15:27 Intake & Output 03/19/19 03/20/19 03/21/19 06:59 06:59 06:59 Intake Total 700 2115 930 Balance 700 2115 930 Weight 84.6 kg 86.3 kg General appearance: PRESENT: no acute distress, cooperative, well-developed, well-nourished Head exam: PRESENT: atraumatic, normocephalic Mouth exam: PRESENT: moist Respiratory exam: PRESENT: clear to auscultation renu. ABSENT: rales, rhonchi, wheezes Cardiovascular exam: PRESENT: RRR. ABSENT: diastolic murmur, rubs, systolic murmur GI/Abdominal exam: PRESENT: normal bowel sounds, soft. ABSENT: distended, guarding, mass, organolmegaly, rebound, tenderness Extremities exam: PRESENT: pedal edema Neurological exam: PRESENT: alert, awake Psychiatric exam: PRESENT: appropriate affect, normal mood Skin exam: PRESENT: dry, intact, warm Results Laboratory Results: 03/20/19 06:30 03/20/19 06:30 03/20/19 03/20/19 06:30 06:30 WBC 4.9 RBC 2.59 L Hgb 8.0 L Hct 24.1 L MCV 93 MCH 30.7 MCHC 33.1 RDW 20.0 H Plt Count 237 Seg Neutrophils % 57.0 Sodium 140.1 Potassium 4.3 Chloride 106 Carbon Dioxide 28 Anion Gap 6 BUN 19 Creatinine 2.13 H Est GFR ( Amer) 30 L Glucose 79 Calcium 8.9 Magnesium 1.7 Total Bilirubin 0.7 AST 63 H Alkaline Phosphatase 128 H Total Protein 6.3 Albumin 2.8 L 02/08/19 02/08/19 02/08/19 04:06 04:06 05:30 Creatine Kinase Cancelled 33 CK-MB (CK-2) Cancelled Troponin I Cancelled NT-Pro-B Natriuret Pep Cancelled 02/08/19 02/11/19 02/13/19 05:45 03:18 01:22 Creatine Kinase CK-MB (CK-2) < 0.22 Troponin I 0.043 NT-Pro-B Natriuret Pep 7610 H 1970 H 39360 H 03/05/19 03/07/19 03/08/19 12:52 05:50 06:08 Creatine Kinase 39 24 L 23 L CK-MB (CK-2) Troponin I NT-Pro-B Natriuret Pep 03/13/19 03/16/19 03/16/19 17:20 09:00 18:00 Creatine Kinase 105 751 H CK-MB (CK-2) Troponin I 0.067 NT-Pro-B Natriuret Pep 03/17/19 03/18/19 03/20/19 05:10 07:55 06:30 Creatine Kinase 1260 H 2233 H 604 H CK-MB (CK-2) Troponin I NT-Pro-B Natriuret Pep Impressions: Chest CT 02/10/19 00:00 IMPRESSION: No pneumothorax. No pleural effusions. Bibasilar consolidation in both lower lobes. Slightly increased interstitial thickening, basilar predominance. Scattered pulmonary cysts and ground-glass opacities are again noted. Tubes and lines in expected positions. Head CT 03/05/19 00:00 IMPRESSION: No acute intracranial pathology. EVIDENCE OF ACUTE STROKE: NO. KUB X-Ray 03/05/19 00:00 IMPRESSION: Constipation. Guidance Ultrasound 03/07/19 00:00 IMPRESSION: Successful placement of a tunneled non-cuffed 5 Taiwanese dual lumen PICC via the right internal jugular vein utilizing fluoroscopic and sonographic guidance. Central Venous Line 03/07/19 09:30 IMPRESSION: Successful placement of a tunneled non-cuffed 5 Taiwanese dual lumen PICC via the right internal jugular vein utilizing fluoroscopic and sonographic guidance. Guidance Fluoroscopy 03/07/19 09:30 IMPRESSION: Successful placement of a tunneled non-cuffed 5 [place]ese dual lumen PICC via the right internal jugular vein utilizing fluoroscopic and sonographic guidance. Chest X-Ray 03/12/19 15:03 IMPRESSION: Persistent infiltrate most marked in the right lower lobe. No significant change from prior study. Assessment and Plan - Diagnosis (1) MRSA bacteremia Is this a current diagnosis for this admission?: Yes Plan: 03.07.2019: Patient now has a tunneled PIC catheter for long-term antibiotic use. She will be on daptomycin as noted below with rifampin. She should be on a total of at least 6 weeks. The first initiation of any MRSA related antibiotics began approximately 02/11/2019 03.06.2019: Plan for tunneled picc catheter for long-term antibiotic. Recent cultures negative. Placed on Meropenem for coverage of possible tracheal colonization. Total of 7 days. 03.05.2019: Spoke with infectious disease. Their recommendation based on the patient's renal failure is to start daptomycin at 8-10 mg/kg daily in addition to rifampin 600 mg daily. Given the current recommendations a higher dose would seem to improve result in less resistance. Have ordered a baseline CK and have discontinued atorvastatin and concern for synergistic rhabdomlysis. The RIJ has been in place > one week and interventional radiology will be placing a tunneled catheter on Tuesday to allow the Eliquis effect to wear off. 03/13: Continue Daptomycin. 03/15: Completing IV antibiotics. Last day on 04/16/19. 03/17: Patient has developed significant elevation of CK from daptomycin. Discussed with ID. Switch daptomycin to vancomycin. 03/18-CK is 2060 yesterday and today CK levels are pending. Daptomycin was discontinued and patient is presently on vancomycin. Latest blood cultures are negative. Last day of antibiotic therapy will be 04/16. 03/19/19-today CK level is 2333. To start on IV fluids normal saline at 75 cc/h and to recheck the labs tomorrow. Patient is presently on IV vancomycin. Latest blood cultures are negative plan is to repeat the blood cultures today. Last dose of antibiotic therapy will be 04/16/2019. Adjust Vanco trough is 15.3. Plan is to repeat the trough levels today. 03/20: IV vancomycin continued, following troughs. CPK is now going down with IV fluids. Can stop fluids in a.m. if creatinine lower. (2) Acute on chronic renal failure Is this a current diagnosis for this admission?: Yes Plan: Creatinine at 1.9. 03/12: Reassess BMP tomorrow. 03/13: Crea better at 1.79. 03/17: Creatinine improved to 03/18/2019 latest serum creatinine is 1.83 with estimated GFR around 36. Plan is to repeat the labs tomorrow. Creatinine is between 1.2 to 1.3. 03/19/2019-serum creatinine today is 2.06. Baseline creatinine is between 1.2- 1.3. Acute on chronic kidney injury may be secondary to prerenal causes today. To start on IV fluids normal saline at 75 cc/h. To hold Entresto at this time. 03/20: Renal failure likely due to rhabdomyolysis due to daptomycin. Continued on IV vancomycin, trending troughs. CPK with notable drop down to 604 though creatinine slightly higher at 2.13. Trend BMP daily, suspect gildardo soon (3) Acute on chronic respiratory failure with hypoxia Is this a current diagnosis for this admission?: Yes Plan: Improving. Multifactorial from CAP and ARDS requiring mechanical ventilation, acute exacerbation of her systolic CHF, acute on chronic renal failure 03/18/2019-patient admitted with acute on chronic respiratory failure with hypoxia pulse ox today 97% on 2 L. At the time of presentation she was admitted with community-acquired pneumonia and ARDS requiring mechanical ventilation. Status post intubation and extubation. Patient is presently receiving IV vancomycin. 03/19/2019-patient admitted with acute on chronic respiratory failure with hypoxia which was resolved. Pulse ox is 99% on 2 L. 03/20: Breathing well on 2 L supplemental oxygen. Wean oxygen to room air if possible. (4) Acute on chronic systolic (congestive) heart failure Is this a current diagnosis for this admission?: Yes Plan: Continue Lasix and Entresto. 03/18/2019 patient admitted with acute on chronic systolic heart failure blood pressures are running on the lower side plan is to hold Lasix for today. We will plan is to continue Entresto at this time. On examination patient is not in fluid overload. 03/19/2019-patient has history of acute on chronic systolic heart failure blood pressures are running low latest systolic blood pressure is 87 to give IV fluids normal saline at 75 cc/h and to hold her Entresto from today. to Watch for the fluid overload. 03/20: Closely monitor respiratory status while getting IV fluids and while holding Lasix. She is high risk for volume overload. Plan to stop IV fluids and restart Lasix at low dose tomorrow if creatinine is improved (5) Acute on chronic respiratory failure Qualifiers: Respiratory failure complication: hypoxia and hypercapnia Qualified Code(s): J96.21 - Acute and chronic respiratory failure with hypoxia; J96.22 - Acute and chronic respiratory failure with hypercapnia Is this a current diagnosis for this admission?: Yes (6) COPD (chronic obstructive pulmonary disease) Qualifiers: COPD type: unspecified COPD Qualified Code(s): J44.9 - Chronic obstructive pulmonary disease, unspecified Is this a current diagnosis for this admission?: Yes Plan: Continue breathing treatments as needed. Stable (7) Hyperlipidemia Qualifiers: Hyperlipidemia type: unspecified Qualified Code(s): E78.5 - Hyperlipidemia, unspecified Is this a current diagnosis for this admission?: Yes (8) Hypertension Qualifiers: Hypertension type: essential hypertension Qualified Code(s): I10 - Essential (primary) hypertension Is this a current diagnosis for this admission?: Yes (9) Pneumonia Qualifiers: Pneumonia type: due to methicillin-resistant Staphylococcus aureus (MRSA) Is this a current diagnosis for this admission?: Yes Plan: Tracheal aspirate grew MRSA. On antibiotics. 03/18/2019 tracheal aspirate shows MRSA and vancomycin. 03/19/2019-tracheal aspirate came back as MRSA bacteremia on IV vancomycin. Last dose of IV vancomycin will be April 16, 2019. 03/20: Continue IV vancomycin as above - Plan Summary Summary: Patient was downgraded from ICU on 03/08/19 after long stay for Community Acquired Pneumonia (MRSA) resulting in ARDS requiring intubation, acute exacerbation of her Systolic CHF, acute exacerbation of her chronic kidney failure, MRSA bacteremia, and generalized debility. Infectious disease was consulted and recommend IV antibiotics x 6weeks from date of clearance (03/05/19) with end date of 04/16/19. At that time, repeat cultures should be obtained. If she remains positive, she will then require consultation with CT surgery for removal of her AICD. Due to history of substance abuse, she is not a good candidate for outpatient infusion. Patient remains significantly debilitated; will consult PT/OT. Cardiology has been consulted. Dr. Ragsdale recommends resumption of renally dosed Eliquis. Continue pulmonary toilet, as needed nebulizer treatments, and ambulation for recovery of her pneumonia. She does utilize home O2. 03/09/2019- The patient is now on the medical floor. She is quite comfortable. Sepsis is resolved however infectious disease consultation suggest a total of 6 weeks IV antibiotics from the last negative blood culture for her MRSA bacteremia secondary to her MRSA pneumonia. Her pneumonitis and tracheitis from mechanical ventilation are resolved as well. Cardiology continues to follow for her ischemic cardiology with AICD. Her blood pressure still borderline low on her current regimen. This may need to be adjusted. Will discuss with cardiology. A. fib is controlled. She is back to her baseline oxygen requirements. She appears to be back her close to her baseline chronic renal failure. We will continue current treatment plan as outlined 03/10/2019-patient is doing well. Plan course is for 6 weeks IV daptomycin. Stable from a cardiology standpoint. BUN and creatinine are slightly higher so I have decreased her furosemide to 60 mg twice daily will continue to monitor I's and O's, telemetry and vital signs - Time Time Spent with patient: 25-34 minutes Anticipated discharge: SNF Within: within 72 hours - Inpatient Certification Medical Necessity: Significant Comorbidiites Make Outpatient Treatment Too Risky, Need Close Monitoring Due to Risk of Patient Decompensation, Need for IV Antibiotics
[2019-03-20] MEDS: NORMAL SALINE INJ/PF 0.9% 10 ML SDV IV PRN (21:29)
[2019-03-20] MEDS: SENNOSIDES/DOCUSATE 8.6-50 MG 1 EACH TABLET PO SCH (21:30)
[2019-03-20] MEDS: MELATONIN 5 MG TABLET PO SCH (21:30)
[2019-03-20] MEDS: PROMETHAZINE HCL INJ 25 MG/1 ML VIAL IV PRN (21:37)
[2019-03-20] MEDS: GABAPENTIN 100 MG CAPSULE PO PRN (21:37)
[2019-03-21] MEDS: OXYCODONE HCL IR 5 MG TABLET PO PRN ×5 (03:54→23:46)
[2019-03-21 07:04] LABS: ANION GAP 6 (5-19); BLOOD UREA NITROGEN 15 mg/dL (7-20); CALCIUM 8.8 mg/dL (8.4-10.2); CARBON DIOXIDE 27 mmol/L (22-30); CHLORIDE 108 mmol/L (98-107); GLUCOSE 85 mg/dL (75-110); POTASSIUM 4.3 mmol/L (3.6-5.0)
[2019-03-21] MEDS: ASPIRIN 81 MG TABLET, ENT COATED PO SCH (10:22)
[2019-03-21] MEDS: PAROXETINE HCL 20 MG TABLET PO SCH (10:22)
[2019-03-21] MEDS: BUSPIRONE HCL 10 MG TABLET PO SCH ×2 (10:22→18:55)
[2019-03-21] MEDS: METOPROLOL SUCCINATE 25 MG TAB.SR.24H PO SCH ×2 (10:22→21:39)
[2019-03-21] MEDS: FAMOTIDINE 20 MG TABLET PO SCH ×2 (10:23→21:39)
[2019-03-21] MEDS: APIXABAN 2.5 MG TABLET PO SCH ×2 (10:23→18:55)
[2019-03-21] MEDS: POTASSIUM CHLORIDE 10 MEQ TABLET.ER PO SCH (10:23)
[2019-03-21] MEDS: NORMAL SALINE 10 ML SDV (SCHEDULED) IV SCH ×2 (10:23→21:39)
[2019-03-21] MEDS: ISOSORBIDE MONONITRATE 30 MG TAB.ER.24H PO SCH (10:23)
[2019-03-21] MEDS: FAMOTIDINE INJ/PF 20 MG/2 ML SDV IV SCH ×2 (10:24→21:39)
[2019-03-21] MEDS: VANCOMYCIN HCL 1,000 MG in DEXTROSE 5%-WATER 250 ML IV SCH (13:52)
[2019-03-21 14:06] LABS: VANCOMYCIN,TROUGH 11.9 ug/mL (5.0-20.0)
--- NOTE | 2019-03-21 14:56 | PDOC PROGRESS REPORT ---
Subjective Reason For Visit: TUNNEL PICC/COPD EXACERBATION,CHF,RESPIRATORY Physical Exam Vital Signs: Temp Pulse Resp BP Pulse Ox 98 F 70 18 109/71 93 03/21/19 11:12 03/21/19 11:12 03/21/19 11:12 03/21/19 11:12 03/21/19 11:12 Intake & Output 03/20/19 03/21/19 03/22/19 06:59 06:59 06:59 Intake Total 2115 2580 236 Balance 2115 2580 236 Weight 86.3 kg 86.3 kg General appearance: PRESENT: no acute distress, well-developed, well-nourished Head exam: PRESENT: atraumatic, normocephalic Eye exam: PRESENT: conjunctiva pink Mouth exam: PRESENT: moist Respiratory exam: PRESENT: clear to auscultation renu. ABSENT: rales, rhonchi, wheezes Cardiovascular exam: PRESENT: RRR. ABSENT: diastolic murmur, rubs, systolic murmur GI/Abdominal exam: PRESENT: normal bowel sounds, soft. ABSENT: distended, guarding, mass, organolmegaly, rebound, tenderness Extremities exam: PRESENT: tenderness - Left ankle exquisitely tender, no signs of deformity or fracture Musculoskeletal exam: PRESENT: ambulatory Neurological exam: PRESENT: alert, awake Psychiatric exam: PRESENT: appropriate affect, normal mood Skin exam: PRESENT: dry, intact, warm Results Laboratory Results: 03/20/19 06:30 03/21/19 06:25 03/21/19 06:25 Sodium 141.4 Potassium 4.3 Chloride 108 H Carbon Dioxide 27 Anion Gap 6 BUN 15 Creatinine 1.79 H Est GFR ( Amer) 37 L Glucose 85 Calcium 8.8 02/08/19 02/08/19 02/08/19 04:06 04:06 05:30 Creatine Kinase Cancelled 33 CK-MB (CK-2) Cancelled Troponin I Cancelled NT-Pro-B Natriuret Pep Cancelled 02/08/19 02/11/19 02/13/19 05:45 03:18 01:22 Creatine Kinase CK-MB (CK-2) < 0.22 Troponin I 0.043 NT-Pro-B Natriuret Pep 7610 H 1970 H 26696 H 03/05/19 03/07/19 03/08/19 12:52 05:50 06:08 Creatine Kinase 39 24 L 23 L CK-MB (CK-2) Troponin I NT-Pro-B Natriuret Pep 03/13/19 03/16/19 03/16/19 17:20 09:00 18:00 Creatine Kinase 105 751 H CK-MB (CK-2) Troponin I 0.067 NT-Pro-B Natriuret Pep 03/17/19 03/18/19 03/20/19 05:10 07:55 06:30 Creatine Kinase 1260 H 2233 H 604 H CK-MB (CK-2) Troponin I NT-Pro-B Natriuret Pep Impressions: Chest CT 02/10/19 00:00 IMPRESSION: No pneumothorax. No pleural effusions. Bibasilar consolidation in both lower lobes. Slightly increased interstitial thickening, basilar predominance. Scattered pulmonary cysts and ground-glass opacities are again noted. Tubes and lines in expected positions. Head CT 03/05/19 00:00 IMPRESSION: No acute intracranial pathology. EVIDENCE OF ACUTE STROKE: NO. KUB X-Ray 03/05/19 00:00 IMPRESSION: Constipation. Guidance Ultrasound 03/07/19 00:00 IMPRESSION: Successful placement of a tunneled non-cuffed 5 Mexican dual lumen PICC via the right internal jugular vein utilizing fluoroscopic and sonographic guidance. Central Venous Line 03/07/19 09:30 IMPRESSION: Successful placement of a tunneled non-cuffed 5 Mexican dual lumen PICC via the right internal jugular vein utilizing fluoroscopic and sonographic guidance. Guidance Fluoroscopy 03/07/19 09:30 IMPRESSION: Successful placement of a tunneled non-cuffed 5 Mexican dual lumen PICC via the right internal jugular vein utilizing fluoroscopic and sonographic guidance. Chest X-Ray 03/12/19 15:03 IMPRESSION: Persistent infiltrate most marked in the right lower lobe. No significant change from prior study. Assessment and Plan - Diagnosis (1) MRSA bacteremia Is this a current diagnosis for this admission?: Yes Plan: 03.07.2019: Patient now has a tunneled PIC catheter for long-term antibiotic use. She will be on daptomycin as noted below with rifampin. She should be on a total of at least 6 weeks. The first initiation of any MRSA related antibiotics began approximately 02/11/2019 03.06.2019: Plan for tunneled picc catheter for long-term antibiotic. Recent cultures negative. Placed on Meropenem for coverage of possible tracheal colon ization. Total of 7 days. 03.05.2019: Spoke with infectious disease. Their recommendation based on the patient's renal failure is to start daptomycin at 8-10 mg/kg daily in addition to rifampin 600 mg daily. Given the current recommendations a higher dose would seem to improve result in less resistance. Have ordered a baseline CK and have discontinued atorvastatin and concern for synergistic rhabdomlysis. The RIJ has been in place > one week and interventional radiology will be placing a tunneled catheter on Tuesday to allow the Eliquis effect to wear off. 03/13: Continue Daptomycin. 03/15: Completing IV antibiotics. Last day on 04/16/19. 03/17: Patient has developed significant elevation of CK from daptomycin. Discussed with ID. Switch daptomycin to vancomycin. 03/18-CK is 2060 yesterday and today CK levels are pending. Daptomycin was discontinued and patient is presently on vancomycin. Latest blood cultures are negative. Last day of antibiotic therapy will be 04/16/2019. 03/19/19-today CK level is 2333. To start on IV fluids normal saline at 75 cc/h and to recheck the labs tomorrow. Patient is presently on IV vancomycin. Latest blood cultures are negative plan is to repeat the blood cultures today. Last dose of antibiotic therapy will be 04/16/2019. Adjust Vanco trough is 15.3. Plan is to repeat the trough levels today. 03/20: IV vancomycin continued, following troughs. CPK is now going down with IV fluids. Can stop fluids in a.m. if creatinine lower. 03/21: IV vancomycin to continue after discharge. Discussed this with patient and she states she is agreeable to coming back to the hospital for infusions each day. (2) Acute on chronic renal failure Is this a current diagnosis for this admission?: Yes Plan: Creatinine at 1.9. 03/12: Reassess BMP tomorrow. 03/13: Crea better at 1.79. 03/17: Creatinine improved to 03/18/2019 latest serum creatinine is 1.83 with estimated GFR around 36. Plan is to repeat the labs tomorrow. Creatinine is between 1.2 to 1.3. 03/19/2019-serum creatinine today is 2.06. Baseline creatinine is between 1.2- 1.5. Acute on chronic kidney injury may be secondary to prerenal causes today. To start on IV fluids normal saline at 75 cc/h. To hold Entresto at this time. -Renal failure likely due to rhabdomyolysis due to daptomycin. -Continued on IV vancomycin, trending troughs. -CPK with notable drop down to 604 though creatinine now lower and near/at baseline -Trend BMP daily (3) Acute on chronic respiratory failure with hypoxia Is this a current diagnosis for this admission?: Yes (4) Acute on chronic systolic (congestive) heart failure Is this a current diagnosis for this admission?: Yes (5) Acute on chronic respiratory failure Qualifiers: Respiratory failure complication: hypoxia and hypercapnia Qualified Code(s): J96.21 - Acute and chronic respiratory failure with hypoxia; J96.22 - Acute and chronic respiratory failure with hypercapnia Is this a current diagnosis for this admission?: Yes (6) COPD (chronic obstructive pulmonary disease) Qualifiers: COPD type: unspecified COPD Qualified Code(s): J44.9 - Chronic obstructive pulmonary disease, unspecified Is this a current diagnosis for this admission?: Yes (7) Hyperlipidemia Qualifiers: Hyperlipidemia type: unspecified Qualified Code(s): E78.5 - Hyperlipidemia, unspecified Is this a current diagnosis for this admission?: Yes (8) Hypertension Qualifiers: Hypertension type: essential hypertension Qualified Code(s): I10 - Essential (primary) hypertension Is this a current diagnosis for this admission?: Yes (9) Pneumonia Qualifiers: Pneumonia type: due to methicillin-resistant Staphylococcus aureus (MRSA) Is this a current diagnosis for this admission?: Yes (10) Gout flare Qualifiers: Gout site: ankle Gout etiology: idiopathic Laterality: left Qualified Code(s): M10.072 - Idiopathic gout, left ankle and foot Is this a current diagnosis for this admission?: Yes Plan: 03/20 patient had severe left ankle pain, gout highly suspected versus pseudogout; patient states she has no history of this Started oral prednisone 03/21 for 5 days as pain did not resolve May benefit from starting allopurinol after gout flare resolves, defer to PCP outpatient Cannot give NSAIDs or colchicine due to renal failure May consider asking for orthopedics consult and possible arthrocentesis with intra-articular steroid if pain does not improve on oral steroids - Plan Summary Summary: Patient was downgraded from ICU on 03/08/19 after long stay for Community Acquired Pneumonia (MRSA) resulting in ARDS requiring intubation, acute exacerbation of her Systolic CHF, acute exacerbation of her chronic kidney failure, MRSA bacteremia, and generalized debility. Infectious disease was consulted and recommend IV antibiotics x 6weeks from date of clearance (03/05/19) with end date of 04/16/19. At that time, repeat cultures should be obtained. If she remains positive, she will then require consultation with CT surgery for removal of her AICD. Due to history of substance abuse, she is not a good candidate for outpatient infusion. Patient remains significantly debilitated; will consult PT/OT. Cardiology has been consulted. Dr. Ragsdale recommends resumption of renally dosed Eliquis. Continue pulmonary toilet, as needed nebulizer treatments, and ambulation for recovery of her pneumonia. She does utilize home O2. 03/09/2019- The patient is now on the medical floor. She is quite comfortable. Sepsis is resolved however infectious disease consultation suggest a total of 6 weeks IV antibiotics from the last negative blood culture for her MRSA bacteremia secondary to her MRSA pneumonia. Her pneumonitis and tracheitis from mechanical ventilation are resolved as well. Cardiology continues to follow for her ischemic cardiology with AICD. Her blood pressure still borderline low on her current regimen. This may need to be adjusted. Will discuss with cardiolog gillian Bliss fib is controlled. She is back to her baseline oxygen requirements. She appears to be back her close to her baseline chronic renal failure. We will continue current treatment plan as outlined 03/10/2019-patient is doing well. Plan course is for 6 weeks IV daptomycin. Stable from a cardiology standpoint. BUN and creatinine are slightly higher so I have decreased her furosemide to 60 mg twice daily will continue to monitor I's and O's, telemetry and vital signs - Time Time Spent with patient: 25-34 minutes Medications reviewed and adjusted accordingly: Yes Within: within 72 hours - Inpatient Certification Medical Necessity: Significant Comorbidiites Make Outpatient Treatment Too Risky, Need Close Monitoring Due to Risk of Patient Decompensation, Need for IV Antibiotics
[2019-03-21] MEDS: PREDNISONE 20 MG TABLET PO SCH (18:55)
[2019-03-21] MEDS: PROMETHAZINE HCL INJ 25 MG/1 ML VIAL IV PRN (21:38)
[2019-03-21] MEDS: SENNOSIDES/DOCUSATE 8.6-50 MG 1 EACH TABLET PO SCH (21:39)
[2019-03-21] MEDS: MELATONIN 5 MG TABLET PO SCH (21:39)
[2019-03-22 07:26] LABS: ANION GAP 5 (5-19); BLOOD UREA NITROGEN 14 mg/dL (7-20); CALCIUM 9.1 mg/dL (8.4-10.2); CARBON DIOXIDE 27 mmol/L (22-30); CHLORIDE 108 mmol/L (98-107); GLUCOSE 118 mg/dL (75-110); POTASSIUM 5.1 mmol/L (3.6-5.0)
[2019-03-22] MEDS: OXYCODONE HCL IR 5 MG TABLET PO PRN ×3 (09:59→20:55)
[2019-03-22] MEDS: PREDNISONE 20 MG TABLET PO SCH (10:00)
[2019-03-22] MEDS: POTASSIUM CHLORIDE 10 MEQ TABLET.ER PO SCH (10:00)
[2019-03-22] MEDS: ISOSORBIDE MONONITRATE 30 MG TAB.ER.24H PO SCH (10:00)
[2019-03-22] MEDS: PAROXETINE HCL 20 MG TABLET PO SCH (10:01)
[2019-03-22] MEDS: FAMOTIDINE 20 MG TABLET PO SCH ×2 (10:01→22:03)
[2019-03-22] MEDS: NORMAL SALINE 10 ML SDV (SCHEDULED) IV SCH ×2 (10:01→22:03)
[2019-03-22] MEDS: APIXABAN 2.5 MG TABLET PO SCH ×2 (10:01→17:39)
[2019-03-22] MEDS: ASPIRIN 81 MG TABLET, ENT COATED PO SCH (10:01)
[2019-03-22] MEDS: BUSPIRONE HCL 10 MG TABLET PO SCH ×2 (10:01→17:39)
[2019-03-22] MEDS: METOPROLOL SUCCINATE 25 MG TAB.SR.24H PO SCH ×2 (10:04→22:02)
[2019-03-22] MEDS ORDERED: VANCOMYCIN HCL 1,250 MG in DEXTROSE 5%-WATER 250 ML IV SCH (12:00)
[2019-03-22] MEDS: VANCOMYCIN HCL 1,000 MG in DEXTROSE 5%-WATER 250 ML IV SCH (12:55)
[2019-03-22 13:18] LABS: ABSOLUTE LYMPHOCYTES (AUTO) 0.8 10^3/uL (0.5-4.7); ABSOLUTE MONOCYTES (AUTO) 0.2 10^3/uL (0.1-1.4); ABSOLUTE NEUT (AUTO) 7.3 10^3/uL (1.7-8.2); BASOPHILS % (AUTO) 0.3 % (0-2); HEMATOCRIT 25.7 % (36.0-47.0); HEMOGLOBIN 8.5 g/dL (12.0-15.5); LYMPHOCYTES % (AUTO) 9.9 % (13-45); MEAN CORPUSCULAR HEMOGLOBIN 30.1 pg (27.0-33.4); MEAN CORPUSCULAR HGB CONC 32.9 g/dL (32.0-36.0); MEAN CORPUSCULAR VOLUME 91 fl (80-97); MONOCYTES % (AUTO) 2.9 % (3-13); PLATELET COUNT 253 10^3/uL (150-450); RED BLOOD COUNT 2.82 10^6/uL (3.72-5.28); RED CELL DISTRIBUTION WIDTH 19.9 % (11.5-14.0); SEGMENTED NEUTROPHILS % (AUTO) 86.9 % (42-78); TOTAL CELLS COUNTED % (AUTO) 100 %; WHITE BLOOD COUNT 8.4 10^3/uL (4.0-10.5)
--- NOTE | 2019-03-22 16:28 | PDOC PROGRESS REPORT ---
Subjective Progress Note for:: 03/22/19 Subjective:: Patient is a 48-year-old female admitted for MRSA Community-acquired pneumonia complicated by ARDS requiring mechanical ventilation, acute on chronic systolic CHF, acute on chronic renal failure, MRSA bacteremia. She has since been extubated and is left ICU. Lasix was held intermittently for lower limit normal BP, given some IV fluids back. CPK elevated and creatinine elevated as well. Tunneled PIC catheter placed for long-term antibiotics after blood cultures negative. Anti-MRSA antibiotic started on 02/11. Daptomycin started on 03/05 however CPK notably elevated 03/17, subsequently switched to vancomycin instead. Antibiotics to continue until 04/16/2019. 03/22: Left ankle suspected gout pain significantly improved since starting prednisone. No new complaints per patient. Wants to go home and come back for infusions via her PICC. This is being arranged by social work. Uric acid was 6 and though this does not rule out gout. it is suggestive of possible pseudogout instead. Low-dose Lasix to restart as creatinine appears to be at baseline approximately 1.8. Reason For Visit: TUNNEL PICC/COPD EXACERBATION,CHF,RESPIRATORY Physical Exam Vital Signs: Temp Pulse Resp BP Pulse Ox 98.3 F 63 17 122/80 93 03/22/19 11:53 03/22/19 11:53 03/22/19 11:53 03/22/19 11:53 03/22/19 11:53 Intake & Output 03/21/19 03/22/19 03/23/19 06:59 06:59 06:59 Intake Total 2580 2570 220 Balance 2580 2570 220 Weight 86.3 kg 88.4 kg General appearance: PRESENT: no acute distress, well-developed, well-nourished Respiratory exam: PRESENT: clear to auscultation renu. ABSENT: rales, rhonchi, wheezes Cardiovascular exam: PRESENT: RRR. ABSENT: diastolic murmur, rubs, systolic murmur GI/Abdominal exam: PRESENT: normal bowel sounds, soft. ABSENT: distended, guarding, mass, organolmegaly, rebound, tenderness Neurological exam: PRESENT: alert, awake Psychiatric exam: PRESENT: appropriate affect, normal mood Skin exam: PRESENT: dry, intact, warm Results Laboratory Results: 03/22/19 12:50 03/22/19 05:48 03/21/19 03/22/19 03/22/19 12:44 05:48 12:50 WBC 8.4 RBC 2.82 L Hgb 8.5 L Hct 25.7 L MCV 91 MCH 30.1 MCHC 32.9 RDW 19.9 H Plt Count 253 Seg Neutrophils % 86.9 H Sodium 140.3 Potassium 5.1 H Chloride 108 H Carbon Dioxide 27 Anion Gap 5 BUN 14 Creatinine 1.85 H Est GFR ( Amer) 35 L Glucose 118 H Uric Acid 6.0 Calcium 9.1 02/08/19 02/08/19 02/08/19 04:06 04:06 05:30 Creatine Kinase Cancelled 33 CK-MB (CK-2) Cancelled Troponin I Cancelled NT-Pro-B Natriuret Pep Cancelled 02/08/19 02/11/19 02/13/19 05:45 03:18 01:22 Creatine Kinase CK-MB (CK-2) < 0.22 Troponin I 0.043 NT-Pro-B Natriuret Pep 7610 H 1970 H 98920 H 03/05/19 03/07/19 03/08/19 12:52 05:50 06:08 Creatine Kinase 39 24 L 23 L CK-MB (CK-2) Troponin I NT-Pro-B Natriuret Pep 03/13/19 03/16/19 03/16/19 17:20 09:00 18:00 Creatine Kinase 105 751 H CK-MB (CK-2) Troponin I 0.067 NT-Pro-B Natriuret Pep 03/17/19 03/18/19 03/20/19 05:10 07:55 06:30 Creatine Kinase 1260 H 2233 H 604 H CK-MB (CK-2) Troponin I NT-Pro-B Natriuret Pep Impressions: Chest CT 02/10/19 00:00 IMPRESSION: No pneumothorax. No pleural effusions. Bibasilar consolidation in both lower lobes. Slightly increased interstitial thickening, basilar predominance. Scattered pulmonary cysts and ground-glass opacities are again noted. Tubes and lines in expected positions. Head CT 03/05/19 00:00 IMPRESSION: No acute intracranial pathology. EVIDENCE OF ACUTE STROKE: NO. KUB X-Ray 03/05/19 00:00 IMPRESSION: Constipation. Guidance Ultrasound 03/07/19 00:00 IMPRESSION: Successful placement of a tunneled non-cuffed 5 [place] dual lumen PICC via the right internal jugular vein utilizing fluoroscopic and sonographic guidance. Central Venous Line 03/07/19 09:30 IMPRESSION: Successful placement of a tunneled non-cuffed 5 [place] dual lumen PICC via the right internal jugular vein utilizing fluoroscopic and sonographic guidance. Guidance Fluoroscopy 03/07/19 09:30 IMPRESSION: Successful placement of a tunneled non-cuffed 5 [place] dual lumen PICC via the right internal jugular vein utilizing fluoroscopic and sonographic guidance. Chest X-Ray 03/12/19 15:03 IMPRESSION: Persistent infiltrate most marked in the right lower lobe. No significant change from prior study. Assessment and Plan - Diagnosis (1) MRSA bacteremia Is this a current diagnosis for this admission?: Yes Plan: 03.07.2019: Patient now has a tunneled PIC catheter for long-term antibiotic use. She will be on daptomycin as noted below with rifampin. She should be on a total of at least 6 weeks. The first initiation of any MRSA related antibiotics began approximately 02/11/2019 03.06.2019: Plan for tunneled picc catheter for long-term antibiotic. Recent cultures negative. Placed on Meropenem for coverage of possible tracheal colonization. Total of 7 days. 03.05.2019: Spoke with infectious disease. Their recommendation based on the patient's renal failure is to start daptomycin at 8-10 mg/kg daily in addition to rifampin 600 mg daily. Given the current recommendations a higher dose would seem to improve result in less resistance. Have ordered a baseline CK and have discontinued atorvastatin and concern for synergistic rhabdomlysis. The RIJ has been in place > one week and interventional radiology will be placing a tunneled catheter on Tuesday to allow the Eliquis effect to wear off. 03/13: Continue Daptomycin. 03/15: Completing IV antibiotics. Last day on 04/16/19. 03/17: Patient has developed significant elevation of CK from daptomycin. Discussed with ID. Switch daptomycin to vancomycin. 03/18-CK is 2060 yesterday and today CK levels are pending. Daptomycin was discontinued and patient is presently on vancomycin. Latest blood cultures are negative. Last day of antibiotic therapy will be 04/16/2019. 03/19/19-today CK level is 2333. To start on IV fluids normal saline at 75 cc/h and to recheck the labs tomorrow. Patient is presently on IV vancomycin. Latest blood cultures are negative plan is to repeat the blood cultures today. Last dose of antibiotic therapy will be 04/16/2019. Adjust Vanco trough is 15.3. Plan is to repeat the trough levels today. 03/20: IV vancomycin continued, following troughs. CPK is now going down with IV fluids. Can stop fluids in a.m. if creatinine lower. 03/21: IV vancomycin to continue after discharge. Discussed this with patient and she states she is agreeable to coming back to the hospital for infusions each day. 03/22: Ongoing IV vancomycin, stable creatinine. Plan is for patient to be discharged with PICC line and come back to hospital for infusions. (2) Acute on chronic renal failure Is this a current diagnosis for this admission?: Yes (3) Acute on chronic respiratory failure with hypoxia Is this a current diagnosis for this admission?: Yes (4) Acute on chronic systolic (congestive) heart failure Is this a current diagnosis for this admission?: Yes (5) Acute on chronic respiratory failure Qualifiers: Respiratory failure complication: hypoxia and hypercapnia Qualified Code(s): J96.21 - Acute and chronic respiratory failure with hypoxia; J96.22 - Acute and chronic respiratory failure with hypercapnia Is this a current diagnosis for this admission?: Yes (6) COPD (chronic obstructive pulmonary disease) Qualifiers: COPD type: unspecified COPD Qualified Code(s): J44.9 - Chronic obstructive pulmonary disease, unspecified Is this a current diagnosis for this admission?: Yes (7) Hyperlipidemia Qualifiers: Hyperlipidemia type: unspecified Qualified Code(s): E78.5 - Hyperlipidemia, unspecified Is this a current diagnosis for this admission?: Yes (8) Hypertension Qualifiers: Hypertension type: essential hypertension Qualified Code(s): I10 - Essential (primary) hypertension Is this a current diagnosis for this admission?: Yes (9) Pneumonia Qualifiers: Pneumonia type: due to methicillin-resistant Staphylococcus aureus (MRSA) Is this a current diagnosis for this admission?: Yes (10) Gout flare Qualifiers: Gout site: ankle Gout etiology: idiopathic Laterality: left Qualified Code(s): M10.072 - Idiopathic gout, left ankle and foot Is this a current diagnosis for this admission?: Yes Plan: 03/20 patient had severe left ankle pain, gout highly suspected versus pseudogout; patient states she has no history of this Started oral prednisone 03/21 for 5 days with significant improvement May benefit from starting allopurinol after gout flare resolves, defer to PCP outpatient Cannot give NSAIDs or colchicine due to renal failure Uric acid was only 6 but this does not rule out acute gout, may be suggestive of pseudogout however May consider asking for orthopedics consult and possible arthrocentesis with intra-articular steroid if pain does not improve on oral steroids - Plan Summary Summary: Patient was downgraded from ICU on 03/08/19 after long stay for Community Acquired Pneumonia (MRSA) resulting in ARDS requiring intubation, acute exacerbation of her Systolic CHF, acute exacerbation of her chronic kidney failure, MRSA bacteremia, and generalized debility. Infectious disease was consulted and recommend IV antibiotics x 6weeks from date of clearance (03/05/19) with end date of 04/16/19. At that time, repeat cultures should be obtained. If she remains positive, she will then require consultation with CT surgery for removal of her AICD. Due to history of substance abuse, she is not a good candidate for outpatient infusion. Patient remains significantly debilitated; will consult PT/OT. Cardiology has been consulted. Dr. Ragsdale recommends resumption of renally dosed Eliquis. Continue pulmonary toilet, as needed nebulizer treatments, and ambulation for recovery of her pneumonia. She does utilize home O2. 03/09/2019- The patient is now on the medical floor. She is quite comfortable. Sepsis is resolved however infectious disease consultation suggest a total of 6 weeks IV antibiotics from the last negative blood culture for her MRSA bacteremia secondary to her MRSA pneumonia. Her pneumonitis and tracheitis from mechanical ventilation are resolved as well. Cardiology continues to follow for her ischemic cardiology with AICD. Her blood pressure still borderline low on her current regimen. This may need to be adjusted. Will discuss with cardiology. A. fib is controlled. She is back to her baseline oxygen requirements. She appears to be back her close to her baseline chronic renal failure. We will continue current treatment plan as outlined 03/10/2019-patient is doing well. Plan course is for 6 weeks IV daptomycin. Stable from a cardiology standpoint. BUN and creatinine are slightly higher so I have decreased her furosemide to 60 mg twice daily will continue to monitor I's and O's, telemetry and vital signs - Time Time Spent with patient: 15-24 minutes Medications reviewed and adjusted accordingly: Yes Anticipated discharge: Home Within: within 24 hours - Inpatient Certification Based on my medical assessment, after consideration of the patient's comorbidities, presenting symptoms, or acuity I expect that the services needed warrant INPATIENT care.: Yes I certify that my determination is in accordance with my understanding of Medicare's requirements for reasonable and necessary INPATIENT services [42 CFR 412.3e].: Yes Medical Necessity: Need for IV Antibiotics
[2019-03-22] MEDS: FUROSEMIDE 20 MG TABLET PO SCH (17:39)
[2019-03-22] MEDS: SENNOSIDES/DOCUSATE 8.6-50 MG 1 EACH TABLET PO SCH (22:02)
[2019-03-22] MEDS: MELATONIN 5 MG TABLET PO SCH (22:03)
[2019-03-23 06:06] LABS: ANION GAP 6 (5-19); BLOOD UREA NITROGEN 19 mg/dL (7-20); CALCIUM 8.8 mg/dL (8.4-10.2); CARBON DIOXIDE 26 mmol/L (22-30); CHLORIDE 110 mmol/L (98-107); GLUCOSE 130 mg/dL (75-110); POTASSIUM 4.2 mmol/L (3.6-5.0)
[2019-03-23] MEDS: OXYCODONE HCL IR 5 MG TABLET PO PRN ×3 (10:31→21:49)
[2019-03-23] MEDS: PREDNISONE 20 MG TABLET PO SCH (10:32)
[2019-03-23] MEDS: APIXABAN 2.5 MG TABLET PO SCH ×2 (10:33→18:10)
[2019-03-23] MEDS: FAMOTIDINE 20 MG TABLET PO SCH ×2 (10:33→21:50)
[2019-03-23] MEDS: PAROXETINE HCL 20 MG TABLET PO SCH (10:33)
[2019-03-23] MEDS: FUROSEMIDE 20 MG TABLET PO SCH (10:33)
[2019-03-23] MEDS: ASPIRIN 81 MG TABLET, ENT COATED PO SCH (10:33)
[2019-03-23] MEDS: METOPROLOL SUCCINATE 25 MG TAB.SR.24H PO SCH ×2 (10:34→21:50)
[2019-03-23] MEDS: BUSPIRONE HCL 10 MG TABLET PO SCH ×2 (10:34→18:10)
[2019-03-23] MEDS: ISOSORBIDE MONONITRATE 30 MG TAB.ER.24H PO SCH (10:34)
[2019-03-23] MEDS: NORMAL SALINE 10 ML SDV (SCHEDULED) IV SCH ×2 (10:35→21:50)
[2019-03-23] MEDS: VANCOMYCIN HCL 1,000 MG in DEXTROSE 5%-WATER 250 ML IV SCH (11:53)
--- NOTE | 2019-03-23 15:21 | PDOC DISCHARGE SUMMARY ---
Impression - Admit/DC Date/PCP Admission Date/Primary Care Provider: 02/08/19 04:24 YI SANCHEZ, Discharge Date: 03/23/19 - Discharge Diagnosis (1) MRSA bacteremia Is this a current diagnosis for this admission?: Yes (2) Acute on chronic renal failure Is this a current diagnosis for this admission?: Yes (3) Acute on chronic respiratory failure with hypoxia Is this a current diagnosis for this admission?: Yes (4) Acute on chronic systolic (congestive) heart failure Is this a current diagnosis for this admission?: Yes (5) Acute on chronic respiratory failure Is this a current diagnosis for this admission?: Yes (6) COPD (chronic obstructive pulmonary disease) Is this a current diagnosis for this admission?: Yes (7) Hyperlipidemia Is this a current diagnosis for this admission?: Yes (8) Hypertension Is this a current diagnosis for this admission?: Yes (9) Pneumonia Is this a current diagnosis for this admission?: Yes (10) Gout flare Is this a current diagnosis for this admission?: Yes - Assessment Summary: Patient was downgraded from ICU on 03/08/19 after long stay for Community Acquired Pneumonia (MRSA) resulting in ARDS requiring intubation, acute exacerbation of her Systolic CHF, acute exacerbation of her chronic kidney failure, MRSA bacteremia, and generalized debility. Infectious disease was consulted and recommend IV antibiotics x 6weeks from date of clearance (03/05/19) with end date of 04/16/19. At that time, repeat cultures should be obtained. If she remains positive, she will then require consultation with CT surgery for removal of her AICD. Due to history of substance abuse, she is not a good candidate for outpatient infusion. Patient remains significantly debilitated; will consult PT/OT. Cardiology has been consulted. Dr. Ragsdale recommends resumption of renally dosed Eliquis. Continue pulmonary toilet, as needed nebulizer treatments, and ambulation for recovery of her pneumonia. She does utilize home O2. 03/09/2019- The patient is now on the medical floor. She is quite comfortable. Sepsis is resolved however infectious disease consultation suggest a total of 6 weeks IV antibiotics from the last negative blood culture for her MRSA bacterem ia secondary to her MRSA pneumonia. Her pneumonitis and tracheitis from mechanical ventilation are resolved as well. Cardiology continues to follow for her ischemic cardiology with AICD. Her blood pressure still borderline low on her current regimen. This may need to be adjusted. Will discuss with cardiology. A. fib is controlled. She is back to her baseline oxygen requirements. She appears to be back her close to her baseline chronic renal failure. We will continue current treatment plan as outlined 03/10/2019-patient is doing well. Plan course is for 6 weeks IV daptomycin. Stable from a cardiology standpoint. BUN and creatinine are slightly higher so I have decreased her furosemide to 60 mg twice daily will continue to monitor I's and O's, telemetry and vital signs - Additional Information Resuscitation Status: Full Code Discharge Diet: Cardiac Discharge Activity: Activity As Tolerated Referrals: YI SANCHEZ DO [Primary Care Provider] - Follow up as needed Prescriptions: Prednisone [Deltasone 20 mg Tablet] 40 mg PO DAILY 2 Days #4 tablet Apixaban [Eliquis 2.5 mg Tablet] 2.5 mg PO BID #60 tablet Isosorbide Mononitrate [Imdur 30 mg Tablet.er] 30 mg PO DAILY #30 tab.er.24h Furosemide [Lasix 20 mg Tablet] 20 mg PO DAILY #30 tablet Melatonin [Melatonin 5 mg Tablet] 10 mg PO QHS #30 tablet Famotidine [Pepcid 20 mg Tablet] 20 mg PO Q12 #60 tablet Sennosides/Docusate 8.6-50 mg [Senna Plus Tablet] 1 each PO QHS #30 tablet Metoprolol Succinate [Toprol Xl 25 mg Tab.sr] 25 mg PO Q12 #60 tab.sr.24h Home Medications: Alprazolam [Xanax 0.5 mg Tablet] 0.5 mg PO Q6HP PRN 02/08/19 Aspirin [Ecotrin 81 mg EC Tablet] 81 mg PO DAILY 02/08/19 Atorvastatin Calcium [Lipitor 80 mg Tablet] 80 mg PO QHS 02/08/19 Buspirone HCl [Buspar 10 mg Tablet] 10 mg PO BID 02/08/19 Nitroglycerin [Nitrostat 0.4 mg (1/150 Gr) Tabs 25/Bottle] 0.4 mg SL Q5MP PRN 02/08/19 Paroxetine HCl [Paxil 20 mg Tablet] 20 mg PO DAILY 02/08/19 Apixaban [Eliquis 2.5 mg Tablet] 2.5 mg PO BID #60 tablet 01/24/20 Famotidine [Pepcid 20 mg Tablet] 20 mg PO Q12 #60 tablet 03/23/19 Furosemide [Lasix 20 mg Tablet] 20 mg PO DAILY #30 tablet 03/23/19 Isosorbide Mononitrate [Imdur 30 mg Tablet.er] 30 mg PO DAILY #30 tab.er.24h 03/23/19 Melatonin [Melatonin 5 mg Tablet] 10 mg PO QHS #30 tablet 03/23/19 Metoprolol Succinate [Toprol Xl 25 mg Tab.sr] 25 mg PO Q12 #60 tab.sr.24h 03/23/19 Prednisone [Deltasone 20 mg Tablet] 40 mg PO DAILY 2 Days #4 tablet 03/23/19 Sennosides/Docusate 8.6-50 mg [Senna Plus Tablet] 1 each PO QHS #30 tablet 03/23/19 History of Present Illiness History of Present Illness: Patient is a 48-year-old female admitted for MRSA Community-acquired pneumonia complicated by ARDS requiring mechanical ventilation, acute on chronic systolic CHF, acute on chronic renal failure, MRSA bacteremia. She has since been extubated and is left ICU. Lasix was held intermittently for lower limit normal BP, given some IV fluids back. CPK elevated and creatinine elevated as well. Tunneled PIC catheter placed for long-term antibiotics after blood cultures negative. Anti-MRSA antibiotic started on 02/11. Daptomycin started on 03/05 however CPK notably elevated 03/17, subsequently switched to vancomycin instead. Antibiotics to continue until 04/16/2019. PICC placed, outpt abx arranged by social work. Left ankle suspected gout pain significantly improved since starting prednisone. No new complaints per patient. Wants to go home and come back for infusions via her PICC. This is being arranged by social work. Uric acid was 6 and though this does not rule out gout. it is suggestive of possible pseudogout instead. Low-dose Lasix to restart as creatinine appears to be at baseline approximately 1.8. Patient using baseline 2L [place] O2. Hospital Course Hospital Course: (1) MRSA bacteremia Is this a current diagnosis for this admission?: Yes Plan: 03.07.2019: Patient now has a tunneled PIC catheter for long-term antibiotic use. She will be on daptomycin as noted below with rifampin. She should be on a total of at least 6 weeks. The first initiation of any MRSA related antibiotics began approximately 02/11/2019 03.06.2019: Plan for tunneled picc catheter for long-term antibiotic. Recent cultures negative. Placed on Meropenem for coverage of possible tracheal colon ization. Total of 7 days. 03.05.2019: Spoke with infectious disease. Their recommendation based on the patient's renal failure is to start daptomycin at 8-10 mg/kg daily in addition to rifampin 600 mg daily. Given the current recommendations a higher dose would seem to improve result in less resistance. Have ordered a baseline CK and have discontinued atorvastatin and concern for synergistic rhabdomlysis. The RIJ has been in place > one week and interventional radiology will be placing a tunneled catheter on Tuesday to allow the Eliquis effect to wear off. 03/13: Continue Daptomycin. 03/15: Completing IV antibiotics. Last day on 04/16/19. 03/17: Patient has developed significant elevation of CK from daptomycin. Discussed with ID. Switch daptomycin to vancomycin. 03/18-CK is 2060 yesterday and today CK levels are pending. Daptomycin was discontinued and patient is presently on vancomycin. Latest blood cultures are negative. Last day of antibiotic therapy will be 04/16/2019. 03/19/19-today CK level is 2333. To start on IV fluids normal saline at 75 cc/h and to recheck the labs tomorrow. Patient is presently on IV vancomycin. Latest blood cultures are negative plan is to repeat the blood cultures today. Last dose of antibiotic therapy will be 04/16/2019. Adjust Vanco trough is 15.3. Plan is to repeat the trough levels today. 03/20: IV vancomycin continued, following troughs. CPK is now going down with IV fluids. Can stop fluids in a.m. if creatinine lower. 03/21: IV vancomycin to continue after discharge. Discussed this with patient and she states she is agreeable to coming back to the hospital for infusions each day. 03/22: Ongoing IV vancomycin, stable creatinine. Plan is for patient to be discharged with PICC line and come back to hospital for infusions. 03/23: Cleared for DC home with planned return to hospital daily for IV Vancomycin infusions. Pt is in full agreement with this plan and voiced she has a clear understanding of the plan. (2) Acute on chronic renal failure - resolved Is this a current diagnosis for this admission?: Yes (3) Acute on chronic respiratory failure with hypoxia - resolved Is this a current diagnosis for this admission?: Yes (4) Acute on chronic systolic (congestive) heart failure Is this a current diagnosis for this admission?: Yes (5) Acute on chronic respiratory failure - resolved Qualifiers: Respiratory failure complication: hypoxia and hypercapnia Qualified Code(s): J96.21 - Acute and chronic respiratory failure with hypoxia; J96.22 - Acute and chronic respiratory failure with hypercapnia Is this a current diagnosis for this admission?: Yes (6) COPD (chronic obstructive pulmonary disease) Qualifiers: COPD type: unspecified COPD Qualified Code(s): J44.9 - Chronic obstructive pulmonary disease, unspecified Is this a current diagnosis for this admission?: Yes (7) Hyperlipidemia Qualifiers: Hyperlipidemia type: unspecified Qualified Code(s): E78.5 - Hyperlipidemia, unspecified Is this a current diagnosis for this admission?: Yes (8) Hypertension Qualifiers: Hypertension type: essential hypertension Qualified Code(s): I10 - Essential (primary) hypertension Is this a current diagnosis for this admission?: Yes (9) Pneumonia Qualifiers: Pneumonia type: due to methicillin-resistant Staphylococcus aureus (MRSA) Is this a current diagnosis for this admission?: Yes (10) Gout flare - resolving Qualifiers: Gout site: ankle Gout etiology: idiopathic Laterality: left Qualified Code(s): M10.072 - Idiopathic gout, left ankle and foot Is this a current diagnosis for this admission?: Yes Plan: 03/20 patient had severe left ankle pain, gout highly suspected versus pseudogout; patient states she has no history of this Started oral prednisone 03/21 for 5 days with significant improvement May benefit from starting allopurinol after gout flare resolves, defer to PCP outpatient Cannot give NSAIDs or colchicine due to renal failure Uric acid was only 6 but this does not definitively rule out acute gout, may be suggestive of pseudogout however May consider orthopedics consult outpt and possible arthrocentesis with intra- articular steroid if pain comes back Physical Exam Vital Signs: Temp Pulse Resp BP Pulse Ox 98.1 F 60 18 109/64 100 03/23/19 11:46 03/23/19 11:46 03/23/19 11:46 03/23/19 11:46 03/23/19 11:46 Intake & Output 03/22/19 03/23/19 03/24/19 06:59 06:59 06:59 Intake Total 2570 1590 120 Balance 2570 1590 120 Weight 88.4 kg 86 kg General appearance: PRESENT: no acute distress, well-developed, well-nourished Head exam: PRESENT: atraumatic, normocephalic Eye exam: PRESENT: conjunctiva pink Mouth exam: PRESENT: moist Respiratory exam: PRESENT: clear to auscultation renu. ABSENT: rales, rhonchi, wheezes Cardiovascular exam: PRESENT: RRR. ABSENT: diastolic murmur, rubs, systolic murmur GI/Abdominal exam: PRESENT: normal bowel sounds, soft. ABSENT: distended, guarding, mass, organolmegaly, rebound, tenderness Neurological exam: PRESENT: alert, awake Psychiatric exam: PRESENT: appropriate affect, normal mood Skin exam: PRESENT: dry, intact, warm Results Laboratory Results: WBC 8.4 10^3/uL (4.0-10.5) 03/22/19 12:50 RBC 2.82 10^6/uL (3.72-5.28) L 03/22/19 12:50 Hgb 8.5 g/dL (12.0-15.5) L 03/22/19 12:50 Hct 25.7 % (36.0-47.0) L 03/22/19 12:50 MCV 91 fl (80-97) 03/22/19 12:50 MCH 30.1 pg (27.0-33.4) 03/22/19 12:50 MCHC 32.9 g/dL (32.0-36.0) 03/22/19 12:50 RDW 19.9 % (11.5-14.0) H 03/22/19 12:50 Plt Count 253 10^3/uL (150-450) 03/22/19 12:50 Lymph % (Auto) 9.9 % (13-45) L 03/22/19 12:50 [place] % (Auto) 2.9 % (3-13) L 03/22/19 12:50 Eos % (Auto) 0.0 % (0-6) 03/22/19 12:50 Baso % (Auto) 0.3 % (0-2) 03/22/19 12:50 Absolute Neuts (auto) 7.3 10^3/uL (1.7-8.2) 03/22/19 12:50 Absolute Lymphs (auto) 0.8 10^3/uL (0.5-4.7) 03/22/19 12:50 Absolute Monos (auto) 0.2 10^3/uL (0.1-1.4) 03/22/19 12:50 Absolute Eos (auto) 0.0 10^3/uL (0.0-0.6) 03/22/19 12:50 Absolute Basos (auto) 0.0 10^3/uL (0.0-0.2) 03/22/19 12:50 Total Counted 100 03/08/19 06:08 Seg Neutrophils % 86.9 % (42-78) H 03/22/19 12:50 Seg Neuts % (Manual) 62 % (42-78) 03/08/19 06:08 Band Neutrophils % 3 % (3-5) 02/18/19 05:40 Lymphocytes % (Manual) 26 % (13-45) 03/08/19 06:08 Atypical Lymphs % 2 % (0) 03/08/19 06:08 Monocytes % (Manual) 9 % (3-13) 03/08/19 06:08 Eosinophils % (Manual) 0 % (0-6) 03/08/19 06:08 Basophils % (Manual) 0 % (0-2) 03/08/19 06:08 Metamyelocytes % 1 % (0-1) 03/08/19 06:08 Abs Neuts (Manual) 2.0 10^3/uL (1.7-8.2) 03/08/19 06:08 Abs Lymphs (Manual) 0.9 10^3/uL (0.5-4.7) 03/08/19 06:08 Abs Monocytes (Manual) 0.3 10^3/uL (0.1-1.4) 03/08/19 06:08 Absolute Eos (Manual) 0.0 10^3/uL (0.0-0.6) 03/08/19 06:08 Abs Basophils (Manual) 0.0 10^3/uL (0.0-0.2) 03/08/19 06:08 Nucleated RBCs 1 /100 WBC (0) 02/13/19 06:51 Toxic Granulation 1+ 02/23/19 06:45 Toxic Vacuolation PRESENT 02/09/19 04:03 Platelet Estimate Cancelled 02/08/19 03:24 Platelet Comment ADEQUATE 03/08/19 06:08 Polychromasia SLIGHT 02/23/19 06:45 Hypochromasia 2+ 02/11/19 03:18 Poikilocytosis SLIGHT 03/08/19 06:08 Anisocytosis 2+ 03/08/19 06:08 Tear Drop Cells SLIGHT 02/23/19 06:45 Ovalocytes SLIGHT 03/08/19 06:08 Stomatocytes SLIGHT 02/23/19 06:45 Schistocytes SLIGHT 02/20/19 03:55 PT 15.4 SEC (11.4-15.4) 03/05/19 12:52 INR 1.21 03/05/19 12:52 APTT 32.6 SEC (23.5-35.8) 03/05/19 12:52 Fibrinogen 296 mg/dL (209-497) 02/17/19 14:55 Carbonic Acid 1.40 mmol/L (1.05-1.35) H 02/27/19 10:15 HCO3/H2CO3 Ratio 23:1 02/27/19 10:15 ABG pH 7.47 (7.35-7.45) H 02/27/19 10:15 ABG pCO2 46.6 mmHg (35-45) H 02/27/19 10:15 ABG pO2 62.3 mmHg (80-100) L 02/27/19 10:15 ABG HCO3 32.8 mmol/L (20-24) H 02/27/19 10:15 ABG Total CO2 34.2 mmol/L (21-25) H 02/27/19 10:15 ABG O2 Saturation 92.9 % (94-98) L 02/27/19 10:15 ABG Base Excess 8.1 mmol/L 02/27/19 10:15 FiO2 40% 02/27/19 10:15 Sodium 142.0 mmol/L (137-145) 03/23/19 05:20 Potassium 4.2 mmol/L (3.6-5.0) 03/23/19 05:20 Chloride 110 mmol/L (98-107) H 03/23/19 05:20 Carbon Dioxide 26 mmol/L (22-30) 03/23/19 05:20 Anion Gap 6 (5-19) 03/23/19 05:20 BUN 19 mg/dL (7-20) 03/23/19 05:20 Creatinine 1.71 mg/dL (0.52-1.25) H 03/23/19 05:20 Est GFR ( Amer) 39 (>60) L 03/23/19 05:20 Est GFR (Non-Af Amer) Cancelled 02/08/19 04:06 Est GFR (MDRD) Non-Af 32 (>60) L 03/23/19 05:20 Glucose 130 mg/dL (75-110) H 03/23/19 05:20 POC Glucose 102 mg/dL (70-110) 03/08/19 20:45 Lactic Acid 1.0 mmol/L (0.7-2.1) 03/05/19 12:52 Lactic Acid (Sepsis) 7.4 mmol/L (0.7-2.1) H 02/12/19 08:51 Uric Acid 6.0 mg/dL (2.5-7.5) 03/21/19 12:44 Calcium 8.8 mg/dL (8.4-10.2) 03/23/19 05:20 Phosphorus 4.6 mg/dL (2.5-4.5) H 03/08/19 06:08 Magnesium 1.7 mg/dL (1.6-2.3) 03/20/19 06:30 Total Bilirubin 0.7 mg/dL (0.2-1.3) 03/20/19 06:30 Direct Bilirubin 0.6 mg/dL (0.0-0.4) H 03/20/19 06:30 Neonat Total Bilirubin Not Reportable 03/20/19 06:30 Neonat Direct Bilirubin Not Reportable 03/20/19 06:30 Neonat Indirect Bili Not Reportable 03/20/19 06:30 AST 63 U/L (14-36) H 03/20/19 06:30 ALT 51 U/L (<35) 03/20/19 06:30 Alkaline Phosphatase 128 U/L (38-126) H 03/20/19 06:30 Ammonia 9.3 umol/L (9-33) 02/19/19 02:55 Creatine Kinase 604 U/L (30-135) H 03/20/19 06:30 CK-MB (CK-2) < 0.22 ng/mL (<4.55) 02/08/19 05:45 Troponin I 0.067 ng/mL 03/16/19 18:00 NT-Pro-B Natriuret Pep 10328 pg/mL (<125) H 02/13/19 01:22 Total Protein 6.3 g/dL (6.3-8.2) 03/20/19 06:30 Albumin 2.8 g/dL (3.5-5.0) L 03/20/19 06:30 Triglycerides 47 mg/dL (<150) 02/08/19 05:30 EGFR Cancelled 02/08/19 04:06 TSH 1.34 uIU/mL (0.47-4.68) 02/11/19 03:18 Free T4 1.69 ng/dL (0.78-2.19) 02/11/19 03:18 Free T3 pg/mL 2.48 pg/mL (2.77-5.27) L 02/11/19 03:18 Urine Color YELLOW 02/13/19 20:32 Urine Appearance CLEAR 02/13/19 20:32 Urine pH 6.0 (5.0-9.0) 02/13/19 20:32 Ur Specific [place] 1.020 02/13/19 20:32 Urine Protein 100 mg/dL (NEGATIVE) H 02/13/19 20:32 Urine Glucose (UA) 50 mg/dL (NEGATIVE) H 02/13/19 20:32 Urine Ketones NEGATIVE mg/dL (NEGATIVE) 02/13/19 20:32 Urine Blood SMALL (NEGATIVE) H 02/13/19 20:32 Urine Nitrite NEGATIVE (NEGATIVE) 02/13/19 20:32 Urine Nitrite (Reflex) NEGATIVE (NEGATIVE) 02/12/19 04:30 Urine Bilirubin NEGATIVE (NEGATIVE) 02/13/19 20:32 Urine Urobilinogen 2.0 mg/dL (<2.0) H 02/13/19 20:32 Ur Leukocyte Esterase NEGATIVE (NEGATIVE) 02/13/19 20:32 Leukocyte Esterase Rfl NEGATIVE (NEGATIVE) 02/12/19 04:30 Urine WBC (Auto) 2 /HPF 02/13/19 20:32 Urine RBC (Auto) 5 /HPF 02/13/19 20:32 U Hyaline Cast (Auto) 1 /LPF 02/12/19 04:30 Urine WBC (Reflex) 2 /HPF 02/12/19 04:30 Squamous Epi Cells Auto <1 /HPF 02/12/19 04:30 Urine Mucus (Auto) RARE /LPF 02/13/19 20:32 Urine Myoglobin <2 ng/mL (0-13) 03/14/19 01:30 Urine Ascorbic Acid NEGATIVE (NEGATIVE) 02/13/19 20:32 Stool Occult Blood POSITIVE (NEGATIVE) 02/17/19 14:55 Time Trough Drawn 1244 03/21/19 12:44 Vancomycin Trough 11.9 ug/mL (5.0-20.0) 03/21/19 12:44 Urine Opiates Screen NEGATIVE 02/12/19 09:28 Urine Methadone Screen NEGATIVE 02/12/19 09:28 Ur Barbiturates Screen NEGATIVE 02/12/19 09:28 Ur Phencyclidine Scrn NEGATIVE 02/12/19 09:28 Ur Amphetamines Screen NEGATIVE 02/12/19 09:28 U Benzodiazepines Scrn UNCONFIRMED POSITIVE 02/12/19 09:28 Urine Cocaine Screen NEGATIVE 02/12/19 09:28 U Marijuana (THC) Screen UNCONFIRMED POSITIVE 02/12/19 09:28 c-ANCA Antibody <1:20 titer (Neg:<1:20) 02/12/19 08:51 Anti-Proteinase 3 Intrp <3.5 U/mL (0.0-3.5) 02/12/19 08:51 Atypical p-ANCA <1:20 titer (Neg:<1:20) 02/12/19 08:51 p-ANCA Antibody <1:20 titer (Neg:<1:20) 02/12/19 08:51 Myeloperoxidase Ab <9.0 U/mL (0.0-9.0) 02/12/19 08:51 HIV-1 RNA Qnt (RT-PCR) <20 copies/mL (.) 03/07/19 05:50 HIV-1 RNA (PCR) log10 TNP 03/07/19 05:50 HIV 1&2 Antibody NEGATIVE (NEGATIVE) 03/07/19 05:50 Slides for Path Review Cancelled 02/08/19 03:24 Blood Type B POSITIVE 02/27/19 06:55 Blood Type Confirm B POSITIVE 02/27/19 06:55 Antibody Screen NEGATIVE 02/27/19 06:55 Crossmatch See Detail 02/27/19 06:55 02/08/19 02/08/19 02/11/19 04:06 05:45 03:18 CK-MB (CK-2) Cancelled < 0.22 Troponin I Cancelled 0.043 NT-Pro-B Natriuret Pep Cancelled 7610 H 1970 H 02/13/19 03/16/19 01:22 18:00 CK-MB (CK-2) Troponin I 0.067 NT-Pro-B Natriuret Pep 78254 H Impressions: Chest X-Ray 02/08/19 00:00 IMPRESSION: Slight advancement of endotracheal tube. Otherwise no change. Chest X-Ray 02/08/19 00:00 IMPRESSION: NO PNEUMOTHORAX FOLLOWING CENTRAL LINE PLACEMENT. OTHERWISE NO CHANGE. Chest X-Ray 02/08/19 03:15 IMPRESSION: Cardiomegaly. Endotracheal and enteric tubes are in place. Postsurgical changes of the mediastinum. Airspace opacities right lung base. copyright 2010 [employer]- All Rights Reserved Chest CT 02/10/19 00:00 IMPRESSION: No pneumothorax. No pleural effusions. Bibasilar consolidation in both lower lobes. Slightly increased interstitial thickening, basilar predominance. Scattered pulmonary cysts and ground-glass opacities are again noted. Tubes and lines in expected positions. Chest X-Ray 02/12/19 00:00 IMPRESSION: 1. Bilateral perihilar airspace consolidation which may be due to edema, atelectasis or pneumonia. 2. Marked cardiomegaly. 3. Remote postsurgical changes of the mediastinum. 4. Life support lines and tubes as described above. Chest X-Ray 02/13/19 06:00 IMPRESSION: STABLE APPEARANCE OF THE CHEST. SUPPORT DEVICES UNCHANGED. Chest X-Ray 02/14/19 06:00 IMPRESSION: Mildly worsened bibasilar predominant opacities, likely edema although infection not excluded. Stable support lines and tubes as above. Chest X-Ray 02/15/19 03:06 IMPRESSION: Diffuse persistent but improving interstitial and alveolar opacities throughout both lungs. Stable cardiomegaly. Chest X-Ray 02/16/19 06:00 IMPRESSION: Unchanged radiographic appearance of the chest. KUB X-Ray 02/16/19 15:49 IMPRESSION: The tip and side hole of the enteric tube project within the gastric lumen. Chest X-Ray 02/17/19 06:00 IMPRESSION: Findings most consistent with congestive failure an asymmetric pulmonary edema. Slightly improved. SUPPORT DEVICE(S) IN EXPECTED LOCATIONS. Chest X-Ray 02/18/19 00:00 IMPRESSION: New left IJ line with the tip overlying the proximal SVC. Consider advancement 3-4 cm. KUB X-Ray 02/18/19 00:00 IMPRESSION: NG tube tip in the fundus of the stomach. Chest X-Ray 02/19/19 06:00 IMPRESSION: Tubes and lines in good positioning. Stable marked cardiomegaly and mild residual alveolar and interstitial infiltrates Chest X-Ray 02/20/19 00:00 IMPRESSION: STABLE APPEARANCE OF THE CHEST. SUPPORT DEVICES UNCHANGED. Chest X-Ray 02/25/19 00:00 IMPRESSION: Cardiomegaly with diffuse interstitial edema copyright 2011 [employer]- All Rights Reserved Chest X-Ray 02/26/19 13:22 IMPRESSION: Tubes and catheters as described. Cardiomegaly with pulmonary ed jessica that shows slight improvement. KUB X-Ray 02/26/19 13:25 IMPRESSION: NG tube tip overlies body of stomach, side port near the GE junction above the diaphragm. Chest X-Ray 03/03/19 00:00 IMPRESSION: Interval extubation with improvement in bilateral edema and/or pneumonia. Head CT 03/05/19 00:00 IMPRESSION: No acute intracranial pathology. EVIDENCE OF ACUTE STROKE: NO. KUB X-Ray 03/05/19 00:00 IMPRESSION: Constipation. Guidance Ultrasound 03/07/19 00:00 IMPRESSION: Successful placement of a tunneled non-cuffed 5 [place] dual lumen PICC via the right internal jugular vein utilizing fluoroscopic and sonographic guidance. Central Venous Line 03/07/19 09:30 IMPRESSION: Successful placement of a tunneled non-cuffed 5 [place] dual lumen PICC via the right internal jugular vein utilizing fluoroscopic and sonographic guidance. Guidance Fluoroscopy 03/07/19 09:30 IMPRESSION: Successful placement of a tunneled non-cuffed 5 [place] dual lumen PICC via the right internal jugular vein utilizing fluoroscopic and sonographic guidance. Chest X-Ray 01/13/20 15:03 IMPRESSION: Persistent infiltrate most marked in the right lower lobe. No significant change from prior study. Plan Time Spent: Greater than 30 Minutes Stroke Is this a Stroke Patient?: No Acute Heart Failure - Is this a Heart Failure Patient?: Yes Documentation of LVEF assessment?: Yes LVEF < 40%?: Yes-if yes answer questions a through e a) Discharged on ACEI?: No, document contraindications - BENNY Reason(s) not discharge on ACEI: Impaied/worsening renal function b) Discharges on ARB?: No-document contraindications Reason(s) not discharged on ARB: Impaired/worsening renal functions c) Discharged on ARNI?: No-Document Contraindications Reason(s) not discharged on ARNI: Impaired/worsening renal functions d) Discharged on evidence-based Beta rip(carvedilol, sustained release metoprolol succinate, or bisoprolol)?: Yes e) For LVEF <35%, discharged on Aldosterone antagonist?: No-document contraincations Reason(s) not discharged on Aldosterone antagonist for LVEF < 35%: Renal dysfunction (creatinine >2.5 mg/dL in men or 2.0 mg/dL in women) 3. Anticoagulant therapy for permanect/persistent/paraoxysmal Afib or Aflutter: Yes Follow-up Appointment scheduled within 7 days?: Yes
[2019-03-23] MEDS: MELATONIN 5 MG TABLET PO SCH (21:49)
[2019-03-23] MEDS: PROMETHAZINE HCL INJ 25 MG/1 ML VIAL IV PRN (21:52)
[2019-03-23] MEDS: SENNOSIDES/DOCUSATE 8.6-50 MG 1 EACH TABLET PO SCH (22:01)
[2019-03-24 06:27] LABS: ANION GAP 5 (5-19); BLOOD UREA NITROGEN 16 mg/dL (7-20); CALCIUM 8.7 mg/dL (8.4-10.2); CARBON DIOXIDE 27 mmol/L (22-30); CHLORIDE 111 mmol/L (98-107); GLUCOSE 90 mg/dL (75-110); POTASSIUM 4.3 mmol/L (3.6-5.0)
[2019-03-24] MEDS: BUSPIRONE HCL 10 MG TABLET PO SCH (09:37)
[2019-03-24] MEDS: PREDNISONE 20 MG TABLET PO SCH (09:37)
[2019-03-24] MEDS: ASPIRIN 81 MG TABLET, ENT COATED PO SCH (09:37)
[2019-03-24] MEDS: NORMAL SALINE 10 ML SDV (SCHEDULED) IV SCH (09:38)
[2019-03-24] MEDS: FUROSEMIDE 20 MG TABLET PO SCH (09:38)
[2019-03-24] MEDS: APIXABAN 2.5 MG TABLET PO SCH (09:38)
[2019-03-24] MEDS: FAMOTIDINE 20 MG TABLET PO SCH (09:38)
[2019-03-24] MEDS: ISOSORBIDE MONONITRATE 30 MG TAB.ER.24H PO SCH (09:38)
[2019-03-24] MEDS: OXYCODONE HCL IR 5 MG TABLET PO PRN (09:39)
[2019-03-24] MEDS: PAROXETINE HCL 20 MG TABLET PO SCH (09:39)
[2019-03-24] MEDS: METOPROLOL SUCCINATE 25 MG TAB.SR.24H PO SCH (09:39)
[2019-03-24] MEDS: VANCOMYCIN HCL 1,000 MG in DEXTROSE 5%-WATER 250 ML IV SCH (12:00)
[2019-03-24 12:57] LABS: VANCOMYCIN,TROUGH 13.8 ug/mL (5.0-20.0)
[2019-03-24 13:23] VITALS: BP 104/46
--- NOTE | 2019-03-24 17:40 | Progress Note ---
Provider Note Provider Note: Discussed with social work administration that I will not be responsible for monitoring the patient's IV antibiotics or laboratory results in the outpatient setting. I have referred the dialysis social worker and patient to her PCP who can be tasked with this responsibility which is much more appropriate and safer for the patient. All are in agreement with this plan.
--- NOTE | 2019-03-24 17:43 | PDOC PROGRESS REPORT ---
Subjective Progress Note for:: 03/24/19 Subjective:: Patient is a 48-year-old female admitted for MRSA Community-acquired pneumonia complicated by ARDS requiring mechanical ventilation, acute on chronic systolic CHF, acute on chronic renal failure, MRSA bacteremia. She has since been extubated and is left ICU. Lasix was held intermittently for lower limit normal BP, given some IV fluids back. CPK elevated and creatinine elevated as well. Tunneled PIC catheter placed for long-term antibiotics after blood cultures negative. Anti-MRSA antibiotic started on 02/11. Daptomycin started on 03/05 however CPK notably elevated 03/17, subsequently switched to vancomycin instead. Antibiotics to continue until 04/16/2019. 03/22: Left ankle suspected gout pain significantly improved since starting prednisone. No new complaints per patient. Wants to go home and come back for infusions via her PICC. This is being arranged by social work. Uric acid was 6 and though this does not rule out gout. it is suggestive of possible pseudogout instead. Low-dose Lasix to restart as creatinine appears to be at baseline approximately 1.8. No significant changes on day of discharge. Reason For Visit: TUNNEL PICC/COPD EXACERBATION,CHF,RESPIRATORY Physical Exam Vital Signs: Temp Pulse Resp BP Pulse Ox 98.5 F 60 16 104/46 L 100 03/24/19 13:22 03/24/19 13:22 03/24/19 13:22 03/24/19 13:22 03/24/19 13:22 Intake & Output 03/23/19 03/24/19 03/25/19 06:59 06:59 06:59 Intake Total 1590 2450 490 Balance 1590 2450 490 Weight 86 kg 87.3 kg General appearance: PRESENT: no acute distress, well-developed, well-nourished Head exam: PRESENT: atraumatic, normocephalic Eye exam: PRESENT: conjunctiva pink Respiratory exam: PRESENT: clear to auscultation renu. ABSENT: rales, rhonchi, wheezes Cardiovascular exam: PRESENT: RRR. ABSENT: diastolic murmur, rubs, systolic murmur GI/Abdominal exam: PRESENT: normal bowel sounds, soft. ABSENT: distended, guarding, mass, organolmegaly, rebound, tenderness Neurological exam: PRESENT: alert, awake, oriented to person, oriented to place, oriented to time, oriented to situation Psychiatric exam: PRESENT: appropriate affect, normal mood Skin exam: PRESENT: dry, intact, warm Results Laboratory Results: 03/22/19 12:50 03/24/19 06:00 03/24/19 06:00 Sodium 143.3 Potassium 4.3 Chloride 111 H Carbon Dioxide 27 Anion Gap 5 BUN 16 Creatinine 1.62 H Est GFR ( Amer) 41 L Glucose 90 Calcium 8.7 03/19/19 11:14 Blood Blood Culture - Final NO GROWTH IN 5 DAYS 03/19/19 11:10 Blood Blood Culture - Final NO GROWTH IN 5 DAYS 02/08/19 02/08/19 02/08/19 04:06 04:06 05:30 Creatine Kinase Cancelled 33 CK-MB (CK-2) Cancelled Troponin I Cancelled NT-Pro-B Natriuret Pep Cancelled 02/08/19 02/11/19 02/13/19 05:45 03:18 01:22 Creatine Kinase CK-MB (CK-2) < 0.22 Troponin I 0.043 NT-Pro-B Natriuret Pep 7610 H 1970 H 25586 H 03/05/19 03/07/19 03/08/19 12:52 05:50 06:08 Creatine Kinase 39 24 L 23 L CK-MB (CK-2) Troponin I NT-Pro-B Natriuret Pep 03/13/19 03/16/19 03/16/19 17:20 09:00 18:00 Creatine Kinase 105 751 H CK-MB (CK-2) Troponin I 0.067 NT-Pro-B Natriuret Pep 03/17/19 03/18/19 03/20/19 05:10 07:55 06:30 Creatine Kinase 1260 H 2233 H 604 H CK-MB (CK-2) Troponin I NT-Pro-B Natriuret Pep Impressions: Chest CT 02/10/19 00:00 IMPRESSION: No pneumothorax. No pleural effusions. Bibasilar consolidation in both lower lobes. Slightly increased interstitial thickening, basilar predomin ance. Scattered pulmonary cysts and ground-glass opacities are again noted. Tubes and lines in expected positions. Head CT 03/05/19 00:00 IMPRESSION: No acute intracranial pathology. EVIDENCE OF ACUTE STROKE: NO. KUB X-Ray 03/05/19 00:00 IMPRESSION: Constipation. Guidance Ultrasound 03/07/19 00:00 IMPRESSION: Successful placement of a tunneled non-cuffed 5 Indonesian dual lumen PICC via the right internal jugular vein utilizing fluoroscopic and sonographic guidance. Central Venous Line 03/07/19 09:30 IMPRESSION: Successful placement of a tunneled non-cuffed 5 Indonesian dual lumen PICC via the right internal jugular vein utilizing fluoroscopic and sonographic guidance. Guidance Fluoroscopy 03/07/19 09:30 IMPRESSION: Successful placement of a tunneled non-cuffed 5 Indonesian dual lumen PICC via the right internal jugular vein utilizing fluoroscopic and sonographic guidance. Chest X-Ray 03/12/19 15:03 IMPRESSION: Persistent infiltrate most marked in the right lower lobe. No significant change from prior study. Assessment and Plan - Diagnosis (1) MRSA bacteremia Is this a current diagnosis for this admission?: Yes Plan: 03.07.2019: Patient now has a tunneled PIC catheter for long-term antibiotic use. She will be on daptomycin as noted below with rifampin. She should be on a total of at least 6 weeks. The first initiation of any MRSA related antibiotics began approximately 02/11/2019 03.06.2019: Plan for tunneled picc catheter for long-term antibiotic. Recent cultures negative. Placed on Meropenem for coverage of possible tracheal colonization. Total of 7 days. 03.05.2019: Spoke with infectious disease. Their recommendation based on the patient's renal failure is to start daptomycin at 8-10 mg/kg daily in addition to rifampin 600 mg daily. Given the current recommendations a higher dose would seem to improve result in less resistance. Have ordered a baseline CK and have discontinued atorvastatin and concern for synergistic rhabdomlysis. The RIJ has been in place > one week and interventional radiology will be placing a tunneled catheter on Tuesday to allow the Eliquis effect to wear off. 03/13: Continue Daptomycin. 03/15: Completing IV antibiotics. Last day on 04/16/19. 03/17: Patient has developed significant elevation of CK from daptomycin. Discussed with ID. Switch daptomycin to vancomycin. 03/18-CK is 2060 yesterday and today CK levels are pending. Daptomycin was discontinued and patient is presently on vancomycin. Latest blood cultures are negative. Last day of antibiotic therapy will be 04/16/2019. 03/19/19-today CK level is 2333. To start on IV fluids normal saline at 75 cc/h and to recheck the labs tomorrow. Patient is presently on IV vancomycin. Latest blood cultures are negative plan is to repeat the blood cultures today. Last dose of antibiotic therapy will be 04/16/2019. Adjust Vanco trough is 15.3. Plan is to repeat the trough levels today. 03/20: IV vancomycin continued, following troughs. CPK is now going down with IV fluids. Can stop fluids in a.m. if creatinine lower. 03/21: IV vancomycin to continue after discharge. Discussed this with patient and she states she is agreeable to coming back to the hospital for infusions each day. 03/22: Ongoing IV vancomycin, stable creatinine. Plan is for patient to be discharged with PICC line and come back to hospital for infusions. 03/24: patient discharged home with home health IV antibiotics which will be monitored by either PCP or another physician to be assigned by social work. (2) Acute on chronic renal failure Is this a current diagnosis for this admission?: Yes (3) Acute on chronic respiratory failure with hypoxia Is this a current diagnosis for this admission?: Yes (4) Acute on chronic systolic (congestive) heart failure Is this a current diagnosis for this admission?: Yes (5) Acute on chronic respiratory failure Qualifiers: Respiratory failure complication: hypoxia and hypercapnia Qualified Code(s): J96.21 - Acute and chronic respiratory failure with hypoxia; J96.22 - Acute and chronic respiratory failure with hypercapnia Is this a current diagnosis for this admission?: Yes (6) COPD (chronic obstructive pulmonary disease) Qualifiers: COPD type: unspecified COPD Qualified Code(s): J44.9 - Chronic obstructive pulmonary disease, unspecified Is this a current diagnosis for this admission?: Yes (7) Hyperlipidemia Qualifiers: Hyperlipidemia type: unspecified Qualified Code(s): E78.5 - Hyperlipidemia, unspecified Is this a current diagnosis for this admission?: Yes (8) Hypertension Qualifiers: Hypertension type: essential hypertension Qualified Code(s): I10 - Essential (primary) hypertension Is this a current diagnosis for this admission?: Yes (9) Pneumonia Qualifiers: Pneumonia type: due to methicillin-resistant Staphylococcus aureus (MRSA) Is this a current diagnosis for this admission?: Yes (10) Gout flare Qualifiers: Gout site: ankle Gout etiology: idiopathic Laterality: left Qualified Code(s): M10.072 - Idiopathic gout, left ankle and foot Is this a current diagnosis for this admission?: Yes - Plan Summary Summary: Patient was downgraded from ICU on 03/08/19 after long stay for Community Acquired Pneumonia (MRSA) resulting in ARDS requiring intubation, acute exacerbation of her Systolic CHF, acute exacerbation of her chronic kidney failure, MRSA bacteremia, and generalized debility. Infectious disease was consulted and recommend IV antibiotics x 6weeks from date of clearance (03/05/19) with end date of 04/16/19. At that time, repeat cultures should be obtained. If she remains positive, she will then require consultation with CT surgery for removal of her AICD. Due to history of substance abuse, she is not a good candidate for outpatient infusion. Patient remains significantly debilitated; will consult PT/OT. Cardiology has been consulted. Dr. Ragsdale recommends resumption of renally dosed Eliquis. Continue pulmonary toilet, as needed nebulizer treatments, and ambulation for recovery of her pneumonia. She does utilize home O2. 03/09/2019- The patient is now on the medical floor. She is quite comfortable. Sepsis is resolved however infectious disease consultation suggest a total of 6 weeks IV antibiotics from the last negative blood culture for her MRSA bacteremia secondary to her MRSA pneumonia. Her pneumonitis and tracheitis from mechanical ventilation are resolved as well. Cardiology continues to follow for her ischemic cardiology with AICD. Her blood pressure still borderline low on her current regimen. This may need to be adjusted. Will discuss with cardiology. A. fib is controlled. She is back to her baseline oxygen requirements. She appears to be back her close to her baseline chronic renal failure. We will continue current treatment plan as outlined 03/10/2019-patient is doing well. Plan course is for 6 weeks IV daptomycin. Stable from a cardiology standpoint. BUN and creatinine are slightly higher so I have decreased her furosemide to 60 mg twice daily will continue to monitor I's and O's, telemetry and vital signs - Time Time Spent with patient: 15-24 minutes Medications reviewed and adjusted accordingly: Yes Anticipated discharge: Home with Homehealth Within: within 24 hours
== END 2019-03-24 14:45 | disposition home health service (06) | DRG 207 ==
LOC: ER 02:41 → EH 04:24 → ICU 04:26 → 4N 03-07 21:37
PROVIDERS: ADMIT Anesthesiology; ATTEND Hospitalist
PROC: 5A1945Z Respiratory Ventilation, 24-96 Consecutive Hours (ICD-10-PCS; 2019-02-08)
PROC: 0BH17EZ Insertion of Endotracheal Airway into Trachea, Via Natural or Artificial Opening (ICD-10-PCS; 2019-02-08)
PROC: 02HV33Z Insertion of Infusion Device into Superior Vena Cava, Percutaneous Approach (ICD-10-PCS; 2019-02-08)
PROC: 03HY32Z Insertion of Monitoring Device into Upper Artery, Percutaneous Approach (ICD-10-PCS; 2019-02-08)
PROC: 4A133B1 Monitoring of Arterial Pressure, Peripheral, Percutaneous Approach (ICD-10-PCS; 2019-02-08)
PROC: 4A133J1 Monitoring of Arterial Pulse, Peripheral, Percutaneous Approach (ICD-10-PCS; 2019-02-08)
PROC: 5A09357 Assistance with Respiratory Ventilation, Less than 24 Consecutive Hours, Continuous Positive Airway Pressure (ICD-10-PCS; 2019-02-11)
PROC: 5A1955Z Respiratory Ventilation, Greater than 96 Consecutive Hours (ICD-10-PCS; principal; 2019-02-12)
PROC: 0B978ZX Drainage of Left Main Bronchus, Via Natural or Artificial Opening Endoscopic, Diagnostic (ICD-10-PCS; 2019-02-12)
PROC: 0B938ZX Drainage of Right Main Bronchus, Via Natural or Artificial Opening Endoscopic, Diagnostic (ICD-10-PCS; 2019-02-12)
PROC: 0BH17EZ Insertion of Endotracheal Airway into Trachea, Via Natural or Artificial Opening (ICD-10-PCS; 2019-02-12)
PROC: 03HY32Z Insertion of Monitoring Device into Upper Artery, Percutaneous Approach (ICD-10-PCS; 2019-02-13)
PROC: 0DJ08ZZ Inspection of Upper Intestinal Tract, Via Natural or Artificial Opening Endoscopic (ICD-10-PCS; 2019-02-18)
PROC: 0DJD8ZZ Inspection of Lower Intestinal Tract, Via Natural or Artificial Opening Endoscopic (ICD-10-PCS; 2019-02-20)
PROC: 30233N1 Transfusion of Nonautologous Red Blood Cells into Peripheral Vein, Percutaneous Approach (ICD-10-PCS; 2019-02-23)
PROC: 5A09557 Assistance with Respiratory Ventilation, Greater than 96 Consecutive Hours, Continuous Positive Airway Pressure (ICD-10-PCS; 2019-03-01)
PROC: 02HV33Z Insertion of Infusion Device into Superior Vena Cava, Percutaneous Approach (ICD-10-PCS; 2019-03-07)
PROC: B5181ZA Fluoroscopy of Superior Vena Cava using Low Osmolar Contrast, Guidance (ICD-10-PCS; 2019-03-07)
PROC: B548ZZA Ultrasonography of Superior Vena Cava, Guidance (ICD-10-PCS; 2019-03-07)
DX: J96.21 Acute and chronic respiratory failure with hypoxia (principal); I50.23 Acute on chronic systolic (congestive) heart failure; J15.212 Pneumonia due to Methicillin resistant Staphylococcus aureus; K29.71 Gastritis, unspecified, with bleeding; R65.21 Severe sepsis with septic shock; A41.02 Sepsis due to Methicillin resistant Staphylococcus aureus; N17.9 Acute kidney failure, unspecified; I13.0 Hypertensive heart and chronic kidney disease with heart failure and stage 1 through stage 4 chronic kidney disease, or unspecified chronic kidney disease; J44.0 Chronic obstructive pulmonary disease with (acute) lower respiratory infection; J95.851 Ventilator associated pneumonia; J44.1 Chronic obstructive pulmonary disease with (acute) exacerbation; I48.11 Longstanding persistent atrial fibrillation; Z78.1 Physical restraint status; E11.22 Type 2 diabetes mellitus with diabetic chronic kidney disease; T46.2X1A Poisoning by other antidysrhythmic drugs, accidental (unintentional), initial encounter; E78.5 Hyperlipidemia, unspecified; Y84.8 Other medical procedures as the cause of abnormal reaction of the patient, or of later complication, without mention of misadventure at the time of the procedure; J96.22 Acute and chronic respiratory failure with hypercapnia; M10.072 Idiopathic gout, left ankle and foot; F32.9 Major depressive disorder, single episode, unspecified; I25.10 Atherosclerotic heart disease of native coronary artery without angina pectoris; I25.2 Old myocardial infarction; K21.9 Gastro-esophageal reflux disease without esophagitis; I48.0 Paroxysmal atrial fibrillation; Z68.33 Body mass index [BMI] 33.0-33.9, adult; Z79.899 Other long term (current) drug therapy; Z95.810 Presence of automatic (implantable) cardiac defibrillator; N18.3 Chronic kidney disease, stage 3 (moderate); E87.6 Hypokalemia; D63.1 Anemia in chronic kidney disease; I25.5 Ischemic cardiomyopathy; Z95.1 Presence of aortocoronary bypass graft; Z95.5 Presence of coronary angioplasty implant and graft; Z88.8 Allergy status to other drugs, medicaments and biological substances; Z88.6 Allergy status to analgesic agent; Z91.012 Allergy to eggs; Z79.01 Long term (current) use of anticoagulants; Z79.82 Long term (current) use of aspirin
CPT/HCPCS: 31500; 31622; 36415; 36430; 36556; 36558; 36600; 36620; 43239; 45378; 51702; 70450; 71045; 71250; 74018; 76937; 77001; 80048; 80053; 80202; 80307; 81001; 82040; 82140; 82272; 82550; 82553; 82565; 82803; 82962; 83516; 83605; 83735; 83874; 83880; 84100; 84439; 84443; 84478; 84481; 84484; 84550; 85025; 85027; 85384; 85610; 85730; 86256; 86701; 86850; 86900; 86901; 86920; 87040; 87070; 87077; 87086; 87150; 87186; 87205; 87536; 93005; 93010; 93312; 93325; 94002; 94003; 94660; 99232; 99233; 99285; 99291; 99292; B4155; C9113; J0171; J0330; J0878; J1200; J1610; J1630; J1642; J1644; J1815; J1940; J2020; J2060; J2185; J2250; J2260; J2270; J2310; J2405; J2543; J2550; J2704; J2920; J2930; J3010; J3370; J3480; J3490; J7030; J7050; J7060; J7512; J7620; P9016; P9041; P9047; S0028

== ENCOUNTER 2019-04-04 16:18 | Inpatient (IN) | payer MEDICAID ==
[2019-04-04] MEDS ORDERED: NITROGLYCERIN/D5W 50 MG/250 ML RTUINJ IV PRN (16:38)
[2019-04-04] MEDS ORDERED: FUROSEMIDE INJ/PF 40 MG/4 ML SDV IV ONE (16:38)
--- NOTE | 2019-04-04 17:36 | RADIOLOGY REPORT (SQ) ---
EXAM DESCRIPTION: CHEST SINGLE VIEW COMPLETED DATE/TIME: 04/04/2019 5:27 pm REASON FOR STUDY: SOB, CHF, h/o PNA COMPARISON: 03/12/2019. EXAM PARAMETERS: NUMBER OF VIEWS: One view. TECHNIQUE: Single frontal radiographic view of the chest acquired. RADIATION DOSE: NA LIMITATIONS: None. FINDINGS: LUNGS AND PLEURA: Diffuse airspace disease in the right lung which has worsened. Patchy a irspace disease in the left lung base. MEDIASTINUM AND HILAR STRUCTURES: No masses. Contour normal. HEART AND VASCULAR STRUCTURES: Cardiomegaly unchanged. BONES: No acute findings. HARDWARE: Sternotomy wires, defibrillator, and central line. OTHER: No other significant finding. IMPRESSION: INTERVAL WORSENING OF BILATERAL AIRSPACE DISEASE, PARTICULARLY IN THE RIGHT LUNG. TECHNICAL DOCUMENTATION: JOB ID: [id number] [employer]- All Rights Reserved Reading location - IP/workstation name: [email or web address]
[2019-04-04 17:40] LABS: ABSOLUTE LYMPHOCYTES (AUTO) 1.3 10^3/uL (0.5-4.7); ABSOLUTE MONOCYTES (AUTO) 0.7 10^3/uL (0.1-1.4); ABSOLUTE NEUT (AUTO) 9.2 10^3/uL (1.7-8.2); BASOPHILS % (AUTO) 0.4 % (0-2); HEMATOCRIT 24.2 % (36.0-47.0); LYMPHOCYTES % (AUTO) 11.8 % (13-45); MEAN CORPUSCULAR HEMOGLOBIN 30.7 pg (27.0-33.4); MEAN CORPUSCULAR HGB CONC 32.6 g/dL (32.0-36.0); MEAN CORPUSCULAR VOLUME 94 fl (80-97); MONOCYTES % (AUTO) 5.9 % (3-13); PLATELET COUNT 330 10^3/uL (150-450); RED BLOOD COUNT 2.57 10^6/uL (3.72-5.28); RED CELL DISTRIBUTION WIDTH 21.4 % (11.5-14.0); SEGMENTED NEUTROPHILS % (AUTO) 81.9 % (42-78); TOTAL CELLS COUNTED % (AUTO) 100 %; WHITE BLOOD COUNT 11.3 10^3/uL (4.0-10.5)
[2019-04-04 17:53] LABS: HEMOGLOBIN 7.9 g/dL (12.0-15.5)
[2019-04-04 17:55] LABS: APPEARANCE,URINE SLIGHTLY-CLOUDY; BILIRUBIN,URINE NEGATIVE (NEGATIVE); COLOR,URINE STRAW; GLUCOSE, URINE NEGATIVE (NEGATIVE); KETONES,URINE NEGATIVE (NEGATIVE); LEUKOCYTE ESTERASE,URINE LARGE (NEGATIVE); NITRITE,URINE NEGATIVE (NEGATIVE); PROTEIN,URINE NEGATIVE (NEGATIVE); URINE SPECIFIC GRAVITY 1.006; UROBILINOGEN,URINE NEGATIVE mg/dL (<2.0)
[2019-04-04 18:12] LABS: ALBUMIN 3.8 g/dL (3.5-5.0); ALKALINE PHOSPHATASE 231 U/L (38-126); ANION GAP 12 (5-19); ASPARTATE AMINO TRANSFERASE 129 U/L (14-36); BILIRUBIN,DIRECT 0.9 mg/dL (0.0-0.4); BILIRUBIN,TOTAL 1.7 mg/dL (0.2-1.3); BLOOD UREA NITROGEN 28 mg/dL (7-20); CALCIUM 8.7 mg/dL (8.4-10.2); CARBON DIOXIDE 23 mmol/L (22-30); CHLORIDE 106 mmol/L (98-107); CREATINE KINASE 30 U/L (30-135); GLUCOSE 121 mg/dL (75-110); POTASSIUM 4.5 mmol/L (3.6-5.0)
[2019-04-04 18:22] LABS: CREATINE KINASE MB 0.91 ng/mL (<4.55)
[2019-04-04 18:32] LABS: TROPONIN I 0.154 ng/mL
--- NOTE | 2019-04-04 18:35 | EKG REPORT ---
SEVERITY:- ABNORMAL ECG - ATRIAL-SENSED VENTRICULAR-PACED RHYTHM : Confirmed by: Griselda Martin MD 04-Apr-2019 18:35:03
[2019-04-04] MEDS ORDERED: ONDANSETRON HCL INJ/PF 4 MG/2 ML SDV IV ONE (18:39)
[2019-04-04] MEDS ORDERED: VANCOMYCIN HCL INJ 1000 MG VIAL IV ONE (18:59)
[2019-04-04] MEDS ORDERED: CEFTRIAXONE 1 GM/D5W RTU 1 GM/50 ML RTUPB IV ONE (18:59)
[2019-04-04] MEDS ORDERED: NITROGLYCERIN 5 MG (0.2 MG/HR) PATCH.TD24 TD ONE (19:18)
--- NOTE | 2019-04-04 19:48 | ER Document Report ---
ED General - General Chief Complaint: Breathing Difficulty Stated Complaint: TROUBLE BREATHING Time Seen by Provider: 04/04/19 16:30 Notes: 48-year-old female brought to the ED from home via EMS due to shortness of breath onset last night and pain all over her body. Home health nurse apparently called EMS. Patient was 88% on room air when EMS arrived, they initially placed her on 10 L via nasal cannula and she was still hypoxic and short of breath so they placed her on CPAP per run report. They did give her 2 breathing treatments of albuterol and Atrovent on the way in. Patient was discharged from this hospital approximately 2 weeks ago and is continue to receive outpatient IV vancomycin until 04/16/2019 for right-sided MRSA pneumonia. Patient also has a history of CHF, COPD and an AICD for cardiomyopathy. TRAVEL OUTSIDE OF THE [place] IN LAST 30 DAYS: No - Related Data Allergies/Adverse Reactions: egg [Egg] Allergy (Verified 10/04/18 00:18) hydrocodone [From Vicodin] Allergy (Verified 04/07/19 08:53) propoxyphene [From Darvocet-N] Allergy (Verified 10/04/18 00:18) amiodarone Adverse Reaction (Verified 10/04/18 00:18) Respiratory distress diphenhydramine HCl [From Benadryl] Adverse Reaction (Verified 10/04/18 00:18) chest pain, bigemeny rhythm Past Medical History - General Information source: Patient, Emergency Med Personnel, [facility] Records - Social History Smoking Status: Former Smoker - Currently vapes. Family History: CAD, CVA, DM, Hypertension, Malignancy, Other - Kidney disease - Past Medical History Cardiac Medical History: Reports: Hx Atrial Fibrillation, Hx Congestive Heart Failure, Hx Coronary Artery Disease, Hx Heart Attack, Hx Hypercholesterolemia, Hx Hypertension Denies: Hx DVT, Hx Pulmonary Embolism Pulmonary Medical History: Reports: Hx Bronchitis, Hx COPD, Hx Pneumonia, Hx Intubation, Hx Respiratory Failure, Hx Sleep Apnea Denies: Hx Asthma Neurological Medical History: Denies: Hx Cerebrovascular Accident, Hx Seizures Endocrine Medical History: Denies: Hx Diabetes Mellitus Type 1, Hx Diabetes Mellitus Type 2, Hx Hyperthyroidism, Hx Hypothyroidism Renal/ Medical History: Reports: Hx Kidney Stones, Hx Renal Insufficiency. Denies: Hx Peritoneal Dialysis GI Medical History: Reports: Hx Gastroesophageal Reflux Disease. Denies: Hx Cirrhosis, Hx Crohn's Disease, Hx Hepatitis, Hx Hiatal Hernia, Hx Ulcer, Hx Ulcerative Colitis Musculoskeletal Medical History: Denies Hx Arthritis, Denies Hx Gout Skin Medical History: Denies Hx Eczema, Denies Hx Psoriasis Psychiatric Medical History: Reports: Hx Anxiety, Hx Depression, Hx Schizophrenia Infectious Medical History: Reports: Hx MRSA - And sputum on last admission.. Denies: Hx Hepatitis Past Surgical History: Reports: Hx Cardiac Catheterization - multiple, Hx Cardiac Surgery - pacemaker/icd, Hx Section, Hx Coronary Artery Bypass Graft - 2006, Hx Coronary Stent - Multiple, Hx Hysterectomy, Hx Open Heart Surgery - BYPASS 2006, Hx Pacemaker - AICD, Hx Tubal Ligation. Denies: Hx Mastectomy - Immunizations Hx Diphtheria, Pertussis, Tetanus Vaccination: Yes Hx Pneumococcal Vaccination: 04/04/12 Review of Systems - Review of Systems Constitutional: See HPI, Recent illness EENT: No symptoms reported Cardiovascular: See HPI, Dyspnea. denies: Chest pain, Palpitations, Heart racing Respiratory: See HPI, Short of breath. denies: Hurts to breathe Gastrointestinal: Vomiting. denies: Abdominal pain, Diarrhea -: Yes All other systems reviewed and negative Physical Exam - Vital signs Vitals: Temp Pulse Resp BP Pulse Ox 98.7 F 81 28 H 171/106 H 98 04/04/19 16:25 04/04/19 16:25 04/04/19 16:25 04/04/19 16:25 04/04/19 16:25 Interpretation: Tachypneic - Notes Notes: GENERAL: Awake, able to answer questions, appears quite short of breath, tachypneic, on CPAP from EMS, rapidly transitioned to BiPAP wihtout incident. HEAD: Normocephalic, atraumatic EYES: Pupils equal, round and reactive to light, extraocular movements intact. ENT: Oral mucosa moist, tongue midline. NECK: Full range of motion, supple, trachea midline. LUNGS: Right sided PICC line in place, tachypneic, appears short of breath, diffuse inspiratory rales and rhonchi on the right, left lower lung field inspiratory rales on the left, no wheezing. HEART: Regular rate and rhythm, no murmurs, gallops, rubs. ABDOMEN: Soft, nontender, nondistended, bowel sounds present in all 4 quadrants. EXTREMITIES: Moves all 4 extremities spontaneously, 3+ pitting edema, radial and dorsalis pedis pulses 2/4 bilaterally. No cyanosis. NEUROLOGICAL: Alert and oriented x3, normal speech. PSYCH: Normal mood, normal affect. SKIN: Hot. Diaphoretic. Course - Re-evaluation Re-evalutation: 04/04/19 20:22 Patient was transitioned from CPAP to BiPAP without difficulty, without difficulty. Started on nitro drip to help with diuresis due to apparent heart failure. No further breathing treatments were given as there was no wheezing. 04/04/19 20:26 Chest x-ray reveals worsening right-sided airspace disease, CBC shows newly increasing leukocytosis at 11.3, anemia with a hemoglobin of 7.9 not significantly changed from 2 days ago, platelets normal, chemistries reveal acute on chronic kidney disease, BUN is 28, creatinine is 2.6, troponin is positive at 0.154, proBNP is elevated at 34,300. Urinalysis shows large leukocyte esterase. Patient is now doing quite well after being on the BiPAP and the nitro drip for 2 hours. Patient is transitioned from nitro drip to a nitroglycerin patch. Patient was able to remove the BiPAP for 3 to 4 minutes in order to drink some water and then it was replaced. Discussed patient with Dr. Martin due to the positive troponin at the request of the hospitalist. He states that he will see the patient in the morning, he does not feel this represents a heart attack that requires acute intervention at this time. Dr. Martin did then come into the emergency department and see the patient here. I discussed the patient with Dr. Esa Ku to the hospitalist who stated he would like the results of the repeat troponin and an arterial blood gas before he decides whether this patient is suitable for IMCU. Dr. Mcclure will call him with these results when they are back. I have continued the patient on vancomycin here through the IV. - Vital Signs Vital signs: Temp Pulse Resp BP Pulse Ox 98.5 F 75 18 121/51 L 96 04/12/19 23:37 04/13/19 02:00 04/12/19 23:37 04/12/19 23:37 04/12/19 23:37 - Laboratory Result Diagrams: 04/09/19 09:50 04/12/19 05:00 Laboratory results interpreted by me: 04/04/19 04/04/1904/04/20 17:15 17:15 17:15 WBC 11.3 H RBC 2.57 L Hgb 7.9 L Hct 24.2 L RDW 21.4 H Lymph % (Auto) 11.8 L Absolute Neuts (auto) 9.2 H Seg Neutrophils % 81.9 H ABG pO2 ABG HCO3 ABG Total CO2 BUN 28 H Creatinine 2.60 H Est GFR ( Amer) 24 L Est GFR (MDRD) Non-Af 20 L Glucose 121 H Total Bilirubin 1.7 H Direct Bilirubin 0.9 H AST 129 H Alkaline Phosphatase 231 H NT-Pro-B Natriuret Pep 33676 H Urine Blood Ur Leukocyte Esterase 04/04/19 04/04/19 17:15 20:26 WBC RBC Hgb Hct RDW Lymph % (Auto) Absolute Neuts (auto) Seg Neutrophils % ABG pO2 77.5 L ABG HCO3 26.2 H ABG Total CO2 27.5 H BUN Creatinine Est GFR ( Amer) Est GFR (MDRD) Non-Af Glucose Total Bilirubin Direct Bilirubin AST Alkaline Phosphatase NT-Pro-B Natriuret Pep Urine Blood SMALL H Ur Leukocyte Esterase LARGE H - EKG Interpretation by Me Additional EKG results interpreted by me: 04/04/19 20:30 EKG shows atrially sensed ventricularly paced rhythm at a rate of [address] segment elevations per my interpretation. Critical Care Note - Critical Care Note Total time excluding time spent on procedures (mins): 45 Discharge - Discharge Clinical Impression: CAP (community acquired pneumonia) due to MRSA (methicillin resistant Staphylococcus aureus), Acute on chronic respiratory failure with hypoxia, Acute on chronic systolic congestive heart failure, NYHA class 2, AICD (automatic cardioverter/defibrillator) present Acute renal failure superimposed on chronic kidney disease Qualifiers: Acute renal failure type: unspecified Chronic kidney disease stage: stage 3 (moderate) Qualified Code(s): N17.9 - Acute kidney failure, unspecified Condition: Serious Disposition: ADMITTED INPATIENT
[2019-04-04 21:03] LABS: ARTERIAL BLOOD H2CO3 1.33 mmol/L (1.05-1.35); ARTERIAL BLOOD HCO3 26.2 mmol/L (20-24); ARTERIAL BLOOD O2 SATURATION 95.3 % (94-98); ARTERIAL BLOOD PCO2 44.3 mmHg (35-45); ARTERIAL BLOOD PH 7.39 (7.35-7.45); ARTERIAL BLOOD PO2 77.5 mmHg (80-100); ARTERIAL BLOOD TOTAL CO2 27.5 mmol/L (21-25)
[2019-04-04 21:04] LABS: ARTERIAL BLOOD FIO2 40%
[2019-04-04] MEDS ORDERED: HYDRALAZINE HCL INJ/PF 20 MG/1 ML SDV IV PRN (21:36)
[2019-04-04] MEDS ORDERED: ACETAMINOPHEN 325 MG TABLET PO PRN (21:51)
[2019-04-04] MEDS ORDERED: IPRATROPIUM/ALBUTEROL 0.5-2.5 MG/3 ML AMPUL NEB PRN (21:51)
[2019-04-04] MEDS ORDERED: VANCOMYCIN HCL 0 MG in DEXTROSE 5%-WATER 250 ML IV NR (22:00)
[2019-04-04] MEDS ORDERED: HEPARIN SOD (PORCINE) 5,000 UNIT/ML 1 ML VIAL SUBCUT SCH (22:00)
[2019-04-04] MEDS ORDERED: NITROGLYCERIN 0.4 MG/TAB 25 TAB/BOTTLE SL PRN (22:13)
[2019-04-05] MEDS ORDERED: METOPROLOL SUCCINATE 25 MG TAB.SR.24H PO ONE (01:45)
[2019-04-05] MEDS ORDERED: FLUTICASONE NASAL SPRAY 50 MCG/SPRY 120 SPRAY/16 GM ONE (01:56)
[2019-04-05] MEDS ORDERED: FAMOTIDINE 20 MG TABLET ONE (02:01)
[2019-04-05] MEDS: FLUTICASONE NASAL SPRAY 50 MCG/SPRY 120 SPRAY/16 GM NASL SCH ×3 (02:16→22:16)
[2019-04-05] MEDS: METOPROLOL SUCCINATE 25 MG TAB.SR.24H PO SCH ×3 (02:16→22:15)
[2019-04-05] MEDS: FAMOTIDINE 20 MG TABLET PO SCH ×2 (02:17→09:24)
[2019-04-05] MEDS: LEVALBUTEROL HCL NEB 1.25 MG/3 ML AMPUL NEB SCH ×4 (02:31→20:08)
[2019-04-05] MEDS: IPRATROPIUM BROMIDE 0.02% NEB 0.5 MG/2.5 ML AMPUL NEB SCH ×4 (02:31→20:08)
--- NOTE | 2019-04-05 05:26 | PDOC H&P ---
History of Present Illness Admission Date/PCP: 04/04/19 22:05 YI SANCHEZ DO Patient complains of: Shortness of breath and cough History of Present Illness: FRANKI DEL ROSARIO is a 48 year old female with a past medical history of coronary artery disease status post bypass graft 2006, subsequent artery stenting, congestive heart failure with an ejection fraction of 20 to 25%, AICD, COPD CKD 3, GERD, depression, morbid obesity, obstructive sleep apnea, cocaine and cannabis use. She presents with cough shortness of breath and fever. In the emergency room she is found to have uncontrolled hypertension, fever, tachypnea use of a sensory muscles to breathe, leukocytosis and infiltrate on chest x-ray. She denies chest pain nausea vomiting she receives BiPAP, empiric antibiotics and referred to the hospitalist for admission. Past Medical History Cardiac Medical History: Reports: Atrial Fibrillation, Congestive Heart Failure, Coronary Artery Disease, Myocardial Infarction, Hyperlipidema, Hypertension Denies: DVT, Pulmonary Embolism Pulmonary Medical History: Reports: Bronchitis, Chronic Obstructive Pulmonary Disease (COPD), Intubation, Pneumonia, Respiratory Failure, Sleep Apnea Denies: Asthma Neurological Medical History: Denies: Seizures Endocrine Medical History: Denies: Diabetes Mellitus Type 1, Diabetes Mellitus Type 2, Hyperthyroidism, Hypothyroidism GI Medical History: Reports: Gastroesophageal Reflux Disease Denies: Cirrhosis, Crohn's Disease, Hepatitis, Hiatal Hernia, Ulcerative Colitis Musculoskeltal Medical History: Denies: Arthritis, Gout Skin Medical History: Denies: Eczema, Psoriasis Psychiatric Medical History: Reports: Depression, Substance Abuse, Tobacco Dependency Hematology: Reports: Anemia - Chronic, Bleeding Tendencies - "On blood thinners" Infectious Medical History: Reports: Methicillin-Resistant Staph Aureus - And sputum on last admission. Past Surgical History Past Surgical History: Reports: Cardiac Catheterization - multiple, Section, Coronary Artery Bypass Graft - 2006, Coronary Stent - Multiple, Hysterectomy, Pacemaker - AICD, Tubal Ligation Denies: Mastectomy Social History Information Source: Patient Lives with: Snf Smoking Status: Former Smoker - Currently vapes. Frequency of Alcohol Use: Occasional Hx Recreational Drug Use: Yes Drugs: Marijuana Hx Prescription Drug Abuse: No - Advance Directive Resuscitation Status: Full Code Family History Family History: CAD, CVA, DM, Hypertension, Malignancy, Other - Kidney disease Parental Family History Reviewed: Yes Children Family History Reviewed: Yes Sibling(s) Family History Reviewed.: Yes Medication/Allergy Home Medications: Alprazolam [Xanax 0.5 mg Tablet] 0.5 mg PO Q6HP PRN 02/08/19 Aspirin [Ecotrin 81 mg EC Tablet] 81 mg PO DAILY 02/08/19 Atorvastatin Calcium [Lipitor 80 mg Tablet] 80 mg PO QHS 02/08/19 Buspirone HCl [Buspar 10 mg Tablet] 10 mg PO BID 02/08/19 Nitroglycerin [Nitrostat 0.4 mg (1/150 Gr) Tabs 25/Bottle] 0.4 mg SL Q5MP PRN 02/08/19 Paroxetine HCl [Paxil 20 mg Tablet] 20 mg PO DAILY 02/08/19 Apixaban [Eliquis 2.5 mg Tablet] 2.5 mg PO BID #60 tablet 03/23/19 Famotidine [Pepcid 20 mg Tablet] 20 mg PO Q12 #60 tablet 03/23/19 Furosemide [Lasix 20 mg Tablet] 20 mg PO DAILY #30 tablet 03/23/19 Isosorbide Mononitrate [Imdur 30 mg Tablet.er] 30 mg PO DAILY #30 tab.er.24h 03/23/19 Melatonin [Melatonin 5 mg Tablet] 10 mg PO QHS #30 tablet 03/23/19 Metoprolol Succinate [Toprol Xl 25 mg Tab.sr] 25 mg PO Q12 #60 tab.sr.24h 03/23/19 Prednisone [Deltasone 20 mg Tablet] 40 mg PO DAILY 2 Days #4 tablet 03/23/19 Sennosides/Docusate 8.6-50 mg [Senna Plus Tablet] 1 each PO QHS #30 tablet 03/23/19 Allergies/Adverse Reactions: egg [Egg] Allergy (Verified 10/04/18 00:18) hydrocodone [From Vicodin] Allergy (Verified 10/04/18 00:18) propoxyphene [From Darvocet-N] Allergy (Verified 10/04/18 00:18) amiodarone Adverse Reaction (Verified 10/04/18 00:18) Respiratory distress diphenhydramine HCl [From Benadryl] Adverse Reaction (Verified 10/04/18 00:18) chest pain, bigemeny rhythm Review of Systems ROS unobtainable: Due to mental status - Severe dyspnea Physical Exam Vital Signs: Temp Pulse Resp BP Pulse Ox 98.7 F 81 23 H 140/90 H 94 04/04/19 16:25 04/04/19 16:25 04/05/19 04:01 04/05/19 04:00 04/05/19 04:01 Intake & Output 04/03/19 04/04/19 04/05/19 11:59 11:59 11:59 Intake Total 129 Balance 129 Weight 87.3 kg General appearance: PRESENT: cooperative, disheveled, morbidly obese, well- developed Head exam: PRESENT: atraumatic, normocephalic Eye exam: PRESENT: conjunctiva pink, EOMI, PERRLA. ABSENT: scleral icterus Ear exam: PRESENT: normal external ear exam Mouth exam: PRESENT: moist, tongue midline Neck exam: ABSENT: carotid bruit, JVD, lymphadenopathy, thyromegaly Respiratory exam: PRESENT: accessory muscle use, crackles, prolonged expiratory phas, retraction, rhonchi Cardiovascular exam: PRESENT: RRR, +S1, +S2, systolic murmur Pulses: PRESENT: normal dorsalis pedis pul Vascular exam: PRESENT: normal capillary refill GI/Abdominal exam: PRESENT: normal bowel sounds, soft. ABSENT: distended, guarding, mass, organolmegaly, rebound, tenderness Rectal exam: PRESENT: deferred Extremities exam: PRESENT: full ROM, +1 edema. ABSENT: calf tenderness, clubbing, pedal edema Neurological exam: PRESENT: alert, awake, oriented to person, oriented to place, oriented to time, oriented to situation, CN II-XII grossly intact. ABSENT: motor sensory deficit Psychiatric exam: PRESENT: flat affect Skin exam: PRESENT: dry, intact, warm. ABSENT: cyanosis, rash Results Laboratory Results: 04/04/19 17:15 04/04/19 17:15 04/04/19 04/04/19 04/04/19 17:15 17:15 17:15 WBC 11.3 H RBC 2.57 L Hgb 7.9 L Hct 24.2 L MCV 94 MCH 30.7 MCHC 32.6 RDW 21.4 H Plt Count 330 Seg Neutrophils % 81.9 H Carbonic Acid HCO3/H2CO3 Ratio ABG pH ABG pCO2 ABG pO2 ABG HCO3 ABG O2 Saturation ABG Base Excess FiO2 Sodium 140.5 Potassium 4.5 Chloride 106 Carbon Dioxide 23 Anion Gap 12 BUN 28 H Creatinine 2.60 H Est GFR ( Amer) 24 L Glucose 121 H Lactic Acid Calcium 8.7 Total Bilirubin 1.7 H AST 129 H Alkaline Phosphatase 231 H Total Protein 7.0 Albumin 3.8 Urine Color STRAW Urine Appearance SLIGHTLY-CLOUDY Urine pH 6.0 Ur Specific [place] 1.006 Urine Protein NEGATIVE Urine Glucose (UA) NEGATIVE Urine Ketones NEGATIVE Urine Blood SMALL H Urine Nitrite NEGATIVE Ur Leukocyte Esterase LARGE H Urine WBC (Auto) 50 Urine RBC (Auto) 7 04/04/19 04/04/19 19:46 20:26 WBC RBC Hgb Hct MCV MCH MCHC RDW Plt Count Seg Neutrophils % Carbonic Acid 1.33 HCO3/H2CO3 Ratio 19:1 ABG pH 7.39 ABG pCO2 44.3 ABG pO2 77.5 L ABG HCO3 26.2 H ABG O2 Saturation 95.3 ABG Base Excess 1.0 FiO2 40% Sodium Potassium Chloride Carbon Dioxide Anion Gap BUN Creatinine Est GFR ( Amer) Glucose Lactic Acid 1.4 Calcium Total Bilirubin AST Alkaline Phosphatase Total Protein Albumin Urine Color Urine Appearance Urine pH Ur Specific [place] Urine Protein Urine Glucose (UA) Urine Ketones Urine Blood Urine Nitrite Ur Leukocyte Esterase Urine WBC (Auto) Urine RBC (Auto) 04/04/19 04/04/19 04/04/19 17:15 17:15 20:26 Creatine Kinase 30 CK-MB (CK-2) 0.91 Troponin I 0.154 0.216 NT-Pro-B Natriuret Pep [id number] H Impressions: Chest X-Ray 04/04/19 16:38 IMPRESSION: INTERVAL WORSENING OF BILATERAL AIRSPACE DISEASE, PARTICULARLY IN THE RIGHT LUNG. Assessment and Plan - Diagnosis (1) CAP (community acquired pneumonia) due to MRSA (methicillin resistant Staphylococcus aureus) Is this a current diagnosis for this admission?: Yes Plan: Pneumonia care set, incentive spirometry, follow-up CBC, blood and sputum culture (2) Acute on chronic systolic congestive heart failure, NYHA class 3 Is this a current diagnosis for this admission?: Yes Plan: Resume outpatient regiment, fluid restriction (3) Anemia Qualifiers: Is this a current diagnosis for this admission?: Yes Plan: Transfuse as needed hemoglobin less than 8, follow-up anemia labs (4) CKD (chronic kidney disease) Is this a current diagnosis for this admission?: Yes Plan: Avoid nephrotoxic meds and doses, follow-up chemistry - Time Time Spent with patient: 25-34 minutes - Inpatient Certification Medical Necessity: Need Close Monitoring Due to Risk of Patient Decompensation
[2019-04-05 07:56] LABS: ABSOLUTE BASOPHILS # (AUTO) 0.1 10^3/uL (0.0-0.2); ABSOLUTE MONOCYTES (AUTO) 0.5 10^3/uL (0.1-1.4); ABSOLUTE NEUT (AUTO) 7.6 10^3/uL (1.7-8.2); BASOPHILS % (AUTO) 1.5 % (0-2); EOSINOPHILS % (AUTO) 0.2 % (0-6); HEMATOCRIT 22.6 % (36.0-47.0); LYMPHOCYTES % (AUTO) 10.9 % (13-45); MEAN CORPUSCULAR HEMOGLOBIN 30.3 pg (27.0-33.4); MEAN CORPUSCULAR HGB CONC 33.2 g/dL (32.0-36.0); MEAN CORPUSCULAR VOLUME 91 fl (80-97); MONOCYTES % (AUTO) 5.6 % (3-13); PLATELET COUNT 277 10^3/uL (150-450); RED BLOOD COUNT 2.48 10^6/uL (3.72-5.28); RED CELL DISTRIBUTION WIDTH 20.5 % (11.5-14.0); SEGMENTED NEUTROPHILS % (AUTO) 81.8 % (42-78); TOTAL CELLS COUNTED % (AUTO) 100 %; WHITE BLOOD COUNT 9.3 10^3/uL (4.0-10.5)
[2019-04-05 07:58] LABS: HEMOGLOBIN 7.5 g/dL (12.0-15.5)
[2019-04-05 08:08] LABS: ANION GAP 6 (5-19); BLOOD UREA NITROGEN 30 mg/dL (7-20); CALCIUM 8.5 mg/dL (8.4-10.2); CARBON DIOXIDE 27 mmol/L (22-30); CHLORIDE 107 mmol/L (98-107); GLUCOSE 85 mg/dL (75-110); POTASSIUM 4.3 mmol/L (3.6-5.0)
[2019-04-05] MEDS: ASPIRIN 81 MG TABLET, ENT COATED PO SCH (09:24)
[2019-04-05] MEDS: BUSPIRONE HCL 10 MG TABLET PO SCH ×2 (09:24→17:23)
[2019-04-05] MEDS: PAROXETINE HCL 20 MG TABLET PO SCH (09:24)
[2019-04-05] MEDS: ISOSORBIDE MONONITRATE 30 MG TAB.ER.24H PO SCH (09:24)
[2019-04-05] MEDS: APIXABAN 2.5 MG TABLET PO SCH ×2 (09:24→17:23)
[2019-04-05] MEDS ORDERED: FUROSEMIDE INJ/PF 20 MG/2 ML SDV IV PRN (10:17)
[2019-04-05] MEDS ORDERED: NORMAL SALINE 250 ML IV PRN ×2 (10:17→10:28)
--- NOTE | 2019-04-05 10:43 | PDOC PROGRESS REPORT ---
Subjective Progress Note for:: 04/05/19 Subjective:: pain Reason For Visit: PNEUMONIA CHF EXACERBATION Physical Exam Vital Signs: Temp Pulse Resp BP Pulse Ox 98.7 F 60 21 H 155/92 H 91 L 04/04/19 16:25 04/05/19 07:51 04/05/19 07:51 04/05/19 05:46 04/05/19 07:51 Intake & Output 04/04/19 04/05/19 04/06/19 06:59 06:59 06:59 Intake Total 129 Output Total 1900 Balance 129 -1900 Weight 87.3 kg General appearance: PRESENT: mild distress - on BiPAP Eye exam: PRESENT: conjunctiva pale Ear exam: PRESENT: normal external ear exam. ABSENT: bleeding, drainage Respiratory exam: PRESENT: rales - with coarse breath sounds at bases, symmetrical. ABSENT: accessory muscle use, rhonchi, tachypnea, wheezes Cardiovascular exam: PRESENT: RRR, +S1, +S2, other - very soft heart sounds GI/Abdominal exam: PRESENT: diminished bowel sounds, soft. ABSENT: tenderness Results Laboratory Results: 04/05/19 07:33 04/05/19 07:33 04/04/19 04/04/19 04/04/19 17:15 17:15 17:15 WBC 11.3 H RBC 2.57 L Hgb 7.9 L Hct 24.2 L MCV 94 MCH 30.7 MCHC 32.6 RDW 21.4 H Plt Count 330 Seg Neutrophils % 81.9 H Carbonic Acid HCO3/H2CO3 Ratio ABG pH ABG pCO2 ABG pO2 ABG HCO3 ABG O2 Saturation ABG Base Excess FiO2 Sodium 140.5 Potassium 4.5 Chloride 106 Carbon Dioxide 23 Anion Gap 12 BUN 28 H Creatinine 2.60 H Est GFR ( Amer) 24 L Glucose 121 H Lactic Acid Calcium 8.7 Total Bilirubin 1.7 H AST 129 H Alkaline Phosphatase 231 H Total Protein 7.0 Albumin 3.8 Urine Color STRAW Urine Appearance SLIGHTLY-CLOUDY Urine pH 6.0 Ur Specific [place] 1.006 Urine Protein NEGATIVE Urine Glucose (UA) NEGATIVE Urine Ketones NEGATIVE Urine Blood SMALL H Urine Nitrite NEGATIVE Ur Leukocyte Esterase LARGE H Urine WBC (Auto) 50 Urine RBC (Auto) 7 04/04/19 04/04/19 04/05/19 19:46 20:26 07:33 WBC 9.3 RBC 2.48 L Hgb 7.5 L Hct 22.6 L MCV 91 MCH 30.3 MCHC 33.2 RDW 20.5 H Plt Count 277 Seg Neutrophils % 81.8 H Carbonic Acid 1.33 HCO3/H2CO3 Ratio 19:1 ABG pH 7.39 ABG pCO2 44.3 ABG pO2 77.5 L ABG HCO3 26.2 H ABG O2 Saturation 95.3 ABG Base Excess 1.0 FiO2 40% Sodium Potassium Chloride Carbon Dioxide Anion Gap BUN Creatinine Est GFR ( Amer) Glucose Lactic Acid 1.4 Calcium Total Bilirubin AST Alkaline Phosphatase Total Protein Albumin Urine Color Urine Appearance Urine pH Ur Specific [place] Urine Protein Urine Glucose (UA) Urine Ketones Urine Blood Urine Nitrite Ur Leukocyte Esterase Urine WBC (Auto) Urine RBC (Auto) 04/05/19 07:33 WBC RBC Hgb Hct MCV MCH MCHC RDW Plt Count Seg Neutrophils % Carbonic Acid HCO3/H2CO3 Ratio ABG pH ABG pCO2 ABG pO2 ABG HCO3 ABG O2 Saturation ABG Base Excess FiO2 Sodium 139.7 Potassium 4.3 Chloride 107 Carbon Dioxide 27 Anion Gap 6 BUN 30 H Creatinine 2.37 H Est GFR ( Amer) 27 L Glucose 85 Lactic Acid Calcium 8.5 Total Bilirubin AST Alkaline Phosphatase Total Protein Albumin Urine Color Urine Appearance Urine pH Ur Specific [place] Urine Protein Urine Glucose (UA) Urine Ketones Urine Blood Urine Nitrite Ur Leukocyte Esterase Urine WBC (Auto) Urine RBC (Auto) 04/04/19 04/04/19 04/04/19 17:15 17:15 20:26 Creatine Kinase 30 CK-MB (CK-2) 0.91 Troponin I 0.154 0.216 NT-Pro-B Natriuret Pep [id number] H 04/05/19 07:33 Creatine Kinase CK-MB (CK-2) Troponin I 0.117 NT-Pro-B Natriuret Pep Impressions: Chest X-Ray 04/04/19 16:38 IMPRESSION: INTERVAL WORSENING OF BILATERAL AIRSPACE DISEASE, PARTICULARLY IN THE RIGHT LUNG. Assessment and Plan - Diagnosis (1) Acute on chronic respiratory failure with hypoxia Is this a current diagnosis for this admission?: Yes Plan: The patient has a long history of severe heart failure and has been intubated several times. She presented with increased work of breathing. Her oxygen satu ration dropped below 90% and she was placed on oxygen and BiPAP. She is currently tachypneic resting on BiPAP. (2) CAP (community acquired pneumonia) due to MRSA (methicillin resistant Staphylococcus aureus) Is this a current diagnosis for this admission?: Yes Plan: The patient has a history of bacteremia with methicillin-resistant staph aureus. In fact it is believed that her AICD/pacemaker wires are infected. She has been on an outpatient regimen of dapsone and rifampin. She was placed on vancomycin and ceftriaxone to cover MRSA as well as other organisms. We will continue antibiotic therapy as well as nebulizer treatments if needed. Supplement oxygen as required. (3) Acute renal failure superimposed on chronic kidney disease Qualifiers: Acute renal failure type: unspecified Chronic kidney disease stage: stage 3 (moderate) Qualified Code(s): N17.9 - Acute kidney failure, unspecified; N18.3 - Chronic kidney disease, stage 3 (moderate) Is this a current diagnosis for this admission?: Yes Plan: The patient presents with a GFR lower than her typical baseline. Her baseline is stage III kidney failure. There are multiple reasons for this acute injury including congestive heart failure and infection. We will try and maintain diuresis. Because her hemoglobin is below 8 I will transfuse her and increase perfusion should help with the kidney injury as well. Ideally I would like to see her hemoglobin at 9 or above due to her severe heart disease. We will have to balance this against volume overload. I have resumed Lasix twice daily. (4) Anemia Qualifiers: Anemia type: due to chronic kidney disease Chronic kidney disease stage: stage 3 (moderate) Qualified Code(s): N18.3 - Chronic kidney disease, stage 3 (moderate); D63.1 - Anemia in chronic kidney disease Is this a current diagnosis for this admission?: Yes Plan: The patient has longstanding anemia. It is likely combination of her chronic kidney disease and severe chronic illness ease. 2 serial hemoglobins were less than 8.0 and so I have ordered 2 units of packed red blood cells. We will continue to monitor the hemoglobin. (5) Ischemic cardiomyopathy with implantable cardioverter-defibrillator (ICD) Is this a current diagnosis for this admission?: Yes Plan: The patient has a severely depressed ejection fraction (20% to 25%). She has an implanted defibrillator/pacemaker. Previously it was suspected that the leads are infected. They had an abnormal appearance on transesophageal echocardiogram. In addition she has a PICC line as she has very difficult access. She is extremely high risk to exchange the lead wires. Without the exchange her prognosis is quite poor as well. Cardiology will see the patient. Based on her response to the transfusions and other therapeutic measures will discuss realistic expectations. I have ordered a palliative care consult. Please also see advance care planning note. (6) MRSA bacteremia Is this a current diagnosis for this admission?: Yes Plan: The patient has had multiple positive blood cultures in the past for MRSA. As noted above there is high suspicion for infection in her pacemaker/defibrillator leads. With her poor ejection fraction she is at extremely high risk for exchange and infected leads have a very high mortality rate. She was on dapsone and rifampin as an outpatient. She is currently on vancomycin (and ceftriaxone for pneumonia) and will monitor her renal function and dose the vancomycin per pharmacy. - Plan Summary Summary: The overall outlook is poor considering all of her comorbidities and with the infected leads the high risk of exchange in the increased mortality with infected wires. Please also see advance care planning note, but I did talk to her today and in fact she is currently DNR. I have ordered a palliative care consult as it is not unreasonable for her to consider comfort measures. - Time Total Critical Time (Minutes): 45 Medications reviewed and adjusted accordingly: Yes
[2019-04-05] MEDS: MORPHINE SULFATE 10 MG/ML INJ IV PRN ×2 (16:03→20:30)
[2019-04-05] MEDS ORDERED: CEFTRIAXONE 1 GM/D5W RTU 1 GM/50 ML RTUPB IV SCH (18:00)
[2019-04-05] MEDS: VANCOMYCIN HCL 1,000 MG in DEXTROSE 5%-WATER 250 ML IV SCH (22:14)
[2019-04-05] MEDS: ATORVASTATIN CALCIUM 80 MG TABLET PO SCH (22:15)
[2019-04-05] MEDS: SENNOSIDES/DOCUSATE 8.6-50 MG 1 EACH TABLET PO SCH (22:15)
[2019-04-05] MEDS ORDERED: FUROSEMIDE INJ/PF 20 MG/2 ML SDV IV SCH (22:45)
--- NOTE | 2019-04-05 22:50 | ADVANCED CARE ---
- Diagnosis (1) Acute on chronic respiratory failure with hypoxia Diagnosis Current: Yes (2) CAP (community acquired pneumonia) due to MRSA (methicillin resistant Staphylococcus aureus) Diagnosis Current: Yes (3) Acute renal failure superimposed on chronic kidney disease Diagnosis Current: Yes (4) Anemia Diagnosis Current: Yes (5) Ischemic cardiomyopathy with implantable cardioverter-defibrillator (ICD) Diagnosis Current: Yes (6) MRSA bacteremia Diagnosis Current: Yes (7) Urinary tract infection Diagnosis Current: Yes Attendance: The discussion was held at the bedside with the patient. Resuscitation Status: Do Not Resuscitate Discussion: After this discussion the patient did agree to DNR status. This patient is well-known to me from multiple previous admissions. She is in the an enviable position of having a severely depressed ejection fraction as well as infected pacemaker/defibrillator leads. She has had recurrent methicillin-resistant staph aureus infections and the window is between her hospitalizations have grown smaller and smaller. Patient states that she has been in pain and has been frustrated with her lack of improvement and recurrent hospitalizations. On some level she understands the extremely poor prognosis that she has given the current comorbidities. She actually admitted that she is very frustrated and in fact is giving consideration to focusing on comfort measures. I explained some of the mechanisms of transition. The first step is to make herself a DNR which in fact she did. I told her that it is not unreasonable for us to be aggressive with her care initially. She will receive 2 units of packed red blood cells and she will be on antibiotic therapy. We will try and manage her medications aggressively to try and achieve the best recovery. I told her that it is very possible that we will not make any change despite aggressive therapy. I believe that after all of her hospitalizations she is definitely understanding her circumstance. At this point she will remain DNR and if aggressive therapy does not provide meaningful recovery then I believe she will move towards hospice or comfort measures only. Have asked palliative care to evaluate the patient. Care Planning Goals: 2 established plans for ongoing care and disposition especially given the high likelihood of poor outcome. Document(s) Completed: None Time Spent: 25 minutes
[2019-04-06 00:31] LABS: ABSOLUTE BASOPHILS # (AUTO) 0.1 10^3/uL (0.0-0.2); ABSOLUTE EOSINOPHILS # (AUTO) 0.1 10^3/uL (0.0-0.6); ABSOLUTE LYMPHOCYTES (AUTO) 0.9 10^3/uL (0.5-4.7); ABSOLUTE MONOCYTES (AUTO) 0.4 10^3/uL (0.1-1.4); ABSOLUTE NEUT (AUTO) 6.8 10^3/uL (1.7-8.2); BASOPHILS % (AUTO) 0.8 % (0-2); EOSINOPHILS % (AUTO) 1.7 % (0-6); HEMATOCRIT 27.7 % (36.0-47.0); HEMOGLOBIN 9.2 g/dL (12.0-15.5); LYMPHOCYTES % (AUTO) 10.9 % (13-45); MEAN CORPUSCULAR HEMOGLOBIN 30.6 pg (27.0-33.4); MEAN CORPUSCULAR HGB CONC 33.2 g/dL (32.0-36.0); MEAN CORPUSCULAR VOLUME 92 fl (80-97); MONOCYTES % (AUTO) 4.5 % (3-13); PLATELET COUNT 223 10^3/uL (150-450); RED BLOOD COUNT 3.01 10^6/uL (3.72-5.28); RED CELL DISTRIBUTION WIDTH 19.3 % (11.5-14.0); SEGMENTED NEUTROPHILS % (AUTO) 82.1 % (42-78); TOTAL CELLS COUNTED % (AUTO) 100 %; WHITE BLOOD COUNT 8.3 10^3/uL (4.0-10.5)
[2019-04-06] MEDS: IPRATROPIUM BROMIDE 0.02% NEB 0.5 MG/2.5 ML AMPUL NEB SCH ×4 (01:33→20:14)
[2019-04-06] MEDS: LEVALBUTEROL HCL NEB 1.25 MG/3 ML AMPUL NEB SCH ×4 (01:33→20:14)
[2019-04-06] MEDS: MORPHINE SULFATE 10 MG/ML INJ IV PRN ×6 (01:53→23:24)
[2019-04-06 06:44] LABS: ABSOLUTE BASOPHILS # (AUTO) 0.1 10^3/uL (0.0-0.2); ABSOLUTE EOSINOPHILS # (AUTO) 0.2 10^3/uL (0.0-0.6); ABSOLUTE LYMPHOCYTES (AUTO) 0.7 10^3/uL (0.5-4.7); ABSOLUTE MONOCYTES (AUTO) 0.3 10^3/uL (0.1-1.4); ABSOLUTE NEUT (AUTO) 6.4 10^3/uL (1.7-8.2); BASOPHILS % (AUTO) 1.1 % (0-2); EOSINOPHILS % (AUTO) 2.1 % (0-6); HEMATOCRIT 27.8 % (36.0-47.0); HEMOGLOBIN 9.2 g/dL (12.0-15.5); LYMPHOCYTES % (AUTO) 9.7 % (13-45); MEAN CORPUSCULAR HEMOGLOBIN 30.4 pg (27.0-33.4); MEAN CORPUSCULAR VOLUME 92 fl (80-97); MONOCYTES % (AUTO) 4.4 % (3-13); PLATELET COUNT 232 10^3/uL (150-450); RED BLOOD COUNT 3.01 10^6/uL (3.72-5.28); RED CELL DISTRIBUTION WIDTH 19.3 % (11.5-14.0); SEGMENTED NEUTROPHILS % (AUTO) 82.7 % (42-78); TOTAL CELLS COUNTED % (AUTO) 100 %; WHITE BLOOD COUNT 7.7 10^3/uL (4.0-10.5)
[2019-04-06 06:49] LABS: ALBUMIN 3.1 g/dL (3.5-5.0); ALKALINE PHOSPHATASE 154 U/L (38-126); ANION GAP 6 (5-19); ASPARTATE AMINO TRANSFERASE 373 U/L (14-36); BILIRUBIN,DIRECT 0.5 mg/dL (0.0-0.4); BILIRUBIN,TOTAL 1.2 mg/dL (0.2-1.3); BLOOD UREA NITROGEN 24 mg/dL (7-20); CALCIUM 8.5 mg/dL (8.4-10.2); CARBON DIOXIDE 28 mmol/L (22-30); CHLORIDE 105 mmol/L (98-107); GLUCOSE 91 mg/dL (75-110)
[2019-04-06 06:56] LABS: PREALBUMIN 18.6 mg/dL (17.6-36.0)
[2019-04-06 07:42] LABS: ERYTHROCYTE SEDIMENTATION RATE 73 mm/hr (0-20)
[2019-04-06] MEDS: ISOSORBIDE MONONITRATE 30 MG TAB.ER.24H PO SCH (09:23)
[2019-04-06] MEDS: PAROXETINE HCL 20 MG TABLET PO SCH (09:23)
[2019-04-06] MEDS: APIXABAN 2.5 MG TABLET PO SCH ×2 (09:23→17:19)
[2019-04-06] MEDS: ASPIRIN 81 MG TABLET, ENT COATED PO SCH (09:23)
[2019-04-06] MEDS: METOPROLOL SUCCINATE 25 MG TAB.SR.24H PO SCH ×2 (09:23→21:40)
[2019-04-06] MEDS: FAMOTIDINE 20 MG TABLET PO SCH (09:23)
[2019-04-06] MEDS: BUSPIRONE HCL 10 MG TABLET PO SCH ×2 (09:23→17:19)
[2019-04-06] MEDS: FUROSEMIDE INJ/PF 20 MG/2 ML SDV IV SCH ×2 (09:24→21:40)
[2019-04-06] MEDS: FLUTICASONE NASAL SPRAY 50 MCG/SPRY 120 SPRAY/16 GM NASL SCH ×2 (09:25→21:41)
--- NOTE | 2019-04-06 13:48 | PDOC PROGRESS REPORT ---
Subjective Progress Note for:: 04/06/19 Subjective:: FRANKI DEL ROSARIO is a 48 year old female with a past medical history of coronary artery disease status post bypass graft 2006, subsequent artery stenting, congestive heart failure with an ejection fraction of 20 to 25%, AICD, COPD CKD 3, GERD, depression, morbid obesity, obstructive sleep apnea, cocaine and cannabis use. She presents with cough shortness of breath and fever. In the emergency room she is found to have uncontrolled hypertension, fever, tachypnea use of a sensory muscles to breathe, leukocytosis and infiltrate on chest x-ray. She denies chest pain nausea vomiting she receives BiPAP, empiric antibiotics and referred to the hospitalist for admission. 04/06/2019. No acute events overnight. Patient resting in bed while on supplemental oxygen in no apparent distress, denies any fever, chills, nausea, vomiting, diarrhea, constipation or any urinary symptoms. Still on 6 to 7 L of supplemental O2. Baseline 2 L/min. Reason For Visit: PNEUMONIA CHF EXACERBATION Physical Exam Vital Signs: Temp Pulse Resp BP Pulse Ox 97.3 F 60 18 106/67 99 04/06/19 11:18 04/06/19 11:18 04/06/19 11:18 04/06/19 11:18 04/06/19 11:18 Intake & Output 04/05/19 04/06/19 04/07/19 06:59 06:59 06:59 Intake Total 129 900 444 Output Total 4075 1600 Balance 129 -1465 -1156 Weight 87.3 kg 109.3 kg General appearance: PRESENT: no acute distress, well-developed, well-nourished Head exam: PRESENT: atraumatic, normocephalic Respiratory exam: PRESENT: clear to auscultation renu. ABSENT: rales, rhonchi, wheezes Cardiovascular exam: PRESENT: RRR. ABSENT: diastolic murmur, rubs, systolic murmur GI/Abdominal exam: PRESENT: normal bowel sounds, soft. ABSENT: distended, guarding, mass, organolmegaly, rebound, tenderness Neurological exam: PRESENT: alert, awake, oriented to person, oriented to place, oriented to time, oriented to situation, CN II-XII grossly intact. ABSENT: motor sensory deficit Results Laboratory Results: 04/06/19 06:19 04/06/19 06:19 04/05/19 04/06/19 04/06/19 11:10 00:13 06:19 WBC 8.3 7.7 RBC 3.01 L 3.01 L Hgb 9.2 L 9.2 L Hct 27.7 L 27.8 L MCV 92 92 MCH 30.6 30.4 MCHC 33.2 33.0 RDW 19.3 H 19.3 H Plt Count 223 232 Seg Neutrophils % 82.1 H 82.7 H Sodium Potassium Chloride Carbon Dioxide Anion Gap BUN Creatinine Est GFR ( Amer) Glucose Calcium Magnesium Total Bilirubin AST Alkaline Phosphatase Total Protein Albumin Prealbumin Blood Type B POSITIVE Antibody Screen NEGATIVE 04/06/19 06:19 WBC RBC Hgb Hct MCV MCH MCHC RDW Plt Count Seg Neutrophils % Sodium 139.1 Potassium 4.0 Chloride 105 Carbon Dioxide 28 Anion Gap 6 BUN 24 H Creatinine 2.06 H Est GFR ( Amer) 31 L Glucose 91 Calcium 8.5 Magnesium 2.4 H Total Bilirubin 1.2 AST 373 H Alkaline Phosphatase 154 H Total Protein 6.0 L Albumin 3.1 L Prealbumin 18.6 Blood Type Antibody Screen 04/04/19 04/04/19 04/04/19 17:15 17:15 20:26 Creatine Kinase 30 CK-MB (CK-2) 0.91 Troponin I 0.154 0.216 NT-Pro-B Natriuret Pep 86922 H 04/05/19 07:33 Creatine Kinase CK-MB (CK-2) Troponin I 0.117 NT-Pro-B Natriuret Pep Impressions: Chest X-Ray 04/04/19 16:38 IMPRESSION: INTERVAL WORSENING OF BILATERAL AIRSPACE DISEASE, PARTICULARLY IN THE RIGHT LUNG. Assessment and Plan - Diagnosis (1) Acute on chronic respiratory failure with hypoxia Is this a current diagnosis for this admission?: Yes Plan: SPO2 WNL on 10 L nonrebreather. Baseline 2 L/min. Multifactorial due to multiple underlying comorbidities such as A. fib, CHF, oxygen dependent COPD, pneumonia and obstructive sleep apnea. Continue BiPAP, duo nebs, LABA, LABA, ICS, IV steroids, empiric IV antibiotics, flutter valve, incentive spirometer. (2) Acute renal failure superimposed on chronic kidney disease Qualifiers: Acute renal failure type: unspecified Chronic kidney disease stage: stage 3 (moderate) Qualified Code(s): N17.9 - Acute kidney failure, unspecified; N18.3 - Chronic kidney disease, stage 3 (moderate) Is this a current diagnosis for this admission?: Yes Plan: Nonoliguric. Prerenal. Likely due to acute CHF exacerbation. Baseline creatinine 1-2. Strict in and out, daily BMP, avoid nephrotoxic meds, monitor volume status and electrolytes replace as needed. Outpatient nephrology follow-up. (3) CAP (community acquired pneumonia) due to MRSA (methicillin resistant Staphylococcus aureus) Is this a current diagnosis for this admission?: Yes Plan: History of polymicrobial pneumonia. 02/08/2019 tracheal aspirate positive for MRSA. Treated with rifampin in the past. 02/26/2019 sputum culture positive for Proteus mirabilis and enterococcus cloacae sensitive to penicillins. Currently on cefepime and vancomycin. Cultures no growth so far. (4) Anemia Qualifiers: Anemia type: due to chronic kidney disease Chronic kidney disease stage: stage 3 (moderate) Qualified Code(s): N18.3 - Chronic kidney disease, stage 3 (moderate); D63.1 - Anemia in chronic kidney disease Is this a current diagnosis for this admission?: Yes Plan: Multifactorial. Likely due to CKD and anemia of chronic disease. Status post 2 PRBC transfusion on this admission. Denies any easy bleeding, nosebleeds, hematemesis, hemoptysis, vaginal bleed, hematuria, hematochezia or melena. Monitor H&H. Supportive transfusions. Keep hemoglobin more than 9 given underlying multiple cardiac history. (5) Ischemic cardiomyopathy with implantable cardioverter-defibrillator (ICD) Is this a current diagnosis for this admission?: Yes Plan: History of severely depressed ejection fraction (20% to 25%). Status post an implanted defibrillator/pacemaker with previously infected leads as per previous JOSS. Already has a PICC line for previous MRSA bacteremia currently on vancomycin. She is extremely high risk to exchange the lead wires. Without the exchange her prognosis is quite poor as well. Continue statins, Lasix, Imdur, Beta-blockers. Cardiology consulted. Recommendations pending. (6) MRSA bacteremia Is this a current diagnosis for this admission?: Yes Plan: History of had multiple positive blood cultures in the past for MRSA with high suspicion of pacemaker/defibrillator lead infection. PICC line is in place. Currently on vancomycin. Estimated date of completion 04/16/2019. She was on rifampin as an outpatient. Repeat blood cultures on this admission no growth so far. Continue vancomycin. Monitor troughs. Monitor kidney function. Monitor vitals. - Plan Summary Summary: The overall outlook is poor considering all of her comorbidities and with the infected leads the high risk of exchange in the increased mortality with infected wires. Please also see advance care planning note, but I did talk to her today and in fact she is currently DNR. I have ordered a palliative care consult as it is not unreasonable for her to consider comfort measures.
[2019-04-06] MEDS: CEFEPIME 1 GM/D5W RTU 1 GM/50 ML RTUPB IV SCH ×2 (14:22→21:40)
[2019-04-06] MEDS: ALPRAZOLAM 0.5 MG TABLET PO PRN (21:40)
[2019-04-06] MEDS: ATORVASTATIN CALCIUM 80 MG TABLET PO SCH (21:40)
[2019-04-06] MEDS: VANCOMYCIN HCL 1,000 MG in DEXTROSE 5%-WATER 250 ML IV SCH (21:40)
[2019-04-06] MEDS: SENNOSIDES/DOCUSATE 8.6-50 MG 1 EACH TABLET PO SCH (21:40)
--- NOTE | 2019-04-06 22:10 | Progress Note ---
Provider Note Provider Note: CARDIOLOGY PROGRESS NOTE by Dr. Griselda Cruz on 04/06/2019. SUBJECTIVE: The patient is off the BiPAP and is on nasal cannula/facemask. She denies any chest pain discomfort. There is no PND orthopnea. She has cough but unable to produce any expectoration. There is no chest pain or discomfort. There is no recurrence of atrial fibrillation. There is no ventricular arrhythmias. There is no firing of the AICD. There is no bleeding on Eliquis. There is no TIA CVA symptoms. Note when the patient left the hospital her BMI was 31 now is back up to 40. LENGTHY EXAMINATION: The patient is morbidly obese. At present in no acute distress. Selected Entries 04/06/19 04/06/19 04/06/19 11:18 15:59 16:00 Temperature 97.3 F 98.0 F Temperature Oral Oral Source Pulse Rate 60 Heart Rate ( 60 Monitors) Respiratory 18 18 Rate Blood Pressure 106/67 110/58 L Blood Pressure 80 75 Mean BP Location Left Arm Right Arm BP Position Supine Supine O2 Sat by Pulse 99 91 L Oximetry Oxygen Flow 10.00 6.00 Rate Oxygen Delivery Nasal Cannula Nasal Cannula Method HEAD: Is atraumatic normocephalic. EYES: Pupils are equal round regular reactive to light. HEENT is negative. SKIN: There is no skin rashes or skin lesions. There is no particular ecchymosis. NECK: Is supple. There is mild JVD present. Carotids are equal there is no bruits. There is no lymphadenopathy. There is no goiter. There is no accessory muscle respiration use. Trachea central. LUNGS: At present the lungs are fairly clear to auscultation, without any rhonchi rales or wheezing. There is diminished air entry. On percussion there is hyperresonance. On palpation there is no chest wall tenderness. HEART: S1-S2 is heard. There is no S3 gallop. There is no S4 gallop. There is systolic murmur mitral regurgitation tricuspid regurgitation present. There is no aortic stenosis murmur. There is no aortic insufficiency murmur. There is no rub. ABDOMEN: Is obese. Nontender. There is no hepatosplenomegaly. Bowel sounds are well heard. There is no rebound guarding or rigidity. EXTREMITIES: Femorals are deep. Femorals are diminished. There is no femoral bruits. There is decreased leg pulses. There is mild pedal edema. assistant community director the patient is conscious awake alert oriented x3 with no focal deficits. PSYCHIATRIC: The patient judgment insight are intact. She does not appear to be agitated or anxious. Labs- All tests 24 hr 04/05/19 04/06/19 04/06/19 11:10 00:13 06:19 WBC 8.3 7.7 RBC 3.01 L 3.01 L Hgb 9.2 L 9.2 L Hct 27.7 L 27.8 L MCV 92 92 MCH 30.6 30.4 MCHC 33.2 33.0 RDW 19.3 H 19.3 H Plt Count 223 232 Lymph % (Auto) 10.9 L 9.7 L [place] % (Auto) 4.5 4.4 Eos % (Auto) 1.7 2.1 Baso % (Auto) 0.8 1.1 Absolute Neuts (auto) 6.8 6.4 Absolute Lymphs (auto) 0.9 0.7 Absolute Monos (auto) 0.4 0.3 Absolute Eos (auto) 0.1 0.2 Absolute Basos (auto) 0.1 0.1 Seg Neutrophils % 82.1 H 82.7 H ESR 73 H Sodium Potassium Chloride Carbon Dioxide Anion Gap BUN Creatinine Est GFR ( Amer) Est GFR (MDRD) Non-Af Glucose Calcium Magnesium Total Bilirubin Direct Bilirubin Neonat Total Bilirubin Neonat Direct Bilirubin Neonat Indirect Bili AST ALT Alkaline Phosphatase Total Protein Albumin Prealbumin Crossmatch See Detail 04/06/19 06:19 WBC RBC Hgb Hct MCV MCH MCHC RDW Plt Count Lymph % (Auto) [place] % (Auto) Eos % (Auto) Baso % (Auto) Absolute Neuts (auto) Absolute Lymphs (auto) Absolute Monos (auto) Absolute Eos (auto) Absolute Basos (auto) Seg Neutrophils % ESR Sodium 139.1 Potassium 4.0 Chloride 105 Carbon Dioxide 28 Anion Gap 6 BUN 24 H Creatinine 2.06 H Est GFR ( Amer) 31 L Est GFR (MDRD) Non-Af 26 L Glucose 91 Calcium 8.5 Magnesium 2.4 H Total Bilirubin 1.2 Direct Bilirubin 0.5 H Neonat Total Bilirubin Not Reportable Neonat Direct Bilirubin Not Reportable Neonat Indirect Bili Not Reportable AST 373 H ALT 308 Alkaline Phosphatase 154 H Total Protein 6.0 L Albumin 3.1 L Prealbumin 18.6 Crossmatch Chest X-Ray 04/04/19 16:38 IMPRESSION: INTERVAL WORSENING OF BILATERAL AIRSPACE DISEASE, PARTICULARLY IN THE RIGHT LUNG. IMPRESSION/RECOMMENDATION: 1. Acute on chronic respiratory failure. This is 2. Elevated troponin I most likely secondary to supply demand mismatch. No evidence of non-ST elevation [place]. Hence we will treat the underlying cause and not treat this as a non-ST elevation [place]. 3. Acute on chronic systolic heart failure. Patient with LV ejection fraction of 25%. Continue beta-blockers and Entresto. Continue diuretics. 4. Acute exacerbation COPD: Continue bronchodilators 5. MRSA pneumonia: Continue antibiotics. 6. History of amiodarone toxicity. Would recommend avoiding amiodarone 7. Acute on chronic kidney disease: Watch renal function as we implement aggressive diuresis. At present patient has chronic kidney disease stage III with a GFR of 43 mL per per minute. 8. Cardiomyopathy with severely reduced LV ejection fraction. Her medications adjusted. Her beta-rip has been decreased to Toprol 25 mg XL once daily since she is taking by mouth. Entresto has been decreased to 49/51.. Will decrease the patient's isosorbide mononitrate from 60 mg to 30 mg p.o. daily. 9. Paroxysmal atrial fibrillation: Continue beta-rip. The patient Eliquis had to be stopped due to patient's anemia and also prior occult positive bloo blood in the stools. The patient later will be restarted on Eliquis. 10. History of ventricular tachycardia, The patient has an AICD placed. If there is recurrence of ventricular tachycardia or major ventricular ectopic activity then would start the patient on small dose of sotalol. Would avoid amiodarone. 11. Hypertension: Blood pressure well controlled, on current medications. 12. Coronary artery disease: History of [place] and history of coronary bypass graft surgery. No evidence of acute coronary syndrome/non-ST ST elevation [place] this admission. 13. Obstructive sleep apnea. Note patient has been noncompliant with CPAP. Most likely has significant pulmonary hypertension. 14. AICD placement: Note the patient's basal rate is around 60 bpm. If the patient's heart failure continues then would recommend increasing the basal heart rate to 80 bpm to help combat the heart failure along with diuretics. 15. MRSA bacteremia: Continue antibiotics. Repeat blood cultures are far negative for growth of MRSA. As per furnace cleaner note of 03/07/2019 and the hospitalist notes the patient should be on dapsone and rifampin until 04/16/2019. Will discuss with the hospitalist to reinstitute these. The 6-week antibiotic course is from the time of her first negative blood culture. Medications reviewed. Medical regimen and management plan discussed with attending physician. The patient is on multiple medications and has multiple comorbidities. Hence medical decision making is of high complexity. 40 minutes spent on this patient with more than 50% time spent in direct patient care. Will follow
[2019-04-07] MEDS: IPRATROPIUM BROMIDE 0.02% NEB 0.5 MG/2.5 ML AMPUL NEB SCH ×4 (01:53→20:20)
[2019-04-07] MEDS: LEVALBUTEROL HCL NEB 1.25 MG/3 ML AMPUL NEB SCH ×4 (01:53→20:20)
[2019-04-07] MEDS: MORPHINE SULFATE 10 MG/ML INJ IV PRN (03:40)
[2019-04-07 05:55] LABS: HEMATOCRIT 27.2 % (36.0-47.0); MEAN CORPUSCULAR HEMOGLOBIN 30.5 pg (27.0-33.4); MEAN CORPUSCULAR HGB CONC 33.1 g/dL (32.0-36.0); MEAN CORPUSCULAR VOLUME 92 fl (80-97); PLATELET COUNT 245 10^3/uL (150-450); RED BLOOD COUNT 2.95 10^6/uL (3.72-5.28); RED CELL DISTRIBUTION WIDTH 19.2 % (11.5-14.0)
[2019-04-07 06:13] LABS: ALKALINE PHOSPHATASE 139 U/L (38-126); ASPARTATE AMINO TRANSFERASE 207 U/L (14-36); BILIRUBIN,DIRECT 0.4 mg/dL (0.0-0.4); BLOOD UREA NITROGEN 19 mg/dL (7-20); CALCIUM 8.5 mg/dL (8.4-10.2); GLUCOSE 90 mg/dL (75-110); POTASSIUM 3.9 mmol/L (3.6-5.0); TOTAL PROTEIN 5.9 g/dL (6.3-8.2)
[2019-04-07 06:18] LABS: CARBON DIOXIDE 32 mmol/L (22-30); CHLORIDE 105 mmol/L (98-107)
[2019-04-07 06:20] LABS: ANION GAP 4 (5-19)
[2019-04-07] MEDS ORDERED: OXYCODONE-ACETAMINOPHEN 5-325 MG TABLET ONE ×2 (08:21→08:34)
[2019-04-07] MEDS ORDERED: OXYCODONE-ACETAMINOPHEN 5-325 MG TABLET PO PRN ×2 (08:39)
--- NOTE | 2019-04-07 10:21 | PDOC PROGRESS REPORT ---
Subjective Progress Note for:: 04/07/19 Subjective:: FRANKI DEL ROSARIO is a 48 year old female with a past medical history of coronary artery disease status post bypass graft 2006, subsequent artery stenting, congestive heart failure with an ejection fraction of 20 to 25%, AICD, COPD CKD 3, GERD, depression, morbid obesity, obstructive sleep apnea, cocaine and cannabis use. She presents with cough shortness of breath and fever. In the emergency room she is found to have uncontrolled hypertension, fever, tachypnea use of a sensory muscles to breathe, leukocytosis and infiltrate on chest x-ray. She denies chest pain nausea vomiting she receives BiPAP, empiric antibiotics and referred to the hospitalist for admission. 04/06/2019. No acute events overnight. Patient resting in bed while on supplemental oxygen in no apparent distress, denies any fever, chills, nausea, vomiting, diarrhea, constipation or any urinary symptoms. Still on 6 to 7 L of supplemental O2. Baseline 2 L/min. 04/07/2019. No acute events overnight. Respiratory symptoms improving. SPO2 the urinal on 5 L denies any fever, chills, nausea, vomiting, diarrhea, constipation or any urinary symptoms. P.o. tolerant. Reason For Visit: PNEUMONIA CHF EXACERBATION Physical Exam Vital Signs: Temp Pulse Resp BP Pulse Ox 97.9 F 59 L 22 H 113/73 94 04/07/19 07:33 04/07/19 07:33 04/07/19 07:33 04/07/19 07:33 04/07/19 07:33 Intake & Output 04/06/19 04/07/19 04/08/19 06:59 06:59 06:59 Intake Total 900 1806 Output Total 8507 1558 Balance -4593 -7694 Weight 109.3 kg 109.3 kg General appearance: PRESENT: no acute distress, obese Head exam: PRESENT: atraumatic, normocephalic Respiratory exam: PRESENT: crackles - Bibasilar. ABSENT: rales, rhonchi, wheezes Cardiovascular exam: PRESENT: RRR. ABSENT: diastolic murmur, rubs, systolic murmur GI/Abdominal exam: PRESENT: normal bowel sounds, soft. ABSENT: distended, guarding, mass, organolmegaly, rebound, tenderness Neurological exam: PRESENT: alert, awake, oriented to person, oriented to place, oriented to time, oriented to situation, CN II-XII grossly intact. ABSENT: motor sensory deficit Results Laboratory Results: 04/07/19 05:44 04/07/19 05:44 04/07/19 04/07/19 05:44 05:44 WBC 6.0 RBC 2.95 L Hgb 9.0 L Hct 27.2 L MCV 92 MCH 30.5 MCHC 33.1 RDW 19.2 H Plt Count 245 Sodium 140.8 Potassium 3.9 Chloride 105 Carbon Dioxide 32 H Anion Gap 4 L BUN 19 Creatinine 1.90 H Est GFR ( Amer) 34 L Glucose 90 Calcium 8.5 Magnesium 2.3 Total Bilirubin 1.0 AST 207 H Alkaline Phosphatase 139 H Total Protein 5.9 L Albumin 3.0 L 04/04/19 04/04/19 04/04/19 17:15 17:15 20:26 Creatine Kinase 30 CK-MB (CK-2) 0.91 Troponin I 0.154 0.216 NT-Pro-B Natriuret Pep 89123 H 04/05/19 07:33 Creatine Kinase CK-MB (CK-2) Troponin I 0.117 NT-Pro-B Natriuret Pep Impressions: Chest X-Ray 04/04/19 16:38 IMPRESSION: INTERVAL WORSENING OF BILATERAL AIRSPACE DISEASE, PARTICULARLY IN THE RIGHT LUNG. Assessment and Plan - Diagnosis (1) Acute on chronic respiratory failure with hypoxia Is this a current diagnosis for this admission?: Yes Plan: Mild improvement. SPO2 WNL on 5 L. Baseline 2 L/min. Multifactorial due to multiple underlying comorbidities such as A. fib, CHF, oxygen dependent COPD, pneumonia and obstructive sleep apnea. Continue BiPAP, duo nebs, LABA, LABA, ICS, IV steroids, empiric IV antibiotics, flutter valve, incentive spirometer. (2) Acute renal failure superimposed on chronic kidney disease Qualifiers: Acute renal failure type: unspecified Chronic kidney disease stage: stage 3 (moderate) Qualified Code(s): N17.9 - Acute kidney failure, unspecified; N18.3 - Chronic kidney disease, stage 3 (moderate) Is this a current diagnosis for this admission?: Yes Plan: Improving. Creatinine 1.9 today. Nonoliguric. Prerenal. Likely due to acute CHF exacerbation. Baseline creatinine 1-2. Strict in and out, daily BMP, avoid nephrotoxic meds, monitor volume status and electrolytes replace as needed. Outpatient nephrology follow-up. (3) CAP (community acquired pneumonia) due to MRSA (methicillin resistant Staphylococcus aureus) Is this a current diagnosis for this admission?: Yes Plan: History of polymicrobial pneumonia. Cultures on this admission negative. High risk for healthcare associated pneumonia. 02/08/2019 tracheal aspirate positive for MRSA sensitive to vancomycin, dapsone and rifampini. 02/26/2019 sputum culture positive for Proteus mirabilis and enterococcus cloacae sensitive to penicillins. Should be on daptomycin and rifampin for total of 6 weeks starting on 02/11/2019 estimated date of completion 03/16/2019 as per limnology teacher note Dr. Horvath's 03/07/2019 who had consulted infectious disease specialist. In previous admission patient was started on daptomycin and rifampin as per ID recommendation however CK was trending up and daptomycin was switched to vancomycin. Patient has a PICC line placed in the previous admission. Continue vancomycin and rifampin EOT 04/16/2019. IV cefepime day 2. Continue vancomycin and rifampin as scheduled before. Continue cefepime. (4) Anemia Qualifiers: Anemia type: due to chronic kidney disease Chronic kidney disease stage: stage 3 (moderate) Qualified Code(s): N18.3 - Chronic kidney disease, stage 3 (moderate); D63.1 - Anemia in chronic kidney disease Is this a current diagnosis for this admission?: Yes Plan: Multifactorial. Likely due to CKD and anemia of chronic disease. Status post 2 PRBC transfusion on this admission. Denies any easy bleeding, nosebleeds, hematemesis, hemoptysis, vaginal bleed, hematuria, hematochezia or melena. Monitor H&H. Supportive transfusions. Keep hemoglobin more than 9 given underlying multiple cardiac history. (5) Ischemic cardiomyopathy with implantable cardioverter-defibrillator (ICD) Is this a current diagnosis for this admission?: Yes Plan: History of severely depressed ejection fraction (20% to 25%). Status post an implanted defibrillator/pacemaker with previously infected leads as per previous JOSS. Already has a PICC line for previous MRSA bacteremia currently on vancomycin and rifampin. She is extremely high risk to exchange the lead wires. Without the exchange her prognosis is quite poor as well. Continue statins, Lasix, Imdur, Beta-blockers. Cardiology consulted. Recommendations pending. (6) MRSA bacteremia Is this a current diagnosis for this admission?: Yes Plan: History of had multiple positive blood cultures in the past for MRSA with high suspicion of pacemaker/defibrillator lead infection. Should be on daptomycin and rifampin for total of 6 weeks starting on 02/11/2019 estimated date of completion 03/16/2019 as per limnology teacher note Dr. Horvath's 03/07/2019 who had consulted infectious disease specialist. In previous admission patient was started on daptomycin and rifampin as per ID recommendation however CK was trending up and daptomycin was switched to vancomycin. Patient has a PICC line placed in the previous admission. Continue vancomycin and rifampin EOT 04/16/2019. Repeat blood cultures on this admission no growth so far. Continue vancomycin and Rifampin. Monitor troughs. Monitor kidney function. Monitor vitals.
[2019-04-07] MEDS: PAROXETINE HCL 20 MG TABLET PO SCH (10:57)
[2019-04-07] MEDS: FAMOTIDINE 20 MG TABLET PO SCH (10:57)
[2019-04-07] MEDS: METOPROLOL SUCCINATE 25 MG TAB.SR.24H PO SCH ×2 (10:58→22:06)
[2019-04-07] MEDS: FUROSEMIDE INJ/PF 20 MG/2 ML SDV IV SCH ×2 (10:58→22:06)
[2019-04-07] MEDS: ISOSORBIDE MONONITRATE 30 MG TAB.ER.24H PO SCH (10:58)
[2019-04-07] MEDS: BUSPIRONE HCL 10 MG TABLET PO SCH ×2 (10:58→17:52)
[2019-04-07] MEDS: ASPIRIN 81 MG TABLET, ENT COATED PO SCH (10:58)
[2019-04-07] MEDS: APIXABAN 2.5 MG TABLET PO SCH ×2 (10:58→17:52)
[2019-04-07] MEDS: CEFEPIME 1 GM/D5W RTU 1 GM/50 ML RTUPB IV SCH ×2 (10:59→21:52)
[2019-04-07] MEDS: FLUTICASONE NASAL SPRAY 50 MCG/SPRY 120 SPRAY/16 GM NASL SCH ×2 (11:03→22:12)
[2019-04-07] MEDS: RIFAMPIN 600 MG in NORMAL SALINE 500 ML IV SCH (12:18)
[2019-04-07] MEDS ORDERED: PROMETHAZINE HCL INJ 25 MG/1 ML VIAL IV PRN (15:43)
[2019-04-07] MEDS: NORMAL SALINE 10 ML SDV (AFTER EACH USE) IV PRN (16:09)
[2019-04-07] MEDS: ATORVASTATIN CALCIUM 80 MG TABLET PO SCH (22:06)
[2019-04-07] MEDS: NORMAL SALINE 10 ML SDV (SCHEDULED) IV SCH (22:07)
[2019-04-07] MEDS: OXYCODONE-ACETAMINOPHEN 5-325 MG TABLET PO PRN (22:09)
[2019-04-07] MEDS: SENNOSIDES/DOCUSATE 8.6-50 MG 1 EACH TABLET PO SCH (22:13)
--- NOTE | 2019-04-07 22:17 | Progress Note ---
Provider Note Provider Note: Cardiology PROGRESS NOTE by Dr. Griselda Martin on 04/07/2019. Subjective: The patient states that shortness breath is improved. She still has cough is producing some yellowish sputum. There is no pleuritic chest pain. There is no hemoptysis. There is no chest pain or discomfort. The patient has some orthopnea but no PND. There is no leg edema. There is no recurrence of atrial fibrillation. There is no ventricular arrhythmia seen. There is no firing of the patient's AICD. There is no TIA CVA symptoms. There is no bleeding on Eliquis. Note that the patient has been started back on rifampin and dapsone by the hospitalist. This is according to the patient's prior recommendation during the last admission. Physical EXAMINATION: The Patient Is Morbidly Obese. In No Acute Distress. Selected Entries 04/07/19 04/07/19 16:00 16:06 Temperature 98.0 F Temperature Oral Source Pulse Rate 57 L Heart Rate ( 60 Monitors) Respiratory 16 Rate Blood Pressure 103/62 Blood Pressure 75 Mean BP Location Right Arm BP Position Sitting O2 Sat by Pulse 96 Oximetry Oxygen Flow 6.00 Rate Oxygen Delivery Nasal Cannula Method HEAD: Is atraumatic normocephalic. EYES: Pupils are equal round regular reactive to light. HEENT is negative. SKIN: There is no skin rashes or skin lesions. There is no particular ecchymosis. NECK: Is supple. There is mild JVD present. Carotids are equal there is no bruits. There is no lymphadenopa thy. There is no goiter. There is no accessory muscle respiration use. Trachea central. LUNGS: At present the lungs are fairly clear to auscultation, without any rhonchi or wheezing. There is dry crackles in the right lower lobe and right middle lobe. There is egophony in the right middle lobe. There is diminished air entry. On percussion there is hyperresonance. On palpation there is no chest wall tenderness. HEART: S1-S2 is heard. There is no S3 gallop. There is no S4 gallop. There is systolic murmur mitral regurgitation tricuspid regurgitation present. There is no aortic stenosis murmur. There is no aortic insufficiency murmur. There is no rub. ABDOMEN: Is obese. Nontender. There is no hepatosplenomegaly. Bowel sounds are well heard. There is no rebound guarding or rigidity. EXTREMITIES: Femorals are deep. Femorals are diminished. There is no femoral bruits. There is decreased leg pulses. There is mild pedal edema. ritual circumciser the patient is conscious awake alert oriented x3 with no focal deficits. PSYCHIATRIC: The patient judgment insight are intact. She does not appear to be agitated or anxious. IMPRESSION/RECOMMENDATION: 1. Acute on chronic respiratory failure. This is 2. Elevated troponin I most likely secondary to supply demand mismatch. No evidence of non-ST elevation [place]. Hence we will treat the underlying cause and not treat this as a non-ST elevation [place]. 3. Acute on chronic systolic heart failure. Patient with LV ejection fraction of 25%. Continue beta-blockers and Entresto. Continue diuretics. 4. Acute exacerbation COPD: Continue bronchodilators 5. MRSA pneumonia: Continue antibiotics. There is egophony suggestive of consolidation in the right middle lobe. We will recheck the patient's chest x- ray in the a.m. 6. History of amiodarone toxicity. Would recommend avoiding amiodarone 7. Acute on chronic kidney disease: Watch renal function as we implement aggressive diuresis. At present patient has chronic kidney disease stage III with a GFR of 43 mL per per minute. 8. Cardiomyopathy with severely reduced LV ejection fraction. Her medications adjusted. Her beta-rip has been decreased to Toprol 25 mg XL once daily since she is taking by mouth. Entresto has been decreased to 49/51.. Will decrease the patient's isosorbide mononitrate from 60 mg to 30 mg p.o. daily. 9. Paroxysmal atrial fibrillation: Continue beta-rip. The patient Eliquis had to be stopped due to patient's anemia and also prior occult positive bloo blood in the stools. The patient later will be restarted on Eliquis. 10. History of ventricular tachycardia, The patient has an AICD placed. If there is recurrence of ventricular tachycardia or major ventricular ectopic activity then would start the patient on small dose of sotalol. Would avoid amiodarone. 11. Hypertension: Blood pressure well controlled, on current medications. 12. Coronary artery disease: History of [place] and history of coronary bypass graft surgery. No evidence of acute coronary syndrome/non-ST ST elevation [place] this admission. 13. Obstructive sleep apnea. Note patient has been noncompliant with CPAP. Most likely has significant pulmonary hypertension. 14. AICD placement: Note the patient's basal rate is around 60 bpm. If the patient's heart failure continues then would recommend increasing the basal heart rate to 80 bpm to help combat the heart failure along with diuretics. 15. MRSA bacteremia: Continue antibiotics. Repeat blood cultures are far negative for growth of MRSA. As per post anesthesia care unit nurse note of 03/07/2019 and the hospitalist notes the patient should be on dapsone and rifampin until 04/16/2019. Will discuss with the hospitalist to reinstitute these. The 6-week antibiotic course is from the time of her first negative blood culture. Medications reviewed. Medical regimen and management plan discussed with attending physician. The patient is on multiple medications and has multiple comorbidities. Hence medical decision making is of high complexity. 40 minutes spent on this patient with more than 50% time spent in direct patient care. Will follow
[2019-04-07 22:32] LABS: VANCOMYCIN,TROUGH 14.8 ug/mL (5.0-20.0)
[2019-04-07] MEDS: VANCOMYCIN HCL 1,000 MG in DEXTROSE 5%-WATER 250 ML IV SCH (22:56)
[2019-04-08] MEDS: IPRATROPIUM BROMIDE 0.02% NEB 0.5 MG/2.5 ML AMPUL NEB SCH ×4 (02:01→20:52)
[2019-04-08] MEDS: LEVALBUTEROL HCL NEB 1.25 MG/3 ML AMPUL NEB SCH ×4 (02:01→20:52)
[2019-04-08 05:52] LABS: ABSOLUTE EOSINOPHILS # (AUTO) 0.1 10^3/uL (0.0-0.6); ABSOLUTE LYMPHOCYTES (AUTO) 0.7 10^3/uL (0.5-4.7); ABSOLUTE MONOCYTES (AUTO) 0.4 10^3/uL (0.1-1.4); ABSOLUTE NEUT (AUTO) 4.1 10^3/uL (1.7-8.2); BASOPHILS % (AUTO) 0.7 % (0-2); EOSINOPHILS % (AUTO) 2.5 % (0-6); HEMATOCRIT 26.7 % (36.0-47.0); LYMPHOCYTES % (AUTO) 12.5 % (13-45); MEAN CORPUSCULAR HGB CONC 33.8 g/dL (32.0-36.0); MEAN CORPUSCULAR VOLUME 92 fl (80-97); MONOCYTES % (AUTO) 8.2 % (3-13); PLATELET COUNT 227 10^3/uL (150-450); RED BLOOD COUNT 2.91 10^6/uL (3.72-5.28); RED CELL DISTRIBUTION WIDTH 19.1 % (11.5-14.0); SEGMENTED NEUTROPHILS % (AUTO) 76.1 % (42-78); TOTAL CELLS COUNTED % (AUTO) 100 %; WHITE BLOOD COUNT 5.3 10^3/uL (4.0-10.5)
[2019-04-08 06:20] LABS: ALBUMIN 2.9 g/dL (3.5-5.0); ALKALINE PHOSPHATASE 133 U/L (38-126); ANION GAP 5 (5-19); ASPARTATE AMINO TRANSFERASE 91 U/L (14-36); BILIRUBIN,DIRECT 0.6 mg/dL (0.0-0.4); BILIRUBIN,TOTAL 1.5 mg/dL (0.2-1.3); BLOOD UREA NITROGEN 19 mg/dL (7-20); CALCIUM 8.4 mg/dL (8.4-10.2); CARBON DIOXIDE 32 mmol/L (22-30); CHLORIDE 106 mmol/L (98-107); GLUCOSE 88 mg/dL (75-110); POTASSIUM 4.1 mmol/L (3.6-5.0); TOTAL PROTEIN 5.9 g/dL (6.3-8.2)
[2019-04-08] MEDS: OXYCODONE-ACETAMINOPHEN 5-325 MG TABLET PO PRN ×4 (07:50→22:32)
--- NOTE | 2019-04-08 08:42 | RADIOLOGY REPORT (SQ) ---
EXAM DESCRIPTION: CHEST SINGLE VIEW COMPLETED DATE/TIME: 04/08/2019 6:28 am REASON FOR STUDY: PNA / CHF COMPARISON: 04/04/2019 NUMBER OF VIEWS: One view. TECHNIQUE: Single frontal radiographic view of the chest acquired. LIMITATIONS: Overlying support apparatus. FINDINGS: LUNGS AND PLEURA: Bilateral airspace disease. No significant change allowing for differen maya in technique. MEDIASTINUM AND HILAR STRUCTURES: Stable. HEART AND VASCULATURE: Cardiac enlargement. Vascular congestion. BONES: No acute findings. HARDWARE: CABG. Defibrillator. OTHER: No other significant finding. IMPRESSION: CHF. No significant change. TECHNICAL DOCUMENTATION: JOB ID: [id number] [employer]- All Rights Reserved Reading location - IP/workstation name: [email or web address]
[2019-04-08] MEDS: CEFEPIME 1 GM/D5W RTU 1 GM/50 ML RTUPB IV SCH ×2 (10:04→22:27)
[2019-04-08] MEDS: FLUTICASONE NASAL SPRAY 50 MCG/SPRY 120 SPRAY/16 GM NASL SCH ×2 (10:05→22:34)
[2019-04-08] MEDS: APIXABAN 2.5 MG TABLET PO SCH ×2 (10:05→17:48)
[2019-04-08] MEDS: BUSPIRONE HCL 10 MG TABLET PO SCH ×2 (10:05→17:48)
[2019-04-08] MEDS: ASPIRIN 81 MG TABLET, ENT COATED PO SCH (10:05)
[2019-04-08] MEDS: METOPROLOL SUCCINATE 25 MG TAB.SR.24H PO SCH ×2 (10:05→22:29)
[2019-04-08] MEDS: PAROXETINE HCL 20 MG TABLET PO SCH (10:05)
[2019-04-08] MEDS: ISOSORBIDE MONONITRATE 30 MG TAB.ER.24H PO SCH (10:05)
[2019-04-08] MEDS: FUROSEMIDE INJ/PF 20 MG/2 ML SDV IV SCH ×2 (10:07→22:25)
[2019-04-08] MEDS: RIFAMPIN 600 MG in NORMAL SALINE 500 ML IV SCH (12:23)
[2019-04-08] MEDS: NORMAL SALINE 10 ML SDV (SCHEDULED) IV SCH ×2 (12:24→22:29)
[2019-04-08] MEDS: FAMOTIDINE 20 MG TABLET PO SCH (12:24)
--- NOTE | 2019-04-08 12:56 | PDOC PROGRESS REPORT ---
Subjective Progress Note for:: 04/08/19 Subjective:: FRANKI DEL ROSARIO is a 48 year old female with a past medical history of coronary artery disease status post bypass graft 2006, subsequent artery stenting, congestive heart failure with an ejection fraction of 20 to 25%, AICD, COPD CKD 3, GERD, depression, morbid obesity, obstructive sleep apnea, cocaine and cannabis use. She presents with cough shortness of breath and fever. In the emergency room she is found to have uncontrolled hypertension, fever, tachypnea use of a sensory muscles to breathe, leukocytosis and infiltrate on chest x-ray. She denies chest pain nausea vomiting she receives BiPAP, empiric antibiotics and referred to the hospitalist for admission. 04/06/2019. No acute events overnight. Patient resting in bed while on supplemental oxygen in no apparent distress, denies any fever, chills, nausea, vomiting, diarrhea, constipation or any urinary symptoms. Still on 6 to 7 L of supplemental O2. Baseline 2 L/min. 04/07/2019. No acute events overnight. Respiratory symptoms improving. SPO2 the urinal on 5 L denies any fever, chills, nausea, vomiting, diarrhea, constipation or any urinary symptoms. P.o. tolerant. 04/08/2019. No acute events overnight. Patient resting comfortably in bed no apparent distress, on supplemental oxygen, denies any fever, chills, nausea, vomiting, diarrhea, constipation or any urinary symptoms. Still on 5 L, desaturates to 88% when trying to wean down. Reason For Visit: PNEUMONIA CHF EXACERBATION Physical Exam Vital Signs: Temp Pulse Resp BP Pulse Ox 98.5 F 66 16 118/75 92 04/08/19 11:08 04/08/19 11:08 04/08/19 11:08 04/08/19 11:08 04/08/19 11:08 Intake & Output 04/07/19 04/08/19 04/09/19 06:59 06:59 06:59 Intake Total 1806 1580 Output Total 4250 2900 Balance -2444 -1320 Weight 109.3 kg 110.5 kg General appearance: PRESENT: no acute distress, morbidly obese, well-developed, well-nourished Head exam: PRESENT: atraumatic, normocephalic Respiratory exam: PRESENT: crackles. ABSENT: rales, rhonchi, wheezes Cardiovascular exam: PRESENT: RRR. ABSENT: diastolic murmur, rubs, systolic murmur GI/Abdominal exam: PRESENT: normal bowel sounds, soft. ABSENT: distended, guarding, mass, organolmegaly, rebound, tenderness Neurological exam: PRESENT: alert, awake, oriented to person, oriented to place, oriented to time, oriented to situation, CN II-XII grossly intact. ABSENT: motor sensory deficit Results Laboratory Results: 04/08/19 05:20 04/08/19 05:20 04/08/19 04/08/19 05:20 05:20 WBC 5.3 RBC 2.91 L Hgb 9.0 L Hct 26.7 L MCV 92 MCH 31.0 MCHC 33.8 RDW 19.1 H Plt Count 227 Seg Neutrophils % 76.1 Sodium 142.7 Potassium 4.1 Chloride 106 Carbon Dioxide 32 H Anion Gap 5 BUN 19 Creatinine 1.79 H Est GFR ( Amer) 37 L Glucose 88 Calcium 8.4 Magnesium 2.1 Total Bilirubin 1.5 H AST 91 H Alkaline Phosphatase 133 H Total Protein 5.9 L Albumin 2.9 L 04/04/19 17:15 Catheterized Urine Urine Culture - Final NO GROWTH 2 DAYS 04/04/19 04/04/19 04/04/19 17:15 17:15 20:26 Creatine Kinase 30 CK-MB (CK-2) 0.91 Troponin I 0.154 0.216 NT-Pro-B Natriuret Pep [id number] H 04/05/19 07:33 Creatine Kinase CK-MB (CK-2) Troponin I 0.117 NT-Pro-B Natriuret Pep Impressions: Chest X-Ray 04/08/19 06:00 IMPRESSION: CHF. No significant change. Assessment and Plan - Diagnosis (1) Acute on chronic respiratory failure with hypoxia Is this a current diagnosis for this admission?: Yes Plan: Mild improvement. SPO2 WNL on 5 L. Baseline 2 L/min. Repeat chest x-ray shows no significant changes. Multifactorial due to multiple underlying comorbidities such as A. fib, CHF, oxygen dependent COPD, pneumonia and obstructive sleep apnea. Continue BiPAP, duo nebs, LABA, LABA, ICS, IV steroids, empiric IV antibiotics, flutter valve, incentive spirometer. (2) Acute renal failure superimposed on chronic kidney disease Qualifiers: Acute renal failure type: unspecified Chronic kidney disease stage: stage 3 (moderate) Qualified Code(s): N17.9 - Acute kidney failure, unspecified; N18.3 - Chronic kidney disease, stage 3 (moderate) Is this a current diagnosis for this admission?: Yes Plan: Improving. Creatinine 1.79 today. Nonoliguric. Prerenal. Likely due to acute CHF exacerbation. Baseline creatinine 1-2. Strict in and out, daily BMP, avoid nephrotoxic meds, monitor volume status and electrolytes replace as needed. Outpatient nephrology follow-up. (3) CAP (community acquired pneumonia) due to MRSA (methicillin resistant Staphylococcus aureus) Is this a current diagnosis for this admission?: Yes Plan: History of polymicrobial pneumonia. Cultures on this admission negative. High risk for healthcare associated pneumonia. 02/08/2019 tracheal aspirate positive for MRSA sensitive to vancomycin, dapsone and rifampini. 02/26/2019 sputum culture positive for Proteus mirabilis and enterococcus cloacae sensitive to penicillins. Should be on daptomycin and rifampin for total of 6 weeks starting on 02/11/2019 estimated date of completion 03/16/2019 as per surgical oncologist note Dr. Horvath's 03/07/2019 who had consulted infectious disease specialist. In previous admission patient was started on daptomycin and rifampin as per ID recommendation however CK was trending up and daptomycin was switched to vancomycin. Patient has a PICC line placed in the previous admission. Continue vancomycin and rifampin EOT 04/16/2019. IV cefepime day 3. Continue vancomycin and rifampin as scheduled before. Continue cefepime. (4) Anemia Qualifiers: Anemia type: due to chronic kidney disease Chronic kidney disease stage: stage 3 (moderate) Qualified Code(s): N18.3 - Chronic kidney disease, stage 3 (moderate); D63.1 - Anemia in chronic kidney disease Is this a current diagnosis for this admission?: Yes Plan: Multifactorial. Likely due to CKD and anemia of chronic disease. Status post 2 PRBC transfusion on this admission. Denies any easy bleeding, nosebleeds, hematemesis, hemoptysis, vaginal bleed, hematuria, hematochezia or melena. Monitor H&H. Supportive transfusions. Keep hemoglobin more than 9 given underlying multiple cardiac history. (5) Ischemic cardiomyopathy with implantable cardioverter-defibrillator (ICD) Is this a current diagnosis for this admission?: Yes Plan: History of severely depressed ejection fraction (20% to 25%). Status post an implanted defibrillator/pacemaker with previously infected leads as per previous JOSS. Already has a PICC line for previous MRSA bacteremia currently on vancomycin and rifampin. She is extremely high risk to exchange the lead wires. Without the exchange her prognosis is quite poor as well. Continue statins, Lasix, Imdur, Beta-blockers. Cardiology consulted. Recommendations pending. (6) MRSA bacteremia Is this a current diagnosis for this admission?: Yes Plan: History of had multiple positive blood cultures in the past for MRSA with high suspicion of pacemaker/defibrillator lead infection. Should be on daptomycin and rifampin for total of 6 weeks starting on 02/11/2019 estimated date of completion 03/16/2019 as per surgical oncologist note Dr. Horvath's 03/07/2019 who had consulted infectious disease specialist. In previous admission patient was started on daptomycin and rifampin as per ID recommendation however CK was trending up and daptomycin was switched to vancomycin. Patient has a PICC line placed in the previous admission. Continue vancomycin and rifampin EOT 04/16/2019. Repeat blood cultures on this admission no growth so far. Continue vancomycin and Rifampin. Monitor troughs. Monitor kidney function. Monitor vitals.
--- NOTE | 2019-04-08 20:16 | Progress Note ---
Provider Note Provider Note: CARDIOLOGY PROGRESS NOTE by Dr. Griselda Martin on 04/08/2019. OBJECTIVE: The patient states her shortness of breath is slightly improved. Note her old oxygen delivery was decreased to 3 L/min and her sats dropped to 89. Subsequently the sats prior up in the 90s after the patient's O2 was increased to 4 L/min. She denies any chest pain or discomfort. There is some orthopnea but no PND. There is cough productive of yellowish-brown sputum. There is no recurrence of atrial fibrillation or flutter or ventricular arrhythmia. There is no firing of AICD. There is no leg edema. PHYSICAL EXAMINATION: The patient is morbidly obese. In no acute distress. Selected Entries 04/08/19 04/08/19 04/08/19 11:08 15:07 15:44 Temperature 98.5 F 98.7 F Temperature Oral Oral Source Pulse Rate 66 62 Respiratory 16 16 Rate Blood Pressure 118/75 112/68 Blood Pressure 89 82 Mean BP Location Right Arm Right Arm BP Position Supine Supine O2 Sat by Pulse 92 89 L 93 Oximetry Oxygen Flow 4.00 3.00 4.00 Rate Oxygen Delivery Nasal Cannula Nasal Cannula Method HEAD: Is atraumatic normocephalic. EYES: Pupils are equal round regular reactive to light. HEENT is negative. SKIN: There is no skin rashes or skin lesions. There is no particular ecchymosis. NECK: Is supple. There is mild JVD present. Carotids are equal there is no bruits. There is no lymphadenopathy. There is no goiter. There is no accessory muscle respiration use. Trachea central. LUNGS: At present the lungs are fairly clear to auscultation, without any rhonchi or wheezing. There is dry crackles in the right lower lobe and right middle lobe. There is egophony in the right middle lobe. There is diminished air entry. On percussion there is hyperresonance. On palpation there is no chest wall tenderness. HEART: S1-S2 is heard. There is no S3 gallop. There is no S4 gallop. There is systolic murmur mitral regurgitation tricuspid regurgitation present. There is no aortic stenosis murmur. There is no aortic insufficiency murmur. There is no rub. ABDOMEN: Is obese. Nontender. There is no hepatosplenomegaly. Bowel sounds are well heard. There is no rebound guarding or rigidity. EXTREMITIES: Femorals are deep. Femorals are diminished. There is no femoral bruits. There is decreased leg pulses. There is mild pedal edema. 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 PSYCHIATRIC: The patient judgment insight are intact. She does not appear to be agitated or anxious. Labs- All tests 24 hr 04/07/19 04/08/19 04/08/19 21:59 05:20 05:20 WBC 5.3 RBC 2.91 L Hgb 9.0 L Hct 26.7 L MCV 92 MCH 31.0 MCHC 33.8 RDW 19.1 H Plt Count 227 Lymph % (Auto) 12.5 L Candler % (Auto) 8.2 Eos % (Auto) 2.5 Baso % (Auto) 0.7 Absolute Neuts (auto) 4.1 Absolute Lymphs (auto) 0.7 Absolute Monos (auto) 0.4 Absolute Eos (auto) 0.1 Absolute Basos (auto) 0.0 Seg Neutrophils % 76.1 Sodium 142.7 Potassium 4.1 Chloride 106 Carbon Dioxide 32 H Anion Gap 5 BUN 19 Creatinine 1.79 H Est GFR ( Amer) 37 L Est GFR (MDRD) Non-Af 30 L Glucose 88 Calcium 8.4 Magnesium 2.1 Total Bilirubin 1.5 H Direct Bilirubin 0.6 H Neonat Total Bilirubin Not Reportable Neonat Direct Bilirubin Not Reportable Neonat Indirect Bili Not Reportable AST 91 H ALT 223 Alkaline Phosphatase 133 H Total Protein 5.9 L Albumin 2.9 L Time Trough Drawn 2159 Vancomycin Trough 14.8 Chest X-Ray 04/04/19 16:38 IMPRESSION: INTERVAL WORSENING OF BILATERAL AIRSPACE DISEASE, PARTICULARLY IN THE RIGHT LUNG. Chest X-Ray 04/08/19 06:00 IMPRESSION: CHF. No significant change. IMPRESSION/RECOMMENDATION: 1. Acute on chronic respiratory failure. This is 2. Elevated troponin I most likely secondary to supply demand mismatch. No evidence of non-ST elevation [place]. Hence we will treat the underlying cause and not treat this as a non-ST elevation [place]. 3. Acute on chronic systolic heart failure. Patient with LV ejection fraction of 25%. Continue beta-blockers and Entresto. Continue diuretics. 4. Acute exacerbation COPD: Continue bronchodilators 5. MRSA pneumonia: Continue antibiotics. There is egophony suggestive of consolidation in the right middle lobe. We will recheck the patient's chest x- ray in the a.m. 6. History of amiodarone toxicity. Would recommend avoiding amiodarone 7. Acute on chronic kidney disease: Watch renal function as we implement aggressive diuresis. At present patient has chronic kidney disease stage III with a GFR of 43 mL per per minute. 8. Cardiomyopathy with severely reduced LV ejection fraction. Her medications adjusted. Her beta-rip has been decreased to Toprol 25 mg XL once daily since she is taking by mouth. Entresto has been decreased to 49/51.. Will decrease the patient's isosorbide mononitrate from 60 mg to 30 mg p.o. daily. 9. Paroxysmal atrial fibrillation: Continue beta-rip. The patient Eliquis had to be stopped due to patient's anemia and also prior occult positive bloo blood in the stools. The patient later will be restarted on Eliquis. 10. History of ventricular tachycardia, The patient has an AICD placed. If there is recurrence of ventricular tachycardia or major ventricular ectopic activity then would start the patient on small dose of sotalol. Would avoid amiodarone. 11. Hypertension: Blood pressure well controlled, on current medications. 12. Coronary artery disease: History of [place] and history of coronary bypass graft surgery. No evidence of acute coronary syndrome/non-ST ST elevation [place] this admission. 13. Obstructive sleep apnea. Note patient has been noncompliant with CPAP. Most likely has significant pulmonary hypertension. 14. AICD placement: Note the patient's basal rate is around 60 bpm. If the patient's heart failure continues then would recommend increasing the basal heart rate to 80 bpm to help combat the heart failure along with diuretics. 15. MRSA bacteremia: Continue antibiotics. Repeat blood cultures are far negative for growth of MRSA. Discussed with the hospitalist. The patient had rhabdomyolysis with rifamycin. Hence patient was switched to vancomycin. Medications reviewed. Medical regimen and management plan discussed with attending physician. The patient is on multiple medications and has multiple comorbidities. Hence medical decision making is of high complexity. 40 minutes spent on this patient with more than 50% time spent in direct patient care. Will follow
[2019-04-08] MEDS: ATORVASTATIN CALCIUM 80 MG TABLET PO SCH (22:29)
[2019-04-08] MEDS: SENNOSIDES/DOCUSATE 8.6-50 MG 1 EACH TABLET PO SCH (22:29)
[2019-04-08] MEDS: VANCOMYCIN HCL 1,000 MG in DEXTROSE 5%-WATER 250 ML IV SCH (23:00)
[2019-04-09] MEDS: NORMAL SALINE 10 ML SDV (AFTER EACH USE) IV PRN (00:36)
[2019-04-09] MEDS: LEVALBUTEROL HCL NEB 1.25 MG/3 ML AMPUL NEB SCH ×4 (02:12→20:56)
[2019-04-09] MEDS: IPRATROPIUM BROMIDE 0.02% NEB 0.5 MG/2.5 ML AMPUL NEB SCH ×4 (02:12→20:56)
[2019-04-09] MEDS: ASPIRIN 81 MG TABLET, ENT COATED PO SCH (09:57)
[2019-04-09] MEDS: FAMOTIDINE 20 MG TABLET PO SCH (09:58)
[2019-04-09] MEDS: PAROXETINE HCL 20 MG TABLET PO SCH (09:58)
[2019-04-09] MEDS: METOPROLOL SUCCINATE 25 MG TAB.SR.24H PO SCH ×2 (09:58→21:17)
[2019-04-09] MEDS: APIXABAN 2.5 MG TABLET PO SCH ×2 (09:58→17:41)
[2019-04-09] MEDS: FLUTICASONE NASAL SPRAY 50 MCG/SPRY 120 SPRAY/16 GM NASL SCH ×2 (09:58→21:16)
[2019-04-09] MEDS: BUSPIRONE HCL 10 MG TABLET PO SCH ×2 (09:58→17:41)
[2019-04-09] MEDS: ISOSORBIDE MONONITRATE 30 MG TAB.ER.24H PO SCH (09:58)
[2019-04-09] MEDS: CEFEPIME 1 GM/D5W RTU 1 GM/50 ML RTUPB IV SCH (09:58)
[2019-04-09] MEDS: NORMAL SALINE 10 ML SDV (SCHEDULED) IV SCH ×2 (09:59→21:17)
[2019-04-09] MEDS: FUROSEMIDE INJ/PF 20 MG/2 ML SDV IV SCH ×2 (09:59→21:16)
[2019-04-09] MEDS: OXYCODONE-ACETAMINOPHEN 5-325 MG TABLET PO PRN ×3 (10:13→19:38)
[2019-04-09 10:31] LABS: HEMATOCRIT 30.2 % (36.0-47.0); HEMOGLOBIN 9.9 g/dL (12.0-15.5); MEAN CORPUSCULAR HEMOGLOBIN 30.4 pg (27.0-33.4); MEAN CORPUSCULAR VOLUME 92 fl (80-97); PLATELET COUNT 274 10^3/uL (150-450); RED BLOOD COUNT 3.27 10^6/uL (3.72-5.28); RED CELL DISTRIBUTION WIDTH 18.9 % (11.5-14.0); WHITE BLOOD COUNT 5.5 10^3/uL (4.0-10.5)
[2019-04-09 10:54] LABS: ANION GAP 9 (5-19); BLOOD UREA NITROGEN 14 mg/dL (7-20); CALCIUM 8.9 mg/dL (8.4-10.2); CARBON DIOXIDE 29 mmol/L (22-30); CHLORIDE 105 mmol/L (98-107); GLUCOSE 159 mg/dL (75-110); PHOSPHORUS 3.6 mg/dL (2.5-4.5); POTASSIUM 3.8 mmol/L (3.6-5.0)
[2019-04-09] MEDS: RIFAMPIN 600 MG in NORMAL SALINE 500 ML IV SCH (12:01)
--- NOTE | 2019-04-09 13:24 | EKG REPORT ---
SEVERITY:- ABNORMAL ECG - ATRIAL-SENSED VENTRICULAR-PACED RHYTHM : Confirmed by: Kirk Weeks MD 09-Apr-2019 13:24:10
--- NOTE | 2019-04-09 15:02 | PDOC PROGRESS REPORT ---
Subjective Progress Note for:: 04/09/19 Subjective:: Patient complains of chest tightness today. Was eating at the time. Denies any fever or chills. Denies any shortness of breath at the time. Still having some leg swelling. States that she uses CPAP at home. Had to be placed on BiPAP earlier because of some shortness of breath. Reason For Visit: PNEUMONIA CHF EXACERBATION Physical Exam Vital Signs: Temp Pulse Resp BP Pulse Ox 98.8 F 62 16 137/79 H 94 04/09/19 11:00 04/09/19 14:00 04/09/19 14:00 04/09/19 11:00 04/09/19 14:00 Intake & Output 04/08/19 04/09/19 04/10/19 06:59 06:59 06:59 Intake Total 1580 1550 1030 Output Total 2900 2000 Balance -1320 -450 1030 Weight 110.5 kg 106.8 kg General appearance: PRESENT: no acute distress, cooperative Respiratory exam: PRESENT: rhonchi, symmetrical, tachypnea, unlabored. ABSENT: wheezes Cardiovascular exam: PRESENT: RRR, +S1, +S2. ABSENT: tachycardia GI/Abdominal exam: PRESENT: soft. ABSENT: rebound, rigid, tenderness Neurological exam: PRESENT: alert, awake, oriented to person, oriented to place, oriented to time Results Laboratory Results: 04/09/19 09:50 04/09/19 09:50 04/09/19 04/09/19 09:50 09:50 WBC 5.5 RBC 3.27 L Hgb 9.9 L Hct 30.2 L MCV 92 MCH 30.4 MCHC 33.0 RDW 18.9 H Plt Count 274 Sodium 143.0 Potassium 3.8 Chloride 105 Carbon Dioxide 29 Anion Gap 9 BUN 14 Creatinine 1.57 H Est GFR ( Amer) 43 L Glucose 159 H Calcium 8.9 Phosphorus 3.6 Magnesium 2.0 04/04/19 04/04/19 04/04/19 17:15 17:15 20:26 Creatine Kinase 30 CK-MB (CK-2) 0.91 Troponin I 0.154 0.216 NT-Pro-B Natriuret Pep [id number] H 04/05/19 07:33 Creatine Kinase CK-MB (CK-2) Troponin I 0.117 NT-Pro-B Natriuret Pep Impressions: Chest X-Ray 04/08/19 06:00 IMPRESSION: CHF. No significant change. Assessment and Plan - Diagnosis (1) Acute on chronic respiratory failure with hypoxia Is this a current diagnosis for this admission?: Yes Plan: Informed by patient's daughters that she is sometimes requiring BiPAP during the daytime. Otherwise no nasal cannula. Etiology is a multi-factorial including COPD, ischemic cardiomyopathy as well as pneumonia Continue nasal cannula and PRN and nocturnal BiPAP. Uses nocturnal CPAP at home. (2) Acute renal failure superimposed on chronic kidney disease Qualifiers: Acute renal failure type: unspecified Chronic kidney disease stage: stage 3 (moderate) Qualified Code(s): N17.9 - Acute kidney failure, unspecified; N18.3 - Chronic kidney disease, stage 3 (moderate) Is this a current diagnosis for this admission?: Yes Plan: Currently back within baseline. Baseline creatinine seems to be between 1.6-2 Continue to monitor BMP. Avoid nephrotoxic medications. (3) CAP (community acquired pneumonia) due to MRSA (methicillin resistant Staphylococcus aureus) Is this a current diagnosis for this admission?: Yes Plan: Reviewed prior records. Patient was discharged last on vancomycin up until 04/16/2019 for MRSA pneumonia and bacteremia. Documentation shows this was the recommendation of infectious disease. Continue vancomycin. Discontinued rifampin and cefepime (s/p 3 days). [address] on Zosyn for broader coverage. Continue oxygen supplementation as needed. (4) Anemia Qualifiers: Anemia type: due to chronic kidney disease Chronic kidney disease stage: stage 3 (moderate) Qualified Code(s): N18.3 - Chronic kidney disease, stage 3 (moderate); D63.1 - Anemia in chronic kidney disease Is this a current diagnosis for this admission?: Yes Plan: Multifactorial. Likely due to CKD and anemia of chronic disease. Status post 2 PRBC transfusion on this admission. Monitor H&H. Currently stable. (5) Ischemic cardiomyopathy with implantable cardioverter-defibrillator (ICD) Is this a current diagnosis for this admission?: Yes Plan: History of severely depressed ejection fraction (20% to 25%). Status post an implanted defibrillator/pacemaker with previously infected leads as per previous JOSS. Already has a PICC line for previous MRSA bacteremia currently on vancomycin. Continue statins, Lasix, Imdur, Beta-blockers. Doses adjusted by Dr. Melyssa (6) MRSA bacteremia Is this a current diagnosis for this admission?: Yes Plan: Continue vancomycin until 04/16/2019. Monitor vancomycin troughs. Repeat blood cultures negative so far. (7) Paroxysmal atrial fibrillation Is this a current diagnosis for this admission?: Yes Plan: Continue Toprol-XL and Eliquis. - Time Time Spent with patient: 15-24 minutes
--- NOTE | 2019-04-09 18:57 | Progress Note ---
Provider Note Provider Note: CARDIOLOGY PROGRESS NOTE by Dr. Griselda Martin on 04/09/2019. SUBJECTIVE: Patient states she is less short of breath, but states generalized she has decreased appetite and feels a little nauseous. She still is coughing up some brownish sputum. There is no chest pain discomfort. There is no recurrence of atrial fibrillation or ventricular arrhythmias. There is no firing of the AICD. The patient does have orthopnea but no PND. There is no TIA CVA symptoms. There is no bleeding on Eliquis. PHYSICAL EXAMINATION: The patient is morbidly obese in no acute distress Selected Entries 04/09/19 15:16 Temperature 99.0 F Temperature Oral Source Pulse Rate 69 Blood Pressure 123/65 Blood Pressure 84 Mean BP Location Right Arm BP Position Supine O2 Sat by Pulse 91 L Oximetry Oxygen Flow 3.00 Rate Oxygen Delivery Nasal Cannula Method HEAD: Is atraumatic normocephalic. EYES: Pupils are equal round regular reactive to light. HEENT is negative. SKIN: There is no skin rashes or skin lesions. There is no particular ecchymosis. NECK: Is supple. There is mild JVD present. Carotids are equal there is no bruits. There is no lymphadenopathy. There is no goiter. There is no accessory muscle respiration use. Trachea central. LUNGS: At present the lungs are fairly clear to auscultation, without any rhonchi or wheezing. There is dry crackles in the right lower lobe and right middle lobe. There is egophony in the right middle lobe. There is diminished air entry. On percussion there is hyperresonance. On palpation there is no chest wall tenderness. HEART: S1-S2 is heard. There is no S3 gallop. There is no S4 gallop. There is systolic murmur mitral regurgitation tricuspid regurgitation present. There is no aortic stenosis murmur. There is no aortic insufficiency murmur. There is no rub. ABDOMEN: Is obese. Nontender. There is no hepatosplenomegaly. Bowel sounds are well heard. There is no rebound guarding or rigidity. EXTREMITIES: Femorals are deep. Femorals are diminished. There is no femoral bruits. There is decreased leg pulses. There is mild pedal edema. 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 PSYCHIATRIC: The patient judgment insight are intact. She does not appear to be agitated or anxious. Labs- All tests 24 hr 04/09/19 04/09/19 04/09/19 09:50 09:50 21:30 WBC 5.5 RBC 3.27 L Hgb 9.9 L Hct 30.2 L MCV 92 MCH 30.4 MCHC 33.0 RDW 18.9 H Plt Count 274 Sodium 143.0 Potassium 3.8 Chloride 105 Carbon Dioxide 29 Anion Gap 9 BUN 14 Creatinine 1.57 H Est GFR ( Amer) 43 L Est GFR (MDRD) Non-Af 35 L Glucose 159 H Calcium 8.9 Phosphorus 3.6 Magnesium 2.0 Time Trough Drawn 2130 Vancomycin Trough 13.1 Chest X-Ray 04/04/19 16:38 IMPRESSION: INTERVAL WORSENING OF BILATERAL AIRSPACE DISEASE, PARTICULARLY IN THE RIGHT LUNG. Chest X-Ray 04/08/19 06:00 IMPRESSION: CHF. No significant change. IMPRESSION/RECOMMENDATION: 1. Acute on chronic respiratory failure. This is multifactorial secondary to the patient's acute on chronic systolic heart failure, sleep apnea and acute exacerbation of COPD and pneumonia. 2. Elevated troponin I most likely secondary to supply demand mismatch. No evidence of non-ST elevation MT. Hence we will treat the underlying cause and not treat this as a non-ST elevation MT. 3. Acute on chronic systolic heart failure. Patient with LV ejection fraction of 25%. Continue beta-blockers and Entresto. Continue diuretics. 4. Acute exacerbation COPD: Continue bronchodilators. Improving. 5. MRSA pneumonia: Continue antibiotics. There is egophony suggestive of consolidation in the right middle lobe. We will recheck the patient's chest x- ray in the a.m. 6. History of amiodarone toxicity. Would recommend avoiding amiodarone 7. Acute on chronic kidney disease: Watch renal function as we implement ag gressive diuresis. At present patient has chronic kidney disease stage III with a GFR of 43 mL per per minute. 8. Cardiomyopathy with severely reduced LV ejection fraction. Her medications adjusted. Her beta-rip has been decreased to Toprol 25 mg XL once daily since she is taking by mouth. Entresto has been decreased to 49/51.. Will decrease the patient's isosorbide mononitrate from 60 mg to 30 mg p.o. daily. 9. Paroxysmal atrial fibrillation: Continue beta-rip. The patient Eliquis had to be stopped due to patient's anemia and also prior occult positive bloo blood in the stools. The patient later will be restarted on Eliquis. 10. History of ventricular tachycardia, The patient has an AICD placed. If there is recurrence of ventricular tachycardia or major ventricular ectopic activity then would start the patient on small dose of sotalol. Would avoid amiodarone. 11. Hypertension: Blood pressure well controlled, on current medications. 12. Coronary artery disease: History of MT and history of coronary bypass graft surgery. No evidence of acute coronary syndrome/non-ST ST elevation MT this admission. 13. Obstructive sleep apnea. Note patient has been noncompliant with CPAP. Most likely has significant pulmonary hypertension. 14. AICD placement: Note the patient's basal rate is around 60 bpm. If the patient's heart failure continues then would recommend increasing the basal heart rate to 80 bpm to help combat the heart failure along with diuretics. 15. MRSA bacteremia: Continue antibiotics. Repeat blood cultures are far negative for growth of MRSA. Discussed with the hospitalist. The patient had rhabdomyolysis with rifamycin. Hence patient was switched to vancomycin. Medications reviewed. Medical regimen and management plan discussed with attending physician. The patient is on multiple medications and has multiple comorbidities. Hence medical decision making is of high complexity. 40 minutes spent on this patient with more than 50% time spent in direct patient care. Will follow.
[2019-04-09] MEDS: SENNOSIDES/DOCUSATE 8.6-50 MG 1 EACH TABLET PO SCH (21:16)
[2019-04-09] MEDS: ATORVASTATIN CALCIUM 80 MG TABLET PO SCH (21:17)
[2019-04-09] MEDS: PIPERACILLIN SODIUM/TAZOBACTAM 3.375 GM in NORMAL SALINE 100 ML IV SCH (21:28)
[2019-04-09] MEDS ORDERED: PIPERACILLIN/TAZOBACTAM 3.375 GM VIAL IV SCH (22:00)
[2019-04-09 22:07] LABS: VANCOMYCIN,TROUGH 13.1 ug/mL (5.0-20.0)
[2019-04-09] MEDS: VANCOMYCIN HCL 1,000 MG in DEXTROSE 5%-WATER 250 ML IV SCH (22:23)
[2019-04-10] MEDS: LEVALBUTEROL HCL NEB 1.25 MG/3 ML AMPUL NEB SCH ×4 (02:27→20:15)
[2019-04-10] MEDS: IPRATROPIUM BROMIDE 0.02% NEB 0.5 MG/2.5 ML AMPUL NEB SCH ×4 (02:27→20:15)
[2019-04-10] MEDS: PIPERACILLIN SODIUM/TAZOBACTAM 3.375 GM in NORMAL SALINE 100 ML IV SCH ×3 (05:19→21:17)
[2019-04-10] MEDS: FUROSEMIDE INJ/PF 20 MG/2 ML SDV IV SCH ×2 (09:22→17:14)
[2019-04-10] MEDS: NORMAL SALINE 10 ML SDV (SCHEDULED) IV SCH ×2 (09:23→21:14)
[2019-04-10] MEDS: PAROXETINE HCL 20 MG TABLET PO SCH (09:23)
[2019-04-10] MEDS: OXYCODONE-ACETAMINOPHEN 5-325 MG TABLET PO PRN ×3 (09:23→19:56)
[2019-04-10] MEDS: ISOSORBIDE MONONITRATE 30 MG TAB.ER.24H PO SCH (09:24)
[2019-04-10] MEDS: BUSPIRONE HCL 10 MG TABLET PO SCH ×2 (09:24→17:14)
[2019-04-10] MEDS: ASPIRIN 81 MG TABLET, ENT COATED PO SCH (09:24)
[2019-04-10] MEDS: METOPROLOL SUCCINATE 25 MG TAB.SR.24H PO SCH ×2 (09:24→21:13)
[2019-04-10] MEDS: FAMOTIDINE 20 MG TABLET PO SCH (09:24)
[2019-04-10] MEDS: APIXABAN 2.5 MG TABLET PO SCH ×2 (09:24→17:14)
[2019-04-10] MEDS: FLUTICASONE NASAL SPRAY 50 MCG/SPRY 120 SPRAY/16 GM NASL SCH ×2 (09:25→21:14)
[2019-04-10] MEDS ORDERED: ACETAMINOPHEN 325 MG TABLET PO PRN (09:33)
[2019-04-10] MEDS ORDERED: RIFAMPIN INJ 600 MG VIAL IV SCH (10:00)
[2019-04-10] MEDS: RIFAMPIN 600 MG in NORMAL SALINE 500 ML IV SCH (10:10)
[2019-04-10] MEDS ORDERED: MAG HYDROX/AL HYDROX/SIMETH SUSP 30 ML UDCUP PO PRN (11:00)
[2019-04-10] MEDS ORDERED: SIMETHICONE 80 MG TAB.CHEW PO PRN (14:57)
--- NOTE | 2019-04-10 15:06 | PDOC PROGRESS REPORT ---
Subjective Progress Note for:: 04/10/19 Subjective:: Patient still having some shortness of breath but states the chest tightness is improved at this time. Did have some gas abdomen felt like she needed to burp. Tolerated off the BiPAP for most of yesterday. Reason For Visit: PNEUMONIA CHF EXACERBATION Physical Exam Vital Signs: Temp Pulse Resp BP Pulse Ox 98.0 F 67 16 147/91 H 92 04/10/19 11:10 04/10/19 13:27 04/10/19 13:27 04/10/19 11:10 04/10/19 13:27 Intake & Output 04/09/19 04/10/19 04/11/19 06:59 06:59 06:59 Intake Total 1550 2540 600 Output Total 2000 1550 Balance -450 990 600 Weight 106.8 kg 105.5 kg General appearance: PRESENT: no acute distress, cooperative Neck exam: ABSENT: JVD Respiratory exam: PRESENT: crackles, rhonchi, unlabored. ABSENT: tachypnea, wheezes Cardiovascular exam: PRESENT: RRR, +S1, +S2. ABSENT: tachycardia GI/Abdominal exam: PRESENT: soft. ABSENT: rebound, rigid, tenderness Extremities exam: PRESENT: +1 edema - Right more than left Neurological exam: PRESENT: alert, awake Results Laboratory Results: 04/09/19 09:50 04/09/19 09:50 04/04/19 21:29 Blood Blood Culture - Final NO GROWTH IN 5 DAYS 04/04/19 19:46 Blood Blood Culture - Final NO GROWTH IN 5 DAYS 04/04/19 04/04/19 04/04/19 17:15 17:15 20:26 Creatine Kinase 30 CK-MB (CK-2) 0.91 Troponin I 0.154 0.216 NT-Pro-B Natriuret Pep [id number] H 04/05/19 07:33 Creatine Kinase CK-MB (CK-2) Troponin I 0.117 NT-Pro-B Natriuret Pep Impressions: Chest X-Ray 04/08/19 06:00 IMPRESSION: CHF. No significant change. Assessment and Plan - Diagnosis (1) Acute on chronic respiratory failure with hypoxia Is this a current diagnosis for this admission?: Yes Plan: Patient tolerating off BiPAP today on nasal cannula. We will wean oxygen down to 2 L NC if tolerated. Of note, patient uses 2 to 3 L nasal cannula at home. Etiology is a multi-factorial including COPD, ischemic cardiomyopathy as well as pneumonia Continue nasal cannula and PRN and nocturnal BiPAP. Uses nocturnal CPAP at home. (2) Acute renal failure superimposed on chronic kidney disease Qualifiers: Acute renal failure type: unspecified Chronic kidney disease stage: stage 3 (moderate) Qualified Code(s): N17.9 - Acute kidney failure, unspecified; N18.3 - Chronic kidney disease, stage 3 (moderate) Is this a current diagnosis for this admission?: Yes Plan: Currently back within baseline. Baseline creatinine seems to be between 1.6-2 Continue to monitor BMP. Avoid nephrotoxic medications. (3) CAP (community acquired pneumonia) due to MRSA (methicillin resistant Staphylococcus aureus) Is this a current diagnosis for this admission?: Yes Plan: Reviewed prior records. Patient was discharged last on vancomycin up until for MRSA pneumonia and bacteremia. Documentation shows this was the recommendation of infectious disease. Continue vancomycin, rifampin and day 2 of Zosyn Status post 3 days of cefepime (4) Anemia Qualifiers: Anemia type: due to chronic kidney disease Chronic kidney disease stage: stage 3 (moderate) Qualified Code(s): N18.3 - Chronic kidney disease, stage 3 (moderate); D63.1 - Anemia in chronic kidney disease Is this a current diagnosis for this admission?: Yes Plan: Multifactorial. Likely due to CKD and anemia of chronic disease. Status post 2 PRBC transfusion on this admission. Monitor H&H. Currently stable. (5) Ischemic cardiomyopathy with implantable cardioverter-defibrillator (ICD) Is this a current diagnosis for this admission?: Yes Plan: History of severely depressed ejection fraction (20% to 25%). Status post an implanted defibrillator/pacemaker with previously infected leads as per previous JOSS. Already has a PICC line for previous MRSA bacteremia currently on vancomycin. Continue statins, Lasix, Imdur, Beta-blockers. Doses adjusted by Dr. Melyssa Flanneryix increased to 40 mg twice daily IV today (6) MRSA bacteremia Is this a current diagnosis for this admission?: Yes Plan: Continue vancomycin and rifampin until 04/16/2019. Monitor vancomycin troughs. Repeat blood cultures negative. (7) Paroxysmal atrial fibrillation Is this a current diagnosis for this admission?: Yes Plan: Continue Toprol-XL and Eliquis. - Time Time Spent with patient: 15-24 minutes
[2019-04-10] MEDS: VANCOMYCIN HCL 1,250 MG in DEXTROSE 5%-WATER 250 ML IV SCH (17:14)
[2019-04-10] MEDS: ALPRAZOLAM 0.5 MG TABLET PO PRN (19:57)
[2019-04-10] MEDS: ATORVASTATIN CALCIUM 80 MG TABLET PO SCH (21:13)
[2019-04-10] MEDS: SENNOSIDES/DOCUSATE 8.6-50 MG 1 EACH TABLET PO SCH (21:13)
[2019-04-11] MEDS: LEVALBUTEROL HCL NEB 1.25 MG/3 ML AMPUL NEB SCH ×4 (01:22→21:04)
[2019-04-11] MEDS: IPRATROPIUM BROMIDE 0.02% NEB 0.5 MG/2.5 ML AMPUL NEB SCH ×4 (01:22→21:04)
[2019-04-11] MEDS: PIPERACILLIN SODIUM/TAZOBACTAM 3.375 GM in NORMAL SALINE 100 ML IV SCH (05:12)
[2019-04-11 07:09] LABS: ANION GAP 5 (5-19); BLOOD UREA NITROGEN 12 mg/dL (7-20); CALCIUM 8.8 mg/dL (8.4-10.2); CARBON DIOXIDE 35 mmol/L (22-30); CHLORIDE 101 mmol/L (98-107); GLUCOSE 81 mg/dL (75-110); POTASSIUM 3.4 mmol/L (3.6-5.0)
[2019-04-11] MEDS: LEVOFLOXACIN 750 MG TABLET PO SCH (09:29)
[2019-04-11] MEDS: ISOSORBIDE MONONITRATE 30 MG TAB.ER.24H PO SCH (09:29)
[2019-04-11] MEDS: FAMOTIDINE 20 MG TABLET PO SCH (09:29)
[2019-04-11] MEDS: APIXABAN 2.5 MG TABLET PO SCH ×2 (09:30→17:15)
[2019-04-11] MEDS: PAROXETINE HCL 20 MG TABLET PO SCH (09:30)
[2019-04-11] MEDS: ASPIRIN 81 MG TABLET, ENT COATED PO SCH (09:30)
[2019-04-11] MEDS: METOPROLOL SUCCINATE 25 MG TAB.SR.24H PO SCH ×2 (09:30→21:50)
[2019-04-11] MEDS: BUSPIRONE HCL 10 MG TABLET PO SCH ×2 (09:30→17:15)
[2019-04-11] MEDS: FUROSEMIDE INJ/PF 20 MG/2 ML SDV IV SCH (09:30)
[2019-04-11] MEDS: OXYCODONE-ACETAMINOPHEN 5-325 MG TABLET PO PRN ×4 (09:35→21:50)
[2019-04-11] MEDS: FLUTICASONE NASAL SPRAY 50 MCG/SPRY 120 SPRAY/16 GM NASL SCH ×2 (09:38→21:58)
[2019-04-11] MEDS: RIFAMPIN 600 MG in NORMAL SALINE 500 ML IV SCH (09:57)
[2019-04-11] MEDS ORDERED: POTASSIUM CHLORIDE 10 MEQ TABLET.ER PO SCH (10:00)
[2019-04-11 10:08] LABS: VENOUS BLOOD HCO3 34.7 mmol/L (20-32); VENOUS BLOOD PCO2 59.1 mmHg (35-63); VENOUS BLOOD PH 7.39 (7.30-7.42)
[2019-04-11] MEDS: NORMAL SALINE 10 ML SDV (SCHEDULED) IV SCH ×2 (11:56→21:53)
--- NOTE | 2019-04-11 14:05 | PDOC PROGRESS REPORT ---
Subjective Progress Note for:: 04/11/19 Subjective:: Patient says her breathing is better. Patient is prepared to walk around today. States that she does not feel that she needs physical therapy. Denies any chest pain at this time. Reason For Visit: PNEUMONIA CHF EXACERBATION Physical Exam Vital Signs: Temp Pulse Resp BP Pulse Ox 98.5 F 60 18 134/83 H 94 04/11/19 10:55 04/11/19 10:55 04/11/19 10:55 04/11/19 10:55 04/11/19 10:55 Intake & Output 04/10/19 04/11/19 04/12/19 06:59 06:59 06:59 Intake Total 2540 2130 Output Total 1550 900 Balance 990 1230 Weight 105.5 kg 104.3 kg General appearance: PRESENT: no acute distress, cooperative Neck exam: ABSENT: JVD Respiratory exam: PRESENT: clear to auscultation renu, rhonchi, symmetrical, unlabored. ABSENT: tachypnea, wheezes Cardiovascular exam: PRESENT: RRR, +S1, +S2. ABSENT: tachycardia GI/Abdominal exam: PRESENT: normal bowel sounds, soft. ABSENT: rebound, rigid, tenderness Neurological exam: PRESENT: alert, awake, oriented to person, oriented to place Psychiatric exam: ABSENT: agitated Results Laboratory Results: 04/09/19 09:50 04/11/19 05:16 04/11/19 04/11/19 04/11/19 05:16 08:07 09:55 VBG pH Cancelled 7.39 VBG pCO2 Cancelled 59.1 VBG HCO3 Cancelled 34.7 H VBG Base Excess Cancelled 8.0 Sodium 141.4 Potassium 3.4 L Chloride 101 Carbon Dioxide 35 H Anion Gap 5 BUN 12 Creatinine 1.88 H Est GFR ( Amer) 35 L Glucose 81 Calcium 8.8 Magnesium 1.8 04/04/19 04/04/19 04/04/19 17:15 17:15 20:26 Creatine Kinase 30 CK-MB (CK-2) 0.91 Troponin I 0.154 0.216 NT-Pro-B Natriuret Pep [id number] H 04/05/19 07:33 Creatine Kinase CK-MB (CK-2) Troponin I 0.117 NT-Pro-B Natriuret Pep Impressions: Chest X-Ray 04/08/19 06:00 IMPRESSION: CHF. No significant change. Assessment and Plan - Diagnosis (1) Acute on chronic respiratory failure with hypoxia Is this a current diagnosis for this admission?: Yes Plan: Back to baseline respiratory status on 2 L nasal cannula. Of note, patient uses 2 to 3 L nasal cannula at home. Etiology is a multi-factorial including COPD, ischemic cardiomyopathy as well as pneumonia Continue nasal cannula and PRN and nocturnal NIPPV. Check ambulatory pulse ox on 2 L nasal cannula. (2) Acute renal failure superimposed on chronic kidney disease Qualifiers: Acute renal failure type: unspecified Chronic kidney disease stage: stage 3 (moderate) Qualified Code(s): N17.9 - Acute kidney failure, unspecified; N18.3 - Chronic kidney disease, stage 3 (moderate) Is this a current diagnosis for this admission?: Yes Plan: Baseline creatinine seems to be between 1.6-2 Creatinine still within baseline but seems to have had a mild bump between yesterday and today. Continue to monitor BMP. Diuretics changed from IV to p.o. Lasix. Avoid nephrotoxic medications. (3) CAP (community acquired pneumonia) due to MRSA (methicillin resistant Staphylococcus aureus) Is this a current diagnosis for this admission?: Yes Plan: Reviewed prior records. Patient was discharged last on vancomycin up until 04/16/2019 for MRSA pneumonia and bacteremia. Documentation shows this was the recommendation of infectious disease. Continue vancomycin, rifampin and placed on Levaquin for 3 more days Status post 3 days of cefepime (4) Anemia Qualifiers: Anemia type: due to chronic kidney disease Chronic kidney disease stage: stage 3 (moderate) Qualified Code(s): N18.3 - Chronic kidney disease, stage 3 (moderate); D63.1 - Anemia in chronic kidney disease Is this a current diagnosis for this admission?: Yes Plan: Multifactorial. Likely due to CKD and anemia of chronic disease. Status post 2 PRBC transfusion on this admission. Currently stable. (5) Ischemic cardiomyopathy with implantable cardioverter-defibrillator (ICD) Is this a current diagnosis for this admission?: Yes Plan: History of severely depressed ejection fraction (20% to 25%). Status post an implanted defibrillator/pacemaker with previously infected leads as per previous JOSS. Already has a PICC line for previous MRSA bacteremia currently on vancomycin. Continue statins, Lasix, Imdur, Beta-blockers. Doses adjusted by Dr. Melyssa Rosales changed from IV to p.o. 40 mg twice daily (6) MRSA bacteremia Is this a current diagnosis for this admission?: Yes Plan: Continue vancomycin and rifampin until 04/16/2019. Monitor vancomycin troughs. Repeat blood cultures negative. (7) Paroxysmal atrial fibrillation Is this a current diagnosis for this admission?: Yes Plan: Continue Toprol-XL and Eliquis. (8) RUBIN (obstructive sleep apnea) Is this a current diagnosis for this admission?: Yes Plan: Revealed recent sleep study done in the outpatient setting with Dr. Frederick. Discharge planning verified to try to qualify patient for nocturnal CPAP. - Time Time Spent with patient: 15-24 minutes
[2019-04-11] MEDS: ALPRAZOLAM 0.5 MG TABLET PO PRN ×2 (14:42→21:50)
[2019-04-11] MEDS: VANCOMYCIN HCL 1,250 MG in DEXTROSE 5%-WATER 250 ML IV SCH (17:15)
[2019-04-11] MEDS: FUROSEMIDE 40 MG TABLET PO SCH (17:15)
--- NOTE | 2019-04-11 19:44 | Progress Note ---
Provider Note Provider Note: CARDIOLOGY PROGRESS NOTE by Dr. Griselda Martin on 04/11/2019. OBJECTIVE: The patient states she is slightly better. She is anxious to go home. Her cough is also much less and her sputum production is also less. She denies any shortness of breath. There is no PND orthopnea. There is no recurrence of atrial fibrillation or ventricular arrhythmias. There is no firing of the AICD. There is no bleeding on Eliquis. Note her Lasix was doubled after discussions with the hospitalist. PHYSICAL EXAMINATION: The patient is morbidly obese. At present in no acute distress. Selected Entries 04/11/19 04/11/19 04/11/19 07:00 07:14 08:26 Temperature 97.2 F Temperature Oral Source Pulse Rate 60 58 L Respiratory 18 Rate Blood Pressure 119/61 Blood Pressure 80 Mean BP Location Right Arm BP Position Supine O2 Sat by Pulse 93 Oximetry Oxygen Delivery Bi-pap Method ( includes room air) Oxygen Delivery Room Air Method 04/11/19 08:28 Temperature Temperature Source Pulse Rate Respiratory Rate Blood Pressure Blood Pressure Mean BP Location BP Position O2 Sat by Pulse 99 Oximetry Oxygen Delivery Method ( includes room air) Oxygen Delivery Method HEAD: Is atraumatic normocephalic. EYES: Pupils are equal round regular reactive to light. HEENT is negative. SKIN: There is no skin rashes or skin lesions. There is no particular ecchymosis. NECK: Is supple. There is mild JVD present. Carotids are equal there is no bruits. There is no lymphadenopathy. There is no goiter. There is no accessory muscle respiration use. Trachea central. LUNGS: At present the lungs are fairly clear to auscultation, without any rhonchi or wheezing. There is dry crackles in the right lower lobe and right middle lobe. There is egophony in the right middle lobe. There is diminished air entry. On percussion there is hyperresonance. On palpation there is no chest wall tenderness. HEART: S1-S2 is heard. There is no S3 gallop. There is no S4 gallop. There is systolic murmur mitral regurgitation tricuspid regurgitation present. There is no aortic stenosis murmur. There is no aortic insufficiency murmur. There is no rub. ABDOMEN: Is obese. Nontender. There is no hepatosplenomegaly. Bowel sounds are well heard. There is no rebound guarding or rigidity. EXTREMITIES: Femorals are deep. Femorals are diminished. There is no femoral bruits. There is decreased leg pulses. There is mild pedal edema. cardiovascular sonographer the patient is conscious awake alert oriented x3 with no focal deficits. PSYCHIATRIC: The patient judgment insight are intact. She does not appear to be agitated or anxious. Labs- All tests 24 hr 04/11/19 04/11/19 04/11/19 05:16 08:07 09:55 VBG pH Cancelled 7.39 VBG pCO2 Cancelled 59.1 VBG HCO3 Cancelled 34.7 H VBG Base Excess Cancelled 8.0 Sodium 141.4 Potassium 3.4 L Chloride 101 Carbon Dioxide 35 H Anion Gap 5 BUN 12 Creatinine 1.88 H Est GFR ( Amer) 35 L Est GFR (MDRD) Non-Af 29 L Glucose 81 Calcium 8.8 Magnesium 1.8 Chest X-Ray 04/04/19 16:38 IMPRESSION: INTERVAL WORSENING OF BILATERAL AIRSPACE DISEASE, PARTICULARLY IN THE RIGHT LUNG. Chest X-Ray 04/08/19 06:00 IMPRESSION: CHF. No significant change. IMPRESSION/RECOMMENDATION: 1. Acute on chronic respiratory failure. This is multifactorial secondary to the patient's acute on chronic systolic heart failure, sleep apnea and acute exacerbation of COPD and pneumonia. 2. Elevated troponin I most likely secondary to supply demand mismatch. No evidence of non-ST elevation [place]. Hence we will treat the underlying cause and not treat this as a non-ST elevation AR. 3. Acute on chronic systolic heart failure. Patient with LV ejection fraction of 25%. Continue beta-blockers and Entresto. Continue diuretics. 4. Acute exacerbation COPD: Continue bronchodilators. Improving. 5. MRSA pneumonia: Continue antibiotics. There is egophony suggestive of consolidation in the right middle lobe. We will recheck the patient's chest x- ray in the a.m. 6. History of amiodarone toxicity. Would recommend avoiding amiodarone 7. Acute on chronic kidney disease: Watch renal function as we implement aggressive diuresis. At present patient has chronic kidney disease stage III with a GFR of 43 mL per per minute. 8. Cardiomyopathy with severely reduced LV ejection fraction. Her medications adjusted. Her beta-rip has been decreased to Toprol 25 mg XL once daily since she is taking by mouth. Entresto has been decreased to 49/51.. Will decrease the patient's isosorbide mononitrate from 60 mg to 30 mg p.o. daily. 9. Paroxysmal atrial fibrillation: Continue beta-rip. The patient Eliquis had to be stopped due to patient's anemia and also prior occult positive bloo blood in the stools. The patient later will be restarted on Eliquis. 10. History of ventricular tachycardia, The patient has an AICD placed. If there is recurrence of ventricular tachycardia or major ventricular ectopic activity then would start the patient on small dose of sotalol. Would avoid amiodarone. 11. Hypertension: Blood pressure well controlled, on current medications. 12. Coronary artery disease: History of AR and history of coronary bypass graft surgery. No evidence of acute coronary syndrome/non-ST ST elevation AR this admission. 13. Obstructive sleep apnea. Note patient has been noncompliant with CPAP. Most likely has significant pulmonary hypertension. 14. AICD placement: Note the patient's basal rate is around 60 bpm. If the patient's heart failure continues then would recommend increasing the basal heart rate to 80 bpm to help combat the heart failure along with diuretics. 15. MRSA bacteremia: Continue antibiotics. Repeat blood cultures are far negative for growth of MRSA. Discussed with the hospitalist. The patient had rhabdomyolysis with rifamycin. Hence patient was switched to vancomycin. Medications reviewed. Medical regimen and management plan discussed with attending physician. The patient is on multiple medications and has multiple c omorbidities. Hence medical decision making is of high complexity. 40 minutes spent on this patient with more than 50% time spent in direct patient care. Will follow.
[2019-04-11] MEDS: SENNOSIDES/DOCUSATE 8.6-50 MG 1 EACH TABLET PO SCH (21:50)
[2019-04-11] MEDS: ATORVASTATIN CALCIUM 80 MG TABLET PO SCH (21:50)
[2019-04-12] MEDS: LEVALBUTEROL HCL NEB 1.25 MG/3 ML AMPUL NEB SCH ×4 (02:29→20:25)
[2019-04-12] MEDS: IPRATROPIUM BROMIDE 0.02% NEB 0.5 MG/2.5 ML AMPUL NEB SCH ×4 (02:29→20:25)
[2019-04-12 06:06] LABS: ANION GAP 9 (5-19); BLOOD UREA NITROGEN 14 mg/dL (7-20); CALCIUM 8.8 mg/dL (8.4-10.2); CARBON DIOXIDE 32 mmol/L (22-30); CHLORIDE 101 mmol/L (98-107); GLUCOSE 90 mg/dL (75-110); POTASSIUM 3.4 mmol/L (3.6-5.0)
--- NOTE | 2019-04-12 08:28 | RADIOLOGY REPORT (SQ) ---
EXAM DESCRIPTION: CHEST 2 VIEWS COMPLETED DATE/TIME: 04/12/2019 7:34 am REASON FOR STUDY: PNA /CHF COMPARISON: 04/08/2019. NUMBER OF VIEWS: Two views. TECHNIQUE: Frontal and lateral radiographic views of the chest acquired. LIMITATIONS: None. FINDINGS: LUNGS AND PLEURA: No opacities, masses or pneumothorax. No pleural effusion. MEDIASTINUM AND HILAR STRUCTURES: No masses or contour abnormality. HEART AND VASCULAR STRUCTURES: Cardiac enlargement. Vascular congestion. BONES: No acute findings. HARDWARE: Defibrillator. Sternotomy wires. Central line. OTHER: No other significant finding. IMPRESSION: CARDIAC ENLARGEMENT. VASCULAR CONGESTION. TECHNICAL DOCUMENTATION: JOB ID: [id number] 2010 [employer]- All Rights Reserved Reading location - IP/workstation name: [email or web address]
[2019-04-12] MEDS ORDERED: POTASSI CL 20 MEQ/50 ML RIDER 20 MEQ/50 ML RTUPB IV ONE (08:30)
[2019-04-12] MEDS: OXYCODONE-ACETAMINOPHEN 5-325 MG TABLET PO PRN ×4 (08:42→21:50)
[2019-04-12] MEDS: PAROXETINE HCL 20 MG TABLET PO SCH (09:23)
[2019-04-12] MEDS: LEVOFLOXACIN 750 MG TABLET PO SCH (09:23)
[2019-04-12] MEDS: METOPROLOL SUCCINATE 25 MG TAB.SR.24H PO SCH ×2 (09:23→21:13)
[2019-04-12] MEDS: MAGNESIUM OXIDE 400 MG TABLET PO SCH ×2 (09:23→17:27)
[2019-04-12] MEDS: ASPIRIN 81 MG TABLET, ENT COATED PO SCH (09:23)
[2019-04-12] MEDS: POTASSIUM CHLORIDE 10 MEQ TABLET.ER PO SCH ×2 (09:24→17:27)
[2019-04-12] MEDS: FAMOTIDINE 20 MG TABLET PO SCH (09:24)
[2019-04-12] MEDS: ISOSORBIDE MONONITRATE 30 MG TAB.ER.24H PO SCH (09:25)
[2019-04-12] MEDS: BUSPIRONE HCL 10 MG TABLET PO SCH ×2 (09:25→17:27)
[2019-04-12] MEDS: APIXABAN 2.5 MG TABLET PO SCH ×2 (09:25→17:27)
[2019-04-12] MEDS: FUROSEMIDE 40 MG TABLET PO SCH ×2 (09:25→17:27)
[2019-04-12] MEDS: NORMAL SALINE 10 ML SDV (SCHEDULED) IV SCH ×2 (09:25→21:15)
[2019-04-12] MEDS: FLUTICASONE NASAL SPRAY 50 MCG/SPRY 120 SPRAY/16 GM NASL SCH ×2 (10:00→21:15)
[2019-04-12] MEDS: RIFAMPIN 600 MG in NORMAL SALINE 500 ML IV SCH (11:05)
[2019-04-12] MEDS: LIDOCAINE 5% (700 MG) TRANSDERMAL ADH..PATCH TP PRN (11:06)
[2019-04-12] MEDS: VANCOMYCIN HCL 1,250 MG in DEXTROSE 5%-WATER 250 ML IV SCH (17:27)
[2019-04-12] MEDS ORDERED: FUROSEMIDE INJ/PF 40 MG/4 ML SDV IV SCH (17:30)
--- NOTE | 2019-04-12 17:40 | PDOC PROGRESS REPORT ---
Subjective Progress Note for:: 04/12/19 Subjective:: Patient feels well today but she had very dyspneic while ambulating yesterday. Ambulatory pulse ox desatted and required oxygen to be increased to 5 L to maintain SPO2 over 90. Reason For Visit: PNEUMONIA CHF EXACERBATION Physical Exam Vital Signs: Temp Pulse Resp BP Pulse Ox 98.2 F 61 16 132/90 H 92 04/12/19 11:49 04/12/19 14:00 04/12/19 13:47 04/12/19 11:49 04/12/19 13:47 Intake & Output 04/11/19 04/12/19 04/13/19 06:59 06:59 06:59 Intake Total 2130 1360 800 Output Total 900 450 Balance 1230 910 800 Weight 104.3 kg 104.1 kg General appearance: PRESENT: no acute distress, cooperative Neck exam: ABSENT: JVD Respiratory exam: PRESENT: crackles - Mild crackles in right lung, symmetrical, unlabored. ABSENT: tachypnea, wheezes Cardiovascular exam: PRESENT: RRR, +S1, +S2. ABSENT: tachycardia GI/Abdominal exam: PRESENT: soft. ABSENT: rebound, rigid, tenderness Extremities exam: PRESENT: pedal edema Musculoskeletal exam: PRESENT: ambulatory Neurological exam: PRESENT: alert, awake, oriented to person, oriented to place, oriented to time Results Laboratory Results: 04/09/19 09:50 04/12/19 05:00 04/12/19 05:00 Sodium 141.9 Potassium 3.4 L Chloride 101 Carbon Dioxide 32 H Anion Gap 9 BUN 14 Creatinine 2.00 H Est GFR ( Amer) 32 L Glucose 90 Calcium 8.8 04/04/19 04/04/19 04/04/19 17:15 17:15 20:26 Creatine Kinase 30 CK-MB (CK-2) 0.91 Troponin I 0.154 0.216 NT-Pro-B Natriuret Pep 31572 H 04/05/19 07:33 Creatine Kinase CK-MB (CK-2) Troponin I 0.117 NT-Pro-B Natriuret Pep Impressions: Chest X-Ray 04/12/19 06:00 IMPRESSION: CARDIAC ENLARGEMENT. VASCULAR CONGESTION. Assessment and Plan - Diagnosis (1) Acute on chronic respiratory failure with hypoxia Is this a current diagnosis for this admission?: Yes Plan: Of note, patient uses 2 to 3 L nasal cannula at home. However on ambulatory pulse ox patient desatted into low 80s on 3 L nasal cannula requiring oxygen to be bumped up to 5 L Etiology is a multi-factorial including COPD, ischemic cardiomyopathy as well as pneumonia Continue nasal cannula and PRN and nocturnal NIPPV. Being qualified for auto BiPAP. (2) Acute renal failure superimposed on chronic kidney disease Qualifiers: Acute renal failure type: unspecified Chronic kidney disease stage: stage 3 (moderate) Qualified Code(s): N17.9 - Acute kidney failure, unspecified; N18.3 - Chronic kidney disease, stage 3 (moderate) Is this a current diagnosis for this admission?: Yes Plan: Baseline creatinine seems to be between 1.6-2 Creatinine bumped up to 2 today. Will increase Lasix back to IV. Strict I's and O's. Strict compliance with fluid restriction. (3) Ischemic cardiomyopathy with implantable cardioverter-defibrillator (ICD) Is this a current diagnosis for this admission?: Yes Plan: History of severely depressed ejection fraction (20% to 25%). Status post an implanted defibrillator/pacemaker with previously infected leads as per previous JOSS. Already has a PICC line for previous MRSA bacteremia currently on vancomycin. Continue statins, Lasix, Imdur, Beta-blockers. Doses adjusted by Dr. Ragsdale Started on Entresto today. Lasix increased to 40 mg p.o. IV twice daily (4) CAP (community acquired pneumonia) due to MRSA (methicillin resistant Staphylococcus aureus) Is this a current diagnosis for this admission?: Yes Plan: Reviewed prior records. Patient was discharged last on vancomycin up until 04/16/2019 for MRSA pneumonia and bacteremia. Documentation shows this was the recommendation of infectious disease. Continue vancomycin, rifampin and placed on Levaquin for 1 more day Status post 3 days of cefepime Repeat chest x-ray she seems to show improvement of pneumonia but still has pulmonary vascular congestion and some pulmonary edema. (5) MRSA bacteremia Is this a current diagnosis for this admission?: Yes Plan: Continue vancomycin and rifampin until 04/16/2019. Monitor vancomycin troughs. Repeat blood cultures negative. (6) Anemia Qualifiers: Anemia type: due to chronic kidney disease Chronic kidney disease stage: stage 3 (moderate) Qualified Code(s): N18.3 - Chronic kidney disease, stage 3 (moderate); D63.1 - Anemia in chronic kidney disease Is this a current diagnosis for this admission?: Yes (7) Paroxysmal atrial fibrillation Is this a current diagnosis for this admission?: Yes Plan: Continue Toprol-XL and Eliquis. (8) RUBIN (obstructive sleep apnea) Is this a current diagnosis for this admission?: Yes Plan: Discussed qualification with Dr. Frederick who is recommending the patient should be qualified for an auto-Bipap. Settings given to discharge planning. [facility] company requiring a.m. ABG which will check after patient sleeps on oxygen tomorrow morning. And then again on BiPAP. Patient is to follow-up with Dr. Frederick for continued management of obstructive sleep apnea. - Time Time Spent with patient: 15-24 minutes
--- NOTE | 2019-04-12 17:51 | Progress Note ---
Provider Note Provider Note: CARDIOLOGY PROGRESS NOTE by Dr. Griselda Martin on 04/12/2019. Subjective: The patient states she feels less short of breath. There is no PND orthopnea. There is only trace leg edema. Renal function has gone up with a creatinine from 1.5-2.0. She denies any PND orthopnea. There is no firing of her AICD. There is no atrial or ventricular arrhythmia seen and especially there is no recurrence of atrial fibrillation. There is no bleeding on Eliquis. The chest x-ray continues to show heart failure. In view of this we will change the patient's Lasix to IV and watch the patient's BUN/creatinine closely. Also on review of the patient's medication administration record the patient is not on Entresto. We will recent start the patient on Entresto. This has been discussed with the hospitalist. PHYSICAL EXAMINATION: The patient is morbidly obese. But at present in no acute distress. Selected Entries 04/12/19 11:49 Temperature 98.2 F Temperature Oral Source Pulse Rate 62 Respiratory 16 Rate Blood Pressure 132/90 H Blood Pressure 104 Mean BP Location Right Arm BP Position Supine O2 Sat by Pulse 96 Oximetry Oxygen Flow 3.00 Rate Oxygen Delivery Nasal Cannula Method HEAD: Is atraumatic normocephalic. EYES: Pupils are equal round regular r eactive to light. HEENT is negative. SKIN: There is no skin rashes or skin lesions. There is no particular ecchymosis. NECK: Is supple. There is mild JVD present. Carotids are equal there is no bruits. There is no lymphadenopathy. There is no goiter. There is no accessory muscle respiration use. Trachea central. LUNGS: At present the lungs are fairly clear to auscultation, without any rhonchi or wheezing. There is dry crackles in the right lower lobe and right middle lobe. There is egophony in the right middle lobe. There is diminished air entry. On percussion there is hyperresonance. On palpation there is no chest wall tenderness. HEART: S1-S2 is heard. There is no S3 gallop. There is no S4 gallop. There is systolic murmur mitral regurgitation tricuspid regurgitation present. There is no aortic stenosis murmur. There is no aortic insufficiency murmur. There is no rub. ABDOMEN: Is obese. Nontender. There is no hepatosplenomegaly. Bowel sounds are well heard. There is no rebound guarding or rigidity. EXTREMITIES: Femorals are deep. Femorals are diminished. There is no femoral bruits. There is decreased leg pulses. There is mild pedal edema. reconciliation specialist the patient is conscious awake alert oriented x3 with no focal deficits. PSYCHIATRIC: The patient judgment insight are intact. She does not appear to be agitated or anxious. Labs- All tests 24 hr 04/12/19 05:00 Sodium 141.9 Potassium 3.4 L Chloride 101 Carbon Dioxide 32 H Anion Gap 9 BUN 14 Creatinine 2.00 H Est GFR ( Amer) 32 L Est GFR (MDRD) Non-Af 27 L Glucose 90 Calcium 8.8 Chest X-Ray 04/04/19 16:38 IMPRESSION: INTERVAL WORSENING OF BILATERAL AIRSPACE DISEASE, PARTICULARLY IN THE RIGHT LUNG. Chest X-Ray 04/08/19 06:00 IMPRESSION: CHF. No significant change. Chest X-Ray 04/12/19 06:00 IMPRESSION: CARDIAC ENLARGEMENT. VASCULAR CONGESTION. IMPRESSION/RECOMMENDATION: 1. Acute on chronic respiratory failure. This is multifactorial secondary to the patient's acute on chronic systolic heart failure, sleep apnea and acute exacerbation of COPD and pneumonia. 2. Elevated troponin I most likely secondary to supply demand mismatch. No evidence of non-ST elevation [place]. Hence we will treat the underlying cause and not treat this as a non-ST elevation [place]. 3. Acute on chronic systolic heart failure. Patient with LV ejection fraction of 25%. Continue beta-blockers and restart Entresto. Continue diuretics. But will change to IV Lasix. Watch the patient BUN/creatinine closely. 4. Acute exacerbation COPD: Continue bronchodilators. Improving. 5. MRSA pneumonia: Continue antibiotics. There is egophony suggestive of consolidation in the right middle lobe. We will recheck the patient's chest x- ray in the a.m. 6. History of amiodarone toxicity. Would recommend avoiding amiodarone 7. Acute on chronic kidney disease: Watch renal function as we implement aggressive diuresis. 8. Cardiomyopathy with severely reduced LV ejection fraction. Her medications adjusted. Her beta-rip has been decreased to Toprol 25 mg XL once daily since she is taking by mouth. Entresto has been decreased to 49/51.. Will decrease the patient's isosorbide mononitrate from 60 mg to 30 mg p.o. daily. 9. Paroxysmal atrial fibrillation: Continue beta-rip. The patient Eliquis had to be stopped due to patient's anemia and also prior occult positive bloo blood in the stools. The patient later will be restarted on Eliquis. 10. History of ventricular tachycardia, The patient has an AICD placed. If there is recurrence of ventricular tachycardia or major ventricular ectopic activity then would start the patient on small dose of sotalol. Would avoid amiodarone. 11. Hypertension: Blood pressure well controlled, on current medications. 12. Coronary artery disease: History of [place] and history of coronary bypass graft surgery. No evidence of acute coronary syndrome/non-ST ST elevation NJ this admission. 13. Obstructive sleep apnea. Note patient has been noncompliant with CPAP. Most likely has significant pulmonary hypertension. 14. AICD placement: Note the patient's basal rate is around 60 bpm. If the patient's heart failure continues then would recommend increasing the basal heart rate to 80 bpm to help combat the heart failure along with diuretics. 15. MRSA bacteremia: Continue antibiotics. Repeat blood cultures are far negative for growth of MRSA. Discussed with the hospitalist. The patient had rhabdomyolysis with rifamycin. Hence patient was switched to vancomycin. Medications reviewed. Medications adjusted and also medications started. Me dical regimen and management plan discussed with attending physician. The patient is on multiple medications and has multiple comorbidities. Hence medical decision making is of high complexity. 40 minutes spent on this patient with more than 50% time spent in direct patient care. Will follow.
[2019-04-12 17:52] LABS: VANCOMYCIN,TROUGH 14.8 ug/mL (5.0-20.0)
[2019-04-12] MEDS: FUROSEMIDE INJ/PF 40 MG/4 ML SDV IV SCH (18:17)
[2019-04-12] MEDS: SACUBITRIL/VALSARTAN 24 MG/26 MG TABLET PO SCH (18:17)
[2019-04-12] MEDS: ATORVASTATIN CALCIUM 80 MG TABLET PO SCH (21:13)
[2019-04-12] MEDS: ALPRAZOLAM 0.5 MG TABLET PO PRN (21:14)
[2019-04-12] MEDS: SENNOSIDES/DOCUSATE 8.6-50 MG 1 EACH TABLET PO SCH (21:14)
[2019-04-13] MEDS: IPRATROPIUM BROMIDE 0.02% NEB 0.5 MG/2.5 ML AMPUL NEB SCH ×4 (02:02→19:03)
[2019-04-13] MEDS: LEVALBUTEROL HCL NEB 1.25 MG/3 ML AMPUL NEB SCH ×4 (02:02→19:03)
[2019-04-13 06:46] LABS: ANION GAP 8 (5-19); BLOOD UREA NITROGEN 12 mg/dL (7-20); CALCIUM 9.4 mg/dL (8.4-10.2); CARBON DIOXIDE 33 mmol/L (22-30); CHLORIDE 102 mmol/L (98-107); GLUCOSE 93 mg/dL (75-110); POTASSIUM 3.9 mmol/L (3.6-5.0)
[2019-04-13 08:14] LABS: ARTERIAL BLOOD BASE EXCESS 6.6 mmol/L; ARTERIAL BLOOD H2CO3 1.37 mmol/L (1.05-1.35); ARTERIAL BLOOD HCO3 31.3 mmol/L (20-24); ARTERIAL BLOOD PCO2 45.5 mmHg (35-45); ARTERIAL BLOOD PH 7.46 (7.35-7.45); ARTERIAL BLOOD PO2 63.1 mmHg (80-100); ARTERIAL BLOOD TOTAL CO2 32.7 mmol/L (21-25)
[2019-04-13 08:21] LABS: ARTERIAL BLOOD FIO2 32%
[2019-04-13] MEDS: RIFAMPIN 300 MG CAPSULE PO SCH (09:17)
[2019-04-13] MEDS: METOPROLOL SUCCINATE 25 MG TAB.SR.24H PO SCH ×2 (09:18→21:05)
[2019-04-13] MEDS: PAROXETINE HCL 20 MG TABLET PO SCH (09:18)
[2019-04-13] MEDS: FAMOTIDINE 20 MG TABLET PO SCH (09:18)
[2019-04-13] MEDS: SACUBITRIL/VALSARTAN 24 MG/26 MG TABLET PO SCH ×2 (09:23→17:55)
[2019-04-13] MEDS: ISOSORBIDE MONONITRATE 30 MG TAB.ER.24H PO SCH (09:23)
[2019-04-13] MEDS: APIXABAN 2.5 MG TABLET PO SCH ×2 (09:24→17:26)
[2019-04-13] MEDS: ASPIRIN 81 MG TABLET, ENT COATED PO SCH (09:24)
[2019-04-13] MEDS: LEVOFLOXACIN 750 MG TABLET PO SCH (09:24)
[2019-04-13] MEDS: BUSPIRONE HCL 10 MG TABLET PO SCH ×2 (09:24→17:26)
[2019-04-13] MEDS: POTASSIUM CHLORIDE 10 MEQ TABLET.ER PO SCH ×2 (09:25→17:26)
[2019-04-13] MEDS: OXYCODONE-ACETAMINOPHEN 5-325 MG TABLET PO PRN ×3 (09:25→21:08)
[2019-04-13] MEDS: FLUTICASONE NASAL SPRAY 50 MCG/SPRY 120 SPRAY/16 GM NASL SCH ×2 (09:42→21:03)
[2019-04-13] MEDS: FUROSEMIDE INJ/PF 40 MG/4 ML SDV IV SCH ×2 (09:50→17:26)
[2019-04-13] MEDS: NORMAL SALINE 10 ML SDV (SCHEDULED) IV SCH ×2 (10:55→21:06)
[2019-04-13] MEDS: LIDOCAINE 5% (700 MG) TRANSDERMAL ADH..PATCH TP PRN (11:34)
--- NOTE | 2019-04-13 15:10 | PDOC PROGRESS REPORT ---
Subjective Progress Note for:: 04/13/19 Subjective:: Patient feels well today. Denies any worsening of shortness of breath. Endorses mild improvement. Has not done much ambulation today. Reason For Visit: PNEUMONIA CHF EXACERBATION Physical Exam Vital Signs: Temp Pulse Resp BP Pulse Ox 98.6 F 60 16 135/83 H 94 04/13/19 11:33 04/13/19 13:36 04/13/19 13:36 04/13/19 11:33 04/13/19 13:36 Intake & Output 04/12/19 04/13/19 04/14/19 06:59 06:59 06:59 Intake Total 1360 2565 655 Output Total 450 3700 1000 Balance 120 -3957 -527 Weight 104.1 kg 101.8 kg General appearance: PRESENT: no acute distress, cooperative Neck exam: ABSENT: JVD Respiratory exam: PRESENT: crackles - Right, unlabored. ABSENT: accessory muscle use, tachypnea, wheezes Cardiovascular exam: PRESENT: RRR, +S1, +S2. ABSENT: tachycardia GI/Abdominal exam: PRESENT: soft. ABSENT: rebound, rigid, tenderness Extremities exam: PRESENT: pedal edema Neurological exam: PRESENT: alert, awake, oriented to person, oriented to place, oriented to time Results Laboratory Results: 04/09/19 09:50 04/13/19 06:17 04/13/19 04/13/19 06:17 08:00 Carbonic Acid 1.37 H HCO3/H2CO3 Ratio 22:1 ABG pH 7.46 H ABG pCO2 45.5 H ABG pO2 63.1 L ABG HCO3 31.3 H ABG O2 Saturation 93.0 L ABG Base Excess 6.6 FiO2 32% Sodium 143.0 Potassium 3.9 Chloride 102 Carbon Dioxide 33 H Anion Gap 8 BUN 12 Creatinine 1.74 H Est GFR ( Amer) 38 L Glucose 93 Calcium 9.4 Magnesium 1.8 04/04/19 04/04/19 04/04/19 17:15 17:15 20:26 Creatine Kinase 30 CK-MB (CK-2) 0.91 Troponin I 0.154 0.216 NT-Pro-B Natriuret Pep [id number] H 04/05/19 07:33 Creatine Kinase CK-MB (CK-2) Troponin I 0.117 NT-Pro-B Natriuret Pep Impressions: Chest X-Ray 04/12/19 06:00 IMPRESSION: CARDIAC ENLARGEMENT. VASCULAR CONGESTION. Assessment and Plan - Diagnosis (1) Acute on chronic respiratory failure with hypoxia Is this a current diagnosis for this admission?: Yes Plan: Patient reports that she uses 2 to 3 L nasal cannula at home and often bumped it up to 5 L nasal cannula when ambulating. Etiology is a multi-factorial including COPD, ischemic cardiomyopathy as well as pneumonia Continue nasal cannula and PRN and nocturnal NIPPV. Being qualified for nocturnal auto BiPAP. (2) Acute renal failure superimposed on chronic kidney disease Qualifiers: Acute renal failure type: unspecified Chronic kidney disease stage: stage 3 (moderate) Qualified Code(s): N17.9 - Acute kidney failure, unspecified; N18.3 - Chronic kidney disease, stage 3 (moderate) Is this a current diagnosis for this admission?: Yes Plan: Baseline creatinine seems to be between 1.6-2 Creatinine down to 1.8 today. Continue Lasix 40 mg IV twice daily. Strict I's and O's. Strict compliance with fluid restriction. (3) Ischemic cardiomyopathy with implantable cardioverter-defibrillator (ICD) Is this a current diagnosis for this admission?: Yes Plan: History of severely depressed ejection fraction (20% to 25%). Status post an implanted defibrillator/pacemaker with previously infected leads as per previous JOSS. Already has a PICC line for previous MRSA bacteremia currently on vancomycin. Continue statins, Lasix IV, Imdur, Beta-blockers. Doses adjusted by Dr. Ragsdale Continue Entresto (4) CAP (community acquired pneumonia) due to MRSA (methicillin resistant Staphylococcus aureus) Is this a current diagnosis for this admission?: Yes Plan: Reviewed prior records. Patient was discharged last on vancomycin up until 04/16/2019 for MRSA pneumonia and bacteremia. Documentation shows this was the recommendation of infectious disease. Repeat chest x-ray 04/12/2019 she seems to show improvement of pneumonia but still has pulmonary vascular congestion and some pulmonary edema. Was previously on cefepime and Zosyn. Last day of Levaquin today. (5) MRSA bacteremia Is this a current diagnosis for this admission?: Yes Plan: Continue vancomycin and rifampin until 04/16/2019. Monitor vancomycin troughs. Repeat blood cultures negative. (6) Anemia Qualifiers: Anemia type: due to chronic kidney disease Chronic kidney disease stage: stage 3 (moderate) Qualified Code(s): N18.3 - Chronic kidney disease, stage 3 (moderate); D63.1 - Anemia in chronic kidney disease Is this a current diagnosis for this admission?: Yes (7) Paroxysmal atrial fibrillation Is this a current diagnosis for this admission?: Yes Plan: Continue Toprol-XL and Eliquis. (8) RUBIN (obstructive sleep apnea) Is this a current diagnosis for this admission?: Yes Plan: Discussed qualification with Dr. Frederick who is recommending the patient should be qualified for a nocturnal auto-Bipap as CPAP did not adequately resolve her sleep apnea on titration studies. Settings given to discharge planning. A.m. ABG obtained. Results reviewed. - Time Time Spent with patient: 15-24 minutes
[2019-04-13] MEDS: VANCOMYCIN HCL 1,250 MG in DEXTROSE 5%-WATER 250 ML IV SCH (17:25)
[2019-04-13] MEDS: ATORVASTATIN CALCIUM 80 MG TABLET PO SCH (21:05)
[2019-04-13] MEDS: ALPRAZOLAM 0.5 MG TABLET PO PRN (21:05)
[2019-04-13] MEDS: SENNOSIDES/DOCUSATE 8.6-50 MG 1 EACH TABLET PO SCH ×2 (21:05→21:37)
[2019-04-14] MEDS: IPRATROPIUM BROMIDE 0.02% NEB 0.5 MG/2.5 ML AMPUL NEB SCH ×4 (02:04→20:06)
[2019-04-14] MEDS: LEVALBUTEROL HCL NEB 1.25 MG/3 ML AMPUL NEB SCH ×4 (02:04→20:06)
[2019-04-14 06:39] LABS: ARTERIAL BLOOD BASE EXCESS 5.4 mmol/L; ARTERIAL BLOOD FIO2 35%; ARTERIAL BLOOD H2CO3 1.47 mmol/L (1.05-1.35); ARTERIAL BLOOD HCO3 30.8 mmol/L (20-24); ARTERIAL BLOOD O2 SATURATION 96.7 % (94-98); ARTERIAL BLOOD PCO2 48.9 mmHg (35-45); ARTERIAL BLOOD PH 7.42 (7.35-7.45); ARTERIAL BLOOD PO2 88.1 mmHg (80-100); ARTERIAL BLOOD TOTAL CO2 32.3 mmol/L (21-25)
[2019-04-14] MEDS: FUROSEMIDE INJ/PF 40 MG/4 ML SDV IV SCH ×2 (09:44→17:44)
[2019-04-14] MEDS: NORMAL SALINE 10 ML SDV (SCHEDULED) IV SCH ×2 (09:45→22:03)
[2019-04-14] MEDS: ISOSORBIDE MONONITRATE 30 MG TAB.ER.24H PO SCH (09:47)
[2019-04-14] MEDS: FAMOTIDINE 20 MG TABLET PO SCH (09:47)
[2019-04-14] MEDS: RIFAMPIN 300 MG CAPSULE PO SCH (09:47)
[2019-04-14] MEDS: PAROXETINE HCL 20 MG TABLET PO SCH (09:47)
[2019-04-14] MEDS: POTASSIUM CHLORIDE 10 MEQ TABLET.ER PO SCH ×2 (09:47→17:45)
[2019-04-14] MEDS: ASPIRIN 81 MG TABLET, ENT COATED PO SCH (09:47)
[2019-04-14] MEDS: SACUBITRIL/VALSARTAN 24 MG/26 MG TABLET PO SCH ×2 (09:47→17:45)
[2019-04-14] MEDS: APIXABAN 2.5 MG TABLET PO SCH ×2 (09:47→17:45)
[2019-04-14] MEDS: BUSPIRONE HCL 10 MG TABLET PO SCH ×2 (09:47→17:44)
[2019-04-14] MEDS: METOPROLOL SUCCINATE 25 MG TAB.SR.24H PO SCH ×2 (09:48→22:02)
[2019-04-14] MEDS: LIDOCAINE 5% (700 MG) TRANSDERMAL ADH..PATCH TP PRN (12:44)
[2019-04-14] MEDS: FLUTICASONE NASAL SPRAY 50 MCG/SPRY 120 SPRAY/16 GM NASL SCH ×2 (12:44→22:02)
--- NOTE | 2019-04-14 15:01 | PDOC PROGRESS REPORT ---
Subjective Progress Note for:: 04/14/19 Subjective:: Patient feels better today. Slept much better than yesterday. Denies any shortness of breath at rest today. Reason For Visit: PNEUMONIA CHF EXACERBATION Physical Exam Vital Signs: Temp Pulse Resp BP Pulse Ox 98.5 F 70 16 136/95 H 94 04/14/19 11:07 04/14/19 13:43 04/14/19 13:43 04/14/19 11:07 04/14/19 13:43 Intake & Output 04/13/19 04/14/19 04/15/19 06:59 06:59 06:59 Intake Total 2565 1378 550 Output Total 3700 1800 200 Balance -1135 -422 350 Weight 101.8 kg 101.6 kg General appearance: PRESENT: no acute distress, cooperative Neck exam: ABSENT: JVD Respiratory exam: ABSENT: accessory muscle use, retraction, tachypnea Cardiovascular exam: PRESENT: RRR, +S1, +S2. ABSENT: tachycardia GI/Abdominal exam: PRESENT: soft. ABSENT: rebound, rigid, tenderness Neurological exam: PRESENT: alert, awake Results Laboratory Results: 04/09/19 09:50 04/13/19 06:17 04/14/19 06:30 Carbonic Acid 1.47 H HCO3/H2CO3 Ratio 20:1 ABG pH 7.42 ABG pCO2 48.9 H ABG pO2 88.1 ABG HCO3 30.8 H ABG O2 Saturation 96.7 ABG Base Excess 5.4 FiO2 35% 04/04/19 04/04/19 04/04/19 17:15 17:15 20:26 Creatine Kinase 30 CK-MB (CK-2) 0.91 Troponin I 0.154 0.216 NT-Pro-B Natriuret Pep 88197 H 04/05/19 07:33 Creatine Kinase CK-MB (CK-2) Troponin I 0.117 NT-Pro-B Natriuret Pep Impressions: Chest X-Ray 04/12/19 06:00 IMPRESSION: CARDIAC ENLARGEMENT. VASCULAR CONGESTION. Assessment and Plan - Diagnosis (1) Acute on chronic respiratory failure with hypoxia Is this a current diagnosis for this admission?: Yes Plan: Improved Patient reports that she uses 2 to 3 L nasal cannula at home and often bumped it up to 5 L nasal cannula when ambulating. Etiology is a multi-factorial including COPD, ischemic cardiomyopathy as well as pneumonia Continue nasal cannula and PRN and nocturnal NIPPV. Still in the process of being qualified for nocturnal auto BiPAP. (2) Acute renal failure superimposed on chronic kidney disease Qualifiers: Acute renal failure type: unspecified Chronic kidney disease stage: stage 3 (moderate) Qualified Code(s): N17.9 - Acute kidney failure, unspecified; N18.3 - Chronic kidney disease, stage 3 (moderate) Is this a current diagnosis for this admission?: Yes (3) Ischemic cardiomyopathy with implantable cardioverter-defibrillator (ICD) Is this a current diagnosis for this admission?: Yes (4) CAP (community acquired pneumonia) due to MRSA (methicillin resistant Staphylococcus aureus) Is this a current diagnosis for this admission?: Yes (5) MRSA bacteremia Is this a current diagnosis for this admission?: Yes (6) Anemia Qualifiers: Anemia type: due to chronic kidney disease Chronic kidney disease stage: stage 3 (moderate) Qualified Code(s): N18.3 - Chronic kidney disease, stage 3 (moderate); D63.1 - Anemia in chronic kidney disease Is this a current diagnosis for this admission?: Yes (7) Paroxysmal atrial fibrillation Is this a current diagnosis for this admission?: Yes (8) RUBIN (obstructive sleep apnea) Is this a current diagnosis for this admission?: Yes - Plan Summary Summary: Pulse ox is very stable on 3 L nasal cannula which is patient's baseline at rest. Has completed current treatment for pneumonia. Continue Lasix for diuresis with plans to switch to p.o. tomorrow Was given lab holiday today. Will check BMP tomorrow to monitor renal function given her CKD. Continue current attempt to qualify patient for nocturnal BiPAP given her RUBIN on outpatient sleep study. Discharge planning involved. - Time Time Spent with patient: Less than 15 minutes
[2019-04-14] MEDS: VANCOMYCIN HCL 1,250 MG in DEXTROSE 5%-WATER 250 ML IV SCH (17:44)
[2019-04-14] MEDS: OXYCODONE-ACETAMINOPHEN 5-325 MG TABLET PO PRN ×2 (18:19→22:22)
[2019-04-14] MEDS: SENNOSIDES/DOCUSATE 8.6-50 MG 1 EACH TABLET PO SCH (21:57)
[2019-04-14] MEDS: ATORVASTATIN CALCIUM 80 MG TABLET PO SCH (22:02)
[2019-04-14] MEDS: ALPRAZOLAM 0.5 MG TABLET PO PRN (22:23)
--- NOTE | 2019-04-14 22:29 | Progress Note ---
Provider Note Provider Note: CARDIOLOGY PROGRESS NOTE by Dr. Griselda Cruz.
[2019-04-15] MEDS: LEVALBUTEROL HCL NEB 1.25 MG/3 ML AMPUL NEB SCH ×4 (01:31→21:02)
[2019-04-15] MEDS: IPRATROPIUM BROMIDE 0.02% NEB 0.5 MG/2.5 ML AMPUL NEB SCH ×4 (01:31→21:03)
[2019-04-15] MEDS: NORMAL SALINE 10 ML SDV (AFTER EACH USE) IV PRN (05:58)
[2019-04-15 06:36] LABS: ANION GAP 6 (5-19); BLOOD UREA NITROGEN 12 mg/dL (7-20); CALCIUM 8.8 mg/dL (8.4-10.2); CARBON DIOXIDE 32 mmol/L (22-30); CHLORIDE 102 mmol/L (98-107); GLUCOSE 100 mg/dL (75-110); POTASSIUM 4.4 mmol/L (3.6-5.0)
[2019-04-15] MEDS: FUROSEMIDE INJ/PF 40 MG/4 ML SDV IV SCH ×2 (10:16→17:35)
[2019-04-15] MEDS: FLUTICASONE NASAL SPRAY 50 MCG/SPRY 120 SPRAY/16 GM NASL SCH ×2 (10:16→21:50)
[2019-04-15] MEDS: OXYCODONE-ACETAMINOPHEN 5-325 MG TABLET PO PRN ×3 (10:18→23:02)
[2019-04-15] MEDS: ASPIRIN 81 MG TABLET, ENT COATED PO SCH (10:21)
[2019-04-15] MEDS: ISOSORBIDE MONONITRATE 30 MG TAB.ER.24H PO SCH (10:21)
[2019-04-15] MEDS: APIXABAN 2.5 MG TABLET PO SCH ×2 (10:21→17:35)
[2019-04-15] MEDS: POTASSIUM CHLORIDE 10 MEQ TABLET.ER PO SCH ×2 (10:21→17:35)
[2019-04-15] MEDS: METOPROLOL SUCCINATE 25 MG TAB.SR.24H PO SCH ×2 (10:22→23:02)
[2019-04-15] MEDS: FAMOTIDINE 20 MG TABLET PO SCH (10:22)
[2019-04-15] MEDS: PAROXETINE HCL 20 MG TABLET PO SCH (10:23)
[2019-04-15] MEDS: SACUBITRIL/VALSARTAN 24 MG/26 MG TABLET PO SCH ×2 (10:23→17:36)
[2019-04-15] MEDS: RIFAMPIN 300 MG CAPSULE PO SCH (10:23)
[2019-04-15] MEDS: NORMAL SALINE 10 ML SDV (SCHEDULED) IV SCH ×2 (10:24→23:03)
[2019-04-15] MEDS: BUSPIRONE HCL 10 MG TABLET PO SCH ×2 (10:32→17:35)
--- NOTE | 2019-04-15 13:38 | PDOC PROGRESS REPORT ---
Subjective Progress Note for:: 04/15/19 Subjective:: Patient feels well today. Has no complaints at this time. States her breathing is at baseline. Reason For Visit: PNEUMONIA CHF EXACERBATION Physical Exam Vital Signs: Temp Pulse Resp BP Pulse Ox 98.1 F 59 L 16 117/70 95 04/15/19 10:52 04/15/19 10:52 04/15/19 10:52 04/15/19 10:52 04/15/19 10:52 Intake & Output 04/14/19 04/15/19 04/16/19 06:59 06:59 06:59 Intake Total 1378 1550 Output Total 1800 2700 Balance -422 -1150 Weight 101.6 kg 101.6 kg General appearance: PRESENT: no acute distress, cooperative Neck exam: ABSENT: JVD Respiratory exam: PRESENT: symmetrical, unlabored. ABSENT: accessory muscle use, retraction, tachypnea Cardiovascular exam: ABSENT: tachycardia Neurological exam: PRESENT: alert, awake, oriented to person, oriented to place, oriented to time, oriented to situation Results Laboratory Results: 04/09/19 09:50 04/15/19 05:45 04/15/19 05:45 Sodium 140.0 Potassium 4.4 Chloride 102 Carbon Dioxide 32 H Anion Gap 6 BUN 12 Creatinine 1.68 H Est GFR ( Amer) 40 L Glucose 100 Calcium 8.8 Magnesium 1.9 04/04/19 04/04/19 04/04/19 17:15 17:15 20:26 Creatine Kinase 30 CK-MB (CK-2) 0.91 Troponin I 0.154 0.216 NT-Pro-B Natriuret Pep 11096 H 04/05/19 07:33 Creatine Kinase CK-MB (CK-2) Troponin I 0.117 NT-Pro-B Natriuret Pep Impressions: Chest X-Ray 04/12/19 06:00 IMPRESSION: CARDIAC ENLARGEMENT. VASCULAR CONGESTION. Assessment and Plan - Diagnosis (1) Acute on chronic respiratory failure with hypoxia Is this a current diagnosis for this admission?: Yes (2) Acute renal failure superimposed on chronic kidney disease Qualifiers: Acute renal failure type: unspecified Chronic kidney disease stage: stage 3 (moderate) Qualified Code(s): N17.9 - Acute kidney failure, unspecified; N18.3 - Chronic kidney disease, stage 3 (moderate) Is this a current diagnosis for this admission?: Yes (3) Ischemic cardiomyopathy with implantable cardioverter-defibrillator (ICD) Is this a current diagnosis for this admission?: Yes (4) CAP (community acquired pneumonia) due to MRSA (methicillin resistant Staphylococcus aureus) Is this a current diagnosis for this admission?: Yes (5) MRSA bacteremia Is this a current diagnosis for this admission?: Yes (6) Anemia Qualifiers: Anemia type: due to chronic kidney disease Chronic kidney disease stage: stage 3 (moderate) Qualified Code(s): N18.3 - Chronic kidney disease, stage 3 (moderate); D63.1 - Anemia in chronic kidney disease Is this a current diagnosis for this admission?: Yes (7) Paroxysmal atrial fibrillation Is this a current diagnosis for this admission?: Yes (8) RUBIN (obstructive sleep apnea) Is this a current diagnosis for this admission?: Yes - Plan Summary Summary: Completed antibiotics treatment for pneumonia. Ambulate patient on 3 to 5 L nasal cannula as this is what she uses at home. Continue current heart failure regimen. Plans removed PICC line tomorrow after completion of antibiotics for MRSA bacteremia. - Time Time Spent with patient: Less than 15 minutes
--- NOTE | 2019-04-15 14:07 | Progress Note ---
Provider Note Provider Note: CARDIOLOGY PROGRESS NOTE by Dr. Griselda Martin on 04/15/2019 SUBJECTIVE: The patient denies any shortness of breath. There is still some orthopnea but no PND. There is no chest pain or discomfort.. There is no recurrence of atrial fibrillation. There is no bleeding on Eliquis. There is no TIA CVA symptoms. There is no ventricle arrhythmia seen. There is no firing of the AICD. The patient has minimal cough which is nonproductive. There is no wheezing. There is no leg edema. PHYSICAL EXAMINATION: The patient is moderately obese. In no acute distress. Selected Entries 04/15/19 10:52 Temperature 98.1 F Temperature Oral Source Pulse Rate 59 L Respiratory 16 Rate Blood Pressure 117/70 Blood Pressure 85 Mean BP Location Right Arm BP Position Supine O2 Sat by Pulse 95 Oximetry Oxygen Flow 3.00 Rate Oxygen Delivery Nasal Cannula Method HEAD: Is atraumatic normocephalic. EYES: Pupils are equal round regular reactive to light. HEENT is negative. SKIN: There is no skin rashes or skin lesions. There is no particular ecchymosis. NECK: Is supple. There is mild JVD present. Carotids are equal there is no bruits. There is no lymphadenopathy. There is no goiter. There is no accessory muscle respiration use. Trachea central. LUNGS: At present the lungs are fairly clear to auscultation, without any rhonchi or wheezing. There is dry crackles in the right lower lobe and right middle lobe. There is egophony in the right middle lobe. There is diminished air entry. On percussion there is hyperresonance. On palpation there is no chest wall tenderness. HEART: S1-S2 is heard. There is no S3 gallop. There is no S4 gallop. There is systolic murmur mitral regurgitation tricuspid regurgitation present. There is no aortic stenosis murmur. There is no aortic insufficiency murmur. There is no rub. ABDOMEN: Is obese. Nontender. There is no hepatosplenomegaly. Bowel sounds are well heard. There is no rebound guarding or rigidity. EXTREMITIES: Femorals are deep. Femorals are diminished. There is no femoral bruits. There is decreased leg pulses. There is mild pedal edema. 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 PSYCHIATRIC: The patient judgment insight are intact. She does not appear to be agitated or anxious. Labs- All tests 24 hr 04/15/19 05:45 Sodium 140.0 Potassium 4.4 Chloride 102 Carbon Dioxide 32 H Anion Gap 6 BUN 12 Creatinine 1.68 H Est GFR ( Amer) 40 L Est GFR (MDRD) Non-Af 33 L Glucose 100 Calcium 8.8 Magnesium 1.9 Chest X-Ray 04/04/19 16:38 IMPRESSION: INTERVAL WORSENING OF BILATERAL AIRSPACE DISEASE, PARTICULARLY IN THE RIGHT LUNG. Chest X-Ray 04/08/19 06:00 IMPRESSION: CHF. No significant change. Chest X-Ray 04/12/19 06:00 IMPRESSION: CARDIAC ENLARGEMENT. VASCULAR CONGESTION. IMPRESSION/RECOMMENDATION: 1. Acute on chronic respiratory failure. This is multifactorial secondary to the patient's acute on chronic systolic heart failure, sleep apnea and acute exacerbation of COPD and pneumonia. We will recheck the chest x-ray in the a.m. 2. Elevated troponin I most likely secondary to supply demand mismatch. No evidence of non-ST elevation SC. Hence we will treat the underlying cause and not treat this as a non-ST elevation SC. 3. Acute on chronic systolic heart failure. Patient with LV ejection fraction of 25%. Continue beta-blockers and restart Entresto. Continue diuretics. But will change to IV Lasix. Watch the patient BUN/creatinine closely. 4. Acute exacerbation COPD: Continue bronchodilators. Improving. 5. MRSA pneumonia: Continue antibiotics. There is egophony suggestive of consolidation in the right middle lobe. We will recheck the patient's chest x- ray in the a.m. 6. History of amiodarone toxicity. Would recommend avoiding amiodarone 7. Acute on chronic kidney disease: Watch renal function as we implement aggressive diuresis. 8. Cardiomyopathy with severely reduced LV ejection fraction. Her medications adjusted. Her beta-rip has been decreased to Toprol 25 mg XL once daily since she is taking by mouth. Entresto has been decreased to 49/51.. Will decrease the patient's isosorbide mononitrate from 60 mg to 30 mg p.o. daily. 9. Paroxysmal atrial fibrillation: Continue beta-rip. The patient Eliquis had to be stopped due to patient's anemia and also prior occult positive bloo blood in the stools. The patient later will be restarted on Eliquis. 10. History of ventricular tachycardia, The patient has an AICD placed. If there is recurrence of ventricular tachycardia or major ventricular ectopic activity then would start the patient on small dose of sotalol. Would avoid amiodarone. 11. Hypertension: Blood pressure well controlled, on current medications. 12. Coronary artery disease: History of SC and history of coronary bypass graft surgery. No evidence of acute coronary syndrome/non-ST ST elevation SC this admission. 13. Obstructive sleep apnea. Note patient has been noncompliant with CPAP. Most likely has significant pulmonary hypertension. 14. AICD placement: Note the patient's basal rate is around 60 bpm. If the patient's heart failure continues then would recommend increasing the basal heart rate to 80 bpm to help combat the heart failure along with diuretics. 15. MRSA bacteremia: Continue antibiotics. Repeat blood cultures are far negative for growth of MRSA. Discussed with the hospitalist. The patient had rhabdomyolysis with rifamycin. Hence patient was switched to vancomycin. Medications reviewed. Medications adjusted and also medications started. Medical regimen and management plan discussed with attending physician. The patient is on multiple medications and has multiple comorbidities. Hence medical decision making is of high complexity. 40 minutes spent on this patient with more than 50% time spent in direct patient care. Will follow.
[2019-04-15] MEDS: VANCOMYCIN HCL 1,250 MG in DEXTROSE 5%-WATER 250 ML IV SCH (17:34)
[2019-04-15] MEDS: SENNOSIDES/DOCUSATE 8.6-50 MG 1 EACH TABLET PO SCH (21:50)
[2019-04-15] MEDS: ALPRAZOLAM 0.5 MG TABLET PO PRN (23:02)
[2019-04-15] MEDS: ATORVASTATIN CALCIUM 80 MG TABLET PO SCH (23:02)
[2019-04-16] MEDS: IPRATROPIUM BROMIDE 0.02% NEB 0.5 MG/2.5 ML AMPUL NEB SCH ×3 (02:34→13:47)
[2019-04-16] MEDS: LEVALBUTEROL HCL NEB 1.25 MG/3 ML AMPUL NEB SCH ×3 (02:34→13:47)
[2019-04-16] MEDS: FUROSEMIDE INJ/PF 40 MG/4 ML SDV IV SCH (09:28)
[2019-04-16] MEDS: NORMAL SALINE 10 ML SDV (SCHEDULED) IV SCH (09:29)
[2019-04-16] MEDS: POTASSIUM CHLORIDE 10 MEQ TABLET.ER PO SCH (09:29)
[2019-04-16] MEDS: FAMOTIDINE 20 MG TABLET PO SCH (09:30)
[2019-04-16] MEDS: ASPIRIN 81 MG TABLET, ENT COATED PO SCH (09:30)
[2019-04-16] MEDS: APIXABAN 2.5 MG TABLET PO SCH (09:30)
[2019-04-16] MEDS: PAROXETINE HCL 20 MG TABLET PO SCH (09:30)
[2019-04-16] MEDS: RIFAMPIN 300 MG CAPSULE PO SCH (09:30)
[2019-04-16] MEDS: SACUBITRIL/VALSARTAN 24 MG/26 MG TABLET PO SCH (09:30)
[2019-04-16] MEDS: METOPROLOL SUCCINATE 25 MG TAB.SR.24H PO SCH (09:30)
[2019-04-16] MEDS: BUSPIRONE HCL 10 MG TABLET PO SCH (09:30)
[2019-04-16] MEDS: OXYCODONE-ACETAMINOPHEN 5-325 MG TABLET PO PRN (09:36)
--- NOTE | 2019-04-16 09:36 | RADIOLOGY REPORT (SQ) ---
EXAM DESCRIPTION: CHEST 2 VIEWS COMPLETED DATE/TIME: 04/16/2019 8:53 am REASON FOR STUDY: CHF /Pneumonia COMPARISON: PA and lateral views of the chest from 04/12/2019. EXAM PARAMETERS: NUMBER OF VIEWS: Two views. TECHNIQUE: PA and lateral views of the chest were obtained.. RADIATION DOSE: NA LIMITATIONS: none FINDINGS: LUNGS AND PLEURA: Unchanged radiographic appearance of the lungs and pleura. MEDIASTINUM AND HILAR STRUCTURES: Stable mediastinal and hilar contours. HEART AND VASCULAR STRUCTURES: Stable enlarged cardiac silhouette. BONES: No acute findings. HARDWARE: Status post median sternotomy. The tip of the tunneled right IJ PICC projects within the SV C. There is an intact left subclavian vein approach ICD in place. OTHER: No other finding. IMPRESSION: Unchanged radiographic appearance of the chest. TECHNICAL DOCUMENTATION: JOB ID: [id number] [employer]- All Rights Reserved Reading location - IP/workstation name: [email or web address]
[2019-04-16] MEDS: ALPRAZOLAM 0.5 MG TABLET PO PRN (09:37)
[2019-04-16 10:27] LABS: ANION GAP 10 (5-19); BLOOD UREA NITROGEN 16 mg/dL (7-20); CALCIUM 9.4 mg/dL (8.4-10.2); CARBON DIOXIDE 30 mmol/L (22-30); CHLORIDE 101 mmol/L (98-107); GLUCOSE 128 mg/dL (75-110); POTASSIUM 4.4 mmol/L (3.6-5.0)
[2019-04-16] MEDS ORDERED: LIDOCAINE 1% INJ-PF (10 MG/ML) 30 ML SDV ONE (12:35)
--- NOTE | 2019-04-16 13:28 | PDOC DISCHARGE SUMMARY ---
Impression - Admit/DC Date/PCP Admission Date/Primary Care Provider: 04/04/19 22:05 YI FERNANDEZ, Discharge Date: 04/16/19 - Discharge Diagnosis (1) Acute on chronic respiratory failure with hypoxia Is this a current diagnosis for this admission?: Yes (2) Acute renal failure superimposed on chronic kidney disease Is this a current diagnosis for this admission?: Yes (3) Ischemic cardiomyopathy with implantable cardioverter-defibrillator (ICD) Is this a current diagnosis for this admission?: Yes (4) CAP (community acquired pneumonia) due to MRSA (methicillin resistant Staphylococcus aureus) Is this a current diagnosis for this admission?: Yes (5) MRSA bacteremia Is this a current diagnosis for this admission?: Yes (6) Anemia Is this a current diagnosis for this admission?: Yes (7) Paroxysmal atrial fibrillation Is this a current diagnosis for this admission?: Yes (8) RUBIN (obstructive sleep apnea) Is this a current diagnosis for this admission?: Yes - Assessment Summary: Lyndon was admitted for treatment of pneumonia. He was also noted to be in acute on chronic respiratory failure. Of note patient typically uses 2 to 3 L nasal cannula at home and often bumped up to 5 L nasal cannula when ambulating. Patient was started on broad-spectrum IV antibiotics. IV vancomycin and rifampin which patient was taking prior to admission for complicated MRSA bacteremia from prior hospital visits were also continued during this hospitalization. Patient did also have some pulmonary edema from her ischemic cardiomyopathy. As such she continued on diuresis with IV Lasix. Patient initially required continuous BiPAP therapy but later started tolerating off BiPAP. Given patient sleep apnea from a recent sleep study, attempts were made to qualify patient for NIPPV nocturnally however there was several administrative and insurance barriers to obtaining it. Currently, a referral has been made for Medicaid to seek approval for nocturnal BiPAP as patient did not do too well with CPAP on titration studies done by Dr. Frederick. Dr. Frederick is recommending auto BiPAP for patient. Patient has been made a follow-up appointment to see Dr. Frederick for further management of her sleep apnea. Patient has also completed several days of IV broad-spectrum antibiotics for treatment of her pneumonia and today she completed her IV vancomycin and rifampin treatment regimen for her complicated MRSA bacteremia. Her PICC line was removed this afternoon and patient was subsequently discharged in safe stable conditions. Patient's heart failure medications were titrated by her insulation foreman Dr. Ragsdale who will be following her in the office upon discharge as well. Patient has been placed on Entresto and asked to monitor blood pressures while at home and report to her pcp or Dr. Ragsdale. Patient has been set up to see Dr. Francisco for further management of her chronic kidney disease. Patient will be following up with Dr. Fernandez for continued management of her chronic pain and anxiety. Patient is to continue using her home oxygen as before. Patient has been set up for home health. - Additional Information Resuscitation Status: Do Not Resuscitate Discharge Diet: Cardiac Discharge Activity: Activity As Tolerated, Balance Activity w/Rest, Weigh Daily Referrals: ANKUR FREDERICK MD [ACTIVE STAFF] - 04/27/19 1:00 pm ANGIE CARRERO MD [ACTIVE STAFF] - 04/23/19 2:00 pm YI FERNANDEZ DO [Primary Care Provider] - 04/20/19 11:00 am Prescriptions: Apixaban [Eliquis 2.5 mg Tablet] 2.5 mg PO BID #60 tablet Sacubitril/Valsartan [Entresto 24 mg/26 mg Tablet] 1 tab PO BID 30 Days tablet Potassium Chloride [K-Tab ER] 40 meq PO DAILY 15 Days tablet.er Furosemide [Lasix 40 mg Tablet] 40 mg PO BID #60 tablet Nitroglycerin [Nitrostat 0.4 mg (1/150 Gr) Tabs 25/Bottle] 0.4 mg SL Q5MP PRN #1 bottle PRN Reason: CHEST PAIN Metoprolol Succinate [Toprol Xl 25 mg Tab.sr] 25 mg PO Q12 #60 tab.sr.24h Home Medications: Alprazolam [Xanax 0.5 mg Tablet] 0.5 mg PO Q6HP PRN 02/08/19 Aspirin [Ecotrin 81 mg EC Tablet] 81 mg PO DAILY 02/08/19 Atorvastatin Calcium [Lipitor 80 mg Tablet] 80 mg PO QHS 02/08/19 Buspirone HCl [Buspar 10 mg Tablet] 10 mg PO BID 02/08/19 Paroxetine HCl [Paxil 20 mg Tablet] 20 mg PO DAILY 02/08/19 Famotidine [Pepcid 20 mg Tablet] 20 mg PO Q12 #60 tablet 01/24/20 Isosorbide Mononitrate [Imdur 30 mg Tablet.er] 30 mg PO DAILY #30 tab.er.24h 03/23/19 Melatonin [Melatonin 5 mg Tablet] 10 mg PO QHS #30 tablet 03/23/19 Sennosides/Docusate 8.6-50 mg [Senna Plus Tablet] 1 each PO QHS #30 tablet 03/23/19 Apixaban [Eliquis 2.5 mg Tablet] 2.5 mg PO BID #60 tablet 04/16/19 Furosemide [Lasix 40 mg Tablet] 40 mg PO BID #60 tablet 04/16/19 Metoprolol Succinate [Toprol Xl 25 mg Tab.sr] 25 mg PO Q12 #60 tab.sr.24h 04/16/19 Nitroglycerin [Nitrostat 0.4 mg (1/150 Gr) Tabs 25/Bottle] 0.4 mg SL Q5MP PRN #1 bottle 04/16/19 Potassium Chloride [K-Tab ER] 40 meq PO DAILY 15 Days tablet.er 04/16/19 Sacubitril/Valsartan [Entresto 24 mg/26 mg Tablet] 1 tab PO BID 30 Days tablet 04/16/19 History of Present Illiness History of Present Illness: FRANKI DEL ROSARIO is a 48 year old female with a past medical history of coronary artery disease status post bypass graft 2006, subsequent artery stenting, congestive heart failure with an ejection fraction of 20 to 25%, AICD, COPD CKD 3, GERD, depression, morbid obesity, obstructive sleep apnea, cocaine and cannabis use. She presents with cough shortness of breath and fever. In the emergency room she is found to have uncontrolled hypertension, fever, tachypnea use of a sensory muscles to breathe, leukocytosis and infiltrate on chest x-ray. She denies chest pain nausea vomiting she receives BiPAP, empiric antibiotics and referred to the hospitalist for admission. Physical Exam Vital Signs: Temp Pulse Resp BP Pulse Ox 98.5 F 61 16 98/58 L 97 04/16/19 12:33 04/16/19 12:33 04/16/19 12:33 04/16/19 12:33 04/16/19 12:33 Intake & Output 04/15/19 04/16/19 04/17/19 06:59 06:59 06:59 Intake Total 1550 1330 Output Total 2700 2200 Balance -1150 -870 Weight 101.6 kg 101.1 kg General appearance: PRESENT: no acute distress, cooperative Respiratory exam: PRESENT: symmetrical, unlabored. ABSENT: accessory muscle use, tachypnea Musculoskeletal exam: PRESENT: ambulatory Neurological exam: PRESENT: alert, awake, oriented to person, oriented to place, oriented to time Results Laboratory Results: WBC 5.5 10^3/uL (4.0-10.5) 04/09/19 09:50 RBC 3.27 10^6/uL (3.72-5.28) L 04/09/19 09:50 Hgb 9.9 g/dL (12.0-15.5) L 04/09/19 09:50 Hct 30.2 % (36.0-47.0) L 04/09/19 09:50 MCV 92 fl (80-97) 04/09/19 09:50 MCH 30.4 pg (27.0-33.4) 04/09/19 09:50 MCHC 33.0 g/dL (32.0-36.0) 04/09/19 09:50 RDW 18.9 % (11.5-14.0) H 04/09/19 09:50 Plt Count 274 10^3/uL (150-450) 04/09/19 09:50 Lymph % (Auto) 12.5 % (13-45) L 04/08/19 05:20 [place] % (Auto) 8.2 % (3-13) 04/08/19 05:20 Eos % (Auto) 2.5 % (0-6) 04/08/19 05:20 Baso % (Auto) 0.7 % (0-2) 04/08/19 05:20 Absolute Neuts (auto) 4.1 10^3/uL (1.7-8.2) 04/08/19 05:20 Absolute Lymphs (auto) 0.7 10^3/uL (0.5-4.7) 04/08/19 05:20 Absolute Monos (auto) 0.4 10^3/uL (0.1-1.4) 04/08/19 05:20 Absolute Eos (auto) 0.1 10^3/uL (0.0-0.6) 04/08/19 05:20 Absolute Basos (auto) 0.0 10^3/uL (0.0-0.2) 04/08/19 05:20 Seg Neutrophils % 76.1 % (42-78) 04/08/19 05:20 ESR 73 mm/hr (0-20) H 04/06/19 06:19 Carbonic Acid 1.47 mmol/L (1.05-1.35) H 04/14/19 06:30 HCO3/H2CO3 Ratio 20:1 04/14/19 06:30 ABG pH 7.42 (7.35-7.45) 04/14/19 06:30 ABG pCO2 48.9 mmHg (35-45) H 04/14/19 06:30 ABG pO2 88.1 mmHg (80-100) 04/14/19 06:30 ABG HCO3 30.8 mmol/L (20-24) H 04/14/19 06:30 ABG Total CO2 32.3 mmol/L (21-25) H 04/14/19 06:30 ABG O2 Saturation 96.7 % (94-98) 04/14/19 06:30 ABG Base Excess 5.4 mmol/L 04/14/19 06:30 VBG pH 7.39 (7.30-7.42) 04/11/19 09:55 VBG pCO2 59.1 mmHg (35-63) 04/11/19 09:55 VBG HCO3 34.7 mmol/L (20-32) H 04/11/19 09:55 VBG Base Excess 8.0 mmol/L 04/11/19 09:55 FiO2 35% 04/14/19 06:30 Sodium 141.2 mmol/L (137-145) 04/16/19 09:47 Potassium 4.4 mmol/L (3.6-5.0) 04/16/19 09:47 Chloride 101 mmol/L (98-107) 04/16/19 09:47 Carbon Dioxide 30 mmol/L (22-30) 04/16/19 09:47 Anion Gap 10 (5-19) 04/16/19 09:47 BUN 16 mg/dL (7-20) 04/16/19 09:47 Creatinine 1.62 mg/dL (0.52-1.25) H 04/16/19 09:47 Est GFR ( Amer) 41 (>60) L 04/16/19 09:47 Est GFR (MDRD) Non-Af 34 (>60) L 04/16/19 09:47 Glucose 128 mg/dL (75-110) H 04/16/19 09:47 Lactic Acid 1.4 mmol/L (0.7-2.1) 04/04/19 19:46 Calcium 9.4 mg/dL (8.4-10.2) 04/16/19 09:47 Phosphorus 6.0 mg/dL (2.5-4.5) H 04/16/19 09:47 Magnesium 1.9 mg/dL (1.6-2.3) 04/16/19 09:47 Total Bilirubin 1.5 mg/dL (0.2-1.3) H 04/08/19 05:20 Direct Bilirubin 0.6 mg/dL (0.0-0.4) H 04/08/19 05:20 Neonat Total Bilirubin Not Reportable 04/08/19 05:20 Neonat Direct Bilirubin Not Reportable 04/08/19 05:20 Neonat Indirect Bili Not Reportable 04/08/19 05:20 AST 91 U/L (14-36) H 04/08/19 05:20 ALT 223 U/L (<35) 04/08/19 05:20 Alkaline Phosphatase 133 U/L (38-126) H 04/08/19 05:20 Creatine Kinase 30 U/L (30-135) 04/04/19 17:15 CK-MB (CK-2) 0.91 ng/mL (<4.55) 04/04/19 17:15 Troponin I 0.117 ng/mL 04/05/19 07:33 NT-Pro-B Natriuret Pep 50196 pg/mL (<125) H 04/04/19 17:15 Total Protein 5.9 g/dL (6.3-8.2) L 04/08/19 05:20 Albumin 2.9 g/dL (3.5-5.0) L 04/08/19 05:20 Prealbumin 18.6 mg/dL (17.6-36.0) 04/06/19 06:19 Urine Color STRAW 04/04/19 17:15 Urine Appearance SLIGHTLY-CLOUDY 04/04/19 17:15 Urine pH 6.0 (5.0-9.0) 04/04/19 17:15 Ur Specific Orange 1.006 04/04/19 17:15 Urine Protein NEGATIVE mg/dL (NEGATIVE) 04/04/19 17:15 Urine Glucose (UA) NEGATIVE mg/dL (NEGATIVE) 04/04/19 17:15 Urine Ketones NEGATIVE mg/dL (NEGATIVE) 04/04/19 17:15 Urine Blood SMALL (NEGATIVE) H 04/04/19 17:15 Urine Nitrite NEGATIVE (NEGATIVE) 04/04/19 17:15 Urine Bilirubin NEGATIVE (NEGATIVE) 04/04/19 17:15 Urine Urobilinogen NEGATIVE mg/dL (<2.0) 04/04/19 17:15 Ur Leukocyte Esterase LARGE (NEGATIVE) H 04/04/19 17:15 Urine WBC (Auto) 50 /HPF 04/04/19 17:15 Urine RBC (Auto) 7 /HPF 04/04/19 17:15 Urine Bacteria (Auto) TRACE /HPF 04/04/19 17:15 Urine Mucus (Auto) RARE /LPF 04/04/19 17:15 Urine Ascorbic Acid NEGATIVE (NEGATIVE) 04/04/19 17:15 Time Trough Drawn 1718 04/12/19 17:18 Vancomycin Trough 14.8 ug/mL (5.0-20.0) 04/12/19 17:18 Blood Type B POSITIVE 04/05/19 11:10 Antibody Screen NEGATIVE 04/05/19 11:10 Crossmatch See Detail 04/05/19 11:10 04/04/19 04/04/19 04/05/19 17:15 20:26 07:33 CK-MB (CK-2) 0.91 Troponin I 0.154 0.216 0.117 NT-Pro-B Natriuret Pep 41487 H Impressions: Chest X-Ray 04/04/19 16:38 IMPRESSION: INTERVAL WORSENING OF BILATERAL AIRSPACE DISEASE, PARTICULARLY IN THE RIGHT LUNG. Chest X-Ray 04/08/19 06:00 IMPRESSION: CHF. No significant change. Chest X-Ray 04/12/19 06:00 IMPRESSION: CARDIAC ENLARGEMENT. VASCULAR CONGESTION. Chest X-Ray 04/16/19 06:00 IMPRESSION: Unchanged radiographic appearance of the chest. Plan Plan of Treatment: Dr. Francisco office will call the patient to make the appointment. Time Spent: Greater than 30 Minutes Stroke Is this a Stroke Patient?: No Acute Heart Failure - Is this a Heart Failure Patient?: Yes Documentation of LVEF assessment?: Yes LVEF < 40%?: Yes-if yes answer questions a through e a) Discharged on ACEI?: N/A Discharged on ARNI b) Discharges on ARB?: N/A-Discharged on ARNI c) Discharged on ARNI?: Yes d) Discharged on evidence-based Beta rip(carvedilol, sustained release metoprolol succinate, or bisoprolol)?: Yes e) For LVEF <35%, discharged on Aldosterone antagonist?: No-document contraincations Reason(s) not discharged on Aldosterone antagonist for LVEF < 35%: Renal dysfunction (creatinine >2.5 mg/dL in men or 2.0 mg/dL in women) 3. Anticoagulant therapy for permanect/persistent/paraoxysmal Afib or Aflutter: Yes Follow-up Appointment scheduled within 7 days?: Yes
[2019-04-16] MEDS: FLUTICASONE NASAL SPRAY 50 MCG/SPRY 120 SPRAY/16 GM NASL SCH (13:53)
[2019-04-16 13:56] VITALS: BP 113/71
[2019-04-16] MEDS: ISOSORBIDE MONONITRATE 30 MG TAB.ER.24H PO SCH (15:08)
--- NOTE | 2019-04-16 16:14 | Progress Note ---
Provider Note Provider Note: CARDIOLOGY PROGRESS NOTE by Dr. Griselda Martin on 04/16/2019 SUBJECTIVE: The patient denies any chest pain or discomfort. There is no shortness of breath. The patient today denies any PND orthopnea. There is no leg edema. There is no atrial fibrillation or flutter recurrence. There is no ventricle arrhythmia seen. There is no firing of the AICD. The patient is being discharged home today after her last dose of antibiotics. PHYSICAL EXAMINATION: The patient is moderate to severely obese. In no acute distress Selected Entries 04/16/19 04/16/19 07:32 08:03 Temperature 97.4 F Temperature Axillary Source Pulse Rate 60 Respiratory 20 18 Rate Blood Pressure 90/44 L Blood Pressure 59 Mean BP Location Right Arm BP Position Supine O2 Sat by Pulse 100 Oximetry Fraction of 35 Inspired Oxygen (FIO2) Oxygen Delivery Bipap Method HEAD: Is atraumatic normocephalic. EYES: Pupils are equal round regular reactive to light. HEENT is negative. SKIN: There is no skin rashes or skin lesions. There is no particular ecchymosis. NECK: Is supple. There is mild JVD present. Carotids are equal there is no bruits. There is no lymphadenopathy. There is no goiter. There is no accessory muscle respiration use. Trachea central. LUNGS: At present the lungs are fairly clear to auscultation, without any rhonchi or wheezing. There is dry crackles in the right lower lobe and right middle lobe. There is egophony in the right middle lobe. There is diminished air entry. On percussion there is hyperresonance. On palpation there is no chest wall tenderness. HEART: S1-S2 is heard. There is no S3 gallop. There is no S4 gallop. There is systolic murmur mitral regurgitation tricuspid regurgitation present. There is no aortic stenosis murmur. There is no aortic insufficiency murmur. There is no rub. ABDOMEN: Is obese. Nontender. There is no hepatosplenomegaly. Bowel sounds are well heard. There is no rebound guarding or rigidity. EXTREMITIES: Femorals are deep. Femorals are diminished. There is no femoral bruits. There is decreased leg pulses. There is mild pedal edema. radiological health specialist the patient is conscious awake alert oriented x3 with no focal deficits. PSYCHIATRIC: The patient judgment insight are intact. She does not appear to be agitated or anxious. IMPRESSION/RECOMMENDATION: 1. Acute on chronic respiratory failure. This is multifactorial secondary to the patient's acute on chronic systolic heart failure, sleep apnea and acute exacerbation of COPD and pneumonia. We will recheck the chest x-ray in the a.m. 2. Elevated troponin I most likely secondary to supply demand mismatch. No evidence of non-ST elevation NE. Hence we will treat the underlying cause and not treat this as a non-ST elevation NE. 3. Acute on chronic systolic heart failure. Patient with LV ejection fraction of 25%. Continue beta-blockers and restart Entresto. Continue diuretics. But will change to IV Lasix. Watch the patient BUN/creatinine closely. 4. Acute exacerbation COPD: Continue bronchodilators. Improving. 5. MRSA pneumonia: Continue antibiotics. There is egophony suggestive of consolidation in the right middle lobe. We will recheck the patient's chest x- ray in the a.m. 6. History of amiodarone toxicity. Would recommend avoiding amiodarone 7. Acute on chronic kidney disease: Watch renal function as we implement aggressive diuresis. 8. Cardiomyopathy with severely reduced LV ejection fraction. Her medications adjusted. Her beta-rip has been decreased to Toprol 25 mg XL once daily since she is taking by mouth. Entresto has been decreased to 49/51.. Will decrease the patient's isosorbide mononitrate from 60 mg to 30 mg p.o. daily. 9. Paroxysmal atrial fibrillation: Continue beta-rip. The patient Eliquis had to be stopped due to patient's anemia and also prior occult positive bloo blood in the stools. The patient later will be restarted on Eliquis. 10. History of ventricular tachycardia, The patient has an AICD placed. If there is recurrence of ventricular tachycardia or major ventricular ectopic activity then would start the patient on small dose of sotalol. Would avoid amiodarone. 11. Hypertension: Blood pressure well controlled, on current medications. 12. Coronary artery disease: History of NE and history of coronary bypass graft surgery. No evidence of acute coronary syndrome/non-ST ST elevation NE this admission. 13. Obstructive sleep apnea. Note patient has been noncompliant with CPAP. Most likely has significant pulmonary hypertension. 14. AICD placement: Note the patient's basal rate is around 60 bpm. If the patient's heart failure continues then would recommend increasing the basal heart rate to 80 bpm to help combat the heart failure along with diuretics. 15. MRSA bacteremia: Continue antibiotics. Repeat blood cultures are far n egative for growth of MRSA. Discussed with the hospitalist. The patient had rhabdomyolysis with rifamycin. Hence patient was switched to vancomycin. She will get her last dose of antibiotics today. Medications reviewed. Medications adjusted and also medications started. Medical regimen and management plan discussed with attending physician. The patient is on multiple medications and has multiple comorbidities. Hence medical decision making is of moderate complexity. 40 minutes spent on this patient with more than 50% time spent in direct patient care. Will sign off. Will follow the patient in the office since he is the patient will regularly follows up with the office with me. We will see the patient in the next week or 10 days. The patient has my cell phone number to call me if she has any problems in the interim.
--- NOTE | 2019-04-16 16:52 | RADIOLOGY REPORT (SQ) ---
EXAM DESCRIPTION: REMOVAL CENTRAL TUNNELED LINE COMPLETED DATE/TIME: 04/16/2019 1:13 pm REASON FOR STUDY: CV ACCESS REMOVE COMPARISON: None. NUMBER OF VIEWS: None. TECHNIQUE: The procedure, risks, benefits, and alternatives were discussed with the patient in the p reprocedural area, and all questions were answered. Informed consent was obtained verbally and in wri ting. The patient was then brought to the procedural suite, positioned supine on a gurney, and a time-out w as performed. The right upper chest and the external portion of the tunneled small bore catheter wer e subsequently prepped and draped with 2% chlorhexidine. After that, the subcutaneous tissues around the catheter were infiltrated with 5 mL of 1% lidocaine and the sutures anchoring the catheter in pl laurie were cut. The catheter was then removed intact without complication while maintaining direct man ual pressure over the right internal jugular vein until hemostasis was obtained. Afterwards a steril e dressing was applied over the entrance to the subcutaneous tunnel. At the end of the procedure the patient's condition was unchanged from the preprocedural baseline. The patient tolerated the procedure well with local anesthesia. Documentation of [id number] time performing proceduralist spent monitoring the patient: 10 minutes. LIMITATIONS: None. FINDINGS: Integrated into the Technique. IMPRESSION: Successful removal of a tunneled non-cuffed small bore central venous catheter. TECHNICAL DOCUMENTATION: JOB ID: [id number] 2010 [employer]- All Rights Reserved Reading location - IP/workstation name: [email or web address]
== END 2019-04-16 17:00 | disposition home health service (06) | DRG 177 ==
LOC: ER 16:18 → EH 22:05 → 3W 04-05 15:18
PROVIDERS: ADMIT Internal Medicine; ATTEND Internal Medicine
PROC: 5A09557 Assistance with Respiratory Ventilation, Greater than 96 Consecutive Hours, Continuous Positive Airway Pressure (ICD-10-PCS; 2019-04-04)
PROC: 30233N1 Transfusion of Nonautologous Red Blood Cells into Peripheral Vein, Percutaneous Approach (ICD-10-PCS; principal; 2019-04-05)
DX: J15.212 Pneumonia due to Methicillin resistant Staphylococcus aureus (principal); J96.21 Acute and chronic respiratory failure with hypoxia; I50.23 Acute on chronic systolic (congestive) heart failure; I13.0 Hypertensive heart and chronic kidney disease with heart failure and stage 1 through stage 4 chronic kidney disease, or unspecified chronic kidney disease; N17.9 Acute kidney failure, unspecified; J44.0 Chronic obstructive pulmonary disease with (acute) lower respiratory infection; Z68.41 Body mass index [BMI] 40.0-44.9, adult; R78.81 Bacteremia; N18.3 Chronic kidney disease, stage 3 (moderate); E66.01 Morbid (severe) obesity due to excess calories; K21.9 Gastro-esophageal reflux disease without esophagitis; J44.9 Chronic obstructive pulmonary disease, unspecified; F32.9 Major depressive disorder, single episode, unspecified; F14.10 Cocaine abuse, uncomplicated; F12.10 Cannabis abuse, uncomplicated; D63.1 Anemia in chronic kidney disease; I25.5 Ischemic cardiomyopathy; I48.0 Paroxysmal atrial fibrillation; G47.33 Obstructive sleep apnea (adult) (pediatric); F17.290 Nicotine dependence, other tobacco product, uncomplicated; Z95.810 Presence of automatic (implantable) cardiac defibrillator; Z66 Do not resuscitate; Z99.81 Dependence on supplemental oxygen; Z79.01 Long term (current) use of anticoagulants; Z79.82 Long term (current) use of aspirin; Z79.899 Other long term (current) drug therapy; I25.10 Atherosclerotic heart disease of native coronary artery without angina pectoris; Z95.1 Presence of aortocoronary bypass graft; I25.2 Old myocardial infarction; B95.62 Methicillin resistant Staphylococcus aureus infection as the cause of diseases classified elsewhere; Z87.01 Personal history of pneumonia (recurrent); Z82.49 Family history of ischemic heart disease and other diseases of the circulatory system; Z83.3 Family history of diabetes mellitus; Z82.3 Family history of stroke
CPT/HCPCS: 36415; 36430; 36589; 36600; 51702; 71045; 71046; 80048; 80053; 80202; 81001; 82550; 82553; 82803; 83605; 83735; 83880; 84100; 84134; 84484; 85025; 85027; 85652; 86850; 86900; 86901; 86920; 87040; 87086; 93005; 93010; 94660; 94799; 96365; 96366; 96367; 96375; 99291; J0692; J0696; J1642; J1940; J2270; J2405; J2543; J2550; J3370; J3480; J3490; J7040; J7050; J7060; P9016

== ENCOUNTER 2019-04-23 02:01 | Inpatient (IN) | payer MEDICAID ==
--- NOTE | 2019-04-23 02:22 | ER Document Report ---
ED Respiratory Problem - General Chief Complaint: Breathing Difficulty Stated Complaint: DIFFICULTY BREATHING,CHEST PAIN Time Seen by Provider: 04/23/19 02:16 Primary Care Provider: YI FERNANDEZ DO [Primary Care Provider] - Follow up as needed Notes: Patient is a 48-year-old female that comes to the emergency department for chief complaint of difficulty breathing. She states that she has had worsening difficulty breathing for most 3 days now, she states tonight became severe and she called EMS. She states she has had some chills and felt feverish as well. She also had a mild nosebleed and coughed up some blood. She also states that she has had some nausea, upper abdominal pain, and has vomited 3 times over the past 2 days. EMS states that she was wheezing along with her respiratory distress, she was placed on CPAP in route, given a DuoNeb and Solu-Medrol IV. Patient states that she is normally on 2 L nasal cannula at home for chronic respiratory failure but has had to use 4 L for the past 2 days because she felt like she could not catch her breath. Patient also has a history of COPD, CHF, AICD, chronic kidney disease, coronary artery disease status post CABG in 2006, RUBIN. Patient has been intubated in the past for respiratory distress. Patient reports her primary care is Dr. Fernandez and her computer systems consultant is Dr. Ragsdale. Patient had been hospitalized for pneumonia within the past months. TRAVEL OUTSIDE OF THE [place] IN LAST 30 DAYS: No - Related Data Allergies/Adverse Reactions: egg [Egg] Allergy (Verified 10/04/18 00:18) hydrocodone [From Vicodin] Allergy (Verified 04/07/19 08:53) propoxyphene [From Darvocet-N] Allergy (Verified 10/04/18 00:18) amiodarone Adverse Reaction (Verified 10/04/18 00:18) Respiratory distress diphenhydramine HCl [From Benadryl] Adverse Reaction (Verified 10/04/18 00:18) chest pain, bigemeny rhythm Past Medical History - General Information source: Patient - Social History Smoking Status: Former Smoker Frequency of alcohol use: None Drug Abuse: None Lives with: Alone Family History: CAD, CVA, DM, Hypertension, Malignancy, Other - Kidney disease - Past Medical History Cardiac Medical History: Reports: Hx Atrial Fibrillation, Hx Congestive Heart Failure, Hx Coronary Artery Disease, Hx Heart Attack, Hx Hypercholesterolemia, Hx Hypertension Denies: Hx DVT, Hx Pulmonary Embolism Pulmonary Medical History: Reports: Hx Bronchitis, Hx COPD, Hx Pneumonia, Hx Intubation, Hx Respiratory Failure, Hx Sleep Apnea Denies: Hx Asthma Neurological Medical History: Denies: Hx Cerebrovascular Accident, Hx Seizures Endocrine Medical History: Denies: Hx Diabetes Mellitus Type 1, Hx Diabetes Mellitus Type 2, Hx Hyperthyroidism, Hx Hypothyroidism Renal/ Medical History: Reports: Hx Kidney Stones, Hx Renal Insufficiency. Denies: Hx Peritoneal Dialysis GI Medical History: Reports: Hx Gastroesophageal Reflux Disease. Denies: Hx Cirrhosis, Hx Crohn's Disease, Hx Hepatitis, Hx Hiatal Hernia, Hx Ulcer, Hx Ulcerative Colitis Musculoskeletal Medical History: Denies Hx Arthritis, Denies Hx Gout Skin Medical History: Denies Hx Eczema, Denies Hx Psoriasis Psychiatric Medical History: Reports: Hx Anxiety, Hx Depression, Hx Schizophrenia Infectious Medical History: Reports: Hx MRSA - And sputum on last admission.. Denies: Hx Hepatitis Past Surgical History: Reports: Hx Cardiac Catheterization - multiple, Hx Cardiac Surgery - pacemaker/icd, Hx Section, Hx Coronary Artery Bypass Graft - 2006, Hx Coronary Stent - Multiple, Hx Hysterectomy, Hx Open Heart Surgery - BYPASS 2006, Hx Pacemaker - AICD, Hx Tubal Ligation. Denies: Hx Mastectomy - Immunizations Hx Diphtheria, Pertussis, Tetanus Vaccination: Yes Hx Pneumococcal Vaccination: 04/04/12 Review of Systems - Review of Systems Constitutional: No symptoms reported EENT: No symptoms reported Cardiovascular: See HPI Respiratory: See HPI Gastrointestinal: See HPI Genitourinary: No symptoms reported Female Genitourinary: No symptoms reported Musculoskeletal: No symptoms reported Skin: No symptoms reported Hematologic/Lymphatic: No symptoms reported Neurological/Psychological: No symptoms reported Physical Exam - Vital signs Vitals: Resp 26 H 04/23/19 02:03 - Notes Notes: GENERAL: Slightly anxious HEAD: Normocephalic, atraumatic. EYES: Pupils equal, round, and reactive to light. Extraocular movements intact. ENT: Oral mucosa moist, tongue midline. Oropharynx unremarkable. Airway patent. Nares patent, no nasal septal hematoma, TM's intact. NECK: Full range of motion. Supple. Trachea midline. LUNGS: Scattered expiratory wheezes, scattered coarse breath sounds, labored breathing with tachypnea HEART: Regular rate and rhythm. ABDOMEN: Some generalized tenderness of the mid upper abdomen, nonspecific, lower abdomen is benign. EXTREMITIES: Moves all 4 extremities spontaneously. No edema, normal radial and dorsalis pedis pulses bilaterally. No cyanosis. BACK: no cervical, thoracic, lumbar midline tenderness. No saddle anesthesia, normal distal neurovascular exam. Moves all extremities in full range of motion. NEUROLOGICAL: Alert and oriented x3. Normal speech. Cranial nerves II through XII grossly intact. PSYCH: Slightly anxious SKIN: Warm, dry, normal turgor. No rashes or lesions noted. Course - Re-evaluation Re-evalutation: Patient was transitioned from CPAP to BiPAP immediately. Patient with very labored breathing, breathing with respirations in the 30s, retracting, and obvious respiratory distress. However on BiPAP the respiratory distress quickly resolved. She is not hypoxic. Blood gas is nonspecific but patient was already on CPAP. CBC without particular change from prior. Chemistry appears to be at baseline with her creatinine. BNP is very elevated but not significantly changed from prior. Troponin is indeterminate. I reevaluated patient. We attempted to take her off of BiPAP but after taking her off for a very brief amount of time she almost immediately desaturated into the low 80s despite nasal cannula. She also started having notable tachypnea. Chest x-ray with abnormal appearance with especially on the right, could be chronic, x-ray read is suggesting possible underlying mass. Because of mell ent's abdominal pain, vomiting, and nonspecific chest x-ray I discussed with Dr. Pitts and decision was made to perform CTA to rule out blood clot as a cause of her hypoxia along with ruling out acute processes otherwise. Patient is very agreeable with this. She was medicated and now has no complaints. CT showing most likely vascular congestion, possible component of pulmonary hypertension, unremarkable abdomen. No clot. Because of patient's requirement of BiPAP, hypoxia, I suspect she has accommodation of COPD exacerbation and CHF exacerbation, she will require hospitalization. Patient is stating agreement with this plan. I discussed with Dr. Ford, patient will be accepted to full admission IMCU. - Vital Signs Vital signs: Temp Pulse Resp BP Pulse Ox 98.9 F 22 H 146/101 H 98 04/23/19 03:11 04/23/19 07:01 04/23/19 07:01 04/23/19 07:01 - Laboratory Result Diagrams: 04/23/19 02:36 04/23/19 02:36 Laboratory results interpreted by me: 04/23/19 04/23/19 04/23/19 02:25 02:36 02:36 RBC 3.46 L Hgb 10.3 L Hct 31.0 L RDW 16.9 H Seg Neutrophils % 79.8 H Carbonic Acid 0.95 L ABG pCO2 31.7 L ABG HCO3 19.6 L ABG Total CO2 20.6 L Creatinine 1.65 H Est GFR ( Amer) 40 L Est GFR (MDRD) Non-Af 33 L Glucose 124 H Total Bilirubin 1.6 H Direct Bilirubin 0.6 H NT-Pro-B Natriuret Pep 04/23/19 02:36 RBC Hgb Hct RDW Seg Neutrophils % Carbonic Acid ABG pCO2 ABG HCO3 ABG Total CO2 Creatinine Est GFR ( Amer) Est GFR (MDRD) Non-Af Glucose Total Bilirubin Direct Bilirubin NT-Pro-B Natriuret Pep 43191 H - EKG Interpretation by Me Additional EKG results interpreted by me: EKG shows atrial sensed ventricular paced rhythm at a rate of 83, there are inve rted T waves in leads I and aVL, no ST segment changes, no significant change from prior. Discharge - Discharge Clinical Impression: Hypoxia, COPD exacerbation, Respiratory distress Acute and chronic respiratory failure Qualifiers: Respiratory failure complication: hypoxia Qualified Code(s): J96.21 - Acute and chronic respiratory failure with hypoxia Condition: Stable Disposition: ADMITTED INPATIENT Admitting Provider: Liliana (Hospitalist) Unit Admitted: IMCU Referrals: YI FERNANDEZ DO [Primary Care Provider] - Follow up as needed
[2019-04-23 02:54] LABS: ABSOLUTE BASOPHILS # (AUTO) 0.1 10^3/uL (0.0-0.2); ABSOLUTE LYMPHOCYTES (AUTO) 1.1 10^3/uL (0.5-4.7); ABSOLUTE MONOCYTES (AUTO) 0.5 10^3/uL (0.1-1.4); ABSOLUTE NEUT (AUTO) 6.9 10^3/uL (1.7-8.2); BASOPHILS % (AUTO) 1.1 % (0-2); EOSINOPHILS % (AUTO) 0.3 % (0-6); HEMOGLOBIN 10.3 g/dL (12.0-15.5); LYMPHOCYTES % (AUTO) 13.2 % (13-45); MEAN CORPUSCULAR HEMOGLOBIN 29.7 pg (27.0-33.4); MEAN CORPUSCULAR HGB CONC 33.2 g/dL (32.0-36.0); MEAN CORPUSCULAR VOLUME 90 fl (80-97); MONOCYTES % (AUTO) 5.6 % (3-13); PLATELET COUNT 367 10^3/uL (150-450); RED BLOOD COUNT 3.46 10^6/uL (3.72-5.28); RED CELL DISTRIBUTION WIDTH 16.9 % (11.5-14.0); SEGMENTED NEUTROPHILS % (AUTO) 79.8 % (42-78); TOTAL CELLS COUNTED % (AUTO) 100 %; WHITE BLOOD COUNT 8.6 10^3/uL (4.0-10.5)
[2019-04-23 02:59] LABS: ARTERIAL BLOOD BASE EXCESS -4.2 mmol/L; ARTERIAL BLOOD H2CO3 0.95 mmol/L (1.05-1.35); ARTERIAL BLOOD HCO3 19.6 mmol/L (20-24); ARTERIAL BLOOD O2 SATURATION 96.3 % (94-98); ARTERIAL BLOOD PCO2 31.7 mmHg (35-45); ARTERIAL BLOOD PH 7.41 (7.35-7.45); ARTERIAL BLOOD TOTAL CO2 20.6 mmol/L (21-25)
[2019-04-23 03:05] LABS: ARTERIAL BLOOD FIO2 30%
--- NOTE | 2019-04-23 03:10 | RADIOLOGY REPORT (SQ) ---
AP Portable chest: 04/23/2019 2:07 AM TABLE SETTER History: 48-year old patient with dyspnea. Comparison: Chest radiograph performed 04/16/2019. Findings: The cardiomediastinal silhouette is enlarged. No pneumothorax is seen. There are unchanged bibasilar airspace opacities, right greater than left. Midline sternotomy changes are seen. No acute airspace opacities are seen. A dual-lead left-sided pacemaker/AICD is seen. Impression: Or chronic airspace opacities at the right lung base. Interval follow-up is recommended to exclude an underlying mass.
[2019-04-23 03:14] LABS: ALBUMIN 4.1 g/dL (3.5-5.0); ALKALINE PHOSPHATASE 114 U/L (38-126); ANION GAP 12 (5-19); ASPARTATE AMINO TRANSFERASE 31 U/L (14-36); BILIRUBIN,DIRECT 0.6 mg/dL (0.0-0.4); BILIRUBIN,TOTAL 1.6 mg/dL (0.2-1.3); BLOOD UREA NITROGEN 11 mg/dL (7-20); CALCIUM 9.5 mg/dL (8.4-10.2); CARBON DIOXIDE 22 mmol/L (22-30); CHLORIDE 107 mmol/L (98-107); GLUCOSE 124 mg/dL (75-110); POTASSIUM 4.3 mmol/L (3.6-5.0); TOTAL PROTEIN 7.4 g/dL (6.3-8.2)
[2019-04-23] MEDS ORDERED: ONDANSETRON HCL INJ/PF 4 MG/2 ML SDV IV ONE (03:16)
[2019-04-23 03:40] LABS: TROPONIN I 0.058 ng/mL
[2019-04-23 04:14] LABS: A TYPE INFLUENZA AG NEGATIVE (NEGATIVE); B INFLUENZA AG NEGATIVE (NEGATIVE)
[2019-04-23] MEDS ORDERED: MORPHINE SULFATE 10 MG/ML INJ IV ONE (04:45)
--- NOTE | 2019-04-23 06:15 | RADIOLOGY REPORT (SQ) ---
CTA CHEST, ABDOMEN, AND PELVIS WITH INTRAVENOUS CONTRAST: 04/23/2019 5:09 AM ABORIGINAL CEREMONIAL CELEBRANT HISTORY: 48-year old with hypoxia and dyspnea. COMPARISON: None available TECHNIQUE: Axial contiguous images were obtained from the thoracic inlet through the proximal femurs with intravenous contrast administered utilizing a CTA protocol. MIP reconstructed sagittal and coronal images were also obtained. This exam was performed according to our departmental dose-optimization program, which includes automated exposure control, adjustment of the mA and/or KV according to the patient's size and/or use of iterative reconstruction technique. FINDINGS: The heart size is enlarged. Pacemaker leads are seen. No significant mediastinal, supraclavicular, or axillary lymphadenopathy is seen. The thoracic aorta is within normal limits in size. No gross focal filling defect is seen within the pulmonary arteries, though the distal segmental pulmonary arteries are secured by artifact and respiratory motion. The main pulmonary artery is enlarged and measures at least 3.8 cm in transverse dimension. There are diffuse bilateral consolidative airspace opacities. Groundglass airspace opacities are also seen at the apices. There are mosaic groundglass changes. These findings can be seen with edema or atypical infection. There is no evidence of pleural effusions or a pneumothorax. The visualized hepatic parenchyma is unremarkable. No focal enhancing lesion is seen. Cholelithiasis is seen. The spleen, pancreas, and adrenals are normal in size and contour. The kidneys demonstrate no evidence of hydronephrosis. Bladder is minimally distended, but grossly appears unremarkable. The uterus appears to be surgically absent. The stomach is not well distended. The small bowel loops appear unremarkable. No pericolonic inflammatory stranding is seen. There is no evidence of pneumoperitoneum or free fluid. The aorta and IVC appear normal in size. There is mild atherosclerotic calcification of the abdominal aorta. There is a normal three-vessel origination from the aortic arch. The aorta is within normal limits for size without evidence of a dissection. The celiac and superior mesenteric arteries are widely patent. The bilateral renal arteries are also patent. The iliac through common femoral arteries appear patent. No significantly enlarged lymph nodes are seen in the abdomen or pelvis. Review of the bone show no evidence of any suspicious lytic or blastic lesions. Multilevel degenerative changes are seen within the lumbar spine. IMPRESSION: No focal filling defect is seen to suggest a pulmonary embolism. There are groundglass mosaic changes which may reflect evidence of air trapping or distal small vessel or small airway disease. There are consolidative airspace opacities which may reflect superimposed infection. A chronic interstitial process is not fully excluded. The cardiac silhouette is enlarged. There is also evidence of pulmonary artery hypertension. No acute abdominal process is seen.
[2019-04-23] MEDS ORDERED: FUROSEMIDE INJ/PF 40 MG/4 ML SDV IV ONE (06:35)
--- NOTE | 2019-04-23 08:25 | EKG REPORT ---
SEVERITY:- ABNORMAL ECG - ATRIAL-SENSED VENTRICULAR-PACED RHYTHM : Confirmed by: Verna Frederick 23-Apr-2019 08:24:54
[2019-04-23] MEDS ORDERED: MAG HYDROX/AL HYDROX/SIMETH SUSP 30 ML UDCUP PO PRN (08:28)
[2019-04-23] MEDS ORDERED: ONDANSETRON HCL INJ/PF 4 MG/2 ML SDV IV PRN (08:28)
[2019-04-23] MEDS ORDERED: MAGNESIUM HYDROXIDE SUSP 30 ML UDCUP PO PRN (08:28)
[2019-04-23] MEDS ORDERED: NITROGLYCERIN 0.4 MG/TAB 25 TAB/BOTTLE SL PRN (08:37)
--- NOTE | 2019-04-23 09:03 | PDOC H&P ---
History of Present Illness Admission Date/PCP: 04/23/19 07:58 Patient complains of: Shortness of breath History of Present Illness: FRANKI DEL ROSARIO is a 48 year old female well-known to the hospitalist service. She states that 2 days ago she began to have subacute onset of shortness of breath. She noted that her legs are more swollen. She denies fever or chills. She denies dietary indiscretion. She states that she has been consistent with her medications. She does have multiple admissions for her heart failure. Her last echocardiogram revealed an ejection fraction in the 20 to 25% range. She will be admitted to [facility] on the hospitalist service. Dr. Martin will be consulting. Will monitor on telemetry as well as monitoring her intake and out put. We will increase her diuretics as well. The chest CT scan could not distinguish between failure or pneumonia. She may require antibiotic therapy as well. Past Medical History Cardiac Medical History: Reports: Atrial Fibrillation, Congestive Heart Failure, Coronary Artery Disease, Myocardial Infarction, Hyperlipidema, Hypertension Denies: DVT, Pulmonary Embolism Pulmonary Medical History: Reports: Bronchitis, Chronic Obstructive Pulmonary Disease (COPD), Intubation, Pneumonia, Respiratory Failure, Sleep Apnea Denies: Asthma Neurological Medical History: Denies: Seizures Endocrine Medical History: Denies: Diabetes Mellitus Type 1, Diabetes Mellitus Type 2, Hyperthyroidism, Hypothyroidism GI Medical History: Reports: Gastroesophageal Reflux Disease Denies: Cirrhosis, Crohn's Disease, Hepatitis, Hiatal Hernia, Ulcerative Colitis Musculoskeltal Medical History: Denies: Arthritis, Gout Skin Medical History: Denies: Eczema, Psoriasis Psychiatric Medical History: Reports: Depression Hematology: Reports: Anemia - Chronic, Bleeding Tendencies - "On blood thinners" Infectious Medical History: Reports: Methicillin-Resistant Staph Aureus - And sputum on last admission. Past Surgical History Past Surgical History: Reports: Cardiac Catheterization - multiple, S ection, Coronary Artery Bypass Graft - 2006, Coronary Stent - Multiple, Hysterectomy, Pacemaker - AICD, Tubal Ligation Denies: Mastectomy Social History Information Source: Patient, [facility] Records Lives with: Alone Smoking Status: Former Smoker Electronic Cigarette use?: No Frequency of Alcohol Use: Occasional Hx Recreational Drug Use: Yes Drugs: Cocaine, Marijuana Hx Prescription Drug Abuse: No - Advance Directive Resuscitation Status: Do Not Resuscitate Family History Family History: CAD, CVA, DM, Hypertension, Malignancy, Other - Kidney disease Parental Family History Reviewed: Yes Children Family History Reviewed: Yes Sibling(s) Family History Reviewed.: Yes Medication/Allergy Home Medications: Alprazolam [Xanax 0.5 mg Tablet] 0.5 mg PO Q6HP PRN 02/08/19 Aspirin [Ecotrin 81 mg EC Tablet] 81 mg PO DAILY 02/08/19 Atorvastatin Calcium [Lipitor 80 mg Tablet] 80 mg PO QHS 02/08/19 Buspirone HCl [Buspar 10 mg Tablet] 10 mg PO BID 02/08/19 Paroxetine HCl [Paxil 20 mg Tablet] 20 mg PO DAILY 02/08/19 Famotidine [Pepcid 20 mg Tablet] 20 mg PO Q12 #60 tablet 03/23/19 Isosorbide Mononitrate [Imdur 30 mg Tablet.er] 30 mg PO DAILY #30 tab.er.24h 03/23/19 Melatonin [Melatonin 5 mg Tablet] 10 mg PO QHS #30 tablet 03/23/19 Sennosides/Docusate 8.6-50 mg [Senna Plus Tablet] 1 each PO QHS #30 tablet 03/23/19 Apixaban [Eliquis 2.5 mg Tablet] 2.5 mg PO BID #60 tablet 04/16/19 Metoprolol Succinate [Toprol Xl 25 mg Tab.sr] 25 mg PO Q12 #60 tab.sr.24h 04/16/19 Nitroglycerin [Nitrostat 0.4 mg (1/150 Gr) Tabs 25/Bottle] 0.4 mg SL Q5MP PRN #1 bottle 04/16/19 Sacubitril/Valsartan [Entresto 24 mg/26 mg Tablet] 1 tab PO BID 30 Days tablet 04/16/19 Furosemide [Lasix] 20 mg PO DAILY 04/23/19 Allergies/Adverse Reactions: egg [Egg] Allergy (Verified 10/04/18 00:18) hydrocodone [From Vicodin] Allergy (Verified 04/07/19 08:53) propoxyphene [From Darvocet-N] Allergy (Verified 10/04/18 00:18) amiodarone Adverse Reaction (Verified 10/04/18 00:18) Respiratory distress diphenhydramine HCl [From Benadryl] Adverse Reaction (Verified 10/04/18 00:18) chest pain, bigemeny rhythm Review of Systems All systems: reviewed and no additional remarkable complaints except as stated Constitutional: PRESENT: as per HPI Cardiovascular: PRESENT: dyspnea on exertion, edema, palpitations Respiratory: PRESENT: dyspnea Physical Exam Vital Signs: Temp Pulse Resp BP Pulse Ox 98.9 F 18 103/88 H 100 04/23/19 03:11 04/23/19 08:01 04/23/19 08:01 04/23/19 08:01 Intake & Output 04/22/19 04/23/19 04/24/19 06:59 06:59 06:59 Weight 81.81 kg General appearance: PRESENT: cooperative, other - Patient is in bed on BiPAP. Mild to moderate distress. Head exam: PRESENT: atraumatic, normocephalic Eye exam: PRESENT: conjunctiva pale, scleral icterus Ear exam: PRESENT: normal external ear exam. ABSENT: bleeding, drainage Mouth exam: PRESENT: other - BiPAP mask in place Respiratory exam: PRESENT: rales - Bilaterally, symmetrical. ABSENT: tachypnea, wheezes Cardiovascular exam: PRESENT: RRR, +S1, +S2 GI/Abdominal exam: PRESENT: diminished bowel sounds, soft, tenderness - Nonspecific. ABSENT: distended Rectal exam: PRESENT: deferred Extremities exam: PRESENT: +1 edema Neurological exam: PRESENT: alert, awake - But tired from being up all night, oriented to person, oriented to place, oriented to time, oriented to situation, CN II-XII grossly intact Psychiatric exam: PRESENT: flat affect. ABSENT: agitated, anxious Focused psych exam: ABSENT: delusional, restlessness Skin exam: PRESENT: dry, normal color, warm. ABSENT: rash Results Laboratory Results: 04/23/19 02:36 04/23/19 02:36 04/23/19 04/23/19 04/23/19 02:25 02:36 02:36 WBC 8.6 RBC 3.46 L Hgb 10.3 L Hct 31.0 L MCV 90 MCH 29.7 MCHC 33.2 RDW 16.9 H Plt Count 367 Seg Neutrophils % 79.8 H Carbonic Acid 0.95 L HCO3/H2CO3 Ratio 20:1 ABG pH 7.41 ABG pCO2 31.7 L ABG pO2 82.0 ABG HCO3 19.6 L ABG O2 Saturation 96.3 ABG Base Excess -4.2 FiO2 30% Sodium 141.0 Potassium 4.3 Chloride 107 Carbon Dioxide 22 Anion Gap 12 BUN 11 Creatinine 1.65 H Est GFR ( Amer) 40 L Glucose 124 H Lactic Acid Calcium 9.5 Total Bilirubin 1.6 H AST 31 Alkaline Phosphatase 114 Total Protein 7.4 Albumin 4.1 Lipase 04/23/19 04/23/19 02:36 02:36 WBC RBC Hgb Hct MCV MCH MCHC RDW Plt Count Seg Neutrophils % Carbonic Acid HCO3/H2CO3 Ratio ABG pH ABG pCO2 ABG pO2 ABG HCO3 ABG O2 Saturation ABG Base Excess FiO2 Sodium Potassium Chloride Carbon Dioxide Anion Gap BUN Creatinine Est GFR ( Amer) Glucose Lactic Acid 1.6 Calcium Total Bilirubin AST Alkaline Phosphatase Total Protein Albumin Lipase 200.3 04/23/19 02:36 Troponin I 0.058 NT-Pro-B Natriuret Pep 29398 H Impressions: Abdomen/Pelvis CTA 04/23/19 04:49 IMPRESSION: No focal filling defect is seen to suggest a pulmonary embolism. There are groundglass mosaic changes which may reflect evidence of air trapping or distal small vessel or small airway disease. There are consolidative airspace opacities which may reflect superimposed infection. A chronic interstitial process is not fully excluded. The cardiac silhouette is enlarged. There is also evidence of pulmonary artery hypertension. No acute abdominal process is seen. Chest/Abdomen CTA 04/23/19 04:49 IMPRESSION: No focal filling defect is seen to suggest a pulmonary embolism. There are groundglass mosaic changes which may reflect evidence of air trapping or distal small vessel or small airway disease. There are consolidative airspace opacities which may reflect superimposed infection. A chronic interstitial process is not fully excluded. The cardiac silhouette is enlarged. There is also evidence of pulmonary artery hypertension. No acute abdominal process is seen. Assessment and Plan - Diagnosis (1) Acute on chronic respiratory failure Qualifiers: Respiratory failure complication: hypoxia Qualified Code(s): J96.21 - Acute and chronic respiratory failure with hypoxia Is this a current diagnosis for this admission?: Yes (2) Pneumonia Qualifiers: Pneumonia type: due to unspecified organism Laterality: bilateral Lung location: unspecified part of lung Qualified Code(s): J18.9 - Pneumonia, unspecified organism Is this a current diagnosis for this admission?: Yes (3) Acute on chronic systolic congestive heart failure, NYHA class 3 Is this a current diagnosis for this admission?: Yes (4) CAD (coronary artery disease) Qualifiers: Coronary Disease-Associated Artery/Lesion type: [place] artery [place] vs. transplanted heart: [place] heart Associated angina: without angina Qualified Code(s): I25.10 - Atherosclerotic heart disease of [place] coronary artery without angina pectoris Is this a current diagnosis for this admission?: Yes (5) CKD (chronic kidney disease) Qualifiers: Chronic kidney disease stage: stage 3 (moderate) Qualified Code(s): N18.3 - Chronic kidney disease, stage 3 (moderate) Is this a current diagnosis for this admission?: Yes (6) Depression Qualifiers: Depression Type: major depressive disorder Major depression recurrence: recurrent Active/Remission status: currently active Major depression episode severity: moderate Qualified Code(s): F33.1 - Major depressive disorder, recurrent, moderate Is this a current diagnosis for this admission?: Yes (7) Hyperlipidemia Qualifiers: Hyperlipidemia type: unspecified Qualified Code(s): E78.5 - Hyperlipidemia, unspecified Is this a current diagnosis for this admission?: Yes (8) Hypertension Qualifiers: Hypertension type: essential hypertension Qualified Code(s): I10 - Es sential (primary) hypertension Is this a current diagnosis for this admission?: Yes (9) Ischemic cardiomyopathy with implantable cardioverter-defibrillator (ICD) Is this a current diagnosis for this admission?: Yes - Plan Summary Summary: 04/23/2019 Patient presents with increased shortness of breath. She states it occurred over the last several days. She does not have a white count but CT scan and chest x-ray suggest pneumonia. With her compromised state I to feel pneumonia is present. She does have longstanding history of congestive heart failure which is always a problem. She will be admitted to [facility] and placed on telemetry. Acute on chronic respiratory failure-multifactorial. Continue BiPAP and wean back to chronic oxygen therapy. Pneumonia-antibiotic therapy. Acute on chronic systolic heart failure-continue current cardiac meds which include beta-blockers, KELL/RB combinations and diuretics. Dr. Martin will be seeing the patient. We briefly discussed the possibility of utilizing dobutamine. He will assess the patient and decide. Hyperlipidemia-continue statin therapy Hypertension-continue cardiac medications. Ischemic cardiomyopathy with implantable defibrillator-consider inotropic medications such as dobutamine - Time Time Spent with patient: 35 or more minutes Medications reviewed and adjusted accordingly: Yes - Inpatient Certification Based on my medical assessment, after consideration of the patient's comorbidities, presenting symptoms, or acuity I expect that the services needed warrant INPATIENT care.: Yes I certify that my determination is in accordance with my understanding of Medicare's requirements for reasonable and necessary INPATIENT services [42 CFR 412.3e].: Yes Medical Necessity: Need Close Monitoring Due to Risk of Patient Decompensation, Need For Continuous Telemetry Monitoring, Need for IV Antibiotics Post Hospital Care: D/C [employer] Driver Documentation
[2019-04-23] MEDS: PAROXETINE HCL 20 MG TABLET PO SCH (10:05)
[2019-04-23] MEDS: ISOSORBIDE MONONITRATE 30 MG TAB.ER.24H PO SCH (10:05)
[2019-04-23] MEDS: METOPROLOL SUCCINATE 25 MG TAB.SR.24H PO SCH ×2 (10:06→21:45)
[2019-04-23] MEDS: ASPIRIN 81 MG TABLET, ENT COATED PO SCH (10:06)
[2019-04-23] MEDS: FUROSEMIDE INJ/PF 40 MG/4 ML SDV IV SCH ×2 (10:06→21:44)
[2019-04-23] MEDS: BUSPIRONE HCL 10 MG TABLET PO SCH ×2 (10:06→17:17)
[2019-04-23] MEDS: FAMOTIDINE 20 MG TABLET PO SCH ×2 (10:06→21:45)
[2019-04-23] MEDS: APIXABAN 2.5 MG TABLET PO SCH ×2 (10:06→17:17)
[2019-04-23] MEDS: SACUBITRIL/VALSARTAN 24 MG/26 MG TABLET PO SCH ×2 (11:02→17:22)
[2019-04-23] MEDS: MORPHINE SULFATE 10 MG/ML INJ IV PRN ×2 (11:03→21:44)
[2019-04-23] MEDS: CEFEPIME 1 GM/D5W RTU 1 GM/50 ML RTUPB IV SCH (17:18)
[2019-04-23] MEDS: SENNOSIDES/DOCUSATE 8.6-50 MG 1 EACH TABLET PO SCH (21:44)
[2019-04-23] MEDS: MELATONIN 5 MG TABLET PO SCH (21:44)
[2019-04-23] MEDS: ATORVASTATIN CALCIUM 80 MG TABLET PO SCH (21:45)
[2019-04-23] MEDS: ALPRAZOLAM 0.5 MG TABLET PO PRN (21:45)
[2019-04-24] MEDS: MORPHINE SULFATE 10 MG/ML INJ IV PRN ×5 (03:28→20:40)
[2019-04-24 05:39] LABS: ABSOLUTE BASOPHILS # (AUTO) 0.1 10^3/uL (0.0-0.2); ABSOLUTE LYMPHOCYTES (AUTO) 1.1 10^3/uL (0.5-4.7); ABSOLUTE MONOCYTES (AUTO) 0.5 10^3/uL (0.1-1.4); ABSOLUTE NEUT (AUTO) 4.2 10^3/uL (1.7-8.2); BASOPHILS % (AUTO) 1.3 % (0-2); EOSINOPHILS % (AUTO) 0.6 % (0-6); HEMOGLOBIN 9.7 g/dL (12.0-15.5); LYMPHOCYTES % (AUTO) 18.2 % (13-45); MEAN CORPUSCULAR HGB CONC 33.4 g/dL (32.0-36.0); MEAN CORPUSCULAR VOLUME 90 fl (80-97); MONOCYTES % (AUTO) 8.1 % (3-13); PLATELET COUNT 320 10^3/uL (150-450); RED BLOOD COUNT 3.22 10^6/uL (3.72-5.28); RED CELL DISTRIBUTION WIDTH 17.2 % (11.5-14.0); SEGMENTED NEUTROPHILS % (AUTO) 71.8 % (42-78); TOTAL CELLS COUNTED % (AUTO) 100 %; WHITE BLOOD COUNT 5.9 10^3/uL (4.0-10.5)
[2019-04-24 06:07] LABS: ALBUMIN 3.4 g/dL (3.5-5.0); ANION GAP 8 (5-19); BLOOD UREA NITROGEN 22 mg/dL (7-20); CALCIUM 8.6 mg/dL (8.4-10.2); CARBON DIOXIDE 27 mmol/L (22-30); CHLORIDE 107 mmol/L (98-107); GLUCOSE 106 mg/dL (75-110); PHOSPHORUS 6.4 mg/dL (2.5-4.5); POTASSIUM 4.2 mmol/L (3.6-5.0)
[2019-04-24] MEDS: CEFEPIME 1 GM/D5W RTU 1 GM/50 ML RTUPB IV SCH ×2 (06:26→17:40)
[2019-04-24] MEDS: FUROSEMIDE INJ/PF 40 MG/4 ML SDV IV SCH ×2 (09:47→22:39)
[2019-04-24] MEDS: SACUBITRIL/VALSARTAN 24 MG/26 MG TABLET PO SCH ×2 (09:47→17:40)
[2019-04-24] MEDS: METOPROLOL SUCCINATE 25 MG TAB.SR.24H PO SCH ×2 (09:48→22:39)
[2019-04-24] MEDS: BUSPIRONE HCL 10 MG TABLET PO SCH ×2 (09:48→17:40)
[2019-04-24] MEDS: APIXABAN 2.5 MG TABLET PO SCH ×2 (09:48→17:40)
[2019-04-24] MEDS: PAROXETINE HCL 20 MG TABLET PO SCH (09:48)
[2019-04-24] MEDS: ASPIRIN 81 MG TABLET, ENT COATED PO SCH (09:48)
[2019-04-24] MEDS: ISOSORBIDE MONONITRATE 30 MG TAB.ER.24H PO SCH (09:48)
[2019-04-24] MEDS: FAMOTIDINE 20 MG TABLET PO SCH ×2 (09:50→22:38)
[2019-04-24] MEDS ORDERED: LEVALBUTEROL HCL NEB 1.25 MG/3 ML AMPUL NEB PRN (16:52)
--- NOTE | 2019-04-24 16:52 | PDOC PROGRESS REPORT ---
Subjective Progress Note for:: 04/24/19 Subjective:: The patient is a 48-year-old female with past medical history of atrial fibrillation, CHF, CAD, GA, hyperlipidemia, hypertension, COPD, DM, GERD, depression, CKD who was admitted 04/23/19 with Acute on chronic respiratory failure secondary to CHF exacerbation. Patient was seen on morning rounds with family member present. She is found sitting up in bed, comfortably, on supplemental oxygen via nasal cannula. She actually appears to be in better health than the last time I saw her which was midway through her prior admission for bilateral MRSA pneumonia. The patient does admit that her breathing is significantly improved as compared to last night. She does continue to have orthopnea, dyspnea on exertion with minimal activity, and a nonproductive cough. She does note that her bilateral lower extremity edema is slightly improved today. She denies fever, chest pain, palpitations, abdominal pain, nausea vomiting and diarrhea. She has no new questions or concerns. No concerns per nursing. Reason For Visit: HEART FAILURE,DIABETES,CRF, INFECTION Physical Exam Vital Signs: Temp Pulse Resp BP Pulse Ox 97.5 F 60 16 107/67 94 04/24/19 12:01 04/24/19 14:00 04/24/19 12:01 04/24/19 12:01 04/24/19 12:01 Intake & Output 04/23/19 04/24/19 04/25/19 06:59 06:59 06:59 Intake Total 630 50 Balance 630 50 Weight 81.81 kg 101.7 kg General appearance: PRESENT: no acute distress, cooperative, morbidly obese, well-developed, well-nourished Head exam: PRESENT: atraumatic, normocephalic Eye exam: PRESENT: conjunctiva pink, EOMI, PERRLA. ABSENT: scleral icterus Ear exam: PRESENT: normal external ear exam Mouth exam: PRESENT: moist, tongue midline Respiratory exam: PRESENT: clear to auscultation renu, symmetrical, unlabored. ABSENT: rales, rhonchi, wheezes Cardiovascular exam: PRESENT: RRR, +S1, +S2. ABSENT: diastolic murmur, rubs, systolic murmur Pulses: PRESENT: normal dorsalis pedis pul Vascular exam: PRESENT: normal capillary refill GI/Abdominal exam: PRESENT: normal bowel sounds, soft. ABSENT: distended, guarding, mass, organolmegaly, rebound, tenderness Extremities exam: PRESENT: full ROM, pedal edema - trace bilaterally. ABSENT: calf tenderness, clubbing Neurological exam: PRESENT: alert, awake, oriented to person, oriented to place, oriented to time, oriented to situation, CN II-XII grossly intact. ABSENT: motor sensory deficit Psychiatric exam: PRESENT: appropriate affect, normal mood. ABSENT: homicidal ideation, suicidal ideation Skin exam: PRESENT: dry, intact, warm. ABSENT: cyanosis, rash Results Laboratory Results: 04/24/19 05:19 04/24/19 05:19 04/24/19 04/24/19 05:19 05:19 WBC 5.9 RBC 3.22 L Hgb 9.7 L Hct 29.0 L MCV 90 MCH 30.0 MCHC 33.4 RDW 17.2 H Plt Count 320 Seg Neutrophils % 71.8 Sodium 141.5 Potassium 4.2 Chloride 107 Carbon Dioxide 27 Anion Gap 8 BUN 22 H Creatinine 2.29 H Est GFR ( Amer) 28 L Glucose 106 Calcium 8.6 Phosphorus 6.4 H Magnesium 2.1 Albumin 3.4 L 04/23/19 02:36 Troponin I 0.058 NT-Pro-B Natriuret Pep 31245 H Impressions: Abdomen/Pelvis CTA 04/23/19 04:49 IMPRESSION: No focal filling defect is seen to suggest a pulmonary embolism. There are groundglass mosaic changes which may reflect evidence of air trapping or distal small vessel or small airway disease. There are consolidative airspace opacities which may reflect superimposed infection. A chronic interstitial process is not fully excluded. The cardiac silhouette is enlarged. There is also evidence of pulmonary artery hypertension. No acute abdominal process is seen. Chest/Abdomen CTA 04/23/19 04:49 IMPRESSION: No focal filling defect is seen to suggest a pulmonary embolism. There are groundglass mosaic changes which may reflect evidence of air trapping or distal small vessel or small airway disease. There are consolidative airspace opacities which may reflect superimposed infection. A chronic interstitial process is not fully excluded. The cardiac silhouette is enlarged. There is also evidence of pulmonary artery hypertension. No acute abdominal process is seen. Assessment and Plan - Diagnosis (1) Acute worsening of stage 3 chronic kidney disease Is this a current diagnosis for this admission?: Yes Plan: Secondary to acute CHF exacerbation and contrast dye for CTA. Will optimize cardiac output. Discussed with Dr. Ragsdale today; plans for dobutamine. We will hold on IV fluids secondary to acute CHF exacerbation with strong propensity for rapid volume overload. We will encourage p.o. fluids. Strict I's and O's. Avoid nephrotoxic medications as able. Follow-up chemistry. (2) Acute on chronic respiratory failure Qualifiers: Respiratory failure complication: hypoxia Qualified Code(s): J96.21 - Acute and chronic respiratory failure with hypoxia Is this a current diagnosis for this admission?: Yes Plan: Improved; now maintaining oxygen saturations on supplemental oxygen via nasal cannula. She did require BiPAP overnight. We will optimize cardiac output. Continue supplemental oxygen and BiPAP as needed to maintain saturations. Continue scheduled and as needed nebulizer treatments. Incentive spirometer and flutter valve to bedside. (3) Acute on chronic systolic congestive heart failure, NYHA class 3 Is this a current diagnosis for this admission?: Yes Plan: The patient is admitted to [facility] on continuous cardiac telemetry. Cardiology is consulted. Discussed with Dr. Ragsdale today; plans for dobutamine. Awaiting central line placement. Continue home medication regiment of Imdur, Toprol, Entresto, Aspirin, and Eliqis. Currently receiving IV furosemide for diuresis. Cardiac diet. Daily weights, strict I&O's. (4) CAD (coronary artery disease) Qualifiers: Coronary Disease-Associated Artery/Lesion type: [place] artery [place] vs. transplanted heart: [place] heart Associated angina: without angina Qualified Code(s): I25.10 - Atherosclerotic heart disease of [place] coronary artery without angina pectoris Is this a current diagnosis for this admission?: Yes Plan: Aspirin, Eliquis, atorvastatin, Imdur and anti-hypertensives as above. (5) Depression Qualifiers: Depression Type: major depressive disorder Major depression recurrence: recurrent Active/Remission status: currently active Major depression episode severity: moderate Qualified Code(s): F33.1 - Major depressive disorder, recurrent, moderate Is this a current diagnosis for this admission?: Yes Plan: Continue home dose Paxil. Melatonin nightly. (6) Hyperlipidemia Qualifiers: Hyperlipidemia type: unspecified Qualified Code(s): E78.5 - Hyperlipidemia, unspecified Is this a current diagnosis for this admission?: Yes Plan: Cardiac diet. Continue home dose atorvastatin. (7) Hypertension Qualifiers: Hypertension type: essential hypertension Qualified Code(s): I10 - Essential (primary) hypertension Is this a current diagnosis for this admission?: Yes Plan: Antihypertensives as above. (8) Ischemic cardiomyopathy with implantable cardioverter-defibrillator (ICD) Is this a current diagnosis for this admission?: Yes Plan: Cardiology is consulted; primary management per Dr. Martin. Recently completed 6 weeks course of IV antibiotics for MRSA bacteremia. (9) Pneumonia Qualifiers: Pneumonia type: due to methicillin-resistant Staphylococcus aureus (MRSA) Is this a current diagnosis for this admission?: Yes Plan: Recently completed full course of IV antibiotics for MRSA pneumonia. Repeat CTA this admission is suggestive of superimposed infection. Possibly residual from recent PNA and not reflective of active/recurrent infection. WBCs are normal patient is afebrile, currently maintaining oxygen saturations with clear lung sounds on 2 L via nasal cannula. Will discontinue antibiotics and observe closely. - Time Time Spent with patient: 35 or more minutes Medications reviewed and adjusted accordingly: Yes
[2019-04-24] MEDS ORDERED: LIDOCAINE 1% INJ-PF (10 MG/ML) 30 ML SDV ONE (19:37)
--- NOTE | 2019-04-24 20:55 | Operative Report ---
Operative Report DATE OF SURGERY: 04/24/19 PREOPERATIVE DIAGNOSIS: central line for dobutamine infusion POSTOPERATIVE DIAGNOSIS: Same OPERATION: Placement of right internal jugular vein catheter under ultrasound guidance SURGEON: RODY PARIKH ANESTHESIA: Local TISSUE REMOVED OR ALTERED: None COMPLICATIONS: None ESTIMATED BLOOD LOSS: 5 cc QUANTITATIVE BLOOD LOSS: 5 INTRAOPERATIVE FINDINGS: Normal internal jugular vein noted on ultrasound PROCEDURE: After informed consent obtained for central line placement, patient was placed in Trendelenburg position and the right neck prepped and draped in the usual sterile fashion. Local anesthesia infiltrated over the skin overlying the internal jugular vein. The vein was then punctured and return blood showed nonpulsatile flow and dark blood. A cath guidewire was then placed over into the needle towards the area of the superior vena cava. Needle was then removed and puncture site subsequently dilated. A triple-lumen catheter inserted through the guidewire and directed towards the superior the superior vena cava. It was placed up to 15 cm jamie. Guidewire was removed and all the 3 ports aspirated blood easily and infuse saline easily. Catheter was then anchored to the skin with 3-0 nylon. Biopatch placed in the insertion site and transparent sterile dressing placed over the Biopatch and catheter. Chest x-ray was then obtained which showed good positioning of the catheter towards the area of the atrium. Patient has pacemaker in place. No evidence of pneumothorax. Patient tolerated procedure well and nurse was in for the line can be used for dobutamine medications.
--- NOTE | 2019-04-24 21:19 | RADIOLOGY REPORT (SQ) ---
EXAM DESCRIPTION: XR CHEST 1 VIEW COMPLETED DATE/TME: 04/24/2019 00:00 CLINICAL HISTORY: 48 years, Female, Central line placement COMPARISON: April 23, 2019 NUMBER OF VIEWS: Single portable view 2030 TECHNIQUE: AP LIMITATIONS: None. FINDINGS: Cardiomediastinal silhouette is enlarged but stable with postsurgical change. Interstitial alveolar space disease mostly right lung base are similar to prior. No significant pleural fluid. No pneumothorax. The new right IJ central venous catheter tip projects over SVC, satisfactory IMPRESSION: Satisfactory placement of central venous catheter copyright 2010 [employer]- All Rights Reserved
[2019-04-24] MEDS: DOBUTAMINE HCL/D5W 500 MG/250 ML RTUINJ IV PRN (22:26)
--- NOTE | 2019-04-24 22:36 | Progress Note ---
Provider Note Provider Note: CARDIOLOGY PROGRESS NOTE by Dr. Griselda Martin on 04/24/2019. SUBJECTIVE: The patient states she hurts all over her body. She continues to be short of breath and has PND and orthopnea. Denies any chest pain discomfort. She is coughing up greenish-yellow sputum. There is some black tinge to the sputum also. There is no hemoptysis. She does have some mild leg edema. Renal function is worsened. Note that the patient already has chronic kidney disease stage III and she did receive IV contrast for a pulmonary embolism. Her urine output is decreasing. There is no firing of the AICD. There is no bleeding on Eliquis. There is no TIA CVA symptoms. PHYSICAL EXAMINATION: The patient is moderately obese. In some mild respiratory distress. Selected Entries 04/24/19 04/24/19 12:00 12:01 Temperature 97.5 F Temperature Oral Source Heart Rate ( 60 Monitors) Respiratory 16 Rate Blood Pressure 107/67 Blood Pressure 80 Mean BP Location Left Arm BP Position Sitting O2 Sat by Pulse 94 Oximetry Oxygen Flow 2.00 Rate Oxygen Delivery Nasal Cannula Method HEAD: Is atraumatic normocephalic. EYES: Pupils are equal round regular reactive to light. HEENT is negative. SKIN: There is no skin rashes or skin lesions. There is no particular ecchymosis. NECK: Is supple. There is mild JVD present. Carotids are equal there is no bruits. There is no lymphadenopathy. There is no goiter. There is no accessory muscle respiration use. Trachea central. LUNGS: There are a few scattered rhonchi. There is no wheezing. There is some coarse rales in the right lower lobe. There is bibasilar rales of CHF.. There is egophony in the right middle lobe. There is diminished air entry. On percussion there is hyperresonance. On palpation there is no chest wall tenderness. HEART: S1-S2 is heard. There is no S3 gallop. There is no S4 gallop. There is systolic murmur mitral regurgitation tricuspid regurgitation present. There is no aortic stenosis murmur. There is no aortic insufficiency murmur. There is no rub. ABDOMEN: Is obese. Nontender. There is no hepatosplenomegaly. Bowel sounds are well heard. There is no rebound guarding or rigidity. EXTREMITIES: Femorals are deep. Femorals are diminished. There is no femoral bruits. There is decreased leg pulses. There is mild pedal edema. burnisher and bumper the patient is conscious awake alert oriented x3 with no focal deficits. PSYCHIATRIC: The patient judgment insight are intact. She does not appear to be agitated or anxious. Labs- All tests 24 hr 04/24/19 04/24/19 05:19 05:19 WBC 5.9 RBC 3.22 L Hgb 9.7 L Hct 29.0 L MCV 90 MCH 30.0 MCHC 33.4 RDW 17.2 H Plt Count 320 Lymph % (Auto) 18.2 [place] % (Auto) 8.1 Eos % (Auto) 0.6 Baso % (Auto) 1.3 Absolute Neuts (auto) 4.2 Absolute Lymphs (auto) 1.1 Absolute Monos (auto) 0.5 Absolute Eos (auto) 0.0 Absolute Basos (auto) 0.1 Seg Neutrophils % 71.8 Sodium 141.5 Potassium 4.2 Chloride 107 Carbon Dioxide 27 Anion Gap 8 BUN 22 H Creatinine 2.29 H Est GFR ( Amer) 28 L Est GFR (MDRD) Non-Af 23 L Glucose 106 Calcium 8.6 Phosphorus 6.4 H Magnesium 2.1 Albumin 3.4 L Abdomen/Pelvis CTA 04/23/19 04:49 IMPRESSION: No focal filling defect is seen to suggest a pulmonary embolism. There are groundglass mosaic changes which may reflect evidence of air trapping or distal small vessel or small airway disease. There are consolidative airspace opacities which may reflect superimposed infection. A chronic interstitial process is not fully excluded. The cardiac silhouette is enlarged. There is also evidence of pulmonary artery hypertension. No acute abdominal process is seen. Chest/Abdomen CTA 04/23/19 04:49 IMPRESSION: No focal filling defect is seen to suggest a pulmonary embolism. There are groundglass mosaic changes which may reflect evidence of air trapping or distal small vessel or small airway disease. There are consolidative airspace opacities which may reflect superimposed infection. A chronic interstitial process is not fully excluded. The cardiac silhouette is enlarged. There is also evidence of pulmonary artery hypertension. No acute abdominal process is seen. Chest X-Ray 04/24/19 00:00 IMPRESSION: Satisfactory placement of central venous catheter. There is no good intake and output records. We discussed with the nurses the importance of getting accurate STEPHANI on this patient c IMPRESSION/RECOMMENDATION: 1. Acute on chronic respiratory failure. This is multifactorial secondary to the patient's acute on chronic systolic heart failure, sleep apnea and acute exacerbation of COPD and pneumonia, and acute on chronic renal failure. Continue IV Lasix. The patient has a central line placed. We will start the patient on dobutamine at 2.5 mcg/kg/min. And increase as tolerated. 2. Elevated troponin I most likely secondary to supply demand mismatch. No evidence of non-ST elevation RI. Hence we will treat the underlying cause and not treat this as a non-ST elevation RI. 3. Acute on chronic systolic heart failure. Patient with LV ejection fraction of 25%. We will hold the patient's Entresto for now. We will hold the patient's beta-rip for now. The patient will be continued on IV Lasix. We will start the patient on dobutamine and increase as tolerated. We will watch for arrhythmias on dobutamine. 4. Acute exacerbation COPD: Continue bronchodilators. 5. MRSA pneumonia: The patient has been treated with antibiotics for 6 weeks. We will recheck the patient's blood culture. 6. History of amiodarone toxicity. Would recommend avoiding amiodarone 7. Acute on chronic kidney disease: Watch renal function as we implement aggressive diuresis. 8. Cardiomyopathy with severely reduced LV ejection fraction. Her medications adjusted. Her beta-rip has been decreased to Toprol 25 mg XL once daily since she is taking by mouth. Entresto has been decreased to 49/51.. Will decrease the patient's isosorbide mononitrate from 60 mg to 30 mg p.o. daily. 9. Paroxysmal atrial fibrillation: Continue beta-rip. The patient Eliquis had to be stopped due to patient's anemia and also prior occult positive bloo blood in the stools. The patient later will be restarted on Eliquis. 10. History of ventricular tachycardia, The patient has an AICD placed. If there is recurrence of ventricular tachycardia or major ventricular ectopic activity then would start the patient on small dose of sotalol. Would avoid amiodarone. 11. Hypertension: Blood pressure well controlled, on current medications. 12. Coronary artery disease: History of RI and history of coronary bypass graft surgery. No evidence of acute coronary syndrome/non-ST ST elevation RI this admission. 13. Obstructive sleep apnea. Note patient has been noncompliant with CPAP. Most likely has significant pulmonary hypertension. 14. AICD placement: Note the patient's basal rate is around 60 bpm. If the patient's heart failure continues then would recommend increasing the basal heart rate to 80 bpm to help combat the heart failure along with diuretics. 15. MRSA bacteremia: Medications reviewed. Medications adjusted and also medications started. Medical regimen and management plan discussed . Medical decision making is of high complexity. 45 minutes spent as patient more than 50% of time spent in direct patient care. Management plan discussed with the attending provider. Will follow. Note the patient's prognosis very guarded.
[2019-04-24] MEDS: ALPRAZOLAM 0.5 MG TABLET PO PRN (22:38)
[2019-04-24] MEDS: MELATONIN 5 MG TABLET PO SCH (22:38)
[2019-04-24] MEDS: ATORVASTATIN CALCIUM 80 MG TABLET PO SCH (22:38)
[2019-04-24] MEDS: SENNOSIDES/DOCUSATE 8.6-50 MG 1 EACH TABLET PO SCH (22:39)
[2019-04-25] MEDS: MORPHINE SULFATE 10 MG/ML INJ IV PRN (03:41)
[2019-04-25] MEDS: ALPRAZOLAM 0.5 MG TABLET PO PRN (06:04)
[2019-04-25] MEDS: CEFEPIME 1 GM/D5W RTU 1 GM/50 ML RTUPB IV SCH ×2 (06:04→18:05)
[2019-04-25 06:08] LABS: HEMATOCRIT 27.6 % (36.0-47.0); HEMOGLOBIN 9.1 g/dL (12.0-15.5); MEAN CORPUSCULAR HEMOGLOBIN 30.1 pg (27.0-33.4); MEAN CORPUSCULAR HGB CONC 33.2 g/dL (32.0-36.0); MEAN CORPUSCULAR VOLUME 91 fl (80-97); PLATELET COUNT 328 10^3/uL (150-450); RED BLOOD COUNT 3.04 10^6/uL (3.72-5.28); RED CELL DISTRIBUTION WIDTH 17.4 % (11.5-14.0); WHITE BLOOD COUNT 7.3 10^3/uL (4.0-10.5)
[2019-04-25 06:34] LABS: ANION GAP 11 (5-19); BLOOD UREA NITROGEN 22 mg/dL (7-20); CALCIUM 8.9 mg/dL (8.4-10.2); CARBON DIOXIDE 27 mmol/L (22-30); CHLORIDE 101 mmol/L (98-107); GLUCOSE 97 mg/dL (75-110); POTASSIUM 3.9 mmol/L (3.6-5.0)
[2019-04-25] MEDS ORDERED: OXYCODONE-ACETAMINOPHEN 5-325 MG TABLET PO PRN (11:11)
[2019-04-25] MEDS: FAMOTIDINE 20 MG TABLET PO SCH ×2 (11:28→21:59)
[2019-04-25] MEDS: PAROXETINE HCL 20 MG TABLET PO SCH (11:28)
[2019-04-25] MEDS: SACUBITRIL/VALSARTAN 24 MG/26 MG TABLET PO SCH ×2 (11:28→18:51)
[2019-04-25] MEDS: METOPROLOL SUCCINATE 25 MG TAB.SR.24H PO SCH ×2 (11:28→21:59)
[2019-04-25] MEDS: APIXABAN 2.5 MG TABLET PO SCH ×2 (11:28→18:51)
[2019-04-25] MEDS: ISOSORBIDE MONONITRATE 30 MG TAB.ER.24H PO SCH (11:29)
[2019-04-25] MEDS: ASPIRIN 81 MG TABLET, ENT COATED PO SCH (11:29)
[2019-04-25] MEDS: FUROSEMIDE INJ/PF 40 MG/4 ML SDV IV SCH ×2 (11:29→22:00)
[2019-04-25] MEDS: BUSPIRONE HCL 10 MG TABLET PO SCH ×2 (11:29→18:51)
--- NOTE | 2019-04-25 17:10 | PDOC PROGRESS REPORT ---
Subjective Progress Note for:: 04/25/19 Subjective:: The patient is a 48-year-old female with past medical history of atrial fibrillation, CHF, CAD, [place], hyperlipidemia, hypertension, COPD, DM, GERD, depression, CKD who was admitted 04/23/19 with Acute on chronic respiratory failure secondary to CHF exacerbation. Patient was seen on morning rounds with family member present. She is found sitting up in bed, comfortably, on supplemental oxygen via nasal cannula. She reports significant fatigue today. Also reports generalized bodyaches (chronic) and requests adjustments to her pain medications. Did discuss some limitation regarding pain medications due to her hypotension; she is understanding. She does continue to have orthopnea, dyspnea on exertion with minimal activity, and a nonproductive cough. She does note that her bilateral lower extremity edema is slightly improved today. She denies fever, chest pain, palpitations, abdominal pain, nausea vomiting and diarrhea. Long discussion had with patient and family member regarding co-morbid relationship of CHF, CKD, and respiratory failure. Many appropriate questions asked. Patient and family are encouraged to continue asking questions and advocating for self. No concerns per nursing. Reason For Visit: HEART FAILURE,DIABETES,CRF, INFECTION Physical Exam Vital Signs: Temp Pulse Resp BP Pulse Ox 99.3 F 69 20 115/60 88 L 04/25/19 15:21 04/25/19 15:21 04/25/19 15:21 04/25/19 15:21 04/25/19 15:21 Intake & Output 04/24/19 04/25/19 04/26/19 06:59 06:59 06:59 Intake Total 630 830 Balance 630 830 Weight 101.7 kg 103.2 kg General appearance: PRESENT: no acute distress, cooperative, morbidly obese, well-developed, well-nourished Head exam: PRESENT: atraumatic, normocephalic Eye exam: PRESENT: conjunctiva pink, EOMI, PERRLA. ABSENT: scleral icterus Mouth exam: PRESENT: moist, tongue midline Respiratory exam: PRESENT: clear to auscultation renu, decreased breath sounds, unlabored, other - Supplemental oxygen by nasal cannula. ABSENT: rales, rhonchi, wheezes Cardiovascular exam: PRESENT: RRR, +S1, +S2. ABSENT: diastolic murmur, rubs, systolic murmur Vascular exam: PRESENT: normal capillary refill GI/Abdominal exam: PRESENT: normal bowel sounds, soft. ABSENT: distended, guarding, mass, organolmegaly, rebound, tenderness Rectal exam: PRESENT: deferred Gentrourinary exam: PRESENT: indwelling catheter Extremities exam: PRESENT: full ROM, pedal edema - Trace bilaterally. ABSENT: calf tenderness, clubbing Neurological exam: PRESENT: alert, awake, oriented to person, oriented to place, oriented to time, oriented to situation, CN II-XII grossly intact. ABSENT: motor sensory deficit Psychiatric exam: PRESENT: depressed - Tearful, normal mood. ABSENT: homicidal ideation, suicidal ideation Skin exam: PRESENT: dry, intact, warm. ABSENT: cyanosis, rash Results Laboratory Results: 04/25/19 05:38 04/25/19 05:38 04/25/19 04/25/19 05:38 05:38 WBC 7.3 RBC 3.04 L Hgb 9.1 L Hct 27.6 L MCV 91 MCH 30.1 MCHC 33.2 RDW 17.4 H Plt Count 328 Sodium 138.8 Potassium 3.9 Chloride 101 Carbon Dioxide 27 Anion Gap 11 BUN 22 H Creatinine 2.39 H Est GFR ( Amer) 26 L Glucose 97 Calcium 8.9 04/23/19 02:36 Troponin I 0.058 NT-Pro-B Natriuret Pep [id number] H Impressions: Abdomen/Pelvis CTA 04/23/19 04:49 IMPRESSION: No focal filling defect is seen to suggest a pulmonary embolism. There are groundglass mosaic changes which may reflect evidence of air trapping or distal small vessel or small airway disease. There are consolidative airspace opacities which may reflect superimposed infection. A chronic interstitial process is not fully excluded. The cardiac silhouette is enlarged. There is also evidence of pulmonary artery hypertension. No acute abdominal process is seen. Chest/Abdomen CTA 04/23/19 04:49 IMPRESSION: No focal filling defect is seen to suggest a pulmonary embolism. There are groundglass mosaic changes which may reflect evidence of air trapping or distal small vessel or small airway disease. There are consolidative airspace opacities which may reflect superimposed infection. A chronic interstitial process is not fully excluded. The cardiac silhouette is enlarged. There is also evidence of pulmonary artery hypertension. No acute abdominal process is seen. Chest X-Ray 04/24/19 00:00 IMPRESSION: Satisfactory placement of central venous catheter copyright 2010 [employer]- All Rights Reserved Assessment and Plan - Diagnosis (1) Acute worsening of stage 3 chronic kidney disease Is this a current diagnosis for this admission?: Yes Plan: Secondary to acute CHF exacerbation and contrast dye for CTA. Creatinine continues to trend up; fortunately sodium and potassium remain normal. Will optimize cardiac output. Now on dobutamine for renal support. We will hold on IV fluids secondary to acute CHF exacerbation with strong propensity for rapid volume overload. Strict I&O's. Avoid nephrotoxic medications as able. Follow-up chemistry. (2) Acute on chronic respiratory failure Qualifiers: Respiratory failure complication: hypoxia Qualified Code(s): J96.21 - Acute and chronic respiratory failure with hypoxia Is this a current diagnosis for this admission?: Yes Plan: Improved; now maintaining oxygen saturations on supplemental oxygen via nasal cannula. She did require BiPAP overnight. We will optimize cardiac output. Continue supplemental oxygen and BiPAP as needed to maintain saturations. Continue scheduled and as needed nebulizer treatments. Incentive spirometer and flutter valve to bedside. (3) Acute on chronic systolic congestive heart failure, NYHA class 3 Is this a current diagnosis for this admission?: Yes Plan: The patient is admitted to [facility] on continuous cardiac telemetry. Cardiology is consulted. Dobutamin gtt per Dr. Ragsdale. Continue home medication regiment of Imdur, Toprol, Entresto, Aspirin, and Eliqis. Currently receiving IV furosemide for diuresis. Cardiac diet. Daily weights, strict I&O's. (4) CAD (coronary artery disease) Qualifiers: Coronary Disease-Associated Artery/Lesion type: telida artery [place] vs. transplanted heart: telida heart Associated angina: without angina Qualified Code(s): I25.10 - Atherosclerotic heart disease of telida coronary artery with out angina pectoris Is this a current diagnosis for this admission?: Yes Plan: Aspirin, Eliquis, atorvastatin, Imdur and anti-hypertensives as above. (5) Depression Qualifiers: Depression Type: major depressive disorder Major depression recurrence: recurrent Active/Remission status: currently active Major depression episode severity: moderate Qualified Code(s): F33.1 - Major depressive disorder, recurrent, moderate Is this a current diagnosis for this admission?: Yes Plan: Continue home dose Paxil. Melatonin nightly. (6) Hyperlipidemia Qualifiers: Hyperlipidemia type: unspecified Qualified Code(s): E78.5 - Hyperlipidemia, unspecified Is this a current diagnosis for this admission?: Yes Plan: Cardiac diet. Continue home dose atorvastatin. (7) Hypertension Qualifiers: Hypertension type: essential hypertension Qualified Code(s): I10 - Essential (primary) hypertension Is this a current diagnosis for this admission?: Yes Plan: Currently hypotensive; discussed medications with Dr. Ragsdale. To continue regiment unchanged r/t CHF exacerbation. Continues on dobutamine. Plan antihypertensives as above. (8) Ischemic cardiomyopathy with implantable cardioverter-defibrillator (ICD) Is this a current diagnosis for this admission?: Yes Plan: Cardiology is consulted; primary management per Dr. Martin. Recently completed 6 weeks course of IV antibiotics for MRSA bacteremia. Repeat blood cultures are negative. (9) Pneumonia Qualifiers: Pneumonia type: due to methicillin-resistant Staphylococcus aureus (MRSA) Is this a current diagnosis for this admission?: Yes Plan: Resolved. Recently completed full course of IV antibiotics for MRSA pneumonia. Repeat CTA this admission is suggestive of superimposed infection. Possibly residual from recent PNA and not reflective of active/recurrent infection. WBCs are normal patient is afebrile, currently maintaining oxygen saturations with clear lung sounds on 2 L via nasal cannula. Have discontinued antibiotics and observe closely. - Time Time Spent with patient: 35 or more minutes Medications reviewed and adjusted accordingly: Yes Anticipated discharge: Home
--- NOTE | 2019-04-25 18:41 | Progress Note ---
Provider Note Provider Note: CARDIOLOGY PROGRESS NOTE by Dr. Griselda Cruz on 04/25/2019. SUBJECTIVE: The patient appears to be lethargic. She was started on dobutamine at 2.5 mcg/kg/min with some marginal increase in the urine output. The patient subsequently dropped her blood pressure and we had to start the patient on dopamine also. There is no arrhythmia seen on the monitor. There is no recurrence of atrial fibrillation the patient continues to have some shortness of breath. She also has orthopnea. She has cough but is not able to produce any sputum. She has no PND. There is no chest pain discomfort. There is no firing of her AICD. There is no ventricle arrhythmia seen on the monitor. She has mild pedal edema. Renal function has not improved much. PHYSICAL EXAMINATION: The patient is moderately obese. Appears to be lethargic but in no acute distress. Selected Entries 04/25/19 15:21 Temperature 99.3 F Temperature Oral Source Pulse Rate 69 Respiratory 20 Rate Blood Pressure 115/60 Blood Pressure 78 Mean BP Location Right Arm BP Position Supine O2 Sat by Pulse 88 L Oximetry Oxygen Delivery Room Air Method HEAD: Is atraumatic normocephalic. EYES: Pupils are equal round regular reactive to light. HEENT is negative. SKIN: There is no skin rashes or skin le sions. There is no particular ecchymosis. NECK: Is supple. There is mild JVD present. Carotids are equal there is no bruits. There is no lymphadenopathy. There is no goiter. There is no accessory muscle respiration use. Trachea central. LUNGS: There are a few scattered rhonchi. There is no wheezing. There is some coarse rales in the right lower lobe. There is bibasilar rales of CHF.. There is egophony in the right middle lobe. There is diminished air entry. On percussion there is hyperresonance. On palpation there is no chest wall tenderness. HEART: S1-S2 is heard. There is no S3 gallop. There is no S4 gallop. There is systolic murmur mitral regurgitation tricuspid regurgitation present. There is no aortic stenosis murmur. There is no aortic insufficiency murmur. There is no rub. ABDOMEN: Is obese. Nontender. There is no hepatosplenomegaly. Bowel sounds are well heard. There is no rebound guarding or rigidity. EXTREMITIES: Femorals are deep. Femorals are diminished. There is no femoral bruits. There is decreased leg pulses. There is mild pedal edema. dietary aide the patient is conscious awake alert oriented x3 with no focal deficits. PSYCHIATRIC: The patient judgment insight are intact. She does not appear to be agitated or anxious.. Labs- All tests 24 hr 04/25/19 04/25/19 05:38 05:38 WBC 7.3 RBC 3.04 L Hgb 9.1 L Hct 27.6 L MCV 91 MCH 30.1 MCHC 33.2 RDW 17.4 H Plt Count 328 Sodium 138.8 Potassium 3.9 Chloride 101 Carbon Dioxide 27 Anion Gap 11 BUN 22 H Creatinine 2.39 H Est GFR ( Amer) 26 L Est GFR (MDRD) Non-Af 22 L Glucose 97 Calcium 8.9 Abdomen/Pelvis CTA 04/23/19 04:49 IMPRESSION: No focal filling defect is seen to suggest a pulmonary embolism. There are groundglass mosaic changes which may reflect evidence of air trapping or distal small vessel or small airway disease. There are consolidative airspace opacities which may reflect superimposed infection. A chronic interstitial process is not fully excluded. The cardiac silhouette is enlarged. There is also evidence of pulmonary artery hypertension. No acute abdominal process is seen. Chest/Abdomen CTA 04/23/19 04:49 IMPRESSION: No focal filling defect is seen to suggest a pulmonary embolism. There are groundglass mosaic changes which may reflect evidence of air trapping or distal small vessel or small airway disease. There are consolidative airspace opacities which may reflect superimposed infection. A chronic interstitial process is not fully excluded. The cardiac silhouette is enlarged. There is also evidence of pulmonary artery hypertension. No acute abdominal process is seen. Chest X-Ray 04/24/19 00:00 IMPRESSION: Satisfactory placement of central venous catheter copyright 2010 [employer]- All Rights Reserved IMPRESSION/RECOMMENDATION: 1. Acute on chronic respiratory failure. This is multifactorial secondary to the patient's acute on chronic systolic heart failure, sleep apnea and acute exacerbation of COPD and pneumonia, and acute on chronic renal failure. Continue IV Lasix. The patient has a central line placed. We will start the patient on dobutamine at 2.5 mcg/kg/min. And increase as tolerated. 2. Acute on chronic systolic heart failure. Patient with LV ejection fraction of 25%. We will hold the patient's Entresto for now. We will hold the patient's beta-rip for now. The patient will be continued on IV Lasix. We will start the patient on dobutamine and increase as tolerated. We will watch for arrhythmias on dobutamine. Dopamine was added due to the patient's blood pressure going into the 70s systolic. 4. Acute exacerbation COPD: Continue bronchodilators. 5. MRSA pneumonia: The patient has been treated with antibiotics for 6 weeks. We will recheck the patient's blood culture. 6. History of amiodarone toxicity. Would recommend avoiding amiodarone 7. Acute on chronic kidney disease: Watch renal function as we implement aggressive diuresis. 8. Cardiomyopathy with severely reduced LV ejection fraction. Her medications adjusted. Her beta-rip has been decreased to Toprol 25 mg XL once daily since she is taking by mouth. Entresto has been decreased to 49/51.. Will decrease the patient's isosorbide mononitrate from 60 mg to 30 mg p.o. daily. 9. Paroxysmal atrial fibrillation: Continue beta-rip. The patient Eliquis had to be stopped due to patient's anemia and also prior occult positive bloo blood in the stools. The patient later will be restarted on Eliquis. 10. History of ventricular tachycardia, The patient has an AICD placed. If there is recurrence of ventricular tachycardia or major ventricular ectopic activity then would start the patient on small dose of sotalol. Would avoid amiodarone. 11. Hypertension: Blood pressure well controlled, on current medications. 12. Coronary artery disease: History of [place] and history of coronary bypass graft surgery. No evidence of acute coronary syndrome/non-ST ST elevation ME this admission. 13. Obstructive sleep apnea. Note patient has been noncompliant with CPAP. Most likely has significant pulmonary hypertension. 14. AICD placement: Note the patient's basal rate is around 60 bpm. If the patient's heart failure continues then would recommend increasing the basal heart rate to 80 bpm to help combat the heart failure along with diuretics. 15. MRSA bacteremia: Medications reviewed. Medications adjusted and also medications started. Medical regimen and management plan discussed . Medical decision making is of high complexity. 45 minutes spent as patient more than 50% of time spent in direct patient care. Management plan discussed with the attending provider. Will follow. Note the patient's prognosis very guarded.
[2019-04-25] MEDS: DOPAMINE HCL 800 MG/D5W 250 ML IV PRN (18:47)
[2019-04-25] MEDS: OXYCODONE-ACETAMINOPHEN 5-325 MG TABLET PO PRN (18:51)
[2019-04-25] MEDS: MELATONIN 5 MG TABLET PO SCH (21:59)
[2019-04-25] MEDS: ATORVASTATIN CALCIUM 80 MG TABLET PO SCH (21:59)
[2019-04-25] MEDS: SENNOSIDES/DOCUSATE 8.6-50 MG 1 EACH TABLET PO SCH (21:59)
[2019-04-26] MEDS: CEFEPIME 1 GM/D5W RTU 1 GM/50 ML RTUPB IV SCH ×2 (05:35→17:35)
[2019-04-26] MEDS: OXYCODONE-ACETAMINOPHEN 5-325 MG TABLET PO PRN ×3 (05:38→16:40)
[2019-04-26] MEDS: ALPRAZOLAM 0.5 MG TABLET PO PRN (05:38)
[2019-04-26] MEDS: DOBUTAMINE HCL/D5W 500 MG/250 ML RTUINJ IV PRN (05:42)
[2019-04-26 05:47] LABS: HEMATOCRIT 29.4 % (36.0-47.0); HEMOGLOBIN 10.2 g/dL (12.0-15.5); MEAN CORPUSCULAR HEMOGLOBIN 30.7 pg (27.0-33.4); MEAN CORPUSCULAR HGB CONC 34.6 g/dL (32.0-36.0); MEAN CORPUSCULAR VOLUME 89 fl (80-97); PLATELET COUNT 308 10^3/uL (150-450); RED BLOOD COUNT 3.31 10^6/uL (3.72-5.28); RED CELL DISTRIBUTION WIDTH 17.2 % (11.5-14.0); WHITE BLOOD COUNT 6.6 10^3/uL (4.0-10.5)
[2019-04-26 06:07] LABS: ANION GAP 6 (5-19); BLOOD UREA NITROGEN 22 mg/dL (7-20); CALCIUM 9.1 mg/dL (8.4-10.2); CARBON DIOXIDE 30 mmol/L (22-30); CHLORIDE 106 mmol/L (98-107); GLUCOSE 110 mg/dL (75-110); POTASSIUM 3.9 mmol/L (3.6-5.0)
[2019-04-26] MEDS: FUROSEMIDE INJ/PF 40 MG/4 ML SDV IV SCH ×2 (10:53→22:07)
[2019-04-26] MEDS: METOPROLOL SUCCINATE 25 MG TAB.SR.24H PO SCH ×2 (10:54→22:07)
[2019-04-26] MEDS: PAROXETINE HCL 20 MG TABLET PO SCH (10:54)
[2019-04-26] MEDS: BUSPIRONE HCL 10 MG TABLET PO SCH ×2 (10:54→17:35)
[2019-04-26] MEDS: SACUBITRIL/VALSARTAN 24 MG/26 MG TABLET PO SCH ×2 (10:54→17:35)
[2019-04-26] MEDS: ISOSORBIDE MONONITRATE 30 MG TAB.ER.24H PO SCH (10:54)
[2019-04-26] MEDS: APIXABAN 2.5 MG TABLET PO SCH ×2 (10:54→17:35)
[2019-04-26] MEDS: FAMOTIDINE 20 MG TABLET PO SCH ×2 (10:54→22:07)
[2019-04-26] MEDS: ASPIRIN 81 MG TABLET, ENT COATED PO SCH (10:54)
--- NOTE | 2019-04-26 17:08 | PDOC PROGRESS REPORT ---
Subjective Progress Note for:: 04/26/19 Subjective:: The patient is a 48-year-old female with past medical history of atrial fibrillation, CHF, CAD, ND, hyperlipidemia, hypertension, COPD, DM, GERD, depression, CKD who was admitted 04/23/19 with Acute on chronic respiratory failure secondary to CHF exacerbation. Patient was seen on afternoon rounds. She is found sitting up in bed, comfortably, on supplemental oxygen via nasal cannula. She reports continued fatigue today. She again reports generalized bodyaches (chronic) and requests adjustments to her pain medications; unfortunately, she remains hypotensive. D id discuss some limitation regarding pain medications due to her hypotension; she is understanding. She does continue to have orthopnea, dyspnea on exertion with minimal activity, and a nonproductive cough. She does note that her bilateral lower extremity edema is significantly improved today. She denies fever, chest pain, palpitations, abdominal pain, nausea vomiting and diarrhea. She has no other questions or concerns at this time No concerns per nursing. Reason For Visit: HEART FAILURE,DIABETES,CRF, INFECTION Physical Exam Vital Signs: Temp Pulse Resp BP Pulse Ox 97.6 F 63 15 119/76 100 04/26/19 03:43 04/26/19 14:44 04/26/19 14:44 04/26/19 14:00 04/26/19 14:44 Intake & Output 04/25/19 04/26/19 04/27/19 06:59 06:59 06:59 Intake Total 830 1043 668 Output Total 1550 800 Balance 830 -507 -132 Weight 103.2 kg General appearance: PRESENT: no acute distress, cooperative, disheveled, morbidly obese, well-developed, well-nourished Head exam: PRESENT: atraumatic, normocephalic Eye exam: PRESENT: conjunctiva pink, EOMI, PERRLA. ABSENT: scleral icterus Mouth exam: PRESENT: moist, tongue midline Respiratory exam: PRESENT: clear to auscultation renu, prolonged expiratory phas, symmetrical, unlabored, other - Supplemental oxygen by nasal cannula. ABSENT: rales, rhonchi, wheezes Cardiovascular exam: PRESENT: RRR, +S1, +S2. ABSENT: diastolic murmur, rubs, systolic murmur Pulses: PRESENT: normal dorsalis pedis pul Vascular exam: PRESENT: normal capillary refill GI/Abdominal exam: PRESENT: normal bowel sounds, soft. ABSENT: distended, guarding, mass, organolmegaly, rebound, tenderness Rectal exam: PRESENT: deferred Gentrourinary exam: PRESENT: indwelling catheter Extremities exam: PRESENT: full ROM. ABSENT: calf tenderness, clubbing, pedal edema Neurological exam: PRESENT: alert, awake, oriented to person, oriented to place, oriented to time, oriented to situation, CN II-XII grossly intact. ABSENT: motor sensory deficit Psychiatric exam: PRESENT: appropriate affect, depressed. ABSENT: homicidal ideation, suicidal ideation Skin exam: PRESENT: dry, intact, warm. ABSENT: cyanosis, rash Results Laboratory Results: 04/26/19 05:28 04/26/19 05:28 04/26/19 04/26/19 05:28 05:28 WBC 6.6 RBC 3.31 L Hgb 10.2 L Hct 29.4 L MCV 89 MCH 30.7 MCHC 34.6 RDW 17.2 H Plt Count 308 Sodium 142.0 Potassium 3.9 Chloride 106 Carbon Dioxide 30 Anion Gap 6 BUN 22 H Creatinine 2.55 H Est GFR ( Amer) 24 L Glucose 110 Calcium 9.1 04/23/19 02:36 Troponin I 0.058 NT-Pro-B Natriuret Pep 57709 H Impressions: Abdomen/Pelvis CTA 04/23/19 04:49 IMPRESSION: No focal filling defect is seen to suggest a pulmonary embolism. There are groundglass mosaic changes which may reflect evidence of air trapping or distal small vessel or small airway disease. There are consolidative airspace opacities which may reflect superimposed infection. A chronic interstitial process is not fully excluded. The cardiac silhouette is enlarged. There is also evidence of pulmonary artery hypertension. No acute abdominal process is seen. Chest/Abdomen CTA 04/23/19 04:49 IMPRESSION: No focal filling defect is seen to suggest a pulmonary embolism. There are groundglass mosaic changes which may reflect evidence of air trapping or distal small vessel or small airway disease. There are consolidative airspace opacities which may reflect superimposed infection. A chronic interstitial process is not fully excluded. The cardiac silhouette is enlarged. There is also evidence of pulmonary artery hypertension. No acute abdominal process is seen. Chest X-Ray 04/24/19 00:00 IMPRESSION: Satisfactory placement of central venous catheter copyright 2011 [employer]- All Rights Reserved Assessment and Plan - Diagnosis (1) Acute worsening of stage 3 chronic kidney disease Is this a current diagnosis for this admission?: Yes Plan: Secondary to acute CHF exacerbation and contrast dye for CTA. Creatinine continues to trend up; fortunately sodium and potassium remain normal. Will optimize cardiac output. Now on dobutamine and dopamine We will hold on IV fluids secondary to acute CHF exacerbation with strong propensity for rapid volume overload. Strict I&O's. Avoid nephrotoxic medications as able. We will ask nephrology to provide assistance. Follow-up chemistry. (2) Acute on chronic respiratory failure Qualifiers: Respiratory failure complication: hypoxia Qualified Code(s): J96.21 - Acute and chronic respiratory failure with hypoxia Is this a current diagnosis for this admission?: Yes Plan: Improved; now maintaining oxygen saturations on supplemental oxygen via nasal cannula. She did require BiPAP overnight. We will optimize cardiac output. Continue supplemental oxygen and BiPAP as needed to maintain saturations. Continue scheduled and as needed nebulizer treatments. Incentive spirometer and flutter valve to bedside. (3) Acute on chronic systolic congestive heart failure, NYHA class 3 Is this a current diagnosis for this admission?: Yes Plan: The patient is admitted to [facility] on continuous cardiac telemetry. Cardiology is consulted; medications per Dr. Ragsdale's expertise Dobutamin gtt per Dr. Ragsdale. Dopamine drip per Dr. Hoffman Continue home medication regiment of Imdur, Toprol, Entresto, Aspirin, and Eliqis. Currently receiving IV furosemide for diuresis. Cardiac diet. Daily weights, strict I&O's. (4) CAD (coronary artery disease) Qualifiers: Coronary Disease-Associated Artery/Lesion type: [place] artery [place] vs. transplanted heart: [place] heart Associated angina: without angina Qualified Code(s): I25.10 - Atherosclerotic heart disease of [place] coronary artery without angina pectoris Is this a current diagnosis for this admission?: Yes Plan: Aspirin, Eliquis, atorvastatin, Imdur and anti-hypertensives as above. (5) Depression Qualifiers: Depression Type: major depressive disorder Major depression recurrence: recurrent Active/Remission status: currently active Major depression episode severity: moderate Qualified Code(s): F33.1 - Major depressive disorder, recurrent, moderate Is this a current diagnosis for this admission?: Yes Plan: Continue home dose Paxil. Melatonin nightly. (6) Hyperlipidemia Qualifiers: Hyperlipidemia type: unspecified Qualified Code(s): E78.5 - Hyperlipidemia, unspecified Is this a current diagnosis for this admission?: Yes Plan: Cardiac diet. Continue home dose atorvastatin. (7) Hypertension Qualifiers: Hypertension type: essential hypertension Qualified Code(s): I10 - Essential (primary) hypertension Is this a current diagnosis for this admission?: Yes Plan: Currently hypotensive; discussed medications with Dr. Ragsdale. To continue regiment unchanged r/t CHF exacerbation. Continues on dobutamine. Plan antihypertensives as above. (8) Ischemic cardiomyopathy with implantable cardioverter-defibrillator (ICD) Is this a current diagnosis for this admission?: Yes Plan: Cardiology is consulted; primary management per Dr. Martin. Recently completed 6 weeks course of IV antibiotics for MRSA bacteremia. Repeat blood cultures are negative. (9) Pneumonia Qualifiers: Pneumonia type: due to methicillin-resistant Staphylococcus aureus (MRSA) Is this a current diagnosis for this admission?: Yes Plan: Resolved. Recently completed full course of IV antibiotics for MRSA pneumonia. Repeat CTA this admission is suggestive of superimposed infection. Possibly residual from recent PNA and not reflective of active/recurrent infection. WBCs are normal patient is afebrile, currently maintaining oxygen saturations with clear lung sounds on 2 L via nasal cannula. Have discontinued antibiotics and will continue to observe closely. (10) Chronic pain Qualifiers: Chronic pain type: other chronic pain Qualified Code(s): G89.29 - Other chronic pain Is this a current diagnosis for this admission?: Yes Plan: Opiate dependent chronic pain. We will continue oxycodone 10 mg every 6 hours as needed as blood pressure allows. Lidoderm patches. Tylenol as needed. Heating pad. - Time Time Spent with patient: 25-34 minutes Medications reviewed and adjusted accordingly: Yes Anticipated discharge: Home
[2019-04-26] MEDS: DOPAMINE HCL 800 MG/D5W 250 ML IV PRN (17:43)
--- NOTE | 2019-04-26 19:34 | Progress Note ---
Provider Note Provider Note: CARDIOLOGY PROGRESS NOTE by Dr. Griselda Martin on 04/26/2019. All subjective: The patient complains of generalized fatigue and generalized muscle aches. She also seems to be lethargic. She has orthopnea. She also has shortness of breath. There is no chest pain discomfort. She states she is coughing up greenish sputum. There is no TIA CVA symptoms. There is no bleeding on Eliquis. There is no recurrence of atrial fibrillation or ventricular arrhythmias. There is no firing of the AICD. PHYSICAL EXAMINATION: The patient is moderately obese. Appears to be withdrawn and lethargic. But seems to be appropriate when she awakens to answer questions. Selected Entries 04/26/19 04/26/19 04/26/19 08:00 08:46 09:00 Pulse Rate Blood Pressure 92/42 L O2 Sat by Pulse 100 Oximetry Oxygen Delivery Nasal Cannula Method ( includes room air) Oxygen Flow 3 Rate 04/26/19 10:00 Pulse Rate 65 Blood Pressure 110/70 O2 Sat by Pulse Oximetry Oxygen Delivery Method ( includes room air) Oxygen Flow 3 L/min Rate HEAD: Is atraumatic normocephalic. EYES: Pupils are equal round regular reactive to light. HEENT is negative. SKIN: There is no skin rashes or skin lesions. There is no particular ecchymosis. NECK: Is supple. There is mild JVD present. Carotids are equal there is no bruits. There is no lymphadenopathy. There is no goiter. There is no accessory muscle respiration use. Trachea central. LUNGS: There are a few scattered rhonchi. There is no wheezing. There is some coarse rales in the right lower lobe. There is bibasilar rales of CHF.. There is egophony in the right middle lobe. There is diminished air entry. On percussion there is hyperresonance. On palpation there is no chest wall tenderness. HEART: S1-S2 is heard. There is no S3 gallop. There is no S4 gallop. There is systolic murmur mitral regurgitation tricuspid regurgitation present. There is no aortic stenosis murmur. There is no aortic insufficiency murmur. There is no rub. ABDOMEN: Is obese. Nontender. There is no hepatosplenomegaly. Bowel sounds are well heard. There is no rebound guarding or rigidity. EXTREMITIES: Femorals are deep. Femorals are diminished. There is no femoral bruits. There is decreased leg pulses. There is mild pedal edema. 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 PSYCHIATRIC: The patient judgment insight are intact. She does not appear to be agitated or anxious. Labs- All tests 24 hr 04/26/19 04/26/19 05:28 05:28 WBC 6.6 RBC 3.31 L Hgb 10.2 L Hct 29.4 L MCV 89 MCH 30.7 MCHC 34.6 RDW 17.2 H Plt Count 308 Sodium 142.0 Potassium 3.9 Chloride 106 Carbon Dioxide 30 Anion Gap 6 BUN 22 H Creatinine 2.55 H Est GFR ( Amer) 24 L Est GFR (MDRD) Non-Af 20 L Glucose 110 Calcium 9.1 Abdomen/Pelvis CTA 04/23/19 04:49 IMPRESSION: No focal filling defect is seen to suggest a pulmonary embolism. There are groundglass mosaic changes which may reflect evidence of air trapping or distal small vessel or small airway disease. There are consolidative airspace opacities which may reflect superimposed infection. A chronic interstitial process is not fully excluded. The cardiac silhouette is enlarged. There is also evidence of pulmonary artery hypertension. No acute abdominal process is seen. Chest/Abdomen CTA 04/23/19 04:49 IMPRESSION: No focal filling defect is seen to suggest a pulmonary embolism. There are groundglass mosaic changes which may reflect evidence of air trapping or distal small vessel or small airway disease. There are consolidative airspace opacities which may reflect superimposed infection. A chronic interstitial process is not fully excluded. The cardiac silhouette is enlarged. There is also evidence of pulmonary artery hypertension. No acute abdominal process is seen. Chest X-Ray 04/24/19 00:00 IMPRESSION: Satisfactory placement of central venous catheter copyright 2010 [employer]- All Rights Reserved The patient's 24-hour intake equals 1043 mL, and the patient's output is thousand 5 mL. IMPRESSION/RECOMMENDATION: 1. Acute on chronic respiratory failure. This is multifactorial secondary to the patient's acute on chronic systolic heart failure, sleep apnea and acute exacerbation of COPD and pneumonia, and acute on chronic renal failure. Continue IV Lasix. The patient has a central line placed. We will start the patient on dobutamine at 2.5 mcg/kg/min. And increase as tolerated. 2. Acute on chronic systolic heart failure. Patient with LV ejection fraction of 25%. We will hold the patient's Entresto for now. We will hold the patient's beta-rip for now. The patient will be continued on IV Lasix. We will start the patient on dobutamine and increase as tolerated. We will watch for arrhythmias on dobutamine. Dopamine was added due to the patient's blood pressure going into the 70s systolic. The patient is on dobutamine at 5 mcg/kg/min and dopamine at 5 mcg/kg/min. 4. Acute exacerbation COPD: Continue bronchodilators. 5. MRSA pneumonia: The patient has been treated with antibiotics for 6 weeks. We will recheck the patient's blood culture. 6. History of amiodarone toxicity. Would recommend avoiding amiodarone 7. Acute on chronic kidney disease: Watch renal function as we implement aggressive diuresis. Note the patient is renal function is slightly worse of. 8. Cardiomyopathy with severely reduced LV ejection fraction. Her medications adjusted. Her beta-rip has been decreased to Toprol 25 mg XL once daily since she is taking by mouth. Entresto has been decreased to 49/51.. Will decrease the patient's isosorbide mononitrate from 60 mg to 30 mg p.o. daily. 9. Paroxysmal atrial fibrillation: Continue beta-rip. The patient Eliquis had to be stopped due to patient's anemia and also prior occult positive bloo blood in the stools. The patient later will be restarted on Eliquis. 10. History of ventricular tachycardia, The patient has an AICD placed. If there is recurrence of ventricular tachycardia or major ventricular ectopic activity then would start the patient on small dose of sotalol. Would avoid amiodarone. 11. Hypertension: Blood pressure well controlled, on current medications. 12. Coronary artery disease: History of RI and history of coronary bypass graft surgery. No evidence of acute coronary syndrome/non-ST ST elevation RI this admission. 13. Obstructive sleep apnea. Note patient has been noncompliant with CPAP. Most likely has significant pulmonary hypertension. 14. AICD placement: Note the patient's basal rate is around 60 bpm. If the patient's heart failure continues then would recommend increasing the basal heart rate to 80 bpm to help combat the heart failure along with diuretics. 15. MRSA bacteremia: Medications reviewed. Medications adjusted and also medications started. Medical regimen and management plan discussed . Medical decision making is of high complexity. 45 minutes spent as patient more than 50% of time spent in direct patient care. Management plan discussed with the attending provider. Will follow. Note the patient's prognosis very guarded.
[2019-04-26] MEDS: MELATONIN 5 MG TABLET PO SCH (22:07)
[2019-04-26] MEDS: SENNOSIDES/DOCUSATE 8.6-50 MG 1 EACH TABLET PO SCH (22:07)
[2019-04-26] MEDS: ATORVASTATIN CALCIUM 80 MG TABLET PO SCH (22:07)
[2019-04-27] MEDS: CEFEPIME 1 GM/D5W RTU 1 GM/50 ML RTUPB IV SCH (05:24)
[2019-04-27 06:03] LABS: HEMATOCRIT 31.6 % (36.0-47.0); MEAN CORPUSCULAR HEMOGLOBIN 31.1 pg (27.0-33.4); MEAN CORPUSCULAR HGB CONC 34.9 g/dL (32.0-36.0); MEAN CORPUSCULAR VOLUME 89 fl (80-97); PLATELET COUNT 325 10^3/uL (150-450); RED BLOOD COUNT 3.55 10^6/uL (3.72-5.28); RED CELL DISTRIBUTION WIDTH 16.8 % (11.5-14.0); WHITE BLOOD COUNT 5.9 10^3/uL (4.0-10.5)
[2019-04-27 06:26] LABS: ANION GAP 7 (5-19); BLOOD UREA NITROGEN 21 mg/dL (7-20); CALCIUM 9.5 mg/dL (8.4-10.2); CARBON DIOXIDE 32 mmol/L (22-30); CHLORIDE 103 mmol/L (98-107); GLUCOSE 109 mg/dL (75-110); POTASSIUM 4.1 mmol/L (3.6-5.0)
[2019-04-27] MEDS: FUROSEMIDE INJ/PF 40 MG/4 ML SDV IV SCH (10:12)
[2019-04-27] MEDS: ASPIRIN 81 MG TABLET, ENT COATED PO SCH (10:13)
[2019-04-27] MEDS: OXYCODONE-ACETAMINOPHEN 5-325 MG TABLET PO PRN ×3 (10:13→23:02)
[2019-04-27] MEDS: BUSPIRONE HCL 10 MG TABLET PO SCH ×2 (10:13→17:36)
[2019-04-27] MEDS: APIXABAN 2.5 MG TABLET PO SCH ×2 (10:13→17:36)
[2019-04-27] MEDS: SACUBITRIL/VALSARTAN 24 MG/26 MG TABLET PO SCH ×2 (10:13→17:36)
[2019-04-27] MEDS: PAROXETINE HCL 20 MG TABLET PO SCH (10:13)
[2019-04-27] MEDS: ISOSORBIDE MONONITRATE 30 MG TAB.ER.24H PO SCH (10:13)
[2019-04-27] MEDS: FAMOTIDINE 20 MG TABLET PO SCH ×2 (10:13→23:05)
[2019-04-27] MEDS: LIDOCAINE 5% (700 MG) TRANSDERMAL ADH..PATCH TP SCH (10:13)
[2019-04-27] MEDS: METOPROLOL SUCCINATE 25 MG TAB.SR.24H PO SCH (10:13)
[2019-04-27] MEDS: DOPAMINE HCL 800 MG/D5W 250 ML IV PRN (10:15)
[2019-04-27] MEDS: DOBUTAMINE HCL/D5W 500 MG/250 ML RTUINJ IV PRN (10:19)
[2019-04-27] MEDS ORDERED: MIDODRINE HCL 5 MG TABLET PO ONE (14:33)
--- NOTE | 2019-04-27 15:11 | PDOC PROGRESS REPORT ---
Subjective Progress Note for:: 04/27/19 Subjective:: The patient is a 48-year-old female with past medical history of atrial fibrillation, CHF, CAD, AK, hyperlipidemia, hypertension, COPD, DM, GERD, depression, CKD who was admitted 04/23/19 with Acute on chronic respiratory failure secondary to CHF exacerbation. Patient was seen on morning rounds. She is found resting in bed, comfortably, on CPAP. She reports continued fatigue today. She again reports generalized bodyaches (chronic), though improved. Reports heating pad has helped. She continues to have orthopnea, dyspnea on exertion with minimal activity, and a nonproductive cough. She denies fever, chest pain, palpitations, abdominal pain, nausea vomiting and diarrhea. She has no other questions or concerns at this time Nursing concerned about hypotension; discussed with Dr. Ragsdale and Dr. Batres. Both state current blood pressures are expected/acceptable with this patient. Reason For Visit: HEART FAILURE,DIABETES,CRF, INFECTION Physical Exam Vital Signs: Temp Pulse Resp BP Pulse Ox 97.3 F 60 24 H 122/84 96 04/27/19 03:36 04/27/19 14:00 04/27/19 08:00 04/27/19 07:00 04/27/19 08:00 Intake & Output 04/26/19 04/27/19 04/28/19 06:59 06:59 06:59 Intake Total 1043 1844 427 Output Total 1550 3850 Balance -507 -2005 427 Weight 102.8 kg General appearance: PRESENT: no acute distress, cooperative, morbidly obese, well-developed, well-nourished Head exam: PRESENT: atraumatic, normocephalic Eye exam: PRESENT: conjunctiva pink, EOMI, PERRLA. ABSENT: scleral icterus Mouth exam: PRESENT: moist, tongue midline Respiratory exam: PRESENT: crackles, unlabored, other - Supplemental oxygen on BiPAP. ABSENT: rales, rhonchi, wheezes Cardiovascular exam: PRESENT: RRR, +S1, +S2, systolic murmur. ABSENT: diastolic murmur, rubs Pulses: PRESENT: +1 pedal pulses bilateral Vascular exam: PRESENT: normal capillary refill Gentrourinary exam: PRESENT: indwelling catheter Extremities exam: PRESENT: full ROM, pedal edema - Trace bilaterally. ABSENT: calf tenderness, clubbing Neurological exam: PRESENT: alert, awake, oriented to person, oriented to place, oriented to time, oriented to situation, CN II-XII grossly intact, other - Lethargic. ABSENT: motor sensory deficit Psychiatric exam: PRESENT: appropriate affect, normal mood. ABSENT: homicidal ideation, suicidal ideation Skin exam: PRESENT: dry, intact, warm. ABSENT: cyanosis, rash Results Laboratory Results: 04/27/19 05:15 04/27/19 05:15 04/27/19 04/27/19 05:15 05:15 WBC 5.9 RBC 3.55 L Hgb 11.0 L Hct 31.6 L MCV 89 MCH 31.1 MCHC 34.9 RDW 16.8 H Plt Count 325 Sodium 142.4 Potassium 4.1 Chloride 103 Carbon Dioxide 32 H Anion Gap 7 BUN 21 H Creatinine 1.95 H Est GFR ( Amer) 33 L Glucose 109 Calcium 9.5 04/23/19 02:36 Troponin I 0.058 NT-Pro-B Natriuret Pep 67237 H Impressions: Abdomen/Pelvis CTA 04/23/19 04:49 IMPRESSION: No focal filling defect is seen to suggest a pulmonary embolism. There are groundglass mosaic changes which may reflect evidence of air trapping or distal small vessel or small airway disease. There are consolidative airspace opacities which may reflect superimposed infection. A chronic interstitial process is not fully excluded. The cardiac silhouette is enlarged. There is also evidence of pulmonary artery hypertension. No acute abdominal process is seen. Chest/Abdomen CTA 04/23/19 04:49 IMPRESSION: No focal filling defect is seen to suggest a pulmonary embolism. There are groundglass mosaic changes which may reflect evidence of air trapping or distal small vessel or small airway disease. There are consolidative airspace opacities which may reflect superimposed infection. A chronic interstitial process is not fully excluded. The cardiac silhouette is enlarged. There is also evidence of pulmonary artery hypertension. No acute abdominal process is seen. Chest X-Ray 04/24/19 00:00 IMPRESSION: Satisfactory placement of central venous catheter copyright 2011 [employer]- All Rights Reserved Assessment and Plan - Diagnosis (1) Acute worsening of stage 3 chronic kidney disease Is this a current diagnosis for this admission?: Yes Plan: Improved today. Secondary to acute CHF exacerbation and contrast dye for CTA. Creatinine continues to trend up; fortunately sodium and potassium remain normal. Will optimize cardiac output. Now on dobutamine and dopamine We will hold on IV fluids secondary to acute CHF exacerbation with strong propensity for rapid volume overload. Strict I&O's. Avoid nephrotoxic medications as able. Follow-up chemistry. As patient's renal function has improved with addition of pressor support, will place nephrology consultation on hold at this time. Reconsult if she does not demonstrate continued improvement/stability (2) Acute on chronic respiratory failure Qualifiers: Respiratory failure complication: hypoxia Qualified Code(s): J96.21 - Acute and chronic respiratory failure with hypoxia Is this a current diagnosis for this admission?: Yes Plan: Improved; now maintaining oxygen saturations on supplemental oxygen via nasal cannula at rest. BiPAP while sleeping. We will optimize cardiac output. Continue supplemental oxygen and BiPAP as needed to maintain saturations. Continue scheduled and as needed nebulizer treatments. Incentive spirometer and flutter valve to bedside. (3) Acute on chronic systolic congestive heart failure, NYHA class 3 Is this a current diagnosis for this admission?: Yes Plan: The patient is admitted to [facility] on continuous cardiac telemetry. Cardiology is consulted; medications per Dr. Ragsdale's expertise Dobutamin gtt per Dr. Ragsdale. Dopamine drip per Dr. Ragsdale Continue home medication regiment of Imdur, Toprol, Entresto, Aspirin, and Eliqis. Currently receiving IV furosemide for diuresis. Cardiac diet. Daily weights, strict I&O's. (4) CAD (coronary artery disease) Qualifiers: Coronary Disease-Associated Artery/Lesion type: [place] artery [place] vs. transplanted heart: [place] heart Associated angina: without angina Qualified Code(s): I25.10 - Atherosclerotic heart disease of [place] coronary artery without angina pectoris Is this a current diagnosis for this admission?: Yes Plan: Aspirin, Eliquis, atorvastatin, Imdur and anti-hypertensives as above. (5) Depression Qualifiers: Depression Type: major depressive disorder Major depression recurrence: recurrent Active/Remission status: currently active Major depression episode severity: moderate Qualified Code(s): F33.1 - Major depressive disorder, recurrent, moderate Is this a current diagnosis for this admission?: Yes Plan: Continue home dose Paxil. Melatonin nightly. (6) Hyperlipidemia Qualifiers: Hyperlipidemia type: unspecified Qualified Code(s): E78.5 - Hyperlipidemia, unspecified Is this a current diagnosis for this admission?: Yes Plan: Cardiac diet. Continue home dose atorvastatin. (7) Hypertension Qualifiers: Hypertension type: essential hypertension Qualified Code(s): I10 - Essential (primary) hypertension Is this a current diagnosis for this admission?: Yes Plan: Currently hypotensive; discussed medications with Dr. Ragsdale. To continue regiment unchanged r/t CHF exacerbation. Continues on dobutamine. Plan antihypertensives as above. (8) Ischemic cardiomyopathy with implantable cardioverter-defibrillator (ICD) Is this a current diagnosis for this admission?: Yes Plan: Cardiology is consulted; primary management per Dr. Martin. Recently completed 6 weeks course of IV antibiotics for MRSA bacteremia. Repeat blood cultures are negative. (9) Pneumonia Qualifiers: Pneumonia type: due to methicillin-resistant Staphylococcus aureus (MRSA) Is this a current diagnosis for this admission?: Yes Plan: Resolved. Recently completed full course of IV antibiotics for MRSA pneumonia. Repeat CTA this admission is suggestive of superimposed infection. Possibly residual from recent PNA and not reflective of active/recurrent infection. WBCs are normal patient is afebrile, currently maintaining oxygen saturations with clear lung sounds on 2 L via nasal cannula. Have discontinued antibiotics and will continue to observe closely. (10) Chronic pain Qualifiers: Chronic pain type: other chronic pain Qualified Code(s): G89.29 - Other chronic pain Is this a current diagnosis for this admission?: Yes Plan: Opiate dependent chronic pain. We will continue oxycodone 5 mg every 6 hours as needed as blood pressure allows. Lidoderm patches. Tylenol as needed. Heating pad. - Time Time Spent with patient: 35 or more minutes Medications reviewed and adjusted accordingly: Yes Anticipated discharge: Home
[2019-04-27] MEDS: MIDODRINE HCL 5 MG TABLET PO SCH (17:35)
[2019-04-27] MEDS: MELATONIN 5 MG TABLET PO SCH (23:03)
[2019-04-27] MEDS: SENNOSIDES/DOCUSATE 8.6-50 MG 1 EACH TABLET PO SCH (23:03)
[2019-04-27] MEDS: ATORVASTATIN CALCIUM 80 MG TABLET PO SCH (23:10)
--- NOTE | 2019-04-27 23:31 | Progress Note ---
Provider Note Provider Note: Cardiology PROGRESS NOTE by Dr. Griselda Martin on 04/27/2019. SUBJECTIVE: The patient continues to have cough productive of greenish sputum. Her urine output is improved. Her GFR has come up to 27 mL/min. Her creatinine is come down to 1.95. She is continues to have shortness of breath with orthopnea. There is no atrial or ventricular arrhythmias seen. There is no bleeding from Eliquis. There is no TIA CVA symptoms. The patient's blood pressure is a problem. Last night the patient's blood pressure dropped to the 70s with the patient being lethargic. I heard that the patient's dopamine and dobutamine had been dialed up to 10 mcg/kg/min of each drip. I had stopped the dobutamine and decrease the dopamine drip to 5 mcg/kg/min. This morning her blood pressure was stable. On restarting the patient's dobutamine the patient's blood pressure again dropped. Hence the dobutamine has been discontinued. I have started the patient on midodrine. The patient's prognosis very poor. There is no firing of her AICD. PHYSICAL EXAMINATION: The patient is moderately obese. She appears to be slightly drowsy. But moves all 4 extremities. And seems to be awake oriented x3. Selected Entries 04/27/19 04/27/19 04/27/19 03:36 16:30 17:00 Temperature 97.3 F Pulse Rate 60 Heart Rate ( 67 Monitors) Blood Pressure 104/72 O2 Sat by Pulse 99 Oximetry Oxygen Delivery Nasal Cannula Method ( includes room air) Fraction of 34 Inspired Oxygen (FIO2) Oxygen Flow 3.5 Rate 04/27/19 18:00 Temperature Pulse Rate 60 Heart Rate ( Monitors) Blood Pressure 98/73 L O2 Sat by Pulse Oximetry Oxygen Delivery Method ( includes room air) Fraction of Inspired Oxygen (FIO2) Oxygen Flow Rate HEAD: Is atraumatic normocephalic. EYES: Pupils are equal round regular reactive to light. HEENT is negative. SKIN: There is no skin rashes or skin lesions. There is no particular ecchymosis. NECK: Is supple. There is mild JVD present. Carotids are equal there is no bruits. There is no lymphadenopathy. There is no goiter. There is no accessory muscle respiration use. Trachea central. LUNGS: There are a few scattered rhonchi. There is no wheezing. There is some coarse rales in the right lower lobe. There is bibasilar rales of CHF.. There is egophony in the right middle lobe. There is diminished air entry. On percussion there is hyperresonance. On palpation there is no chest wall tenderness. HEART: S1-S2 is heard. There is no S3 gallop. There is no S4 gallop. There is systolic murmur mitral regurgitation tricuspid regurgitation present. There is no aortic stenosis murmur. There is no aortic insufficiency murmur. There is no rub. ABDOMEN: Is obese. Nontender. There is no hepatosplenomegaly. Bowel sounds are well heard. There is no rebound guarding or rigidity. EXTREMITIES: Femorals are deep. Femorals are diminished. There is no femoral bruits. There is decreased leg pulses. There is mild pedal edema. activities director the patient is conscious awake alert oriented x3 with no focal deficits. PSYCHIATRIC: The patient judgment insight are intact. She does not appear to be agitated or anxious. The patient's 24-hour intake equals 1844 mL, and the patient's output is 3850 mL. Labs- All tests 24 hr 04/27/19 04/27/19 05:15 05:15 WBC 5.9 RBC 3.55 L Hgb 11.0 L Hct 31.6 L MCV 89 MCH 31.1 MCHC 34.9 RDW 16.8 H Plt Count 325 Sodium 142.4 Potassium 4.1 Chloride 103 Carbon Dioxide 32 H Anion Gap 7 BUN 21 H Creatinine 1.95 H Est GFR ( Amer) 33 L Est GFR (MDRD) Non-Af 27 L Glucose 109 Calcium 9.5 Abdomen/Pelvis CTA 04/23/19 04:49 IMPRESSION: No focal filling defect is seen to suggest a pulmonary embolism. There are groundglass mosaic changes which may reflect evidence of air trapping or distal small vessel or small airway disease. There are consolidative airspace opacities which may reflect superimposed infection. A chronic interstitial process is not fully excluded. The cardiac silhouette is enlarged. There is also evidence of pulmonary artery hypertension. No acute abdominal process is seen. Chest/Abdomen CTA 04/23/19 04:49 IMPRESSION: No focal filling defect is seen to suggest a pulmonary embolism. There are groundglass mosaic changes which may reflect evidence of air trapping or distal small vessel or small airway disease. There are consolidative airspace opacities which may reflect superimposed infection. A chronic interstitial process is not fully excluded. The cardiac silhouette is enlarged. There is also evidence of pulmonary artery hypertension. No acute abdominal process is seen. Chest X-Ray 04/24/19 00:00 IMPRESSION: Satisfactory placement of central venous catheter copyright 2010 [employer]- All Rights Reserved IMPRESSION/RECOMMENDATION: 1. Acute on chronic respiratory failure. This is multifactorial secondary to the patient's acute on chronic systolic heart failure, sleep apnea and acute exacerbation of COPD and pneumonia, and acute on chronic renal failure. Continue IV Lasix Continue the patient only on dopamine drip and see if we can wean this off. 2. Acute on chronic systolic heart failure. Patient with LV ejection fraction of 25%. We will hold the patient's Entresto for now. We will hold the patient's beta-rip for now. The patient will be continued on IV Lasix. We will start the patient on dobutamine and increase as tolerated. We will watch for arrhythmias on dobutamine. Dopamine was added due to the patient's blood pressure going into the 70s systolic. The patient's dobutamine drip has been discontinued and dopamine infusion is at 5 mcg/kg/min. We will start the patient on midodrine. 4. Acute exacerbation COPD: Continue bronchodilators. 5. MRSA pneumonia: The patient has been treated with antibiotics for 6 weeks. We will recheck the patient's blood culture. 6. History of amiodarone toxicity. Would recommend avoiding amiodarone 7. Acute on chronic kidney disease: Watch renal function as we implement aggressive diuresis. Note the patient is renal function is slightly worse of. 8. Cardiomyopathy with severely reduced LV ejection fraction. Her medications adjusted. Her beta-rip has been decreased to Toprol 25 mg XL once daily since she is taking by mouth. Entresto has been decreased to 49/51.. Will decrease the patient's isosorbide mononitrate from 60 mg to 30 mg p.o. daily. 9. Paroxysmal atrial fibrillation: Continue beta-rip. The patient Eliquis had to be stopped due to patient's anemia and also prior occult positive bloo blood in the stools. The patient later will be restarted on Eliquis. 10. History of ventricular tachycardia, The patient has an AICD placed. If there is recurrence of ventricular tachycardia or major ventricular ectopic activity then would start the patient on small dose of sotalol. Would avoid amiodarone. 11. Hypertension: Blood pressure well controlled, on current medications. 12. Coronary artery disease: History of DE and history of coronary bypass graft surgery. No evidence of acute coronary syndrome/non-ST ST elevation DE this admission. 13. Obstructive sleep apnea. Note patient has been noncompliant with CPAP. Most likely has significant pulmonary hypertension. 14. AICD placement: Note the patient's basal rate is around 60 bpm. If the patient's heart failure continues then would recommend increasing the basal heart rate to 80 bpm to help combat the heart failure along with diuretics. 15. MRSA bacteremia: Medications reviewed. Medications adjusted. Medical management and medical regimen discussed with the attending provider on the case. Medical decision making is of high complexity. 40 minutes spent with patient more than 50% of time spent in direct patient care. Will follow.
[2019-04-28] MEDS: FUROSEMIDE INJ/PF 40 MG/4 ML SDV IV SCH ×3 (01:41→22:11)
[2019-04-28] MEDS: METOPROLOL SUCCINATE 25 MG TAB.SR.24H PO SCH ×3 (01:45→22:13)
[2019-04-28 06:41] LABS: ANION GAP 6 (5-19); BLOOD UREA NITROGEN 20 mg/dL (7-20); CALCIUM 9.4 mg/dL (8.4-10.2); CARBON DIOXIDE 32 mmol/L (22-30); CHLORIDE 104 mmol/L (98-107); GLUCOSE 104 mg/dL (75-110); POTASSIUM 4.5 mmol/L (3.6-5.0)
[2019-04-28] MEDS: FAMOTIDINE 20 MG TABLET PO SCH ×2 (10:03→22:20)
[2019-04-28] MEDS: ASPIRIN 81 MG TABLET, ENT COATED PO SCH (10:03)
[2019-04-28] MEDS: APIXABAN 2.5 MG TABLET PO SCH ×2 (10:03→17:23)
[2019-04-28] MEDS: OXYCODONE-ACETAMINOPHEN 5-325 MG TABLET PO PRN ×3 (10:03→23:37)
[2019-04-28] MEDS: BUSPIRONE HCL 10 MG TABLET PO SCH ×2 (10:04→17:23)
[2019-04-28] MEDS: PAROXETINE HCL 20 MG TABLET PO SCH (10:05)
[2019-04-28] MEDS: LIDOCAINE 5% (700 MG) TRANSDERMAL ADH..PATCH TP SCH (10:05)
[2019-04-28] MEDS: MIDODRINE HCL 5 MG TABLET PO SCH ×3 (10:11→17:23)
[2019-04-28] MEDS: ISOSORBIDE MONONITRATE 30 MG TAB.ER.24H PO SCH (10:24)
[2019-04-28] MEDS: SACUBITRIL/VALSARTAN 24 MG/26 MG TABLET PO SCH ×2 (10:25→17:22)
--- NOTE | 2019-04-28 13:23 | RADIOLOGY REPORT (SQ) ---
EXAM DESCRIPTION: FOOT RIGHT 2 VIEWS COMPLETED DATE/TIME: 04/28/2019 1:13 pm REASON FOR STUDY: Pain COMPARISON: None. NUMBER OF VIEWS: Two views. TECHNIQUE: AP and lateral radiographic images acquired of the right foot. LIMITATIONS: None. FINDINGS: MINERALIZATION: Normal. BONES: No acute fracture or dislocation. No worrisome bone lesions. JOINTS: No effusions. SOFT TISSUES: No soft tissue swelling. No foreign body. OTHER: No other significant finding. IMPRESSION: NEGATIVE STUDY OF THE RIGHT FOOT. NO RADIOGRAPHIC EVIDENCE OF ACUTE INJURY. TECHNICAL DOCUMENTATION: JOB ID: [id number] 2011 [employer]- All Rights Reserved Reading location - IP/workstation name: [email or web address]
--- NOTE | 2019-04-28 13:24 | RADIOLOGY REPORT (SQ) ---
EXAM DESCRIPTION: CHEST SINGLE VIEW COMPLETED DATE/TIME: 04/28/2019 1:13 pm REASON FOR STUDY: dyspnea COMPARISON: 04/24/2019. EXAM PARAMETERS: NUMBER OF VIEWS: One view. TECHNIQUE: Single frontal radiographic view of the chest acquired. RADIATION DOSE: NA LIMITATIONS: None. FINDINGS: LUNGS AND PLEURA: Diffuse airspace disease unchanged. MEDIASTINUM AND HILAR STRUCTURES: No masses. Contour normal. HEART AND VASCULAR STRUCTURES: Stable cardiomegaly. BONES: No acute findings. HARDWARE: Defibrillator, sternotomy wires, central line. OTHER: No other significant finding. IMPRESSION: NO SIGNIFICANT INTERVAL CHANGE. TECHNICAL DOCUMENTATION: JOB ID: [id number] 2010 [employer]- All Rights Reserved Reading location - IP/workstation name: [email or web address]
[2019-04-28] MEDS: DOPAMINE HCL 800 MG/D5W 250 ML IV PRN (14:25)
--- NOTE | 2019-04-28 14:35 | PDOC PROGRESS REPORT ---
Subjective Progress Note for:: 04/28/19 Subjective:: The patient is a 48-year-old female with past medical history of atrial fibrillation, CHF, CAD, [place], hyperlipidemia, hypertension, COPD, DM, GERD, depression, CKD who was admitted 04/23/19 with Acute on chronic respiratory failure secondary to CHF exacerbation. Patient was seen on morning rounds. She is found resting in bed, comfortably, on supplemental oxygen. She reports continued fatigue today. She continues to have orthopnea, dyspnea on exertion with minimal activity, and a productive cough. She also complains of severe foot pain. She denies fever, chest pain, palpitations, abdominal pain, nausea vomiting and diarrhea. She has no other questions or concerns at this time No concerns per nursing. Reason For Visit: HEART FAILURE,DIABETES,CRF, INFECTION Physical Exam Vital Signs: Temp Pulse Resp BP Pulse Ox 98.2 F 60 20 115/80 99 04/28/19 11:21 04/28/19 13:00 04/28/19 11:21 04/28/19 13:00 04/28/19 11:21 Intake & Output 04/27/19 04/28/19 04/29/19 06:59 06:59 06:59 Intake Total 1844 1748 Output Total 3850 1400 Balance -2005 348 Weight 102.8 kg 102.1 kg General appearance: PRESENT: no acute distress, cooperative, obese, well- developed, well-nourished Head exam: PRESENT: atraumatic, normocephalic Eye exam: PRESENT: conjunctiva pink, EOMI, PERRLA. ABSENT: scleral icterus Mouth exam: PRESENT: moist, tongue midline Neck exam: ABSENT: carotid bruit, JVD, lymphadenopathy, thyromegaly Respiratory exam: PRESENT: decreased breath sounds - poor inspiratory effort, prolonged expiratory phas, symmetrical, unlabored, other - supplemental oxygen. ABSENT: rales, rhonchi, wheezes Cardiovascular exam: PRESENT: RRR, +S1, +S2, systolic murmur. ABSENT: diastolic murmur, rubs Pulses: PRESENT: normal dorsalis pedis pul Vascular exam: PRESENT: normal capillary refill GI/Abdominal exam: PRESENT: normal bowel sounds, soft. ABSENT: distended, guarding, mass, organolmegaly, rebound, tenderness Rectal exam: PRESENT: deferred Extremities exam: PRESENT: full ROM. ABSENT: calf tenderness, clubbing, pedal edema Neurological exam: PRESENT: alert, awake, oriented to person, oriented to place, oriented to time, oriented to situation, CN II-XII grossly intact, other - fatigued. ABSENT: motor sensory deficit Psychiatric exam: PRESENT: appropriate affect, normal mood. ABSENT: homicidal ideation, suicidal ideation Skin exam: PRESENT: dry, intact, warm. ABSENT: cyanosis, rash Results Laboratory Results: 04/27/19 05:15 04/28/19 05:50 04/28/19 05:50 Sodium 141.7 Potassium 4.5 Chloride 104 Carbon Dioxide 32 H Anion Gap 6 BUN 20 Creatinine 1.61 H Est GFR ( Amer) 42 L Glucose 104 Calcium 9.4 04/23/19 04:08 Blood Blood Culture - Final NO GROWTH IN 5 DAYS 04/23/19 02:36 Blood Blood Culture - Final NO GROWTH IN 5 DAYS 04/23/19 02:36 Troponin I 0.058 NT-Pro-B Natriuret Pep 49006 H Impressions: Abdomen/Pelvis CTA 04/23/19 04:49 IMPRESSION: No focal filling defect is seen to suggest a pulmonary embolism. There are groundglass mosaic changes which may reflect evidence of air trapping or distal small vessel or small airway disease. There are consolidative airspace opacities which may reflect superimposed infection. A chronic interstitial process is not fully excluded. The cardiac silhouette is enlarged. There is also evidence of pulmonary artery hypertension. No acute abdominal process is seen. Chest/Abdomen CTA 04/23/19 04:49 IMPRESSION: No focal filling defect is seen to suggest a pulmonary embolism. There are groundglass mosaic changes which may reflect evidence of air trapping or distal small vessel or small airway disease. There are consolidative airspace opacities which may reflect superimposed infection. A chronic interstitial process is not fully excluded. The cardiac silhouette is enlarged. There is also evidence of pulmonary artery hypertension. No acute abdominal process is seen. Chest X-Ray 04/28/19 00:00 IMPRESSION: NO SIGNIFICANT INTERVAL CHANGE. Foot X-Ray 04/28/19 00:00 IMPRESSION: NEGATIVE STUDY OF THE RIGHT FOOT. NO RADIOGRAPHIC EVIDENCE OF ACUTE INJURY. Assessment and Plan - Diagnosis (1) Acute worsening of stage 3 chronic kidney disease Is this a current diagnosis for this admission?: Yes Plan: Improved Cr 1.65-> 2.55-> 1.61. Baseline 1.60-1.80 Secondary to acute CHF exacerbation and contrast dye for CTA. Will optimize cardiac output. We will hold on IV fluids secondary to acute CHF exacerbation with strong propensity for rapid volume overload. Strict I&O's. Avoid nephrotoxic medications as able. Follow-up chemistry. As patient's renal function has improved with addition of pressor support, will place nephrology consultation on hold at this time. Re-consult if she does not demonstrate continued improvement/stability (2) Acute on chronic respiratory failure Qualifiers: Respiratory failure complication: hypoxia Qualified Code(s): J96.21 - Acute and chronic respiratory failure with hypoxia Is this a current diagnosis for this admission?: Yes Plan: Improved; now maintaining oxygen saturations on supplemental oxygen via nasal cannula at rest. BiPAP while sleeping. CXR unchanged from previous; diffuse airspace disease CTA suggested chronic interstitial disease with possible superimposed infection. We will optimize cardiac output. Continue supplemental oxygen and BiPAP as needed to maintain saturations. Continue scheduled and as needed nebulizer treatments. Incentive spirometer and flutter valve to bedside. Sputum culture pending. (3) Acute on chronic systolic congestive heart failure, NYHA class 3 Is this a current diagnosis for this admission?: Yes Plan: The patient is admitted to [facility] on continuous cardiac telemetry. Cardiology is consulted; medications per Dr. Ragsdale's expertise Dobutamin gtt per Dr. Ragsdale. Dopamine drip per Dr. Ragsdale Home medication regiment includes Imdur, Toprol, Entresto, Aspirin, and Eliqis; cardiology making adjustments. Furosemide for diuresis as indicated. Has been started on midodrine. Cardiac diet. Daily weights, strict I&O's. (4) CAD (coronary artery disease) Qualifiers: Coronary Disease-Associated Artery/Lesion type: [place] artery [place] vs. transplanted heart: [place] heart Associated angina: without angina Qualified Code(s): I25.10 - Atherosclerotic heart disease of [place] coronary artery without angina pectoris Is this a current diagnosis for this admission?: Yes Plan: Aspirin, Eliquis, atorvastatin, Imdur and anti-hypertensives as above. (5) Depression Qualifiers: Depression Type: major depressive disorder Major depression recurrence: recurrent Active/Remission status: currently active Major depression episode severity: moderate Qualified Code(s): F33.1 - Major depressive disorder, recurrent, moderate Is this a current diagnosis for this admission?: Yes Plan: Continue home dose Paxil. Melatonin nightly. (6) Hyperlipidemia Qualifiers: Hyperlipidemia type: unspecified Qualified Code(s): E78.5 - Hyperlipidemia, unspecified Is this a current diagnosis for this admission?: Yes Plan: Cardiac diet. Continue home dose atorvastatin. (7) Hypertension Qualifiers: Hypertension type: essential hypertension Qualified Code(s): I10 - Essential (primary) hypertension Is this a current diagnosis for this admission?: Yes Plan: Currently hypotensive Medications per Dr. Ragsdale (8) Ischemic cardiomyopathy with implantable cardioverter-defibrillator (ICD) Is this a current diagnosis for this admission?: Yes Plan: Cardiology is consulted; primary management per Dr. Martin. Recently completed 6 weeks course of IV antibiotics for MRSA bacteremia. Repeat blood cultures are negative. (9) Pneumonia Qualifiers: Pneumonia type: due to methicillin-resistant Staphylococcus aureus (MRSA) Is this a current diagnosis for this admission?: Yes Plan: Resolved. Recently completed full course of IV antibiotics for MRSA pneumonia. Repeat CTA this admission is suggestive of chronic interstitial disease with superimposed infection. Possibly residual from recent PNA and not reflective of active/recurrent infection. CXR unchanged. WBCs are normal patient is afebrile, currently maintaining oxygen saturations with clear lung sounds on 2 L via nasal cannula. Have discontinued antibiotics and will continue to observe closely. Sputum culture pending. (10) Chronic pain Qualifiers: Chronic pain type: other chronic pain Qualified Code(s): G89.29 - Other chronic pain Is this a current diagnosis for this admission?: Yes Plan: Opiate dependent chronic pain. We will continue oxycodone 5 mg every 6 hours as needed as blood pressure allow s. Lidoderm patches. Tylenol as needed. Heating pad. - Time Time Spent with patient: 25-34 minutes Medications reviewed and adjusted accordingly: Yes Anticipated discharge: Home
[2019-04-28] MEDS: ALPRAZOLAM 0.5 MG TABLET PO PRN (14:47)
[2019-04-28] MEDS: SENNOSIDES/DOCUSATE 8.6-50 MG 1 EACH TABLET PO SCH (22:12)
[2019-04-28] MEDS: MELATONIN 5 MG TABLET PO SCH (22:20)
[2019-04-28] MEDS: ATORVASTATIN CALCIUM 80 MG TABLET PO SCH (22:20)
[2019-04-29 06:16] LABS: HEMATOCRIT 29.9 % (36.0-47.0); HEMOGLOBIN 10.1 g/dL (12.0-15.5); MEAN CORPUSCULAR HEMOGLOBIN 30.8 pg (27.0-33.4); MEAN CORPUSCULAR HGB CONC 33.9 g/dL (32.0-36.0); MEAN CORPUSCULAR VOLUME 91 fl (80-97); PLATELET COUNT 303 10^3/uL (150-450); RED BLOOD COUNT 3.29 10^6/uL (3.72-5.28); RED CELL DISTRIBUTION WIDTH 17.8 % (11.5-14.0); WHITE BLOOD COUNT 5.5 10^3/uL (4.0-10.5)
[2019-04-29 06:34] LABS: ANION GAP 5 (5-19); BLOOD UREA NITROGEN 18 mg/dL (7-20); CALCIUM 8.9 mg/dL (8.4-10.2); CARBON DIOXIDE 30 mmol/L (22-30); CHLORIDE 106 mmol/L (98-107); GLUCOSE 104 mg/dL (75-110); POTASSIUM 4.1 mmol/L (3.6-5.0)
[2019-04-29] MEDS: METOPROLOL SUCCINATE 25 MG TAB.SR.24H PO SCH ×2 (09:47→21:25)
[2019-04-29] MEDS: FUROSEMIDE INJ/PF 40 MG/4 ML SDV IV SCH ×2 (09:47→21:25)
[2019-04-29] MEDS: SACUBITRIL/VALSARTAN 24 MG/26 MG TABLET PO SCH ×2 (09:47→18:16)
[2019-04-29] MEDS: APIXABAN 2.5 MG TABLET PO SCH ×2 (09:50→18:16)
[2019-04-29] MEDS: PAROXETINE HCL 20 MG TABLET PO SCH (09:50)
[2019-04-29] MEDS: ASPIRIN 81 MG TABLET, ENT COATED PO SCH (09:50)
[2019-04-29] MEDS: MIDODRINE HCL 5 MG TABLET PO SCH ×3 (09:50→18:16)
[2019-04-29] MEDS: BUSPIRONE HCL 10 MG TABLET PO SCH ×2 (09:51→18:16)
[2019-04-29] MEDS: FAMOTIDINE 20 MG TABLET PO SCH ×2 (09:51→21:29)
[2019-04-29] MEDS: OXYCODONE-ACETAMINOPHEN 5-325 MG TABLET PO PRN ×3 (09:57→22:01)
[2019-04-29] MEDS: LIDOCAINE 5% (700 MG) TRANSDERMAL ADH..PATCH TP SCH (10:02)
--- NOTE | 2019-04-29 15:06 | PDOC PROGRESS REPORT ---
Subjective Progress Note for:: 04/29/19 Subjective:: The patient is a 48-year-old female with past medical history of atrial fibrillation, CHF, CAD, [place], hyperlipidemia, hypertension, COPD, DM, GERD, depression, CKD who was admitted 04/23/19 with Acute on chronic respiratory failure secondary to CHF exacerbation. Patient was seen on morning rounds. She is found resting in bed, comfortably, on BiPAP. She was sleeping soundly, but woke briefly when I said her name. She confirms continued fatigue, orthopnea, dyspnea on exertion with minimal activity, and a productive cough. Foot pain is improved. She denies fever, chest pain, palpitations, abdominal pain, nausea vomiting and diarrhea. She has no questions or concerns at this time No concerns per nursing. Reason For Visit: HEART FAILURE,DIABETES,CRF, INFECTION Physical Exam Vital Signs: Temp Pulse Resp BP Pulse Ox 97.6 F 61 18 122/73 100 04/29/19 10:54 04/29/19 10:54 04/29/19 10:54 04/29/19 12:00 04/29/19 10:54 Intake & Output 04/28/19 04/29/19 04/30/19 06:59 06:59 06:59 Intake Total 1748 1734 481 Output Total 1400 1275 300 Balance 348 459 181 Weight 102.1 kg 102.7 kg General appearance: PRESENT: no acute distress, cooperative, obese, well- developed, well-nourished Head exam: PRESENT: atraumatic, normocephalic Eye exam: PRESENT: conjunctiva pink, EOMI, PERRLA. ABSENT: scleral icterus Mouth exam: PRESENT: moist, tongue midline Respiratory exam: PRESENT: clear to auscultation renu, decreased breath sounds - poor inspiratory effort, symmetrical, unlabored, other - BiPAP. ABSENT: rales, rhonchi, wheezes Cardiovascular exam: PRESENT: RRR, +S1, +S2, systolic murmur. ABSENT: diastolic murmur, rubs Pulses: PRESENT: normal dorsalis pedis pul Vascular exam: PRESENT: normal capillary refill Gentrourinary exam: PRESENT: indwelling catheter Extremities exam: PRESENT: full ROM. ABSENT: calf tenderness, clubbing, pedal edema Neurological exam: PRESENT: alert, awake, oriented to person, oriented to place, oriented to time, oriented to situation, CN II-XII grossly intact, other - lethargic. ABSENT: motor sensory deficit Psychiatric exam: PRESENT: appropriate affect, normal mood. ABSENT: homicidal ideation, suicidal ideation Skin exam: PRESENT: dry, intact, warm. ABSENT: cyanosis, rash Results Laboratory Results: 04/29/19 06:00 04/29/19 06:00 04/29/19 04/29/19 06:00 06:00 WBC 5.5 RBC 3.29 L Hgb 10.1 L Hct 29.9 L MCV 91 MCH 30.8 MCHC 33.9 RDW 17.8 H Plt Count 303 Sodium 140.5 Potassium 4.1 Chloride 106 Carbon Dioxide 30 Anion Gap 5 BUN 18 Creatinine 1.34 H Est GFR ( Amer) 51 L Glucose 104 Calcium 8.9 04/23/19 02:36 Troponin I 0.058 NT-Pro-B Natriuret Pep 09642 H Impressions: Abdomen/Pelvis CTA 04/23/19 04:49 IMPRESSION: No focal filling defect is seen to suggest a pulmonary embolism. There are groundglass mosaic changes which may reflect evidence of air trapping or distal small vessel or small airway disease. There are consolidative airspace opacities which may reflect superimposed infection. A chronic interstitial process is not fully excluded. The cardiac silhouette is enlarged. There is also evidence of pulmonary artery hypertension. No acute abdominal process is seen. Chest/Abdomen CTA 04/23/19 04:49 IMPRESSION: No focal filling defect is seen to suggest a pulmonary embolism. There are groundglass mosaic changes which may reflect evidence of air trapping or distal small vessel or small airway disease. There are consolidative airspace opacities which may reflect superimposed infection. A chronic interstitial process is not fully excluded. The cardiac silhouette is enlarged. There is also evidence of pulmonary artery hypertension. No acute abdominal process is seen. Chest X-Ray 04/28/19 00:00 IMPRESSION: NO SIGNIFICANT INTERVAL CHANGE. Foot X-Ray 04/28/19 00:00 IMPRESSION: NEGATIVE STUDY OF THE RIGHT FOOT. NO RADIOGRAPHIC EVIDENCE OF ACUTE INJURY. Assessment and Plan - Diagnosis (1) Acute worsening of stage 3 chronic kidney disease Is this a current diagnosis for this admission?: Yes Plan: Improved Cr 1.65-> 2.55-> 1.61-> 1.34. Baseline 1.60-1.80 Secondary to acute CHF exacerbation and contrast dye for CTA. Will optimize cardiac output. We will hold on IV fluids secondary to acute CHF exacerbation with strong propensity for rapid volume overload. Strict I&O's. Avoid nephrotoxic medications as able. Follow-up chemistry. As patient's renal function has improved with addition of pressor support, will place nephrology consultation on hold at this time. Re-consult if she does not demonstrate continued improvement/stability (2) Acute on chronic respiratory failure Qualifiers: Respiratory failure complication: hypoxia Qualified Code(s): J96.21 - Acute and chronic respiratory failure with hypoxia Is this a current diagnosis for this admission?: Yes Plan: Improved; now maintaining oxygen saturations on supplemental oxygen via nasal cannula at rest. BiPAP while sleeping. At baseline oxygen requirement; though more symptomatic. CXR unchanged from previous; diffuse airspace disease CTA suggested chronic interstitial disease with possible superimposed infection. We will optimize cardiac output. Continue supplemental oxygen and BiPAP as needed to maintain saturations. Continue scheduled and as needed nebulizer treatments. Incentive spirometer and flutter valve to bedside. Sputum culture pending. (3) Acute on chronic systolic congestive heart failure, NYHA class 3 Is this a current diagnosis for this admission?: Yes Plan: The patient is admitted to [facility] on continuous cardiac telemetry. Cardiology is consulted; medications per Dr. Ragsdale's expertise Dobutamin gtt per Dr. Ragsdale. Dopamine drip per Dr. Ragsdale Home medication regiment includes Imdur, Toprol, Entresto, Aspirin, and Eliqis; cardiology making adjustments. Furosemide for diuresis as indicated. Has been started on midodrine. Cardiac diet. Daily weights, strict I&O's. (4) CAD (coronary artery disease) Qualifiers: Coronary Disease-Associated Artery/Lesion type: [place] artery [place] vs. transplanted heart: [place] heart Associated angina: without angina Qualified Code(s): I25.10 - Atherosclerotic heart disease of [place] coronary artery without angina pectoris Is this a current diagnosis for this admission?: Yes Plan: Aspirin, Eliquis, atorvastatin, Imdur and anti-hypertensives as above. (5) Depression Qualifiers: Depression Type: major depressive disorder Major depression recurrence: recurrent Active/Remission status: currently active Major depression episode severity: moderate Qualified Code(s): F33.1 - Major depressive disorder, recurrent, moderate Is this a current diagnosis for this admission?: Yes Plan: Continue home dose Paxil. Melatonin nightly. (6) Hyperlipidemia Qualifiers: Hyperlipidemia type: unspecified Qualified Code(s): E78.5 - Hyperlipidemia, unspecified Is this a current diagnosis for this admission?: Yes Plan: Cardiac diet. Continue home dose atorvastatin. (7) Hypertension Qualifiers: Hypertension type: essential hypertension Qualified Code(s): I10 - Essential (primary) hypertension Is this a current diagnosis for this admission?: Yes Plan: Improved blood pressures today. Medications per Dr. Ragsdale (8) Ischemic cardiomyopathy with implantable cardioverter-defibrillator (ICD) Is this a current diagnosis for this admission?: Yes Plan: Cardiology is consulted; primary management per Dr. Martin. Recently completed 6 weeks course of IV antibiotics for MRSA bacteremia. Repeat blood cultures are negative. (9) Pneumonia Qualifiers: Pneumonia type: due to methicillin-resistant Staphylococcus aureus (MRSA) Is this a current diagnosis for this admission?: Yes Plan: Resolved. Recently completed full course of IV antibiotics for MRSA pneumonia. Repeat CTA this admission is suggestive of chronic interstitial disease with superimposed infection. Possibly residual from recent PNA and not reflective of active/recurrent infection. CXR unchanged. WBCs are normal patient is afebrile, currently maintaining oxygen saturations with clear lung sounds on 2 L via nasal cannula. Have discontinued antibiotics and will continue to observe closely. Sputum culture pending. (10) Chronic pain Qualifiers: Chronic pain type: other chronic pain Qualified Code(s): G89.29 - Other chronic pain Is this a current diagnosis for this admission?: Yes Plan: Opiate dependent chronic pain. We will continue oxycodone 5 mg every 6 hours as needed as blood pressure allo ws. Lidoderm patches. Tylenol as needed. Heating pad. - Time Time Spent with patient: 25-34 minutes Medications reviewed and adjusted accordingly: Yes Anticipated discharge: Home
[2019-04-29] MEDS: ALPRAZOLAM 0.5 MG TABLET PO PRN (18:21)
[2019-04-29] MEDS: MELATONIN 5 MG TABLET PO SCH (21:29)
[2019-04-29] MEDS: ATORVASTATIN CALCIUM 80 MG TABLET PO SCH (21:29)
[2019-04-29] MEDS: SENNOSIDES/DOCUSATE 8.6-50 MG 1 EACH TABLET PO SCH (21:30)
--- NOTE | 2019-04-29 23:24 | Progress Note ---
Provider Note Provider Note: CARDIOLOGY PROGRESS NOTE by Dr. Griselda Martin on 04/29/2019. SUBJECTIVE: The patient seems to be more awake and alert. She is less short of breath. She still has some orthopnea. There is no arrhythmia seen on the monitor. She denies any chest pain or discomfort. She is still coughing but much less. Still producing greenish sputum. There is no firing of her AICD. Her renal function is improved remarkably. PHYSICAL EXAMINATION: The patient is moderately obese. She appears to be chronically ill. Selected Entries 04/29/19 04/29/19 15:09 15:12 Temperature 98.0 F Temperature Oral Source Pulse Rate 66 Respiratory 18 Rate Blood Pressure 103/64 Blood Pressure 77 Mean BP Location Left Arm BP Position Sitting O2 Sat by Pulse 99 Oximetry Oxygen Flow 3.50 Rate Oxygen Delivery Nasal Cannula Method HEAD: Is atraumatic normocephalic. EYES: Pupils are equal round regular reactive to light. HEENT is negative. SKIN: There is no skin rashes or skin lesions. There is no particular ecchymosis. NECK: Is supple. There is mild JVD present. Carotids are equal there is no bruits. There is no lymphadenopathy. There is no goiter. There is no accessory muscle respiration use. Trachea central. LUNGS: There are a few scattered rhonchi. There is no wheezing. There is some coarse rales in the right lower lobe. There is bibasilar rales of CHF.. There is egophony in the right middle lobe. There is diminished air entry. On percussion there is hyperresonance. On palpation there is no chest wall tenderness. HEART: S1-S2 is heard. There is no S3 gallop. There is no S4 gallop. There is systolic murmur mitral regurgitation tricuspid regurgitation present. There is no aortic stenosis murmur. There is no aortic insufficiency murmur. There is no rub. ABDOMEN: Is obese. Nontender. There is no hepatosplenomegaly. Bowel sounds are well heard. There is no rebound guarding or rigidity. EXTREMITIES: Femorals are deep. Femorals are diminished. There is no femoral bruits. There is decreased leg pulses. There is mild pedal edema. hand quilter the patient is conscious awake alert oriented x3 with no focal deficits. PSYCHIATRIC: The patient judgment insight are intact. She does not appear to be agitated or anxious. The patient's 24-hour intake equals 1734 mL, and the patient's output is 1275 mL. IMPRESSION/RECOMMENDATION: 1. Acute on chronic respiratory failure. This is multifactorial secondary to the patient's acute on chronic systolic heart failure, sleep apnea and acute exacerbation of COPD and pneumonia, and acute on chronic renal failure. Continue IV Lasix Continue the patient only on dopamine drip and see if we can wean this off. 2. Acute on chronic systolic heart failure. Patient with LV ejection fraction of 25%. We will hold the patient's Entresto for now. We will hold the patient's beta-rip for now. The patient will be continued on IV Lasix. We will start the patient on dobutamine and increase as tolerated. We will watch for arrhythmias on dobutamine. . The patient's dobutamine drip has been discontinued. We will stop the patient's dopamine drip and continue the patient on midodrine. We will check a chest x-ray in the a.m. 4. Acute exacerbation COPD: Continue bronchodilators. This is improving 5. MRSA pneumonia: The patient has been treated with antibiotics for 6 weeks. The patient's blood culture has been negative so far for any growth of MRSA. 6. History of amiodarone toxicity. Would recommend avoiding amiodarone 7. Acute on chronic kidney disease: Watch renal function as we implement aggressive diuresis. The patient renal function is much improved and the GFR is 50 mL/min. 8. Cardiomyopathy with severely reduced LV ejection fraction. Her medications adjusted. Her beta-rip has been decreased to Toprol 25 mg XL once daily since she is taking by mouth. Entresto has been decreased to 49/51.. Will decrease the patient's isosorbide mononitrate from 60 mg to 30 mg p.o. daily. 9. Paroxysmal atrial fibrillation: Continue beta-rip. The patient Eliquis had to be stopped due to patient's anemia and also prior occult positive bloo blood in the stools. The patient later will be restarted on Eliquis. 10. History of ventricular tachycardia, The patient has an AICD placed. If there is recurrence of ventricular tachycardia or major ventricular ectopic activity then would start the patient on small dose of sotalol. Would avoid amiodarone. 11. Hypertension: Blood pressure well controlled, on current medications. 12. Coronary artery disease: History of [place] and history of coronary bypass graft surgery. No evidence of acute coronary syndrome/non-ST ST elevation [place] this admission. 13. Obstructive sleep apnea. Note patient has been noncompliant with CPAP. Most likely has significant pulmonary hypertension. 14. AICD placement: Note the patient's basal rate is around 60 bpm. If the patient's heart failure continues then would recommend increasing the basal heart rate to 80 bpm to help combat the heart failure along with diuretics. 15. MRSA bacteremia: Medications reviewed. Medications adjusted. Medical management and medical regimen discussed with the attending provider on the case. Medical decision making is of moderate complexity. 40 minutes spent with patient more than 50% of time spent in direct patient care. Will follow.
[2019-04-30 06:18] LABS: BLOOD UREA NITROGEN 16 mg/dL (7-20); CALCIUM 8.9 mg/dL (8.4-10.2); GLUCOSE 84 mg/dL (75-110); POTASSIUM 4.3 mmol/L (3.6-5.0)
[2019-04-30 06:24] LABS: CARBON DIOXIDE 30 mmol/L (22-30); CHLORIDE 106 mmol/L (98-107)
[2019-04-30 06:32] LABS: ANION GAP 4 (5-19)
[2019-04-30] MEDS: FUROSEMIDE INJ/PF 40 MG/4 ML SDV IV SCH (09:35)
[2019-04-30] MEDS: METOPROLOL SUCCINATE 25 MG TAB.SR.24H PO SCH ×2 (09:36→21:50)
[2019-04-30] MEDS: MIDODRINE HCL 5 MG TABLET PO SCH ×3 (09:36→17:16)
[2019-04-30] MEDS: ASPIRIN 81 MG TABLET, ENT COATED PO SCH (09:36)
[2019-04-30] MEDS: APIXABAN 2.5 MG TABLET PO SCH ×2 (09:36→17:16)
[2019-04-30] MEDS: SACUBITRIL/VALSARTAN 24 MG/26 MG TABLET PO SCH ×2 (09:36→17:16)
[2019-04-30] MEDS: BUSPIRONE HCL 10 MG TABLET PO SCH ×2 (09:36→17:16)
[2019-04-30] MEDS: LIDOCAINE 5% (700 MG) TRANSDERMAL ADH..PATCH TP SCH (09:36)
[2019-04-30] MEDS: PAROXETINE HCL 20 MG TABLET PO SCH (09:36)
[2019-04-30] MEDS: FAMOTIDINE 20 MG TABLET PO SCH ×2 (09:36→21:51)
[2019-04-30] MEDS: OXYCODONE-ACETAMINOPHEN 5-325 MG TABLET PO PRN ×3 (09:38→23:39)
[2019-04-30] MEDS: FUROSEMIDE 40 MG TABLET PO SCH ×2 (10:20→21:51)
--- NOTE | 2019-04-30 10:20 | RADIOLOGY REPORT (SQ) ---
EXAM DESCRIPTION: CHEST 2 VIEWS COMPLETED DATE/TIME: 04/30/2019 10:08 am REASON FOR STUDY: PNA /CHF COMPARISON: AP view of the chest from 04/28/2019 EXAM PARAMETERS: NUMBER OF VIEWS: Two views. TECHNIQUE: PA and lateral views of the chest were obtained.. RADIATION DOSE: NA LIMITATIONS: none FINDINGS: LUNGS AND PLEURA: Improved bilateral perihilar opacities. There is no sizable pleural eff usion or pneumothorax. MEDIASTINUM AND HILAR STRUCTURES: No mediastinal or hilar contour abnormality. HEART AND VASCULAR STRUCTURES: The cardiac silhouette is enlarged. BONES: No acute findings. HARDWARE: Status post median sternotomy. There is an intact left subclavian vein approach triple dayanara d ICD in place. There is also a right IJ approach central venous catheter in place. OTHER: No other finding. IMPRESSION: Improved bilateral perihilar opacities. TECHNICAL DOCUMENTATION: JOB ID: [id number] 2010 [employer]- All Rights Reserved Reading location - IP/workstation name: [email or web address]
[2019-04-30] MEDS: ALPRAZOLAM 0.5 MG TABLET PO PRN ×2 (16:07→22:16)
--- NOTE | 2019-04-30 16:53 | PDOC PROGRESS REPORT ---
Subjective Progress Note for:: 04/30/19 Subjective:: The patient is a 48-year-old female with past medical history of atrial fibrillation, CHF, CAD, ND, hyperlipidemia, hypertension, COPD, DM, GERD, depression, CKD who was admitted 04/23/19 with Acute on chronic respiratory failure secondary to CHF exacerbation. Patient was seen on afternoon rounds. She is found sitting up to the chair, comfortably, on nasal cannula at 2 L/min. She reports she is feeling much better today. Decreased fatigue, dyspnea, orthopnea. Does continue to have a productive cough, though with decreased sputum production. Pedal edema is r esolved. She does continue to have right foot pain but no swelling, edema, erythema, or bruising. Hopeful to discharge home in the next few days. She denies fever, chest pain, palpitations, abdominal pain, nausea, vomiting and diarrhea. She has no questions or concerns at this time No concerns per nursing. Reason For Visit: HEART FAILURE,DIABETES,CRF, INFECTION Physical Exam Vital Signs: Temp Pulse Resp BP Pulse Ox 98.0 F 60 18 110/69 97 04/30/19 11:16 04/30/19 14:00 04/30/19 11:16 04/30/19 11:16 04/30/19 11:16 Intake & Output 04/29/19 04/30/19 05/01/19 06:59 06:59 06:59 Intake Total 1734 1321 222 Output Total 1275 1295 225 Balance 459 26 -3 Weight 102.7 kg 95.4 kg General appearance: PRESENT: no acute distress, cooperative, obese, well- developed, well-nourished Head exam: PRESENT: atraumatic, normocephalic Eye exam: PRESENT: conjunctiva pink, EOMI, PERRLA. ABSENT: scleral icterus Mouth exam: PRESENT: moist, tongue midline Respiratory exam: PRESENT: clear to auscultation renu, decreased breath sounds - Bibasilar, symmetrical, unlabored, other - Supplemental oxygen via nasal cannula. ABSENT: rales, rhonchi, wheezes Cardiovascular exam: PRESENT: RRR, +S1, +S2. ABSENT: diastolic murmur, rubs, systolic murmur Pulses: PRESENT: normal dorsalis pedis pul Vascular exam: PRESENT: normal capillary refill GI/Abdominal exam: PRESENT: normal bowel sounds, soft. ABSENT: distended, guarding, mass, organolmegaly, rebound, tenderness Rectal exam: PRESENT: deferred Gentrourinary exam: ABSENT: indwelling catheter Extremities exam: PRESENT: full ROM. ABSENT: calf tenderness, clubbing, pedal edema Musculoskeletal exam: PRESENT: ambulatory Neurological exam: PRESENT: alert, awake, oriented to person, oriented to place, oriented to time, oriented to situation, CN II-XII grossly intact. ABSENT: m otor sensory deficit Psychiatric exam: PRESENT: appropriate affect, normal mood. ABSENT: homicidal ideation, suicidal ideation Skin exam: PRESENT: dry, intact, warm. ABSENT: cyanosis, rash Results Laboratory Results: 04/29/19 06:00 04/30/19 05:44 04/30/19 05:44 Sodium 140.2 Potassium 4.3 Chloride 106 Carbon Dioxide 30 Anion Gap 4 L BUN 16 Creatinine 1.22 Est GFR ( Amer) 57 L Glucose 84 Calcium 8.9 04/23/19 02:36 Troponin I 0.058 NT-Pro-B Natriuret Pep 03892 H Impressions: Abdomen/Pelvis CTA 04/23/19 04:49 IMPRESSION: No focal filling defect is seen to suggest a pulmonary embolism. There are groundglass mosaic changes which may reflect evidence of air trapping or distal small vessel or small airway disease. There are consolidative airspace opacities which may reflect superimposed infection. A chronic interstitial process is not fully excluded. The cardiac silhouette is enlarged. There is also evidence of pulmonary artery hypertension. No acute abdominal process is seen. Chest/Abdomen CTA 04/23/19 04:49 IMPRESSION: No focal filling defect is seen to suggest a pulmonary embolism. There are groundglass mosaic changes which may reflect evidence of air trapping or distal small vessel or small airway disease. There are consolidative airspace opacities which may reflect superimposed infection. A chronic interstitial process is not fully excluded. The cardiac silhouette is enlarged. There is also evidence of pulmonary artery hypertension. No acute abdominal process is seen. Foot X-Ray 04/28/19 00:00 IMPRESSION: NEGATIVE STUDY OF THE RIGHT FOOT. NO RADIOGRAPHIC EVIDENCE OF ACUTE INJURY. Chest X-Ray 04/29/19 00:00 IMPRESSION: Improved bilateral perihilar opacities. Assessment and Plan - Diagnosis (1) Acute worsening of stage 3 chronic kidney disease Is this a current diagnosis for this admission?: Yes Plan: Acute worsening has resolved Cr 1.65-> 2.55-> 1.61-> 1.34-> 1.22. Baseline 1.60-1.80 Secondary to acute CHF exacerbation and contrast dye for CTA. Will optimize cardiac output. We will hold on IV fluids secondary to acute CHF exacerbation with strong propensity for rapid volume overload. Strict I&O's. Avoid nephrotoxic medications as able. Follow-up chemistry. (2) Acute on chronic respiratory failure Qualifiers: Respiratory failure complication: hypoxia Qualified Code(s): J96.21 - Acute and chronic respiratory failure with hypoxia Is this a current diagnosis for this admission?: Yes Plan: Acute exacerbation is resolved; now on baseline oxygen requirement, with clear lung sounds, and ambulatory to restroom without increased work of breathing. CXR unchanged from previous; diffuse airspace disease CTA suggested chronic interstitial disease with possible superimposed infection. We will optimize cardiac output. Continue supplemental oxygen and BiPAP as needed to maintain saturations. Continue scheduled and as needed nebulizer treatments. Incentive spirometer and flutter valve to bedside. Sputum culture not obtained; decreased sputum production. (3) Acute on chronic systolic congestive heart failure, NYHA class 3 Is this a current diagnosis for this admission?: Yes Plan: The patient is admitted to [facility] on continuous cardiac telemetry. Cardiology is consulted; medications per Dr. Ragsdale's expertise Dobutamin gtt per Dr. Ragsdale. Has been discontinued Dopamine drip per Dr. Ragsdale has been discontinued. Home medication regiment includes Imdur, Toprol, Entresto, Aspirin, and Eliqis; cardiology making adjustments. Furosemide for diuresis as indicated. Has been started on midodrine; now tolerating antihypertensives. Cardiac diet. Daily weights, strict I&O's. Discussed with Dr. Ragsdale today; he has resumed her home medication regiment. Blood pressure continues to be acceptable with the addition of midodrine. She i s off pressor support. He anticipates she will be stable for discharge within the next 2 to 3 days. (4) CAD (coronary artery disease) Qualifiers: Coronary Disease-Associated Artery/Lesion type: [place] artery [place] vs. transplanted heart: [place] heart Associated angina: without angina Qualified Code(s): I25.10 - Atherosclerotic heart disease of [place] coronary artery with out angina pectoris Is this a current diagnosis for this admission?: Yes Plan: Aspirin, Eliquis, atorvastatin, Imdur and anti-hypertensives as above. (5) Depression Qualifiers: Depression Type: major depressive disorder Major depression recurrence: recurrent Active/Remission status: currently active Major depression episode severity: moderate Qualified Code(s): F33.1 - Major depressive disorder, recurrent, moderate Is this a current diagnosis for this admission?: Yes Plan: Continue home dose Paxil. Melatonin nightly. (6) Hyperlipidemia Qualifiers: Hyperlipidemia type: unspecified Qualified Code(s): E78.5 - Hyperlipidemia, unspecified Is this a current diagnosis for this admission?: Yes Plan: Cardiac diet. Continue home dose atorvastatin. (7) Hypertension Qualifiers: Hypertension type: essential hypertension Qualified Code(s): I10 - Essential (primary) hypertension Is this a current diagnosis for this admission?: Yes Plan: Improved blood pressures today. Medications per Dr. Ragsdale (8) Ischemic cardiomyopathy with implantable cardioverter-defibrillator (ICD) Is this a current diagnosis for this admission?: Yes Plan: Cardiology is consulted; primary management per Dr. Martin. Recently completed 6 weeks course of IV antibiotics for MRSA bacteremia. Repeat blood cultures are negative. (9) Pneumonia Qualifiers: Pneumonia type: due to methicillin-resistant Staphylococcus aureus (MRSA) Is this a current diagnosis for this admission?: Yes Plan: Resolved. Recently completed full course of IV antibiotics for MRSA pneumonia. Repeat CTA this admission is suggestive of chronic interstitial disease with superimposed infection. Possibly residual from recent PNA and not reflective of active/recurrent infection. CXR unchanged. WBCs are normal patient is afebrile, currently maintaining oxygen saturations with clear lung sounds on 2 L via nasal cannula. Have discontinued antibiotics and will continue to observe closely. Sputum culture pending. (10) Chronic pain Qualifiers: Chronic pain type: other chronic pain Qualified Code(s): G89.29 - Other chronic pain Is this a current diagnosis for this admission?: Yes Plan: Opiate dependent chronic pain. We will continue oxycodone 5 mg every 6 hours as needed as blood pressure allows. Lidoderm patches. Tylenol as needed. Heating pad. - Time Time Spent with patient: 25-34 minutes
--- NOTE | 2019-04-30 20:45 | Progress Note ---
Provider Note Provider Note: CARDIOLOGY PROGRESS NOTE by Dr. Griselda Martin on 04/30/2019. SUBJECTIVE: The patient is making gradual improvement. She is afebrile. She denies any chest pain discomfort. There is no shortness of breath at rest. She still has orthopnea but this is chronic. There is no PND. There is no atrial or ventricular arrhythmias seen and especially no recurrence of atrial fibrillation or flutter. There is no firing of the AICD. There is no bleeding on Eliquis. There is no TIA CVA symptoms. The patient's urine output is picked up. Her blood pressure is also good on current dose of midodrine. The patient renal function is improved. A GFR has come up to 57 mL/min. Creatinine is come down to 1.22. PHYSICAL EXAMINATION: The patient is mildly obese. In no acute distress. Selected Entries 04/30/19 15:53 Temperature 98.0 F Temperature Oral Source Pulse Rate 59 L Respiratory 18 Rate Blood Pressure 120/74 Blood Pressure 89 Mean BP Location Left Arm BP Position Sitting O2 Sat by Pulse 99 Oximetry Oxygen Flow 3.00 Rate Oxygen Delivery Nasal Cannula Method HEAD: Is atraumatic normocephalic. EYES: Pupils are equal round regular reactive to light. HEENT is negative. SKIN: There is no skin rashes or skin lesions. There is no particular ecchymosis. NECK: Is supple. There is mild JVD present. Carotids are equal there is no bruits. There is no lymphadenopathy. There is no goiter. There is no accessory muscle respiration use. Trachea central. LUNGS: There are a few scattered rhonchi. There is no wheezing. There is some coarse rales in the right lower lobe. There is bibasilar rales of CHF.. There is egophony in the right middle lobe. There is diminished air entry. On percussion there is hyperresonance. On palpation there is no chest wall tenderness. HEART: S1-S2 is heard. There is no S3 gallop. There is no S4 gallop. There is systolic murmur mitral regurgitation tricuspid regurgitation present. There is no aortic stenosis murmur. There is no aortic insufficiency murmur. There is no rub. ABDOMEN: Is obese. No ntender. There is no hepatosplenomegaly. Bowel sounds are well heard. There is no rebound guarding or rigidity. EXTREMITIES: Femorals are deep. Femorals are diminished. There is no femoral bruits. There is decreased leg pulses. There is mild pedal edema. plexiglas former the patient is conscious awake alert oriented x3 with no focal deficits. PSYCHIATRIC: The patient judgment insight are intact. She does not appear to be agitated or anxious. The patient's 24-hour intake equals 65444 mL, and the patient's output is 1295 mL. Labs- All tests 24 hr 04/30/19 05:44 Sodium 140.2 Potassium 4.3 Chloride 106 Carbon Dioxide 30 Anion Gap 4 L BUN 16 Creatinine 1.22 Est GFR ( Amer) 57 L Est GFR (MDRD) Non-Af 47 L Glucose 84 Calcium 8.9 Abdomen/Pelvis CTA 04/23/19 04:49 IMPRESSION: No focal filling defect is seen to suggest a pulmonary embolism. There are groundglass mosaic changes which may reflect evidence of air trapping or distal small vessel or small airway disease. There are consolidative airspace opacities which may reflect superimposed infection. A chronic interstitial process is not fully excluded. The cardiac silhouette is enlarged. There is also evidence of pulmonary artery hypertension. No acute abdominal process is seen. Chest/Abdomen CTA 04/23/19 04:49 IMPRESSION: No focal filling defect is seen to suggest a pulmonary embolism. There are groundglass mosaic changes which may reflect evidence of air trapping or distal small vessel or small airway disease. There are consolidative airspace opacities which may reflect superimposed infection. A chronic interstitial process is not fully excluded. The cardiac silhouette is enlarged. There is also evidence of pulmonary artery hypertension. No acute abdominal process is seen. Chest X-Ray 04/24/19 00:00 IMPRESSION: Satisfactory placement of central venous catheter copyright 2011 [employer]- All Rights Reserved Chest X-Ray 04/28/19 00:00 IMPRESSION: NO SIGNIFICANT INTERVAL CHANGE. Foot X-Ray 04/28/19 00:00 IMPRESSION: NEGATIVE STUDY OF THE RIGHT FOOT. NO RADIOGRAPHIC EVIDENCE OF ACUTE INJURY. Chest X-Ray 04/29/19 00:00 IMPRESSION: Improved bilateral perihilar opacities. IMPRESSION/RECOMMENDATION: 1. Acute on chronic respiratory failure. This is multifactorial secondary to the patient's acute on chronic systolic heart failure, sleep apnea and acute exacerbation of COPD and pneumonia, and acute on chronic renal failure. Continue IV Lasix Continue the patient only on dopamine drip and see if we can wean this off. 2. Acute on chronic systolic heart failure. Patient with LV ejection fraction of 25%. We will hold the patient's Entresto for now. We will hold the patient's beta-rip for now. The patient has been switched to p.o. Lasix. Inotropic support has been withdrawn. The patient's blood pressure is stable. Will increase the patient's Entresto. Chest x-ray shows no evidence of heart failure. 4. Acute exacerbation COPD: Continue bronchodilators. This is improving 5. MRSA pneumonia: The patient has been treated with antibiotics for 6 weeks. The patient's blood culture has been negative so far for any growth of MRSA. Chest x-ray shows improvement in the patient's pneumonia. 6. History of amiodarone toxicity. Would recommend avoiding amiodarone 7. Acute on chronic kidney disease: Watch renal function as we implement aggressive diuresis. The patient renal function is much improved and the GFR is 57 mL/min. 8. Cardiomyopathy with severely reduced LV ejection fraction. Her medications adjusted. Her beta-rip has been decreased to Toprol 25 mg XL once daily since she is taking by mouth. Will increase the patient's Entresto.. Will decrease the patient's isosorbide mononitrate from 60 mg to 30 mg p.o. daily. 9. Paroxysmal atrial fibrillation: Continue beta-rip. The patient Eliquis had to be stopped due to patient's anemia and also prior occult positive bloo blood in the stools. The patient is on Eliquis. 10. History of ventricular tachycardia, The patient has an AICD placed. If there is recurrence of ventricular tachycardia or major ventricular ectopic activity then would start the patient on small dose of sotalol. Would avoid amiodarone. 11. Hypertension: Blood pressure well controlled, on current medications. 12. Coronary artery disease: History of [place] and history of coronary bypass graft surgery. No evidence of acute coronary syndrome/non-ST ST elevation [place] this admission. 13. Obstructive sleep apnea. Note patient has been noncompliant with CPAP. Most likely has significant pulmonary hypertension. 14. AICD placement: Note the patient's basal rate is around 60 bpm. If the patient's heart failure continues then would recommend increasing the basal heart rate to 80 bpm to help combat the heart failure along with diuretics. 15. MRSA bacteremia: Medications reviewed. Medications adjusted. Medical management and medical regimen discussed with the attending provider on the case. Medical decision making is of moderate complexity. 40 minutes spent with patient more than 50% of time spent in direct patient care. Will follow. Hopefully will discharge the patient in 48 to 72 hours.
[2019-04-30] MEDS: SENNOSIDES/DOCUSATE 8.6-50 MG 1 EACH TABLET PO SCH (21:43)
[2019-04-30] MEDS: ATORVASTATIN CALCIUM 80 MG TABLET PO SCH (21:50)
[2019-04-30] MEDS: MELATONIN 5 MG TABLET PO SCH (21:50)
[2019-05-01 05:17] LABS: HEMATOCRIT 27.6 % (36.0-47.0); HEMOGLOBIN 9.2 g/dL (12.0-15.5); MEAN CORPUSCULAR HEMOGLOBIN 30.2 pg (27.0-33.4); MEAN CORPUSCULAR HGB CONC 33.5 g/dL (32.0-36.0); MEAN CORPUSCULAR VOLUME 90 fl (80-97); PLATELET COUNT 239 10^3/uL (150-450); RED BLOOD COUNT 3.06 10^6/uL (3.72-5.28); RED CELL DISTRIBUTION WIDTH 17.4 % (11.5-14.0); WHITE BLOOD COUNT 4.4 10^3/uL (4.0-10.5)
[2019-05-01 05:45] LABS: ANION GAP 8 (5-19); BLOOD UREA NITROGEN 19 mg/dL (7-20); CALCIUM 8.8 mg/dL (8.4-10.2); CARBON DIOXIDE 31 mmol/L (22-30); CHLORIDE 104 mmol/L (98-107); GLUCOSE 98 mg/dL (75-110); POTASSIUM 4.1 mmol/L (3.6-5.0)
[2019-05-01] MEDS: LIDOCAINE 5% (700 MG) TRANSDERMAL ADH..PATCH TP SCH (09:04)
[2019-05-01] MEDS: METOPROLOL SUCCINATE 25 MG TAB.SR.24H PO SCH ×2 (09:09→22:37)
[2019-05-01] MEDS: APIXABAN 2.5 MG TABLET PO SCH ×2 (09:09→17:11)
[2019-05-01] MEDS: PAROXETINE HCL 20 MG TABLET PO SCH (09:09)
[2019-05-01] MEDS: FAMOTIDINE 20 MG TABLET PO SCH ×2 (09:09→22:37)
[2019-05-01] MEDS: ASPIRIN 81 MG TABLET, ENT COATED PO SCH (09:09)
[2019-05-01] MEDS: ALPRAZOLAM 0.5 MG TABLET PO PRN ×3 (09:09→22:37)
[2019-05-01] MEDS: FUROSEMIDE 40 MG TABLET PO SCH (09:09)
[2019-05-01] MEDS: BUSPIRONE HCL 10 MG TABLET PO SCH ×2 (09:09→17:11)
[2019-05-01] MEDS: MIDODRINE HCL 5 MG TABLET PO SCH ×3 (09:09→17:11)
[2019-05-01] MEDS: OXYCODONE-ACETAMINOPHEN 5-325 MG TABLET PO PRN ×3 (09:10→22:38)
[2019-05-01] MEDS: SACUBITRIL/VALSARTAN 49 MG/51 MG TABLET PO SCH ×2 (09:12→17:11)
--- NOTE | 2019-05-01 10:28 | PDOC PROGRESS REPORT ---
Subjective Progress Note for:: 05/01/19 Subjective:: The patient is sleeping with her BiPAP in place. Awakens easily and wants to know when she can go home. She reports feeling much better than on admission. She has no complaints today. Reason For Visit: HEART FAILURE,DIABETES,CRF, INFECTION Physical Exam Vital Signs: Temp Pulse Resp BP Pulse Ox 97.7 F 61 15 104/58 L 99 05/01/19 07:37 05/01/19 07:37 05/01/19 07:37 05/01/19 07:37 05/01/19 07:37 Intake & Output 04/30/19 05/01/19 05/02/19 06:59 06:59 06:59 Intake Total 1321 1889 Output Total 1295 1175 Balance 26 714 Weight 95.4 kg 104.5 kg General appearance: PRESENT: no acute distress, cooperative, well-developed Head exam: PRESENT: atraumatic, normocephalic Ear exam: PRESENT: normal external ear exam. ABSENT: bleeding, drainage Mouth exam: PRESENT: other - BiPAP mask in place Neck exam: PRESENT: full ROM. ABSENT: carotid bruit, lymphadenopathy Respiratory exam: PRESENT: clear to auscultation renu, symmetrical, unlabored. ABSENT: accessory muscle use, rales, rhonchi, tachypnea, wheezes Cardiovascular exam: PRESENT: RRR, +S1, +S2, systolic murmur, other - Pacemaker driven by telemetry GI/Abdominal exam: PRESENT: normal bowel sounds, soft. ABSENT: distended, guarding, tenderness Rectal exam: PRESENT: deferred Extremities exam: PRESENT: full ROM. ABSENT: joint swelling, pedal edema, tenderness Musculoskeletal exam: PRESENT: ambulatory, normal inspection. ABSENT: deformity Neurological exam: PRESENT: alert, awake, oriented to person, oriented to place, oriented to time, oriented to situation, CN II-XII grossly intact Psychiatric exam: PRESENT: appropriate affect, normal mood. ABSENT: agitated, anxious, unusual affect Focused psych exam: ABSENT: delusional, paranoid, pressured speech, restlessness Skin exam: PRESENT: dry, normal color, warm. ABSENT: rash Results Laboratory Results: 05/01/19 04:42 05/01/19 04:42 05/01/19 05/01/19 04:42 04:42 WBC 4.4 RBC 3.06 L Hgb 9.2 L Hct 27.6 L MCV 90 MCH 30.2 MCHC 33.5 RDW 17.4 H Plt Count 239 Sodium 142.8 Potassium 4.1 Chloride 104 Carbon Dioxide 31 H Anion Gap 8 BUN 19 Creatinine 1.44 H Est GFR ( Amer) 47 L Glucose 98 Calcium 8.8 04/23/19 02:36 Troponin I 0.058 NT-Pro-B Natriuret Pep 78694 H Impressions: Abdomen/Pelvis CTA 04/23/19 04:49 IMPRESSION: No focal filling defect is seen to suggest a pulmonary embolism. There are groundglass mosaic changes which may reflect evidence of air trapping or distal small vessel or small airway disease. There are consolidative airspace opacities which may reflect superimposed infection. A chronic interstitial process is not fully excluded. The cardiac silhouette is enlarged. There is also evidence of pulmonary artery hypertension. No acute abdominal process is seen. Chest/Abdomen CTA 04/23/19 04:49 IMPRESSION: No focal filling defect is seen to suggest a pulmonary embolism. There are groundglass mosaic changes which may reflect evidence of air trapping or distal small vessel or small airway disease. There are consolidative airspace opacities which may reflect superimposed infection. A chronic interstitial process is not fully excluded. The cardiac silhouette is enlarged. There is also evidence of pulmonary artery hypertension. No acute abdominal process is seen. Foot X-Ray 04/28/19 00:00 IMPRESSION: NEGATIVE STUDY OF THE RIGHT FOOT. NO RADIOGRAPHIC EVIDENCE OF ACUTE INJURY. Chest X-Ray 04/29/19 00:00 IMPRESSION: Improved bilateral perihilar opacities. Assessment and Plan - Diagnosis (1) Acute on chronic respiratory failure Qualifiers: Respiratory failure complication: hypoxia Qualified Code(s): J96.21 - Acute and chronic respiratory failure with hypoxia Is this a current diagnosis for this admission?: Yes (2) Pneumonia Qualifiers: Pneumonia type: due to unspecified organism Laterality: bilateral Lung location: unspecified part of lung Qualified Code(s): J18.9 - Pneumonia, unspecified organism Is this a current diagnosis for this admission?: Yes (3) Acute on chronic systolic congestive heart failure, NYHA class 3 Is this a current diagnosis for this admission?: Yes (4) CAD (coronary artery disease) Qualifiers: Coronary Disease-Associated Artery/Lesion type: [place] artery [place] vs. transplanted heart: [place] heart Associated angina: without angina Qualified Code(s): I25.10 - Atherosclerotic heart disease of [place] coronary artery without angina pectoris Is this a current diagnosis for this admission?: Yes (5) CKD (chronic kidney disease) Qualifiers: Chronic kidney disease stage: stage 3 (moderate) Qualified Code(s): N18.3 - Chronic kidney disease, stage 3 (moderate) Is this a current diagnosis for this admission?: Yes (6) Depression Qualifiers: Depression Type: major depressive disorder Major depression recurrence: recurrent Active/Remission status: currently active Major depression episode severity: moderate Qualified Code(s): F33.1 - Major depressive disorder, recurrent, moderate Is this a current diagnosis for this admission?: Yes (7) Hyperlipidemia Qualifiers: Hyperlipidemia type: unspecified Qualified Code(s): E78.5 - Hyperlipidemia, unspecified Is this a current diagnosis for this admission?: Yes (8) Hypertension Qualifiers: Hypertension type: essential hypertension Qualified Code(s): I10 - Essential (primary) hypertension Is this a current diagnosis for this admission?: Yes (9) Ischemic cardiomyopathy with implantable cardioverter-defibrillator (ICD) Is this a current diagnosis for this admission?: Yes - Plan Summary Summary: I did speak to Dr. Ragsdale. He feels the patient is stable for discharge. Her congestive heart failure is much improved with courses of intravenous dobutamine and dopamine. Her current cardiac regimen appears to be keeping her stable. Chronic renal failure-she did have a bump possibly related to diuresis. Her creatinine appears to be back at her baseline. Coronary artery disease has been stable with no evidence of acute coronary syndrome The current regimen of Entresto, furosemide and metoprolol requires midodrine to keep adequate blood pressure control while treating her heart failure and coronary artery disease. The patient has been stable on this regimen. We will continue BuSpar and Paxil for her depression. She will remain on statin therapy. She did receive antibiotic therapy for possible pneumonia. Currently off of antibiotics. Will monitor closely. White blood cell count has been normal. - Time Time Spent with patient: 15-24 minutes Medications reviewed and adjusted accordingly: Yes Anticipated discharge: Home Within: within 48 hours
--- NOTE | 2019-05-01 16:34 | Progress Note ---
Provider Note Provider Note: CARDIOLOGY PROGRESS NOTE by Dr. Griselda Martin on 05/01/2019. OBJECTIVE: The patient states she is feels better. There is no shortness of breath at rest. She also states his orthopnea is resolved. There is no chest pain or PND. There is no bleeding on Eliquis. There is no recurrence of atrial fibrillation. There is no ventricular arrhythmia seen on the monitor. There is no firing of her AICD. The patient's renal function slightly deteriorated. Whether this is due to the increase in his her Entresto versus overdiuresis. Will decrease the patient's Lasix to 40 mg p.o. daily. Hopefully the patient can be discharged home the next 24 to 48 hours. PHYSICAL EXAMINATION: The patient is moderately obese. In no acute distress. Selected Entries 05/01/19 11:33 Temperature 97.9 F Temperature Axillary Source Pulse Rate 60 Respiratory 17 Rate Blood Pressure 98/60 L Blood Pressure 72 Mean BP Location Left Arm BP Position Supine O2 Sat by Pulse 99 Oximetry Oxygen Delivery Bipap Method Percent of 40 Oxygen HEAD: Is atraumatic normocephalic. EYES: Pupils are equal round regular reactive to light. HEENT is negative. SKIN: There is no skin rashes or skin lesions. There is no particular ecchymosis. NECK: Is supple. There is mild JVD present. Carotids are equal there is no bruits. There is no lymphadenopathy. There is no goiter. There is no accessory muscle respiration use. Trachea central. LUNGS: There are a few scattered rhonchi. There is no wheezing. There is some coarse rales in the right lower lobe. There is bibasilar rales of CHF.. There is egophony in the right middle lobe. There is diminished air entry. On percussion there is hyperresonance. On palpation there is no chest wall tenderness. HEART: S1-S2 is heard. There is no S3 gallop. There is no S4 gallop. There is systolic murmur mitral regurgitation tricuspid regurgitation present. There is no aortic stenosis murmur. There is no aortic insufficiency murmur. There is no rub. ABDOMEN: Is obese. Nontender. There is no hepatosplenomegaly. Bowel sounds are well heard. There is no rebound guarding or rigidity. EXTREMITIES: Femorals are deep. Femorals are diminished. There is no femoral bruits. There is decreased leg pulses. There is mild pedal edema. marker maker the patient is conscious awake alert oriented x3 with no focal deficits. PSYCHIATRIC: The patient judgment insight are intact. She does not appear to be agitated or anxious. The patient's 24-hour intake equals 1889 mL, and the patient's output is 1175 mL. Labs- All tests 24 hr 05/01/19 05/01/19 04:42 04:42 WBC 4.4 RBC 3.06 L Hgb 9.2 L Hct 27.6 L MCV 90 MCH 30.2 MCHC 33.5 RDW 17.4 H Plt Count 239 Sodium 142.8 Potassium 4.1 Chloride 104 Carbon Dioxide 31 H Anion Gap 8 BUN 19 Creatinine 1.44 H Est GFR ( Amer) 47 L Est GFR (MDRD) Non-Af 39 L Glucose 98 Calcium 8.8 Abdomen/Pelvis CTA 04/23/19 04:49 IMPRESSION: No focal filling defect is seen to suggest a pulmonary embolism. There are groundglass mosaic changes which may reflect evidence of air trapping or distal small vessel or small airway disease. There are consolidative airspace opacities which may reflect superimposed infection. A chronic interstitial process is not fully excluded. The cardiac silhouette is enlarged. There is also evidence of pulmonary artery hypertension. No acute abdominal process is seen. Chest/Abdomen CTA 04/23/19 04:49 IMPRESSION: No focal filling defect is seen to suggest a pulmonary embolism. There are groundglass mosaic changes which may reflect evidence of air trapping or distal small vessel or small airway disease. There are consolidative airspace opacities which may reflect superimposed infection. A chronic interstitial process is not fully excluded. The cardiac silhouette is enlarged. There is also evidence of pulmonary artery hypertension. No acute abdominal process is seen. Chest X-Ray 04/24/19 00:00 IMPRESSION: Satisfactory placement of central venous catheter copyright 2011 [employer]- All Rights Reserved Chest X-Ray 04/28/19 00:00 IMPRESSION: NO SIGNIFICANT INTERVAL CHANGE. Foot X-Ray 04/28/19 00:00 IMPRESSION: NEGATIVE STUDY OF THE RIGHT FOOT. NO RADIOGRAPHIC EVIDENCE OF ACUTE INJURY. Chest X-Ray 04/29/19 00:00 IMPRESSION: Improved bilateral perihilar opacities. IMPRESSION/RECOMMENDATION: 1. Acute on chronic respiratory failure. This is multifactorial secondary to the patient's acute on chronic systolic heart failure, sleep apnea and acute exacerbation of COPD and pneumonia, and acute on chronic renal failure. Continue IV Lasix Continue the patient only on dopamine drip and see if we can wean this off. 2. Acute on chronic systolic heart failure. Patient with LV ejection fraction of 25%. We will hold the patient's Entresto for now. We will hold the patient's beta-rip for now. The patien. Inotropic support has been withdrawn. The patient's blood pressure is stable. She is tolerating Entresto at 49/51 p.o. twice daily.. Chest x-ray day before yesterday shows no evidence of heart failure. 4. Acute exacerbation COPD: Continue bronchodilators. This has resolved. 5. MRSA pneumonia: The patient has been treated with antibiotics for 6 weeks. The patient's blood culture has been negative so far for any growth of MRSA. Chest x-ray shows improvement in the patient's pneumonia. 6. History of amiodarone toxicity. Would recommend avoiding amiodarone 7. Acute on chronic kidney disease: Watch renal function as we implement aggressive diuresis. The patient renal function is much improved and the GFR is 44 mL/min. Hence will decrease the patient's Lasix to 40 mg p.o. daily. 8. Cardiomyopathy with severely reduced LV ejection fraction. Her medications adjusted. Her beta-rip has been decreased to Toprol 25 mg XL once daily since she is taking by mouth. Will increase the patient's Entresto.. Will decrease the patient's isosorbide mononitrate from 60 mg to 30 mg p.o. daily. 9. Paroxysmal atrial fibrillation: Continue beta-rip. The patient Eliquis had to be stopped due to patient's anemia and also prior occult positive bloo blood in the stools. The patient is on Eliquis. 10. History of ventricular tachycardia, The patient has an AICD placed. If there is recurrence of ventricular tachycardia or major ventricular ectopic acti vity then would start the patient on small dose of sotalol. Would avoid amiodarone. 11. Hypertension: Blood pressure well controlled, on current medications. 12. Coronary artery disease: History of PR and history of coronary bypass graft surgery. No evidence of acute coronary syndrome/non-ST ST elevation PR this admission. 13. Obstructive sleep apnea. Note patient has been noncompliant with CPAP. Most likely has significant pulmonary hypertension. 14. AICD placement: Note the patient's basal rate is around 60 bpm. If the patient's heart failure continues then would recommend increasing the basal heart rate to 80 bpm to help combat the heart failure along with diuretics. 15. MRSA bacteremia: Medications reviewed. Medications adjusted. Medical management and medical regimen discussed with the attending provider on the case. Medical decision making is of moderate complexity. 40 minutes spent with patient more than 50% of time spent in direct patient care. Will follow. Hopefully will discharge the patient in 24-48 hours.
[2019-05-01] MEDS: SENNOSIDES/DOCUSATE 8.6-50 MG 1 EACH TABLET PO SCH (22:37)
[2019-05-01] MEDS: ATORVASTATIN CALCIUM 80 MG TABLET PO SCH (22:37)
[2019-05-01] MEDS: MELATONIN 5 MG TABLET PO SCH (22:37)
[2019-05-02 08:38] VITALS: BP 108/57
[2019-05-02] MEDS: LIDOCAINE 5% (700 MG) TRANSDERMAL ADH..PATCH TP SCH (09:17)
[2019-05-02] MEDS: APIXABAN 2.5 MG TABLET PO SCH (09:21)
[2019-05-02] MEDS: ALPRAZOLAM 0.5 MG TABLET PO PRN (09:21)
[2019-05-02] MEDS: ASPIRIN 81 MG TABLET, ENT COATED PO SCH (09:21)
[2019-05-02] MEDS: FAMOTIDINE 20 MG TABLET PO SCH (09:21)
[2019-05-02] MEDS: BUSPIRONE HCL 10 MG TABLET PO SCH (09:21)
[2019-05-02] MEDS: SACUBITRIL/VALSARTAN 49 MG/51 MG TABLET PO SCH (09:21)
[2019-05-02] MEDS: OXYCODONE-ACETAMINOPHEN 5-325 MG TABLET PO PRN (09:22)
[2019-05-02] MEDS: MIDODRINE HCL 5 MG TABLET PO SCH (09:22)
[2019-05-02] MEDS: PAROXETINE HCL 20 MG TABLET PO SCH (09:22)
[2019-05-02] MEDS: METOPROLOL SUCCINATE 25 MG TAB.SR.24H PO SCH (09:22)
[2019-05-02] MEDS ORDERED: FUROSEMIDE 40 MG TABLET PO SCH (10:00)
--- NOTE | 2019-05-02 10:08 | PDOC DISCHARGE SUMMARY ---
Impression - Admit/DC Date/PCP Admission Date/Primary Care Provider: 04/23/19 07:58 Discharge Date: 05/02/19 - Discharge Diagnosis (1) Acute on chronic respiratory failure Is this a current diagnosis for this admission?: Yes (2) Pneumonia Is this a current diagnosis for this admission?: Yes (3) Acute on chronic systolic congestive heart failure, NYHA class 3 Is this a current diagnosis for this admission?: Yes (4) CAD (coronary artery disease) Is this a current diagnosis for this admission?: Yes (5) CKD (chronic kidney disease) Is this a current diagnosis for this admission?: Yes (6) Depression Is this a current diagnosis for this admission?: Yes (7) Hyperlipidemia Is this a current diagnosis for this admission?: Yes (8) Hypertension Is this a current diagnosis for this admission?: Yes (9) Ischemic cardiomyopathy with implantable cardioverter-defibrillator (ICD) Is this a current diagnosis for this admission?: Yes - Assessment Summary: I did speak to Dr. Ragsdale. He feels the patient is stable for discharge. Her congestive heart failure is much improved with courses of intravenous dobutamine and dopamine. Her current cardiac regimen appears to be keeping her stable. Chronic renal failure-she did have a bump possibly related to diuresis. Her creatinine appears to be back at her baseline. Coronary artery disease has been stable with no evidence of acute coronary syndrome The current regimen of Entresto, furosemide and metoprolol requires midodrine to keep adequate blood pressure control while treating her heart failure and coronary artery disease. The patient has been stable on this regimen. We will continue BuSpar and Paxil for her depression. She will remain on statin therapy. She did receive antibiotic therapy for possible pneumonia. Currently off of antibiotics. Will monitor closely. White blood cell count has been normal. - Additional Information Resuscitation Status: Do Not Resuscitate Discharge Diet: Cardiac, Diabetic Discharge Activity: Activity As Tolerated, Balance Activity w/Rest, Weigh Daily Referrals: ANGIE CARRERO MD [ACTIVE STAFF] - 05/08/19 12:00 pm (left a message to call ([phone])) YI SANCHEZ DO [NO LOCAL MD] - 05/07/19 4:00 pm Prescriptions: Sacubitril/Valsartan [Entresto 49 mg/51 mg Tablet] 1 tab PO BID #30 tablet Furosemide [Lasix 40 mg Tablet] 40 mg PO DAILY 15 Days #15 tablet Lidocaine [Lidoderm 5% (700 mg) Transdermal Patch] 2 patch TP DAILY 15 Days #30 adh..patch Midodrine HCl 10 mg PO TID 15 Days #45 tablet Home Medications: Alprazolam [Xanax 0.5 mg Tablet] 0.5 mg PO Q6HP PRN 02/08/19 Aspirin [Ecotrin 81 mg EC Tablet] 81 mg PO DAILY 02/08/19 Atorvastatin Calcium [Lipitor 80 mg Tablet] 80 mg PO QHS 02/08/19 Buspirone HCl [Buspar 10 mg Tablet] 10 mg PO BID 02/08/19 Paroxetine HCl [Paxil 20 mg Tablet] 20 mg PO DAILY 02/08/19 Famotidine [Pepcid 20 mg Tablet] 20 mg PO Q12 #60 tablet 03/23/19 Isosorbide Mononitrate [Imdur 30 mg Tablet.er] 30 mg PO DAILY #30 tab.er.24h 03/23/19 Melatonin [Melatonin 5 mg Tablet] 10 mg PO QHS #30 tablet 03/23/19 Sennosides/Docusate 8.6-50 mg [Senna Plus Tablet] 1 each PO QHS #30 tablet 03/23/19 Apixaban [Eliquis 2.5 mg Tablet] 2.5 mg PO BID #60 tablet 04/16/19 Metoprolol Succinate [Toprol Xl 25 mg Tab.sr] 25 mg PO Q12 #60 tab.sr.24h Nitroglycerin [Nitrostat 0.4 mg (1/150 Gr) Tabs 25/Bottle] 0.4 mg SL Q5MP PRN #1 bottle 04/16/19 Furosemide [Lasix 40 mg Tablet] 40 mg PO DAILY 15 Days #15 tablet 05/02/19 Lidocaine [Lidoderm 5% (700 mg) Transdermal Patch] 2 patch TP DAILY 15 Days #30 adh..patch 05/02/19 Midodrine HCl 10 mg PO TID 15 Days #45 tablet 05/02/19 Sacubitril/Valsartan [Entresto 49 mg/51 mg Tablet] 1 tab PO BID #30 tablet 05/02/19 History of Present Illiness History of Present Illness: FRANKI DEL ROSARIO is a 48 year old female well-known to the hospitalist service. She states that 2 days ago she began to have subacute onset of shortness of breath. She noted that her legs are more swollen. She denies fever or chills. She denies dietary indiscretion. She states that she has been consistent with her medications. She does have multiple admissions for her heart failure. Her last echocardiogram revealed an ejection fraction in the 20 to 25% range. She will be admitted to [facility] on the hospitalist service. Dr. Carrero will be consulting. Will monitor on telemetry as well as monitoring her intake and output. We will increase her diuretics as well. The chest CT scan could not distinguish between failure or pneumonia. She may require antibiotic therapy as well. Hospital Course Hospital Course: The patient had a very prolonged and complex hospital course. Initially she was treated for pneumonia. This, along with her acute on chronic systolic heart failure, triggered acute respiratory failure with hypoxia. Her heart failure was the more primary funeral driver for admission. She required intravenous dobutamine and dopamine. To achieve an acceptable regimen for her heart failure she requires midodrine 10 mg 3 times a day. She did complete antibiotic therapy. Cardiology is satisfied with her current clinical status. She will be discharged home on the regimen above. Physical Exam Vital Signs: Temp Pulse Resp BP Pulse Ox 97.2 F 60 16 108/57 L 99 05/02/19 09:57 05/02/19 09:57 05/02/19 09:57 05/02/19 09:57 05/02/19 09:57 Intake & Output 05/01/19 05/02/19 05/03/19 06:59 06:59 06:59 Intake Total 1889 1105 Output Total 1175 3600 Balance 714 -2495 Weight 104.5 kg 105.6 kg General appearance: PRESENT: no acute distress, other - Resting in bed wearing her BiPAP Head exam: PRESENT: atraumatic, normocephalic Ear exam: PRESENT: normal external ear exam. ABSENT: bleeding, drainage Respiratory exam: PRESENT: clear to auscultation renu, symmetrical, unlabored. ABSENT: prolonged expiratory phas, rales, rhonchi, tachypnea, wheezes Cardiovascular exam: PRESENT: RRR, +S1, +S2 GI/Abdominal exam: PRESENT: normal bowel sounds, soft. ABSENT: distended, tenderness Rectal exam: PRESENT: deferred Gentrourinary exam: ABSENT: indwelling catheter Extremities exam: ABSENT: pedal edema Musculoskeletal exam: PRESENT: ambulatory, normal inspection Neurological exam: PRESENT: alert, awake, oriented to person, oriented to place, oriented to time, oriented to situation, CN II-XII grossly intact Psychiatric exam: PRESENT: appropriate affect, normal mood. ABSENT: agitated, anxious, unusual affect Focused psych exam: ABSENT: delusional, paranoid, restlessness Skin exam: PRESENT: dry, normal color, warm. ABSENT: rash Results Laboratory Results: WBC 4.4 10^3/uL (4.0-10.5) 05/01/19 04:42 RBC 3.06 10^6/uL (3.72-5.28) L 05/01/19 04:42 Hgb 9.2 g/dL (12.0-15.5) L 05/01/19 04:42 Hct 27.6 % (36.0-47.0) L 05/01/19 04:42 MCV 90 fl (80-97) 05/01/19 04:42 MCH 30.2 pg (27.0-33.4) 05/01/19 04:42 MCHC 33.5 g/dL (32.0-36.0) 05/01/19 04:42 RDW 17.4 % (11.5-14.0) H 05/01/19 04:42 Plt Count 239 10^3/uL (150-450) 05/01/19 04:42 Lymph % (Auto) 18.2 % (13-45) 04/24/19 05:19 [place] % (Auto) 8.1 % (3-13) 04/24/19 05:19 Eos % (Auto) 0.6 % (0-6) 04/24/19 05:19 Baso % (Auto) 1.3 % (0-2) 04/24/19 05:19 Absolute Neuts (auto) 4.2 10^3/uL (1.7-8.2) 04/24/19 05:19 Absolute Lymphs (auto) 1.1 10^3/uL (0.5-4.7) 04/24/19 05:19 Absolute Monos (auto) 0.5 10^3/uL (0.1-1.4) 04/24/19 05:19 Absolute Eos (auto) 0.0 10^3/uL (0.0-0.6) 04/24/19 05:19 Absolute Basos (auto) 0.1 10^3/uL (0.0-0.2) 04/24/19 05:19 Seg Neutrophils % 71.8 % (42-78) 04/24/19 05:19 Carbonic Acid 0.95 mmol/L (1.05-1.35) L 04/23/19 02:25 HCO3/H2CO3 Ratio 20:1 04/23/19 02:25 ABG pH 7.41 (7.35-7.45) 04/23/19 02:25 ABG pCO2 31.7 mmHg (35-45) L 04/23/19 02:25 ABG pO2 82.0 mmHg (80-100) 04/23/19 02:25 ABG HCO3 19.6 mmol/L (20-24) L 04/23/19 02:25 ABG Total CO2 20.6 mmol/L (21-25) L 04/23/19 02:25 ABG O2 Saturation 96.3 % (94-98) 04/23/19 02:25 ABG Base Excess -4.2 mmol/L 04/23/19 02:25 FiO2 30% 04/23/19 02:25 Sodium 142.8 mmol/L (137-145) 05/01/19 04:42 Potassium 4.1 mmol/L (3.6-5.0) 05/01/19 04:42 Chloride 104 mmol/L (98-107) 05/01/19 04:42 Carbon Dioxide 31 mmol/L (22-30) H 05/01/19 04:42 Anion Gap 8 (5-19) 05/01/19 04:42 BUN 19 mg/dL (7-20) 05/01/19 04:42 Creatinine 1.44 mg/dL (0.52-1.25) H 05/01/19 04:42 Est GFR ( Amer) 47 (>60) L 05/01/19 04:42 Est GFR (MDRD) Non-Af 39 (>60) L 05/01/19 04:42 Glucose 98 mg/dL (75-110) 05/01/19 04:42 Lactic Acid 1.6 mmol/L (0.7-2.1) 04/23/19 02:36 Calcium 8.8 mg/dL (8.4-10.2) 05/01/19 04:42 Phosphorus 6.4 mg/dL (2.5-4.5) H 04/24/19 05:19 Magnesium 2.1 mg/dL (1.6-2.3) 04/24/19 05:19 Total Bilirubin 1.6 mg/dL (0.2-1.3) H 04/23/19 02:36 Direct Bilirubin 0.6 mg/dL (0.0-0.4) H 04/23/19 02:36 Neonat Total Bilirubin Not Reportable 04/23/19 02:36 Neonat Direct Bilirubin Not Reportable 04/23/19 02:36 Neonat Indirect Bili Not Reportable 04/23/19 02:36 AST 31 U/L (14-36) 04/23/19 02:36 ALT 22 U/L (<35) 04/23/19 02:36 Alkaline Phosphatase 114 U/L (38-126) 04/23/19 02:36 Troponin I 0.058 ng/mL 04/23/19 02:36 NT-Pro-B Natriuret Pep 50012 pg/mL (<125) H 04/23/19 02:36 Total Protein 7.4 g/dL (6.3-8.2) 04/23/19 02:36 Albumin 3.4 g/dL (3.5-5.0) L 04/24/19 05:19 Lipase 200.3 U/L (23-300) 04/23/19 02:36 Influenza A (Rapid) NEGATIVE (NEGATIVE) 04/23/19 03:33 Influenza B (Rapid) NEGATIVE (NEGATIVE) 04/23/19 03:33 04/23/19 02:36 Troponin I 0.058 NT-Pro-B Natriuret Pep 15674 H Impressions: Abdomen/Pelvis CTA 04/23/19 04:49 IMPRESSION: No focal filling defect is seen to suggest a pulmonary embolism. There are groundglass mosaic changes which may reflect evidence of air trapping or distal small vessel or small airway disease. There are consolidative airspace opacities which may reflect superimposed infection. A chronic interstitial process is not fully excluded. The cardiac silhouette is enlarged. There is also evidence of pulmonary artery hypertension. No acute abdominal process is seen. Chest/Abdomen CTA 04/23/19 04:49 IMPRESSION: No focal filling defect is seen to suggest a pulmonary embolism. There are groundglass mosaic changes which may reflect evidence of air trapping or distal small vessel or small airway disease. There are consolidative airspace opacities which may reflect superimposed infection. A chronic interstitial process is not fully excluded. The cardiac silhouette is enlarged. There is also evidence of pulmonary artery hypertension. No acute abdominal process is seen. Chest X-Ray 04/24/19 00:00 IMPRESSION: Satisfactory placement of central venous catheter copyright 2011 [employer]- All Rights Reserved Chest X-Ray 04/28/19 00:00 IMPRESSION: NO SIGNIFICANT INTERVAL CHANGE. Foot X-Ray 04/28/19 00:00 IMPRESSION: NEGATIVE STUDY OF THE RIGHT FOOT. NO RADIOGRAPHIC EVIDENCE OF ACUTE INJURY. Chest X-Ray 04/29/19 00:00 IMPRESSION: Improved bilateral perihilar opacities. Plan Health Concerns: Severely depressed ejection fraction with recurrent hospitalizations Plan of Treatment: As above. Modifications made to her medication regimen. Follow-up with primary care and cardiology. Goals: Stability of her cardiac conditions Time Spent: Greater than 30 Minutes Stroke Is this a Stroke Patient?: No Acute Heart Failure - Is this a Heart Failure Patient?: Yes Documentation of LVEF assessment?: Yes LVEF < 40%?: Yes-if yes answer questions a through e a) Discharged on ACEI?: N/A Discharged on ARNI b) Discharges on ARB?: N/A-Discharged on ARNI c) Discharged on ARNI?: Yes d) Discharged on evidence-based Beta rip(carvedilol, sustained release metoprolol succinate, or bisoprolol)?: Yes e) For LVEF <35%, discharged on Aldosterone antagonist?: No-document contraincations Reason(s) not discharged on Aldosterone antagonist for LVEF < 35%: Other - Per cardiology. Most likely due to hypotension. 3. Anticoagulant therapy for permanect/persistent/paraoxysmal Afib or Aflutter: Yes Follow-up Appointment scheduled within 7 days?: Yes
== END 2019-05-02 11:05 | disposition home or self-care (01) | DRG 291 ==
LOC: ER 02:01 → EH 07:58 → 3W 15:16
PROVIDERS: ADMIT Family Medicine; ATTEND Family Medicine
PROC: 02HV33Z Insertion of Infusion Device into Superior Vena Cava, Percutaneous Approach (ICD-10-PCS; principal; 2019-04-24)
PROC: B548ZZA Ultrasonography of Superior Vena Cava, Guidance (ICD-10-PCS; 2019-04-24)
DX: I13.0 Hypertensive heart and chronic kidney disease with heart failure and stage 1 through stage 4 chronic kidney disease, or unspecified chronic kidney disease (principal); J96.21 Acute and chronic respiratory failure with hypoxia; I50.23 Acute on chronic systolic (congestive) heart failure; N18.3 Chronic kidney disease, stage 3 (moderate); I25.10 Atherosclerotic heart disease of native coronary artery without angina pectoris; E78.5 Hyperlipidemia, unspecified; K21.9 Gastro-esophageal reflux disease without esophagitis; F32.9 Major depressive disorder, single episode, unspecified; Z95.1 Presence of aortocoronary bypass graft; Z95.810 Presence of automatic (implantable) cardiac defibrillator; R79.89 Other specified abnormal findings of blood chemistry; I48.0 Paroxysmal atrial fibrillation; I25.5 Ischemic cardiomyopathy; Z66 Do not resuscitate; G47.33 Obstructive sleep apnea (adult) (pediatric); G89.29 Other chronic pain; Z82.49 Family history of ischemic heart disease and other diseases of the circulatory system; Z87.891 Personal history of nicotine dependence; Z82.3 Family history of stroke; Z83.3 Family history of diabetes mellitus; Z79.82 Long term (current) use of aspirin; Z79.899 Other long term (current) drug therapy; Z91.012 Allergy to eggs; Z88.8 Allergy status to other drugs, medicaments and biological substances; Z88.5 Allergy status to narcotic agent; Z86.14 Personal history of Methicillin resistant Staphylococcus aureus infection; Z79.891 Long term (current) use of opiate analgesic
CPT/HCPCS: 36415; 36600; 71045; 71046; 71275; 74174; 80048; 80053; 80069; 82803; 83605; 83690; 83735; 83880; 84484; 85025; 85027; 87040; 87804; 93005; 93010; 94660; 94667; 94799; 96374; 96375; 99285; C1751; J0692; J1250; J1265; J1940; J2270; J2405; J3490

== ENCOUNTER 2019-05-21 03:03 | Inpatient (IN) | payer MEDICAID ==
--- NOTE | 2019-05-21 03:19 | ER Document Report ---
Entered by GIO ROSSI SCRIBE 05/21/19 0317 Acting as scribe for:CHARLOTTE MUHAMMAD IV, MD ED General - General Chief Complaint: Shortness Of Breath Stated Complaint: SHORTNESS OF BREATH Mode of Arrival: Medic Information source: Patient, Emergency Med Personnel Notes: This 48 year old female patient with a history of CHF and COPD brought in by EMS presents to the ED today with complaints of chest pain and shortness of breath that started prior to arrival. EMS reports that the patient was initially 95% on 4L of home O2 and remained at 95% when they switched to their O2. EMS states nirmal t the patient's O2 sat dropped to 89% while she was sitting up on the stretcher and that they placed her on CPAP with O2 sats increasing to 96-98%. EMS reports that they administered 0.4 mg NTG SL. ED nurse reports that the patient has a history of CHF and COPD exacerbations. TRAVEL OUTSIDE OF THE [place] IN LAST 30 DAYS: No - Related Data Allergies/Adverse Reactions: egg [Egg] Allergy (Verified 10/04/18 00:18) hydrocodone [From Vicodin] Allergy (Verified 04/07/19 08:53) propoxyphene [From Darvocet-N] Allergy (Verified 10/04/18 00:18) amiodarone Adverse Reaction (Verified 10/04/18 00:18) Respiratory distress diphenhydramine HCl [From Benadryl] Adverse Reaction (Verified 10/04/18 00:18) chest pain, bigemeny rhythm Past Medical History - General Information source: [facility], [facility] - Social History Smoking Status: Never Smoker Cigarette use (# per day): No Chew tobacco use (# tins/day): No Smoking Education Provided: No Family History: Reviewed & Not Pertinent, CAD, CVA, DM, Hypertension, Malignancy, Other - Kidney disease Patient has suicidal ideation: No Patient has homicidal ideation: No - Past Medical History Cardiac Medical History: Reports: Hx Atrial Fibrillation, Hx Congestive Heart Failure, Hx Coronary Artery Disease, Hx Heart Attack, Hx Hypercholesterolemia, Hx Hypertension Pulmonary Medical History: Reports: Hx Bronchitis, Hx COPD, Hx Pneumonia, Hx Intubation, Hx Respiratory Failure, Hx Sleep Apnea Renal/ Medical History: Reports: Hx Kidney Stones, Hx Renal Insufficiency GI Medical History: Reports: Hx Gastroesophageal Reflux Disease Psychiatric Medical History: Reports: Hx Anxiety, Hx Depression, Hx Schizophrenia Infectious Medical History: Reports: Hx MRSA - And sputum on last admission. Past Surgical History: Reports: Hx Cardiac Catheterization - multiple, Hx Cardiac Surgery - pacemaker/icd, Hx Section, Hx Coronary Artery Bypass Graft - 2007, Hx Coronary Stent - Multiple, Hx Hysterectomy, Hx Open Heart Surgery - BYPASS 2006, Hx Pacemaker - AICD, Hx Tubal Ligation - Immunizations Hx Diphtheria, Pertussis, Tetanus Vaccination: Yes Hx Pneumococcal Vaccination: 04/04/12 Review of Systems - Review of Systems Constitutional: No symptoms reported EENT: No symptoms reported Cardiovascular: See HPI, Chest pain Respiratory: See HPI, Short of breath Gastrointestinal: No symptoms reported Genitourinary: No symptoms reported Female Genitourinary: No symptoms reported Musculoskeletal: No symptoms reported Skin: No symptoms reported Hematologic/Lymphatic: No symptoms reported Neurological/Psychological: No symptoms reported -: Yes All other systems reviewed and negative Physical Exam - Vital signs Vitals: Temp Pulse Ox 99.2 F 99 05/21/19 03:05 05/21/19 03:05 - General General appearance: Alert - HEENT Head: Normocephalic, Atraumatic Eyes: Normal Pupils: PERRL - Respiratory Respiratory status: Other - CPAP Chest status: Nontender Breath sounds: Other - Diminished breath sounds Chest palpation: Normal - Cardiovascular Rhythm: Regular, Tachycardia Heart sounds: Normal auscultation Murmur: No Friction rub: No Gallop: None auscultated - Abdominal Inspection: Normal Distension: No distension Bowel sounds: Normal Tenderness: Nontender - Abdomen soft Organomegaly: No organomegaly - Back Back: Normal, Nontender - Extremities General upper extremity: Normal inspection General lower extremity: Normal inspection. No: Edema - Neurological Neuro grossly intact: Yes - Psychological Associated symptoms: Normal affect, Normal mood - Skin Skin Temperature: Warm Skin Moisture: Dry Skin Color: Normal Course - Vital Signs Vital signs: Temp Pulse Resp BP Pulse Ox 97.2 F 60 21 H 113/69 98 05/24/19 15:41 05/25/19 02:00 05/25/19 00:18 05/24/19 15:41 05/25/19 00:18 - Laboratory Result Diagrams: 05/23/19 05:30 05/24/19 09:23 Laboratory results interpreted by me: 05/21/19 05/21/19 05/21/19 03:10 04:06 04:23 RBC Hgb Hct RDW ABG pO2 68.4 L ABG HCO3 24.9 H ABG Total CO2 26.2 H ABG O2 Saturation 93.5 L Creatinine 1.44 H Est GFR ( Amer) 47 L Est GFR (MDRD) Non-Af 39 L Glucose 121 H Total Bilirubin 3.0 H Direct Bilirubin 0.8 H NT-Pro-B Natriuret Pep 15690 H 05/21/19 04:23 RBC 3.27 L Hgb 10.1 L Hct 30.5 L RDW 18.4 H ABG pO2 ABG HCO3 ABG Total CO2 ABG O2 Saturation Creatinine Est GFR ( Amer) Est GFR (MDRD) Non-Af Glucose Total Bilirubin Direct Bilirubin NT-Pro-B Natriuret Pep - Diagnostic Test Radiology reviewed: Reports reviewed - EKG Interpretation by Me Additional EKG results interpreted by me: 05/21/19 05:35 EKG obtained on 05/21/2019 at 0310 hrs. was interpreted by this MD. Findings patient has a paced rhythm, rate 78, nonspecific ST segments are present. Impression paced rhythm with nonspecific ST segments. - Consults dr. mendoza Time consulted: 05:40 - dr. mendoza stated he would inform daytime hospitalist pt is in ED and needs admission Reason for consultation: 05/21/19 05:44 chf, hypoxia - Transfer of Care Care transferred to following provider: dr. byrd at 0600 Critical Care Note - Critical Care Note Total time excluding time spent on procedures (mins): 60 Discharge - Discharge Clinical Impression: Hypoxia CHF (congestive heart failure) Qualifiers: Heart failure type: other Qualified Code(s): I50.9 - Heart failure, unspecified Disposition: ADMITTED INPATIENT I personally performed the services described in the documentation, reviewed and edited the documentation which was dictated to the scribe in my presence, and it accurately records my words and actions.
--- NOTE | 2019-05-21 04:07 | RADIOLOGY REPORT (SQ) ---
EXAM DESCRIPTION: XR CHEST 1 VIEW COMPLETED DATE/TME: 05/21/2019 03:19 CLINICAL HISTORY: 48 years, Female, dyspnea COMPARISON: None. TECHNIQUE: Portable upright chest at 0343 hours on 05/21/2019. LIMITATIONS: None. FINDINGS: The lungs are overinflated. There are mixed interstitial and alveolar opacities in the right upper and lower lobes. The costophrenic angles are sharp. There is moderate to marked cardiomegaly with normal pulmonary vascularity. Median sternotomy wires. There is 3-lead left pacer defibrillator. IMPRESSION: Right upper lobe and right lower lobe pneumonia versus residual interstitial edema from prior CHF. Moderate to marked enlargement of the cardiac silhouette. A 3-lead left pacer defibrillator remains in place. Sternotomy wires. copyright 2010 [employer]- All Rights Reserved
[2019-05-21] MEDS ORDERED: ONDANSETRON HCL INJ/PF 4 MG/2 ML SDV IV ONE (04:12)
[2019-05-21 04:14] LABS: TROPONIN I 0.055 ng/mL
[2019-05-21 04:21] LABS: ARTERIAL BLOOD BASE EXCESS -0.1 mmol/L; ARTERIAL BLOOD H2CO3 1.27 mmol/L (1.05-1.35); ARTERIAL BLOOD HCO3 24.9 mmol/L (20-24); ARTERIAL BLOOD O2 SATURATION 93.5 % (94-98); ARTERIAL BLOOD PCO2 42.3 mmHg (35-45); ARTERIAL BLOOD PH 7.39 (7.35-7.45); ARTERIAL BLOOD PO2 68.4 mmHg (80-100); ARTERIAL BLOOD TOTAL CO2 26.2 mmol/L (21-25)
[2019-05-21 04:28] LABS: ARTERIAL BLOOD FIO2 35%
[2019-05-21 04:40] LABS: HEMOGLOBIN 10.1 g/dL (12.0-15.5); RED CELL DISTRIBUTION WIDTH 18.4 % (11.5-14.0)
[2019-05-21 04:41] LABS: ABSOLUTE LYMPHOCYTES (AUTO) 1.1 10^3/uL (0.5-4.7); ABSOLUTE MONOCYTES (AUTO) 0.3 10^3/uL (0.1-1.4); TOTAL CELLS COUNTED % (AUTO) 100 %
[2019-05-21 04:48] LABS: ABSOLUTE BASOPHILS # (AUTO) 0.1 10^3/uL (0.0-0.2); ABSOLUTE NEUT (AUTO) 3.8 10^3/uL (1.7-8.2); BASOPHILS % (AUTO) 1.3 % (0-2); EOSINOPHILS % (AUTO) 0.2 % (0-6); HEMATOCRIT 30.5 % (36.0-47.0); LYMPHOCYTES % (AUTO) 20.3 % (13-45); MEAN CORPUSCULAR HGB CONC 33.3 g/dL (32.0-36.0); MONOCYTES % (AUTO) 5.5 % (3-13); PLATELET COUNT 308 10^3/uL (150-450); RED BLOOD COUNT 3.27 10^6/uL (3.72-5.28); SEGMENTED NEUTROPHILS % (AUTO) 72.7 % (42-78); WHITE BLOOD COUNT 5.3 10^3/uL (4.0-10.5)
[2019-05-21 04:55] LABS: MEAN CORPUSCULAR VOLUME 93 fl (80-97)
[2019-05-21 04:58] LABS: ALBUMIN 4.4 g/dL (3.5-5.0); ALKALINE PHOSPHATASE 95 U/L (38-126); ANION GAP 13 (5-19); ASPARTATE AMINO TRANSFERASE 28 U/L (14-36); BILIRUBIN,DIRECT 0.8 mg/dL (0.0-0.4); BLOOD UREA NITROGEN 14 mg/dL (7-20); CALCIUM 9.5 mg/dL (8.4-10.2); CARBON DIOXIDE 28 mmol/L (22-30); CHLORIDE 102 mmol/L (98-107); GLUCOSE 121 mg/dL (75-110)
[2019-05-21] MEDS ORDERED: FUROSEMIDE INJ/PF 20 MG/2 ML SDV IV ONE (05:01)
--- NOTE | 2019-05-21 05:48 | EKG REPORT ---
SEVERITY:- ABNORMAL ECG - ATRIAL-SENSED VENTRICULAR-PACED RHYTHM : Confirmed by: Griselda Martin MD 21-May-2019 05:47:30
[2019-05-21] MEDS ORDERED: ALBUTEROL SULFATE 0.083% NEB 2.5 MG/3 ML AMPUL NEB PRN (11:04)
[2019-05-21] MEDS ORDERED: MAG HYDROX/AL HYDROX/SIMETH SUSP 30 ML UDCUP PO PRN (11:04)
[2019-05-21] MEDS ORDERED: ONDANSETRON HCL INJ/PF 4 MG/2 ML SDV IV PRN (11:04)
[2019-05-21] MEDS ORDERED: MAGNESIUM HYDROXIDE SUSP 30 ML UDCUP PO PRN (11:04)
--- NOTE | 2019-05-21 11:19 | PDOC H&P ---
History of Present Illness Admission Date/PCP: 05/21/19 08:17 YI SHANNON MD Patient complains of: Pneumonia History of Present Illness: FRANKI DEL ROSARIO is a 48 year old female short of breath, productive cough green sputum, oxygen failure, positive chest x-ray Past Medical History Cardiac Medical History: Reports: Atrial Fibrillation, Congestive Heart Failure, Coronary Artery Disease, Myocardial Infarction, Hyperlipidema, Hypertension Denies: DVT, Pulmonary Embolism Pulmonary Medical History: Reports: Bronchitis, Chronic Obstructive Pulmonary Disease (COPD), Intubation, Pneumonia, Respiratory Failure, Sleep Apnea Denies: Asthma Neurological Medical History: Denies: Seizures Endocrine Medical History: Denies: Diabetes Mellitus Type 1, Diabetes Mellitus Type 2, Hyperthyroidism, Hypothyroidism GI Medical History: Reports: Gastroesophageal Reflux Disease Denies: Cirrhosis, Crohn's Disease, Hepatitis, Hiatal Hernia, Ulcerative Colitis Musculoskeltal Medical History: Denies: Arthritis, Gout Skin Medical History: Denies: Eczema, Psoriasis Psychiatric Medical History: Reports: Depression Hematology: Reports: Anemia - Chronic, Bleeding Tendencies - "On blood thinners" Infectious Medical History: Reports: Methicillin-Resistant Staph Aureus - And sputum on last admission. Past Surgical History Past Surgical History: Reports: Cardiac Catheterization - multiple, Section, Coronary Artery Bypass Graft - 2006, Coronary Stent - Multiple, Hysterectomy, Pacemaker - AICD, Tubal Ligation Denies: Mastectomy Social History Information Source: Patient, [facility] Records Lives with: Family Smoking Status: Never Smoker Electronic Cigarette use?: No Frequency of Alcohol Use: Occasional Hx Recreational Drug Use: Yes Drugs: Cocaine, Marijuana Hx Prescription Drug Abuse: No - Advance Directive Resuscitation Status: Do Not Resuscitate Surrogate healthcare decision maker:: Her Mother Family History Family History: CAD, CVA, DM, Hypertension, Malignancy, Other - Kidney disease Parental Family History Reviewed: Yes Children Family History Reviewed: Yes Sibling(s) Family History Reviewed.: Yes Medication/Allergy Home Medications: Alprazolam [Xanax 0.5 mg Tablet] 0.5 mg PO Q6HP PRN 02/08/19 Aspirin [Ecotrin 81 mg EC Tablet] 81 mg PO DAILY 02/08/19 Atorvastatin Calcium [Lipitor 80 mg Tablet] 80 mg PO QHS 02/08/19 Buspirone HCl [Buspar 10 mg Tablet] 10 mg PO BID 02/08/19 Paroxetine HCl [Paxil 20 mg Tablet] 20 mg PO DAILY 02/08/19 Famotidine [Pepcid 20 mg Tablet] 20 mg PO Q12 #60 tablet 03/23/19 Isosorbide Mononitrate [Imdur 30 mg Tablet.er] 30 mg PO DAILY #30 tab.er.24h 03/23/19 Melatonin [Melatonin 5 mg Tablet] 10 mg PO QHS #30 tablet 03/23/19 Sennosides/Docusate 8.6-50 mg [Senna Plus Tablet] 1 each PO QHS #30 tablet 03/23/19 Apixaban [Eliquis 2.5 mg Tablet] 2.5 mg PO BID #60 tablet 04/16/19 Metoprolol Succinate [Toprol Xl 25 mg Tab.sr] 25 mg PO Q12 #60 tab.sr.24h 04/16/19 Furosemide [Lasix 40 mg Tablet] 40 mg PO DAILY 15 Days #15 tablet 05/02/19 Midodrine HCl 10 mg PO TID 15 Days #45 tablet 05/02/19 Sacubitril/Valsartan [Entresto 49 mg/51 mg Tablet] 1 tab PO BID #30 tablet 05/02/19 Allergies/Adverse Reactions: egg [Egg] Allergy (Verified 10/04/18 00:18) hydrocodone [From Vicodin] Allergy (Verified 04/07/19 08:53) propoxyphene [From Darvocet-N] Allergy (Verified 10/04/18 00:18) amiodarone Adverse Reaction (Verified 10/04/18 00:18) Respiratory distress diphenhydramine HCl [From Benadryl] Adverse Reaction (Verified 10/04/18 00:18) chest pain, bigemeny rhythm Review of Systems All systems: reviewed and no additional remarkable complaints except as stated Constitutional: PRESENT: anorexia, fatigue, weakness Eyes: ABSENT: visual disturbances Cardiovascular: PRESENT: dyspnea on exertion Respiratory: PRESENT: cough, dyspnea, sputum Psychiatric: PRESENT: depression Physical Exam Vital Signs: Temp Pulse Resp BP Pulse Ox 97.2 F 75 22 H 150/100 H 98 05/21/19 09:57 05/21/19 09:57 05/21/19 10:55 05/21/19 09:57 05/21/19 10:55 Intake & Output 05/20/19 05/21/19 05/22/19 06:59 06:59 06:59 Output Total 350 Balance -350 Weight 105.9 kg 104.7 kg General appearance: PRESENT: cooperative, well-developed - Well-developed 48-year-old in moderate distress resting on BiPAP. Head exam: PRESENT: atraumatic, normocephalic Eye exam: PRESENT: conjunctiva pink. ABSENT: scleral icterus Ear exam: PRESENT: normal external ear exam. ABSENT: bleeding, drainage Mouth exam: PRESENT: other - BiPAP mask in place Respiratory exam: PRESENT: prolonged expiratory phas, rhonchi - Coarse rhonchi bilaterally, symmetrical, tachypnea, unlabored. ABSENT: rales, wheezes Cardiovascular exam: PRESENT: RRR, +S1, +S2 GI/Abdominal exam: PRESENT: normal bowel sounds, soft. ABSENT: distended, tenderness Rectal exam: PRESENT: deferred Gentrourinary exam: PRESENT: indwelling catheter Musculoskeletal exam: PRESENT: ambulatory, normal inspection Neurological exam: PRESENT: alert, awake, oriented to person, oriented to place, oriented to time, oriented to situation, CN II-XII grossly intact. ABSENT: altered Psychiatric exam: PRESENT: flat affect. ABSENT: agitated, anxious Focused psych exam: ABSENT: delusional, paranoid, restlessness Skin exam: PRESENT: dry, normal color, warm. ABSENT: rash Results Laboratory Results: 05/21/19 04:23 05/21/19 04:23 05/21/19 05/21/19 05/21/19 03:10 03:10 04:06 WBC Cancelled RBC Cancelled Hgb Cancelled Hct Cancelled MCV Cancelled MCH Cancelled MCHC Cancelled RDW Cancelled Plt Count Cancelled Seg Neutrophils % Cancelled Carbonic Acid 1.27 HCO3/H2CO3 Ratio 19:1 ABG pH 7.39 ABG pCO2 42.3 ABG pO2 68.4 L ABG HCO3 24.9 H ABG O2 Saturation 93.5 L ABG Base Excess -0.1 FiO2 35% Sodium Cancelled Potassium Cancelled Chloride Cancelled Carbon Dioxide Cancelled Anion Gap Cancelled BUN Cancelled Creatinine Cancelled Est GFR ( Amer) Cancelled Est GFR (Non-Af Amer) Cancelled Glucose Cancelled Calcium Cancelled Total Bilirubin Cancelled AST Cancelled Alkaline Phosphatase Cancelled Total Protein Cancelled Albumin Cancelled 03/23/20 03/23/20 04:23 04:23 WBC 5.3 RBC 3.27 L Hgb 10.1 L Hct 30.5 L MCV 93 MCH 31.0 MCHC 33.3 RDW 18.4 H Plt Count 308 Seg Neutrophils % 72.7 Carbonic Acid HCO3/H2CO3 Ratio ABG pH ABG pCO2 ABG pO2 ABG HCO3 ABG O2 Saturation ABG Base Excess FiO2 Sodium 142.6 Potassium 4.0 Chloride 102 Carbon Dioxide 28 Anion Gap 13 BUN 14 Creatinine 1.44 H Est GFR ( Amer) 47 L Est GFR (Non-Af Amer) Glucose 121 H Calcium 9.5 Total Bilirubin 3.0 H AST 28 Alkaline Phosphatase 95 Total Protein 8.0 Albumin 4.4 05/21/19 03:10 Troponin I 0.055 NT-Pro-B Natriuret Pep 21725 H Impressions: Chest X-Ray 05/21/19 03:19 IMPRESSION: Right upper lobe and right lower lobe pneumonia versus residual interstitial edema from prior CHF. Moderate to marked enlargement of the cardiac silhouette. A 3-lead left pacer defibrillator remains in place. Sternotomy wires. copyright 2010 [employer]- All Rights Reserved Assessment and Plan - Diagnosis (1) Pneumonia Qualifiers: Pneumonia type: due to unspecified organism Laterality: bilateral Lung location: unspecified part of lung Qualified Code(s): J18.9 - Pneumonia, unspecified organism Is this a current diagnosis for this admission?: Yes Plan: 05/21/2019 The patient has had a productive cough. Sputum has been sent. The patient has a history of MRSA pneumonia. She will be on meropenem and vancomycin. X-ray zamora ggest bilateral pneumonia. (2) Acute on chronic systolic congestive heart failure, NYHA class 3 Is this a current diagnosis for this admission?: Yes Plan: 05/21/2019 The pneumonia has likely precipitated an exacerbation of her chronic severe congestive heart failure. We will continue her current medication regimen and adjust as needed. Dr. Martin will be seeing the patient as well. (3) CKD (chronic kidney disease) Qualifiers: Chronic kidney disease stage: stage 3 (moderate) Qualified Code(s): N18.3 - Chronic kidney disease, stage 3 (moderate) Is this a current diagnosis for this admission?: Yes Plan: 05/21/2019 Her serum creatinine is at her baseline. We will need to adjust medications bas ed on her renal function. Changes in medications will be based on her renal function and clinical changes affecting the patient. (4) COPD (chronic obstructive pulmonary disease) Qualifiers: COPD type: unspecified COPD Qualified Code(s): J44.9 - Chronic obstructive pulmonary disease, unspecified Is this a current diagnosis for this admission?: Yes Plan: 05/21/2019 The patient is currently on BiPAP. BiPAP and inhaler therapy with oxygen supplementation as required. Because of her history and clinical presentation she is not suspected of Covid-19 coronavirus (5) Coronary artery disease Qualifiers: Coronary Disease-Associated Artery/Lesion type: [place] artery [place] vs. transplanted heart: [place] heart Associated angina: without angina Qualified Code(s): I25.10 - Atherosclerotic heart disease of [place] coronary artery without angina pectoris Is this a current diagnosis for this admission?: Yes Plan: 05/21/2019 Currently no evidence of acute coronary syndrome. We will continue current management. Continue telemetry monitoring as well. (6) Depression Qualifiers: Depression Type: major depressive disorder Major depression recurrence: recurrent Active/Remission status: currently active Major depression episode severity: moderate Qualified Code(s): F33.1 - Major depressive disorder, recurrent, moderate Is this a current diagnosis for this admission?: Yes Plan: 05/21/2019 We will continue antidepressant and antianxiety medications. I believe she is aware of her poor prognosis. We have discussed her CODE STATUS in the past. See separate ACP note. (7) HTN (hypertension) Qualifiers: Hypertension type: essential hypertension Qualified Code(s): I10 - Essential (primary) hypertension Is this a current diagnosis for this admission?: Yes Plan: 05/21/2019 Continue current regimen. Adjust as needed. She is on multiple medications at this time. (8) Urinary tract infection Qualifiers: Urinary tract infection type: acute cystitis Hematuria presence: without hematuria Qualified Code(s): N30.00 - Acute cystitis without hematuria Is this a current diagnosis for this admission?: Yes Plan: 05/21/2019 The patient's urinalysis suggests infection. A urine culture was requested. She will be on broad-spectrum antibiotics for pneumonia which will cover any pathogens in the urine. - Time Time Spent with patient: 35 or more minutes Medications reviewed and adjusted accordingly: Yes Anticipated discharge: Home - Inpatient Certification Based on my medical assessment, after consideration of the patient's comorbidities, presenting symptoms, or acuity I expect that the services needed warrant INPATIENT care.: Yes I certify that my determination is in accordance with my understanding of Medicare's requirements for reasonable and necessary INPATIENT services [42 CFR 412.3e].: Yes Medical Necessity: Need Close Monitoring Due to Risk of Patient Decompensation, Need For Continuous Telemetry Monitoring, Need for Nebulizer Therapy and Monitoring of Response, Need for IV Antibiotics Post Hospital Care: D/C Building Operator Documentation
[2019-05-21] MEDS ORDERED: PHARMACY COMMUNICATION ORDER MC NR (11:30)
[2019-05-21 11:36] LABS: APPEARANCE,URINE CLOUDY; BILIRUBIN,URINE NEGATIVE (NEGATIVE); GLUCOSE, URINE NEGATIVE (NEGATIVE); KETONES,URINE NEGATIVE (NEGATIVE); PROTEIN,URINE 30 mg/dL (NEGATIVE); URINE SPECIFIC GRAVITY 1.014
[2019-05-21 11:37] LABS: COLOR,URINE YELLOW
[2019-05-21] MEDS: ACETAMINOPHEN 325 MG TABLET PO PRN (13:28)
[2019-05-21] MEDS: MIDODRINE HCL 5 MG TABLET PO SCH ×2 (13:28→17:57)
[2019-05-21] MEDS ORDERED: HEPARIN SOD (PORCINE) 5,000 UNIT/ML 1 ML VIAL SUBCUT SCH (14:00)
[2019-05-21] MEDS ORDERED: (PENDING PHARMACY ID) (Midodrine Hcl [Midodrine Hcl] 10 MG) PO SCH (14:00)
[2019-05-21] MEDS: MEROPENEM 1 GM in NORMAL SALINE 50 ML IV SCH ×2 (14:16→22:31)
[2019-05-21] MEDS: IPRATROPIUM/ALBUTEROL 0.5-2.5 MG/3 ML AMPUL NEB SCH (16:58)
[2019-05-21] MEDS: DOCUSATE SODIUM 100 MG CAPSULE PO SCH (17:57)
[2019-05-21] MEDS: APIXABAN 2.5 MG TABLET PO SCH (17:57)
[2019-05-21] MEDS: BUSPIRONE HCL 10 MG TABLET PO SCH (17:57)
[2019-05-21] MEDS: SACUBITRIL/VALSARTAN 49 MG/51 MG TABLET PO SCH (17:58)
[2019-05-21] MEDS: ALPRAZOLAM 0.5 MG TABLET PO PRN (18:18)
[2019-05-21] MEDS: OXYCODONE-ACETAMINOPHEN 5-325 MG TABLET PO PRN (18:44)
[2019-05-21] MEDS: MELATONIN 5 MG TABLET PO SCH (22:32)
[2019-05-21] MEDS: ATORVASTATIN CALCIUM 80 MG TABLET PO SCH (22:32)
[2019-05-21] MEDS: METOPROLOL SUCCINATE 25 MG TAB.SR.24H PO SCH (22:32)
[2019-05-21] MEDS: FAMOTIDINE 20 MG TABLET PO SCH (22:32)
[2019-05-21] MEDS: SENNOSIDES/DOCUSATE 8.6-50 MG 1 EACH TABLET PO SCH (22:32)
--- NOTE | 2019-05-21 22:48 | PDOC CONSULTATION ---
Consultation-Blank Consultation: CARDIOLOGY CONSULTATION by Dr. Griselda Martin on 05/21/2019. Patient seen at 6 6 PM. 60 minutes spent with patient more than 50% time spent direct patient care. REASON FOR CONSULTATION patient with acute on chronic respiratory failure due to recurrent acute on chronic systolic heart failure and recurrent pneumonia. CONSULT REQUESTING PHYSICIAN: Dr[facility] Isabel Sevilla, [facility]. HISTORY OF PRESENT ILLNESS: Patient with recurrent admissions for acute on chronic respiratory failure secondary to acute on chronic systolic heart failure and history of recurrent pneumonia again admitted with a 2 to 3-day history of increasing cough. The cough is productive of greenish-yellow sputum. The patient also has been having leg edema and PND and orthopnea and shortness of breath. She also has been having intermittent wheezing. There is no palpitations or clinical evidence of recurrence of proximal atrial fibrillation. There is no syncope and no firing of his AICD. The patient at present is drowsy on BiPAP but still able to answer some questions but after asked repeatedly. HISTORY OF present ILLNESS: Patient very somnolent and drowsy and on a BiPAP not much history is obtained. Patient with a history of cardiomyopathy history of coronary artery disease old NM history of proximal atrial fibrillation, history of AICD placement, and history of severe cardiomyopathy with LV ejection fraction around 25% admitted with cough fever and productive sputum which is yellowish in color. Also with symptoms of shortness of breath with PND orthopnea. There is no documentation of recent firing of the AICD. The patient being admitted for treatment of pneumonia and acute on chronic systolic heart failure causing acute on chronic respiratory failure. Past Medical History Cardiac Medical History: Reports: Atrial Fibrillation, Congestive Heart Failure, Coronary Artery Disease, Myocardial Infarction, Hyperlipidema, Hypertension Denies: DVT, Pulmonary Embolism Pulmonary Medical History: Reports: Bronchitis, Chronic Obstructive Pulmonary Disease (COPD), Intubation, Pneumonia, Respiratory Failure, Sleep Apnea Denies: Asthma Neurological Medical History: Denies: Seizures Endocrine Medical History: Denies: Diabetes Mellitus Type 1, Diabetes Mellitus Type 2, Hyperthyroidism, Hypothyroidism GI Medical History: Reports: Gastroesophageal Reflux Disease Denies: Cirrhosis, Crohn's Disease, Hepatitis, Hiatal Hernia, Ulcerative Colitis Musculoskeltal Medical History: Denies: Arthritis, Gout Skin Medical History: Denies: Eczema, Psoriasis Psychiatric Medical History: Reports: Depression, Substance Abuse, Tobacco Dependency Hematology: Reports: Anemia - Chronic, Bleeding Tendencies - "On blood thinners" Infectious Medical History: Reports: Methicillin-Resistant Staph Aureus - And sputum on last admission. Past Surgical History Past Surgical History: Reports: Cardiac Catheterization - multiple, Section, Coronary Artery Bypass Graft - 2007, Coronary Stent - Multiple, Hysterectomy, Pacemaker - AICD, Tubal Ligation Denies: Mastectomy Social History Information Source: Patient Lives with: Custodial Smoking Status: Former Smoker - Currently vapes. Frequency of Alcohol Use: Occasional Hx Recreational Drug Use: Yes Drugs: Marijuana Hx Prescription Drug Abuse: No - Advance Directive Resuscitation Status: Full Code Family History Family History: CAD, CVA, DM, Hypertension, Malignancy, Other - Kidney disease Parental Family History Reviewed: Yes Children Family History Reviewed: Yes Sibling(s) Family History Reviewed.: Yes Resuscitation Status: The Patient Is a DNR. The Patient's Daughter Is Her Surrogate Healthcare Decision Maker. Medication/Allergy Home Medications: Alprazolam [Xanax 0.5 mg Tablet] 0.5 mg PO Q6HP PRN 02/08/19 Aspirin [Ecotrin 81 mg EC Tablet] 81 mg PO DAILY 02/08/19 Atorvastatin Calcium [Lipitor 80 mg Tablet] 80 mg PO QHS 02/08/19 Buspirone HCl [Buspar 10 mg Tablet] 10 mg PO BID 02/08/19 Paroxetine HCl [Paxil 20 mg Tablet] 20 mg PO DAILY 02/08/19 Famotidine [Pepcid 20 mg Tablet] 20 mg PO Q12 #60 tablet 03/23/19 Isosorbide Mononitrate [Imdur 30 mg Tablet.er] 30 mg PO DAILY #30 tab.er.24h 03/23/19 Melatonin [Melatonin 5 mg Tablet] 10 mg PO QHS #30 tablet 03/23/19 Sennosides/Docusate 8.6-50 mg [Senna Plus Tablet] 1 each PO QHS #30 tablet 03/23/19 Apixaban [Eliquis 2.5 mg Tablet] 2.5 mg PO BID #60 tablet 04/16/19 Metoprolol Succinate [Toprol Xl 25 mg Tab.sr] 25 mg PO Q12 #60 tab.sr.24h Furosemide [Lasix 40 mg Tablet] 40 mg PO DAILY 15 Days #15 tablet 05/02/19 Midodrine HCl 10 mg PO TID 15 Days #45 tablet 05/02/19 Sacubitril/Valsartan [Entresto 49 mg/51 mg Tablet] 1 tab PO BID #30 tablet 05/02/19 Allergies/Adverse Reactions: egg [Egg] Allergy (Verified 10/04/18 00:18) hydrocodone [From Vicodin] Allergy (Verified 04/07/19 08:53) propoxyphene [From Darvocet-N] Allergy (Verified 10/04/18 00:18) amiodarone Adverse Reaction (Verified 10/04/18 00:18) Respiratory distress diphenhydramine HCl [From Benadryl] Adverse Reaction (Verified 10/04/18 00:18) chest pain, bigemeny rhythm Current Medications Acetaminophen (Tylenol 325 Mg Tablet) 650 mg PO Q4HP PRN PRN Reason: FOR PAIN OR TEMP Stop: 06/20/19 11:03 Last Admin: 05/21/19 13:28 Dose: 650 mg Documented by: Al Hydrox/Mg Hydrox/Simethicone (Maalox Plus Susp 30 Udcup) 15 ml PO Q6HP PRN PRN Reason: HEARTBURN Stop: 06/20/19 11:03 Albuterol (Ventolin 0.083% Neb 2.5 Mg/3 Ml Ampul) 2.5 mg NEB RTQ4HP PRN PRN Reason: SHORTNESS OF BREATH Stop: 06/20/19 11:03 Albuterol/Ipratropium (Duoneb 3 Ml Ampul) 3 ml NEB RTQ8 WILY Stop: 06/20/19 15:59 Last Admin: 05/21/19 16:58 Dose: 3 ml Documented by: Alprazolam (Xanax 0.5 Mg Tablet) 0.5 mg PO Q6HP PRN PRN Reason: ANXIETY Stop: 05/28/19 11:12 Last Admin: 05/21/19 18:18 Dose: 0.5 mg Documented by: Apixaban (Eliquis 2.5 Mg Tablet) 2.5 mg PO BID WILY Stop: 06/20/19 17:59 Last Admin: 05/21/19 17:57 Dose: 2.5 mg Documented by: Aspirin (Ecotrin 81 Mg Ec Tablet) 81 mg PO DAILY WILY Stop: 06/21/19 09:59 Atorvastatin Calcium (Lipitor 80 Mg Tablet) 80 mg PO QHS WILY Stop: 06/20/19 21:59 Last Admin: 05/21/19 22:32 Dose: 80 mg Documented by: Buspirone HCl (Buspar 10 Mg Tablet) 10 mg PO BID [facility] Stop: 06/20/19 17:59 Last Admin: 05/21/19 17:57 Dose: 10 mg Documented by: Docusate Sodium (Colace 100 Mg Capsule) 100 mg PO BID [facility] Stop: 06/20/19 17:59 Last Admin: 05/21/19 17:57 Dose: 100 mg Documented by: Famotidine (Pepcid 20 Mg Tablet) 20 mg PO Q12 [facility] Stop: 06/20/19 21:59 Last Admin: 05/21/19 22:32 Dose: 20 mg Documented by: Furosemide (Lasix 40 Mg Tablet) 40 mg PO DAILY [facility] Stop: 06/21/19 09:59 Meropenem 1 gm/ Sodium (Chloride) 50 mls @ 100 mls/hr IV Q8 [facility] Stop: 05/28/19 13:59 Last Admin: 05/21/19 22:31 Dose: 100 mls/hr, 100 mls/hr Documented by: Isosorbide Mononitrate (Imdur 30 Mg Tablet.Er) 30 mg PO DAILY [facility] Stop: 06/21/19 09:59 Magnesium Hydroxide (Milk Of Magnesia 30 Ml Udcup) 30 ml PO HSP PRN PRN Reason: FOR CONSTIPATION Stop: 06/20/19 11:03 Melatonin (Melatonin 5 Mg Tablet) 10 mg PO QHS [facility] Stop: 06/20/19 21:59 Last Admin: 05/21/19 22:32 Dose: 10 mg Documented by: Metoprolol Succinate (Toprol Xl 25 Mg Tab.Sr) 25 mg PO Q12 [facility] Stop: 06/20/19 21:59 Last Admin: 05/21/19 22:32 Dose: 25 mg Documented by: Midodrine (Proamatine 5 Mg Tablet) 10 mg PO TID [facility] Stop: 06/20/19 13:59 Last Admin: 05/21/19 17:57 Dose: 10 mg Documented by: Ondansetron HCl (Zofran Inj/Pf 4 Mg/2 Ml Sdv) 4 mg IV Q6HP PRN PRN Reason: FOR NAUSEA/VOMITING Stop: 06/20/19 11:03 Oxycodone/Acetaminophen (Percocet 5-325 Mg Tablet) 1 tab PO Q4HP PRN PRN Reason: PAIN SCALE 3-4 Stop: 05/28/19 18:14 Oxycodone/Acetaminophen (Percocet 5-325 Mg Tablet) 2 tab PO Q4HP PRN PRN Reason: PAIN SCALE 5 Stop: 05/28/19 18:15 Last Admin: 05/21/19 18:44 Dose: 2 tab Documented by: Paroxetine HCl (Paxil 20 Mg Tablet) 20 mg PO DAILY [facility] Stop: 06/21/19 09:59 Pharmacy Profile Note (Medication Communication Order) 1 each [facility] .NOTICE NR Stop: 06/20/19 11:29 Sacubitril/Valsartan (Entresto 49 Mg/51 Mg Tablet) 1 tab PO BID [facility] Stop: 06/20/19 17:59 Last Admin: 05/21/19 17:58 Dose: 1 tab Documented by: Senna/Docusate Sodium (Senna Plus Tablet) 1 each PO QHS [facility] Stop: 06/20/19 21:59 Last Admin: 05/21/19 22:32 Dose: 1 each Documented by: Sodium Chloride (Saline Flush 2.5 Ml Monoject Prefil Syrin) 2.5 ml IV Q8 [facility] Stop: 06/20/19 13:59 Last Admin: 05/21/19 14:16 Dose: 2.5 ml Documented by: Discontinued Medications Furosemide (Lasix Inj/Pf 20 Mg/2 Ml Sdv) 40 mg IV NOW ONE Stop: 05/21/19 05:02 Last Admin: 05/21/19 05:23 Dose: 40 mg Documented by: Heparin Sodium (Porcine) (Heparin Inj 5,000 Units/Ml 1 Ml Vial) 5,000 unit SUBCUT Q8 [facility] Stop: 06/20/19 13:59 Ondansetron HCl (Zofran Inj/Pf 4 Mg/2 Ml Sdv) 4 mg IV NOW ONE Stop: 05/21/19 04:13 Last Admin: 05/21/19 04:16 Dose: 4 mg Documented by: REVIEW OF SYSTEMS: NOTE that the patient is slightly lethargic and is on the BiPAP and hence unable to obtain a very good REVIEW OF SYSTEMS: CONSTITUTIONAL: The patient denies any fever chills or rigors, she has generalized weakness and fatigue. HEAD: Denies headaches or head injury. EYES: There is no amblyopia diplopia, and no amaurosis fugax. EARS: No hearing loss, no tinnitus or vertigo. NOSE: No history of hayfever, no nosebleeds, and no nasal polyps. MOUTH: No altered taste sensation, no ulcers in the mouth and no bleeding from the gums. THROAT: No odynophagia or dysphagia, no recurrent sore throats. SKIN: There is no pruritus no no elevation discoloration of the skin, and no eczema. LUNGS: She has history of wheezing. She has cough productive of greenish-yellow sputum. There is no pleuritic chest pain there is no hemoptysis. She complains of intermittent wheezing. She has PND and orthopnea. She has a past history of MRSA pneumonia and was treated intensively for 6 weeks with antibiotics. There is no history of pulmonary embolism.. HEART: Roberta has a history of CAD, NM but anginal symptoms, and no history of hypertension hyperlipidemia. . He denies palpitations or syncope. She has a prior history of paroxysmal atrial fibrillation. With no recurrence. Patient is on Eliquis. She has an AICD with no firing of the AICD. She has ischemic cardiomyopathy with severely reduced LV ejection fraction. Patient with admitted with symptoms of PND orthopnea leg edema and shortness of breath. This is a combination of the patient's pneumonia and heart failure. There is no history of congenital heart disease or rheumatic heart disease. GI: No history of fatty food intolerance no abdominal pain, no cirrhosis. No GI bleed. No altered bowel movements. ENDOCRINE: No history of diabetes mellitus or thyroid disease. No history of polydipsia polyuria, no history of heat or cold intolerance. MUSCULOSKELETAL: Has a history of arthritis, but no disabling symptoms, and no history of collagen vascular disease. RENAL: No symptoms of enlarged prostate. No history of chronic kidney disease. No symptoms of UTI. No history of hematuria pyuria or dysuria. History of solid mass in the right cortex of the right kidney diagnosed by CAT scan in 10/14. METABOLIC: History of morbid obesity present and history of hyperlipidemia. No history of gout. YOUTH CARE PROFESSIONAL: No history of TIA or CVA. No history of migraines or seizures. No history of gait imbalance. PSYCHIATRIC: No history of anxiety or depression. No history of suicidal ideation or homicidal ideation. VASCULAR: No history of calf or buttock claudication, no history of DVT. HEMATOLOGICAL: No history of bleeding diathesis or or clotting disorders, and no history of anemia. PHYSICAL EXAMINATION: The patient is morbidly obese. In distress due to her shortness of breath and is on the BiPAP. Selected Entries 05/21/19 05/21/19 16:58 19:26 Temperature 97.3 F Temperature Axillary Source Pulse Rate 60 Respiratory 24 H Rate Blood Pressure 143/91 H Blood Pressure 108 Mean BP Location Right Arm BP Position Supine O2 Sat by Pulse 96 92 Oximetry Oxygen Delivery Bi-pap Method ( includes room air) Fraction of 40 Inspired Oxygen (FIO2) Oxygen Delivery Bipap Method HEAD: Is atraumatic normocephalic. EYES: Pupils are equal round regular reactive to light. HEENT is negative. SKIN: There is no skin rashes or skin lesions. There is no particular ecchymosis. NECK: Is supple. There is mild JVD present. Carotids are equal there is no bruits. There is no lymphadenopathy. There is no goiter. There is no accessory muscle respiration use. Trachea central. LUNGS: . There is diminished air entry. On percussion there is hyperresonance. On palpation there is no chest wall tenderness. HEART: S1-S2 is heard. There is no S3 gallop. There is no S4 gallop. There is systolic murmur mitral regurgitation tricuspid regurgitation present. There is no aortic stenosis murmur. There is no aortic insufficiency murmur. There is n o rub. ABDOMEN: Is obese. Nontender. There is no hepatosplenomegaly. Bowel sounds are well heard. There is no rebound guarding or rigidity. EXTREMITIES: Femorals are deep. Femorals are diminished. There is no femoral bruits. There is decreased leg pulses. There is mild pedal edema. YOUTH CARE PROFESSIONAL: the patient is conscious awake alert oriented x3 with no focal deficits. PSYCHIATRIC: The patient judgment insight are intact. She does not appear to be agitated or anxious. Labs- Entire Visit 05/21/19 05/21/19 05/21/19 03:10 03:10 03:10 WBC Cancelled RBC Cancelled Hgb Cancelled Hct Cancelled MCV Cancelled MCH Cancelled MCHC Cancelled RDW Cancelled Plt Count Cancelled Lymph % (Auto) Cancelled [place] % (Auto) Cancelled Eos % (Auto) Cancelled Baso % (Auto) Cancelled Absolute Neuts (auto) Cancelled Absolute Lymphs (auto) Cancelled Absolute Monos (auto) Cancelled Absolute Eos (auto) Cancelled Absolute Basos (auto) Cancelled Seg Neutrophils % Cancelled Platelet Estimate Cancelled Carbonic Acid HCO3/H2CO3 Ratio ABG pH ABG pCO2 ABG pO2 ABG HCO3 ABG Total CO2 ABG O2 Saturation ABG Base Excess FiO2 Sodium Cancelled Potassium Cancelled Chloride Cancelled Carbon Dioxide Cancelled Anion Gap Cancelled BUN Cancelled Creatinine Cancelled Est GFR ( Amer) Cancelled Est GFR (Non-Af Amer) Cancelled Est GFR (MDRD) Non-Af Cancelled Glucose Cancelled Calcium Cancelled Total Bilirubin Cancelled Direct Bilirubin Cancelled Neonat Total Bilirubin Cancelled Neonat Direct Bilirubin Cancelled Neonat Indirect Bili Cancelled AST Cancelled ALT Cancelled Alkaline Phosphatase Cancelled Troponin I 0.055 NT-Pro-B Natriuret Pep 76435 H Total Protein Cancelled Albumin Cancelled EGFR Cancelled Urine Color Urine Appearance Urine pH Ur Specific Standard Urine Protein Urine Glucose (UA) Urine Ketones Urine Blood Urine Nitrite (Reflex) Urine Bilirubin Urine Urobilinogen Leukocyte Esterase Rfl Urine RBC (Auto) U Hyaline Cast (Auto) Urine Bacteria (Auto) Urine WBC (Reflex) Urine WBC Clumps Squamous Epi Cells Auto U Non-Squamous Epis Auto Urine Mucus (Auto) Urine Ascorbic Acid Slides for Path Review Cancelled 05/21/19 05/21/19 05/21/19 04:06 04:23 04:23 WBC 5.3 RBC 3.27 L Hgb 10.1 L Hct 30.5 L MCV 93 MCH 31.0 MCHC 33.3 RDW 18.4 H Plt Count 308 Lymph % (Auto) 20.3 [place] % (Auto) 5.5 Eos % (Auto) 0.2 Baso % (Auto) 1.3 Absolute Neuts (auto) 3.8 Absolute Lymphs (auto) 1.1 Absolute Monos (auto) 0.3 Absolute Eos (auto) 0.0 Absolute Basos (auto) 0.1 Seg Neutrophils % 72.7 Platelet Estimate Carbonic Acid 1.27 HCO3/H2CO3 Ratio 19:1 ABG pH 7.39 ABG pCO2 42.3 ABG pO2 68.4 L ABG HCO3 24.9 H ABG Total CO2 26.2 H ABG O2 Saturation 93.5 L ABG Base Excess -0.1 FiO2 35% Sodium 142.6 Potassium 4.0 Chloride 102 Carbon Dioxide 28 Anion Gap 13 BUN 14 Creatinine 1.44 H Est GFR ( Amer) 47 L Est GFR (Non-Af Amer) Est GFR (MDRD) Non-Af 39 L Glucose 121 H Calcium 9.5 Total Bilirubin 3.0 H Direct Bilirubin 0.8 H Neonat Total Bilirubin Not Reportable Neonat Direct Bilirubin Not Reportable Neonat Indirect Bili Not Reportable AST 28 ALT 13 Alkaline Phosphatase 95 Troponin I NT-Pro-B Natriuret Pep Total Protein 8.0 Albumin 4.4 EGFR Urine Color Urine Appearance Urine pH Ur Specific Standard Urine Protein Urine Glucose (UA) Urine Ketones Urine Blood Urine Nitrite (Reflex) Urine Bilirubin Urine Urobilinogen Leukocyte Esterase Rfl Urine RBC (Auto) U Hyaline Cast (Auto) Urine Bacteria (Auto) Urine WBC (Reflex) Urine WBC Clumps Squamous Epi Cells Auto U Non-Squamous Epis Auto Urine Mucus (Auto) Urine Ascorbic Acid Slides for Path Review 05/21/19 11:20 WBC RBC Hgb Hct MCV MCH MCHC RDW Plt Count Lymph % (Auto) [place] % (Auto) Eos % (Auto) Baso % (Auto) Absolute Neuts (auto) Absolute Lymphs (auto) Absolute Monos (auto) Absolute Eos (auto) Absolute Basos (auto) Seg Neutrophils % Platelet Estimate Carbonic Acid HCO3/H2CO3 Ratio ABG pH ABG pCO2 ABG pO2 ABG HCO3 ABG Total CO2 ABG O2 Saturation ABG Base Excess FiO2 Sodium Potassium Chloride Carbon Dioxide Anion Gap BUN Creatinine Est GFR ( Amer) Est GFR (Non-Af Amer) Est GFR (MDRD) Non-Af Glucose Calcium Total Bilirubin Direct Bilirubin Neonat Total Bilirubin Neonat Direct Bilirubin Neonat Indirect Bili AST ALT Alkaline Phosphatase Troponin I NT-Pro-B Natriuret Pep Total Protein Albumin EGFR Urine Color YELLOW Urine Appearance CLOUDY Urine pH 5.0 Ur Specific Standard 1.014 Urine Protein 30 H Urine Glucose (UA) NEGATIVE Urine Ketones NEGATIVE Urine Blood LARGE H Urine Nitrite (Reflex) NEGATIVE Urine Bilirubin NEGATIVE Urine Urobilinogen 4.0 H Leukocyte Esterase Rfl LARGE H Urine RBC (Auto) >182 U Hyaline Cast (Auto) 72 Urine Bacteria (Auto) 1+ Urine WBC (Reflex) > 182 Urine WBC Clumps MANY Squamous Epi Cells Auto 4 U Non-Squamous Epis Auto 2 Urine Mucus (Auto) MANY Urine Ascorbic Acid NEGATIVE Slides for Path Review Chest X-Ray 05/21/19 03:19 IMPRESSION: Right upper lobe and right lower lobe pneumonia versus residual interstitial edema from prior CHF. Moderate to marked enlargement of the cardiac silhouette. A 3-lead left pacer defibrillator remains in place. Sternotomy wires. IMPRESSION/RECOMMENDATION: 1. Acute on chronic respiratory failure. This is secondary to pneumonia, obstructive sleep apnea, and acute on chronic systolic heart failure 2. Recurrent right lower lobe pneumonia: Continue antibiotics and BiPAP. 3. Acute on chronic systolic heart failure. Patient with LV ejection fraction of 25%. Continue beta-blockers and Entresto. Continue diuretics. Continue Entresto 4. Acute exacerbation COPD: Continue bronchodilators 5. History of MRSA pneumonia: The patient had a 6-week course of antibiotics and her last blood culture was negative. We will see if the repeat blood cul tures come back negative or positive. 6. History of amiodarone toxicity. Would recommend avoiding amiodarone 7. Acute on chronic kidney disease: Watch renal function as we implement aggressive diuresis. 8. Cardiomyopathy with severely reduced LV ejection fraction. Continue beta- rip and Entresto and Lasix. 9. Paroxysmal atrial fibrillation: Continue beta-rip. The patient Eliquis had to be stopped due to patient's anemia and also prior occult positive bloo blood in the stools. The patient later will be restarted on Eliquis. 10. History of ventricular tachycardia, The patient has an AICD placed. If there is recurrence of ventricular tachycardia or major ventricular ectopic activity then would start the patient on small dose of sotalol. Would avoid amiodarone. 11. Hypertension: Blood pressure well controlled, on current medications. 12. Coronary artery disease: History of NM and history of coronary bypass graft surgery. No evidence of acute coronary syndrome/non-ST ST elevation NM this admission. 13. Obstructive sleep apnea. Note patient has been noncompliant with CPAP. Most likely has significant pulmonary hypertension. 14. AICD placement: Note the patient's basal rate is around 60 bpm. If the patient's heart failure continues then would recommend increasing the basal heart rate to 80 bpm to help combat the heart failure along with diuretics. Medications reviewed. Medical management and medication regimen have been discussed with attending physician in detail. Medical decision making is of high complexity. 60 minutes spent as patient more than 50% time spent in direct patient care. Will follow
[2019-05-22] MEDS: IPRATROPIUM/ALBUTEROL 0.5-2.5 MG/3 ML AMPUL NEB SCH ×3 (00:31→15:47)
[2019-05-22] MEDS: OXYCODONE-ACETAMINOPHEN 5-325 MG TABLET PO PRN ×3 (02:43→17:23)
[2019-05-22] MEDS: MEROPENEM 1 GM in NORMAL SALINE 50 ML IV SCH ×3 (05:27→21:10)
[2019-05-22] MEDS: ALPRAZOLAM 0.5 MG TABLET PO PRN ×2 (07:35→17:24)
[2019-05-22] MEDS ORDERED: VANCOMYCIN HCL 0 MG in DEXTROSE 5%-WATER 250 ML IV NR (07:45)
[2019-05-22 09:19] LABS: ABSOLUTE EOSINOPHILS # (AUTO) 0.1 10^3/uL (0.0-0.6); ABSOLUTE LYMPHOCYTES (AUTO) 0.7 10^3/uL (0.5-4.7); ABSOLUTE MONOCYTES (AUTO) 0.3 10^3/uL (0.1-1.4); ABSOLUTE NEUT (AUTO) 4.1 10^3/uL (1.7-8.2); BASOPHILS % (AUTO) 0.9 % (0-2); EOSINOPHILS % (AUTO) 1.4 % (0-6); HEMATOCRIT 32.2 % (36.0-47.0); HEMOGLOBIN 10.3 g/dL (12.0-15.5); LYMPHOCYTES % (AUTO) 13.5 % (13-45); MEAN CORPUSCULAR HEMOGLOBIN 30.1 pg (27.0-33.4); MEAN CORPUSCULAR VOLUME 94 fl (80-97); MONOCYTES % (AUTO) 6.3 % (3-13); RED BLOOD COUNT 3.43 10^6/uL (3.72-5.28); RED CELL DISTRIBUTION WIDTH 18.6 % (11.5-14.0); SEGMENTED NEUTROPHILS % (AUTO) 77.9 % (42-78); TOTAL CELLS COUNTED % (AUTO) 100 %; WHITE BLOOD COUNT 5.3 10^3/uL (4.0-10.5)
[2019-05-22 09:41] LABS: ANION GAP 9 (5-19); BLOOD UREA NITROGEN 18 mg/dL (7-20); CALCIUM 9.1 mg/dL (8.4-10.2); CARBON DIOXIDE 29 mmol/L (22-30); CHLORIDE 101 mmol/L (98-107); GLUCOSE 110 mg/dL (75-110); PLATELET COUNT 294 10^3/uL (150-450); POTASSIUM 3.9 mmol/L (3.6-5.0)
--- NOTE | 2019-05-22 10:38 | ADVANCED CARE ---
- Diagnosis (1) Pneumonia Diagnosis Current: Yes (2) Acute on chronic systolic congestive heart failure, NYHA class 3 Diagnosis Current: Yes (3) CKD (chronic kidney disease) Diagnosis Current: Yes (4) COPD (chronic obstructive pulmonary disease) Diagnosis Current: Yes (5) Coronary artery disease Diagnosis Current: Yes (6) Depression Diagnosis Current: Yes (7) HTN (hypertension) Diagnosis Current: Yes (8) Urinary tract infection Diagnosis Current: Yes Attendance: Discussion was had at the bedside with the patient. Resuscitation Status: Do Not Resuscitate Discussion: The patient is very well-known to this provider and the hospitalist service. This is an unfortunate 48-year-old with severe cardiomyopathy and ejection fraction approximately 20%. Multiple discussions have been had with the patient. Over the last 2 admissions she in fact has kept her DNR status. 1 of the hospitalist providers had a lengthy discussion with the patient about aggressive intervention including assessment at a specific heart failure program with the availability of left ventricular assistive device/transplant. The patient was educated but then declined and said that she would not want to pursue that avenue of treatment. We have discussed on several occasions moving towards hospice level care and at one point comfort measures were discussed. Currently the patient is DO NOT RESUSCITATE. She has a pneumonia again which is likely bacterial. She also likely has cystitis. We will continue our discussions during her admission to provide realistic prognosis. Certainly her clinical course will affect decision making as well. I feel we need to be very clear about her intention as family members have disagreed with her plan and the past. We will try and have her complete a living will/healthcare proxy. Care Planning Goals: Her goals will be to better define her disposition in the event of decline. Every admission presents greater probability for the patient to not do well. We will continue to discuss just as we have had on previous admissions. Document(s) Completed: No Time Spent: 18
[2019-05-22] MEDS: VANCOMYCIN HCL 750 MG in DEXTROSE 5%-WATER 250 ML IV SCH ×2 (11:02→22:28)
[2019-05-22] MEDS: ISOSORBIDE MONONITRATE 30 MG TAB.ER.24H PO SCH (11:03)
[2019-05-22] MEDS: DOCUSATE SODIUM 100 MG CAPSULE PO SCH ×2 (11:03→17:18)
[2019-05-22] MEDS: METOPROLOL SUCCINATE 25 MG TAB.SR.24H PO SCH ×2 (11:03→21:09)
[2019-05-22] MEDS: MIDODRINE HCL 5 MG TABLET PO SCH ×3 (11:03→17:18)
[2019-05-22] MEDS: FUROSEMIDE 40 MG TABLET PO SCH (11:03)
[2019-05-22] MEDS: FAMOTIDINE 20 MG TABLET PO SCH ×2 (11:04→21:09)
[2019-05-22] MEDS: PAROXETINE HCL 20 MG TABLET PO SCH (11:04)
[2019-05-22] MEDS: BUSPIRONE HCL 10 MG TABLET PO SCH ×2 (11:04→17:18)
[2019-05-22] MEDS: ASPIRIN 81 MG TABLET, ENT COATED PO SCH (11:04)
[2019-05-22] MEDS: APIXABAN 2.5 MG TABLET PO SCH ×2 (11:05→17:18)
[2019-05-22] MEDS: SACUBITRIL/VALSARTAN 49 MG/51 MG TABLET PO SCH ×2 (11:06→17:18)
--- NOTE | 2019-05-22 13:46 | PDOC PROGRESS REPORT ---
Subjective Progress Note for:: 05/22/19 Subjective:: 05/22/2019: Patient was seen and examined. She is on BiPAP. She says her symptoms is improving with treatment. Reason For Visit: COMMUNITY ACQUIRED PNEUMONIA,HEART FAILURE Physical Exam Vital Signs: Temp Pulse Resp BP Pulse Ox 97.5 F 59 L 16 117/61 91 L 05/22/19 11:18 05/22/19 11:18 05/22/19 11:18 05/22/19 11:18 05/22/19 11:18 Intake & Output 05/21/19 05/22/19 05/23/19 06:59 06:59 06:59 Intake Total 750 Output Total 350 1650 Balance -350 -900 Weight 233 lb 7.512 oz 230 lb 9.656 oz Exam: Patient is mild respiratory distress on BiPAP. Alert oriented to time place person No anxiety or depression Head: atraumatic normocephalic Pupils: are equal reactive Neck: is supple and trachea is central no lymphadenopathy No pharyngeal erythema or exudates Heart: Regular rate and rhythm, positive peripheral edema Lungs: Mild respiratory distress, coarse breathing sounds bilaterally Abdomen: nontender nondistended Neurological exam: unremarkable Musculoskeletal: No joint swelling or effusion chronic lower back pain and tenderness No suicidal or homicidal ideation Results Laboratory Results: 05/22/19 08:59 05/22/19 08:59 05/22/19 05/22/19 08:59 08:59 WBC 5.3 RBC 3.43 L Hgb 10.3 L Hct 32.2 L MCV 94 MCH 30.1 MCHC 32.0 RDW 18.6 H Plt Count 294 Seg Neutrophils % 77.9 Sodium 138.5 Potassium 3.9 Chloride 101 Carbon Dioxide 29 Anion Gap 9 BUN 18 Creatinine 1.39 H Est GFR ( Amer) 49 L Glucose 110 Calcium 9.1 05/21/19 03:10 Troponin I 0.055 NT-Pro-B Natriuret Pep 69577 H Impressions: Chest X-Ray 05/21/19 03:19 IMPRESSION: Right upper lobe and right lower lobe pneumonia versus residual interstitial edema from prior CHF. Moderate to marked enlargement of the cardiac silhouette. A 3-lead left pacer defibrillator remains in place. Sternotomy wires. copyright 2010 [employer]- All Rights Reserved Assessment and Plan - Plan Summary Summary: (1) Pneumonia Qualifiers: Pneumonia type: due to unspecified organism Laterality: bilateral Lung location: unspecified part of lung Qualified Code(s): J18.9 - Pneumonia, unspecified organism Is this a current diagnosis for this admission?: Yes Plan: 05/21/2019 The patient has had a productive cough. Sputum has been sent. The patient has a history of MRSA pneumonia. She will be on meropenem and vancomycin. X-ray suggest bilateral pneumonia. 05/22/2019 Appears to be improving. Continue current medications. Monitor white count and symptoms. (2) Acute on chronic systolic congestive heart failure, NYHA class 3 Is this a current diagnosis for this admission?: Yes Plan: 05/21/2019 The pneumonia has likely precipitated an exacerbation of her chronic severe congestive heart failure. We will continue her current medication regimen and adjust as needed. Dr. Martin will be seeing the patient as well. 05/22/2019 Continue current diuretics. Continue beta-rip therapy. Appreciate Dr. Ragsdale evaluation. (3) CKD (chronic kidney disease) Qualifiers: Chronic kidney disease stage: stage 3 (moderate) Qualified Code(s): N18.3 - Chronic kidney disease, stage 3 (moderate) Is this a current diagnosis for this admission?: Yes Plan: 05/21/2019 Her serum creatinine is at her baseline. We will need to adjust medications based on her renal function. Changes in medications will be based on her renal function and clinical changes affecting the patient. 05/22/2019 Stable. Monitor renal function. (4) COPD (chronic obstructive pulmonary disease) Qualifiers: COPD type: unspecified COPD Qualified Code(s): J44.9 - Chronic obstructive pulmonary disease, unspecified Is this a current diagnosis for this admission?: Yes Plan: 05/21/2019 The patient is currently on BiPAP. BiPAP and inhaler therapy with oxygen supplementation as required. Because of her history and clinical presentation she is not suspected of Covid-19 coronavirus (5) Coronary artery disease Qualifiers: Coronary Disease-Associated Artery/Lesion type: [place] artery [place] vs. transplanted heart: [place] heart Associated angina: without angina Qualified Code(s): I25.10 - Atherosclerotic heart disease of [place] coronary artery without angina pectoris Is this a current diagnosis for this admission?: Yes Plan: 05/21/2019 Currently no evidence of acute coronary syndrome. We will continue current management. Continue telemetry monitoring as well. (6) Depression Qualifiers: Depression Type: major depressive disorder Major depression recurrence: recurrent Active/Remission status: currently active Major depression episode severity: moderate Qualified Code(s): F33.1 - Major depressive disorder, recurrent, moderate Is this a current diagnosis for this admission?: Yes Plan: 05/21/2019 We will continue antidepressant and antianxiety medications. I believe she is aware of her poor prognosis. We have discussed her CODE STATUS in the past. See separate ACP note. 05/22/2019 Continue current medications (7) HTN (hypertension) Qualifiers: Hypertension type: essential hypertension Qualified Code(s): I10 - Essential (primary) hypertension Is this a current diagnosis for this admission?: Yes Plan: 05/21/2019 Continue current regimen. Adjust as needed. She is on multiple medications at this time. (8) Urinary tract infection Qualifiers: Urinary tract infection type: acute cystitis Hematuria presence: without hematuria Qualified Code(s): N30.00 - Acute cystitis without hematuria Is this a current diagnosis for this admission?: Yes Plan: 05/21/2019 The patient's urinalysis suggests infection. A urine culture was requested. She will be on broad-spectrum antibiotics for pneumonia which will cover any pathogens in the urine.
--- NOTE | 2019-05-22 14:47 | CDI QUERY ---
CDI Query CDI Review: Dear Provider: To better reflect your patients severity of illness, morbidity, and resource utilization Please specify and document in the Progress Notes and Discharge Summary if you are monitoring / treating / evaluating any of the following conditions: Query Clinical indicators If you agree with the diagnoses documented in the Cardiology Consult note as listed here, please include them in your Progress Notes as well as in the Discharge Summary. As the Primary physician, your documentation of diagnoses is necessary for confirmation / agreement with any speech correction consultant. Per Cardiology Consult: IMPRESSION/RECOMMENDATION: 1. Acute on chronic respiratory failure. This is secondary to pneumonia, obstructive sleep apnea, and acute on chronic systolic heart failure 3. Acute on chronic systolic heart failure. Patient with LV ejection fraction of 25%. Continue beta-blockers and Entresto. Continue diuretics. Continue Entresto 4. Acute exacerbation COPD: Continue bronchodilators 5. History of MRSA pneumonia: 7. Acute on chronic kidney disease: 8. Cardiomyopathy with severely reduced LV ejection fraction. 9. Paroxysmal atrial fibrillation. 13. Obstructive sleep apnea. Note patient has been noncompliant with CPAP. Most likely has significant pulmonary hypertension. . The terms probable, suspected, likely, possible or still to be ruled out may be used if you are unable to determine the exact nature of a condition. Thank you for your consideration, Clinical Documentation Physician [facility]visors MUNIR Llamas RN, BSN RN Office [phone] Office [phone]
[2019-05-22 15:39] LABS: ANION GAP 7 (5-19); BLOOD UREA NITROGEN 18 mg/dL (7-20); CALCIUM 8.8 mg/dL (8.4-10.2); CARBON DIOXIDE 32 mmol/L (22-30); CHLORIDE 100 mmol/L (98-107); GLUCOSE 128 mg/dL (75-110); POTASSIUM 4.1 mmol/L (3.6-5.0)
--- NOTE | 2019-05-22 19:30 | Progress Note ---
Provider Note Provider Note: CARDIOLOGY PROGRESS NOTE by Dr. Griselda Cruz on 05/22/2019 SUBJECTIVE: The patient states her shortness of breath is marginally better. She is off the BiPAP and is on nasal cannula. She does have cough with productive sputum which is greenish-yellow in color. There is no hemoptysis. She denies any chest pain discomfort. There is no recurrence of atrial fibrillation or ventricular tachycardia. There is no firing of her AICD. Her leg edema is improving but still she has some mild pedal edema. There is o rthopnea present there is no PND. PHYSICAL EXAMINATION: The patient is morbidly obese. In no acute distress Selected Entries 05/22/19 15:27 Temperature 97.5 F Temperature Oral Source Pulse Rate 62 Respiratory 16 Rate Blood Pressure 97/58 L Blood Pressure 71 Mean BP Location Right Arm BP Position Supine O2 Sat by Pulse 90 L Oximetry Oxygen Flow 3.00 Rate Oxygen Delivery Nasal Cannula Method HEAD: Is atraumatic normocephalic. EYES: Pupils are equal round regular reactive to light. HEENT is negative. SKIN: There is no skin rashes or skin lesions. There is no particular ecchymosis. NECK: Is supple. There is mild JVD present. Carotids are equal there is no bruits. There is no lymphadenopathy. There is no goiter. There is no accessory muscle respiration use. Trachea central. LUNGS: . There is diminished air entry. On percussion there is hyperresonance. On palpation there is no chest wall tenderness. HEART: S1-S2 is heard. There is no S3 gallop. There is no S4 gallop. There is systolic murmur mitral regurgitation tricuspid regurgitation present. There is no aortic stenosis murmur. There is no aortic insufficiency murmur. There is no rub. ABDOMEN: Is obese. Nontender. There is no hepatosplenomegaly. Bowel sounds are well heard. There is no rebound guarding or rigidity. EXTREMITIES: Femorals are deep. Femorals are diminished. There is no femoral bruits. There is decreased leg pulses. There is mild pedal edema. 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 PSYCHIATRIC: The patient judgment insight are intact. She does not appear to be agitated or anxious. Labs- All tests 24 hr 05/22/19 05/22/19 05/22/19 08:59 08:59 14:40 WBC 5.3 RBC 3.43 L Hgb 10.3 L Hct 32.2 L MCV 94 MCH 30.1 MCHC 32.0 RDW 18.6 H Plt Count 294 Lymph % (Auto) 13.5 [place] % (Auto) 6.3 Eos % (Auto) 1.4 Baso % (Auto) 0.9 Absolute Neuts (auto) 4.1 Absolute Lymphs (auto) 0.7 Absolute Monos (auto) 0.3 Absolute Eos (auto) 0.1 Absolute Basos (auto) 0.0 Seg Neutrophils % 77.9 Sodium 138.5 138.7 Potassium 3.9 4.1 Chloride 101 100 Carbon Dioxide 29 32 H Anion Gap 9 7 BUN 18 18 Creatinine 1.39 H 1.37 H Est GFR ( Amer) 49 L 50 L Est GFR (MDRD) Non-Af 41 L 41 L Glucose 110 128 H Calcium 9.1 8.8 Chest X-Ray 05/21/19 03:19 IMPRESSION: Right upper lobe and right lower lobe pneumonia versus residual interstitial edema from prior CHF. Moderate to marked enlargement of the cardiac silhouette. A 3-lead left pacer defibrillator remains in place. Sternotomy wires. copyright 2010 [employer]- All Rights Reserved IMPRESSION/RECOMMENDATION: 1. Acute on chronic respiratory failure. This is secondary to pneumonia, obstructive sleep apnea, and acute on chronic systolic heart failure 2. Recurrent right lower lobe pneumonia: Continue antibiotics and BiPAP. 3. Acute on chronic systolic heart failure. Patient with LV ejection fraction of 25%. Continue beta-blockers and Entresto. Continue diuretics. Continue Entresto 4. Acute exacerbation COPD: Continue bronchodilators 5. History of MRSA pneumonia: The patient had a 6-week course of antibiotics and her last blood culture was negative. We will see if the repeat blood cultures come back negative or positive. 6. History of amiodarone toxicity. Would recommend avoiding amiodarone 7. Acute on chronic kidney disease: Watch renal function as we implement aggressive diuresis. 8. Cardiomyopathy with severely reduced LV ejection fraction. Continue beta- rip and Entresto and Lasix. 9. Paroxysmal atrial fibrillation: Continue beta-rip. The patient Eliquis had to be stopped due to patient's anemia and also prior occult positive bloo blood in the stools. The patient later will be restarted on Eliquis. 10. History of ventricular tachycardia, The patient has an AICD placed. If there is recurrence of ventricular tachycardia or major ventricular ectopic activity then would start the patient on small dose of sotalol. Would avoid amiodarone. 11. Hypertension: Blood pressure well controlled, on current medications. 12. Coronary artery disease: History of [place] and history of coronary bypass graft surgery. No evidence of acute coronary syndrome/non-ST ST elevation [place] this admission. 13. Obstructive sleep apnea. Note patient has been noncompliant with CPAP. Most likely has significant pulmonary hypertension. 14. AICD placement: Note the patient's basal rate is around 60 bpm. If the patient's heart failure continues then would recommend increasing the basal heart rate to 80 bpm to help combat the heart failure along with diuretics. Medications reviewed. Medical management and medication regimen have been discussed with attending physician in detail. Medical decision making is of high complexity. 40 minutes spent as patient more than 50% time spent in direct patient care. Will follow
[2019-05-22] MEDS: MELATONIN 5 MG TABLET PO SCH (21:09)
[2019-05-22] MEDS: SENNOSIDES/DOCUSATE 8.6-50 MG 1 EACH TABLET PO SCH (21:09)
[2019-05-22] MEDS: ATORVASTATIN CALCIUM 80 MG TABLET PO SCH (21:09)
[2019-05-23] MEDS: IPRATROPIUM/ALBUTEROL 0.5-2.5 MG/3 ML AMPUL NEB SCH ×3 (00:01→16:27)
[2019-05-23] MEDS: ALPRAZOLAM 0.5 MG TABLET PO PRN ×3 (00:07→23:41)
[2019-05-23] MEDS: OXYCODONE-ACETAMINOPHEN 5-325 MG TABLET PO PRN ×4 (00:08→21:19)
[2019-05-23] MEDS: MEROPENEM 1 GM in NORMAL SALINE 50 ML IV SCH ×3 (05:19→21:18)
[2019-05-23 05:49] LABS: HEMATOCRIT 30.5 % (36.0-47.0); HEMOGLOBIN 9.8 g/dL (12.0-15.5); MEAN CORPUSCULAR HEMOGLOBIN 30.2 pg (27.0-33.4); MEAN CORPUSCULAR HGB CONC 32.1 g/dL (32.0-36.0); MEAN CORPUSCULAR VOLUME 94 fl (80-97); PLATELET COUNT 285 10^3/uL (150-450); RED BLOOD COUNT 3.25 10^6/uL (3.72-5.28); RED CELL DISTRIBUTION WIDTH 18.4 % (11.5-14.0); WHITE BLOOD COUNT 5.3 10^3/uL (4.0-10.5)
[2019-05-23] MEDS: VANCOMYCIN HCL 750 MG in DEXTROSE 5%-WATER 250 ML IV SCH ×2 (10:23→23:41)
[2019-05-23] MEDS: DOCUSATE SODIUM 100 MG CAPSULE PO SCH ×2 (10:24→17:13)
[2019-05-23] MEDS: ASPIRIN 81 MG TABLET, ENT COATED PO SCH (10:24)
[2019-05-23] MEDS: MIDODRINE HCL 5 MG TABLET PO SCH ×3 (10:24→17:13)
[2019-05-23] MEDS: FUROSEMIDE 40 MG TABLET PO SCH (10:24)
[2019-05-23] MEDS: SACUBITRIL/VALSARTAN 49 MG/51 MG TABLET PO SCH ×2 (10:25→17:13)
[2019-05-23] MEDS: ISOSORBIDE MONONITRATE 30 MG TAB.ER.24H PO SCH (10:25)
[2019-05-23] MEDS: APIXABAN 2.5 MG TABLET PO SCH ×2 (10:25→17:13)
[2019-05-23] MEDS: METOPROLOL SUCCINATE 25 MG TAB.SR.24H PO SCH ×2 (10:25→21:29)
[2019-05-23] MEDS: BUSPIRONE HCL 10 MG TABLET PO SCH ×2 (10:26→17:13)
[2019-05-23] MEDS: FAMOTIDINE 20 MG TABLET PO SCH ×2 (10:33→21:19)
[2019-05-23] MEDS: PAROXETINE HCL 20 MG TABLET PO SCH (10:33)
--- NOTE | 2019-05-23 12:50 | PDOC PROGRESS REPORT ---
Subjective Progress Note for:: 05/23/19 Subjective:: 05/22/2019: Patient was seen and examined. She is on BiPAP. She says her symptoms is improving with treatment. 05/23/2019: Patient was seen and examined. Patient still on BiPAP. But overall she is feeling better. Physical examination: Patient is mild respiratory distress on BiPAP. Alert oriented to time place person No anxiety or depression Head: atraumatic normocephalic Pupils: are equal reactive Neck: is supple and trachea is central no lymphadenopathy No pharyngeal erythema or exudates Heart: Regular rate and rhythm, positive peripheral edema Lungs: Mild respiratory distress, coarse breathing sounds bilaterally Abdomen: nontender nondistended Neurological exam: unremarkable Musculoskeletal: No joint swelling or effusion chronic lower back pain and te nderness No suicidal or homicidal ideation Reason For Visit: COMMUNITY ACQUIRED PNEUMONIA,HEART FAILURE Physical Exam Vital Signs: Temp Pulse Resp BP Pulse Ox 97.5 F 60 12 91/48 L 96 05/23/19 07:18 05/23/19 08:02 05/23/19 08:02 05/23/19 07:18 05/23/19 08:02 Intake & Output 05/22/19 05/23/19 05/24/19 06:59 06:59 06:59 Intake Total 750 1630 Output Total 1650 1925 Balance -900 -295 Weight 230 lb 9.656 oz 233 lb 7.512 oz Results Laboratory Results: 05/23/19 05:30 05/22/19 14:40 05/22/19 05/23/19 14:40 05:30 WBC 5.3 RBC 3.25 L Hgb 9.8 L Hct 30.5 L MCV 94 MCH 30.2 MCHC 32.1 RDW 18.4 H Plt Count 285 Sodium 138.7 Potassium 4.1 Chloride 100 Carbon Dioxide 32 H Anion Gap 7 BUN 18 Creatinine 1.37 H Est GFR ( Amer) 50 L Glucose 128 H Calcium 8.8 05/21/19 17:25 Sputum Gram Stain - Final 05/21/19 17:25 Sputum Sputum Culture - Final NORMAL JARED 05/21/19 03:10 Troponin I 0.055 NT-Pro-B Natriuret Pep [id number] H Impressions: Chest X-Ray 05/21/19 03:19 IMPRESSION: Right upper lobe and right lower lobe pneumonia versus residual interstitial edema from prior CHF. Moderate to marked enlargement of the cardiac silhouette. A 3-lead left pacer defibrillator remains in place. Sternotomy wires. copyright 2010 [employer]- All Rights Reserved Assessment and Plan - Plan Summary Summary: (1) Pneumonia Qualifiers: Pneumonia type: due to unspecified organism Laterality: bilateral Lung location: unspecified part of lung Qualified Code(s): J18.9 - Pneumonia, unspecified organism Is this a current diagnosis for this admission?: Yes Plan: The patient has had a productive cough. Sputum has been sent. The patient has a history of MRSA pneumonia. She will be on meropenem and vancomycin. X-ray suggest bilateral pneumonia. Appears to be improving. Continue current medications. Monitor white count and symptoms. (2) Acute on chronic systolic congestive heart failure, NYHA class 3 Is this a current diagnosis for this admission?: Yes Plan: The pneumonia has likely precipitated an exacerbation of her chronic severe congestive heart failure. Continue current diuretics. Continue beta-rip therapy. Appreciate Dr. Melyssa kan. (3) CKD (chronic kidney disease) Qualifiers: Chronic kidney disease stage: stage 3 (moderate) Qualified Code(s): N18.3 - Chronic kidney disease, stage 3 (moderate) Is this a current diagnosis for this admission?: Yes Plan: Her serum creatinine is at her baseline. Monitor renal function. (4) COPD (chronic obstructive pulmonary disease) Qualifiers: COPD type: unspecified COPD Qualified Code(s): J44.9 - Chronic obstructive pulmonary disease, unspecified Is this a current diagnosis for this admission?: Yes Plan: The patient is currently on BiPAP. BiPAP and inhaler therapy with oxygen supplementation as required. Because of her history and clinical presentation she is not suspected of Covid-19 coronavirus (5) Coronary artery disease Qualifiers: Coronary Disease-Associated Artery/Lesion type: [place] artery [place] vs. transplanted heart: [place] heart Associated angina: without angina Qualified Code(s): I25.10 - Atherosclerotic heart disease of [place] [facility] Is this a current diagnosis for this admission?: Yes Plan: Currently no evidence of acute coronary syndrome. We will continue current management. Continue telemetry monitoring as well. (6) Depression Qualifiers: Depression Type: major depressive disorder Major depression recurrence: recurrent Active/Remission status: currently active Major depression episode severity: moderate Qualified Code(s): F33.1 - Major depressive disorder, recurrent, moderate Is this a current diagnosis for this admission?: Yes Plan: We will continue antidepressant and antianxiety medications. (7) HTN (hypertension) Qualifiers: Hypertension type: essential hypertension Qualified Code(s): I10 - Essential (primary) hypertension Is this a current diagnosis for this admission?: Yes Plan: Continue current regimen. Adjust as needed. She is on multiple medications at this time. (8) Urinary tract infection Qualifiers: Urinary tract infection type: acute cystitis Hematuria presence: without hematuria Qualified Code(s): N30.00 - Acute cystitis without hematuria Is this a current diagnosis for this admission?: Yes Plan: The patient's urinalysis suggests infection. A urine culture was requested. She will be on broad-spectrum antibiotics for pneumonia which will cover any pathogens in the urine.
--- NOTE | 2019-05-23 16:09 | RADIOLOGY REPORT (SQ) ---
EXAM DESCRIPTION: CHEST 2 VIEWS COMPLETED DATE/TIME: 05/23/2019 3:26 pm REASON FOR STUDY: chf COMPARISON: 05/21/2019 NUMBER OF VIEWS: Two view TECHNIQUE: Frontal and lateral radiographic images of the chest acquired. LIMITATIONS: None. FINDINGS: LUNGS AND PLEURA: Airspace disease in the right lung not significantly changed. MEDIASTINUM AND HILAR STRUCTURES: Stable heart size and mediastinal structures. HEART AND VASCULAR STRUCTURES: Stable appearance. SUPPORT DEVICES: Appropriate location without change. BONES: No acute findings. OTHER: No other significant finding. IMPRESSION: Pneumonia or asymmetric edema. No significant change. TECHNICAL DOCUMENTATION: JOB ID: [id number] 2010 [employer]- All Rights Reserved Reading location - IP/workstation name: [email or web address]
[2019-05-23] MEDS: ACETAMINOPHEN 325 MG TABLET PO PRN (20:26)
[2019-05-23] MEDS: ATORVASTATIN CALCIUM 80 MG TABLET PO SCH (21:18)
[2019-05-23] MEDS: SENNOSIDES/DOCUSATE 8.6-50 MG 1 EACH TABLET PO SCH (21:18)
[2019-05-23] MEDS: MELATONIN 5 MG TABLET PO SCH (21:19)
--- NOTE | 2019-05-23 22:56 | Progress Note ---
Provider Note Provider Note: CARDIOLOGY PROGRESS NOTE by Dr. Griselda Martin on 05/23/2019. OBJECTIVE: The patient states she is slightly more short of breath. She still has some cough with productive of yellowish sputum. She is on the BiPAP at present. There is no recurrence of atrial fibrillation. There is no medical arrhythmias. There is no firing of AICD. She denies chest pain but has shortness of breath and orthopnea. There is no PND and her leg edema is slightly improved. PHYSICAL EXAMINATION: The patient is morbidly obese. In mild distress on the BiPAP. Selected Entries 05/23/19 07:18 Temperature 97.5 F Temperature Axillary Source Pulse Rate 61 Respiratory 12 Rate Blood Pressure 91/48 L Blood Pressure 62 Mean BP Location Left Arm BP Position Supine O2 Sat by Pulse 97 Oximetry Oxygen Delivery Bipap Method Percent of 40 Oxygen HEAD: Is atraumatic normocephalic. EYES: Pupils are equal round regular reactive to light. HEENT is negative. SKIN: There is no skin rashes or skin lesions. There is no particular ecchymosis. NECK: Is supple. There is mild JVD present. Carotids are equal there is no bruits. There is no lymphadenopathy. There is no goiter. There is no accessory muscle respiration use. Trachea central. LUNGS: . There is diminished air entry. On percussion there is hyperresonance. On palpation there is no chest wall tenderness. HEART: S1-S2 is heard. There is no S3 gallop. There is no S4 gallop. There is systolic murmur mitral regurgitation tricuspid regurgitation present. There is no aortic stenosis murmur. There is no aortic insufficiency murmur. There is no rub. ABDOMEN: Is obese. Nontender. There is no hepatosplenomegaly. Bowel sounds are well heard. There is no rebound guarding or rigidity. EXTREMITIES: Femorals are deep. Femorals are diminished. There is no femoral bruits. There is decreased leg pulses. There is mild pedal edema. 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 PSYCHIATRIC: The patient judgment insight are intact. She does not appear to be agitated or anxious. Labs- All tests 24 hr 05/23/19 05:30 WBC 5.3 RBC 3.25 L Hgb 9.8 L Hct 30.5 L MCV 94 MCH 30.2 MCHC 32.1 RDW 18.4 H Plt Count 285 Chest X-Ray 05/21/19 03:19 IMPRESSION: Right upper lobe and right lower lobe pneumonia versus residual interstitial edema from prior CHF. Moderate to marked enlargement of the cardiac silhouette. A 3-lead left pacer defibrillator remains in place. Sternotomy wires. copyright 2010 [employer]- All Rights Reserved Chest X-Ray 05/23/19 00:00 IMPRESSION: Pneumonia or asymmetric edema. No significant change. IMPRESSION/RECOMMENDATION: 1. Acute on chronic respiratory failure. This is secondary to pneumonia, obstructive sleep apnea, and acute on chronic systolic heart failure 2. Recurrent right lower lobe pneumonia: Continue antibiotics and BiPAP. 3. Acute on chronic systolic heart failure. Patient with LV ejection fraction of 25%. Continue beta-blockers and Entresto. Continue diuretics. Continue Entresto 4. Acute exacerbation COPD: Continue bronchodilators 5. History of MRSA pneumonia: The patient had a 6-week course of antibiotics and her last blood culture was negative. We will see if the repeat blood cultures come back negative or positive. 6. History of amiodarone toxicity. Would recommend avoiding amiodarone 7. Acute on chronic kidney disease: Watch renal function as we implement aggressive diuresis. 8. Cardiomyopathy with severely reduced LV ejection fraction. Continue beta- rip and Entresto and Lasix. 9. Paroxysmal atrial fibrillation: Continue beta-rip. The patient Eliquis had to be stopped due to patient's anemia and also prior occult positive bloo blood in the stools. The patient later will be restarted on Eliquis. 10. History of ventricular tachycardia, The patient has an AICD placed. If there is recurrence of ventricular tachycardia or major ventricular ectopic activity then would start the patient on small dose of sotalol. Would avoid amiodarone. 11. Hypertension: Blood pressure well controlled, on current medications. 12. Coronary artery disease: History of [place] and history of coronary bypass graft surgery. No evidence of acute coronary syndrome/non-ST ST elevation [place] this admission. 13. Obstructive sleep apnea. Note patient has been noncompliant with CPAP. 14. AICD placement: Note the patient's basal rate is around 60 bpm. If the patient's heart failure continues then would recommend increasing the basal heart rate to 80 bpm to help combat the heart failure along with diuretics. Medications reviewed. Medical management and medication regimen have been discussed with attending physician in detail. Medical decision making is of high complexity. 40 minutes spent as patient more than 50% time spent in direct patient care. Will follow.
[2019-05-24] MEDS: IPRATROPIUM/ALBUTEROL 0.5-2.5 MG/3 ML AMPUL NEB SCH ×3 (00:02→16:38)
[2019-05-24] MEDS: OXYCODONE-ACETAMINOPHEN 5-325 MG TABLET PO PRN ×3 (05:34→17:25)
[2019-05-24] MEDS: MEROPENEM 1 GM in NORMAL SALINE 50 ML IV SCH ×3 (05:34→21:50)
[2019-05-24 10:46] LABS: VANCOMYCIN,TROUGH 18.9 ug/mL (5.0-20.0)
--- NOTE | 2019-05-24 11:09 | PDOC PROGRESS REPORT ---
Subjective Progress Note for:: 05/24/19 Subjective:: 05/22/2019: Patient was seen and examined. She is on BiPAP. She says her symptoms is improving with treatment. 05/23/2019: Patient was seen and examined. Patient still on BiPAP. But overall she is feeling better. 05/24/2019: Patient was seen and examined. She uses BiPAP at night. She also uses BiPAP sporadically during the day. She is still feeling short of breath but in general slightly better. Is afebrile and her white count is normal. Coughing has improved. Physical examination: Patient is mild respiratory distress on BiPAP. Alert oriented to time place person No anxiety or depression Head: atraumatic normocephalic Pupils: are equal reactive Neck: is supple and trachea is central no lymphadenopathy No pharyngeal erythema or exudates Heart: Regular rate and rhythm, positive peripheral edema Lungs: Mild respiratory distress, coarse breathing sounds bilaterally Abdomen: nontender nondistended Neurological exam: unremarkable Musculoskeletal: No joint swelling or effusion chronic lower back pain and tenderness No suicidal or homicidal ideation Reason For Visit: COMMUNITY ACQUIRED PNEUMONIA,HEART FAILURE Physical Exam Vital Signs: Temp Pulse Resp BP Pulse Ox 97.5 F 60 24 H 94/66 L 94 05/24/19 07:30 05/24/19 09:03 05/24/19 09:03 05/24/19 07:30 05/24/19 09:03 Intake & Output 05/23/19 05/24/19 05/25/19 06:59 06:59 06:59 Intake Total 1630 1975 Output Total 1925 1925 Balance -295 50 Weight 233 lb 7.512 oz 235 lb 0.204 oz Results Laboratory Results: 05/23/19 05:30 05/24/19 09:23 05/24/19 09:23 Creatinine 1.04 Est GFR ( Amer) > 60 05/22/19 13:40 Catheterized Urine Urine Culture - Final NO GROWTH 2 DAYS 05/21/19 17:25 Sputum Gram Stain - Final 05/21/19 17:25 Sputum Sputum Culture - Final NORMAL JARED 05/21/19 03:10 Troponin I 0.055 NT-Pro-B Natriuret Pep 28826 H Impressions: Chest X-Ray 05/23/19 00:00 IMPRESSION: Pneumonia or asymmetric edema. No significant change. Assessment and Plan - Plan Summary Summary: (1) Pneumonia Qualifiers: Pneumonia type: due to unspecified organism Laterality: bilateral Lung location: unspecified part of lung Qualified Code(s): J18.9 - Pneumonia, unspecified organism Is this a current diagnosis for this admission?: Yes Plan: The patient has had a productive cough. Sputum has been sent. The patient has a history of MRSA pneumonia. She will be on meropenem and vancomycin. X-ray suggest bilateral pneumonia. Appears to be improving. Continue current medications. Afebrile and white count is normal. Repeat x-ray is about the same. May need CT scan of the chest. (2) Acute on chronic systolic congestive heart failure, NYHA class 3 Is this a current diagnosis for this admission?: Yes Plan: The pneumonia has likely precipitated an exacerbation of her chronic severe congestive heart failure. Continue current diuretics. Continue beta-rip therapy. Appreciate Dr. Melyssa kan. (3) CKD (chronic kidney disease) Qualifiers: Chronic kidney disease stage: stage 3 (moderate) Qualified Code(s): N18.3 - Chronic kidney disease, stage 3 (moderate) Is this a current diagnosis for this admission?: Yes Plan: Her serum creatinine is at her baseline. Monitor renal function. (4) COPD (chronic obstructive pulmonary disease) Qualifiers: COPD type: unspecified COPD Qualified Code(s): J44.9 - Chronic obstructive pulmonary disease, unspecified Is this a current diagnosis for this admission?: Yes Plan: The patient is currently on BiPAP. BiPAP and inhaler therapy with oxygen supplementation as required. Because of her history and clinical presentation she is not suspected of Covid-19 coronavirus (5) Coronary artery disease Qualifiers: Coronary Disease-Associated Artery/Lesion type: [place] artery [place] vs. transplanted heart: [place] heart Associated angina: without angina Qualified Code(s): I25.10 - Atherosclerotic heart disease of [place] coronary artery without angina pectoris Is this a current diagnosis for this admission?: Yes Plan: Currently no evidence of acute coronary syndrome. We will continue current management. Continue telemetry monitoring as well. (6) Depression Qualifiers: Depression Type: major depressive disorder Major depression recurrence: recurrent Active/Remission status: currently active Major depression episode severity: moderate Qualified Code(s): F33.1 - Major depressive disorder, recurrent, moderate Is this a current diagnosis for this admission?: Yes Plan: We will continue antidepressant and antianxiety medications. (7) HTN (hypertension) Qualifiers: Hypertension type: essential hypertension Qualified Code(s): I10 - Essential (primary) hypertension Is this a current diagnosis for this admission?: Yes Plan: Continue current regimen. Adjust as needed. She is on multiple medications at this time. (8) Urinary tract infection Qualifiers: Urinary tract infection type: acute cystitis Hematuria presence: without hematuria Qualified Code(s): N30.00 - Acute cystitis without hematuria Is this a current diagnosis for this admission?: Yes Plan: The patient's urinalysis suggests infection. Urine culture is negative up-to-date.
[2019-05-24] MEDS: MIDODRINE HCL 5 MG TABLET PO SCH ×3 (11:27→17:25)
[2019-05-24] MEDS: METOPROLOL SUCCINATE 25 MG TAB.SR.24H PO SCH ×2 (11:27→21:51)
[2019-05-24] MEDS: VANCOMYCIN HCL 750 MG in DEXTROSE 5%-WATER 250 ML IV SCH ×2 (11:27→21:49)
[2019-05-24] MEDS: DOCUSATE SODIUM 100 MG CAPSULE PO SCH ×2 (11:28→17:25)
[2019-05-24] MEDS: FUROSEMIDE 40 MG TABLET PO SCH (11:28)
[2019-05-24] MEDS: FAMOTIDINE 20 MG TABLET PO SCH ×2 (11:28→21:50)
[2019-05-24] MEDS: SACUBITRIL/VALSARTAN 49 MG/51 MG TABLET PO SCH ×2 (11:29→17:26)
[2019-05-24] MEDS: ASPIRIN 81 MG TABLET, ENT COATED PO SCH (11:29)
[2019-05-24] MEDS: ISOSORBIDE MONONITRATE 30 MG TAB.ER.24H PO SCH (11:29)
[2019-05-24] MEDS: APIXABAN 2.5 MG TABLET PO SCH ×2 (11:30→17:25)
[2019-05-24] MEDS: BUSPIRONE HCL 10 MG TABLET PO SCH ×2 (11:30→17:25)
[2019-05-24 11:36] LABS: ANION GAP 12 (5-19); BLOOD UREA NITROGEN 12 mg/dL (7-20); CALCIUM 9.6 mg/dL (8.4-10.2); CARBON DIOXIDE 29 mmol/L (22-30); CHLORIDE 102 mmol/L (98-107); GLUCOSE 92 mg/dL (75-110); POTASSIUM 4.7 mmol/L (3.6-5.0)
[2019-05-24] MEDS: PAROXETINE HCL 20 MG TABLET PO SCH (11:36)
[2019-05-24] MEDS: ALPRAZOLAM 0.5 MG TABLET PO PRN (17:25)
--- NOTE | 2019-05-24 19:01 | Progress Note ---
Provider Note Provider Note: CARDIOLOGY PROGRESS NOTE by Dr. Griselda Martin on 05/24/2019. PHYSICAL EXAMINATION: The patient states that she is more short of breath. She also has orthopnea. Patient is on BiPAP. There is no chest pain or discomfort. She continues to have cough productive of greenish sputum. She has some mild leg edema. There is no recurrence of atrial fibrillation. There is no ventricular tachycardia. There is no firing of the AICD. There is no bleeding on Eliquis. There is no TIA CVA symptoms. PHYSICAL EXAMINATION: The patient is morbidly obese. In in mild to moderate respiratory distress on BiPAP. Selected Entries 05/24/19 05/24/19 15:41 16:41 Temperature 97.2 F Temperature Axillary Source Pulse Rate 61 Respiratory 16 Rate Blood Pressure 113/69 Blood Pressure 83 Mean BP Location Right Arm BP Position Supine O2 Sat by Pulse 100 Oximetry Fraction of 40 Inspired Oxygen (FIO2) Oxygen Delivery Bipap Method HEAD: Is atraumatic normocephalic. EYES: Pupils are equal round regular reactive to light. HEENT is negative. SKIN: There is no skin rashes or skin lesions. There is no particular ecchymosis. NECK: Is supple. There is mild JVD present. Carotids are equal there is no bruits. There is no lymphadenopathy. There is no goiter. There is no accessory muscle respiration use. Trachea central. LUNGS: . There is diminished air entry. On percussion there is hyperresonance. On palpation there is no chest wall tenderness. HEART: S1-S2 is heard. There is no S3 gallop. There is no S4 gallop. There is systolic murmur mitral regurgitation tricuspid regurgitation present. There is no aortic stenosis murmur. There is no aortic insufficiency murmur. There is no rub. ABDOMEN: Is obese. Nontender. There is no hepatosplenomegaly. Bowel sounds are well heard. There is no rebound guarding or rigidity. EXTREMITIES: Femorals are deep. Femorals are diminished. There is no femoral bruits. There is decreased leg pulses. There is mild pedal edema. 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 PSYCHIATRIC: The patient judgment insight are intact. She does not appear to be agitated or anxious. Labs- All tests 24 hr 05/24/19 05/24/19 05/24/19 09:23 09:23 09:23 Sodium 143.2 Potassium 4.7 Chloride 102 Carbon Dioxide 29 Anion Gap 12 BUN 12 Creatinine 1.04 1.11 Est GFR ( Amer) > 60 > 60 Est GFR (MDRD) Non-Af 57 L 53 L Glucose 92 Calcium 9.6 Time Trough Drawn 0923 Vancomycin Trough 18.9 Chest X-Ray 05/21/19 03:19 IMPRESSION: Right upper lobe and right lower lobe pneumonia versus residual interstitial edema from prior CHF. Moderate to marked enlargement of the cardiac silhouette. A 3-lead left pacer defibrillator remains in place. Sternotomy wires. copyright 2010 [employer]- All Rights Reserved Chest X-Ray 05/23/19 00:00 IMPRESSION: Pneumonia or asymmetric edema. No significant change. IMPRESSION/RECOMMENDATION: 1. Acute on chronic respiratory failure. This is secondary to pneumonia, obstructive sleep apnea, and acute on chronic systolic heart failure 2. Recurrent right lower lobe pneumonia: Continue antibiotics and BiPAP. 3. Acute on chronic systolic heart failure. Patient with LV ejection fraction of 25%. Continue beta-blockers and Entresto. Continue diuretics. Continue Entresto 4. Acute exacerbation COPD: Continue bronchodilators 5. History of MRSA pneumonia: The patient had a 6-week course of antibiotics and her last blood culture was negative. We will see if the repeat blood cultures come back negative or positive. 6. History of amiodarone toxicity. Would recommend avoiding amiodarone 7. Acute on chronic kidney disease: Watch renal function as we implement aggressive diuresis. 8. Cardiomyopathy with severely reduced LV ejection fraction. Continue beta- rip and Entresto and Lasix. 9. Paroxysmal atrial fibrillation: Continue beta-rip. The patient Eliquis had to be stopped due to patient's anemia and also prior occult positive bloo blood in the stools. The patient later will be restarted on Eliquis. 10. History of ventricular tachycardia, The patient has an AICD placed. If there is recurrence of ventricular tachycardia or major ventricular ectopic activity then would start the patient on small dose of sotalol. Would avoid amiodarone. 11. Hypertension: Blood pressure well controlled, on current medications. 12. Coronary artery disease: History of [place] and history of coronary bypass graft surgery. No evidence of acute coronary syndrome/non-ST ST elevation [place] this admission. 13. Obstructive sleep apnea. Note patient has been noncompliant with CPAP. 14. AICD placement: Note the patient's basal rate is around 60 bpm. If the patient's heart failure continues then would recommend increasing the basal heart rate to 80 bpm to help combat the heart failure along with diuretics. Medications reviewed. Medical management and medication regimen have been discussed with attending physician in detail. Medical decision making is of high complexity. 40 minutes spent as patient more than 50% time spent in direct patient care. Will follow.
[2019-05-24] MEDS: ATORVASTATIN CALCIUM 80 MG TABLET PO SCH (21:51)
[2019-05-24] MEDS: MELATONIN 5 MG TABLET PO SCH (21:51)
[2019-05-24] MEDS: SENNOSIDES/DOCUSATE 8.6-50 MG 1 EACH TABLET PO SCH (21:51)
[2019-05-25] MEDS: IPRATROPIUM/ALBUTEROL 0.5-2.5 MG/3 ML AMPUL NEB SCH ×3 (00:17→16:22)
[2019-05-25] MEDS: ALPRAZOLAM 0.5 MG TABLET PO PRN ×2 (03:30→17:47)
[2019-05-25] MEDS: MEROPENEM 1 GM in NORMAL SALINE 50 ML IV SCH ×3 (06:05→22:50)
[2019-05-25 06:29] LABS: HEMATOCRIT 30.1 % (36.0-47.0); HEMOGLOBIN 9.8 g/dL (12.0-15.5); MEAN CORPUSCULAR HEMOGLOBIN 30.9 pg (27.0-33.4); MEAN CORPUSCULAR HGB CONC 32.7 g/dL (32.0-36.0); MEAN CORPUSCULAR VOLUME 94 fl (80-97); PLATELET COUNT 281 10^3/uL (150-450); RED BLOOD COUNT 3.19 10^6/uL (3.72-5.28); RED CELL DISTRIBUTION WIDTH 18.5 % (11.5-14.0); WHITE BLOOD COUNT 4.4 10^3/uL (4.0-10.5)
[2019-05-25] MEDS: FUROSEMIDE 40 MG TABLET PO SCH (11:40)
[2019-05-25] MEDS: DOCUSATE SODIUM 100 MG CAPSULE PO SCH ×2 (11:40→17:48)
[2019-05-25] MEDS: APIXABAN 2.5 MG TABLET PO SCH ×2 (11:40→17:47)
[2019-05-25] MEDS: MIDODRINE HCL 5 MG TABLET PO SCH ×3 (11:41→17:48)
[2019-05-25] MEDS: BUSPIRONE HCL 10 MG TABLET PO SCH ×2 (11:41→17:48)
[2019-05-25] MEDS: ASPIRIN 81 MG TABLET, ENT COATED PO SCH (11:41)
[2019-05-25] MEDS: FAMOTIDINE 20 MG TABLET PO SCH ×2 (11:42→22:50)
[2019-05-25] MEDS: PAROXETINE HCL 20 MG TABLET PO SCH (11:43)
[2019-05-25] MEDS: VANCOMYCIN HCL 750 MG in DEXTROSE 5%-WATER 250 ML IV SCH (11:46)
--- NOTE | 2019-05-25 11:53 | PDOC PROGRESS REPORT ---
Subjective Progress Note for:: 05/25/19 Subjective:: 05/22/2019: Patient was seen and examined. She is on BiPAP. She says her symptoms is improving with treatment. 05/23/2019: Patient was seen and examined. Patient still on BiPAP. But overall she is feeling better. 05/24/2019: Patient was seen and examined. She uses BiPAP at night. She also uses BiPAP sporadically during the day. She is still feeling short of breath but in general slightly better. Is afebrile and her white count is normal. Coughing has improved. 05/25/2019: Patient seen and examined. She was on nasal cannula oxygen. She slightly feels better. White count is normal. Afebrile. She still on IV antibiotics. CT scan of the chest ordered today and pending. Physical examination: Patient is mild respiratory distress on BiPAP. Alert oriented to time place person No anxiety or depression Head: atraumatic normocephalic Pupils: are equal reactive Neck: is supple and trachea is central no lymphadenopathy No pharyngeal erythema or exudates Heart: Regular rate and rhythm, positive peripheral edema Lungs: Mild respiratory distress, coarse breathing sounds bilaterally Abdomen: nontender nondistended Neurological exam: unremarkable Musculoskeletal: No joint swelling or effusion chronic lower back pain and tenderness No suicidal or homicidal ideation Reason For Visit: COMMUNITY ACQUIRED PNEUMONIA,HEART FAILURE Physical Exam Vital Signs: Temp Pulse Resp BP Pulse Ox 97.6 F 69 17 92/61 L 94 05/25/19 08:40 05/25/19 08:40 05/25/19 08:40 05/25/19 08:40 05/25/19 08:40 Intake & Output 05/24/19 05/25/19 05/26/19 06:59 06:59 06:59 Intake Total 1974 1729 Output Total 1924 1999 Balance 50 -270 Weight 235 lb 0.204 oz 235 lb 0.204 oz Results Laboratory Results: 05/25/19 06:18 05/24/19 09:23 05/25/19 06:18 WBC 4.4 RBC 3.19 L Hgb 9.8 L Hct 30.1 L MCV 94 MCH 30.9 MCHC 32.7 RDW 18.5 H Plt Count 281 05/22/19 13:40 Catheterized Urine Urine Culture - Final NO GROWTH 2 DAYS 05/21/19 03:10 Troponin I 0.055 NT-Pro-B Natriuret Pep 37946 H Impressions: Chest X-Ray 05/23/19 00:00 IMPRESSION: Pneumonia or asymmetric edema. No significant change. Assessment and Plan - Plan Summary Summary: (1) Pneumonia Qualifiers: Pneumonia type: due to unspecified organism Laterality: bilateral Lung location: unspecified part of lung Qualified Code(s): J18.9 - Pneumonia, unspecified organism Is this a current diagnosis for this admission?: Yes Plan: The patient has had a productive cough. Sputum has been sent. The patient has a history of MRSA pneumonia. She will be on meropenem and vancomycin. X-ray suggest bilateral pneumonia. Appears to be improving. Continue current medications. Afebrile and white count is normal. Repeat x-ray is about the same. Follow-up results CT scan of the chest. I think it is okay to stop vancomycin today and continue meropenem. Monitor clinically. (2) Acute on chronic systolic congestive heart failure, NYHA class 3 Is this a current diagnosis for this admission?: Yes Plan: The pneumonia has likely precipitated an exacerbation of her chronic severe congestive heart failure. Continue current diuretics. Continue beta-rip therapy. Appreciate Dr. Melyssa kan. (3) CKD (chronic kidney disease) Qualifiers: Chronic kidney disease stage: stage 3 (moderate) Qualified Code(s): N18.3 - Chronic kidney disease, stage 3 (moderate) Is this a current diagnosis for this admission?: Yes Plan: Her serum creatinine is at her baseline. Monitor renal function. (4) COPD (chronic obstructive pulmonary disease) Qualifiers: COPD type: unspecified COPD Qualified Code(s): J44.9 - Chronic obstructive pulmonary disease, unspecified Is this a current diagnosis for this admission?: Yes Plan: The patient is currently on BiPAP. BiPAP and inhaler therapy with oxygen supplementation as required. Because of her history and clinical presentation she is not suspected of Covid-19 coronavirus (5) Coronary artery disease Qualifiers: Coronary Disease-Associated Artery/Lesion type: [place] artery [place] vs. transplanted heart: [place] heart Associated angina: without angina Qualified Code(s): I25.10 - Atherosclerotic heart disease of [place] coronary artery without angina pectoris Is this a current diagnosis for this admission?: Yes Plan: Currently no evidence of acute coronary syndrome. We will continue current management. Continue telemetry monitoring as well. (6) Depression Qualifiers: Depression Type: major depressive disorder Major depression recurrence: recurrent Active/Remission status: currently active Major depression episode severity: moderate Qualified Code(s): F33.1 - Major depressive disorder, recurrent, moderate Is this a current diagnosis for this admission?: Yes Plan: We will continue antidepressant and antianxiety medications. (7) HTN (hypertension) Qualifiers: Hypertension type: essential hypertension Qualified Code(s): I10 - Essential (primary) hypertension Is this a current diagnosis for this admission?: Yes Plan: Continue current regimen. Adjust as needed. She is on multiple medications at this time. (8) Urinary tract infection Qualifiers: Urinary tract infection type: acute cystitis Hematuria presence: without hematuria Qualified Code(s): N30.00 - Acute cystitis without hematuria Is this a current diagnosis for this admission?: Yes Plan: The patient's urinalysis suggests infection. Urine culture is negative up-to-date.
[2019-05-25 12:23] LABS: ANION GAP 6 (5-19); BLOOD UREA NITROGEN 11 mg/dL (7-20); CALCIUM 8.7 mg/dL (8.4-10.2); CARBON DIOXIDE 33 mmol/L (22-30); CHLORIDE 100 mmol/L (98-107); GLUCOSE 88 mg/dL (75-110)
--- NOTE | 2019-05-25 12:25 | CDI QUERY ---
CDI Query CDI Review: Dear Provider: To better reflect your patients severity of illness, morbidity, and resource utilization Please specify and document in the Progress Notes and Discharge Summary if you are monitoring / treating / evaluating any of the following conditions: Query Clinical indicators Please remember to include in your Discharge Summary these diagnoses, present on admission, as documented in the Cardiology Consult notes. The Primary Provider must include all diagnoses in his / her documentation if they agree with consultants in order for the information to be captured. Per Cardiology Consult: IMPRESSION/RECOMMENDATION: 1. Acute on chronic respiratory failure. This is secondary to pneumonia, obstructive sleep apnea, and acute on chronic systolic heart failure 3. Acute on chronic systolic heart failure. Patient with LV ejection fraction of 25%. Continue beta-blockers and Entresto. Continue diuretics. Continue Entresto 4. Acute exacerbation COPD: Continue bronchodilators 5. History of MRSA pneumonia: 7. Acute on chronic kidney disease: 8. Cardiomyopathy with severely reduced LV ejection fraction. 9. Paroxysmal atrial fibrillation. 13. Obstructive sleep apnea. Note patient has been noncompliant with CPAP. Most likely has significant pulmonary hypertension. The terms probable, suspected, likely, possible or still to be ruled out may be used if you are unable to determine the exact nature of a condition. Thank you for your consideration, Clinical Documentation [facility] MUNIR Llamas RN, BSN RN Office [phone] Office [phone]
[2019-05-25] MEDS: ISOSORBIDE MONONITRATE 30 MG TAB.ER.24H PO SCH (12:51)
[2019-05-25] MEDS: SACUBITRIL/VALSARTAN 49 MG/51 MG TABLET PO SCH ×2 (12:51→17:48)
[2019-05-25] MEDS: METOPROLOL SUCCINATE 25 MG TAB.SR.24H PO SCH ×2 (12:51→22:53)
[2019-05-25] MEDS: OXYCODONE-ACETAMINOPHEN 5-325 MG TABLET PO PRN ×2 (17:47→22:56)
--- NOTE | 2019-05-25 18:20 | Progress Note ---
Provider Note Provider Note: CARDIOLOGY PROGRESS NOTE by Dr. Griselda Martin on 05/25/2019. SUBJECTIVE: The patient states she is slightly better. Her breathing is slightly improved. She still has orthopnea. There is no PND. There is some mild leg edema. There is no chest pain or discomfort. There is no recurrence of atrial fibrillation. There is no ventricular arrhythmia seen on the monitor. There is no firing of AICD. PHYSICAL EXAMINATION: The patient is morbidly obese. In mild respiratory distress. Selected Entries 05/25/19 11:20 Temperature 97.7 F Temperature Axillary Source Pulse Rate 61 Respiratory 20 Rate Blood Pressure 94/52 L Blood Pressure 66 Mean BP Location Left Arm BP Position Supine O2 Sat by Pulse 94 Oximetry Oxygen Delivery Room Air Method HEAD: Is atraumatic normocephalic. EYES: Pupils are equal round regular reactive to light. HEENT is negative. SKIN: There is no skin rashes or skin lesions. There is no particular ecchymosis. NECK: Is supple. There is mild JVD present. Carotids are equal there is no bruits. There is no lymphadenopathy. There is no goiter. There is no accessory muscle respiration use. Trachea central. LUNGS: . There is diminished air entry. On percussion there is hyperresonance. On palpation there is no chest wall tenderness. HEART: S1-S2 is heard. There is no S3 gallop. There is no S4 gallop. There is systolic murmur mitral regurgitation tricuspid regurgitation present. There is no aortic stenosis murmur. There is no aortic insufficiency murmur. There is no rub. ABDOMEN: Is obese. Nontender. There is no hepatosplenomegaly. Bowel sounds are well heard. There is no rebound guarding or rigidity. EXTREMITIES: Femorals are deep. Femorals are diminished. There is no femoral bruits. There is decreased leg pulses. There is mild pedal edema. 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 PSYCHIATRIC: The patient judgment insight are intact. She does not appear to be agitated or anxious. Labs- All tests 24 hr 05/25/19 05/25/19 06:18 06:18 WBC 4.4 RBC 3.19 L Hgb 9.8 L Hct 30.1 L MCV 94 MCH 30.9 MCHC 32.7 RDW 18.5 H Plt Count 281 Sodium 139.1 Potassium 4.0 Chloride 100 Carbon Dioxide 33 H Anion Gap 6 BUN 11 Creatinine 1.07 Est GFR ( Amer) > 60 Est GFR (MDRD) Non-Af 55 L Glucose 88 Calcium 8.7 Chest X-Ray 05/21/19 03:19 IMPRESSION: Right upper lobe and right lower lobe pneumonia versus residual interstitial edema from prior CHF. Moderate to marked enlargement of the cardiac silhouette. A 3-lead left pacer defibrillator remains in place. Sternotomy wires. copyright 2010 [employer]- All Rights Reserved Chest X-Ray 05/23/19 00:00 IMPRESSION: Pneumonia or asymmetric edema. No significant change. IMPRESSION/RECOMMENDATION: 1. Acute on chronic respiratory failure. This is secondary to pneumonia, obstructive sleep apnea, and acute on chronic systolic heart failure 2. Recurrent right lower lobe pneumonia: Continue antibiotics and BiPAP. 3. Acute on chronic systolic heart failure. Patient with LV ejection fraction of 25%. Continue beta-blockers and Entresto. Continue diuretics. Continue Entresto 4. Acute exacerbation COPD: Continue bronchodilators 5. History of MRSA pneumonia: The patient had a 6-week course of antibiotics and her last blood culture was negative. We will see if the repeat blood cultures come back negative or positive. 6. History of amiodarone toxicity. Would recommend avoiding amiodarone 7. Acute on chronic kidney disease: Watch renal function as we implement aggressive diuresis. 8. Cardiomyopathy with severely reduced LV ejection fraction. Continue beta- rip and Entresto and Lasix. 9. Paroxysmal atrial fibrillation: Continue beta-rip. The patient Eliquis had to be stopped due to patient's anemia and also prior occult positive bloo blood in the stools. The patient later will be restarted on Eliquis. 10. History of ventricular tachycardia, The patient has an AICD placed. If there is recurrence of ventricular tachycardia or major ventricular ectopic activity then would start the patient on small dose of sotalol. Would avoid amiodarone. 11. Hypertension: Blood pressure well controlled, on current medications. 12. Coronary artery disease: History of [place] and history of coronary bypass graft surgery. No evidence of acute coronary syndrome/non-ST ST elevation [place] this admission. 13. Obstructive sleep apnea. Note patient has been noncompliant with CPAP. 14. AICD placement: Note the patient's basal rate is around 60 bpm. If the patient's heart failure continues then would recommend increasing the basal heart rate to 80 bpm to help combat the heart failure along with diuretics. Medications reviewed. Medical management and medication regimen have been discussed with attending physician in detail. Medical decision making is of high complexity. 40 minutes spent as patient more than 50% time spent in direct patient care. Will follow.
[2019-05-25] MEDS: MELATONIN 5 MG TABLET PO SCH (22:49)
[2019-05-25] MEDS: ATORVASTATIN CALCIUM 80 MG TABLET PO SCH (22:49)
[2019-05-25] MEDS: SENNOSIDES/DOCUSATE 8.6-50 MG 1 EACH TABLET PO SCH (22:50)
[2019-05-26] MEDS: IPRATROPIUM/ALBUTEROL 0.5-2.5 MG/3 ML AMPUL NEB SCH ×3 (00:04→16:34)
[2019-05-26 05:08] LABS: HEMATOCRIT 28.7 % (36.0-47.0); HEMOGLOBIN 9.6 g/dL (12.0-15.5); MEAN CORPUSCULAR HEMOGLOBIN 30.9 pg (27.0-33.4); MEAN CORPUSCULAR HGB CONC 33.3 g/dL (32.0-36.0); MEAN CORPUSCULAR VOLUME 93 fl (80-97); PLATELET COUNT 246 10^3/uL (150-450); RED BLOOD COUNT 3.09 10^6/uL (3.72-5.28); RED CELL DISTRIBUTION WIDTH 18.3 % (11.5-14.0); WHITE BLOOD COUNT 3.2 10^3/uL (4.0-10.5)
[2019-05-26] MEDS: MEROPENEM 1 GM in NORMAL SALINE 50 ML IV SCH ×3 (05:50→22:03)
--- NOTE | 2019-05-26 12:22 | PDOC PROGRESS REPORT ---
Subjective Progress Note for:: 05/26/19 Subjective:: 05/22/2019: Patient was seen and examined. She is on BiPAP. She says her symptoms is improving with treatment. 05/23/2019: Patient was seen and examined. Patient still on BiPAP. But overall she is feeling better. 05/24/2019: Patient was seen and examined. She uses BiPAP at night. She also uses BiPAP sporadically during the day. She is still feeling short of breath but in general slightly better. Is afebrile and her white count is normal. Coughing has improved. 05/25/2019: Patient seen and examined. She was on nasal cannula oxygen. She slightly feels better. White count is normal. Afebrile. She still on IV antibiotics. CT scan of the chest ordered today and pending. 05/26/2019: Patient was seen and examined. She alternates between nasal cannula oxygen and BiPAP. She continues to feel better. We will stop vancomycin and continued meropenem yesterday. CT scan of the chest is still pending. Physical examination: Patient is mild respiratory distress on BiPAP. Alert oriented to time place person No anxiety or depression Head: atraumatic normocephalic Pupils: are equal reactive Neck: is supple and trachea is central no lymphadenopathy No pharyngeal erythema or exudates Heart: Regular rate and rhythm, positive peripheral edema Lungs: Mild respiratory distress, coarse breathing sounds bilaterally Abdomen: nontender nondistended Neurological exam: unremarkable Musculoskeletal: No joint swelling or effusion chronic lower back pain and tenderness No suicidal or homicidal ideation Reason For Visit: COMMUNITY ACQUIRED PNEUMONIA,HEART FAILURE Physical Exam Vital Signs: Temp Pulse Resp BP Pulse Ox 97.4 F 62 15 116/62 98 05/26/19 07:47 05/26/19 08:24 05/26/19 08:24 05/26/19 07:47 05/26/19 08:24 Intake & Output 05/25/19 05/26/19 05/27/19 06:59 06:59 06:59 Intake Total 1780 4 50 Output Total 1999 2774 Balance -220 -711 50 Weight 235 lb 0.204 oz 238 lb 5.115 oz Results Laboratory Results: 05/26/19 04:56 05/25/19 06:18 05/25/19 05/26/19 06:18 04:56 WBC 3.2 L RBC 3.09 L Hgb 9.6 L Hct 28.7 L MCV 93 MCH 30.9 MCHC 33.3 RDW 18.3 H Plt Count 246 Sodium 139.1 Potassium 4.0 Chloride 100 Carbon Dioxide 33 H Anion Gap 6 BUN 11 Creatinine 1.07 Est GFR ( Amer) > 60 Glucose 88 Calcium 8.7 05/21/19 03:10 Troponin I 0.055 NT-Pro-B Natriuret Pep 10086 H Impressions: Chest X-Ray 05/23/19 00:00 IMPRESSION: Pneumonia or asymmetric edema. No significant change. Assessment and Plan - Plan Summary Summary: (1) Pneumonia Qualifiers: Pneumonia type: due to unspecified organism Laterality: bilateral Lung location: unspecified part of lung Qualified Code(s): J18.9 - Pneumonia, unspecified organism Is this a current diagnosis for this admission?: Yes Plan: The patient has had a productive cough. Sputum has been sent. The patient has a history of MRSA pneumonia. She will be on meropenem and vancomycin. X-ray suggest bilateral pneumonia. Appears to be improving. Continue current medications. Afebrile and white count is normal. Repeat x-ray is about the same. Follow-up results CT scan of the chest. We stopped vancomycin yesterday. Continue meropenem. Monitor clinically. (2) Acute on chronic systolic congestive heart failure, NYHA class 3 Is this a current diagnosis for this admission?: Yes Plan: The pneumonia has likely precipitated an exacerbation of her chronic severe ada estive heart failure. Continue current diuretics. Continue beta-rip therapy. Appreciate Dr. Melyssa kan. (3) CKD (chronic kidney disease) Qualifiers: Chronic kidney disease stage: stage 3 (moderate) Qualified Code(s): N18.3 - Chronic kidney disease, stage 3 (moderate) Is this a current diagnosis for this admission?: Yes Plan: Her serum creatinine is at her baseline. Monitor renal function. (4) COPD (chronic obstructive pulmonary disease) Qualifiers: COPD type: unspecified COPD Qualified Code(s): J44.9 - Chronic obstructive pulmonary disease, unspecified Is this a current diagnosis for this admission?: Yes Plan: The patient is currently on BiPAP. BiPAP and inhaler therapy with oxygen supplementation as required. Because of her history and clinical presentation she is not suspected of Covid-19 coronavirus (5) Coronary artery disease Qualifiers: Coronary Disease-Associated Artery/Lesion type: [place] artery [place] vs. transplanted heart: [place] heart Associated angina: without angina Qualified Code(s): I25.10 - Atherosclerotic heart disease of [place] coronary artery without angina pectoris Is this a current diagnosis for this admission?: Yes Plan: Currently no evidence of acute coronary syndrome. We will continue current management. Continue telemetry monitoring as well. (6) Depression Qualifiers: Depression Type: major depressive disorder Major depression recurrence: recurrent Active/Remission status: currently active Major depression episode severity: moderate Qualified Code(s): F33.1 - Major depressive disorder, recurrent, moderate Is this a current diagnosis for this admission?: Yes Plan: We will continue antidepressant and antianxiety medications. (7) HTN (hypertension) Qualifiers: Hypertension type: essential hypertension Qualified Code(s): I10 - Essential (primary) hypertension Is this a current diagnosis for this admission?: Yes Plan: Continue current regimen. Adjust as needed. She is on multiple medications at this time. (8) Urinary tract infection Qualifiers: Urinary tract infection type: acute cystitis Hematuria presence: without hematuria Qualified Code(s): N30.00 - Acute cystitis without hematuria Is this a current diagnosis for this admission?: Yes Plan: The patient's urinalysis suggests infection. Urine culture is negative up-to-date.
[2019-05-26] MEDS: MIDODRINE HCL 5 MG TABLET PO SCH ×3 (13:00→18:21)
[2019-05-26] MEDS: ALPRAZOLAM 0.5 MG TABLET PO PRN ×2 (13:00→22:02)
[2019-05-26] MEDS: FUROSEMIDE 40 MG TABLET PO SCH (13:00)
[2019-05-26] MEDS: METOPROLOL SUCCINATE 25 MG TAB.SR.24H PO SCH ×2 (13:00→22:02)
[2019-05-26] MEDS: ISOSORBIDE MONONITRATE 30 MG TAB.ER.24H PO SCH (13:00)
[2019-05-26] MEDS: ASPIRIN 81 MG TABLET, ENT COATED PO SCH (13:01)
[2019-05-26] MEDS: OXYCODONE-ACETAMINOPHEN 5-325 MG TABLET PO PRN ×2 (13:01→18:21)
[2019-05-26] MEDS: BUSPIRONE HCL 10 MG TABLET PO SCH ×2 (13:01→18:22)
[2019-05-26] MEDS: SACUBITRIL/VALSARTAN 49 MG/51 MG TABLET PO SCH ×2 (13:01→18:21)
[2019-05-26] MEDS: APIXABAN 2.5 MG TABLET PO SCH ×2 (13:01→18:21)
[2019-05-26] MEDS: PAROXETINE HCL 20 MG TABLET PO SCH (13:02)
[2019-05-26] MEDS: FAMOTIDINE 20 MG TABLET PO SCH ×2 (13:02→22:02)
[2019-05-26] MEDS: DOCUSATE SODIUM 100 MG CAPSULE PO SCH ×2 (13:02→18:00)
[2019-05-26 15:45] LABS: BLOOD UREA NITROGEN 11 mg/dL (7-20); CALCIUM 8.9 mg/dL (8.4-10.2); CARBON DIOXIDE 37 mmol/L (22-30); CHLORIDE 101 mmol/L (98-107); GLUCOSE 113 mg/dL (75-110); POTASSIUM 4.1 mmol/L (3.6-5.0)
[2019-05-26 15:50] LABS: ANION GAP 3 (5-19)
--- NOTE | 2019-05-26 22:00 | Progress Note ---
Provider Note Provider Note: CARDIOLOGY PROGRESS NOTE by Dr. Griselda Cruz on 05/26/2019. SUBJECTIVE: The patient states she is marginally better and less short of breath, but still requiring BiPAP. She still has orthopnea. She is having cough but with this is much less. She still producing small quantity of expectoration with each cough which is greenish in color. There is no fever. There is no chest pain or discomfort. There is no recurrence of atrial fibrillation. There is no TIA or CVA symptoms. There is no ventricle arrhythmi a seen on monitor. There is no firing of the AICD. There is no bleeding on Eliquis. PHYSICAL EXAMINATION: The patient is morbidly obese. In no acute distress Selected Entries 05/26/19 05/26/19 10:00 11:34 Temperature 97.5 F Temperature Axillary Source Pulse Rate 61 Respiratory 16 Rate Blood Pressure 128/79 H Blood Pressure 95 Mean BP Location Left Arm BP Position Supine O2 Sat by Pulse 100 Oximetry Oxygen Delivery Bipap Method Percent of 35 Oxygen HEAD: Is atraumatic normocephalic. EYES: Pupils are equal round regular reactive to light. HEENT is negative. SKIN: There is no skin rashes or skin lesions. There is no particular ecchymosis. NECK: Is supple. There is mild JVD present. Carotids are equal there is no bruits. There is no lymphadenopathy. There is no goiter. There is no accessory muscle respiration use. Trachea central. LUNGS: . There is diminished air entry. On percussion there is hyperresonance. On palpation there is no chest wall tenderness. HEART: S1-S2 is heard. There is no S3 gallop. There is no S4 gallop. There is systolic murmur mitral regurgitation tricuspid regurgitation present. There is no aortic stenosis murmur. There is no aortic insufficiency murmur. There is no rub. ABDOMEN: Is obese. Nontender. There is no hepatosplenomegaly. Bowel sounds are well heard. There is no rebound guarding or rigidity. EXTREMITIES: Femorals are deep. Femorals are diminished. There is no femoral bruits. There is decreased leg pulses. There is mild pedal edema. ORCHARD SPRAYER: the patient is conscious awake alert oriented x3 with no focal deficits. PSYCHIATRIC: The patient judgment insight are intact. She does not appear to be agitated or anxious. Labs- All tests 24 hr 05/26/19 05/26/19 04:56 14:45 WBC 3.2 L RBC 3.09 L Hgb 9.6 L Hct 28.7 L MCV 93 MCH 30.9 MCHC 33.3 RDW 18.3 H Plt Count 246 Sodium 140.7 Potassium 4.1 Chloride 101 Carbon Dioxide 37 H Anion Gap 3 L BUN 11 Creatinine 0.99 Est GFR ( Amer) > 60 Est GFR (MDRD) Non-Af > 60 Glucose 113 H Calcium 8.9 Chest X-Ray 05/21/19 03:19 IMPRESSION: Right upper lobe and right lower lobe pneumonia versus residual interstitial edema from prior CHF. Moderate to marked enlargement of the cardiac silhouette. A 3-lead left pacer defibrillator remains in place. Sternotomy wires. copyright 2010 [employer]- All Rights Reserved Chest X-Ray 05/23/19 00:00 IMPRESSION: Pneumonia or asymmetric edema. No significant change. IMPRESSION/RECOMMENDATION: 1. Acute on chronic respiratory failure. This is secondary to pneumonia, obstructive sleep apnea, and acute on chronic systolic heart failure 2. Recurrent right lower lobe pneumonia: Continue antibiotics and BiPAP. 3. Acute on chronic systolic heart failure. Patient with LV ejection fraction of 25%. Continue beta-blockers and Entresto. Continue diuretics. Continue Entresto 4. Acute exacerbation COPD: Continue bronchodilators 5. History of MRSA pneumonia: The patient had a 6-week course of antibiotics and her last blood culture was negative. We will see if the repeat blood cultures come back negative or positive. 6. History of amiodarone toxicity. Would recommend avoiding amiodarone 7. Acute on chronic kidney disease: Watch renal function as we implement aggressive diuresis. 8. Cardiomyopathy with severely reduced LV ejection fraction. Continue beta- rip and Entresto and Lasix. 9. Paroxysmal atrial fibrillation: Continue beta-rip. The patient Eliquis had to be stopped due to patient's anemia and also prior occult positive bloo blood in the stools. The patient later will be restarted on Eliquis. 10. History of ventricular tachycardia, The patient has an AICD placed. If there is recurrence of ventricular tachycardia or major ventricular ectopic activity then would start the patient on small dose of sotalol. Would avoid amiodarone. 11. Hypertension: Blood pressure well controlled, on current medications. 12. Coronary artery disease: History of CO and history of coronary bypass graft surgery. No evidence of acute coronary syndrome/non-ST ST elevation CO this admission. 13. Obstructive sleep apnea. Note patient has been noncompliant with CPAP. 14. AICD placement: Note the patient's basal rate is around 60 bpm. If the patient's heart failure continues then would recommend increasing the basal heart rate to 80 bpm to help combat the heart failure along with diuretics. Medications reviewed. Medical management and medication regimen have been discussed with attending physician in detail. Medical decision making is of moderate complexity. 40 minutes spent as patient more than 50% time spent in direct patient care. Will follow.
[2019-05-26] MEDS: ATORVASTATIN CALCIUM 80 MG TABLET PO SCH (22:02)
[2019-05-26] MEDS: MELATONIN 5 MG TABLET PO SCH (22:02)
[2019-05-26] MEDS: SENNOSIDES/DOCUSATE 8.6-50 MG 1 EACH TABLET PO SCH (22:03)
[2019-05-27] MEDS: IPRATROPIUM/ALBUTEROL 0.5-2.5 MG/3 ML AMPUL NEB SCH ×3 (00:35→15:50)
[2019-05-27] MEDS: MEROPENEM 1 GM in NORMAL SALINE 50 ML IV SCH ×3 (06:15→20:59)
[2019-05-27 06:38] LABS: HEMATOCRIT 28.1 % (36.0-47.0); HEMOGLOBIN 9.4 g/dL (12.0-15.5); MEAN CORPUSCULAR HEMOGLOBIN 31.2 pg (27.0-33.4); MEAN CORPUSCULAR HGB CONC 33.6 g/dL (32.0-36.0); MEAN CORPUSCULAR VOLUME 93 fl (80-97); PLATELET COUNT 234 10^3/uL (150-450); RED BLOOD COUNT 3.02 10^6/uL (3.72-5.28); RED CELL DISTRIBUTION WIDTH 18.2 % (11.5-14.0); WHITE BLOOD COUNT 3.3 10^3/uL (4.0-10.5)
[2019-05-27] MEDS: FAMOTIDINE 20 MG TABLET PO SCH ×2 (10:20→21:00)
[2019-05-27] MEDS: DOCUSATE SODIUM 100 MG CAPSULE PO SCH ×2 (10:20→17:40)
--- NOTE | 2019-05-27 10:20 | PDOC PROGRESS REPORT ---
Subjective Progress Note for:: 05/27/19 Subjective:: 05/22/2019: Patient was seen and examined. She is on BiPAP. She says her symptoms is improving with treatment. 05/23/2019: Patient was seen and examined. Patient still on BiPAP. But overall she is feeling better. 05/24/2019: Patient was seen and examined. She uses BiPAP at night. She also uses BiPAP sporadically during the day. She is still feeling short of breath but in general slightly better. Is afebrile and her white count is normal. Coughing has improved. 05/25/2019: Patient seen and examined. She was on nasal cannula oxygen. She slightly feels better. White count is normal. Afebrile. She still on IV antibiotics. CT scan of the chest ordered today and pending. 05/26/2019: Patient was seen and examined. She alternates between nasal cannula oxygen and BiPAP. She continues to feel better. We will stop vancomycin and continued meropenem yesterday. CT scan of the chest is still pending. 05/27/2019: Patient was seen and examined. She states she is improving. She still has Jones catheter. She uses BiPAP a lot. This prevented her from having CT scan of the chest done now. Discussed with her RN and will remove Jones catheter today and try to get CT scan done today. Physical examination: Patient is mild respiratory distress on BiPAP. Alert oriented to time place person No anxiety or depression Head: atraumatic normocephalic Pupils: are equal reactive Neck: is supple and trachea is central no lymphadenopathy No pharyngeal erythema or exudates Heart: Regular rate and rhythm, positive peripheral edema Lungs: Mild respiratory distress, coarse breathing sounds bilaterally Abdomen: nontender nondistended Neurological exam: unremarkable Musculoskeletal: No joint swelling or effusion chronic lower back pain and tenderness No suicidal or homicidal ideation Reason For Visit: COMMUNITY ACQUIRED PNEUMONIA,HEART FAILURE Physical Exam Vital Signs: Temp Pulse Resp BP Pulse Ox 98.3 F 110 H 19 113/66 95 05/27/19 07:44 05/27/19 08:09 05/27/19 08:09 05/27/19 07:44 05/27/19 08:09 Intake & Output 05/26/19 05/27/19 05/28/19 06:59 06:59 06:59 Intake Total 2064 680 50 Output Total 2775 1800 Balance -711 -1120 50 Weight 238 lb 5.115 oz 235 lb 7.259 oz Results Laboratory Results: 05/27/19 06:11 05/26/19 14:45 05/26/19 05/27/19 14:45 06:11 WBC 3.3 L RBC 3.02 L Hgb 9.4 L Hct 28.1 L MCV 93 MCH 31.2 MCHC 33.6 RDW 18.2 H Plt Count 234 Sodium 140.7 Potassium 4.1 Chloride 101 Carbon Dioxide 37 H Anion Gap 3 L BUN 11 Creatinine 0.99 Est GFR ( Amer) > 60 Glucose 113 H Calcium 8.9 05/21/19 03:10 Troponin I 0.055 NT-Pro-B Natriuret Pep 60347 H Impressions: Chest X-Ray 05/23/19 00:00 IMPRESSION: Pneumonia or asymmetric edema. No significant change. Assessment and Plan - Plan Summary Summary: (1) Pneumonia Qualifiers: Pneumonia type: due to unspecified organism Laterality: bilateral Lung location: unspecified part of lung Qualified Code(s): J18.9 - Pneumonia, unspecified organism Is this a current diagnosis for this admission?: Yes Plan: The patient has had a productive cough. Sputum has been sent. The patient has a history of MRSA pneumonia. She will be on meropenem and vancomycin. X-ray suggest bilateral pneumonia. Appears to be improving. Continue current medications. Afebrile and white count is normal. Repeat x-ray is about the same. Follow-up results CT scan of the chest. We stopped vancomycin 05/18/2019. Continue meropenem. Possible switch to oral antibiotics tomorrow. Monitor clinically. (2) Acute on chronic systolic congestive heart failure, NYHA class 3 Is this a current diagnosis for this admission?: Yes Plan: The pneumonia has likely precipitated an exacerbation of her chronic severe congestive heart failure. Continue current diuretics. Continue beta-rip therapy. Appreciate Dr. Melyssa kan. (3) CKD (chronic kidney disease) Qualifiers: Chronic kidney disease stage: stage 3 (moderate) Qualified Code(s): N18.3 - Chronic kidney disease, stage 3 (moderate) Is this a current diagnosis for this admission?: Yes Plan: Her serum creatinine is at her baseline. Monitor renal function. (4) COPD (chronic obstructive pulmonary disease) Qualifiers: COPD type: unspecified COPD Qualified Code(s): J44.9 - Chronic obstructive pulmonary disease, unspecified Is this a current diagnosis for this admission?: Yes Plan: The patient is currently on BiPAP. BiPAP and inhaler therapy with oxygen supplementation as required. Because of her history and clinical presentation she is not suspected of Covid-19 coronavirus (5) Coronary artery disease Qualifiers: Coronary Disease-Associated Artery/Lesion type: [place] artery [place] vs. transplanted heart: [place] heart Associated angina: without angina Qualified Code(s): I25.10 - Atherosclerotic heart disease of [place] coronary artery without angina pectoris Is this a current diagnosis for this admission?: Yes Plan: Currently no evidence of acute coronary syndrome. We will continue current management. Continue telemetry monitoring as well. (6) Depression Qualifiers: Depression Type: major depressive disorder Major depression recurrence: recurrent Active/Remission status: currently active Major depression episode severity: moderate Qualified Code(s): F33.1 - Major depressive disorder, recurrent, moderate Is this a current diagnosis for this admission?: Yes Plan: We will continue antidepressant and antianxiety medications. (7) HTN (hypertension) Qualifiers: Hypertension type: essential hypertension Qualified Code(s): I10 - Essential (primary) hypertension Is this a current diagnosis for this admission?: Yes Plan: Continue current regimen. Adjust as needed. She is on multiple medications at this time. (8) Urinary tract infection Qualifiers: Urinary tract infection type: acute cystitis Hematuria presence: without hematuria Qualified Code(s): N30.00 - Acute cystitis without hematuria Is this a current diagnosis for this admission?: Yes Plan: The patient's urinalysis suggests infection. Urine culture is negative up-to-date.
[2019-05-27] MEDS: SACUBITRIL/VALSARTAN 49 MG/51 MG TABLET PO SCH ×2 (10:29→17:46)
[2019-05-27] MEDS: PAROXETINE HCL 20 MG TABLET PO SCH (10:29)
[2019-05-27] MEDS: APIXABAN 2.5 MG TABLET PO SCH ×2 (10:29→17:46)
[2019-05-27] MEDS: BUSPIRONE HCL 10 MG TABLET PO SCH ×2 (10:29→17:46)
[2019-05-27] MEDS: ISOSORBIDE MONONITRATE 30 MG TAB.ER.24H PO SCH (10:30)
[2019-05-27] MEDS: FUROSEMIDE 40 MG TABLET PO SCH (10:30)
[2019-05-27] MEDS: ASPIRIN 81 MG TABLET, ENT COATED PO SCH (10:30)
[2019-05-27] MEDS: METOPROLOL SUCCINATE 25 MG TAB.SR.24H PO SCH ×2 (10:30→21:00)
[2019-05-27] MEDS: ALPRAZOLAM 0.5 MG TABLET PO PRN ×2 (10:33→20:59)
[2019-05-27] MEDS: MIDODRINE HCL 5 MG TABLET PO SCH ×3 (10:33→17:46)
[2019-05-27 10:49] LABS: BLOOD UREA NITROGEN 12 mg/dL (7-20); CALCIUM 9.2 mg/dL (8.4-10.2); CHLORIDE 100 mmol/L (98-107); GLUCOSE 84 mg/dL (75-110); POTASSIUM 4.3 mmol/L (3.6-5.0)
[2019-05-27 10:55] LABS: CARBON DIOXIDE 37 mmol/L (22-30)
[2019-05-27 11:01] LABS: ANION GAP 4 (5-19)
--- NOTE | 2019-05-27 15:25 | RADIOLOGY REPORT (SQ) ---
EXAM DESCRIPTION: CT CHEST WITHOUT IMAGES COMPLETED DATE/TIME: 05/27/2019 3:07 pm REASON FOR STUDY: pneumonia COMPARISON: 04/23/2019. 02/10/2019. TECHNIQUE: CT scan performed of the chest without intravenous contrast. Images reviewed with lung, soft tissue and bone windows. Reconstructed coronal and sagittal MPR images reviewed. All images st ored on PACS. All CT scanners at this facility use dose modulation, iterative reconstruction, and/or weight based d osing when appropriate to reduce radiation dose to as low as reasonably achievable (ALARA). [facility]: Dose Right [facility]: CareDose [facility]: Dose Right [facility]: Teradose 4D [facility]: [employer] RADIATION DOSE: CT Rad equipment meets quality standard of care and radiation dose reduction techniq ues were employed. CTDIvol: 18.3 mGy. DLP: 731 mGy-cm. mGy. LIMITATIONS: No technical limitations. FINDINGS: LUNGS AND PLEURA: Motion artifact. Geographic ground-glass areas of density in the lungs, relatively chronic and unchanged compared to study from 1 month ago. Patchy areas of nodular airspa ce disease also suggested in the right middle lobe and particularly in the right lower lobe with mild bronchial wall thickening, slight bronchiectasis and mucous plugging suggested. Overall, chronic ch anges but improved aeration. Mild bandlike volume loss in the left lower lobe. No significant pleur al fluid. No pneumothorax. HILAR AND MEDIASTINAL STRUCTURES: Relatively shotty nodes, stable. HEART AND VASCULAR STRUCTURES: Cardiomegaly with previous CABG changes. No pericardial effusion. Pa cer artifact. No aortic aneurysm. UPPER ABDOMEN: Roughly 1 cm low density focus in the liver dome, unchanged. THYROID AND OTHER SOFT TISSUES: No masses. No adenopathy. BONES: No significant finding. HARDWARE: Pacer. OTHER: No other significant findings. IMPRESSION: 1. Relatively chronic but improved interstitial lung changes as above. TECHNICAL DOCUMENTATION: JOB ID: [id number] Quality ID # [id number]: Final reports with documentation of one or more dose reduction techniques (e.g., Au tomated exposure control, adjustment of the mA and/or kV according to patient size, use of iterative reconstruction technique) 2010 [employer]- All Rights Reserved Reading location - IP/workstation name: [email or web address]
[2019-05-27] MEDS: OXYCODONE-ACETAMINOPHEN 5-325 MG TABLET PO PRN ×2 (17:45→21:50)
[2019-05-27] MEDS: ATORVASTATIN CALCIUM 80 MG TABLET PO SCH (20:59)
[2019-05-27] MEDS: MELATONIN 5 MG TABLET PO SCH (21:00)
[2019-05-27] MEDS: SENNOSIDES/DOCUSATE 8.6-50 MG 1 EACH TABLET PO SCH (21:00)
[2019-05-28] MEDS: IPRATROPIUM/ALBUTEROL 0.5-2.5 MG/3 ML AMPUL NEB SCH ×3 (00:28→16:04)
[2019-05-28 06:01] LABS: HEMATOCRIT 28.8 % (36.0-47.0); HEMOGLOBIN 9.5 g/dL (12.0-15.5); MEAN CORPUSCULAR HEMOGLOBIN 30.6 pg (27.0-33.4); MEAN CORPUSCULAR VOLUME 93 fl (80-97); PLATELET COUNT 254 10^3/uL (150-450); RED BLOOD COUNT 3.11 10^6/uL (3.72-5.28); RED CELL DISTRIBUTION WIDTH 18.4 % (11.5-14.0); WHITE BLOOD COUNT 4.1 10^3/uL (4.0-10.5)
[2019-05-28] MEDS: OXYCODONE-ACETAMINOPHEN 5-325 MG TABLET PO PRN ×4 (06:14→17:24)
[2019-05-28] MEDS: MEROPENEM 1 GM in NORMAL SALINE 50 ML IV SCH (06:14)
[2019-05-28] MEDS: MIDODRINE HCL 5 MG TABLET PO SCH ×3 (09:11→17:24)
[2019-05-28] MEDS: ASPIRIN 81 MG TABLET, ENT COATED PO SCH (09:15)
[2019-05-28] MEDS: PAROXETINE HCL 20 MG TABLET PO SCH (09:15)
[2019-05-28] MEDS: SACUBITRIL/VALSARTAN 49 MG/51 MG TABLET PO SCH ×2 (09:15→17:24)
[2019-05-28] MEDS: ISOSORBIDE MONONITRATE 30 MG TAB.ER.24H PO SCH (09:16)
[2019-05-28] MEDS: BUSPIRONE HCL 10 MG TABLET PO SCH ×2 (09:16→17:24)
[2019-05-28] MEDS: FUROSEMIDE 40 MG TABLET PO SCH (09:16)
[2019-05-28] MEDS: APIXABAN 2.5 MG TABLET PO SCH ×2 (09:16→17:24)
[2019-05-28] MEDS: ALPRAZOLAM 0.5 MG TABLET PO PRN (09:18)
[2019-05-28] MEDS: METOPROLOL SUCCINATE 25 MG TAB.SR.24H PO SCH ×2 (09:19→21:06)
[2019-05-28] MEDS: FAMOTIDINE 20 MG TABLET PO SCH ×2 (09:22→21:18)
[2019-05-28] MEDS: DOCUSATE SODIUM 100 MG CAPSULE PO SCH ×2 (09:23→17:24)
--- NOTE | 2019-05-28 14:45 | PDOC PROGRESS REPORT ---
Subjective Progress Note for:: 05/28/19 Subjective:: Patient states that her breathing is at baseline today. Patient denies any chest pain, fever or chills. Patient states that she is able to stay off the BiPAP without much difficulty. Reason For Visit: COMMUNITY ACQUIRED PNEUMONIA,HEART FAILURE Physical Exam Vital Signs: Temp Pulse Resp BP Pulse Ox 97.6 F 60 19 133/78 H 100 05/28/19 12:35 05/28/19 14:00 05/28/19 12:35 05/28/19 12:35 05/28/19 12:35 Intake & Output 05/27/19 05/28/19 05/29/19 06:59 06:59 06:59 Intake Total 680 1563 970 Output Total 1800 2175 250 Balance -1120 -612 720 Weight 106.8 kg 106.2 kg General appearance: PRESENT: no acute distress, cooperative Neck exam: ABSENT: JVD Respiratory exam: PRESENT: clear to auscultation renu, unlabored. ABSENT: tachypnea, wheezes Cardiovascular exam: PRESENT: RRR, +S1, +S2. ABSENT: tachycardia GI/Abdominal exam: PRESENT: soft. ABSENT: rebound, rigid, tenderness Extremities exam: ABSENT: pedal edema Neurological exam: PRESENT: alert, awake, oriented to person, oriented to place, oriented to time Results Laboratory Results: 05/28/19 05:48 05/27/19 06:11 05/28/19 05:48 WBC 4.1 RBC 3.11 L Hgb 9.5 L Hct 28.8 L MCV 93 MCH 30.6 MCHC 33.0 RDW 18.4 H Plt Count 254 05/22/19 10:44 Blood Blood Culture - Final NO GROWTH IN 5 DAYS 05/22/19 10:51 Blood Blood Culture - Final NO GROWTH IN 5 DAYS 05/21/19 03:10 Troponin I 0.055 NT-Pro-B Natriuret Pep 83161 H Impressions: Chest X-Ray 05/23/19 00:00 IMPRESSION: Pneumonia or asymmetric edema. No significant change. Chest CT 05/25/19 00:00 IMPRESSION: 1. Relatively chronic but improved interstitial lung changes as above. Assessment and Plan - Plan Summary Summary: (1) Pneumonia Qualifiers: Pneumonia type: due to unspecified organism Laterality: bilateral Lung location: unspecified part of lung Qualified Code(s): J18.9 - Pneumonia, unspecified organism Is this a current diagnosis for this admission?: Yes Plan: The patient has had a productive cough. Sputum and blood cultures were negative. The patient has a history of MRSA pneumonia. Appears to have improved. Patient has completed treatment for pneumonia with 5 days of vancomycin and 7 days of meropenem. (2) Acute on chronic systolic congestive heart failure, NYHA class 3 Is this a current diagnosis for this admission?: Yes Plan: The pneumonia has likely precipitated an exacerbation of her chronic severe congestive heart failure. Continue current diuretics. Continue beta-rip therapy and Entresto. Appreciate Dr. Melyssa kan. (3) CKD (chronic kidney disease) Qualifiers: Chronic kidney disease stage: stage 3 (moderate) Qualified Code(s): N18.3 - Chronic kidney disease, stage 3 (moderate) Is this a current diagnosis for this admission?: Yes Plan: Her serum creatinine is at her baseline. Monitor renal function. (4) COPD (chronic obstructive pulmonary disease) Qualifiers: COPD type: unspecified COPD Qualified Code(s): J44.9 - Chronic obstructive pulmonary disease, unspecified Is this a current diagnosis for this admission?: Yes Plan: Continue nasal cannula during the daytime and BiPAP at nighttime or when sleeping. Patient has home oxygen and uses nocturnal BiPAP at home. Patient ambulated on 3 L nasal cannula with SPO2 not going below 94%. Uses 3 to 4 L nasal cannula at home. (5) Coronary artery disease Qualifiers: Coronary Disease-Associated Artery/Lesion type: [place] artery [place] vs. transplanted heart: [place] heart Associated angina: without angina Qualified Code(s): I25.10 - Atherosclerotic heart disease of [place] coronary artery without angina pectoris Is this a current diagnosis for this admission?: Yes Plan: Currently no evidence of acute coronary syndrome. We will continue current management. Continue telemetry monitoring as well. (6) Depression Qualifiers: Depression Type: major depressive disorder Major depression recurrence: recurrent Active/Remission status: currently active Major depression episode severity: moderate Qualified Code(s): F33.1 - Major depressive disorder, recurrent, moderate Is this a current diagnosis for this admission?: Yes Plan: We will continue antidepressant and antianxiety medications. (7) HTN (hypertension) Qualifiers: Hypertension type: essential hypertension Qualified Code(s): I10 - Essential (primary) hypertension Is this a current diagnosis for this admission?: Yes Plan: Continue current regimen. Adjust as needed. She is on multiple medications at this time. (8) Urinary tract infection Qualifiers: Urinary tract infection type: acute cystitis Hematuria presence: without hematuria Qualified Code(s): N30.00 - Acute cystitis without hematuria Is this a current diagnosis for this admission?: Yes Plan: The patient's urinalysis suggests infection. Urine culture is negative up-to-date. UTI unlikely. - Time Time Spent with patient: 15-24 minutes
[2019-05-28] MEDS ORDERED: ALPRAZOLAM 0.5 MG TABLET PO PRN (18:10)
[2019-05-28] MEDS: MELATONIN 5 MG TABLET PO SCH (21:06)
[2019-05-28] MEDS: ATORVASTATIN CALCIUM 80 MG TABLET PO SCH (21:06)
[2019-05-28] MEDS: SENNOSIDES/DOCUSATE 8.6-50 MG 1 EACH TABLET PO SCH (21:07)
--- NOTE | 2019-05-28 22:08 | Progress Note ---
Provider Note Provider Note: CARDIOLOGY PROGRESS NOTE by Dr. Griselda Martin on 05/28/2019. OBJECTIVE: The patient denies any chest pain or discomfort. There is no shortness of breath. There is no PND orthopnea. There is no recurrence of atrial fibrillation. There is no ventricular arrhythmias. There is no firing of AICD. She has no further leg edema this is resolved. The patient ambulated with 4 L of nasal cannula oxygen and did not drop her O2/saturation maintaining O2 saturation of 94%. She is off the BiPAP. She is anxious to go home. PHYSICAL EXAMINATION: The patient is morbidly obese. In no acute distress Selected Entries 05/28/19 16:29 Temperature 97.7 F Temperature Oral Source Pulse Rate 60 Respiratory 17 Rate Blood Pressure 109/69 Blood Pressure 82 Mean BP Location Left Arm BP Position Sitting O2 Sat by Pulse 96 Oximetry Oxygen Flow 4.00 Rate Oxygen Delivery Nasal Cannula Method HEAD: Is atraumatic normocephalic. EYES: Pupils are equal round regular reactive to light. HEENT is negative. SKIN: There is no skin rashes or skin lesions. There is no particular ecchymosis. NECK: Is supple. There is mild JVD present. Carotids are equal there is no bruits. There is no lymphadenopathy. There is no goiter. There is no accessory muscle respiration use. Trachea central. LUNGS: . There is diminished air entry. On percussion there is hyperresonance. Lungs are clear without any rhonchi rales or wheezing. On palpation there is no chest wall tenderness. HEART: S1-S2 is heard. There is no S3 gallop. There is no S4 gallop. There is systolic murmur mitral regurgitation tricuspid regurgitation present. There is no aortic stenosis murmur. There is no aortic insufficiency murmur. There is no rub. ABDOMEN: Is obese. Nontender. There is no hepatosplenomegaly. Bowel sounds are well heard. There is no rebound guarding or rigidity. EXTREMITIES: Femorals are deep. Femorals are diminished. There is no femoral bruits. There is decreased leg pulses. There is mild pedal edema. CIVIL CELEBRANT: the patient is conscious awake alert oriented x3 with no focal deficits. PSYCHIATRIC: The patient judgment insight are intact. She does not appear to be agitated or anxious. Labs- All tests 24 hr 05/28/19 05:48 WBC 4.1 RBC 3.11 L Hgb 9.5 L Hct 28.8 L MCV 93 MCH 30.6 MCHC 33.0 RDW 18.4 H Plt Count 254 Chest X-Ray 05/21/19 03:19 IMPRESSION: Right upper lobe and right lower lobe pneumonia versus residual interstitial edema from prior CHF. Moderate to marked enlargement of the cardiac silhouette. A 3-lead left pacer defibrillator remains in place. Sternotomy wires. copyright 2010 [employer]- All Rights Reserved Chest X-Ray 05/23/19 00:00 IMPRESSION: Pneumonia or asymmetric edema. No significant change. Chest CT 05/25/19 00:00 IMPRESSION: 1. Relatively chronic but improved interstitial lung changes as above. IMPRESSION/RECOMMENDATION: 1. Acute on chronic respiratory failure. This is secondary to pneumonia, obstructive sleep apnea, and acute on chronic systolic heart failure. This is resolved. The patient able to ambulate without any drop in her oxygen saturation. Patient anxious to be discharged home. 2. Recurrent right lower lobe pneumonia: This has clinically resolved. 3. Acute on chronic systolic heart failure. Patient with LV ejection fraction of 25%. Continue beta-blockers and Entresto. Continue diuretics. Continue Entresto 4. Acute exacerbation COPD: Continue bronchodilators 5. History of MRSA pneumonia: The patient had a 6-week course of antibiotics and her last blood culture was negative. All the patient's blood cultures this admission have been consistently negative for any growth. 6. History of amiodarone toxicity. Would recommend avoiding amiodarone 7. Acute on chronic kidney disease: The patient renal function is back to baseline. Would avoid nephrotoxic drugs. 8. Cardiomyopathy with severely reduced LV ejection fraction. Continue beta- rip and Entresto and Lasix. 9. Paroxysmal atrial fibrillation: Continue beta-rip. Continue Eliquis. 10. History of ventricular tachycardia, The patient has an AICD placed. If there is recurrence of ventricular tachycardia or major ventricular ectopic activity then would start the patient on small dose of sotalol. Would avoid amiodarone. 11. Hypertension: Blood pressure well controlled, on current medications. 12. Coronary artery disease: History of [place] and history of coronary bypass graft surgery. No evidence of acute coronary syndrome/non-ST ST elevation [place] this admission. 13. Obstructive sleep apnea. Note patient has been noncompliant with CPAP. 14. AICD placement: Note the patient's basal rate is around 60 bpm. If the patient's heart failure continues then would recommend increasing the basal heart rate to 80 bpm to help combat the heart failure along with diuretics. Medications reviewed. Medical management and medication regimen have been discussed with attending physician in detail. Medical decision making is of moderate complexity. 40 minutes spent as patient more than 50% time spent in direct patient care. Will follow
[2019-05-29] MEDS: IPRATROPIUM/ALBUTEROL 0.5-2.5 MG/3 ML AMPUL NEB SCH ×2 (00:05→07:41)
--- NOTE | 2019-05-29 10:42 | PDOC DISCHARGE SUMMARY ---
Impression - Admit/DC Date/PCP Admission Date/Primary Care Provider: 05/21/19 08:17 YI SHANNON MD Discharge Date: 05/29/19 - Assessment Summary: (1) Pneumonia Qualifiers: Pneumonia type: due to unspecified organism Laterality: bilateral Lung location: unspecified part of lung Qualified Code(s): J18.9 - Pneumonia, unspecified organism Is this a current diagnosis for this admission?: Yes Plan: The patient has had a productive cough. Sputum and blood cultures were negative. The patient has a history of MRSA pneumonia. Appears to have improved. Patient has completed treatment for pneumonia with 5 days of vancomycin and 7 days of meropenem. (2) Acute on chronic systolic congestive heart failure, NYHA class 3 Is this a current diagnosis for this admission?: Yes Plan: The pneumonia has likely precipitated an exacerbation of her chronic severe congestive heart failure. Continue current diuretics. Continue beta-rip therapy and Entresto. Appreciate Dr. Melyssa kan. (3) CKD (chronic kidney disease) Qualifiers: Chronic kidney disease stage: stage 3 (moderate) Qualified Code(s): N18.3 - Chronic kidney disease, stage 3 (moderate) Is this a current diagnosis for this admission?: Yes Plan: Her serum creatinine is at her baseline. Monitor renal function. (4) COPD (chronic obstructive pulmonary disease) Qualifiers: COPD type: unspecified COPD Qualified Code(s): J44.9 - Chronic obstructive pulmonary disease, unspecified Is this a current diagnosis for this admission?: Yes Plan: Continue nasal cannula during the daytime and BiPAP at nighttime or when sleeping. Patient has home oxygen and uses nocturnal BiPAP at home. Patient ambulated on 3 L nasal cannula with SPO2 not going below 94%. Uses 3 to 4 L nasal cannula at home. (5) Coronary artery disease Qualifiers: Coronary Disease-Associated Artery/Lesion type: [place] artery [place] vs. transplanted heart: [place] heart Associated angina: without angina Qualified Code(s): I25.10 - Atherosclerotic heart disease of [place] coronary artery without angina pectoris Is this a current diagnosis for this admission?: Yes Plan: Currently no evidence of acute coronary syndrome. We will continue current management. Continue telemetry monitoring as well. (6) Depression Qualifiers: Depression Type: major depressive disorder Major depression recurrence: recurrent Active/Remission status: currently active Major depression episode severity: moderate Qualified Code(s): F33.1 - Major depressive disorder, recurrent, moderate Is this a current diagnosis for this admission?: Yes Plan: We will continue antidepressant and antianxiety medications. (7) HTN (hypertension) Qualifiers: Hypertension type: essential hypertension Qualified Code(s): I10 - Essential (primary) hypertension Is this a current diagnosis for this admission?: Yes Plan: Continue current regimen. Adjust as needed. She is on multiple medications at this time. (8) Urinary tract infection Qualifiers: Urinary tract infection type: acute cystitis Hematuria presence: without hematuria Qualified Code(s): N30.00 - Acute cystitis without hematuria Is this a current diagnosis for this admission?: Yes Plan: The patient's urinalysis suggests infection. Urine culture is negative up-to-date. UTI unlikely. - Additional Information Resuscitation Status: Do Not Resuscitate Discharge Diet: Cardiac, Diabetic Discharge Activity: Activity As Tolerated, Balance Activity w/Rest, Weigh Daily Referrals: ANGIE CARRERO MD [ACTIVE STAFF] - YI SANCHEZ DO [NO LOCAL MD] - 06/01/19 11:00 am Prescriptions: Sacubitril/Valsartan [Entresto 49 mg/51 mg Tablet] 1 tab PO BID #30 tablet Isosorbide Mononitrate [Imdur 30 mg Tablet.er] 30 mg PO DAILY #30 tab.er.24h Metoprolol Succinate [Toprol Xl 25 mg Tab.sr] 25 mg PO Q12 #60 tab.sr.24h Home Medications: Alprazolam [Xanax 0.5 mg Tablet] 0.5 mg PO Q6HP PRN 02/08/19 Aspirin [Ecotrin 81 mg EC Tablet] 81 mg PO DAILY 02/08/19 Atorvastatin Calcium [Lipitor 80 mg Tablet] 80 mg PO QHS 02/08/19 Buspirone HCl [Buspar 10 mg Tablet] 10 mg PO BID 02/08/19 Paroxetine HCl [Paxil 20 mg Tablet] 20 mg PO DAILY 02/08/19 Famotidine [Pepcid 20 mg Tablet] 20 mg PO Q12 #60 tablet 03/23/19 Melatonin [Melatonin 5 mg Tablet] 10 mg PO QHS #30 tablet 03/23/19 Sennosides/Docusate 8.6-50 mg [Senna Plus Tablet] 1 each PO QHS #30 tablet 03/23/19 Apixaban [Eliquis 2.5 mg Tablet] 2.5 mg PO BID #60 tablet 04/16/19 Furosemide [Lasix 40 mg Tablet] 40 mg PO DAILY 15 Days #15 tablet 05/02/19 Midodrine HCl 10 mg PO TID 15 Days #45 tablet 05/02/19 Isosorbide Mononitrate [Imdur 30 mg Tablet.er] 30 mg PO DAILY #30 tab.er.24h 05/29/19 Metoprolol Succinate [Toprol Xl 25 mg Tab.sr] 25 mg PO Q12 #60 tab.sr.24h 05/29/19 Sacubitril/Valsartan [Entresto 49 mg/51 mg Tablet] 1 tab PO BID #30 tablet 05/29/19 History of Present Illiness History of Present Illness: According to H&P on admission: FRANKI DEL ROSARIO is a 48 year old female who presented with short of breath, productive cough green sputum, oxygen failure, positive chest x-ray. Hospital Course Hospital Course: Patient was admitted and treated for suspected bilateral pneumonia once again. Patient was given O2 supplementation as needed. Patient was started on broad-spectrum antibiotics with vancomycin as well as meropenem. Patient received vancomycin for about 4-5 days and received meropenem for 7 days to complete treatment of suspected pneumonia. Blood culture was negative. Sputum culture grew only normal bandar. Urine culture was also performed which was negative making a UTI unlikely. Chest CT was performed for evaluation of recurrent pneumonia which revealed chronic interstitial changes as well as patchy areas of airspace disease, slight bronchiectasis and mucous plugging. Patient also received treatment for acute on chronic systolic congestive heart failure. Patient was followed by cardiology which help guide therapy. Patient has been cleared by cardiology for discharge home heart failure perspective. Patient has completed treatment for pneumonia and ambulated adequately yesterday through the hallways on her usual 3 L nasal cannula with SPO2 not going below low 90s. At this point patient is safe and stable for discharge, states that her breathing is now back to baseline and eager to go home. Patient discharged with the appropriate follow-ups. Physical Exam Vital Signs: Temp Pulse Resp BP Pulse Ox 97.6 F 106 H 17 108/74 97 05/29/19 08:11 05/29/19 08:11 05/29/19 08:11 05/29/19 08:11 05/29/19 08:11 Intake & Output 05/28/19 05/29/19 05/30/19 06:59 06:59 06:59 Intake Total 1563 1746 Output Total 2176 650 Balance -612 1096 Weight 106.2 kg 105.3 kg General appearance: PRESENT: no acute distress, cooperative Respiratory exam: PRESENT: unlabored. ABSENT: accessory muscle use, retraction Extremities exam: ABSENT: pedal edema Musculoskeletal exam: PRESENT: ambulatory Neurological exam: PRESENT: alert, awake, oriented to person, oriented to place, oriented to time Psychiatric exam: ABSENT: agitated, anxious Results Laboratory Results: WBC 4.1 10^3/uL (4.0-10.5) 05/28/19 05:48 RBC 3.11 10^6/uL (3.72-5.28) L 05/28/19 05:48 Hgb 9.5 g/dL (12.0-15.5) L 05/28/19 05:48 Hct 28.8 % (36.0-47.0) L 05/28/19 05:48 MCV 93 fl (80-97) 05/28/19 05:48 MCH 30.6 pg (27.0-33.4) 05/28/19 05:48 MCHC 33.0 g/dL (32.0-36.0) 05/28/19 05:48 RDW 18.4 % (11.5-14.0) H 05/28/19 05:48 Plt Count 254 10^3/uL (150-450) 05/28/19 05:48 Lymph % (Auto) 13.5 % (13-45) 05/22/19 08:59 [place] % (Auto) 6.3 % (3-13) 05/22/19 08:59 Eos % (Auto) 1.4 % (0-6) 05/22/19 08:59 Baso % (Auto) 0.9 % (0-2) 05/22/19 08:59 Absolute Neuts (auto) 4.1 10^3/uL (1.7-8.2) 05/22/19 08:59 Absolute Lymphs (auto) 0.7 10^3/uL (0.5-4.7) 05/22/19 08:59 Absolute Monos (auto) 0.3 10^3/uL (0.1-1.4) 05/22/19 08:59 Absolute Eos (auto) 0.1 10^3/uL (0.0-0.6) 05/22/19 08:59 Absolute Basos (auto) 0.0 10^3/uL (0.0-0.2) 05/22/19 08:59 Seg Neutrophils % 77.9 % (42-78) 05/22/19 08:59 Platelet Estimate Cancelled 05/21/19 03:10 Carbonic Acid 1.27 mmol/L (1.05-1.35) 05/21/19 04:06 HCO3/H2CO3 Ratio 19:1 05/21/19 04:06 ABG pH 7.39 (7.35-7.45) 05/21/19 04:06 ABG pCO2 42.3 mmHg (35-45) 05/21/19 04:06 ABG pO2 68.4 mmHg (80-100) L 05/21/19 04:06 ABG HCO3 24.9 mmol/L (20-24) H 05/21/19 04:06 ABG Total CO2 26.2 mmol/L (21-25) H 05/21/19 04:06 ABG O2 Saturation 93.5 % (94-98) L 05/21/19 04:06 ABG Base Excess -0.1 mmol/L 05/21/19 04:06 FiO2 35% 05/21/19 04:06 Sodium 140.7 mmol/L (137-145) 05/27/19 06:11 Potassium 4.3 mmol/L (3.6-5.0) 05/27/19 06:11 Chloride 100 mmol/L (98-107) 05/27/19 06:11 Carbon Dioxide 37 mmol/L (22-30) H 05/27/19 06:11 Anion Gap 4 (5-19) L 05/27/19 06:11 BUN 12 mg/dL (7-20) 05/27/19 06:11 Creatinine 1.14 mg/dL (0.52-1.25) 05/27/19 06:11 Est GFR ( Amer) > 60 (>60) 05/27/19 06:11 Est GFR (Non-Af Amer) Cancelled 05/21/19 03:10 Est GFR (MDRD) Non-Af 51 (>60) L 05/27/19 06:11 Glucose 84 mg/dL (75-110) 05/27/19 06:11 Calcium 9.2 mg/dL (8.4-10.2) 05/27/19 06:11 Total Bilirubin 3.0 mg/dL (0.2-1.3) H 05/21/19 04:23 Direct Bilirubin 0.8 mg/dL (0.0-0.4) H 05/21/19 04:23 Neonat Total Bilirubin Not Reportable 05/21/19 04:23 Neonat Direct Bilirubin Not Reportable 05/21/19 04:23 Neonat Indirect Bili Not Reportable 05/21/19 04:23 AST 28 U/L (14-36) 05/21/19 04:23 ALT 13 U/L (<35) 05/21/19 04:23 Alkaline Phosphatase 95 U/L (38-126) 05/21/19 04:23 Troponin I 0.055 ng/mL 05/21/19 03:10 NT-Pro-B Natriuret Pep 63543 pg/mL (<125) H 05/21/19 03:10 Total Protein 8.0 g/dL (6.3-8.2) 05/21/19 04:23 Albumin 4.4 g/dL (3.5-5.0) 05/21/19 04:23 EGFR Cancelled 05/21/19 03:10 Urine Color YELLOW 05/21/19 11:20 Urine Appearance CLOUDY 05/21/19 11:20 Urine pH 5.0 (5.0-9.0) 05/21/19 11:20 Ur Specific [place] 1.014 05/21/19 11:20 Urine Protein 30 mg/dL (NEGATIVE) H 05/21/19 11:20 Urine Glucose (UA) NEGATIVE mg/dL (NEGATIVE) 05/21/19 11:20 Urine Ketones NEGATIVE mg/dL (NEGATIVE) 05/21/19 11:20 Urine Blood LARGE (NEGATIVE) H 05/21/19 11:20 Urine Nitrite (Reflex) NEGATIVE (NEGATIVE) 05/21/19 11:20 Urine Bilirubin NEGATIVE (NEGATIVE) 05/21/19 11:20 Urine Urobilinogen 4.0 mg/dL (<2.0) H 05/21/19 11:20 Leukocyte Esterase Rfl LARGE (NEGATIVE) H 05/21/19 11:20 Urine RBC (Auto) >182 /HPF 05/21/19 11:20 U Hyaline Cast (Auto) 72 /LPF 05/21/19 11:20 Urine Bacteria (Auto) 1+ /HPF 05/21/19 11:20 Urine WBC (Reflex) > 182 /HPF 05/21/19 11:20 Urine WBC Clumps MANY /HPF 05/21/19 11:20 Squamous Epi Cells Auto 4 /HPF 05/21/19 11:20 U Non-Squamous Epis Auto 2 /HPF 05/21/19 11:20 Urine Mucus (Auto) MANY /LPF 05/21/19 11:20 Urine Ascorbic Acid NEGATIVE (NEGATIVE) 05/21/19 11:20 Time Trough Drawn 92205/24/19 09:23 Vancomycin Trough 18.9 ug/mL (5.0-20.0) 05/24/19 09:23 Slides for Path Review Cancelled 05/21/19 03:10 05/21/19 03:10 Troponin I 0.055 NT-Pro-B Natriuret Pep [id number] H Impressions: Chest X-Ray 05/21/19 03:19 IMPRESSION: Right upper lobe and right lower lobe pneumonia versus residual interstitial edema from prior CHF. Moderate to marked enlargement of the cardiac silhouette. A 3-lead left pacer defibrillator remains in place. Sternotomy wires. copyright 2010 [employer]- All Rights Reserved Chest X-Ray 05/23/19 00:00 IMPRESSION: Pneumonia or asymmetric edema. No significant change. Chest CT 05/25/19 00:00 IMPRESSION: 1. Relatively chronic but improved interstitial lung changes as above. Plan Time Spent: Less than 30 Minutes Stroke Is this a Stroke Patient?: No Acute Heart Failure - Is this a Heart Failure Patient?: Yes Documentation of LVEF assessment?: Yes LVEF < 40%?: Yes-if yes answer questions a through e a) Discharged on ACEI?: N/A Discharged on ARNI b) Discharges on ARB?: N/A-Discharged on ARNI c) Discharged on ARNI?: Yes d) Discharged on evidence-based Beta rip(carvedilol, sustained release metoprolol succinate, or bisoprolol)?: Yes e) For LVEF <35%, discharged on Aldosterone antagonist?: Yes 3. Anticoagulant therapy for permanect/persistent/paraoxysmal Afib or Aflutter: Yes Follow-up Appointment scheduled within 7 days?: Yes
[2019-05-29] MEDS: DOCUSATE SODIUM 100 MG CAPSULE PO SCH (11:12)
[2019-05-29] MEDS: METOPROLOL SUCCINATE 25 MG TAB.SR.24H PO SCH (11:23)
[2019-05-29] MEDS: APIXABAN 2.5 MG TABLET PO SCH (11:23)
[2019-05-29] MEDS: SACUBITRIL/VALSARTAN 49 MG/51 MG TABLET PO SCH (11:23)
[2019-05-29] MEDS: ASPIRIN 81 MG TABLET, ENT COATED PO SCH (11:23)
[2019-05-29] MEDS: BUSPIRONE HCL 10 MG TABLET PO SCH (11:23)
[2019-05-29] MEDS: FUROSEMIDE 40 MG TABLET PO SCH (11:23)
[2019-05-29] MEDS: ISOSORBIDE MONONITRATE 30 MG TAB.ER.24H PO SCH (11:24)
[2019-05-29] MEDS: MIDODRINE HCL 5 MG TABLET PO SCH (11:24)
[2019-05-29] MEDS: FAMOTIDINE 20 MG TABLET PO SCH (11:24)
[2019-05-29] MEDS: PAROXETINE HCL 20 MG TABLET PO SCH (11:28)
[2019-05-29 11:35] VITALS: BP 110/73
== END 2019-05-29 12:21 | disposition home health service (06) | DRG 193 ==
LOC: ER 03:03 → EH 08:17 → 3S 09:52
PROVIDERS: ADMIT Hospitalist; ATTEND Internal Medicine
PROC: 5A09357 Assistance with Respiratory Ventilation, Less than 24 Consecutive Hours, Continuous Positive Airway Pressure (ICD-10-PCS; principal; 2019-05-21)
DX: J18.9 Pneumonia, unspecified organism (principal); I50.23 Acute on chronic systolic (congestive) heart failure; J96.20 Acute and chronic respiratory failure, unspecified whether with hypoxia or hypercapnia; N17.9 Acute kidney failure, unspecified; I13.0 Hypertensive heart and chronic kidney disease with heart failure and stage 1 through stage 4 chronic kidney disease, or unspecified chronic kidney disease; F33.1 Major depressive disorder, recurrent, moderate; N30.00 Acute cystitis without hematuria; Z87.01 Personal history of pneumonia (recurrent); J44.9 Chronic obstructive pulmonary disease, unspecified; N18.3 Chronic kidney disease, stage 3 (moderate); Z99.81 Dependence on supplemental oxygen; I25.10 Atherosclerotic heart disease of native coronary artery without angina pectoris; Z66 Do not resuscitate; I48.0 Paroxysmal atrial fibrillation; E78.5 Hyperlipidemia, unspecified; G47.30 Sleep apnea, unspecified; K21.9 Gastro-esophageal reflux disease without esophagitis; F17.290 Nicotine dependence, other tobacco product, uncomplicated; F12.90 Cannabis use, unspecified, uncomplicated; I25.5 Ischemic cardiomyopathy; M19.90 Unspecified osteoarthritis, unspecified site; E66.01 Morbid (severe) obesity due to excess calories; Z79.899 Other long term (current) drug therapy; I25.2 Old myocardial infarction; Z95.810 Presence of automatic (implantable) cardiac defibrillator; Z95.5 Presence of coronary angioplasty implant and graft; Z95.1 Presence of aortocoronary bypass graft; Z79.01 Long term (current) use of anticoagulants; Z79.82 Long term (current) use of aspirin; Z86.14 Personal history of Methicillin resistant Staphylococcus aureus infection; Z88.8 Allergy status to other drugs, medicaments and biological substances; Z88.6 Allergy status to analgesic agent; Z91.012 Allergy to eggs; Z84.1 Family history of disorders of kidney and ureter; Z82.49 Family history of ischemic heart disease and other diseases of the circulatory system; Z68.39 Body mass index [BMI] 39.0-39.9, adult
CPT/HCPCS: 36415; 71045; 71046; 71250; 80048; 80053; 80202; 81001; 82565; 82803; 83880; 84484; 85025; 85027; 87040; 87070; 87086; 87205; 93005; 93010; 94660; 96374; 96375; 99291; J1940; J2185; J2405; J3370; J3490; J7060; J7620

== ENCOUNTER 2019-06-24 02:28 | Inpatient (IN) | payer MEDICAID ==
[2019-06-24] MEDS ORDERED: SUCCINYLCHOLINE CHLORIDE INJ 200 MG/10 ML VIAL IV ONE (02:37)
[2019-06-24] MEDS ORDERED: ETOMIDATE INJ/PF 20 MG/10 ML SDV IV ONE ×2 (02:37→09:49)
[2019-06-24] MEDS ORDERED: ROCURONIUM BROMIDE INJ 50 MG/5 ML VIAL IV ONE ×2 (02:51→09:49)
[2019-06-24] MEDS ORDERED: PROPOFOL INJ 200 MG/20 ML VIAL IV ONE ×4 (02:52→03:33)
[2019-06-24] MEDS: PROPOFOL 1,000 MG/100 ML INFUS..BTL IV PRN ×5 (02:55→19:58)
[2019-06-24 04:30] LABS: ABSOLUTE LYMPHOCYTES (AUTO) 0.7 10^3/uL (0.5-4.7); ABSOLUTE MONOCYTES (AUTO) 0.2 10^3/uL (0.1-1.4); BASOPHILS % (AUTO) 0.7 % (0-2); EOSINOPHILS % (AUTO) 0.1 % (0-6); HEMATOCRIT 30.4 % (36.0-47.0); LYMPHOCYTES % (AUTO) 9.6 % (13-45); MEAN CORPUSCULAR HEMOGLOBIN 31.4 pg (27.0-33.4); MEAN CORPUSCULAR HGB CONC 32.8 g/dL (32.0-36.0); MEAN CORPUSCULAR VOLUME 96 fl (80-97); PLATELET COUNT 268 10^3/uL (150-450); RED BLOOD COUNT 3.18 10^6/uL (3.72-5.28); RED CELL DISTRIBUTION WIDTH 17.6 % (11.5-14.0); SEGMENTED NEUTROPHILS % (AUTO) 86.6 % (42-78); TOTAL CELLS COUNTED % (AUTO) 100 %; WHITE BLOOD COUNT 6.9 10^3/uL (4.0-10.5)
--- NOTE | 2019-06-24 04:34 | RADIOLOGY REPORT (SQ) ---
CHEST 1 VIEW on 06/24/2019 at 3:46 AM CLINICAL INDICATION: Intubated, respiratory distress COMPARISON: 05/23/2019 FINDINGS: ET tube tip is in the mid thoracic trachea. NG tube extends to the level of the GE junction but does not extend into the stomach with its side-port still in the esophagus. Would recommend significant advancement of the NG tube into the stomach by approximately 13 cm. Multilead left subclavian AICD device is noted in place. The patient is status post median sternotomy. Multiple wires are noted projecting over the chest. Cardiomegaly is noted. There are continued bilateral opacities consistent with edema and/or pneumonia. IMPRESSION: 1. NG tube terminates in the distal esophagus near the GE junction, recommend advancement as above. 2. New ET tube appears in good position. 3. Otherwise no significant change.
[2019-06-24 04:36] LABS: INTERNATIONAL RATION (INR) 1.51; PROTHROMBIN TIME 18.4 SEC (11.4-15.4)
[2019-06-24] MEDS ORDERED: NORMAL SALINE IV ONE (04:50)
[2019-06-24] MEDS ORDERED: PIPERACILLIN/TAZOBACTAM 4.5 GM VIAL IV ONE (04:50)
[2019-06-24 05:00] LABS: ARTERIAL BLOOD BASE EXCESS -3.6 mmol/L; ARTERIAL BLOOD H2CO3 1.63 mmol/L (1.05-1.35); ARTERIAL BLOOD HCO3 23.8 mmol/L (20-24); ARTERIAL BLOOD O2 SATURATION 95.8 % (94-98); ARTERIAL BLOOD PCO2 54.3 mmHg (35-45); ARTERIAL BLOOD PH 7.26 (7.35-7.45); ARTERIAL BLOOD PO2 91.9 mmHg (80-100); ARTERIAL BLOOD TOTAL CO2 25.4 mmol/L (21-25)
[2019-06-24 05:01] LABS: ARTERIAL BLOOD FIO2 80%
[2019-06-24 05:18] LABS: APPEARANCE,URINE CLOUDY; BILIRUBIN,URINE NEGATIVE (NEGATIVE); COLOR,URINE AMBER; GLUCOSE, URINE 50 mg/dL (NEGATIVE); KETONES,URINE NEGATIVE (NEGATIVE); PROTEIN,URINE >=500 mg/dL (NEGATIVE); URINE SPECIFIC GRAVITY 1.015
--- NOTE | 2019-06-24 05:21 | ER Document Report ---
Entered by GIO ROSSI SCRIBE 06/24/19 0337 Acting as scribe for:CHARLOTTE MUHAMMAD IV, MD ED Respiratory Problem - General Chief Complaint: Respiratory Distress Stated Complaint: RESPIRATORY DISTRESS Primary Care Provider: YI SHANNON MD [Primary Care Provider] - Follow up as needed Mode of Arrival: Medic Information source: Emergency Med Personnel Notes: This 48 year old female patient brought in by EMS presents to the ED today with complaints of respiratory distress that started just prior to arrival. EMS reports that they placed the patient on CPAP during transport. Patient had an episode of V-tach with a heart rate in the 190s en route to [facility] per EMS, so they cardioverted the patient at a rate of 50 joules and report a normal sinus rhythm following cardioversion. Patient was seen on 05/21/2019 for similar symptoms and discharged on 05/29/2019 after being treated for bilateral pneumonia and acute on chronic systolic congestive heart failure. Pertinent PMHx includes A fib, CHF, CAD, OH, HLD, HTN, CKD stage III, COPD, PNA, Respiratory failure, Int ubation. TRAVEL OUTSIDE OF THE [place] IN LAST 30 DAYS: No - Related Data Allergies/Adverse Reactions: egg [Egg] Allergy (Verified 10/04/18 00:18) hydrocodone [From Vicodin] Allergy (Verified 04/07/19 08:53) propoxyphene [From Darvocet-N] Allergy (Verified 10/04/18 00:18) amiodarone Adverse Reaction (Verified 10/04/18 00:18) Respiratory distress diphenhydramine HCl [From Benadryl] Adverse Reaction (Verified 10/04/18 00:18) chest pain, bigemeny rhythm Past Medical History - General Information source: [facility] Records - Social History Smoking Status: Never Smoker Cigarette use (# per day): No Chew tobacco use (# tins/day): No Smoking Education Provided: No Frequency of alcohol use: None Drug Abuse: None Family History: Reviewed & Not Pertinent, CAD, CVA, DM, Hypertension, Malignancy, Other - Kidney disease Patient has suicidal ideation: No Patient has homicidal ideation: No - Past Medical History Cardiac Medical History: Reports: Hx Atrial Fibrillation, Hx Congestive Heart Failure, Hx Coronary Artery Disease, Hx Heart Attack, Hx Hypercholesterolemia, Hx Hypertension Pulmonary Medical History: Reports: Hx Bronchitis, Hx COPD, Hx Pneumonia, Hx Intubation, Hx Respiratory Failure, Hx Sleep Apnea Renal/ Medical History: Reports: Hx Kidney Stones, Hx Renal Insufficiency, Other - Hx Chronic Kidney Disease, stage III GI Medical History: Reports: Hx Gastroesophageal Reflux Disease Psychiatric Medical History: Reports: Hx Anxiety, Hx Depression, Hx Schizophrenia Infectious Medical History: Reports: Hx MRSA - And sputum on last admission. Past Surgical History: Reports: Hx Cardiac Catheterization - multiple, Hx Cesa rean Section, Hx Coronary Artery Bypass Graft - 2006, Hx Coronary Stent - Multiple, Hx Hysterectomy, Hx Pacemaker - AICD, Hx Tubal Ligation - Immunizations Hx Diphtheria, Pertussis, Tetanus Vaccination: Yes Hx Pneumococcal Vaccination: 04/04/12 Review of Systems - Review of Systems -: Yes ROS unobtainable due to patient's medical condition - Intubated Physical Exam - Vital signs Vitals: Resp Pulse Ox 39 H 98 06/24/19 02:29 06/24/19 02:29 - Notes Notes: Initial physical exam was done by Clay Pitts MD. Assumed care of patient at 0330. - General General appearance: Unresponsive - Unresponsive to painful stimuli - HEENT Head: Normocephalic, Atraumatic Eyes: Normal Pupils: PERRL - Respiratory Respiratory status: Other - Intubated Chest status: Nontender Breath sounds: Normal Chest palpation: Normal - Cardiovascular Rhythm: Regular Heart sounds: Normal auscultation Murmur: No Friction rub: No Gallop: None auscultated - Abdominal Inspection: Morbidly Obese Distension: No distension Bowel sounds: Normal Tenderness: Nontender - Abdomen soft Organomegaly: No organomegaly - Back Back: Normal, Nontender - Extremities General upper extremity: Normal inspection General lower extremity: Normal inspection - Neurological Neuro grossly intact: Yes - Psychological Associated symptoms: Other - Unable to assess due to patient's medical co ndition-intubated - Skin Skin Temperature: Warm Skin Moisture: Dry Skin Color: Normal Course - Vital Signs Vital signs: Temp Pulse Resp BP Pulse Ox 98.6 F 18 106/70 98 06/24/19 02:47 06/24/19 05:36 06/24/19 05:36 06/24/19 05:36 - Laboratory Result Diagrams: 06/24/19 04:00 06/24/19 04:58 Laboratory results interpreted by me: 06/24/19 06/24/19 06/24/19 02:34 04:00 04:00 RBC Hgb Hct RDW Lymph % (Auto) Seg Neutrophils % PT 18.4 H Carbonic Acid ABG pH ABG pCO2 ABG Total CO2 Potassium Creatinine Est GFR ( Amer) Est GFR (MDRD) Non-Af Glucose POC Glucose 335 H Lactic Acid 4.7 H Total Bilirubin Urine Protein Urine Glucose (UA) Urine Blood Urine Urobilinogen 06/24/19 06/24/19 06/24/19 04:00 04:00 04:14 RBC 3.18 L Hgb 10.0 L Hct 30.4 L RDW 17.6 H Lymph % (Auto) 9.6 L Seg Neutrophils % 86.6 H PT Carbonic Acid 1.63 H ABG pH 7.26 L ABG pCO2 54.3 H ABG Total CO2 25.4 H Potassium Creatinine Est GFR ( Amer) Est GFR (MDRD) Non-Af Glucose POC Glucose Lactic Acid Total Bilirubin Urine Protein >=500 H Urine Glucose (UA) 50 H Urine Blood SMALL H Urine Urobilinogen 2.0 H 06/24/19 04:58 RBC Hgb Hct RDW Lymph % (Auto) Seg Neutrophils % PT Carbonic Acid ABG pH ABG pCO2 ABG Total CO2 Potassium 3.2 L Creatinine 1.67 H Est GFR ( Amer) 40 L Est GFR (MDRD) Non-Af 33 L Glucose 112 H POC Glucose Lactic Acid Total Bilirubin 2.1 H Urine Protein Urine Glucose (UA) Urine Blood Urine Urobilinogen - EKG Interpretation by Me Additional EKG results interpreted by me: 06/24/19 06:33 EKG obtained on 06/24/2019 at 0228 hrs. was interpreted by this MD. Findings: Paced rhythm, rate 84, nonspecific ST segments. - Consults lizzeth yee np, icu Time consulted: 06:35 - delia yee accepted pt for dr desouza Reason for consultation: 06/24/19 06:35 respiratory failure, intubated Discharge - Discharge Clinical Impression: Acute respiratory failure Qualifiers: Respiratory failure complication: unspecified whether with hypoxia or hypercapnia Qualified Code(s): J96.00 - Acute respiratory failure, unspecified whether with hypoxia or hypercapnia Condition: Critical Disposition: ADMITTED INPATIENT Admitting Provider: Gisel (Engineering Aid) Unit Admitted: ICU Referrals: YI SHANNON MD [Primary Care Provider] - Follow up as needed I personally performed the services described in the documentation, reviewed and edited the documentation which was dictated to the scribe in my presence, and it accurately records my words and actions.
[2019-06-24 05:28] LABS: ALBUMIN 3.5 g/dL (3.5-5.0); ALKALINE PHOSPHATASE 61 U/L (38-126); ANION GAP 7 (5-19); ASPARTATE AMINO TRANSFERASE 27 U/L (14-36); BILIRUBIN,DIRECT 0.4 mg/dL (0.0-0.4); BILIRUBIN,TOTAL 2.1 mg/dL (0.2-1.3); BLOOD UREA NITROGEN 11 mg/dL (7-20); CALCIUM 8.7 mg/dL (8.4-10.2); CARBON DIOXIDE 29 mmol/L (22-30); CHLORIDE 104 mmol/L (98-107); GLUCOSE 112 mg/dL (75-110); POTASSIUM 3.2 mmol/L (3.6-5.0); TOTAL PROTEIN 6.5 g/dL (6.3-8.2)
--- NOTE | 2019-06-24 08:32 | CRITICAL CARE ADMISSION REPORT ---
HPI Date:: 06/24/19 Time:: 07:55 HPI: 48 year old female with a PMH of afib, CAD, CHF, stage III kidney disease COPD, respiratory failure with multiple admissions with intubations. Presented to the ER via EMS with Respiratory distress. Enroute to the ER pt went into VT rate of 190's she was cardioverted x 1 and returned to NSR. Upon arrival to the ED she was on bipap her RR was in the 30's SPO2 was 100%. She had increased WOB and was subsequently intubated with an 8.0 ETT at 22 cm at the teeth. She is admitted to the ICU with acute on chronic respiratory failure. - Diagnosis/Plan (1) Acute respiratory failure Qualifiers: Respiratory failure complication: hypoxia Qualified Code(s): J96.01 - Acute respiratory failure with hypoxia Is this a current diagnosis for this admission?: Yes Plan: Maintain mechanical ventilation ABG at 10 am Daily CXR (2) Atrial fibrillation Qualifiers: Atrial fibrillation type: longstanding persistent Qualified Code(s): I48.11 - Longstanding persistent atrial fibrillation Is this a current diagnosis for this admission?: No Plan: Currently NSR will hold off on Toprol xl for now with borderline BP Will resume home dose eliquis (3) CAD (coronary artery disease) Qualifiers: Coronary Disease-Associated Artery/Lesion type: [place] artery [place] vs. transplanted heart: [place] heart Associated angina: with unspecified angina Qualified Code(s): I25.119 - Atherosclerotic heart disease of [place] coronary artery with unspecified angina pectoris Is this a current diagnosis for this admission?: No Plan: Continue ASA and Statin (4) Ischemic cardiomyopathy Is this a current diagnosis for this admission?: Yes Plan: Will hold off on entresto for now in the setting of BENNY Lasix 40 mg x 1 dose now s/p AICD- did not fire during VT episode will need interrogation with EP as an outpt (5) [id number] kidney injury Qualifiers: Acute renal failure type: unspecified Chronic kidney disease stage: stage 3 (moderate) Qualified Code(s): N17.9 - Acute kidney failure, unspecified; N18.3 - Chronic kidney disease, stage 3 (moderate) Is this a current diagnosis for this admission?: Yes Plan: Most likely cardiorenal will gently diurese Monitor kidney function and uop Past Medical History Cardiac Medical History: Reports: Atrial Fibrillation, Congestive Heart Failure, Coronary Artery Disease, Myocardial Infarction, Hyperlipidema, Hypertension Denies: DVT, Pulmonary Embolism Pulmonary Medical History: Reports: Bronchitis, Chronic Obstructive Pulmonary Disease (COPD), Intubation, Pneumonia, Respiratory Failure, Sleep Apnea Denies: Asthma Neurological Medical History: Denies: Seizures Endocrine Medical History: Denies: Diabetes Mellitus Type 1, Diabetes Mellitus Type 2, Hyperthyroidism, Hypothyroidism Renal/ Medical History: Reports: Other - Hx Chronic Kidney Disease, stage III GI Medical History: Reports: Gastroesophageal Reflux Disease Denies: Cirrhosis, Crohn's Disease, Hepatitis, Hiatal Hernia, Ulcerative Colitis Musculoskeltal Medical History: Denies: Arthritis, Gout Skin Medical History: Denies: Eczema, Psoriasis Psychiatric Medical History: Reports: Depression Hematology: Reports: Anemia - Chronic, Bleeding Tendencies - "On blood thinners" Infectious Medical History: Reports: Methicillin-Resistant Staph Aureus - And sputum on last admission. Past Surgical History Past Surgical History: Reports: Cardiac Catheterization - multiple, Section, Coronary Artery Bypass Graft - 2006, Coronary Stent - Multiple, Hysterectomy, Pacemaker - AICD, Tubal Ligation Denies: Mastectomy Social/Family History - Social History Smoking Status: Never Smoker Frequency of Alcohol Use: Occasional Hx Recreational Drug Use: Yes Drugs: Cocaine, Marijuana Hx Prescription Drug Abuse: No - Medication/Allergies Home Medications: Alprazolam [Xanax 0.5 mg Tablet] 0.5 mg PO Q6HP PRN 02/08/19 Aspirin [Ecotrin 81 mg EC Tablet] 81 mg PO DAILY 02/08/19 Atorvastatin Calcium [Lipitor 80 mg Tablet] 80 mg PO QHS 02/08/19 Buspirone HCl [Buspar 10 mg Tablet] 10 mg PO BID 02/08/19 Paroxetine HCl [Paxil 20 mg Tablet] 20 mg PO DAILY 02/08/19 Famotidine [Pepcid 20 mg Tablet] 20 mg PO Q12 #60 tablet 03/23/19 Melatonin [Melatonin 5 mg Tablet] 10 mg PO QHS #30 tablet 03/23/19 Sennosides/Docusate 8.6-50 mg [Senna Plus Tablet] 1 each PO QHS #30 tablet 03/23/19 Apixaban [Eliquis 2.5 mg Tablet] 2.5 mg PO BID #60 tablet 02/17/20 Furosemide [Lasix 40 mg Tablet] 40 mg PO DAILY 15 Days #15 tablet 05/02/19 Midodrine HCl 10 mg PO TID 15 Days #45 tablet 05/02/19 Isosorbide Mononitrate [Imdur 30 mg Tablet.er] 30 mg PO DAILY #30 tab.er.24h 05/29/19 Metoprolol Succinate [Toprol Xl 25 mg Tab.sr] 25 mg PO Q12 #60 tab.sr.24h 05/29/19 Sacubitril/Valsartan [Entresto 49 mg/51 mg Tablet] 1 tab PO BID #30 tablet 05/29/19 Allergies/Adverse Reactions: egg [Egg] Allergy (Verified 10/04/18 00:18) hydrocodone [From Vicodin] Allergy (Verified 04/07/19 08:53) propoxyphene [From Darvocet-N] Allergy (Verified 10/04/18 00:18) amiodarone Adverse Reaction (Verified 10/04/18 00:18) Respiratory distress diphenhydramine HCl [From Benadryl] Adverse Reaction (Verified 10/04/18 00:18) chest pain, bigemeny rhythm Physical Exam Vital Signs: Temp Pulse Resp BP Pulse Ox 98.6 F 14 112/76 100 06/24/19 02:47 06/24/19 07:06 06/24/19 07:06 06/24/19 07:06 Intake & Output 06/23/19 06/24/19 06/25/19 06:59 06:59 06:59 Intake Total 100 Balance 100 Weight 136.36 kg Weight/Height Weight 136.36 kg Laboratory/Radiographs Laboratory Results: 06/24/19 04:00 06/24/19 04:58 06/24/19 06/24/19 06/24/19 04:00 04:00 04:00 WBC 6.9 RBC 3.18 L Hgb 10.0 L Hct 30.4 L MCV 96 MCH 31.4 MCHC 32.8 RDW 17.6 H Plt Count 268 Seg Neutrophils % 86.6 H Carbonic Acid HCO3/H2CO3 Ratio ABG pH ABG pCO2 ABG pO2 ABG HCO3 ABG O2 Saturation ABG Base Excess FiO2 Sodium Cancelled Potassium Cancelled Chloride Cancelled Carbon Dioxide Cancelled Anion Gap Cancelled BUN Cancelled Creatinine Cancelled Est GFR ( Amer) Cancelled Est GFR (Non-Af Amer) Cancelled Glucose Cancelled Lactic Acid 4.7 H Calcium Cancelled Total Bilirubin Cancelled AST Cancelled Alkaline Phosphatase Cancelled Total Protein Cancelled Albumin Cancelled Urine Color Urine Appearance Urine pH Ur Specific [place] Urine Protein Urine Glucose (UA) Urine Ketones Urine Blood Urine RBC (Auto) 06/24/19 06/24/19 06/24/19 04:00 04:14 04:58 WBC RBC Hgb Hct MCV MCH MCHC RDW Plt Count Seg Neutrophils % Carbonic Acid 1.63 H HCO3/H2CO3 Ratio 14:1 ABG pH 7.26 L ABG pCO2 54.3 H ABG pO2 91.9 ABG HCO3 23.8 ABG O2 Saturation 95.8 ABG Base Excess -3.6 FiO2 80% Sodium 139.9 Potassium 3.2 L Chloride 104 Carbon Dioxide 29 Anion Gap 7 BUN 11 Creatinine 1.67 H Est GFR ( Amer) 40 L Est GFR (Non-Af Amer) Glucose 112 H Lactic Acid Calcium 8.7 Total Bilirubin 2.1 H AST 27 Alkaline Phosphatase 61 Total Protein 6.5 Albumin 3.5 Urine Color MARKO Urine Appearance CLOUDY Urine pH 6.0 Ur Specific [place] 1.015 Urine Protein >=500 H Urine Glucose (UA) 50 H Urine Ketones NEGATIVE Urine Blood SMALL H Urine RBC (Auto) 9 06/24/19 07:25 WBC RBC Hgb Hct MCV MCH MCHC RDW Plt Count Seg Neutrophils % Carbonic Acid HCO3/H2CO3 Ratio ABG pH ABG pCO2 ABG pO2 ABG HCO3 ABG O2 Saturation ABG Base Excess FiO2 Sodium Potassium Chloride Carbon Dioxide Anion Gap BUN Creatinine Est GFR ( Amer) Est GFR (Non-Af Amer) Glucose Lactic Acid 0.8 Calcium Total Bilirubin AST Alkaline Phosphatase Total Protein Albumin Urine Color Urine Appearance Urine pH Ur Specific [place] Urine Protein Urine Glucose (UA) Urine Ketones Urine Blood Urine RBC (Auto) 06/24/19 06/24/19 06/24/19 04:00 04:58 04:58 Troponin I Cancelled 0.084 NT-Pro-B Natriuret Pep 49765 H Impressions: Chest X-Ray 06/24/19 00:00 IMPRESSION: 1. NG tube terminates in the distal esophagus near the GE junction, recommend advancement as above. 2. New ET tube appears in good position. 3. Otherwise no significant change. All labs, radiographs, diagnostic studies and EKGs were personally reviewed: Yes Critical Time Critical Time (minutes): 60 -: The care of a critically ill patient is dynamic. This note represents a static moment in the admission process. Orders and treatments may be given simultaneously and urgently, and time is not industrial relations representative of the treatment process. This patient requires Critical Care secondary to life threatening organ or limb dysfunction. Without Critical Care services, the patient is at risk for increased mortality and morbidity.
[2019-06-24] MEDS ORDERED: FUROSEMIDE INJ/PF 40 MG/4 ML SDV IV ONE ×2 (08:45→13:00)
[2019-06-24] MEDS ORDERED: SUCCINYLCHOLINE CHLORIDE INJ 200 MG/10 ML VIAL ONE (09:49)
--- NOTE | 2019-06-24 10:26 | EKG REPORT ---
SEVERITY:- ABNORMAL ECG - ATRIAL-SENSED VENTRICULAR-PACED COMPLEXES : Confirmed by: Verna Frederick 24-Jun-2019 10:26:41
--- NOTE | 2019-06-24 11:41 | RADIOLOGY REPORT (SQ) ---
EXAM DESCRIPTION: CHEST SINGLE VIEW IMAGES COMPLETED DATE/TIME: 06/24/2019 11:22 am REASON FOR STUDY: OGT placement COMPARISON: Earlier same day. NUMBER OF VIEWS: One view. TECHNIQUE: Single frontal radiographic image of the chest acquired. LIMITATIONS: None. FINDINGS: LUNGS AND PLEURA: Stable appearance. MEDIASTINUM AND HEART: Stable heart size and mediastinal structures. SUPPORT DEVICES: Appropriate location without change. BONY STRUCTURES: No acute findings. HARDWARE: None. OTHER: No other significant finding. IMPRESSION: STABLE APPEARANCE OF THE CHEST. SUPPORT DEVICES UNCHANGED. Reading location - IP/workstation name: [email or web address]
[2019-06-24] MEDS ORDERED: AMPICILLIN SOD/SULBACTAM 3 GM VIAL IV SCH (12:30)
[2019-06-24] MEDS ORDERED: APIXABAN 2.5 MG TABLET PO SCH (13:00)
[2019-06-24] MEDS: POTASSI CL 20 MEQ/50 ML RIDER 20 MEQ/50 ML RTUPB IV SCH ×2 (13:01→15:34)
[2019-06-24 14:11] LABS: ARTERIAL BLOOD BASE EXCESS 0.5 mmol/L; ARTERIAL BLOOD FIO2 60%; ARTERIAL BLOOD H2CO3 1.12 mmol/L (1.05-1.35); ARTERIAL BLOOD HCO3 24.5 mmol/L (20-24); ARTERIAL BLOOD O2 SATURATION 98.1 % (94-98); ARTERIAL BLOOD PCO2 37.3 mmHg (35-45); ARTERIAL BLOOD PH 7.44 (7.35-7.45); ARTERIAL BLOOD PO2 107.6 mmHg (80-100); ARTERIAL BLOOD TOTAL CO2 25.7 mmol/L (21-25)
[2019-06-24] MEDS: AMPICILLIN SODIUM/SULBACTAM NA 3 GM in NORMAL SALINE 100 ML IV SCH ×2 (15:11→22:35)
[2019-06-24] MEDS: APIXABAN 2.5 MG TABLET NG SCH (22:47)
[2019-06-25] MEDS: PROPOFOL 1,000 MG/100 ML INFUS..BTL IV PRN ×3 (01:08→09:14)
[2019-06-25] MEDS: AMPICILLIN SODIUM/SULBACTAM NA 3 GM in NORMAL SALINE 100 ML IV SCH ×4 (02:13→22:39)
[2019-06-25 05:28] LABS: ARTERIAL BLOOD BASE EXCESS -0.7 mmol/L; ARTERIAL BLOOD H2CO3 1.02 mmol/L (1.05-1.35); ARTERIAL BLOOD HCO3 22.9 mmol/L (20-24); ARTERIAL BLOOD O2 SATURATION 91.5 % (94-98); ARTERIAL BLOOD PCO2 33.9 mmHg (35-45); ARTERIAL BLOOD PH 7.45 (7.35-7.45); ARTERIAL BLOOD PO2 57.8 mmHg (80-100)
[2019-06-25 05:34] LABS: ARTERIAL BLOOD FIO2 45%
[2019-06-25 05:35] LABS: INTERNATIONAL RATION (INR) 1.59; PROTHROMBIN TIME 19.1 SEC (11.4-15.4)
[2019-06-25 05:36] LABS: PARTIAL THROMBOPLASTIN TIME 34.8 SEC (23.5-35.8)
[2019-06-25 05:38] LABS: ABSOLUTE LYMPHOCYTES (AUTO) 0.8 10^3/uL (0.5-4.7); ABSOLUTE MONOCYTES (AUTO) 0.5 10^3/uL (0.1-1.4); ABSOLUTE NEUT (AUTO) 5.7 10^3/uL (1.7-8.2); BASOPHILS % (AUTO) 0.5 % (0-2); EOSINOPHILS % (AUTO) 0.2 % (0-6); HEMATOCRIT 28.4 % (36.0-47.0); HEMOGLOBIN 9.5 g/dL (12.0-15.5); LYMPHOCYTES % (AUTO) 11.6 % (13-45); MEAN CORPUSCULAR HEMOGLOBIN 30.7 pg (27.0-33.4); MEAN CORPUSCULAR HGB CONC 33.3 g/dL (32.0-36.0); MONOCYTES % (AUTO) 7.2 % (3-13); PLATELET COUNT 216 10^3/uL (150-450); RED BLOOD COUNT 3.09 10^6/uL (3.72-5.28); RED CELL DISTRIBUTION WIDTH 17.3 % (11.5-14.0); SEGMENTED NEUTROPHILS % (AUTO) 80.5 % (42-78); TOTAL CELLS COUNTED % (AUTO) 100 %; WHITE BLOOD COUNT 7.1 10^3/uL (4.0-10.5)
[2019-06-25 05:41] LABS: MEAN CORPUSCULAR VOLUME 92 fl (80-97)
[2019-06-25 05:55] LABS: ALBUMIN 3.5 g/dL (3.5-5.0); ALKALINE PHOSPHATASE 76 U/L (38-126); ANION GAP 8 (5-19); ASPARTATE AMINO TRANSFERASE 23 U/L (14-36); BILIRUBIN,DIRECT 0.4 mg/dL (0.0-0.4); BILIRUBIN,TOTAL 1.6 mg/dL (0.2-1.3); BLOOD UREA NITROGEN 10 mg/dL (7-20); CALCIUM 8.8 mg/dL (8.4-10.2); CARBON DIOXIDE 27 mmol/L (22-30); CHLORIDE 105 mmol/L (98-107); GLUCOSE 99 mg/dL (75-110); POTASSIUM 3.4 mmol/L (3.6-5.0); TOTAL PROTEIN 6.5 g/dL (6.3-8.2)
[2019-06-25] MEDS: APIXABAN 2.5 MG TABLET NG SCH ×2 (09:15→22:39)
[2019-06-25] MEDS: POTASSI CL 20 MEQ/50 ML RIDER 20 MEQ/50 ML RTUPB IV SCH ×2 (14:22→16:21)
--- NOTE | 2019-06-25 15:00 | PDOC CRITICAL CARE PROG REPORT ---
General Date:: 06/25/19 ICU Day:: 1 Ventilator Day:: 1 Hospital Day:: 1 Resuscitation Status: Full Code Events in the past 12 to 24 Hours:: Patient admitted to ICU for acute respiratory failure. Propofol being weaned t his morning. Hemodynamically stable. Reason for ICU Addmission:: Acute respiratory failure requiring intubation - Medications: Medications reviewed and adjusted accordingly: Yes Sedation:: Propofol is being weaned currently. Physical Exam Vital Signs: Temp Pulse Resp BP Pulse Ox 100.8 F H 79 17 155/95 H 100 06/25/19 12:00 06/25/19 09:00 06/25/19 11:57 06/25/19 11:57 06/25/19 11:57 Intake & Output 06/24/19 06/25/19 06/26/19 06:59 06:59 06:59 Intake Total 100 840 131 Output Total 4025 525 Balance 100 -0555 -394 Weight 136.36 kg 109.4 kg Weight/Height Weight 109.4 kg Height 5 ft 5 in General appearance: PRESENT: no acute distress Head exam: PRESENT: atraumatic, normocephalic Eye exam: PRESENT: EOMI, PERRLA Mouth exam: PRESENT: moist Neck exam: PRESENT: full ROM Respiratory exam: PRESENT: decreased breath sounds Cardiovascular exam: PRESENT: RRR, +S1, +S2 Pulses: PRESENT: normal radial pulses GI/Abdominal exam: PRESENT: normal bowel sounds Extremities exam: ABSENT: pedal edema Musculoskeletal exam: PRESENT: full ROM Neurological exam: PRESENT: CN II-XII grossly intact, other - Awake and alert when sedation lightened. Focused psych exam: PRESENT: other - Able to assess due to ET tube. Patient is currently calm. Skin exam: ABSENT: abrasion, rash, skin tears Tubes/Lines: PRESENT: Endotracheal Tube, Central Line Laboratory/Radiographs Laboratory Results: 06/25/19 05:00 06/25/19 05:00 06/24/19 06/25/19 06/25/19 13:56 05:00 05:00 WBC 7.1 RBC 3.09 L Hgb 9.5 L Hct 28.4 L MCV 92 D MCH 30.7 MCHC 33.3 RDW 17.3 H Plt Count 216 Seg Neutrophils % 80.5 H Carbonic Acid 1.12 HCO3/H2CO3 Ratio 21:1 ABG pH 7.44 ABG pCO2 37.3 ABG pO2 107.6 H ABG HCO3 24.5 H ABG O2 Saturation 98.1 H ABG Base Excess 0.5 FiO2 60% Sodium 139.6 Potassium 3.4 L Chloride 105 Carbon Dioxide 27 Anion Gap 8 BUN 10 Creatinine 1.43 H Est GFR ( Amer) 48 L Glucose 99 Calcium 8.8 Total Bilirubin 1.6 H AST 23 Alkaline Phosphatase 76 Total Protein 6.5 Albumin 3.5 06/25/19 05:00 WBC RBC Hgb Hct MCV MCH MCHC RDW Plt Count Seg Neutrophils % Carbonic Acid 1.02 L HCO3/H2CO3 Ratio 22:1 ABG pH 7.45 ABG pCO2 33.9 L ABG pO2 57.8 L ABG HCO3 22.9 ABG O2 Saturation 91.5 L ABG Base Excess -0.7 FiO2 45% Sodium Potassium Chloride Carbon Dioxide Anion Gap BUN Creatinine Est GFR ( Amer) Glucose Calcium Total Bilirubin AST Alkaline Phosphatase Total Protein Albumin 06/24/19 06/24/19 06/24/19 04:00 04:58 04:58 Troponin I Cancelled 0.084 NT-Pro-B Natriuret Pep 57432 H 06/24/19 13:30 Troponin I NT-Pro-B Natriuret Pep 8010 H Impressions: Chest X-Ray 06/24/19 11:18 IMPRESSION: STABLE APPEARANCE OF THE CHEST. SUPPORT DEVICES UNCHANGED. All labs, radiographs, diagnostic studies and EKGs were personally reviewed: Yes In addition, reports of radiographic and diagnostic studies were read: Yes Assessment and Plan - Diagnosis (1) [id number] kidney injury Qualifiers: Acute renal failure type: unspecified Chronic kidney disease stage: stage 3 (moderate) Qualified Code(s): N17.9 - Acute kidney failure, unspecified; N18.3 - Chronic kidney disease, stage 3 (moderate) Is this a current diagnosis for this admission?: Yes Plan: Holding IV fluids for now given her elevated proBNP. Hypokalemic this morning. Repleted with 40 mEq of KCl. (2) Acute on chronic respiratory failure Qualifiers: Respiratory failure complication: hypoxia Qualified Code(s): J96.21 - Acute and chronic respiratory failure with hypoxia Is this a current diagnosis for this admission?: Yes Plan: Possibly secondary to COVID19 infection. Most likely her respiratory failure represents an acute exacerbation of her chronic pulmonary/cardiac failure. Wean ventilator as tolerated as we lower rate of propofol. Titrate FiO2 according to monitor SPO2. Maintain SPO2 between 90-95%. Continue Unasyn for possible aspiration pneumonia. Plan Summary: ICU day: Neuro: Patient has been on a propofol drip which is currently being weaned. Was awake and alert last night during her sedation holiday. Pain management/sedation: Currently on propofol which is being weaned to facilitate extubation. No apparent deficits noted. Pulmonary: Vent settings: PRVC 500, respiratory rate 14, PEEP 5, FiO2 30%. Plan is to wean ventilation as tolerated. Wean FiO2 to maintain SPO2 90-95%. Possible aspiration pneumonia. On Unasyn. Cardiovascular: Patient has a significant cardiac history including A. fib, CHF, ischemic cardiomyopathy with AICD placement. Her proBNP was elevated to 13,600 yesterday but has since decreased to 8010. Continue to hold IV fluids for now. She was restarted on Eliquis which she takes at home as well as Entresto 49/51 twice daily. Indwelling catheters: Femoral catheter placed on 06/23 in the emergency department. If she requires venous access over the next 24 hours, we will look to change the catheter to a RIJ. Heme: H&H is stable at 9.5/28.4. DVT prophylaxis with Eliquis. Renal: IV fluids being held for CHF with a significantly elevated proBNP as above. She has a history of CKD. Current creatinine is 1.43. Monitor I's and O's closely and keep net negative over the next 24 hours. Gastrointestinal: Patient has been n.p.o. over the past [address] on LIWS. Currently not on any GI prophylaxis. GI prophylaxis with Protonix IV. Diet: Currently n.p.o. Will start tube feeds if not extubated today. : Catheter placed in ED on 06/23. Maintain Jones catheter for now for strict I's and O's. We will look to remove Jones catheter if able to extubate over the next 24 hours. ID: Possible aspiration pneumonia. Started on Unasyn 3 g IV every 6. Barriers to discharge from ICU: Patient still in respiratory failure and intubated. Possible extubation within the next 24 to 48 hours. Critical Time Critical Time (minutes): 60 Level of Care: ICU Anticipated discharge: Home with Homehealth Within: Other - time of discharge to be better determined once extubated. -: 1. The care of a critical patient is a dynamic process. This note is a franchise sales representative synopsis but static in nature. The timeframe for treatments given in order is not necessarily the actual time these treatments may have been done. 2. This patient requires critical care secondary to ongoing requirements for therapy not offered or safe outside the critical care environment. Transfer to a lower level of care will result in altered life or limb morbidity and mortality. 3. Multidisciplinary rounds completed. 4. ABCDE bundle addressed.
[2019-06-25] MEDS ORDERED: MIDAZOLAM HCL 50 MG/100 ML RTUINJ ONE (16:13)
[2019-06-25] MEDS: MIDAZOLAM HCL 50 MG/100 ML RTUINJ IV PRN (17:00)
[2019-06-25] MEDS: SACUBITRIL/VALSARTAN 49 MG/51 MG TABLET PO SCH (17:39)
[2019-06-26] MEDS: MIDAZOLAM HCL 50 MG/100 ML RTUINJ IV PRN ×3 (00:24→19:15)
[2019-06-26] MEDS: AMPICILLIN SODIUM/SULBACTAM NA 3 GM in NORMAL SALINE 100 ML IV SCH ×4 (02:44→21:46)
[2019-06-26] MEDS ORDERED: ALTEPLASE INJ 2 MG VIAL (CATH CLEARANCE) IV ONE (02:56)
[2019-06-26 03:08] LABS: ABSOLUTE LYMPHOCYTES (AUTO) 0.6 10^3/uL (0.5-4.7); ABSOLUTE MONOCYTES (AUTO) 0.5 10^3/uL (0.1-1.4); ABSOLUTE NEUT (AUTO) 5.1 10^3/uL (1.7-8.2); BASOPHILS % (AUTO) 0.5 % (0-2); EOSINOPHILS % (AUTO) 0.1 % (0-6); HEMATOCRIT 27.7 % (36.0-47.0); HEMOGLOBIN 9.3 g/dL (12.0-15.5); LYMPHOCYTES % (AUTO) 9.6 % (13-45); MEAN CORPUSCULAR HEMOGLOBIN 30.9 pg (27.0-33.4); MEAN CORPUSCULAR HGB CONC 33.7 g/dL (32.0-36.0); MEAN CORPUSCULAR VOLUME 92 fl (80-97); MONOCYTES % (AUTO) 8.5 % (3-13); PLATELET COUNT 208 10^3/uL (150-450); RED BLOOD COUNT 3.02 10^6/uL (3.72-5.28); RED CELL DISTRIBUTION WIDTH 17.1 % (11.5-14.0); SEGMENTED NEUTROPHILS % (AUTO) 81.3 % (42-78); TOTAL CELLS COUNTED % (AUTO) 100 %; WHITE BLOOD COUNT 6.3 10^3/uL (4.0-10.5)
[2019-06-26 03:14] LABS: INTERNATIONAL RATION (INR) 1.62; PROTHROMBIN TIME 19.4 SEC (11.4-15.4)
[2019-06-26 03:34] LABS: ALBUMIN 3.5 g/dL (3.5-5.0); ALKALINE PHOSPHATASE 71 U/L (38-126); ANION GAP 8 (5-19); ASPARTATE AMINO TRANSFERASE 20 U/L (14-36); BILIRUBIN,DIRECT 0.5 mg/dL (0.0-0.4); BILIRUBIN,TOTAL 2.3 mg/dL (0.2-1.3); BLOOD UREA NITROGEN 10 mg/dL (7-20); CARBON DIOXIDE 27 mmol/L (22-30); CHLORIDE 104 mmol/L (98-107); GLUCOSE 112 mg/dL (75-110); POTASSIUM 3.7 mmol/L (3.6-5.0); TOTAL PROTEIN 6.6 g/dL (6.3-8.2)
[2019-06-26] MEDS ORDERED: PANTOPRAZOLE SODIUM 40 MG VIAL IV SCH (10:00)
[2019-06-26] MEDS: SACUBITRIL/VALSARTAN 49 MG/51 MG TABLET PO SCH ×2 (10:45→18:33)
[2019-06-26] MEDS: APIXABAN 2.5 MG TABLET NG SCH ×2 (10:45→21:46)
--- NOTE | 2019-06-26 13:36 | PDOC CRITICAL CARE PROG REPORT ---
General Date:: 06/26/19 ICU Day:: 2 Ventilator Day:: 2 Hospital Day:: 2 Resuscitation Status: Full Code Events in the past 12 to 24 Hours:: Patient admitted to ICU for acute respiratory failure. Hemodynamically stable. Patient failed weaning trials x2 and remains on ventilatory support. Propofol changed to Versed. We will attempt to wean the Versed and attempt another spontaneous weaning trial today. Review of systems relevant to events:: Please see below for complete review of systems. Reason for ICU Addmission:: Acute respiratory failure requiring intubation - Medications: Medications reviewed and adjusted accordingly: Yes Sedation:: She continues on Versed. Physical Exam Vital Signs: Temp Pulse Resp BP Pulse Ox 101.1 F H 65 14 145/110 H 100 06/25/19 16:00 06/26/19 09:00 06/26/19 11:00 06/26/19 10:58 06/26/19 11:00 Intake & Output 06/25/19 06/26/19 06/27/19 06:59 06:59 06:59 Intake Total 840 789 Output Total 4025 2345 375 Balance -3185 -1556 -375 Weight 109.4 kg 107.9 kg Weight/Height Weight 107.9 kg Height 5 ft 5 in General appearance: PRESENT: no acute distress Head exam: PRESENT: atraumatic, normocephalic Eye exam: PRESENT: EOMI, PERRLA Mouth exam: PRESENT: moist Neck exam: PRESENT: full ROM Respiratory exam: PRESENT: other - No auscultation due to possible COVID positive status. No indication of respiratory abnormality as evident by flow volume waves on the ventilator. Pulses: PRESENT: normal radial pulses, +1 pedal pulses bilateral Vascular exam: PRESENT: normal capillary refill GI/Abdominal exam: PRESENT: soft. ABSENT: ascites, distended Extremities exam: ABSENT: pedal edema Musculoskeletal exam: PRESENT: full ROM Neurological exam: PRESENT: other - Intermittently awake when sedation is lightened. Psychiatric exam: PRESENT: other - Easily agitated when off of sedation. Skin exam: PRESENT: warm. ABSENT: rash, skin tears Tubes/Lines: PRESENT: Endotracheal Tube, Central Line Laboratory/Radiographs Laboratory Results: 06/26/19 02:53 06/26/19 02:53 06/26/19 06/26/19 02:53 02:53 WBC 6.3 RBC 3.02 L Hgb 9.3 L Hct 27.7 L MCV 92 MCH 30.9 MCHC 33.7 RDW 17.1 H Plt Count 208 Seg Neutrophils % 81.3 H Sodium 139.0 Potassium 3.7 Chloride 104 Carbon Dioxide 27 Anion Gap 8 BUN 10 Creatinine 1.15 Est GFR ( Amer) > 60 Glucose 112 H Calcium 9.0 Total Bilirubin 2.3 H AST 20 Alkaline Phosphatase 71 Total Protein 6.6 Albumin 3.5 06/24/19 04:58 Blood Blood Culture (PCR) - Final Staphylococcus Species 06/24/19 04:00 Catheterized Urine Urine Culture - Final NO GROWTH 2 DAYS 06/24/19 06/24/19 06/24/19 04:00 04:58 04:58 Troponin I Cancelled 0.084 NT-Pro-B Natriuret Pep 04315 H 06/24/19 13:30 Troponin I NT-Pro-B Natriuret Pep 8010 H Impressions: Chest X-Ray 06/24/19 11:18 IMPRESSION: STABLE APPEARANCE OF THE CHEST. SUPPORT DEVICES UNCHANGED. All labs, radiographs, diagnostic studies and EKGs were personally reviewed: Yes In addition, reports of radiographic and diagnostic studies were read: Yes Assessment and Plan - Diagnosis (1) Uddop-yx-jptkino kidney injury Qualifiers: Acute renal failure type: unspecified Chronic kidney disease stage: stage 3 (moderate) Qualified Code(s): N17.9 - Acute kidney failure, unspecified; N18.3 - Chronic kidney disease, stage 3 (moderate) Is this a current diagnosis for this admission?: Yes Plan: Holding IV fluids for now given her elevated proBNP. Hypokalemia resolved following 40 mEq of potassium administration. (2) Acute on chronic respiratory failure Qualifiers: Respiratory failure complication: hypoxia Qualified Code(s): J96.21 - Acute and chronic respiratory failure with hypoxia Is this a current diagnosis for this admission?: Yes Plan: Possibly secondary to COVID19 infection. Most likely her respiratory failure represents an acute exacerbation of her chronic pulmonary/cardiac failure. Wean ventilator as tolerated as we lower rate of Versed Titrate FiO2 according to monitor SPO2. Maintain SPO2 between 90-95%. Continue Unasyn for possible aspiration pneumonia. Plan Summary: ICU day: 2 Neuro: Patient has been on a propofol drip which is currently being weaned. Was awake and alert yesterday and again last night during her sedation holiday. Pain management/sedation: Currently on Versed which is being weaned to facilitate extubation. No apparent deficits noted. Pulmonary: Vent settings: PRVC 500, respiratory rate 14, PEEP 5, FiO2 30%. Plan is to wean ventilation as tolerated. Wean FiO2 to maintain SPO2 90-95%. Possible aspiration pneumonia. On Unasyn. Cardiovascular: Patient has a significant cardiac history including A. fib, CHF, ischemic cardiomyopathy with AICD placement. Her proBNP improved over the past several days. Will obtain BNP in a.m. Continue to hold IV fluids for now. She was restarted on Eliquis which she takes at home as well as Entresto 49/51 twice daily. Indwelling catheters: Femoral catheter placed on 06/23 in the emergency department. If she requires venous access over the next 24 hours, we will look to change the catheter to a RIJ. Heme: H&H is stable at 9.5/28.4. DVT prophylaxis with Eliquis. Renal: IV fluids being held for CHF with a significantly elevated proBNP as above. She has a history of CKD. Creatinine level improved today.. Monitor I's and O's closely and keep net negative over the next 24 hours. Gastrointestinal: Patient has been n.p.o. over the past [address] on LIWS. GI prophylaxis with Protonix IV started yesterday Diet: Currently n.p.o. Will start tube feeds if not extubated today. : Catheter placed in ED on 06/23. Maintain Jones catheter for now for strict I's and O's. We will look to remove Jones catheter if able to extubate over the next 24 hours. ID: Possible aspiration pneumonia. Started on Unasyn 3 g IV every 6. Mild fever however no significant WBC. Barriers to discharge from ICU: Patient still in respiratory failure and intubated. Possible extubation within the next 24 to 48 hours. Critical Time Critical Time (minutes): 65 Level of Care: ICU -: 1. The care of a critical patient is a dynamic process. This note is a representative government relations synopsis but static in nature. The timeframe for treatments given in order is not necessarily the actual time these treatments may have been done. 2. This patient requires critical care secondary to ongoing requirements for therapy not offered or safe outside the critical care environment. Transfer to a lower level of care will result in altered life or limb morbidity and mortality. 3. Multidisciplinary rounds completed. 4. ABCDE bundle addressed.
[2019-06-26] MEDS: PAROXETINE HCL 20 MG TABLET NG SCH (21:46)
[2019-06-26] MEDS: HYDROCOD/ACETAMIN 7.5-325 MG/15 ML ORAL SOLN UDCUP NG PRN (21:46)
[2019-06-26] MEDS: BUSPIRONE HCL 10 MG TABLET NG SCH (21:46)
[2019-06-27] MEDS: AMPICILLIN SODIUM/SULBACTAM NA 3 GM in NORMAL SALINE 100 ML IV SCH ×4 (03:45→21:27)
[2019-06-27 04:26] LABS: ABSOLUTE EOSINOPHILS # (AUTO) 0.1 10^3/uL (0.0-0.6); ABSOLUTE LYMPHOCYTES (AUTO) 0.6 10^3/uL (0.5-4.7); ABSOLUTE MONOCYTES (AUTO) 0.4 10^3/uL (0.1-1.4); ABSOLUTE NEUT (AUTO) 3.4 10^3/uL (1.7-8.2); BASOPHILS % (AUTO) 0.9 % (0-2); EOSINOPHILS % (AUTO) 1.9 % (0-6); HEMATOCRIT 28.4 % (36.0-47.0); HEMOGLOBIN 9.4 g/dL (12.0-15.5); LYMPHOCYTES % (AUTO) 13.3 % (13-45); MEAN CORPUSCULAR HEMOGLOBIN 30.3 pg (27.0-33.4); MEAN CORPUSCULAR HGB CONC 33.2 g/dL (32.0-36.0); MEAN CORPUSCULAR VOLUME 91 fl (80-97); MONOCYTES % (AUTO) 9.2 % (3-13); PLATELET COUNT 210 10^3/uL (150-450); RED BLOOD COUNT 3.11 10^6/uL (3.72-5.28); SEGMENTED NEUTROPHILS % (AUTO) 74.7 % (42-78); TOTAL CELLS COUNTED % (AUTO) 100 %; WHITE BLOOD COUNT 4.6 10^3/uL (4.0-10.5)
[2019-06-27 04:31] LABS: INTERNATIONAL RATION (INR) 1.35; PROTHROMBIN TIME 16.8 SEC (11.4-15.4)
[2019-06-27 04:32] LABS: PARTIAL THROMBOPLASTIN TIME 36.1 SEC (23.5-35.8)
[2019-06-27 04:38] LABS: ALKALINE PHOSPHATASE 65 U/L (38-126); ANION GAP 8 (5-19); ASPARTATE AMINO TRANSFERASE 15 U/L (14-36); BILIRUBIN,DIRECT 0.3 mg/dL (0.0-0.4); BILIRUBIN,TOTAL 1.5 mg/dL (0.2-1.3); BLOOD UREA NITROGEN 9 mg/dL (7-20); CALCIUM 8.6 mg/dL (8.4-10.2); CARBON DIOXIDE 27 mmol/L (22-30); CHLORIDE 105 mmol/L (98-107); GLUCOSE 85 mg/dL (75-110); PHOSPHORUS 3.8 mg/dL (2.5-4.5); POTASSIUM 3.3 mmol/L (3.6-5.0); TRIGLYCERIDES 171 mg/dL (<150)
[2019-06-27] MEDS: MIDAZOLAM HCL 50 MG/100 ML RTUINJ IV PRN (05:15)
[2019-06-27] MEDS: BUSPIRONE HCL 10 MG TABLET NG SCH ×2 (11:24→21:11)
[2019-06-27] MEDS: APIXABAN 2.5 MG TABLET NG SCH ×2 (11:24→21:11)
[2019-06-27] MEDS: FAMOTIDINE 20 MG TABLET NG SCH ×2 (11:24→21:11)
[2019-06-27] MEDS: SACUBITRIL/VALSARTAN 49 MG/51 MG TABLET PO SCH ×2 (11:25→17:21)
--- NOTE | 2019-06-27 12:49 | PDOC CRITICAL CARE PROG REPORT ---
General Date:: 06/27/19 ICU Day:: 3 Ventilator Day:: 3 Resuscitation Status: Full Code Events in the past 12 to 24 Hours:: 06/25 Patient admitted to ICU for acute respiratory failure. Hemodynamically stable. Patient failed weaning trials x2 and remains on ventilatory support. Propofol changed to Versed. We will attempt to wean the Versed and attempt another spontaneous weaning trial today. 06/26: Over the past 24 hours, patient has been able to tolerate being placed on pressure support ventilation with decreased FiO2 requirements. She is more awake and Versed has been weaned. She was restarted on some of her home meds including Paxil, buspirone and hydrocodone which are helping with her anxiety and discomfort. If able to wean to minimal settings today, we will look to extubate by this evening. Review of systems relevant to events:: Please see below for complete review of systems. Reason for ICU Addmission:: Acute respiratory failure requiring intubation - Medications: Medications reviewed and adjusted accordingly: Yes Sedation:: Versed weaned and is expected to be discontinued today. Physical Exam Vital Signs: Temp Pulse Resp BP Pulse Ox 101.1 F H 69 26 H 116/78 95 06/25/19 16:00 06/27/19 09:00 06/27/19 11:02 06/27/19 11:02 06/27/19 11:33 Intake & Output 06/26/19 06/27/19 06/28/19 06:59 06:59 06:59 Intake Total 789 868 190 Output Total 2345 4625 875 Balance -1556 -1257 -685 Weight 107.9 kg 107.4 kg 107.4 kg Weight/Height Weight 107.4 kg Height 5 ft 5 in General appearance: PRESENT: no acute distress Head exam: PRESENT: atraumatic, normocephalic Eye exam: PRESENT: EOMI, PERRLA Ear exam: PRESENT: normal external ear exam Mouth exam: PRESENT: moist, neck supple Neck exam: PRESENT: full ROM Respiratory exam: PRESENT: clear to auscultation renu. ABSENT: rales, rhonchi, wheezes Cardiovascular exam: PRESENT: other - A paced Pulses: PRESENT: normal carotid pulses, normal radial pulses GI/Abdominal exam: PRESENT: normal bowel sounds Extremities exam: PRESENT: pedal edema, +1 edema Musculoskeletal exam: PRESENT: full ROM, normal inspection Neurological exam: PRESENT: alert, CN II-XII grossly intact Psychiatric exam: PRESENT: appropriate affect Tubes/Lines: PRESENT: Endotracheal Tube, Central Line Laboratory/Radiographs Laboratory Results: 06/27/19 04:10 06/27/19 04:10 06/27/19 06/27/19 04:10 04:10 WBC 4.6 RBC 3.11 L Hgb 9.4 L Hct 28.4 L MCV 91 MCH 30.3 MCHC 33.2 RDW 17.0 H Plt Count 210 Seg Neutrophils % 74.7 Sodium 140.2 Potassium 3.3 L Chloride 105 Carbon Dioxide 27 Anion Gap 8 BUN 9 Creatinine 1.05 Est GFR ( Amer) > 60 Glucose 85 Calcium 8.6 Phosphorus 3.8 Magnesium 1.8 Total Bilirubin 1.5 H AST 15 Alkaline Phosphatase 65 Total Protein 6.0 L Albumin 3.0 L Triglycerides 171 H 06/24/19 23:15 Tracheal Aspirate Gram Stain - Final 06/24/19 04:58 Blood Blood Culture (PCR) - Final Staphylococcus Species 06/24/19 06/24/19 06/24/19 04:00 04:58 04:58 Troponin I Cancelled 0.084 NT-Pro-B Natriuret Pep 65083 H 06/24/19 13:30 Troponin I NT-Pro-B Natriuret Pep 8010 H Impressions: Chest X-Ray 06/24/19 11:18 IMPRESSION: STABLE APPEARANCE OF THE CHEST. SUPPORT DEVICES UNCHANGED. All labs, radiographs, diagnostic studies and EKGs were personally reviewed: Yes In addition, reports of radiographic and diagnostic studies were read: Yes Assessment and Plan - Diagnosis (1) Thqoq-ui-fgmncla kidney injury Qualifiers: Acute renal failure type: unspecified Chronic kidney disease stage: stage 3 (moderate) Qualified Code(s): N17.9 - Acute kidney failure, unspecified; N18.3 - Chronic kidney disease, stage 3 (moderate) Is this a current diagnosis for this admission?: Yes Plan: Again with relative hypokalemia today. Started on electrolyte protocol. Creatinine continuing to trend down. (2) Acute on chronic respiratory failure Qualifiers: Respiratory failure complication: hypoxia Qualified Code(s): J96.21 - Acute and chronic respiratory failure with hypoxia Is this a current diagnosis for this admission?: Yes Plan: COVID negative. Respiratory failure secondary to acute on chronic pulmonary/cardiac failure. Wean ventilator as tolerated as we lower rate of Versed Titrate FiO2 according to monitor SPO2. Maintain SPO2 between 90-95%. Continue Unasyn for possible aspiration pneumonia. Plan Summary: ICU day:3 Neuro: Patient's sedation was changed to Versed. Versed rate is being weaned and is now at 3. She is awake but still a bit groggy. We are now reducing the Versed further. Pain management/sedation: Started overnight on her home dose of hydrocodone/Tylenol. Also started on buspirone and Paxil. Plan is to continue PRN medications to help with discomfort and reduce her dependency on Versed. Pulmonary: Vent weaned down to pressure support of 12, FiO2 21%. Continue to wean vent as tolerated. Wean FiO2 to maintain SPO2 90-95%. Possible aspiration pneumonia. On Unasyn. Cardiovascular: Patient has a significant cardiac history including A. fib, CHF, ischemic cardiomyopathy with AICD placement. Her proBNP improved over the past several days. Pro-BNP pending. Continue to hold IV fluids for now. Continues on Eliquis and Entresto 49/51 twice daily. Indwelling catheters: Femoral catheter placed on 06/23 in the emergency department. No signs of infection at this time. I am hopeful that we will be able to obtain peripheral IVs. If not, we will need to change her TLC to her IJ. Heme: H&H is stable at 9.4/28.4. DVT prophylaxis with Eliquis. Renal: IV fluids being held for CHF with a significantly elevated proBNP as above. She has a history of CKD. Creatinine level improved further today. We will begin to target her eyes and nose to be equal. Gastrointestinal: Patient has been n.p.o. over the past [address] on LIWS. GI prophylaxis changed to Pepcid. Diet: Currently n.p.o. Tube feeds started today. : Catheter placed in ED on 06/23. Maintain Jones catheter for now for strict I's and O's. We will look to remove Jones catheter if able to extubate over the next 24 hours. ID: Possible aspiration pneumonia. Started on Unasyn 3 g IV every 6. Still with mild fever however, no significant WBC. Barriers to discharge from ICU: Patient still in respiratory failure and intubated. Possible extubation within the next 24 hours. Critical Time Critical Time (minutes): 68 Level of Care: ICU -: 1. The care of a critical patient is a dynamic process. This note is a patient care representative synopsis but static in nature. The timeframe for treatments given in order is not necessarily the actual time these treatments may have been done. 2. This patient requires critical care secondary to ongoing requirements for therapy not offered or safe outside the critical care environment. Transfer to a lower level of care will result in altered life or limb morbidity and mortality. 3. Multidisciplinary rounds completed. 4. ABCDE bundle addressed.
[2019-06-27 16:16] LABS: ARTERIAL BLOOD BASE EXCESS 2.2 mmol/L; ARTERIAL BLOOD FIO2 30%; ARTERIAL BLOOD HCO3 25.9 mmol/L (20-24); ARTERIAL BLOOD O2 SATURATION 82.7 % (94-98); ARTERIAL BLOOD PCO2 36.7 mmHg (35-45); ARTERIAL BLOOD PH 7.47 (7.35-7.45); ARTERIAL BLOOD PO2 43.7 mmHg (80-100)
[2019-06-27] MEDS: HYDROCOD/ACETAMIN 7.5-325 MG/15 ML ORAL SOLN UDCUP NG PRN (20:59)
[2019-06-27] MEDS: PAROXETINE HCL 20 MG TABLET NG SCH (21:11)
[2019-06-27] MEDS ORDERED: ACETAMINOPHEN SOLN 325 MG/10.15 ML UDCUP NG PRN (21:26)
[2019-06-27] MEDS: MAGNESIUM SULFATE/D5W 1 GM/100 ML RTUPB IV SCH ×2 (21:40→22:51)
[2019-06-27] MEDS ORDERED: POTASSIUM CHLORIDE 20 MEQ PACKET NG ONE (22:00)
[2019-06-28] MEDS: MIDAZOLAM HCL 50 MG/100 ML RTUINJ IV PRN (01:46)
[2019-06-28] MEDS: AMPICILLIN SODIUM/SULBACTAM NA 3 GM in NORMAL SALINE 100 ML IV SCH ×4 (02:52→22:34)
[2019-06-28] MEDS: HYDROCOD/ACETAMIN 7.5-325 MG/15 ML ORAL SOLN UDCUP NG PRN ×3 (03:40→22:29)
[2019-06-28 04:29] LABS: ABSOLUTE BASOPHILS # (AUTO) 0.1 10^3/uL (0.0-0.2); ABSOLUTE LYMPHOCYTES (AUTO) 0.8 10^3/uL (0.5-4.7); ABSOLUTE MONOCYTES (AUTO) 0.6 10^3/uL (0.1-1.4); ABSOLUTE NEUT (AUTO) 3.5 10^3/uL (1.7-8.2); EOSINOPHILS % (AUTO) 0.7 % (0-6); HEMATOCRIT 28.7 % (36.0-47.0); HEMOGLOBIN 9.6 g/dL (12.0-15.5); LYMPHOCYTES % (AUTO) 16.2 % (13-45); MEAN CORPUSCULAR HEMOGLOBIN 30.7 pg (27.0-33.4); MEAN CORPUSCULAR HGB CONC 33.5 g/dL (32.0-36.0); MEAN CORPUSCULAR VOLUME 92 fl (80-97); MONOCYTES % (AUTO) 12.2 % (3-13); PLATELET COUNT 239 10^3/uL (150-450); RED BLOOD COUNT 3.12 10^6/uL (3.72-5.28); RED CELL DISTRIBUTION WIDTH 16.9 % (11.5-14.0); SEGMENTED NEUTROPHILS % (AUTO) 69.9 % (42-78); TOTAL CELLS COUNTED % (AUTO) 100 %
[2019-06-28 04:46] LABS: ANION GAP 7 (5-19); BLOOD UREA NITROGEN 8 mg/dL (7-20); CALCIUM 8.6 mg/dL (8.4-10.2); CARBON DIOXIDE 28 mmol/L (22-30); CHLORIDE 106 mmol/L (98-107); GLUCOSE 131 mg/dL (75-110); POTASSIUM 3.8 mmol/L (3.6-5.0)
--- NOTE | 2019-06-28 06:40 | RADIOLOGY REPORT (SQ) ---
EXAM DESCRIPTION: XR CHEST 1 VIEW COMPLETED DATE/TME: 06/28/2019 00:00 CLINICAL HISTORY: worsening infiltrate/effusions COMPARISON: 06/24/2019 FINDINGS: Single frontal view of the chest. Tubes and lines: Endotracheal tube with tip 4 cm above the bruna. NG tube with tip below the diaphragm. Left-sided pacemaker. Leads overlie the chest. Cardiomediastinal silhouette: Cardiomegaly with prior median sternotomy. Lungs: Persistent bilateral interstitial and alveolar opacities and small bilateral pleural effusions. No pneumothorax. Bones: Stable. Upper abdomen: Stable. IMPRESSION: 1. Stable appearance of the chest.
[2019-06-28] MEDS: APIXABAN 2.5 MG TABLET NG SCH ×2 (09:49→22:30)
[2019-06-28] MEDS: FAMOTIDINE 20 MG TABLET NG SCH ×2 (09:49→22:30)
[2019-06-28] MEDS: BUSPIRONE HCL 10 MG TABLET NG SCH ×2 (09:49→22:30)
[2019-06-28] MEDS: SACUBITRIL/VALSARTAN 49 MG/51 MG TABLET PO SCH ×2 (09:49→17:07)
--- NOTE | 2019-06-28 17:02 | PDOC CRITICAL CARE PROG REPORT ---
General Date:: 06/28/19 ICU Day:: 4 Ventilator Day:: 4 Resuscitation Status: Full Code Events in the past 12 to 24 Hours:: 06/25 Patient admitted to ICU for acute respiratory failure. Hemodynamically stable. Patient failed weaning trials x2 and remains on ventilatory support. Propofol changed to Versed. We will attempt to wean the Versed and attempt another spontaneous weaning trial today. 06/26: Over the past 24 hours, patient has been able to tolerate being placed on pressure support ventilation with decreased FiO2 requirements. She is more awake and Versed has been weaned. She was restarted on some of her home meds including Paxil, buspirone and hydrocodone which are helping with her anxiety and discomfort. If able to wean to minimal settings today, we will look to extubate by this evening. 06/26: Patient extubated this morning and is now on nasal cannula. She is tolerating extubation well with no respiratory distress. Amrit off of any standing sedation but can receive hydrocodone/Tylenol as needed. Review of systems relevant to events:: Please see below for complete review of systems. Reason for ICU Addmission:: Acute respiratory failure requiring intubation - Medications: Medications reviewed and adjusted accordingly: Yes Physical Exam Vital Signs: Temp Pulse Resp BP Pulse Ox 98.8 F 70 22 H 108/84 94 06/28/19 14:00 06/28/19 14:00 06/28/19 15:15 06/28/19 15:15 06/28/19 15:15 Intake & Output 06/27/19 06/28/19 06/29/19 06:59 06:59 06:59 Intake Total 868 1445 321 Output Total 2125 1660 250 Balance -1257 -215 71 Weight 107.4 kg 108.2 kg Weight/Height Weight 108.2 kg Height 5 ft 5 in General appearance: PRESENT: no acute distress Head exam: PRESENT: atraumatic, normocephalic Eye exam: PRESENT: EOMI, PERRLA Ear exam: PRESENT: normal external ear exam. ABSENT: drainage Mouth exam: PRESENT: moist Neck exam: PRESENT: full ROM. ABSENT: tenderness Respiratory exam: PRESENT: unlabored. ABSENT: accessory muscle use, retraction, rhonchi, wheezes Cardiovascular exam: PRESENT: RRR, +S1, +S2 Pulses: PRESENT: normal carotid pulses, normal radial pulses, +1 pedal pulses bilateral Vascular exam: PRESENT: normal capillary refill GI/Abdominal exam: PRESENT: normal bowel sounds, soft Neurological exam: PRESENT: alert, awake, oriented to person, oriented to time, oriented to situation, CN II-XII grossly intact Psychiatric exam: PRESENT: appropriate affect. ABSENT: agitated Skin exam: PRESENT: dry, intact. ABSENT: abrasion, rash Tubes/Lines: PRESENT: Central Line Laboratory/Radiographs Laboratory Results: 06/28/19 04:11 06/28/19 04:11 06/28/19 06/28/19 04:11 04:11 WBC 5.0 RBC 3.12 L Hgb 9.6 L Hct 28.7 L MCV 92 MCH 30.7 MCHC 33.5 RDW 16.9 H Plt Count 239 Seg Neutrophils % 69.9 Sodium 140.6 Potassium 3.8 Chloride 106 Carbon Dioxide 28 Anion Gap 7 BUN 8 Creatinine 1.13 Est GFR ( Amer) > 60 Glucose 131 H Calcium 8.6 06/24/19 04:58 Blood Blood Culture (PCR) - Final Staphylococcus Species 06/24/19 04:58 Blood Blood Culture - Final Staphylococcus Haemolyticus 06/24/19 23:15 Tracheal Aspirate Gram Stain - Final 06/24/19 06/24/19 06/24/19 04:00 04:58 04:58 Troponin I Cancelled 0.084 NT-Pro-B Natriuret Pep 96321 H 06/24/19 06/27/19 13:30 15:38 Troponin I NT-Pro-B Natriuret Pep 8010 H 1340 H Impressions: Chest X-Ray 06/28/19 00:00 IMPRESSION: 1. Stable appearance of the chest. All labs, radiographs, diagnostic studies and EKGs were personally reviewed: Yes In addition, reports of radiographic and diagnostic studies were read: Yes Assessment and Plan - Diagnosis (1) Cfasc-kp-wkwiqkz kidney injury Qualifiers: Acute renal failure type: unspecified Chronic kidney disease stage: stage 3 (moderate) Qualified Code(s): N17.9 - Acute kidney failure, unspecified; N18.3 - Chronic kidney disease, stage 3 (moderate) Is this a current diagnosis for this admission?: Yes Plan: Again with relative hypokalemia today. Started on electrolyte protocol. Creatinine continuing to trend down. (2) Acute on chronic respiratory failure Qualifiers: Respiratory failure complication: hypoxia Qualified Code(s): J96.21 - Acute and chronic respiratory failure with hypoxia Is this a current diagnosis for this admission?: Yes Plan: COVID negative. Respiratory failure secondary to acute on chronic pulmonary/cardiac failure. Weaned off of ventilatory support today. We will continue to monitor closely. We can use BiPAP if needed for respiratory support. Plan Summary: ICU day:4 Neuro: Patient is awake and alert. She is now receiving only her home dose of hydrocodone/Tylenol. Also started on buspirone and Paxil. Pulmonary: Extubated and on nasal cannula. Patient breathing comfortably. He can use BiPAP if needed for any respiratory support. May need nocturnal support. Possible aspiration pneumonia. On Unasyn. Cardiovascular: Patient has a significant cardiac history including A. fib, CHF, ischemic cardiomyopathy with AICD placement. Her proBNP improved over the past several days. Continue to hold IV fluids for now. Continues on Eliquis and Entresto 49/51 twice daily. Indwelling catheters: Femoral Vein catheter placed on 06/23 in the emergency department. No signs of infection at this time. I am hopeful that we will be able to obtain peripheral IVs. If not, we will need to change her TLC to her IJ. Heme: H&H is stable at 9.6/28.7 DVT prophylaxis with Eliquis. Renal: IV fluids being held for CHF with a significantly elevated proBNP. She has a history of CKD. Creatinine level improved further today. We will begin to target her I/O to be equal. Gastrointestinal: Patient has been n.p.o. over the past 24 hours. OGT removed. Can start ice chips and sips of water. GI prophylaxis changed to Pepcid. : Remove Jones Catheter ID: Possible aspiration pneumonia. Started on Unasyn 3 g IV every 6. Still with mild fever however, no significant WBC. Barriers to discharge from ICU: Patient extubated today. If stable, may be transferred to medicine floor tomorrow morning. Critical Time Critical Time (minutes): 65 Level of Care: ICU -: 1. The care of a critical patient is a dynamic process. This note is a airport representative synopsis but static in nature. The timeframe for treatments g iven in order is not necessarily the actual time these treatments may have been done. 2. This patient requires critical care secondary to ongoing requirements for therapy not offered or safe outside the critical care environment. Transfer to a lower level of care will result in altered life or limb morbidity and mortality. 3. Multidisciplinary rounds completed. 4. ABCDE bundle addressed.
[2019-06-28] MEDS: PAROXETINE HCL 20 MG TABLET NG SCH (22:30)
[2019-06-29] MEDS: AMPICILLIN SODIUM/SULBACTAM NA 3 GM in NORMAL SALINE 100 ML IV SCH ×2 (03:12→10:30)
[2019-06-29 05:20] LABS: ANION GAP 7 (5-19); BLOOD UREA NITROGEN 6 mg/dL (7-20); CALCIUM 8.6 mg/dL (8.4-10.2); CARBON DIOXIDE 28 mmol/L (22-30); CHLORIDE 107 mmol/L (98-107); GLUCOSE 95 mg/dL (75-110); POTASSIUM 3.8 mmol/L (3.6-5.0)
--- NOTE | 2019-06-29 08:18 | PDOC CRITICAL CARE PROG REPORT ---
General Date:: 06/29/19 ICU Day:: 5 Resuscitation Status: Full Code Events in the past 12 to 24 Hours:: 06/25 Patient admitted to ICU for acute respiratory failure. Hemodynamically stable. Patient failed weaning trials x2 and remains on ventilatory support. Propofol changed to Versed. We will attempt to wean the Versed and attempt another spontaneous weaning trial today. 06/26: Over the past 24 hours, patient has been able to tolerate being placed on pressure support ventilation with decreased FiO2 requirements. She is more awake and Versed has been weaned. She was restarted on some of her home meds including Paxil, buspirone and hydrocodone which are helping with her anxiety and discomfort. If able to wean to minimal settings today, we will look to extubate by this evening. 06/26: Patient extubated this morning and is now on nasal cannula. She is tolerating extubation well with no respiratory distress. Amrit off of any standing sedation but can receive hydrocodone/Tylenol as needed. 06/28: Patient did well overnight. She was extubated yesterday and was breathing comfortably throughout the day. She has a longstanding history with us and regularly needs nocturnal BiPAP which was preemptively started. Patient rested comfortably. She is appropriate to transfer out of the intensive care unit. Will need follow-up with cardiology. Review of systems relevant to events:: Please see below for complete review of systems. Reason for ICU Addmission:: Acute respiratory failure requiring intubation - Medications: Medications reviewed and adjusted accordingly: Yes Physical Exam Vital Signs: Temp Pulse Resp BP Pulse Ox 100.0 F 75 26 H 155/97 H 99 06/29/19 07:26 06/29/19 07:26 06/29/19 07:26 06/29/19 07:26 06/29/19 07:26 Intake & Output 06/28/19 06/29/19 06/30/19 06:59 06:59 06:59 Intake Total 1445 521 Output Total 1660 1230 45 Balance -215 -709 -45 Weight 108.2 kg 108.8 kg Weight/Height Weight 108.8 kg Height 5 ft 5 in General appearance: PRESENT: no acute distress Head exam: PRESENT: atraumatic, normocephalic Eye exam: PRESENT: EOMI, PERRLA Ear exam: PRESENT: normal external ear exam. ABSENT: drainage Mouth exam: PRESENT: moist Neck exam: PRESENT: full ROM. ABSENT: carotid bruit, lymphadenopathy Respiratory exam: PRESENT: other - Mild bilateral rhonchi, diminished at the bases. Cardiovascular exam: PRESENT: RRR, +S1, +S2 Pulses: PRESENT: normal carotid pulses, normal radial pulses, +1 pedal pulses bilateral Vascular exam: PRESENT: normal capillary refill GI/Abdominal exam: PRESENT: normal bowel sounds Extremities exam: PRESENT: full ROM, +1 edema Musculoskeletal exam: PRESENT: normal inspection Neurological exam: PRESENT: alert, awake, oriented to person, oriented to time, oriented to situation, CN II-XII grossly intact. ABSENT: motor sensory deficit Psychiatric exam: PRESENT: appropriate affect, normal mood Laboratory/Radiographs Laboratory Results: 06/28/19 04:11 06/29/19 05:00 06/29/19 05:00 Sodium 141.8 Potassium 3.8 Chloride 107 Carbon Dioxide 28 Anion Gap 7 BUN 6 L Creatinine 1.07 Est GFR ( Amer) > 60 Glucose 95 Calcium 8.6 Magnesium 2.2 06/24/19 04:00 Blood Blood Culture - Final NO GROWTH IN 5 DAYS 06/24/19 04:58 Blood Blood Culture (PCR) - Final Staphylococcus Species 06/24/19 04:58 Blood Blood Culture - Final Staphylococcus Haemolyticus 06/24/19 23:15 Tracheal Aspirate Gram Stain - Final 06/24/19 06/24/19 06/24/19 04:00 04:58 04:58 Troponin I Cancelled 0.084 NT-Pro-B Natriuret Pep 45668 H 06/24/19 06/27/19 13:30 15:38 Troponin I NT-Pro-B Natriuret Pep 8010 H 1340 H Impressions: Chest X-Ray 06/28/19 00:00 IMPRESSION: 1. Stable appearance of the chest. All labs, radiographs, diagnostic studies and EKGs were personally reviewed: Yes In addition, reports of radiographic and diagnostic studies were read: Yes Assessment and Plan - Diagnosis (1) Azmny-[id number] kidney injury Qualifiers: Acute renal failure type: unspecified Chronic kidney disease stage: stage 3 (moderate) Qualified Code(s): N17.9 - Acute kidney failure, unspecified; N18.3 - Chronic kidney disease, stage 3 (moderate) Is this a current diagnosis for this admission?: Yes Plan: . Electrolytes are stable. On electrolyte replacement protocol. BUN/creatinine are approaching her baseline. (2) Acute on chronic respiratory failure Qualifiers: Respiratory failure complication: hypoxia Qualified Code(s): J96.21 - Acute and chronic respiratory failure with hypoxia Is this a current diagnosis for this admission?: Yes Plan: COVID negative. Respiratory failure secondary to acute on chronic pulmonary/cardiac failure. Weaned off of ventilatory support today She benefits from BiPAP support overnight. Plan Summary: ICU day:5 Neuro: Patient is awake and alert. She is now receiving only her home dose of hydrocodone/Tylenol. Also started on buspirone and Paxil. Pulmonary: Extubated and on nasal cannula. Patient breathing comfortably. Would continue BiPAP support at night. Possible aspiration pneumonia. On Unasyn. Cardiovascular: Patient has a significant cardiac history including A. fib, CHF, ischemic cardiomyopathy with AICD placement. Her proBNP improved over the past several days. Continue to hold IV fluids for now. Continues on Eliquis and Entresto 49/51 twice daily. Indwelling catheters: Femoral Vein catheter placed on 06/23 in the emergency department. No signs of infection at this time. I am hopeful that we will be able to obtain peripheral IVs. If not, we will need to change her TLC to her IJ. Heme: H&H is stable. DVT prophylaxis with Eliquis. Renal: IV fluids being held for CHF with a significantly elevated proBNP. She has a history of CKD. Creatinine level improved further today. Monitor I's and O's and keep even balance. Gastrointestinal: Patient can receive small sips of liquids. Avoid large volume intake due to her CHF. GI prophylaxis changed to Pepcid. : Remove Jones Catheter ID: Possible aspiration pneumonia. Started on Unasyn 3 g IV every 6. Still with mild fever however, no significant WBC. Barriers to discharge from ICU: Patient has been breathing well over the past 24 hours since extubated. She tolerates BiPAP well overnight. She is appropriate for transfer out of the intensive care unit. She will benefit from cardiology following. Critical Time Critical Time (minutes): 40 Level of Care: ICU -: 1. The care of a critical patient is a dynamic process. This note is a repr esentative synopsis but static in nature. The timeframe for treatments given in order is not necessarily the actual time these treatments may have been done. 2. This patient requires critical care secondary to ongoing requirements for therapy not offered or safe outside the critical care environment. Transfer to a lower level of care will result in altered life or limb morbidity and mortality. 3. Multidisciplinary rounds completed. 4. ABCDE bundle addressed.
[2019-06-29] MEDS: FAMOTIDINE 20 MG TABLET NG SCH ×2 (10:33→21:41)
[2019-06-29] MEDS: SACUBITRIL/VALSARTAN 49 MG/51 MG TABLET PO SCH ×2 (10:33→17:11)
[2019-06-29] MEDS: APIXABAN 2.5 MG TABLET NG SCH ×2 (10:33→21:41)
[2019-06-29] MEDS: BUSPIRONE HCL 10 MG TABLET NG SCH ×2 (10:33→21:41)
--- NOTE | 2019-06-29 13:01 | Progress Note ---
Provider Note Provider Note: 06/29/2019 The patient will be transferring out of the ICU today. I did stop by to see her. She is breathing comfortably and has no current complaints. We reviewed the events prior to this admission. I am very familiar with this patient and her severe heart disease and comorbidities. I told her that I will be seeing her daily starting tomorrow.
[2019-06-29] MEDS: HYDROCOD/ACETAMIN 7.5-325 MG/15 ML ORAL SOLN UDCUP NG PRN ×2 (17:14→21:41)
[2019-06-29] MEDS: PAROXETINE HCL 20 MG TABLET NG SCH (21:41)
[2019-06-30] MEDS: HYDROCOD/ACETAMIN 7.5-325 MG/15 ML ORAL SOLN UDCUP NG PRN ×3 (01:26→10:27)
[2019-06-30] MEDS: NORMAL SALINE INJ/PF 0.9% 10 ML SDV IV PRN ×3 (06:35→22:27)
[2019-06-30] MEDS: BUSPIRONE HCL 10 MG TABLET NG SCH (10:27)
[2019-06-30] MEDS: SACUBITRIL/VALSARTAN 49 MG/51 MG TABLET PO SCH ×2 (10:27→18:09)
[2019-06-30] MEDS: FAMOTIDINE 20 MG TABLET NG SCH (10:27)
[2019-06-30] MEDS: APIXABAN 2.5 MG TABLET NG SCH (10:27)
[2019-06-30] MEDS ORDERED: ACETAMINOPHEN 325 MG TABLET PO PRN (12:28)
--- NOTE | 2019-06-30 13:15 | PDOC PROGRESS REPORT ---
Subjective Progress Note for:: 06/30/19 Subjective:: The patient feels poorly. She took her BiPAP off but could not find her nasal cannula. Someone recommended find it. She was feeling lightheaded at the time. I did check her pulse oximeter at the bedside and it was 98% on her 4 L nasal cannula. Her biggest complaint is pain and swelling in her right knee. Reason For Visit: ACUTE HYPOXIC RESPIRATORY FAILURE Physical Exam Vital Signs: Temp Pulse Resp BP Pulse Ox 98.4 F 71 21 H 112/82 97 06/30/19 12:00 06/30/19 12:00 06/30/19 12:00 06/30/19 12:00 06/30/19 12:00 Intake & Output 06/29/19 06/30/19 07/01/19 06:59 06:59 06:59 Intake Total 621 340 Output Total 1230 795 Balance -609 -455 Weight 108.8 kg 108.8 kg General appearance: PRESENT: cooperative, mild distress, obese, well-developed, well-nourished Head exam: PRESENT: atraumatic, normocephalic Eye exam: PRESENT: conjunctiva pale, EOMI, scleral icterus Ear exam: PRESENT: normal external ear exam. ABSENT: bleeding, drainage Mouth exam: PRESENT: moist, tongue midline Neck exam: PRESENT: JVD. ABSENT: carotid bruit, lymphadenopathy, thyromegaly Respiratory exam: PRESENT: rhonchi - Left side, symmetrical, tachypnea - Mild. ABSENT: accessory muscle use Cardiovascular exam: PRESENT: RRR, +S1, +S2, other - Called to auscultate due to breath sounds GI/Abdominal exam: PRESENT: normal bowel sounds, soft. ABSENT: distended, guarding, tenderness Rectal exam: PRESENT: deferred Gentrourinary exam: PRESENT: other - Central line right groin. ABSENT: indwelling catheter Extremities exam: PRESENT: joint swelling - The right knee is quite swollen. The patella is ballotable. There is increased tenderness. There is decreased range of motion due to pain. I do not appreciate any wounds or open areas on the knee., tenderness - Right knee Musculoskeletal exam: ABSENT: ambulatory - Secondary to pain, deformity, normal inspection Neurological exam: PRESENT: alert, awake, oriented to person, oriented to place, oriented to time, oriented to situation, CN II-XII grossly intact. ABSENT: altered, motor sensory deficit Psychiatric exam: PRESENT: appropriate affect - Affect reflects her discomfort. ABSENT: agitated, anxious Focused psych exam: ABSENT: delusional, paranoid, restlessness Skin exam: PRESENT: dry, normal color, warm, other - The skin over the right knee is warmer to touch than the surrounding skin. Results Laboratory Results: 06/28/19 04:11 06/29/19 05:00 06/24/19 23:15 Tracheal Aspirate Gram Stain - Final 06/24/19 23:15 Tracheal Aspirate Sputum Culture - Final Mrsa (Meth Resis Staph Aureus) Normal Evelyn 06/24/19 06/24/19 06/24/19 04:00 04:58 04:58 Troponin I Cancelled 0.084 NT-Pro-B Natriuret Pep [id number] H 06/24/19 06/27/19 13:30 15:38 Troponin I NT-Pro-B Natriuret Pep 8010 H 1340 H Impressions: Chest X-Ray 06/28/19 00:00 IMPRESSION: 1. Stable appearance of the chest. Assessment and Plan - Diagnosis (1) Acute and chronic respiratory failure with hypoxia Is this a current diagnosis for this admission?: Yes Plan: 06/30/2019 The patient was admitted on June 23 and immediately intubated. She was extubated I believe on 26 June. Today she is on BiPAP. Late morning she is going to take BiPAP mask off for lunch could not find her nasal cannula as described above. She is dependent on oxygen and we will work towards her baseline oxygen supplement which I believe is 2 to 3 L by nasal cannula. The most likely cause of her failure is her congestive heart failure. (2) Acute on chronic systolic (congestive) heart failure Is this a current diagnosis for this admission?: Yes Plan: 06/30/2019 The patient is on her Entresto. Based on her pulse and blood pressure we will be looking to add back metoprolol and furosemide. She has continued in a negative fluid balance since admission with only a single dose of furosemide at the time of admission. We will likely resume furosemide daily dosing. I have consulted Dr. Martin who is her courtroom deputy. (3) Acute renal failure superimposed on chronic kidney disease Qualifiers: Acute renal failure type: unspecified Chronic kidney disease stage: stage 3 (moderate) Qualified Code(s): N17.9 - Acute kidney failure, unspecified; N18.3 - Chronic kidney disease, stage 3 (moderate) Is this a current diagnosis for this admission?: Yes Plan: 06/30/2019 Serum creatinine is in the normal range and GFR is greater than 60. This is improved from admission. It is also much better historically since prior to Apr of this year her GFR was typically between 30 and 60. (4) Right knee pain Qualifiers: Chronicity: acute Qualified Code(s): M25.561 - Pain in right knee Is this a current diagnosis for this admission?: Yes Plan: 06/30/2019 There is obvious swelling likely fluid in the right knee. I will obtain x-rays. The patient is afebrile at this time. Consider orthopedic consult. If her white count is elevated or if her temperature increases we will obtain blood cultures as well. Narcotic analgesia for now. With her underlying kidney and heart disease we will try and avoid nonsteroidal anti-inflammatory medications. (5) Depression with anxiety Is this a current diagnosis for this admission?: Yes Plan: 06/30/2019 Continue BuSpar and Paxil (6) Cardiomyopathy Qualifiers: Cardiomyopathy type: dilated Qualified Code(s): I42.0 - Dilated cardiomyopathy Is this a current diagnosis for this admission?: Yes Plan: 06/30/2019 Etiology is multifactorial including cocaine, alcohol and coronary disease with hyperlipidemia. The goal is to return to her normal outpatient medication. (7) CAD (coronary artery disease) Qualifiers: Coronary Disease-Associated Artery/Lesion type: [place] artery [place] vs. transplanted heart: [place] heart Associated angina: with unspecified angina Qualified Code(s): I25.119 - Atherosclerotic heart disease of [place] coronary artery with unspecified angina pectoris Is this a current diagnosis for this admission?: No Plan: 06/30/2019 No current complaints of acute coronary syndrome/chest pain. Because returned to her baseline medication regimen. (8) Longstanding persistent atrial fibrillation Is this a current diagnosis for this admission?: Yes Plan: 06/30/2019 Currently in sinus rhythm. Apixaban has been restarted. We will restart metoprolol when the blood pressure and pulse allow. - Time Time Spent with patient: 15-24 minutes Medications reviewed and adjusted accordingly: Yes
--- NOTE | 2019-06-30 13:31 | RADIOLOGY REPORT (SQ) ---
EXAM DESCRIPTION: KNEE RIGHT 2 VIEWS IMAGES COMPLETED DATE/TIME: 06/30/2019 12:55 pm REASON FOR STUDY: Increased swelling, pain COMPARISON: None. NUMBER OF VIEWS: Two views right knee LIMITATIONS: None. FINDINGS: Osteopenic. Mild medial compartment narrowing. Sizable joint effusion. No displaced fra cture. OTHER: No other significant finding. IMPRESSION: Large joint effusion. Osteopenia and DJD. TECHNICAL DOCUMENTATION: JOB ID: [id number] Reading location - IP/workstation name: [email or web address]
[2019-06-30] MEDS: MORPHINE SULFATE 10 MG/ML INJ IV PRN ×2 (13:45→22:26)
[2019-06-30 13:58] LABS: ANION GAP 8 (5-19); BLOOD UREA NITROGEN 7 mg/dL (7-20); CARBON DIOXIDE 29 mmol/L (22-30); CHLORIDE 102 mmol/L (98-107); GLUCOSE 115 mg/dL (75-110); POTASSIUM 3.9 mmol/L (3.6-5.0)
[2019-06-30 14:13] LABS: ABSOLUTE EOSINOPHILS # (AUTO) 0.1 10^3/uL (0.0-0.6); ABSOLUTE LYMPHOCYTES (AUTO) 1.2 10^3/uL (0.5-4.7); ABSOLUTE MONOCYTES (AUTO) 0.4 10^3/uL (0.1-1.4); ABSOLUTE NEUT (AUTO) 2.3 10^3/uL (1.7-8.2); BASOPHILS % (AUTO) 1.2 % (0-2); EOSINOPHILS % (AUTO) 1.6 % (0-6); HEMOGLOBIN 10.6 g/dL (12.0-15.5); LYMPHOCYTES % (AUTO) 29.4 % (13-45); MEAN CORPUSCULAR HEMOGLOBIN 30.4 pg (27.0-33.4); MEAN CORPUSCULAR HGB CONC 33.1 g/dL (32.0-36.0); MEAN CORPUSCULAR VOLUME 92 fl (80-97); MONOCYTES % (AUTO) 10.3 % (3-13); PLATELET COUNT 307 10^3/uL (150-450); RED BLOOD COUNT 3.49 10^6/uL (3.72-5.28); SEGMENTED NEUTROPHILS % (AUTO) 57.5 % (42-78); TOTAL CELLS COUNTED % (AUTO) 100 %; WHITE BLOOD COUNT 4.1 10^3/uL (4.0-10.5)
[2019-06-30 14:53] LABS: ERYTHROCYTE SEDIMENTATION RATE 77 mm/hr (0-20)
[2019-06-30] MEDS: HYDROCODONE/ACETAMINOPHEN 10-325 MG TABLET PO PRN (16:41)
--- NOTE | 2019-06-30 21:53 | PDOC CONSULTATION ---
Consultation-Blank Consultation: CARDIOLOGY CONSULTATION by Dr. solano S1 on 06/30/2019. Patient seen at 12 noon 60 minutes spent on the patient with more than 50% of time spent in direct patient care. REASON FOR CONSULTATION: Patient followed by me in the office admitted with acute on chronic CHF. CONSULT REQUESTING PHYSICIAN: Dr. Bar[facility] HISTORY OF PRESENT ILLNESS: Past Medical History Cardiac Medical History: Reports: Atrial Fibrillation, Congestive Heart Failure, Coronary Artery Disease, Myocardial Infarction, Hyperlipidema, Hypertension Denies: DVT, Pulmonary Embolism Pulmonary Medical History: Reports: Bronchitis, Chronic Obstructive Pulmonary Disease (COPD), Intubation, Pneumonia, Respiratory Failure, Sleep Apnea Denies: Asthma Neurological Medical History: Denies: Seizures Endocrine Medical History: Denies: Diabetes Mellitus Type 1, Diabetes Mellitus Type 2, Hyperthyroidism, Hypothyroidism GI Medical History: Reports: Gastroesophageal Reflux Disease Denies: Cirrhosis, Crohn's Disease, Hepatitis, Hiatal Hernia, Ulcerative Colitis Musculoskeltal Medical History: Denies: Arthritis, Gout Skin Medical History: Denies: Eczema, Psoriasis Psychiatric Medical History: Reports: Depression, Substance Abuse, Tobacco Dependency Hematology: Reports: Anemia - Chronic, Bleeding Tendencies - "On blood thinners" Infectious Medical History: Reports: Methicillin-Resistant Staph Aureus - And sputum on last admission. Past Surgical History Past Surgical History: Reports: Cardiac Catheterization - multiple, Section, Coronary Artery Bypass Graft - 2006, Coronary Stent - Multiple, Hysterectomy, Pacemaker - AICD, Tubal Ligation Denies: Mastectomy Current Medications Generic Name Dose Route Start Last Admin Trade Name Freq PRN Reason Stop Dose Admin Acetaminophen 650 mg 06/30/19 12:28 Tylenol 325 Mg Tablet PO 07/30/19 12:27 Q4HP PRN FOR PAIN OR TEMP Hydrocodone Bitart/Acetaminophen 1 tab 06/30/19 12:30 06/30/19 16:41 Bloomery 10-325 Mg Tablet PO 07/07/19 12:29 1 tab Q4HP PRN Administration FOR PAIN SCALE 3-4 Alprazolam 0.5 mg 06/30/19 12:21 Xanax 0.5 Mg Tablet PO 07/07/19 12:20 Q6HP PRN ANXIETY Apixaban 2.5 mg 06/30/19 22:00 06/30/19 22:26 Eliquis 2.5 Mg Tablet PO 06/01/20 21:59 2.5 mg Q12 WILY Administration Atorvastatin Calcium 80 mg 06/30/19 22:00 06/30/19 22:26 Lipitor 80 Mg Tablet PO 07/30/19 21:59 80 mg QHS WILY Administration Buspirone HCl 10 mg 06/30/19 22:00 06/30/19 22:26 Buspar 10 Mg Tablet PO 07/30/19 21:59 10 mg Q12 WILY Administration Famotidine 20 mg 06/30/19 22:00 06/30/19 22:27 Pepcid 20 Mg Tablet PO 07/30/19 21:59 20 mg Q12 WILY Administration Heparin Sodium (Porcine) 30 unit 06/25/19 14:00 06/30/19 22:27 Heparin Flush 10 Unit/Ml 5 Ml Disp.Syrg IV 07/25/19 13:59 30 unit Q8 WILY Administration Heparin Sodium (Porcine) 30 unit 06/25/19 11:42 06/30/19 15:23 Heparin Flush 10 Unit/Ml 5 Ml Disp.Syrg IV 07/25/19 11:41 30 unit .AFTER EACH USE PRN Administration AFTER EACH INTERMITTENT USE Metoprolol Succinate 25 mg 07/01/19 10:00 Toprol Xl 25 Mg Tab.Sr PO 07/31/19 09:59 Q12 WILY Morphine Sulfate 5 mg 06/30/19 12:31 06/30/19 22:26 Morphine 10 Mg/Ml Inj IV 07/07/19 12:30 5 mg Q4HP PRN Administration FOR PAIN SCALE 4-5 Paroxetine HCl 20 mg 06/30/19 22:00 06/30/19 22:27 Paxil 20 Mg Tablet PO 07/30/19 21:59 20 mg QHS WILY Administration Sacubitril/Valsartan 1 tab 06/25/19 18:00 06/30/19 18:09 Entresto 49 Mg/51 Mg Tablet PO 07/25/19 17:59 1 tab BID WILY Administration Sodium Chloride 2.5 ml 06/24/19 14:00 06/30/19 22:17 Saline Flush 2.5 Ml Monoject Prefil Syrin IV 07/24/19 13:59 Not Given Q8 WILY Sodium Chloride 10 ml 06/25/19 11:42 06/30/19 22:27 Nacl 0.9% Inj/Pf 10 Ml Sdv IV 07/25/19 11:41 10 ml .AFTER EACH USE PRN Administration AFTER EACH INTERMITTENT USE Temazepam 15 mg 06/30/19 12:32 Restoril 15 Mg Capsule PO 07/07/19 12:31 HSP PRN SLEEP OR INSOMNIA Discontinued Medications Generic Name Dose Route Start Last Admin Trade Name Freq PRN Reason Stop Dose Admin Acetaminophen 650 mg 06/27/19 21:26 Tylenol Soln 325 Mg/10.15 Ml Udcup NG 07/27/19 21:25 Q8HP PRN Fever >102.5 Fahrenheit Hydrocodone Bitart/Acetaminophen 15 ml 06/26/19 21:01 06/30/19 10:27 Lortab 7.5-325 Mg/15 Ml Oral Soln NG 07/03/19 21:00 15 ml Q4HP PRN Administration FOR PAIN Alteplase, Recombinant 2 mg 06/26/19 02:56 06/26/19 21:28 Activase Cathflo Inj 2 Mg (Cath Clearance) IV 06/26/19 02:57 Not Given NOW ONE Ampicillin Sodium/Sulbactam Sodium 3 gm 06/24/19 12:30 06/24/19 14:55 Unasyn Inj 3 Gm Vial IV 07/01/19 12:29 Not Given Q6 WILY Apixaban 2.5 mg 06/24/19 13:00 06/24/19 15:04 Eliquis 2.5 Mg Tablet PO 07/24/19 12:59 Not Given Q12 WILY Apixaban 2.5 mg 06/24/19 22:00 06/30/19 10:27 Eliquis 2.5 Mg Tablet NG 07/24/19 21:59 2.5 mg Q12 WILY Administration Buspirone HCl 10 mg 06/26/19 22:00 06/30/19 10:27 Buspar 10 Mg Tablet NG 07/26/19 21:59 10 mg Q12 WILY Administration Etomidate 30 mg 06/24/19 02:37 06/24/19 02:37 Amidate Inj/Pf 20 Mg/10 Ml Sdv IV 06/24/19 02:38 30 mg NOW ONE Administration Etomidate 20 mg 06/24/19 09:49 Amidate Inj/Pf 20 Mg/10 Ml Sdv IV 06/24/19 09:50 .STK-MED ONE Famotidine 20 mg 06/27/19 10:00 06/30/19 10:27 Pepcid 20 Mg Tablet NG 07/27/19 09:59 20 mg Q12 WILY Administration Furosemide 40 mg 06/24/19 08:45 06/24/19 14:44 Lasix Inj/Pf 40 Mg/4 Ml Sdv IV 06/24/19 08:46 Not Given NOW ONE Furosemide 40 mg 06/24/19 13:00 06/24/19 13:34 Lasix Inj/Pf 40 Mg/4 Ml Sdv IV 06/24/19 13:01 40 mg NOW ONE Administration Propofol 1,000 mg in 100 mls @ 4.091 mls/hr 06/24/19 02:49 06/25/19 15:29 Diprivan Rtu 1000 Mg/100 Ml Inf.Bottle IV 07/24/19 02:48 Infused CONTINUOUS PRN Titration THIS MED IS NOT "PRN" Protocol 5 MCG/KG/MIN Sodium Chloride 4,090 mls @ 1,022.5 mls/hr 06/24/19 04:50 06/24/19 05:03 Nacl 0.9% 1000 Ml Iv Soln 30 ml/kg infuse over 4 hr (4090 ml) 06/24/19 08:49 1,022.5 mls/hr IV Administration BOLUS ONE Ampicillin Sodium/Sulbactam 100 mls @ 100 mls/hr 06/24/19 15:00 06/29/19 11:30 Sodium 3 gm/ Sodium Chloride IV 07/01/19 14:59 Infused Q6A WILY Infusion Potassium Chloride/Water 20 meq in 50 mls @ 25 mls/hr 06/24/19 13:00 06/24/19 15:34 Potassium Chloride Kaden 20 Meq/50 Ml IV 06/24/19 16:59 25 mls/hr Q2H WILY 25 mls/hr Administration Potassium Chloride/Water 20 meq in 50 mls @ 25 mls/hr 06/25/19 11:45 06/25/19 16:21 Potassium Chloride Kaden 20 Meq/50 Ml IV 06/25/19 15:44 25 mls/hr Q2H WILY 25 mls/hr Administration Midazolam HCl Confirm 06/25/19 16:13 06/25/19 22:39 Versed Rtu 50 Mg/100 Ml Premix Bag Administered 06/25/19 16:14 Not Given Dose 50 mg in 100 mls @ ud .ROUTE .STK-MED ONE Midazolam HCl 50 mg in 100 mls @ 0 mls/hr 06/25/19 16:54 06/28/19 19:14 Versed Rtu 50 Mg/100 Ml Premix Bag IV 07/02/19 16:53 Infused CONTINUOUS PRN Titration THIS MED IS NOT "PRN" Protocol Titrate Magnesium Sulfate/Dextrose 1 gm in 100 mls @ 100 mls/hr 06/27/19 22:00 06/27/19 23:51 Magnesium Sulfate Rtu-D5w 1 Gm/100 Ml Premix IV 06/27/19 23:59 Infused Q1H WILY Infusion Pantoprazole Sodium 40 mg 06/26/19 10:00 06/26/19 10:45 Protonix Iv Inj 40 Mg Vial IV 07/02/19 09:59 40 mg DAILY WILY Administration Paroxetine HCl 20 mg 06/26/19 22:00 06/29/19 21:41 Paxil 20 Mg Tablet NG 07/26/19 21:59 20 mg QHS WILY Administration Piperacillin Sod/Tazobactam Sod 4.5 gm 06/24/19 04:50 06/24/19 05:31 Zosyn Inj 4.5 Gm Vial IV 06/24/19 04:51 4.5 gm IVBAG (ED) ONE Administration Potassium Chloride 40 meq 06/27/19 22:00 06/27/19 21:38 Potassium Chloride 20 Meq Packet NG 06/27/19 22:01 40 meq NOW ONE Administration Propofol Confirm 06/24/19 02:52 06/24/19 05:02 Diprivan Inj 200 Mg/20 Ml Vial Administered 06/24/19 02:53 Not Given Dose 200 mg IV .STK-MED ONE Propofol 50 mg 06/24/19 03:33 06/24/19 03:33 Diprivan Inj 200 Mg/20 Ml Vial IV 06/24/19 03:34 50 mg NOW ONE Administration Propofol 50 mg 06/24/19 02:52 06/24/19 02:42 Diprivan Inj 200 Mg/20 Ml Vial IV 06/24/19 02:53 50 mg NOW ONE Administration Propofol 50 mg 06/24/19 02:53 06/24/19 02:53 Diprivan Inj 200 Mg/20 Ml Vial IV 06/24/19 02:54 50 mg NOW ONE Administration Rocuronium [place] 10 mg 06/24/19 02:51 06/24/19 02:51 Zemuron Inj 50 Mg/5 Ml Vial IV 06/24/19 02:52 10 mg NOW ONE Administration Rocuronium [place] 50 mg 06/24/19 09:49 Zemuron Inj 50 Mg/5 Ml Vial IV 06/24/19 09:50 .STK-MED ONE Succinylcholine Chloride 120 mg 06/24/19 02:37 06/24/19 02:37 Anectine Inj 200 Mg/10 Ml Vial IV 06/24/19 02:38 120 mg NOW ONE Administration Succinylcholine Chloride 200 mg 06/24/19 09:49 Anectine Inj 200 Mg/10 Ml Vial .ROUTE 06/24/19 09:50 .STK-MED ONE Social History Information Source: Patient Lives with: [facility] Smoking Status: Former Smoker - Currently vapes. Frequency of Alcohol Use: Occasional Hx Recreational Drug Use: Yes Drugs: Marijuana Hx Prescription Drug Abuse: No - Advance Directive Resuscitation Status: Full Code Family History Family History: CAD, CVA, DM, Hypertension, Malignancy, Other - Kidney disease Parental Family History Reviewed: Yes Children Family History Reviewed: Yes Sibling(s) Family History Reviewed.: Yes,. HOME MEDICATION Alprazolam [Xanax 0.5 mg Tablet] 0.5 mg PO Q6HP PRN 02/08/19 Atorvastatin Calcium [Lipitor 80 mg Tablet] 80 mg PO QHS 02/08/19 Buspirone HCl [Buspar 10 mg Tablet] 10 mg PO BID 02/08/19 Paroxetine HCl [Paxil 20 mg Tablet] 20 mg PO DAILY 02/08/19 Oxycodone HCl/Acetaminophen [Percocet 7.5-325 mg Tablet] 1 each PO Q6HP PRN 06/24/19 . The patient was supposed to be on Toprol-XL and Entresto. But is not listed on her home medication. Resuscitation Status: The Patient Is a Full Code. Patient's daughter Is Her Surrogate Healthcare Decision Maker. PHYSICAL EXAMINATION: The patient is moderate to severely obese. In no acute distress. Selected Entries 06/30/19 12:00 Temperature 98.4 F Temperature Oral Source Pulse Rate 71 Blood Pressure 112/82 [Upper Arm] Blood Pressure 92 Mean [Upper Arm ] Blood Pressure Supine Position [Upper Arm] O2 Sat by Pulse 97 Oximetry Oxygen Delivery Nasal Cannula Method ( includes room air) Oxygen Flow 4.0 Rate HEAD: Is atraumatic normocephalic. EYES: Pupils are equal round regular reactive to light. HEENT is negative. SKIN: There is no skin rashes or skin lesions. There is no particular ecchymosis. NECK: Is supple. There is mild JVD present. Carotids are equal there is no bruits. There is no lymphadenopathy. There is no goiter. There is no accessory muscle respiration use. Trachea central. LUNGS: . There is diminished air entry. On percussion there is hyperresonance. On palpation there is no chest wall tenderness, dry crackles at both bases, and also some fine rales of CHF. HEART: S1-S2 is heard. There is no S3 gallop. There is no S4 gallop. There is systolic murmur mitral regurgitation tricuspid regurgitation present. There is no aortic stenosis murmur. There is no aortic insufficiency murmur. There is no rub. ABDOMEN: Is obese. Nontender. There is no hepatosplenomegaly. Bowel sounds are well heard. There is no rebound guarding or rigidity. EXTREMITIES: Femorals are deep. Femorals are diminished. There is no femoral bruits. There is decreased leg pulses. There is mild pedal edema. MIGRATION AGENT: the patient is conscious awake alert oriented x3 with no focal deficits. PSYCHIATRIC: The patient judgment insight are intact. She does not appear to be agitated or anxious. MUSCULOSKELETAL: There is swelling and tenderness of the right knee with increased warmth. Suspect joint effusion. Will check knee x-ray. Labs- Entire Visit 06/24/19 06/24/19 06/24/19 02:34 04:00 04:00 WBC RBC Hgb Hct MCV MCH MCHC RDW Plt Count Lymph % (Auto) Bertie % (Auto) Eos % (Auto) Baso % (Auto) Absolute Neuts (auto) Absolute Lymphs (auto) Absolute Monos (auto) Absolute Eos (auto) Absolute Basos (auto) Seg Neutrophils % ESR PT 18.4 H INR 1.51 APTT Carbonic Acid HCO3/H2CO3 Ratio ABG pH ABG pCO2 ABG pO2 ABG HCO3 ABG Total CO2 ABG O2 Saturation ABG Base Excess FiO2 Sodium Potassium Chloride Carbon Dioxide Anion Gap BUN Creatinine Est GFR ( Amer) Est GFR (Non-Af Amer) Est GFR (MDRD) Non-Af Glucose POC Glucose 335 H Lactic Acid Calcium Phosphorus Magnesium Total Bilirubin Direct Bilirubin Neonat Total Bilirubin Neonat Direct Bilirubin Neonat Indirect Bili AST ALT Alkaline Phosphatase Troponin I Cancelled NT-Pro-B Natriuret Pep Total Protein Albumin Triglycerides EGFR Urine Color Urine Appearance Urine pH Ur Specific Sunflower Urine Protein Urine Glucose (UA) Urine Ketones Urine Blood Urine Nitrite (Reflex) Urine Bilirubin Urine Urobilinogen Leukocyte Esterase Rfl Urine RBC (Auto) U Hyaline Cast (Auto) Urine Bacteria (Auto) Urine WBC (Reflex) Urine WBC Clumps Squamous Epi Cells Auto Urine Mucus (Auto) Urine Ascorbic Acid COVID-19 Source COVID-19 ([facility]) 06/24/19 06/24/19 06/24/19 04:00 04:00 04:00 WBC 6.9 RBC 3.18 L Hgb 10.0 L Hct 30.4 L MCV 96 MCH 31.4 MCHC 32.8 RDW 17.6 H Plt Count 268 Lymph % (Auto) 9.6 L Bertie % (Auto) 3.0 Eos % (Auto) 0.1 Baso % (Auto) 0.7 Absolute Neuts (auto) 6.0 Absolute Lymphs (auto) 0.7 Absolute Monos (auto) 0.2 Absolute Eos (auto) 0.0 Absolute Basos (auto) 0.0 Seg Neutrophils % 86.6 H ESR PT INR APTT Carbonic Acid HCO3/H2CO3 Ratio ABG pH ABG pCO2 ABG pO2 ABG HCO3 ABG Total CO2 ABG O2 Saturation ABG Base Excess FiO2 Sodium Cancelled Potassium Cancelled Chloride Cancelled Carbon Dioxide Cancelled Anion Gap Cancelled BUN Cancelled Creatinine Cancelled Est GFR ( Amer) Cancelled Est GFR (Non-Af Amer) Cancelled Est GFR (MDRD) Non-Af Cancelled Glucose Cancelled POC Glucose Lactic Acid 4.7 H Calcium Cancelled Phosphorus Magnesium Total Bilirubin Cancelled Direct Bilirubin Cancelled Neonat Total Bilirubin Cancelled Neonat Direct Bilirubin Cancelled Neonat Indirect Bili Cancelled AST Cancelled ALT Cancelled Alkaline Phosphatase Cancelled Troponin I NT-Pro-B Natriuret Pep Total Protein Cancelled Albumin Cancelled Triglycerides EGFR Cancelled Urine Color Urine Appearance Urine pH Ur Specific Sunflower Urine Protein Urine Glucose (UA) Urine Ketones Urine Blood Urine Nitrite (Reflex) Urine Bilirubin Urine Urobilinogen Leukocyte Esterase Rfl Urine RBC (Auto) U Hyaline Cast (Auto) Urine Bacteria (Auto) Urine WBC (Reflex) Urine WBC Clumps Squamous Epi Cells Auto Urine Mucus (Auto) Urine Ascorbic Acid COVID-19 Source COVID-19 ([facility]) 06/24/19 06/24/19 06/24/19 04:00 04:14 04:58 WBC RBC Hgb Hct MCV MCH MCHC RDW Plt Count Lymph % (Auto) Bertie % (Auto) Eos % (Auto) Baso % (Auto) Absolute Neuts (auto) Absolute Lymphs (auto) Absolute Monos (auto) Absolute Eos (auto) Absolute Basos (auto) Seg Neutrophils % ESR PT INR APTT Carbonic Acid 1.63 H HCO3/H2CO3 Ratio 14:1 ABG pH 7.26 L ABG pCO2 54.3 H ABG pO2 91.9 ABG HCO3 23.8 ABG Total CO2 25.4 H ABG O2 Saturation 95.8 ABG Base Excess -3.6 FiO2 80% Sodium 139.9 Potassium 3.2 L Chloride 104 Carbon Dioxide 29 Anion Gap 7 BUN 11 Creatinine 1.67 H Est GFR ( Amer) 40 L Est GFR (Non-Af Amer) Est GFR (MDRD) Non-Af 33 L Glucose 112 H POC Glucose Lactic Acid Calcium 8.7 Phosphorus Magnesium Total Bilirubin 2.1 H Direct Bilirubin 0.4 Neonat Total Bilirubin Not Reportable Neonat Direct Bilirubin Not Reportable Neonat Indirect Bili Not Reportable AST 27 ALT 12 Alkaline Phosphatase 61 Troponin I NT-Pro-B Natriuret Pep Total Protein 6.5 Albumin 3.5 Triglycerides EGFR Urine Color MARKO Urine Appearance CLOUDY Urine pH 6.0 Ur Specific Sunflower 1.015 Urine Protein >=500 H Urine Glucose (UA) 50 H Urine Ketones NEGATIVE Urine Blood SMALL H Urine Nitrite (Reflex) NEGATIVE Urine Bilirubin NEGATIVE Urine Urobilinogen 2.0 H Leukocyte Esterase Rfl NEGATIVE Urine RBC (Auto) 9 U Hyaline Cast (Auto) 20 Urine Bacteria (Auto) TRACE Urine WBC (Reflex) 19 Urine WBC Clumps FEW Squamous Epi Cells Auto 3 Urine Mucus (Auto) FEW Urine Ascorbic Acid NEGATIVE COVID-19 Source COVID-19 ([facility]) 06/24/19 06/24/19 06/24/19 04:58 04:58 04:58 WBC RBC Hgb Hct MCV MCH MCHC RDW Plt Count Lymph % (Auto) Bertie % (Auto) Eos % (Auto) Baso % (Auto) Absolute Neuts (auto) Absolute Lymphs (auto) Absolute Monos (auto) Absolute Eos (auto) Absolute Basos (auto) Seg Neutrophils % ESR PT INR APTT Carbonic Acid HCO3/H2CO3 Ratio ABG pH ABG pCO2 ABG pO2 ABG HCO3 ABG Total CO2 ABG O2 Saturation ABG Base Excess FiO2 Sodium Potassium Chloride Carbon Dioxide Anion Gap BUN Creatinine Est GFR ( Amer) Est GFR (Non-Af Amer) Est GFR (MDRD) Non-Af Glucose POC Glucose Lactic Acid Calcium Phosphorus Magnesium Total Bilirubin Direct Bilirubin Neonat Total Bilirubin Neonat Direct Bilirubin Neonat Indirect Bili AST ALT Alkaline Phosphatase Troponin I 0.084 NT-Pro-B Natriuret Pep 76734 H Total Protein Albumin Triglycerides 302 H EGFR Urine Color Urine Appearance Urine pH Ur Specific Sunflower Urine Protein Urine Glucose (UA) Urine Ketones Urine Blood Urine Nitrite (Reflex) Urine Bilirubin Urine Urobilinogen Leukocyte Esterase Rfl Urine RBC (Auto) U Hyaline Cast (Auto) Urine Bacteria (Auto) Urine WBC (Reflex) Urine WBC Clumps Squamous Epi Cells Auto Urine Mucus (Auto) Urine Ascorbic Acid COVID-19 Source COVID-19 ([facility]) 06/24/19 06/24/19 06/24/19 07:21 07:25 10:48 WBC RBC Hgb Hct MCV MCH MCHC RDW Plt Count Lymph % (Auto) Bertie % (Auto) Eos % (Auto) Baso % (Auto) Absolute Neuts (auto) Absolute Lymphs (auto) Absolute Monos (auto) Absolute Eos (auto) Absolute Basos (auto) Seg Neutrophils % ESR PT INR APTT Carbonic Acid HCO3/H2CO3 Ratio ABG pH ABG pCO2 ABG pO2 ABG HCO3 ABG Total CO2 ABG O2 Saturation ABG Base Excess FiO2 Sodium Potassium Chloride Carbon Dioxide Anion Gap BUN Creatinine Est GFR ( Amer) Est GFR (Non-Af Amer) Est GFR (MDRD) Non-Af Glucose POC Glucose Lactic Acid 0.8 0.7 Calcium Phosphorus Magnesium Total Bilirubin Direct Bilirubin Neonat Total Bilirubin Neonat Direct Bilirubin Neonat Indirect Bili AST ALT Alkaline Phosphatase Troponin I NT-Pro-B Natriuret Pep Total Protein Albumin Triglycerides EGFR Urine Color Urine Appearance Urine pH Ur Specific Sunflower Urine Protein Urine Glucose (UA) Urine Ketones Urine Blood Urine Nitrite (Reflex) Urine Bilirubin Urine Urobilinogen Leukocyte Esterase Rfl Urine RBC (Auto) U Hyaline Cast (Auto) Urine Bacteria (Auto) Urine WBC (Reflex) Urine WBC Clumps Squamous Epi Cells Auto Urine Mucus (Auto) Urine Ascorbic Acid COVID-19 Source NASOPHARYNGEAL COVID-19 ([facility]UV) NOT DETECTED 06/24/19 06/24/19 06/25/19 13:30 13:56 05:00 WBC 7.1 RBC 3.09 L Hgb 9.5 L Hct 28.4 L MCV 92 D MCH 30.7 MCHC 33.3 RDW 17.3 H Plt Count 216 Lymph % (Auto) 11.6 L Bertie % (Auto) 7.2 Eos % (Auto) 0.2 Baso % (Auto) 0.5 Absolute Neuts (auto) 5.7 Absolute Lymphs (auto) 0.8 Absolute Monos (auto) 0.5 Absolute Eos (auto) 0.0 Absolute Basos (auto) 0.0 Seg Neutrophils % 80.5 H ESR PT INR APTT Carbonic Acid 1.12 HCO3/H2CO3 Ratio 21:1 ABG pH 7.44 ABG pCO2 37.3 ABG pO2 107.6 H ABG HCO3 24.5 H ABG Total CO2 25.7 H ABG O2 Saturation 98.1 H ABG Base Excess 0.5 FiO2 60% Sodium Potassium Chloride Carbon Dioxide Anion Gap BUN Creatinine Est GFR ( Amer) Est GFR (Non-Af Amer) Est GFR (MDRD) Non-Af Glucose POC Glucose Lactic Acid Calcium Phosphorus Magnesium Total Bilirubin Direct Bilirubin Neonat Total Bilirubin Neonat Direct Bilirubin Neonat Indirect Bili AST ALT Alkaline Phosphatase Troponin I NT-Pro-B Natriuret Pep 8010 H Total Protein Albumin Triglycerides EGFR Urine Color Urine Appearance Urine pH Ur Specific Sunflower Urine Protein Urine Glucose (UA) Urine Ketones Urine Blood Urine Nitrite (Reflex) Urine Bilirubin Urine Urobilinogen Leukocyte Esterase Rfl Urine RBC (Auto) U Hyaline Cast (Auto) Urine Bacteria (Auto) Urine WBC (Reflex) Urine WBC Clumps Squamous Epi Cells Auto Urine Mucus (Auto) Urine Ascorbic Acid COVID-19 Source COVID-19 ([facility]) 06/25/19 06/25/19 06/25/19 05:00 05:00 05:00 WBC RBC Hgb Hct MCV MCH MCHC RDW Plt Count Lymph % (Auto) Bertie % (Auto) Eos % (Auto) Baso % (Auto) Absolute Neuts (auto) Absolute Lymphs (auto) Absolute Monos (auto) Absolute Eos (auto) Absolute Basos (auto) Seg Neutrophils % ESR PT 19.1 H INR 1.59 APTT 34.8 Carbonic Acid 1.02 L HCO3/H2CO3 Ratio 22:1 ABG pH 7.45 ABG pCO2 33.9 L ABG pO2 57.8 L ABG HCO3 22.9 ABG Total CO2 24.0 ABG O2 Saturation 91.5 L ABG Base Excess -0.7 FiO2 45% Sodium 139.6 Potassium 3.4 L Chloride 105 Carbon Dioxide 27 Anion Gap 8 BUN 10 Creatinine 1.43 H Est GFR ( Amer) 48 L Est GFR (Non-Af Amer) Est GFR (MDRD) Non-Af 39 L Glucose 99 POC Glucose Lactic Acid Calcium 8.8 Phosphorus Magnesium Total Bilirubin 1.6 H Direct Bilirubin 0.4 Neonat Total Bilirubin Not Reportable Neonat Direct Bilirubin Not Reportable Neonat Indirect Bili Not Reportable AST 23 ALT 11 Alkaline Phosphatase 76 Troponin I NT-Pro-B Natriuret Pep Total Protein 6.5 Albumin 3.5 Triglycerides EGFR Urine Color Urine Appearance Urine pH Ur Specific Sunflower Urine Protein Urine Glucose (UA) Urine Ketones Urine Blood Urine Nitrite (Reflex) Urine Bilirubin Urine Urobilinogen Leukocyte Esterase Rfl Urine RBC (Auto) U Hyaline Cast (Auto) Urine Bacteria (Auto) Urine WBC (Reflex) Urine WBC Clumps Squamous Epi Cells Auto Urine Mucus (Auto) Urine Ascorbic Acid COVID-19 Source COVID-19 ([facility]) 06/26/19 06/26/19 06/26/19 02:53 02:53 02:53 WBC 6.3 RBC 3.02 L Hgb 9.3 L Hct 27.7 L MCV 92 MCH 30.9 MCHC 33.7 RDW 17.1 H Plt Count 208 Lymph % (Auto) 9.6 L Bertie % (Auto) 8.5 Eos % (Auto) 0.1 Baso % (Auto) 0.5 Absolute Neuts (auto) 5.1 Absolute Lymphs (auto) 0.6 Absolute Monos (auto) 0.5 Absolute Eos (auto) 0.0 Absolute Basos (auto) 0.0 Seg Neutrophils % 81.3 H ESR PT 19.4 H INR 1.62 APTT 38.0 H Carbonic Acid HCO3/H2CO3 Ratio ABG pH ABG pCO2 ABG pO2 ABG HCO3 ABG Total CO2 ABG O2 Saturation ABG Base Excess FiO2 Sodium 139.0 Potassium 3.7 Chloride 104 Carbon Dioxide 27 Anion Gap 8 BUN 10 Creatinine 1.15 Est GFR ( Amer) > 60 Est GFR (Non-Af Amer) Est GFR (MDRD) Non-Af 51 L Glucose 112 H POC Glucose Lactic Acid Calcium 9.0 Phosphorus Magnesium Total Bilirubin 2.3 H Direct Bilirubin 0.5 H Neonat Total Bilirubin Not Reportable Neonat Direct Bilirubin Not Reportable Neonat Indirect Bili Not Reportable AST 20 ALT 10 Alkaline Phosphatase 71 Troponin I NT-Pro-B Natriuret Pep Total Protein 6.6 Albumin 3.5 Triglycerides EGFR Urine Color Urine Appearance Urine pH Ur Specific Sunflower Urine Protein Urine Glucose (UA) Urine Ketones Urine Blood Urine Nitrite (Reflex) Urine Bilirubin Urine Urobilinogen Leukocyte Esterase Rfl Urine RBC (Auto) U Hyaline Cast (Auto) Urine Bacteria (Auto) Urine WBC (Reflex) Urine WBC Clumps Squamous Epi Cells Auto Urine Mucus (Auto) Urine Ascorbic Acid COVID-19 Source COVID-19 ([facility]) 06/27/19 06/27/19 06/27/19 04:10 04:10 04:10 WBC 4.6 RBC 3.11 L Hgb 9.4 L Hct 28.4 L MCV 91 MCH 30.3 MCHC 33.2 RDW 17.0 H Plt Count 210 Lymph % (Auto) 13.3 Bertie % (Auto) 9.2 Eos % (Auto) 1.9 Baso % (Auto) 0.9 Absolute Neuts (auto) 3.4 Absolute Lymphs (auto) 0.6 Absolute Monos (auto) 0.4 Absolute Eos (auto) 0.1 Absolute Basos (auto) 0.0 Seg Neutrophils % 74.7 ESR PT 16.8 H INR 1.35 APTT 36.1 H Carbonic Acid HCO3/H2CO3 Ratio ABG pH ABG pCO2 ABG pO2 ABG HCO3 ABG Total CO2 ABG O2 Saturation ABG Base Excess FiO2 Sodium 140.2 Potassium 3.3 L Chloride 105 Carbon Dioxide 27 Anion Gap 8 BUN 9 Creatinine 1.05 Est GFR ( Amer) > 60 Est GFR (Non-Af Amer) Est GFR (MDRD) Non-Af 56 L Glucose 85 POC Glucose Lactic Acid Calcium 8.6 Phosphorus 3.8 Magnesium 1.8 Total Bilirubin 1.5 H Direct Bilirubin 0.3 Neonat Total Bilirubin Not Reportable Neonat Direct Bilirubin Not Reportable Neonat Indirect Bili Not Reportable AST 15 ALT 8 Alkaline Phosphatase 65 Troponin I NT-Pro-B Natriuret Pep Total Protein 6.0 L Albumin 3.0 L Triglycerides 171 H EGFR Urine Color Urine Appearance Urine pH Ur Specific Sunflower Urine Protein Urine Glucose (UA) Urine Ketones Urine Blood Urine Nitrite (Reflex) Urine Bilirubin Urine Urobilinogen Leukocyte Esterase Rfl Urine RBC (Auto) U Hyaline Cast (Auto) Urine Bacteria (Auto) Urine WBC (Reflex) Urine WBC Clumps Squamous Epi Cells Auto Urine Mucus (Auto) Urine Ascorbic Acid COVID-19 Source COVID-19 ([facility]) 06/27/19 06/27/19 06/28/19 15:30 15:38 04:11 WBC RBC Hgb Hct MCV MCH MCHC RDW Plt Count Lymph % (Auto) Bertie % (Auto) Eos % (Auto) Baso % (Auto) Absolute Neuts (auto) Absolute Lymphs (auto) Absolute Monos (auto) Absolute Eos (auto) Absolute Basos (auto) Seg Neutrophils % ESR PT INR APTT Carbonic Acid 1.10 HCO3/H2CO3 Ratio 23:1 ABG pH 7.47 H ABG pCO2 36.7 ABG pO2 43.7 L ABG HCO3 25.9 H ABG Total CO2 27.0 H ABG O2 Saturation 82.7 L ABG Base Excess 2.2 FiO2 30% Sodium 140.6 Potassium 3.8 Chloride 106 Carbon Dioxide 28 Anion Gap 7 BUN 8 Creatinine 1.13 Est GFR ( Amer) > 60 Est GFR (Non-Af Amer) Est GFR (MDRD) Non-Af 52 L Glucose 131 H POC Glucose Lactic Acid Calcium 8.6 Phosphorus Magnesium Total Bilirubin Direct Bilirubin Neonat Total Bilirubin Neonat Direct Bilirubin Neonat Indirect Bili AST ALT Alkaline Phosphatase Troponin I NT-Pro-B Natriuret Pep 1340 H Total Protein Albumin Triglycerides EGFR Urine Color Urine Appearance Urine pH Ur Specific Sunflower Urine Protein Urine Glucose (UA) Urine Ketones Urine Blood Urine Nitrite (Reflex) Urine Bilirubin Urine Urobilinogen Leukocyte Esterase Rfl Urine RBC (Auto) U Hyaline Cast (Auto) Urine Bacteria (Auto) Urine WBC (Reflex) Urine WBC Clumps Squamous Epi Cells Auto Urine Mucus (Auto) Urine Ascorbic Acid COVID-19 Source COVID-19 ([facility]) 06/28/19 06/29/19 06/30/19 04:11 05:00 13:20 WBC 5.0 RBC 3.12 L Hgb 9.6 L Hct 28.7 L MCV 92 MCH 30.7 MCHC 33.5 RDW 16.9 H Plt Count 239 Lymph % (Auto) 16.2 Bertie % (Auto) 12.2 Eos % (Auto) 0.7 Baso % (Auto) 1.0 Absolute Neuts (auto) 3.5 Absolute Lymphs (auto) 0.8 Absolute Monos (auto) 0.6 Absolute Eos (auto) 0.0 Absolute Basos (auto) 0.1 Seg Neutrophils % 69.9 ESR PT INR APTT Carbonic Acid HCO3/H2CO3 Ratio ABG pH ABG pCO2 ABG pO2 ABG HCO3 ABG Total CO2 ABG O2 Saturation ABG Base Excess FiO2 Sodium 141.8 139.4 Potassium 3.8 3.9 Chloride 107 102 Carbon Dioxide 28 29 Anion Gap 7 8 BUN 6 L 7 Creatinine 1.07 1.12 Est GFR ( Amer) > 60 > 60 Est GFR (Non-Af Amer) Est GFR (MDRD) Non-Af 55 L 52 L Glucose 95 115 H POC Glucose Lactic Acid Calcium 8.6 9.0 Phosphorus Magnesium 2.2 2.2 Total Bilirubin Direct Bilirubin Neonat Total Bilirubin Neonat Direct Bilirubin Neonat Indirect Bili AST ALT Alkaline Phosphatase Troponin I NT-Pro-B Natriuret Pep Total Protein Albumin Triglycerides EGFR Urine Color Urine Appearance Urine pH Ur Specific Sunflower Urine Protein Urine Glucose (UA) Urine Ketones Urine Blood Urine Nitrite (Reflex) Urine Bilirubin Urine Urobilinogen Leukocyte Esterase Rfl Urine RBC (Auto) U Hyaline Cast (Auto) Urine Bacteria (Auto) Urine WBC (Reflex) Urine WBC Clumps Squamous Epi Cells Auto Urine Mucus (Auto) Urine Ascorbic Acid COVID-19 Source COVID-19 ([facility]) 06/30/19 13:20 WBC 4.1 RBC 3.49 L Hgb 10.6 L Hct 32.0 L MCV 92 MCH 30.4 MCHC 33.1 RDW 17.0 H Plt Count 307 Lymph % (Auto) 29.4 Bertie % (Auto) 10.3 Eos % (Auto) 1.6 Baso % (Auto) 1.2 Absolute Neuts (auto) 2.3 Absolute Lymphs (auto) 1.2 Absolute Monos (auto) 0.4 Absolute Eos (auto) 0.1 Absolute Basos (auto) 0.0 Seg Neutrophils % 57.5 ESR 77 H PT INR APTT Carbonic Acid HCO3/H2CO3 Ratio ABG pH ABG pCO2 ABG pO2 ABG HCO3 ABG Total CO2 ABG O2 Saturation ABG Base Excess FiO2 Sodium Potassium Chloride Carbon Dioxide Anion Gap BUN Creatinine Est GFR ( Amer) Est GFR (Non-Af Amer) Est GFR (MDRD) Non-Af Glucose POC Glucose Lactic Acid Calcium Phosphorus Magnesium Total Bilirubin Direct Bilirubin Neonat Total Bilirubin Neonat Direct Bilirubin Neonat Indirect Bili AST ALT Alkaline Phosphatase Troponin I NT-Pro-B Natriuret Pep Total Protein Albumin Triglycerides EGFR Urine Color Urine Appearance Urine pH Ur Specific Sunflower Urine Protein Urine Glucose (UA) Urine Ketones Urine Blood Urine Nitrite (Reflex) Urine Bilirubin Urine Urobilinogen Leukocyte Esterase Rfl Urine RBC (Auto) U Hyaline Cast (Auto) Urine Bacteria (Auto) Urine WBC (Reflex) Urine WBC Clumps Squamous Epi Cells Auto Urine Mucus (Auto) Urine Ascorbic Acid COVID-19 Source COVID-19 ([facility]) Chest X-Ray 06/24/19 00:00 IMPRESSION: 1. NG tube terminates in the distal esophagus near the GE junction, recommend advancement as above. 2. New ET tube appears in good position. 3. Otherwise no significant change. Chest X-Ray 06/24/19 11:18 IMPRESSION: STABLE APPEARANCE OF THE CHEST. SUPPORT DEVICES UNCHANGED. Chest X-Ray 06/28/19 00:00 IMPRESSION: 1. Stable appearance of the chest. Knee X-Ray 06/30/19 00:00 IMPRESSION: Large joint effusion. Osteopenia and DJD. IMPRESSION/RECOMMENDATION: 1. Acute on chronic respiratory failure. This is secondary to pneumonia, obstructive sleep apnea, and acute on chronic systolic heart failure: Secondary atrial flutter with rapid ventricular response. 2. Atrial flutter with rapid ventricle response. On interrogation of the AICD the patient at 1:57 AM on 06/24/2019 when the patient was cardioverted by EMT she was in atrial flutter. With a rapid ventricular response of 189. Since the patient was in atrial flutter with the AICD did not fire the AICD is functioning normally. Unfortunately to prevent the A. fib flutter recurrence cannot use amiodarone since the patient has a history of amiodarone toxicity. Hence would recommend starting the patient back on beta-rip. Note patient has a history of paroxysmal atrial fibrillation/flutter. Note on interrogation of the AICD it is known that the patient has several episodes of atrial flutter/fibrillation since June 18. 1 day she was in that rhythm for at least 24 hours. 3. Acute on chronic systolic heart failure. Patient with LV ejection fraction of 25%. Will restart beta-blockers and Entresto. Continue diuretics. Continue Entresto 4. Right knee swelling and pain: Probably the patient has a joint effusion. Would recommend that this is not secondary to bleeding to the joint. 5. History of MRSA pneumonia: The patient had a course of antibiotics. At present chest x-ray compatible with bibasilar pneumonia. This raises the possibility of recurrent pneumonias. Would recommend getting his swallow study to make sure that the patient is not aspirating. This is especially when the patient has respiratory failure causing hypercapnia and somnolence since. 6. History of amiodarone toxicity. Would recommend avoiding amiodarone 7. Acute renal failure. Although it is mentioned in the chart that the patient has chronic renal failure the patient has episodic acute renal failure with the renal function going back to normal. At present the patient's GFR is greater than 60. 8. Cardiomyopathy with severely reduced LV ejection fraction. Continue beta- rip and Entresto and Lasix. 9. COPD. At present no evidence of acute exacerbation of COPD. 10. History of ventricular tachycardia, The patient has an AICD placed. If there is recurrence of ventricular tachycardia or major ventricular ectopic activity then would start the patient on small dose of sotalol. Would avoid amiodarone. 11. Hypertension: Blood pressure well controlled, on current medications. 12. Coronary artery disease: History of TN and history of coronary bypass graft surgery. No evidence of acute coronary syndrome/non-ST ST elevation TN this admission. 13. Obstructive sleep apnea. Note patient has been noncompliant with CPAP. Most likely has significant pulmonary hypertension. 14. AICD placement: Note the patient's basal rate is around 60 bpm. If the patient's heart failure continues then would recommend increasing the basal heart rate to 80 bpm to help combat the heart failure along with diuretics. Medications reviewed. Medical management and medication regimen have been discussed with attending physician in detail. Medical decision making is of high complexity. 60 minutes spent as patient more than 50% time spent in direct patient care. Will follow
[2019-06-30] MEDS: BUSPIRONE HCL 10 MG TABLET PO SCH (22:26)
[2019-06-30] MEDS: ATORVASTATIN CALCIUM 80 MG TABLET PO SCH (22:26)
[2019-06-30] MEDS: APIXABAN 2.5 MG TABLET PO SCH (22:26)
[2019-06-30] MEDS: PAROXETINE HCL 20 MG TABLET PO SCH (22:27)
[2019-06-30] MEDS: FAMOTIDINE 20 MG TABLET PO SCH (22:27)
[2019-07-01] MEDS: TEMAZEPAM 15 MG CAPSULE PO PRN ×2 (00:50→22:46)
[2019-07-01] MEDS: HYDROCODONE/ACETAMINOPHEN 10-325 MG TABLET PO PRN ×2 (00:50→16:18)
[2019-07-01] MEDS: MORPHINE SULFATE 10 MG/ML INJ IV PRN ×5 (04:39→22:22)
[2019-07-01 05:32] LABS: ABSOLUTE BASOPHILS # (AUTO) 0.1 10^3/uL (0.0-0.2); ABSOLUTE EOSINOPHILS # (AUTO) 0.1 10^3/uL (0.0-0.6); ABSOLUTE LYMPHOCYTES (AUTO) 1.3 10^3/uL (0.5-4.7); ABSOLUTE MONOCYTES (AUTO) 0.5 10^3/uL (0.1-1.4); ABSOLUTE NEUT (AUTO) 2.8 10^3/uL (1.7-8.2); BASOPHILS % (AUTO) 1.2 % (0-2); EOSINOPHILS % (AUTO) 2.3 % (0-6); HEMATOCRIT 32.1 % (36.0-47.0); HEMOGLOBIN 10.5 g/dL (12.0-15.5); LYMPHOCYTES % (AUTO) 26.4 % (13-45); MEAN CORPUSCULAR HEMOGLOBIN 30.3 pg (27.0-33.4); MEAN CORPUSCULAR HGB CONC 32.9 g/dL (32.0-36.0); MEAN CORPUSCULAR VOLUME 92 fl (80-97); MONOCYTES % (AUTO) 11.6 % (3-13); PLATELET COUNT 312 10^3/uL (150-450); RED BLOOD COUNT 3.48 10^6/uL (3.72-5.28); RED CELL DISTRIBUTION WIDTH 17.1 % (11.5-14.0); SEGMENTED NEUTROPHILS % (AUTO) 58.5 % (42-78); TOTAL CELLS COUNTED % (AUTO) 100 %; WHITE BLOOD COUNT 4.7 10^3/uL (4.0-10.5)
[2019-07-01 05:52] LABS: ANION GAP 5 (5-19); BLOOD UREA NITROGEN 6 mg/dL (7-20); CARBON DIOXIDE 32 mmol/L (22-30); CHLORIDE 104 mmol/L (98-107); GLUCOSE 98 mg/dL (75-110); POTASSIUM 4.1 mmol/L (3.6-5.0)
[2019-07-01] MEDS: FAMOTIDINE 20 MG TABLET PO SCH ×2 (09:22→21:13)
[2019-07-01] MEDS: METOPROLOL SUCCINATE 25 MG TAB.SR.24H PO SCH ×2 (09:22→21:13)
[2019-07-01] MEDS: APIXABAN 2.5 MG TABLET PO SCH ×2 (09:22→21:13)
[2019-07-01] MEDS: BUSPIRONE HCL 10 MG TABLET PO SCH ×2 (09:22→21:13)
[2019-07-01] MEDS: SACUBITRIL/VALSARTAN 49 MG/51 MG TABLET PO SCH ×2 (11:38→18:58)
--- NOTE | 2019-07-01 14:18 | PDOC PROGRESS REPORT ---
Subjective Progress Note for:: 07/01/19 Subjective:: The patient's right knee is still quite painful and now she is getting some edema in the right foot. She has been on nasal cannula all day. She has been coughing up green sputum as well. Reason For Visit: ACUTE HYPOXIC RESPIRATORY FAILURE Physical Exam Vital Signs: Temp Pulse Resp BP Pulse Ox 98.0 F 56 L 16 100/60 99 07/01/19 12:00 07/01/19 12:00 07/01/19 12:00 07/01/19 12:00 07/01/19 12:00 Intake & Output 06/30/19 07/01/19 07/02/19 06:59 06:59 06:59 Intake Total 340 510 Output Total 795 600 Balance -455 -90 Weight 108.8 kg 105.4 kg General appearance: PRESENT: cooperative, mild distress, well-developed, well- nourished Head exam: PRESENT: atraumatic, normocephalic Respiratory exam: PRESENT: rhonchi - Left base, symmetrical, unlabored. ABSENT: prolonged expiratory phas, rales, tachypnea, wheezes Cardiovascular exam: PRESENT: RRR, +S1, +S2 GI/Abdominal exam: PRESENT: normal bowel sounds, soft. ABSENT: distended, tenderness Rectal exam: PRESENT: deferred Extremities exam: PRESENT: joint swelling - The right knee is still swollen and very tender. There is no edema in the lower leg., +1 edema - Right leg Neurological exam: PRESENT: alert, awake, oriented to person, oriented to place, oriented to time, oriented to situation, CN II-XII grossly intact. ABSENT: altered Psychiatric exam: PRESENT: flat affect. ABSENT: agitated, anxious Focused psych exam: ABSENT: delusional, paranoid, restlessness Results Laboratory Results: 07/01/19 04:50 07/01/19 04:50 06/30/19 07/01/19 07/01/19 13:20 04:50 04:50 WBC 4.1 4.7 RBC 3.49 L 3.48 L Hgb 10.6 L 10.5 L Hct 32.0 L 32.1 L MCV 92 92 MCH 30.4 30.3 MCHC 33.1 32.9 RDW 17.0 H 17.1 H Plt Count 307 312 Seg Neutrophils % 57.5 58.5 Sodium 140.7 Potassium 4.1 Chloride 104 Carbon Dioxide 32 H Anion Gap 5 BUN 6 L Creatinine 1.17 Est GFR ( Amer) > 60 Glucose 98 Calcium 9.0 Magnesium 2.1 06/24/19 06/24/19 06/24/19 04:00 04:58 04:58 Troponin I Cancelled 0.084 NT-Pro-B Natriuret Pep 22968 H 06/24/19 06/27/19 13:30 15:38 Troponin I NT-Pro-B Natriuret Pep 8010 H 1340 H Impressions: Chest X-Ray 06/28/19 00:00 IMPRESSION: 1. Stable appearance of the chest. Knee X-Ray 06/30/19 00:00 IMPRESSION: Large joint effusion. Osteopenia and DJD. Assessment and Plan - Diagnosis (1) Acute and chronic respiratory failure with hypoxia Is this a current diagnosis for this admission?: Yes Plan: 06/30/2019 The patient was admitted on June 23 and immediately intubated. She was extubated I believe on 26 June. Today she is on BiPAP. Late morning she is going to take BiPAP mask off for lunch could not find her nasal cannula as described above. She is dependent on oxygen and we will work towards her baseline oxygen supplement which I believe is 2 to 3 L by nasal cannula. The most likely cause of her failure is her congestive heart failure. 07/01/2019 The patient appears to be stable on nasal cannula at her baseline oxygen supplem entation. I believe she did use the BiPAP for some of last night. Her breathing is getting back to baseline. She does report coughing up some green- colored sputum. For culture to be obtained. Because she is afebrile and has a white blood cell count I will not administer antibiotics at this time. (2) Acute on chronic systolic (congestive) heart failure Is this a current diagnosis for this admission?: Yes Plan: 06/30/2019 The patient is on her Entresto. Based on her pulse and blood pressure we will be looking to add back metoprolol and furosemide. She has continued in a negative fluid balance since admission with only a single dose of furosemide at the time of admission. We will likely resume furosemide daily dosing. I have consulted Dr. Martin who is her breaker up machine operator. 07/01/2019 She appears to be back at baseline. Continue current meds. (3) Acute renal failure superimposed on chronic kidney disease Qualifiers: Acute renal failure type: unspecified Chronic kidney disease stage: stage 3 (moderate) Qualified Code(s): N17.9 - Acute kidney failure, unspecified; N18.3 - Chronic kidney disease, stage 3 (moderate) Is this a current diagnosis for this admission?: Yes Plan: 06/30/2019 Serum creatinine is in the normal range and GFR is greater than 60. This is improved from admission. It is also much better historically since prior to April of this year her GFR was typically between 30 and 60. 07/01/2019 Her GFR is greater than 60. In March she achieved normal renal function as well. For most of 2018 she had compromised renal function and so hopefully this will be her new baseline. (4) Right knee pain Qualifiers: Chronicity: acute Qualified Code(s): M25.561 - Pain in right knee Is this a current diagnosis for this admission?: Yes Plan: 06/30/2019 There is obvious swelling likely fluid in the right knee. I will obtain x-rays. The patient is afebrile at this time. Consider orthopedic consult. If her white count is elevated or if her temperature increases we will obtain blood cultures as well. Narcotic analgesia for now. With her underlying kidney and heart disease we will try and avoid nonsteroidal anti-inflammatory medications. 07/01/2019 There is now some swelling in her foot. I have asked orthopedic surgery to assess her knee. She does have a history of gout. She is on anticoagulant therapy and hemarthrosis is a possibility. (5) Depression with anxiety Is this a current diagnosis for this admission?: Yes Plan: 06/30/2019 Continue BuSpar and Paxil 07/01/2019 Continue current meds (6) Cardiomyopathy Qualifiers: Cardiomyopathy type: dilated Qualified Code(s): I42.0 - Dilated cardiomyopathy Is this a current diagnosis for this admission?: Yes Plan: 06/30/2019 Etiology is multifactorial including cocaine, alcohol and coronary disease with hyperlipidemia. The goal is to return to her normal outpatient medication. 07/01/2019 No changes to the regimen at this time (7) CAD (coronary artery disease) Qualifiers: Coronary Disease-Associated Artery/Lesion type: [place] artery [place] vs. transplanted heart: [place] heart Associated angina: with unspecified angina Qualified Code(s): I25.119 - Atherosclerotic heart disease of [place] coronary artery with unspecified angina pectoris Is this a current diagnosis for this admission?: No Plan: 06/30/2019 No current complaints of acute coronary syndrome/chest pain. Because returned t o her baseline medication regimen. 07/01/2019 Stable at this time. Continue current treatment plan. (8) Longstanding persistent atrial fibrillation Is this a current diagnosis for this admission?: Yes Plan: 06/30/2019 Currently in sinus rhythm. Apixaban has been restarted. We will restart metoprolol when the blood pressure and pulse allow. 07/01/2019 Continue anticoagulation cardiac medications - Time Time Spent with patient: 15-24 minutes Medications reviewed and adjusted accordingly: Yes Anticipated discharge: Home with Homehealth
[2019-07-01] MEDS: COLCHICINE 0.6 MG TABLET PO SCH ×2 (16:19→21:14)
--- NOTE | 2019-07-01 17:41 | PDOC CONSULTATION ---
Consultation Consult Date: 07/01/19 Attending physician:: TIMBO ANDRADE Provider Consulted: PINA GARCÍA History of Present Illness Admission Date/PCP: 06/24/19 07:00 YI SHANNON MD Patient complains of: Right knee pain History of Present Illness: FRANKI DEL ROSARIO is a 48 year old female with acute onset right knee pain. She has a extensive medical history and was admitted for respiratory failure requiring ICU admission along with intubation. Patient subsequently was transferred to the floor. She had been showing improvement began having pain in her right knee and leg yesterday. Since that she has had pain with any attempted motion of the knee. Denies fever chills or sweats. Has had a history of gout in her foot in the past. Denies specific injury. Pain 5/5 with motion. Past Medical History Cardiac Medical History: Reports: Atrial Fibrillation, Congestive Heart Failure, Coronary Artery Disease, Myocardial Infarction, Hyperlipidema, Hypertension Denies: DVT, Pulmonary Embolism Pulmonary Medical History: Reports: Bronchitis, Chronic Obstructive Pulmonary Disease (COPD), Intubation, Pneumonia, Respiratory Failure, Sleep Apnea Denies: Asthma Neurological Medical History: Denies: Seizures Endocrine Medical History: Denies: Diabetes Mellitus Type 1, Diabetes Mellitus Type 2, Hyperthyroidism, Hypothyroidism Renal/ Medical History: Reports: Other - Hx Chronic Kidney Disease, stage III GI Medical History: Reports: Gastroesophageal Reflux Disease Denies: Cirrhosis, Crohn's Disease, Hepatitis, Hiatal Hernia, Ulcerative Colitis Musculoskeltal Medical History: Denies: Arthritis, Gout Skin Medical History: Denies: Eczema, Psoriasis Psychiatric Medical History: Reports: Depression Hematology: Reports: Anemia - Chronic, Bleeding Tendencies - "On blood thinners" Infectious Medical History: Reports: Methicillin-Resistant Staph Aureus - And sputum on last admission. Past Surgical History Past Surgical History: Reports: Cardiac Catheterization - multiple, Section, Coronary Artery Bypass Graft - 2006, Coronary Stent - Multiple, Hysterectomy, Pacemaker - AICD, Tubal Ligation Denies: Mastectomy Social History Smoking Status: Unknown if Ever Smoked Electronic Cigarette use?: No Frequency of Alcohol Use: Occasional Hx Recreational Drug Use: Yes Drugs: Cocaine, Marijuana Hx Prescription Drug Abuse: No - Advance Directive Resuscitation Status: Full Code Family History Family History: Reviewed & Not Pertinent, CAD, CVA, DM, Hypertension, Malignancy, Other - Kidney disease Parental Family History Reviewed: No Children Family History Reviewed: No Sibling(s) Family History Reviewed.: No Medication/Allergy Home Medications: Alprazolam [Xanax 0.5 mg Tablet] 0.5 mg PO Q6HP PRN 02/08/19 Atorvastatin Calcium [Lipitor 80 mg Tablet] 80 mg PO QHS 02/08/19 Buspirone HCl [Buspar 10 mg Tablet] 10 mg PO BID 02/08/19 Paroxetine HCl [Paxil 20 mg Tablet] 20 mg PO DAILY 02/08/19 Famotidine [Pepcid 20 mg Tablet] 20 mg PO Q12 #60 tablet 03/23/19 Apixaban [Eliquis 2.5 mg Tablet] 2.5 mg PO BID #60 tablet 04/16/19 Furosemide [Lasix 40 mg Tablet] 40 mg PO DAILY 15 Days #15 tablet 05/02/19 Midodrine HCl 10 mg PO TID 15 Days #45 tablet 05/02/19 Isosorbide Mononitrate [Imdur 30 mg Tablet.er] 30 mg PO DAILY #30 tab.er.24h 05/29/19 Metoprolol Succinate [Toprol Xl 25 mg Tab.sr] 25 mg PO Q12 #60 tab.sr.24h 05/29/19 Sacubitril/Valsartan [Entresto 49 mg/51 mg Tablet] 1 tab PO BID #30 tablet 05/29/19 Oxycodone HCl/Acetaminophen [Percocet 7.5-325 mg Tablet] 1 each PO Q6HP PRN 06/24/19 Allergies/Adverse Reactions: egg [Egg] Allergy (Verified 10/04/18 00:18) propoxyphene [From Darvocet-N] Allergy (Verified 10/04/18 00:18) amiodarone Adverse Reaction (Verified 10/04/18 00:18) Respiratory distress diphenhydramine HCl [From Benadryl] Adverse Reaction (Verified 10/04/18 00:18) chest pain, bigemeny rhythm Review of Systems Constitutional: ABSENT: chills, fever(s), headache(s), weight gain, weight loss Eyes: ABSENT: visual disturbances Ears: ABSENT: hearing changes Cardiovascular: ABSENT: chest pain, dyspnea on exertion, edema, orthropnea, palpitations Respiratory: PRESENT: cough, sputum. ABSENT: hemoptysis Gastrointestinal: ABSENT: abdominal pain, constipation, diarrhea, hematemesis, hematochezia, nausea, vomiting Genitourinary: ABSENT: dysuria, hematuria Musculoskeletal: PRESENT: as per HPI Integumentary: ABSENT: rash, wounds Neurological: ABSENT: abnormal gait, abnormal speech, confusion, dizziness, focal weakness, syncope Psychiatric: ABSENT: anxiety, depression, homidical ideation, suicidal ideation Endocrine: ABSENT: cold intolerance, heat intolerance, menstrual abnormalities, polydipsia, polyuria Hematologic/Lymphatic: PRESENT: easy bleeding. ABSENT: easy bruising, lymphadenopathy Physical Exam Vital Signs: Temp Pulse Resp BP Pulse Ox 98.9 F 66 16 113/73 99 07/01/19 16:00 07/01/19 16:00 07/01/19 16:00 07/01/19 16:00 07/01/19 16:00 Intake & Output 06/30/19 07/01/19 07/02/19 06:59 06:59 06:59 Intake Total 340 510 Output Total 795 600 Balance -455 -90 Weight 108.8 kg 105.4 kg General appearance: PRESENT: no acute distress, cooperative, well-developed, well-nourished Head exam: PRESENT: atraumatic, normocephalic Eye exam: PRESENT: conjunctiva pink, EOMI, PERRLA. ABSENT: scleral icterus Ear exam: PRESENT: normal external ear exam Mouth exam: PRESENT: moist, tongue midline Neck exam: PRESENT: full ROM. ABSENT: carotid bruit, JVD, lymphadenopathy, thyromegaly Cardiovascular exam: PRESENT: RRR. ABSENT: diastolic murmur, rubs, systolic murmur Pulses: PRESENT: normal radial pulses, other - Right femoral vascular access Vascular exam: PRESENT: normal capillary refill GI/Abdominal exam: PRESENT: normal bowel sounds, soft. ABSENT: distended, guarding, mass, organolmegaly, rebound, tenderness Rectal exam: PRESENT: deferred Musculoskeletal exam: PRESENT: other - Right knee: Moderate effusion. Mild increased warmth compared to the noninvolved left knee. Pain with attempted range of motion. Tenderness along the anterior joint line. Mild posterior tenderness. No erythema. No evidence of skin wound. Intact plantarflexion/dorsiflexion. Neurological exam: PRESENT: alert, awake, oriented to person, oriented to place, oriented to time, oriented to situation, CN II-XII grossly intact. ABSENT: motor sensory deficit Psychiatric exam: PRESENT: appropriate affect, normal mood. ABSENT: homicidal ideation, suicidal ideation Skin exam: PRESENT: dry, intact, warm. ABSENT: cyanosis, rash Results Laboratory Results: 07/01/19 04:50 07/01/19 04:50 07/01/19 07/01/19 07/01/19 04:50 04:50 04:50 WBC 4.7 RBC 3.48 L Hgb 10.5 L Hct 32.1 L MCV 92 MCH 30.3 MCHC 32.9 RDW 17.1 H Plt Count 312 Seg Neutrophils % 58.5 Sodium 140.7 Potassium 4.1 Chloride 104 Carbon Dioxide 32 H Anion Gap 5 BUN 6 L Creatinine 1.17 Est GFR ( Amer) > 60 Glucose 98 Uric Acid 5.0 Calcium 9.0 Magnesium 2.1 06/24/19 06/24/19 06/24/19 04:00 04:58 04:58 Troponin I Cancelled 0.084 NT-Pro-B Natriuret Pep 05198 H 06/24/19 06/27/19 13:30 15:38 Troponin I NT-Pro-B Natriuret Pep 8010 H 1340 H Impressions: Chest X-Ray 06/28/19 00:00 IMPRESSION: 1. Stable appearance of the chest. Knee X-Ray 06/30/19 00:00 IMPRESSION: Large joint effusion. Osteopenia and DJD. Status: Image reviewed by nd - Radiographs have been reviewed consistent with moderate intra-articular effusion no evidence of osseous abnormality. Assessment & Plan - Diagnosis (1) Knee effusion, right Is this a current diagnosis for this admission?: Yes Plan: Patient has evidence of right knee effusion of unknown origin. She does have history of gout plus that remains within the differential despite normal uric acid. Today we discussed treatment options and have recommended proceeding with arthrocentesis. Risk and benefits of arthrocentesis have been explained patient verbalized understanding consented for procedure. At completion of arthrocentesis there was evidence of yellow appearing joint fluid no significant purulence or crystals appreciated however uric acid or inflammatory arthropathy remains within the differential diagnosis. Once lab results from the aspiration are complete we will determine next appropriate step of management. See procedure note below. Preoperative diagnosis: Right knee effusion Postoperative diagnosis: Same Procedure performed: Arthrocentesis right knee Findings: Yellow pain joint fluid no evidence of purulence or blood Procedure detail: Right knee was prepped with alcohol. Via suprapatellar lateral approach 18-gauge needle was inserted into the joint and 30 cc of yellow appearing joint fluid was aspirated. Wound was dressed with 4 x 4's and tape. Patient tolerated procedure well. Fluid sent to lab for cell count with differential, crystals culture/sensitivity and Gram stain.
[2019-07-01 18:12] LABS: CALCIUM PYROPHOSPHATE CRYSTALS NONE OBSERVED; MONOSODIUM URATE CRYSTALS INTRACELLULAR; OTHER CRYSTALS NONE OBSERVED
--- NOTE | 2019-07-01 18:45 | Progress Note ---
Provider Note Provider Note: CARDIOLOGY PROGRESS NOTE by Dr. Griselda Martin on 07/01/2019. OBJECTIVE: The patient denies any chest pain or discomfort. There is no arrhythmia seen on the monitor. There is no PND or orthopnea. The patient intermittently uses BiPAP. She complains of significant pain in the right knee joint. She is being seen by orthopedics and she had aspiration of the joint. This yielded yellow color fluid and there is no evidence of bleeding into the joint. The fluid has been sent for analysis. His serum uric acid is normal. But this does not exclude gout. The patient has a history of gout in the past. There is no firing of AICD. There is no bleeding on Eliquis. There is no TIA CVA symptoms. PHYSICAL EXAMINATION: The patient is moderate to severely obese. In no acute distress. Selected Entries 07/01/19 12:00 Temperature 98.0 F Temperature Oral Source Heart Rate ( 62 Monitors) Respiratory 16 Rate Blood Pressure 100/60 [Upper Arm] Blood Pressure 73 Mean [Upper Arm ] Blood Pressure Supine Position [Upper Arm] O2 Sat by Pulse 99 Oximetry Oxygen Delivery Bi-pap Method ( includes room air) HEAD: Is atraumatic normocephalic. EYES: Pupils are equal round regular reactive to light. HEENT is negative. SKIN: There is no skin rashes or skin lesions. There is no particular ecchymosis. NECK: Is supple. There is mild JVD present. Carotids are equal there is no bruits. There is no lymphadenopathy. There is no goiter. There is no accessory muscle respiration use. Trachea central. LUNGS: . There is diminished air entry. On percussion there is hyperresonance. On palpation there is no chest wall tenderness, dry crackles at both bases, and also some fine rales of CHF. HEART: S1-S2 is heard. There is no S3 gallop. There is no S4 gallop. There is systolic murmur mitral regurgitation tricuspid regurgitation present. There is no aortic stenosis murmur. There is no aortic insufficiency murmur. There is no rub. ABDOMEN: Is obese. Nontender. There is no hepatosplenomegaly. Bowel sounds are well heard. There is no rebound guarding or rigidity. EXTREMITIES: Femorals are deep. Femorals are diminished. There is no femoral bruits. There is decreased leg pulses. There is mild pedal edema. 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 PSYCHIATRIC: The patient judgment insight are intact. She does not appear to be agitated or anxious. MUSCULOSKELETAL: There is swelling and tenderness of the right knee with increased warmth. Hepatitis B Panel 06/24/19 Range/Units 07:21 COVID-19 Source NASOPHARYNGEAL COVID-19 (DHRUV) NOT DETECTED Medications Administered Hydrocodone Bitart/Acetaminophen (Chazy 10-325 Mg Tablet) 1 tab PO Q4HP PRN PRN Reason: FOR PAIN SCALE 3-4 Stop: 07/07/19 12:29 Last Admin: 07/01/19 16:18 Dose: 1 tab Documented by: BIANCA Pain Assessment Document 07/01/19 16:18 MDA (Rec: 07/01/19 16:19 MDA [id number]) Pain Level Pain Scale Used Adult (verbal) Pain Level 4 Pain Relief Techniques Medication,Distraction Pain Location/Description Pain Location-Side of the Body Right Pain Location Lower extremity Apixaban (Eliquis 2.5 Mg Tablet) 2.5 mg PO Q12 WILY Stop: 07/30/19 21:59 Last Admin: 07/01/19 09:22 Dose: 2.5 mg Documented by: MEGDAVIS Atorvastatin Calcium (Lipitor 80 Mg Tablet) 80 mg PO QHS WILY Stop: 07/30/19 21:59 Last Admin: 06/30/19 22:26 Dose: 80 mg Documented by: SEBLEIS Buspirone HCl (Buspar 10 Mg Tablet) 10 mg PO Q12 WILY Stop: 07/30/19 21:59 Last Admin: 07/01/19 09:22 Dose: 10 mg Documented by: MEGDAVIS Colchicine (Colcrys 0.6 Mg Tablet) 0.6 mg PO Q12 WILY Stop: 07/31/19 15:29 Last Admin: 07/01/19 16:19 Dose: 0.6 mg Documented by: MEGDAVIS Famotidine (Pepcid 20 Mg Tablet) 20 mg PO Q12 WILY Stop: 07/30/19 21:59 Last Admin: 07/01/19 09:22 Dose: 20 mg Documented by: MEGDAVIS Heparin Sodium (Porcine) (Heparin Flush 10 Unit/Ml 5 Ml Disp.Syrg) 30 unit IV Q8 WILY Stop: 07/25/19 13:59 Last Admin: 07/01/19 16:19 Dose: 30 unit Documented by: BIANCA Heparin Sodium (Porcine) (Heparin Flush 10 Unit/Ml 5 Ml Disp.Syrg) 30 unit IV .AFTER EACH USE PRN PRN Reason: AFTER EACH INTERMITTENT USE Stop: 07/25/19 11:41 Last Admin: 06/30/19 15:23 Dose: 30 unit Documented by: PATIENCE Metoprolol Succinate (Toprol Xl 25 Mg Tab.Sr) 25 mg PO Q12 [facility] Stop: 07/31/19 09:59 Last Admin: 07/01/19 09:22 Dose: 25 mg Documented by: BIANCA Morphine Sulfate (Morphine 10 Mg/Ml Inj) 5 mg IV Q4HP PRN PRN Reason: FOR PAIN SCALE 4-5 Stop: 07/07/19 12:30 Last Admin: 07/01/19 18:09 Dose: 5 mg Documented by: BIANCA Pain Assessment Document 07/01/19 18:09 MDA (Rec: 07/01/19 18:10 [facility] [id number]) Pain Level Pain Scale Used Adult (verbal) Pain Level 5 Non Verbal Pain Queues Moaning,Facial Grimacing Pain Relief Techniques Medication,Position Change, Distraction Pain Location/Description Pain Location-Side of the Body Right Pain Location Knee Pain Type Acute Paroxetine HCl (Paxil 20 Mg Tablet) 20 mg PO QHS [facility] Stop: 07/30/19 21:59 Last Admin: 06/30/19 22:27 Dose: 20 mg Documented by: LEONILA Sacubitril/Valsartan (Entresto 49 Mg/51 Mg Tablet) 1 tab PO BID [facility] Stop: 07/25/19 17:59 Last Admin: 07/01/19 11:38 Dose: 1 tab Documented by: MADIEVIS Sodium Chloride (Saline Flush 2.5 Ml Monoject Prefil Syrin) 2.5 ml IV Q8 [facility] Stop: 07/24/19 13:59 Last Admin: 07/01/19 16:19 Dose: Not Given Documented by: BUCKYDAVIS Sodium Chloride (Nacl 0.9% Inj/Pf 10 Ml Sdv) 10 ml IV .AFTER EACH USE PRN PRN Reason: AFTER EACH INTERMITTENT USE Stop: 07/25/19 11:41 Last Admin: 06/30/19 22:27 Dose: 10 ml Documented by: NNORRIS Temazepam (Restoril 15 Mg Capsule) 15 mg PO HSP PRN PRN Reason: SLEEP OR INSOMNIA Stop: 07/07/19 12:31 Last Admin: 07/01/19 00:50 Dose: 15 mg Documented by: LEONILA Labs- All tests 24 hr 07/01/19 07/01/19 07/01/19 04:50 04:50 04:50 WBC 4.7 RBC 3.48 L Hgb 10.5 L Hct 32.1 L MCV 92 MCH 30.3 MCHC 32.9 RDW 17.1 H Plt Count 312 Lymph % (Auto) 26.4 [place] % (Auto) 11.6 Eos % (Auto) 2.3 Baso % (Auto) 1.2 Absolute Neuts (auto) 2.8 Absolute Lymphs (auto) 1.3 Absolute Monos (auto) 0.5 Absolute Eos (auto) 0.1 Absolute Basos (auto) 0.1 Seg Neutrophils % 58.5 Sodium 140.7 Potassium 4.1 Chloride 104 Carbon Dioxide 32 H Anion Gap 5 BUN 6 L Creatinine 1.17 Est GFR ( Amer) > 60 Est GFR (MDRD) Non-Af 50 L Glucose 98 Uric Acid 5.0 Calcium 9.0 Magnesium 2.1 Fluid Type Fluid Crystals Fluid Crystal Source Ca Pyrophosphate Cryst Synov Monosodium Urate 07/01/19 17:30 WBC RBC Hgb Hct MCV MCH MCHC RDW Plt Count Lymph % (Auto) [place]les % (Auto) Eos % (Auto) Baso % (Auto) Absolute Neuts (auto) Absolute Lymphs (auto) Absolute Monos (auto) Absolute Eos (auto) Absolute Basos (auto) Seg Neutrophils % Sodium Potassium Chloride Carbon Dioxide Anion Gap BUN Creatinine Est GFR ( Amer) Est GFR (MDRD) Non-Af Glucose Uric Acid Calcium Magnesium Fluid Type SYNOVIAL Fluid Crystals NONE OBSERVED Fluid Crystal Source RIGHT KNEE Ca Pyrophosphate Cryst NONE OBSERVED Synov Monosodium Urate INTRACELLULAR Chest X-Ray 06/24/19 00:00 IMPRESSION: 1. NG tube terminates in the distal esophagus near the GE junction, recommend advancement as above. 2. New ET tube appears in good position. 3. Otherwise no significant change. Chest X-Ray 06/24/19 11:18 IMPRESSION: STABLE APPEARANCE OF THE CHEST. SUPPORT DEVICES UNCHANGED. Chest X-Ray 06/28/19 00:00 IMPRESSION: 1. Stable appearance of the chest. Knee X-Ray 06/30/19 00:00 IMPRESSION: Large joint effusion. Osteopenia and DJD. IMPRESSION/RECOMMENDATION: 1. Acute on chronic respiratory failure. This is secondary to pneumonia, obstructive sleep apnea, and acute on chronic systolic heart failure: Secondary atrial flutter with rapid ventricular response. 2. Atrial flutter with rapid ventricle response. On interrogation of the AICD the patient at 1:57 AM on 06/24/2019 when the patient was cardioverted by EMT she was in atrial flutter. With a rapid ventricular response of 189. Since the patient was in atrial flutter with the AICD did not fire the AICD is functioning normally. Unfortunately to prevent the A. fib flutter recurrence cannot use amiodarone since the patient has a history of amiodarone toxicity. Hence would recommend starting the patient back on beta-rip. Note patient has a history of paroxysmal atrial fibrillation/flutter. Note on interrogation of the AICD it is known that the patient has several episodes of atrial flutter/fibrillation since June 18. 1 day she was in that rhythm for at least 24 hours. 3. Acute on chronic systolic heart failure. Patient with LV ejection fraction of 25%. Will restart beta-blockers and Entresto. Continue diuretics. Continue Entresto 4. Right knee swelling and pain: Probably the patient has a joint effusion. Would recommend that this is not secondary to bleeding to the joint. 5. History of MRSA pneumonia: The patient had a course of antibiotics. At present chest x-ray compatible with bibasilar pneumonia. This raises the possibility of recurrent pneumonias. Would recommend getting his swallow study to make sure that the patient is not aspirating. This is especially when the patient has respiratory failure causing hypercapnia and somnolence since. 6. History of amiodarone toxicity. Would recommend avoiding amiodarone 7. Acute renal failure. Although it is mentioned in the chart that the patient has chronic renal failure the patient has episodic acute renal failure with the renal function going back to normal. At present the patient's GFR is greater than 60. 8. Cardiomyopathy with severely reduced LV ejection fraction. Continue beta- rip and Entresto and Lasix. 9. COPD. At present no evidence of acute exacerbation of COPD. 10. History of ventricular tachycardia, The patient has an AICD placed. If there is recurrence of ventricular tachycardia or major ventricular ectopic activity then would start the patient on small dose of sotalol. Would avoid amiodarone. 11. Hypertension: Blood pressure well controlled, on current medications. 12. Coronary artery disease: History of SD and history of coronary bypass graft surgery. No evidence of acute coronary syndrome/non-ST ST elevation SD this admission. 13. Obstructive sleep apnea. Note patient has been noncompliant with CPAP. Most likely has significant pulmonary hypertension. 14. AICD placement: Note the patient's basal rate is around 60 bpm. If the patient's heart failure continues then would recommend increasing the basal heart rate to 80 bpm to help combat the heart failure along with diuretics. If there are recurrent episodes of atrial flutter or atrial fibrillation would make sure that the mode switch is on Medications reviewed. Medical management and medication regimen have been discussed with attending physician in detail. Medical decision making is of h igh complexity. 60 minutes spent as patient more than 50% time spent in direct patient care. Will follow
[2019-07-01 18:46] LABS: FLUID TYPE SYNOVIAL
[2019-07-01 18:47] LABS: FLUID APPEARANCE HAZY; FLUID COLOR YELLOW; FLUID SOURCE KNEE; FLUID VISCOSITY LIQUID
[2019-07-01] MEDS: PAROXETINE HCL 20 MG TABLET PO SCH (21:13)
[2019-07-01] MEDS: ATORVASTATIN CALCIUM 80 MG TABLET PO SCH (21:13)
[2019-07-02] MEDS: MORPHINE SULFATE 10 MG/ML INJ IV PRN ×5 (04:21→22:41)
[2019-07-02 05:01] LABS: ABSOLUTE EOSINOPHILS # (AUTO) 0.1 10^3/uL (0.0-0.6); ABSOLUTE LYMPHOCYTES (AUTO) 1.2 10^3/uL (0.5-4.7); ABSOLUTE MONOCYTES (AUTO) 0.5 10^3/uL (0.1-1.4); ABSOLUTE NEUT (AUTO) 2.8 10^3/uL (1.7-8.2); EOSINOPHILS % (AUTO) 1.7 % (0-6); HEMATOCRIT 30.7 % (36.0-47.0); HEMOGLOBIN 10.3 g/dL (12.0-15.5); LYMPHOCYTES % (AUTO) 25.4 % (13-45); MEAN CORPUSCULAR HEMOGLOBIN 30.9 pg (27.0-33.4); MEAN CORPUSCULAR HGB CONC 33.6 g/dL (32.0-36.0); MEAN CORPUSCULAR VOLUME 92 fl (80-97); MONOCYTES % (AUTO) 11.4 % (3-13); PLATELET COUNT 347 10^3/uL (150-450); RED BLOOD COUNT 3.34 10^6/uL (3.72-5.28); RED CELL DISTRIBUTION WIDTH 16.7 % (11.5-14.0); SEGMENTED NEUTROPHILS % (AUTO) 60.5 % (42-78); TOTAL CELLS COUNTED % (AUTO) 100 %; WHITE BLOOD COUNT 4.6 10^3/uL (4.0-10.5)
--- NOTE | 2019-07-02 08:39 | RADIOLOGY REPORT (SQ) ---
EXAM DESCRIPTION: CHEST SINGLE VIEW IMAGES COMPLETED DATE/TIME: 07/02/2019 8:28 am REASON FOR STUDY: Congestive heart failure/pneumonia COMPARISON: AP view of the chest from 06/28/2019. EXAM PARAMETERS: NUMBER OF VIEWS: One view. TECHNIQUE: An AP view of the chest was obtained. RADIATION DOSE: NA LIMITATIONS: None. FINDINGS: LUNGS AND PLEURA: The patient has been extubated and the enteric tube is no longer in plac e. The basilar predominant bilateral interstitial opacities are unchanged. The there is no pneumoth orax. MEDIASTINUM AND HILAR STRUCTURES: No mediastinal or hilar contour abnormality. HEART AND VASCULAR STRUCTURES: Stable enlarged cardiac silhouette. BONES: No acute findings. HARDWARE: Status post median sternotomy. There is a left subclavian vein approach triple lead ICD in place. OTHER: No other finding. IMPRESSION: Status post extubation and removal of the enteric tube. The radiographic appearance of the chest is otherwise unchanged with cardiomegaly and basilar bilateral interstitial opacities. Cli nical correlation for signs and symptoms of CHF/ interstitial edema is recommended. TECHNICAL DOCUMENTATION: JOB ID: [id number] 2010 [employer]- All Rights Reserved Reading location - IP/workstation name: ALE
[2019-07-02] MEDS: FAMOTIDINE 20 MG TABLET PO SCH ×2 (09:25→21:37)
[2019-07-02] MEDS: COLCHICINE 0.6 MG TABLET PO SCH ×2 (09:25→21:37)
[2019-07-02] MEDS: BUSPIRONE HCL 10 MG TABLET PO SCH ×2 (09:25→21:37)
[2019-07-02] MEDS: METOPROLOL SUCCINATE 25 MG TAB.SR.24H PO SCH ×2 (09:25→21:36)
[2019-07-02] MEDS: APIXABAN 2.5 MG TABLET PO SCH ×2 (09:25→21:37)
[2019-07-02] MEDS: SACUBITRIL/VALSARTAN 49 MG/51 MG TABLET PO SCH ×2 (09:26→18:23)
[2019-07-02] MEDS: ALPRAZOLAM 0.5 MG TABLET PO PRN ×2 (09:46→22:41)
--- NOTE | 2019-07-02 12:42 | PDOC PROGRESS REPORT ---
Subjective Progress Note for:: 07/02/19 Subjective:: Patient lying in bed comfortably. Continues to have pain in her right knee with attempted motion with swelling. Failed to see significant change after aspiration. Reason For Visit: ACUTE HYPOXIC RESPIRATORY FAILURE Physical Exam Vital Signs: Temp Pulse Resp BP Pulse Ox 98.6 F 82 16 129/82 H 98 07/02/19 12:00 07/02/19 12:00 07/02/19 12:00 07/02/19 12:00 07/02/19 12:00 Intake & Output 07/01/19 07/02/19 07/03/19 06:59 06:59 06:59 Intake Total 510 Output Total 600 300 Balance -90 -300 Weight 105.4 kg 105 kg Musculoskeletal exam: PRESENT: other - Right knee: Moderate effusion. Pain with attempted range of motion. Mild increased warmth compared to noninvolved left knee. No erythema. Intact plantarflexion/dorsiflexion. Results Laboratory Results: 07/02/19 04:40 07/01/19 04:50 07/01/19 07/01/19 07/01/19 04:50 17:30 17:30 WBC RBC Hgb Hct MCV MCH MCHC RDW Plt Count Seg Neutrophils % Uric Acid 5.0 Fluid Type SYNOVIAL SYNOVIAL Fluid Source KNEE Fluid Color YELLOW Fluid Appearance HAZY Fluid Viscosity LIQUID Fluid WBC 2367 Fluid RBC 233 07/02/19 04:40 WBC 4.6 RBC 3.34 L Hgb 10.3 L Hct 30.7 L MCV 92 MCH 30.9 MCHC 33.6 RDW 16.7 H Plt Count 347 Seg Neutrophils % 60.5 Uric Acid Fluid Type Fluid Source Fluid Color Fluid Appearance Fluid Viscosity Fluid WBC Fluid RBC 06/24/19 06/24/19 06/24/19 04:00 04:58 04:58 Troponin I Cancelled 0.084 NT-Pro-B Natriuret Pep 36911 H 06/24/19 06/27/19 13:30 15:38 Troponin I NT-Pro-B Natriuret Pep 8010 H 1340 H Impressions: Knee X-Ray 06/30/19 00:00 IMPRESSION: Large joint effusion. Osteopenia and DJD. Chest X-Ray 07/02/19 06:00 IMPRESSION: Status post extubation and removal of the enteric tube. The radiographic appearance of the chest is otherwise unchanged with cardiomegaly and basilar bilateral interstitial opacities. Clinical correlation for signs and symptoms of CHF/ interstitial edema is recommended. Assessment & Plan - Diagnosis (1) Knee effusion, right Is this a current diagnosis for this admission?: Yes Plan: Aspiration results are consistent with gout no findings to suggest septic arthritis. At this point would recommend pharmacological treatment of gout. Unless cultures become positive do not feel patient requires additional orthopedic work-up. May follow-up as outpatient. - Time Time Spent with patient: Less than 15 minutes
[2019-07-02] MEDS: NORMAL SALINE INJ/PF 0.9% 10 ML SDV IV PRN (14:22)
[2019-07-02] MEDS ORDERED: HYDROCODONE/ACETAMINOPHEN 10-325 MG TABLET PO PRN (14:22)
--- NOTE | 2019-07-02 15:34 | Progress Note ---
Provider Note Provider Note: CARDIOLOGY PROGRESS NOTE by Dr. Griselda Martin on 07/02/2019. SUBJECTIVE: The patient states that shortness breath is improved. She states she coughed up a large amount of greenish sputum. There is no chest pain discomfort. There is no recurrence of atrial flutter or fibrillation. There is no ventricular arrhythmia seen on the monitor. She denies any chest pain and there is no firing of AICD. There is no TIA CVA symptoms. There is no bleeding on Eliquis. PHYSICAL EXAMINATION: The patient is morbidly obese. In no acute distress at present Selected Entries 07/02/19 08:04 Temperature 99.0 F Temperature Oral Source Pulse Rate 63 Respiratory 18 Rate Blood Pressure 116/79 Blood Pressure 91 Mean BP Location Left Arm BP Position Supine O2 Sat by Pulse 99 Oximetry Oxygen Flow 3.00 Rate Oxygen Delivery Nasal Cannula Method HEAD: Is atraumatic normocephalic. EYES: Pupils are equal round regular reactive to light. HEENT is negative. SKIN: There is no skin rashes or skin lesions. There is no particular ecchymosis. NECK: Is supple. There is mild JVD present. Carotids are equal there is no bruits. There is no lymphadenopathy. There is no goiter. There is no accessory muscle respiration use. Trachea central. LUNGS: . There is diminished air entry. On percussion there is hyperresonance. On palpation there is no chest wall tenderness, dry crackles at both bases, and also some fine rales of CHF. HEART: S1-S2 is heard. There is no S3 gallop. There is no S4 gallop. There is systolic murmur mitral regurgitation tricuspid regurgitation present. There is no aortic stenosis murmur. There is no aortic insufficiency murmur. There is no rub. ABDOMEN: Is obese. Nontender. There is no hepatosplenomegaly. Bowel sounds are well heard. There is no rebound guarding or rigidity. EXTREMITIES: Femorals are deep. Femorals are diminished. There is no femoral bruits. There is decreased leg pulses. There is mild pedal edema. 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 PSYCHIATRIC: The patient judgment insight are intact. She does not appear to be agitated or anxious. MUSCULOSKELETAL: There is swelling and tenderness of the right knee with increased warmth. Labs- All tests 24 hr 07/02/19 04:40 WBC 4.6 RBC 3.34 L Hgb 10.3 L Hct 30.7 L MCV 92 MCH 30.9 MCHC 33.6 RDW 16.7 H Plt Count 347 Lymph % (Auto) 25.4 [place] % (Auto) 11.4 Eos % (Auto) 1.7 Baso % (Auto) 1.0 Absolute Neuts (auto) 2.8 Absolute Lymphs (auto) 1.2 Absolute Monos (auto) 0.5 Absolute Eos (auto) 0.1 Absolute Basos (auto) 0.0 Seg Neutrophils % 60.5 Chest X-Ray 06/24/19 00:00 IMPRESSION: 1. NG tube terminates in the distal esophagus near the GE junction, recommend advancement as above. 2. New ET tube appears in good position. 3. Otherwise no significant change. Chest X-Ray 06/24/19 11:18 IMPRESSION: STABLE APPEARANCE OF THE CHEST. SUPPORT DEVICES UNCHANGED. Chest X-Ray 06/28/19 00:00 IMPRESSION: 1. Stable appearance of the chest. Knee X-Ray 06/30/19 00:00 IMPRESSION: Large joint effusion. Osteopenia and DJD. Chest X-Ray 07/02/19 06:00 IMPRESSION: Status post extubation and removal of the enteric tube. The radiographic appearance of the chest is otherwise unchanged with cardiomegaly and basilar bilateral interstitial opacities. Clinical correlation for signs and symptoms of CHF/ interstitial edema is recommended. IMPRESSION/RECOMMENDATION: 1. Acute on chronic respiratory failure. This is secondary to pneumonia, obstructive sleep apnea, and acute on chronic systolic heart failure: Secondary atrial flutter with rapid ventricular response. 2. Atrial flutter with rapid ventricle response. On interrogation of the AICD the patient at 1:57 AM on 06/24/2019 when the patient was cardioverted by EMT she was in atrial flutter. With a rapid ventricular response of 189. Since the patient was in atrial flutter with the AICD did not fire the AICD is functioning normally. Unfortunately to prevent the A. fib flutter recurrence cannot use amiodarone since the patient has a history of amiodarone toxicity. Hence would recommend starting the patient back on beta-rip. Note patient has a history of paroxysmal atrial fibrillation/flutter. Note on interrogation of the AICD it is known that the patient has several episodes of atrial flutter/fibrillation since June 18. 1 day she was in that rhythm for at least 24 hours. 3. Acute on chronic systolic heart failure. Patient with LV ejection fraction of 25%. Will restart beta-blockers and Entresto. Continue diuretics. Continue Entresto 4. Right knee swelling and pain: Probably the patient has a joint effusion. Would recommend that this is not secondary to bleeding to the joint. 5. History of MRSA pneumonia: The patient had a course of antibiotics. At present chest x-ray compatible with bibasilar pneumonia. This raises the possibility of recurrent pneumonias. Would recommend getting his swallow study to make sure that the patient is not aspirating. This is especially when the patient has respiratory failure causing hypercapnia and somnolence since. 6. History of amiodarone toxicity. Would recommend avoiding amiodarone 7. Acute renal failure. Although it is mentioned in the chart that the patient has chronic renal failure the patient has episodic acute renal failure with the renal function going back to normal. At present the patient's GFR is greater than 60. 8. Cardiomyopathy with severely reduced LV ejection fraction. Continue beta- rip and Entresto and Lasix. 9. COPD. At present no evidence of acute exacerbation of COPD. 10. History of ventricular tachycardia, The patient has an AICD placed. If there is recurrence of ventricular tachycardia or major ventricular ectopic activity then would start the patient on small dose of sotalol. Would avoid amiodarone. 11. Hypertension: Blood pressure well controlled, on current medications. 12. Coronary artery disease: History of [place] and history of coronary bypass graft surgery. No evidence of acute coronary syndrome/non-ST ST elevation [place] this admission. 13. Obstructive sleep apnea. Note patient has been noncompliant with CPAP. Most likely has significant pulmonary hypertension. 14. AICD placement: Note the patient's basal rate is around 60 bpm. If the patient's heart failure continues then would recommend increasing the basal heart rate to 80 bpm to help combat the heart failure along with diuretics. If there are recurrent episodes of atrial flutter or atrial fibrillation would make sure that the mode switch is on Medications reviewed. Medical management and medication regimen have been discussed with attending physician in detail. Medical decision making is of moderate complexity. 40 minutes spent as patient more than 50% time spent in direct patient care. Will follow
[2019-07-02] MEDS ORDERED: OXYCODONE-ACETAMINOPHEN 5-325 MG TABLET PO PRN (19:05)
[2019-07-02] MEDS ORDERED: ALBUTEROL SULFATE 0.083% NEB 2.5 MG/3 ML AMPUL NEB PRN (19:12)
--- NOTE | 2019-07-02 19:30 | PDOC PROGRESS REPORT ---
Subjective Progress Note for:: 07/02/19 Subjective:: She was seen on afternoon rounds. She is found resting, comfortably, on BiPAP. She reports intermittent shortness of breath and a productive cough. Her primary complaint is right knee pain; now s/p aspiration with confirmed gout. Otherwise, she does report that she is feeling better as compared to time of admission. States that she is hopeful to discharge home soon. Though, again asks for increased pain medication for control of her knee pain. She specifically denies fever, chills, headache, chest pain, palpitations, abd pain, n/v/d, and peripheral edema. She has no other questions or concerns. No concerns per nursing. Reason For Visit: ACUTE HYPOXIC RESPIRATORY FAILURE Physical Exam Vital Signs: Temp Pulse Resp BP Pulse Ox 98.6 F 61 14 129/82 H 98 07/02/19 12:00 07/02/19 14:00 07/02/19 16:23 07/02/19 12:00 07/02/19 12:00 Intake & Output 07/01/19 07/02/19 07/03/19 06:59 06:59 06:59 Intake Total 510 Output Total 600 300 Balance -90 -300 Weight 105.4 kg 105 kg 105 kg General appearance: PRESENT: cooperative, mild distress, well-developed, well- nourished Head exam: PRESENT: atraumatic, normocephalic Eye exam: PRESENT: conjunctiva pink, EOMI, PERRLA. ABSENT: scleral icterus Mouth exam: PRESENT: moist, tongue midline Respiratory exam: PRESENT: prolonged expiratory phas, rhonchi, symmetrical, unlabored, other - BiPAP. ABSENT: rales, wheezes Cardiovascular exam: PRESENT: RRR, +S1. ABSENT: diastolic murmur, rubs, systolic murmur Vascular exam: PRESENT: normal capillary refill Rectal exam: PRESENT: deferred Extremities exam: PRESENT: full ROM, pedal edema - trace pedal bilaterally, tenderness - mild Rt knee erythema and edema. ABSENT: calf tenderness, clubbing Neurological exam: PRESENT: alert, awake, oriented to person, oriented to place, oriented to time, oriented to situation, CN II-XII grossly intact. ABSENT: motor sensory deficit Psychiatric exam: PRESENT: appropriate affect, normal mood. ABSENT: homicidal ideation, suicidal ideation Skin exam: PRESENT: dry, intact, warm. ABSENT: cyanosis, rash Results Laboratory Results: 07/02/19 04:40 07/01/19 04:50 07/02/19 04:40 WBC 4.6 RBC 3.34 L Hgb 10.3 L Hct 30.7 L MCV 92 MCH 30.9 MCHC 33.6 RDW 16.7 H Plt Count 347 Seg Neutrophils % 60.5 06/24/19 06/24/19 06/24/19 04:00 04:58 04:58 Troponin I Cancelled 0.084 NT-Pro-B Natriuret Pep 04444 H 06/24/19 06/27/19 13:30 15:38 Troponin I NT-Pro-B Natriuret Pep 8010 H 1340 H Impressions: Knee X-Ray 06/30/19 00:00 IMPRESSION: Large joint effusion. Osteopenia and DJD. Chest X-Ray 07/02/19 06:00 IMPRESSION: Status post extubation and removal of the enteric tube. The radiographic appearance of the chest is otherwise unchanged with cardiomegaly and basilar bilateral interstitial opacities. Clinical correlation for signs and symptoms of CHF/ interstitial edema is recommended. Assessment and Plan - Diagnosis (1) Acute and chronic respiratory failure with hypoxia Is this a current diagnosis for this admission?: Yes Plan: 06/30/2019 The patient was admitted on June 23 and immediately intubated. She was extubated I believe on 26 June. Today she is on BiPAP. Late morning she is going to take BiPAP mask off for lunch could not find her nasal cannula as described above. She is dependent on oxygen and we will work towards her baseline oxygen supplement which I believe is 2 to 3 L by nasal cannula. The most likely cause of her failure is her congestive heart failure. 07/01/2019 The patient appears to be stable on nasal cannula at her baseline oxygen supplementation. I believe she did use the BiPAP for some of last night. Her breathing is getting back to baseline. She does report coughing up some green- colored sputum. For culture to be obtained. Because she is afebrile and has a white blood cell count I will not administer antibiotics at this time. 07/02/2019 Currently on BiPAP; patient reports that her work of breathing is significantly improved, she is noted to be slightly tachypneic with bilateral rhonchi. She admits to continued cough and increase sputum production, however, has not yet sent sputum sample. She remains afebrile with normal WBC. Overall it appears that her respiratory status is gradually improving and neari ng her baseline function. Will start as needed nebulizer treatments. Start Mucinex twice daily. Encourage pulmonary toilet with incentive spirometer and flutter valve. (2) Acute on chronic systolic (congestive) heart failure Is this a current diagnosis for this admission?: Yes Plan: 06/30/2019 The patient is on her Entresto. Based on her pulse and blood pressure we will be looking to add back metoprolol and furosemide. She has continued in a negative fluid balance since admission with only a single dose of furosemide at the time of admission. We will likely resume furosemide daily dosing. I have consulted Dr. Martin who is her prompt care rn. 07/01/2019 She appears to be back at baseline. Continue current meds. 07/02/2019 Cardiology is consulted; appreciate Dr. Ragsdale's evaluation and assistance. Medications per Dr. Ragsdale's expertise. Currently on Entresto, Metoprolol, Eliquis, and Atorvastatin. Cardiac diet. Daily weights, strict I&Os (3) Acute renal failure superimposed on chronic kidney disease Qualifiers: Acute renal failure type: unspecified Chronic kidney disease stage: stage 3 (moderate) Qualified Code(s): N17.9 - Acute kidney failure, unspecified; N18.3 - Chronic kidney disease, stage 3 (moderate) Is this a current diagnosis for this admission?: Yes Plan: 06/30/2019 Serum creatinine is in the normal range and GFR is greater than 60. This is improved from admission. It is also much better historically since prior to [facility] of this year her GFR was typically between 30 and 60. 07/01/2019 Her GFR is greater than 60. In March she achieved normal renal function as well. For most of 2019 she had compromised renal function and so hopefully this will be her new baseline. 07/02/2019 Resolved; now at baseline renal function with Cr 1.17/BUN 6 Avoid nephrotoxic medications as able. Follow up chemistry. (4) CAD (coronary artery disease) Qualifiers: Coronary Disease-Associated Artery/Lesion type: [place] artery [place] vs. transplanted heart: [place] heart Associated angina: without angina Qualified Code(s): I25.10 - Atherosclerotic heart disease of [place] coronary artery without angina pectoris Is this a current diagnosis for this admission?: Yes Plan: Continue home dose Eliquis and atorvastatin. Cardiac diet. (5) Cardiomyopathy Qualifiers: Cardiomyopathy type: dilated Qualified Code(s): I42.0 - Dilated cardiomyopathy Is this a current diagnosis for this admission?: Yes Plan: 06/30/2019 Etiology is multifactorial including cocaine, alcohol and coronary disease with hyperlipidemia. 07/01/2019 No changes to the regimen at this time 07/02/2019 Evaluation and medication as above. (6) Depression with anxiety Is this a current diagnosis for this admission?: Yes Plan: 06/30/2019 Continue BuSpar and Paxil 07/01/2019 Continue current meds 07/02/2019 Continue home BusPar, Paxil, Restoril and home dose Xanax. (7) Longstanding persistent atrial fibrillation Is this a current diagnosis for this admission?: Yes Plan: 06/30/2019 Currently in sinus rhythm. Apixaban has been restarted. We will restart m etoprolol when the blood pressure and pulse allow. 07/01/2019 Continue anticoagulation cardiac medications 07/02/2019 Rate controlled on Toprol-XL 25 mg twice daily. Continue renally dosed Eliquis. (8) Right knee pain Qualifiers: Chronicity: acute Qualified Code(s): M25.561 - Pain in right knee Is this a current diagnosis for this admission?: Yes Plan: 06/30/2019 There is obvious swelling likely fluid in the right knee. I will obtain x-rays. The patient is afebrile at this time. Consider orthopedic consult. If her white count is elevated or if her temperature increases we will obtain blood cultures as well. Narcotic analgesia for now. With her underlying kidney and heart disease we will try and avoid nonsteroidal anti-inflammatory medications. 07/01/2019 There is now some swelling in her foot. I have asked orthopedic surgery to assess her knee. She does have a history of gout. She is on anticoagulant therapy and hemarthrosis is a possibility. 07/02/2019 Secondary to Gout. Orthopedics was consulted; appreciate Dr. Easley's assistance. Gram stain and culture negative to date. Synovial fluid positive for monosodium Urate. Continue twice daily colchicine. Monitor renal function. Analgesics as needed. (9) Gout flare Qualifiers: Gout site: knee Gout etiology: idiopathic Laterality: right Qualified Code(s): M10.061 - Idiopathic gout, right knee Is this a current diagnosis for this admission?: Yes Plan: As above. - Time Time Spent with patient: 25-34 minutes Medications reviewed and adjusted accordingly: Yes Anticipated discharge: Home with Homehealth
[2019-07-02] MEDS: OXYCODONE-ACETAMINOPHEN 5-325 MG TABLET PO PRN (19:48)
[2019-07-02] MEDS: PAROXETINE HCL 20 MG TABLET PO SCH (21:37)
[2019-07-02] MEDS: ATORVASTATIN CALCIUM 80 MG TABLET PO SCH (21:37)
[2019-07-02] MEDS: GUAIFENESIN 600 MG TABLET.SA PO SCH (21:37)
[2019-07-03] MEDS: MORPHINE SULFATE 10 MG/ML INJ IV PRN ×2 (05:22→10:06)
[2019-07-03 06:03] LABS: HEMATOCRIT 29.4 % (36.0-47.0); HEMOGLOBIN 9.9 g/dL (12.0-15.5); MEAN CORPUSCULAR HEMOGLOBIN 30.9 pg (27.0-33.4); MEAN CORPUSCULAR HGB CONC 33.5 g/dL (32.0-36.0); MEAN CORPUSCULAR VOLUME 92 fl (80-97); PLATELET COUNT 327 10^3/uL (150-450); RED BLOOD COUNT 3.19 10^6/uL (3.72-5.28); RED CELL DISTRIBUTION WIDTH 16.8 % (11.5-14.0); WHITE BLOOD COUNT 3.6 10^3/uL (4.0-10.5)
[2019-07-03 06:25] LABS: BLOOD UREA NITROGEN 7 mg/dL (7-20); CALCIUM 8.9 mg/dL (8.4-10.2); CARBON DIOXIDE 31 mmol/L (22-30); CHLORIDE 104 mmol/L (98-107); GLUCOSE 102 mg/dL (75-110); POTASSIUM 3.9 mmol/L (3.6-5.0)
[2019-07-03 06:30] LABS: ANION GAP 5 (5-19)
[2019-07-03] MEDS: OXYCODONE-ACETAMINOPHEN 5-325 MG TABLET PO PRN ×2 (08:00→12:11)
--- NOTE | 2019-07-03 09:58 | ST Inp Modified Barium Swallow ---
Medical Diagnosis - Medical Diagnoses Medical Diagnosis Description & ICD-10 Code(s): acute and chronic respiratory failure with hypoxia, dysphagia - ICD-10 Tx Diagnosis Coding (1) Acute respiratory failure with hypoxia ICD-10 Code(s): J96.01 - ACUTE RESPIRATORY FAILURE WITH HYPOXIA (2) CAP (community acquired pneumonia) due to MRSA (methicillin resistant Staphylococcus aureus) ICD-10 Code(s): J15.212 - PNEUMONIA DUE TO METHICILLIN RESISTANT STAPHYLOCOCCUS AUREUS (3) Healthcare-associated pneumonia ICD-10 Code(s): J18.9 - PNEUMONIA, UNSPECIFIED ORGANISM (4) Pneumonia ICD-10 Code(s): J18.9 - PNEUMONIA, UNSPECIFIED ORGANISM ST Inpatient MBS - General Date: 07/03/19 Date of Onset: 07/24/19 - admission date - History -: Medical - per EMR: patient admitted 06/23 with respiratory distress, was intubated after arrival to hospital. Patient was extubated on 06/27, subsequentlly passed nursing swallow screen and was started on PO diet. Prior medical history includes A Fib, CAD, CHF, stage 3 kidney disease, COPD, respiratory failure with multiple admissions with intubations. Pateint has history of MRSA pneumonia, chest x-ray currently compabible with bibasilar pneumonia, swallow study recommended by provider to rule out aspiration as cause of recurrent pneumonias. Medications: Medications Reviewed Allergies: Refer to medical record - Subjective Current Nutritional Means: PO Current PO Diet: Regular Current Symptoms: Pneumonia Pain: Patient reports, 5/5 - right knee pain reported, constant - Objective Assessment: Upright, Left Lateral - Food Trials Food Trials Used: Thin liquids, Pureed, Regular The Patient: Was Able to Self Feed - Assessment Labial Function: Within Normal Limits Lingual Function: Within Normal Limits Mandibular Function: Within Normal Limits Dentition: Partial Velo-Pharyngeal Function: Unremarkable - Pharyngeal Stage Initiation of Pharyngeal Stage: Normal Decreased Laryngeal Elevation: No Reduced Velo-Pharyngeal Closure: no Reduced Pressure Generation: No Reduced Tongue Base Retraction: No Pre-Swallowing Pooling in Valleculae: None Pre-Swallowing Pooling in Pyriforms: None Reduced Thyro-Hyiod Approximation: No Reduced Epiglottic Excursion: No Reduced Pharyngeal Peristalsis: No Multiple Swallows With: Effective Post Swallow Residuals in Valleculae: None Post Swallow Residuals in Pyriforms: None - Impression/Summary Laryngeal Penetration: No Tracheal Aspiration: no Patient Presents With: Normal swallow at eval Risk of Aspiration: Mild Risk Due To: underlying respiratory deficits - Recommendations Solid Diet Recommendations: Regular Liquid Diet Recommendations: Thin Strict Aspitarion Precautions: Yes Dysphagia Therapy with TEACHING ASSOCIATE: No Recommended Techniques: Fully Upright During Meal, Small Bites and Sips Other Recommendations: No diet change recommendations, no strategies other than standard aspiration precautions due to underlying respiraotry status. No follow up indicated at this time. - Time Total Time: 30 Total Timed Minutes: 30
[2019-07-03] MEDS: COLCHICINE 0.6 MG TABLET PO SCH (10:06)
[2019-07-03] MEDS: GUAIFENESIN 600 MG TABLET.SA PO SCH (10:06)
[2019-07-03] MEDS: ALPRAZOLAM 0.5 MG TABLET PO PRN (10:06)
[2019-07-03] MEDS: APIXABAN 2.5 MG TABLET PO SCH (10:06)
[2019-07-03] MEDS: BUSPIRONE HCL 10 MG TABLET PO SCH (10:07)
[2019-07-03] MEDS: SACUBITRIL/VALSARTAN 49 MG/51 MG TABLET PO SCH (10:07)
[2019-07-03] MEDS: FAMOTIDINE 20 MG TABLET PO SCH (10:07)
[2019-07-03] MEDS: METOPROLOL SUCCINATE 25 MG TAB.SR.24H PO SCH (10:07)
[2019-07-03] MEDS ORDERED: MORPHINE SULFATE 10 MG/ML INJ IV PRN (10:36)
--- NOTE | 2019-07-03 10:41 | RADIOLOGY REPORT (SQ) ---
EXAM DESCRIPTION: COOKIE SWALLOW IMAGES COMPLETED DATE/TIME: 07/03/2019 9:41 am REASON FOR STUDY: recurrent pneumonia COMPARISON: None. TECHNIQUE: Videofluoroscopic swallowing examination was performed in conjunction with speech patholo gy. Videofluoroscopic imaging was obtained and reviewed and these are the findings: RADIATION DOSE: Fluoro time 1.54 minutes 1 images saved to PACS. LIMITATIONS: None FINDINGS: The patient was brought into the fluoro room and placed upright on a modified barium swall ow chair. The patient was then given multiple consistencies mixed with barium to swallow under live fluoroscopic video guidance. According to the Speech Pathologist there was no penetration or aspirat ion. Please refer to speech pathology report for further details. IMPRESSION: NO EVIDENCE OF PENETRATION OR ASPIRATION. PLEASE SEE SPEECH PATHOLOGIST REPORT FOR OTHER FINDINGS AND RECOMMENDATIONS. COMMENT: None Quality ID [id number]: Final reports for procedures using fluoroscopy that document radiation exposure stevo maya, or exposure time and number of fluorographic images (if radiation exposure indices are not avail able) TECHNICAL DOCUMENTATION: JOB ID: [id number] 2010 [employer]- All Rights Reserved Reading location - IP/workstation name: [email or web address]
[2019-07-03 11:14] VITALS: BP 107/70
--- NOTE | 2019-07-03 13:26 | PDOC DISCHARGE SUMMARY ---
Impression - Admit/DC Date/PCP Admission Date/Primary Care Provider: 06/24/19 07:00 YI SHANNON MD Discharge Date: 07/03/19 - Discharge Diagnosis (1) Acute and chronic respiratory failure with hypoxia Is this a current diagnosis for this admission?: Yes (2) Acute on chronic systolic (congestive) heart failure Is this a current diagnosis for this admission?: Yes (3) Acute renal failure superimposed on chronic kidney disease Is this a current diagnosis for this admission?: Yes (4) CAD (coronary artery disease) Is this a current diagnosis for this admission?: Yes (5) Cardiomyopathy Is this a current diagnosis for this admission?: Yes (6) Depression with anxiety Is this a current diagnosis for this admission?: Yes (7) Longstanding persistent atrial fibrillation Is this a current diagnosis for this admission?: Yes (8) Right knee pain Is this a current diagnosis for this admission?: Yes (9) Gout flare Is this a current diagnosis for this admission?: Yes - Additional Information Resuscitation Status: Full Code Discharge Diet: Cardiac Discharge Activity: Activity As Tolerated, Balance Activity w/Rest, Weigh Daily Referrals: ANGIE CARRERO MD [ACTIVE STAFF] - (Follow up within 1 week. LEFT A MESSAGE WITH DOCTOR'S OFFICE FOR FOLLOW APPT.) YI SANCHEZ DO [NO LOCAL MD] - 07/09/19 11:00 am Prescriptions: Colchicine [Colcrys 0.6 mg Tablet] 0.6 mg PO Q12 #14 tablet Furosemide [Lasix 20 mg Tablet] 20 mg PO QAM #30 tablet Guaifenesin [Mucinex Sr 600 mg Tablet.sa] 600 mg PO Q12 #14 tablet.sa Oxycodone HCl/Acetaminophen [Percocet 5-325 mg Tablet] 2 tab PO Q4HP PRN #20 tablet PRN Reason: Temazepam [Restoril 15 mg Capsule] 15 mg PO HSP PRN #30 capsule PRN Reason: Home Medications: Alprazolam [Xanax 0.5 mg Tablet] 0.5 mg PO Q6HP PRN 02/08/19 Atorvastatin Calcium [Lipitor 80 mg Tablet] 80 mg PO QHS 02/08/19 Buspirone HCl [Buspar 10 mg Tablet] 10 mg PO BID 02/08/19 Paroxetine HCl [Paxil 20 mg Tablet] 20 mg PO DAILY 02/08/19 Famotidine [Pepcid 20 mg Tablet] 20 mg PO Q12 #60 tablet 03/23/19 Apixaban [Eliquis 2.5 mg Tablet] 2.5 mg PO BID #60 tablet 04/16/19 Metoprolol Succinate [Toprol Xl 25 mg Tab.sr] 25 mg PO Q12 #60 tab.sr.24h 05/29/19 Sacubitril/Valsartan [Entresto 49 mg/51 mg Tablet] 1 tab PO BID #30 tablet 05/29/19 Oxycodone HCl/Acetaminophen [Percocet 7.5-325 mg Tablet] 1 each PO Q6HP PRN 06/24/19 Acetaminophen [Tylenol 325 mg Tablet] 650 mg PO Q4HP PRN tablet 07/03/19 Apixaban [Eliquis 2.5 mg Tablet] 2.5 mg PO Q12 #0 tablet 07/03/19 Buspirone HCl [Buspar 10 mg Tablet] 10 mg PO Q12 #0 tablet 07/03/19 Colchicine [Colcrys 0.6 mg Tablet] 0.6 mg PO Q12 #14 tablet 07/03/19 Famotidine [Pepcid 20 mg Tablet] 20 mg PO Q12 tablet 07/03/19 Furosemide [Lasix 20 mg Tablet] 20 mg PO QAM #30 tablet 07/03/19 Guaifenesin [Mucinex Sr 600 mg Tablet.sa] 600 mg PO Q12 #14 tablet.sa 07/03/19 Metoprolol Succinate [Toprol Xl 25 mg Tab.sr] 25 mg PO Q12 tab.sr.24h 07/03/19 Oxycodone HCl/Acetaminophen [Percocet 5-325 mg Tablet] 2 tab PO Q4HP PRN #20 tablet 07/03/19 Sacubitril/Valsartan [Entresto 49 mg/51 mg Tablet] 1 tab PO BID tablet 07/03/19 Temazepam [Restoril 15 mg Capsule] 15 mg PO HSP PRN #30 capsule 07/03/19 History of Present Illiness History of Present Illness: Per H&P by ASHWIN SantanaC: 48 year old female with a PMH of afib, CAD, CHF, stage III kidney disease COPD, respiratory failure with multiple admissions with intubations. Presented to the ER via EMS with Respiratory distress. Enroute to the ER pt went into VT rate of 190's she was cardioverted x 1 and returned to NSR. Upon arrival to the ED she was on bipap her RR was in the 30's SPO2 was 100%. She had increased WOB and was subsequently intubated with an 8.0 ETT at 22 cm at the teeth. She is admitted to the ICU with acute on chronic respiratory failure. Hospital Course Hospital Course: (1) Acute and chronic respiratory failure with hypoxia 06/30/2019 The patient was admitted on June 23 and immediately intubated. She was extubated I believe on 26 June. Today she is on BiPAP. Late morning she is going to take BiPAP mask off for lunch could not find her nasal cannula as described above. She is dependent on oxygen and we will work towards her baseline oxygen supplement which I believe is 2 to 3 L by nasal cannula. The most likely cause of her failure is her congestive heart failure. 07/01/2019 The patient appears to be stable on nasal cannula at her baseline oxygen suppl ementation. I believe she did use the BiPAP for some of last night. Her breathing is getting back to baseline. She does report coughing up some green- colored sputum. For culture to be obtained. Because she is afebrile and has a white blood cell count I will not administer antibiotics at this time. 07/02/2019 Currently on BiPAP; patient reports that her work of breathing is significantly improved, she is noted to be slightly tachypneic with bilateral rhonchi. She admits to continued cough and increase sputum production, however, has not yet sent sputum sample. She remains afebrile with normal WBC. Overall it appears that her respiratory status is gradually improving and nearing her baseline function. Will start as needed nebulizer treatments. Start Mucinex twice daily. Encourage pulmonary toilet with incentive spirometer and flutter valve. 07/03/2019 Acute exacerbation now resolved. PAtient expectorated a large amount of sputum this morning. Now with clear lung sounds. Per patient, has returned to her baseline work of breathing/comfort. (2) Acute on chronic systolic (congestive) heart failure 06/30/2019 The patient is on her Entresto. Based on her pulse and blood pressure we will be looking to add back metoprolol and furosemide. She has continued in a negative fluid balance since admission with only a single dose of furosemide at the time of admission. We will likely resume furosemide daily dosing. I have consulted Dr. Carrero who is her histopathologist. 07/01/2019 She appears to be back at baseline. Continue current meds. 07/02/2019 Cardiology is consulted; appreciate Dr. Ragsdale's evaluation and assistance. Medications per Dr. Ragsdale's expertise. Currently on Entresto, Metoprolol, Eliquis, and Atorvastatin. Cardiac diet. Daily weights, strict I&Os 07/03/19 Acute exacerbation has resolved. Discussed with Dr. Ragsdale; to follow up in the office in 1 week. (3) Acute renal failure superimposed on chronic kidney disease 06/30/2019 Serum creatinine is in the normal range and GFR is greater than 60. This is improved from admission. It is also much better historically since prior to April of this year her GFR was typically between 30 and 60. 07/01/2019 Her GFR is greater than 60. In March she achieved normal renal function as well. For most of 2018 she had compromised renal function and so hopefully this will be her new baseline. 07/02/2019 Resolved; now at baseline renal function with Cr 1.17/BUN 6 Avoid nephrotoxic medications as able. Follow up chemistry. 07/03/2019 Resolved. (4) CAD (coronary artery disease) Continue home dose Eliquis and atorvastatin. Cardiac diet. (5) Cardiomyopathy 06/30/2019 Etiology is multifactorial including cocaine, alcohol and coronary disease with hyperlipidemia. 07/01/2019 No changes to the regimen at this time 07/02/2019 Evaluation and medication as above. 07/03/2019 Stable. (6) Depression with anxiety 06/30/2019 Continue BuSpar and Paxil 07/01/2019 Continue current meds 07/02/2019 Continue home BusPar, Paxil, Restoril and home dose Xanax. 07/03/2019 As above. (7) Longstanding persistent atrial fibrillation 06/30/2019 Currently in sinus rhythm. Apixaban has been restarted. We will restart metoprolol when the blood pressure and pulse allow. 07/01/2019 Continue anticoagulation cardiac medications 07/02/2019 Rate controlled on Toprol-XL 25 mg twice daily. Continue renally dosed Eliquis. 07/03/2019 As above. (8) Right knee pain 06/30/2019 There is obvious swelling likely fluid in the right knee. I will obtain x-rays. The patient is afebrile at this time. Consider orthopedic consult. If her white count is elevated or if her temperature increases we will obtain blood cultures as well. Narcotic analgesia for now. With her underlying kidney and heart disease we will try and avoid nonsteroidal anti-inflammatory medications. 07/01/2019 There is now some swelling in her foot. I have asked orthopedic surgery to assess her knee. She does have a history of gout. She is on anticoagulant therapy and hemarthrosis is a possibility. 07/02/2019 Secondary to Gout. Orthopedics was consulted; appreciate Dr. Easley's assistance. Gram stain and culture negative to date. Synovial fluid positive for monosodium Urate. Continue twice daily colchicine. Monitor renal function. Analgesics as needed. 07/03/2019 Discharged on p.o. Indomethacin TID x 4 days as Medicaid does not cover colchicine. (9) Gout flare As above. Physical Exam Vital Signs: Temp Pulse Resp BP Pulse Ox 97.4 F 59 L 16 107/70 97 07/03/19 11:13 07/03/19 11:13 07/03/19 11:13 07/03/19 11:13 07/03/19 11:13 Intake & Output 07/02/19 07/03/19 07/04/19 06:59 06:59 06:59 Output Total 300 1500 Balance -300 -1500 Weight 105 kg 105 kg General appearance: PRESENT: no acute distress, cooperative, morbidly obese, well-developed, well-nourished Head exam: PRESENT: atraumatic, normocephalic Eye exam: PRESENT: conjunctiva pink, EOMI, PERRLA. ABSENT: scleral icterus Ear exam: PRESENT: normal external ear exam Mouth exam: PRESENT: moist, tongue midline Respiratory exam: PRESENT: clear to auscultation renu, prolonged expiratory phas, symmetrical, other - baseline supplemental oxygen. ABSENT: rales, rhonchi, wheezes Cardiovascular exam: PRESENT: RRR, +S1, +S2. ABSENT: diastolic murmur, rubs, systolic murmur Pulses: PRESENT: normal dorsalis pedis pul Vascular exam: PRESENT: normal capillary refill Rectal exam: PRESENT: deferred Extremities exam: PRESENT: full ROM, pedal edema - trace bilaterally, tenderness - right knee pain. ABSENT: calf tenderness, clubbing Neurological exam: PRESENT: alert, awake, oriented to person, oriented to place, oriented to time, oriented to situation, CN II-XII grossly intact. ABSENT: motor sensory deficit Psychiatric exam: PRESENT: appropriate affect, normal mood. ABSENT: homicidal ideation, suicidal ideation Skin exam: PRESENT: dry, intact, warm. ABSENT: cyanosis, rash Results Laboratory Results: WBC 3.6 10^3/uL (4.0-10.5) L 07/03/19 05:25 RBC 3.19 10^6/uL (3.72-5.28) L 07/03/19 05:25 Hgb 9.9 g/dL (12.0-15.5) L 07/03/19 05:25 Hct 29.4 % (36.0-47.0) L 07/03/19 05:25 MCV 92 fl (80-97) 07/03/19 05:25 MCH 30.9 pg (27.0-33.4) 07/03/19 05:25 MCHC 33.5 g/dL (32.0-36.0) 07/03/19 05:25 RDW 16.8 % (11.5-14.0) H 07/03/19 05:25 Plt Count 327 10^3/uL (150-450) 07/03/19 05:25 Lymph % (Auto) 25.4 % (13-45) 07/02/19 04:40 [place] % (Auto) 11.4 % (3-13) 07/02/19 04:40 Eos % (Auto) 1.7 % (0-6) 07/02/19 04:40 Baso % (Auto) 1.0 % (0-2) 07/02/19 04:40 Absolute Neuts (auto) 2.8 10^3/uL (1.7-8.2) 07/02/19 04:40 Absolute Lymphs (auto) 1.2 10^3/uL (0.5-4.7) 07/02/19 04:40 Absolute Monos (auto) 0.5 10^3/uL (0.1-1.4) 07/02/19 04:40 Absolute Eos (auto) 0.1 10^3/uL (0.0-0.6) 07/02/19 04:40 Absolute Basos (auto) 0.0 10^3/uL (0.0-0.2) 07/02/19 04:40 Seg Neutrophils % 60.5 % (42-78) 07/02/19 04:40 ESR 77 mm/hr (0-20) H 06/30/19 13:20 PT 16.8 SEC (11.4-15.4) H 06/27/19 04:10 INR 1.35 06/27/19 04:10 APTT 36.1 SEC (23.5-35.8) H 06/27/19 04:10 Carbonic Acid 1.10 mmol/L (1.05-1.35) 06/27/19 15:30 HCO3/H2CO3 Ratio 23:1 06/27/19 15:30 ABG pH 7.47 (7.35-7.45) H 06/27/19 15:30 ABG pCO2 36.7 mmHg (35-45) 06/27/19 15:30 ABG pO2 43.7 mmHg (80-100) L 06/27/19 15:30 ABG HCO3 25.9 mmol/L (20-24) H 06/27/19 15:30 ABG Total CO2 27.0 mmol/L (21-25) H 06/27/19 15:30 ABG O2 Saturation 82.7 % (94-98) L 06/27/19 15:30 ABG Base Excess 2.2 mmol/L 06/27/19 15:30 FiO2 30% 06/27/19 15:30 Sodium 140.0 mmol/L (137-145) 07/03/19 05:25 Potassium 3.9 mmol/L (3.6-5.0) 07/03/19 05:25 Chloride 104 mmol/L (98-107) 07/03/19 05:25 Carbon Dioxide 31 mmol/L (22-30) H 07/03/19 05:25 Anion Gap 5 (5-19) 07/03/19 05:25 BUN 7 mg/dL (7-20) 07/03/19 05:25 Creatinine 1.19 mg/dL (0.52-1.25) 07/03/19 05:25 Est GFR ( Amer) 59 (>60) L 07/03/19 05:25 Est GFR (Non-Af Amer) Cancelled 06/24/19 04:00 Est GFR (MDRD) Non-Af 49 (>60) L 07/03/19 05:25 Glucose 102 mg/dL (75-110) 07/03/19 05:25 POC Glucose 335 mg/dL (70-110) H 06/24/19 02:34 Lactic Acid 0.7 mmol/L (0.7-2.1) 06/24/19 10:48 Uric Acid 5.0 mg/dL (2.5-7.5) 07/01/19 04:50 Calcium 8.9 mg/dL (8.4-10.2) 07/03/19 05:25 Phosphorus 3.8 mg/dL (2.5-4.5) 06/27/19 04:10 Magnesium 2.1 mg/dL (1.6-2.3) 07/01/19 04:50 Total Bilirubin 1.5 mg/dL (0.2-1.3) H 06/27/19 04:10 Direct Bilirubin 0.3 mg/dL (0.0-0.4) 06/27/19 04:10 Neonat Total Bilirubin Not Reportable 06/27/19 04:10 Neonat Direct Bilirubin Not Reportable 06/27/19 04:10 Neonat Indirect Bili Not Reportable 06/27/19 04:10 AST 15 U/L (14-36) 06/27/19 04:10 ALT 8 U/L (<35) 06/27/19 04:10 Alkaline Phosphatase 65 U/L (38-126) 06/27/19 04:10 Troponin I 0.084 ng/mL 06/24/19 04:58 NT-Pro-B Natriuret Pep 1340 pg/mL (<125) H 06/27/19 15:38 Total Protein 6.0 g/dL (6.3-8.2) L 06/27/19 04:10 Albumin 3.0 g/dL (3.5-5.0) L 06/27/19 04:10 Triglycerides 171 mg/dL (<150) H 06/27/19 04:10 EGFR Cancelled 06/24/19 04:00 Urine Color MARKO 06/24/19 04:00 Urine Appearance CLOUDY 06/24/19 04:00 Urine pH 6.0 (5.0-9.0) 06/24/19 04:00 Ur Specific [place] 1.015 06/24/19 04:00 Urine Protein >=500 mg/dL (NEGATIVE) H 06/24/19 04:00 Urine Glucose (UA) 50 mg/dL (NEGATIVE) H 06/24/19 04:00 Urine Ketones NEGATIVE mg/dL (NEGATIVE) 06/24/19 04:00 Urine Blood SMALL (NEGATIVE) H 06/24/19 04:00 Urine Nitrite (Reflex) NEGATIVE (NEGATIVE) 06/24/19 04:00 Urine Bilirubin NEGATIVE (NEGATIVE) 06/24/19 04:00 Urine Urobilinogen 2.0 mg/dL (<2.0) H 06/24/19 04:00 Leukocyte Esterase Rfl NEGATIVE (NEGATIVE) 06/24/19 04:00 Urine RBC (Auto) 9 /HPF 06/24/19 04:00 U Hyaline Cast (Auto) 20 /LPF 06/24/19 04:00 Urine Bacteria (Auto) TRACE /HPF 06/24/19 04:00 Urine WBC (Reflex) 19 /HPF 06/24/19 04:00 Urine WBC Clumps FEW /HPF 06/24/19 04:00 Squamous Epi Cells Auto 3 /HPF 06/24/19 04:00 Urine Mucus (Auto) FEW /LPF 06/24/19 04:00 Urine Ascorbic Acid NEGATIVE (NEGATIVE) 06/24/19 04:00 Fluid Type SYNOVIAL 07/01/19 17:30 Fluid Type SYNOVIAL 07/01/19 17:30 Fluid Source KNEE 07/01/19 17:30 Fluid Color YELLOW 07/01/19 17:30 Fluid Appearance HAZY 07/01/19 17:30 Fluid Viscosity LIQUID 07/01/19 17:30 Fluid WBC 2367 /uL 07/01/19 17:30 Fluid RBC 233 /uL 07/01/19 17:30 Fluid Seg Neutrophils 98 % 07/01/19 17:30 Fluid Lymphocytes 2 % 07/01/19 17:30 Fluid Monocytes 0 % 07/01/19 17:30 Fluid Eosinophils 0 % 07/01/19 17:30 Fluid Basophils 0 % 07/01/19 17:30 Fluid Crystals NONE OBSERVED 07/01/19 17:30 Fluid Crystal Source RIGHT KNEE 07/01/19 17:30 Ca Pyrophosphate Cryst NONE OBSERVED 07/01/19 17:30 Synov Monosodium Urate INTRACELLULAR 07/01/19 17:30 COVID-19 Source NASOPHARYNGEAL 06/24/19 07:21 COVID-19 (DHRUV) NOT DETECTED 06/24/19 07:21 06/24/19 06/24/19 06/24/19 04:00 04:58 04:58 Troponin I Cancelled 0.084 NT-Pro-B Natriuret Pep 76670 H 06/24/19 06/27/19 13:30 15:38 Troponin I NT-Pro-B Natriuret Pep 8010 H 1340 H Impressions: Chest X-Ray 06/24/19 00:00 IMPRESSION: 1. NG tube terminates in the distal esophagus near the GE junction, recommend advancement as above. 2. New ET tube appears in good position. 3. Otherwise no significant change. Chest X-Ray 06/24/19 11:18 IMPRESSION: STABLE APPEARANCE OF THE CHEST. SUPPORT DEVICES UNCHANGED. Chest X-Ray 06/28/19 00:00 IMPRESSION: 1. Stable appearance of the chest. Knee X-Ray 06/30/19 00:00 IMPRESSION: Large joint effusion. Osteopenia and DJD. Chest X-Ray 07/02/19 06:00 IMPRESSION: Status post extubation and removal of the enteric tube. The radiographic appearance of the chest is otherwise unchanged with cardiomegaly and basilar bilateral interstitial opacities. Clinical correlation for signs and symptoms of CHF/ interstitial edema is recommended. Modified Barium Swallow 07/03/19 00:00 IMPRESSION: NO EVIDENCE OF PENETRATION OR ASPIRATION. PLEASE SEE SPEECH PATHOLOGIST REPORT FOR OTHER FINDINGS AND RECOMMENDATIONS. Plan Plan of Treatment: Patient is discharged home in stable condition. We will resume home health nursing services upon discharge. Recommend outpatient cardiopulmonary rehabilitation. Patient to follow-up with Dr. Jeronimo within 1 week and with her primary care provider at the earliest available appointment. She is advised to take her medications as prescribed. Continue cardiac diet, daily weights. Return to the emergency department as needed for concerning symptoms. Time Spent: Greater than 30 Minutes Stroke Is this a Stroke Patient?: No Acute Heart Failure - Is this a Heart Failure Patient?: Yes Documentation of LVEF assessment?: Yes LVEF < 40%?: Yes-if yes answer questions a through e a) Discharged on ACEI?: N/A Discharged on ARNI b) Discharges on ARB?: N/A-Discharged on ARNI c) Discharged on ARNI?: Yes d) Discharged on evidence-based Beta rip(carvedilol, sustained release metoprolol succinate, or bisoprolol)?: Yes e) For LVEF <35%, discharged on Aldosterone antagonist?: No-document contraincations - Medications per [employer]. 3. Anticoagulant therapy for permanect/persistent/paraoxysmal Afib or Aflutter: Yes Follow-up Appointment scheduled within 7 days?: Yes
== END 2019-07-03 12:39 | disposition home or self-care (01) | DRG 207 ==
LOC: ER 02:28 → EH 07:00 → ICU 08:48 → 4S 06-29 14:09
PROVIDERS: ADMIT Hospitalist; ATTEND Registered Nurse
PROC: 5A1955Z Respiratory Ventilation, Greater than 96 Consecutive Hours (ICD-10-PCS; principal; 2019-06-25)
PROC: 0BH17EZ Insertion of Endotracheal Airway into Trachea, Via Natural or Artificial Opening (ICD-10-PCS; 2019-06-25)
PROC: 06HM33Z Insertion of Infusion Device into Right Femoral Vein, Percutaneous Approach (ICD-10-PCS; 2019-06-25)
PROC: 0S9C3ZX Drainage of Right Knee Joint, Percutaneous Approach, Diagnostic (ICD-10-PCS; 2019-07-01)
DX: J96.21 Acute and chronic respiratory failure with hypoxia (principal); I50.23 Acute on chronic systolic (congestive) heart failure; I13.0 Hypertensive heart and chronic kidney disease with heart failure and stage 1 through stage 4 chronic kidney disease, or unspecified chronic kidney disease; N17.9 Acute kidney failure, unspecified; I48.11 Longstanding persistent atrial fibrillation; N18.3 Chronic kidney disease, stage 3 (moderate); M10.061 Idiopathic gout, right knee; I25.119 Atherosclerotic heart disease of native coronary artery with unspecified angina pectoris; M25.561 Pain in right knee; G47.33 Obstructive sleep apnea (adult) (pediatric); F41.8 Other specified anxiety disorders; Z20.818 Contact with and (suspected) exposure to other bacterial communicable diseases; Z79.01 Long term (current) use of anticoagulants; Z79.899 Other long term (current) drug therapy
CPT/HCPCS: 36415; 51702; 71045; 74230; 80048; 80053; 81001; 82803; 82962; 83605; 83735; 83880; 84100; 84478; 84484; 84550; 85025; 85027; 85610; 85652; 85730; 87040; 87070; 87075; 87077; 87086; 87150; 87186; 87205; 87635; 89050; 89060; 93005; 93010; 94002; 94003; 94640; 94660; 94667; 94799; 96361; 96365; 99285; 99291; C9113; J0295; J0330; J1642; J1940; J2250; J2270; J2543; J2704; J3475; J3480; J3490; J7030; J7050

== ENCOUNTER 2019-07-09 19:32 | Inpatient (IN) | payer MEDICAID ==
--- NOTE | 2019-07-09 21:23 | RADIOLOGY REPORT (SQ) ---
EXAM DESCRIPTION: AP portable view of the chest CLINICAL HISTORY: 48 years Female, SOB COMPARISON: Portable view of the chest 07/02/2019 FINDINGS: Lungs: Groundglass opacification is present in the mid and lower lung zones. The appearance is similar to the previous examination. No pneumothorax or pleural effusion. Mediastinum: Cardiac and mediastinal silhouette remain enlarged. ICD device is in place with 3-channel device. There is postoperative change of median sternotomy. Pacemaker. Bones: Sternal wires are intact IMPRESSION: Parenchymal opacification in the mid and lower lung zones with cardiomegaly. Overall the appearance is stable.
[2019-07-09 21:26] LABS: ABSOLUTE BASOPHILS # (AUTO) 0.1 10^3/uL (0.0-0.2); ABSOLUTE MONOCYTES (AUTO) 0.4 10^3/uL (0.1-1.4); ABSOLUTE NEUT (AUTO) 3.6 10^3/uL (1.7-8.2); BASOPHILS % (AUTO) 1.3 % (0-2); EOSINOPHILS % (AUTO) 0.2 % (0-6); HEMATOCRIT 30.9 % (36.0-47.0); LYMPHOCYTES % (AUTO) 19.4 % (13-45); MEAN CORPUSCULAR HGB CONC 32.5 g/dL (32.0-36.0); MEAN CORPUSCULAR VOLUME 92 fl (80-97); MONOCYTES % (AUTO) 7.1 % (3-13); PLATELET COUNT 331 10^3/uL (150-450); RED BLOOD COUNT 3.35 10^6/uL (3.72-5.28); RED CELL DISTRIBUTION WIDTH 16.8 % (11.5-14.0); TOTAL CELLS COUNTED % (AUTO) 100 %
[2019-07-09 21:41] LABS: ALBUMIN 4.3 g/dL (3.5-5.0); ALKALINE PHOSPHATASE 179 U/L (38-126); ANION GAP 12 (5-19); ASPARTATE AMINO TRANSFERASE 28 U/L (14-36); BILIRUBIN,DIRECT 1.2 mg/dL (0.0-0.4); BILIRUBIN,TOTAL 2.9 mg/dL (0.2-1.3); BLOOD UREA NITROGEN 18 mg/dL (7-20); CALCIUM 9.4 mg/dL (8.4-10.2); CARBON DIOXIDE 20 mmol/L (22-30); CHLORIDE 106 mmol/L (98-107); CREATINE KINASE 56 U/L (30-135); GLUCOSE 119 mg/dL (75-110); POTASSIUM 4.6 mmol/L (3.6-5.0); TOTAL PROTEIN 7.9 g/dL (6.3-8.2)
--- NOTE | 2019-07-09 21:49 | ER Document Report ---
ED Respiratory Problem - General Chief Complaint: Shortness Of Breath Stated Complaint: SHORTNESS OF BREATH Time Seen by Provider: 07/09/19 21:26 Notes: Patient is a 48-year-old female presents emergency department with a chief complaint of shortness of breath. Patient states that her shortness of breath is gotten progressively worse over the past week. Patient also reports some chest pain on the left side of her chest. Patient has a history of congestive heart failure, COPD, oxygen dependency, CHF, an VT in the past, bipolar disorder, schizophrenia, chronic kidney disease, hypertension, and AICD placement in 2006. Patient wears CPAP at home. Patient is requesting a CPAP at time of assessment. Patient states that this feels similar to her CHF exacerbations that she has in the past. Patient was recently admitted and tested for COVID-19 and this was negative on June 23. TRAVEL OUTSIDE OF THE [place] IN LAST 30 DAYS: No - Related Data Allergies/Adverse Reactions: egg [Egg] Allergy (Verified 07/09/19 20:06) propoxyphene [From Darvocet-N] Allergy (Verified 07/09/19 20:06) amiodarone Adverse Reaction (Verified 07/09/19 20:06) Respiratory distress diphenhydramine HCl [From Benadryl] Adverse Reaction (Verified 07/09/19 20:06) chest pain, bigemeny rhythm Past Medical History - Social History Smoking Status: Former Smoker Family History: Reviewed & Not Pertinent, CAD, CVA, DM, Hypertension, Malignancy, Other - Kidney disease Patient has homicidal ideation: No - Past Medical History Cardiac Medical History: Reports: Hx Atrial Fibrillation, Hx Congestive Heart Failure, Hx Coronary Artery Disease, Hx Heart Attack, Hx Hypercholesterolemia, Hx Hypertension Denies: Hx DVT, Hx Pulmonary Embolism Pulmonary Medical History: Reports: Hx Bronchitis, Hx COPD, Hx Pneumonia, Hx Intubation, Hx Respiratory Failure, Hx Sleep Apnea Denies: Hx Asthma Neurological Medical History: Denies: Hx Cerebrovascular Accident, Hx Seizures Endocrine Medical History: Denies: Hx Diabetes Mellitus Type 1, Hx Diabetes Mellitus Type 2, Hx Hyperthyroidism, Hx Hypothyroidism Renal/ Medical History: Reports: Hx Kidney Stones, Hx Renal Insufficiency. Denies: Hx Peritoneal Dialysis GI Medical History: Reports: Hx Gastroesophageal Reflux Disease. Denies: Hx Cirrhosis, Hx Crohn's Disease, Hx Hepatitis, Hx Hiatal Hernia, Hx Ulcer, Hx Ulcerative Colitis Musculoskeletal Medical History: Denies Hx Arthritis, Denies Hx Gout Skin Medical History: Denies Hx Eczema, Denies Hx Psoriasis Psychiatric Medical History: Reports: Hx Anxiety, Hx Depression, Hx Schizophrenia Infectious Medical History: Reports: Hx MRSA - And sputum on last admission.. Denies: Hx Hepatitis Past Surgical History: Reports: Hx Cardiac Catheterization - multiple, Hx Cardiac Surgery - pacemaker/icd, Hx Section, Hx Coronary Artery Bypass Graft - 2006, Hx Coronary Stent - Multiple, Hx Hysterectomy, Hx Open Heart Surgery - BYPASS 2006, Hx Pacemaker - AICD, Hx Tubal Ligation. Denies: Hx Mastectomy - Immunizations Hx Diphtheria, Pertussis, Tetanus Vaccination: Yes Hx Pneumococcal Vaccination: 04/04/12 Review of Systems - Review of Systems Notes: REVIEW OF SYSTEMS: CONSTITUTIONAL : Denies recent illness. Denies recent unintentional weight loss. Denies fever, chills, or sweats. EENT: Denies eye, ear, throat, or mouth pain, discharge, or symptoms. Denies nasal or sinus congestion. CARDIOVASCULAR: See HPI. RESPIRATORY: See HPI. GASTROINTESTINAL: Denies nausea, vomiting, and diarrhea. Denies abdominal pain. Denies constipation. GENITOURINARY: Denies difficulty urinating, burning, blood in urine, urgency or frequency. MUSCULOSKELETAL: Denies neck and back pain. Denies joint pain or swelling. SKIN: Denies rash, itchiness, or lesions HEMATOLOGIC : Denies easy bruising or bleeding. LYMPHATIC: Denies swollen, painful, enlarged glands. NEUROLOGICAL: Denies no numbness or tingling denies weakness. Denies headache. Denies altered mental status. Denies alteration in speech. PSYCHIATRIC: Denies stress, anxiety, alteration in sleep patterns, or depression. All other systems reviewed and negative. Physical Exam - Vital signs Vitals: Pulse Resp BP Pulse Ox 74 22 H 150/96 H 92 07/09/19 19:51 07/09/19 19:51 07/09/19 19:51 07/09/19 19:51 - Notes Notes: PHYSICAL EXAMINATION: GENERAL: Appears well, healthy, well-nourished, no acute distress. HEAD: Normocephalic, atraumatic. EYES: PERRL, conjunctiva normal, all extraocular movements intact, sclera nonicteric ENT: Moist mucous membranes. NECK: Supple, no noticeable swelling, redness, rash. Normal range of motion. LUNGS: Crackles noted to bilateral bases of lungs. CARDIOVASCULAR: S1-S2, regular rate, regular rhythm. Radial pulses 2+, normal. ABDOMEN: Normoactive bowel sounds. Soft, nontender, no guarding, no rebound tenderness, and no masses palpated. EXTREMITIES: Normal strength and range of motion, 2+ pitting edema to bilateral lower extremities. No cyanosis. NEUROLOGICAL: Moves all extremities upon command. Strength 5/5 in all extremities. PSYCH: Normal mood, normal affect. SKIN: Warm, dry. No rash, lesions, ulcerations noted. Normal skin turgor. Course - Re-evaluation Re-evalutation: 07/10/19 00:55 Hematology does not show a leukocytosis. Hemoglobin hematocrit are stable. Patient's creatinine is her normal at 1.35. Her BNP is 23,800, congruent with an acute on chronic CHF exacerbation. Chest x-ray also appears not she is fluid overloaded prior to Bumex. Patient states that she feels better after receiving Bumex and after being put on CPAP. I spoke with Dr. Ku, the hospitalist on- call. He would like to have the second troponin result before admitting the patient to the hospital. I am in agreement with this plan. 07/10/19 01:39 Patient second troponin is resulted. Dr. Ku has put in admission orders for the patient. Patient will be admitted to the telemetry floor. - Vital Signs Vital signs: Temp Pulse Resp BP Pulse Ox 98.3 F 69 18 139/88 H 100 07/10/19 10:49 07/10/19 14:00 07/10/19 10:49 07/10/19 10:49 07/10/19 10:49 - Laboratory Result Diagrams: 07/09/19 21:15 07/10/19 05:12 Laboratory results interpreted by me: 07/09/19 07/09/19 07/09/19 21:15 21:15 21:15 RBC 3.35 L Hgb 10.0 L Hct 30.9 L RDW 16.8 H Retic Count (auto) Carbon Dioxide 20 L Creatinine 1.35 H Est GFR ( Amer) 51 L Est GFR (MDRD) Non-Af 42 L Glucose 119 H Ferritin Total Bilirubin 2.9 H Direct Bilirubin 1.2 H Alkaline Phosphatase 179 H NT-Pro-B Natriuret Pep 55558 H TSH 07/09/19 07/09/19 07/10/19 21:15 21:15 00:16 RBC Hgb Hct RDW Retic Count (auto) 3.51 H Carbon Dioxide Creatinine Est GFR ( Amer) Est GFR (MDRD) Non-Af Glucose Ferritin 181.00 H Total Bilirubin Direct Bilirubin Alkaline Phosphatase NT-Pro-B Natriuret Pep TSH 10.30 H 07/10/19 05:12 RBC Hgb Hct RDW Retic Count (auto) Carbon Dioxide Creatinine 1.43 H Est GFR ( Amer) 48 L Est GFR (MDRD) Non-Af 39 L Glucose Ferritin Total Bilirubin Direct Bilirubin Alkaline Phosphatase NT-Pro-B Natriuret Pep TSH Critical Care Note - Critical Care Note Total time excluding time spent on procedures (mins): 35 Comments: Critical care time spent obtaining history from patient or surrogate, discussions with consultants, development of treatment plan with patient or surrogate, evaluation of patient's response to treatment, examination of patient, ordering and performing treatments and interventions, ordering and review of laboratory studies, re-evaluation of patient's condition, ordering and review of radiographic studies and review of old charts Discharge - Discharge Clinical Impression: Shortness of breath CHF exacerbation Qualifiers: Heart failure type: systolic Qualified Code(s): I50.23 - Acute on chronic systolic (congestive) heart failure Condition: Fair Disposition: ADMITTED INPATIENT Admitting Provider: Kings (Hospitalist) Unit Admitted: Telemetry
[2019-07-09 21:53] LABS: CREATINE KINASE MB 0.84 ng/mL (<4.55)
[2019-07-09 21:57] LABS: TROPONIN I 0.035 ng/mL
[2019-07-09] MEDS ORDERED: FUROSEMIDE INJ/PF 40 MG/4 ML SDV IV ONE (22:00)
[2019-07-09] MEDS ORDERED: BUMETANIDE INJ/PF 1 MG/4 ML SDV IV ONE (22:02)
[2019-07-09] MEDS ORDERED: FUROSEMIDE INJ/PF 40 MG/4 ML SDV ONE (22:09)
[2019-07-09] MEDS ORDERED: ONDANSETRON 4 MG TAB.RAPDIS PO ONE (23:09)
[2019-07-10] MEDS ORDERED: MAG HYDROX/AL HYDROX/SIMETH SUSP 30 ML UDCUP PO PRN (01:07)
[2019-07-10] MEDS: ACETAMINOPHEN 325 MG TABLET PO PRN ×2 (03:20→17:07)
[2019-07-10 03:37] LABS: ABSOLUTE RETICS # 0.116 10^6/uL (0.028-0.122); RETICULOCYTE COUNT (AUTO) 3.51 % (0.66-2.85)
[2019-07-10 05:47] LABS: FOLATE 8.36 ng/mL (>2.76)
[2019-07-10] MEDS: HEPARIN SOD (PORCINE) 5,000 UNIT/ML 1 ML VIAL SUBCUT SCH ×2 (05:56→13:11)
--- NOTE | 2019-07-10 06:01 | PDOC H&P ---
History of Present Illness Admission Date/PCP: 07/10/19 01:24 YI SANCHEZ DO Patient complains of: Shortness of breath History of Present Illness: FRANKI DEL ROSARIO is a 48 year old female with a past medical history of coronary artery disease, status post coronary artery bypass graft in 2006, subsequent artery stenting, congestive heart failure with an ejection fraction of 20 to 25%, atrial fibrillation, AICD, COPD, CKD 3, GERD, depression, schizophrenia, mo rbid obesity, obstructive sleep apnea, cocaine and cannabis use. She presents with intractable shortness of breath 6 days after discharge from acute care hospitalization for multifactorial shortness of breath. She presents with tachypnea, shortness of breath and an elevated BNP. She is placed on supplemental oxygen, IV Lasix, CPAP and referred to the hospitalist for admission. Patient denies fever chills nausea vomiting or chest pain. She is unclear as to her medication regiment. She is unaware of dietary restriction. She admits improvement after initial treatment in the emergency department and is pain-free. Past Medical History Cardiac Medical History: Reports: Atrial Fibrillation, Congestive Heart Failure, Coronary Artery Disease, Myocardial Infarction, Hyperlipidema, Hypertension Denies: DVT, Pulmonary Embolism Pulmonary Medical History: Reports: Bronchitis, Chronic Obstructive Pulmonary Disease (COPD), Intubation, Pneumonia, Respiratory Failure, Sleep Apnea Denies: Asthma Neurological Medical History: Denies: Seizures Endocrine Medical History: Denies: Diabetes Mellitus Type 1, Diabetes Mellitus Type 2, Hyperthyroidism, Hypothyroidism GI Medical History: Reports: Gastroesophageal Reflux Disease Denies: Cirrhosis, Crohn's Disease, Hepatitis, Hiatal Hernia, Ulcerative Colitis Musculoskeltal Medical History: Denies: Arthritis, Gout Skin Medical History: Denies: Eczema, Psoriasis Psychiatric Medical History: Reports: Depression Hematology: Reports: Anemia - Chronic, Bleeding Tendencies - "On blood thinners" Infectious Medical History: Reports: Methicillin-Resistant Staph Aureus - And sputum on last admission. Past Surgical History Past Surgical History: Reports: Cardiac Catheterization - multiple, Section, Coronary Artery Bypass Graft - 2006, Coronary Stent - Multiple, Hysterectomy, Pacemaker - AICD, Tubal Ligation Denies: Mastectomy Social History Information Source: Patient, [facility] Records Smoking Status: Former Smoker Electronic Cigarette use?: No Frequency of Alcohol Use: Occasional Hx Recreational Drug Use: Yes Drugs: Cocaine, Marijuana Hx Prescription Drug Abuse: No - Advance Directive Resuscitation Status: Full Code Family History Family History: CAD, CVA, DM, Hypertension, Malignancy, Other - Kidney disease Parental Family History Reviewed: Yes Children Family History Reviewed: Yes Sibling(s) Family History Reviewed.: Yes Medication/Allergy Home Medications: Alprazolam [Xanax 0.5 mg Tablet] 0.5 mg PO Q6HP PRN 02/08/19 Atorvastatin Calcium [Lipitor 80 mg Tablet] 80 mg PO QHS 02/08/19 Buspirone HCl [Buspar 10 mg Tablet] 10 mg PO BID 02/08/19 Paroxetine HCl [Paxil 20 mg Tablet] 20 mg PO DAILY 02/08/19 Famotidine [Pepcid 20 mg Tablet] 20 mg PO Q12 #60 tablet 03/23/19 Apixaban [Eliquis 2.5 mg Tablet] 2.5 mg PO BID #60 tablet 04/16/19 Metoprolol Succinate [Toprol Xl 25 mg Tab.sr] 25 mg PO Q12 #60 tab.sr.24h 05/29/19 Sacubitril/Valsartan [Entresto 49 mg/51 mg Tablet] 1 tab PO BID #30 tablet 05/29/19 Oxycodone HCl/Acetaminophen [Percocet 7.5-325 mg Tablet] 1 each PO Q6HP PRN 06/24/19 Acetaminophen [Tylenol 325 mg Tablet] 650 mg PO Q4HP PRN tablet 07/03/19 Apixaban [Eliquis 2.5 mg Tablet] 2.5 mg PO Q12 #0 tablet 07/03/19 Buspirone HCl [Buspar 10 mg Tablet] 10 mg PO Q12 #0 tablet 07/03/19 Colchicine [Colcrys 0.6 mg Tablet] 0.6 mg PO Q12 #14 tablet 07/03/19 Famotidine [Pepcid 20 mg Tablet] 20 mg PO Q12 tablet 07/03/19 Furosemide [Lasix 20 mg Tablet] 20 mg PO QAM #30 tablet 07/03/19 Guaifenesin [Mucinex Sr 600 mg Tablet.sa] 600 mg PO Q12 #14 tablet.sa 07/03/19 Metoprolol Succinate [Toprol Xl 25 mg Tab.sr] 25 mg PO Q12 tab.sr.24h 07/03/19 Oxycodone HCl/Acetaminophen [Percocet 5-325 mg Tablet] 2 tab PO Q4HP PRN #20 tablet 07/03/19 Sacubitril/Valsartan [Entresto 49 mg/51 mg Tablet] 1 tab PO BID tablet 07/03/19 Temazepam [Restoril 15 mg Capsule] 15 mg PO HSP PRN #30 capsule 07/03/19 Allergies/Adverse Reactions: egg [Egg] Allergy (Verified 07/09/19 20:06) propoxyphene [From Darvocet-N] Allergy (Verified 07/09/19 20:06) amiodarone Adverse Reaction (Verified 07/09/19 20:06) Respiratory distress diphenhydramine HCl [From Benadryl] Adverse Reaction (Verified 07/09/19 20:06) chest pain, bigemeny rhythm Review of Systems Constitutional: ABSENT: chills, fever(s), headache(s), weight gain, weight loss Eyes: ABSENT: visual disturbances Ears: ABSENT: hearing changes Cardiovascular: ABSENT: chest pain, dyspnea on exertion, edema, orthropnea, palpitations Respiratory: ABSENT: cough, hemoptysis Gastrointestinal: ABSENT: abdominal pain, constipation, diarrhea, hematemesis, hematochezia, nausea, vomiting Genitourinary: ABSENT: dysuria, hematuria Musculoskeletal: ABSENT: joint swelling Integumentary: ABSENT: rash, wounds Neurological: ABSENT: abnormal gait, abnormal speech, confusion, dizziness, focal weakness, syncope Psychiatric: ABSENT: anxiety, depression, homidical ideation, suicidal ideation Endocrine: ABSENT: cold intolerance, heat intolerance, polydipsia, polyuria Hematologic/Lymphatic: ABSENT: easy bleeding, easy bruising Physical Exam Vital Signs: Temp Pulse Resp BP Pulse Ox 97.3 F 74 18 126/85 H 93 07/10/19 03:15 07/10/19 03:15 07/10/19 03:15 07/10/19 03:15 07/10/19 03:15 Intake & Output 07/08/19 07/09/19 07/10/19 11:59 11:59 11:59 Weight 106 kg General appearance: PRESENT: no acute distress, well-developed, well-nourished Head exam: PRESENT: atraumatic, normocephalic Eye exam: PRESENT: conjunctiva pink, EOMI, PERRLA. ABSENT: scleral icterus Ear exam: PRESENT: normal external ear exam Mouth exam: PRESENT: moist, tongue midline Neck exam: ABSENT: carotid bruit, JVD, lymphadenopathy, thyromegaly Respiratory exam: PRESENT: accessory muscle use, retraction, tachypnea. ABSENT: rales, rhonchi, wheezes Cardiovascular exam: PRESENT: RRR. ABSENT: diastolic murmur, rubs, systolic murmur Pulses: PRESENT: normal dorsalis pedis pul Vascular exam: PRESENT: normal capillary refill GI/Abdominal exam: PRESENT: normal bowel sounds, soft. ABSENT: distended, guarding, mass, organolmegaly, rebound, tenderness Rectal exam: PRESENT: deferred Extremities exam: PRESENT: full ROM, +1 edema. ABSENT: calf tenderness, clubbing, pedal edema Neurological exam: PRESENT: alert, awake, oriented to person, oriented to place, oriented to time, oriented to situation, CN II-XII grossly intact. ABSENT: motor sensory deficit Psychiatric exam: PRESENT: appropriate affect, normal mood. ABSENT: homicidal ideation, suicidal ideation Skin exam: PRESENT: dry, intact, warm. ABSENT: cyanosis, rash Results Laboratory Results: 07/09/19 21:15 07/09/19 21:15 07/09/19 07/09/19 07/09/19 21:15 21:15 21:15 WBC 5.0 RBC 3.35 L Hgb 10.0 L Hct 30.9 L MCV 92 MCH 30.0 MCHC 32.5 RDW 16.8 H Plt Count 331 Seg Neutrophils % 72.0 Retic Count (auto) 3.51 H Sodium 138.1 Potassium 4.6 Chloride 106 Carbon Dioxide 20 L Anion Gap 12 BUN 18 Creatinine 1.35 H Est GFR ( Amer) 51 L Glucose 119 H Calcium 9.4 Iron TIBC % Saturation Transferrin Ferritin Total Bilirubin 2.9 H AST 28 Alkaline Phosphatase 179 H Total Protein 7.9 Albumin 4.3 Vitamin B12 Folate TSH 07/09/19 07/09/19 07/10/19 21:15 21:15 00:16 WBC RBC Hgb Hct MCV MCH MCHC RDW Plt Count Seg Neutrophils % Retic Count (auto) Sodium Potassium Chloride Carbon Dioxide Anion Gap BUN Creatinine Est GFR ( Amer) Glucose Calcium Iron 58.0 TIBC 385 % Saturation 15 Transferrin 356.56 Ferritin 181.00 H Total Bilirubin AST Alkaline Phosphatase Total Protein Albumin Vitamin B12 685.0 Folate 8.36 TSH 10.30 H 07/09/19 07/09/19 07/09/19 21:15 21:15 21:15 Creatine Kinase 56 CK-MB (CK-2) 0.84 Troponin I 0.035 NT-Pro-B Natriuret Pep 20796 H 07/10/19 07/10/19 00:16 00:16 Creatine Kinase 53 CK-MB (CK-2) Troponin I 0.038 NT-Pro-B Natriuret Pep Impressions: Chest X-Ray 07/09/19 20:11 IMPRESSION: Parenchymal opacification in the mid and lower lung zones with cardiomegaly. Overall the appearance is stable. Assessment and Plan - Diagnosis (1) CHF exacerbation Qualifiers: Qualified Code(s): I50.23 - Acute on chronic systolic (congestive) heart failure Is this a current diagnosis for this admission?: Yes Plan: Likely secondary to medication and lifestyle indiscretion with uncontrolled pressure and volume. Diuresis and education initiated, follow-up telemetry and serial cardiac enzymes. (2) Anxiety Is this a current diagnosis for this admission?: Yes Plan: Follow-up outpatient regiment, benzodiazepine as needed (3) Cocaine abuse Is this a current diagnosis for this admission?: Yes Plan: Avoid beta-rip, consider clonidine, follow-up urine drug screen. (4) HTN (hypertension) Qualifiers: Is this a current diagnosis for this admission?: Yes Plan: Complicated by substance abuse, anxiety and medication indiscretion. Optimize volume, mood and trial resumption of home regiment anticipating over reduction in blood pressure. - Time Time Spent with patient: 25-34 minutes - Inpatient Certification Medical Necessity: Need Close Monitoring Due to Risk of Patient Decompensation
[2019-07-10 06:23] LABS: ANION GAP 9 (5-19); BLOOD UREA NITROGEN 18 mg/dL (7-20); CALCIUM 9.1 mg/dL (8.4-10.2); CARBON DIOXIDE 24 mmol/L (22-30); CHLORIDE 105 mmol/L (98-107); CREATINE KINASE 43 U/L (30-135); GLUCOSE 106 mg/dL (75-110); POTASSIUM 4.4 mmol/L (3.6-5.0)
[2019-07-10] MEDS: FUROSEMIDE INJ/PF 40 MG/4 ML SDV IV SCH ×2 (09:05→17:08)
[2019-07-10] MEDS: POTASSIUM CHLORIDE 10 MEQ TABLET.ER PO SCH ×2 (09:06→21:35)
[2019-07-10] MEDS ORDERED: ONDANSETRON HCL INJ/PF 4 MG/2 ML SDV IV PRN (12:15)
[2019-07-10 13:30] LABS: URINE AMPHETAMINES SCREEN NEGATIVE; URINE BARBITURATES SCREEN NEGATIVE; URINE BENZODIAZEPINES SCREEN NEGATIVE; URINE COCAINE SCREEN NEGATIVE; URINE METHADONE SCREEN NEGATIVE; URINE PHENCYCLIDINE SCREEN NEGATIVE
[2019-07-10 13:55] LABS: URINE MARIJUANA (THC) SCREEN UNCONFIRMED POSITIVE
[2019-07-10] MEDS ORDERED: TEMAZEPAM 15 MG CAPSULE PO PRN (17:21)
[2019-07-10] MEDS: SACUBITRIL/VALSARTAN 49 MG/51 MG TABLET PO SCH (18:25)
[2019-07-10] MEDS: ALPRAZOLAM 0.5 MG TABLET PO PRN (18:25)
[2019-07-10] MEDS: METOPROLOL SUCCINATE 25 MG TAB.SR.24H PO SCH (21:34)
[2019-07-10] MEDS: APIXABAN 2.5 MG TABLET PO SCH (21:34)
[2019-07-10] MEDS: ATORVASTATIN CALCIUM 80 MG TABLET PO SCH (21:35)
[2019-07-10] MEDS: FAMOTIDINE 20 MG TABLET PO SCH (21:35)
[2019-07-10] MEDS: COLCHICINE 0.6 MG TABLET PO SCH (21:35)
[2019-07-10] MEDS: GUAIFENESIN 600 MG TABLET.SA PO SCH (21:35)
[2019-07-10] MEDS: BUSPIRONE HCL 10 MG TABLET PO SCH (21:35)
[2019-07-11] MEDS: ALPRAZOLAM 0.5 MG TABLET PO PRN ×2 (04:31→17:18)
[2019-07-11 05:50] LABS: ANION GAP 10 (5-19); BLOOD UREA NITROGEN 19 mg/dL (7-20); CALCIUM 9.3 mg/dL (8.4-10.2); CARBON DIOXIDE 25 mmol/L (22-30); CHLORIDE 103 mmol/L (98-107); GLUCOSE 124 mg/dL (75-110); POTASSIUM 5.1 mmol/L (3.6-5.0)
--- NOTE | 2019-07-11 08:36 | EKG REPORT ---
SEVERITY:- ABNORMAL ECG - ATRIAL-SENSED VENTRICULAR-PACED RHYTHM : Confirmed by: Verna Frederick 11-Jul-2019 08:35:53
[2019-07-11] MEDS: SACUBITRIL/VALSARTAN 49 MG/51 MG TABLET PO SCH ×2 (09:12→17:14)
[2019-07-11] MEDS: FUROSEMIDE INJ/PF 40 MG/4 ML SDV IV SCH ×2 (09:12→17:14)
[2019-07-11] MEDS: PAROXETINE HCL 20 MG TABLET PO SCH (09:13)
[2019-07-11] MEDS: GUAIFENESIN 600 MG TABLET.SA PO SCH ×2 (09:13→21:45)
[2019-07-11] MEDS: POTASSIUM CHLORIDE 10 MEQ TABLET.ER PO SCH (09:13)
[2019-07-11] MEDS: ISOSORBIDE MONONITRATE 30 MG TAB.ER.24H PO SCH (09:13)
[2019-07-11] MEDS: APIXABAN 2.5 MG TABLET PO SCH ×2 (09:13→21:44)
[2019-07-11] MEDS: BUSPIRONE HCL 10 MG TABLET PO SCH ×2 (09:13→21:44)
[2019-07-11] MEDS: COLCHICINE 0.6 MG TABLET PO SCH ×2 (09:13→21:44)
[2019-07-11] MEDS: METOPROLOL SUCCINATE 25 MG TAB.SR.24H PO SCH ×2 (09:13→21:44)
[2019-07-11] MEDS: FAMOTIDINE 20 MG TABLET PO SCH ×2 (09:13→21:44)
[2019-07-11] MEDS: ASPIRIN 81 MG TABLET, ENT COATED PO SCH (09:13)
[2019-07-11] MEDS: OXYCODONE-ACETAMINOPHEN 5-325 MG TABLET PO PRN ×2 (15:29→21:43)
--- NOTE | 2019-07-11 16:01 | PDOC PROGRESS REPORT ---
Subjective Progress Note for:: 07/11/19 Subjective:: Patient feels better today. She feels her breathing is improved Reason For Visit: HYPERKALEMIA,HYPOMAGNESEMIA,ELEVATED LIPASE Physical Exam Vital Signs: Temp Pulse Resp BP Pulse Ox 97.7 F 62 25 H 122/80 99 07/11/19 11:14 07/11/19 11:14 07/11/19 11:14 07/11/19 11:14 07/11/19 11:14 Intake & Output 07/10/19 07/11/19 07/12/19 06:59 06:59 06:59 Intake Total 200 924 120 Output Total 1 2100 Balance 199 -1176 120 Weight 106 kg 108.1 kg General appearance: PRESENT: no acute distress, well-developed, well-nourished Head exam: PRESENT: atraumatic, normocephalic Eye exam: PRESENT: conjunctiva pink, EOMI, PERRLA. ABSENT: scleral icterus Ear exam: PRESENT: normal external ear exam Mouth exam: PRESENT: moist, tongue midline Neck exam: ABSENT: carotid bruit, JVD, lymphadenopathy, thyromegaly Respiratory exam: PRESENT: clear to auscultation renu. ABSENT: rales, rhonchi, wheezes Cardiovascular exam: PRESENT: RRR, +S1, +S2. ABSENT: diastolic murmur, rubs, systolic murmur Vascular exam: PRESENT: normal capillary refill GI/Abdominal exam: PRESENT: normal bowel sounds, soft. ABSENT: distended, guarding, mass, organolmegaly, rebound, tenderness Rectal exam: PRESENT: deferred Extremities exam: PRESENT: full ROM, +2 edema. ABSENT: calf tenderness, clubbing, pedal edema Neurological exam: PRESENT: alert, awake, oriented to person, oriented to place, oriented to time, oriented to situation, CN II-XII grossly intact. ABSENT: motor sensory deficit Psychiatric exam: PRESENT: appropriate affect, normal mood. ABSENT: homicidal ideation, suicidal ideation Skin exam: PRESENT: dry, intact, warm. ABSENT: cyanosis, rash Results Laboratory Results: 07/09/19 21:15 07/11/19 04:30 07/11/19 04:30 Sodium 138.4 Potassium 5.1 H Chloride 103 Carbon Dioxide 25 Anion Gap 10 BUN 19 Creatinine 1.51 H Est GFR ( Amer) 45 L Glucose 124 H Calcium 9.3 07/09/19 07/09/19 07/09/19 21:15 21:15 21:15 Creatine Kinase 56 CK-MB (CK-2) 0.84 Troponin I 0.035 NT-Pro-B Natriuret Pep 03128 H 07/10/19 07/10/19 07/10/19 00:16 00:16 05:12 Creatine Kinase 53 43 CK-MB (CK-2) Troponin I 0.038 NT-Pro-B Natriuret Pep 07/10/19 07/10/19 05:12 13:30 Creatine Kinase 44 CK-MB (CK-2) Troponin I 0.044 NT-Pro-B Natriuret Pep Impressions: Chest X-Ray 07/09/19 20:11 IMPRESSION: Parenchymal opacification in the mid and lower lung zones with cardiomegaly. Overall the appearance is stable. Assessment and Plan - Diagnosis (1) CHF exacerbation Qualifiers: Heart failure type: systolic Qualified Code(s): I50.23 - Acute on chronic systolic (congestive) heart failure Is this a current diagnosis for this admission?: Yes Plan: Continue with current diuresis. It appears patient was sent home on a really small dose of Lasix likely leading to her symptoms. We will continue Lasix at a high dose today and hopefully if she remains stable she will be discharged home on an increased oral Lasix dose (2) Shortness of breath Is this a current diagnosis for this admission?: Yes (3) Acute and chronic respiratory failure with hypoxia Is this a current diagnosis for this admission?: Yes (4) Hyperkalemia Is this a current diagnosis for this admission?: Yes Plan: Decrease K - Time Time Spent with patient: 15-24 minutes Anticipated discharge: Home Within: within 24 hours
[2019-07-11] MEDS: ATORVASTATIN CALCIUM 80 MG TABLET PO SCH (21:44)
[2019-07-12 06:36] LABS: ANION GAP 9 (5-19); BLOOD UREA NITROGEN 19 mg/dL (7-20); CALCIUM 8.6 mg/dL (8.4-10.2); CARBON DIOXIDE 30 mmol/L (22-30); CHLORIDE 100 mmol/L (98-107); GLUCOSE 97 mg/dL (75-110); POTASSIUM 4.1 mmol/L (3.6-5.0)
[2019-07-12] MEDS ORDERED: POTASSIUM CHLORIDE 10 MEQ TABLET.ER PO SCH (10:00)
[2019-07-12] MEDS: GUAIFENESIN 600 MG TABLET.SA PO SCH (10:05)
[2019-07-12] MEDS: PAROXETINE HCL 20 MG TABLET PO SCH (10:05)
[2019-07-12] MEDS: FAMOTIDINE 20 MG TABLET PO SCH (10:05)
[2019-07-12] MEDS: METOPROLOL SUCCINATE 25 MG TAB.SR.24H PO SCH (10:05)
[2019-07-12] MEDS: ISOSORBIDE MONONITRATE 30 MG TAB.ER.24H PO SCH (10:06)
[2019-07-12] MEDS: ASPIRIN 81 MG TABLET, ENT COATED PO SCH (10:06)
[2019-07-12] MEDS: COLCHICINE 0.6 MG TABLET PO SCH (10:06)
[2019-07-12] MEDS: SACUBITRIL/VALSARTAN 49 MG/51 MG TABLET PO SCH (10:06)
[2019-07-12] MEDS: APIXABAN 2.5 MG TABLET PO SCH (10:06)
[2019-07-12] MEDS: FUROSEMIDE INJ/PF 40 MG/4 ML SDV IV SCH (10:06)
[2019-07-12] MEDS: BUSPIRONE HCL 10 MG TABLET PO SCH (10:06)
[2019-07-12] MEDS: OXYCODONE-ACETAMINOPHEN 5-325 MG TABLET PO PRN (10:11)
--- NOTE | 2019-07-12 11:02 | PDOC DISCHARGE SUMMARY ---
Impression - Admit/DC Date/PCP Admission Date/Primary Care Provider: 07/10/19 14:00 YI SANCHEZ DO Discharge Date: 07/12/19 - Discharge Diagnosis (1) CHF exacerbation Is this a current diagnosis for this admission?: Yes (2) Shortness of breath Is this a current diagnosis for this admission?: Yes (3) Acute and chronic respiratory failure with hypoxia Is this a current diagnosis for this admission?: Yes (4) Hyperkalemia Is this a current diagnosis for this admission?: Yes (5) HTN (hypertension) Is this a current diagnosis for this admission?: Yes (6) CKD (chronic kidney disease), stage III Is this a current diagnosis for this admission?: Yes - Additional Information Resuscitation Status: Full Code Discharge Diet: Cardiac, Diabetic Discharge Activity: Activity As Tolerated, Balance Activity w/Rest, Weigh Daily Referrals: YI SANCHEZ DO [Primary Care Provider] - Follow up as needed Prescriptions: Furosemide [Lasix 40 mg Tablet] 40 mg PO QAM #30 tablet Home Medications: Alprazolam [Xanax 0.5 mg Tablet] 0.5 mg PO Q6HP PRN 02/08/19 Atorvastatin Calcium [Lipitor 80 mg Tablet] 80 mg PO QHS 02/08/19 Paroxetine HCl [Paxil 20 mg Tablet] 20 mg PO DAILY 02/08/19 Sacubitril/Valsartan [Entresto 49 mg/51 mg Tablet] 1 tab PO BID #30 tablet 05/29/19 Oxycodone HCl/Acetaminophen [Percocet 7.5-325 mg Tablet] 1 each PO Q6HP PRN 06/24/19 Apixaban [Eliquis 2.5 mg Tablet] 2.5 mg PO Q12 #0 tablet 07/03/19 Buspirone HCl [Buspar 10 mg Tablet] 10 mg PO Q12 #0 tablet 07/03/19 Colchicine [Colcrys 0.6 mg Tablet] 0.6 mg PO Q12 #14 tablet 07/03/19 Famotidine [Pepcid 20 mg Tablet] 20 mg PO Q12 tablet 07/03/19 Guaifenesin [Mucinex Sr 600 mg Tablet.sa] 600 mg PO Q12 #14 tablet.sa 07/03/19 Metoprolol Succinate [Toprol Xl 25 mg Tab.sr] 25 mg PO Q12 tab.sr.24h 07/03/19 Acetaminophen [Tylenol 325 mg Tablet] 650 mg PO Q4HP PRN 07/10/19 Aspirin [Ecotrin 81 mg EC Tablet] 81 mg PO DAILY 07/10/19 Isosorbide Mononitrate [Imdur 30 mg Tablet.er] 30 mg PO QAM 07/10/19 Oxycodone HCl/Acetaminophen [Percocet 5-325 mg Tablet] 2 tab PO Q4HP PRN 07/10/19 Temazepam [Restoril 15 mg Capsule] 15 mg PO HSP PRN 07/10/19 Furosemide [Lasix 40 mg Tablet] 40 mg PO QAM #30 tablet 07/12/19 History of Present Illiness History of Present Illness: FRANKI DEL ROSARIO is a 48 year old female Patient was admitted to the hospital 6 days after being discharged with acute CHF exacerbation. She was found to be in another episode of decompensated CHF. She was admitted for further management. Please see admitting history and physical for full details. Hospital Course Hospital Course: Patient was started on intravenous diuretics. It appears that she had been discharged on Lasix 20 mg daily which patient states she was compliant with. She diuresed pretty well while in hospital. She was educated as to the need to be compliant with her medications. Blood pressure was better controlled with optimization of antihypertensives. Patient has been advised on the need to avoid illicit drug use. I have increased her home Lasix dose to 40 mg daily and have instructed patient on how to adjust her Lasix dose temporarily if needed with close follow-up and monitoring by her PCP. Although she received potassium supplementation while in hospital I have discontinued this at discharge and I will suggest outpatient follow-up of her BMP and adjustment of her medications as needed. She has otherwise remained hemodynamically stable and it is felt that she can be discharged home for outpatient follow-up. Last echocardiogram was done in January 2019 with LVEF of 20 to 25% Physical Exam Vital Signs: Temp Pulse Resp BP Pulse Ox 97.4 F 59 L 11 L 116/73 97 07/12/19 07:35 07/12/19 07:35 07/12/19 09:14 07/12/19 07:35 07/12/19 09:14 Intake & Output 07/11/19 07/12/19 07/13/19 06:59 06:59 06:59 Intake Total 924 560 Output Total 2100 Balance -1176 560 Weight 108.1 kg 108 kg Results Laboratory Results: WBC 5.0 10^3/uL (4.0-10.5) 07/09/19 21:15 RBC 3.35 10^6/uL (3.72-5.28) L 07/09/19 21:15 Hgb 10.0 g/dL (12.0-15.5) L 07/09/19 21:15 Hct 30.9 % (36.0-47.0) L 07/09/19 21:15 MCV 92 fl (80-97) 07/09/19 21:15 MCH 30.0 pg (27.0-33.4) 07/09/19 21:15 MCHC 32.5 g/dL (32.0-36.0) 07/09/19 21:15 RDW 16.8 % (11.5-14.0) H 07/09/19 21:15 Plt Count 331 10^3/uL (150-450) 07/09/19 21:15 Lymph % (Auto) 19.4 % (13-45) 07/09/19 21:15 [place] % (Auto) 7.1 % (3-13) 07/09/19 21:15 Eos % (Auto) 0.2 % (0-6) 07/09/19 21:15 Baso % (Auto) 1.3 % (0-2) 07/09/19 21:15 Reticulocyte # 0.116 10^6/uL (0.028-0.122) 07/09/19 21:15 Absolute Neuts (auto) 3.6 10^3/uL (1.7-8.2) 07/09/19 21:15 Absolute Lymphs (auto) 1.0 10^3/uL (0.5-4.7) 07/09/19 21:15 Absolute Monos (auto) 0.4 10^3/uL (0.1-1.4) 07/09/19 21:15 Absolute Eos (auto) 0.0 10^3/uL (0.0-0.6) 07/09/19 21:15 Absolute Basos (auto) 0.1 10^3/uL (0.0-0.2) 07/09/19 21:15 Seg Neutrophils % 72.0 % (42-78) 07/09/19 21:15 Retic Count (auto) 3.51 % (0.66-2.85) H 07/09/19 21:15 Sodium 138.5 mmol/L (137-145) 07/12/19 05:22 Potassium 4.1 mmol/L (3.6-5.0) 07/12/19 05:22 Chloride 100 mmol/L (98-107) 07/12/19 05:22 Carbon Dioxide 30 mmol/L (22-30) 07/12/19 05:22 Anion Gap 9 (5-19) 07/12/19 05:22 BUN 19 mg/dL (7-20) 07/12/19 05:22 Creatinine 1.58 mg/dL (0.52-1.25) H 07/12/19 05:22 Est GFR ( Amer) 42 (>60) L 07/12/19 05:22 Est GFR (MDRD) Non-Af 35 (>60) L 07/12/19 05:22 Glucose 97 mg/dL (75-110) 07/12/19 05:22 Calcium 8.6 mg/dL (8.4-10.2) 07/12/19 05:22 Iron 58.0 ug/dL (37-170) 07/09/19 21:15 TIBC 385 ug/dL (250-450) 07/09/19 21:15 % Saturation 15 % 07/09/19 21:15 Transferrin 356.56 mg/dL (206.00-381.00) 07/09/19 21:15 Ferritin 181.00 ng/mL (6.2-137.0) H 07/09/19 21:15 Total Bilirubin 2.9 mg/dL (0.2-1.3) H 07/09/19 21:15 Direct Bilirubin 1.2 mg/dL (0.0-0.4) H 07/09/19 21:15 Neonat Total Bilirubin Not Reportable 07/09/19 21:15 Neonat Direct Bilirubin Not Reportable 07/09/19 21:15 Neonat Indirect Bili Not Reportable 07/09/19 21:15 AST 28 U/L (14-36) 07/09/19 21:15 ALT 13 U/L (<35) 07/09/19 21:15 Alkaline Phosphatase 179 U/L (38-126) H 07/09/19 21:15 Creatine Kinase 44 U/L (30-135) 07/10/19 13:30 CK-MB (CK-2) 0.84 ng/mL (<4.55) 07/09/19 21:15 Troponin I 0.044 ng/mL 07/10/19 05:12 NT-Pro-B Natriuret Pep 31056 pg/mL (<125) H 07/09/19 21:15 Total Protein 7.9 g/dL (6.3-8.2) 07/09/19 21:15 Albumin 4.3 g/dL (3.5-5.0) 07/09/19 21:15 Vitamin B12 685.0 pg/mL (239-931) 07/09/19 21:15 Folate 8.36 ng/mL (>2.76) 07/09/19 21:15 TSH 10.30 uIU/mL (0.47-4.68) H 07/10/19 00:16 Urine Opiates Screen NEGATIVE 07/10/19 13:00 Urine Methadone Screen NEGATIVE 07/10/19 13:00 Ur Barbiturates Screen NEGATIVE 07/10/19 13:00 Ur Phencyclidine Scrn NEGATIVE 07/10/19 13:00 Ur Amphetamines Screen NEGATIVE 07/10/19 13:00 U Benzodiazepines Scrn NEGATIVE 07/10/19 13:00 Urine Cocaine Screen NEGATIVE 07/10/19 13:00 U Marijuana (THC) Screen UNCONFIRMED POSITIVE 07/10/19 13:00 07/09/19 07/09/19 07/10/19 21:15 21:15 00:16 CK-MB (CK-2) 0.84 Troponin I 0.035 0.038 NT-Pro-B Natriuret Pep 79688 H 07/10/19 05:12 CK-MB (CK-2) Troponin I 0.044 NT-Pro-B Natriuret Pep Impressions: Chest X-Ray 07/09/19 20:11 IMPRESSION: Parenchymal opacification in the mid and lower lung zones with cardiomegaly. Overall the appearance is stable. Stroke Is this a Stroke Patient?: No Acute Heart Failure - Is this a Heart Failure Patient?: Yes Documentation of LVEF assessment?: Yes LVEF < 40%?: Yes-if yes answer questions a through e a) Discharged on ACEI?: N/A Discharged on ARNI Reason(s) not discharge on ACEI: other b) Discharges on ARB?: N/A-Discharged on ARNI Reason(s) not discharged on ARB: Other c) Discharged on ARNI?: Yes Reason(s) not discharged on ARNI: Other d) Discharged on evidence-based Beta rip(carvedilol, sustained release metoprolol succinate, or bisoprolol)?: Yes e) For LVEF <35%, discharged on Aldosterone antagonist?: No-document contraincations Reason(s) not discharged on Aldosterone antagonist for LVEF < 35%: Renal dysfunction (creatinine >2.5 mg/dL in men or 2.0 mg/dL in women) 3. Anticoagulant therapy for permanect/persistent/paraoxysmal Afib or Aflutter: Yes Follow-up Appointment scheduled within 7 days?: Yes
[2019-07-12 13:30] VITALS: BP 104/65
== END 2019-07-12 13:45 | disposition home health service (06) | DRG 291 ==
LOC: ER 19:32 → EH 07-10 01:24 → 4N 07-10 03:09 → OBSVTOIN 07-10 14:00
PROVIDERS: ADMIT Internal Medicine; ATTEND Internal Medicine
DX: I13.0 Hypertensive heart and chronic kidney disease with heart failure and stage 1 through stage 4 chronic kidney disease, or unspecified chronic kidney disease (principal); I50.23 Acute on chronic systolic (congestive) heart failure; J96.21 Acute and chronic respiratory failure with hypoxia; N18.3 Chronic kidney disease, stage 3 (moderate); E87.5 Hyperkalemia; J44.9 Chronic obstructive pulmonary disease, unspecified; K21.9 Gastro-esophageal reflux disease without esophagitis; F41.9 Anxiety disorder, unspecified; F14.10 Cocaine abuse, uncomplicated; F20.9 Schizophrenia, unspecified; F31.9 Bipolar disorder, unspecified; I25.2 Old myocardial infarction; Z99.81 Dependence on supplemental oxygen; Z95.810 Presence of automatic (implantable) cardiac defibrillator
CPT/HCPCS: 36415; 71045; 80048; 80053; 80307; 82550; 82553; 82607; 82728; 82746; 83540; 83550; 83880; 84443; 84466; 84484; 85025; 85045; 93005; 93010; 94660; 96374; 99285; G0378; J1644; J1940; J2405; J3490; S0119

== ENCOUNTER 2019-10-28 11:00 | Inpatient (IN) | payer MEDICAID ==
--- NOTE | 2019-10-28 11:18 | ER Document Report ---
ED Respiratory Problem - General Stated Complaint: DIFFICULTY BREATHING Time Seen by Provider: 10/28/19 11:12 Primary Care Provider: YI SANCHEZ DO [Primary Care Provider] - Follow up as needed TRAVEL OUTSIDE OF THE [place] IN LAST 30 DAYS: No - HPI Notes: 48-year-old female arrives via EMS for respiratory distress. Information is primarily obtained from EMS as patient unable to provide given her respiratory status. Per EMS, she began feeling short of breath last night, and increased this morning. On EMS arrival, her initial oxygen saturation was 68% on room air, patient requested to be put on CPAP, after initiating CPAP with PEEP of 10 her oxygen saturations increased to 97%. There is some concern for noncompliance, patient apparently stated to them that she does not use her CPAP at home. She is supposed be on 4L at baseline. EMS gave her 2 duo nebs and additionally gave her IM epinephrine. - Related Data Allergies/Adverse Reactions: egg [Egg] Allergy (Verified 07/09/19 20:06) propoxyphene [From Darvocet-N] Allergy (Verified 07/09/19 20:06) amiodarone Adverse Reaction (Verified 07/09/19 20:06) Respiratory distress diphenhydramine HCl [From Benadryl] Adverse Reaction (Verified 07/09/19 20:06) chest pain, bigemeny rhythm Past Medical History - Social History Smoking Status: Unknown if Ever Smoked Family History: Reviewed & Not Pertinent, CAD, CVA, DM, Hypertension, Malignancy, Other - Kidney disease - Past Medical History Cardiac Medical History: Reports: Hx Atrial Fibrillation, Hx Congestive Heart Failure, Hx Coronary Artery Disease, Hx Heart Attack, Hx Hypercholesterolemia, Hx Hypertension Denies: Hx DVT, Hx Pulmonary Embolism Pulmonary Medical History: Reports: Hx Bronchitis, Hx COPD, Hx Pneumonia, Hx Intubation, Hx Respiratory Failure, Hx Sleep Apnea Denies: Hx Asthma Neurological Medical History: Denies: Hx Cerebrovascular Accident, Hx Seizures Endocrine Medical History: Denies: Hx Diabetes Mellitus Type 1, Hx Diabetes Mellitus Type 2, Hx Hyperthyroidism, Hx Hypothyroidism Renal/ Medical History: Reports: Hx Kidney Stones, Hx Renal Insufficiency. Denies: Hx Peritoneal Dialysis GI Medical History: Reports: Hx Gastroesophageal Reflux Disease. Denies: Hx Cirrhosis, Hx Crohn's Disease, Hx Hepatitis, Hx Hiatal Hernia, Hx Ulcer, Hx Ulcerative Colitis Musculoskeletal Medical History: Denies Hx Arthritis, Denies Hx Gout Skin Medical History: Denies Hx Eczema, Denies Hx Psoriasis Psychiatric Medical History: Reports: Hx Anxiety, Hx Depression, Hx Schizophrenia Infectious Medical History: Reports: Hx MRSA - And sputum on last admission.. Denies: Hx Hepatitis Past Surgical History: Reports: Hx Cardiac Catheterization - multiple, Hx Cardiac Surgery - pacemaker/icd, Hx Section, Hx Coronary Artery Bypass Graft - 2006, Hx Coronary Stent - Multiple, Hx Hysterectomy, Hx Open Heart Surgery - BYPASS 2006, Hx Pacemaker - AICD, Hx Tubal Ligation. Denies: Hx Mastectomy - Immunizations Hx Diphtheria, Pertussis, Tetanus Vaccination: Yes Hx Pneumococcal Vaccination: 04/04/12 Review of Systems - Review of Systems -: Yes ROS unobtainable due to patient's medical condition Physical Exam - Vital signs Vitals: Temp Resp BP Pulse Ox 99.8 F 37 H 156/116 H 97 10/28/19 11:07 10/28/19 11:07 10/28/19 11:07 10/28/19 11:07 - General General appearance: Alert In distress: Moderate - HEENT Head: Normocephalic, Atraumatic Extraocular movements intact: Yes Pupils: PERRL - Respiratory Respiratory status: Tachypnea Breath sounds: Rales - Cardiovascular Rhythm: Extrasystoles Murmur: Yes Normal capillary refill: Yes - Abdominal Distension: No distension Tenderness: Nontender - Extremities General lower extremity: No: Edema - Neurological Neuro grossly intact: Yes Cognition: Normal - Psychological Associated symptoms: Anxious - Skin Skin Temperature: Warm Skin Moisture: Diaphoretic Course - Re-evaluation Re-evalutation: 10/28/19 11:22 48-year-old female history of HFrEF on Entresto here with acute onset of shortness of breath. She has diffuse rales on exam, she was transitioned to BiPAP and is currently tolerating well. Suspecting pulmonary edema likely secondary to acute CHF exacerbation. Low suspicion for COPD exacerbation. Pneumonia or other infectious process possibility as well. Will start with 60 mg IV Lasix. Currently is hypertensive though this could be an effect of the epinephrine, will repeat vitals and start nitro if needed. 10/28/19 12:00 Into reevaluate patient as she had a brief desaturation on BiPAP, she currently is 92% on 13/10. Respiratory few, says, believes she might need some more PEEP. Has had sustained hypertension now, will start nitro infusion. 10/28/19 13:11 In to reassess patient, she looks markedly improved. She is now communicative. Her blood pressure has responded well to nitro. She denies any recent illness, no fever or chills, no abdominal pain, nausea vomiting or diarrhea. She reports compliance with her medications. 10/28/19 15:25 Elevated BNP and trop leak consistent with CHFe. Patient has been admitted to the hospitalist service. - Vital Signs Vital signs: Temp Pulse Resp BP Pulse Ox 97.7 F 24 H 121/84 97 10/28/19 14:22 10/28/19 14:42 10/28/19 14:42 10/28/19 14:42 - Laboratory Result Diagrams: 10/28/19 13:01 10/28/19 13:01 Laboratory results interpreted by me: 10/28/19 10/28/19 10/28/19 12:49 13:01 13:01 Hgb 11.5 L Hct 34.8 L RDW 17.6 H Lymph % (Auto) 9.3 L Seg Neutrophils % 85.2 H Carbonic Acid 1.52 H ABG pH 7.26 L ABG pCO2 50.6 H ABG pO2 78.6 L ABG O2 Saturation 93.7 L Sodium 145.3 H BUN 24 H Creatinine 2.05 H Est GFR ( Amer) 31 L Est GFR (MDRD) Non-Af 26 L Glucose 166 H Total Bilirubin 2.5 H Direct Bilirubin 1.2 H AST 153 H ALT 93 H Alkaline Phosphatase 147 H NT-Pro-B Natriuret Pep 10/28/19 13:01 Hgb Hct RDW Lymph % (Auto) Seg Neutrophils % Carbonic Acid ABG pH ABG pCO2 ABG pO2 ABG O2 Saturation Sodium BUN Creatinine Est GFR ( Amer) Est GFR (MDRD) Non-Af Glucose Total Bilirubin Direct Bilirubin AST ALT Alkaline Phosphatase NT-Pro-B Natriuret Pep 45765 H - Diagnostic Test Radiology reviewed: Image reviewed, Reports reviewed - EKG Interpretation by Me Additional EKG results interpreted by me: EKG is interpreted by me. Ventricular paced rhythm. Intraventricular conduction delay. Morphology was some similar to previous. Discharge - Discharge Clinical Impression: BENNY (acute kidney injury) Acute exacerbation of congestive heart failure Qualifiers: Heart failure type: systolic Qualified Code(s): I50.23 - Acute on chronic systolic (congestive) heart failure Disposition: ADMITTED INPATIENT Admitting Provider: Yan (Hospitalist) Referrals: YI SANCHEZ DO [Primary Care Provider] - Follow up as needed
[2019-10-28] MEDS ORDERED: NITROGLYCERIN 0.4 MG/TAB 25 TAB/BOTTLE SL ONE (11:19)
[2019-10-28] MEDS ORDERED: FUROSEMIDE INJ/PF 20 MG/2 ML SDV IV ONE (11:19)
[2019-10-28] MEDS ORDERED: ONDANSETRON HCL INJ/PF 4 MG/2 ML SDV IV ONE (11:40)
[2019-10-28] MEDS ORDERED: NITROGLYCERIN/D5W 50 MG/250 ML RTUINJ IV PRN (11:59)
--- NOTE | 2019-10-28 12:02 | RADIOLOGY REPORT (SQ) ---
EXAM DESCRIPTION: CHEST SINGLE VIEW IMAGES COMPLETED DATE/TIME: 10/28/2019 11:42 am REASON FOR STUDY: pulm edema COMPARISON: Chest radiographs 07/09/2019 and 07/02/2019 NUMBER OF VIEWS: One view. TECHNIQUE: Single frontal radiographic view of the chest acquired. LIMITATIONS: None. FINDINGS: LUNGS AND PLEURA: There are patchy pulmonary opacities at the lung bases bilaterally with prominence of the pulmonary vasculature throughout. No large pleural effusion. No pneumothorax. MEDIASTINUM AND HILAR STRUCTURES: No masses. Contour normal. HEART AND VASCULAR STRUCTURES: Cardiomegaly. Left chest wall cardiac pacing device is unchanged. BONES: No acute findings. HARDWARE: None in the chest. OTHER: No other significant finding. IMPRESSION: Patchy opacification in the mid and lower lung zones with prominent and indistinct pulmo nary vasculature and cardiomegaly. Constellation of findings likely represents pulmonary edema in th e setting of congestive heart failure. A superimposed infectious process would be difficult to exclu de. Recommend radiographic follow-up. TECHNICAL DOCUMENTATION: JOB ID: [id number] 2010 [employer]- All Rights Reserved Reading location - IP/workstation name: [email or web address]
[2019-10-28 13:18] LABS: ARTERIAL BLOOD BASE EXCESS -5.2 mmol/L; ARTERIAL BLOOD FIO2 70%; ARTERIAL BLOOD H2CO3 1.52 mmol/L (1.05-1.35); ARTERIAL BLOOD HCO3 22.1 mmol/L (20-24); ARTERIAL BLOOD O2 SATURATION 93.7 % (94-98); ARTERIAL BLOOD PCO2 50.6 mmHg (35-45); ARTERIAL BLOOD PH 7.26 (7.35-7.45); ARTERIAL BLOOD PO2 78.6 mmHg (80-100); ARTERIAL BLOOD TOTAL CO2 23.7 mmol/L (21-25)
[2019-10-28] MEDS ORDERED: MORPHINE SULFATE 10 MG/ML INJ IV ONE (13:36)
[2019-10-28 14:02] LABS: ABSOLUTE BASOPHILS # (AUTO) 0.1 10^3/uL (0.0-0.2); ABSOLUTE LYMPHOCYTES (AUTO) 0.9 10^3/uL (0.5-4.7); ABSOLUTE MONOCYTES (AUTO) 0.5 10^3/uL (0.1-1.4); ABSOLUTE NEUT (AUTO) 8.2 10^3/uL (1.7-8.2); BASOPHILS % (AUTO) 0.6 % (0-2); EOSINOPHILS % (AUTO) 0.1 % (0-6); HEMATOCRIT 34.8 % (36.0-47.0); HEMOGLOBIN 11.5 g/dL (12.0-15.5); LYMPHOCYTES % (AUTO) 9.3 % (13-45); MEAN CORPUSCULAR HEMOGLOBIN 30.7 pg (27.0-33.4); MEAN CORPUSCULAR HGB CONC 33.1 g/dL (32.0-36.0); MEAN CORPUSCULAR VOLUME 93 fl (80-97); MONOCYTES % (AUTO) 4.8 % (3-13); PLATELET COUNT 283 10^3/uL (150-450); RED BLOOD COUNT 3.76 10^6/uL (3.72-5.28); RED CELL DISTRIBUTION WIDTH 17.6 % (11.5-14.0); SEGMENTED NEUTROPHILS % (AUTO) 85.2 % (42-78); TOTAL CELLS COUNTED % (AUTO) 100 %; WHITE BLOOD COUNT 9.7 10^3/uL (4.0-10.5)
[2019-10-28 14:17] LABS: ALBUMIN 4.7 g/dL (3.5-5.0); ALKALINE PHOSPHATASE 147 U/L (38-126); ANION GAP 16 (5-19); ASPARTATE AMINO TRANSFERASE 153 U/L (14-36); BILIRUBIN,DIRECT 1.2 mg/dL (0.0-0.4); BILIRUBIN,TOTAL 2.5 mg/dL (0.2-1.3); BLOOD UREA NITROGEN 24 mg/dL (7-20); CALCIUM 9.4 mg/dL (8.4-10.2); CARBON DIOXIDE 22 mmol/L (22-30); CHLORIDE 107 mmol/L (98-107); GLUCOSE 166 mg/dL (75-110); POTASSIUM 4.4 mmol/L (3.6-5.0); TOTAL PROTEIN 7.9 g/dL (6.3-8.2)
[2019-10-28 14:31] LABS: TROPONIN I 0.09 ng/mL
[2019-10-28] MEDS ORDERED: MAGNESIUM HYDROXIDE SUSP 30 ML UDCUP PO PRN (15:57)
[2019-10-28] MEDS ORDERED: MAG HYDROX/AL HYDROX/SIMETH SUSP 30 ML UDCUP PO PRN (15:57)
--- NOTE | 2019-10-28 16:27 | PDOC H&P ---
History of Present Illness Admission Date/PCP: YI SANCHEZ DO Patient complains of: Shortness of breath History of Present Illness: FRANKI DEL ROSARIO is a 48 year old female, well-known to our service, with a past medical history significant for CAD, CABG in 2006, subsequent artery stenting, CHF with LVEF of 20 to 25%, atrial fibrillation, AICD, COPD, CKD 3, GERD, depression, morbid obesity, RUBIN, and remote substance abuse who presented to the emergency department via EMS today with a complaint of dyspnea. Per ED provider, prior to arrival, patient received multiple albuterol nebulizer treatments and epinephrine for management of her dyspnea resulting in hypertensive urgency. After a monitoring period, it was determined that the patient's blood pressures remain elevated enough to warrant nitroglycerin drip. Further evaluation revealed Low-grade temperature (99.8), paced rhythm in the mid 60s, tachypnea (38) and hypoxia on room air. Of note, the last time I personally discharge this patient (approximately 7-8 months ago), the patient was discharged on supplemental oxygen and was attending pulmonary rehabilitation therapy. Laboratory evaluation revealed baseline anemia, chemistry showed mild BENNY (CR 2.05 today; baseline 1.5), mildly elevated LFTs (near her baseline), and an elevated proBNP to 28K (baseline). ABG revealed respiratory acidosis with hypercapnia. Chest x-ray showed pulmonary edema with a possible superimposed infectious proc ess which would be difficult to exclude; recommend follow-up imaging. As mentioned, patient was provided nitroglycerin drip for Hypertensive management, morphine, Zofran, and BiPAP. She is referred to the hospitalist service for further evaluation management of the above-stated complaints and findings. Past Medical History Cardiac Medical History: Reports: Atrial Fibrillation, Congestive Heart Failure, Coronary Artery Disease, Myocardial Infarction, Hyperlipidema, Hypertension Denies: DVT, Pulmonary Embolism Pulmonary Medical History: Reports: Bronchitis, Chronic Obstructive Pulmonary Disease (COPD), Intubation, Pneumonia, Respiratory Failure, Sleep Apnea Denies: Asthma EENT Medical History: Reports: None Neurological Medical History: Denies: Ischemic CVA, Seizures Endocrine Medical History: Reports: Obesity Denies: Diabetes Mellitus Type 2, Hypothyroidism Renal/ Medical History: Reports: Chronic Kidney Disease GI Medical History: Reports: Gastroesophageal Reflux Disease, Hepatitis Denies: Cirrhosis, Crohn's Disease, Hiatal Hernia, Ulcerative Colitis Musculoskeltal Medical History: Reports: None Skin Medical History: Reports: None Psychiatric Medical History: Reports: Depression, General Anxiety Disorder Hematology: Reports: Anemia Infectious Medical History: Reports: Methicillin-Resistant Staph Aureus Past Surgical History Past Surgical History: Reports: Cardiac Catheterization - multiple, Section, Coronary Artery Bypass Graft - 2007, Coronary Stent - Multiple, Hysterectomy, Pacemaker - AICD, Tubal Ligation Denies: Mastectomy Social History Information Source: Patient, [facility] Records Lives with: Family Smoking Status: Former Smoker Frequency of Alcohol Use: Occasional Hx Recreational Drug Use: Yes - remote Drugs: Cocaine, Marijuana Hx Prescription Drug Abuse: No - Advance Directive Resuscitation Status: Full Code Family History Family History: Reviewed & Not Pertinent, CAD, CVA, DM, Hypertension, Malignancy, Other - Kidney disease Parental Family History Reviewed: Yes Children Family History Reviewed: Yes Sibling(s) Family History Reviewed.: Yes Medication/Allergy Home Medications: Alprazolam [Xanax 0.5 mg Tablet] 0.5 mg PO Q6HP PRN 02/08/19 Atorvastatin Calcium [Lipitor 80 mg Tablet] 80 mg PO QHS 02/08/19 Paroxetine HCl [Paxil 20 mg Tablet] 20 mg PO DAILY 02/08/19 Sacubitril/Valsartan [Entresto 49 mg/51 mg Tablet] 1 tab PO BID #30 tablet 05/29/19 Oxycodone HCl/Acetaminophen [Percocet 7.5-325 mg Tablet] 1 each PO Q6HP PRN 06/24/19 Apixaban [Eliquis 2.5 mg Tablet] 2.5 mg PO Q12 #0 tablet 07/03/19 Buspirone HCl [Buspar 10 mg Tablet] 10 mg PO Q12 #0 tablet 07/03/19 Colchicine [Colcrys 0.6 mg Tablet] 0.6 mg PO Q12 #14 tablet 07/03/19 Famotidine [Pepcid 20 mg Tablet] 20 mg PO Q12 tablet 07/03/19 Guaifenesin [Mucinex Sr 600 mg Tablet.sa] 600 mg PO Q12 #14 tablet.sa 07/03/19 Metoprolol Succinate [Toprol Xl 25 mg Tab.sr] 25 mg PO Q12 tab.sr.24h 07/03/19 Acetaminophen [Tylenol 325 mg Tablet] 650 mg PO Q4HP PRN 07/10/19 Aspirin [Ecotrin 81 mg EC Tablet] 81 mg PO DAILY 07/10/19 Isosorbide Mononitrate [Imdur 30 mg Tablet.er] 30 mg PO QAM 07/10/19 Oxycodone HCl/Acetaminophen [Percocet 5-325 mg Tablet] 2 tab PO Q4HP PRN 07/10/19 Temazepam [Restoril 15 mg Capsule] 15 mg PO HSP PRN 07/10/19 Furosemide [Lasix 40 mg Tablet] 40 mg PO QAM #30 tablet 07/12/19 Allergies/Adverse Reactions: egg [Egg] Allergy (Verified 07/09/19 20:06) propoxyphene [From Darvocet-N] Allergy (Verified 07/09/19 20:06) amiodarone Adverse Reaction (Verified 07/09/19 20:06) Respiratory distress diphenhydramine HCl [From Benadryl] Adverse Reaction (Verified 07/09/19 20:06) chest pain, bigemeny rhythm Review of Systems Constitutional: PRESENT: chills, fatigue, fever(s). ABSENT: headache(s), weight gain, weight loss Eyes: ABSENT: visual disturbances Ears: ABSENT: hearing changes Cardiovascular: PRESENT: dyspnea on exertion. ABSENT: chest pain, edema, orthropnea, palpitations Respiratory: PRESENT: cough, dyspnea. ABSENT: hemoptysis Gastrointestinal: PRESENT: diarrhea, nausea. ABSENT: abdominal pain, constipation, hematemesis, hematochezia, vomiting Genitourinary: ABSENT: dysuria, hematuria Musculoskeletal: ABSENT: joint swelling Integumentary: ABSENT: rash, wounds Neurological: ABSENT: abnormal gait, abnormal speech, confusion, dizziness, focal weakness, syncope Psychiatric: ABSENT: anxiety, depression, homidical ideation, suicidal ideation Endocrine: ABSENT: cold intolerance, heat intolerance, polydipsia, polyuria Hematologic/Lymphatic: ABSENT: easy bleeding, easy bruising Physical Exam Vital Signs: Temp Pulse Resp BP Pulse Ox 97.7 F 24 H 121/84 97 10/28/19 14:22 10/28/19 14:42 10/28/19 14:42 10/28/19 14:42 Intake & Output 10/27/19 10/28/19 10/29/19 06:59 06:59 06:59 Weight 102.4 kg General appearance: PRESENT: cooperative, obese, well-developed, well-nourished Head exam: PRESENT: atraumatic, normocephalic Eye exam: PRESENT: conjunctiva pink, EOMI, PERRLA. ABSENT: scleral icterus Mouth exam: PRESENT: dry mucosa, tongue midline Respiratory exam: PRESENT: clear to auscultation renu - anterior, decreased breath sounds - throughout, symmetrical, tachypnea, unlabored, other - BiPAP. ABSENT: rales, rhonchi, wheezes Cardiovascular exam: PRESENT: RRR - paced. ABSENT: diastolic murmur, rubs, systolic murmur Pulses: PRESENT: normal dorsalis pedis pul Vascular exam: PRESENT: normal capillary refill GI/Abdominal exam: PRESENT: normal bowel sounds, soft. ABSENT: distended, guarding, mass, organolmegaly, rebound, tenderness Rectal exam: PRESENT: deferred Extremities exam: PRESENT: full ROM. ABSENT: calf tenderness, clubbing, pedal edema, +1 edema, +2 edema Neurological exam: PRESENT: alert, awake, oriented to person, oriented to place, oriented to time, oriented to situation, CN II-XII grossly intact, other - lethargic; falls asleep mid-sentence. ABSENT: motor sensory deficit Psychiatric exam: PRESENT: appropriate affect, normal mood. ABSENT: homicidal i deation, suicidal ideation Skin exam: PRESENT: dry, intact, warm. ABSENT: cyanosis, rash Results Laboratory Results: 10/28/19 13:01 10/28/19 13:01 10/28/19 10/28/19 10/28/19 12:49 13:01 13:01 WBC 9.7 RBC 3.76 Hgb 11.5 L Hct 34.8 L MCV 93 MCH 30.7 MCHC 33.1 RDW 17.6 H Plt Count 283 Seg Neutrophils % 85.2 H Carbonic Acid 1.52 H HCO3/H2CO3 Ratio 14:1 ABG pH 7.26 L ABG pCO2 50.6 H ABG pO2 78.6 L ABG HCO3 22.1 ABG O2 Saturation 93.7 L ABG Base Excess -5.2 FiO2 70% Sodium 145.3 H Potassium 4.4 Chloride 107 Carbon Dioxide 22 Anion Gap 16 BUN 24 H Creatinine 2.05 H Est GFR ( Amer) 31 L Glucose 166 H Calcium 9.4 Magnesium 2.2 Total Bilirubin 2.5 H AST 153 H Alkaline Phosphatase 147 H Total Protein 7.9 Albumin 4.7 10/28/19 13:01 Troponin I 0.090 NT-Pro-B Natriuret Pep 44312 H Impressions: Chest X-Ray 10/28/19 11:13 IMPRESSION: Patchy opacification in the mid and lower lung zones with prominent and indistinct pulmonary vasculature and cardiomegaly. Constellation of find ings likely represents pulmonary edema in the setting of congestive heart failure. A superimposed infectious process would be difficult to exclude. Recommend radiographic follow-up. Assessment and Plan - Diagnosis (1) Acute on chronic systolic (congestive) heart failure Is this a current diagnosis for this admission?: Yes Plan: Evaluation emergency department revealed mildly elevated proBNP from baseline with chest x-ray suggesting mild pulmonary edema versus infectious process. On exam, the patient was BiPAP dependent, lethargic, but with clear lung sounds and no peripheral edema. She actually appears somewhat dry with chapped lips and poor skin turgor. The patient is admitted to [facility] on continuous cardiac telemetry. We will consult her established campus dean, Dr. Ragsdale Discussed with him by phone today; advises to discontinue nitroglycerin drip. We will resume the patient's home dose Entresto, metoprolol. We will hold on diuretics at this time as the patient actually appears to be dry (dry mucous membranes, poor skin turgor, no peripheral edema, reported fever and diarrhea). Cardiac diet. Daily weights. Strict I&Os (2) COPD (chronic obstructive pulmonary disease) Qualifiers: COPD type: unspecified COPD Qualified Code(s): J44.9 - Chronic obstructive pulmonary disease, unspecified Is this a current diagnosis for this admission?: Yes Plan: ABG reveals respiratory acidosis with hypoxia and hypercapnia. On exam, patient has diminished but clear lung sounds. We will provide supplemental oxygen BiPAP as needed to maintain oxygen sat urations greater than 89%. Start on scheduled and as needed nebulizer treatments. Pulmonary toilet is encouraged with incentive spirometer, flutter valve, and early ambulation. No indications for antibiotic or steroid therapy at this time. (3) Acute respiratory failure with hypoxia and hypercapnia Is this a current diagnosis for this admission?: Yes Plan: Chest x-ray shows patchy infiltrates; pulmonary edema with possible underlying infectious process. Recommends follow-up imaging. CTA chest pending. COVID-19 pending. Primary management as described above. (4) Diarrhea Qualifiers: Diarrhea type: unspecified type Qualified Code(s): R19.7 - Diarrhea, unspecified Is this a current diagnosis for this admission?: Yes Plan: Blood cultures pending Stool cultures pending. COVID-19 pending Monitor I&O's. (5) Acute renal failure superimposed on chronic kidney disease Qualifiers: Acute renal failure type: unspecified Chronic kidney disease stage: stage 3 (moderate) Qualified Code(s): N17.9 - Acute kidney failure, unspecified; N18.3 - Chronic kidney disease, stage 3 (moderate) Is this a current diagnosis for this admission?: Yes Plan: Creatinine 2.05; up from baseline of 1.50. Potentially related to acute CHF exacerbation, however, the patient does appear to be somewhat dehydrated and reports fever and diarrhea. We will hold on diuretics at this time. We will monitor p.o. intake; consider IV fluids. Optimize cardiac output. Avoid nephrotoxic medications. Follow-up chemistries. (6) CAD (coronary artery disease) Qualifiers: Coronary Disease-Associated Artery/Lesion type: barrow artery [place] vs. transplanted heart: barrow heart Associated angina: without angina Qualified Code(s): I25.10 - Atherosclerotic heart disease of barrow coronary artery without angina pectoris Is this a current diagnosis for this admission?: Yes Plan: Monitor on telemetry. Continue home dose statin, aspirin, Entresto. (7) Cardiomyopathy Qualifiers: Cardiomyopathy type: dilated Qualified Code(s): I42.0 - Dilated cardiomyopathy Is this a current diagnosis for this admission?: Yes Plan: Cardiology consulted. (8) HTN (hypertension) Qualifiers: Is this a current diagnosis for this admission?: Yes Plan: Antihypertensives as above. (9) RUBIN (obstructive sleep apnea) Is this a current diagnosis for this admission?: Yes Plan: BiPAP nightly and PRN (10) Obesity (BMI 30.0-34.9) Is this a current diagnosis for this admission?: Yes Plan: Lifestyle modification dietary discretion will be encouraged. Registered dietitian is consulted. Cardiac diet. - Time Time Spent with patient: 35 or more minutes Medications reviewed and adjusted accordingly: Yes Anticipated Discharge Disposition: Home, Self Care Anticipated Discharge Timeframe: >72 hrs - Inpatient Certification Based on my medical assessment, after consideration of the patient's comorbidities, presenting symptoms, or acuity I expect that the services needed warrant INPATIENT care.: Yes I certify that my determination is in accordance with my understanding of Medicare's requirements for reasonable and necessary INPATIENT services [42 CFR 412.3e].: Yes Medical Necessity: Significant Comorbidiites Make Outpatient Treatment Too Risky, Need Close Monitoring Due to Risk of Patient Decompensation, Need For Continuous Telemetry Monitoring, Risk of Complication if Not Cared For in Hospital
[2019-10-28 17:16] LABS: APPEARANCE,URINE SLIGHTLY-CLOUDY; BILIRUBIN,URINE NEGATIVE (NEGATIVE); COLOR,URINE YELLOW; GLUCOSE, URINE NEGATIVE (NEGATIVE); KETONES,URINE NEGATIVE (NEGATIVE); PROTEIN,URINE 30 mg/dL (NEGATIVE); URINE SPECIFIC GRAVITY 1.008; UROBILINOGEN,URINE NEGATIVE mg/dL (<2.0)
[2019-10-28 18:40] LABS: ARTERIAL BLOOD BASE EXCESS -3.7 mmol/L; ARTERIAL BLOOD FIO2 65%; ARTERIAL BLOOD H2CO3 1.43 mmol/L (1.05-1.35); ARTERIAL BLOOD HCO3 22.8 mmol/L (20-24); ARTERIAL BLOOD O2 SATURATION 96.5 % (94-98); ARTERIAL BLOOD PCO2 47.4 mmHg (35-45); ARTERIAL BLOOD PO2 94.9 mmHg (80-100); ARTERIAL BLOOD TOTAL CO2 24.3 mmol/L (21-25)
--- NOTE | 2019-10-28 19:15 | RADIOLOGY REPORT (SQ) ---
EXAM DESCRIPTION: CT CHEST WITHOUT IMAGES COMPLETED DATE/TIME: 10/28/2019 7:02 pm REASON FOR STUDY: dyspnea, hypoxia COMPARISON: CT chest 05/27/2019, 04/23/2019, 02/10/2019 TECHNIQUE: CT scan performed of the chest without intravenous contrast. Images reviewed with lung, soft tissue and bone windows. Reconstructed coronal and sagittal MPR images reviewed. All images st ored on PACS. All CT scanners at this facility use dose modulation, iterative reconstruction, and/or weight based d osing when appropriate to reduce radiation dose to as low as reasonably achievable (ALARA). [facility]: Dose Right [facility]: CareDose [facility]: Dose Right [facility]: Teradose 4D [facility]: [employer] RADIATION DOSE: CT Rad equipment meets quality standard of care and radiation dose reduction techniq ues were employed. CTDIvol: 19.1 mGy. DLP: 765 mGy-cm. mGy. LIMITATIONS: No technical limitations. FINDINGS: LUNGS AND PLEURA: Diffuse bilateral airspace disease, edema versus pneumonia versus ARDS. Trace fluid in the right and left major fissure. No pneumothorax. HILAR AND MEDIASTINAL STRUCTURES: Mild stable mediastinal adenopathy HEART AND VASCULAR STRUCTURES: Stable massive cardiomegaly. No pericardialeffusion UPPER ABDOMEN: No significant findings. Limited exam. THYROID AND OTHER SOFT TISSUES: No masses. No adenopathy. BONES: No significant finding. HARDWARE: None in the chest. OTHER: No other significant findings. IMPRESSION: Dense diffuse bilateral airspace disease edema versus pneumonia versus ARDS Trace fluid in the fissures Massive cardiomegaly TECHNICAL DOCUMENTATION: JOB ID: [id number] Quality ID # [id number]: Final reports with documentation of one or more dose reduction techniques (e.g., Au tomated exposure control, adjustment of the mA and/or kV according to patient size, use of iterative reconstruction technique) 2010 [employer]- All Rights Reserved Reading location - IP/workstation name: [id number]
--- NOTE | 2019-10-28 20:53 | EKG REPORT ---
SEVERITY:- ABNORMAL ECG - VENTRICULAR-PACED COMPLEXES NONSPECIFIC IVCD WITH LAD LVH WITH SECONDARY REPOLARIZATION ABNORMALITY : Confirmed by: Griselda Martin MD 28-Oct-2019 20:52:18
[2019-10-28] MEDS: OXYCODONE-ACETAMINOPHEN 5-325 MG TABLET PO PRN (23:23)
[2019-10-28] MEDS: FAMOTIDINE 20 MG TABLET PO SCH (23:24)
[2019-10-28] MEDS: SACUBITRIL/VALSARTAN 49 MG/51 MG TABLET PO SCH (23:24)
[2019-10-28] MEDS: METOPROLOL SUCCINATE 25 MG TAB.SR.24H PO SCH (23:24)
[2019-10-28] MEDS: OXYCODONE HCL IR 5 MG TABLET PO PRN (23:24)
[2019-10-29] MEDS: OXYCODONE-ACETAMINOPHEN 5-325 MG TABLET PO PRN ×5 (04:46→21:34)
[2019-10-29] MEDS: OXYCODONE HCL IR 5 MG TABLET PO PRN ×5 (04:47→21:35)
[2019-10-29 06:05] LABS: HEMATOCRIT 33.8 % (36.0-47.0); HEMOGLOBIN 11.3 g/dL (12.0-15.5); MEAN CORPUSCULAR HEMOGLOBIN 30.9 pg (27.0-33.4); MEAN CORPUSCULAR HGB CONC 33.4 g/dL (32.0-36.0); MEAN CORPUSCULAR VOLUME 92 fl (80-97); PLATELET COUNT 221 10^3/uL (150-450); RED BLOOD COUNT 3.65 10^6/uL (3.72-5.28); RED CELL DISTRIBUTION WIDTH 17.8 % (11.5-14.0); WHITE BLOOD COUNT 8.2 10^3/uL (4.0-10.5)
[2019-10-29 06:42] LABS: ANION GAP 12 (5-19); BLOOD UREA NITROGEN 34 mg/dL (7-20); CALCIUM 8.9 mg/dL (8.4-10.2); CARBON DIOXIDE 27 mmol/L (22-30); CHLORIDE 104 mmol/L (98-107); GLUCOSE 78 mg/dL (75-110); POTASSIUM 4.3 mmol/L (3.6-5.0)
[2019-10-29] MEDS: FUROSEMIDE INJ/PF 20 MG/2 ML SDV IV SCH ×2 (07:52→21:28)
[2019-10-29] MEDS ORDERED: ALBUTEROL SULFATE 0.083% NEB 2.5 MG/3 ML AMPUL NEB PRN (08:51)
[2019-10-29] MEDS ORDERED: IPRATROPIUM/ALBUTEROL 0.5-2.5 MG/3 ML AMPUL NEB ONE (08:51)
[2019-10-29] MEDS: SACUBITRIL/VALSARTAN 49 MG/51 MG TABLET PO SCH ×2 (09:58→21:31)
[2019-10-29] MEDS: PREDNISONE 20 MG TABLET PO SCH (09:58)
[2019-10-29] MEDS: METOPROLOL SUCCINATE 25 MG TAB.SR.24H PO SCH (09:58)
[2019-10-29] MEDS: DOCUSATE SODIUM 100 MG CAPSULE PO SCH (09:58)
[2019-10-29] MEDS: ASPIRIN 81 MG TABLET, ENT COATED PO SCH (09:58)
[2019-10-29] MEDS ORDERED: SULFAMETHOXAZOLE/TRIMETHOPRIM 800-160 MG TABLET PO SCH (10:30)
[2019-10-29] MEDS: FAMOTIDINE 20 MG TABLET PO SCH ×3 (10:47→21:33)
--- NOTE | 2019-10-29 11:49 | PDOC PROGRESS REPORT ---
Subjective Progress Note for:: 10/29/19 Subjective:: FRANKI DEL ROSARIO is a 48 year old female, well-known to our service, with a past medical history significant for CAD, CABG in 2006, subsequent artery stenting, CHF with LVEF of 20 to 25%, atrial fibrillation, AICD, COPD, CKD 3, GERD, depression, morbid obesity, RUBIN, and remote substance abuse who was admitted 10/28/2019 with acute on chronic respiratory failure with hypoxia and hypercapnia, COPD exacerbation, CHF exacerbation, and dehydration. Patient is seen on morning rounds. She is found resting bed, comfortably, on BiPAP. She is awake oriented x4. She reports generalized fatigue but otherwise is feeling better today. She complains of large amount of thick, blood streaked, sputum this morning. She reports that the cough is new, however, her overall dyspnea is improved as compared to yesterday. No further episodes of diarrhea. She further denies fever, chills, chest pain, palpitations, orthopnea, abdominal pain, nausea and vomiting. She reports her baseline chronic pain and request to resume her home dose Percocet and Xanax. She has no other questions or concerns at this time. No concerns per nursing. Reason For Visit: RESPIRATORY FAILURE WITH HYPOXIA AND HYPERCAPNIA Physical Exam Vital Signs: Temp Pulse Resp BP Pulse Ox 97.5 F 60 15 91/60 L 100 10/29/19 07:31 10/29/19 09:32 10/29/19 09:32 10/29/19 07:31 10/29/19 09:32 Intake & Output 10/28/19 10/29/19 10/30/19 06:59 06:59 06:59 Intake Total 266 Output Total 800 Balance -534 Weight 108.5 kg General appearance: PRESENT: no acute distress, cooperative, obese, well- developed, well-nourished Head exam: PRESENT: atraumatic, normocephalic Eye exam: PRESENT: conjunctiva pink, EOMI, PERRLA. ABSENT: scleral icterus Mouth exam: PRESENT: moist, tongue midline Respiratory exam: PRESENT: crackles - Bibasilar, prolonged expiratory phas, symmetrical, unlabored, wheezes, other - BiPAP and supplemental oxygen. ABSENT: rales, rhonchi Cardiovascular exam: PRESENT: RRR. ABSENT: diastolic murmur, rubs, systolic murmur Pulses: PRESENT: normal dorsalis pedis pul Vascular exam: PRESENT: normal capillary refill GI/Abdominal exam: PRESENT: normal bowel sounds, soft. ABSENT: distended, guarding, mass, organolmegaly, rebound, tenderness Rectal exam: PRESENT: deferred Extremities exam: PRESENT: full ROM. ABSENT: calf tenderness, clubbing, pedal edema Neurological exam: PRESENT: alert, awake, oriented to person, oriented to place, oriented to time, oriented to situation, CN II-XII grossly intact. ABSENT: motor sensory deficit Psychiatric exam: PRESENT: appropriate affect, normal mood. ABSENT: homicidal ideation, suicidal ideation Skin exam: PRESENT: dry, intact, warm. ABSENT: cyanosis, rash Results Laboratory Results: 10/29/19 04:55 10/29/19 04:55 10/28/19 10/28/19 10/28/19 12:49 13:01 13:01 WBC 9.7 RBC 3.76 Hgb 11.5 L Hct 34.8 L MCV 93 MCH 30.7 MCHC 33.1 RDW 17.6 H Plt Count 283 Seg Neutrophils % 85.2 H Carbonic Acid 1.52 H HCO3/H2CO3 Ratio 14:1 ABG pH 7.26 L ABG pCO2 50.6 H ABG pO2 78.6 L ABG HCO3 22.1 ABG O2 Saturation 93.7 L ABG Base Excess -5.2 FiO2 70% Sodium 145.3 H Potassium 4.4 Chloride 107 Carbon Dioxide 22 Anion Gap 16 BUN 24 H Creatinine 2.05 H Est GFR ( Amer) 31 L Glucose 166 H Calcium 9.4 Magnesium 2.2 Total Bilirubin 2.5 H AST 153 H Alkaline Phosphatase 147 H Total Protein 7.9 Albumin 4.7 Urine Color Urine Appearance Urine pH Ur Specific [place] Urine Protein Urine Glucose (UA) Urine Ketones Urine Blood Urine RBC (Auto) 10/28/19 10/28/19 10/29/19 13:35 18:30 04:55 WBC RBC Hgb Hct MCV MCH MCHC RDW Plt Count Seg Neutrophils % Carbonic Acid 1.43 H HCO3/H2CO3 Ratio 15:1 ABG pH 7.30 L ABG pCO2 47.4 H ABG pO2 94.9 ABG HCO3 22.8 ABG O2 Saturation 96.5 ABG Base Excess -3.7 FiO2 65% Sodium 142.8 Potassium 4.3 Chloride 104 Carbon Dioxide 27 Anion Gap 12 BUN 34 H Creatinine 1.91 H Est GFR ( Amer) 34 L Glucose 78 Calcium 8.9 Magnesium 2.1 Total Bilirubin AST Alkaline Phosphatase Total Protein Albumin Urine Color YELLOW Urine Appearance SLIGHTLY-CLOUDY Urine pH 5.0 Ur Specific [place] 1.008 Urine Protein 30 H Urine Glucose (UA) NEGATIVE Urine Ketones NEGATIVE Urine Blood SMALL H Urine RBC (Auto) 6 10/29/19 04:55 WBC 8.2 RBC 3.65 L Hgb 11.3 L Hct 33.8 L MCV 92 MCH 30.9 MCHC 33.4 RDW 17.8 H Plt Count 221 Seg Neutrophils % Carbonic Acid HCO3/H2CO3 Ratio ABG pH ABG pCO2 ABG pO2 ABG HCO3 ABG O2 Saturation ABG Base Excess FiO2 Sodium Potassium Chloride Carbon Dioxide Anion Gap BUN Creatinine Est GFR ( Amer) Glucose Calcium Magnesium Total Bilirubin AST Alkaline Phosphatase Total Protein Albumin Urine Color Urine Appearance Urine pH Ur Specific [place] Urine Protein Urine Glucose (UA) Urine Ketones Urine Blood Urine RBC (Auto) 10/28/19 13:01 Troponin I 0.090 NT-Pro-B Natriuret Pep 28716 H Impressions: Chest CT 10/28/19 00:00 IMPRESSION: Dense diffuse bilateral airspace disease edema versus pneumonia versus ARDS Trace fluid in the fissures Massive cardiomegaly Chest X-Ray 10/28/19 11:13 IMPRESSION: Patchy opacification in the mid and lower lung zones with prominent and indistinct pulmonary vasculature and cardiomegaly. Constellation of findings likely represents pulmonary edema in the setting of congestive heart failure. A superimposed infectious process would be difficult to exclude. Recommend radiographic follow-up. Assessment and Plan - Diagnosis (1) Acute on chronic systolic (congestive) heart failure Is this a current diagnosis for this admission?: Yes Plan: Evaluation emergency department revealed mildly elevated proBNP from baseline with chest x-ray suggesting mild pulmonary edema versus infectious process. On exam, the patient was BiPAP dependent, lethargic, but with clear lung sounds and no peripheral edema. She actually appeared somewhat dry with chapped lips and poor skin turgor. The patient is admitted to [facility] on continuous cardiac telemetry. We will consult her established corporate [employer], Dr. Ragsdale. Holding amiodarone per his recommendations. We will resume the patient's home dose Entresto, metoprolol. Diurese gently with IV furosemide 20 mg twice daily Cardiac diet. Daily weights. Strict I&Os (2) COPD (chronic obstructive pulmonary disease) Qualifiers: COPD type: COPD with acute exacerbation Qualified Code(s): J44.1 - Chronic obstructive pulmonary disease with (acute) exacerbation Is this a current diagnosis for this admission?: Yes Plan: ABG reveals respiratory acidosis with hypoxia and hypercapnia. Bibasilar crackles, wheezing throughout, sputum production today. Hx MRSA in sputum. Blood and Sputum culture pending. We will provide supplemental oxygen BiPAP as needed to maintain oxygen saturations greater than 89%. Start on scheduled and as needed nebulizer treatments. Prednisone 60 mg p.o. daily. Mucinex twice daily. Will start p.o. Bactrim DS twice daily. Pulmonary toilet is encouraged with incentive spirometer, flutter valve, and early ambulation. No indications for antibiotic or steroid therapy at this time. (3) Acute respiratory failure with hypoxia and hypercapnia Is this a current diagnosis for this admission?: Yes Plan: Improved. Chest x-ray shows patchy infiltrates; pulmonary edema with possible underlying infectious process. Recommends follow-up imaging. CTA chest pending. COVID-19 pending. Primary management as described above. (4) Diarrhea Qualifiers: Diarrhea type: unspecified type Qualified Code(s): R19.7 - Diarrhea, unspecified Is this a current diagnosis for this admission?: Yes Plan: Improved; no further episodes. Blood cultures pending Stool cultures pending. COVID-19 negative Monitor I&O's. (5) Acute renal failure superimposed on chronic kidney disease Qualifiers: Acute renal failure type: unspecified Chronic kidney disease stage: stage 3 (moderate) Qualified Code(s): N17.9 - Acute kidney failure, unspecified; N18.3 - Chronic kidney disease, stage 3 (moderate) Is this a current diagnosis for this admission?: Yes Plan: Improved; Creatinine 2.05-> 1.91; up from baseline of 1.50. Potentially related to acute CHF exacerbation, however, the patient does appear to be somewhat dehydrated and reports fever and diarrhea. Gentle diuresis as mentioned above. We will monitor p.o. intake; consider IV fluids. Optimize cardiac output. Avoid nephrotoxic medications. Follow-up chemistries. (6) CAD (coronary artery disease) Qualifiers: Coronary Disease-Associated Artery/Lesion type: [place] artery [place] vs. transplanted heart: [place] heart Associated angina: without angina Qualified Code(s): I25.10 - Atherosclerotic heart disease of [place] coronary artery without angina pectoris Is this a current diagnosis for this admission?: Yes Plan: Monitor on telemetry. Continue home dose statin, aspirin, Eliquis. (7) Cardiomyopathy Qualifiers: Cardiomyopathy type: dilated Qualified Code(s): I42.0 - Dilated cardiomyopathy Is this a current diagnosis for this admission?: Yes Plan: Cardiology consulted. (8) HTN (hypertension) Qualifiers: Is this a current diagnosis for this admission?: Yes Plan: Antihypertensives as above. (9) RUBIN (obstructive sleep apnea) Is this a current diagnosis for this admission?: Yes Plan: BiPAP nightly and PRN (10) Obesity (BMI 30.0-34.9) Is this a current diagnosis for this admission?: Yes Plan: Lifestyle modification dietary discretion will be encouraged. Registered dietitian is consulted. Cardiac diet. - Time Time Spent with patient: 35 or more minutes Medications reviewed and adjusted accordingly: Yes Anticipated Discharge Disposition: Home, Self Care Anticipated Discharge Timeframe: within 72 hours
[2019-10-29] MEDS: ALPRAZOLAM 0.5 MG TABLET PO PRN ×2 (12:32→21:31)
[2019-10-29] MEDS: GUAIFENESIN 600 MG TABLET.SA PO SCH ×2 (13:30→21:31)
[2019-10-29] MEDS: IPRATROPIUM/ALBUTEROL 0.5-2.5 MG/3 ML AMPUL NEB SCH (16:07)
--- NOTE | 2019-10-29 16:20 | PDOC CONSULTATION ---
Consultation-Blank Consultation: CARDIOLOGY PROGRESS NOTE by Dr. Girselda Martin on 10/29/2019. Patient seen at 3:30 PM. 60 minutes spent on this patient with more than 50% time spent in direct patient care. REASON FOR CONSULTATION: Acute on chronic respiratory failure with a cause being acute on chronic left regular systolic heart failure and acute on chronic respiratory failure and COPD exacerbation. CONSULT REQUESTING PROVIDER: Ms. Lexy Hernandez, And Kathy[facility]. HISTORY OF PRESENT ILLNESS: Patient slightly drowsy and not a very good historian. She states that she had sudden onset of shortness of breath with cough productive of slightly yellowish sputum. She also has been having PND and orthopnea but no significant increase in her leg edema. In the emergency room she was found to be with a blood pressure which was high and was in acute on rest chronic respiratory failure. She was also found to have low-grade fever. The patient at present is on BiPAP and feels better. She denies any anginal symptoms. There is no palpitations. On EKG shows ventricular paced rhythm with atrial tracking. There is no firing of AICD. She has a history of sleep apnea and has multiple admissions for respiratory failure with hypercapnia. I believe she has a noninvasive ventilator at home [trilogy], but the patient states she does not know how to operate this. Will address this on discharge. Past Medical History Cardiac Medical History: Reports: Atrial Fibrillation, Congestive Heart Failure, Coronary Artery Disease, Myocardial Infarction, Hyperlipidema, Hypertension Denies: DVT, Pulmonary Embolism Pulmonary Medical History: Reports: Bronchitis, Chronic Obstructive Pulmonary Disease (COPD), Intubation, Pneumonia, Respiratory Failure, Sleep Apnea Denies: Asthma EENT Medical History: Reports: None Neurological Medical History: Denies: Ischemic CVA, Seizures Endocrine Medical History: Reports: Obesity Denies: Diabetes Mellitus Type 2, Hypothyroidism Renal/ Medical History: Reports: Chronic Kidney Disease GI Medical History: Reports: Gastroesophageal Reflux Disease, Hepatitis Denies: Cirrhosis, Crohn's Disease, Hiatal Hernia, Ulcerative Colitis Musculoskeltal Medical History: Reports: None Skin Medical History: Reports: None Psychiatric Medical History: Reports: Depression, General Anxiety Disorder Hematology: Reports: Anemia Infectious Medical History: Reports: Methicillin-Resistant Staph Aureus Past Surgical History Past Surgical History: Reports: Cardiac Catheterization - multiple, Section, Coronary Artery Bypass Graft - 2006, Coronary Stent - Multiple, Hysterectomy, Pacemaker - AICD, Tubal Ligation Denies: Mastectomy Social History Information Source: Patient, H Records Lives with: Family Smoking Status: Former Smoker Frequency of Alcohol Use: Occasional Hx Recreational Drug Use: Yes - remote Drugs: Cocaine, Marijuana Hx Prescription Drug Abuse: No - Advance Directive Resuscitation Status: Full Code with the patient's daughter is a surrogate healthcare decision maker. Current Medications Generic Name Dose Route Start Last Admin Trade Name Freq PRN Reason Stop Dose Admin Al Hydrox/Mg Hydrox/Simethicone 30 ml 10/28/19 15:57 Maalox Plus Susp 30 Udcup PO 11/27/19 15:56 Q4HP PRN HEARTBURN Albuterol 2.5 mg 10/29/19 08:51 Ventolin 0.083% Neb 2.5 Mg/3 Ml Ampul NEB 11/28/19 08:50 RTQ4HP PRN SHORTNESS OF BREATH Albuterol/Ipratropium 3 ml 10/29/19 16:00 10/29/19 16:07 Duoneb 3 Ml Ampul NEB 11/28/19 15:59 3 ml RTQ8 WILY Administration Alprazolam 0.5 mg 10/29/19 11:46 10/29/19 21:31 Xanax 0.5 Mg Tablet PO 11/05/19 11:45 0.5 mg Q6HP PRN Administration ANXIETY Apixaban 2.5 mg 10/29/19 22:00 10/29/19 21:34 Eliquis 2.5 Mg Tablet PO 11/28/19 21:59 2.5 mg Q12 WILY Administration Aspirin 81 mg 10/29/19 10:00 10/29/19 09:58 Ecotrin 81 Mg Ec Tablet PO 11/28/19 09:59 81 mg DAILY WILY Administration Atorvastatin Calcium 80 mg 10/29/19 22:00 10/29/19 21:33 Lipitor 80 Mg Tablet PO 11/28/19 21:59 80 mg QHS WILY Administration Buspirone HCl 10 mg 10/29/19 22:00 10/29/19 21:33 Buspar 10 Mg Tablet PO 11/28/19 21:59 10 mg Q12 WILY Administration Docusate Sodium 100 mg 10/29/19 10:00 10/29/19 09:58 Colace 100 Mg Capsule PO 11/28/19 09:59 100 mg DAILY WILY Administration Famotidine 20 mg 10/29/19 11:00 10/29/19 21:33 Pepcid 20 Mg Tablet PO 11/28/19 10:59 20 mg Q12 WILY Administration Furosemide 20 mg 10/29/19 08:00 10/29/19 21:28 Lasix Inj/Pf 20 Mg/2 Ml Sdv IV 11/28/19 07:59 20 mg Q12@0800,2000 WILY Administration Guaifenesin 600 mg 10/29/19 12:00 10/29/19 21:31 Mucinex Sr 600 Mg Tablet.Sa PO 11/28/19 11:59 600 mg Q12 WILY Administration Isosorbide Mononitrate 30 mg 10/30/19 08:00 Imdur 30 Mg Tablet.Er PO 11/29/19 07:59 QAM WILY Magnesium Hydroxide 30 ml 10/28/19 15:57 Milk Of Magnesia 30 Ml Udcup PO 11/27/19 15:56 HSP PRN FOR CONSTIPATION Metoprolol Succinate 50 mg 10/29/19 22:00 10/29/19 21:34 Toprol Xl 50 Mg Tab.Sr PO 11/28/19 21:59 50 mg Q12 WILY Administration Ondansetron HCl 4 mg 10/28/19 15:57 10/29/19 18:06 Zofran Inj/Pf 4 Mg/2 Ml Sdv IV 11/27/19 15:56 4 mg Q6HP PRN Administration FOR NAUSEA/VOMITING Oxycodone HCl 2.5 mg 10/28/19 23:16 10/29/19 21:35 Oxy-Ir 5 Mg Tablet PO 11/04/19 23:15 2.5 mg Q4HP PRN Administration PAIN Oxycodone/Acetaminophen 1 tab 10/28/19 23:15 10/29/19 21:34 Percocet 5-325 Mg Tablet PO 11/04/19 23:14 1 tab Q4HP PRN Administration PAIN Paroxetine HCl 20 mg 10/30/19 10:00 Paxil 20 Mg Tablet PO 11/29/19 09:59 DAILY WILY Prednisone 60 mg 10/29/19 10:00 10/29/19 09:58 Deltasone 20 Mg Tablet PO 11/28/19 09:59 60 mg DAILY WILY Administration Sacubitril/Valsartan 1 tab 10/28/19 22:00 10/29/19 21:31 Entresto 49 Mg/51 Mg Tablet PO 11/27/19 21:59 1 tab Q12 WILY Administration Sodium Chloride 2.5 ml 10/28/19 22:00 10/29/19 21:36 Saline Flush 2.5 Ml Monoject Prefil Syrin IV 11/27/19 21:59 2.5 ml Q8 WILY Administration Trimethoprim/Sulfamethoxazole 1 tab 10/29/19 22:00 10/29/19 21:33 Septra-Ds 800-160 Mg Tablet PO 11/05/19 10:29 1 tab Q12 WILY Administration Discontinued Medications Generic Name Dose Route Start Last Admin Trade Name Freq PRN Reason Stop Dose Admin Albuterol/Ipratropium 3 ml 10/29/19 08:51 10/29/19 09:32 Duoneb 3 Ml Ampul NEB 10/29/19 08:52 3 ml RTNOW ONE Administration Famotidine 20 mg 10/28/19 22:00 10/29/19 13:43 Pepcid 20 Mg Tablet PO 11/27/19 21:59 Not Given Q12 WILY Furosemide 60 mg 10/28/19 11:19 10/28/19 11:42 Lasix Inj/Pf 20 Mg/2 Ml Sdv IV 10/28/19 11:20 60 mg NOW ONE Administration Nitroglycerin/Dextrose 50 mg in 250 mls @ 0 mls/hr 10/28/19 11:59 10/28/19 13:06 Ntg Rtu 50 Mg/D5w 250 Ml Iv Premix Bottle IV 11/27/19 11:58 40 mcg/min CONTINUOUS PRN 12 mls/hr THIS MED IS NOT "PRN" Titration Protocol Titrate Metoprolol Succinate 25 mg 10/28/19 22:00 10/29/19 09:58 Toprol Xl 25 Mg Tab.Sr PO 11/27/19 21:59 25 mg Q12 WILY Administration Metoprolol Succinate 50 mg 10/29/19 22:00 Toprol Xl 25 Mg Tab.Sr PO 11/28/19 21:59 Q12 WILY Morphine Sulfate 4 mg 10/28/19 13:36 10/28/19 13:50 Morphine 10 Mg/Ml Inj IV 10/28/19 13:37 4 mg NOW ONE Administration Nitroglycerin 1 tab 10/28/19 11:19 10/28/19 11:45 Nitrostat 0.4 Mg (1/150 Gr) Tabs 25/Bottle SL 10/28/19 11:20 1 tab NOW ONE Administration Ondansetron HCl 4 mg 10/28/19 11:40 10/28/19 11:52 Zofran Inj/Pf 4 Mg/2 Ml Sdv IV 10/28/19 11:41 4 mg NOW ONE Administration Sacubitril/Valsartan 1 tab 10/29/19 22:00 Entresto 49 Mg/51 Mg Tablet PO 11/28/19 21:59 Q12 WILY Trimethoprim/Sulfamethoxazole 1 tab 10/29/19 10:30 10/29/19 10:47 Septra-Ds 800-160 Mg Tablet PO 11/05/19 10:29 1 tab BID WILY Administration Family History Family History: Reviewed & Not Pertinent, CAD, CVA, DM, Hypertension, Malignancy, Other - Kidney disease Parental Family History Reviewed: Yes Children Family History Reviewed: Yes Sibling(s) Family History Reviewed.: Yes Medication/Allergy Home Medications: Alprazolam [Xanax 0.5 mg Tablet] 0.5 mg PO Q6HP PRN 02/08/19 Atorvastatin Calcium [Lipitor 80 mg Tablet] 80 mg PO QHS 02/08/19 Paroxetine HCl [Paxil 20 mg Tablet] 20 mg PO DAILY 02/08/19 Sacubitril/Valsartan [Entresto 49 mg/51 mg Tablet] 1 tab PO BID #30 tablet 05/29/19 Oxycodone HCl/Acetaminophen [Percocet 7.5-325 mg Tablet] 1 each PO Q6HP PRN 06/24/19 Apixaban [Eliquis 2.5 mg Tablet] 2.5 mg PO Q12 #0 tablet 07/03/19 Buspirone HCl [Buspar 10 mg Tablet] 10 mg PO Q12 #0 tablet 07/03/19 Colchicine [Colcrys 0.6 mg Tablet] 0.6 mg PO Q12 #14 tablet 07/03/19 Famotidine [Pepcid 20 mg Tablet] 20 mg PO Q12 tablet 07/03/19 Guaifenesin [Mucinex Sr 600 mg Tablet.sa] 600 mg PO Q12 #14 tablet.sa 07/03/19 Metoprolol Succinate [Toprol Xl 25 mg Tab.sr] 25 mg PO Q12 tab.sr.24h 07/03/19 Acetaminophen [Tylenol 325 mg Tablet] 650 mg PO Q4HP PRN 07/10/19 Aspirin [Ecotrin 81 mg EC Tablet] 81 mg PO DAILY 07/10/19 Isosorbide Mononitrate [Imdur 30 mg Tablet.er] 30 mg PO QAM 07/10/19 Oxycodone HCl/Acetaminophen [Percocet 5-325 mg Tablet] 2 tab PO Q4HP PRN 07/10/19 Temazepam [Restoril 15 mg Capsule] 15 mg PO HSP PRN 07/10/19 Furosemide [Lasix 40 mg Tablet] 40 mg PO QAM #30 tablet 07/12/19 Allergies/Adverse Reactions: egg [Egg] Allergy (Verified 07/09/19 20:06) propoxyphene [From Darvocet-N] Allergy (Verified 07/09/19 20:06) amiodarone Adverse Reaction (Verified 07/09/19 20:06) Respiratory distress diphenhydramine HCl [From Benadryl] Adverse Reaction (Verified 07/09/19 20:06) chest pain, bigemeny rhythm Review of Systems Constitutional: PRESENT: chills, fatigue, fever(s). ABSENT: headache(s), weight gain, weight loss Eyes: ABSENT: visual disturbances Ears: ABSENT: hearing changes Cardiovascular: PRESENT: dyspnea on exertion. ABSENT: chest pain, edema, orthropnea, palpitations Respiratory: PRESENT: cough, dyspnea. ABSENT: hemoptysis Gastrointestinal: PRESENT: diarrhea, nausea. ABSENT: abdominal pain, constipation, hematemesis, hematochezia, vomiting Genitourinary: ABSENT: dysuria, hematuria Musculoskeletal: ABSENT: joint swelling Integumentary: ABSENT: rash, wounds Neurological: ABSENT: abnormal gait, abnormal speech, confusion, dizziness, focal weakness, syncope Psychiatric: ABSENT: anxiety, depression, homidical ideation, suicidal ideation Endocrine: ABSENT: cold intolerance, heat intolerance, polydipsia, polyuria Hematologic/Lymphatic: ABSENT: easy bleeding, easy bruising Physical EXAMINATION: The patient is moderate to severely obese. At present in mild respiratory distress on BiPAP. Selected Entries 10/29/19 15:47 Temperature 97.6 F Temperature Axillary Source Pulse Rate 60 Respiratory 17 Rate Blood Pressure 111/77 Blood Pressure 88 Mean BP Location Left Arm BP Position Supine O2 Sat by Pulse 94 Oximetry Oxygen Delivery Bipap Method Percent of 40 Oxygen HEAD: Is atraumatic normocephalic. EYES: Pupils are equal round regular reactive to light. HEENT is negative. SKIN: There is no skin rashes or skin lesions. There is no particular ecchymosis. NECK: Is supple. There is mild JVD present. Carotids are equal there is no bruits. There is no lymphadenopathy. There is no goiter. There is no accessory muscle respiration use. Trachea central. LUNGS: . There is diminished air entry. On percussion there is hyperresonance. On palpation there is no chest wall tenderness, dry crackles at both bases, and also some fine rales of CHF. HEART: S1-S2 is heard. There is no S3 gallop. There is no S4 gallop. There is systolic murmur mitral regurgitation tricuspid regurgitation present. There is no aortic stenosis murmur. There is no aortic insufficiency murmur. There is no rub. ABDOMEN: Is obese. Nontender. There is no hepatosplenomegaly. Bowel sounds are well heard. There is no rebound guarding or rigidity. EXTREMITIES: Femorals are deep. Femorals are diminished. There is no femoral bruits. There is decreased leg pulses. There is mild pedal edema. 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 PSYCHIATRIC: The patient judgment insight are intact. She does not appear to be agitated or anxious. MUSCULOSKELETAL: There is swelling and tenderness of the right knee with increased warmth. EKG: Ventricular paced rhythm with atrial tracking. Labs- Entire Visit 10/28/19 10/28/19 10/28/19 12:49 13:01 13:01 WBC 9.7 RBC 3.76 Hgb 11.5 L Hct 34.8 L MCV 93 MCH 30.7 MCHC 33.1 RDW 17.6 H Plt Count 283 Lymph % (Auto) 9.3 L Boyle % (Auto) 4.8 Eos % (Auto) 0.1 Baso % (Auto) 0.6 Absolute Neuts (auto) 8.2 Absolute Lymphs (auto) 0.9 Absolute Monos (auto) 0.5 Absolute Eos (auto) 0.0 Absolute Basos (auto) 0.1 Seg Neutrophils % 85.2 H Carbonic Acid 1.52 H HCO3/H2CO3 Ratio 14:1 ABG pH 7.26 L ABG pCO2 50.6 H ABG pO2 78.6 L ABG HCO3 22.1 ABG Total CO2 23.7 ABG O2 Saturation 93.7 L ABG Base Excess -5.2 FiO2 70% Sodium 145.3 H Potassium 4.4 Chloride 107 Carbon Dioxide 22 Anion Gap 16 BUN 24 H Creatinine 2.05 H Est GFR ( Amer) 31 L Est GFR (MDRD) Non-Af 26 L Glucose 166 H Calcium 9.4 Magnesium 2.2 Total Bilirubin 2.5 H Direct Bilirubin 1.2 H Neonat Total Bilirubin Not Reportable Neonat Direct Bilirubin Not Reportable Neonat Indirect Bili Not Reportable AST 153 H ALT 93 H Alkaline Phosphatase 147 H Troponin I NT-Pro-B Natriuret Pep Total Protein 7.9 Albumin 4.7 Urine Color Urine Appearance Urine pH Ur Specific [place] Urine Protein Urine Glucose (UA) Urine Ketones Urine Blood Urine Nitrite (Reflex) Urine Bilirubin Urine Urobilinogen Leukocyte Esterase Rfl Urine RBC (Auto) Urine Bacteria (Auto) Urine WBC (Reflex) Squamous Epi Cells Auto Urine Mucus (Auto) Urine Ascorbic Acid SARS-CoV-2 (PCR) 10/28/19 10/28/19 10/28/19 13:01 13:35 18:30 WBC RBC Hgb Hct MCV MCH MCHC RDW Plt Count Lymph % (Auto) Boyle % (Auto) Eos % (Auto) Baso % (Auto) Absolute Neuts (auto) Absolute Lymphs (auto) Absolute Monos (auto) Absolute Eos (auto) Absolute Basos (auto) Seg Neutrophils % Carbonic Acid 1.43 H HCO3/H2CO3 Ratio 15:1 ABG pH 7.30 L ABG pCO2 47.4 H ABG pO2 94.9 ABG HCO3 22.8 ABG Total CO2 24.3 ABG O2 Saturation 96.5 ABG Base Excess -3.7 FiO2 65% Sodium Potassium Chloride Carbon Dioxide Anion Gap BUN Creatinine Est GFR ( Amer) Est GFR (MDRD) Non-Af Glucose Calcium Magnesium Total Bilirubin Direct Bilirubin Neonat Total Bilirubin Neonat Direct Bilirubin Neonat Indirect Bili AST ALT Alkaline Phosphatase Troponin I 0.090 NT-Pro-B Natriuret Pep 70278 H Total Protein Albumin Urine Color YELLOW Urine Appearance SLIGHTLY-CLOUDY Urine pH 5.0 Ur Specific [place] 1.008 Urine Protein 30 H Urine Glucose (UA) NEGATIVE Urine Ketones NEGATIVE Urine Blood SMALL H Urine Nitrite (Reflex) NEGATIVE Urine Bilirubin NEGATIVE Urine Urobilinogen NEGATIVE Leukocyte Esterase Rfl MODERATE H Urine RBC (Auto) 6 Urine Bacteria (Auto) TRACE Urine WBC (Reflex) 10 Squamous Epi Cells Auto 2 Urine Mucus (Auto) RARE Urine Ascorbic Acid NEGATIVE SARS-CoV-2 (PCR) 10/28/19 10/29/19 10/29/19 19:16 04:55 04:55 WBC 8.2 RBC 3.65 L Hgb 11.3 L Hct 33.8 L MCV 92 MCH 30.9 MCHC 33.4 RDW 17.8 H Plt Count 221 Lymph % (Auto) Boyle % (Auto) Eos % (Auto) Baso % (Auto) Absolute Neuts (auto) Absolute Lymphs (auto) Absolute Monos (auto) Absolute Eos (auto) Absolute Basos (auto) Seg Neutrophils % Carbonic Acid HCO3/H2CO3 Ratio ABG pH ABG pCO2 ABG pO2 ABG HCO3 ABG Total CO2 ABG O2 Saturation ABG Base Excess FiO2 Sodium 142.8 Potassium 4.3 Chloride 104 Carbon Dioxide 27 Anion Gap 12 BUN 34 H Creatinine 1.91 H Est GFR ( Amer) 34 L Est GFR (MDRD) Non-Af 28 L Glucose 78 Calcium 8.9 Magnesium 2.1 Total Bilirubin Direct Bilirubin Neonat Total Bilirubin Neonat Direct Bilirubin Neonat Indirect Bili AST ALT Alkaline Phosphatase Troponin I NT-Pro-B Natriuret Pep Total Protein Albumin Urine Color Urine Appearance Urine pH Ur Specific [place] Urine Protein Urine Glucose (UA) Urine Ketones Urine Blood Urine Nitrite (Reflex) Urine Bilirubin Urine Urobilinogen Leukocyte Esterase Rfl Urine RBC (Auto) Urine Bacteria (Auto) Urine WBC (Reflex) Squamous Epi Cells Auto Urine Mucus (Auto) Urine Ascorbic Acid SARS-CoV-2 (PCR) NEGATIVE Chest CT 10/28/19 00:00 IMPRESSION: Dense diffuse bilateral airspace disease edema versus pneumonia versus ARDS Trace fluid in the fissures Massive cardiomegaly Chest X-Ray 10/28/19 11:13 IMPRESSION: Patchy opacification in the mid and lower lung zones with prominent and indistinct pulmonary vasculature and cardiomegaly. Constellation of findings likely represents pulmonary edema in the setting of congestive heart failure. A superimposed infectious process would be difficult to exclude. Recommend radiographic follow-up. IMPRESSION/RECOMMENDATION: 1. Acute on chronic respiratory failure. This is secondary to pneumonia, obstructive sleep apnea, and acute on chronic systolic heart failure: And bilateral patchy pneumonia. Continue BiPAP. Seems that the patient has a noninvasive ventilator [trilogy] at home but states that she does not know how to use it. 2. Acute on chronic systolic heart failure. Patient with LV ejection fraction of 25%. beta-blockers and Entresto. Continue diuretics. Continue Entresto 3. Bilateral patchy pneumonia continue antibiotics; 4. Dilated cardiomyopathy with severely reduced LV ejection fraction. 5. History of MRSA pneumonia: The patient had a course of antibiotics. At present chest x-ray compatible with bibasilar pneumonia. This raises the possibility of recurrent pneumonias. Would recommend getting his swallow study to make sure that the patient is not aspirating. This is especially when the patient has respiratory failure causing hypercapnia and somnolence since. 6. History of amiodarone toxicity. Would recommend avoiding amiodarone 7. Chronic kidney disease: Watch renal function when diuresing the patient. 8. History of atrial fibrillation/flutter. At present most likely in sinus mechanism with paced ventricular rhythm recommend continue Eliquis. She has no history of TIA CVA 9. COPD. At present no evidence of acute exacerbation of COPD. 10. History of ventricular tachycardia, The patient has an AICD placed. If there is recurrence of ventricular tachycardia or major ventricular ectopic activity then would start the patient on small dose of sotalol. Would avoid amiodarone. 11. Hypertension: Blood pressure was high on admission at present blood pressure well controlled, on current medications. 12. Coronary artery disease: History of NE and history of coronary bypass graft surgery. No evidence of acute coronary syndrome/non-ST ST elevation NE this admission. 13. Obstructive sleep apnea. Note patient has been noncompliant with CPAP. Most likely has significant pulmonary hypertension. 14. AICD placement: Note the patient's basal rate is around 60 bpm. If the patient's heart failure continues then would recommend increasing the basal heart rate to 80 bpm to help combat the heart failure Medication reviewed medical regimen and management plan discussed and discussed with attending provider. Medical decision making is of high complexity. 60 minutes spent as patient more than 50% time spent in direct patient care. Will follow
[2019-10-29] MEDS: ONDANSETRON HCL INJ/PF 4 MG/2 ML SDV IV PRN (18:06)
[2019-10-29] MEDS: ATORVASTATIN CALCIUM 80 MG TABLET PO SCH (21:33)
[2019-10-29] MEDS: BUSPIRONE HCL 10 MG TABLET PO SCH (21:33)
[2019-10-29] MEDS: SULFAMETHOXAZOLE/TRIMETHOPRIM 800-160 MG TABLET PO SCH (21:33)
[2019-10-29] MEDS: METOPROLOL SUCCINATE 50 MG TAB.SR.24H PO SCH (21:34)
[2019-10-29] MEDS: APIXABAN 2.5 MG TABLET PO SCH (21:34)
[2019-10-29] MEDS ORDERED: METOPROLOL SUCCINATE 25 MG TAB.SR.24H PO SCH (22:00)
[2019-10-29] MEDS ORDERED: SACUBITRIL/VALSARTAN 49 MG/51 MG TABLET PO SCH (22:00)
[2019-10-30] MEDS: IPRATROPIUM/ALBUTEROL 0.5-2.5 MG/3 ML AMPUL NEB SCH ×3 (00:19→16:11)
[2019-10-30] MEDS: ALPRAZOLAM 0.5 MG TABLET PO PRN ×3 (03:13→23:37)
[2019-10-30] MEDS: OXYCODONE-ACETAMINOPHEN 5-325 MG TABLET PO PRN ×4 (03:14→21:08)
[2019-10-30] MEDS: OXYCODONE HCL IR 5 MG TABLET PO PRN ×4 (03:14→21:08)
[2019-10-30 06:46] LABS: HEMATOCRIT 31.2 % (36.0-47.0); HEMOGLOBIN 10.5 g/dL (12.0-15.5); MEAN CORPUSCULAR HEMOGLOBIN 30.9 pg (27.0-33.4); MEAN CORPUSCULAR HGB CONC 33.5 g/dL (32.0-36.0); MEAN CORPUSCULAR VOLUME 92 fl (80-97); PLATELET COUNT 224 10^3/uL (150-450); RED BLOOD COUNT 3.39 10^6/uL (3.72-5.28); RED CELL DISTRIBUTION WIDTH 17.6 % (11.5-14.0); WHITE BLOOD COUNT 5.7 10^3/uL (4.0-10.5)
[2019-10-30 07:07] LABS: ALBUMIN 3.7 g/dL (3.5-5.0); ALKALINE PHOSPHATASE 121 U/L (38-126); ANION GAP 8 (5-19); BILIRUBIN,TOTAL 1.5 mg/dL (0.2-1.3); BLOOD UREA NITROGEN 33 mg/dL (7-20); CALCIUM 8.7 mg/dL (8.4-10.2); CARBON DIOXIDE 30 mmol/L (22-30); CHLORIDE 104 mmol/L (98-107); GLUCOSE 112 mg/dL (75-110); POTASSIUM 4.5 mmol/L (3.6-5.0); TOTAL PROTEIN 6.7 g/dL (6.3-8.2)
[2019-10-30 07:15] LABS: ASPARTATE AMINO TRANSFERASE 923 U/L (14-36)
[2019-10-30] MEDS: FUROSEMIDE INJ/PF 20 MG/2 ML SDV IV SCH (09:07)
[2019-10-30] MEDS: ASPIRIN 81 MG TABLET, ENT COATED PO SCH (09:07)
[2019-10-30] MEDS: PAROXETINE HCL 20 MG TABLET PO SCH (09:07)
[2019-10-30] MEDS: FAMOTIDINE 20 MG TABLET PO SCH ×2 (09:07→23:31)
[2019-10-30] MEDS: APIXABAN 2.5 MG TABLET PO SCH ×2 (09:07→23:31)
[2019-10-30] MEDS: GUAIFENESIN 600 MG TABLET.SA PO SCH ×2 (09:07→23:31)
[2019-10-30] MEDS: ISOSORBIDE MONONITRATE 30 MG TAB.ER.24H PO SCH (09:07)
[2019-10-30] MEDS: DOCUSATE SODIUM 100 MG CAPSULE PO SCH (09:07)
[2019-10-30] MEDS: SULFAMETHOXAZOLE/TRIMETHOPRIM 800-160 MG TABLET PO SCH ×2 (09:07→23:31)
[2019-10-30] MEDS: PREDNISONE 20 MG TABLET PO SCH (09:07)
[2019-10-30] MEDS: METOPROLOL SUCCINATE 50 MG TAB.SR.24H PO SCH ×2 (09:07→23:31)
[2019-10-30] MEDS: BUSPIRONE HCL 10 MG TABLET PO SCH ×2 (09:07→23:31)
[2019-10-30] MEDS: SACUBITRIL/VALSARTAN 49 MG/51 MG TABLET PO SCH ×2 (09:08→23:31)
--- NOTE | 2019-10-30 18:32 | Progress Note ---
Provider Note Provider Note: CARDIOLOGY PROGRESS NOTE by Dr. Igor Aaron on 10/30/2019 SUBJECTIVE: Patient states her breathing is better but still has some shortness of breath. She has cough which is productive of yellowish sputum and also is blood-tinged. There is no chest pain discomfort. The patient does have orthopnea but no PND. There is no anginal symptoms. There is no firing of her AICD. Note on discussions the patient does not have a trilogy/noninvasive ventilator at home. Hence we will consult Dr. Allen to see if the patient will qualify for this. As per discussion with the hospitalist the patient is being started on Aldactone. We will watch the patient's renal function especially potassium. PHYSICAL EXAMINATION: The patient is morbidly obese. She is well-groomed Selected Entries 10/30/19 17:33 Temperature 98.3 F Temperature Oral Source Pulse Rate 61 Respiratory 14 Rate Blood Pressure 134/75 H Blood Pressure 94 Mean BP Location Right Arm BP Position Sitting O2 Sat by Pulse 100 Oximetry Oxygen Flow 6.00 Rate Oxygen Delivery Nasal Cannula Method HEAD: Is atraumatic normocephalic. EYES: Pupils are equal round regular reactive to light. HEENT is negative. SKIN: There is no skin rashes or skin lesions. There is no particular ecchymosis. NECK: Is supple. There is mild JVD present. Carotids are equal there is no bruits. There is no lymphadenopathy. There is no goiter. There is no accessory muscle respiration use. Trachea central. LUNGS: . There is diminished air entry. On percussion there is hyperresonance. On palpation there is no chest wall tenderness, dry crackles at both bases, and also some fine rales of CHF. HEART: S1-S2 is heard. There is no S3 gallop. There is no S4 gallop. There is systolic murmur mitral regurgitation tricuspid regurgitation present. There is no aortic stenosis murmur. There is no aortic insufficiency murmur. There is no rub. ABDOMEN: Is obese. Nontender. There is no hepatosplenomegaly. Bowel sounds are well heard. There is no rebound guarding or rigidity. EXTREMITIES: Femorals are deep. Femorals are diminished. There is no femoral bruits. There is decreased leg pulses. There is mild pedal edema. WHEEL SETTER: the patient is conscious awake alert oriented x3 with no focal deficits. PSYCHIATRIC: The patient judgment insight are intact. She does not appear to be agitated or anxious. MUSCULOSKELETAL: There is swelling and tenderness of the right knee with increased warmth. Chest CT 10/28/19 00:00 IMPRESSION: Dense diffuse bilateral airspace disease edema versus pneumonia versus ARDS Trace fluid in the fissures Massive cardiomegaly Chest X-Ray 10/28/19 11:13 IMPRESSION: Patchy opacification in the mid and lower lung zones with prominent and indistinct pulmonary vasculature and cardiomegaly. Constellation of findings likely represents pulmonary edema in the setting of congestive heart failure. A superimposed infectious process would be difficult to exclude. Recommend radiographic follow-up. Labs- All tests 24 hr 10/30/19 10/30/19 05:41 05:41 WBC 5.7 RBC 3.39 L Hgb 10.5 L Hct 31.2 L MCV 92 MCH 30.9 MCHC 33.5 RDW 17.6 H Plt Count 224 Sodium 141.7 Potassium 4.5 Chloride 104 Carbon Dioxide 30 Anion Gap 8 BUN 33 H Creatinine 2.18 H Est GFR ( Amer) 29 L Est GFR (MDRD) Non-Af 24 L Glucose 112 H Calcium 8.7 Total Bilirubin 1.5 H Direct Bilirubin 1.0 H Neonat Total Bilirubin Not Reportable Neonat Direct Bilirubin Not Reportable Neonat Indirect Bili Not Reportable AST 923 H ALT 758 H Alkaline Phosphatase 121 Total Protein 6.7 Albumin 3.7 IMPRESSION/RECOMMENDATION: 1. Acute on chronic respiratory failure. This is secondary to pneumonia, obstructive sleep apnea, and acute on chronic systolic heart failure: And bilateral patchy pneumonia. Continue BiPAP. Seems that the patient has a noninvasive ventilator [trilogy] at home but states that she does not know how to use it. 2. Acute on chronic systolic heart failure. Patient with LV ejection fraction of 25%. beta-blockers and Entresto. Continue diuretics. Continue Entresto 3. Bilateral patchy pneumonia continue antibiotics; 4. Dilated cardiomyopathy with severely reduced LV ejection fraction. 5. History of MRSA pneumonia: The patient had a course of antibiotics. At present chest x-ray compatible with bibasilar pneumonia. This raises the possibility of recurrent pneumonias. Would recommend getting his swallow study to make sure that the patient is not aspirating. This is especially when the patient has respiratory failure causing hypercapnia and somnolence since. 6. History of amiodarone toxicity. Would recommend avoiding amiodarone 7. Chronic kidney disease: Watch renal function when diuresing the patient. 8. History of atrial fibrillation/flutter. At present most likely in sinus mechanism with paced ventricular rhythm recommend continue Eliquis. She has no history of TIA CVA 9. COPD. At present no evidence of acute exacerbation of COPD. 10. History of ventricular tachycardia, The patient has an AICD placed. If t here is recurrence of ventricular tachycardia or major ventricular ectopic activity then would start the patient on small dose of sotalol. Would avoid amiodarone. 11. Hypertension: Blood pressure was high on admission at present blood pressure well controlled, on current medications. 12. Coronary artery disease: History of NV and history of coronary bypass graft surgery. No evidence of acute coronary syndrome/non-ST ST elevation NV this admission. 13. Obstructive sleep apnea. Note patient has been noncompliant with CPAP. Most likely has significant pulmonary hypertension. 14. AICD placement: Note the patient's basal rate is around 60 bpm. If the patient's heart failure continues then would recommend increasing the basal heart rate to 80 bpm to help combat the heart failure Medication reviewed medical regimen and management plan discussed and discussed with attending provider. Medical decision making is of high complexity. 40 minutes spent as patient more than 50% time spent in direct patient care. Will follow
--- NOTE | 2019-10-30 19:10 | PDOC PROGRESS REPORT ---
Subjective Progress Note for:: 10/30/19 Subjective:: FRANKI DEL ROSARIO, 48-year-old female past medical history of coronary artery disease CABG in 2006, CHF with LVEF of 20 to 25%, atrial fibrillation, ICD and pacemaker placement COPD CKD stage III GERD depression morbid obesity, admitted on October 27 due to shortness of breath. Has x-ray showed pulmonary edema with possible superimposed infection. Pressure noted to be high in the ED and she was initially started on nitroglycerin drip. BNP 28,000 which is around her baseline, creatinine 2.05 baseline of around 1.5. Cardiology was consulted she was started on Lasix 20 mg IV daily home medications Entresto and metoprolol were continued. She was put on BIPAP for oxygen support. D3 hospital stay 10/30/19: She was seen and examined at bed side. Complains of pain all over, her home pain medications has been resumed. On bipap. Denies any chest pain, SOB, palpitations. Reason For Visit: RESPIRATORY FAILURE WITH HYPOXIA AND HYPERCAPNIA Physical Exam Vital Signs: Temp Pulse Resp BP Pulse Ox 98.3 F 61 14 134/75 H 100 10/30/19 17:33 10/30/19 17:33 10/30/19 17:33 10/30/19 17:33 10/30/19 17:33 Intake & Output 10/29/19 10/30/19 10/31/19 06:59 06:59 06:59 Intake Total 266 1244 Output Total 800 1900 Balance -534 -656 Weight 108.5 kg 110 kg General appearance: PRESENT: cooperative, mild distress, obese Head exam: PRESENT: atraumatic, normocephalic Eye exam: PRESENT: EOMI, PERRLA Mouth exam: PRESENT: moist Neck exam: PRESENT: full ROM. ABSENT: JVD Respiratory exam: PRESENT: crackles, rales, symmetrical. ABSENT: retraction, unlabored, wheezes Cardiovascular exam: PRESENT: RRR, +S1, +S2. ABSENT: tachycardia Pulses: PRESENT: +2 pedal pulses bilateral. ABSENT: normal radial pulses Vascular exam: PRESENT: normal capillary refill GI/Abdominal exam: PRESENT: soft. ABSENT: distended, guarding, tenderness Extremities exam: PRESENT: +1 edema Musculoskeletal exam: PRESENT: full ROM Neurological exam: PRESENT: alert, awake, oriented to person, oriented to place, oriented to time Psychiatric exam: PRESENT: normal mood Skin exam: PRESENT: other - venous Stasis dermatitis Results Laboratory Results: 10/30/19 05:41 10/30/19 05:41 10/30/19 10/30/19 05:41 05:41 WBC 5.7 RBC 3.39 L Hgb 10.5 L Hct 31.2 L MCV 92 MCH 30.9 MCHC 33.5 RDW 17.6 H Plt Count 224 Sodium 141.7 Potassium 4.5 Chloride 104 Carbon Dioxide 30 Anion Gap 8 BUN 33 H Creatinine 2.18 H Est GFR ( Amer) 29 L Glucose 112 H Calcium 8.7 Total Bilirubin 1.5 H AST 923 H Alkaline Phosphatase 121 Total Protein 6.7 Albumin 3.7 10/28/19 14:02 Sputum Gram Stain - Final 10/28/19 14:02 Sputum Sputum Culture - Final NORMAL JARED 10/28/19 13:35 Catheterized Urine Urine Culture - Final Escherichia Coli 10/28/19 13:01 Troponin I 0.090 NT-Pro-B Natriuret Pep 44990 H Impressions: Chest CT 10/28/19 00:00 IMPRESSION: Dense diffuse bilateral airspace disease edema versus pneumonia versus ARDS Trace fluid in the fissures Massive cardiomegaly Chest X-Ray 10/28/19 11:13 IMPRESSION: Patchy opacification in the mid and lower lung zones with prominent and indistinct pulmonary vasculature and cardiomegaly. Constellation of findings likely represents pulmonary edema in the setting of congestive heart failure. A superimposed infectious process would be difficult to exclude. Recommend radiographic follow-up. Assessment and Plan - Diagnosis (1) Acute on chronic systolic (congestive) heart failure Is this a current diagnosis for this admission?: Yes Plan: - admitted due to SOB - CXR +ve pulmonary edema - BNP 28,000. Last admission [id number] which is around her baseline - no recent echo. Will hold repeating for now - lasix held today due to uptrending of crea. will resume tomorrow - continue Sacubitril-Valsartan, metoprolol - aldactone tomorrow pending CMP - has ICD/pacemaker already - Dr. Ragsdale following - daily weights - strict IO (2) COPD (chronic obstructive pulmonary disease) Qualifiers: COPD type: COPD with acute exacerbation Qualified Code(s): J44.1 - Chronic obstructive pulmonary disease with (acute) exacerbation Is this a current diagnosis for this admission?: Yes Plan: - improved SOB. - Hx MRSA in sputum. - blood culture negative x 1 -Sputum culture growing gram-positive cocci in clusters - on scheduled and as needed nebulizer treatments. - Prednisone 60 mg p.o. daily. - continue Mucinex twice daily. - continue t p.o. Bactrim DS twice daily. - continue o2 support - Pulmonary toilet is encouraged with incentive spirometer, flutter valve, and early ambulation. (3) Acute respiratory failure with hypoxia and hypercapnia Is this a current diagnosis for this admission?: Yes Plan: Improved. Chest x-ray shows patchy infiltrates; pulmonary edema with possible underlying infectious process. Recommends follow-up imaging. - CT chest dense diffuse bilateral airspace disease edema versus pneumonia versus ARDS, cardiomegaly, is fluid in the fissures - COVID-19 negative - continue o2 support BIPAP PRN (4) Acute renal failure superimposed on chronic kidney disease Qualifiers: Acute renal failure type: unspecified Chronic kidney disease stage: stage 3 (moderate) Qualified Code(s): N17.9 - Acute kidney failure, unspecified; N18.3 - Chronic kidney disease, stage 3 (moderate) Is this a current diagnosis for this admission?: Yes Plan: -Creatinine 2.05-> 1.91>2.18; up from baseline of 1.50. - will hold lasix for today due to uptrend of crea. resume tomorrow - strict IO -Avoid nephrotoxic medications. -Follow-up chemistries. (5) Atrial fibrillation Qualifiers: Atrial fibrillation type: unspecified Qualified Code(s): I48.91 - Unspecified atrial fibrillation Is this a current diagnosis for this admission?: Yes Plan: - patient has a pacemaker and ICD - Rate controlled on metoprolol - eliquis for AC (6) CAD (coronary artery disease) Qualifiers: Coronary Disease-Associated Artery/Lesion type: bypass graft [place] vs. transplanted heart: [place] heart Associated angina: with unspecified angina Qualified Code(s): I25.709 - Atherosclerosis of coronary artery bypass graft(s), unspecified, with unspecified angina pectoris Is this a current diagnosis for this admission?: Yes Plan: - no chest pain - trop 0.090 - continue aspirin, metoprolol, entresto, statin (7) Hypertension Qualifiers: Hypertension type: essential hypertension Qualified Code(s): I10 - Essential (primary) hypertension Is this a current diagnosis for this admission?: Yes Plan: - continue metoprolol, entresto (8) RUBIN (obstructive sleep apnea) Is this a current diagnosis for this admission?: Yes Plan: BiPAP nightly and PRN (9) Morbid obesity Is this a current diagnosis for this admission?: Yes Plan: - lifestyle modification advised - cardiac diet - Time Time Spent with patient: 25-34 minutes Medications reviewed and adjusted accordingly: Yes Anticipated Discharge Disposition: to be determined Anticipated Discharge Timeframe: to be determined
[2019-10-30] MEDS: ATORVASTATIN CALCIUM 80 MG TABLET PO SCH (23:32)
[2019-10-31] MEDS: IPRATROPIUM/ALBUTEROL 0.5-2.5 MG/3 ML AMPUL NEB SCH ×3 (00:11→16:12)
[2019-10-31 06:10] LABS: ABSOLUTE LYMPHOCYTES (AUTO) 1.1 10^3/uL (0.5-4.7); ABSOLUTE MONOCYTES (AUTO) 0.4 10^3/uL (0.1-1.4); ABSOLUTE NEUT (AUTO) 5.6 10^3/uL (1.7-8.2); BASOPHILS % (AUTO) 0.1 % (0-2); HEMATOCRIT 33.4 % (36.0-47.0); HEMOGLOBIN 10.9 g/dL (12.0-15.5); LYMPHOCYTES % (AUTO) 15.2 % (13-45); MEAN CORPUSCULAR HEMOGLOBIN 30.4 pg (27.0-33.4); MEAN CORPUSCULAR HGB CONC 32.6 g/dL (32.0-36.0); MEAN CORPUSCULAR VOLUME 93 fl (80-97); MONOCYTES % (AUTO) 6.2 % (3-13); PLATELET COUNT 251 10^3/uL (150-450); RED BLOOD COUNT 3.58 10^6/uL (3.72-5.28); RED CELL DISTRIBUTION WIDTH 17.8 % (11.5-14.0); SEGMENTED NEUTROPHILS % (AUTO) 78.5 % (42-78); TOTAL CELLS COUNTED % (AUTO) 100 %; WHITE BLOOD COUNT 7.1 10^3/uL (4.0-10.5)
[2019-10-31 06:38] LABS: ALKALINE PHOSPHATASE 120 U/L (38-126); ANION GAP 7 (5-19); ASPARTATE AMINO TRANSFERASE 569 U/L (14-36); BILIRUBIN,DIRECT 0.7 mg/dL (0.0-0.4); BILIRUBIN,TOTAL 0.9 mg/dL (0.2-1.3); BLOOD UREA NITROGEN 29 mg/dL (7-20); CALCIUM 9.2 mg/dL (8.4-10.2); CARBON DIOXIDE 32 mmol/L (22-30); CHLORIDE 104 mmol/L (98-107); GLUCOSE 104 mg/dL (75-110); POTASSIUM 4.7 mmol/L (3.6-5.0); TOTAL PROTEIN 6.9 g/dL (6.3-8.2)
[2019-10-31] MEDS: ISOSORBIDE MONONITRATE 30 MG TAB.ER.24H PO SCH (08:34)
[2019-10-31] MEDS: FUROSEMIDE 40 MG TABLET PO SCH (08:34)
[2019-10-31] MEDS: OXYCODONE-ACETAMINOPHEN 5-325 MG TABLET PO PRN ×3 (08:37→19:48)
[2019-10-31] MEDS: SPIRONOLACTONE 25 MG TABLET PO SCH (10:27)
[2019-10-31] MEDS: BUSPIRONE HCL 10 MG TABLET PO SCH ×2 (10:28→22:48)
[2019-10-31] MEDS: DOCUSATE SODIUM 100 MG CAPSULE PO SCH (10:28)
[2019-10-31] MEDS: ASPIRIN 81 MG TABLET, ENT COATED PO SCH (10:28)
[2019-10-31] MEDS: SACUBITRIL/VALSARTAN 49 MG/51 MG TABLET PO SCH ×2 (10:28→22:48)
[2019-10-31] MEDS: PREDNISONE 20 MG TABLET PO SCH (10:28)
[2019-10-31] MEDS: SULFAMETHOXAZOLE/TRIMETHOPRIM 800-160 MG TABLET PO SCH ×2 (10:28→22:48)
[2019-10-31] MEDS: GUAIFENESIN 600 MG TABLET.SA PO SCH ×2 (10:28→22:47)
[2019-10-31] MEDS: APIXABAN 2.5 MG TABLET PO SCH ×2 (10:28→22:47)
[2019-10-31] MEDS: FAMOTIDINE 20 MG TABLET PO SCH ×2 (10:28→22:47)
[2019-10-31] MEDS: PAROXETINE HCL 20 MG TABLET PO SCH (10:28)
[2019-10-31] MEDS: OXYCODONE HCL IR 5 MG TABLET PO PRN ×2 (10:29→19:52)
[2019-10-31] MEDS: METOPROLOL SUCCINATE 50 MG TAB.SR.24H PO SCH ×2 (10:29→22:48)
[2019-10-31] MEDS: ALPRAZOLAM 0.5 MG TABLET PO PRN ×2 (10:38→20:00)
[2019-10-31] MEDS ORDERED: MORPHINE SULFATE 10 MG/ML INJ IV ONE (12:00)
--- NOTE | 2019-10-31 18:29 | PDOC PROGRESS REPORT ---
Subjective Progress Note for:: 10/31/19 Subjective:: FRANKI DEL ROSARIO, 48-year-old female past medical history of coronary artery disease CABG in 2006, CHF with LVEF of 20 to 25%, atrial fibrillation, ICD and pacemaker placement COPD CKD stage III GERD depression morbid obesity, admitted on October 27 due to shortness of breath. Has x-ray showed pulmonary edema with possible superimposed infection. Pressure noted to be high in the ED and she was initially started on nitroglycerin drip. BNP 28,000 which is around her baseline, creatinine 2.05 baseline of around 1.5. Cardiology was consulted she was started on Lasix 20 mg IV daily home medications Entresto and metoprolol were continued. She was put on BIPAP for oxygen support. D3 hospital stay 10/30/19: She was seen and examined at bed side. Complains of pain all over, her home pain medications has been resumed. On bipap. Denies any chest pain, SOB, palpitations. D4 hospital stay 10/31/19: She was seen and examined at bedside. Reports improvement in terms of breathing. Afebrile, good appetite. Again requesting morphine dose. She is currently on her home pain medications. According to the nurse, she still desaturates when taken off the BIPAP. Oral lasix dose resumed, aldactone 12.5 mg daily was added for HF. Reason For Visit: RESPIRATORY FAILURE WITH HYPOXIA AND HYPERCAPNIA Physical Exam Vital Signs: Temp Pulse Resp BP Pulse Ox 97.5 F 60 15 110/76 100 10/31/19 16:08 10/31/19 16:08 10/31/19 16:08 10/31/19 16:48 10/31/19 16:08 Intake & Output 10/30/19 10/31/19 11/01/19 06:59 06:59 06:59 Intake Total 1244 1304 Output Total 1900 1600 Balance -656 -296 Weight 110 kg 108.3 kg General appearance: PRESENT: cooperative, mild distress, obese Head exam: PRESENT: atraumatic, normocephalic Eye exam: PRESENT: EOMI, PERRLA Mouth exam: PRESENT: moist Neck exam: PRESENT: full ROM Respiratory exam: PRESENT: crackles, symmetrical. ABSENT: tachypnea, wheezes Cardiovascular exam: PRESENT: RRR, +S1, +S2. ABSENT: diastolic murmur, systolic murmur Pulses: PRESENT: +2 pedal pulses bilateral GI/Abdominal exam: PRESENT: normal bowel sounds, soft. ABSENT: rebound, tenderness Rectal exam: PRESENT: deferred Extremities exam: PRESENT: full ROM, +1 edema Musculoskeletal exam: PRESENT: full ROM Neurological exam: PRESENT: alert, awake, oriented to person, oriented to place, oriented to time Psychiatric exam: PRESENT: normal mood Results Laboratory Results: 10/31/19 05:18 10/31/19 05:18 10/31/19 10/31/19 05:18 05:18 WBC 7.1 RBC 3.58 L Hgb 10.9 L Hct 33.4 L MCV 93 MCH 30.4 MCHC 32.6 RDW 17.8 H Plt Count 251 Seg Neutrophils % 78.5 H Sodium 143.3 Potassium 4.7 Chloride 104 Carbon Dioxide 32 H Anion Gap 7 BUN 29 H Creatinine 1.65 H Est GFR ( Amer) 40 L Glucose 104 Calcium 9.2 Total Bilirubin 0.9 AST 569 H Alkaline Phosphatase 120 Total Protein 6.9 Albumin 4.0 10/28/19 13:01 Troponin I 0.090 NT-Pro-B Natriuret Pep 31819 H Impressions: Chest CT 10/28/19 00:00 IMPRESSION: Dense diffuse bilateral airspace disease edema versus pneumonia versus ARDS Trace fluid in the fissures Massive cardiomegaly Chest X-Ray 10/28/19 11:13 IMPRESSION: Patchy opacification in the mid and lower lung zones with prominent and indistinct pulmonary vasculature and cardiomegaly. Constellation of findings likely represents pulmonary edema in the setting of congestive heart failure. A superimposed infectious process would be difficult to exclude. Recommend radiographic follow-up. Assessment and Plan - Diagnosis (1) Acute on chronic systolic (congestive) heart failure Is this a current diagnosis for this admission?: Yes Plan: - admitted due to SOB - CXR +ve pulmonary edema - BNP 28,000. Last admission [id number] which is around her baseline - no recent echo. Will hold repeating for now - aldactone 12.5 mg daily started. Will monitor potassium and kidney function - oral lasix dose 60 mg PO daily resumed - continue Sacubitril-Valsartan, metoprolol - has ICD/pacemaker already - Dr. Ragsdale following - daily weights 110 kg to 108 - strict IO (2) COPD (chronic obstructive pulmonary disease) Qualifiers: COPD type: COPD with acute exacerbation Qualified Code(s): J44.1 - Chronic obstructive pulmonary disease with (acute) exacerbation Is this a current diagnosis for this admission?: Yes Plan: - improved SOB. - Hx MRSA in sputum. - blood culture negative x 1 - Sputum culture growing gram-positive cocci in clusters - on scheduled and as needed nebulizer treatments. - Prednisone 60 mg p.o. daily d3 of 5 - continue Mucinex twice daily. - continue Bactrim DS twice daily - repeat CXR tomorrow. patient is still requiring O2 support via bipap. Would consider Pulm consult tomorrow. Patient is not on any LAMA?LABA inhaler for COPD - continue o2 support - Pulmonary toilet is encouraged with incentive spirometer, flutter valve, and early ambulation. (3) Acute respiratory failure with hypoxia and hypercapnia Is this a current diagnosis for this admission?: Yes Plan: Improved. Chest x-ray shows patchy infiltrates; pulmonary edema with possible underlying infectious process. Recommends follow-up imaging. - CT chest dense diffuse bilateral airspace disease edema versus pneumonia versus ARDS, cardiomegaly, is fluid in the fissures - COVID-19 negative - continue o2 support BIPAP PRN - continue diuresis with home dose of lasix. - aldactone 12.5 mg daily added for HF (4) Acute renal failure superimposed on chronic kidney disease Qualifiers: Acute renal failure type: unspecified Chronic kidney disease stage: stage 3 (moderate) Qualified Code(s): N17.9 - Acute kidney failure, unspecified; N18.3 - Chronic kidney disease, stage 3 (moderate) Is this a current diagnosis for this admission?: Yes Plan: -Creatinine 2.05-> 1.91>2.18>1.65; up from baseline of 1.50. - lasix 60 mg PO daily resumed - aldactone 12.5 mg OD added. Will monitor potassium and renal function - strict IO -Avoid nephrotoxic medications. -daily BMP (5) Atrial fibrillation Qualifiers: Atrial fibrillation type: unspecified Qualified Code(s): I48.91 - Unspecified atrial fibrillation Is this a current diagnosis for this admission?: Yes Plan: - patient has a pacemaker and ICD - Rate controlled on metoprolol - eliquis for AC (6) CAD (coronary artery disease) Qualifiers: Coronary Disease-Associated Artery/Lesion type: bypass graft [place] vs. transplanted heart: [place] heart Associated angina: with unspecified angina Qualified Code(s): I25.709 - Atherosclerosis of coronary artery bypass graft(s), unspecified, with unspecified angina pectoris Is this a current diagnosis for this admission?: Yes Plan: - no chest pain - trop 0.090 - continue aspirin, metoprolol, entresto, statin (7) Hypertension Qualifiers: Hypertension type: essential hypertension Qualified Code(s): I10 - Essential (primary) hypertension Is this a current diagnosis for this admission?: Yes Plan: - continue metoprolol, entresto (8) RUBIN (obstructive sleep apnea) Is this a current diagnosis for this admission?: Yes Plan: BiPAP nightly and PRN (9) Morbid obesity Is this a current diagnosis for this admission?: Yes Plan: - lifestyle modification advised - cardiac diet - Time Time Spent with patient: 25-34 minutes Medications reviewed and adjusted accordingly: Yes Anticipated Discharge Disposition: to be determined Anticipated Discharge Timeframe: to be determined
--- NOTE | 2019-10-31 22:08 | Progress Note ---
Provider Note Provider Note: CARDIOLOGY PROGRESS NOTE by Dr. Igor Aaron on 10/31/2019. OBJECTIVE: The patient states she feels better and has less shortness of breath. She does have orthopnea but no PND. There is no chest pain consistent with angina. She has left back of the chest pain but it is not pleuritic. She has cough productive of yellowish sputum. This is much less than before. Her leg edema is only trace. There is no firing of her AICD. On questioning her medical supply company she has no trilogy at home. Hence we will consult Dr. Allen. She is off the BiPAP but is on nasal cannula with 8 L of oxygen per minute. PHYSICAL EXAMINATION: The patient is morbidly obese. At present in no acute distress. Selected Entries 10/31/19 11:42 Temperature 97.4 F Temperature Oral Source Pulse Rate 59 L Respiratory 16 Rate Blood Pressure 113/70 Blood Pressure 84 Mean BP Location Right Arm BP Position Supine O2 Sat by Pulse 95 Oximetry Fraction of 35 Inspired Oxygen (FIO2) Oxygen Flow 8.00 Rate Oxygen Delivery Nasal Cannula Method HEAD: Is atraumatic normocephalic. EYES: Pupils are equal round regular reactive to light. HEENT is negative. SKIN: There is no skin rashes or skin lesions. There is no particular ecchymosis. NECK: Is supple. There is mild JVD present. Carotids are equal there is no bruits. There is no lymphadenopathy. There is no goiter. There is no accessory muscle respiration use. Trachea central. LUNGS: . There is diminished air entry. On percussion there is hyperresonance. On palpation there is no chest wall tenderness, dry crackles at both bases, and also some fine rales of CHF. HEART: S1-S2 is heard. There is no S3 gallop. There is no S4 gallop. There is systolic murmur mitral regurgitation tricuspid regurgitation present. There is no aortic stenosis murmur. There is no aortic insufficiency murmur. There is no rub. ABDOMEN: Is obese. Nontender. There is no hepatosplenomegaly. Bowel sounds are well heard. There is no rebound guarding or rigidity. EXTREMITIES: Femorals are deep. Femorals are diminished. There is no femoral bruits. There is decreased leg pulses. There is mild pedal edema. GLOBAL PROFESSIONAL: the patient is conscious awake alert oriented x3 with no focal deficits. PSYCHIATRIC: The patient judgment insight are intact. She does not appear to be agitated or anxious. MUSCULOSKELETAL: There is swelling and tenderness of the right knee with increased warmth. Labs- All tests 24 hr 10/31/19 10/31/19 05:18 05:18 WBC 7.1 RBC 3.58 L Hgb 10.9 L Hct 33.4 L MCV 93 MCH 30.4 MCHC 32.6 RDW 17.8 H Plt Count 251 Lymph % (Auto) 15.2 [place] % (Auto) 6.2 Eos % (Auto) 0.0 Baso % (Auto) 0.1 Absolute Neuts (auto) 5.6 Absolute Lymphs (auto) 1.1 Absolute Monos (auto) 0.4 Absolute Eos (auto) 0.0 Absolute Basos (auto) 0.0 Seg Neutrophils % 78.5 H Sodium 143.3 Potassium 4.7 Chloride 104 Carbon Dioxide 32 H Anion Gap 7 BUN 29 H Creatinine 1.65 H Est GFR ( Amer) 40 L Est GFR (MDRD) Non-Af 33 L Glucose 104 Calcium 9.2 Total Bilirubin 0.9 Direct Bilirubin 0.7 H Neonat Total Bilirubin Not Reportable Neonat Direct Bilirubin Not Reportable Neonat Indirect Bili Not Reportable AST 569 H ALT 736 H Alkaline Phosphatase 120 Total Protein 6.[address] 10/28/19 00:00 IMPRESSION: Dense diffuse bilateral airspace disease edema versus pneumonia versus ARDS Trace fluid in the fissures Massive cardiomegaly Chest X-Ray 10/28/19 11:13 IMPRESSION: Patchy opacification in the mid and lower lung zones with prominent and indistinct pulmonary vasculature and cardiomegaly. Constellation of findings likely represents pulmonary edema in the setting of congestive heart failure. A superimposed infectious process would be difficult to exclude. Recommend radiographic follow-up. IMPRESSION/RECOMMENDATION: 1. Acute on chronic respiratory failure. This is secondary to pneumonia, obstructive sleep apnea, and acute on chronic systolic heart failure: And bilateral patchy pneumonia. Continue BiPAP. Seems that the patient has a noninvasive ventilator [trilogy] at home but states that she does not know how to use it. We will consult Dr. Allen. 2. Acute on chronic systolic heart failure. Patient with LV ejection fraction of 25%. beta-blockers and Entresto. Continue diuretics. Continue Entresto 3. Bilateral patchy pneumonia continue antibiotics; 4. Dilated cardiomyopathy with severely reduced LV ejection fraction. 5. History of MRSA pneumonia: 6. History of amiodarone toxicity. Would recommend avoiding amiodarone 7. Chronic kidney disease: Watch renal function when diuresing the patient. 8. History of atrial fibrillation/flutter. At present most likely in sinus mechanism with paced ventricular rhythm recommend continue Eliquis. She has no history of TIA CVA 9. COPD. At present no evidence of acute exacerbation of COPD. 10. History of ventricular tachycardia, The patient has an AICD placed. If there is recurrence of ventricular tachycardia or major ventricular ectopic activity then would start the patient on small dose of sotalol. Would avoid amiodarone. 11. Hypertension: Blood pressure was high on admission at present blood pressure well controlled, on current medications. 12. Coronary artery disease: History of [place] and history of coronary bypass graft surgery. No evidence of acute coronary syndrome/non-ST ST elevation [place] this admission. 13. Obstructive sleep apnea. Note patient has been noncompliant with CPAP. Most likely has significant pulmonary hypertension. 14. AICD placement: Note the patient's basal rate is around 60 bpm. If the patient's heart failure continues then would recommend increasing the basal heart rate to 80 bpm to help combat the heart failure Medication reviewed medical regimen and management plan discussed and discussed with attending provider. Medical decision making is of moderate complexity. 40 minutes spent as patient more than 50% time spent in direct patient care. Will follow
[2019-10-31] MEDS: ATORVASTATIN CALCIUM 80 MG TABLET PO SCH (22:47)
[2019-11-01] MEDS: IPRATROPIUM/ALBUTEROL 0.5-2.5 MG/3 ML AMPUL NEB SCH ×3 (00:31→16:10)
[2019-11-01 06:28] LABS: ABSOLUTE LYMPHOCYTES (AUTO) 1.5 10^3/uL (0.5-4.7); ABSOLUTE MONOCYTES (AUTO) 0.4 10^3/uL (0.1-1.4); ABSOLUTE NEUT (AUTO) 5.2 10^3/uL (1.7-8.2); BASOPHILS % (AUTO) 0.2 % (0-2); HEMOGLOBIN 10.9 g/dL (12.0-15.5); LYMPHOCYTES % (AUTO) 20.7 % (13-45); MEAN CORPUSCULAR HEMOGLOBIN 30.5 pg (27.0-33.4); MEAN CORPUSCULAR HGB CONC 32.8 g/dL (32.0-36.0); MEAN CORPUSCULAR VOLUME 93 fl (80-97); MONOCYTES % (AUTO) 5.5 % (3-13); PLATELET COUNT 266 10^3/uL (150-450); RED BLOOD COUNT 3.56 10^6/uL (3.72-5.28); RED CELL DISTRIBUTION WIDTH 17.9 % (11.5-14.0); SEGMENTED NEUTROPHILS % (AUTO) 73.6 % (42-78); TOTAL CELLS COUNTED % (AUTO) 100 %
[2019-11-01 06:46] LABS: ALBUMIN 3.9 g/dL (3.5-5.0); ALKALINE PHOSPHATASE 110 U/L (38-126); ASPARTATE AMINO TRANSFERASE 201 U/L (14-36); BILIRUBIN,DIRECT 0.5 mg/dL (0.0-0.4); BILIRUBIN,TOTAL 0.6 mg/dL (0.2-1.3); BLOOD UREA NITROGEN 28 mg/dL (7-20); CALCIUM 9.4 mg/dL (8.4-10.2); GLUCOSE 103 mg/dL (75-110); POTASSIUM 4.9 mmol/L (3.6-5.0); TOTAL PROTEIN 6.9 g/dL (6.3-8.2)
[2019-11-01 06:56] LABS: ANION GAP 5 (5-19); CARBON DIOXIDE 31 mmol/L (22-30); CHLORIDE 106 mmol/L (98-107)
[2019-11-01] MEDS: FUROSEMIDE 40 MG TABLET PO SCH (08:31)
[2019-11-01] MEDS: OXYCODONE-ACETAMINOPHEN 5-325 MG TABLET PO PRN ×4 (08:34→23:57)
[2019-11-01] MEDS: OXYCODONE HCL IR 5 MG TABLET PO PRN ×3 (08:34→20:06)
[2019-11-01] MEDS: ISOSORBIDE MONONITRATE 30 MG TAB.ER.24H PO SCH (08:38)
[2019-11-01] MEDS: GUAIFENESIN 600 MG TABLET.SA PO SCH ×2 (09:43→22:32)
[2019-11-01] MEDS: METOPROLOL SUCCINATE 50 MG TAB.SR.24H PO SCH ×2 (09:43→22:31)
[2019-11-01] MEDS: PAROXETINE HCL 20 MG TABLET PO SCH (09:44)
[2019-11-01] MEDS: BUSPIRONE HCL 10 MG TABLET PO SCH ×2 (09:44→22:31)
[2019-11-01] MEDS: APIXABAN 2.5 MG TABLET PO SCH ×2 (09:44→22:32)
[2019-11-01] MEDS: SULFAMETHOXAZOLE/TRIMETHOPRIM 800-160 MG TABLET PO SCH ×2 (09:44→22:31)
[2019-11-01] MEDS: PREDNISONE 20 MG TABLET PO SCH (09:44)
[2019-11-01] MEDS: FAMOTIDINE 20 MG TABLET PO SCH ×2 (09:44→22:31)
[2019-11-01] MEDS: DOCUSATE SODIUM 100 MG CAPSULE PO SCH (09:45)
[2019-11-01] MEDS: SACUBITRIL/VALSARTAN 49 MG/51 MG TABLET PO SCH ×2 (09:45→22:31)
[2019-11-01] MEDS: ASPIRIN 81 MG TABLET, ENT COATED PO SCH (09:45)
--- NOTE | 2019-11-01 09:58 | RADIOLOGY REPORT (SQ) ---
EXAM DESCRIPTION: CHEST SINGLE VIEW IMAGES COMPLETED DATE/TIME: 11/01/2019 9:13 am REASON FOR STUDY: SOB COMPARISON: 10/28/2019 NUMBER OF VIEWS: One view. TECHNIQUE: Single frontal radiographic image of the chest acquired. LIMITATIONS: None. FINDINGS: LUNGS AND PLEURA: Improved aeration with residual airspace disease in the lower lobes. MEDIASTINUM AND HEART: Stable heart size and mediastinal structures. SUPPORT DEVICES: Stable position of defibrillator. BONY STRUCTURES: No acute findings. HARDWARE: CABG. OTHER: No other significant finding. IMPRESSION: Improving CHF. Reading location - IP/workstation name: [facility]
--- NOTE | 2019-11-01 12:59 | PDOC PROGRESS REPORT ---
Subjective Progress Note for:: 11/01/19 Subjective:: FRANKI DEL ROSARIO, 48-year-old female past medical history of coronary artery disease CABG in 2006, CHF with LVEF of 20 to 25%, atrial fibrillation, ICD and pacemaker placement COPD CKD stage III GERD depression morbid obesity, admitted on October 27 due to shortness of breath. Has x-ray showed pulmonary edema with possible superimposed infection. Pressure noted to be high in the ED and she was initially started on nitroglycerin drip. BNP 28,000 which is around her baseline, creatinine 2.05 baseline of around 1.5. Cardiology was consulted she was started on Lasix 20 mg IV daily home medications Entresto and metoprolol were continued. She was put on BIPAP for oxygen support. D3 hospital stay 10/30/19: She was seen and examined at bed side. Complains of pain all over, her home pain medications has been resumed. On bipap. Denies any chest pain, SOB, palpitations. D4 hospital stay 10/31/19: She was seen and examined at bedside. Reports improvement in terms of breathing. Afebrile, good appetite. Again requesting morphine dose. She is currently on her home pain medications. According to the nurse, she still desaturates when taken off the BIPAP. Oral lasix dose resumed, aldactone 12.5 mg daily was added for HF. D5 hospital stay 11/01/19: she was seen and examined at bedside. Reports chronic pain all over. Otherwise, she reports that her breathing is much better. She remains on BiPAP most days, at home she uses 4 L of nasal cannula. She was started on Aldactone yesterday 12.5 once a day. Blood pressure noted to be low this morning 85/50. I held the Aldactone and stop the Imdur, hopefully this will help with her blood pressure. According to the patient she has a BiPAP however she does not know how to use it, plan is to have discharge planning reach out to company that issue the machine to that they can come in her house and teach her how to use it. Reason For Visit: RESPIRATORY FAILURE WITH HYPOXIA AND HYPERCAPNIA Physical Exam Vital Signs: Temp Pulse Resp BP Pulse Ox 97.6 F 59 L 16 110/61 100 11/01/19 11:36 11/01/19 11:36 11/01/19 11:36 11/01/19 11:36 11/01/19 11:36 Intake & Output 10/31/19 11/01/19 11/02/19 06:59 06:59 06:59 Intake Total 1304 930 Output Total 1600 Balance -296 930 Weight 108.3 kg 108.6 kg General appearance: PRESENT: cooperative, mild distress Head exam: PRESENT: normocephalic Eye exam: PRESENT: EOMI, PERRLA Mouth exam: PRESENT: moist Neck exam: PRESENT: full ROM. ABSENT: JVD Respiratory exam: PRESENT: clear to auscultation renu, symmetrical, unlabored. ABSENT: tachypnea, wheezes Cardiovascular exam: PRESENT: RRR, +S1, +S2. ABSENT: systolic murmur, tachycardia Pulses: PRESENT: +2 pedal pulses bilateral GI/Abdominal exam: PRESENT: normal bowel sounds, soft. ABSENT: distended, tenderness Gentrourinary exam: PRESENT: lesions Extremities exam: PRESENT: +1 edema Musculoskeletal exam: PRESENT: full ROM Neurological exam: PRESENT: alert, awake, oriented to person, oriented to place, oriented to time Psychiatric exam: PRESENT: normal mood Skin exam: PRESENT: normal color Results Laboratory Results: 11/01/19 05:36 11/01/19 05:36 11/01/19 11/01/19 05:36 05:36 WBC 7.0 RBC 3.56 L Hgb 10.9 L Hct 33.0 L MCV 93 MCH 30.5 MCHC 32.8 RDW 17.9 H Plt Count 266 Seg Neutrophils % 73.6 Sodium 142.0 Potassium 4.9 Chloride 106 Carbon Dioxide 31 H Anion Gap 5 BUN 28 H Creatinine 1.58 H Est GFR ( Amer) 42 L Glucose 103 Calcium 9.4 Total Bilirubin 0.6 AST 201 H Alkaline Phosphatase 110 Total Protein 6.9 Albumin 3.9 10/29/19 13:45 Sputum Gram Stain - Final 10/29/19 13:45 Sputum Sputum Culture - Final Mrsa (Meth Resis Staph Aureus) Normal Evelyn 10/28/19 13:01 Troponin I 0.090 NT-Pro-B Natriuret Pep 41051 H Impressions: Chest CT 10/28/19 00:00 IMPRESSION: Dense diffuse bilateral airspace disease edema versus pneumonia versus ARDS Trace fluid in the fissures Massive cardiomegaly Chest X-Ray 11/01/19 06:00 IMPRESSION: Improving CHF. Assessment and Plan - Diagnosis (1) Acute on chronic systolic (congestive) heart failure Is this a current diagnosis for this admission?: Yes Plan: - admitted due to SOB - CXR +ve pulmonary edema - BNP 28,000. Last admission [id number] which is around her baseline - no recent echo. Will hold repeating for now - aldactone held today due to hypotension - Imdur held today as well - oral lasix dose 60 mg PO daily resumed. Will continue to diurese for today. - continue Sacubitril-Valsartan, metoprolol - has ICD/pacemaker already - wean off bipap - Dr. Ragsdale following - daily weights 110 kg to 108 - strict IO (2) COPD (chronic obstructive pulmonary disease) Qualifiers: COPD type: COPD with acute exacerbation Qualified Code(s): J44.1 - Chronic obstructive pulmonary disease with (acute) exacerbation Is this a current diagnosis for this admission?: Yes Plan: - improved SOB. - Hx MRSA in sputum. - blood culture negative x 1 - Sputum culture growing gram-positive cocci in clusters - on scheduled and as needed nebulizer treatments. - Prednisone 60 mg p.o. daily d4 of 5 - continue Mucinex twice daily. - continue Bactrim DS twice daily - repeat CXRshowed improving aeration - continue o2 support - Pulmonary toilet is encouraged with incentive spirometer, flutter valve, and early ambulation. (3) Acute respiratory failure with hypoxia and hypercapnia Is this a current diagnosis for this admission?: Yes Plan: Improved. Chest x-ray shows patchy infiltrates; pulmonary edema with possible underlying infectious process. Recommends follow-up imaging. - CT chest dense diffuse bilateral airspace disease edema versus pneumonia versus ARDS, cardiomegaly, is fluid in the fissures - COVID-19 negative - continue o2 support BIPAP PRN - continue diuresis with home dose of lasix. (4) Acute renal failure superimposed on chronic kidney disease Qualifiers: Acute renal failure type: unspecified Chronic kidney disease stage: stage 3 (moderate) Qualified Code(s): N17.9 - Acute kidney failure, unspecified; N18.3 - Chronic kidney disease, stage 3 (moderate) Is this a current diagnosis for this admission?: Yes Plan: -Creatinine 2.05-> 1.91>2.18>1.65>1.58; up from baseline of 1.50. - lasix 60 mg PO daily resumed - aldactone held - strict IO -Avoid nephrotoxic medications. -daily BMP (5) Atrial fibrillation Qualifiers: Atrial fibrillation type: unspecified Qualified Code(s): I48.91 - Unspecified atrial fibrillation Is this a current diagnosis for this admission?: Yes Plan: - patient has a pacemaker and ICD - Rate controlled on metoprolol - eliquis for AC (6) CAD (coronary artery disease) Qualifiers: Coronary Disease-Associated Artery/Lesion type: bypass graft [place] vs. transplanted heart: [place] heart Associated angina: with unspecified angina Qualified Code(s): I25.709 - Atherosclerosis of coronary artery bypass graft(s), unspecified, with unspecified angina pectoris Is this a current diagnosis for this admission?: Yes Plan: - no chest pain - trop 0.090 - continue aspirin, metoprolol, entresto, statin (7) Hypertension Qualifiers: Hypertension type: essential hypertension Qualified Code(s): I10 - Essential (primary) hypertension Is this a current diagnosis for this admission?: Yes Plan: - continue metoprolol, entresto (8) RUBIN (obstructive sleep apnea) Is this a current diagnosis for this admission?: Yes Plan: BiPAP nightly and PRN (9) Morbid obesity Is this a current diagnosis for this admission?: Yes Plan: - lifestyle modification advised - cardiac diet - Time Time Spent with patient: 25-34 minutes Anticipated Discharge Disposition: Home with Home Health Anticipated Discharge Timeframe: To be determined
[2019-11-01] MEDS: ALPRAZOLAM 0.5 MG TABLET PO PRN ×2 (13:05→20:46)
--- NOTE | 2019-11-01 16:33 | Progress Note ---
Provider Note Provider Note: CARDIOLOGY PROGRESS NOTE by Dr. Igor Aaron on 11/01/2019. Subjective: The patient denies any chest pain discomfort. Shortness of breath is better. She has no further orthopnea or PND. She has no leg edema. She has no anginal symptoms. There is no ventricle arrhythmia seen on the monitor. There is no recurrence of atrial fibrillation. There is no firing of her AICD. She states she still has a cough but less so but is still productive yellow sputum. Her chest x-ray shows improvement in the CHF. Awaiting Dr. Allen to see the patient to see the patient is a candidate for trilogy/noninvasive ventilator as an outpatient. Physical EXAMINATION: The patient is morbidly obese. At present in no acute distress. Selected Entries 11/01/19 11/01/19 11/01/19 15:11 16:12 19:42 Temperature 98.2 F 98.1 F Temperature Oral Oral Source Pulse Rate 60 59 L Respiratory 16 19 Rate Blood Pressure 90/56 L 100/63 Blood Pressure 67 75 Mean BP Location Right Arm Left Arm BP Position Supine Sitting O2 Sat by Pulse 96 96 Oximetry Fraction of 35 Inspired Oxygen (FIO2) Oxygen Flow 4.00 4.00 Rate Oxygen Delivery Nasal Cannula Nasal Cannula Method HEAD: Is atraumatic normocephalic. EYES: Pupils are equal round regular react nuvia to light. HEENT is negative. SKIN: There is no skin rashes or skin lesions. There is no particular ecchymosis. NECK: Is supple. There is mild JVD present. Carotids are equal there is no bruits. There is no lymphadenopathy. There is no goiter. There is no accessory muscle respiration use. Trachea central. LUNGS: . There is diminished air entry. On percussion there is hyperresonance. On palpation there is no chest wall tenderness, dry crackles at both bases, and also some fine rales of CHF. HEART: S1-S2 is heard. There is no S3 gallop. There is no S4 gallop. There is systolic murmur mitral regurgitation tricuspid regurgitation present. There is no aortic stenosis murmur. There is no aortic insufficiency murmur. There is no rub. ABDOMEN: Is obese. Nontender. There is no hepatosplenomegaly. Bowel sounds are well heard. There is no rebound guarding or rigidity. EXTREMITIES: Femorals are deep. Femorals are diminished. There is no femoral bruits. There is decreased leg pulses. There is mild pedal edema. PHOTOGRAPHER MOTION PICTURE: the patient is conscious awake alert oriented x3 with no focal deficits. PSYCHIATRIC: The patient judgment insight are intact. She does not appear to be agitated or anxious. Chest CT 10/28/19 00:00 IMPRESSION: Dense diffuse bilateral airspace disease edema versus pneumonia versus ARDS Trace fluid in the fissures Massive cardiomegaly Chest X-Ray 10/28/19 11:13 IMPRESSION: Patchy opacification in the mid and lower lung zones with prominent and indistinct pulmonary vasculature and cardiomegaly. Constellation of findings likely represents pulmonary edema in the setting of congestive heart failure. A superimposed infectious process would be difficult to exclude. R ecommend radiographic follow-up. Chest X-Ray 11/01/19 06:00 IMPRESSION: Improving CHF. Labs- All tests 24 hr 11/01/19 11/01/19 05:36 05:36 WBC 7.0 RBC 3.56 L Hgb 10.9 L Hct 33.0 L MCV 93 MCH 30.5 MCHC 32.8 RDW 17.9 H Plt Count 266 Lymph % (Auto) 20.7 [place] % (Auto) 5.5 Eos % (Auto) 0.0 Baso % (Auto) 0.2 Absolute Neuts (auto) 5.2 Absolute Lymphs (auto) 1.5 Absolute Monos (auto) 0.4 Absolute Eos (auto) 0.0 Absolute Basos (auto) 0.0 Seg Neutrophils % 73.6 Sodium 142.0 Potassium 4.9 Chloride 106 Carbon Dioxide 31 H Anion Gap 5 BUN 28 H Creatinine 1.58 H Est GFR ( Amer) 42 L Est GFR (MDRD) Non-Af 35 L Glucose 103 Calcium 9.4 Total Bilirubin 0.6 Direct Bilirubin 0.5 H Neonat Total Bilirubin Not Reportable Neonat Direct Bilirubin Not Reportable Neonat Indirect Bili Not Reportable AST 201 H ALT 556 H Alkaline Phosphatase 110 Total Protein 6.9 Albumin 3.9 IMPRESSION/RECOMMENDATION: 1. Acute on chronic respiratory failure. This is secondary to pneumonia, obstructive sleep apnea, and acute on chronic systolic heart failure: And bilateral patchy pneumonia. Continue BiPAP. Seems that the patient has a noninvasive ventilator [trilogy] at home but states that she does not know how to use it. We will consult Dr. Allen. 2. Acute on chronic systolic heart failure. Patient with LV ejection fraction of 25%. beta-blockers and Entresto. Continue diuretics. Continue Entresto 3. Bilateral patchy pneumonia continue antibiotics; 4. Dilated cardiomyopathy with severely reduced LV ejection fraction. 5. History of MRSA pneumonia: 6. History of amiodarone toxicity. Would recommend avoiding amiodarone 7. Chronic kidney disease: Watch renal function when diuresing the patient. 8. History of atrial fibrillation/flutter. At present most likely in sinus mechanism with paced ventricular rhythm recommend continue Eliquis. She has no history of TIA CVA 9. COPD. At present no evidence of acute exacerbation of COPD. 10. History of ventricular tachycardia, The patient has an AICD placed. If there is recurrence of ventricular tachycardia or major ventricular ectopic activity then would start the patient on small dose of sotalol. Would avoid amiodarone. 11. Hypertension: Blood pressure was high on admission at present blood pressure well controlled, on current medications. 12. Coronary artery disease: History of [place] and history of coronary bypass graft surgery. No evidence of acute coronary syndrome/non-ST ST elevation [place] this admission. 13. Obstructive sleep apnea. Note patient has been noncompliant with CPAP. Most likely has significant pulmonary hypertension. 14. AICD placement: Note the patient's basal rate is around 60 bpm. If the patient's heart failure continues then would recommend increasing the basal heart rate to 80 bpm to help combat the heart failure Medication reviewed medical regimen and management plan discussed and discussed with attending provider. Medical decision making is of moderate complexity. 40 minutes spent as patient more than 50% time spent in direct patient care. Will follow.
[2019-11-01] MEDS: ATORVASTATIN CALCIUM 80 MG TABLET PO SCH (22:31)
[2019-11-02] MEDS: IPRATROPIUM/ALBUTEROL 0.5-2.5 MG/3 ML AMPUL NEB SCH ×3 (00:24→15:36)
[2019-11-02] MEDS: ALPRAZOLAM 0.5 MG TABLET PO PRN ×3 (06:28→21:30)
[2019-11-02 07:33] LABS: ABSOLUTE LYMPHOCYTES (AUTO) 1.6 10^3/uL (0.5-4.7); ABSOLUTE MONOCYTES (AUTO) 0.4 10^3/uL (0.1-1.4); ABSOLUTE NEUT (AUTO) 4.8 10^3/uL (1.7-8.2); BASOPHILS % (AUTO) 0.2 % (0-2); HEMOGLOBIN 11.7 g/dL (12.0-15.5); LYMPHOCYTES % (AUTO) 23.6 % (13-45); MEAN CORPUSCULAR HEMOGLOBIN 30.9 pg (27.0-33.4); MEAN CORPUSCULAR HGB CONC 33.3 g/dL (32.0-36.0); MEAN CORPUSCULAR VOLUME 93 fl (80-97); MONOCYTES % (AUTO) 6.3 % (3-13); PLATELET COUNT 278 10^3/uL (150-450); RED BLOOD COUNT 3.78 10^6/uL (3.72-5.28); RED CELL DISTRIBUTION WIDTH 17.9 % (11.5-14.0); SEGMENTED NEUTROPHILS % (AUTO) 69.9 % (42-78); TOTAL CELLS COUNTED % (AUTO) 100 %; WHITE BLOOD COUNT 6.8 10^3/uL (4.0-10.5)
[2019-11-02 07:51] LABS: ALBUMIN 3.9 g/dL (3.5-5.0); ALKALINE PHOSPHATASE 102 U/L (38-126); ANION GAP 9 (5-19); ASPARTATE AMINO TRANSFERASE 74 U/L (14-36); BILIRUBIN,DIRECT 0.4 mg/dL (0.0-0.4); BILIRUBIN,TOTAL 0.6 mg/dL (0.2-1.3); BLOOD UREA NITROGEN 33 mg/dL (7-20); CALCIUM 9.2 mg/dL (8.4-10.2); CARBON DIOXIDE 30 mmol/L (22-30); CHLORIDE 102 mmol/L (98-107); GLUCOSE 98 mg/dL (75-110); TOTAL PROTEIN 6.7 g/dL (6.3-8.2)
[2019-11-02] MEDS: SPIRONOLACTONE 25 MG TABLET PO SCH (09:43)
[2019-11-02] MEDS: GUAIFENESIN 600 MG TABLET.SA PO SCH ×2 (09:48→21:29)
[2019-11-02] MEDS: FAMOTIDINE 20 MG TABLET PO SCH ×2 (09:48→21:29)
[2019-11-02] MEDS: BUSPIRONE HCL 10 MG TABLET PO SCH ×2 (09:48→21:30)
[2019-11-02] MEDS: APIXABAN 2.5 MG TABLET PO SCH ×2 (09:48→21:29)
[2019-11-02] MEDS: PREDNISONE 20 MG TABLET PO SCH (09:48)
[2019-11-02] MEDS: ASPIRIN 81 MG TABLET, ENT COATED PO SCH (09:48)
[2019-11-02] MEDS: SULFAMETHOXAZOLE/TRIMETHOPRIM 800-160 MG TABLET PO SCH ×2 (09:48→21:29)
[2019-11-02] MEDS: DOCUSATE SODIUM 100 MG CAPSULE PO SCH (09:48)
[2019-11-02] MEDS: SACUBITRIL/VALSARTAN 49 MG/51 MG TABLET PO SCH ×2 (09:49→21:28)
[2019-11-02] MEDS: PAROXETINE HCL 20 MG TABLET PO SCH (09:49)
[2019-11-02] MEDS: METOPROLOL SUCCINATE 50 MG TAB.SR.24H PO SCH (09:49)
[2019-11-02] MEDS: OXYCODONE-ACETAMINOPHEN 5-325 MG TABLET PO PRN ×3 (09:52→21:29)
[2019-11-02] MEDS: OXYCODONE HCL IR 5 MG TABLET PO PRN ×3 (09:52→21:27)
[2019-11-02] MEDS: ONDANSETRON HCL INJ/PF 4 MG/2 ML SDV IV PRN (09:55)
[2019-11-02] MEDS: FUROSEMIDE 40 MG TABLET PO SCH (10:02)
--- NOTE | 2019-11-02 13:12 | Progress Note ---
Provider Note Provider Note: CARDIOLOGY PROGRESS NOTE by Dr. Griselda Martin on 11/02/2019. Subjective: The patient states she is not coughing up anymore. Her shortness of breath is much better. She still has orthopnea. There is no PND or leg edema. She has no anginal symptoms. There is no ventricular arrhythmias seen on the monitor. There is no firing of the AICD. It is not clear if Dr. Allen saw the patient. Await his consult. PHYSICAL EXAMINATION: The patient morbidly obese. In no acute distress. Selected Entries 11/02/19 15:24 Temperature 98.0 F Temperature Oral Source Pulse Rate 60 Respiratory 16 Rate Blood Pressure 96/63 L Blood Pressure 74 Mean BP Location Right Arm BP Position Sitting O2 Sat by Pulse 99 Oximetry Oxygen Flow 4.00 Rate Oxygen Delivery Nasal Cannula Method HEAD: Is atraumatic normocephalic. EYES: Pupils are equal round regular reactive to light. HEENT is negative. SKIN: There is no skin rashes or skin lesions. There is no particular ecchymosis. NECK: Is supple. There is mild JVD present. Carotids are equal there is no bruits. There is no lymphadenopathy. There is no goiter. There is no accessory muscle respiration use. Trachea central. LUNGS: . There is diminished air entry. On percussion there is hyperresonance. On palpation there is no chest wall tenderness, dry crackles at both bases, and also some fine rales of CHF. HEART: S1-S2 is heard. There is no S3 gallop. There is no S4 gallop. There is systolic murmur mitral regurgitation tricuspid regurgitation present. There is no aortic stenosis murmur. There is no aortic insufficiency murmur. There is no rub. ABDOMEN: Is obese. Nontender. There is no hepatosplenomegaly. Bowel sounds are well heard. There is no rebound guarding or rigidity. EXTREMITIES: Femorals are deep. Femorals are diminished. There is no femoral bruits. There is decreased leg pulses. There is mild pedal edema. [employer]ATE [employer]ICE: the patient is conscious awake alert oriented x3 with no focal deficits. PSYCHIATRIC: The patient judgment insight are intact. She does not appear to be agitated or anxious. Chest CT 10/28/19 00:00 IMPRESSION: Dense diffuse bilateral airspace disease edema versus pneumonia versus ARDS Trace fluid in the fissures Massive cardiomegaly Chest X-Ray 10/28/19 11:13 IMPRESSION: Patchy opacification in the mid and lower lung zones with prominent and indistinct pulmonary vasculature and cardiomegaly. Constellation of findings likely represents pulmonary edema in the setting of congestive heart failure. A superimposed infectious process would be difficult to exclude. Recommend radiographic follow-up. Chest X-Ray 11/01/19 06:00 IMPRESSION: Improving CHF. Labs- All tests 24 hr 11/02/19 11/02/19 06:13 06:13 WBC 6.8 RBC 3.78 Hgb 11.7 L Hct 35.0 L MCV 93 MCH 30.9 MCHC 33.3 RDW 17.9 H Plt Count 278 Lymph % (Auto) 23.6 [place] % (Auto) 6.3 Eos % (Auto) 0.0 Baso % (Auto) 0.2 Absolute Neuts (auto) 4.8 Absolute Lymphs (auto) 1.6 Absolute Monos (auto) 0.4 Absolute Eos (auto) 0.0 Absolute Basos (auto) 0.0 Seg Neutrophils % 69.9 Sodium 140.7 Potassium 5.0 Chloride 102 Carbon Dioxide 30 Anion Gap 9 BUN 33 H Creatinine 1.70 H Est GFR ( Amer) 39 L Est GFR (MDRD) Non-Af 32 L Glucose 98 Calcium 9.2 Total Bilirubin 0.6 Direct Bilirubin 0.4 Neonat Total Bilirubin Not Reportable Neonat Direct Bilirubin Not Reportable Neonat Indirect Bili Not Reportable AST 74 H ALT 385 H Alkaline Phosphatase 102 Total Protein 6.7 Albumin 3.9 IMPRESSION/RECOMMENDATION: 1. Acute on chronic respiratory failure. This is secondary to pneumonia, obst ructive sleep apnea, and acute on chronic systolic heart failure: And bilateral patchy pneumonia. Continue BiPAP. Seems that the patient has a noninvasive ventilator [trilogy] at home but states that she does not know how to use it. We will consult Dr. Allen. 2. Acute on chronic systolic heart failure. Patient with LV ejection fraction of 25%. beta-blockers and Entresto. Continue diuretics. Continue Entresto 3. Bilateral patchy pneumonia continue antibiotics; 4. Dilated cardiomyopathy with severely reduced LV ejection fraction. 5. History of MRSA pneumonia: 6. History of amiodarone toxicity. Would recommend avoiding amiodarone 7. Chronic kidney disease: Stable at stage III. Watch patient's potassium on spironolactone. The patient's potassium today is 5.0.. 8. History of atrial fibrillation/flutter. At present most likely in sinus mechanism with paced ventricular rhythm recommend continue Eliquis. She has no history of TIA CVA 9. COPD. At present no evidence of acute exacerbation of COPD. 10. History of ventricular tachycardia, The patient has an AICD placed. If there is recurrence of ventricular tachycardia or major ventricular ectopic activity then would start the patient on small dose of sotalol. Would avoid amiodarone. 11. Hypertension: Blood pressure was high on admission at present blood pressure well controlled, on current medications. 12. Coronary artery disease: History of [place] and history of coronary bypass graft surgery. No evidence of acute coronary syndrome/non-ST ST elevation [place] this admission. 13. Obstructive sleep apnea. Note patient has been noncompliant with CPAP. Most likely has significant pulmonary hypertension. 14. AICD placement: Note the patient's basal rate is around 60 bpm. If the patient's heart failure continues then would recommend increasing the basal heart rate to 80 bpm to help combat the heart failure Medication reviewed medical regimen and management plan discussed and discussed with attending provider. Medical decision making is of moderate complexity. 40 minutes spent as patient more than 50% time spent in direct patient care. Will follow.
[2019-11-02] MEDS ORDERED: (PENDING PHARMACY ID) (Oxycodone Hcl/Acetaminophen [Percocet 7.5-325 Mg Tablet] 1 EACH) PO PRN (14:06)
--- NOTE | 2019-11-02 16:32 | PDOC PROGRESS REPORT ---
Subjective Progress Note for:: 11/02/19 Subjective:: FRANKI DEL ROSARIO, 48-year-old female past medical history of coronary artery disease CABG in 2006, CHF with LVEF of 20 to 25%, atrial fibrillation, ICD and pacemaker placement COPD CKD stage III GERD depression morbid obesity, admitted on October 27 due to shortness of breath. Has x-ray showed pulmonary edema with possible superimposed infection. Pressure noted to be high in the ED and she was initially started on nitroglycerin drip. BNP 28,000 which is around her baseline, creatinine 2.05 baseline of around 1.5. Cardiology was consulted she was started on Lasix 20 mg IV daily home medications Entresto and metoprolol were continued. She was put on BIPAP for oxygen support. D3 hospital stay 10/30/19: She was seen and examined at bed side. Complains of pain all over, her home pain medications has been resumed. On bipap. Denies any chest pain, SOB, palpitations. D4 hospital stay 10/31/19: She was seen and examined at bedside. Reports improvement in terms of breathing. Afebrile, good appetite. Again requesting morphine dose. She is currently on her home pain medications. According to the nurse, she still desaturates when taken off the BIPAP. Oral lasix dose resumed, aldactone 12.5 mg daily was added for HF. D5 hospital stay 11/01/19: she was seen and examined at bedside. Reports chronic pain all over. Otherwise, she reports that her breathing is much better. She remains on BiPAP most days, at home she uses 4 L of nasal cannula. She was started on Aldactone yesterday 12.5 once a day. Blood pressure noted to be low this morning 85/50. I held the Aldactone and stop the Imdur, hopefully this will help with her blood pressure. According to the patient she has a BiPAP however she does not know how to use it, plan is to have discharge planning reach out to company that issue the machine to that they can come in her house and teach her how to use it. Reason For Visit: RESPIRATORY FAILURE WITH HYPOXIA AND HYPERCAPNIA Physical Exam Vital Signs: Temp Pulse Resp BP Pulse Ox 97.6 F 61 16 81/44 L 99 11/02/19 08:10 11/02/19 15:36 11/02/19 15:36 11/02/19 08:00 11/02/19 15:36 Intake & Output 11/01/19 11/02/19 11/03/19 06:59 06:59 06:59 Intake Total 930 Balance 930 Weight 108.6 kg 109 kg General appearance: PRESENT: cooperative, mild distress Head exam: PRESENT: atraumatic, normocephalic Eye exam: PRESENT: EOMI, PERRLA Mouth exam: PRESENT: moist Neck exam: PRESENT: full ROM Respiratory exam: PRESENT: rales, symmetrical, unlabored Cardiovascular exam: PRESENT: RRR, +S1, +S2 Pulses: PRESENT: +2 pedal pulses bilateral Vascular exam: PRESENT: normal capillary refill GI/Abdominal exam: PRESENT: normal bowel sounds, soft. ABSENT: rebound, tende rness Musculoskeletal exam: PRESENT: full ROM Neurological exam: PRESENT: alert, awake, oriented to person, oriented to place, oriented to time, oriented to situation Psychiatric exam: PRESENT: normal mood Results Laboratory Results: 11/02/19 06:13 11/02/19 06:13 11/02/19 11/02/19 06:13 06:13 WBC 6.8 RBC 3.78 Hgb 11.7 L Hct 35.0 L MCV 93 MCH 30.9 MCHC 33.3 RDW 17.9 H Plt Count 278 Seg Neutrophils % 69.9 Sodium 140.7 Potassium 5.0 Chloride 102 Carbon Dioxide 30 Anion Gap 9 BUN 33 H Creatinine 1.70 H Est GFR ( Amer) 39 L Glucose 98 Calcium 9.2 Total Bilirubin 0.6 AST 74 H Alkaline Phosphatase 102 Total Protein 6.7 Albumin 3.9 10/28/19 13:01 Troponin I 0.090 NT-Pro-B Natriuret Pep 71131 H Impressions: Chest CT 10/28/19 00:00 IMPRESSION: Dense diffuse bilateral airspace disease edema versus pneumonia versus ARDS Trace fluid in the fissures Massive cardiomegaly Chest X-Ray 11/01/19 06:00 IMPRESSION: Improving CHF. Assessment and Plan - Diagnosis (1) Acute on chronic systolic (congestive) heart failure Is this a current diagnosis for this admission?: Yes Plan: - admitted due to SOB - CXR +ve pulmonary edema - BNP 28,000. Last admission 66046 which is around her baseline - no recent echo. Will hold repeating for now - aldactone held today due to hypotension - Imdur held today as well - oral lasix dose 60 mg PO daily resumed. Will continue to diurese for today. - continue Sacubitril-Valsartan, metoprolol dose decreased to 25 mg BID due to h ypotension - has ICD/pacemaker already - wean off bipap - Dr. Ragsdale following - daily weights 110 kg to 108 - strict IO (2) COPD (chronic obstructive pulmonary disease) Qualifiers: COPD type: COPD with acute exacerbation Qualified Code(s): J44.1 - Chronic obstructive pulmonary disease with (acute) exacerbation Is this a current diagnosis for this admission?: Yes Plan: - improved SOB. - Hx MRSA in sputum. - blood culture negative x 2 - Sputum culture growing gram-positive cocci in clusters - on scheduled and as needed nebulizer treatments. - Prednisone 60 mg p.o. daily d5 - continue Mucinex twice daily. - continue Bactrim DS twice daily D4 for Pneumonia - repeat CXR showed improving aeration - continue o2 support - Pulmonary toilet is encouraged with incentive spirometer, flutter valve, and early ambulation. (3) Acute respiratory failure with hypoxia and hypercapnia Is this a current diagnosis for this admission?: Yes Plan: Improved. Chest x-ray shows patchy infiltrates; pulmonary edema with possible underlying infectious process. Recommends follow-up imaging. - CT chest dense diffuse bilateral airspace disease edema versus pneumonia versus ARDS, cardiomegaly, is fluid in the fissures - COVID-19 negative - continue o2 support BIPAP PRN - continue diuresis with home dose of lasix. (4) Acute renal failure superimposed on chronic kidney disease Qualifiers: Acute renal failure type: unspecified Chronic kidney disease stage: stage 3 (moderate) Qualified Code(s): N17.9 - Acute kidney failure, unspecified; N18.3 - Chronic kidney disease, stage 3 (moderate) Is this a current diagnosis for this admission?: Yes Plan: -Creatinine 2.05-> 1.91>2.18>1.65>1.58; up from baseline of 1.50. - lasix 60 mg PO daily resumed - aldactone held - strict IO -Avoid nephrotoxic medications. -daily BMP (5) Atrial fibrillation Qualifiers: Atrial fibrillation type: unspecified Qualified Code(s): I48.91 - Unspecified atrial fibrillation Is this a current diagnosis for this admission?: Yes Plan: - patient has a pacemaker and ICD - Rate controlled on metoprolol - eliquis for AC (6) CAD (coronary artery disease) Qualifiers: Coronary Disease-Associated Artery/Lesion type: bypass graft [place] vs. transplanted heart: [place] heart Associated angina: with unspecified angina Qualified Code(s): I25.709 - Atherosclerosis of coronary artery bypass graft(s), unspecified, with unspecified angina pectoris Is this a current diagnosis for this admission?: Yes Plan: - no chest pain - trop 0.090 - continue aspirin, metoprolol, entresto, statin (7) Hypertension Qualifiers: Hypertension type: essential hypertension Qualified Code(s): I10 - Essential (primary) hypertension Is this a current diagnosis for this admission?: Yes Plan: - continue metoprolol, entresto (8) RUBIN (obstructive sleep apnea) Is this a current diagnosis for this admission?: Yes Plan: BiPAP nightly and PRN (9) Morbid obesity Is this a current diagnosis for this admission?: Yes Plan: - lifestyle modification advised - cardiac diet - Time Time Spent with patient: 25-34 minutes Anticipated Discharge Disposition: Home, Self Care Anticipated Discharge Timeframe: to be determined
[2019-11-02] MEDS: METOPROLOL SUCCINATE 25 MG TAB.SR.24H PO SCH (21:29)
[2019-11-02] MEDS: ATORVASTATIN CALCIUM 80 MG TABLET PO SCH (21:29)
[2019-11-02] MEDS ORDERED: METOPROLOL SUCCINATE 50 MG TAB.SR.24H PO SCH (22:00)
[2019-11-03] MEDS: IPRATROPIUM/ALBUTEROL 0.5-2.5 MG/3 ML AMPUL NEB SCH ×3 (00:18→16:05)
[2019-11-03] MEDS: OXYCODONE HCL IR 5 MG TABLET PO PRN ×2 (03:54→21:21)
[2019-11-03] MEDS: ALPRAZOLAM 0.5 MG TABLET PO PRN ×3 (03:54→21:21)
[2019-11-03] MEDS: OXYCODONE-ACETAMINOPHEN 5-325 MG TABLET PO PRN ×3 (03:54→21:20)
[2019-11-03 07:42] LABS: ABSOLUTE BASOPHILS # (AUTO) 0.1 10^3/uL (0.0-0.2); ABSOLUTE MONOCYTES (AUTO) 0.5 10^3/uL (0.1-1.4); ABSOLUTE NEUT (AUTO) 5.5 10^3/uL (1.7-8.2); BASOPHILS % (AUTO) 0.7 % (0-2); EOSINOPHILS % (AUTO) 0.1 % (0-6); HEMATOCRIT 36.5 % (36.0-47.0); HEMOGLOBIN 12.4 g/dL (12.0-15.5); LYMPHOCYTES % (AUTO) 24.6 % (13-45); MEAN CORPUSCULAR HEMOGLOBIN 31.2 pg (27.0-33.4); MEAN CORPUSCULAR HGB CONC 33.8 g/dL (32.0-36.0); MEAN CORPUSCULAR VOLUME 92 fl (80-97); MONOCYTES % (AUTO) 6.4 % (3-13); PLATELET COUNT 294 10^3/uL (150-450); RED BLOOD COUNT 3.96 10^6/uL (3.72-5.28); RED CELL DISTRIBUTION WIDTH 17.9 % (11.5-14.0); SEGMENTED NEUTROPHILS % (AUTO) 68.2 % (42-78); TOTAL CELLS COUNTED % (AUTO) 100 %
[2019-11-03 08:04] LABS: ALBUMIN 3.9 g/dL (3.5-5.0); ALKALINE PHOSPHATASE 94 U/L (38-126); ANION GAP 7 (5-19); ASPARTATE AMINO TRANSFERASE 36 U/L (14-36); BILIRUBIN,DIRECT 0.5 mg/dL (0.0-0.4); BILIRUBIN,TOTAL 0.6 mg/dL (0.2-1.3); BLOOD UREA NITROGEN 36 mg/dL (7-20); CALCIUM 9.2 mg/dL (8.4-10.2); CARBON DIOXIDE 33 mmol/L (22-30); CHLORIDE 101 mmol/L (98-107); GLUCOSE 104 mg/dL (75-110); POTASSIUM 4.8 mmol/L (3.6-5.0); TOTAL PROTEIN 6.8 g/dL (6.3-8.2)
[2019-11-03] MEDS: ISOSORBIDE MONONITRATE 30 MG TAB.ER.24H PO SCH (09:10)
[2019-11-03] MEDS: FUROSEMIDE 40 MG TABLET PO SCH (09:11)
[2019-11-03] MEDS: DOCUSATE SODIUM 100 MG CAPSULE PO SCH (09:12)
[2019-11-03] MEDS: BUSPIRONE HCL 10 MG TABLET PO SCH ×2 (09:12→21:20)
[2019-11-03] MEDS: ASPIRIN 81 MG TABLET, ENT COATED PO SCH (09:13)
[2019-11-03] MEDS: PREDNISONE 20 MG TABLET PO SCH (09:13)
[2019-11-03] MEDS: SACUBITRIL/VALSARTAN 49 MG/51 MG TABLET PO SCH (09:14)
[2019-11-03] MEDS: APIXABAN 2.5 MG TABLET PO SCH ×2 (09:14→21:20)
[2019-11-03] MEDS: GUAIFENESIN 600 MG TABLET.SA PO SCH ×2 (09:14→21:20)
[2019-11-03] MEDS: FAMOTIDINE 20 MG TABLET PO SCH ×2 (09:15→21:20)
[2019-11-03] MEDS: PAROXETINE HCL 20 MG TABLET PO SCH (09:15)
[2019-11-03] MEDS: SULFAMETHOXAZOLE/TRIMETHOPRIM 800-160 MG TABLET PO SCH ×2 (09:15→21:20)
[2019-11-03] MEDS: METOPROLOL SUCCINATE 25 MG TAB.SR.24H PO SCH ×2 (10:16→12:28)
--- NOTE | 2019-11-03 12:04 | Progress Note ---
Provider Note Provider Note: Cardiology PROGRESS NOTE by Dr. Griselda Martin on 11/03/2019 SUBJECTIVE: Patient denies any chest pain or discomfort. There is no cough or shortness of breath. There there is chronic orthopnea which is improved. There is no PND or leg edema. There is no palpitations. There is no firing of the AICD. The patient is anxious to go home but her blood pressure is low hence we will start the patient on midodrine and also Dr. Allen did see the patient and he wants to get a full PFTs on the patient prior to determining if the patient will qualify for trilogy/noninvasive ventilator as an outpatient. PHYSICAL EXAMINATION: The patient is morbidly obese. In no acute distress Selected Entries 11/03/19 11/03/19 10:14 11:40 Temperature 98.4 F Pulse Rate 60 Respiratory 16 Rate Blood Pressure 90/45 L Blood Pressure 60 Mean O2 Sat by Pulse 100 Oximetry Oxygen Flow 4.00 Rate Oxygen Delivery Nasal Cannula Method HEAD: Is atraumatic normocephalic. EYES: Pupils are equal round regular reactive to light. HEENT is negative. SKIN: There is no skin rashes or skin lesions. There is no particular ecchymosis. NECK: Is supple. There is mild JVD present. Carotids are equal there is no bruits. There is no lymphadenopathy. There is no goiter. There is no accessory muscle respiration use. Trachea central. LUNGS: . There is diminished air entry. On percussion there is hyperresonance. On palpation there is no chest wall tenderness, dry crackles at both bases, and also some fine rales of CHF. HEART: S1-S2 is heard. There is no S3 gallop. There is no S4 gallop. There is systolic murmur mitral regurgitation tricuspid regurgitation present. There is no aortic stenosis murmur. There is no aortic insufficiency murmur. There is no rub. ABDOMEN: Is obese. Nontender. There is no hepatosplenomegaly. Bowel sounds are well heard. There is no rebound guarding or rigidity. EXTREMITIES: Femorals are deep. Femorals are diminished. There is no femoral bruits. There is decreased leg pulses. There is mild pedal edema. 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 PSYCHIATRIC: The patient judgment insight are intact. She does not appear to be agitated or anxious. Chest CT 10/28/19 00:00 IMPRESSION: Dense diffuse bilateral airspace disease edema versus pneumonia versus ARDS Trace fluid in the fissures Massive cardiomegaly Chest X-Ray 10/28/19 11:13 IMPRESSION: Patchy opacification in the mid and lower lung zones with prominent and indistinct pulmonary vasculature and cardiomegaly. Constellation of findings likely represents pulmonary edema in the setting of congestive heart failure. A superimposed infectious process would be difficult to exclude. Recommend radiographic follow-up. Chest X-Ray 11/01/19 06:00 IMPRESSION: Improving CHF. Labs- All tests 24 hr 11/03/19 11/03/19 07:24 07:24 WBC 8.0 RBC 3.96 Hgb 12.4 Hct 36.5 MCV 92 MCH 31.2 MCHC 33.8 RDW 17.9 H Plt Count 294 Lymph % (Auto) 24.6 [place] % (Auto) 6.4 Eos % (Auto) 0.1 Baso % (Auto) 0.7 Absolute Neuts (auto) 5.5 Absolute Lymphs (auto) 2.0 Absolute Monos (auto) 0.5 Absolute Eos (auto) 0.0 Absolute Basos (auto) 0.1 Seg Neutrophils % 68.2 Sodium 140.9 Potassium 4.8 Chloride 101 Carbon Dioxide 33 H Anion Gap 7 BUN 36 H Creatinine 1.98 H Est GFR ( Amer) 33 L Est GFR (MDRD) Non-Af 27 L Glucose 104 Calcium 9.2 Total Bilirubin 0.6 Direct Bilirubin 0.5 H Neonat Total Bilirubin Not Reportable Neonat Direct Bilirubin Not Reportable Neonat Indirect Bili Not Reportable AST 36 ALT 270 H Alkaline Phosphatase 94 Total Protein 6.8 Albumin 3.9 IMPRESSION/RECOMMENDATION: 1. HYPOTENSION: Patient blood pressure is low but the patient is asymptomatic. We will start the patient on midodrine. 2. Acute on chronic respiratory failure. This is secondary to pneumonia, obstructive sleep apnea, and acute on chronic systolic heart failure: And bilateral patchy pneumonia. Continue BiPAP. 3. Acute on chronic systolic heart failure. Patient with LV ejection fraction of 25%. beta-blockers and Entresto. Continue diuretics. Continue Entresto 4. Bilateral patchy pneumonia continue antibiotics; 5. Dilated cardiomyopathy with severely reduced LV ejection fraction. 6. History of MRSA pneumonia: 7. History of amiodarone toxicity. Would recommend avoiding amiodarone 8. Chronic kidney disease: Stable at stage III. Watch patient's potassium on spironolactone. T 9. History of atrial fibrillation/flutter. At present most likely in sinus mechanism with paced ventricular rhythm recommend continue Eliquis. She has no history of TIA CVA 10. COPD. At present no evidence of acute exacerbation of COPD. 11. History of ventricular tachycardia, The patient has an AICD placed. If there is recurrence of ventricular tachycardia or major ventricular ectopic activity then would start the patient on small dose of sotalol. Would avoid amiodarone. 12. Coronary artery disease: History of [place] and history of coronary bypass graft surgery. No evidence of acute coronary syndrome/non-ST ST elevation [place] this admission. 13. Obstructive sleep apnea. Note patient has been noncompliant with CPAP. Most likely has significant pulmonary hypertension. 14. AICD placement: Note the patient's basal rate is around 60 bpm. If the patient's heart failure continues then would recommend increasing the basal heart rate to 80 bpm to help combat the heart failure Medication reviewed medical regimen and management plan discussed and discussed with attending provider. Medical decision making is of moderate complexity. 40 minutes spent as patient more than 50% time spent in direct patient care. Will follow.
[2019-11-03] MEDS ORDERED: MIDODRINE HCL 5 MG TABLET PO ONE (12:07)
[2019-11-03] MEDS ORDERED: MIDODRINE HCL 5 MG TABLET PO SCH ×2 (14:00→18:00)
--- NOTE | 2019-11-03 14:03 | PDOC PROGRESS REPORT ---
Subjective Progress Note for:: 11/03/19 Subjective:: FRANKI DEL ROSARIO, 48-year-old female past medical history of coronary artery disease CABG in 2006, CHF with LVEF of 20 to 25%, atrial fibrillation, ICD and pacemaker placement COPD CKD stage III GERD depression morbid obesity, admitted on October 27 due to shortness of breath. Has x-ray showed pulmonary edema with possible superimposed infection. Pressure noted to be high in the ED and she was initially started on nitroglycerin drip. BNP 28,000 which is around her baseline, creatinine 2.05 baseline of around 1.5. Cardiology was consulted she was started on Lasix 20 mg IV daily home medications Entresto and metoprolol were continued. She was put on BIPAP for oxygen support. D3 hospital stay 10/30/19: She was seen and examined at bed side. Complains of pain all over, her home pain medications has been resumed. On bipap. Denies any chest pain, SOB, palpitations. D4 hospital stay 10/31/19: She was seen and examined at bedside. Reports improvement in terms of breathing. Afebrile, good appetite. Again requesting morphine dose. She is currently on her home pain medications. According to the nurse, she still desaturates when taken off the BIPAP. Oral lasix dose resumed, aldactone 12.5 mg daily was added for HF. D5 hospital stay 11/01/19: she was seen and examined at bedside. Reports chronic pain all over. Otherwise, she reports that her breathing is much better. She remains on BiPAP most days, at home she uses 4 L of nasal cannula. She was started on Aldactone yesterday 12.5 once a day. Blood pressure noted to be low this morning 85/50. I held the Aldactone and stop the Imdur, hopefully this will help with her blood pressure. According to the patient she has a BiPAP however she does not know how to use it, plan is to have discharge planning reach out to company that issue the machine to that they can come in her house and teach her how to use it. D6 hospital stay 11/02/19: She was seen and examined at bedside. Denied chest pain, SOB. Breathing improved. Imdur dose and aldactone D7 hospital stay 11/03/19: Seen and examined at bedside. She reports that she is ready to go home. Reports improvement of pain since resuming her home dose of percocet. BP still marginal this morning but she denies dizziness, chest pain, SOB. Reason For Visit: RESPIRATORY FAILURE WITH HYPOXIA AND HYPERCAPNIA Physical Exam Vital Signs: Temp Pulse Resp BP Pulse Ox 98.4 F 60 16 85/53 L 100 11/03/19 11:40 11/03/19 11:40 11/03/19 11:40 11/03/19 11:40 11/03/19 11:40 Intake & Output 11/02/19 11/03/19 11/04/19 06:59 06:59 06:59 Intake Total 500 Output Total 1 Balance 499 Weight 109 kg 110.2 kg Results Laboratory Results: 11/03/19 07:24 11/03/19 07:24 11/03/19 11/03/19 07:24 07:24 WBC 8.0 RBC 3.96 Hgb 12.4 Hct 36.5 MCV 92 MCH 31.2 MCHC 33.8 RDW 17.9 H Plt Count 294 Seg Neutrophils % 68.2 Sodium 140.9 Potassium 4.8 Chloride 101 Carbon Dioxide 33 H Anion Gap 7 BUN 36 H Creatinine 1.98 H Est GFR ( Amer) 33 L Glucose 104 Calcium 9.2 Total Bilirubin 0.6 AST 36 Alkaline Phosphatase 94 Total Protein 6.8 Albumin 3.9 10/28/19 17:17 Blood Blood Culture - Final NO GROWTH IN 5 DAYS 10/28/19 13:01 Blood Blood Culture - Final NO GROWTH IN 5 DAYS 10/28/19 13:01 Troponin I 0.090 NT-Pro-B Natriuret Pep 28291 H Impressions: Chest CT 10/28/19 00:00 IMPRESSION: Dense diffuse bilateral airspace disease edema versus pneumonia versus ARDS Trace fluid in the fissures Massive cardiomegaly Chest X-Ray 11/01/19 06:00 IMPRESSION: Improving CHF. Assessment and Plan - Diagnosis (1) Acute on chronic systolic (congestive) heart failure Is this a current diagnosis for this admission?: Yes (2) COPD (chronic obstructive pulmonary disease) Qualifiers: COPD type: COPD with acute exacerbation Qualified Code(s): J44.1 - Chronic obstructive pulmonary disease with (acute) exacerbation Is this a current diagnosis for this admission?: Yes Plan: - improved SOB. - Hx MRSA in sputum. - blood culture negative x 2 - Sputum culture growing gram-positive cocci in clusters - on scheduled and as needed nebulizer treatments. - Prednisone 60 mg p.o. daily d5 - continue Mucinex twice daily. - continue Bactrim DS twice daily D5 for Pneumonia - repeat CXR showed improving aeration - Dr. Allen consulted - continue o2 support - Pulmonary toilet is encouraged with incentive spirometer, flutter valve, and early ambulation. (3) Acute respiratory failure with hypoxia and hypercapnia Is this a current diagnosis for this admission?: Yes (4) Acute renal failure superimposed on chronic kidney disease Qualifiers: Acute renal failure type: unspecified Chronic kidney disease stage: stage 3 (moderate) Qualified Code(s): N17.9 - Acute kidney failure, unspecified; N18.3 - Chronic kidney disease, stage 3 (moderate) Is this a current diagnosis for this admission?: Yes (5) Atrial fibrillation Qualifiers: Atrial fibrillation type: unspecified Qualified Code(s): I48.91 - Unspecified atrial fibrillation Is this a current diagnosis for this admission?: Yes (6) CAD (coronary artery disease) Qualifiers: Coronary Disease-Associated Artery/Lesion type: bypass graft [place] vs. transplanted heart: [place] heart Associated angina: with unspecified angina Qualified Code(s): I25.709 - Atherosclerosis of coronary artery bypass graft(s), unspecified, with unspecified angina pectoris Is this a current diagnosis for this admission?: Yes (7) Hypertension Qualifiers: Hypertension type: essential hypertension Qualified Code(s): I10 - Essential (primary) hypertension Is this a current diagnosis for this admission?: Yes (8) RUBIN (obstructive sleep apnea) Is this a current diagnosis for this admission?: Yes (9) Morbid obesity Is this a current diagnosis for this admission?: Yes - Time Time Spent with patient: 15-24 minutes Medications reviewed and adjusted accordingly: Yes Anticipated Discharge Disposition: Home, Self Care Anticipated Discharge Timeframe: to be determined
[2019-11-03] MEDS: ATORVASTATIN CALCIUM 80 MG TABLET PO SCH (21:20)
[2019-11-03] MEDS: MIDODRINE HCL 5 MG TABLET PO SCH (21:21)
[2019-11-04] MEDS: IPRATROPIUM/ALBUTEROL 0.5-2.5 MG/3 ML AMPUL NEB SCH ×3 (00:26→16:19)
[2019-11-04] MEDS: OXYCODONE-ACETAMINOPHEN 5-325 MG TABLET PO PRN ×4 (03:54→23:26)
[2019-11-04] MEDS: OXYCODONE HCL IR 5 MG TABLET PO PRN ×4 (03:55→23:26)
[2019-11-04] MEDS: ALPRAZOLAM 0.5 MG TABLET PO PRN ×4 (03:56→23:26)
[2019-11-04 05:37] LABS: ABSOLUTE LYMPHOCYTES (AUTO) 2.1 10^3/uL (0.5-4.7); ABSOLUTE MONOCYTES (AUTO) 0.6 10^3/uL (0.1-1.4); ABSOLUTE NEUT (AUTO) 6.2 10^3/uL (1.7-8.2); BASOPHILS % (AUTO) 0.4 % (0-2); HEMATOCRIT 36.6 % (36.0-47.0); HEMOGLOBIN 12.4 g/dL (12.0-15.5); LYMPHOCYTES % (AUTO) 23.2 % (13-45); MEAN CORPUSCULAR HEMOGLOBIN 31.3 pg (27.0-33.4); MEAN CORPUSCULAR HGB CONC 33.9 g/dL (32.0-36.0); MEAN CORPUSCULAR VOLUME 93 fl (80-97); MONOCYTES % (AUTO) 6.9 % (3-13); PLATELET COUNT 312 10^3/uL (150-450); RED BLOOD COUNT 3.96 10^6/uL (3.72-5.28); RED CELL DISTRIBUTION WIDTH 18.1 % (11.5-14.0); SEGMENTED NEUTROPHILS % (AUTO) 69.5 % (42-78); TOTAL CELLS COUNTED % (AUTO) 100 %
[2019-11-04] MEDS: MIDODRINE HCL 5 MG TABLET PO SCH ×3 (05:50→22:05)
[2019-11-04 06:19] LABS: ALBUMIN 3.9 g/dL (3.5-5.0); ALKALINE PHOSPHATASE 90 U/L (38-126); ANION GAP 8 (5-19); ASPARTATE AMINO TRANSFERASE 32 U/L (14-36); BILIRUBIN,DIRECT 0.5 mg/dL (0.0-0.4); BILIRUBIN,TOTAL 0.5 mg/dL (0.2-1.3); BLOOD UREA NITROGEN 47 mg/dL (7-20); CALCIUM 9.1 mg/dL (8.4-10.2); CARBON DIOXIDE 30 mmol/L (22-30); CHLORIDE 102 mmol/L (98-107); GLUCOSE 105 mg/dL (75-110); POTASSIUM 5.1 mmol/L (3.6-5.0); TOTAL PROTEIN 6.8 g/dL (6.3-8.2)
[2019-11-04] MEDS: FUROSEMIDE 40 MG TABLET PO SCH (10:02)
[2019-11-04] MEDS: BUSPIRONE HCL 10 MG TABLET PO SCH ×2 (10:03→22:04)
[2019-11-04] MEDS: DOCUSATE SODIUM 100 MG CAPSULE PO SCH (10:03)
[2019-11-04] MEDS: PAROXETINE HCL 20 MG TABLET PO SCH (10:03)
[2019-11-04] MEDS: ASPIRIN 81 MG TABLET, ENT COATED PO SCH (10:04)
[2019-11-04] MEDS: PREDNISONE 20 MG TABLET PO SCH (10:04)
[2019-11-04] MEDS: GUAIFENESIN 600 MG TABLET.SA PO SCH ×2 (10:04→22:05)
[2019-11-04] MEDS: FAMOTIDINE 20 MG TABLET PO SCH ×2 (10:05→22:05)
[2019-11-04] MEDS: APIXABAN 2.5 MG TABLET PO SCH ×2 (10:05→22:05)
[2019-11-04] MEDS: SULFAMETHOXAZOLE/TRIMETHOPRIM 800-160 MG TABLET PO SCH ×2 (10:05→22:04)
--- NOTE | 2019-11-04 12:03 | Progress Note ---
Provider Note Provider Note: CARDIOLOGY PROGRESS NOTE by Dr. Griselda Martin on 11/04/2019 SUBJECTIVE: Although the patient is asymptomatic her blood pressure is low. Her beta-rip and Entresto has been held. Her Middaugh drain has been increased to 10 mg p.o. 3 times daily she denies any chest pain or discomfort. There is no PND. Her orthopnea is much improved. There is no leg edema. There is no palpitations. There is no arrhythmias seen on the monitor. There is no firing of AICD PHYSICAL EXAMINATION: The patient morbidly obese but at present in no acute distress. Selected Entries 11/04/19 11/04/19 07:55 07:59 Temperature 97.7 F Temperature Oral Source Pulse Rate 60 Respiratory 14 Rate Blood Pressure 98/78 L Blood Pressure 84 Mean BP Location Right Arm BP Position Supine O2 Sat by Pulse 100 Oximetry Oxygen Delivery Bipap Method Percent of 35 Oxygen HEAD: Is atraumatic normocephalic. EYES: Pupils are equal round regular reactive to light. HEENT is negative. SKIN: There is no skin rashes or skin lesions. There is no particular ecchymosis. NECK: Is supple. There is mild JVD present. Carotids are equal there is no bruits. There is no lymphadenopathy. There is no goiter. There is no accessory muscle respiration use. Trachea central. LUNGS: . There is diminished air entry. On percussion there is hyperresonance. On palpation there is no chest wall tenderness, dry crackles at both bases, and also some fine rales of CHF. HEART: S1-S2 is heard. There is no S3 gallop. There is no S4 gallop. There is systolic murmur mitral regurgitation tricuspid regurgitation present. There is no aortic stenosis murmur. There is no aortic insufficiency murmur. There is no rub. ABDOMEN: Is obese. Nontender. There is no hepatosplenomegaly. Bowel sounds are well heard. There is no rebound guarding or rigidity. EXTREMITIES: Femorals are deep. Femorals are diminished. There is no femoral bruits. There is decreased leg pulses. There is mild pedal edema. FLAT HAMMERER: the patient is conscious awake alert oriented x3 with no focal deficits. PSYCHIATRIC: The patient judgment insight are intact. She does not appear to be agitated or anxious. Labs- All tests 24 hr 11/04/19 11/04/19 04:40 04:40 WBC 9.0 RBC 3.96 Hgb 12.4 Hct 36.6 MCV 93 MCH 31.3 MCHC 33.9 RDW 18.1 H Plt Count 312 Lymph % (Auto) 23.2 [place] % (Auto) 6.9 Eos % (Auto) 0.0 Baso % (Auto) 0.4 Absolute Neuts (auto) 6.2 Absolute Lymphs (auto) 2.1 Absolute Monos (auto) 0.6 Absolute Eos (auto) 0.0 Absolute Basos (auto) 0.0 Seg Neutrophils % 69.5 Sodium 139.6 Potassium 5.1 H Chloride 102 Carbon Dioxide 30 Anion Gap 8 BUN 47 H Creatinine 2.24 H Est GFR ( Amer) 28 L Est GFR (MDRD) Non-Af 23 L Glucose 105 Calcium 9.1 Total Bilirubin 0.5 Direct Bilirubin 0.5 H Neonat Total Bilirubin Not Reportable Neonat Direct Bilirubin Not Reportable Neonat Indirect Bili Not Reportable AST 32 ALT 211 H Alkaline Phosphatase 90 Total Protein 6.[address] 10/28/19 00:00 IMPRESSION: Dense diffuse bilateral airspace disease edema versus pneumonia versus ARDS Trace fluid in the fissures Massive cardiomegaly Chest X-Ray 10/28/19 11:13 IMPRESSION: Patchy opacification in the mid and lower lung zones with prominent and indistinct pulmonary vasculature and cardiomegaly. Constellation of findings likely represents pulmonary edema in the setting of congestive heart failure. A superimposed infectious process would be difficult to exclude. Recommend radiographic follow-up. Chest X-Ray 11/01/19 06:00 IMPRESSION: Improving CHF. IMPRESSION/RECOMMENDATION: 1. HYPOTENSION: Patient blood pressure is low but the patient is asymptomatic. We will start the patient on midodrine. 2. Acute on chronic respiratory failure. This is secondary to pneumonia, obstructive sleep apnea, and acute on chronic systolic heart failure: And bilateral patchy pneumonia. Continue BiPAP. 3. Acute on chronic systolic heart failure. Patient with LV ejection fraction of 25%. beta-blockers and Entresto. Continue diuretics. Continue Entresto 4. Bilateral patchy pneumonia continue antibiotics; 5. Dilated cardiomyopathy with severely reduced LV ejection fraction. 6. History of MRSA pneumonia: 7. History of amiodarone toxicity. Would recommend avoiding amiodarone 8. Chronic kidney disease: Stable at stage III. Watch patient's potassium on spironolactone. T 9. History of atrial fibrillation/flutter. At present most likely in sinus mechanism with paced ventricular rhythm recommend continue Eliquis. She has no history of TIA CVA 10. COPD. At present no evidence of acute exacerbation of COPD. 11. History of ventricular tachycardia, The patient has an AICD placed. If there is recurrence of ventricular tachycardia or major ventricular ectopic activity then would start the patient on small dose of sotalol. Would avoid amiodarone. 12. Coronary artery disease: History of [place] and history of coronary bypass graft surgery. No evidence of acute coronary syndrome/non-ST ST elevation [place] this admission. 13. Obstructive sleep apnea. Note patient has been noncompliant with CPAP. Most likely has significant pulmonary hypertension. 14. AICD placement: Note the patient's basal rate is around 60 bpm. We will after the weekend have the disability representative increase the patient basal heart rate to 75 bpm. Medication reviewed. Medications adjusted. Medical regimen and management plan discussed and discussed with attending provider. Medical decision making is high complexity. 40 minutes spent as patient more than 50% time spent in direct patient care. Will follow.
--- NOTE | 2019-11-04 13:53 | PDOC PROGRESS REPORT ---
Subjective Progress Note for:: 11/04/19 Subjective:: FRANKI DEL ROSARIO, 48-year-old female past medical history of coronary artery disease CABG in 2006, CHF with LVEF of 20 to 25%, atrial fibrillation, ICD and pacemaker placement COPD CKD stage III GERD depression morbid obesity, admitted on October 27 due to shortness of breath. Has x-ray showed pulmonary edema with possible superimposed infection. Pressure noted to be high in the ED and she was initially started on nitroglycerin drip. BNP 28,000 which is around her baseline, creatinine 2.05 baseline of around 1.5. Cardiology was consulted she was started on Lasix 20 mg IV daily home medications Entresto and metoprolol were continued. She was put on BIPAP for oxygen support. D3 hospital stay 10/30/19: She was seen and examined at bed side. Complains of pain all over, her home pain medications has been resumed. On bipap. Denies any chest pain, SOB, palpitations. D4 hospital stay 10/31/19: She was seen and examined at bedside. Reports improvement in terms of breathing. Afebrile, good appetite. Again requesting morphine dose. She is currently on her home pain medications. According to the nurse, she still desaturates when taken off the BIPAP. Oral lasix dose resumed, aldactone 12.5 mg daily was added for HF. D5 hospital stay 11/01/19: she was seen and examined at bedside. Reports chronic pain all over. Otherwise, she reports that her breathing is much better. She remains on BiPAP most days, at home she uses 4 L of nasal cannula. She was started on Aldactone yesterday 12.5 once a day. Blood pressure noted to be low this morning 85/50. I held the Aldactone and stop the Imdur, hopefully this will help with her blood pressure. According to the patient she has a BiPAP however she does not know how to use it, plan is to have discharge planning reach out to company that issue the machine to that they can come in her house and teach her how to use it. D6 hospital stay 11/02/19: She was seen and examined at bedside. Denied chest pain, SOB. Breathing improved. Imdur dose and aldactone D7 hospital stay 11/03/19: Seen and examined at bedside. She reports that she is ready to go home. Reports improvement of pain since resuming her home dose of percocet. BP still marginal this morning but she denies dizziness, chest pain, SOB. D8 hospital stay. She continues to have low BP, aymptomatic. She complains of pain all over despite increasing her mediation back to her home dose. Metoprolol decreased, aldactone and imdur stopped. Midodrine started by Dr. Ragsdale. Dr. Allen consulted for COPD and plans to do PFT on Tue. Creatinine uptrending. lasix vacation for 1 day tomorrow then will resume on Tuesday. Reason For Visit: RESPIRATORY FAILURE WITH HYPOXIA AND HYPERCAPNIA Physical Exam Vital Signs: Temp Pulse Resp BP Pulse Ox 97.7 F 60 14 98/78 L 97 11/04/19 07:55 11/04/19 07:59 11/04/19 07:59 11/04/19 07:55 11/04/19 07:59 Intake & Output 11/03/19 11/04/19 11/05/19 06:59 06:59 06:59 Intake Total 500 1424 Output Total 1 1800 Balance 499 -376 Weight 110.2 kg 109.9 kg General appearance: PRESENT: no acute distress, cooperative Head exam: PRESENT: atraumatic, normocephalic Eye exam: PRESENT: EOMI, PERRLA Mouth exam: PRESENT: moist Neck exam: PRESENT: full ROM. ABSENT: JVD Respiratory exam: PRESENT: clear to auscultation renu, symmetrical, unlabored Cardiovascular exam: PRESENT: RRR, +S1, +S2 GI/Abdominal exam: PRESENT: normal bowel sounds, soft. ABSENT: rebound, tenderness Extremities exam: PRESENT: +1 edema Musculoskeletal exam: PRESENT: full ROM Neurological exam: PRESENT: alert, awake, oriented to person, oriented to place, oriented to time Skin exam: PRESENT: normal color Results Laboratory Results: 11/04/19 04:40 11/04/19 04:40 11/04/19 11/04/19 04:40 04:40 WBC 9.0 RBC 3.96 Hgb 12.4 Hct 36.6 MCV 93 MCH 31.3 MCHC 33.9 RDW 18.1 H Plt Count 312 Seg Neutrophils % 69.5 Sodium 139.6 Potassium 5.1 H Chloride 102 Carbon Dioxide 30 Anion Gap 8 BUN 47 H Creatinine 2.24 H Est GFR ( Amer) 28 L Glucose 105 Calcium 9.1 Total Bilirubin 0.5 AST 32 Alkaline Phosphatase 90 Total Protein 6.8 Albumin 3.9 10/28/19 13:01 Troponin I 0.090 NT-Pro-B Natriuret Pep 26417 H Impressions: Chest CT 10/28/19 00:00 IMPRESSION: Dense diffuse bilateral airspace disease edema versus pneumonia versus ARDS Trace fluid in the fissures Massive cardiomegaly Chest X-Ray 11/01/19 06:00 IMPRESSION: Improving CHF. Assessment and Plan - Diagnosis (1) Acute on chronic systolic (congestive) heart failure Is this a current diagnosis for this admission?: Yes Plan: - admitted due to SOB - CXR +ve pulmonary edema - BNP 28,000. Last admission [id number] which is around her baseline - no recent echo. Will hold repeating for now - aldactone, imdur stopped - metoprolol decreased to 25 - continue Sacubitril-Valsartan - has ICD/pacemaker already - wean off bipap - Dr. Ragsdale following - daily weights 110 kg to 108 - strict IO (2) COPD (chronic obstructive pulmonary disease) Qualifiers: COPD type: COPD with acute exacerbation Qualified Code(s): J44.1 - Chronic obstructive pulmonary disease with (acute) exacerbation Is this a current diagnosis for this admission?: Yes Plan: - improved SOB. - Hx MRSA in sputum. - blood culture negative x 2 - Sputum culture growing gram-positive cocci in clusters - on scheduled and as needed nebulizer treatments. - completed steroids - continue Mucinex twice daily. - continue Bactrim DS twice daily D6 for Pneumonia - repeat CXR showed improving aeration - Dr. Allen consulted - continue o2 support - Pulmonary toilet is encouraged with incentive spirometer, flutter valve, and early ambulation. (3) Acute respiratory failure with hypoxia and hypercapnia Is this a current diagnosis for this admission?: Yes Plan: Improved. Chest x-ray shows patchy infiltrates; pulmonary edema with possible underlying i nfectious process. Recommends follow-up imaging. - CT chest dense diffuse bilateral airspace disease edema versus pneumonia versus ARDS, cardiomegaly, is fluid in the fissures - COVID-19 negative - continue o2 support BIPAP PRN - Dr. Allen consulted. Plan for PFT Tue (4) Acute renal failure superimposed on chronic kidney disease Qualifiers: Acute renal failure type: unspecified Chronic kidney disease stage: stage 3 (moderate) Qualified Code(s): N17.9 - Acute kidney failure, unspecified; N18.3 - Chronic kidney disease, stage 3 (moderate) Is this a current diagnosis for this admission?: Yes Plan: -Creatinine 2.05-> 1.91>2.18>1.65>1.58>2.24; up from baseline of 1.50. - will hold the dose tomorrow and resume on Tue - aldactone held - strict IO -Avoid nephrotoxic medications. -daily BMP (5) Atrial fibrillation Qualifiers: Atrial fibrillation type: unspecified Qualified Code(s): I48.91 - Unspecified atrial fibrillation Is this a current diagnosis for this admission?: Yes Plan: - patient has a pacemaker and ICD - Rate controlled on metoprolol - eliquis for AC (6) CAD (coronary artery disease) Qualifiers: Coronary Disease-Associated Artery/Lesion type: bypass graft [place] vs. transplanted heart: [place] heart Associated angina: with unspecified angina Qualified Code(s): I25.709 - Atherosclerosis of coronary artery bypass graft(s), unspecified, with unspecified angina pectoris Is this a current diagnosis for this admission?: Yes Plan: - no chest pain - trop 0.090 - continue aspirin, metoprolol, entresto, statin (7) Hypertension Qualifiers: Hypertension type: essential hypertension Qualified Code(s): I10 - Essential (primary) hypertension Is this a current diagnosis for this admission?: Yes Plan: - currently hypotensive - started on midodrine - will montior BP. I have already decresed her metoprol dose, stopped imdur and aldactone -no signs of fluid overload so she rojas snot need dobutamine drip - Dr. Ragsdale on board (8) RUBIN (obstructive sleep apnea) Is this a current diagnosis for this admission?: Yes Plan: BiPAP nightly and PRN (9) Morbid obesity Is this a current diagnosis for this admission?: Yes - Time Time Spent with patient: 25-34 minutes Medications reviewed and adjusted accordingly: Yes Anticipated Discharge Disposition: Home, Self Care Anticipated Discharge Timeframe: To be determined
[2019-11-04] MEDS: ONDANSETRON HCL INJ/PF 4 MG/2 ML SDV IV PRN (19:54)
[2019-11-04] MEDS: ATORVASTATIN CALCIUM 80 MG TABLET PO SCH (22:04)
[2019-11-05] MEDS: IPRATROPIUM/ALBUTEROL 0.5-2.5 MG/3 ML AMPUL NEB SCH ×3 (00:53→16:28)
[2019-11-05] MEDS: ONDANSETRON HCL INJ/PF 4 MG/2 ML SDV IV PRN ×3 (00:58→19:30)
[2019-11-05] MEDS: OXYCODONE HCL IR 5 MG TABLET PO PRN ×3 (06:26→19:28)
[2019-11-05] MEDS: MIDODRINE HCL 5 MG TABLET PO SCH ×3 (06:26→22:23)
[2019-11-05] MEDS: OXYCODONE-ACETAMINOPHEN 5-325 MG TABLET PO PRN ×3 (06:26→19:28)
[2019-11-05] MEDS: ALPRAZOLAM 0.5 MG TABLET PO PRN (06:27)
[2019-11-05 07:23] LABS: ABSOLUTE BASOPHILS # (AUTO) 0.1 10^3/uL (0.0-0.2); ABSOLUTE LYMPHOCYTES (AUTO) 2.4 10^3/uL (0.5-4.7); ABSOLUTE MONOCYTES (AUTO) 0.5 10^3/uL (0.1-1.4); ABSOLUTE NEUT (AUTO) 5.5 10^3/uL (1.7-8.2); BASOPHILS % (AUTO) 0.7 % (0-2); EOSINOPHILS % (AUTO) 0.1 % (0-6); HEMATOCRIT 38.5 % (36.0-47.0); HEMOGLOBIN 12.7 g/dL (12.0-15.5); LYMPHOCYTES % (AUTO) 28.5 % (13-45); MEAN CORPUSCULAR HEMOGLOBIN 30.3 pg (27.0-33.4); MEAN CORPUSCULAR VOLUME 92 fl (80-97); PLATELET COUNT 289 10^3/uL (150-450); RED BLOOD COUNT 4.18 10^6/uL (3.72-5.28); RED CELL DISTRIBUTION WIDTH 17.9 % (11.5-14.0); SEGMENTED NEUTROPHILS % (AUTO) 64.7 % (42-78); TOTAL CELLS COUNTED % (AUTO) 100 %; WHITE BLOOD COUNT 8.5 10^3/uL (4.0-10.5)
[2019-11-05 08:28] LABS: ALBUMIN 3.8 g/dL (3.5-5.0); ALKALINE PHOSPHATASE 81 U/L (38-126); ASPARTATE AMINO TRANSFERASE 26 U/L (14-36); BILIRUBIN,DIRECT 0.5 mg/dL (0.0-0.4); BILIRUBIN,TOTAL 0.5 mg/dL (0.2-1.3); BLOOD UREA NITROGEN 47 mg/dL (7-20); CALCIUM 9.1 mg/dL (8.4-10.2); CARBON DIOXIDE 34 mmol/L (22-30); CHLORIDE 101 mmol/L (98-107); GLUCOSE 99 mg/dL (75-110); POTASSIUM 5.2 mmol/L (3.6-5.0); TOTAL PROTEIN 6.6 g/dL (6.3-8.2)
[2019-11-05 08:34] LABS: ANION GAP 4 (5-19)
[2019-11-05] MEDS: FAMOTIDINE 20 MG TABLET PO SCH ×2 (09:06→22:22)
[2019-11-05] MEDS: APIXABAN 2.5 MG TABLET PO SCH ×2 (09:06→22:22)
[2019-11-05] MEDS: BUSPIRONE HCL 10 MG TABLET PO SCH ×2 (09:06→22:22)
[2019-11-05] MEDS: DOCUSATE SODIUM 100 MG CAPSULE PO SCH (09:06)
[2019-11-05] MEDS: SULFAMETHOXAZOLE/TRIMETHOPRIM 800-160 MG TABLET PO SCH (09:06)
[2019-11-05] MEDS: ASPIRIN 81 MG TABLET, ENT COATED PO SCH (09:06)
[2019-11-05] MEDS: PREDNISONE 20 MG TABLET PO SCH (09:06)
[2019-11-05] MEDS: GUAIFENESIN 600 MG TABLET.SA PO SCH ×2 (09:06→22:22)
[2019-11-05] MEDS: PAROXETINE HCL 20 MG TABLET PO SCH (09:07)
[2019-11-05] MEDS ORDERED: LEVALBUTEROL HCL NEB 0.63 MG/3 ML AMPUL NEB PRN (12:01)
--- NOTE | 2019-11-05 12:01 | Progress Note ---
Provider Note Provider Note: CARDIOLOGY PROGRESS NOTE by Dr. Griselda Martin on 11/05/2019 SUBJECTIVE: Patient is better with the Midrin. Her beta-rip and Entresto has been restarted. Her Lasix is still being held. She has no anginal symptoms. There is no PND. Her orthopnea is much improved. There is no leg edema. There is no palpitations. There is no arrhythmias seen on the monitor. There is no firing of AICD PHYSICAL EXAMINATION: The patient morbidly obese but at present in no acute distress. Selected Entries 11/05/19 11/05/19 08:43 09:09 Temperature 97.6 F Temperature Axillary Source Pulse Rate 61 Respiratory 11 L Rate Blood Pressure 103/67 Blood Pressure 79 Mean BP Location Left Arm BP Position Supine O2 Sat by Pulse 97 Oximetry Fraction of 35 Inspired Oxygen (FIO2) Oxygen Delivery Bipap Method HEAD: Is atraumatic normocephalic. EYES: Pupils are equal round regular reactive to light. HEENT is negative. SKIN: There is no skin rashes or skin lesions. There is no particular ecchymosis. NECK: Is supple. There is mild JVD present. Carotids are equal there is no bruits. There is no lymphadenopathy. There is no goiter. There is no accessory muscle respiration use. Trachea central. LUNGS: . There is diminished air entry. On percussion there is hyperresonance. On palpation there is no chest wall tenderness, dry crackles at both bases, and also some fine rales of CHF. HEART: S1-S2 is heard. There is no S3 gallop. There is no S4 gallop. There is systolic murmur mitral regurgitation tricuspid regurgitation present. There is no aortic stenosis murmur. There is no aortic insufficiency murmur. There is no rub. ABDOMEN: Is obese. Nontender. There is no hepatosplenomegaly. Bowel sounds are well heard. There is no rebound guarding or rigidity. EXTREMITIES: Femorals are deep. Femorals are diminished. There is no femoral bruits. There is decreased leg pulses. There is mild pedal edema. ASSOCIATE PROFESSOR OF COMMUNICATION: the patient is conscious awake alert oriented x3 with no focal deficits. PSYCHIATRIC: The patient judgment insight are intact. She does not appear to be agitated or anxious. Labs- All tests 24 hr 11/05/19 11/05/19 06:15 07:30 WBC 8.5 RBC 4.18 Hgb 12.7 Hct 38.5 MCV 92 MCH 30.3 MCHC 33.0 RDW 17.9 H Plt Count 289 Lymph % (Auto) 28.5 Canyon % (Auto) 6.0 Eos % (Auto) 0.1 Baso % (Auto) 0.7 Absolute Neuts (auto) 5.5 Absolute Lymphs (auto) 2.4 Absolute Monos (auto) 0.5 Absolute Eos (auto) 0.0 Absolute Basos (auto) 0.1 Seg Neutrophils % 64.7 Sodium 138.9 Potassium 5.2 H Chloride 101 Carbon Dioxide 34 H Anion Gap 4 L BUN 47 H Creatinine 2.41 H Est GFR ( Amer) 26 L Est GFR (MDRD) Non-Af 22 L Glucose 99 Calcium 9.1 Total Bilirubin 0.5 Direct Bilirubin 0.5 H Neonat Total Bilirubin Not Reportable Neonat Direct Bilirubin Not Reportable Neonat Indirect Bili Not Reportable AST 26 ALT 152 H Alkaline Phosphatase 81 Total Protein 6.[address] 10/28/19 00:00 IMPRESSION: Dense diffuse bilateral airspace disease edema versus pneumonia versus ARDS Trace fluid in the fissures Massive cardiomegaly Chest X-Ray 10/28/19 11:13 IMPRESSION: Patchy opacification in the mid and lower lung zones with prominent and indistinct pulmonary vasculature and cardiomegaly. Constellation of findings likely represents pulmonary edema in the setting of congestive heart failure. A superimposed infectious process would be difficult to exclude. Recommend radiographic follow-up. Chest X-Ray 11/01/19 06:00 IMPRESSION: Improving CHF. MPRESSION/RECOMMENDATION: 1. HYPOTENSION: Patient blood pressure is low but the patient is asymptomatic. We will start the patient on midodrine. 2. Acute on chronic respiratory failure. This is secondary to pneumonia, ob structive sleep apnea, and acute on chronic systolic heart failure: And bilateral patchy pneumonia. Continue BiPAP. 3. Acute on chronic systolic heart failure. Patient with LV ejection fraction of 25%. beta-blockers and Entresto. Continue diuretics. Continue Entresto 4. Bilateral patchy pneumonia continue antibiotics; 5. Dilated cardiomyopathy with severely reduced LV ejection fraction. 6. History of MRSA pneumonia: 7. History of amiodarone toxicity. Would recommend avoiding amiodarone 8. Chronic kidney disease: Stable at stage III. The patient spironolactone has been discontinued. 9. History of atrial fibrillation/flutter. At present most likely in sinus mechanism with paced ventricular rhythm recommend continue Eliquis. She has no history of TIA CVA 10. COPD. At present no evidence of acute exacerbation of COPD. 11. History of ventricular tachycardia, The patient has an AICD placed. If there is recurrence of ventricular tachycardia or major ventricular ectopic ac tivity then would start the patient on small dose of sotalol. Would avoid amiodarone. 12. Coronary artery disease: History of [place] and history of coronary bypass graft surgery. No evidence of acute coronary syndrome/non-ST ST elevation [place] this admission. 13. Obstructive sleep apnea. Note patient has been noncompliant with CPAP. Most likely has significant pulmonary hypertension. 14. AICD placement: Note the patient's basal rate is around 60 bpm. We will after the weekend have the education courses sales representative increase the patient basal heart rate to 75 bpm. Medication reviewed. Medications adjusted. Medical regimen and management plan discussed and discussed with attending provider. Medical decision making is moderate complexity. 40 minutes spent as patient more than 50% time spent in direct patient care. Will follow.
--- NOTE | 2019-11-05 16:09 | PDOC PROGRESS REPORT ---
Subjective Progress Note for:: 11/05/19 Subjective:: FRANKI DEL ROSARIO, 48-year-old female past medical history of coronary artery disease CABG in 2006, CHF with LVEF of 20 to 25%, atrial fibrillation, ICD and pacemaker placement COPD CKD stage III GERD depression morbid obesity, admitted on October 27 due to shortness of breath. Has x-ray showed pulmonary edema with possible superimposed infection. Pressure noted to be high in the ED and she was initially started on nitroglycerin drip. BNP 28,000 which is around her baseline, creatinine 2.05 baseline of around 1.5. Cardiology was consulted she was started on Lasix 20 mg IV daily home medications Entresto and metoprolol were continued. She was put on BIPAP for oxygen support. D3 hospital stay 10/30/19: She was seen and examined at bed side. Complains of pain all over, her home pain medications has been resumed. On bipap. Denies any chest pain, SOB, palpitations. D4 hospital stay 10/31/19: She was seen and examined at bedside. Reports improvement in terms of breathing. Afebrile, good appetite. Again requesting morphine dose. She is currently on her home pain medications. According to the nurse, she still desaturates when taken off the BIPAP. Oral lasix dose resumed, aldactone 12.5 mg daily was added for HF. D5 hospital stay 11/01/19: she was seen and examined at bedside. Reports chronic pain all over. Otherwise, she reports that her breathing is much better. She remains on BiPAP most days, at home she uses 4 L of nasal cannula. She was started on Aldactone yesterday 12.5 once a day. Blood pressure noted to be low this morning 85/50. I held the Aldactone and stop the Imdur, hopefully this will help with her blood pressure. According to the patient she has a BiPAP however she does not know how to use it, plan is to have discharge planning reach out to company that issue the machine to that they can come in her house and teach her how to use it. D6 hospital stay 11/02/19: She was seen and examined at bedside. Denied chest pain, SOB. Breathing improved. Imdur dose and aldactone D7 hospital stay 11/03/19: Seen and examined at bedside. She reports that she is ready to go home. Reports improvement of pain since resuming her home dose of percocet. BP still marginal this morning but she denies dizziness, chest pain, SOB. D8 hospital stay. She continues to have low BP, asymptomatic. She complains of pain all over despite increasing her mediation back to her home dose. Metoprolol decreased, aldactone and imdur stopped. Midodrine started by Dr. Ragsdale. Dr. Allen consulted for COPD and plans to do PFT on Tue. Creatinine uptrending. lasix vacation for 1 day tomorrow then will resume on Tuesday if creatinine is better. D9 hospital stay 11/05/19. She was seen and examined at bedside. She denies any worsening dyspnea, chest pain. No fever, good appetite. She is able to tolerate being off the bipap for long periods of time. Dr. Ragsdale called Dr. Allen to see her and he would like a PFT to be done Tuesday to help set her up for Trilogy. She did not receive lasix today. Hopefully can be resumed tomorrow pending creatinine. BNP is down from 28,500 to 538 although her weight has not changed. clinically looks euvolemic now. Reason For Visit: RESPIRATORY FAILURE WITH HYPOXIA AND HYPERCAPNIA Physical Exam Vital Signs: Temp Pulse Resp BP Pulse Ox 97.6 F 60 16 103/67 98 11/05/19 10:00 11/05/19 14:00 11/05/19 09:09 11/05/19 08:43 11/05/19 09:09 Intake & Output 11/04/19 11/05/19 11/06/19 06:59 06:59 06:59 Intake Total 1424 1395 Output Total 1800 2800 Balance -376 -1405 Weight 109.9 kg 109.7 kg General appearance: PRESENT: no acute distress, cooperative Head exam: PRESENT: atraumatic, normocephalic Eye exam: PRESENT: EOMI, PERRLA Mouth exam: PRESENT: dry mucosa Neck exam: PRESENT: full ROM. ABSENT: JVD Respiratory exam: PRESENT: clear to auscultation renu, symmetrical, unlabored Cardiovascular exam: PRESENT: RRR, +S1 GI/Abdominal exam: PRESENT: normal bowel sounds, soft. ABSENT: tenderness Rectal exam: PRESENT: deferred Extremities exam: ABSENT: +1 edema Musculoskeletal exam: PRESENT: full ROM Neurological exam: PRESENT: alert, awake, oriented to person, oriented to place, oriented to time, oriented to situation Psychiatric exam: PRESENT: normal mood Skin exam: PRESENT: normal color Results Laboratory Results: 11/05/19 06:15 11/05/19 07:30 11/05/19 11/05/19 06:15 07:30 WBC 8.5 RBC 4.18 Hgb 12.7 Hct 38.5 MCV 92 MCH 30.3 MCHC 33.0 RDW 17.9 H Plt Count 289 Seg Neutrophils % 64.7 Sodium 138.9 Potassium 5.2 H Chloride 101 Carbon Dioxide 34 H Anion Gap 4 L BUN 47 H Creatinine 2.41 H Est GFR ( Amer) 26 L Glucose 99 Calcium 9.1 Total Bilirubin 0.5 AST 26 Alkaline Phosphatase 81 Total Protein 6.6 Albumin 3.8 10/28/19 11/04/19 13:01 04:40 Troponin I 0.090 NT-Pro-B Natriuret Pep 86763 H 538 H Impressions: Chest CT 10/28/19 00:00 IMPRESSION: Dense diffuse bilateral airspace disease edema versus pneumonia versus ARDS Trace fluid in the fissures Massive cardiomegaly Chest X-Ray 11/01/19 06:00 IMPRESSION: Improving CHF. Assessment and Plan - Diagnosis (1) Acute on chronic systolic (congestive) heart failure Is this a current diagnosis for this admission?: Yes Plan: - admitted due to SOB - CXR +ve pulmonary edema - BNP 28,000>538. - no recent echo. Will hold repeating for now - aldactone, imdur stopped - metoprolol decreased to 25 - continue Sacubitril-Valsartan - has ICD/pacemaker already - wean off bipap - Dr. Ragsdale following. -She can go home once Dr. Allen has seen her. Lasix home dose need to be resumed prior to discharge. She has been hypertensive for about 2 days which has improved with midodrine. Need to touch base with Dr. Ragsdale regarding continuing midodrine at home after discharge - daily weights 110 kg to 108 - strict IO (2) COPD (chronic obstructive pulmonary disease) Qualifiers: COPD type: COPD with acute exacerbation Qualified Code(s): J44.1 - Chronic obstructive pulmonary disease with (acute) exacerbation Is this a current diagnosis for this admission?: Yes Plan: - improved SOB. - Hx MRSA in sputum. - blood culture negative x 2 - Sputum culture growing gram-positive cocci in clusters - on scheduled and as needed nebulizer treatments. - completed steroids - continue Mucinex twice daily. - continue Bactrim DS completed 7 days - repeat CXR showed improving aeration - Dr. Allen consulted. She should be able to go home once she has she has undergone PFT. - continue o2 support - Pulmonary toilet is encouraged with incentive spirometer, flutter valve, and early ambulation. (3) Acute respiratory failure with hypoxia and hypercapnia Is this a current diagnosis for this admission?: Yes (4) Acute renal failure superimposed on chronic kidney disease Qualifiers: Acute renal failure type: unspecified Chronic kidney disease stage: stage 3 (moderate) Qualified Code(s): N17.9 - Acute kidney failure, unspecified; N18.3 - Chronic kidney disease, stage 3 (moderate) Is this a current diagnosis for this admission?: Yes Plan: -Creatinine 2.05-> 1.91>2.18>1.65>1.58>2.24; up from baseline of 1.50. - will hold the dose tomorrow and resume on Tue - aldactone held - strict IO -Avoid nephrotoxic medications. -daily BMP (5) Atrial fibrillation Qualifiers: Atrial fibrillation type: unspecified Qualified Code(s): I48.91 - Unspecified atrial fibrillation Is this a current diagnosis for this admission?: Yes Plan: - patient has a pacemaker and ICD - Rate controlled on metoprolol - eliquis for AC (6) CAD (coronary artery disease) Qualifiers: Coronary Disease-Associated Artery/Lesion type: bypass graft [place] vs. transplanted heart: three affiliated heart Associated angina: with unspecified angina Qualified Code(s): I25.709 - Atherosclerosis of coronary artery bypass graft(s), unspecified, with unspecified angina pectoris Is this a current diagnosis for this admission?: Yes Plan: - no chest pain - trop 0.090 - continue aspirin, metoprolol, entresto, statin (7) Hypertension Qualifiers: Hypertension type: essential hypertension Qualified Code(s): I10 - Essential (primary) hypertension Is this a current diagnosis for this admission?: Yes Plan: - currently hypotensive - started on midodrine - will montior BP. I have already decresed her metoprol dose, stopped imdur and aldactone -no signs of fluid overload so she does not need dobutamine drip - Dr. Ragsdale on board (8) RUBIN (obstructive sleep apnea) Is this a current diagnosis for this admission?: Yes Plan: BiPAP nightly and PRN (9) Morbid obesity Is this a current diagnosis for this admission?: Yes Plan: - lifestyle modification advised - cardiac diet - Time Time Spent with patient: 25-34 minutes Anticipated Discharge Disposition: Home, Self Care Anticipated Discharge Timeframe: to be determined
[2019-11-05] MEDS: ATORVASTATIN CALCIUM 80 MG TABLET PO SCH (22:22)
[2019-11-06] MEDS: OXYCODONE HCL IR 5 MG TABLET PO PRN ×2 (01:25→07:39)
[2019-11-06] MEDS: ALPRAZOLAM 0.5 MG TABLET PO PRN ×3 (01:26→14:52)
[2019-11-06] MEDS: OXYCODONE-ACETAMINOPHEN 5-325 MG TABLET PO PRN ×2 (01:26→07:39)
[2019-11-06] MEDS: IPRATROPIUM/ALBUTEROL 0.5-2.5 MG/3 ML AMPUL NEB SCH ×3 (01:46→16:51)
[2019-11-06 05:13] LABS: ABSOLUTE LYMPHOCYTES (AUTO) 1.7 10^3/uL (0.5-4.7); ABSOLUTE MONOCYTES (AUTO) 0.6 10^3/uL (0.1-1.4); ABSOLUTE NEUT (AUTO) 5.7 10^3/uL (1.7-8.2); BASOPHILS % (AUTO) 0.3 % (0-2); HEMATOCRIT 36.1 % (36.0-47.0); HEMOGLOBIN 12.2 g/dL (12.0-15.5); LYMPHOCYTES % (AUTO) 20.9 % (13-45); MEAN CORPUSCULAR HEMOGLOBIN 31.3 pg (27.0-33.4); MEAN CORPUSCULAR HGB CONC 33.8 g/dL (32.0-36.0); MEAN CORPUSCULAR VOLUME 93 fl (80-97); MONOCYTES % (AUTO) 7.4 % (3-13); PLATELET COUNT 296 10^3/uL (150-450); RED BLOOD COUNT 3.89 10^6/uL (3.72-5.28); SEGMENTED NEUTROPHILS % (AUTO) 71.4 % (42-78); TOTAL CELLS COUNTED % (AUTO) 100 %; WHITE BLOOD COUNT 7.9 10^3/uL (4.0-10.5)
[2019-11-06 05:37] LABS: ALKALINE PHOSPHATASE 92 U/L (38-126); ANION GAP 10 (5-19); ASPARTATE AMINO TRANSFERASE 32 U/L (14-36); BILIRUBIN,DIRECT 0.5 mg/dL (0.0-0.4); BILIRUBIN,TOTAL 0.7 mg/dL (0.2-1.3); BLOOD UREA NITROGEN 52 mg/dL (7-20); CALCIUM 9.1 mg/dL (8.4-10.2); CARBON DIOXIDE 26 mmol/L (22-30); CHLORIDE 102 mmol/L (98-107); GLUCOSE 106 mg/dL (75-110); POTASSIUM 5.2 mmol/L (3.6-5.0); TOTAL PROTEIN 6.8 g/dL (6.3-8.2)
[2019-11-06] MEDS: MIDODRINE HCL 5 MG TABLET PO SCH ×2 (07:38→14:50)
[2019-11-06] MEDS: ISOSORBIDE MONONITRATE 30 MG TAB.ER.24H PO SCH (10:16)
[2019-11-06] MEDS: PAROXETINE HCL 20 MG TABLET PO SCH (10:19)
[2019-11-06] MEDS: DOCUSATE SODIUM 100 MG CAPSULE PO SCH (10:19)
[2019-11-06] MEDS: GUAIFENESIN 600 MG TABLET.SA PO SCH (10:19)
[2019-11-06] MEDS: ASPIRIN 81 MG TABLET, ENT COATED PO SCH (10:19)
[2019-11-06] MEDS: FAMOTIDINE 20 MG TABLET PO SCH (10:19)
[2019-11-06] MEDS: BUSPIRONE HCL 10 MG TABLET PO SCH (10:20)
[2019-11-06] MEDS: APIXABAN 2.5 MG TABLET PO SCH (10:20)
--- NOTE | 2019-11-06 10:54 | PDOC CONSULTATION ---
Consultation Consult Date: 11/01/19 Attending physician:: Provider Consulted: ELAN BUCIO Consult reason:: Acute on chronic respiratory failure, RUBIN, CHF History of Present Illness Admission Date/PCP: 10/28/19 16:59 YI SANCHEZ DO History of Present Illness: FRANKI DEL ROSARIO is a 48 year old female admitted for acute respiratory failure she carries a diagnosis of severe congestive heart failure as well as obstructive sleep apnea morbid obesity and COPD. She denies fever chills admits to cough is subsequently resolved no hemoptysis PPD status negative dates unknown no history of chronic lung disease as a child or adolescent. She admits to posterior to passive smoke as a child as well as adults yourself smoked a pack a day for 30 years but no cigarettes recently. She has no pets no recent travel she has occasional tightness in her chest sleeps on 4 pillows frequent PND frequent nocturnal cough chronic edema as stated above history obstructive sleep apnea Past Medical History Cardiac Medical History: Reports: Atrial Fibrillation, Congestive Heart Failure, Coronary Artery Disease, Myocardial Infarction, Hyperlipidema, Hypertension Denies: DVT, Pulmonary Embolism Pulmonary Medical History: Reports: Bronchitis, Chronic Obstructive Pulmonary Disease (COPD), Intubation, Pneumonia, Respiratory Failure, Sleep Apnea Denies: Asthma EENT Medical History: Reports: None Neurological Medical History: Denies: Ischemic CVA, Seizures Endocrine Medical History: Reports: Obesity Denies: Diabetes Mellitus Type 1, Diabetes Mellitus Type 2, Hyperthyroidism, Hypothyroidism Renal/ Medical History: Reports: Chronic Kidney Disease GI Medical History: Reports: Gastroesophageal Reflux Disease, Hepatitis Denies: Cirrhosis, Crohn's Disease, Hiatal Hernia, Ulcerative Colitis Musculoskeltal Medical History: Reports: None Denies: Arthritis, Gout Skin Medical History: Reports: None Denies: Eczema, Psoriasis Psychiatric Medical History: Reports: Depression, General Anxiety Disorder Hematology: Reports: Anemia, Bleeding Tendencies - "On blood thinners" Infectious Medical History: Reports: Methicillin-Resistant Staph Aureus Past Surgical History Past Surgical History: Reports: Cardiac Catheterization - multiple, Section, Coronary Artery Bypass Graft - 2007, Coronary Stent - Multiple, Hysterectomy, Pacemaker - AICD, Tubal Ligation Denies: Mastectomy Social History Lives with: Family Smoking Status: Former Smoker Number of Years Smokin Last Time Smoked: 2 years ago Passive smoke exposure as: Both Frequency of Alcohol Use: Occasional Hx Recreational Drug Use: Yes Drugs: Marijuana Hx Prescription Drug Abuse: No Do you have pets?: No Have you had any respiratory illnesses as a child?: No Have you been exposed to any sick contacts recently?: No Have you had any recent respiratory illnesses?: No Have you travelled outside of [place] in the past 12 months?: No - Advance Directive Resuscitation Status: Full Code Family History Family History: CAD, CVA, DM, Hypertension, Malignancy, Other - Kidney disease Parental Family History Reviewed: Yes Children Family History Reviewed: Yes Sibling(s) Family History Reviewed.: Yes Medication/Allergy Home Medications: Alprazolam [Xanax 0.5 mg Tablet] 0.5 mg PO Q6HP PRN 02/08/19 Atorvastatin Calcium [Lipitor 80 mg Tablet] 80 mg PO QHS 02/08/19 Paroxetine HCl [Paxil 20 mg Tablet] 20 mg PO DAILY 02/08/19 Oxycodone HCl/Acetaminophen [Percocet 7.5-325 mg Tablet] 1 each PO Q6HP PRN 06/24/19 Apixaban [Eliquis 2.5 mg Tablet] 2.5 mg PO Q12 #0 tablet 07/03/19 Buspirone HCl [Buspar 10 mg Tablet] 10 mg PO Q12 #0 tablet 07/03/19 Famotidine [Pepcid 20 mg Tablet] 20 mg PO Q12 tablet 07/03/19 Aspirin [Ecotrin 81 mg EC Tablet] 81 mg PO DAILY 07/10/19 Isosorbide Mononitrate [Imdur 30 mg Tablet.er] 30 mg PO QAM 07/10/19 Amiodarone HCl [Cordarone 200 mg Tablet] 400 mg PO DAILY 10/29/19 Furosemide [Lasix 40 mg Tablet] 60 mg PO QAM 10/29/19 Melatonin [Melatonin 1 mg Tablet] 1 mg PO QHS 10/29/19 Metoprolol Succinate [Toprol Xl 25 mg Tab.sr] 50 mg PO Q12 10/29/19 Olopatadine HCl [Pazeo] 1 drop OU DAILY 10/29/19 Sacubitril/Valsartan [Entresto 49 mg/51 mg Tablet] 1 tab PO Q12 10/29/19 Allergies/Adverse Reactions: egg [Egg] Allergy (Verified 07/09/19 20:06) propoxyphene [From Darvocet-N] Allergy (Verified 07/09/19 20:06) amiodarone Adverse Reaction (Verified 07/09/19 20:06) Respiratory distress diphenhydramine HCl [From Benadryl] Adverse Reaction (Verified 07/09/19 20:06) chest pain, bigemeny rhythm Review of Systems All systems: reviewed and no additional remarkable complaints except as stated Physical Exam Vital Signs: Temp Pulse Resp BP Pulse Ox 98.2 F 60 16 90/56 L 96 11/01/19 15:11 11/01/19 15:11 11/01/19 15:11 11/01/19 15:11 11/01/19 15:11 Intake & Output 10/31/19 11/01/19 11/02/19 06:59 06:59 06:59 Intake Total 1304 930 Output Total 1600 Balance -296 930 Weight 108.3 kg 108.6 kg General appearance: PRESENT: no acute distress, cooperative, disheveled, morbidly obese, well-developed, well-nourished Head exam: PRESENT: atraumatic, normocephalic Eye exam: PRESENT: conjunctiva pale, EOMI. ABSENT: nystagmus, periorbital swelling, other Mouth exam: PRESENT: neck supple, tongue midline Neck exam: ABSENT: carotid bruit, full ROM, JVD, lymphadenopathy, meningismus, tenderness, thyromegaly, tracheal deviation, tracheostomy, other Respiratory exam: PRESENT: decreased breath sounds, prolonged expiratory phas, rhonchi, symmetrical, unlabored. ABSENT: retraction, stridor, tachypnea Cardiovascular exam: PRESENT: RRR, +S1, +S2 Pulses: PRESENT: normal radial pulses GI/Abdominal exam: PRESENT: soft. ABSENT: distended, guarding, mass, rebound, other Extremities exam: ABSENT: calf tenderness, clubbing, joint swelling Musculoskeletal exam: ABSENT: deformity, dislocation Neurological exam: PRESENT: alert, awake Psychiatric exam: PRESENT: appropriate affect Skin exam: PRESENT: dry, warm Results Laboratory Results: 11/01/19 05:36 11/01/19 05:36 11/01/19 11/01/19 05:36 05:36 WBC 7.0 RBC 3.56 L Hgb 10.9 L Hct 33.0 L MCV 93 MCH 30.5 MCHC 32.8 RDW 17.9 H Plt Count 266 Seg Neutrophils % 73.6 Sodium 142.0 Potassium 4.9 Chloride 106 Carbon Dioxide 31 H Anion Gap 5 BUN 28 H Creatinine 1.58 H Est GFR ( Amer) 42 L Glucose 103 Calcium 9.4 Total Bilirubin 0.6 AST 201 H Alkaline Phosphatase 110 Total Protein 6.9 Albumin 3.9 10/29/19 13:45 Sputum Gram Stain - Final 10/29/19 13:45 Sputum Sputum Culture - Final Mrsa (Meth Resis Staph Aureus) Normal Evelyn 10/28/19 13:01 Troponin I 0.090 NT-Pro-B Natriuret Pep 48023 H Impressions: Chest CT 10/28/19 00:00 IMPRESSION: Dense diffuse bilateral airspace disease edema versus pneumonia versus ARDS Trace fluid in the fissures Massive cardiomegaly Chest X-Ray 11/01/19 06:00 IMPRESSION: Improving CHF. Assessment & Plan - Diagnosis (1) CHF exacerbation Qualifiers: Heart failure type: systolic Qualified Code(s): I50.23 - Acute on chronic systolic (congestive) heart failure Is this a current diagnosis for this admission?: Yes Plan: Last echo was 2018 at that time the echo was pretty poor as per cardiology (2) Acute and chronic respiratory failure with hypoxia Is this a current diagnosis for this admission?: Yes Plan: Think patient would benefit from trilogy currently her ABG does not completely qualify for the sub-must wait for respiratory therapy to come and do bedside spirometry - Time Time Spent with patient: 50 minutes Time Spent: 30 to 50 Minutes
--- NOTE | 2019-11-06 14:51 | PDOC PROGRESS REPORT ---
Subjective Progress Note for:: 11/06/19 Subjective:: unchanged Reason For Visit: RESPIRATORY FAILURE WITH HYPOXIA AND HYPERCAPNIA Physical Exam Vital Signs: Temp Pulse Resp BP Pulse Ox 97.9 F 60 16 121/61 100 11/06/19 11:11 11/06/19 11:11 11/06/19 11:11 11/06/19 11:11 11/06/19 11:11 Intake & Output 11/05/19 11/06/19 11/07/19 06:59 06:59 06:59 Intake Total 1395 1804 120 Output Total 2800 1400 800 Balance -1405 404 -680 Weight 109.7 kg 109.8 kg General appearance: PRESENT: no acute distress, cooperative, disheveled, morbidly obese Head exam: PRESENT: atraumatic, normocephalic Eye exam: PRESENT: conjunctiva pale, EOMI. ABSENT: nystagmus, periorbital swelling Mouth exam: PRESENT: moist, neck supple, tongue midline Respiratory exam: PRESENT: decreased breath sounds, prolonged expiratory phas, rhonchi, symmetrical, unlabored. ABSENT: retraction, stridor, tachypnea Cardiovascular exam: PRESENT: RRR, +S1, +S2 Pulses: PRESENT: normal radial pulses GI/Abdominal exam: PRESENT: soft. ABSENT: distended, guarding, mass, rebound, tenderness Extremities exam: ABSENT: calf tenderness, clubbing, joint swelling, tenderness Musculoskeletal exam: ABSENT: deformity, dislocation Neurological exam: PRESENT: alert, awake Psychiatric exam: PRESENT: appropriate affect Skin exam: PRESENT: dry, warm Results Laboratory Results: 11/06/19 04:28 11/06/19 04:28 11/06/19 11/06/19 04:28 04:28 WBC 7.9 RBC 3.89 Hgb 12.2 Hct 36.1 MCV 93 MCH 31.3 MCHC 33.8 RDW 18.0 H Plt Count 296 Seg Neutrophils % 71.4 Sodium 138.3 Potassium 5.2 H Chloride 102 Carbon Dioxide 26 Anion Gap 10 BUN 52 H Creatinine 2.36 H Est GFR ( Amer) 27 L Glucose 106 Calcium 9.1 Total Bilirubin 0.7 AST 32 Alkaline Phosphatase 92 Total Protein 6.8 Albumin 4.0 10/28/19 11/04/19 13:01 04:40 Troponin I 0.090 NT-Pro-B Natriuret Pep 33118 H 538 H Impressions: Chest CT 10/28/19 00:00 IMPRESSION: Dense diffuse bilateral airspace disease edema versus pneumonia versus ARDS Trace fluid in the fissures Massive cardiomegaly Chest X-Ray 11/01/19 06:00 IMPRESSION: Improving CHF. Assessment & Plan - Diagnosis (1) CHF exacerbation Qualifiers: Heart failure type: systolic Qualified Code(s): I50.23 - Acute on chronic systolic (congestive) heart failure Is this a current diagnosis for this admission?: Yes Plan: Last echo was 2018 at that time the echo was pretty poor as per cardiology (2) Acute and chronic respiratory failure with hypoxia Is this a current diagnosis for this admission?: Yes Plan: Spirometry did not demonstrate need for trilogy will see if alternative exists. The above patient has failed BiPAP with a patent airway. This patient would benefit from noninvasive mechanical ventilation via the trilogy AVAPS/AE and faster responding AVAPS rates. The trilogy is able to provide a target tidal volume and also adjusting the EPAP pressures to maintain a patent airway as well as an oral backup rate this machine will help improve PaCO2 levels. The severity of the patient's condition will lead to future hospitalizations and readmissions as well as life-threatening situations without the use of this device day and night. Trilogy home vent needed for hypercapnic respiratory failure. [facility] or [facility] to follow for trilogy set up. Patient has morbid obesity with hypoventilation syndrome patient has tried and failed BiPAP and has been airway able to clear secretions. - Time Time Spent with patient: 20 min Time Spent with patient: 15-24 minutes Level of Care: IMCU
--- NOTE | 2019-11-06 17:19 | PDOC DISCHARGE SUMMARY ---
Impression - Admit/DC Date/PCP Admission Date/Primary Care Provider: 10/28/19 16:59 YI FLORENCEUMATE, DO Discharge Date: 11/06/19 - Assessment Summary: Impression - Admit/DC Date/PCP Admission Date/Primary Care Provider: 10/28/19 16:59 YI SANCHEZ, Discharge Date: 11/06/19 - Assessment Summary: (1) Acute on chronic systolic (congestive) heart failure Is this a current diagnosis for this admission?: Yes Plan: - admitted due to SOB - CXR +ve pulmonary edema - BNP 28,000>538. - no recent echo. Will hold repeating for now - aldactone, imdur stopped - metoprolol decreased to 25 - continue Sacubitril-Valsartan - has ICD/pacemaker already - wean off bipap - Dr. Ragsdale following. -She can go home once Dr. Allen has seen her. Lasix home dose need to be resumed prior to discharge. She has been hypertensive for about 2 days which has improved with midodrine. Need to touch base with Dr. Ragsdale regarding continuing midodrine at home after discharge - daily weights 110 kg to 108 - strict IO 11/06/2019-patient admitted with acute on chronic congestive heart failure advised to continue Entresto, to hold Aldactone, advised to follow-up with Dr. Martin in the office. Patient is not on Midodrin at this time. (2) COPD (chronic obstructive pulmonary disease) Qualifiers: COPD type: COPD with acute exacerbation Qualified Code(s): J44.1 - Chronic obstructive pulmonary disease with (acute) exacerbation Is this a current diagnosis for this admission?: Yes Plan: - improved SOB. - Hx MRSA in sputum. - blood culture negative x 2 - Sputum culture growing gram-positive cocci in clusters - on scheduled and as needed nebulizer treatments. - completed steroids - continue Mucinex twice daily. - continue Bactrim DS completed 7 days - repeat CXR showed improving aeration - Dr. Allen consulted. She should be able to go home once she has she has undergone PFT. - continue o2 support - Pulmonary toilet is encouraged with incentive spirometer, flutter valve, and early ambulation. 11/06/2019-patient did not qualify for trilogy at this time. Spoke to Dr. Allen he is going to follow the patient in the office for further testing. (3) Acute respiratory failure with hypoxia and hypercapnia Is this a current diagnosis for this admission?: Yes (4) Acute renal failure superimposed on chronic kidney disease Qualifiers: Acute renal failure type: unspecified Chronic kidney disease stage: stage 3 (moderate) Qualified Code(s): N17.9 - Acute kidney failure, unspecified; N18.3 - Chronic kidney disease, stage 3 (moderate) Is this a current diagnosis for this admission?: Yes Plan: -Creatinine 2.05-> 1.91>2.18>1.65>1.58>2.24; up from baseline of 1.50. - will hold the dose tomorrow and resume on Tue - aldactone held - strict IO -Avoid nephrotoxic medications. -daily BMP 11/06/2019-Aldactone is on hold. Latest creatinine is 2.36. (5) Atrial fibrillation Qualifiers: Atrial fibrillation type: unspecified Qualified Code(s): I48.91 - Unspecified atrial fibrillation Is this a current diagnosis for this admission?: Yes Plan: - patient has a pacemaker and ICD - Rate controlled on metoprolol - eliquis for AC 11/06/2019-patient is aware to continue Eliquis at home. Metoprolol is on hold because of the beta-rip. (6) CAD (coronary artery disease) Qualifiers: Coronary Disease-Associated Artery/Lesion type: bypass graft Andre[place] vs. transplanted heart: [place] heart Associated angina: with unspecified angina Qualified Code(s): I25.709 - Atherosclerosis of coronary artery bypass graft(s), unspecified, with unspecified angina pectoris Is this a current diagnosis for this admission?: Yes Plan: - no chest pain - trop 0.090 - continue aspirin, metoprolol, entresto, statin (7) Hypertension Qualifiers: Hypertension type: essential hypertension Qualified Code(s): I10 - Essential (primary) hypertension Is this a current diagnosis for this admission?: Yes Plan: - currently hypotensive - started on midodrine - will montior BP. I have already decresed her metoprol dose, stopped imdur and aldactone -no signs of fluid overload so she does not need dobutamine drip - Dr. Ragsdale on board 11/06/2019-blood pressure today's 104/50. Stable. (8) RUBIN (obstructive sleep apnea) Is this a current diagnosis for this admission?: Yes Plan: BiPAP nightly and PRN 11/06/2019-patient advised to continue BiPAP at home. (9) Morbid obesity Is this a current diagnosis for this admission?: Yes Plan: - lifestyle modification advised - Additional Information Resuscitation Status: Full Code Discharge Diet: Cardiac Discharge Activity: Activity As Tolerated, Balance Activity w/Rest, Weigh Daily Referrals: YI SANCHEZ DO [Primary Care Provider] - 11/07/19 3:30 pm Prescriptions: Aspirin [Ecotrin 81 mg EC Tablet] 81 mg PO DAILY 30 Days #30 tabec Home Medications: Alprazolam [Xanax 0.5 mg Tablet] 0.5 mg PO Q6HP PRN 02/08/19 Atorvastatin Calcium [Lipitor 80 mg Tablet] 80 mg PO QHS 02/08/19 Paroxetine HCl [Paxil 20 mg Tablet] 20 mg PO DAILY 02/08/19 Oxycodone HCl/Acetaminophen [Percocet 7.5-325 mg Tablet] 1 each PO Q6HP PRN 06/24/19 Apixaban [Eliquis 2.5 mg Tablet] 2.5 mg PO Q12 #0 tablet 07/03/19 Buspirone HCl [Buspar 10 mg Tablet] 10 mg PO Q12 #0 tablet 07/03/19 Famotidine [Pepcid 20 mg Tablet] 20 mg PO Q12 tablet 07/03/19 Aspirin [Ecotrin 81 mg EC Tablet] 81 mg PO DAILY 07/10/19 Isosorbide Mononitrate [Imdur 30 mg Tablet.er] 30 mg PO QAM 07/10/19 Furosemide [Lasix 40 mg Tablet] 60 mg PO QAM 10/29/19 Melatonin [Melatonin 1 mg Tablet] 1 mg PO QHS 10/29/19 Metoprolol Succinate [Toprol Xl 25 mg Tab.sr] 50 mg PO Q12 10/29/19 Olopatadine HCl [Pazeo] 1 drop OU DAILY 10/29/19 Sacubitril/Valsartan [Entresto 49 mg/51 mg Tablet] 1 tab PO Q12 10/29/19 Aspirin [Ecotrin 81 mg EC Tablet] 81 mg PO DAILY 30 Days #30 tabec 11/06/19 Sacubitril/Valsartan [Entresto 49 mg/51 mg Tablet] 1 tab PO Q12 tablet 11/06/19 History of Present Illiness History of Present Illness: FRANKI DEL ROSARIO is a 48 year old female 48 year old female, well-known to our service, with a past medical history significant for CAD, CABG in 2006, subsequent artery stenting, CHF with LVEF of 20 to 25%, atrial fibrillation, AICD, COPD, CKD 3, GERD, depression, morbid obesity, RUBIN, and remote substance abuse who presented to the emergency department via EMS today with a complaint of dyspnea. Per ED provider, prior to arrival, patient received multiple albuterol nebulizer treatments and epinephrine for management of her dyspnea resulting in hypertensive urgency. After a monitoring period, it was determined that the patient's blood pressures remain elevated enough to warrant nitroglycerin drip. Further evaluation revealed Low-grade temperature (99.8), paced rhythm in the mid 60s, tachypnea (38) and hypoxia on room air. Of note, the last time I personally discharge this patient (approximately 7-8 months ago), the patient was discharged on supplemental oxygen and was attending pulmonary rehabilitation therapy. Laboratory evaluation revealed baseline anemia, chemistry showed mild BENNY (CR 2.05 today; baseline 1.5), mildly elevated LFTs (near her baseline), and an elevated proBNP to 28K (baseline). ABG revealed respiratory acidosis with hypercapnia. Chest x-ray showed pulmonary edema with a possible superimposed infectious process which would be difficult to exclude; recommend follow-up imaging. As mentioned, patient was provided nitroglycerin drip for Hypertensive management, morphine, Zofran, and BiPAP. She is referred to the hospitalist service for further evaluation management of the above-stated complaints and findings. Hospital Course Hospital Course: 48-year-old female past medical history of coronary artery disease CABG in 2006, CHF with LVEF of 20 to 25%, atrial fibrillation, ICD and pacemaker placement COPD CKD stage III GERD depression morbid obesity, admitted on October 27 due to shortness of breath. Has x-ray showed pulmonary edema with possible superimposed infection. Pressure noted to be high in the ED and she was initially started on nitroglycerin drip. BNP 28,000 which is around her baseline, creatinine 2.05 baseline of around 1.5. Cardiology was consulted she was started on Lasix 20 mg IV daily home medications Entresto and metoprolol were continued. She was put on BIPAP for oxygen support. D3 hospital stay 10/30/19: She was seen and examined at bed side. Complains of pain all over, her home pain medications has been resumed. On bipap. Denies any chest pain, SOB, palpitations. D4 hospital stay 10/31/19: She was seen and examined at bedside. Reports improvement in terms of breathing. Afebrile, good appetite. Again requesting morphine dose. She is currently on her home pain medications. According to the nurse, she still desaturates when taken off the BIPAP. Oral lasix dose resumed, aldactone 12.5 mg daily was added for HF. D5 hospital stay 11/01/19: she was seen and examined at bedside. Reports chronic pain all over. Otherwise, she reports that her breathing is much better. She remains on BiPAP most days, at home she uses 4 L of nasal cannula. She was started on Aldactone yesterday 12.5 once a day. Blood pressure noted to be low this morning 85/50. I held the Aldactone and stop the Imdur, hopefully this will help with her blood pressure. According to the patient she has a BiPAP however she does not know how to use it, plan is to have discharge planning reach out to company that issue the machine to that they can come in her house and teach her how to use it. D6 hospital stay 11/02/19: She was seen and examined at bedside. Denied chest pain, SOB. Breathing improved. Imdur dose and aldactone D7 hospital stay 11/03/19: Seen and examined at bedside. She reports that she is ready to go home. Reports improvement of pain since resuming her home dose of percocet. BP still marginal this morning but she denies dizziness, chest pain, SOB. D8 hospital stay. She continues to have low BP, asymptomatic. She complains of pain all over despite increasing her mediation back to her home dose. Metoprolol decreased, aldactone and imdur stopped. Midodrine started by Dr. Ragsdale. Dr. Allen consulted for COPD and plans to do PFT on Tue. Creatinine uptrending. lasix vacation for 1 day tomorrow then will resume on Tuesday if creatinine is better. D9 hospital stay 11/05/19. She was seen and examined at bedside. She denies any worsening dyspnea, chest pain. No fever, good appetite. She is able to tolerate being off the bipap for long periods of time. Dr. Ragsdale called Dr. Allen to see her and he would like a PFT to be done Tuesday to help set her up for Trilogy. She did not receive lasix today. Hopefully can be resumed tomorrow pending creatinine. BNP is down from 28,500 to 538 although her weight has not changed. clinically looks euvolemic now. 11/06/2019-patient was comfortably in the bed communicating well. Expressing desire to go home today. I discussed the plan of care with Dr. Allen after the pulmonary function test was done he thinks she does not qualify for trilogy at this time. But he wants her to follow-up in the office in 1 week time for further testing. Physical Exam Vital Signs: Temp Pulse Resp BP Pulse Ox 97.9 F 60 16 121/61 100 11/06/19 11:11 11/06/19 11:11 11/06/19 11:11 11/06/19 11:11 11/06/19 11:11 Intake & Output 11/05/19 11/06/19 11/07/19 06:59 06:59 06:59 Intake Total 1395 1804 120 Output Total 2800 1400 800 Balance -1405 404 -680 Weight 109.7 kg 109.8 kg General appearance: PRESENT: no acute distress, morbidly obese Head exam: PRESENT: atraumatic Eye exam: PRESENT: PERRLA Mouth exam: PRESENT: moist, tongue midline Teeth exam: PRESENT: poor dentation Neck exam: ABSENT: carotid bruit, JVD, lymphadenopathy, thyromegaly Respiratory exam: PRESENT: decreased breath sounds Cardiovascular exam: PRESENT: RRR. ABSENT: diastolic murmur, rubs, systolic murmur GI/Abdominal exam: PRESENT: normal bowel sounds, soft. ABSENT: distended, guarding, mass, organolmegaly, rebound, tenderness Rectal exam: PRESENT: deferred Extremities exam: PRESENT: full ROM. ABSENT: calf tenderness, clubbing, pedal edema Neurological exam: PRESENT: alert, awake, oriented to person, oriented to place, oriented to time, oriented to situation, CN II-XII grossly intact. ABSENT: motor sensory deficit Psychiatric exam: PRESENT: appropriate affect, normal mood. ABSENT: homicidal ideation, suicidal ideation Results Laboratory Results: WBC 7.9 10^3/uL (4.0-10.5) 11/06/19 04:28 RBC 3.89 10^6/uL (3.72-5.28) 11/06/19 04:28 Hgb 12.2 g/dL (12.0-15.5) 11/06/19 04:28 Hct 36.1 % (36.0-47.0) 11/06/19 04:28 MCV 93 fl (80-97) 11/06/19 04:28 MCH 31.3 pg (27.0-33.4) 11/06/19 04:28 MCHC 33.8 g/dL (32.0-36.0) 11/06/19 04:28 RDW 18.0 % (11.5-14.0) H 11/06/19 04:28 Plt Count 296 10^3/uL (150-450) 11/06/19 04:28 Lymph % (Auto) 20.9 % (13-45) 11/06/19 04:28 [place] % (Auto) 7.4 % (3-13) 11/06/19 04:28 Eos % (Auto) 0.0 % (0-6) 11/06/19 04:28 Baso % (Auto) 0.3 % (0-2) 11/06/19 04:28 Absolute Neuts (auto) 5.7 10^3/uL (1.7-8.2) 11/06/19 04:28 Absolute Lymphs (auto) 1.7 10^3/uL (0.5-4.7) 11/06/19 04:28 Absolute Monos (auto) 0.6 10^3/uL (0.1-1.4) 11/06/19 04:28 Absolute Eos (auto) 0.0 10^3/uL (0.0-0.6) 11/06/19 04:28 Absolute Basos (auto) 0.0 10^3/uL (0.0-0.2) 11/06/19 04:28 Seg Neutrophils % 71.4 % (42-78) 11/06/19 04:28 Carbonic Acid 1.43 mmol/L (1.05-1.35) H 10/28/19 18:30 HCO3/H2CO3 Ratio 15:1 10/28/19 18:30 ABG pH 7.30 (7.35-7.45) L 10/28/19 18:30 ABG pCO2 47.4 mmHg (35-45) H 10/28/19 18:30 ABG pO2 94.9 mmHg (80-100) 10/28/19 18:30 ABG HCO3 22.8 mmol/L (20-24) 10/28/19 18:30 ABG Total CO2 24.3 mmol/L (21-25) 10/28/19 18:30 ABG O2 Saturation 96.5 % (94-98) 10/28/19 18:30 ABG Base Excess -3.7 mmol/L 10/28/19 18:30 FiO2 65% 10/28/19 18:30 Sodium 138.3 mmol/L (137-145) 11/06/19 04:28 Potassium 5.2 mmol/L (3.6-5.0) H 11/06/19 04:28 Chloride 102 mmol/L (98-107) 11/06/19 04:28 Carbon Dioxide 26 mmol/L (22-30) 11/06/19 04:28 Anion Gap 10 (5-19) 11/06/19 04:28 BUN 52 mg/dL (7-20) H 11/06/19 04:28 Creatinine 2.36 mg/dL (0.52-1.25) H 11/06/19 04:28 Est GFR ( Amer) 27 (>60) L 11/06/19 04:28 Est GFR (MDRD) Non-Af 22 (>60) L 11/06/19 04:28 Glucose 106 mg/dL (75-110) 11/06/19 04:28 Calcium 9.1 mg/dL (8.4-10.2) 11/06/19 04:28 Magnesium 2.1 mg/dL (1.6-2.3) 10/29/19 04:55 Total Bilirubin 0.7 mg/dL (0.2-1.3) 11/06/19 04:28 Direct Bilirubin 0.5 mg/dL (0.0-0.4) H 11/06/19 04:28 Neonat Total Bilirubin Not Reportable 11/06/19 04:28 Neonat Direct Bilirubin Not Reportable 11/06/19 04:28 Neonat Indirect Bili Not Reportable 11/06/19 04:28 AST 32 U/L (14-36) 11/06/19 04:28 ALT 134 U/L (<35) H 11/06/19 04:28 Alkaline Phosphatase 92 U/L (38-126) 11/06/19 04:28 Troponin I 0.090 ng/mL 10/28/19 13:01 NT-Pro-B Natriuret Pep 538 pg/mL (<125) H 11/04/19 04:40 Total Protein 6.8 g/dL (6.3-8.2) 11/06/19 04:28 Albumin 4.0 g/dL (3.5-5.0) 11/06/19 04:28 Urine Color YELLOW 10/28/19 13:35 Urine Appearance SLIGHTLY-CLOUDY 10/28/19 13:35 Urine pH 5.0 (5.0-9.0) 10/28/19 13:35 Ur Specific [place] 1.008 10/28/19 13:35 Urine Protein 30 mg/dL (NEGATIVE) H 10/28/19 13:35 Urine Glucose (UA) NEGATIVE mg/dL (NEGATIVE) 10/28/19 13:35 Urine Ketones NEGATIVE mg/dL (NEGATIVE) 10/28/19 13:35 Urine Blood SMALL (NEGATIVE) H 10/28/19 13:35 Urine Nitrite (Reflex) NEGATIVE (NEGATIVE) 10/28/19 13:35 Urine Bilirubin NEGATIVE (NEGATIVE) 10/28/19 13:35 Urine Urobilinogen NEGATIVE mg/dL (<2.0) 10/28/19 13:35 Leukocyte Esterase Rfl MODERATE (NEGATIVE) H 10/28/19 13:35 Urine RBC (Auto) 6 /HPF 10/28/19 13:35 Urine Bacteria (Auto) TRACE /HPF 10/28/19 13:35 Urine WBC (Reflex) 10 /HPF 10/28/19 13:35 Squamous Epi Cells Auto 2 /HPF 10/28/19 13:35 Urine Mucus (Auto) RARE /LPF 10/28/19 13:35 Urine Ascorbic Acid NEGATIVE (NEGATIVE) 10/28/19 13:35 SARS-CoV-2 (PCR) NEGATIVE (NEGATIVE) 10/28/19 19:16 10/28/19 11/04/19 13:01 04:40 Troponin I 0.090 NT-Pro-B Natriuret Pep 90606 H 538 H Impressions: Chest CT 10/28/19 00:00 IMPRESSION: Dense diffuse bilateral airspace disease edema versus pneumonia versus ARDS Trace fluid in the fissures Massive cardiomegaly Chest X-Ray 10/28/19 11:13 IMPRESSION: Patchy opacification in the mid and lower lung zones with prominent and indistinct pulmonary vasculature and cardiomegaly. Constellation of findings likely represents pulmonary edema in the setting of congestive heart failure. A superimposed infectious process would be difficult to exclude. Recommend radiographic follow-up. Chest X-Ray 11/01/19 06:00 IMPRESSION: Improving CHF. Plan Plan of Treatment: Patient is advised to be compliant with her BiPAP at home. And also advised to follow-up with Dr. Allen in 1 week time. Time Spent: Greater than 30 Minutes Stroke Is this a Stroke Patient?: No Acute Heart Failure - Is this a Heart Failure Patient?: No (1) Acute on chronic systolic (congestive) heart failure Is this a current diagnosis for this admission?: Yes Plan: - admitted due to SOB - CXR +ve pulmonary edema - BNP 28,000>538. - no recent echo. Will hold repeating for now - aldactone, imdur stopped - metoprolol decreased to 25 - continue Sacubitril-Valsartan - has ICD/pacemaker already - wean off bipap - Dr. Ragsdale following. -She can go home once Dr. Allen has seen her. Lasix home dose need to be resumed prior to discharge. She has been hypertensive for about 2 days which has improved with midodrine. Need to touch base with Dr. Ragsdale regarding continuing midodrine at home after discharge - daily weights 110 kg to 108 - strict IO 820-on examination patient is euvolemic. Has a history of ICD/pacemaker. Patient is advised to continue Entresto at this time. Aldactone discontinued. Toprol is on hold because of bradycardia. Patient is advised to follow-up with Dr. Ragsdale in his office. (2) COPD (chronic obstructive pulmonary disease) Qualifiers: COPD type: COPD with acute exacerbation Qualified Code(s): J44.1 - Chronic obstructive pulmonary disease with (acute) exacerbation Is this a current diagnosis for this admission?: Yes Plan: - improved SOB. - Hx MRSA in sputum. - blood culture negative x 2 - Sputum culture growing gram-positive cocci in clusters - on scheduled and as needed nebulizer treatments. - completed steroids - continue Mucinex twice daily. - continue Bactrim DS completed 7 days - repeat CXR showed improving aeration - Dr. Allen consulted. She should be able to go home once she has she has undergone PFT. - continue o2 support - Pulmonary toilet is encouraged with incentive spirometer, flutter valve, and early ambulation. (3) Acute respiratory failure with hypoxia and hypercapnia Is this a current diagnosis for this admission?: Yes (4) Acute renal failure superimposed on chronic kidney disease Qualifiers: Acute renal failure type: unspecified Chronic kidney disease stage: stage 3 (moderate) Qualified Code(s): N17.9 - Acute kidney failure, unspecified; N18.3 - Chronic kidney disease, stage 3 (moderate) Is this a current diagnosis for this admission?: Yes Plan: -Creatinine 2.05-> 1.91>2.18>1.65>1.58>2.24; up from baseline of 1.50. - will hold the dose tomorrow and resume on Tue - aldactone held - strict IO -Avoid nephrotoxic medications. -daily BMP (5) Atrial fibrillation Qualifiers: Atrial fibrillation type: unspecified Qualified Code(s): I48.91 - Un specified atrial fibrillation Is this a current diagnosis for this admission?: Yes Plan: - patient has a pacemaker and ICD - Rate controlled on metoprolol - eliquis for AC (6) CAD (coronary artery disease) Qualifiers: Coronary Disease-Associated Artery/Lesion type: bypass graft [place] vs. transplanted heart: [place] heart Associated angina: with unspecified angina Qualified Code(s): I25.709 - Atherosclerosis of coronary artery bypass graft(s), unspecified, with unspecified angina pectoris Is this a current diagnosis for this admission?: Yes Plan: - no chest pain - trop 0.090 - continue aspirin, metoprolol, entresto, statin (7) Hypertension Qualifiers: Hypertension type: essential hypertension Qualified Code(s): I10 - Essential (primary) hypertension Is this a current diagnosis for this admission?: Yes Plan: - currently hypotensive - started on midodrine - will montior BP. I have already decresed her metoprol dose, stopped imdur and aldactone -no signs of fluid overload so she does not need dobutamine drip - Dr. Ragsdale on board (8) RUBIN (obstructive sleep apnea) Is this a current diagnosis for this admission?: Yes Plan: BiPAP nightly and PRN (9) Morbid obesity Is this a current diagnosis for this admission?: Yes Plan: - lifestyle modification advised - Additional Information Resuscitation Status: Full Code Discharge Diet: Cardiac Discharge Activity: Activity As Tolerated, Balance Activity w/Rest, Weigh Daily Referrals: YI SANCHEZ DO [Primary Care Provider] - 11/07/19 3:30 pm Prescriptions: Aspirin [Ecotrin 81 mg EC Tablet] 81 mg PO DAILY 30 Days #30 tabec Home Medications: Alprazolam [Xanax 0.5 mg Tablet] 0.5 mg PO Q6HP PRN 02/08/19 Atorvastatin Calcium [Lipitor 80 mg Tablet] 80 mg PO QHS 02/08/19 Paroxetine HCl [Paxil 20 mg Tablet] 20 mg PO DAILY 02/08/19 Oxycodone HCl/Acetaminophen [Percocet 7.5-325 mg Tablet] 1 each PO Q6HP PRN 06/24/19 Apixaban [Eliquis 2.5 mg Tablet] 2.5 mg PO Q12 #0 tablet 07/03/19 Buspirone HCl [Buspar 10 mg Tablet] 10 mg PO Q12 #0 tablet 07/03/19 Famotidine [Pepcid 20 mg Tablet] 20 mg PO Q12 tablet 07/03/19 Aspirin [Ecotrin 81 mg EC Tablet] 81 mg PO DAILY 07/10/19 Isosorbide Mononitrate [Imdur 30 mg Tablet.er] 30 mg PO QAM 07/10/19 Furosemide [Lasix 40 mg Tablet] 60 mg PO QAM 10/29/19 Melatonin [Melatonin 1 mg Tablet] 1 mg PO QHS 10/29/19 Metoprolol Succinate [Toprol Xl 25 mg Tab.sr] 50 mg PO Q12 10/29/19 Olopatadine HCl [Pazeo] 1 drop OU DAILY 10/29/19 Sacubitril/Valsartan [Entresto 49 mg/51 mg Tablet] 1 tab PO Q12 10/29/19 Aspirin [Ecotrin 81 mg EC Tablet] 81 mg PO DAILY 30 Days #30 tabec 11/06/19 Sacubitril/Valsartan [Entresto 49 mg/51 mg Tablet] 1 tab PO Q12 tablet 11/06/19 History of Present Illiness History of Present Illness: FRANKI DEL ROSARIO is a 48 year old female 48 year old female, well-known to our service, with a past medical history significant for CAD, CABG in 2006, subsequent artery stenting, CHF with LVEF of 20 to 25%, atrial fibrillation, AICD, COPD, CKD 3, GERD, depression, morbid obesity, RUBIN, and remote substance abuse who presented to the emergency department via EMS today with a complaint of dyspnea. Per ED provider, prior to arrival, patient received multiple albuterol nebulizer treatments and epinephrine for management of her dyspnea resulting in hypertensive urgency. After a monitoring period, it was determined that the patient's blood pressures remain elevated enough to warrant nitroglycerin drip. Further evaluation revealed Low-grade temperature (99.8), paced rhythm in the mid 60s, tachypnea (38) and hypoxia on room air. Of note, the last time I personally discharge this patient (approximately 7-8 months ago), the patient was discharged on supplemental oxygen and was attending pulmonary rehabilitation therapy. Laboratory evaluation revealed baseline anemia, chemistry showed mild BENNY (CR 2.05 today; baseline 1.5), mildly elevated LFTs (near her baseline), and an elevated proBNP to 28K (baseline). ABG revealed respiratory acidosis with hypercapnia. Chest x-ray showed pulmonary edema with a possible superimposed infectious process which would be difficult to exclude; recommend follow-up imaging. As mentioned, patient was provided nitroglycerin drip for Hypertensive management, morphine, Zofran, and BiPAP. She is referred to the hospitalist service for further evaluation management of the above-stated complaints and findings. Hospital Course Hospital Course: 48-year-old female past medical history of coronary artery disease CABG in 2006, CHF with LVEF of 20 to 25%, atrial fibrillation, ICD and pacemaker placement COPD CKD stage III GERD depression morbid obesity, admitted on October 27 due to shortness of breath. Has x-ray showed pulmonary edema with possible superimposed infection. Pressure noted to be high in the ED and she was initially started on nitroglycerin drip. BNP 28,000 which is around her baseline, creatinine 2.05 baseline of around 1.5. Cardiology was consulted she was started on Lasix 20 mg IV daily home medications Entresto and metoprolol were continued. She was put on BIPAP for oxygen support. D3 hospital stay 10/30/19: She was seen and examined at bed side. Complains of pain all over, her home pain medications has been resumed. On bipap. Denies any chest pain, SOB, palpitations. D4 hospital stay 10/31/19: She was seen and examined at bedside. Reports improvement in terms of breathing. Afebrile, good appetite. Again requesting morphine dose. She is currently on her home pain medications. According to the nurse, she still desaturates when taken off the BIPAP. Oral lasix dose resumed, aldactone 12.5 mg daily was added for HF. D5 hospital stay 11/01/19: she was seen and examined at bedside. Reports chronic pain all over. Otherwise, she reports that her breathing is much better. She remains on BiPAP most days, at home she uses 4 L of nasal cannula. She was started on Aldactone yesterday 12.5 once a day. Blood pressure noted to be low this morning 85/50. I held the Aldactone and stop the Imdur, hopefully this will help with her blood pressure. According to the patient she has a BiPAP however she does not know how to use it, plan is to have discharge planning reach out to company that issue the machine to that they can come in her house and teach her how to use it. D6 hospital stay 11/02/19: She was seen and examined at bedside. Denied chest pain, SOB. Breathing improved. Imdur dose and aldactone D7 hospital stay 11/03/19: Seen and examined at bedside. She reports that she is ready to go home. Reports improvement of pain since resuming her home dose of percocet. BP still marginal this morning but she denies dizziness, chest pain, SOB. D8 hospital stay. She continues to have low BP, asymptomatic. She complains of pain all over despite increasing her mediation back to her home dose. Metoprolol decreased, aldactone and imdur stopped. Midodrine started by Dr. Ragsdale. Dr. Allen consulted for COPD and plans to do PFT on Tue. Creatinine uptrending. lasix vacation for 1 day tomorrow then will resume on Tuesday if creatinine is better. D9 hospital stay 11/05/19. She was seen and examined at bedside. She denies any worsening dyspnea, chest pain. No fever, good appetite. She is able to tolerate being off the bipap for long periods of time. Dr. Ragsdale called Dr. Allen to see her and he would like a PFT to be done Tuesday to help set her up for Trilogy. She did not receive lasix today. Hopefully can be resumed tomorrow pending creatinine. BNP is down from 28,500 to 538 although her weight has not changed. clinically looks euvolemic now. 11/06/2019-patient was comfortably in the bed communicating well. Expressing desire to go home today. I discussed the plan of care with Dr. Allen after the pulmonary function test was done he thinks she does not qualify for trilogy at this time. But he wants her to follow-up in the office in 1 week time for further testing. Physical Exam Vital Signs: Temp Pulse Resp BP Pulse Ox 97.9 F 60 16 121/61 100 11/06/19 11:11 11/06/19 11:11 11/06/19 11:11 11/06/19 11:11 11/06/19 11:11 Intake & Output 11/05/19 11/06/19 11/07/19 06:59 06:59 06:59 Intake Total 1395 1804 120 Output Total 2800 1400 800 Balance -1405 404 -680 Weight 109.7 kg 109.8 kg General appearance: PRESENT: no acute distress, morbidly obese Head exam: PRESENT: atraumatic Eye exam: PRESENT: PERRLA Mouth exam: PRESENT: moist, tongue midline Teeth exam: PRESENT: poor dentation Neck exam: ABSENT: carotid bruit, JVD, lymphadenopathy, thyromegaly Respiratory exam: PRESENT: decreased breath sounds Cardiovascular exam: PRESENT: RRR. ABSENT: diastolic murmur, rubs, systolic murmur GI/Abdominal exam: PRESENT: normal bowel sounds, soft. ABSENT: distended, guarding, mass, organolmegaly, rebound, tenderness Rectal exam: PRESENT: deferred Extremities exam: PRESENT: full ROM. ABSENT: calf tenderness, clubbing, pedal edema Neurological exam: PRESENT: alert, awake, oriented to person, oriented to place, oriented to time, oriented to situation, CN II-XII grossly intact. ABSENT: motor sensory deficit Psychiatric exam: PRESENT: appropriate affect, normal mood. ABSENT: homicidal ideation, suicidal ideation Results Laboratory Results: WBC 7.9 10^3/uL (4.0-10.5) 11/06/19 04:28 RBC 3.89 10^6/uL (3.72-5.28) 11/06/19 04:28 Hgb 12.2 g/dL (12.0-15.5) 11/06/19 04:28 Hct 36.1 % (36.0-47.0) 11/06/19 04:28 MCV 93 fl (80-97) 11/06/19 04:28 MCH 31.3 pg (27.0-33.4) 11/06/19 04:28 MCHC 33.8 g/dL (32.0-36.0) 11/06/19 04:28 RDW 18.0 % (11.5-14.0) H 11/06/19 04:28 Plt Count 296 10^3/uL (150-450) 11/06/19 04:28 Lymph % (Auto) 20.9 % (13-45) 11/06/19 04:28 [place] % (Auto) 7.4 % (3-13) 11/06/19 04:28 Eos % (Auto) 0.0 % (0-6) 11/06/19 04:28 Baso % (Auto) 0.3 % (0-2) 11/06/19 04:28 Absolute Neuts (auto) 5.7 10^3/uL (1.7-8.2) 11/06/19 04:28 Absolute Lymphs (auto) 1.7 10^3/uL (0.5-4.7) 11/06/19 04:28 Absolute Monos (auto) 0.6 10^3/uL (0.1-1.4) 11/06/19 04:28 Absolute Eos (auto) 0.0 10^3/uL (0.0-0.6) 11/06/19 04:28 Absolute Basos (auto) 0.0 10^3/uL (0.0-0.2) 11/06/19 04:28 Seg Neutrophils % 71.4 % (42-78) 11/06/19 04:28 Carbonic Acid 1.43 mmol/L (1.05-1.35) H 10/28/19 18:30 HCO3/H2CO3 Ratio 15:1 10/28/19 18:30 ABG pH 7.30 (7.35-7.45) L 10/28/19 18:30 ABG pCO2 47.4 mmHg (35-45) H 10/28/19 18:30 ABG pO2 94.9 mmHg (80-100) 10/28/19 18:30 ABG HCO3 22.8 mmol/L (20-24) 10/28/19 18:30 ABG Total CO2 24.3 mmol/L (21-25) 10/28/19 18:30 ABG O2 Saturation 96.5 % (94-98) 10/28/19 18:30 ABG Base Excess -3.7 mmol/L 10/28/19 18:30 FiO2 65% 10/28/19 18:30 Sodium 138.3 mmol/L (137-145) 11/06/19 04:28 Potassium 5.2 mmol/L (3.6-5.0) H 11/06/19 04:28 Chloride 102 mmol/L (98-107) 11/06/19 04:28 Carbon Dioxide 26 mmol/L (22-30) 11/06/19 04:28 Anion Gap 10 (5-19) 11/06/19 04:28 BUN 52 mg/dL (7-20) H 11/06/19 04:28 Creatinine 2.36 mg/dL (0.52-1.25) H 11/06/19 04:28 Est GFR ( Amer) 27 (>60) L 11/06/19 04:28 Est GFR (MDRD) Non-Af 22 (>60) L 11/06/19 04:28 Glucose 106 mg/dL (75-110) 11/06/19 04:28 Calcium 9.1 mg/dL (8.4-10.2) 11/06/19 04:28 Magnesium 2.1 mg/dL (1.6-2.3) 10/29/19 04:55 Total Bilirubin 0.7 mg/dL (0.2-1.3) 11/06/19 04:28 Direct Bilirubin 0.5 mg/dL (0.0-0.4) H 11/06/19 04:28 Neonat Total Bilirubin Not Reportable 11/06/19 04:28 Neonat Direct Bilirubin Not Reportable 11/06/19 04:28 Neonat Indirect Bili Not Reportable 11/06/19 04:28 AST 32 U/L (14-36) 11/06/19 04:28 ALT 134 U/L (<35) H 11/06/19 04:28 Alkaline Phosphatase 92 U/L (38-126) 11/06/19 04:28 Troponin I 0.090 ng/mL 10/28/19 13:01 NT-Pro-B Natriuret Pep 538 pg/mL (<125) H 11/04/19 04:40 Total Protein 6.8 g/dL (6.3-8.2) 11/06/19 04:28 Albumin 4.0 g/dL (3.5-5.0) 11/06/19 04:28 Urine Color YELLOW 10/28/19 13:35 Urine Appearance SLIGHTLY-CLOUDY 10/28/19 13:35 Urine pH 5.0 (5.0-9.0) 10/28/19 13:35 Ur Specific [place] 1.008 10/28/19 13:35 Urine Protein 30 mg/dL (NEGATIVE) H 10/28/19 13:35 Urine Glucose (UA) NEGATIVE mg/dL (NEGATIVE) 10/28/19 13:35 Urine Ketones NEGATIVE mg/dL (NEGATIVE) 10/28/19 13:35 Urine Blood SMALL (NEGATIVE) H 10/28/19 13:35 Urine Nitrite (Reflex) NEGATIVE (NEGATIVE) 10/28/19 13:35 Urine Bilirubin NEGATIVE (NEGATIVE) 10/28/19 13:35 Urine Urobilinogen NEGATIVE mg/dL (<2.0) 10/28/19 13:35 Leukocyte Esterase Rfl MODERATE (NEGATIVE) H 10/28/19 13:35 Urine RBC (Auto) 6 /HPF 10/28/19 13:35 Urine Bacteria (Auto) TRACE /HPF 10/28/19 13:35 Urine WBC (Reflex) 10 /HPF 10/28/19 13:35 Squamous Epi Cells Auto 2 /HPF 10/28/19 13:35 Urine Mucus (Auto) RARE /LPF 10/28/19 13:35 Urine Ascorbic Acid NEGATIVE (NEGATIVE) 10/28/19 13:35 SARS-CoV-2 (PCR) NEGATIVE (NEGATIVE) 10/28/19 19:16 10/28/19 11/04/19 13:01 04:40 Troponin I 0.090 NT-Pro-B Natriuret Pep 57540 H 538 H Impressions: Chest CT 10/28/19 00:00 IMPRESSION: Dense diffuse bilateral airspace disease edema versus pneumonia versus ARDS Trace fluid in the fissures Massive cardiomegaly Chest X-Ray 10/28/19 11:13 IMPRESSION: Patchy opacification in the mid and lower lung zones with prominent and indistinct pulmonary vasculature and cardiomegaly. Constellation of finding s likely represents pulmonary edema in the setting of congestive heart failure. A superimposed infectious process would be difficult to exclude. Recommend radiographic follow-up. Chest X-Ray 11/01/19 06:00
[2019-11-06 18:21] VITALS: BP 102/60
--- NOTE | 2019-11-06 20:07 | Progress Note ---
Provider Note Provider Note: CARDIOLOGY PROGRESS NOTE by Dr. Griselda Martin on 11/06/2019 SUBJECTIVE: The patient denies any chest pain discomfort. There is no shortness of breath. There is no anginal symptoms. There is no arrhythmias seen on the monitor and there is no firing of the patient's AICD. There is no bleeding on Eliquis. There is no TIA CVA symptoms. There is no PND leg edema orthopnea. Denies any palpitations. PHYSICAL EXAMINATION: Patient morbidly obese. In no acute distress. Selected Entries 11/06/19 11/06/19 15:59 18:00 Temperature 97.5 F Temperature Oral Source Pulse Rate 59 L Respiratory 16 Rate Blood Pressure 111/64 Blood Pressure 102/60 [Right Upper Arm] Blood Pressure 79 Mean BP Location Right Arm BP Position Sitting O2 Sat by Pulse 100 Oximetry Oxygen Flow 4.00 Rate Oxygen Delivery Nasal Cannula Method HEAD: Is atraumatic normocephalic. EYES: Pupils are equal round regular reactive to light. HEENT is negative. SKIN: There is no skin rashes or skin lesions. There is no particular ecchymosis. NECK: Is supple. There is mild JVD present. Carotids are equal there is no bruits. There is no lymphadenopathy. There is no goiter. There is no accessory muscle respiration use. Trachea central. LUNGS: . Clear to auscultation percussion. HEART: S1- S2 is heard. There is no S3 gallop. There is no S4 gallop. There is systolic murmur mitral regurgitation tricuspid regurgitation present. There is no aortic stenosis murmur. There is no aortic insufficiency murmur. There is no rub. ABDOMEN: Is obese. Nontender. There is no hepatosplenomegaly. Bowel sounds are well heard. There is no rebound guarding or rigidity. EXTREMITIES: Femorals are deep. Femorals are diminished. There is no femoral bruits. There is decreased leg pulses. There is mild pedal edema. 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 PSYCHIATRIC: The patient judgment insight are intact. She does not appear to be agitated or anxious. Labs- All tests 24 hr 11/06/19 11/06/19 04:28 04:28 WBC 7.9 RBC 3.89 Hgb 12.2 Hct 36.1 MCV 93 MCH 31.3 MCHC 33.8 RDW 18.0 H Plt Count 296 Lymph % (Auto) 20.9 [place] % (Auto) 7.4 Eos % (Auto) 0.0 Baso % (Auto) 0.3 Absolute Neuts (auto) 5.7 Absolute Lymphs (auto) 1.7 Absolute Monos (auto) 0.6 Absolute Eos (auto) 0.0 Absolute Basos (auto) 0.0 Seg Neutrophils % 71.4 Sodium 138.3 Potassium 5.2 H Chloride 102 Carbon Dioxide 26 Anion Gap 10 BUN 52 H Creatinine 2.36 H Est GFR ( Amer) 27 L Est GFR (MDRD) Non-Af 22 L Glucose 106 Calcium 9.1 Total Bilirubin 0.7 Direct Bilirubin 0.5 H Neonat Total Bilirubin Not Reportable Neonat Direct Bilirubin Not Reportable Neonat Indirect Bili Not Reportable AST 32 ALT 134 H Alkaline Phosphatase 92 Total Protein 6.[address] 10/28/19 00:00 IMPRESSION: Dense diffuse bilateral airspace disease edema versus pneumonia versus ARDS Trace fluid in the fissures Massive cardiomegaly Chest X-Ray 10/28/19 11:13 IMPRESSION: Patchy opacification in the mid and lower lung zones with prominent and indistinct pulmonary vasculature and cardiomegaly. Constellation of findings likely represents pulmonary edema in the setting of congestive heart failure. A superimposed infectious process would be difficult to exclude. Recommend radiographic follow-up. Chest X-Ray 11/01/19 06:00 IMPRESSION: Improving CHF. IMPRESSION/RECOMMENDATION: 1. HYPOTENSION: This has resolved with the patient being on midodrine. Hence we will continue midodrine. 2. Acute on chronic respiratory failure. This is secondary to pneumonia, obstructive sleep apnea, and acute on chronic systolic heart failure: And bilateral patchy pneumonia. Continue BiPAP. This is resolved patient back to baseline. 3. Acute on chronic systolic heart failure. Patient with LV ejection fraction of 25%. beta-blockers and Entresto. Continue diuretics. Continue Entresto at present heart failure is well compensated. 4. Bilateral patchy pneumonia: This is resolved. 5. Dilated cardiomyopathy with severely reduced LV ejection fraction. 6. History of MRSA pneumonia: 7. History of amiodarone toxicity. Would recommend avoiding amiodarone 8. Chronic kidney disease: Stable at stage III. The patient spironolactone has been discontinued. 9. History of atrial fibrillation/flutter. At present most likely in sinus mechanism with paced ventricular rhythm recommend continue Eliquis. She has no history of TIA CVA 10. COPD. At present no evidence of acute exacerbation of COPD. 11. History of ventricular tachycardia, The patient has an AICD placed. If there is recurrence of ventricular tachycardia or major ventricular ectopic activity then would start the patient on small dose of sotalol. Would avoid amiodarone. 12. Coronary artery disease: History of [place] and history of coronary bypass graft surgery. No evidence of acute coronary syndrome/non-ST ST elevation [place] this admission. 13. Obstructive sleep apnea. Note patient has been noncompliant with CPAP. Most likely has significant pulmonary hypertension. 14. AICD placement: No firing of the AICD. The patient had a pulmonary function test which showed severely reduced di ffusion capacity and also restrictive disease. No significant obstructive component. Hence the patient will not qualify for trilogy. The patient has been asked to contact the vendor to see if they can educate the patient with the use of CPAP at home. Medication reviewed. Medications adjusted. Medical regimen and management plan discussed and discussed with attending provider. Medical decision making is moderate complexity. 40 minutes spent as patient more than 50% time spent in direct patient care. Cardiac status is stable. Patient be discharged home. She will follow-up with me in the office.
--- NOTE | 2019-11-07 16:15 | Pulmonary Function Test ---
Pulmonary Function Test Date of Procedure:: 11/06/19 - Received 11/07/2019 INDICATION:: Dyspnea/emphysema/RUBIN Referring Provider: Dr. Vern Martin Scientific Programmer: Tari Leon, MUSIC TYPOGRAPHER, STATION CHIEF - Report Spirometry: Spirometry: pre-FVC: 2.17 L 65% post-FVC: 2.21 L 66% pre-FEV:1 1.92 L 69% post-FEV1: 1.88 L 68% pre-FEV1/FVC %: 88 post-FEV1/FVC%: 85 predicted: 84 [id number]%: 2.63 L 85% [id number]%: 2.84 L 92% Lung Volume: Total lung capacity: 3.32 L 64% Vital capacity: 2.17 L 65% Inspiratory capacity: 1.55 L FRC N2: 1.77 L 81% ERV: 0.39 RV: 1.15 L 64% RV/TLC %:: 35 predicted 34 Diffusion Capactity: DLCO: 10.9 39% DLCO/VA: 3.17 75% Impression: Mild restrictive ventilatory defect. (Restrictive defect may mask the degree of obstruction.) This struct of defect, hyperinflation or air trapping. Severe decrease in diffusion capacity.
== END 2019-11-06 18:40 | disposition home or self-care (01) | DRG 291 ==
LOC: ER 11:00 → EH 16:59 → 3W 22:17
PROVIDERS: ADMIT Internal Medicine; ATTEND Internal Medicine
DX: I13.0 Hypertensive heart and chronic kidney disease with heart failure and stage 1 through stage 4 chronic kidney disease, or unspecified chronic kidney disease (principal); J96.01 Acute respiratory failure with hypoxia; I50.23 Acute on chronic systolic (congestive) heart failure; J18.9 Pneumonia, unspecified organism; J96.02 Acute respiratory failure with hypercapnia; N17.9 Acute kidney failure, unspecified; J44.1 Chronic obstructive pulmonary disease with (acute) exacerbation; Z68.41 Body mass index [BMI] 40.0-44.9, adult; I95.9 Hypotension, unspecified; I42.0 Dilated cardiomyopathy; I48.91 Unspecified atrial fibrillation; I25.10 Atherosclerotic heart disease of native coronary artery without angina pectoris; N18.3 Chronic kidney disease, stage 3 (moderate); E78.00 Pure hypercholesterolemia, unspecified; K21.9 Gastro-esophageal reflux disease without esophagitis; R19.7 Diarrhea, unspecified; G47.33 Obstructive sleep apnea (adult) (pediatric); E66.01 Morbid (severe) obesity due to excess calories; F41.8 Other specified anxiety disorders; I25.2 Old myocardial infarction; Z20.828 Contact with and (suspected) exposure to other viral communicable diseases; Z95.5 Presence of coronary angioplasty implant and graft; Z95.810 Presence of automatic (implantable) cardiac defibrillator; Z79.01 Long term (current) use of anticoagulants; Z79.82 Long term (current) use of aspirin; Z79.899 Other long term (current) drug therapy; Z99.81 Dependence on supplemental oxygen
CPT/HCPCS: 36415; 36600; 71045; 71250; 80048; 80053; 81001; 82803; 83735; 83880; 84484; 85025; 85027; 87040; 87070; 87077; 87086; 87088; 87186; 87205; 87635; 93005; 93010; 94060; 94660; 94727; 94729; 96365; 96375; 99285; C9803; J1940; J2270; J2405; J3490; J7512

== ENCOUNTER 2020-01-09 06:22 | Inpatient (IN) | payer MEDICAID ==
--- NOTE | 2020-01-09 06:30 | ER Document Report ---
ED General - General Stated Complaint: RESPIRATORY DISTRESS Primary Care Provider: YI SANCHEZ DO [Primary Care Provider] - Follow up as needed Notes: HPI: 49-year-old female with past medical history including COPD and CHF who supposedly had a pacemaker placed on 2 weeks ago at [facility] who presents today with what she states is some chest discomfort and shortness of breath starting last night. She states she has been compliant with her medicati ons. She denies any fevers, vomiting, diarrhea, abdominal pain, back pain, leg swelling. Patient was brought in by EMS secondary to low oxygen saturations. They placed the patient on BiPAP. No steroids or nebulizers were provided. They were unable to obtain a satisfactory blood pressure reading. ROS: See HPI All other review of systems reviewed and otherwise negative Reviewed vital signs and nursing note as charted by RN. PHYSICAL EXAM: CONSTITUTIONAL: Alert and oriented; patient on BiPAP. Answering questions appropriately HEAD: Normocephalic; atraumatic EYES: PERRL; Conjunctivae clear, sclerae non-icteric ENT: BiPAP mask in place NECK: Supple without meningismus; non-tender; no cervical lymphadenopathy, no masses CARD: Regular rate and rhythm; no murmurs; symmetric distal pulses RESP: Normal chest excursion without splinting or tachypnea; scattered rales and rhonchi without wheezing appreciated ABD/GI: Normal bowel sounds; elevated BMI; soft, non-tender; no palpable organomegaly or masses BACK: The back appears normal and is non-tender to palpation EXT: Normal ROM in all joints; non-tender to palpation; no edema SKIN: No acute lesions noted NEURO: CN 2-12 intact; 5/5 bilateral upper and lower extremity strength with sensation intact to light touch PSYCH: The patient's mood and manner are appropriate. Grooming and personal hygiene are appropriate. TRAVEL OUTSIDE OF THE [place] IN LAST 30 DAYS: No - Related Data Allergies/Adverse Reactions: egg [Egg] Allergy (Verified 07/09/19 20:06) propoxyphene [From Darvocet-N] Allergy (Verified 07/09/19 20:06) amiodarone Adverse Reaction (Verified 07/09/19 20:06) Respiratory distress diphenhydramine HCl [From Benadryl] Adverse Reaction (Verified 07/09/19 20:06) chest pain, bigemeny rhythm Past Medical History - Social History Smoking Status: Unknown if Ever Smoked Family History: CAD, CVA, DM, Hypertension, Malignancy, Other - Kidney disease - Past Medical History Cardiac Medical History: Reports: Hx Atrial Fibrillation, Hx Congestive Heart Failure, Hx Coronary Artery Disease, Hx Heart Attack, Hx Hypercholesterolemia, Hx Hypertension Denies: Hx DVT, Hx Pulmonary Embolism Pulmonary Medical History: Reports: Hx Bronchitis, Hx COPD, Hx Pneumonia, Hx Intubation, Hx Respiratory Failure, Hx Sleep Apnea Denies: Hx Asthma Neurological Medical History: Denies: Hx Cerebrovascular Accident, Hx Seizures Endocrine Medical History: Denies: Hx Diabetes Mellitus Type 1, Hx Diabetes Mellitus Type 2, Hx Hyperthyroidism, Hx Hypothyroidism Renal/ Medical History: Reports: Hx Kidney Stones, Hx Renal Insufficiency. Denies: Hx Peritoneal Dialysis GI Medical History: Reports: Hx Gastroesophageal Reflux Disease, Hx Hepatitis. Denies: Hx Cirrhosis, Hx Crohn's Disease, Hx Hiatal Hernia, Hx Ulcer, Hx Ulcerative Colitis Musculoskeletal Medical History: Denies Hx Arthritis, Denies Hx Gout Skin Medical History: Denies Hx Eczema, Denies Hx Psoriasis Psychiatric Medical History: Reports: Hx Anxiety, Hx Depression, Hx Schizophrenia Infectious Medical History: Reports: Hx Hepatitis, Hx MRSA Past Surgical History: Reports: Hx Cardiac Catheterization - multiple, Hx Cardiac Surgery - pacemaker/icd, Hx Section, Hx Coronary Artery Bypass Graft - 2006, Hx Coronary Stent - Multiple, Hx Hysterectomy, Hx Open Heart Surgery - BYPASS 2006, Hx Pacemaker - AICD, Hx Tubal Ligation. Denies: Hx Mastectomy - Immunizations Hx Diphtheria, Pertussis, Tetanus Vaccination: Yes Hx Pneumococcal Vaccination: 04/04/12 Physical Exam - Vital signs Vitals: Resp BP Pulse Ox 27 H 177/123 H 98 01/09/20 06:28 01/09/20 06:28 01/09/20 06:28 Course - Re-evaluation Re-evalutation: 01/09/20 06:40 Given the history and physical examination with the patient's blood pressure reading as recorded x2, we will place the patient on BiPAP, start nitroglycerin drip, obtain cardiac labs including a troponin, EKG, BNP, and reassess. Given the history of COPD I will provide Solu-Medrol and 1 nebulizer and reassess the patient's lungs. Given the elevated blood pressure with some anterior chest pressure, I am slightly concerned about ACS. Given the COPD, CHF, and multiple admissions in the past similar to this, I do believe dissection and PE to be unlikely. Reviewing the patient's chart it appears the patient has had multiple previous admissions for similar pathology. Her last admission was around 2 months ago. She had a BNP greater than 28,000 as well as a COPD exacerbation and acute on chronic kidney failure. She was admitted to the hospital here for a prolonged period of time with cardiology and pulmonary consultation. Nitro drip is being initiated. Blood cultures have also been drawn and aspirin has been provided. 01/09/20 06:59 EKG shows a paced rhythm. Heart rate 78. 01/09/20 07:24 Patient is on a nitro glycerin drip with improved respiration. ABG is pending. X-ray of the chest is pending. There we cycling the blood pressure every 5 minutes will be increasing the nitroglycerin. 01/09/20 08:13 Patient's breathing and blood pressure has improved. Patient would like to eat some ice. Labs initially as recorded. ABG pending. X-ray as recorded. Given the great improvement with the blood pressure management, I do believe flash pulmonary edema and hypertensive emergency to be more likely than bacterial pneumonia. However we will provide 1 dose of Rocephin and azithromycin. Blood cultures have been sent. - Vital Signs Vital signs: Temp Pulse Resp BP Pulse Ox 24 H 153/125 H 90 L 01/09/20 06:55 01/09/20 07:51 01/09/20 07:51 - Laboratory Result Diagrams: 01/09/20 06:44 01/09/20 06:44 Laboratory results interpreted by me: 01/09/20 01/09/20 01/09/20 06:44 06:44 06:44 WBC 12.4 H MCV 101 H MCHC 30.9 L RDW 17.1 H Absolute Lymphs (auto) 5.2 H BUN 28 H Creatinine 1.95 H Est GFR ( Amer) 33 L Est GFR (MDRD) Non-Af 27 L Glucose 317 H NT-Pro-B Natriuret Pep 4850 H Critical Care Note - Critical Care Note Total time excluding time spent on procedures (mins): 45 Discharge - Discharge Clinical Impression: Acute respiratory distress, Flash pulmonary edema, Hypertensive emergency Acute congestive heart failure Qualifiers: Heart failure type: unspecified Qualified Code(s): I50.9 - Heart failure, u nspecified Condition: Serious Disposition: ADMITTED INPATIENT Admitting Provider: Liliana (Hospitalist) Unit Admitted: IMCU Referrals: YI SANCHEZ DO [Primary Care Provider] - Follow up as needed
[2020-01-09] MEDS ORDERED: METHYLPREDNISOLONE INJ 125 MG/2 ML SDV IV ONE (06:31)
[2020-01-09] MEDS ORDERED: IPRATROPIUM/ALBUTEROL 0.5-2.5 MG/3 ML AMPUL NEB SCH (06:45)
[2020-01-09] MEDS: NITROGLYCERIN/D5W 50 MG/250 ML RTUINJ IV PRN (06:54)
[2020-01-09] MEDS ORDERED: FUROSEMIDE INJ/PF 40 MG/4 ML SDV IV ONE (07:19)
[2020-01-09] MEDS ORDERED: ONDANSETRON HCL INJ/PF 4 MG/2 ML SDV IV ONE (07:19)
[2020-01-09 07:20] LABS: ABSOLUTE BASOPHILS # (AUTO) 0.1 10^3/uL (0.0-0.2); ABSOLUTE EOSINOPHILS # (AUTO) 0.2 10^3/uL (0.0-0.6); ABSOLUTE LYMPHOCYTES (AUTO) 5.2 10^3/uL (0.5-4.7); ABSOLUTE MONOCYTES (AUTO) 0.5 10^3/uL (0.1-1.4); ABSOLUTE NEUT (AUTO) 6.4 10^3/uL (1.7-8.2); BASOPHILS % (AUTO) 0.9 % (0-2); EOSINOPHILS % (AUTO) 1.8 % (0-6); HEMATOCRIT 39.4 % (36.0-47.0); HEMOGLOBIN 12.2 g/dL (12.0-15.5); LYMPHOCYTES % (AUTO) 41.7 % (13-45); MEAN CORPUSCULAR HEMOGLOBIN 31.2 pg (27.0-33.4); MEAN CORPUSCULAR HGB CONC 30.9 g/dL (32.0-36.0); MEAN CORPUSCULAR VOLUME 101 fl (80-97); MONOCYTES % (AUTO) 4.1 % (3-13); PLATELET COUNT 383 10^3/uL (150-450); RED CELL DISTRIBUTION WIDTH 17.1 % (11.5-14.0); SEGMENTED NEUTROPHILS % (AUTO) 51.5 % (42-78); TOTAL CELLS COUNTED % (AUTO) 100 %; WHITE BLOOD COUNT 12.4 10^3/uL (4.0-10.5)
--- NOTE | 2020-01-09 07:32 | RADIOLOGY REPORT (SQ) ---
EXAM DESCRIPTION: XR CHEST 1 VIEW COMPLETED DATE/TME: 01/09/2020 07:00 CLINICAL HISTORY: 8; SOB COMPARISON: 11/01/2019 FINDINGS: Single frontal radiograph view of the chest. Cardiomediastinal silhouette: Cardiomegaly. Prior median sternotomy. Left-sided multilead generator. Lungs: Decreased bilateral interstitial and airspace opacities. No pneumothorax. Possible small bilateral pleural effusions. Bones: Degenerative change of the spine. Upper abdomen: No abnormality identified. IMPRESSION: 1. Cardiomegaly. 2. Diffuse bilateral opacities. These findings could be seen with bilateral pneumonic process and may be related to pulmonary edema.
[2020-01-09 07:34] LABS: ANION GAP 17 (5-19); BLOOD UREA NITROGEN 28 mg/dL (7-20); CARBON DIOXIDE 22 mmol/L (22-30); CHLORIDE 106 mmol/L (98-107); GLUCOSE 317 mg/dL (75-110); POTASSIUM 4.7 mmol/L (3.6-5.0)
[2020-01-09 07:47] LABS: TROPONIN I 0.021 ng/mL
[2020-01-09] MEDS ORDERED: MORPHINE SULFATE 10 MG/ML INJ IV ONE (08:08)
[2020-01-09] MEDS: ASPIRIN 325 MG TABLET PO ONE ×2 (08:10→10:24)
[2020-01-09] MEDS ORDERED: AZITHROMYCIN INJ 500 MG VIAL IV ONE (08:14)
[2020-01-09] MEDS ORDERED: CEFTRIAXONE 1 GM/D5W RTU 1 GM/50 ML RTUPB IV ONE (08:14)
[2020-01-09] MEDS ORDERED: ONDANSETRON HCL INJ/PF 4 MG/2 ML SDV IV PRN (09:24)
[2020-01-09] MEDS ORDERED: GLUCAGON,HUMAN RECOMB 1 MG INJ SUBCUT PRN (09:24)
[2020-01-09] MEDS ORDERED: DEXTROSE 50%-WATER 25 GM/50 ML DISP.SYRIN IV PRN ×2 (09:24)
[2020-01-09] MEDS ORDERED: DEXTROSE 40% GEL 15 GM TUBE PO PRN ×2 (09:24)
[2020-01-09] MEDS: FUROSEMIDE INJ/PF 40 MG/4 ML SDV IV SCH ×2 (10:20→23:16)
[2020-01-09] MEDS: APIXABAN 2.5 MG TABLET PO SCH ×2 (10:22→18:54)
[2020-01-09] MEDS: SACUBITRIL/VALSARTAN 49 MG/51 MG TABLET PO SCH ×2 (10:22→18:55)
[2020-01-09] MEDS: METOPROLOL SUCCINATE 50 MG TAB.SR.24H PO SCH ×2 (10:23→23:14)
--- NOTE | 2020-01-09 15:27 | PDOC H&P ---
History of Present Illness Admission Date/PCP: 01/09/20 08:30 YI SANCHEZ DO History of Present Illness: FRANKI DEL ROSARIO is a 49 year old female with a history of systolic congestive heart failure with an EF of 20 to 25% who recently had a pacemaker and defibrillator placed. She has a history of hypertension with medication noncompliance. She presents now has shortness of breath. She said the onset was this morning. She says she woke up short of breath and called EMS. She has presented like this previously because she was not taking her medications as prescribed. She says that this time she has been taking her medications. We have not yet confirmed with her pharmacy that she has been getting them filled. She was hypoxic requiring BiPAP. She was not febrile. Her blood pressure was extremely high and she was started on a nitroglycerin drip. Her chest x-ray showed bilateral opacities. Her BNP was elevated. She did not display any peripheral edema. She was given some Lasix in the ER. She felt better after starting BiPAP. Past Medical History Cardiac Medical History: Reports: Atrial Fibrillation, Congestive Heart Failure, Coronary Artery Disease, Myocardial Infarction, Hyperlipidema, Hypertension Denies: DVT, Pulmonary Embolism Pulmonary Medical History: Reports: Bronchitis, Chronic Obstructive Pulmonary Disease (COPD), Intubation, Pneumonia, Respiratory Failure, Sleep Apnea Denies: Asthma Neurological Medical History: Denies: Seizures Endocrine Medical History: Denies: Diabetes Mellitus Type 1, Diabetes Mellitus Type 2, Hyperthyroidism, Hypothyroidism GI Medical History: Reports: Gastroesophageal Reflux Disease, Hepatitis Denies: Cirrhosis, Crohn's Disease, Hiatal Hernia, Ulcerative Colitis Musculoskeltal Medical History: Denies: Arthritis, Gout Skin Medical History: Denies: Eczema, Psoriasis Psychiatric Medical History: Reports: Depression Hematology: Reports: Anemia, Bleeding Tendencies - "On blood thinners" Infectious Medical History: Reports: Methicillin-Resistant Staph Aureus Past Surgical History Past Surgical History: Reports: Cardiac Catheterization - multiple, Section, Coronary Artery Bypass Graft - 2007, Coronary Stent - Multiple, Hysterectomy, Pacemaker - AICD, Tubal Ligation Denies: Mastectomy Social History Smoking Status: Unknown if Ever Smoked Frequency of Alcohol Use: Occasional Hx Recreational Drug Use: Yes Drugs: Marijuana Hx Prescription Drug Abuse: No Family History Family History: CAD, CVA, DM, Hypertension, Malignancy, Other - Kidney disease Parental Family History Reviewed: Yes Children Family History Reviewed: Yes Sibling(s) Family History Reviewed.: Yes Medication/Allergy Home Medications: Alprazolam [Xanax 0.5 mg Tablet] 0.5 mg PO Q6HP PRN 02/08/19 Atorvastatin Calcium [Lipitor 80 mg Tablet] 80 mg PO QHS 02/08/19 Paroxetine HCl [Paxil 20 mg Tablet] 20 mg PO DAILY 02/08/19 Oxycodone HCl/Acetaminophen [Percocet 7.5-325 mg Tablet] 1 each PO Q6HP PRN 06/24/19 Apixaban [Eliquis 2.5 mg Tablet] 2.5 mg PO Q12 #0 tablet 07/03/19 Buspirone HCl [Buspar 10 mg Tablet] 10 mg PO Q12 #0 tablet 07/03/19 Famotidine [Pepcid 20 mg Tablet] 20 mg PO Q12 tablet 07/03/19 Aspirin [Ecotrin 81 mg EC Tablet] 81 mg PO DAILY 07/10/19 Isosorbide Mononitrate [Imdur 30 mg Tablet.er] 30 mg PO QAM 07/10/19 Furosemide [Lasix 40 mg Tablet] 60 mg PO QAM 10/29/19 Melatonin [Melatonin 1 mg Tablet] 1 mg PO QHS 10/29/19 Metoprolol Succinate [Toprol Xl 25 mg Tab.sr] 50 mg PO Q12 10/29/19 Olopatadine HCl [Pazeo] 1 drop OU DAILY 10/29/19 Sacubitril/Valsartan [Entresto 49 mg/51 mg Tablet] 1 tab PO Q12 10/29/19 Aspirin [Ecotrin 81 mg EC Tablet] 81 mg PO DAILY 30 Days #30 tabec 11/06/19 Sacubitril/Valsartan [Entresto 49 mg/51 mg Tablet] 1 tab PO Q12 tablet 11/06/19 Allergies/Adverse Reactions: egg [Egg] Allergy (Verified 07/09/19 20:06) propoxyphene [From Darvocet-N] Allergy (Verified 07/09/19 20:06) amiodarone Adverse Reaction (Verified 07/09/19 20:06) Respiratory distress diphenhydramine HCl [From Benadryl] Adverse Reaction (Verified 07/09/19 20:06) chest pain, bigemeny rhythm Review of Systems All systems: reviewed and no additional remarkable complaints except as stated - All systems were reviewed and were negative except as noted in the HPI Physical Exam Vital Signs: Temp Pulse Resp BP Pulse Ox 98 F 18 138/81 H 100 01/09/20 12:51 01/09/20 14:01 01/09/20 14:01 01/09/20 14:01 Intake & Output 01/08/20 01/09/20 01/10/20 06:59 06:59 06:59 Intake Total 82 Output Total 780 Balance -698 Weight 106.594 kg General appearance: PRESENT: cooperative, disheveled, morbidly obese, other - Moderate distress Head exam: PRESENT: atraumatic, normocephalic Eye exam: PRESENT: EOMI, PERRLA. ABSENT: conjunctival injection, nystagmus, scleral icterus Ear exam: PRESENT: normal external ear exam Neck exam: PRESENT: full ROM. ABSENT: carotid bruit, JVD, lymphadenopathy, meningismus, tenderness, thyromegaly Respiratory exam: PRESENT: crackles, symmetrical, unlabored. ABSENT: accessory muscle use, chest wall tenderness, clear to auscultation renu, prolonged expiratory phas, rhonchi, tachypnea, wheezes Cardiovascular exam: PRESENT: RRR, +S1, +S2 Pulses: PRESENT: normal carotid pulses Vascular exam: PRESENT: normal capillary refill GI/Abdominal exam: PRESENT: normal bowel sounds, soft. ABSENT: distended, guarding, rebound, tenderness Extremities exam: PRESENT: pedal edema - Trace. ABSENT: clubbing Musculoskeletal exam: PRESENT: normal inspection. ABSENT: deformity Neurological exam: PRESENT: awake, oriented to person, oriented to place, oriented to situation, CN II-XII grossly intact. ABSENT: motor sensory deficit Psychiatric exam: PRESENT: flat affect Skin exam: PRESENT: dry, warm Results Laboratory Results: 01/09/20 06:44 01/09/20 06:44 01/09/20 01/09/20 06:44 06:44 WBC 12.4 H RBC 3.90 Hgb 12.2 Hct 39.4 MCV 101 H MCH 31.2 MCHC 30.9 L RDW 17.1 H Plt Count 383 Seg Neutrophils % 51.5 Sodium 144.8 Potassium 4.7 Chloride 106 Carbon Dioxide 22 Anion Gap 17 BUN 28 H Creatinine 1.95 H Est GFR ( Amer) 33 L Glucose 317 H Calcium 9.0 01/09/20 06:44 Troponin I 0.021 NT-Pro-B Natriuret Pep 4850 H Impressions: Chest X-Ray 01/09/20 06:29 IMPRESSION: 1. Cardiomegaly. 2. Diffuse bilateral opacities. These findings could be seen with bilateral pneumonic process and may be related to pulmonary edema. Assessment and Plan - Diagnosis (1) Hypertensive emergency Is this a current diagnosis for this admission?: Yes (2) Acute and chronic respiratory failure with hypoxia Is this a current diagnosis for this admission?: Yes (3) AICD (automatic cardioverter/defibrillator) present Is this a current diagnosis for this admission?: Yes (4) Acute on chronic systolic congestive heart failure, NYHA class 3 Is this a current diagnosis for this admission?: Yes (5) Acute pulmonary edema with congestive heart failure Is this a current diagnosis for this admission?: Yes (6) CAD (coronary artery disease) Qualifiers: Coronary Disease-Associated Artery/Lesion type: [place] artery [place] vs. transplanted heart: [place] heart Associated angina: without angina Qualified Code(s): I25.10 - Atherosclerotic heart disease of [place] coronary artery without angina pectoris Is this a current diagnosis for this admission?: Yes (7) CKD (chronic kidney disease) Qualifiers: Chronic kidney disease stage: stage 3 (moderate) Is this a current diagnosis for this admission?: Yes (8) COPD (chronic obstructive pulmonary disease) Qualifiers: COPD type: chronic bronchitis Chronic bronchitis type: simple Qualified Code(s): J41.0 - Simple chronic bronchitis Is this a current diagnosis for this admission?: Yes (9) Engages in non-nicotine containing substance vaping Is this a current diagnosis for this admission?: Yes (10) Longstanding persistent atrial fibrillation Is this a current diagnosis for this admission?: Yes (11) Morbid obesity Is this a current diagnosis for this admission?: Yes (12) RUBIN (obstructive sleep apnea) Is this a current diagnosis for this admission?: Yes - Plan Summary Summary: Continue BiPAP as needed. She said she is on 4 to 5 L of oxygen at home. We will get her back on her antihypertensive medications. We will continue nitroglycerin drip until we can get her blood pressure better controlled with oral medication. We will give her some scheduled doses of IV Lasix. We will monitor her renal function, urine output, and electrolytes. We will wean oxygen as tolerated. We will continue her home medications for her other comorbid conditions. - Time Time Spent with patient: 35 or more minutes Anticipated Discharge Disposition: Home, Self Care Anticipated Discharge Timeframe: Undetermined - Inpatient Certification Based on my medical assessment, after consideration of the patient's comorbidities, presenting symptoms, or acuity I expect that the services needed warrant INPATIENT care.: Yes I certify that my determination is in accordance with my understanding of Medicare's requirements for reasonable and necessary INPATIENT services [42 CFR 412.3e].: Yes Medical Necessity: Significant Comorbidiites Make Outpatient Treatment Too Risky, Need Close Monitoring Due to Risk of Patient Decompensation, Need For Continuous Telemetry Monitoring, Risk of Complication if Not Cared For in Hospital
--- NOTE | 2020-01-09 17:50 | EKG REPORT ---
SEVERITY:- ABNORMAL ECG - VENTRICULAR-PACED COMPLEXES : Confirmed by: Verna Frederick 09-Jan-2020 17:49:38
[2020-01-09] MEDS: ACETAMINOPHEN 325 MG TABLET PO PRN (20:03)
[2020-01-10] MEDS: NITROGLYCERIN/D5W 50 MG/250 ML RTUINJ IV PRN (05:14)
[2020-01-10] MEDS: ACETAMINOPHEN 325 MG TABLET PO PRN ×3 (06:31→20:58)
[2020-01-10 06:36] LABS: ANION GAP 12 (5-19); BLOOD UREA NITROGEN 41 mg/dL (7-20); CALCIUM 8.6 mg/dL (8.4-10.2); CARBON DIOXIDE 28 mmol/L (22-30); CHLORIDE 104 mmol/L (98-107); GLUCOSE 109 mg/dL (75-110); POTASSIUM 4.1 mmol/L (3.6-5.0)
[2020-01-10 07:54] LABS: HEMATOCRIT 32.2 % (36.0-47.0); HEMOGLOBIN 10.5 g/dL (12.0-15.5); MEAN CORPUSCULAR HEMOGLOBIN 31.6 pg (27.0-33.4); MEAN CORPUSCULAR HGB CONC 32.8 g/dL (32.0-36.0); PLATELET COUNT 230 10^3/uL (150-450); RED BLOOD COUNT 3.34 10^6/uL (3.72-5.28); RED CELL DISTRIBUTION WIDTH 16.1 % (11.5-14.0); WHITE BLOOD COUNT 12.6 10^3/uL (4.0-10.5)
[2020-01-10 08:07] LABS: MEAN CORPUSCULAR VOLUME 96 fl (80-97)
[2020-01-10] MEDS: ALPRAZOLAM 0.5 MG TABLET PO PRN ×2 (10:48→17:24)
[2020-01-10] MEDS: FAMOTIDINE 20 MG TABLET PO SCH ×2 (10:51→22:20)
[2020-01-10] MEDS: METOPROLOL SUCCINATE 50 MG TAB.SR.24H PO SCH ×2 (10:51→22:20)
[2020-01-10] MEDS: SACUBITRIL/VALSARTAN 49 MG/51 MG TABLET PO SCH ×2 (10:51→17:24)
[2020-01-10] MEDS: APIXABAN 2.5 MG TABLET PO SCH ×2 (10:51→17:24)
[2020-01-10] MEDS: BUSPIRONE HCL 10 MG TABLET PO SCH ×2 (10:51→22:20)
[2020-01-10] MEDS: PAROXETINE HCL 20 MG TABLET PO SCH (10:53)
[2020-01-10] MEDS: ISOSORBIDE MONONITRATE 30 MG TAB.ER.24H PO SCH (10:53)
--- NOTE | 2020-01-10 16:40 | PDOC PROGRESS REPORT ---
Subjective Date:: 01/10/20 Subjective:: No adverse events overnight. She has had excellent diuresis. Her breath sounds have improved. When I woke her up the first thing she asked for was her pain medication. We were able to take her off of the nitroglycerin drip. Reason For Visit: HYPERTENSIVE EMERGENCY,ACUTE ON CHRONIC SYSTOLIC Physical Exam Vital Signs: Temp Pulse Resp BP Pulse Ox 98.6 F 59 L 17 109/71 92 01/10/20 15:49 01/10/20 15:49 01/10/20 15:49 01/10/20 15:49 01/10/20 15:49 Intake & Output 01/09/20 01/10/20 01/11/20 06:59 06:59 06:59 Intake Total 390 555 Output Total 4380 500 Balance -3990 55 Weight 106.594 kg 107.8 kg General appearance: PRESENT: no acute distress, cooperative, disheveled, morbidly obese Respiratory exam: PRESENT: decreased breath sounds, symmetrical, unlabored. ABSENT: accessory muscle use, chest wall tenderness, prolonged expiratory phas, rhonchi, tachypnea, wheezes Cardiovascular exam: PRESENT: RRR, +S1, +S2 Pulses: PRESENT: normal carotid pulses Vascular exam: PRESENT: normal capillary refill GI/Abdominal exam: PRESENT: normal bowel sounds, soft. ABSENT: distended, guarding, rebound, tenderness Extremities exam: ABSENT: clubbing, pedal edema Musculoskeletal exam: PRESENT: normal inspection. ABSENT: deformity Neurological exam: PRESENT: awake, oriented to person, oriented to place, oriented to situation Psychiatric exam: PRESENT: flat affect Skin exam: PRESENT: dry, warm Results Laboratory Results: 01/10/20 07:31 01/10/20 04:49 01/10/20 01/10/20 01/10/20 04:49 04:49 07:31 WBC Cancelled 12.6 H RBC Cancelled 3.34 L Hgb Cancelled 10.5 L Hct Cancelled 32.2 L MCV Cancelled 96 D MCH Cancelled 31.6 MCHC Cancelled 32.8 RDW Cancelled 16.1 H Plt Count Cancelled 230 Sodium 144.3 Potassium 4.1 Chloride 104 Carbon Dioxide 28 Anion Gap 12 BUN 41 H Creatinine 2.10 H Est GFR ( Amer) 30 L Glucose 109 Calcium 8.6 01/09/20 06:44 Troponin I 0.021 NT-Pro-B Natriuret Pep 4850 H Impressions: Chest X-Ray 01/09/20 06:29 IMPRESSION: 1. Cardiomegaly. 2. Diffuse bilateral opacities. These findings could be seen with bilateral pneumonic process and may be related to pulmonary edema. Assessment and Plan - Diagnosis (1) Hypertensive emergency Is this a current diagnosis for this admission?: Yes (2) Acute and chronic respiratory failure with hypoxia Is this a current diagnosis for this admission?: Yes (3) AICD (automatic cardioverter/defibrillator) present Is this a current diagnosis for this admission?: Yes (4) Acute on chronic systolic congestive heart failure, NYHA class 3 Is this a current diagnosis for this admission?: Yes (5) Acute pulmonary edema with congestive heart failure Is this a current diagnosis for this admission?: Yes (6) CAD (coronary artery disease) Qualifiers: Coronary Disease-Associated Artery/Lesion type: [place] artery [place] vs. transplanted heart: [place] heart Associated angina: without angina Qualified Code(s): I25.10 - Atherosclerotic heart disease of [place] coronary artery without angina pectoris Is this a current diagnosis for this admission?: Yes (7) CKD (chronic kidney disease) Qualifiers: Chronic kidney disease stage: stage 3 (moderate) Is this a current diagnosis for this admission?: Yes (8) COPD (chronic obstructive pulmonary disease) Qualifiers: COPD type: chronic bronchitis Chronic bronchitis type: simple Qualified C ode(s): J41.0 - Simple chronic bronchitis Is this a current diagnosis for this admission?: Yes (9) Engages in non-nicotine containing substance vaping Is this a current diagnosis for this admission?: Yes (10) Longstanding persistent atrial fibrillation Is this a current diagnosis for this admission?: Yes (11) Morbid obesity Is this a current diagnosis for this admission?: Yes (12) RUBIN (obstructive sleep apnea) Is this a current diagnosis for this admission?: Yes - Plan Summary Summary: We have taken her off the nitroglycerin drip and got her switched over to a nasal cannula. The only thing we did for her blood pressure was put her back on the medications that are on her home list and her blood pressure is now very well controlled. I suspect she was not taking them at home. I have switched her Lasix to p.o. Her creatinine bumped a little bit today so we will see how that looks in the morning. - Time Time Spent with patient: 15-24 minutes Anticipated Discharge Disposition: Home with Home Health Anticipated Discharge Timeframe: within 72 hours
[2020-01-10] MEDS ORDERED: ATORVASTATIN CALCIUM 80 MG TABLET PO SCH (18:00)
--- OUTSIDE RECORDS SUMMARY | 2020-01-10 18:01 | XMS REPORT ---
:1970 [facility] [place] [address] [place] [address] Care Team Providers Name Role Phone DANIEL Primary Care Physician Unavailable MAGGIE MERA Attending Clinician Unavailable Daniel Attending Clinician Unavailable Samm Attending Clinician Unavailable Daniel Attending Clinician Unavailable MAGGIE MERA Admitting Clinician Unavailable Allergies, Adverse Reactions, Alerts Allergy Allergy Status Severity Reaction(s) Onset Inactive Treating C omments Name Type Date Date Clinician Hydrocodon Propensity Active 2019-02 e-Acetamin to adverse 0-21 ophen reactions 00:00: to drug 00 HYDROCODON Drug Active Unknown <Not 20200 E TANNATE allergy Supplied> 3-31 (Unknown) 00:00: 00 AMIODARONE Drug Inactive Unknown Respiratory 2019 allergy distress 8-15 (Unknown) 00:00: 00 DIPHENHYDR Drug Inactive Mild Dizziness 2018- AMINE HCL allergy 8-15 00:00: 00 HYDROCODON Drug Inactive Moderate 2019-0 E allergy 8-15 BITARTRATE 00:00: 00 PROPOXYPHE Drug Inactive Unknown <Not 2019-0 NE allergy Supplied> 8-15 (Unknown) 00:00: 00 EGG Drug Inactive Mild 2019-0 allergy 8-15 00:00: 00 ACETAMINOP Drug Inactive Moderate 2019-0 HEN allergy 8-15 00:00: 00 Diphenhydr Propensity Active Severe Palpitations Chest amine Hcl to adverse 6-05 byron n/disc reactions 00:00: omfort to drug 00 Egg Propensity Active Severe Swelling 2007- Does not to adverse 2-15 remem maya reactions 00:00: to drug 00 Medications Ordered Filled Start Stop Current Ordering Indication Dosage Frequency Signature Comments Components Medication Medication Date Date Medication? Clinician (SIG) Name Name levothyroxi 2019-02 No 25ug QD Take 1 Tab ne 0-25 by mouth (SYNTHROID, 00:00: daily at 6 LEVOXYL) 25 00 am. mcg Oral Tablet levothyroxi 2019-02 Yes 25ug QD Take 1 Tab ne 0-25 by mouth (SYNTHROID, 00:00: daily at 6 LEVOXYL) 25 00 am. mcg Oral Tablet levothyroxi 2019-02- No 25ug QD Take 1 Tab ne 0-25 10-24 by mouth (SYNTHROID, 00:00: 00:00 daily at 6 LEVOXYL) 25 00 :00 am. mcg Oral Tablet chlorhexidi 2019-02- Yes Q48H [Order 1 ne 0-24 10-30 Start] (HIBICLENS) 10:00: 09:59 Name: 4 % topical 00 :00 chlorhexid liquid ine (HIBICLENS ) 4 % topical liquid Signed Summary: Topical, EVERY 48 HOURS, First dose on 12/22/19 at 1000, For 3 doses
T opical, EVERY 48 HOURS&nbsp ;&nbsp ;for 3 doses, Bathe Patient on day 1, day 3, and day 5 of Mupirocin (Bactroban ) treatment. &nbs p;Obtain from [facility] [employer] < br> [Order 1 End] [Order 2 Start] Name: mupirocin (BACTROBAN ) 2 % ointment 1 Applicatio n Signed Summary: 1 Applicatio n, Topical, TWICE A DAY, First dose on 12/22/19 at 1000, For 10 doses
U se 1/4 inch onto sterile cotton tip applicator and swab inside of the nare.&nbsp ; Pre ss nare for 1 minute to release ointment.& nbsp;&nbsp ;Repeat instructio ns for other nare. Use separate cotton tip applicator per nare.& nbsp;&nbsp ;Use for five days.&nbsp ; (Pl ease send remainder home with patient).& amp;nbsp;& nbsp;Qty: 22 gram tube.&nbsp ; No refill.&nb sp; D o not use after:____ - -___ __. Dispensed by: & nbsp;
[Order 2 End] potassium 2019- 2020- No 20meq 20 mEq, chloride 0-24 10-24 Oral, (KLOR-CON 08:20: 09:44 ONCE, Sat M20) CR 00 :00 12/22/19 tablet 20 at 0820, mEq For 1 dose
Se rum Potassium 3.5-3.7 and may have a combinatio n of parenteral and enteral replacemen t
apixaban 2019-02 No 5mg Q.5D Take 2 (ELIQUIS) 0-24 Tabs by 2.5 mg Oral 00:00: mouth Tablet 00 twice a day. famotidine 2019-02 No 40mg Take 1 Tab (PEPCID) 40 0-24 by mouth mg Oral 00:00: at Tablet 00 bedtime. apixaban 2019-02 Yes 5mg Q.5D Take 2 (ELIQUIS) 0-24 Tabs by 2.5 mg Oral 00:00: mouth Tablet 00 twice a day. famotidine 2019-02 Yes 40mg Take 1 Tab (PEPCID) 40 0-24 by mouth mg Oral 00:00: at Tablet 00 bedtime. oxyCODONE-a 2019-02- No 1{tbl} Q6H Take 1 Tab cetaminophe 0-24 10-27 by mouth n 00:00: 23:59 every 6 (PERCOCET) 00 :00 hours as 7.5-325 mg needed for Oral Tablet Pain for up to 3 days. oxyCODONE-a 2019-02 2020- Yes 1{tbl} Q6H Take 1 Tab cetaminophe 0-24 10-27 by mouth n 00:00: 23:59 every 6 (PERCOCET) 00 :00 hours as 7.5-325 mg needed for Oral Tablet Pain for up to 3 days. famotidine 2019-02 2020- No 40mg Take 1 Tab (PEPCID) 40 0-24 10-24 by mouth mg Oral 00:00: 00:00 at Tablet 00 :00 bedtime. apixaban 2019-02 2020- No 5mg Q.5D Take 2 (ELIQUIS) 0-24 10-24 Tabs by 2.5 mg Oral 00:00: 00:00 mouth Tablet 00 :00 twice a day. ALPRAZolam 2019-02 2020- No .5mg 0.5 mg, (XANAX) 12-20 Oral, tablet 0.5 16:20: 16:24 ONCE, Fri mg 00 :00 12/21/19 at 1620, For 1 dose
Fa ll Risk Medication <br& gt; levothyroxi 2019-02- Yes 25ug QD 25 mcg, ne 12-20 Oral, (SYNTHROID, 14:35: 05:59 DAILY AT LEVOXYL) 00 :00 0600, tablet 25 First dose mcg on Tue12/21/19 at 1435, For 365 days
Ta ke on an empty stomach at least 30 minutes before food. Hold enteral nutrition 1 hour before and 1 hour after medication administra tion.&nbsp ; Adm inister antacids, cholestyra mine, or any medicine that contains calcium or iron at least 4 hours before or 4 hours after levothyrox ine.
vancomycin 2019-02- No 2917 1750mg Q24H 1,750 mg (VANCOCIN) 12-21 (15.7 1,750 mg in 14:00: 08:56 mg/kg), sodium 00 :44 Intravenou chloride s, at 0.9 % 500 285.7 mL IVPB mL/hr, Administer over 1.75 Hours, EVERY 24 HOURS, First dose on Tue12/21/19 at 1400, For 72 hours
I ndications : Bacteremia ondansetron 2019-02- Yes 4mg Q6H 4 mg (ZOFRAN) -22 (0.036 injection 4 09:53: 09:52 mg/kg), mg 42 :42 Intravenou s, EVERY 6 HOURS NEEDED, Nausea, Vomiting, Starting Tue12/21/19 at 0953, For 30 days
Do ses 4 mg or less can be administer ed IV push over 3-5 minutes.&n bsp; Doses over 4 mg should be diluted and infused over 15 minutes.&n bsp; &nbs p;
morphine 2 2019-02- No 2mg 2 mg mg/mL 12-20 (0.018 injection 2 09:53: 13:08 mg/kg), mg 42 :00 Intravenou s, EVERY 15 MINUTES NEEDED, Other, For Pain not relieved by oxycodone or Chest Painno t relieved by Nitroglyce rin x 24 hours, Starting Tue12/21/19 at 0953, For 2 doses
F all Risk Medication
lidocaine 2019-02- No 30mL 30 mL, PF 0-12-20 Subcutaneo (XYLOCAINE) 07:50: 09:00 us, ONCE, 10 mg/mL (1 00 :00 Fri %) 12/21/19 injection at 0750, 30 mL For 1 dose
EP Lab Only
fentaNYL 2019-02- No 25ug Q1D 25-100 mcg (SUBLIMAZE) 012-20 (0.225-0.8 injection 07:48: 13:47 99 25-100 mcg 34 :34 mcg/kg), Intravenou s, NEEDED, During EP Lab Procedure Only, Starting Tue12/21/19 at 0748, For 6 hours
F all Risk Medication
midazolam 2019-02- No 1mg Q1D 1-4 mg (PF) 012-20 (0.88209-0 (VERSED) 07:48: 13:47 .93794 injection 31 :31 mg/kg), 1-4 mg Intravenou s, NEEDED, During EP Lab Procedure Only, Starting Tue12/21/19 at 0748, For 6 hours
F all Risk Medication
potassium 2019-02- No 20meq 20 mEq, chloride 012-20 Oral, (KLOR-CON 07:35: 10:42 ONCE, Tue M20) CR 00 :00 12/21/19 tablet 20 at 0735, mEq For 1 dose
Se rum Potassium 3.5-3.7 and may have a combinatio n of parenteral and enteral replacemen t
oxyCODONE 2019-02- Yes 5mg Q4H 5 mg, (ROXICODONE 0-22 Oral, ) immediate 00:05: 00:04 EVERY 4 release 00 :00 HOURS tablet 5 mg NEEDED, Severe Pain, Unrelieved Pain, Starting Tue12/21/19 at 0005, For 720 hours
F ALL RISK MEDICATION .
melatonin 2019-02- Yes 5mg 5 mg, tablet Tab 0-12-19 Oral, AT 5 mg 22:00: 21:59 BEDTIME, 00 :00 First dose on Angela 12/20/19 at 2200, For 365 days fluticasone 2019-02- Yes 1{spray QD 1 [place], propionate 012-19 } Nasal, (FLONASE) 12:05: 09:59 DAILY, 50 00 :00 First dose mcg/actuati on Angela on nasal 12/20/19 spray 1 at 1205, [place] For 365 days
Us e for Flonase Nasal. Shake gently.&nb sp; O rdered dose is per each nostril.<b r> PARoxetine 2019-02- Yes 20mg QD 20 mg, (PAXIL) 012-19 Oral, tablet 20 10:00: 09:59 DAILY, mg 00 :00 First dose on Angela 12/20/19 at 1000, For 365 days
Fa ll Risk Medication
sacubitriL- 2019-02- Yes 1{tbl} Q.5D 1 Tab, valsartan 12-19 Oral, (Entresto) 10:00: 09:59 TWICE A 49-51 mg 00 :00 DAY, First per tablet dose on 1 Tab Angela 12/20/19 at 1000, For 365 days
Do not crush or chew.
metoprolol 2019-02- Yes 50mg QD 50 mg, succinate 012-19 Oral, XL 10:00: 09:59 DAILY, (TOPROL-XL) 00 :00 First dose 24 hr on Angela tablet 50 12/19/20 mg at 1000, For 365 days
Do NOT crush, break, or chew.
isosorbide 2019-02- Yes 30mg QD 30 mg, mononitrate 012-19 Oral, (IMDUR) 24 10:00: 09:59 DAILY, hr tablet 00 :00 First dose 30 mg on Angela 12/20/19 at 1000, For 365 days
Do NOT chew or crush. Tablet may be halved if needed.
atorvastati 2019-02- Yes 80mg QD 80 mg, n (LIPITOR) 12-19 Oral, tablet 80 10:00: 21:59 DAILY, mg 00 :00 First dose on Angela 12/20/19 at 1000, For 365 days aspirin 2019-02- Yes 81mg QD 81 mg, (GABY 12-19 Oral, CHILDRENS 10:00: 09:59 DAILY, ASPIRIN) 00 :00 First dose chewable on [facility] tablet 81 12/20/19 mg at 1000, For 365 days
Gi ve with food and a full glass of water to reduce GI upset.&nbs p;
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
In dications: Perioperat nuvia Prophylaxi s acetaminoph 2019-02- Yes 325mg Q6H 325 mg, en 01-18 Oral, (TYLENOL) 03:42: 03:41 EVERY 6 tablet 325 50 :50 HOURS mg NEEDED, Mild Pain, Starting Angela 12/20/19 at 0342, For 720 hours oxyCODONE 2019-02- No 7.5mg Q6H 7.5 mg, (ROXICODONE 12-20 Oral, ) immediate 03:41: 00:04 EVERY 6 release 46 :46 HOURS tablet 7.5 NEEDED, mg Severe Pain, Unrelieved Pain, Starting Angela 12/20/19 at 0341, For 365 days
FA LL RISK MEDICATION .
famotidine 2019-02- Yes 40mg Q.5D 40 mg, (PEPCID) 12-18 Oral, tablet 40 00:40: 21:59 TWICE A mg 00 :00 DAY, First dose (after last modificati on) on Angela 12/20/19 at 0040, For 365 days
Dissolve in 5-10 ml sterile water for tube administra tion.
furosemide 2019-02- Yes 80mg Q.5D 80 mg, (LASIX) 12-18 Oral, tablet 80 00:40: 21:59 TWICE A mg 00 :00 DAY, First dose (after last modificati on) on Tue12/20/19 at 0040, For 365 days
Fall Risk Medication
apixaban 2019-02- Yes 5mg Q.5D 5 mg, (ELIQUIS) 12-18 Oral, tablet 5 mg 00:40: 21:59 TWICE A 00 :00 DAY, First dose on [facility] 12/20/19 at 0040, For 365 days melatonin 2019-02- No 1mg 1 mg, tablet 1 mg 12-19 Oral, AT 00:40: 03:53 BEDTIME, 00 :53 First dose on [facility] 12/20/19 at 0040, For 365 days fentaNYL 2019-02- No 50ug 50 mcg (SUBLIMAZE) 12-18 (0.452 injection 22:45: 22:59 mcg/kg), 50 mcg 00 :00 Intravenou s, ED ONCE, 12/19/19 at 2245, For 1 dose
Fa ll Risk Medication
azithromyci 2019-02- No 1698 500mg 500 mg, n 12-19 Intravenou (ZITHROMAX) 21:30: 00:07 s, at 250 500 mg in 00 :00 mL/hr, sodium Administer chloride over 1 0.9 % 250 Hours, mL IVPB ONCE, 12/19/19 at 2130, For 1 dose
Indicatio ns: Lower Respirator y Infections cefTRIAXone 2019-02- No 1698 2g 2 g (ROCEPHIN) 12-18 (0.0181 2 g in 21:30: 22:35 g/kg), sodium 00 :00 Intravenou chloride s, at 200 MBP 0.9% mL/hr, 100 mL IVPB Administer over 30 Minutes, ED ONCE, Tue12/19/19 at 2130, For 1 dose
Ac tivate Mini-Bag Plus vial prior to patient infusion.& nbsp;Do not co-adminis ter with IV calcium products.< br>Indicat ions: Lower Respirator y Infections aspirin 2019-02 324mg 324 mg, (GABY 0-18 12- Oral, ED CHILDRENS 21:30: 22:08 ONCE, Tue ASPIRIN) 00 :00 12/19/19 chewable at 2130, tablet 324 For 1 mg dose
Gi ve with food and a full glass of water to reduce GI upset.&nbs p;
fentaNYL 2019-02 50ug 50 mcg (SUBLIMAZE) 12-18 (0.452 injection 21:30: 21:32 mcg/kg), 50 mcg 00 :00 Intravenou s, ED ONCE, Tue12/19/19 at 2130, For 1 dose
Fa ll Risk Medication
amiodarone No 200mg QD Take 1 Tab (PACERONE) 8-21 by mouth 200 mg Oral 00:00: daily. Tablet 00 metoprolol No [id number] 50mg QD Take 1 Tab succinate 8-21 by mouth XL 00:00: daily. (TOPROL-XL) 00 50 mg Oral Tablet Sustained Release 24HR metoprolol Yes [id number] 50mg QD Take 1 Tab succinate 8-21 by mouth XL 00:00: daily. (TOPROL-XL) 00 50 mg Oral Tablet Sustained Release 24HR amiodarone Yes 200mg QD Take 1 Tab (PACERONE) 8-21 by mouth 200 mg Oral 00:00: daily. Tablet 00 aspirin No 81mg QD Take 1 Tab (GABY 4-26 by mouth CHILDRENS 00:00: daily. ASPIRIN) 81 00 mg Oral Tablet, Chewable melatonin 1 No 1mg Take 1 Tab mg Oral 4-26 by mouth Tablet 00:00: at 00 bedtime. melatonin 1 Yes 1mg Take 1 Tab mg Oral 4-26 by mouth Tablet 00:00: at 00 bedtime. aspirin Yes 81mg QD Take 1 Tab (GABY 4-26 by mouth CHILDRENS 00:00: daily. ASPIRIN) 81 00 mg Oral Tablet, Chewable apixaban 2020- No 5mg Q.5D Take 1 Tab (ELIQUIS) 5 4-26 10-23 by mouth mg Oral 00:00: 00:00 twice a Tablet 00 :00 day. atorvastati No 80mg QD Take 1 Tab n (LIPITOR) 6-08 by mouth 80 mg Oral 00:00: daily. Tablet 00 isosorbide No 60mg QD Take 1 Tab mononitrate 6-08 by mouth ER (IMDUR) 00:00: daily. 60 mg Oral 00 Tablet Sustained Release 24HR isosorbide Yes 60mg QD Take 1 Tab mononitrate 6-08 by mouth ER (IMDUR) 00:00: daily. 60 mg Oral 00 Tablet Sustained Release 24HR atorvastati Yes 80mg QD Take 1 Tab n (LIPITOR) 6-08 by mouth 80 mg Oral 00:00: daily. Tablet 00 furosemide No 20mg Q.5D Take 20 mg (LASIX) 20 by mouth mg Oral twice a Tablet day. PARoxetine No 20mg QD Take 20 mg (PAXIL) 20 by mouth mg Oral every Tablet morning. sacubitriL- No 1{tbl} Q.5D Take 1 Tab valsartan by mouth (Entresto) twice a 49-51 mg day. Do Oral Tablet not crush or chew. nitroglycer No .4mg take 0.4 in SL mg under (NITROSTAT) tongue 0.4 mg SL Every 5 Subl minutes as needed for Chest pain. nitroglycer Yes .4mg take 0.4 in SL mg under (NITROSTAT) tongue 0.4 mg SL Every 5 Subl minutes as needed for Chest pain. furosemide Yes 20mg Q.5D Take 20 mg (LASIX) 20 by mouth mg Oral twice a Tablet day. sacubitriL- Yes 1{tbl} Q.5D Take 1 Tab valsartan by mouth (Entresto) twice a 49-51 mg day. Do Oral Tablet not crush or chew. PARoxetine Yes 20mg QD Take 20 mg (PAXIL) 20 by mouth mg Oral every Tablet morning. acetaminoph 2019- No 1000mg Q6H Take 1,000 en 10-24 mg by (TYLENOL) 00:00 mouth 500 mg Oral :00 every 6 Tablet hours as needed for Pain. famotidine 2020- No 40mg Q.5D Take 40 mg (PEPCID) 40 10-24 by mouth mg Oral 00:00 twice a Tablet :00 day. apixaban 2020- No 2.5mg Q.5D Take 2.5 (ELIQUIS) 10-24 mg by 2.5 mg Oral 00:00 mouth Tablet :00 twice a day. lisinopril 2020- No 40mg QD Take 40 mg (PRINIVIL,Z 10-23 by mouth ESTRIL) 40 00:00 daily. mg Oral :00 Tablet sertraline 2020- No 25mg QD Take 25 mg (ZOLOFT) 25 10-23 by mouth mg Oral 00:00 daily. Tablet :00 Problems Condition Condition Condition Status Onset Resolution Last Treatin g Comments Name Details Category Date Date Treatment Clinician Date HTN HTN [id number] Active 2019-02 (hypertensi (hypertensi 0-21 on) on) 00:00: 00 Chronic Chronic 14723141 Active 2019-02 atrial atrial 0-21 fibrillatio fibrillatio 00:00: n n 00 Depression Depression 79011460 Active [place]: with with 08-30 Last anxiety anxiety 00:00: Assessme n 00 t & Plan : - possibly playing a role in her drug abuse - started low dose zoloft which patient was agreeabl e to Coronary Coronary [id number] Active Overv iew: artery artery 08-28 Last disease disease 00:00: Assessme n involving involving 00 t & Plan: [place] S/p CABG coronary coronary 2007, BMS artery of artery of to L Cx [place] 2008, IC D heart with heart with 20 10 angina angina (replace d pectoris pectoris 2012) Trop elevated to 1.5 o n admissio n - plateaue d . Possibly demand related - stress test revealed no ischemia and stable EF. Resume aspirin at discharg e with other cardiopr o tective medicati o ns Polysubstan Polysubstan [id number] Active Overview: ce abuse ce abuse 08-28 Last 00:00: Assessme n 00 t & Plan : Cocaine and THC noted on admissio n urine drug screen Substanc e abuse an d Psychiat r y team have see n Counsele d on importan c e of cessatio n which continue d use can lead to decompen s ation in her cardiac conditio n leading to . Systolic Systolic [id number] Active heart heart 06-23 failure failure 00:00: 00 CKD CKD 41650055 Active (chronic (chronic 06-19 kidney kidney 00:00: disease), disease), 00 stage III stage III ACS (acute ACS (acute 25247386 Active L ast coronary coronary 08-02 Assess men syndrome) syndrome) 00:00: t & Plan: 00 Assessme n t: Patient with history of CAD. Not currentl y complain i ng of rest or exertion a l chest pain. Stable. Plan - Continue current medical therapy Schizophren Schizophren 55413658 Active 2013-02 ia ia 03-23 00:00: 00 Hyperlipide Hyperlipide 46602854 Active 2013-02 carmenza carmenza 03-23 00:00: 00 AICD AICD 12669845 Active 2013-02 Overvie w: (automatic (automatic 03-23 Im plant cardioverte cardioverte 00:00: data: R. r/defibrill r/defibrill 00 Nekkanti ator) ator) Date of present present Implant: MEDTRONIC MEDTRONIC 12/30 INVESTMENT SPECIALIST INVESTMENT SPECIALIST 4 INVESTMENT SPECIALIST-D generato r : Serial number: [id number] H Model: Medtroni c VIVA [id number] Programm i ng Data Pacing Mode: DD D LRL :60 BPM URL: 140 BPM Programm e d ventricu l ar sensitiv i ty :0.3 mV Programm i ng of Shock therapie s : VF zone: Detectio n rate 188 bpm Last Assessme n t & Plan : Assessme n t: Reviewed in detai l the reasons she is likely t o have continue d pain ove r the ICD site. Sh e does admit th e pain is improvin g . I also showed her the latest CXR whic h shows he r leads an d implante d device. Plan - Reassura n ce - I'v e arranged for her to have follow-u p appointm e nt in IC D clinic AICD at end AICD at end [id number] Resolve 2019-022019-12-22 2019-12-22 of battery of battery d 0-21 00:00:00 09:38:51 life life 00:00: 00 CAP CAP [id number] Resolve 2019-022019-12-22 2019-12-22 (community (community d 0-21 00:00:00 09:38:58 acquired acquired 00:00: pneumonia) pneumonia) 00 ARF (acute ARF (acute [id number] Resolve 2017-06-23 2017-06-23 respiratory respiratory d 06-19 00:00:00 10:11:13 failure) failure) 00:00: 00 Ventricular Ventricular 79303636 Resolve 2017-06-23 2017-06-23 tachycardia tachycardia d 06-19 00:00:00 10:11:14 00:00: 00 Acute on Acute on [id number] Resolve 2013-022017-06-23 2017-06-23 chronic chronic d 03-23 00:00:00 10:11:21 systolic systolic 00:00: congestive congestive 00 heart heart failure failure SOB SOB [id number] Resolve 2013-022017-06-19 2017-06-19 (shortness (shortness d 03-23 00:00:00 12:17:49 of breath) of breath) 00:00: 00 Procedures Procedure Date / Time Performed Performing Clinician Devic e EKG 12 LEAD 2019-12-22 05:17:51 Kassy Damon MAGNESIUM 2019-12-22 04:29:00 Carla Herrera BASIC METABOLIC PANEL 2019-12-22 04:29:00 Carla Herrera CBC WITHOUT DIFFERENTIAL 2019-12-22 04:29:00 Carla Herrera EKGSCAN 2019-12-22 00:00:00 Unassigned, Doctor HEPATIC FUNCTION PANEL 2019-12-21 04:28:00 Em Valenciasy Renzo a MAGNESIUM 2019-12-21 04:28:00 Carla Herrera BASIC METABOLIC PANEL 2019-12-21 04:28:00 Carla Herrera T4, FREE 2019-12-21 04:28:00 Jackie Valencia Abela CBC WITHOUT DIFFERENTIAL 2019-12-21 04:28:00 Carla Herrera TSH WITH REFLEX TO FREE T4 2019-12-21 04:28:00 Jackie Valencia Abela MRSA ADMIT SCREEN 2019-12-20 23:21:00 NannetteBurak monte MAGNESIUM 2019-12-20 04:59:00 Carla Herrera BASIC METABOLIC PANEL 2019-12-20 04:59:00 Carla Herrera TROPONIN I 2019-12-20 04:59:00 Alejo Miranda CBC WITHOUT DIFFERENTIAL 2019-12-20 04:59:00 Carla Herrera EKG 12 LEAD 2019-12-20 04:17:33 Alejo Miranda EKGSCAN 2019-12-20 00:00:00 Unassigned, Doctor POTASSIUM 2019-12-19 22:08:00 Fabrice Allen FOLATE 2019-12-19 22:08:00 Alejo Miranda VITAMIN B12 2019-12-19 22:08:00 Alejo Miranda TROPONIN I 2019-12-19 22:08:00 Hermila Real CULTURE, BLOOD 2019-12-19 22:08:00 Fabrice Allen RAPID MOLECULAR IDENTIFICATION 2019-12-19 22:08:00 Fabrice Allen RESPIRATORY PCR PANEL 2019-12-19 22:08:00 Fabrice Allen (INCLUDES COVID-19/FLU) STAT TROPONIN I 2019-12-19 20:20:00 Hermila Real XRAY CHEST 2 VIEWS 2019-12-19 17:34:19 Hermila Realdra BASIC METABOLIC PANEL 2019-12-19 16:42:00 Hermila Realdra TROPONIN I 2019-12-19 16:42:00 Farhan, Hermila Isaacsdra BNP 2019-12-19 16:42:00 Fabrice Allen CBC WITH DIFFERENTIAL 2019-12-19 16:42:00 Farhan, Hermila Portilloa CBC WITH DIFFERENTIAL 2019-12-19 16:42:00 FarhanHermila garcia Fiona EKG 12 LEAD 2019-12-19 16:35:28 FarhanGurjit garciale Fiona EKGSCAN 2019-12-19 00:00:00 Unassigned, Doctor OFFICE/OUTPATIENT VISIT EST 2019-11-07 15:30:00 [facility] MED/CURRENT MED MERGE 2019-11-07 15:30:00 OFFICE/OUTPATIENT VISIT EST 2019-07-18 11:30:00 [facility] MED/CURRENT MED MERGE 2019-07-18 11:30:00 [facility] MED/CURRENT MED MERGE 2019-06-12 15:30:00 [facility] MED/CURRENT MED MERGE 2019-03-28 16:15:00 OFFICE/OUTPATIENT VISIT EST 2019-03-28 16:15:00 [facility] MED/CURRENT MED MERGE 2018-08-25 11:00:00 OFFICE/OUTPATIENT VISIT EST 2018-08-25 11:00:00 [facility] MED/CURRENT MED MERGE 2018-07-28 11:00:00 OFFICE/OUTPATIENT VISIT EST 2018-07-28 11:00:00 OFFICE/OUTPATIENT VISIT EST 2018-01-11 11:00:00 OFFICE/OUTPATIENT VISIT EST 2017-12-28 10:30:00 OFFICE/OUTPATIENT VISIT EST 2017-08-01 14:30:00 Results Test Description Test Time Test Comments Text Results Atomic Results Result Comments EKG 12 LEAD 2019-12-22 11:25:00 Test Item Value Reference Range Comments EKG Text (test code = 344317) [facility] -Atrial-ventricular dual-paced complexesother complexes also detectedWhen compared with ECG of 20-Dec-2019 4:17:33,No significant changeReading Physician 23811&Sd Heart Rate (test code = 251489) 60 P-R Interval (test code = 153 733258) P [place] (test code = 423914) -8 QRS Duration (test code = 166 354968) QT Internal (test code = 979101) 566 QTcB (test code = 089031) 566 QRS [place] (test code = 059890) 187 I-40 [place] (test code = 834123) 216 T-40 [place] (test code = 780190) 55 T Wave [place] (test code = 841919) 224 ST [place] (test code = 968709) 264 CULTURE, [id number] 08:36:00 Test Item Value Reference Range Comments Blood Culture (test code = Staphylococcus hominis 600-7) Gram Stain (test code = 664-3) Gram positive cocci in clusters Lab Interpretation (test code Abnormal = 93899-9) BASIC METABOLIC [id number] 05:28:00 Test Item Value Reference Range Comments BUN (test code = 3094-0) 19 mg/dL 7-19 Sodium (test code = 2951-2) 141 mEq/L 136 - 145 mEq/L Potassium (test code = 2823-3) 3.7 mEq/L 3.4 - 4.4 mEq/L Chloride (test code = 2075-0) 100 mEq/L 98 - 107 mEq/L CO2 (test code = 8-9) 28 mEq/L 22 - 29 mEq/L Anion Gap (test code = 04581-8) 13 mEq/L 4 - 12 mEq/L Glucose (test code = 2345-7) 119 mg/dL 70-105 Creatinine (test code = 2160-0) 1.72 mg/dL 0.57-1.11 Glomerular Filtration Rate (test code 40 mL/Min/1.73 m2 >=59 mL/ Min/1.73 m2 = 94431-2) Calcium (test code = 35970-0) 8.7 mg/dL 8.4-10.2 Osmo (Calc'd) (test code = 60372-3) 296 mOsm/kg mOsm/kg Bun:Creat Ratio (test code = 3097-3) 11.05 Lab Interpretation (test code = Abnormal 81431-5) [id number] 05:28:00 Test Item Value Reference Range Comments Magnesium (test code = 26867-6) 1.8 mg/dL 1.6-2.6 Lab Interpretation (test code = 72262-5) Normal CBC WITHOUT [id number] 05:03:00 Test Item Value Reference Range Comments WBC (White Blood Cell Count) (test code = 5.42 k/uL 4.50 - 11.00 k/uL 6690-2) RBC (Red Blood Cell Count) (test code = 3.53 M/uL 3.80 - 5 .20 M/uL 789-8) Hemoglobin (test code = 718-7) 10.8 g/dL 12-16 Hematocrit (test code = 4544-3) 36.0 % 35-47 MCV (Mean Corpuscular Volume) (test code = 102.0 fL 80-10 0 787-2) MCH (Mean Corpuscular Hemoglobin) (test code 30.6 pg 26- 34 = 785-6) MCHC (Mean Corpuscular Hemoglobin 30.0 g/dL 32-36 Concentration) (test code = 786-4) RDW (Red Cell Distribution Width) (test code 15.9 % 11. 5-14.5 = 788-0) Platelet Count (test code = 777-3) 266 k/uL 150 - 440 k/u L MPV (Mean Platelet Volume) (test code = 9.9 fL 7.4-10.6 06515-2) Nucleated RBC (test code = 01918-6) 0.0 /100 WBC 0 /100 WBC Absolute Nucleated RBC (#) (test code = <0.01 0 k/uL 771-6) Lab Interpretation (test code = 66973-7) Abnormal MRSA ADMIT [id number] 11:54:00 Test Item Value Reference Range Comments MRSA DNA (PCR) (test code = 28980-1) Positive Negative MARIELOS (test code = MARIELOS) Lab Interpretation (test code = 29882-1) Abnormal T4, [id number] 06:33:00 Test Item Value Reference Range Comments Free T4 (test code = 3024-7) 1.01 ng/dL 0.7-1.48 Lab Interpretation (test code = 98802-4) Normal TSH WITH REFLEX TO FREE [id number] 05:59:00 Test Item Value Reference Range Comments TSH (High Sensitive) (test code = 41106-2) 7.45 uIU/mL 0.35 - 4.94 uIU/mL Lab Interpretation (test code = 68962-9) Abnormal HEPATIC FUNCTION [id number] 05:49:00 Test Item Value Reference Range Comments Albumin (test code = 1751-7) 3.8 g/dL 3.5-5.2 Bilirubin, Total (test code = 1974-2) 0.9 mg/dL 0.1-1.2 Bilirubin, Direct (test code = 1967-7) 0.4 mg/dL <=0.5 Alk Phosphatase (test code = 6768-6) 79 U/L 40-150 SGOT (AST) (test code = 1920-8) 13 U/L 5-34 SGPT (ALT) (test code = 1742-6) 11 U/L 0-55 Protein, Total (test code = 2885-2) 6.8 g/dL 6.4-8.3 Bilirubin, Indirect (test code = 1971-1) 0.5 mg/dL Globulin (Calc'd) (test code = 13465-8) 3.0 g/dL A:G Ratio (test code = 1759-0) 1.27 RAPID MOLECULAR [id number] 21:23:00 Test Item Value Reference Range Comments Organism Identification Staphylococcus species, not No Verigene organisms (test code = 92529-2) S. aureus, S. epidermidis, and/or resistan ce or S. lugdunensis markers detected MARIELOS (test code = MARIELOS) Lab Interpretation (test Abnormal code = 85043-6) TROPONIN [id number] 06:07:00 Test Item Value Reference Range Comments Troponin I (test code = 75060-3) 0.03 ng/mL <=0.03 Lab Interpretation (test code = 47767-4) Normal [id number] 02:29:00 Test Item Value Reference Range Comments Folate (test code = 2284-8) 9.6 ng/mL See Comment Ariana te Reference Ranges: Normal: >5.4 ng/mL Indetermin ant: 3.4-5.4 ng/mL Deficient: <3.4 ng/mL VITAMIN [id number] 02:29:00 Test Item Value Reference Range Comments Vitamin B12 (test code = 2132-9) 400 pg/mL 213-816 Lab Interpretation (test code = 58431-2) Normal RESPIRATORY PCR PANEL (INCLUDES COVID-19/FLU) [id number] 00:13:00 Test Item Value Reference Range Comments Adenovirus (test code = 05905-8) Not Detected Not Detected Coronavirus (229E, HKU1, NL63, OC43) (test code Not Detected Not Detected = 18068-2) YRKU-Godxgstrujq-9 (CoVID-19 Virus) (test code Not Detected N ot Detected = 28559-2) Human Metapneumovirus (test code = 47735-5) Not Detected Not Detected Human Rhinovirus/Enterovirus (test code = Not Detected Not De tected 40070-8) Influenza A (test code = 56415-5) Not Detected Not Detected Influenza A/H1 (test code = 97324308358) Not Detected Not Det ected Influenza A/H1-2009 (test code = 33459085799) Not Detected No t Detected Influenza A/H3 (test code = 87312629342) Not Detected Not De tected Influenza B (test code = 16746-8) Not Detected Not Detected Parainfluenza virus 1 (test code = 79340-4) Not Detected Not Detected Parainfluenza virus 2 (test code = 22639-7) Not Detected Not Detected Parainfluenza virus 3 (test code = 65986-3) Not Detected Not Detected Parainfluenza virus 4 (test code = 90526-8) Not Detected Not Detected Respiratory Syncytial Virus A (test code = Not Detected Not D etected 06189-3) Respiratory Syncytial Virus B (test code = Not Detected Not D etected 66103-8) Chlamydia pneumoniae (test code = 13880-8) Not Detected Not D etected Mycoplasma pneumoniae (test code = 99588-6) Not Detected Not Detected MARIELOS (test code = MARIELOS) Lab Interpretation (test code = 07817-6) Normal [id number] 22:44:00 Test Item Value Reference Range Comments Potassium (test code = 2823-3) 3.8 mEq/L 3.4 - 4.4 mEq/L Lab Interpretation (test code = 92047-0) Normal [id number] 22:17:00 Test Item Value Reference Range Comments Brain Natr Peptide (test code = 18287-0) 546 pg/mL <=100 Lab Interpretation (test code = 43614-8) Abnormal XRAY CHEST 2 [id number] 17:39:00Impression: Cardiomegaly. Right base pulmonary opacity suggesting pneumonia versus fibrosis. ReadingDoctor: Gallo DomingoElectronic Signature by: Mayte Domingo view chest Clinical Information: Defibrillator problems. Left chest pain. Comparison: 06/19/2017. 08/03/2014. Findings: Both a PA and lateral projection chest were obtained. Heart size is moderately enlarged. Pulmonary vasculature is at theupper limits normal. Postsurgical mediastinal changes and a left-sided AICD are again identified. The re is ill-defined pulmonary opacity present within the right lower lobe consistent with pneumonia, new in comparison to 08/03/2014. The left lung appears clear. Interface, Radresults_Incoming - 12/19/2019 5:43 PM EDTTwo view chest Clinical Information: Defibrillator problems. Left chest pain. Comparison: 06/19/2017. 08/03/2014. Findings: Both a PA and lateral projection chest were obtained. Heart size is moderately enlarged. Pulmonary vasculature is at the upper limits normal. Postsurgical mediastinal changes and a left-sided AICD are again identified. There is ill-defined pulmonary opacity present within the right lower lobe consistent with pneumonia, new in comparison to 08/03/2014. The left lung appears clear. IMPRESSION Impression: Cardiomegaly. Right base pulmonary opacity suggesting pneumonia versus fibrosis. Reading Doctor: Gallo Domingo Electronic Signature by: Gallo DomingoN[facility] WITH [id number] 17:06:00 Test Item Value Reference Range Comments WBC (White Blood Cell Count) (test code = 5.15 k/uL 4.50 - 11.00 k/uL 6690-2) RBC (Red Blood Cell Count) (test code = 3.41 M/uL 3.80 - 5 .20 M/uL 789-8) Hemoglobin (test code = 718-7) 10.6 g/dL 12-16 Hematocrit (test code = 4544-3) 35.0 % 35-47 MCV (Mean Corpuscular Volume) (test code = 102.6 fL 80-10 0 787-2) MCH (Mean Corpuscular Hemoglobin) (test code 31.1 pg 26- 34 = 785-6) MCHC (Mean Corpuscular Hemoglobin 30.3 g/dL 32-36 Concentration) (test code = 786-4) RDW (Red Cell Distribution Width) (test code 16.2 % 11. 5-14.5 = 788-0) Platelet Count (test code = 777-3) 284 k/uL 150 - 440 k/u L MPV (Mean Platelet Volume) (test code = 9.8 fL 7.4-10.6 76658-2) Nucleated RBC (test code = 63916-3) 0.0 /100 WBC 0 /100 WBC Absolute Nucleated RBC (#) (test code = <0.01 0 k/uL 771-6) Neutrophils (%) (test code = 35774-6) 54 % Lymphocytes (%) (test code = 736-9) 37 % Monocytes (%) (test code = 5905-5) 8 % Eosinophils (%) (test code = 713-8) 0 % Basophils (%) (test code = 706-2) 1 % Immature Granulocytes (%) (test code = 0 % 11987-6) Absolute Neutrophils (#) (test code = 2.74 k/uL 1.80 - 7.7 0 k/uL 13081-5) Absolute Lymphocytes (#) (test code = 731-0) 1.90 k/uL 1.0 0 - 4.80 k/uL Absolute Monocytes (#) (test code = 742-7) 0.43 k/uL 0.00 - 0.80 k/uL Absolute Eosinophils (#) (test code = 711-2) 0.02 k/uL 0.0 0 - 0.50 k/uL Absolute Basophils (#) (test code = 704-7) 0.04 k/uL 0.00 - 0.20 k/uL Absolute Immature Granulocytes (#) (test code 0.02 k/uL 0 k/uL = 42153-2) Lab Interpretation (test code = 64838-3) Abnormal TROUGH VANCOMYCIN\[id number] 10:32:00 Test Item Value Reference Range Comments TROUGH DRAW TIME (test code = TD) 1032 VANCOMYCIN,TROUGH (test code = TVANC) 17.3 ug/mL 5.0-20.0 CBC WITH DIFF\[id number] 10:08:00 Test Item Value Reference Range Comments EOSINOPHILS % (AUTO) (test code = EO%) 0.9 % 0-6 RED CELL DISTRIBUTION WIDTH (test code = RDW) 20.7 % 11 .5-14.0 MONOCYTES % (AUTO) (test code = MO%) 8.9 % 3-13 RED BLOOD COUNT (test code = RBC) 2.75 10 6/uL 3.72-5.28 MEAN CORPUSCULAR HEMOGLOBIN (test code = MCH) 30.2 pg 27 .0-33.4 MEAN CORPUSCULAR VOLUME (test code = MCV) 94 fl 80-97 MEAN CORPUSCULAR HGB CONC (test code = MCHC) 32.3 g/dL 32. 0-36.0 ABSOLUTE MONOCYTES (AUTO) (test code = MO#) 0.8 10 3/uL 0.1- 1.4 ABSOLUTE LYMPHOCYTES (AUTO) (test code = LY#) 1.8 10 3/uL 0. 5-4.7 BASOPHILS % (AUTO) (test code = BA%) 0.9 % 0-2 HEMOGLOBIN (test code = HGB) 8.3 g/dL 12.0-15.5 ABSOLUTE BASOPHILS # (AUTO) (test code = BA#) 0.1 10 3/uL 0. 0-0.2 HEMATOCRIT (test code = HCT) 25.7 % 36.0-47.0 SEGMENTED NEUTROPHILS % (AUTO) (test code = 69.8 % 42-7 8 SEG%) PLATELET COUNT (test code = PLT) 325 10 3/uL 150-450 LYMPHOCYTES % (AUTO) (test code = LY%) 19.5 % 13-45 ABSOLUTE NEUT (AUTO) (test code = NE#) 6.2 10 3/uL 1.7-8.2 WHITE BLOOD COUNT (test code = WBC) 9.0 10 3/uL 4.0-10.5 ABSOLUTE EOSINOPHILS # (AUTO) (test code = EO#) 0.1 10 3/uL 0.0-0.6 BASIC METABOLIC PANEL\[id number] 10:08:00 Test Item Value Reference Range Comments CHLORIDE (test code = CL-1) 108 mmol/L 98-107 GLUCOSE (test code = GLU) 86 mg/dL 75-110 BLOOD UREA NITROGEN (test code = BUN) 22 mg/dL 7-20 EGFR, (test code = GFRAA) 24 >60 CALCIUM (test code = CA) 8.4 mg/dL 8.4-10.2 SODIUM (test code = NA) 143.3 mmol/L 137-145 CARBON DIOXIDE (test code = CO2) 28 mmol/L 22-30 CREATININE RESULT (test code = CREA) 2.62 mg/dL 0.52-1.25 ANION GAP (test code = ANION) 7 5-19 POTASSIUM (test code = K) 4.1 mmol/L 3.6-5.0 EGFR,NON (test code = GFRN) 20 >60 BASIC METABOLIC PANEL\S\[id number] 12:30:00 Test Item Value Reference Range Comments BLOOD UREA NITROGEN (test code = BUN) 13 mg/dL 7-20 CARBON DIOXIDE (test code = CO2) 30 mmol/L 22-30 ANION GAP (test code = ANION) 7 5-19 EGFR,NON (test code = GFRN) 26 >60 POTASSIUM (test code = K) 3.5 mmol/L 3.6-5.0 EGFR, (test code = GFRAA) 31 >60 CALCIUM (test code = CA) 8.6 mg/dL 8.4-10.2 CREATININE RESULT (test code = CREA) 2.05 mg/dL 0.52-1.25 SODIUM (test code = NA) 141.2 mmol/L 137-145 CHLORIDE (test code = CL-1) 104 mmol/L 98-107 GLUCOSE (test code = GLU) 98 mg/dL 75-110 BASIC METABOLIC PANEL\[id number] 12:30:00 Test Item Value Reference Range Comments GLUCOSE (test code = GLU) 98 mg/dL 75-110 BLOOD UREA NITROGEN (test code = BUN) 13 mg/dL 7-20 CALCIUM (test code = CA) 8.6 mg/dL 8.4-10.2 CHLORIDE (test code = CL-1) 104 mmol/L 98-107 EGFR, (test code = GFRAA) 31 >60 EGFR,NON (test code = GFRN) 26 >60 ANION GAP (test code = ANION) 7 5-19 POTASSIUM (test code = K) 3.5 mmol/L 3.6-5.0 SODIUM (test code = NA) 141.2 mmol/L 137-145 CARBON DIOXIDE (test code = CO2) 30 mmol/L 22-30 CREATININE RESULT (test code = CREA) 2.05 mg/dL 0.52-1.25 CREATININE ORDER\S\[id number] 11:45:00 Test Item Value Reference Range Comments EGFR, (test code = GFRAA) 37 >60 EGFR,NON (test code = GFRN) 30 >60 CREATININE RESULT (test code = CREA) 1.79 mg/dL 0.52-1.25 MANUAL DIFFERENTIAL\S\[id number] 11:45:00 Test Item Value Reference Range Comments TOTAL CELLS COUNTED (test code = TCC) 100 MONOCYTES % (MANUAL) (test code = MONO%M) 6 % 3-13 ABSOLUTE BASOPHILS # (MANUAL) (test code = 0.0 10 3/uL 0.0-0 .2 BASO#M) OVALOCYTES (test code = OVAL) 1+ ABSOLUTE EOSINOPHILS# (MANUAL) (test code = 0.1 10 3/uL 0.0- 0.6 EOS#M) ABSOLUTE LYMPHOCYTES# (MANUAL) (test code = 1.0 10 3/uL 0.5- 4.7 LYMPH#M) LYMPHOCYTES % (MANUAL) (test code = LYMPH%M) 11 % 13- 45 ANISOCYTOSIS (test code = ANISO) 3+ ABSOLUTE NEUTROPHILS# (MANUAL) (test code = 7.2 10 3/uL 1.7- 8.2 NEUT#M) SEGMENTED NEUTROPHILS % (MAN) (test code = 82 % 42-78 SEG%M) POLYCHROMASIA (test code = POLC) SLIGHT STOMATOCYTES (test code = STO) SLIGHT ABSOLUTE MONOCYTES # (MANUAL) (test code = 0.5 10 3/uL 0.1-1 .4 MONO#M) BASOPHILS % (MANUAL) (test code = BASO%M) 0 % 0-2 EOSINOPHILS % (MANUAL) (test code = EOS%M) 1 % 0-6 PLATELET COMMENT (test code = PLTCOM) ADEQUATE TROUGH VANCOMYCIN\[id number] 11:45:00 Test Item Value Reference Range Comments VANCOMYCIN,TROUGH (test code = TVANC) 14.4 ug/mL 5.0-20.0 TROUGH DRAW TIME (test code = TD) 1145 CBC WITH DIFF\[id number] 11:45:00 Test Item Value Reference Range Comments HEMATOCRIT (test code = HCT) 25.4 % 36.0-47.0 WHITE BLOOD COUNT (test code = WBC) 8.8 10 3/uL 4.0-10.5 MEAN CORPUSCULAR HGB CONC (test code = MCHC) 33.3 g/dL 32. 0-36.0 PLATELET COUNT (test code = PLT) 344 10 3/uL 150-450 MEAN CORPUSCULAR HEMOGLOBIN (test code = MCH) 30.5 pg 27 .0-33.4 HEMOGLOBIN (test code = HGB) 8.5 g/dL 12.0-15.5 RED CELL DISTRIBUTION WIDTH (test code = RDW) 21.0 % 11 .5-14.0 MEAN CORPUSCULAR VOLUME (test code = MCV) 92 fl 80-97 RED BLOOD COUNT (test code = RBC) 2.78 10 6/uL 3.72-5.28 BLOOD UREA NITROGEN\[id number] 11:45:00 Test Item Value Reference Range Comments BLOOD UREA NITROGEN (test code = BUN) 14 mg/dL 7-20 COMPREHENSIVE METABOLIC PANEL\[id number] 11:15:00 Test Item Value Reference Range Comments ALKALINE PHOSPHATASE (test code = ALKP) 89 U/L 38-126 ASPARTATE AMINO TRANSFERASE (test code = AST) 27 U/L 14 -36 BILIRUBIN,TOTAL (test code = TBIL) 1.2 mg/dL 0.2-1.3 POTASSIUM (test code = K) 3.7 mmol/L 3.6-5.0 EGFR, (test code = GFRAA) 56 >60 CREATININE RESULT (test code = CREA) 1.25 mg/dL 0.52-1.25 BLOOD UREA NITROGEN (test code = BUN) 9 mg/dL 7-20 BILIRUBIN,DIRECT (test code = BC) 0.4 mg/dL 0.0-0.4 CHLORIDE (test code = CL-1) 103 mmol/L 98-107 CALCIUM (test code = CA) 8.5 mg/dL 8.4-10.2 EGFR,NON (test code = GFRN) 46 >60 GLUCOSE (test code = GLU) 121 mg/dL 75-110 ALANINE AMINOTRANSFERASE (test code = ALTV) 23 U/L <35 TOTAL PROTEIN (test code = TP) 7.2 g/dL 6.3-8.2 ALBUMIN (test code = ALB) 4.2 g/dL 3.5-5.0 SODIUM (test code = NA) 143.4 mmol/L 137-145 ANION GAP (test code = ANION) 8 5-19 CARBON DIOXIDE (test code = CO2) 32 mmol/L 22-30 B-TYPE NATRIURETIC PEPTIDE\[id number] 11:15:00 Test Item Value Reference Range Comments B-TYPE NATRIURETIC PEPTIDE (test code = BNP) 1575.6 pg/mL 0.0 -100.0 BV/VAGINITIS PANEL DNA [id number] 13:49:00SEE NOTECHLAMYDIA/N. GONORRHOEAE RNA, TMA, [id number] 13:49:00 Test Item Value Reference Range Comments CHLAMYDIA TRACHOMATIS RNA, TMA, UROGENITAL NOT DETECTED NOT D ETECTED (test code = 42751743) NEISSERIA GONORRHOEAE RNA, TMA, UROGENITAL NOT DETECTED NOT D ETECTED (test code = 41086511) Assessments Condition Name Status Diagnosis Date Treating Clinici an Chest pain, unspecified type Unknown SOB (shortness of breath) Unknown Cough Unknown Systolic heart failure (CMS/HCC) Unknown CKD (chronic kidney disease), stage III Unknown AICD at end of battery life Unknown HTN (hypertension) Unknown Chronic atrial fibrillation (CMS/HCC) Unknown CAP (community acquired pneumonia) Unknown Heart failure, unspecified Active Chronic kidney disease, stage 3 (moderate) Active Spondyls w/o myelopathy or radiculopathy, Active lumbosacr region Generalized anxiety disorder Active Heart failure, unspecified Active Spondyls w/o myelopathy or radiculopathy, Active lumbosacr region Chronic kidney disease, stage 3 (moderate) Active Body mass index (BMI) 37.0-37.9, adult Active Spondyls w/o myelopathy or radiculopathy, Active lumbosacr region Generalized anxiety disorder Active Heart failure, unspecified Active Essential (primary) hypertension Active Bacteremia Active Chronic kidney disease, stage 3 (moderate) Active Heart failure, unspecified Active Obstructive sleep apnea (adult) (pediatric) Active Heart failure, unspecified Active Pain in right ankle and joints of right Active foot Chronic obstructive pulmonary disease w Active (acute) exacerbation Hypersomnia, unspecified Active Heart failure, unspecified Active Localized edema Active Anxiety disorder, unspecified Active Other intervertebral disc degeneration, Active lumbosacral region Acute sinusitis, unspecified Active Insomnia, unspecified Active Major depressive disorder, recurrent, Active unspecified Body mass index (BMI) 38.0-38.9, adult Active Acute vaginitis Active Contact w and exposure to infect w a sexl Active mode of transmiss Vulvar cyst Active Major depressive disorder, single episode, Active unspecified Heart failure, unspecified Active Periapical abscess without sinus Active Paroxysmal atrial fibrillation Active Body mass index (BMI) 38.0-38.9, adult Active Encounters Start End Encounter Admission Attending Care Care Encounter Date/Time Date/Time Type Type Clinicians Facility Department ID 2019-12-19 2019-12-22 Inpatient X GILDA MERA [id number] 4 20:08:00 14:40:00 BURAK 2019-12-19 2019-12-22 Inpatient VIDANT VIDANT [id number] 20:08:00 14:40:00 2019-11-07 2019-11-07 Outpatient Daniel [facility] 1 [id number] 15:30:00 15:30:00 Ramírez Harding [id number] s [id number] and [id number] [facility], 2019-07-18 2019-07-18 Outpatient Daniel [facility] 5 [id number] 11:30:00 11:30:00 Ramírez Harding [id number] s [id number] and [id number] [facility], 2019-06-25 2019-06-25 Outpatient [facility] [id number] 00:00:00 00:00:00 [id number] 2019-06-12 2019-06-12 Outpatient Daniel [facility] 4 [id number] 15:30:00 15:30:00 Ramírez Harding [id number] s [id number] and [id number] [facility], 2019-03-28 2019-03-28 Outpatient Daniel [facility] 6 [id number] 16:15:00 16:15:00 Ramírez Harding [id number] s [id number] and [id number] [facility], 2018-08-25 2018-08-25 Outpatient Daniel [facility] C [id number] 11:00:00 11:00:00 Ramírez Harding [id number] s [id number] and [id number] [facility], 2018-07-28 2018-07-28 Outpatient Daniel [facility] 5 [id number] 11:00:00 11:00:00 Ramírez Harding [id number] s [id number] and [id number] [facility], 2018-01-11 2018-01-11 Outpatient Samm [facility] D [id number] 11:00:00 11:00:00 [facility] [id number] s [id number] and [id number] [facility], [place] 2017-12-28 2017-12-28 Outpatient Samm, [facility] D [id number] 10:30:00 10:30:00 Dunia Harding [id number] s [id number] and [id number] [facility], [place] 2017-08-01 2017-08-01 Outpatient Daniel, [facility] 6 [id number] 14:30:00 14:30:00 Ramírez Harding [id number] s [id number] and [id number] [place], [place] Payers Payer Name Policy Type Policy Number Effective Date Expiration D ate [place]ESS [id number] [place] [id number] for all [phone] Plan of Treatment Planned Activity Planned Date Details Comments Future Scheduled Test [code = ] Future Scheduled Test [code = ] Future Scheduled Test [code = ] Instructions Instructions Mihaela Garcia RN - 12/22/2019Restrictions and instr uctions regarding device:No heavy lift ing (>10 lbs), pushing or pulling until s ite heals, ~ 1-2 weeks. Keep dressin g dry. Ok to shower but do not allow direc t flow of water on to site.Can allow direc t flow of water on site after 5 days. Okay to remove bandage in 48 hours. If s dimitry strips present, allow them to fa ll off on their own.Do not put creams or o intments on the surgical site.Attachments The following attachments cannot be sent through Care Everywhere.Implanta ble Cardioverter-Defibrillator (ICD) , Discharge Instructions for (ENGL ANATOLY) Instructions Instructions Mihaela Garcia RN - 12/22/2019Restrictions and instr uctions regarding device:No heavy lift ing (>10 lbs), pushing or pulling until s ite heals, ~ 1-2 weeks. Keep dressin g dry. Ok to shower but do not allow direc t flow of water on to site.Can allow direc t flow of water on site after 5 days. Okay to remove bandage in 48 hours. If s dimitry strips present, allow them to fa ll off on their own.Do not put creams or o intments on the surgical site.Attachments The following attachments cannot be sent through Care Everywhere.Implanta ble Cardioverter-Defibrillator (ICD) , Discharge Instructions for (ENGL ANATOLY) Social History Social Habit Start Date Stop Date Comments Tobacco use and exposure 2019-12-22 00:00:00 2019-12-22 00:00:00 Alcohol intake 2019-12-22 00:00:00 2019-12-22 00:00:00 Alcohol Comment 2017-10-18 00:00:00 2017-10-18 00:00:00 Smoking Status Start Date Stop Date Former smoker 2019-12-22 00:00:00 2019-12-22 00:00:00 History of tobacco use 2010-02-28 00:00: 00 Vital Signs Vital Name Observation Time Observation Value Comments Heart rate 2019-12-22 13:45:00 63 /min Oxygen saturation in Arterial blood by 2019-12-22 13:45:00 99 % Pulse oximetry Systolic blood pressure 2019-12-22 11:59:00 118 mm[Hg] Diastolic blood pressure 2019-12-22 11:59:00 75 mm[Hg] Body temperature 2019-12-22 11:59:00 36.56 Valeria Respiratory rate 2019-12-22 11:59:00 12 /min Body weight 2019-12-22 04:00:00 113.354 kg BMI 2019-12-22 04:00:00 41.59 kg/m2 Body height 2019-12-20 02:55:00 165.1 cm Hospital Discharge Instructions Instructions Mihaela Garcia RN - 12/22/2019Restrictions and instructions regarding device: No heavy lifting (>10 lbs), pushing or pulling until site heals, ~ 1-2 weeks. Keep dressing dry. Ok to shower but do not allow direct flow of water on to site. Can allow direct flow of water on site after 5 days. Okay to remove bandage in 48 hours. If steri strips present, allow them to fall off on their own. Do not put creams or ointments on the surgical site. AttachmentsThe following attachments cannotbe sent through Care Everywhere.Implantable Cardioverter-Defibrillator (ICD), Discharge Instructions for (UKRAINIAN)documented in this encounter Health Concerns Section Text Date Unknown Unknown
[2020-01-10] MEDS: FUROSEMIDE INJ/PF 40 MG/4 ML SDV IV SCH (22:21)
[2020-01-11] MEDS: ACETAMINOPHEN 325 MG TABLET PO PRN (05:58)
[2020-01-11] MEDS: ALPRAZOLAM 0.5 MG TABLET PO PRN ×2 (05:59→11:59)
[2020-01-11 07:20] LABS: HEMATOCRIT 31.6 % (36.0-47.0); HEMOGLOBIN 10.3 g/dL (12.0-15.5); MEAN CORPUSCULAR HEMOGLOBIN 31.5 pg (27.0-33.4); MEAN CORPUSCULAR HGB CONC 32.7 g/dL (32.0-36.0); MEAN CORPUSCULAR VOLUME 96 fl (80-97); PLATELET COUNT 222 10^3/uL (150-450); RED BLOOD COUNT 3.29 10^6/uL (3.72-5.28); RED CELL DISTRIBUTION WIDTH 16.7 % (11.5-14.0); WHITE BLOOD COUNT 6.5 10^3/uL (4.0-10.5)
[2020-01-11 07:41] LABS: ANION GAP 6 (5-19); BLOOD UREA NITROGEN 40 mg/dL (7-20); CALCIUM 9.1 mg/dL (8.4-10.2); CARBON DIOXIDE 32 mmol/L (22-30); CHLORIDE 105 mmol/L (98-107); GLUCOSE 110 mg/dL (75-110); POTASSIUM 3.9 mmol/L (3.6-5.0)
[2020-01-11] MEDS: PAROXETINE HCL 20 MG TABLET PO SCH (07:47)
[2020-01-11] MEDS: ISOSORBIDE MONONITRATE 30 MG TAB.ER.24H PO SCH (07:48)
[2020-01-11] MEDS ORDERED: ASPIRIN 81 MG TABLET, ENT COATED PO SCH (08:00)
[2020-01-11] MEDS ORDERED: INFLUENZA QUAD (6MOS+) 2020-21 VAC 0.5 ML SYR IM ONE (08:00)
[2020-01-11] MEDS: FUROSEMIDE INJ/PF 40 MG/4 ML SDV IV SCH (09:50)
[2020-01-11] MEDS: METOPROLOL SUCCINATE 50 MG TAB.SR.24H PO SCH (09:50)
[2020-01-11] MEDS: FAMOTIDINE 20 MG TABLET PO SCH (09:50)
[2020-01-11] MEDS: BUSPIRONE HCL 10 MG TABLET PO SCH (09:50)
[2020-01-11] MEDS: SACUBITRIL/VALSARTAN 49 MG/51 MG TABLET PO SCH (09:50)
[2020-01-11] MEDS: APIXABAN 2.5 MG TABLET PO SCH (09:50)
[2020-01-11 11:12] VITALS: BP 129/83
--- NOTE | 2020-01-11 17:34 | PDOC DISCHARGE SUMMARY ---
Impression - Admit/DC Date/PCP Admission Date/Primary Care Provider: 01/09/20 08:30 YI SANCHEZ DO Discharge Date: 01/11/20 - Discharge Diagnosis (1) Hypertensive emergency Is this a current diagnosis for this admission?: Yes (2) Acute and chronic respiratory failure with hypoxia Is this a current diagnosis for this admission?: Yes (3) AICD (automatic cardioverter/defibrillator) present Is this a current diagnosis for this admission?: Yes (4) Acute on chronic systolic congestive heart failure, NYHA class 3 Is this a current diagnosis for this admission?: Yes (5) Acute pulmonary edema with congestive heart failure Is this a current diagnosis for this admission?: Yes (6) CAD (coronary artery disease) Is this a current diagnosis for this admission?: Yes (7) CKD (chronic kidney disease) Is this a current diagnosis for this admission?: Yes (8) COPD (chronic obstructive pulmonary disease) Is this a current diagnosis for this admission?: Yes (9) Engages in non-nicotine containing substance vaping Is this a current diagnosis for this admission?: Yes (10) Longstanding persistent atrial fibrillation Is this a current diagnosis for this admission?: Yes (11) Morbid obesity Is this a current diagnosis for this admission?: Yes (12) RUBIN (obstructive sleep apnea) Is this a current diagnosis for this admission?: Yes - Assessment Summary: We have taken her off the nitroglycerin drip and got her switched over to a nasal cannula. The only thing we did for her blood pressure was put her back on the medications that are on her home list and her blood pressure is now very well controlled. I suspect she was not taking them at home. I have switched her Lasix to p.o. Her creatinine bumped a little bit today so we will see how that looks in the morning. - Additional Information Discharge Diet: Cardiac Discharge Activity: Activity As Tolerated, Balance Activity w/Rest, Weigh Daily Referrals: YI SANCHEZ DO [Primary Care Provider] - 01/18/20 9:00 am Home Medications: Alprazolam [Xanax 0.5 mg Tablet] 0.5 mg PO Q6HP PRN 02/08/19 Atorvastatin Calcium [Lipitor 80 mg Tablet] 80 mg PO QPM 02/08/19 Paroxetine HCl [Paxil 20 mg Tablet] 20 mg PO QAM 02/08/19 Apixaban [Eliquis 2.5 mg Tablet] 2.5 mg PO Q12 #0 tablet 07/03/19 Buspirone HCl [Buspar 10 mg Tablet] 10 mg PO Q12 #0 tablet 07/03/19 Famotidine [Pepcid 20 mg Tablet] 20 mg PO Q12 tablet 07/03/19 Aspirin [Ecotrin 81 mg EC Tablet] 81 mg PO QAM 07/10/19 Isosorbide Mononitrate [Imdur 30 mg Tablet.er] 30 mg PO QAM 07/10/19 Furosemide [Lasix 40 mg Tablet] 60 mg PO QAM 10/29/19 Metoprolol Succinate [Toprol Xl 25 mg Tab.sr] 50 mg PO QAM 10/29/19 Sacubitril/Valsartan [Entresto 49 mg/51 mg Tablet] 1 tab PO Q12 10/29/19 History of Present Illiness History of Present Illness: FRANKI DEL ROSARIO is a 49 year old female with a history of systolic congestive heart failure with an EF of 20 to 25% who recently had a pacemaker and defibrillator placed. She has a history of hypertension with medication noncompliance. She presents now has shortness of breath. She said the onset was this morning. She says she woke up short of breath and called EMS. She has presented like this previously because she was not taking her medications as prescribed. She says that this time she has been taking her medications. We have not yet confirmed with her pharmacy that she has been getting them filled. She was hypoxic requiring BiPAP. She was not febrile. Her blood pressure was extremely high and she was started on a nitroglycerin drip. Her chest x-ray showed bilateral opacities. Her BNP was elevated. She did not display any peripheral edema. She was given some Lasix in the ER. She felt better after starting BiPAP. Hospital Course Hospital Course: She responded very well to aggressive diuresis. We were able to get her back to her usual medications day after admission. For her blood pressure, all we did was put her back on her home medications that she should be taking and we were able to get her off of the nitroglycerin drip and her blood pressure was very well controlled. After diuresis, she was able to get back onto the 3 L per nasal cannula that she is usually on at home. She kept asking for pain medication for pain that is "all over." Every time I came in the room to see her she was asleep and appeared very comfortable. Her chronic kidney disease stage in her typical range and tolerated diuresis very well. She has follow-up scheduled with her primary care provider within 1 week. Her labs and exami nation were reassuring and she was discharged in stable condition. Physical Exam Vital Signs: Temp Pulse Resp BP Pulse Ox 97.9 F 59 L 19 129/83 H 100 01/11/20 11:11 01/11/20 11:11 01/11/20 11:11 01/11/20 11:11 01/11/20 11:11 Intake & Output 01/10/20 01/11/20 01/12/20 06:59 06:59 06:59 Intake Total 390 1098 Output Total 4380 1350 Balance -3990 -252 Weight 107.8 kg 110.5 kg General appearance: PRESENT: no acute distress, cooperative, disheveled, morbidly obese Respiratory exam: PRESENT: decreased breath sounds, symmetrical, unlabored. ABSENT: accessory muscle use, chest wall tenderness, prolonged expiratory phas, rhonchi, tachypnea, wheezes Cardiovascular exam: PRESENT: RRR, +S1, +S2 Pulses: PRESENT: normal carotid pulses Vascular exam: PRESENT: normal capillary refill GI/Abdominal exam: PRESENT: normal bowel sounds, soft. ABSENT: distended, guarding, rebound, tenderness Extremities exam: ABSENT: clubbing, pedal edema Musculoskeletal exam: PRESENT: normal inspection. ABSENT: deformity Neurological exam: PRESENT: awake, oriented to person, oriented to place, oriented to situation Psychiatric exam: PRESENT: flat affect Skin exam: PRESENT: dry, warm Results Laboratory Results: WBC 6.5 10^3/uL (4.0-10.5) 01/11/20 05:57 RBC 3.29 10^6/uL (3.72-5.28) L 01/11/20 05:57 Hgb 10.3 g/dL (12.0-15.5) L 01/11/20 05:57 Hct 31.6 % (36.0-47.0) L 01/11/20 05:57 MCV 96 fl (80-97) 01/11/20 05:57 MCH 31.5 pg (27.0-33.4) 01/11/20 05:57 MCHC 32.7 g/dL (32.0-36.0) 01/11/20 05:57 RDW 16.7 % (11.5-14.0) H 01/11/20 05:57 Plt Count 222 10^3/uL (150-450) 01/11/20 05:57 Lymph % (Auto) 41.7 % (13-45) 01/09/20 06:44 [place] % (Auto) 4.1 % (3-13) 01/09/20 06:44 Eos % (Auto) 1.8 % (0-6) 01/09/20 06:44 Baso % (Auto) 0.9 % (0-2) 01/09/20 06:44 Absolute Neuts (auto) 6.4 10^3/uL (1.7-8.2) 01/09/20 06:44 Absolute Lymphs (auto) 5.2 10^3/uL (0.5-4.7) H 01/09/20 06:44 Absolute Monos (auto) 0.5 10^3/uL (0.1-1.4) 01/09/20 06:44 Absolute Eos (auto) 0.2 10^3/uL (0.0-0.6) 01/09/20 06:44 Absolute Basos (auto) 0.1 10^3/uL (0.0-0.2) 01/09/20 06:44 Seg Neutrophils % 51.5 % (42-78) 01/09/20 06:44 Platelet Estimate Cancelled 01/10/20 04:49 Sodium 143.3 mmol/L (137-145) 01/11/20 05:57 Potassium 3.9 mmol/L (3.6-5.0) 01/11/20 05:57 Chloride 105 mmol/L (98-107) 01/11/20 05:57 Carbon Dioxide 32 mmol/L (22-30) H 01/11/20 05:57 Anion Gap 6 (5-19) 01/11/20 05:57 BUN 40 mg/dL (7-20) H 01/11/20 05:57 Creatinine 1.71 mg/dL (0.52-1.25) H 01/11/20 05:57 Est GFR ( Amer) 39 (>60) L 01/11/20 05:57 Est GFR (MDRD) Non-Af 32 (>60) L 01/11/20 05:57 Glucose 110 mg/dL (75-110) 01/11/20 05:57 POC Glucose 118 mg/dL (70-110) H 01/10/20 11:50 Calcium 9.1 mg/dL (8.4-10.2) 01/11/20 05:57 Troponin I 0.021 ng/mL 01/09/20 06:44 NT-Pro-B Natriuret Pep 4850 pg/mL (<125) H 01/09/20 06:44 Slides for Path Review Cancelled 01/10/20 04:49 01/09/20 06:44 Troponin I 0.021 NT-Pro-B Natriuret Pep 4850 H Impressions: Chest X-Ray 01/09/20 06:29 IMPRESSION: 1. Cardiomegaly. 2. Diffuse bilateral opacities. These findings could be seen with bilateral pneumonic process and may be related to pulmonary edema. Plan Time Spent: Greater than 30 Minutes Stroke Is this a Stroke Patient?: No Acute Heart Failure Is this a Heart Failure Patient?: Yes Documentation of LVEF assessment?: Yes LVEF: LVEF Less Than or Equal to 35% Anticoagulant Therapy: Yes Discharged on Evidence-Based Beta Blockers: Yes Discharged on ARNI?: Yes For LVEF <35%, discharged on Aldosterone Antagonist?: No-document contraincations Reason(s) not discharged on Aldosterone Antagonist: Renal dysfunction (creatinine >2.5 mg/dL in men or 2.0 mg/dL in women) Follow-up Appointment scheduled within 7 days?: Yes
== END 2020-01-11 12:42 | disposition home or self-care (01) | DRG 291 ==
LOC: ER 06:22 → EH 08:30 → 3W 21:55
PROVIDERS: ADMIT Family Medicine; ATTEND Family Medicine
DX: I13.0 Hypertensive heart and chronic kidney disease with heart failure and stage 1 through stage 4 chronic kidney disease, or unspecified chronic kidney disease (principal); I50.23 Acute on chronic systolic (congestive) heart failure; J96.21 Acute and chronic respiratory failure with hypoxia; I16.1 Hypertensive emergency; I48.11 Longstanding persistent atrial fibrillation; I48.91 Unspecified atrial fibrillation; I25.10 Atherosclerotic heart disease of native coronary artery without angina pectoris; E78.5 Hyperlipidemia, unspecified; K21.9 Gastro-esophageal reflux disease without esophagitis; F32.9 Major depressive disorder, single episode, unspecified; N18.30 Chronic kidney disease, stage 3 unspecified; J41.0 Simple chronic bronchitis; F17.290 Nicotine dependence, other tobacco product, uncomplicated; E66.01 Morbid (severe) obesity due to excess calories; G47.33 Obstructive sleep apnea (adult) (pediatric); T46.5X6A Underdosing of other antihypertensive drugs, initial encounter; Z95.810 Presence of automatic (implantable) cardiac defibrillator; I25.2 Old myocardial infarction; Z86.14 Personal history of Methicillin resistant Staphylococcus aureus infection; Z95.1 Presence of aortocoronary bypass graft; Z90.710 Acquired absence of both cervix and uterus; Z82.3 Family history of stroke; Z83.3 Family history of diabetes mellitus; Z82.49 Family history of ischemic heart disease and other diseases of the circulatory system; Z79.01 Long term (current) use of anticoagulants; Z79.899 Other long term (current) drug therapy; Z91.012 Allergy to eggs; Z91.048 Other nonmedicinal substance allergy status; Z99.81 Dependence on supplemental oxygen
CPT/HCPCS: 36415; 71045; 80048; 82962; 83880; 84484; 85025; 85027; 87040; 93005; 93010; 94640; 94660; 96365; 96366; 96375; 99285; J0456; J0696; J1940; J2270; J2405; J2930; J3490

== ENCOUNTER 2020-03-02 21:36 | Inpatient (IN) | payer MEDICAID ==
[2020-03-02 22:39] LABS: ABSOLUTE BASOPHILS # (AUTO) 0.1 10^3/uL (0.0-0.2); ABSOLUTE LYMPHOCYTES (AUTO) 1.1 10^3/uL (0.5-4.7); ABSOLUTE MONOCYTES (AUTO) 0.5 10^3/uL (0.1-1.4); ABSOLUTE NEUT (AUTO) 7.7 10^3/uL (1.7-8.2); BASOPHILS % (AUTO) 0.6 % (0-2); EOSINOPHILS % (AUTO) 0.1 % (0-6); HEMOGLOBIN 11.4 g/dL (12.0-15.5); MEAN CORPUSCULAR HGB CONC 33.5 g/dL (32.0-36.0); MEAN CORPUSCULAR VOLUME 95 fl (80-97); MONOCYTES % (AUTO) 5.2 % (3-13); PLATELET COUNT 281 10^3/uL (150-450); RED BLOOD COUNT 3.56 10^6/uL (3.72-5.28); RED CELL DISTRIBUTION WIDTH 15.7 % (11.5-14.0); SEGMENTED NEUTROPHILS % (AUTO) 82.1 % (42-78); TOTAL CELLS COUNTED % (AUTO) 100 %; WHITE BLOOD COUNT 9.4 10^3/uL (4.0-10.5)
[2020-03-02 22:42] LABS: ALBUMIN 4.5 g/dL (3.5-5.0); ALKALINE PHOSPHATASE 120 U/L (38-126); ANION GAP 8 (5-19); ASPARTATE AMINO TRANSFERASE 38 U/L (14-36); BILIRUBIN,DIRECT 0.2 mg/dL (0.0-0.4); BILIRUBIN,TOTAL 1.4 mg/dL (0.2-1.3); BLOOD UREA NITROGEN 20 mg/dL (7-20); CALCIUM 9.1 mg/dL (8.4-10.2); CARBON DIOXIDE 28 mmol/L (22-30); CHLORIDE 104 mmol/L (98-107); CREATINE KINASE 95 U/L (30-135); GLUCOSE 163 mg/dL (75-110); POTASSIUM 3.7 mmol/L (3.6-5.0)
[2020-03-02 22:54] LABS: CREATINE KINASE MB 1.21 ng/mL (<4.55); TROPONIN I 0.028 ng/mL
--- NOTE | 2020-03-02 23:11 | RADIOLOGY REPORT (SQ) ---
EXAM DESCRIPTION: CHEST SINGLE VIEW 03/02/2020 10:26 PM [employer] CLINICAL HISTORY: 49 years Female, SOB; ; COMPARISON: Prior study from 01/09/2020 FINDINGS: Single view is obtained. Status post median sternotomy. Left subclavian approach AICD/pacer is in position. Cardiopericardial silhouette is enlarged. Mediastinal contours are stable. Multifocal bilateral mid to lower lung zone airspace disease is evident. No pneumothorax or large pleural effusion. IMPRESSION: Multifocal bilateral mid to lower lung zone airspace disease. Considerations include pulmonary edema and/or multifocal pneumonia/viral pneumonitis. Recommend follow-up to clearing.
[2020-03-03] MEDS ORDERED: ONDANSETRON HCL INJ/PF 4 MG/2 ML SDV IV ONE (01:49)
[2020-03-03] MEDS ORDERED: FUROSEMIDE INJ/PF 20 MG/2 ML SDV IV ONE (01:50)
[2020-03-03 04:22] LABS: APPEARANCE,URINE SLIGHTLY-CLOUDY; BILIRUBIN,URINE NEGATIVE (NEGATIVE); COLOR,URINE YELLOW; GLUCOSE, URINE NEGATIVE (NEGATIVE); KETONES,URINE NEGATIVE (NEGATIVE); LEUKOCYTE ESTERASE,URINE NEGATIVE (NEGATIVE); NITRITE,URINE NEGATIVE (NEGATIVE); PROTEIN,URINE 30 mg/dL (NEGATIVE); URINE SPECIFIC GRAVITY 1.009; UROBILINOGEN,URINE NEGATIVE mg/dL (<2.0)
--- NOTE | 2020-03-03 06:07 | ER Document Report ---
ED General - General Chief Complaint: Shortness Of Breath Stated Complaint: SHORTNESS OF BREATH Primary Care Provider: YI FERNANDEZ DO [Primary Care Provider] - Follow up as needed TRAVEL OUTSIDE OF THE [place] IN LAST 30 DAYS: No - HPI Notes: Chief complaint: Difficulty breathing History of present illness: 49-year-old female followed by Dr. Fernandez with history of systolic congestive heart failure with an EF of 20 to 25% presenting with increased difficulty breathing over the last 2 to 3 days. Admits that she may have been somewhat noncompliant with her medications. She denies known exposure to Covid. She denies fever. She has been coughing up some pink sputum. No chest pain. She uses 4 L of nasal O2 chronically at home. EMS arrived and found her sats in the high 80s with this. They switched her over to a nonrebreather and brought her here. Upon arrival here nursing staff switched her to BiPAP and she has been much more comfortable with this. She had also received 40 mg of Lasix IV and has had a good diuresis with this. She is relatively comfortable now on BiPAP. EMS ran a rapid Covid test during transport and reports that this is negative. Current home medications: Alprazolam [Xanax 0.5 mg Tablet] 0.5 mg PO Q6HP PRN 02/08/19 Atorvastatin Calcium [Lipitor 80 mg Tablet] 80 mg PO QPM 02/08/19 Paroxetine HCl [Paxil 20 mg Tablet] 20 mg PO QAM 02/08/19 Apixaban [Eliquis 2.5 mg Tablet] 2.5 mg PO Q12 #0 tablet 07/03/19 Buspirone HCl [Buspar 10 mg Tablet] 10 mg PO Q12 #0 tablet 07/03/19 Famotidine [Pepcid 20 mg Tablet] 20 mg PO Q12 tablet 07/03/19 Aspirin [Ecotrin 81 mg EC Tablet] 81 mg PO QAM 07/10/19 Isosorbide Mononitrate [Imdur 30 mg Tablet.er] 30 mg PO QAM 07/10/19 Furosemide [Lasix 40 mg Tablet] 60 mg PO QAM 10/29/19 Metoprolol Succinate [Toprol Xl 25 mg Tab.sr] 50 mg PO QAM 10/29/19 Sacubitril/Valsartan [Entresto 49 mg/51 mg Tablet] 1 tab PO Q12 10/29/19 - Related Data Allergies/Adverse Reactions: egg [Egg] Allergy (Verified 07/09/19 20:06) propoxyphene [From Darvocet-N] Allergy (Verified 07/09/19 20:06) amiodarone Adverse Reaction (Verified 07/09/19 20:06) Respiratory distress diphenhydramine HCl [From Benadryl] Adverse Reaction (Verified 07/09/19 20:06) chest pain, bigemeny rhythm Home Medications: Amiodarone. Famotidine. Aspirin. Furosemide. Atorvastatin. Buspirone. Entresto. Eliquis. Isosorbide Past Medical History - General Information source: Patient, [facility] Records - Social History Smoking Status: Former Smoker Drug Abuse: Marijuana Family History: CAD, CVA, DM, Hypertension, Malignancy, Other - Kidney disease - Past Medical History Cardiac Medical History: Reports: Hx Atrial Fibrillation, Hx Congestive Heart Failure, Hx Coronary Artery Disease, Hx Heart Attack, Hx Hypercholesterolemia, Hx Hypertension Denies: Hx DVT, Hx Pulmonary Embolism Pulmonary Medical History: Reports: Hx Bronchitis, Hx COPD, Hx Pneumonia, Hx Intubation, Hx Respiratory Failure, Hx Sleep Apnea Denies: Hx Asthma Neurological Medical History: Denies: Hx Cerebrovascular Accident, Hx Seizures Endocrine Medical History: Denies: Hx Diabetes Mellitus Type 1, Hx Diabetes Mellitus Type 2, Hx Hyperthyroidism, Hx Hypothyroidism Renal/ Medical History: Reports: Hx Kidney Stones, Hx Renal Insufficiency. Denies: Hx Peritoneal Dialysis GI Medical History: Reports: Hx Gastroesophageal Reflux Disease, Hx Hepatitis. Denies: Hx Cirrhosis, Hx Crohn's Disease, Hx Hiatal Hernia, Hx Ulcer, Hx Ulcerative Colitis Musculoskeletal Medical History: Denies Hx Arthritis, Denies Hx Gout Skin Medical History: Denies Hx Eczema, Denies Hx Psoriasis Psychiatric Medical History: Reports: Hx Anxiety, Hx Depression, Hx Schizophrenia Infectious Medical History: Reports: Hx Hepatitis, Hx MRSA Past Surgical History: Reports: Hx Cardiac Catheterization - multiple, Hx Cardiac Surgery - pacemaker/icd, Hx Section, Hx Coronary Artery Bypass Graft - 2006, Hx Coronary Stent - Multiple, Hx Hysterectomy, Hx Open Heart Surgery - BYPASS 2006, Hx Pacemaker - AICD, Hx Tubal Ligation. Denies: Hx Mastectomy - Immunizations Hx Diphtheria, Pertussis, Tetanus Vaccination: Yes Hx Pneumococcal Vaccination: 04/04/12 Review of Systems - Review of Systems Notes: Constitutional: Negative for fever. HENT: Negative for sore throat. Eyes: Negative for visual changes. Cardiovascular: Negative for chest pain. Respiratory: As per HPI. Gastrointestinal: As per HPI. Genitourinary: Negative for dysuria. Musculoskeletal: Chronic back pain. Skin: Negative for rash. Neurological: Negative for headaches, weakness or numbness. 10 point ROS negative except as marked above and in HPI. Physical Exam - Vital signs Vitals: Resp BP Pulse Ox 37 H 180/105 H 99 03/02/20 21:41 03/02/20 21:41 03/02/20 21:41 - Notes Notes: GENERAL: Obese middle-aged female who appears relatively comfortable on BiPAP. SKIN: Good turgor no rashes. HEAD: Normocephalic atraumatic. EYES: PERRLA. EOMI. Conjunctivae and sclerae clear. EARS: CANALS AND TMS CLEAR. NOSE: CLEAR. MOUTH: Moist mucosa. Good dentition. No stridor or edema. No drooling. NECK: Supple. No masses or thyromegaly. No adenopathy. Carotids 2+ without bruits. No JVD. BACK: Symmetrical without tenderness. CHEST: Comfortable on BiPAP. Symmetrical breath sounds. Scattered rhonchi bila terally. HEART: Pacemaker left anterior chest wall. Regular rhythm. No murmur gallop or rub. ABDOMEN: Soft nontender without masses, organomegaly or rebound. Bowel sounds normally active. No bruits. GENITALIA: Deferred. EXTREMITIES: Bilateral trace pretibial edema. No calf tenderness. Cap refill less than 1.5 seconds. Dorsalis pedis and posterior tibial pulses 3+ and symmetrical. NEUROLOGICAL: GCS 15. Alert and oriented x3. Fluent speech. Cranial nerves II through XII intact. Sensorimotor and cerebellar normal. Normal tone. PSYCHIATRIC: Appropriate affect. Course - Re-evaluation Re-evalutation: 03/03/20 06:33 Patient received IV Lasix on arrival here was placed on BiPAP. When I saw her initially she had been on BiPAP for several hours. She appeared relatively comfortable and we tried to take her off BiPAP and put her back on her nasal cannula. She immediately desaturated down into the upper 80s. We have restarted her on BiPAP. Her troponin is normal. Her chemistries are consistent with prior baseline on her comprehensive metabolic profile. She has some mild renal insufficiency. Her BNP currently is about 7500 and looks like her last value approximately 6 weeks ago was about half of this. Chest x-ray is reviewed and this looks like pulmonary edema. Her Covid test during transport was negative. I spoken with the hospitalist service and feel she will need admission to [facility]. She has been accepted for admission. - Vital Signs Vital signs: Temp Pulse Resp BP Pulse Ox 99.8 F 83 26 H 118/77 94 03/03/20 05:00 03/02/20 22:19 03/03/20 07:01 03/03/20 07:00 03/03/20 07:01 - Laboratory Results Result Diagrams: 03/02/20 22:02 03/02/20 22:02 Laboratory Results Interpreted: 03/02/20 03/02/20 03/02/20 22:02 22:02 22:02 RBC 3.56 L Hgb 11.4 L Hct 34.0 L RDW 15.7 H Lymph % (Auto) 12.0 L Seg Neutrophils % 82.1 H Creatinine 1.43 H Est GFR ( Amer) 47 L Est GFR (MDRD) Non-Af 39 L Glucose 163 H Total Bilirubin 1.4 H AST 38 H NT-Pro-B Natriuret Pep 7460 H Urine Protein Urine Blood 03/03/20 04:00 RBC Hgb Hct RDW Lymph % (Auto) Seg Neutrophils % Creatinine Est GFR ( Amer) Est GFR (MDRD) Non-Af Glucose Total Bilirubin AST NT-Pro-B Natriuret Pep Urine Protein 30 H Urine Blood SMALL H Critical Laboratory Results Reviewed: Yes Attending or Supervising Physician who Reviewed Labs: YI DENTON - Radiology Results Radiology Results Interpreted: 03/03/20 06:32 Chest X-Ray 03/02/20 22:26 IMPRESSION: Multifocal bilateral mid to lower lung zone airspace disease. Considerations include pulmonary edema and/or multifocal pneumonia/viral pneumonitis. Recommend follow-up to clearing. Critical Radiology Results Reviewed: Yes Attending or Supervising Physician who Reviewed Radiology: YI DENTON - EKG Interpretation by Me Additional EKG results interpreted by me: 03/03/20 06:32 Twelve-lead EKG reviewed by me contemporaneously: 2234 hrs. 03/02/2020 Indication for study: Dyspnea Rhythm: Paced Rate: 75 Intervals: QRS axis: ST/T wave changes: Comparison with prior tracing: No interval change compared with prior study 01/09/2020 Interpretation: Paced rhythm Discharge - Discharge Clinical Impression: Acute and chronic respiratory failure with hypoxia, Acute decompensated heart failure Condition: Serious Disposition: ADMITTED INPATIENT Admitting Provider: Mike (Hospitalist) Unit Admitted: IMCU Referrals: YI FERNANDEZ DO [Primary Care Provider] - Follow up as needed
--- NOTE | 2020-03-03 07:54 | EKG REPORT ---
SEVERITY:- ABNORMAL ECG - ATRIAL-SENSED VENTRICULAR-PACED RHYTHM : Confirmed by: Verna Frederick 03-Mar-2020 07:54:05
[2020-03-03] MEDS ORDERED: ACETAMINOPHEN 325 MG TABLET PO ONE (11:18)
[2020-03-03] MEDS ORDERED: ONDANSETRON HCL INJ/PF 4 MG/2 ML SDV IV PRN (13:33)
[2020-03-03] MEDS ORDERED: IPRATROPIUM/ALBUTEROL 0.5-2.5 MG/3 ML AMPUL NEB PRN (13:33)
[2020-03-03] MEDS ORDERED: FUROSEMIDE INJ/PF 40 MG/4 ML SDV IV ONE (14:30)
[2020-03-03] MEDS ORDERED: LORAZEPAM 0.5 MG TABLET PO PRN (14:53)
--- NOTE | 2020-03-03 14:55 | PDOC H&P ---
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 Of note patient has been admitted multiple times in the past due to CHF exacerbation last one 01/11/20. According to the patient she was trying to quit drinking alcohol daily but since 2 days ago has noticed increased leg swelling and progressive SOB. She denied any fever or recent COVID exposure. However she did say that she has not adhered to a low salt diet this past holiday. She said she takes her meds daily. EMS was called and she apparently had an O2 sat of low 80s which improved with a nonrebreather. She was also given 40 mg of Lasix. She follows with Dr. Ragsdale In the ED blood pressure was 180/105, heart rate of 61, respiratory rate of 13, sats 96% on 50% FiO2 BiPAP. Covid test was negative CBC showed WBC count of 9.4, hemoglobin of 11.4, platelet of 281. CMP showed creatinine of 1.43 which is around her baseline, BNP 7460. X-ray showed multifocal bilateral mid to lower lung zone airspace disease. Patient was given an additional 60 mg of IV Lasix. Hospitalist service was consulted for further evaluation and management. Past Medical History Cardiac Medical History: Reports: Atrial Fibrillation, Congestive Heart Failure, Coronary Artery Disease, Myocardial Infarction, Hyperlipidema, Hypertension Denies: DVT, Pulmonary Embolism Pulmonary Medical History: Reports: Bronchitis, Chronic Obstructive Pulmonary Disease (COPD), Intubation, Pneumonia, Respiratory Failure, Sleep Apnea Denies: Asthma Neurological Medical History: Denies: Seizures Endocrine Medical History: Denies: Diabetes Mellitus Type 1, Diabetes Mellitus Type 2, Hyperthyroidism, Hypothyroidism GI Medical History: Reports: Gastroesophageal Reflux Disease, Hepatitis Denies: Cirrhosis, Crohn's Disease, Hiatal Hernia, Ulcerative Colitis Musculoskeltal Medical History: Denies: Arthritis, Gout Skin Medical History: Denies: Eczema, Psoriasis Psychiatric Medical History: Reports: Depression Hematology: Reports: Anemia, Bleeding Tendencies - "On blood thinners" Infectious Medical History: Reports: Methicillin-Resistant Staph Aureus Past Surgical History Past Surgical History: Reports: Cardiac Catheterization - multiple, Section, Coronary Artery Bypass Graft - 2007, Coronary Stent - Multiple, Hys terectomy, Pacemaker - AICD, Tubal Ligation Denies: Mastectomy Social History Smoking Status: Former Smoker Frequency of Alcohol Use: Heavy Hx Recreational Drug Use: Yes Drugs: Marijuana Hx Prescription Drug Abuse: No Family History Family History: CAD, CVA, DM, Hypertension, Malignancy, Other - Kidney disease Parental Family History Reviewed: Yes Children Family History Reviewed: Yes Sibling(s) Family History Reviewed.: Yes Medication/Allergy Home Medications: Atorvastatin Calcium [Lipitor 80 mg Tablet] 80 mg PO QPM 02/08/19 Paroxetine HCl [Paxil 20 mg Tablet] 20 mg PO QAM 02/08/19 Apixaban [Eliquis 2.5 mg Tablet] 2.5 mg PO Q12 #0 tablet 07/03/19 Buspirone HCl [Buspar 10 mg Tablet] 10 mg PO Q12 #0 tablet 07/03/19 Famotidine [Pepcid 20 mg Tablet] 20 mg PO Q12 tablet 07/03/19 Aspirin [Ecotrin 81 mg EC Tablet] 81 mg PO QAM 07/10/19 Isosorbide Mononitrate [Imdur 30 mg Tablet.er] 30 mg PO QAM 07/10/19 Metoprolol Succinate [Toprol Xl 25 mg Tab.sr] 50 mg PO QAM 10/29/19 Sacubitril/Valsartan [Entresto 49 mg/51 mg Tablet] 1 tab PO Q12 10/29/19 Alprazolam [Xanax] 1 mg PO TID 03/03/20 Amiodarone HCl [Pacerone] 200 mg PO QPM 03/03/20 Furosemide [Lasix] 60 mg PO QAM 03/03/20 Allergies/Adverse Reactions: egg [Egg] Allergy (Verified 07/09/19 20:06) propoxyphene [From Darvocet-N] Allergy (Verified 07/09/19 20:06) amiodarone Adverse Reaction (Verified 07/09/19 20:06) Respiratory distress diphenhydramine HCl [From Benadryl] Adverse Reaction (Verified 07/09/19 20:06) chest pain, bigemeny rhythm Review of Systems Constitutional: ABSENT: fatigue, fever(s), weakness Eyes: ABSENT: visual disturbances Ears: ABSENT: hearing changes Nose, Mouth, and Throat: ABSENT: mouth pain Cardiovascular: PRESENT: chest pain, dyspnea on exertion, edema, orthropnea Respiratory: PRESENT: cough, dyspnea. ABSENT: hemoptysis Gastrointestinal: ABSENT: bloating, coffee ground emesis, diarrhea Neurological: ABSENT: numbness Psychiatric: ABSENT: hallucinations Endocrine: ABSENT: flushing Physical Exam Vital Signs: Temp Pulse Resp BP Pulse Ox 99.8 F 83 21 H 146/102 H 96 03/03/20 05:00 03/02/20 22:19 03/03/20 12:00 03/03/20 11:00 03/03/20 12:00 Intake & Output 03/02/20 03/03/20 03/04/20 06:59 06:59 06:59 Weight 101.605 kg General appearance: PRESENT: cooperative, mild distress Head exam: PRESENT: atraumatic, normocephalic Eye exam: PRESENT: EOMI, PERRLA Mouth exam: PRESENT: moist Neck exam: PRESENT: full ROM Respiratory exam: PRESENT: crackles, symmetrical, unlabored Cardiovascular exam: PRESENT: RRR, +S1, +S2 Pulses: PRESENT: +2 pedal pulses bilateral GI/Abdominal exam: PRESENT: normal bowel sounds, soft. ABSENT: rebound, tenderness Extremities exam: PRESENT: +2 edema Musculoskeletal exam: PRESENT: full ROM Neurological exam: PRESENT: alert, awake, oriented to person, oriented to place, oriented to time, oriented to situation Psychiatric exam: PRESENT: normal mood Skin exam: PRESENT: normal color Results Laboratory Results: 03/02/20 22:02 03/02/20 22:02 03/02/20 03/02/20 03/03/20 22:02 22:02 04:00 WBC 9.4 RBC 3.56 L Hgb 11.4 L Hct 34.0 L MCV 95 MCH 32.0 MCHC 33.5 RDW 15.7 H Plt Count 281 Seg Neutrophils % 82.1 H Sodium 140.1 Potassium 3.7 Chloride 104 Carbon Dioxide 28 Anion Gap 8 BUN 20 Creatinine 1.43 H Est GFR ( Amer) 47 L Glucose 163 H Calcium 9.1 Total Bilirubin 1.4 H AST 38 H Alkaline Phosphatase 120 Total Protein 8.0 Albumin 4.5 Urine Color YELLOW Urine Appearance SLIGHTLY-CLOUDY Urine pH 6.0 Ur Specific [place] 1.009 Urine Protein 30 H Urine Glucose (UA) NEGATIVE Urine Ketones NEGATIVE Urine Blood SMALL H Urine Nitrite NEGATIVE Ur Leukocyte Esterase NEGATIVE Urine WBC (Auto) 0 Urine RBC (Auto) 0 03/02/20 03/02/20 22:02 22:02 Creatine Kinase 95 CK-MB (CK-2) 1.21 Troponin I 0.028 NT-Pro-B Natriuret Pep 7460 H Impressions: Chest X-Ray 03/02/20 22:26 IMPRESSION: Multifocal bilateral mid to lower lung zone airspace disease. Considerations include pulmonary edema and/or multifocal pneumonia/viral pneumonitis. Recommend follow-up to clearing. Assessment and Plan - Diagnosis (1) Acute and chronic respiratory failure with hypoxia Is this a current diagnosis for this admission?: Yes Plan: -Came in due to shortness of breath with an O2 sat of low 80s per EMS -Proved to 96% on nonrebreather -History of chronic respiratory failure on 3 to 4 L of oxygen via nasal cannula at home -Currently on BiPAP with 50% a FiO2 saturating 96% -X-ray showed multifocal bilateral mid to lower lung zone airspace disease. -Covid test negative -BNP elevated -Continue O2 support to maintain sats between 93 to 95%. Wean off BiPAP as tolerated -We will treat CHF exacerbation with Lasix (2) Acute on chronic systolic (congestive) heart failure Is this a current diagnosis for this admission?: Yes Plan: - came in due to SOB, - hx of recurrent CHF poorly compliant with diet - has PM with AICD - last Echo EF of 20-25%, follows with Dr. Ragsdale - +ve Grade 1 pitting edema - CXR as above - BNP 7460 - Diurese with lasix 40 IV BID - continue Entresto, aspirin, statin - daily weights - strict IO (3) Acute on chronic renal failure Qualifiers: Acute renal failure type: unspecified Chronic kidney disease stage: stage 3 (moderate) Chronic kidney disease stage 3 subtype: stage 3a (GFR 45-59) Qualified Code(s): N17.9 - Acute kidney failure, unspecified; N18.31 - Chronic kidney disease, stage 3a Is this a current diagnosis for this admission?: Yes Plan: - Crea 1.47 which is around her baseline - will continue to monitor daily (4) Atrial fibrillation Qualifiers: Atrial fibrillation type: unspecified Qualified Code(s): I48.91 - Unspecified atrial fibrillation Is this a current diagnosis for this admission?: Yes Plan: - has a PM with AICD - Rate controlled HR 61 - has a hx of Amiodarone toxicity - continue metoprolol - on eliquis 2.5 BID for AC (5) CAD (coronary artery disease) Qualifiers: Coronary Disease-Associated Artery/Lesion type: [place] artery [place] vs. transplanted heart: [place] heart Associated angina: without angina Qualified Code(s): I25.10 - Atherosclerotic heart disease of [place] coronary artery without angina pectoris Is this a current diagnosis for this admission?: Yes Plan: - Trop 0.028 - EKG A sensed V Paced rhythm - continue aspirin, metoprolol, ISMN - mild increase likely due to CHF exacerbation - will trend troponin (6) COPD (chronic obstructive pulmonary disease) Qualifiers: COPD type: chronic bronchitis Chronic bronchitis type: simple Qualified Code(s): J41.0 - Simple chronic bronchitis Is this a current diagnosis for this admission?: Yes Plan: - chronically on 3-4L of O2 support - not in exacerbation - duoneb PRN (7) Hyperlipidemia Qualifiers: Hyperlipidemia type: unspecified Qualified Code(s): E78.5 - Hyperlipidemia, unspecified Is this a current diagnosis for this admission?: Yes Plan: - continue statin (8) Alcohol abuse Is this a current diagnosis for this admission?: Yes Plan: - last drink 3 days prior - CIWA score adn PRN PO ativan as needed for withdrawal (9) AICD (automatic cardioverter/defibrillator) present Is this a current diagnosis for this admission?: Yes Plan: - for Ischemic Cardiomyopathy with depressed EF - no recent firing - monitor in Tele (10) Morbid obesity Is this a current diagnosis for this admission?: Yes Plan: - advised weight loss and diet modifications (11) Chronic pain Qualifiers: Chronic pain type: other chronic pain Qualified Code(s): G89.29 - Other chronic pain Is this a current diagnosis for this admission?: Yes - Time Time Spent with patient: 25-34 minutes Medications reviewed and adjusted accordingly: Yes Anticipated Discharge Disposition: Home, Self Care Anticipated Discharge Timeframe: tbd
[2020-03-03] MEDS: ACETAMINOPHEN 325 MG TABLET PO PRN ×2 (16:26→18:27)
[2020-03-03] MEDS ORDERED: AMIODARONE HCL 200 MG TABLET PO SCH (18:00)
[2020-03-03] MEDS: ATORVASTATIN CALCIUM 80 MG TABLET PO SCH (18:27)
[2020-03-03] MEDS ORDERED: OXYCODONE-ACETAMINOPHEN 5-325 MG TABLET PO PRN (21:04)
[2020-03-03] MEDS ORDERED: OXYCODONE HCL IR 5 MG TABLET PO PRN (21:05)
[2020-03-03] MEDS: SACUBITRIL/VALSARTAN 49 MG/51 MG TABLET PO SCH (22:24)
[2020-03-03] MEDS: APIXABAN 2.5 MG TABLET PO SCH (22:24)
[2020-03-03] MEDS: FAMOTIDINE 20 MG TABLET PO SCH (22:24)
[2020-03-03] MEDS: BUSPIRONE HCL 10 MG TABLET PO SCH (22:24)
[2020-03-04 05:13] LABS: ABSOLUTE BASOPHILS # (AUTO) 0.1 10^3/uL (0.0-0.2); ABSOLUTE LYMPHOCYTES (AUTO) 1.2 10^3/uL (0.5-4.7); ABSOLUTE MONOCYTES (AUTO) 0.4 10^3/uL (0.1-1.4); ABSOLUTE NEUT (AUTO) 2.5 10^3/uL (1.7-8.2); BASOPHILS % (AUTO) 1.3 % (0-2); EOSINOPHILS % (AUTO) 0.8 % (0-6); HEMATOCRIT 31.4 % (36.0-47.0); HEMOGLOBIN 10.5 g/dL (12.0-15.5); LYMPHOCYTES % (AUTO) 29.4 % (13-45); MEAN CORPUSCULAR HEMOGLOBIN 31.7 pg (27.0-33.4); MEAN CORPUSCULAR HGB CONC 33.3 g/dL (32.0-36.0); MEAN CORPUSCULAR VOLUME 95 fl (80-97); MONOCYTES % (AUTO) 8.4 % (3-13); PLATELET COUNT 193 10^3/uL (150-450); RED CELL DISTRIBUTION WIDTH 15.5 % (11.5-14.0); SEGMENTED NEUTROPHILS % (AUTO) 60.1 % (42-78); TOTAL CELLS COUNTED % (AUTO) 100 %; WHITE BLOOD COUNT 4.2 10^3/uL (4.0-10.5)
[2020-03-04 05:27] LABS: ALBUMIN 3.8 g/dL (3.5-5.0); ALKALINE PHOSPHATASE 80 U/L (38-126); ANION GAP 7 (5-19); ASPARTATE AMINO TRANSFERASE 27 U/L (14-36); BILIRUBIN,DIRECT 0.5 mg/dL (0.0-0.4); BILIRUBIN,TOTAL 1.9 mg/dL (0.2-1.3); BLOOD UREA NITROGEN 22 mg/dL (7-20); CARBON DIOXIDE 34 mmol/L (22-30); CHLORIDE 103 mmol/L (98-107); GLUCOSE 103 mg/dL (75-110); POTASSIUM 3.8 mmol/L (3.6-5.0); TOTAL PROTEIN 6.9 g/dL (6.3-8.2)
[2020-03-04] MEDS: FUROSEMIDE INJ/PF 40 MG/4 ML SDV IV SCH ×2 (09:37→21:34)
[2020-03-04] MEDS: BUSPIRONE HCL 10 MG TABLET PO SCH ×2 (09:38→21:23)
[2020-03-04] MEDS: ASPIRIN 81 MG TABLET, ENT COATED PO SCH (09:38)
[2020-03-04] MEDS: ISOSORBIDE MONONITRATE 30 MG TAB.ER.24H PO SCH (09:38)
[2020-03-04] MEDS: FAMOTIDINE 20 MG TABLET PO SCH ×2 (09:38→21:23)
[2020-03-04] MEDS: APIXABAN 2.5 MG TABLET PO SCH ×2 (09:38→21:23)
[2020-03-04] MEDS: SACUBITRIL/VALSARTAN 49 MG/51 MG TABLET PO SCH ×2 (09:39→21:31)
[2020-03-04] MEDS ORDERED: ACETAMINOPHEN PO PRN (10:24)
[2020-03-04] MEDS ORDERED: [UNRECOGNIZED DRUG - OTHER] PO PRN (10:24)
[2020-03-04] MEDS ORDERED: OXYCODONE HCL PO PRN (10:24)
[2020-03-04] MEDS ORDERED: OXYCODONE HCL IR 5 MG TABLET PO PRN (11:08)
[2020-03-04] MEDS: OXYCODONE-ACETAMINOPHEN 5-325 MG TABLET PO PRN ×2 (12:26→18:18)
--- NOTE | 2020-03-04 14:34 | PDOC PROGRESS REPORT ---
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 Of note patient has been admitted multiple times in the past due to CHF exacerbation last one 01/11/20. According to the patient she was trying to quit drinking alcohol daily but since 2 days ago has noticed increased leg swelling and progressive SOB. She denied any fever or recent COVID exposure. However she did say that she has not adhered to a low salt diet this past holiday. She said she takes her meds daily. EMS was called and she apparently had an O2 sat of low 80s which improved with a nonrebreather. She was also given 40 mg of Lasix. She follows with Dr. Ragsdale In the ED blood pressure was 180/105, heart rate of 61, respiratory rate of 13, sats 96% on 50% FiO2 BiPAP. Covid test was negative CBC showed WBC count of 9.4, hemoglobin of 11.4, platelet of 281. CMP showed creatinine of 1.43 which is around her baseline, BNP 7460. X-ray showed multifocal bilateral mid to lower lung zone airspace disease. Patient was given an additional 60 mg of IV Lasix. Hospitalist service was consulted for further evaluation and management. D2 hospital stay Patient was seen and examined at bedside. Breathing much better, currently at 3L of nasal cannula. Denies any chest pain. afebrile, good appetite. Reason For Visit: ACUTE AND CHRONIC RESPIRATORY FAILURE WITH HYPOXIA Physical Exam Vital Signs: Temp Pulse Resp BP Pulse Ox 98.6 F 62 20 127/77 H 95 03/04/20 11:30 03/04/20 11:30 03/04/20 11:30 03/04/20 11:30 03/04/20 11:30 Intake & Output 03/03/20 03/04/20 03/05/20 06:59 06:59 06:59 Intake Total 667 Output Total 750 Balance -83 Weight 101.605 kg 111.9 kg General appearance: PRESENT: cooperative, mild distress Head exam: PRESENT: atraumatic, normocephalic Eye exam: PRESENT: EOMI, PERRLA Mouth exam: PRESENT: moist Neck exam: PRESENT: full ROM Respiratory exam: PRESENT: rales, symmetrical, unlabored Cardiovascular exam: PRESENT: RRR, +S1, +S2 Pulses: PRESENT: +2 pedal pulses bilateral GI/Abdominal exam: PRESENT: normal bowel sounds, soft. ABSENT: rebound, tenderness Extremities exam: PRESENT: full ROM, +1 edema Musculoskeletal exam: PRESENT: full ROM Neurological exam: PRESENT: alert, awake, oriented to person, oriented to place, oriented to time, oriented to situation Psychiatric exam: PRESENT: normal mood Skin exam: PRESENT: normal color Results Laboratory Results: 03/04/20 04:47 03/04/20 04:47 03/04/20 03/04/20 04:47 04:47 WBC 4.2 RBC 3.30 L Hgb 10.5 L Hct 31.4 L MCV 95 MCH 31.7 MCHC 33.3 RDW 15.5 H Plt Count 193 Seg Neutrophils % 60.1 Sodium 143.6 Potassium 3.8 Chloride 103 Carbon Dioxide 34 H Anion Gap 7 BUN 22 H Creatinine 1.67 H Est GFR ( Amer) 40 L Glucose 103 Calcium 9.0 Total Bilirubin 1.9 H AST 27 Alkaline Phosphatase 80 Total Protein 6.9 Albumin 3.8 03/02/20 03/02/20 03/03/20 22:02 22:02 15:29 Creatine Kinase 95 CK-MB (CK-2) 1.21 Troponin I 0.028 0.042 NT-Pro-B Natriuret Pep 7460 H 03/04/20 09:40 Creatine Kinase CK-MB (CK-2) Troponin I 0.022 NT-Pro-B Natriuret Pep Impressions: Chest X-Ray 03/02/20 22:26 IMPRESSION: Multifocal bilateral mid to lower lung zone airspace disease. Considerations include pulmonary edema and/or multifocal pneumonia/viral pneumonitis. Recommend follow-up to clearing. Assessment and Plan - Diagnosis (1) Acute and chronic respiratory failure with hypoxia Is this a current diagnosis for this admission?: Yes Plan: -Came in due to shortness of breath with an O2 sat of low 80s per EMS -Proved to 96% on nonrebreather -History of chronic respiratory failure on 3 to 4 L of oxygen via nasal cannula at home -Currently on BiPAP with 50% a FiO2 saturating 96% -X-ray showed multifocal bilateral mid to lower lung zone airspace disease. -Covid test negative -BNP elevated -Continue O2 support to maintain sats between 93 to 95%. Wean off BiPAP as tolerated -We will treat CHF exacerbation with Lasix (2) Acute on chronic systolic (congestive) heart failure Is this a current diagnosis for this admission?: Yes Plan: - came in due to SOB, - hx of recurrent CHF poorly compliant with diet - has PM with AICD - last Echo EF of 20-25%, follows with Dr. Ragsdale - +ve Grade 1 pitting edema - CXR as above - BNP 7460 - Diurese with lasix 40 IV BID - continue Entresto, aspirin, statin - daily weights - strict IO (3) Acute on chronic renal failure Qualifiers: Acute renal failure type: unspecified Chronic kidney disease stage: stage 3 (moderate) Chronic kidney disease stage 3 subtype: stage 3a (GFR 45-59) Qualified Code(s): N17.9 - Acute kidney failure, unspecified; N18.31 - Chronic kidney disease, stage 3a Is this a current diagnosis for this admission?: Yes Plan: - Crea 1.47>1.67 which is around her baseline - will continue to monitor daily (4) Atrial fibrillation Qualifiers: Atrial fibrillation type: unspecified Qualified Code(s): I48.91 - Unspecified atrial fibrillation Is this a current diagnosis for this admission?: Yes Plan: - has a PM with AICD - Rate controlled HR 61 - has a hx of Amiodarone toxicity - continue metoprolol - on eliquis 2.5 BID for AC (5) CAD (coronary artery disease) Qualifiers: Coronary Disease-Associated Artery/Lesion type: [place] artery [place] vs. transplanted heart: [place] heart Associated angina: without angina Qualified Code(s): I25.10 - Atherosclerotic heart disease of [place] coronary artery without angina pectoris Is this a current diagnosis for this admission?: Yes Plan: - Trop 0.028 - EKG A sensed V Paced rhythm - continue aspirin, metoprolol, ISMN - mild increase likely due to CHF exacerbation - will trend troponin (6) COPD (chronic obstructive pulmonary disease) Qualifiers: COPD type: chronic bronchitis Chronic bronchitis type: simple Qualified Code(s): J41.0 - Simple chronic bronchitis Is this a current diagnosis for this admission?: Yes Plan: - chronically on 3-4L of O2 support - not in exacerbation - duoneb PRN (7) Hyperlipidemia Qualifiers: Hyperlipidemia type: unspecified Qualified Code(s): E78.5 - Hyperlipidemia, unspecified Is this a current diagnosis for this admission?: Yes Plan: - continue statin (8) Alcohol abuse Is this a current diagnosis for this admission?: Yes Plan: - last drink 3 days prior - CIWA score adn PRN PO ativan as needed for withdrawal (9) AICD (automatic cardioverter/defibrillator) present Is this a current diagnosis for this admission?: Yes Plan: - for Ischemic Cardiomyopathy with depressed EF - no recent firing - monitor in Tele (10) Morbid obesity Is this a current diagnosis for this admission?: Yes Plan: - advised weight loss and diet modifications (11) Chronic pain Qualifiers: Chronic pain type: other chronic pain Qualified Code(s): G89.29 - Other chronic pain Is this a current diagnosis for this admission?: Yes - Time Time Spent with patient: 15-24 minutes Medications reviewed and adjusted accordingly: Yes Anticipated Discharge Disposition: Home with Home Health Anticipated Discharge Timeframe: tbd
[2020-03-04] MEDS: ALPRAZOLAM 0.5 MG TABLET PO SCH ×2 (14:56→21:23)
[2020-03-04] MEDS: ATORVASTATIN CALCIUM 80 MG TABLET PO SCH (17:44)
[2020-03-04] MEDS ORDERED: ALPRAZOLAM 1 MG PO SCH (18:00)
[2020-03-05] MEDS: OXYCODONE-ACETAMINOPHEN 5-325 MG TABLET PO PRN ×2 (01:32→09:04)
[2020-03-05] MEDS: ALPRAZOLAM 0.5 MG TABLET PO SCH ×2 (06:04→13:21)
[2020-03-05 07:08] LABS: ABSOLUTE MONOCYTES (AUTO) 0.3 10^3/uL (0.1-1.4); ABSOLUTE NEUT (AUTO) 2.2 10^3/uL (1.7-8.2); BASOPHILS % (AUTO) 0.8 % (0-2); EOSINOPHILS % (AUTO) 1.2 % (0-6); HEMATOCRIT 31.7 % (36.0-47.0); HEMOGLOBIN 10.5 g/dL (12.0-15.5); LYMPHOCYTES % (AUTO) 27.9 % (13-45); MEAN CORPUSCULAR HGB CONC 33.1 g/dL (32.0-36.0); MEAN CORPUSCULAR VOLUME 94 fl (80-97); MONOCYTES % (AUTO) 8.6 % (3-13); PLATELET COUNT 195 10^3/uL (150-450); RED BLOOD COUNT 3.38 10^6/uL (3.72-5.28); RED CELL DISTRIBUTION WIDTH 15.6 % (11.5-14.0); SEGMENTED NEUTROPHILS % (AUTO) 61.5 % (42-78); TOTAL CELLS COUNTED % (AUTO) 100 %; WHITE BLOOD COUNT 3.5 10^3/uL (4.0-10.5)
[2020-03-05 07:32] LABS: ALBUMIN 3.4 g/dL (3.5-5.0); ALKALINE PHOSPHATASE 67 U/L (38-126); ASPARTATE AMINO TRANSFERASE 19 U/L (14-36); BILIRUBIN,DIRECT 0.3 mg/dL (0.0-0.4); BILIRUBIN,TOTAL 1.2 mg/dL (0.2-1.3); BLOOD UREA NITROGEN 22 mg/dL (7-20); CALCIUM 8.6 mg/dL (8.4-10.2); CHLORIDE 100 mmol/L (98-107); GLUCOSE 107 mg/dL (75-110); POTASSIUM 3.7 mmol/L (3.6-5.0); TOTAL PROTEIN 6.5 g/dL (6.3-8.2)
[2020-03-05 07:38] LABS: CARBON DIOXIDE 36 mmol/L (22-30)
[2020-03-05 07:42] LABS: ANION GAP 4 (5-19)
[2020-03-05] MEDS: ISOSORBIDE MONONITRATE 30 MG TAB.ER.24H PO SCH (09:04)
[2020-03-05] MEDS: ASPIRIN 81 MG TABLET, ENT COATED PO SCH (09:04)
[2020-03-05] MEDS: BUSPIRONE HCL 10 MG TABLET PO SCH (09:04)
[2020-03-05] MEDS: APIXABAN 2.5 MG TABLET PO SCH (09:05)
[2020-03-05] MEDS: SACUBITRIL/VALSARTAN 49 MG/51 MG TABLET PO SCH (09:05)
[2020-03-05] MEDS: FAMOTIDINE 20 MG TABLET PO SCH (09:05)
[2020-03-05] MEDS: FUROSEMIDE INJ/PF 40 MG/4 ML SDV IV SCH (09:06)
[2020-03-05 12:34] VITALS: BP 110/58
--- NOTE | 2020-03-05 13:11 | CDI QUERY ---
CDI Query CDI Review: Documentation in the Medical Record indicates this patient has: Height: 5 ft 5 in Weight: 116.9 kg / 257.18 lbs. Calculated BMI: 42.8 kg/m2 The following is also documented in the Medical Record: Morbid obesity Is this a current diagnosis for this admission?: Yes Plan: - advised weight loss and diet modifications Based on your medical judgement, can you further clarify in the Progress Notes the diagnosis associated with these findings: Morbid Obesity / BMI 42.8 kg/m2 Overweight / BMI 42.8 kg/m2 Obesity / BMI 42.8 kg/m2 Other condition (please specify) None of the above / Not applicable Documentation of BMI in the Progress Notes supports the diagnosis Please note: Obesity is defined as: Class 1: BMI of 30 to < 35 Class 2: BMI of 35 to < 40 Class 3: BMI of > 40 (this is also defined as Morbid Obesity) Overweight: BMI 25 to < 30 Normal weight: BMI 18.5 to < 25 The condition of Morbid Obesity is a significant contributing factor to the health and recovery of a patient. Thank you for your consideration. MUNIR Marinelli RN Clinical Edging Machine Setter Physician Advisor [email or web address]
--- NOTE | 2020-03-06 17:34 | PDOC DISCHARGE SUMMARY ---
Impression - Admit/DC Date/PCP Admission Date/Primary Care Provider: 03/03/20 08:08 YI DANIEL, DO Discharge Date: 03/05/20 - Discharge Diagnosis (1) Acute and chronic respiratory failure with hypoxia Is this a current diagnosis for this admission?: Yes (2) Acute on chronic systolic (congestive) heart failure Is this a current diagnosis for this admission?: Yes (3) Acute on chronic renal failure Is this a current diagnosis for this admission?: Yes (4) Atrial fibrillation Is this a current diagnosis for this admission?: Yes (5) CAD (coronary artery disease) Is this a current diagnosis for this admission?: Yes (6) COPD (chronic obstructive pulmonary disease) Is this a current diagnosis for this admission?: Yes (7) Hyperlipidemia Is this a current diagnosis for this admission?: Yes (8) Alcohol abuse Is this a current diagnosis for this admission?: Yes (9) AICD (automatic cardioverter/defibrillator) present Is this a current diagnosis for this admission?: Yes (10) Morbid obesity Is this a current diagnosis for this admission?: Yes (11) Chronic pain Is this a current diagnosis for this admission?: Yes - Assessment Summary: (1) Acute and chronic respiratory failure with hypoxia Is this a current diagnosis for this admission?: Yes Plan: -Came in due to shortness of breath with an O2 sat of low 80s per EMS -Proved to 96% on nonrebreather -History of chronic respiratory failure on 3 to 4 L of oxygen via nasal cannula at home -Currently on BiPAP with 50% a FiO2 saturating 96% -X-ray showed multifocal bilateral mid to lower lung zone airspace disease. -Covid test negative -BNP elevated -Continue O2 support to maintain sats between 93 to 95%. Wean off BiPAP as tolerated -We will treat CHF exacerbation with Lasix (2) Acute on chronic systolic (congestive) heart failure Is this a current diagnosis for this admission?: Yes Plan: - came in due to SOB, - hx of recurrent CHF poorly compliant with diet - has PM with AICD - last Echo EF of 20-25%, follows with Dr. Ragsdale - +ve Grade 1 pitting edema - CXR as above - BNP 7460 - Diurese with lasix 40 IV BID - continue Entresto, aspirin, statin - daily weights - strict IO (3) Acute on chronic renal failure Qualifiers: Acute renal failure type: unspecified Chronic kidney disease stage: stage 3 (moderate) Chronic kidney disease stage 3 subtype: stage 3a (GFR 45-59) Qualified Code(s): N17.9 - Acute kidney failure, unspecified; N18.31 - Chronic kidney disease, stage 3a Is this a current diagnosis for this admission?: Yes Plan: - Crea 1.47>1.67 which is around her baseline - will continue to monitor daily (4) Atrial fibrillation Qualifiers: Atrial fibrillation type: unspecified Qualified Code(s): I48.91 - Unspecified atrial fibrillation Is this a current diagnosis for this admission?: Yes Plan: - has a PM with AICD - Rate controlled HR 61 - has a hx of Amiodarone toxicity - continue metoprolol - on eliquis 2.5 BID for AC (5) CAD (coronary artery disease) Qualifiers: Coronary Disease-Associated Artery/Lesion type: [place] artery [place] vs. transplanted heart: [place] heart Associated angina: without angina Qualified Code(s): I25.10 - Atherosclerotic heart disease of [place] coronary artery without angina pectoris Is this a current diagnosis for this admission?: Yes Plan: - Trop 0.028 - EKG A sensed V Paced rhythm - continue aspirin, metoprolol, ISMN - mild increase likely due to CHF exacerbation - will trend troponin (6) COPD (chronic obstructive pulmonary disease) Qualifiers: COPD type: chronic bronchitis Chronic bronchitis type: simple Qualified Code(s): J41.0 - Simple chronic bronchitis Is this a current diagnosis for this admission?: Yes Plan: - chronically on 3-4L of O2 support - not in exacerbation - duoneb PRN (7) Hyperlipidemia Qualifiers: Hyperlipidemia type: unspecified Qualified Code(s): E78.5 - Hyperlipidemia, unspecified Is this a current diagnosis for this admission?: Yes Plan: - continue statin (8) Alcohol abuse Is this a current diagnosis for this admission?: Yes Plan: - last drink 3 days prior - CIWA score adn PRN PO ativan as needed for withdrawal (9) AICD (automatic cardioverter/defibrillator) present Is this a current diagnosis for this admission?: Yes Plan: - for Ischemic Cardiomyopathy with depressed EF - no recent firing - monitor in Tele (10) Morbid obesity Is this a current diagnosis for this admission?: Yes Plan: - BMI 42.9 - advised weight loss and diet modifications (11) Chronic pain Qualifiers: Chronic pain type: other chronic pain Qualified Code(s): G89.29 - Other chronic pain Is this a current diagnosis for this admission?: Yes - Additional Information Discharge Diet: Cardiac Discharge Activity: Activity As Tolerated, Balance Activity w/Rest, Weigh Daily Referrals: YI SANCHEZ DO [Primary Care Provider] - 03/12/20 3:15 pm Home Medications: Atorvastatin Calcium [Lipitor 80 mg Tablet] 80 mg PO QPM 02/08/19 Paroxetine HCl [Paxil 20 mg Tablet] 20 mg PO QAM 02/08/19 Apixaban [Eliquis 2.5 mg Tablet] 2.5 mg PO Q12 #0 tablet 07/03/19 Buspirone HCl [Buspar 10 mg Tablet] 10 mg PO Q12 #0 tablet 07/03/19 Famotidine [Pepcid 20 mg Tablet] 20 mg PO Q12 tablet 07/03/19 Aspirin [Ecotrin 81 mg EC Tablet] 81 mg PO QAM 07/10/19 Isosorbide Mononitrate [Imdur 30 mg Tablet.er] 30 mg PO QAM 07/10/19 Metoprolol Succinate [Toprol Xl 25 mg Tab.sr] 50 mg PO QAM 10/29/19 Sacubitril/Valsartan [Entresto 49 mg/51 mg Tablet] 1 tab PO Q12 10/29/19 Alprazolam [Xanax] 1 mg PO TID 03/03/20 Furosemide [Lasix] 60 mg PO QAM 03/03/20 Oxycodone HCl/Acetaminophen [Percocet 7.5-325 mg Tablet] 1 each PO Q6HP PRN 03/03/20 History of Present Illiness History of Present Illness: FRANKI DEL ROSARIO is a 49 year old female, PMH of CHF 2/2 ischemic cariomyopathy, s/p PM with AICD placement, CAD with CABG, COPD, Afib on eliquis, CKD who was brought in due to SOB and swelling. Of note patient has been admitted multiple times in the past due to CHF exacerbation last one 01/11/20. According to the patient she was trying to quit drinking alcohol daily but since 2 days ago has noticed increased leg swelling and progressive SOB. She denied any fever or recent COVID exposure. However she did say that she has not adhered to a low salt diet this past holiday. She said she takes her meds daily. EMS was called and she apparently had an O2 sat of low 80s which improved with a nonrebreather. She was also given 40 mg of Lasix. She follows with Dr. Ragsdale In the ED blood pressure was 180/105, heart rate of 61, respiratory rate of 13, sats 96% on 50% FiO2 BiPAP. Covid test was negative CBC showed WBC count of 9.4, hemoglobin of 11.4, platelet of 281. CMP showed creatinine of 1.43 which is around her baseline, BNP 7460. X-ray showed multifocal bilateral mid to lower lung zone airspace disease. Patient was given an additional 60 mg of IV Lasix. Hospitalist service was consulted for further evaluation and management. Hospital Course Hospital Course: D2 hospital stay Patient was seen and examined at bedside. Breathing much better, currently at 3L of nasal cannula. Denies any chest pain. afebrile, good appetite. D3 hospital stay Patient continued to improve with diuresis and was weaned off bipap to her baseline O2 needs. She was eventually discharged on guideline directed HF meds and was advised to abstain from alcohol. FF up with PCP and Dr. Ragsdale advised. Physical Exam Vital Signs: Temp Pulse Resp BP Pulse Ox 98.0 F 60 18 110/58 L 99 03/05/20 12:00 03/05/20 14:00 03/05/20 12:00 03/05/20 12:00 03/05/20 12:00 Intake & Output 03/05/20 03/06/20 03/07/20 06:59 06:59 06:59 Intake Total 1071 490 Output Total 2250 Balance -1179 490 Weight 116.9 kg General appearance: PRESENT: cooperative, mild distress, morbidly obese Head exam: PRESENT: atraumatic, normocephalic Eye exam: PRESENT: EOMI, PERRLA Mouth exam: PRESENT: moist Neck exam: PRESENT: full ROM Respiratory exam: PRESENT: clear to auscultation renu, symmetrical, unlabored Cardiovascular exam: PRESENT: RRR, +S1, +S2 GI/Abdominal exam: PRESENT: normal bowel sounds, soft. ABSENT: rebound, tenderness Extremities exam: PRESENT: full ROM, +1 edema Musculoskeletal exam: PRESENT: full ROM Neurological exam: PRESENT: alert, awake, oriented to person, oriented to place, oriented to time, oriented to situation Skin exam: PRESENT: normal color Results Laboratory Results: WBC 3.5 10^3/uL (4.0-10.5) L 03/05/20 06:34 RBC 3.38 10^6/uL (3.72-5.28) L 03/05/20 06:34 Hgb 10.5 g/dL (12.0-15.5) L 03/05/20 06:34 Hct 31.7 % (36.0-47.0) L 03/05/20 06:34 MCV 94 fl (80-97) 03/05/20 06:34 MCH 31.0 pg (27.0-33.4) 03/05/20 06:34 MCHC 33.1 g/dL (32.0-36.0) 03/05/20 06:34 RDW 15.6 % (11.5-14.0) H 03/05/20 06:34 Plt Count 195 10^3/uL (150-450) 03/05/20 06:34 Lymph % (Auto) 27.9 % (13-45) 03/05/20 06:34 [place] % (Auto) 8.6 % (3-13) 03/05/20 06:34 Eos % (Auto) 1.2 % (0-6) 03/05/20 06:34 Baso % (Auto) 0.8 % (0-2) 03/05/20 06:34 Absolute Neuts (auto) 2.2 10^3/uL (1.7-8.2) 03/05/20 06:34 Absolute Lymphs (auto) 1.0 10^3/uL (0.5-4.7) 03/05/20 06:34 Absolute Monos (auto) 0.3 10^3/uL (0.1-1.4) 03/05/20 06:34 Absolute Eos (auto) 0.0 10^3/uL (0.0-0.6) 03/05/20 06:34 Absolute Basos (auto) 0.0 10^3/uL (0.0-0.2) 03/05/20 06:34 Seg Neutrophils % 61.5 % (42-78) 03/05/20 06:34 Sodium 139.7 mmol/L (137-145) 03/05/20 06:34 Potassium 3.7 mmol/L (3.6-5.0) 03/05/20 06:34 Chloride 100 mmol/L (98-107) 03/05/20 06:34 Carbon Dioxide 36 mmol/L (22-30) H 03/05/20 06:34 Anion Gap 4 (5-19) L 03/05/20 06:34 BUN 22 mg/dL (7-20) H 03/05/20 06:34 Creatinine 1.57 mg/dL (0.52-1.25) H 03/05/20 06:34 Est GFR ( Amer) 43 (>60) L 03/05/20 06:34 Est GFR (MDRD) Non-Af 35 (>60) L 03/05/20 06:34 Glucose 107 mg/dL (75-110) 03/05/20 06:34 Calcium 8.6 mg/dL (8.4-10.2) 03/05/20 06:34 Total Bilirubin 1.2 mg/dL (0.2-1.3) 03/05/20 06:34 Direct Bilirubin 0.3 mg/dL (0.0-0.4) 03/05/20 06:34 Neonat Total Bilirubin Not Reportable 03/05/20 06:34 Neonat Direct Bilirubin Not Reportable 03/05/20 06:34 Neonat Indirect Bili Not Reportable 03/05/20 06:34 AST 19 U/L (14-36) 03/05/20 06:34 ALT 16 U/L (<35) 03/05/20 06:34 Alkaline Phosphatase 67 U/L (38-126) 03/05/20 06:34 Creatine Kinase 95 U/L (30-135) 03/02/20 22:02 CK-MB (CK-2) 1.21 ng/mL (<4.55) 03/02/20 22:02 Troponin I 0.022 ng/mL 03/04/20 09:40 NT-Pro-B Natriuret Pep 7460 pg/mL (<125) H 03/02/20 22:02 Total Protein 6.5 g/dL (6.3-8.2) 03/05/20 06:34 Albumin 3.4 g/dL (3.5-5.0) L 03/05/20 06:34 Urine Color YELLOW 03/03/20 04:00 Urine Appearance SLIGHTLY-CLOUDY 03/03/20 04:00 Urine pH 6.0 (5.0-9.0) 03/03/20 04:00 Ur Specific [place] 1.009 03/03/20 04:00 Urine Protein 30 mg/dL (NEGATIVE) H 03/03/20 04:00 Urine Glucose (UA) NEGATIVE mg/dL (NEGATIVE) 03/03/20 04:00 Urine Ketones NEGATIVE mg/dL (NEGATIVE) 03/03/20 04:00 Urine Blood SMALL (NEGATIVE) H 03/03/20 04:00 Urine Nitrite NEGATIVE (NEGATIVE) 03/03/20 04:00 Urine Bilirubin NEGATIVE (NEGATIVE) 03/03/20 04:00 Urine Urobilinogen NEGATIVE mg/dL (<2.0) 03/03/20 04:00 Ur Leukocyte Esterase NEGATIVE (NEGATIVE) 03/03/20 04:00 Urine WBC (Auto) 0 /HPF 03/03/20 04:00 Urine RBC (Auto) 0 /HPF 03/03/20 04:00 Urine Bacteria (Auto) TRACE /HPF 03/03/20 04:00 Squamous Epi Cells Auto 1 /HPF 03/03/20 04:00 Urine Ascorbic Acid NEGATIVE (NEGATIVE) 03/03/20 04:00 03/02/20 03/03/20 03/04/20 22:02 15:29 09:40 CK-MB (CK-2) 1.21 Troponin I 0.028 0.042 0.022 NT-Pro-B Natriuret Pep 7460 H Impressions: Chest X-Ray 03/02/20 22:26 IMPRESSION: Multifocal bilateral mid to lower lung zone airspace disease. Considerations include pulmonary edema and/or multifocal pneumonia/viral pneumonitis. Recommend follow-up to clearing. Plan Plan of Treatment: Congestive Heart Failure You have been diagnosed as having congestive heart failure (CHF). CHF occurs when the heart is unable to pump blood efficiently, leading to fluid buildup in the veins and lungs. Typical symptoms are swelling of the legs, shortness of breath on minor exertion, and fatigue. CHF is treated with salt restriction, medicine to eliminate excess water and salt from the body, and medication to help the heart contract more efficiently. Eliminate added salt and salty foods in your diet. Decrease your activity until excess fluid has been eliminated. It will also be helpful to raise the head of your bed so you can sleep more easily. Keep a daily record of your weight. This will help your physician monitor your progress. Once extra water has been eliminated, light aerobic exercise daily -- such as walking -- will be helpful (unless your physician has told you to restrict activity for other reasons). Be sure to follow up with the physician as instructed. Contact the doctor at once if you worsen in any way. Stroke Is this a Stroke Patient?: No Acute Heart Failure Is this a Heart Failure Patient?: Yes Documentation of LVEF assessment?: Yes LVEF: LVEF Less Than or Equal to 35% Anticoagulant Therapy: Yes Discharged on Evidence-Based Beta Blockers: Yes Discharged on ARNI?: Yes For LVEF <35%, discharged on Aldosterone Antagonist?: No-document contraincati ons Reason(s) not discharged on Aldosterone Antagonist: Renal dysfunction (creatinine >2.5 mg/dL in men or 2.0 mg/dL in women) Follow-up Appointment scheduled within 7 days?: Yes
== END 2020-03-05 16:30 | disposition home or self-care (01) | DRG 291 ==
LOC: ER 21:36 → EH 03-03 08:05 → UNDOADMIN 03-03 08:05 → EH 03-03 08:08 → 3S 03-03 16:39
PROVIDERS: ADMIT Internal Medicine; ATTEND Internal Medicine
PROC: 5A09457 Assistance with Respiratory Ventilation, 24-96 Consecutive Hours, Continuous Positive Airway Pressure (ICD-10-PCS; principal; 2020-03-02)
DX: I13.0 Hypertensive heart and chronic kidney disease with heart failure and stage 1 through stage 4 chronic kidney disease, or unspecified chronic kidney disease (principal); I50.23 Acute on chronic systolic (congestive) heart failure; Z68.41 Body mass index [BMI] 40.0-44.9, adult; N18.31 Chronic kidney disease, stage 3a; E78.5 Hyperlipidemia, unspecified; G89.29 Other chronic pain; I25.5 Ischemic cardiomyopathy; F10.10 Alcohol abuse, uncomplicated; I25.10 Atherosclerotic heart disease of native coronary artery without angina pectoris; I48.91 Unspecified atrial fibrillation; F32.9 Major depressive disorder, single episode, unspecified; E66.01 Morbid (severe) obesity due to excess calories; J41.0 Simple chronic bronchitis; F41.9 Anxiety disorder, unspecified; Z86.14 Personal history of Methicillin resistant Staphylococcus aureus infection; Z95.1 Presence of aortocoronary bypass graft; Z95.5 Presence of coronary angioplasty implant and graft; Z79.899 Other long term (current) drug therapy; Z95.810 Presence of automatic (implantable) cardiac defibrillator; Z79.01 Long term (current) use of anticoagulants; Z82.3 Family history of stroke; Z83.3 Family history of diabetes mellitus; Z82.49 Family history of ischemic heart disease and other diseases of the circulatory system; Z79.82 Long term (current) use of aspirin; Z91.012 Allergy to eggs; Z88.8 Allergy status to other drugs, medicaments and biological substances; Z88.5 Allergy status to narcotic agent
CPT/HCPCS: 36415; 71045; 80053; 81001; 82550; 82553; 83880; 84484; 85025; 93005; 93010; 94660; 96374; 96375; 99285; J1940; J2405